=== PATIENT | female | born 1960 | race Caucasian/White ===

== ENCOUNTER → 2017-07-25 10:05 | Outpatient (CLI) | payer MEDICAID, SELFPAY ==
--- NOTE | 2017-07-25 10:14 | STE_ITS ---
Reason For Study: HUGO Stress Results Protocol: Dobutamine Maximum Predicted HR: 165 bpm Target HR: 140 bpm% Maximum Predicted HR: 85 % DurationHeart Rate Stage (mm:ss) (bpm) BPDos e Comment BASELINE 83 135/78 .3 CC DEFINITY STAGE 1 3:00 86 144/9010.00.2 CC DEFINITY STAGE 2 3:00 11 6 171/7320.00 STAGE 3 3:00 13 3 130/7730.00 STAGE 4 1:34 14 1 / 40. 00.2CC DEFINITY,.25 MG ATROPINE RECOVERY 104 122/7 5 .1CC DEFINITY Stress Duration: 10:34 mm:ss Maximum Stress HR: 141 bpm Baseline Echocardiogram Findings Stress Echo Wall motion Data Resting WMIntermediate WMStress WM Resting Wall Motion Wall Motion Int. Wall Motion Stress All segments Normal. All segments Hyperkinetic. All segments Hyperkinetic. Ejection Fraction 55 %. Ejection Fraction 65 %. Ejection Fraction 75 %. Stress Results Arrhythmias: Rare PVCs during recovery Stopped secondary to: Target heart rate achieved. EKG Data The baseline ECG displays normal sinus rhythm. Peak pharmacologic ECG: No obvious ECG changes. Symptoms with Stress No c/o chest pain during pharmacologic infusion / recovery. Interpretation Summary Negative (Adequate) Dobutamine Stress Echocardiogram Ordering Physician: Nikolai Heart Referring Physician: LESLYE Heart M.D. Performed By: Aimee Nixon RDCS
== END ==
PROVIDERS: Family Provider Family Medicine; PCP Family Medicine; Visit Provider Family Medicine
DX: R06.09 Other forms of dyspnea (principal)
CPT/HCPCS: 93017; 93350; J7030; Q9957; A4216; C8928

== ENCOUNTER 2017-11-29 16:36 | Emergency (ER) | payer MEDICAID, SELFPAY ==
[2017-11-29 16:36] VITALS: BP 124/78; PULSE 76; RESP 15; TEMP 37.2; O2SAT 93; O2SAT 96; BMI 44.9
--- NOTE | 2017-11-29 16:39 | RAD_ITS ---
STUDY: X-RAY CHEST REASON FOR EXAM: Female, 56 years old. Shortness of breath TECHNIQUE: Frontal view of the chest COMPARISON: 04/25/2017 FINDINGS: The lungs are clear. There are no pleural effusions. There is no pneumothorax. The heart is normal in size. The visualized osseous structures are within normal limits. RAD/Chest 1 View (Portable) IMPRESSION: No acute thoracic pathology. Electronically Signed: Murray Yousif, at 17:48 EDT Tel , Service support ,
--- NOTE | 2017-11-29 16:39 | EKG12_ITS ---
Test Reason : SOB Blood Pressure : / mmHG Vent. Rate : 063 BPM Atrial Rate : 063 BPM P-R Int : 190 ms QRS Dur : 106 ms QT Int : 422 ms P-R-T Axes : 053 091 076 degrees QTc Int : 431 ms Normal sinus rhythm Normal ECG Confirmed by BIPIN WEIR, EDWIN ([id number]), dictionary editor VIVIAN CANDELARIA ([id number]) on 12/03/2017 3:46:45 PM Referred By: Lowell Herrera Confirmed By:EDWIN VOSS MD
[2017-11-29 16:41] VITALS: O2SAT 95
[2017-11-29] MEDS: MethylPREDNISolone 125 MG/2 ML Vial IV (16:50)
[2017-11-29 16:52] VITALS: PULSE 78; RESP 20
[2017-11-29] MEDS: Ipratropium/Albuterol Sulfate 3 ML AMPUL.NEB INHALATION (16:52)
[2017-11-29] MEDS: Albuterol 2.5 MG/3 ML VIAL.NEB. INHALATION ×2 (16:52)
--- NOTE | 2017-11-29 16:55 | ED.DCSUM_ITS ---
- ER Visit Summary Date of Service: 11/29/17 Chief Complaint: Cough, shortness of breath History of Present Illness: The patient is a 56 F Zentz to the emergency department with cough and shortness of breath. Patient has a history of reactive airway disease. She is unsure if it COPD or asthma. She does have a significant smoking history. She states over the past 24 hours, she has had some increased wheezing. She has been using her nebulizer with little relief. She denies any chest pain or chest tightness. She denies any hemoptysis. She has no history of pulmonary embolus. She does currently still smoke. Last time that she was on prednisone was approximately 4 weeks ago. Physical Examination: Vital signs reviewed General: Well-nourished, well-developed Head: Normocephalic, atraumatic Eyes: Pupils equal and reactive, extraocular muscles intact Neck, supple, no lymphadenopathy Heart: Regular rate and rhythm Respiratory: No distress, wheezing in all blackman Abdomen: Soft, nontender, nondistended, no peritoneal signs Back: Nontender Extremities: Nontender, no edema, no cords Skin: Normal color no rash Neuro: Alert and oriented, no focal or lateralizing deficits Test Results: [] Emergency Department Course and Treatment: EKG was obtained on patient arrival. There was no evidence of acute ischemic change. Her chest x-ray shows no evidence of pneumonia, volume overload, or enlarged cardiac silhouette. Patient was given IV Solu-Medrol, nebulized breathing treatments, and on reevaluation her aeration had markedly improved. She is resting comfortably. She was able to ambulate without hypoxia. She also had no tachypnea. The patient had some increasing sputum. I do feel that she likely has underlying COPD. She will be treated with steroids and antibiotics. Given the marked improvement, I do feel that she is safe for outpatient therapy. She is comfortable with this plan of care. Patient will be discharged home. Treatment Plan: [] Disposition: Discharge Impression: 1. COPD exacerbation This note was generated with [facility] dictation software. It may contain incorrect words, spelling, and punctuation that were not noted in review of the chart prior to signing ED Disposition - Plan for ED Patient: Chief Complaint: Shortness of Breath Instructions: ED Upper Resp Infec Abx Tx Prescriptions: Azithromycin [Zithromax] 250 mg PO DAILY #4 tab Prednisone 10 mg PO UD #33 tab Referrals: Nikolai Heart III, MD [Primary Care Provider] -
[2017-11-29 16:58] LABS: Absolute Lymphocyte Count 2.66 X10^3/ul (0.83-4.51); Absolute Neutrophil Count 3.6 X10^3/uL (2.0-7.7); Basophil# 0.03 X10^3/uL; Basophil% 0.4 % (0-1); Hematocrit 43.5 % (37-47); Hemoglobin 14.9 g/dl (12.0-15.0); Lymphocyte # 2.66 X10^3/ul (4.0); Mean Corp Hgb Conc 34.3 g/gl (32-36); Mean Corpuscular Hgb 31.2 pg (27.0-32.0); Monocyte# 0.55 X10^3/uL; Monocyte% 8.1 % (0-10); Neutrophil # 3.56 X10^3/uL (2.7-7.7); Neutrophil % 52.2 % (47-70); Platelet Count 168 K/mm3 (150-450); RBC Distribution Width CV 13.6 % (11.6-14.6); RBC Distribution Width SD 45.4 fl (35.1-43.9); Red Blood Count 4.78 M/mm3 (4.2-5.4); White Blood Count 6.8 K/mm3 (4.4-11.0)
[2017-11-29 16:59] LABS: POSITIVE COUNT NO; POSITIVE DIFFERENTIAL NO; POSITIVE MORPHOLOGY NO
[2017-11-29 17:47] VITALS: BP 156/71; PULSE 70; RESP 21; O2SAT 95
[2017-11-29 17:47] LABS: Anion Gap 7 (5-15); BUN 16 mg/dL (7-18); Calcium,Total 8.5 mg/dL (8.5-10.1); Chloride 107 mmol/L (98-107); EST Glomerular Filtration Rate 93 mL/min (>60); Est Glom Filt Rate - Afr Amer 112 mL/min (>60); Estimated Creatinine Clearance 85.01 ml/min; Glucose 98 mg/dL (74-106); Potassium 3.3 mmol/L (3.5-5.1); Sodium Level 141 mmol/L (136-145)
[2017-11-29] MEDS: Azithromycin 250 MG Tablet 500 MG PO (17:56)
== END 2017-11-29 17:57 | disposition home or self-care (01) ==
LOC: ED 16:44
PROVIDERS: Emergency Provider Emergency Medicine; Family Provider Family Medicine; PCP Family Medicine
DX: J44.1 Chronic obstructive pulmonary disease with (acute) exacerbation (principal); E66.9 Obesity, unspecified; I10 Essential (primary) hypertension; Z72.0 Tobacco use; F41.9 Anxiety disorder, unspecified
CPT/HCPCS: 71045; 80048; 84484; 85025; 93005; 94640; 96374; 99285; A4216

== ENCOUNTER → 2018-09-30 07:33 | Outpatient (CLI) | payer MEDICAID, SELFPAY ==
--- NOTE | 2018-09-30 | BRBX_PTH ---
PATIENT: SANTY RAZA LOC: [facility] U#:[id number] AGE/SX: 64/F ROOM: RE09/30/[address]: Dr. Bret Hamilton MD : 1960 BED: DIS: SPEC #: [id number] RECD: 09/30/18 14:23 STATUS: BHAKTI REAngel #: [id number] NATHALIA: 09/30/18 00:[address]: Bret Hamilton DEPT: SURGICAL PATHOLOGY RECD BY: Barrett Kirk ENTERED: 09/30/18 14:23 SP TYPE: BREAST BX OTHR DR: Dr. Nikolai Heart III, MD Tissues: Left breast, NOS Procedures: Surgery Specimen Level IV HEADER OPERATION: Left breast stereotactic needle core biopsy PRE-OP DIAGNOSIS: Calcifications left breast superior lateral anterior depth TISSUE SUBMITTED: Left breast core tissue ISCHEMIC TIME: 1 minute FIXATION TIME: 10 hours MICROSCOPIC DIAGNOSIS Left breast, superior lateral anterior depth calcification, stereotactic needle core biopsy: Fragments of benign breast tissue with focal fat necrosis, fibrosis, chronic inflammation and dystrophic calcifications. Negative for atypia or malignancy. DAVID:odalys 10/01/18 COMMENT Correlation with clinical, radiologic findings and appropriate follow up are necessary. MICROSCOPIC DESCRIPTION Slides are reviewed. GROSS DESCRIPTION Received is one container labeled with the patient's name and not further designated. The specimen consists of multiple elongated fragments of knowles-yellow fibroadipose tissue that in aggregate measure 3 x 2.5 x 0.3 cm. The entire specimen is submitted in one cassette. / DAVID:odalys 09/30/18 TC:5 CPT: 19898
--- NOTE | 2018-09-30 09:26 | PCM.HP.BLA ---
History and Physical Date of Admission: 09/30/18 HISTORY AND PHYSICAL - BREAST COMPLAINT ? Maria Guadalupe Moffett 1960 ? ? REFERRING PHYSICIAN: ??Nikolai Heart III, MD ? CHIEF COMPLAINT:???Left breast microcalcifications ? HPI: The patient is a 57 year old female with a complaint of?an abnormal mammogram. ?The patient had an initial screening?mammogram on August 25, 2018 with follow-up left diagnostic mammogram on September 09, 2018 which demonstrated : ? IMPRESSION: SUSPICIOUS FINDING - BIOPSY SHOULD BE CONSIDERED The multiple grouped pleomorphic calcifications in the left breast are suspicious of malignancy. ?A stereotactic biopsy is recommended. SUMMARY: The finding and recommendation for biopsy was discussed with the patient following the exam. The patient is scheduled for surgical consultation with Dr. Hamilton on 09/11/18 at 3:00pm. Gio hernadez/arnold:09/09/2018 09:13:10 Grease Renderer: Arnold Transcribe Date/Time: Sep 09 2018 ?8:20A Dictated by: GIO VILLAR MD This examination was interpreted and the report reviewed and electronically signed by: GIO VILLAR MD on Sep 09 2018 ?9:13AM ?EST ? ? Results-Findings ? * * *Final Report* * * DATE OF EXAM: Sep 09 2018 ?8:20AM ? WRW ??[id number] ?- ?[facility] ?/ PROCEDURE REASON: Inconclusive mammogram ? * * * * Physician Interpretation * * * * RESULT: #[id number] - [facility] UNILATERAL LEFT DIGITAL DIAGNOSTIC MAMMOGRAM WITH CAD: 09/09/2018 HISTORY: Left diagnostic // abnormal mammogram. RESULT: TECHNIQUE: The study was acquired using full field digital technology and interpreted from soft copy. Current study was also evaluated with a Computer Aided Detection (CAD). Comparison is made to exams dated: ?08/25/2018 mammogram, 07/23/2017 mammogram, and 07/21/2015 mammogram - [facility]. ?There are scattered fibroglandular elements in left breast. There are multiple grouped pleomorphic calcifications in the left breast superior lateral quadrant anterior depth. ??These span 0.5cm in greatest dimenstion and are new from prior mammograms. There are changes of prior reduction mammoplasty and these calcifications could be related to fat necrosis however malignant calcifications are not excluded. No other significant masses or calcifications are seen in the breast. ? ? The patient denies a history of breast masses. ?She does??perform a self breast exam routinely. ?She notes no skin changes. ?She denies nipple discharge. ?She notes no axillary masses. ?She notes no family history of breast problems. ?She notes no significant breast trauma or breast difficulties in the past. ?She did have bilateral breast reduction in 2016. ? ? The patient is being seen by me today at the request of ?for my opinion and advice regarding left breast microcalcifications.? ? PAST?MEDICAL?HISTORY PAST MEDICAL HISTORY Diagnosis Date ? Allergic rhinitis, cause unspecified ? ? Central perforation of tympanic membrane, bilateral ? ? Essential hypertension, benign ? ? Hypothyroidism 09/26/2015 ? Mixed conductive and sensorineural hearing loss ? ? Obstructive sleep apnea ? ? Other anxiety states ? ? Perforated tympanic membrane 03/29/2011 ? Snoring ? ? Synovitis and tenosynovitis, unspecified ? ? Tobacco abuse 03/23/2012 ? PAST?SURGICAL?HISTORY PAST SURGICAL HISTORY Procedure Laterality Date ? INCISION EARDRUM,ASPIR,GEN ANESTH ? ? ? Myringotomy/tubes ? LIGATE FALLOPIAN TUBE ? ? ? Tubal ligation ? REDUCTION OF LARGE BREAST ? 04/23/2016 ? ? ? CURRENT?MEDICATIONS ? Current Outpatient Medications: albuterol (PROVENTIL) 2.5 mg /3 mL (0.083 %) nebulizer solution Use 3 mL via nebulizer every 4 hours as needed for Wheezing/Shortness of Breath. Use over 5-15minutes. Disp: 1 Package Rfl: 2 furosemide (LASIX) 20 mg tablet Take 1 tablet by mouth once daily. Disp: 30 tablet Rfl: 11 beclomethasone (QVAR REDIHALER) 80 mcg/actuation inhaler Inhale 1 Puff as instructed twice daily. Disp: 1 Inhaler Rfl: 11 lisinopril (ZESTRIL, PRINIVIL) 5 mg tablet Take 1 tablet by mouth once daily. Disp: 90 tablet Rfl: 1 amitriptyline (ELAVIL) 25 mg tablet Take 1 tablet by mouth daily at bedtime. Disp: 90 tablet Rfl: 1 Nebulizer 1 Each as needed. NEBULIZER TUBING AND SUPPLIES. ?DX: CHRONIC BRONCHITIS J41.1, WHEEZING R06.2. [phone] Disp: 1 Each Rfl: 11 Nebulizer 1 Device every 4 hours as needed. NEBULIZER FOR HOME USE. ?DX: chronic bronchitis ?J41.1tubing and supplies for nebulizer Disp: 1 Device Rfl: 0 citalopram (CELEXA) 20 mg tablet take 1 tablet by mouth once daily Disp: 90 tablet Rfl: 1 tiZANidine (ZANAFLEX) 4 mg tablet Take 1 tablet by mouth twice daily. Disp: 180 tablet Rfl: 1 etodolac (LODINE) 400 mg tablet Take 1 tablet by mouth twice daily. Disp: 180 tablet Rfl: 1 lansoprazole (PREVACID) 15 mg capsule take 1 capsule by mouth once daily Disp: 90 capsule Rfl: 4 umeclidinium (INCRUSE ELLIPTA) 62.5 mcg/actuation inhaler Inhale 1 Puff as instructed once daily. Inhale one puff once daily. DO NOT CLICK OPEN UNTIL READY FOR DOSE Disp: 1 Each Rfl: 11 levothyroxine (SYNTHROID) 125 mcg tablet take 1 tablet by mouth every morning ON AN EMPTY STOMACH FOR THYROID Disp: 90 tablet Rfl: 2 cetirizine (ZYRTEC) 10 mg tablet Take 1 tablet by mouth once daily. Disp: 30 tablet Rfl: 3 Docusate Sodium (DOK) 100 mg tab Take 100 mg by mouth twice daily as needed. Disp: Rfl: albuterol HFA (VENTOLIN HFA) 90 mcg/actuation inhaler Inhale 2 Puffs as instructed every 4 hours as needed for Wheezing/Shortness of Breath. Disp: 3 Inhaler Rfl: 1 ondansetron orally disintegrating (ZOFRAN ODT) 4 mg disintegrating tablet Take 1 tablet by mouth every 6 hours as needed for Nausea/Vomiting. Disp: 10 tablet Rfl: 1 fluticasone (FLONASE) 50 mcg/actuation nasal spray Use 2 Sprays in each nostril once daily. Rinse mouth after use. Disp: 1 Bottle Rfl: 11 COMPOUNDED PRESCRIPTION Nebulizer for albuterol every fours as neededICD: R06.2 Disp: 1 Device Rfl: 0 CPAP autoCPAP 5-15 cmH2O, mask, tubing, filters, heated humidity, lifetime supplies. Dx: TRINI Disp: 1 Device Rfl: 0 ? No current facility-administered medications for this visit.? ? ALLERGIES:?Codfish [Other]; Doxycycline Monohydrate; Hctz [Other]; Levaquin [Levofloxacin]; Peanuts ? PERSONAL HISTORY:? SOCIAL?HISTORY Social History ??Socioeconomic History ?Marital status: ?Spouse name: Not on file ?Number of children: Not on file ?Years of education: Not on file ?Highest education level: Not on file ??Social Needs ?Financial resource strain: Not on file ?Food insecurity - worry: Not on file ?Food insecurity - inability: Not on file ?Transportation needs - medical: Not on file ?Transportation needs - non-medical: Not on file ??Occupational History ?Not on file ??Tobacco Use ?Smoking status: Former Smoker ?Packs/day: 0.50 ?Types: Cigarettes ?Quit date: 09/22/2017 ?Years since quittin.9 ?Smokeless tobacco: Never Used ??Substance and Sexual Activity ?Alcohol use: No ?Drug use: No ?Sexual activity: Not on file ??Other Topics ?Concerns: ?Not on file ??Social History Narrative ?grand daughter Colby is chunky monkey ?daughter Deeanne ?Merry ?? ? FAMILY HISTORY:? FAMILY?HISTORY FAMILY HISTORY Problem Relation Age of Onset ? Coronary Artery Disease Mother ?PE ? Asthma Mother ? ? Multiple Sclerosis Mother ? ? Coronary Artery Disease Sister ? ? Coronary Artery Disease Brother ? ? None Brother ? ? ? REVIEW OF SYMPTOMS: ??The review of systems data was entered by the nurse and reviewed by me ? Nursing Notes: Josh Orozco LPN ?09/11/2018 ?2:58 PM ?Signed REVIEW OF SYSTEMS: ?General:???The patient NOTES fatigue, denies weight loss, NOTES weight gain, NOTES feeling hot, and denies feelings of cold. ?Eyes: ?The patient denies glaucoma, denies eye injury/surgery, wears glasses or contacts. ?Ear/Nose/Throat: ?The patient denies allergies, NOTES hayfever, NOTES ear infections, and denies bloody noses. ?Cardiovascular: ?The patient denies chest pain, denies heart disease, NOTES high blood pressure,denies cardiac stent, denies prior heart attack, denies irregular heart beat, NOTES high cholesterol, ?denies poor circulation, denies heart failure, other cardiac issues, denies claudication, denies cold feet, denies peripheral arterial stent. ?Respiratory: ?The patient denies tuberculosis, denies pneumonia, NOTES frequent cough, denies pulmonary embolism, NOTES shortness of breath, and denies coughing up blood. ?Gastrointestinal: ?The patient denies difficulty swallowing, NOTES acid reflux, denies ulcers, denies vomiting, denies jaundice/hepatitis, denies gallbladder problems, denies black or tarry stools, denies hemorrhoids, denies bleeding from rectum, denies diverticulitis, denies constipation, denies diarrhea, denies loss of stool control, and denies hernias. ?Kidney/Bladder: ?The patient denies kidney stones, denies urine infections, and denies bloody urine. ?Skin: ?The patient denies a history of skin cancer, denies bleeding/changing moles, and denies a history of skin rash. ?Neurologic: ?The patient denies a history of epilepsy/convulsions, denies headaches, denies head/spinal injuries, and denies stroke/TIA. ?Psychiatric: ?The patient denies psychiatric medications, NOTES depression, and denies voices, denies substance abuse. ?Endocrine: ?The patient NOTES thyroid disorders, denies diabetes, and denies hormonal problems. ?Hematologic: ?The patient denies a history of bruising, denies bleeding, and denies anemia, denies blood clots. ?Infections: ?The patient denies a history of measles and mumps, denies rheumatic fever, and denies sexually transmitted diseases. ?Musculoskeletal: ?The patient NOTES back pain/injury, NOTES back problems, denies sciatica, denies knee/foot trouble, denies arthritis, or denies gout. ? ? When was patient's last Mammogram screening? 09/01 ? ?Last Colonoscopy: ?N/A ? Josh Orozco LPN ? PHYSICAL EXAMINATION: ? General: ?The patient is 57 year old female, well nourished, well hydrated in no acute distress. ?The patient is oriented to time, place, and person. ? VITALS:?Blood pressure 154/92, pulse 103, temperature 36.6 ?C (97.8 ?F), temperature source Temporal Artery, height 167.6 cm (5' 6), weight 127.2 kg (280 lb 6.4 oz), last menstrual period 09/14/2013, SpO2 94 %.?Body mass index is 45.26 kg/m?.? ? HEENT: ?Normal cephalic, ataumatic, pupils are equally round, sclera are anicteric, mucous membranes are moist, oropharynx is clear. ?Neck has no masses, asymmetry or lymphadenopathy. ?Thyroid is unremarkable. ? Respiratory: ?Clear to auscultation and percussion. ?Normal respiratory excursion and pattern. ? Cardiac: ?Examination is regular rate and rhythm. ? Abdominal exam: ?Soft, nontender, ?with no palpable masses. ?No hepatosplenomegaly. ?No palpable hernias. ? Rectal exam: ?exam deferred Extremities: ?no clubbing, cyanosis or edema. ?No adenopathy. ? Breast: ?Visual inspection reveals no retractions, nipple inversion, or skin changes. ?Palpation of the right breast reveals no dominant or suspicious masses. ?Palpation of the left breast reveals no dominant or suspicious masses. ?Axillary exam demonstrates no suspicious masses in either the left or right axilla. ?There is no nipple discharge expressed from either the left or right breast. ? LABORATORY VALUES: As Noted ? RADIOLOGIC STUDIES: ?As Noted ? Assessment ? IMPRESSION: Left breast microcalcifications ? PLAN:??I plan to perform a?stereotactic biopsy of the left breast. ?The planned surgical procedure was discussed extensively with the patient. ?The risks, benefits, anticipated outcomes and possible complications were mentioned. ?My staff has also explained the procedure in understandable terms and the patient was given the option to take printed material concerning the planned procedure. ?The patient had the opportunity to ask questions concerning the planned procedure. ?The patient freely consents to the planned procedure. ? Diagnoses:?(R92.8) Abnormal finding on breast imaging ?(primary encounter diagnosis) ? My findings have been communicated to Dr.??Nikolai Heart III MD?via shared medical record. ?This note will be forwarded to Dr. Nikolai Heart III MD. ? Return to Clinic: The patient is instructed to follow-up with me?after the testing has been completed. ? Bret Hamilton MD
--- NOTE | 2018-09-30 09:28 | OP.PCM_ITS ---
Report of Operation Date of Procedure: 09/30/18 Pre-Operative Diagnosis: left upper outer breast microcalcifications Post-Operative Diagnosis: left upper outer breast microcalcifications Surgery/Procedure Performed:: left stereotactic breast biopsy with vacuum- assisted core needle biopsy, specimen radiograph and marker placement Type of Anesthesia:: Local Specimen's removed: left breast tissue Description of Procedure: The patient was brought to the stereotactic suite and informed of the plan course of events. The left breast was positioned in the true lateral to medial position on the [facility] stereotactic table. Mammographic image demonstrated the area of abnormality to be located in the center of the radiograph. Stereotactic images were then obtained which demonstrated good positioning of the abnormality for biopsy with good stroke cris parameters. The breast was cleaned with Betadine area did one percent lidocaine was used to anesthetize the skin and a small stab incision made. An 8-gauge mammotome needle was placed into the pre- fire position. Stereotactic images demonstrated good positioning around the planned biopsy site. Local anesthetic injected deeply in the breast. The needle was deployed. Post deployment images demonstrated good positioning of the planned biopsy site. Multiple vacuum-assisted samples were obtained and [id number] fashion. Specimen radiograph demonstrated micro-calcifications in the sample. A gel marker clip was deployed. Post biopsy images demonstrated good position of the clip relative the biopsy cavity. The breast was removed f rom compression. Steri-Strips and a dressing applied. Post procedure mammogram images were obtained. - Admit VTE Documentation VTE Present on Admission: No VTE Mechan Device Prophylaxis: SCD's VTE Pharm Prophylaxis ordered?: No
== END ==
PROVIDERS: Family Provider Family Medicine; PCP Family Medicine; Referring Provider Surgery; Visit Provider Surgery
DX: R92.1 Mammographic calcification found on diagnostic imaging of breast (principal); N60.32 Fibrosclerosis of left breast; J30.9 Allergic rhinitis, unspecified; I10 Essential (primary) hypertension; E03.9 Hypothyroidism, unspecified; G47.33 Obstructive sleep apnea (adult) (pediatric); H90.8 Mixed conductive and sensorineural hearing loss, unspecified; Z87.891 Personal history of nicotine dependence
CPT/HCPCS: 19081; 88305; J7050

== ENCOUNTER → 2019-07-20 06:27 | Outpatient (CLI) | payer MEDICAID, SELFPAY ==
--- NOTE | 2019-07-20 18:06 | STRESSREP_ITS ---
Stress Test Report Date: 07-20-2019 Procedure: Pharmacologic stress nuclear imaging study Indications: Chest pain; shortness of breath/dyspnea on exertion Consent: Per the patient Procedure: The patient underwent pharmacologic (Regadenoson) evaluation with a peak heart rate of 96 beats per minute (58 %predicted maximal heart rate) and a peak blood pressure of 130/78 mmHg. The baseline ECG demonstrated normal sinus rhythm. The peak pharmacologic ECG demonstrated no obvious ECG changes. There were no cardiac dysrhythmias pretest, during pharmacologic infusion, or recovery. There was no complaint of chest discomfort during pharmacologic infusion or recovery. The examination was discontinued secondary to completion of protocol. Impression: 1. Pharmacologic (Regadenoson) evaluation 2. Peak pharmacologic ECG with no obvious ECG changes. 3. There were no cardiac dysrhythmias pretest, during pharmacologic infusion, or recovery. 4. Nuclear images pending Myocardial perfusion imaging study: Technique: The patient was injected with 10.7 millicuries of technetium 99m Cardiolite and subsequently rest SPECT Cardiolite nuclear imaging was obtained in the horizontal long, vertical long, and short axis views. The patient underwent pharmacologic (Regadenoson) evaluation with a peak heart rate of 96 beats per minute (58 % percent predicted maximal heart rate) and a peak blood pressure of 130/78 mmHg. The patient was injected with 44.9 millicuries of technetium 99m Cardiolite and subsequently stress SPECT Cardiolite nuclear imaging was obtained in the horizontal long, vertical long, and short axis views. A gated Cardiolite study at peak stress was obtained. Interpretation: Rest and stress SPECT Cardiolite nuclear imaging status post realignment, normalization, and attenuation correction demonstrate diminished myocardial perfusion/tracer uptake in portions of the mid to distal anterior, distal anteroseptal, distal anterolateral, and anterior apical segments without significant change between rest and stress. There is end systolic thickening and brightening. The gated Cardiolite study demonstrates myocardial thickening and inward wall motion. The reported LVEF is 71 %. Impression: 1. Rest and stress SPECT Cardiolite nuclear imaging demonstrate myocardial perfusion changes appearing compatible with the effects of soft tissue attenuation/artifact, although an area of previous myocardial injury/infarction involving portions of the mid to distal anterior, distal anteroseptal, distal anterolateral, and anteroapical segments cannot necessarily be excluded with no myocardial perfusion changes considered diagnostic for associated stress-induced myocardial ischemia. 2. The gated Cardiolite study reports an LVEF of 71 %. This note was generated with [employer] software. It may contain incorrect words, spelling, and punctuation that were not noted in checking the note before signing.
== END ==
PROVIDERS: PCP Family Medicine; Referring Provider Family Medicine; Visit Provider Family Medicine
DX: R07.9 Chest pain, unspecified (principal); R06.09 Other forms of dyspnea
CPT/HCPCS: 78452; 93017; A9500; A4216; J2785

== ENCOUNTER 2019-12-05 09:50 | Emergency (ER) | payer MEDICAID, SELFPAY ==
[2019-12-05 09:52] VITALS: BP 131/71; PULSE 81; RESP 17; TEMP 36.4; O2SAT 92; BMI 45.1
--- NOTE | 2019-12-05 10:15 | ED.DCSUM_ITS ---
History of Present Illness Chief Complaint: Shortness of Breath Informant: Patient Onset: Days - 2 Activity at onset: Exertion, Light Activity Timing: Continuous Quality: Dyspnea on exertion, Wheezing Current Severity: Mild Maximum Severity: Severe Worsened by: Exertion. 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 Negative for: Chills, Fever, Sore throat, Sweats Chest Pain: Tightness Narrative: Patient has a history of chronic bronchitis, quit smoking about 1 year ago, feels like these are symptoms consistent with that except usually she gets a cough that is productive, now she cannot get anything up. She feels like if she did it might help. Lots of wheezing and tightness. No history of heart disease. She presents during the national coronavirus emergency declaration, she has had no contact with anyone that she knows of with COVID-19, but her currently has pneumonia and he tested negative for it. She has had no increase in her chronic lower extremity edema. She has had some soreness in her neck and upper back/shoulders, but no stiffness, mental status changes, sore throat, earache. 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 Denies any otorrhea. - Past Medical History (1) Chronic bronchitis Status: Chronic (2) Anxiety Status: Chronic (3) GERD (gastroesophageal reflux disease) Status: Chronic (4) Hypothyroidism Status: Chronic (5) Hypertension Status: Chronic Past Medical History - Allergies and Home Meds Allergies/Adverse Reactions: Allergies peanut Allergy (Verified 12/05/19 09:51) Itching levofloxacin [From Levaquin] Adverse Reaction (Verified 12/05/19 09:51) Other COD FISH Allergy (Uncoded 12/05/19 09:51) Itching Primary Care Physician: Nikolai Heart III, MD [Primary Care Provider] - 3-5 Days Lives: Spouse/ Significant Other Smoking Status: Former smoker Review of Systems General: Reports: Malaise. Denies: Chills, Fever, Sweats Eyes: Denies: Visual changes - bilaterally, Diplopia ENT: Reports: Rhinorrhea. Denies: Bilateral ear pain, Sore throat Cardiovascular: Reports: Chest pain. Denies: Palpitations Respiratory: Reports: Dyspnea, Cough, Dyspnea on exertion. Denies: Sputum, Orthopnea Gastrointestinal: Reports: Diarrhea - Loose, more than usual yesterday, not watery, melanotic, bloody. Denies: Abdominal pain, Nausea, Vomiting, Melena, Hematochezia Genitourinary: Denies: Dysuria, Hematuria, Frequency Musculoskeletal: Reports: Back pain, Swelling. Denies: Extremity Pain Skin: Denies: Rash, Wounds Neurological: Reports: Headache. Denies: Weakness, Numbness Physical Exam Vital Signs/Narrative: Vital Signs Temp Pulse Resp BP Pulse Ox 12/05/19 09:52 97.6 F L 81 17 131/71 H 92 Inital Vital Signs reviewed: Yes General: Well nourished, Well developed, Obese, No Acute Distress - Well-appearing, conversive in full sentences Head: Normocephalic, Atraumatic Eyes: Perrl, EOMI ENT: Moist mucous membranes, No rhinorrhea, TM's clear - With perforations bilaterally. Chronic-appearing. No otorrhea.. Negative for: Sinus tenderness Neck: Supple, Nontender, No lymphadenopathy. Negative for: No JVD Cardiovascular: Regular rate, Regular rhythm, No murmurs, Normal S1, Normal S2 Respiratory: No distress, Chest nontender, Wheezing - Throughout expiration, bilaterally and symmetrically. Negative for: Rales, Rhonchi Abdomen: Soft, Nontender, Nondistended, Normal bowel sounds Back: Nontender, Normal Inspection Extremities: Nontender, Edema - 1+ to mid de leon bilaterally and symmetrically. Negative for: Calf Tenderness Skin: Normal color, No rash, No Trauma Neurological: Alert, Oriented x3, Cranial nerves II-XII grossly intact, Normal Strength, Normal Sensation, Normal Gait Psychological: Normal affect, Normal Mood Diagnostic/Tx/Re-eval Clinical Impression(s) from Imaging Studies Chest X-Ray 12/05/19 11:04 IMPRESSION: No acute cardiopulmonary pathology and no significant interval change when compared to 11/29/2017. Electronically Signed: Rojelio Trinh MD at 11:21 EDT , Service support , Treatment - Dyspnea: Albuterol, Atrovent, Steroid Repeat Evaluation: Improved - Medical Decision Making I think the pretest probability of this patient having COVID-19 are relatively low, however given her underlying conditions I was able to approve testing through the [facility] laboratory, patient is not hypoxic, not in distress, and not currently septic or critically ill clinically. I do not anticipate her being admitted. Therefore the swab will be sent as an outpatient to the [facility] lab. Her chest x-ray shows no acute pneumonia, and she is improved after aerosols, including her chest tightness. For this reason, and her history, I suspect this is all pulmonary and not cardiac, and I do not think cardiac work-up is emergently necessary at this time. She is started on prednisone, placed on prophylactic antibiotics, advised to follow-up as an outpatient. She is comfortable with this overall plan. ED Disposition - Plan for ED Patient: Disposition: Home or Assisted Living Diagnosis: Acute exacerbation of chronic bronchitis Instructions: ED COPD Flare Prescriptions: Prednisone [Deltasone] 40 mg PO DAILY #10 tablet Doxycycline Hyclate 1 cap PO BID #20 capsule Referrals: Nikolai Heart III, MD [Primary Care Provider] - 3-5 Days Additional Instructions: You were tested for COVID-19, however it is sent to an offsite laboratory, and will likely take a couple days to come back. When the results return you should receive a call from the emergency department. Reference the pamphlet including with your discharge papers for information on setting up an online portal account to check the results yourself.
[2019-12-05 10:26] VITALS: PULSE 74; RESP 20; RESP 22; O2SAT 92
[2019-12-05] MEDS: Ipratropium/Albuterol Sulfate 3 ML AMPUL.NEB INHALATION (10:26)
[2019-12-05] MEDS: predniSONE 20 MG Tablet 40 MG PO (10:26)
[2019-12-05] MEDS: Albuterol 2.5 MG/3 ML VIAL.NEB. INHALATION (10:26)
--- NOTE | 2019-12-05 10:59 | CPS ---
x1 Albuterol given to pt. in ED as well
--- NOTE | 2019-12-05 11:04 | RAD_ITS ---
STUDY: X-RAY CHEST REASON FOR EXAM: Female, 58 years old. Dry cough w/ sob x 2 days. worsening. TECHNIQUE: PA and lateral views. COMPARISON: 11/29/2017. FINDINGS: The lungs are clear and expanded. There is no demonstrated pleural abnormality. Normal size heart. Normal mediastinum and roni. Normal visualized pulmonary arteries. Normal visualized aortic arch and descending thoracic aorta. Normal visualized thoracic spine. Normal visualized ribs, clavicles, and shoulders. There is no demonstrated abnormality of the visualized soft tissue structures of the upper abdomen. RAD/Chest PA and Lateral IMPRESSION: No acute cardiopulmonary pathology and no significant interval change when compared to 11/29/2017. Electronically Signed: Rojelio Trinh MD at 11:21 EDT , Service support ,
[2019-12-05 12:03] VITALS: BP 133/78; PULSE 70; RESP 20; TEMP 36.3; O2SAT 97
[2019-12-05 13:14] LABS: Probe Check PASS; Specimen Processing Control PASS
== END 2019-12-05 12:06 | disposition home or self-care (01) ==
LOC: ED 11:22
PROVIDERS: Emergency Provider Emergency Medicine; PCP Family Medicine
DX: J42 Unspecified chronic bronchitis (principal); E03.9 Hypothyroidism, unspecified; F41.9 Anxiety disorder, unspecified; I10 Essential (primary) hypertension; K21.9 Gastro-esophageal reflux disease without esophagitis; Z87.891 Personal history of nicotine dependence; Z88.1 Allergy status to other antibiotic agents
CPT/HCPCS: 71046; 87635; 94640; 99251; 99283; C9803; G2023; G0463; U0003

== ENCOUNTER 2020-08-29 10:58 | Outpatient (RCR) | payer MEDICAID, SELFPAY ==
[2020-08-29] MEDS: COVID-19 VACC, MRNA(PFIZER)/PF 30 MCG/0.3 ML SYRINGE IM (07:35)
[2020-09-19] MEDS: COVID-19 VACC, MRNA(PFIZER)/PF 30 MCG/0.3 ML SYRINGE IM (07:27)
== END 2020-11-21 23:59 ==
LOC: IMMUN 10:58
PROVIDERS: PCP Family Medicine; Visit Provider Family Medicine
DX: Z23 Encounter for immunization (principal)
CPT/HCPCS: 0001A; 0002A; 91300

== ENCOUNTER 2021-06-26 12:44 | Emergency (ER) | payer MEDICAID, SELFPAY ==
[2021-06-26 12:46] VITALS: BP 143/86; PULSE 91; RESP 16; TEMP 35.5; O2SAT 94; BMI 45.6
--- NOTE | 2021-06-26 13:43 | CT_ITS ---
STUDY: CT ABDOMEN AND PELVIS WITHOUT CONTRAST REASON FOR EXAM: Female, 60 years old. Right upper quadrant pain with bloating. RADIATION DOSAGE (If Supplied By Facility): CTDIvol = ( 24.18 ) mGy, DLP = ( 1153.67 ) mGycm TECHNIQUE: Transaxial images were obtained from the dome of the diaphragm to the symphysis pubis without oral contrast, and without intravenous contrast. Sagittal and coronal images were reconstructed. Individualized dose optimization techniques were used for this CT. COMPARISON: None. FINDINGS: Calcified bilateral hilar lymph nodes. Calcified granuloma in the medial posterior segment of the right lower lobe. Minimal increased linear markings at the left lung base suggestive of linear atelectasis and/or scarring. The visualized portions of the heart are within normal limits. There is decreased attenuation of the liver consistent with steatosis. Findings suggestive of sludge or small gallstones in the gallbladder lumen. There is a benign calcified granuloma of the spleen. Normal pancreas. Normal bilateral adrenal glands. Normal right kidney. Normal left kidney. Normal visualized stomach. Normal small intestine. Normal colon. The appendix is visualized and appears normal. There is scattered atherosclerotic calcification of the abdominal aorta, without a demonstrated aneurysm. Normal inferior vena cava. There is borderline retroperitoneal lymphadenopathy with enlarged nodes no greater than 10mm in the short axis diameter. Normal urinary bladder. There is a small umbilical hernia containing fat. The neck of the hernia measures 3 cm. Normal osseous structures. CT/Abdomen/Pelvis without Cont IMPRESSION: Umbilical hernia containing fat. The neck of the hernia measures 3 cm. Electronically Signed: Alexis Shi MD at 15:00 EST , Service support ,
--- NOTE | 2021-06-26 13:44 | EX.ED.DYSGE1 ---
HPI History of Present Illness Chief Complaint: Abd Pain Narrative Narrative: Patient presents with 4-day history of abdominal pain, it is bilateral mostly upper but she also has some lower quadrant abdominal pain. No fevers or chills. The pain does not radiate to her back. She has no dysuria hematuria or frequency. She has no flank pain. She has no chest pain or shortness of breath. Pain is constant and recently especially today she had anorexia. [facility] Medical History (Updated 06/26/21 @ 14:[address] Devendra Lackey MD) Anxiety Back pain Depression Hypertension Hypothyroid Home Medications alprazolam [Xanax] 1 mg PO DAILY PRN 09/22/15 [History Last Taken Unknown] lisinopril 10 mg PO DAILY 09/22/15 [History Last Taken Unknown] levothyroxine 100 mcg PO DAILY 05/13/16 [History Last Taken Unknown] fluticasone propionate 2 spray INHALATION DAILY 11/29/17 [History Last Taken Unknown] furosemide 20 mg PO DAILY 11/29/17 [History Last Taken Unknown] lansoprazole 15 mg PO DAILY 11/29/17 [History Last Taken Unknown] tizanidine 4 mg PO DAILY 11/29/17 [History Last Taken Unknown] albuterol sulfate 1 - 2 puff INHALATION Q4H PRN PRN 12/05/19 [History Last Taken Unknown] amitriptyline 25 mg PO DAILY 06/26/21 [History Last Taken Unknown] amlodipine 5 mg PO DAILY 06/26/21 [History Last Taken Unknown] bupropion HCl 150 mg PO DAILY 06/26/21 [History Last Taken Unknown] cholecalciferol (vitamin D3) 125 mcg PO DAILY 06/26/21 [History Last Taken Unknown] citalopram 20 mg PO DAILY 06/26/21 [History Last Taken Unknown] ondansetron HCl [Zofran] 4 mg PO Q6H PRN 06/26/21 [History Last Taken Unknown] Allergy/AdvReac Type Severity Reaction Status Date / Time peanut Allergy Itching Verified 06/26/21 12:46 levofloxacin [From Levaquin] AdvReac Other Verified 06/26/21 12:46 COD FISH Allergy Itching Uncoded 06/26/21 12:46 Surgical History (Updated 06/26/21 @ 14:06 by Lio Mullen) H/O tubal ligation History of placement of ear tubes Hx of breast reduction, elective Social History Smoking Status: Former smoker ROS ROS ED ROS Narrative Past medical history: Reviewed Medications: Reviewed Social history: Noncontributory Review of systems: All systems negative except as indicated General: No fever Eyes: No visual changes ENT: No upper airway congestion, normal voice Neck: No neck pain Cardiovascular: No chest pain Respiratory: No shortness of breath or cough Gastrointestinal: As in HPI Genitourinary: No dysuria Musculoskeletal: Denies myalgias no difficulty with ambulation Skin: No rash Neurological: No memory loss, confusion or any focal weakness Psych: No recent behavioral changes Hematologic: No easy bleeding or easy bruising EXAM Physical Exam Narrative Exam Narrative: Physical exam General: Well nourished, Well developed, No Acute Distress. She appears relatively comfortable. Head: Normocephalic, Atraumatic Eyes: Conjunctiva not pale ENT: Moist mucous membranes Neck: Supple, Nontender, No lymphadenopathy Cardiovascular: Regular rate, Regular rhythm Respiratory: No distress, CTA bilaterally Abdomen: Soft, pain is diffusely throughout the abdomen mostly in the left upper and right upper quadrant. Her Garcia's is negative. She has no specific pain at McBurney's. She has no guarding or rebound. Overall a benign exam Back: Nontender, Normal Inspection. Negative for: CVA tenderness Extremities: Nontender, No edema Skin: Normal color, No rash Neurological: Alert, Normal Strength, Normal Sensation Psychological: Normal affect Const Vital Signs: 06/26/21 12:46 06/26/21 14:02 Temperature 96 F L 97.1 F L Temperature Source Temporal Temporal Pulse Rate 91 81 Respiratory Rate 16 16 Blood Pressure 143/86 H 143/86 H Blood Pressure Mean 105 105 Pulse Ox 94 98 Oxygen Delivery Method Room Air Room Air MDM MDM MDM Narrative Medical decision making narrative: Patient has unremarkable labs, CT is pending as well as the urinalysis. I will turn the patient over to the oncoming ED physician. Lab Data Labs: Laboratory Results - last 24 hr 06/26/21 06/26/21 14:10 14:10 WBC 7.8 RBC 4.93 Hgb 15.5 H Hct 45.2 MCV 91.7 MCH 31.4 MCHC 34.3 RDW Std Deviation 45.9 H RDW Coeff of Benedict 13.6 Plt Count 242 MPV 11.5 Immature Gran % (Auto) 0.600 Neut % (Auto) 65.3 Lymph % (Auto) 25.6 [place]e % (Auto) 6.3 Eos % (Auto) 1.0 Baso % (Auto) 1.2 H Absolute Neuts (auto) 5.1 Absolute Lymphs (auto) 2.00 Nucleated RBC % 0 Sodium 140 Potassium 3.9 Chloride 102 Carbon Dioxide 28.0 Anion Gap 10 BUN 11 Creatinine 0.76 Estim Creat Clear Calc 74.61 Est GFR (MDRD) Af Amer 100 Est GFR (MDRD) Non-Af 83 BUN/Creatinine Ratio 14.5 Glucose 96 Calcium 9.1 Total Bilirubin 0.50 Direct Bilirubin 0.11 AST 17 ALT 37 Alkaline Phosphatase 85 Total Protein 7.5 Albumin 3.5 Globulin 4.0 Lipase 37 L Discharge Plan Triage Chief Complaint: Abd Pain ED Provider: Devendra Lackey Dx/Rx/DC Orders Clinical Impression: Abdominal pain Prescriptions: No Action alprazolam [Xanax] 1 MG tablet 1 mg PO DAILY PRN (Reason: Anxiety) RF: 0 lisinopril 10 MG tablet 10 mg PO DAILY RF: 0 levothyroxine 100 MCG tablet 100 mcg PO DAILY RF: 0 tizanidine 4 MG tablet 4 mg PO DAILY RF: 0 lansoprazole 15 MG capsule,delayed release(DR/EC) 15 mg PO DAILY RF: 0 furosemide 20 MG tablet 20 mg PO DAILY RF: 0 fluticasone propionate 1 SPRAY spray,suspension 2 spray inhalation DAILY RF: 0 albuterol sulfate 1 PUFF inhaler 1 - 2 puff inhalation Q4H PRN PRN (Reason: Sob &/Or Wheezing) RF: 0 bupropion HCl 150 mg Tablet Sustained-Release 12 Hr 150 mg PO DAILY RF: 0 ondansetron HCl [Zofran] 4 mg Tablet 4 mg PO Q6H PRN (Reason: Nausea) RF: 0 amlodipine 5 mg Tablet 5 mg PO DAILY RF: 0 citalopram 20 mg Tablet 20 mg PO DAILY RF: 0 amitriptyline 25 mg Tablet 25 mg PO DAILY RF: 0 cholecalciferol (vitamin D3) 125 mcg (5,000 unit) Tablet 125 mcg PO DAILY RF: 0 Primary Care Provider: Deloris Chavez NP Referrals: Haagen,Deloris WORKERS COMPENSATION CLAIMS EXAMINER, WORKERS COMPENSATION CLAIMS EXAMINER-C [Primary Care Provider] -
[2021-06-26 14:02] VITALS: BP 143/86; PULSE 81; RESP 16; TEMP 36.2; O2SAT 98
[2021-06-26 14:22] LABS: Absolute Neutrophil Count 5.1 X10^3/uL (2.0-7.7); Basophil# 0.09 X10^3/uL; Basophil% 1.2 % (0-1); Eosinophil# 0.08 X10^3/uL; Hematocrit 45.2 % (37-47); Hemoglobin 15.5 g/dL (12.0-15.0); Lymphocyte % 25.6 % (19-41); Mean Corp Hgb Conc 34.3 g/dL (32-36); Mean Corpuscular Hgb 31.4 pg (27.0-32.0); Mean Corpuscular Volume 91.7 fL (81-99); Mean Platelet Vol. 11.5 fl (6.2-12.0); Monocyte# 0.49 X10^3/uL; Monocyte% 6.3 % (0-10); NRBC Flagged by Analyzer 0 % (0-5); Neutrophil % 65.3 % (47-70); Platelet Count 242 K/mm3 (150-450); RBC Distribution Width CV 13.6 % (11.6-14.6); RBC Distribution Width SD 45.9 fl (35.1-43.9); Red Blood Count 4.93 M/mm3 (4.2-5.4); White Blood Count 7.8 K/mm3 (4.4-11.0)
[2021-06-26] MEDS: Morphine 4 MG/ML Syringe IV (14:37)
[2021-06-26] MEDS: Ondansetron 4 MG/2 ML Vial IV (14:37)
[2021-06-26 14:39] LABS: AST(SGOT) 17 U/L (15-37); Alanine Aminotransfer ALT/SGPT 37 U/L (13-56); Albumin, Serum 3.5 g/dL (3.2-5.0); Alkaline Phosphatase 85 U/L (45-117); Anion Gap 10 (5-15); BUN 11 mg/dL (7-18); BUN/Creat Ratio 14.5 RATIO (10-20); Bilirubin, Direct 0.11 mg/dL (0.00-0.30); Calcium,Total 9.1 mg/dL (8.5-10.1); Chloride 102 mmol/L (98-107); Creatinine, Serum 0.76 mg/dL (0.55-1.02); EST Glomerular Filtration Rate 83 mL/min (>60); Est Glom Filt Rate - Afr Amer 100 mL/min (>60); Estimated Creatinine Clearance 74.61 ml/min; Glucose 96 mg/dL (74-106); Lipase 37 U/L (73-393); Potassium 3.9 mmol/L (3.5-5.1); Protein, Total 7.5 g/dL (6.4-8.2); Sodium Level 140 mmol/L (136-145)
[2021-06-26 15:49] LABS: Bacteria 0 SEEN /hpf (None Seen); Mucous, Urine 0 SEEN /hpf (<or=2+); Red Blood Cells-Urine 0 SEEN /hpf (0-5)
[2021-06-26 15:56] LABS: Color, Urine Yellow (Yellow); Glucose, Dipstick Normal (Normal); Ketone-Dipstick 5 mg/dl (Negative); Leukocyte Esterase-Dipstick Negative /ul (Negative); Nitrite-Dipstick Negative (Negative); Occult Blood-Urine Negative /ul (Negative); Protein-Dipstick Negative (Negative); Urine Bilirubin Dipstick Negative (Negative); Urine Clarity Clear (Clear); Urine Urobilinogen Normal (Normal)
[2021-06-26 16:02] LABS: Squamous Epithelial Cells - UA 0-5 SEEN /hpf (5-10); White Blood Cells 0-5 SEEN /hpf (0-5)
[2021-06-26 16:37] VITALS: BP 108/60; PULSE 64; RESP 18; TEMP 36.2; O2SAT 94
== END 2021-06-26 16:38 | disposition home or self-care (01) ==
PROVIDERS: Emergency Medicine; Emergency Provider Emergency Medicine; PCP Registered Nurse; Visit Provider Emergency Medicine
DX: K80.50 Calculus of bile duct without cholangitis or cholecystitis without obstruction (principal); K42.9 Umbilical hernia without obstruction or gangrene; I10 Essential (primary) hypertension; E03.9 Hypothyroidism, unspecified; F32.A Depression, unspecified; F41.9 Anxiety disorder, unspecified; Z79.899 Other long term (current) drug therapy; Z87.891 Personal history of nicotine dependence
CPT/HCPCS: 74176; 80048; 80076; 81001; 83690; 85025; 96372; 96374; 96375; 99283; J7030; J2405

== ENCOUNTER 2021-06-26 20:13 | Emergency (ER) | payer MEDICAID, SELFPAY ==
[2021-06-26 20:14] VITALS: BP 129/61; PULSE 70; RESP 16; TEMP 35.8; O2SAT 98; BMI 45.6
[2021-06-26] MEDS: morphine 10 MG/ML Syringe 8 MG IM (22:17)
[2021-06-26] MEDS: Ondansetron ODT 4 MG Tablet PO (22:17)
--- NOTE | 2021-06-26 22:41 | EDS_ITS ---
HPI History of Present Illness Chief Complaint: Abd Pain Narrative Narrative: Patient is a 60-year-old female who was seen earlier today secondary to belly pain. At that time she was diagnosed with biliary colic and a umbilical hernia. She states she has an appointment with the general surgeon in approximately 1 week. She states she was feeling well when she left the hospital but after returning home developed some upper abdominal pain. She states it did not resolve after a few minutes and since she called the hospital to discuss what she should do. She states she was advised to come back to the hospital for repeat evaluation and therefore presents at this time. The patient states that her pain has improved upon arrival without any type of medication [facility] Medical History (Updated 06/26/21 @ 22:[address] Cesar Clifford, ) Anxiety Back pain Depression Hypertension Hypothyroid Home Medications alprazolam [Xanax] 1 mg PO DAILY PRN 09/22/15 [History Last Taken Unknown] lisinopril 10 mg PO DAILY 09/22/15 [History Last Taken Unknown] levothyroxine 100 mcg PO DAILY 05/13/16 [History Last Taken Unknown] fluticasone propionate 2 spray INHALATION DAILY 11/29/17 [History Last Taken Unknown] furosemide 20 mg PO DAILY 11/29/17 [History Last Taken Unknown] lansoprazole 15 mg PO DAILY 11/29/17 [History Last Taken Unknown] tizanidine 4 mg PO DAILY 11/29/17 [History Last Taken Unknown] albuterol sulfate 1 - 2 puff INHALATION Q4H PRN PRN 12/05/19 [History Last Taken Unknown] amitriptyline 25 mg PO DAILY 06/26/21 [History Last Taken Unknown] amlodipine 5 mg PO DAILY 06/26/21 [History Last Taken Unknown] bupropion HCl 150 mg PO DAILY 06/26/21 [History Last Taken Unknown] cholecalciferol (vitamin D3) 125 mcg PO DAILY 06/26/21 [History Last Taken Unknown] citalopram 20 mg PO DAILY 06/26/21 [History Last Taken Unknown] ondansetron HCl [Zofran] 4 mg PO Q6H PRN 06/26/21 [History Last Taken Unknown] oxycodone-acetaminophen [Percocet] 1 tab PO Q6H PRN 3 Days #12 tab 06/26/21 [Rx Last Taken Unknown] Allergy/AdvReac Type Severity Reaction Status Date / Time peanut Allergy Itching Verified 06/26/21 20:14 levofloxacin [From Levaquin] AdvReac Other Verified 06/26/21 20:14 COD FISH Allergy Itching Uncoded 06/26/21 20:14 Surgical History (Updated 06/26/21 @ 14:06 by Lio Mullen) H/O tubal ligation History of placement of ear tubes Hx of breast reduction, elective Social History Smoking Status: Former smoker ROS ROS ED Constitutional Constitutional ED: Denies chills or fever(s) ENT ENT ED: Denies sore throat Cardiovascular Cardiovascular: Denies chest pain Respiratory/Chest Respiratory/Chest: Denies cough or dyspnea Gastrointestinal Gastrointestinal: Reports abdominal pain and nausea; Denies diarrhea or vomiting Genitourinary Genitourinary ED: Denies dysuria Musculoskeletal Musculoskeletal: Denies myalgias Integumentary Denies rash Neurologic Neurologic: Denies headache(s) Hematologic/Lymphatic Hematologic/Lymphatic: Denies easy bleeding or easy bruising EXAM Physical Exam Const Vital Signs: 06/26/21 20:14 Temperature 96.5 F L Temperature Source Temporal Pulse Rate 70 Respiratory Rate 16 Blood Pressure 129/61 H Blood Pressure Mean 83 Pulse Ox 98 Oxygen Delivery Method Room Air Positive well nourished and well developed General Appearance ED: well developed HEENT Reports moist mucous membranes Eyes PERRL and EOMs intact bilaterally Neck supple Resp normal respiratory effort and clear to auscultation bilaterally Cardio regular rate and regular rhythm Rate: other Other Details: Radial pulses are plus 2 out of 4 bilaterally are equal and symmetric GI normal to inspection, nondistended, normoactive bowel sounds, non-tender, non- distended and no masses GI Narrative: No voluntary guarding or rigidity no pulsatile mass Auscultation: normoactive bowel sounds Palpation: soft Extremity normal to inspection Neuro oriented x3 and CN's II-XII intact bilaterally Sensorium / Orientation: alert Psych mental status grossly normal Skin no rashes or lesions noted MDM MDM MDM Narrative Medical decision making narrative: Patient presented to the ER with stable vitals and spontaneous improvement of her pain. She had basic lab work and a CT scan earlier today so I felt there was no need for repeat imaging or laboratory studies at this time. The results were reviewed as well and based on her normal white count and liver enzymes and do not feel she is having acute cholecystitis. At this time she most likely had a biliary colic event leading to her increased pain but as it has spontaneously improved and on reevaluation abdomen remains soft and nonsurgical I will simply place her on pain medications and she can still follow-up with surgery for repeat evaluation. Discharge Plan Triage Chief Complaint: Abd Pain ED Provider: Cesar Clifford Dx/Rx/DC Orders Clinical Impression: Hernia, umbilical, Biliary colic Instructions: What Is a Hernia?, ED Gallstones with Biliary Colic Prescriptions: New oxycodone-acetaminophen [Percocet] 5-325 mg tablet 1 tab PO Q6H PRN (Reason: pain) 3 Days Qty: 12 RF: 0 No Action alprazolam [Xanax] 1 MG tablet 1 mg PO DAILY PRN (Reason: Anxiety) RF: 0 lisinopril 10 MG tablet 10 mg PO DAILY RF: 0 levothyroxine 100 MCG tablet 100 mcg PO DAILY RF: 0 tizanidine 4 MG tablet 4 mg PO DAILY RF: 0 lansoprazole 15 MG capsule,delayed release(DR/EC) 15 mg PO DAILY RF: 0 furosemide 20 MG tablet 20 mg PO DAILY RF: 0 fluticasone propionate 1 SPRAY spray,suspension 2 spray inhalation DAILY RF: 0 albuterol sulfate 1 PUFF inhaler 1 - 2 puff inhalation Q4H PRN PRN (Reason: Sob &/Or Wheezing) RF: 0 bupropion HCl 150 mg Tablet Sustained-Release 12 Hr 150 mg PO DAILY RF: 0 ondansetron HCl [Zofran] 4 mg Tablet 4 mg PO Q6H PRN (Reason: Nausea) RF: 0 amlodipine 5 mg Tablet 5 mg PO DAILY RF: 0 citalopram 20 mg Tablet 20 mg PO DAILY RF: 0 amitriptyline 25 mg Tablet 25 mg PO DAILY RF: 0 cholecalciferol (vitamin D3) 125 mcg (5,000 unit) Tablet 125 mcg PO DAILY RF: 0 Primary Care Provider: Deloris Chavez NP Referrals: Bret Hamilton MD [STAFF PHYSICIAN] - 1 Week Deloris Chavez NP, MEDICAL HOUSEKEEPER-C [Primary Care Provider] - Disposition Disposition: Home, Self Care Discharge Date/Time: 06/26/21 23:09
== END 2021-06-26 23:09 | disposition home or self-care (01) ==
PROVIDERS: Emergency Provider Emergency Medicine; PCP Registered Nurse; Visit Provider Emergency Medicine
DX: K80.50 Calculus of bile duct without cholangitis or cholecystitis without obstruction (principal); K42.9 Umbilical hernia without obstruction or gangrene; I10 Essential (primary) hypertension; E03.9 Hypothyroidism, unspecified; F32.A Depression, unspecified; F41.9 Anxiety disorder, unspecified; Z87.891 Personal history of nicotine dependence; Z79.899 Other long term (current) drug therapy

== ENCOUNTER 2021-07-17 07:34 | Outpatient (CLI) | payer MEDICAID, SELFPAY ==
--- NOTE | 2021-07-17 07:36 | RAD_ITS ---
PROCEDURE: SMALL BOWEL SERIES DATE OF EXAMINATION: 07/17/2021.. INDICATION: Female, 60 years old. Two-month history of mid upper abdominal pain. PHYSICIAN: Alexis Shi M.D. TECHNIQUE: Radiographic images were taken of the small intestine following the ingestion of barium. 10 images were obtained. COMPARISON: None. FINDINGS: A preliminary supine KUB was obtained. There is an unremarkable bowel gas pattern. Fecal material is present throughout the colon. Phleboliths are present within the pelvis. The lung bases are unremarkable. The osseous structures are normal. The patient orally ingested approximately 12 ounces of thin barium Normal visualized fundus, body, and antrum of the stomach. Normal duodenal bulb, C-loop, and proximal jejunum. Normal visualized mucosal folds of the jejunum and ileum. There are no demonstrated dilatations, strictures, or masses of the small intestine. There is no mass displacement of the loops of small intestine. There is a normal motor pattern with barium reaching the colon within approximately 45 minutes. Spot films under fluoroscopic observation demonstrated a normal terminal ileum and ileocecal valve. RAD/Small Bowel Series Only IMPRESSION: Normal small bowel series. Electronically Signed: Alexis Shi MD at 14:16 EST ,
== END 2021-07-17 23:59 | disposition short-term general hospital (02) ==
LOC: RAD 07:35
PROVIDERS: PCP Registered Nurse; Referring Provider Internal Medicine Gastroenterology; Visit Provider Internal Medicine Gastroenterology
DX: R10.9 Unspecified abdominal pain (principal); K59.00 Constipation, unspecified
CPT/HCPCS: 74250

== ENCOUNTER → 2022-07-08 | Outpatient (CLI) | payer MEDICAID, SELFPAY ==
--- NOTE | 2022-07-08 09:39 | NM_ITS ---
CLINICAL: 61-year-old female with history of abdominal pain and bloating. RADIONUCLIDE HEPATOBILIARY SCINTIGRAPHY COMPARISON: None available FINDINGS: Following the intravenous administration of 5.3 mCi of 99m Tc Mebrofenin, hepatobiliary images reveal: 1. Relatively prompt and homogeneous radiopharmaceutical concentration is noted by a normal sized liver. No parenchymal defects are identified. 2. Gallbladder activity is identified at 15 minutes post radiopharmaceutical administration. 3. Small intestinal tract is not visualized during 60 minutes of pre-CCK sequential imaging. Small bowel activity is identified following the provision of cholecystokinin. 4. Washout of the radiopharmaceutical by the hepatic parenchyma appears qualitatively normal. Cholecystokinin (0.02 ug/kg) was administered intravenously over a 30 minute period. The post CCK gallbladder ejection fraction calculated at 20 minutes following Cholecystokinin administration was noted to be 31.0 % (normal greater than 35%). NM/Hepatobilliary Img w/Pharm Int IMPRESSION: 1. ABNORMAL 99m Tc Mebrofenin hepatobiliary imaging examination with Cholecystokinin. A. A gallbladder ejection fraction calculated to be less than 35% following the administration of Cholecystokinin is consistent with the presence of functional hepatobiliary disease (gallbladder and/or sphincter of Oddi dyskinesia) and/or organic hepatobiliary disease (chronic acalculous cholecystitis and/or cystic duct syndrome) in patients with intermediate to high pretest likelihoods of hepatobiliary illness. (Billy Khan et al, Journal of Nuclear Medicine 32:1695, 1991). Electronically Signed: Bret Cardenas, at 22:34 EST ,
== END | disposition home or self-care (01) ==
LOC: NM 09:38
PROVIDERS: PCP Registered Nurse; Referring Provider Internal Medicine Gastroenterology; Visit Provider Internal Medicine Gastroenterology
DX: R11.0 Nausea (principal); K80.20 Calculus of gallbladder without cholecystitis without obstruction; R10.9 Unspecified abdominal pain
CPT/HCPCS: 78227; A9537; J2805

== ENCOUNTER 2022-11-05 07:51 | Emergency (ER) | payer MEDICARE, MEDICAID, SELFPAY ==
[2022-11-05 07:52] VITALS: BP 148/81; PULSE 87; RESP 22; TEMP 35.6; O2SAT 98; BMI 47.4
--- NOTE | 2022-11-05 08:02 | RAD_ITS ---
STUDY: X-RAY - UNILATERAL RIBS ( RIGHT ) WITH CHEST REASON FOR EXAM: Female, 61 years old. pain TECHNIQUE - RIBS: 4 view(s) of the ribs. TECHNIQUE - CHEST: Single PA view of the chest. COMPARISON: None. FINDINGS - RIBS: Normal visualized ribs without a demonstrated fracture. FINDINGS - CHEST: The lungs are clear and expanded. There is no demonstrated pleural abnormality. Normal size heart. Normal mediastinum and roni. Normal visualized pulmonary arteries. There is atherosclerotic calcification of the aortic arch with tortuosity. Normal visualized thoracic spine. Normal visualized ribs, clavicles, and shoulders. There is no demonstrated abnormality of the visualized soft tissue structures of the upper abdomen. RAD/Ribs Uni Min 3V w/PA Chest IMPRESSION: RIBS: No plain film evidence of acute displaced rib fracture, pleural thickening or pneumothorax CHEST: No acute pulmonary process Electronically Signed: Denis Eisenberg MD at 8:29 EDT ,
--- NOTE | 2022-11-05 08:05 | EDS_ITS ---
HPI History of Present Illness Chief Complaint: Back Detail of Chief Complaint: Right lower rib pain Informant: patient Narrative Narrative: Patient presents with right lower rib pain after coughing this morning. She did take ibuprofen prior to arrival but remains uncomfortable. [facility] Medical History Anxiety Back pain Depression Hypertension Hypothyroid Home Medications alprazolam 1 mg tablet (Xanax) 1 mg PO DAILY PRN Anxiety 09/22/15 [History Last Taken Unknown] lisinopril 10 mg tablet 10 mg PO DAILY 09/22/15 [History Last Taken Unknown] levothyroxine 100 mcg tablet 100 mcg PO DAILY 05/13/16 [History Last Taken Unknown] fluticasone propionate 50 mcg/actuation nasal spray,suspension 2 spray inhalation DAILY 11/29/17 [History Last Taken Unknown] furosemide 20 mg tablet 20 mg PO DAILY 11/29/17 [History Last Taken Unknown] lansoprazole 15 mg capsule,delayed release 15 mg PO DAILY 11/29/17 [History Last Taken Unknown] tizanidine 4 mg tablet 4 mg PO DAILY 11/29/17 [History Last Taken Unknown] albuterol sulfate 90 mcg/actuation aerosol inhaler 1 - 2 puff inhalation Q4H PRN PRN Sob &/Or Wheezing 12/05/19 [History Last Taken Unknown] amitriptyline 25 mg tablet 25 mg PO DAILY 06/26/21 [History Last Taken Unknown] amlodipine 5 mg tablet 5 mg PO DAILY 06/26/21 [History Last Taken Unknown] bupropion HCl 150 mg tablet,12 hr sustained-release 150 mg PO DAILY 06/26/21 [History Last Taken Unknown] cholecalciferol (vitamin D3) 125 mcg (5,000 unit) tablet 125 mcg PO DAILY 06/26/21 [History Last Taken Unknown] citalopram 20 mg tablet 20 mg PO DAILY 06/26/21 [History Last Taken Unknown] ondansetron HCl 4 mg tablet 4 mg PO Q6H PRN Nausea 06/26/21 [History Last Taken Unknown] oxycodone-acetaminophen 5 mg-325 mg tablet (Percocet) 1 tab PO Q6H PRN pain 3 days #12 tabs 06/26/21 [Rx Last Taken Unknown] oxycodone-acetaminophen 5 mg-325 mg tablet (Percocet) 1 tab PO Q8H PRN pain 3 days #10 tabs 11/05/22 [Rx Last Taken Unknown] Allergy/AdvReac Type Severity Reaction Status Date / Time Fish Containing Products Allergy Itching Verified 03/03/22 15:39 peanut Allergy Itching Verified 06/26/21 20:14 levofloxacin [From Levaquin] AdvReac Other Verified 06/26/21 20:14 Surgical History H/O tubal ligation History of placement of ear tubes Hx of breast reduction, elective Social History Smoking Status: Former smoker ROS ROS ED Constitutional Constitutional ED: Denies chills or fever(s) Eyes Eyes: Denies change in vision or discharge from eye(s) ENT ENT ED: Denies discharge from eye(s), rhinorrhea or sore throat Cardiovascular Cardiovascular: Reports chest pain; Denies palpitations Respiratory/Chest Respiratory/Chest: Denies cough or dyspnea Gastrointestinal Gastrointestinal: Denies abdominal pain, nausea or vomiting Genitourinary Genitourinary ED: Denies dysuria Musculoskeletal Musculoskeletal: Denies back pain or extremity pain Integumentary Denies Abrasions or rash Neurologic Neurologic: Denies headache(s) or weakness Psychiatric Psychiatric: Denies anxiety or depression Allergic/Immunologic Allergic/Immunologic ED: Denies lip swelling or urticaria EXAM Physical Exam Const Vital Signs: 11/05/22 07:52 Temperature 96.1 F L Temperature Source Temporal Pulse Rate 87 Respiratory Rate 22 H Blood Pressure 148/81 H Blood Pressure Mean 103 Pulse Ox 98 Oxygen Delivery Method Room Air Positive well nourished and well developed General Appearance ED: well developed HEENT Reports normocephalic and head/scalp atraumatic Eyes PERRL and EOMs intact bilaterally Neck supple Chest Wall inspection of chest normal Chest Narrative: Tenderness over the right lower lateral ribs. No crepitus. Resp normal respiratory effort and clear to auscultation bilaterally Cardio regular rate and regular rhythm GI normal to inspection, nondistended, normoactive bowel sounds Palpation: soft Extremity normal to inspection Neuro oriented x3 and no sensory deficits noted Sensorium / Orientation: alert Motor Exam: strength 5/5 throughout Psych Mood & Affect: anxious Skin no rashes or lesions noted MDM MDM MDM Narrative Medical decision making narrative: Patient did take ibuprofen prior to arrival. She is given a dose of oxycodone at this time along with Tylenol. Rib series obtained to evaluate for fracture. Radiography Diagnostic Testing: Clinical Impression(s) from Imaging Studies Ribs w/Chest X-Ray 11/05/22 08:02 IMPRESSION: RIBS: No plain film evidence of acute displaced rib fracture, pleural thickening or pneumothorax CHEST: No acute pulmonary process Electronically Signed: Denis Eisenberg MD at 8:29 EDT , Treatment and Re-Evaluation :: Right rib series per my interpretation reveals no obvious evidence of rib fracture. No pneumothorax. Radiology interpretation is reviewed and agrees. On repeat evaluation patient is resting much more comfortably. Test results discussed with her. I will write her a very short course of Percocet for breakthrough pain at home. We discussed importance of deep breathing and potential for nondisplaced rib fracture. Return instructions are given. Discharge Plan Triage Chief Complaint: Back ED Provider: Roshni Carmen Dx/Rx/DC Orders Clinical Impression: Contusion of ribs Instructions: ED Rib Contusion or Minor Fracture Prescriptions: New oxycodone-acetaminophen [Percocet] 5-325 mg tablet 1 tab PO Q8H PRN (Reason: pain) 3 Days Qty: 10 0RF No Action alprazolam [Xanax] 1 MG tablet 1 mg PO DAILY PRN (Reason: Anxiety) lisinopril 10 MG tablet 10 mg PO DAILY levothyroxine 100 MCG tablet 100 mcg PO DAILY tizanidine 4 MG tablet 4 mg PO DAILY Label Comments: lansoprazole 15 MG capsule,delayed release(DR/EC) 15 mg PO DAILY Label Comments: furosemide 20 MG tablet 20 mg PO DAILY Label Comments: fluticasone propionate 1 SPRAY spray,suspension 2 spray inhalation DAILY Label Comments: albuterol sulfate 1 PUFF inhaler 1 - 2 puff inhalation Q4H PRN PRN (Reason: Sob &/Or Wheezing) bupropion HCl 150 mg Tablet Sustained-Release 12 Hr 150 mg PO DAILY ondansetron HCl [Zofran] 4 mg Tablet 4 mg PO Q6H PRN (Reason: Nausea) amlodipine 5 mg Tablet 5 mg PO DAILY citalopram 20 mg Tablet 20 mg PO DAILY amitriptyline 25 mg Tablet 25 mg PO DAILY cholecalciferol (vitamin D3) 125 mcg (5,000 unit) Tablet 125 mcg PO DAILY oxycodone-acetaminophen [Percocet] 5-325 mg tablet 1 tab PO Q6H PRN (Reason: pain) 3 Days Qty: 12 0RF Primary Care Provider: Deloris Chavez NP Referrals: Deloris Chavez NP, [employer] [Primary Care Provider] - 1 Week if not improving Disposition Disposition: Home, Self Care
[2022-11-05] MEDS: Acetaminophen 500 MG Tablet 1000 MG PO (08:12)
[2022-11-05] MEDS: oxyCODONE 5 MG Tablet PO (08:13)
[2022-11-05 09:29] VITALS: BP 139/81; PULSE 77; RESP 16; O2SAT 98
== END 2022-11-05 09:30 | disposition home or self-care (01) ==
PROVIDERS: Emergency Provider Emergency Medicine; PCP Registered Nurse; Visit Provider Emergency Medicine
DX: S20.219A Contusion of unspecified front wall of thorax, initial encounter (principal); I10 Essential (primary) hypertension; Z87.891 Personal history of nicotine dependence; F41.9 Anxiety disorder, unspecified; E03.9 Hypothyroidism, unspecified; Z79.899 Other long term (current) drug therapy; F32.A Depression, unspecified; X58.XXXA Exposure to other specified factors, initial encounter
CPT/HCPCS: 71101; 99283

== ENCOUNTER 2023-11-03 10:57 | Day surgery (SDC) | payer MEDICARE, MEDICAID, SELFPAY ==
[2023-11-03 11:19] VITALS: BP 126/67; PULSE 86; RESP 16; TEMP 36.5; O2SAT 94; BMI 51.0
[2023-11-03] MEDS: Lactated Ringers 1,000 ML 15 ML IV (11:30)
--- NOTE | 2023-11-03 11:57 | RAD_ITS ---
PROCEDURE: Fluoroscopy in the operating room. DATE OF EXAMINATION: INDICATION: Female, 62 years old. Low back pain, pelvic pain PHYSICIAN: FLUOROSCOPY TIME (if supplied): (0:05) minutes/seconds Technique: 5 seconds of fluoroscopy of the sacrum was utilized operating room during epidural steroid injection in a single image is submitted for interpretation. RAD/Fluor Guidance for Spine Inj IMPRESSION: Fluoroscopy during epidural steroid injection. Electronically Signed: Bret Villeda MD at 19:08 EDT ,
[2023-11-03] MEDS: 0.9% Normal Saline (Pres. free 10 ML Vial (12:03)
[2023-11-03] MEDS: Lidocaine 1% (5 ml sdv) 5 ML Vial (12:03)
[2023-11-03] MEDS: MethylPREDNISolone Acetate 80 MG/ML Vial (12:03)
[2023-11-03 12:10] VITALS: BP 111/62; PULSE 77; RESP 16; TEMP 37; O2SAT 97
--- NOTE | 2023-11-03 12:11 | OP.PCM_ITS ---
Report of Operation Date of Procedure: 11/03/23 Pre-Operative Diagnosis: Lumbosacral radiculopathy, lumbosacral degenerative di sc disease, lumbosacral spinal stenosis Post-Operative Diagnosis: Lumbosacral radiculopathy, lumbosacral degenerative disc disease, lumbosacral spinal stenosis Surgery/Procedure Performed:: Diagnostic/therapeutic caudal epidural steroid injection under fluoroscopic guidance Type of Anesthesia: MAC Estimated Blood Loss (mL): Minimal Description of Procedure: DESCRIPTION OF PROCEDURE: History and physical of today was reviewed. Risks and benefits of the procedure were explained. The patient understood and agreed to proceed. Informed consent was obtained. IV inserted per routine protocol. The patient was taken to the operating room and placed in the prone position with a pillow positioned underneath the abdomen. The lower back and tailbone area was prepped and draped in a sterile fashion using iodine x3. Under fluoroscopy guidance on a lateral view, the caudal space was identified. The skin and subcutaneous tissue was anesthetized with approximately 3 mL of 1% lidocaine using a 25-gauge regular needle. Under direct visualization with fluoroscopy, using a 22-gauge 3-1/2-inch spinal needle, the needle was advanced via the skin through the sacral hiatus. The tip of the needle was passed through the sacrococcygeal ligament and advanced to approximately S4 area. After negative aspiration of blood or CSF, a total of 3 mL of contrast was injected to confirm correct placement of the needle as well as cephalad spread. The spread was followed to approximately L5 area. After confirmation on AP as well as lateral view and repeated negative aspiration, a total of 15 mL of preservative-free 0.125% Marcaine with 80 mg of Depo-Medrol was injected easily. The needle was then removed intact. The patient experienced no sign or symptoms of intrathecal or intravascular injection. The patient experienced no paresthesia. The procedure was completed without any apparent difficulty or any complications. The patient appeared to tolerate it well. ASSESSMENT AND PLAN: This is a 62-year-old female with lumbosacral radiculopathy, lumbosacral degenerative disc disease, lumbosacral spinal stenosis status post diagnostic/therapeutic caudal epidural steroid injection, patient will continue her current medications, patient will follow in approximately 2 weeks for reevaluation. Complications None
[2023-11-03 12:20] VITALS: BP 100/64; PULSE 74; RESP 16; TEMP 36.9; O2SAT 96
[2023-11-03 12:21] VITALS: BP 105/63; PULSE 75; RESP 16; O2SAT 95
== END 2023-11-03 12:32 | disposition home or self-care (01) ==
LOC: SDC 10:58 → AC 10:59
PROVIDERS: PCP Registered Nurse; Referring Provider Anesthesiology Pain Medicine; Visit Provider Anesthesiology Pain Medicine
PROC: 3E0S3BZ Introduction of Anesthetic Agent into Epidural Space, Percutaneous Approach (ICD-10-PCS; CPT 62282; principal; 2023-11-03 12:25)
DX: M51.17 Intervertebral disc disorders with radiculopathy, lumbosacral region (principal); M48.07 Spinal stenosis, lumbosacral region; G47.33 Obstructive sleep apnea (adult) (pediatric); J45.909 Unspecified asthma, uncomplicated; M47.812 Spondylosis without myelopathy or radiculopathy, cervical region; M51.37 Other intervertebral disc degeneration, lumbosacral region; M47.817 Spondylosis without myelopathy or radiculopathy, lumbosacral region; M43.16 Spondylolisthesis, lumbar region; M46.96 Unspecified inflammatory spondylopathy, lumbar region; F41.9 Anxiety disorder, unspecified; F32.A Depression, unspecified; E03.9 Hypothyroidism, unspecified; I10 Essential (primary) hypertension; F17.210 Nicotine dependence, cigarettes, uncomplicated; Z79.891 Long term (current) use of opiate analgesic; Z79.51 Long term (current) use of inhaled steroids; Z79.899 Other long term (current) drug therapy
CPT/HCPCS: 62323; 01992; 64483; 77003; J7120; J3490

== ENCOUNTER 2023-12-12 17:55 | Emergency (ER) | payer MEDICARE, MEDICAID, SELFPAY ==
[2023-12-12 17:56] VITALS: BP 139/70; PULSE 83; RESP 18; TEMP 36.1; O2SAT 95
--- NOTE | 2023-12-12 19:24 | EDS_ITS ---
HPI History of Present Illness Chief Complaint: Edema Detail of Chief Complaint: Left lower extremity swelling and pain Informant: patient Occured/Mechanism Comment: This is atraumatic. Onset/Context/Timing Onset: Days (4 days ago) Context: Sudden Onset Timing: Continuous Location: Predominantly left leg Current Severity: Mild Maximum Severity: Mild Worsened by: Nothing Relieved by: Nothing Associated Symptoms Associated Symptoms: Positive for - (No symptoms to raise concern for pulmonary embolus); Negative for Parasthesia, Weakness or Loss of Funtion Narrative Narrative: Patient is a 62-year-old woman who presents with pain and swelling of her left lower extremity that started 4 days ago. She denies recent surgery, travel, prior history of PE or DVT. She denies chest pain of any type. She denies dyspnea, dyspnea on exertion or pleuritic chest pain. She denies trauma to the left lower extremity. She denies orthopnea. Patient has history of hypertension, anxiety, allergic rhinitis. She has no symptoms of claudication. Prior similar symptoms: No Recent Illness/Hospitalization: No PFSH PFS Medical History Loss of hearing Wears hearing aid Wears dentures Wears glasses Restless legs Gastric reflux Hoarseness Chronic cough Smoker Shortness of breath on exertion History of stress test Anxiety Depression Hypothyroid Hypertension Back pain Home Medications ?Medication ?Instructions ?Recorded ?Last Taken ?Type alprazolam 1 mg tablet (Xanax) 1 mg PO DAILY PRN Anxiety 09/22/15 Unknown History lisinopril 10 mg tablet 10 mg PO DAILY 09/22/15 Unknown History levothyroxine 100 mcg tablet 100 mcg PO DAILY 05/13/16 11/03/23 03:18 History fluticasone propionate 50 2 spray inhalation DAILY 11/29/17 11/03/23 03:18 History mcg/actuation nasal spray,suspension furosemide 20 mg tablet 20 mg PO DAILY 11/29/17 Unknown History lansoprazole 15 mg capsule,delayed 15 mg PO DAILY 11/29/17 Unknown History release tizanidine 4 mg tablet 4 mg PO DAILY 11/29/17 Unknown History albuterol sulfate 90 mcg/actuation 1 - 2 puff inhalation Q4H PRN PRN 12/05/19 0 11/03/23 03:18 History aerosol inhaler Sob &/Or Wheezing amitriptyline 25 mg tablet 25 mg PO DAILY 06/26/21 Unknown History amlodipine 5 mg tablet 5 mg PO DAILY 06/26/21 11/03/23 History bupropion HCl 150 mg tablet,12 hr 150 mg PO DAILY 06/26/21 Unknown History sustained-release cholecalciferol (vitamin D3) 125 125 mcg PO DAILY 06/26/21 Unknown History mcg (5,000 unit) tablet citalopram 20 mg tablet 20 mg PO DAILY 06/26/21 Unknown History ondansetron HCl 4 mg tablet 4 mg PO Q6H PRN Nausea 06/26/21 Unknown History oxycodone-acetaminophen 5 mg-325 1 tab PO Q8H PRN pain 3 days #10 11/05/22 Unknown Rx mg tablet (Percocet) tabs albuterol sulfate 2.5 mg/3 mL 2.5 mg inhalation Q6H PRN 10/27/23 Unknown History (0.083 %) solution for nebulization shortness of breath or wheezing Allergy/AdvReac Type Severity Reaction Status Date / Time Fish Containing Products Allergy Itching Verified 12/12/23 17:57 peanut Allergy Itching Verified 12/12/23 17:57 levofloxacin (From Levaquin) AdvReac Other Verified 12/12/23 17:57 Surgical History History of carpal tunnel surgery H/O tubal ligation History of placement of ear tubes Hx of breast reduction, elective Social History Smoking Status: Current every day smoker tobacco type: cigarettes ROS ROS ED Constitutional Constitutional ED: Denies chills, fever(s), subjective, sweats or weight loss Eyes Eyes: Denies blurry vision, change in vision or diplopia ENT ENT ED: Denies rhinorrhea or sore throat Cardiovascular Cardiovascular: Denies chest pain, orthopnea, palpitations or paroxysmal nocturnal dyspnea Respiratory/Chest Respiratory/Chest: Denies cough, dyspnea, dyspnea on exertion, orthopnea or paroxysmal nocturnal dyspnea Musculoskeletal Musculoskeletal: Denies arthralgias or myalgias Integumentary Denies rash Neurologic Neurologic: Denies paresthesias or weakness Hematologic/Lymphatic Hematologic/Lymphatic: Denies easy bleeding or easy bruising EXAM Physical Exam Const Vital Signs: 12/12/23 17:56 12/12/23 19:47 Temperature 96.9 F L Temperature Source Temporal Pulse Rate 83 Respiratory Rate 18 Respiratory Effort Normal Respiratory Pattern Normal Blood Pressure 139/70 H Blood Pressure Mean 93 Pulse Ox 95 Oxygen Delivery Method Room Air Positive well nourished and well developed Constitutional Narrative: Blood pressure slightly elevated. Patient's BMI is greater than 40. General Appearance ED: well developed HEENT Reports moist mucous membranes normocephalic and atraumatic Resp normal respiratory effort Cardio regular rate and regular rhythm GI non-tender, non-distended and no masses Auscultation: normoactive bowel sounds Palpation: soft Extremity Negative for normal to inspection Extremity Narrative: There is a discernible difference in size of the left leg compared to right. She has tenderness of the long the deep venous system. There is no leg vein distention. There is no palpable cords. There is no popliteal angle lymphadenopathy. There is no evidence of cellulitis. General Extremety ED: Negative for weight-bearing difficulty General Extremity: Negative for weight-bearing difficulty Neuro oriented x3 and CN's II-XII intact bilaterally Sensorium / Orientation: alert Psych mental status grossly normal Skin no wounds Lesions: no lesions Rashes: no rashes MDM MDM MDM Narrative Medical decision making narrative: Patient has stigmata of peripheral arterial disease probably microvascular since she does have palpable DP and PT pulse. Since there is significant difference in size and tenderness on the deep venous system patient is not low probability for DVT and D-dimer is not appropriate. Therefore a venous duplex study was ordered. This may represent lymphedema which is noted in the right leg. However there is a discernible difference send discoloration of left lower extremity someone needs to rule out DVT. For this reason, venous duplex study of the left lower extremity was obtained/ordered. Radiography Diagnostic Testing: Clinical Impression(s) from Imaging Studies Venous Duplex 12/12/23 19:25 IMPRESSION: Negative for DVT. Electronically Signed: Reva Au MD at 20:41 EDT , Since patient does not have a DVT should be discharged to home. Discharge Plan Triage Chief Complaint: Edema ED Provider: Moncho Hardin Dx/Rx/DC Orders Clinical Impression: Lymphedema of left lower extremity Instructions: ED Peripheral Edema, Unilateral Prescriptions: No Action alprazolam [Xanax] 1 MG tablet 1 mg PO DAILY PRN (Reason: Anxiety) lisinopril 10 MG tablet 10 mg PO DAILY levothyroxine 100 MCG tablet 100 mcg PO DAILY tizanidine 4 MG tablet 4 mg PO DAILY Patient Comments: lansoprazole 15 MG capsule,delayed release(DR/EC) 15 mg PO DAILY Patient Comments: furosemide 20 MG tablet 20 mg PO DAILY Patient Comments: fluticasone propionate 1 SPRAY spray,suspension 2 spray inhalation DAILY Patient Comments: albuterol sulfate 1 PUFF inhaler 1 - 2 puff inhalation Q4H PRN PRN (Reason: Sob &/Or Wheezing) bupropion HCl 150 mg Tablet Sustained-Release 12 Hr 150 mg PO DAILY ondansetron HCl [Zofran] 4 mg Tablet 4 mg PO Q6H PRN (Reason: Nausea) amlodipine 5 mg Tablet 5 mg PO DAILY citalopram 20 mg Tablet 20 mg PO DAILY amitriptyline 25 mg Tablet 25 mg PO DAILY cholecalciferol (vitamin D3) 125 mcg (5,000 unit) Tablet 125 mcg PO DAILY oxycodone-acetaminophen [Percocet] 5-325 mg tablet 1 tab PO Q8H PRN (Reason: pain) 3 Days Qty: 10 0RF albuterol sulfate 2.5 mg /3 mL (0.083 %) solution for nebulization 2.5 mg inhalation Q6H PRN (Reason: shortness of breath or wheezing) Patient Comments: inhale 1 vial in nebulizer every 6 hours NEEDED FOR FEVER wheezing or shortness of breath Primary Care Provider: Deloris Chavez NP Referrals: Deloris Chavez NP, [employer] DES[employer] [Primary Care Provider] - 3-5 Days Activity Restrictions/Additional Instructions: 1. Recommend elevating your left leg. 2. Recommend putting a BRCA2 at the base of your bed 3. Recommend compressive hose thigh-high for your left lower extremity Print Language: Stateless Disposition Disposition: Home, Self Care
--- NOTE | 2023-12-12 19:25 | US_ITS ---
INDICATION: left leg swelling EXAMINATION: Ultrasound US Venous Duplex LE Unilat / Limited LEFT TECHNIQUE: Gamble scale, pulse wave, and color flow Doppler imaging was performed of the lower extremity venous system. The left greater saphenous, common femoral, femoral, and popliteal veins were interrogated. COMPARISON: FINDINGS: Visualized veins from common femoral at the groin through the popliteal vein demonstrate appropriate flow characteristics, compressibility, and augmentation. No intraluminal thrombus identified. Edema noted. US/Venous Duplex Imag/Limited/Uni IMPRESSION: Negative for DVT. Electronically Signed: Reva Au MD at 20:41 EDT ,
== END 2023-12-12 21:28 | disposition home or self-care (01) ==
PROVIDERS: Emergency Provider Emergency Medicine; PCP Registered Nurse; Visit Provider Emergency Medicine
DX: I89.0 Lymphedema, not elsewhere classified (principal); F41.9 Anxiety disorder, unspecified; F17.210 Nicotine dependence, cigarettes, uncomplicated; I10 Essential (primary) hypertension; Z98.51 Tubal ligation status; E03.9 Hypothyroidism, unspecified; K21.9 Gastro-esophageal reflux disease without esophagitis
CPT/HCPCS: 93971; 99282

== ENCOUNTER 2024-06-21 11:14 | Day surgery (SDC) | payer MEDICARE, MEDICAID, SELFPAY ==
[2024-06-21 11:37] VITALS: BP 131/77; PULSE 84; RESP 18; TEMP 36.5; O2SAT 97; BMI 51.3
--- NOTE | 2024-06-21 12:25 | RAD_ITS ---
PROCEDURE: Caudal block DATE OF EXAMINATION: 2024 INDICATION: Female, 63 years old. Chronic low back pain. FLUOROSCOPY TIME (if supplied): (7 seconds) minutes/seconds. 8.05 mGy. One image was submitted. RAD/Fluor Guidance for Spine Inj IMPRESSION: Intraoperative imaging provided for caudal block. Electronically Signed: Alexis Shi MD at 12:03 EST ,
[2024-06-21 12:30] VITALS: BP 143/98; O2SAT 93
--- NOTE | 2024-06-21 12:33 | PCM.OPRPT ---
Operative Report (Standard) Operative Information Date of Procedure: 06/21/24 Pre-Operative Diagnosis: 1 Post-Operative Diagnosis: 1 Surgery/Procedure Performed: 1 collection systems administrator: No Type of Anesthesia: Local RN Documented Start/Stop Times: Operation Date: 06/21/24 12:40 Case Time Into Pre-Op 06/21/24 11:34 Out of Pre-Op 06/21/24 12:20 Into Room 06/21/24 12:24 Procedure Start 06/21/24 12:30 Procedure End 06/21/24 12:32 Procedure Start Time: 12:33 Procedure Stop Time: 12:33 Select all DRAINS/GRAFTS/IMPLANTS that apply: None Estimated Blood Loss: 1 Specimen collected: No Description of surgery: Pre-Operative Diagnosis: Lumbosacral radiculopathy, lumbosacral degenerative disc disease, lumbosacral spinal stenosis Post-Operative Diagnosis: Lumbosacral radiculopathy, lumbosacral degenerative disc disease, lumbosacral spinal stenosis Surgery/Procedure Performed:: Diagnostic/therapeutic caudal epidural steroid injection under fluoroscopic guidance Type of Anesthesia: Local Estimated Blood Loss (mL): Minimal Description of Procedure: DESCRIPTION OF PROCEDURE: History and physical of today was reviewed. Risks and benefits of the procedure were explained. The patient understood and agreed to proceed. Informed consent was obtained. IV inserted per routine protocol. The patient was taken to the operating room and placed in the prone position with a pillow positioned underneath the abdomen. The lower back and tailbone area was prepped and draped in a sterile fashion using iodine x3. Under fluoroscopy guidance on a lateral view, the caudal space was identified. The skin and subcutaneous tissue was anesthetized with approximately 3 mL of 1% lidocaine using a 25-gauge regular needle. Under direct visualization with fluoroscopy, using a 22-gauge 3-1/2-inch spinal needle, the needle was advanced via the skin through the sacral hiatus. The tip of the needle was passed through the sacrococcygeal ligament and advanced to approximately S4 area. After negative aspiration of blood or CSF, a total of 3 mL of contrast was injected to confirm correct placement of the needle as well as cephalad spread. The spread was followed to approximately L5 area. After confirmation on AP as well as lateral view and repeated negative aspiration, a total of 15 mL of preservative-free 0.125% Marcaine with 80 mg of Depo-Medrol was injected easily. The needle was then removed intact. The patient experienced no sign or symptoms of intrathecal or intravascular injection. The patient experienced no paresthesia. The procedure was completed without any apparent difficulty or any complications. The patient appeared to tolerate it well. ASSESSMENT AND PLAN: This is a 63-year-old female with lumbosacral radiculopathy, lumbosacral degenerative disc disease, lumbosacral spinal stenosis status post diagnostic/therapeutic caudal epidural steroid injection, patient will continue her current medications, patient will follow in approximately 2 weeks for reevaluation. Surgical Findings: 1 Complications Complications: No Admit VTE Documentation VTE Present on Admission: No VTE Mechan Device Prophylaxis: None VTE Pharm Prophylaxis ordered?: No
[2024-06-21 12:45] VITALS: BP 110/67; PULSE 79; RESP 16; TEMP 36.7; O2SAT 97
== END 2024-06-21 13:02 | disposition home or self-care (01) ==
LOC: SDC 11:17 → AC 11:17
PROVIDERS: PCP Registered Nurse; Referring Provider Anesthesiology Pain Medicine; Visit Provider Anesthesiology Pain Medicine
PROC: 3E0S3BZ Introduction of Anesthetic Agent into Epidural Space, Percutaneous Approach (ICD-10-PCS; CPT 62282; principal; 2024-06-21 12:35)
DX: M51.17 Intervertebral disc disorders with radiculopathy, lumbosacral region (principal); M48.07 Spinal stenosis, lumbosacral region
CPT/HCPCS: 62327; 64483; 77003; A4216

== ENCOUNTER 2024-08-30 09:30 | Day surgery (SDC) | payer MEDICARE, MEDICAID, SELFPAY ==
--- NOTE | 2024-08-30 09:20 | RAD_ITS ---
PROCEDURE: Fluoroscopy use. 08/30/2024 REASON FOR EXAM: BLOCK, CERVICAL RT TECHNIQUE: 2 intraoperative spot images were obtained during right cervical block. COMPARISON: None. FINDINGS: 2 intraoperative spot images were obtained during right cervical block. 11.3 seconds of fluoroscopic time utilized. A needle tip projects over the lower cervical spine on the provided images. RAD/Fluor Guidance for Spine Inj IMPRESSION: Documentation of fluoroscopy use during cervical block. Please see the procedu re note for details. Reading Location: [facility]
[2024-08-30 09:39] VITALS: BP 145/83; PULSE 101; RESP 16; TEMP 36.9; O2SAT 94; BMI 52.0
--- NOTE | 2024-08-30 10:43 | OP.PCM_ITS ---
Operative Report (Standard) Operative Information Date of Procedure: 08/30/24 Pre-Operative Diagnosis: Cervical radiculopathy, cervical spinal stenosis Post-Operative Diagnosis: Cervical radiculopathy, cervical spinal stenosis Surgery/Procedure Performed: Diagnostic/therapeutic cervical epidural steroid injection interlaminar at C7-T1 under fluoroscopic guidance virtualization consultant: No Type of Anesthesia: Local RN Documented Start/Stop Times: Operation Date: 08/30/24 10:20 Case Time Into Pre-Op 08/30/24 09:26 Procedure Start Time: 10:44 Procedure Stop Time: :44 Select all DRAINS/GRAFTS/IMPLANTS that apply: None Estimated Blood Loss: 0 Specimen collected: No Description of surgery: ANESTHESIA: Local. BLOOD LOSS: Minimal. COMPLICATIONS: None. DESCRIPTION OF PROCEDURE: History and physical of today was reviewed. Risks and benefits of the procedure were explained. The patient understood and agreed to proceed. Informed consent was obtained. IV inserted per routine protocol. The patient was taken to the operating room and placed in the prone position with a pillow positioned underneath the chest. The neck area was prepped and draped in a sterile fashion using iodine x3. Under fluoroscopy guidance on an AP view, the C7-T1 interlaminar space was identified. The skin and subcutaneous tissue was anesthetized with approximately 3 mL of 1% lidocaine using a 25-gauge regular needle. Under direct visualization on fluoroscopy, on AP view, using a 20-gauge 3-1/2-inch Tuohy needle, the needle was advanced via the skin. The tip of the needle was maneuvered and directed towards the interlaminar space at C7- T1. Loss of resistance technique was carried to air. Loss of resistance technique was encountered. Once encountered, after negative aspiration for bl ood and CSF, a total of 1 mL of contrast was injected to confirm correct placement of the needle as well as cephalocaudal spread of the contrast. Confirmation was obtained on AP as well as lateral view. After repeated negative aspiration and confirmation, a total of 3 mL of preservative-free normal saline and 80 mg of Depo-Medrol was injected easily. The needle was then removed intact. The patient experienced no sign or symptoms of intrathecal or intravascular injection. The patient experienced no paresthesia. The procedure was completed without any apparent difficulty or any complications. The patient appeared to tolerate it well. ASSESSMENT AND PLAN: This is a 63-year-old female with cervical radiculopathy, cervical spinal stenosis, status post cervical epidural steroid injection interlaminar at C7-T1 under fluoroscopic guidance, patient will continue her current medications, patient will follow-up in approximately 2 weeks for reevaluation. Surgical Findings: 1 Complications Complications: No Admit VTE Documentation VTE Present on Admission: No VTE Mechan Device Prophylaxis: None VTE Pharm Prophylaxis ordered?: No
[2024-08-30] MEDS: MethylPREDNISolone Acetate 80 MG/ML Vial (10:48)
== END 2024-08-30 11:02 | disposition home or self-care (01) ==
LOC: SDC 09:30 → AC 09:30
PROVIDERS: PCP Registered Nurse; Referring Provider Anesthesiology Pain Medicine; Visit Provider Anesthesiology Pain Medicine
PROC: 3E0S3BZ Introduction of Anesthetic Agent into Epidural Space, Percutaneous Approach (ICD-10-PCS; CPT 62320; principal; 2024-08-30 10:15)
DX: M48.02 Spinal stenosis, cervical region (principal); M54.12 Radiculopathy, cervical region
CPT/HCPCS: 62321; 64490; 77003; A4216

== ENCOUNTER → 2024-09-03 | Outpatient (CLI) | payer MEDICARE, MEDICAID, SELFPAY ==
--- NOTE | 2024-09-03 10:54 | CT_ITS ---
PROCEDURE: ABDOMEN/PELVIS WITH CONTRAST (CTABDPELW), 09/03/2024 REASON FOR EXAM: ABD PAIN/HERNIA TECHNIQUE: CT abdomen and pelvis was performed without IV contrast. Multiplanar reformats were generated. RADIATION DOSE SUMMARY: CTDlvol: 24.18 mGy DLP: 1153.67 mGycm One or more dose reduction techniques were used (e.g., Automated exposure control, adjustment of the mA and/or kV according to patient size, use of iterative reconstruction technique). COMPARISON: None. Exam dated 06/26/2021 could not be retrieved at the time of dictation. FINDINGS: Note that evaluation of the abdominopelvic viscera, vasculature, and remaining soft tissues is limited in the absence of IV contrast. Note the exam is slightly limited by generalized photon starvation. Note that the inferior pubic rami are partially excluded from the field of view inferiorly, with resultant exclusion of a portion of the inferior most anal canal, perineum, and surrounding tissues. Peritoneal compartment is imaged in its entirety. Lung bases: Atelectasis/scarring. Chronic granulomatous disease. Elevated LEFT hemidiaphragm. Liver: Unremarkable. Spleen: Granuloma. Gallbladder: Unremarkable. Pancreas: Unremarkable. Adrenals: Unremarkable. Kidneys: Unremarkable. Bowel: No bowel dilatation or convincing inflammation. Findings related to the anterior wall of the transverse colon as below. Top-normal caliber of the appendix without convincing inflammation. Lymph nodes: Unremarkable. Vasculature: Mild calcific atherosclerosis.. Peritoneum: Unremarkable. Bladder: Underdistended and suboptimally evaluated, grossly unremarkable. Reproductive Organs: Unremarkable. Body Wall: Small/moderate midline supraumbilical hernia contains almost exclusively fat, with neck measuring 3.1 x 1.7 cm. A minute portion of the anterior wall of the transverse colon is positioned within the hernia neck. Additional small fat containing umbilical hernia present more inferiorly, superimposed on rectus diastasis. Bones: L5-S1 facet arthropathy with mild anterolisthesis. Few punctate sclerotic presumed bone islands in the absence of known malignancy. Trace lumbar levoscoliosis. CT/Abdomen/Pelvis WITH Contrast IMPRESSION: 1. No acute noncontrast findings. 2. Additional description as above. Reading Location: [id number]
== END | disposition home or self-care (01) ==
PROVIDERS: PCP Registered Nurse; Referring Provider Surgery; Visit Provider Surgery
DX: K46.9 Unspecified abdominal hernia without obstruction or gangrene (principal)
CPT/HCPCS: 74177; Q9967

== ENCOUNTER 2024-10-04 08:58 | Day surgery (SDC) | payer MEDICARE, MEDICAID, SELFPAY ==
--- NOTE | 2024-09-21 09:59 | EKG12_ITS ---
Test Reason : PRE OP Blood Pressure : */* mmHG Vent. Rate : 91 BPM Atrial Rate : 91 BPM P-R Int : 190 ms QRS Dur : 100 ms QT Int : 352 ms P-R-T Axes : 39 101 70 degrees QTcB Int : 432 ms Normal sinus rhythm Rightward axis Incomplete right bundle branch block Borderline ECG Confirmed by BIPIN WEIR, EDWIN ([id number]), editorial cartoonist DONALD HCAO ([id number]) on 09/22/2024 5:45:32 AM Referred By: Murray Guadarrama Confirmed By: EDWIN VOSS MD
[2024-09-21 11:06] LABS: Hematocrit 44.6 % (37-47); Hemoglobin 15.4 g/dL (12.0-15.0); Mean Corp Hgb Conc 34.5 g/dL (32-36); Mean Corpuscular Hgb 31.3 pg (27.0-32.0); Mean Corpuscular Volume 90.7 fL (81-99); Mean Platelet Vol. 10.9 fl (6.2-12.0); Platelet Count 247 K/mm3 (150-450); RBC Distribution Width CV 13.5 % (11.6-14.6); RBC Distribution Width SD 45.3 fl (35.1-43.9); Red Blood Count 4.92 M/mm3 (4.2-5.4)
[2024-09-21 11:50] LABS: Anion Gap 11 (5-15); BUN 14 mg/dL (4-19); BUN/Creat Ratio 18.2 RATIO (10-20); Calcium,Total 9.4 mg/dL (7.6-11.0); Carbon Dioxide 24.3 mmol/L (21.0-32.0); Chloride 103 mmol/L (98-108); Creatinine, Serum 0.78 mg/dL (0.70-1.20); EST Glomerular Filtration Rate 86 (>60); Glucose 121 mg/dL (70-99); Potassium 4.3 mmol/L (3.3-5.1); Sodium Level 138 mmol/L (133-145)
--- NOTE | 2024-09-22 11:55 | PAT.ANESEVAL ---
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 When Was Last Pacemaker Check QUESTION #4 FULL TEXT: You/Your Family Experience fever (hyperthermia) with Anesthesia Last Oral Intake Last Oral intake: Last Oral Intake NPO since Meds taken in AM with sips of water? Meds patient instructed to take am of surgery PONV PONV - process artist: PONV - process artist Female Yes 09/20/24 13:51 HX of Motion Sickness No 09/20/24 13:51 HX of N/V After Surgery No 09/20/24 13:51 Non-Smoker No 09/20/24 13:51 Duration of Surgery greater Yes 09/20/24 13:51 than 60 minutes Number of Risk Factors 2 09/20/24 13:51 PONV Score Moderate Risk 09/20/24 13:51 Height & Weight Height & Weight: Anesthesia: Height & Weight Height 5 ft 5 in 09/17/24 13:25 Respiratory Assessment Respiratory Assessment - process artist: Respiratory Tract Infection Hx - process artist Hx Respiratory Tract Infection No 09/20/24 13:51 STOP Sleep Apnea STOP Sleep Apnea - process artist: STOP Sleep Apnea - process artist Hx Hypertension Yes: CONTROLLED WITH MEDS 09/20/24 13:51 Hx Sleep Apnea No 09/20/24 13:51 CPAP Yes: DOES NOT USE 10/27/23 13:20 BIPAP No 10/27/23 13:20 Do you snore loudly (louder No 09/20/24 13:51 than talking or can be heard Do you often feel tired/ Yes 09/20/24 13:51 fatigued/ sleepy during daytime? Has anyone observed you stop No 09/20/24 13:51 breathing during sleep? STOP Results Positive 09/20/24 13:51 QUESTION #5 FULL TEXT : Do you snore loudly (louder than talking or can be heard through closed doors)? 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 Specify any problems Hx of Preganancy in last 3 No 09/20/24 13:51 Months Nurse Filling Out Transfusion DSCHRIBER 09/20/24 13:51 & Questions: Date: 09/20/24 09/20/24 13:51 Time: 13:52 09/20/24 13:51 Patient unable to answer at this time (ie. confused, unrespo /Reproduction History /Reproductive History - process artist: /Reproductive Hx- process artist Hx Now No 09/20/24 13:51 Gestational Age (in weeks): EDC: Hx Hx Para Hx Section SAB No 09/20/24 13:51 [facility] Medical History (Updated 09/20/24 @ 13:59 by Amanda Shaw) Post-menopausal History of steroid therapy Thyroid disease Walker as ambulation aid Injury of head and neck Blackout Difficulty swallowing History of hiatal hernia Asthma History of pain when walking History of edema On home oxygen therapy Pain Loss of hearing Wears hearing aid Wears dentures Wears glasses Restless legs Gastric reflux Hoarseness Chronic cough Smoker Shortness of breath on exertion History of stress test Anxiety Depression Hypothyroid Hypertension Back pain Home Medications ?Medication ?Instructions ?Recorded ?Last Taken ?Type alprazolam 1 mg tablet (Xanax) 1 mg PO DAILY PRN Anxiety 09/22/15 Unknown History lisinopril 10 mg tablet 10 mg PO DAILY 09/22/15 08/29/24 History levothyroxine 100 mcg tablet 100 mcg PO DAILY 05/13/16 08/30/24 History furosemide 20 mg tablet 20 mg PO DAILY 11/29/17 08/29/24 History lansoprazole 15 mg capsule,delayed 15 mg PO DAILY 11/29/17 08/29/24 History release tizanidine 4 mg tablet 4 mg PO QHS 11/29/17 08/29/24 History albuterol sulfate 90 mcg/actuation 1 - 2 puff inhalation Q4H PRN PRN 12/05/19 11/03/23 03:18 History aerosol inhaler Sob &/Or Wheezing amitriptyline 25 mg tablet 25 mg PO QHS 06/26/21 08/29/24 History amlodipine 5 mg tablet 5 mg PO DAILY 06/26/21 08/29/24 History bupropion HCl 150 mg tablet,12 hr 150 mg PO DAILY 06/26/21 08/29/24 History sustained-release cholecalciferol (vitamin D3) 125 125 mcg PO DAILY 06/26/21 08/29/24 History mcg (5,000 unit) tablet ondansetron HCl 4 mg tablet 4 mg PO Q6H PRN Nausea 06/26/21 Unknown History oxycodone-acetaminophen 5 mg-325 1 tab PO Q8H PRN pain 3 days #10 11/05/22 Unknown Rx mg tablet (Percocet) tabs albuterol sulfate 2.5 mg/3 mL 2.5 mg inhalation Q6H PRN 10/27/23 Unknown History (0.083 %) solution for nebulization shortness of breath or wheezing benzonatate 100 mg capsule 100 mg PO BID PRN cough 09/01/24 Unknown History venlafaxine 150 mg 150 mg PO QAM 09/01/24 Unknown History capsule,extended release 24 hr (Effexor XR) Allergy/AdvReac Type Severity Reaction Status Date / Time amlodipine Allergy Intermediate Other Verified 09/20/24 13:47 doxycycline Allergy Intermediate Other Verified 09/20/24 13:47 meloxicam Allergy Intermediate Other Verified 09/20/24 13:47 Fish Containing Products Allergy Itching Verified 09/20/24 13:47 peanut Allergy Itching Verified 09/20/24 13:47 levofloxacin (From Levaquin) AdvReac Other Verified 09/20/24 13:47 Surgical History H/O hernia repair History of carpal tunnel surgery H/O tubal ligation History of placement of ear tubes Hx of breast reduction, elective Social History Smoking Status: Current every day smoker tobacco type: cigarettes alcohol intake: never Audit: Pertinent Findings Pertinent Findings EKG Perinent findings: 09/21/2024. 91 bpm. Normal sinus rhythm. Right axis deviation. Incomplete right bundle branch block. Stress test pertinent findings: 07/20/2019. Negative. EF 71%. Recommendation Anesthesia Recommendation Anesthesia recommendation: OPTIMIZED for anesthesia
[2024-10-04] VITALS (14 sets, daily range): BP systolic 80–131; BP diastolic 52–80; PULSE 77–85; RESP 16–24; TEMP 36.3–37.5; O2SAT 93–96; BMI 51.7
--- NOTE | 2024-10-04 09:33 | PCM.PRE.AN2 ---
ASA Classification* ASA Classification ASA Classification: 3 Assessment & Plan Anesthesia* Anesthesia Assessment Anesthesia Assessment: Discussed sedation and/or anesthesia options, risks, benefits, and alternatives with patient/parents/legal guardian/POA. Questions invited. The patient/parents/legal guardian/POA seems to understand and agrees to proceed with anesthesia plan. Reviewed the physical assessment, medical history, allergy history and patient home medications list prior to surgery/procedure/anesthetic and documented any changes. Performed airway and anesthesia risk assessments. Anesthesia Type Anesthesia Type: General Anesthesia Focused Assessment* Temperature: 99.2 F Pulse Rate: 85 Blood Pressure: 131/80 Respiratory Rate: 16 Pulse Ox: 95 Airway Assessment Mouth opens: >3 cm Mallampati Score: II Focused Labs Anesthesia Preop lab: CBC WBC 10.0 K/mm3 (4.4-11.0) 09/21/24 10:09/21/24 RBC 4.92 M/mm3 (4.2-5.4) 09/21/24 10:09/21/24 Hgb 15.4 g/dL (12.0-15.0) H 09/21/24 10:09/21/24 Hct 44.6 % (37-47) 09/21/24 10:09/21/24 Plt Count 247 K/mm3 (150-450) 09/21/24 10:09/21/24 CHEMISTRY Potassium 4.3 mmol/L (3.3-5.1) 09/21/24 10:09/21/24 Sodium 138 mmol/L (133-145) 09/21/24 10:09/21/24 BUN 14 mg/dL (4-19) 09/21/24 10:09/21/24 Creatinine 0.78 mg/dL (0.70-1.20) 09/21/24 10:09/21/24 Glucose 121 mg/dL (70-99) H 09/21/24 10:09/21/24 TSH 1.440 uIU/mL (0.300-4.200) 09/21/24 10:09/21/24 COAG Pre-Assessment Diagnosis/Proposed Procedure Planned Operative Procedure(s): OPEN VENTRAL HERNIA REPAIR WITH POSS MESH Anesthesia History 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 When Was Last Pacemaker Check QUESTION #4 FULL TEXT: You/Your Family Experience fever (hyperthermia) with Anesthesia Last Oral Intake Last Oral intake: Last Oral Intake NPO since 05:00 10/04/24 09:18 Meds taken in AM with sips of Yes 10/04/24 09:18 water? Meds patient instructed to take am of surgery PONV PONV - demonstrator knitting: PONV - demonstrator knitting Female Yes 09/20/24 13:51 HX of Motion Sickness No 09/20/24 13:51 HX of N/V After Surgery No 09/20/24 13:51 Non-Smoker No 09/20/24 13:51 Duration of Surgery greater Yes 09/20/24 13:51 than 60 minutes Number of Risk Factors 2 09/20/24 13:51 PONV Score Moderate Risk 09/20/24 13:51 Height & Weight Height & Weight: Anesthesia: Height & Weight Height 5 ft 5 in 10/04/24 09:18 Weight: 141 kg 10/04/24 09:18 Body Mass Index (BMI) 51.7 10/04/24 09:18 Respiratory Assessment Respiratory Assessment - demonstrator knitting: Respiratory Tract Infection Hx - demonstrator knitting Hx Respiratory Tract Infection No 09/20/24 13:51 STOP Sleep Apnea STOP Sleep Apnea - demonstrator knitting: STOP Sleep Apnea - demonstrator knitting Hx Hypertension Yes: CONTROLLED WITH MEDS 09/20/24 13:51 Hx Sleep Apnea No 09/20/24 13:51 CPAP Yes: DOES NOT USE 10/27/23 13:20 BIPAP No 10/27/23 13:20 Do you snore loudly (louder No 09/20/24 13:51 than talking or can be heard Do you often feel tired/ Yes 09/20/24 13:51 fatigued/ sleepy during daytime? Has anyone observed you stop No 09/20/24 13:51 breathing during sleep? STOP Results Positive 09/20/24 13:51 QUESTION #5 FULL TEXT : Do you snore loudly (louder than talking or can be heard through closed doors)? 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 Specify any problems Hx of Preganancy in last 3 No 09/20/24 13:51 Months Nurse Filling Out Transfusion DSCHRIBER 09/20/24 13:51 & Questions: Date: 09/20/24 09/20/24 13:51 Time: 13:52 09/20/24 13:51 Patient unable to answer at this time (ie. confused, unrespo /Reproduction History /Reproductive History - demonstrator knitting: /Reproductive Hx- demonstrator knitting Hx Now No 09/20/24 13:51 Gestational Age (in weeks): EDC: Hx Hx Para Hx Section SAB No 09/20/24 13:51 Active Medications Active Medications: Current Medications Generic Name Dose Route Start Last Admin Trade Name Freq PRN Reason Stop Dose Admin Clindamycin Phosphate 900 mg in 50 mls @ 75 mls/hr 10/04/24 11:00 Cleocin IV 10/04/24 11:39 INTRAOP ONE PFSH Medical History Post-menopausal History of steroid therapy Thyroid disease Walker as ambulation aid Injury of head and neck Blackout Difficulty swallowing History of hiatal hernia Asthma History of pain when walking History of edema On home oxygen therapy Pain Loss of hearing Wears hearing aid Wears dentures Wears glasses Restless legs Gastric reflux Hoarseness Chronic cough Smoker Shortness of breath on exertion History of stress test Anxiety Depression Hypothyroid Hypertension Back pain Home Medications ?Medication ?Instructions ?Recorded ?Last Taken ?Type alprazolam 1 mg tablet (Xanax) 1 mg PO DAILY PRN Anxiety 09/22/15 Unknown History lisinopril 10 mg tablet 10 mg PO DAILY 09/22/15 08/29/24 History levothyroxine 100 mcg tablet 100 mcg PO DAILY 05/13/16 10/04/24 05:00 History furosemide 20 mg tablet 20 mg PO DAILY 11/29/17 08/29/24 History lansoprazole 15 mg capsule,delayed 15 mg PO DAILY 11/29/17 08/29/24 History release tizanidine 4 mg tablet 4 mg PO QHS 11/29/17 08/29/24 History albuterol sulfate 90 mcg/actuation 1 - 2 puff inhalation Q4H PRN PRN 12/05/19 10/04/24 08:30 History aerosol inhaler Sob &/Or Wheezing amitriptyline 25 mg tablet 25 mg PO QHS 06/26/21 08/29/24 History amlodipine 5 mg tablet 5 mg PO DAILY 06/26/21 08/29/24 History bupropion HCl 150 mg tablet,12 hr 150 mg PO DAILY 06/26/21 08/29/24 History sustained-release cholecalciferol (vitamin D3) 125 125 mcg PO DAILY 06/26/21 08/29/24 History mcg (5,000 unit) tablet ondansetron HCl 4 mg tablet 4 mg PO Q6H PRN Nausea 06/26/21 Unknown History oxycodone-acetaminophen 5 mg-325 1 tab PO Q8H PRN pain 3 days #10 11/05/22 Unknown Rx mg tablet (Percocet) tabs albuterol sulfate 2.5 mg/3 mL 2.5 mg inhalation Q6H PRN 10/27/23 10/04/24 06:00 History (0.083 %) solution for nebulization shortness of breath or wheezing benzonatate 100 mg capsule 100 mg PO BID PRN cough 09/01/24 Unknown History venlafaxine 150 mg 150 mg PO QAM 09/01/24 Unknown History capsule,extended release 24 hr (Effexor XR) Allergy/AdvReac Type Severity Reaction Status Date / Time amlodipine Allergy Intermediate Other Verified 10/04/24 09:15 doxycycline Allergy Intermediate Other Verified 10/04/24 09:15 meloxicam Allergy Intermediate Other Verified 10/04/24 09:15 Fish Containing Products Allergy Itching Verified 10/04/24 09:15 peanut Allergy Itching Verified 10/04/24 09:15 levofloxacin (From Levaquin) AdvReac Other Verified 10/04/24 09:15 Surgical History H/O hernia repair History of carpal tunnel surgery H/O tubal ligation History of placement of ear tubes Hx of breast reduction, elective Social History Smoking Status: Current every day smoker tobacco type: cigarettes alcohol intake: never Review of Systems (Anesthesia) ROS Narrative System reviewed and no additional complaints, except as documented.
[2024-10-04] MEDS: 0.9% Normal Saline (1000mL) 1,000 ML 15 ML IV (09:34)
--- NOTE | 2024-10-04 11:00 | PCM.HP.STD ---
HPI - General General Date of Admission: 10/04/24 Date of Service: 10/04/24 Chief Complaint: Ventral hernia HPI Narrative SANTY RAZA, is a 63 F who presents today for elective ventral hernia repair with the possibility of mesh. Patient is known to me from her previous laparoscopic ventral hernia repair performed several years ago closer to the umbilicus. She recently presented to my office with what appeared to be a small new her hernia more in the epigastric region. CT scan was performed and showed a fat-containing hernia however the defect seemed to be relatively small at around 2 cm or so. I offered her an open hernia repair with the possibility of mesh based on the size of the defect and the quality of the fascia. She wished to proceed. She presents today for this elective repair. She has no issues or complaints [facility] Medical History Post-menopausal History of steroid therapy Thyroid disease Walker as ambulation aid Injury of head and neck Blackout Difficulty swallowing History of hiatal hernia Asthma History of pain when walking History of edema On home oxygen therapy Pain Loss of hearing Wears hearing aid Wears dentures Wears glasses Restless legs Gastric reflux Hoarseness Chronic cough Smoker Shortness of breath on exertion History of stress test Anxiety Depression Hypothyroid Hypertension Back pain Home Medications ?Medication ?Instructions ?Recorded ?Last Taken ?Type alprazolam 1 mg tablet (Xanax) 1 mg PO DAILY PRN Anxiety 09/22/15 Unknown History lisinopril 10 mg tablet 10 mg PO DAILY 09/22/15 08/29/24 History levothyroxine 100 mcg tablet 100 mcg PO DAILY 05/13/16 10/04/24 05:00 History furosemide 20 mg tablet 20 mg PO DAILY 11/29/17 08/29/24 History lansoprazole 15 mg capsule,delayed 15 mg PO DAILY 11/29/17 08/29/24 History release tizanidine 4 mg tablet 4 mg PO QHS 11/29/17 08/29/24 History albuterol sulfate 90 mcg/actuation 1 - 2 puff inhalation Q4H PRN PRN 12/05/19 10/04/24 08:30 History aerosol inhaler Sob &/Or Wheezing amitriptyline 25 mg tablet 25 mg PO QHS 06/26/21 08/29/24 History amlodipine 5 mg tablet 5 mg PO DAILY 06/26/21 08/29/24 History bupropion HCl 150 mg tablet,12 hr 150 mg PO DAILY 06/26/21 08/29/24 History sustained-release cholecalciferol (vitamin D3) 125 125 mcg PO DAILY 06/26/21 08/29/24 History mcg (5,000 unit) tablet ondansetron HCl 4 mg tablet 4 mg PO Q6H PRN Nausea 06/26/21 Unknown History oxycodone-acetaminophen 5 mg-325 1 tab PO Q8H PRN pain 3 days #10 11/05/22 Unknown Rx mg tablet (Percocet) tabs albuterol sulfate 2.5 mg/3 mL 2.5 mg inhalation Q6H PRN 10/27/23 10/04/24 06:00 History (0.083 %) solution for nebulization shortness of breath or wheezing benzonatate 100 mg capsule 100 mg PO BID PRN cough 09/01/24 Unknown History venlafaxine 150 mg 150 mg PO QAM 09/01/24 Unknown History capsule,extended release 24 hr (Effexor XR) Allergy/AdvReac Type Severity Reaction Status Date / Time amlodipine Allergy Intermediate Other Verified 10/04/24 09:15 doxycycline Allergy Intermediate Other Verified 10/04/24 09:15 meloxicam Allergy Intermediate Other Verified 10/04/24 09:15 Fish Containing Products Allergy Itching Verified 10/04/24 09:15 peanut Allergy Itching Verified 10/04/24 09:15 levofloxacin (From Levaquin) AdvReac Other Verified 10/04/24 09:15 Surgical History H/O hernia repair History of carpal tunnel surgery H/O tubal ligation History of placement of ear tubes Hx of breast reduction, elective Social History Smoking Status: Current every day smoker tobacco type: cigarettes alcohol intake: never Vital Signs Vital Signs Vital Signs: 10/04/24 09:18 10/04/24 09:18 10/04/24 09:34 Temperature 99.2 F H 99.2 F H Temperature Source Temporal Pulse Rate 85 85 Respiratory Rate 16 16 Respiratory Pattern Normal Blood Pressure 131/80 H 131/80 H Blood Pressure Mean 97 Blood Pressure Source Monitor Blood Pressure Position Semi-Fowlers Blood Pressure Location Left Arm Pulse Ox 95 95 Oxygen Delivery Method Room Air Weight Weight: 310 lb 13.628 oz Body Mass Index (BMI) 51.7 Physical Exam Narrative She is alert and oriented x 3. She is in no acute distress. Abdomen is obese, soft and nontender. Region of hernia with some mild discomfort. Results Lab / Micro Data 09/21/24 10:21 09/21/24 10:21 Assessment & Plan Assessment/Plan (1) Hernia: PLAN: Plan The patient is a 63-year-old female with an epigastric ventral hernia. I have offered her repair with possible mesh. We discussed the details of the planned procedure and she wishes to proceed. This will begin momentarily. Antibiotics will be given. Charges/Coding Visit Charges Inpatient E&M: 31816 Init Hosp L3
[2024-10-04] MEDS: Clindamycin 900 MG/50 ML BAG 75 MG IV (11:17)
[2024-10-04] MEDS: Bupivacaine Mpf 0.5% 30 ML VIAL (11:27)
--- NOTE | 2024-10-04 12:10 | DCINST_ITS ---
Discharge Instructions Diet Discharge Diet: Light diet - advance as tolerated Activity Discharge Activity: Return to Normal Activity and May Shower May shower in (days): 1 Lifting Restrictions: No lifting pushing or pulling more than 20 pounds for 6 weeks Additional Activity Instructions:: Wear abdominal binder as needed for comfort Dressing / Incision Call your doctor if your incision/area has: Continuous Slow Oozing, Sudden Increased Bleeding, Increased Pain/ Swelling, Increased Redness, Foul Smelling Discharge and Swelling at the incision site Call your doctor if you observe: Fever of 101 or Higher Remove Dressing in: 2 days Cleanse incision/area with: Soap & Water Follow Up Care Please Follow Up With: Murray Guadarrama MD When: 2 weeks. Please call office to schedule appointment Test Results: Test results from this visit will be discussed in further detail at your follow- up appointment, if applicable. Discharge Plan Admission Primary Reason for Your Visit: Ventral hernia repair Attending Provider: Murray Guadarrama Primary Care Provider: Deloris Chavez NP Instructions Print Language: Tajik Discharge Orders/Prescriptions Prescriptions: New oxycodone-acetaminophen [Percocet] 5-325 mg tablet 1 tab PO Q8H PRN (Reason: pain) 4 Days Qty: 10 0RF Continued venlafaxine [Effexor XR] 150 mg capsule,extended release 24hr 150 mg PO QAM benzonatate 100 mg capsule 100 mg PO BID PRN (Reason: cough) alprazolam [Xanax] 1 MG tablet 1 mg PO DAILY PRN (Reason: Anxiety) lisinopril 10 MG tablet 10 mg PO DAILY levothyroxine 100 MCG tablet 100 mcg PO DAILY tizanidine 4 MG tablet 4 mg PO QHS Patient Comments: lansoprazole 15 MG capsule,delayed release(DR/EC) 15 mg PO DAILY Patient Comments: furosemide 20 MG tablet 20 mg PO DAILY Patient Comments: albuterol sulfate 1 PUFF inhaler 1 - 2 puff inhalation Q4H PRN PRN (Reason: Sob &/Or Wheezing) bupropion HCl 150 mg Tablet Sustained-Release 12 Hr 150 mg PO DAILY ondansetron HCl 4 mg Tablet 4 mg PO Q6H PRN (Reason: Nausea) amlodipine 5 mg Tablet 5 mg PO DAILY amitriptyline 25 mg Tablet 25 mg PO QHS cholecalciferol (vitamin D3) 125 mcg (5,000 unit) Tablet 125 mcg PO DAILY oxycodone-acetaminophen [Percocet] 5-325 mg tablet 1 tab PO Q8H PRN (Reason: pain) 3 Days Qty: 10 0RF albuterol sulfate 2.5 mg /3 mL (0.083 %) solution for nebulization 2.5 mg inhalation Q6H PRN (Reason: shortness of breath or wheezing) Patient Comments: inhale 1 vial in nebulizer every 6 hours NEEDED FOR FEVER wheezing or shortness of breath Referrals / Follow Up: Deloris Chavez MOSS PICKER, MOSS PICKER-C [Primary Care Provider] - Disposition Disposition (needs filled in before D/C Order can be placed): Home, Self Care
--- NOTE | 2024-10-04 12:16 | PCM.OPRPT ---
Problems Associated Problem List Diagnoses (1) Hernia: Operative Report (Standard) Operative Information Date of Procedure: 10/04/24 Pre-Operative Diagnosis: Ventral hernia Post-Operative Diagnosis: Same Surgery/Procedure Performed: Open ventral hernia repair high climber: Yes Tobacco Sorter: Светлана Sheldon Tasks completed by assistant professor of psychology: Closing and Retracting Additional department assistant?: No Type of Anesthesia: General and Local RN Documented Start/Stop Times: Operation Date: 10/04/24 11:00 Case Time Into Pre-Op 10/04/24 09:16 Out of Pre-Op 10/04/24 11:01 Anesthesia Start 10/04/24 11:03 Into Room 10/04/24 11:03 Procedure Start 10/04/24 11:24
--- NOTE | 2024-10-04 12:27 | PCM.POST.ANE ---
Anesthesia: Postop Eval I Current Vital Signs Temperature: 97.4 F Pulse Rate: 83 Blood Pressure: 95/67 Respiratory Rate: 16 Pulse Ox: 94 Oxygen Delivery Method: Simple Mask Oxygen Flow Rate (L/min): 6 Assessment Airway patent: Yes Spontaneous unlabored respirations: Yes Mental status: Awake nausea: No Vomiting: No Anesthesia Complication: No Fluid Hydration Crystalloid volume administer (ml): 900 Total IV fluid infused: 900 Progress Note Anesthesia document: Postop Eval 1 completed: Yes
--- NOTE | 2024-10-04 12:34 | PCM.OPRPT ---
Procedures Digestive 40xxx-49xxx: 92757 RPR AA HRN 1ST < 3 NCR/STRN Operative Report (Standard) Operative Information Date of Procedure: 10/04/24 Pre-Operative Diagnosis: Ventral hernia Post-Operative Diagnosis: Same Surgery/Procedure Performed: Ventral hernia repair managing manager: Yes Banking Attorney: Светлана Sheldon Tasks completed by graduate assistant: Closing and Retracting Additional pier master assistant?: No Type of Anesthesia: General and Local RN Documented Start/Stop Times: Operation Date: 10/04/24 11:00 Case Time Into Pre-Op 10/04/24 09:16 Out of Pre-Op 10/04/24 11:01 Anesthesia Start 10/04/24 11:03 Into Room 10/04/24 11:03 Procedure Start 10/04/24 11:24 Procedure Start Time: 11:24 Procedure Stop Time: 12:15 Select all DRAINS/GRAFTS/IMPLANTS that apply: None Special Medications: Clindamycin 900 mg IV Estimated Blood Loss: 10 mL Specimen collected: No Description of surgery: The patient is a 63-year-old female who presents today for a ventral hernia. I performed a previous ventral hernia repair with mesh several years ago. This was done laparoscopically. She presented with a new bulge in the upper abdomen. A CT scan was performed for planning purposes. I felt that this was most likely a new hernia above the previous hernia. I felt that the defect was probably fairly small based on the CAT scan images. I anticipated about 2 cm defect. I recommended open repair with possible mesh versus primary repair. Patient was brought to the operating room today following informed consent. Antibiotics were given and a timeout was performed. She was placed supine on the operative table with arms outstretched on arm boards. General anesthesia was induced. Once adequately sedated the abdomen is then prepped and draped in the usual sterile manner. A small incision was made along the midline in the upper abdomen near the area of the hernia. Bovie electrocautery was then used dissect down through subtendinous tissues after the incision was made using #15 blade. Local anesthetic was also infiltrated prior to the incision. I was able to dissect down to the level of the fascia and immediately encountered the fascial defect. This measured about 2.5 cm. The hernia sac was dissected off of the surrounding structures. It appeared that this fascial defect was just superior to the previous mesh as I could see the anchoring suture from the previous repair at the inferior aspect of this defect. Since this is a fairly small hernia and her fascia seem to be fairly decent quality, I elected to repair this primarily. I ideally did not want to use mesh for several reasons mostly due to the fact that she would be a higher risk of infection if this was placed on an onlay manner. I also felt that there would be difficulty getting purchase of the second mesh if this was placed on top of the previous mesh. Given all of her comorbidities I felt that a primary repair might be the best option. The primary repair was performed using #1 Ethibond performed in a multiple [id number] manner. A total of 5 [id number]'s were placed. This closed the fascial defect nicely. The wound was copiously irrigated. Hemostasis was excellent. The wound was closed using 3-0 Vicryl in a subcutaneous as well as a subdermal manner. 4-0 Vicryl was run in the skin. Skin glue was applied as dressing. Abdominal binder was also placed. She was awakened by anesthesia and taken to recovery in good condition A MANAGER SUPPORT was utilized as a assistant professor of art. His role included assistance with retraction and closure of the wound Surgical Findings: 2.5 cm fascial defect just above previous mesh Complications Complications: No Admit VTE Documentation VTE Present on Admission: No VTE Mechan Device Prophylaxis: SCD's VTE Pharm Prophylaxis ordered?: No Reason prophylaxis not ordered: Treatment Not Indicated
--- NOTE | 2024-10-04 12:51 | POSTOPAN2_ITS ---
Anesthesia Postop Eval I Sum Postop Eval Completion status Anesthesia document: Postop Eval 1 completed: Yes Anesthesia Postop Eval I Summary Anesthesia Postop Eval I Summary: Anesthesia Postop Eval I: Assessment Summary Airway patent Yes 10/04/24 12:28 [email or web address] Spontaneous unlabored Yes 10/04/24 12:28 [email or web address] [email or web address] respirations Mental status Awake 10/04/24 12:28 [email or web address] nausea No 10/04/24 12:28 [email or web address] [email or web address] Vomiting No 10/04/24 12:28 [email or web address] Anesthesia Postop Eval I: Fluid Summary Crystalloid volume administer 900 10/04/24 12:28 [email or web address] (ml) Colloids volume administered ( ml) Blood Product volume administered (ml) Total IV fluid infused 900 10/04/24 12:28 [email or web address] Anesthesia Postop Eval I: Summary Notes Anesthesia Complication No 10/04/24 12:28 [email or web address] Anesthesia Complication Comment: Post-operative progress note Anesthesia: Postop Eval II Evaluation Mental status: Awake Pain Level: 0 nausea: No Vomiting: No
--- NOTE | 2024-10-04 12:51 | PCM.POSTANE2 ---
Anesthesia Postop Eval I Sum Postop Eval Completion status Anesthesia document: Postop Eval 1 completed: Yes Anesthesia Postop Eval I Summary Anesthesia Postop Eval I Summary: Anesthesia Postop Eval I: Assessment Summary Airway patent Yes 10/04/24 12:28 TRAILER [email or web address] Spontaneous unlabored Yes 10/04/24 12:28 TRAILER [email or web address] respirations Mental status Awake 10/04/24 12:28 TRAILER [email or web address] nausea No 10/04/24 12:28 TRAILER [email or web address] Vomiting No 10/04/24 12:28 TRAILER [email or web address] Anesthesia Postop Eval I: Fluid Summary Crystalloid volume administer 900 10/04/24 12:28 TRAILER [email or web address] (ml) Colloids volume administered ( ml) Blood Product volume administered (ml) Total IV fluid infused 900 10/04/24 12:28 TRAILER [email or web address] Anesthesia Postop Eval I: Summary Notes Anesthesia Complication No 10/04/24 12:28 TRAILER [email or web address] Anesthesia Complication Comment: Post-operative progress note Anesthesia: Postop Eval II Evaluation Mental status: Awake Pain Level: 0 nausea: No Vomiting: No
[2024-10-04] MEDS: 0.9% Normal Saline (1000mL) 1,000 ML 50 ML IV (12:54)
== END 2024-10-04 14:47 | disposition home or self-care (01) ==
LOC: SDC 08:59 → AC 09:01
PROVIDERS: Anesthesiology; PCP Registered Nurse; Referring Provider Surgery; Visit Provider Surgery
PROC: (CPT 49591; principal; 2024-10-04 10:45)
DX: K43.9 Ventral hernia without obstruction or gangrene (principal); K21.9 Gastro-esophageal reflux disease without esophagitis; I10 Essential (primary) hypertension; Z79.890 Hormone replacement therapy; J45.909 Unspecified asthma, uncomplicated; Z98.51 Tubal ligation status; F17.210 Nicotine dependence, cigarettes, uncomplicated; E03.9 Hypothyroidism, unspecified
CPT/HCPCS: 49591; 00832; 36415; 80048; 84443; 85027; 93005; J2405

== ENCOUNTER 2025-01-31 08:08 | Day surgery (SDC) | payer MEDICARE, MEDICAID, SELFPAY ==
--- NOTE | 2025-01-25 17:00 | PAT.ANE_ITS ---
Pre-Assessment Diagnosis/Proposed Procedure Planned Operative Procedure(s): Block, Caudal Anesthesia History Anesthesia History - large animal husbandry technician: Anesthesia History - large animal husbandry technician Hx Hospitalization No 01/25/25 09:33 Any Problems With Anesthesia No 01/25/25 09:33 Cholinesterase deficiency No 01/25/25 09:33 You/Your Family Experience No 01/25/25 09:33 fever (hyperthermia) with Relationship Recent Exposure to Contagious No 10/04/24 09:18 Disease Does patient have nerve No 01/25/25 09:33 stimulator Patient instructed to have device shut off --Does patient have Pacemaker or ICD? When Was Last Pacemaker Check QUESTION #4 FULL TEXT: You/Your Family Experience fever (hyperthermia) with Anesthesia Last Oral Intake Last Oral intake: Last Oral Intake NPO since Meds taken in AM with sips of water? Meds patient instructed to take am of surgery PONV PONV - large animal husbandry technician: PONV - large animal husbandry technician Female Yes 01/25/25 09:33 HX of Motion Sickness No 01/25/25 09:33 HX of N/V After Surgery No 01/25/25 09:33 Non-Smoker Yes 01/25/25 09:33 Duration of Surgery greater No 01/25/25 09:33 than 60 minutes Number of Risk Factors 2 01/25/25 09:33 PONV Score Moderate Risk 01/25/25 09:33 Height & Weight Height & Weight: Anesthesia: Height & Weight Height 5 ft 5 in 10/04/24 09:18 Respiratory Assessment Respiratory Assessment - large animal husbandry technician: Respiratory Tract Infection Hx - large animal husbandry technician Hx Respiratory Tract Infection No 01/25/25 09:33 STOP Sleep Apnea STOP Sleep Apnea - large animal husbandry technician: STOP Sleep Apnea - large animal husbandry technician Hx Hypertension Yes: CONTROLLED WITH MEDS 01/25/25 09:33 Hx Sleep Apnea No 01/25/25 09:33 CPAP Yes: DOES NOT USE 01/25/25 09:33 BIPAP No 01/25/25 09:33 Do you snore loudly (louder No 01/25/25 09:33 than talking or can be heard Do you often feel tired/ No 01/25/25 09:33 fatigued/ sleepy during daytime? Has anyone observed you stop No 01/25/25 09:33 breathing during sleep? STOP Results Negative 01/25/25 09:33 QUESTION #5 FULL TEXT : Do you snore loudly (louder than talking or can be heard through closed doors)? Tobacco Use History Tobacco Use History - large animal husbandry technician: Tobacco Use History - large animal husbandry technician Tobacco Use Smoking Status Former smoker 01/25/25 09:33 Hx Tobacco Use Yes 01/25/25 09:33 Years Smoking Packs Smoked per Day Smoking Cessation Date was Yes - quit smoking within 15 01/25/25 09:33 within the last 15 years years Hx Smoking Cessation Date 10/13/24 01/25/25 09:33 Hx Smoking Cessation Counseling Hematologic Medial History Hematologic Hx - large animal husbandry technician: Hematologic Medical Hx - pilot plant research technician Hx of Blood Transfusion No 01/25/25 09:33 Hx of Transfusion in last 3 No 01/25/25 09:33 Months Date of Last Transfusion (if within last 3 months) Ever experience any problems No 01/25/25 09:33 with transfusion(s)? Specify any problems Hx of Preganancy in last 3 No 01/25/25 09:33 Months Nurse Filling Out Transfusion VCHRISTIN 01/25/25 09:33 & Questions: Date: 01/25/25 01/25/25 09:33 Time: 09:34 01/25/25 09:33 Patient unable to answer at this time (ie. confused, unrespo /Reproduction History /Reproductive History - large animal husbandry technician: /Reproductive Hx- large animal husbandry technician Hx Now No 01/25/25 09:33 Gestational Age (in weeks): EDC: Hx Hx Para Hx Section SAB No 01/25/25 09:33 [facility] Medical History (Updated 01/25/25 @ 09:37 by Snow Love) Former smoker Post-menopausal History of steroid therapy Thyroid disease Walker as ambulation aid Injury of head and neck Blackout Difficulty swallowing History of hiatal hernia Asthma History of pain when walking History of edema On home oxygen therapy Pain Loss of hearing Wears hearing aid Wears dentures Wears glasses Restless legs Gastric reflux Hoarseness Chronic cough Shortness of breath on exertion History of stress test Anxiety Depression Hypothyroid Hypertension Back pain Home Medications ?Medication ?Instructions ?Recorded ?Last Taken ?Type alprazolam 1 mg tablet (Xanax) 1 mg PO DAILY PRN Anxie ty 09/22/15 Unknown History furosemide 20 mg tablet 20 mg PO DAILY 11/29/1708/14 History lansoprazole 15 mg capsule,delayed 15 mg PO DAILY 11/1408/29/24 History release albuterol sulfate 90 mcg/actuation 1 - 2 puff inhalati on Q4H PRN PRN 12/05/19 10/04/24 08:30 History aerosol inhaler Sob &/Or Wheezing amitriptyline 25 mg tablet 25 mg PO QHS 06/26/2108/29 History amlodipine 5 mg tablet 5 mg PO DAILY 06/26/2108/29 History cholecalciferol (vitamin D3) 125 125 mcg PO DAILY 06/1608/29/24 History mcg (5,000 unit) tablet ondansetron HCl 4 mg tablet 4 mg PO Q6H PRN Nausea 05/07 Unknown History albuterol sulfate 2.5 mg/3 mL 2.5 mg inhalation Q6H [place] N 10/27/23 10/04/24 06:00 History (0.083 %) solution for nebulization shortness of breat h or wheezing venlafaxine 150 mg 150 mg PO QAM 09/01/24 Unkno wn History capsule,extended release 24 hr (Effexor XR) OXYGEN - Supplemental ([facility] 01/25/25 Unknown History INFORMATIONAL USE ONLY) atorvastatin 10 mg tablet 10 mg PO QHS cholesterol 06/09 Unknown History budesonide-formoterol HFA 160 2 puff inhalation BID Unknown History mcg-4.5 mcg/actuation aerosol inhaler (Symbicort) bupropion HCl 300 mg 24 hr tablet, 300 mg PO DAILY 06/09 Unknown History extended release gabapentin 100 mg capsule 100 mg PO DAILY 01/25/25 Unk nown History hydrocodone-acetaminophen 5-325mg 1 tab PO Q8H PRN marian n 01/25/25 Unknown History 5mg-325mg levothyroxine 200 mcg tablet 200 mcg PO DAILY 01/25/25 Unknown History lisinopril 40 mg tablet 40 mg PO DAILY 01/25/25 Unkn own History loratadine 10 mg tablet 10 mg PO DAILY 01/25/25 Unkn own History Allergy/AdvReac Type Severity Reaction Status Date / Time amlodipine Allergy Intermediate Other Verified 01/25/25 09:21 doxycycline Allergy Intermediate Other Verified 01/25/25 09:21 meloxicam Allergy Intermediate Other Verified 01/25/25 09:21 Fish Containing Products Allergy Itching Verified 01/25/25 09:21 peanut Allergy Itching Verified 01/25/25 09:21 levofloxacin (From Levaquin) AdvReac Other Verified 01/25/25 09:21 Surgical History (Updated 01/25/25 @ 09:33 by Snow Love) Hx of ventral hernia repair S/P repair of ventral hernia H/O hernia repair History of carpal tunnel surgery H/O tubal ligation History of placement of ear tubes Hx of breast reduction, elective Social History Smoking Status: Former smoker alcohol intake: never Audit: Pertinent Findings Pertinent Findings EKG Perinent findings: September 21, 2024. Normal sinus rhythm. Left axis deviation. Incomplete right bundle branch block. Stress test pertinent findings: July 20, 2019. EF of 71%. No myocardial perfusion changes consider diagnostic for stress-induced ischemia. Recommendation Anesthesia Recommendation Anesthesia recommendation: OPTIMIZED for anesthesia
[2025-01-31] VITALS (7 sets, daily range): BP systolic 96–129; BP diastolic 52–78; PULSE 69–78; RESP 16–18; TEMP 36.1–37.1; O2SAT 94–99; BMI 52.4
[2025-01-31] MEDS: Lactated Ringers 1,000 ML 15 ML IV (08:58)
--- NOTE | 2025-01-31 09:08 | PCM.PRE.AN2 ---
ASA Classification* ASA Classification ASA Classification: 3 Assessment & Plan Anesthesia* Anesthesia Assessment Anesthesia Assessment: Discussed sedation and/or anesthesia options, risks, benefits, and alternatives with patient/parents/legal guardian/POA. Questions invited. The patient/parents/legal guardian/POA seems to understand and agrees to proceed with anesthesia plan. Reviewed the physical assessment, medical history, allergy history and patient home medications list prior to surgery/procedure/anesthetic and documented any changes. Performed airway and anesthesia risk assessments. Anesthesia Type Anesthesia Type: MAC History Source History Obtained from:: Patient and Chart Anesthesia Focused Assessment* Temperature: 97.5 F Pulse Rate: 76 Blood Pressure: 129/70 Respiratory Rate: 18 Pulse Ox: 97 Oxygen Delivery Method: Nasal Cannula Oxygen Flow Rate (L/min): 2 Airway Assessment Mouth opens: 2 cm Mallampati Score: IV Teeth Condition: Dentures (Patient has full upper and lower dentures. They are out.) Neck Range of motion (ROM): Limited ROM (Somewhat Decreased) Labs Anesthesia Preop lab: CBC WBC 10.0 K/mm3 (4.4-11.0) 09/21/24 10:09/21/24 RBC 4.92 M/mm3 (4.2-5.4) 09/21/24 10:09/21/24 Hgb 15.4 g/dL (12.0-15.0) H 09/21/24 10:09/21/24 Hct 44.6 % (37-47) 09/21/24 10:09/21/24 Plt Count 247 K/mm3 (150-450) 09/21/24 10:09/21/24 CHEMISTRY Potassium 4.3 mmol/L (3.3-5.1) 09/21/24 10:09/21/24 Sodium 138 mmol/L (133-145) 09/21/24 10:09/21/24 BUN 14 mg/dL (4-19) 09/21/24 10:09/21/24 Creatinine 0.78 mg/dL (0.70-1.20) 09/21/24 10:09/21/24 Glucose 121 mg/dL (70-99) H 09/21/24 10:09/21/24 TSH 1.440 uIU/mL (0.300-4.200) 09/21/24 10:21 09/21/24 COAG Pre-Assessment Diagnosis/Proposed Procedure Planned Operative Procedure(s): Block, Caudal Anesthesia History 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 When Was Last Pacemaker Check QUESTION #4 FULL TEXT: You/Your Family Experience fever (hyperthermia) with Anesthesia Last Oral Intake Last Oral intake: Last Oral Intake NPO since 00:00 01/31/25 08:49 Meds taken in AM with sips of Yes 01/31/25 08:49 water? Meds patient instructed to levothyroxine 01/31/25 08:49 take am of surgery Any additional information?: Yes Meds taken in AM with sips of water?: Yes Meds patient instructed to take am of surgery: Levothyroxine, prednisone. PONV PONV - welding machine operator arc: PONV - welding machine operator arc Female Yes 01/25/25 09:33 HX of Motion Sickness No 01/25/25 09:33 HX of N/V After Surgery No 01/25/25 09:33 Non-Smoker Yes 01/25/25 09:33 Duration of Surgery greater No 01/25/25 09:33 than 60 minutes Number of Risk Factors 2 01/25/25 09:33 PONV Score Moderate Risk 01/25/25 09:33 Height & Weight Height & Weight: Anesthesia: Height & Weight Height 5 ft 5 in 01/31/25 08:49 Weight: 143.1 kg 01/31/25 08:49 Body Mass Index (BMI) 52.4 01/31/25 08:49 Respiratory Assessment Respiratory Assessment - welding machine operator arc: Respiratory Tract Infection Hx - welding machine operator arc Hx Respiratory Tract Infection No 01/25/25 09:33 STOP Sleep Apnea STOP Sleep Apnea - welding machine operator arc: STOP Sleep Apnea - welding machine operator arc Hx Hypertension Yes: CONTROLLED WITH MEDS 01/25/25 09:33 Hx Sleep Apnea No 01/25/25 09:33 CPAP Yes: DOES NOT USE 01/25/25 09:33 BIPAP No 01/25/25 09:33 Do you snore loudly (louder No 01/25/25 09:33 than talking or can be heard Do you often feel tired/ No 01/25/25 09:33 fatigued/ sleepy during daytime? Has anyone observed you stop No 01/25/25 09:33 breathing during sleep? STOP Results Negative 01/25/25 09:33 QUESTION #5 FULL TEXT : Do you snore loudly (louder than talking or can be heard through closed doors)? Tobacco Use History Tobacco Use History - welding machine operator arc: Tobacco Use History - welding machine operator arc Tobacco Use Smoking Status Former smoker 01/25/25 09:33 Hx Tobacco Use Yes 01/25/25 09:33 Years Smoking Packs Smoked per Day Smoking Cessation Date was Yes - quit smoking within 15 01/25/25 09:33 within the last 15 years years Hx Smoking Cessation Date 10/13/24 01/25/25 09:33 Hx Smoking Cessation Counseling Hematologic Medial History Hematologic Hx - welding machine operator arc: Hematologic Medical Hx - rn documentation specialist Hx of Blood Transfusion No 01/25/25 09:33 Hx of Transfusion in last 3 No 01/25/25 09:33 Months Date of Last Transfusion (if within last 3 months) Ever experience any problems No 01/25/25 09:33 with transfusion(s)? Specify any problems Hx of Preganancy in last 3 No 01/25/25 09:33 Months Nurse Filling Out Transfusion VCHRISTIN 01/25/25 09:33 & Questions: Date: 01/25/25 01/25/25 09:33 Time: 09:34 01/25/25 09:33 Patient unable to answer at this time (ie. confused, unrespo /Reproduction History /Reproductive History - welding machine operator arc: /Reproductive Hx- welding machine operator arc Hx Now No 01/25/25 09:33 Gestational Age (in weeks): EDC: Hx Hx Para Hx Section SAB No 01/25/25 09:33 Active Medications Active Medications: Current Medications Generic Name Dose Route Start Last Admin Trade Name Freq PRN Reason Stop Dose Admin Lactated Ringer's 1,000 mls @ 15 mls/hr 01/31/25 08:45 01/31/25 08:58 IV 15 mls/hr .Q48H ZAIRE Administration PFSH Medical History Former smoker Post-menopausal History of steroid therapy Thyroid disease Walker as ambulation aid Injury of head and neck Blackout Difficulty swallowing History of hiatal hernia Asthma History of pain when walking History of edema On home oxygen therapy Pain Loss of hearing Wears hearing aid Wears dentures Wears glasses Restless legs Gastric reflux Hoarseness Chronic cough Shortness of breath on exertion History of stress test Anxiety Depression Hypothyroid Hypertension Back pain Home Medications ?Medication ?Instructions ?Recorded ?Last Taken ?Type alprazolam 1 mg tablet (Xanax) 1 mg PO DAILY PRN Anxiety 09/22/15 Unknown History furosemide 20 mg tablet 20 mg PO DAILY 11/29/17 08/29/24 History lansoprazole 15 mg capsule,delayed 15 mg PO DAILY 11/29/17 08/29/24 History release albuterol sulfate 90 mcg/actuation 1 - 2 puff inhalation Q4H PRN PRN 12/05/19 10/04/24 08:30 History aerosol inhaler Sob &/Or Wheezing amitriptyline 25 mg tablet 25 mg PO QHS 06/26/21 08/29/24 History amlodipine 5 mg tablet 5 mg PO DAILY 06/26/21 08/29/24 History cholecalciferol (vitamin D3) 125 125 mcg PO DAILY 06/26/21 08/29/24 History mcg (5,000 unit) tablet ondansetron HCl 4 mg tablet 4 mg PO Q6H PRN Nausea 06/26/21 Unknown History albuterol sulfate 2.5 mg/3 mL 2.5 mg inhalation Q6H PRN 10/27/23 10/04/24 06:00 History (0.083 %) solution for nebulization shortness of breath or wheezing venlafaxine 150 mg 150 mg PO QAM 09/01/24 Unknown History capsule,extended release 24 hr (Effexor XR) OXYGEN - Supplemental ([facility] 01/25/25 Unknown History INFORMATIONAL USE ONLY) atorvastatin 10 mg tablet 10 mg PO QHS cholesterol 01/25/25 Unknown History budesonide-formoterol HFA 160 2 puff inhalation BID 01/25/25 Unknown History mcg-4.5 mcg/actuation aerosol inhaler (Symbicort) bupropion HCl 300 mg 24 hr tablet, 300 mg PO DAILY 01/25/25 Unknown History extended release gabapentin 100 mg capsule 100 mg PO DAILY 01/25/25 Unknown History hydrocodone-acetaminophen 5-325mg 1 tab PO Q8H PRN pain 01/25/25 Unknown History 5mg-325mg levothyroxine 200 mcg tablet 200 mcg PO DAILY 01/25/25 01/31/25 History lisinopril 40 mg tablet 40 mg PO DAILY 01/25/25 Unknown History loratadine 10 mg tablet 10 mg PO DAILY 01/25/25 Unknown History Allergy/AdvReac Type Severity Reaction Status Date / Time amlodipine Allergy Intermediate Other Verified 01/31/25 08:49 doxycycline Allergy Intermediate Other Verified 01/31/25 08:49 meloxicam Allergy Intermediate Other Verified 01/31/25 08:49 Fish Containing Products Allergy Itching Verified 01/31/25 08:49 peanut Allergy Itching Verified 01/31/25 08:49 levofloxacin (From Levaquin) AdvReac Other Verified 01/31/25 08:49 Surgical History Hx of ventral hernia repair S/P repair of ventral hernia H/O hernia repair History of carpal tunnel surgery H/O tubal ligation History of placement of ear tubes Hx of breast reduction, elective Social History Smoking Status: Former smoker alcohol intake: never Review of Systems (Anesthesia) ROS Narrative System reviewed and no additional complaints, except as documented. Physical Exam Resp clear to auscultation bilaterally
--- NOTE | 2025-01-31 09:23 | RAD_ITS ---
PROCEDURE: FLUOR GUIDANCE FOR SPINE INJ 01/31/2025 REASON FOR EXAM: BLOCK; CAUDAL TECHNIQUE: FLUOR GUIDANCE FOR SPINE INJ. Dose report: 6.6 seconds of fluoroscopy. 5.78 mGy. 1 image was submitted. COMPARISON: None FINDINGS: Intraoperative imaging provided for caudal block. RAD/Fluor Guidance for Spine Inj IMPRESSION: Intraoperative imaging provided for caudal block. Reading Location: [facility]
[2025-01-31] MEDS: 0.9% Normal Saline (Pres. free 10 ML Vial (09:29)
[2025-01-31] MEDS: Lidocaine 1% (5 ml sdv) 5 ML Vial (09:30)
--- NOTE | 2025-01-31 09:33 | PCM.POST.ANE ---
Anesthesia: Postop Eval I Current Vital Signs Temperature: 97 F Pulse Rate: 78 Blood Pressure: 120/78 Respiratory Rate: 18 Pulse Ox: 99 Assessment Airway patent: Yes Spontaneous unlabored respirations: Yes nausea: No Vomiting: No Anesthesia Complication: No Fluid Hydration Crystalloid volume administer (ml): 200 Total IV fluid infused: 200 Progress Note Anesthesia document: Postop Eval 1 completed: Yes
--- NOTE | 2025-01-31 10:25 | OP.PCM_ITS ---
Operative Report (Standard) Operative Information Date of Procedure: 01/31/25 Pre-Operative Diagnosis: Lumbosacral radiculopathy, lumbosacral degenerative disc disease, lumbosacral spinal stenosis Post-Operative Diagnosis: Lumbosacral radiculopathy, lumbosacral degenerative disc disease, lumbosacral spinal stenosis Surgery/Procedure Performed: Diagnostic/therapeutic caudal epidural steroid injection under fluoroscopic guidance computer hardware developer: No Type of Anesthesia: Local MAC RN Documented Start/Stop Times: Operation Date: 01/31/25 10:10 Case Time Into Pre-Op 01/31/25 08:36 Anesthesia Start 01/31/25 09:22 Into Room 01/31/25 09:22 Procedure Start 01/31/25 09:28 Procedure End 01/31/25 09:30 Anesthesia End 01/31/25 09:33 Out of Room 01/31/25 09:33 Into Recovery 01/31/25 09:36 Into Phase II Recovery 01/31/25 09:47 Out of Recovery 01/31/25 09:47 Out of Phase II 01/31/25 09:57 Procedure Start Time: 10:26 Procedure Stop Time: 10:26 Select all DRAINS/GRAFTS/IMPLANTS that apply: None Estimated Blood Loss: 1 Specimen collected: No Description of surgery: ANESTHESIA: MAC. BLOOD LOSS: Minimal. COMPLICATIONS: None. DESCRIPTION OF PROCEDURE: History and physical of today was reviewed. Risks and benefits of the procedure were explained. The patient understood and agreed to proceed. Informed consent was obtained. IV inserted per routine protocol. The patient was taken to the operating room and placed in the prone position with a pillow positioned underneath the abdomen. The lower back and tailbone area was prepped and draped in a sterile fashion using iodine x3. Under fluoroscopy guidance on a lateral view, the caudal space was identified. The skin and subcutaneous tissue was anesthetized with approximately 3 mL of 1% lidocaine using a 25-gauge regular needle. Under direct visualization with fluoroscopy, using a 22-gauge 3-1/2-inch spinal needle, the needle was advanced via the skin through the sacral hiatus. The tip of the needle was passed through the sacrococcygeal ligament and advanced to approximately S4 area. After negative aspiration of blood or CSF, a total of 3 mL of contrast was injected to confirm correct placement of the needle as well as cephalad spread. The spread was followed to approximately L5 area. After confirmation on AP as well as lateral view and repeated negative aspiration, a total of 15 mL of preservative-free 0.125% Marcaine with 80 mg of Depo-Medrol was injected easily. The needle was then removed intact. The patient experienced no sign or symptoms of intrathecal or intravascular injection. The patient experienced no paresthesia. The procedure was completed without any apparent difficulty or any complications. The patient appeared to tolerate it well. ASSESSMENT AND PLAN: This is a 64-year-old female with lumbosacral radiculopathy, lumbosacral degenerative disc disease, lumbosacral spinal stenosis, status post diagnostic/therapeutic caudal epidural steroid injection under fluoroscopic guidance, patient will continue her current medications, patient will follow-up in approximately 2 weeks for reevaluation. Surgical Findings: 0 Complications Complications: No Admit VTE Documentation VTE Present on Admission: No VTE Mechan Device Prophylaxis: None VTE Pharm Prophylaxis ordered?: No
--- NOTE | 2025-01-31 12:58 | POSTOPAN2_ITS ---
Anesthesia Postop Eval I Sum Postop Eval Completion status Anesthesia document: Postop Eval 1 completed: Yes Anesthesia Postop Eval I Summary Anesthesia Postop Eval I Summary: Anesthesia Postop Eval I: Assessment Summary Airway patent Yes 01/31/25 09:34 RN [email or web address] Spontaneous unlabored Yes 01/31/25 09:34 RN [email or web address] respirations Mental status nausea No 01/31/25 09:34 RN NEW [email or web address] Vomiting No 01/31/25 09:34 RN [email or web address] Anesthesia Postop Eval I: Fluid Summary Crystalloid volume administer 200 01/31/25 09:34 RN [email or web address] (ml) Colloids volume administered ( ml) Blood Product volume administered (ml) Total IV fluid infused 200 01/31/25 09:34 RN [email or web address] Anesthesia Postop Eval I: Summary Notes Anesthesia Complication No 01/31/25 09:34 RN NEW [email or web address] Anesthesia Complication Comment: Post-operative progress note Anesthesia: Postop Eval II Evaluation Mental status: Awake Pain Level: 0 nausea: No Vomiting: No
--- NOTE | 2025-01-31 12:58 | PCM.POSTANE2 ---
Anesthesia Postop Eval I Sum Postop Eval Completion status Anesthesia document: Postop Eval 1 completed: Yes Anesthesia Postop Eval I Summary Anesthesia Postop Eval I Summary: Anesthesia Postop Eval I: Assessment Summary Airway patent Yes 01/31/25 09:34 [email or web address] Spontaneous unlabored Yes 01/31/25 09:34 [email or web address] respirations Mental status nausea No 01/31/25 09:34 [email or web address] Vomiting No 01/31/25 09:34 [email or web address] Anesthesia Postop Eval I: Fluid Summary Crystalloid volume administer 200 01/31/25 09:34 [email or web address] (ml) Colloids volume administered ( ml) Blood Product volume administered (ml) Total IV fluid infused 200 01/31/25 09:34 [email or web address] Anesthesia Postop Eval I: Summary Notes Anesthesia Complication No 01/31/25 09:34 [email or web address] Anesthesia Complication Comment: Post-operative progress note Anesthesia: Postop Eval II Evaluation Mental status: Awake Pain Level: 0 nausea: No Vomiting: No
== END 2025-01-31 09:58 | disposition home or self-care (01) ==
LOC: SDC 08:10 → AC 08:27
PROVIDERS: PCP Registered Nurse; Referring Provider Anesthesiology Pain Medicine; Visit Provider Anesthesiology Pain Medicine
PROC: 3E0S3BZ Introduction of Anesthetic Agent into Epidural Space, Percutaneous Approach (ICD-10-PCS; CPT 62282; principal; 2025-01-31 10:05)
DX: M51.17 Intervertebral disc disorders with radiculopathy, lumbosacral region (principal); M48.07 Spinal stenosis, lumbosacral region; I10 Essential (primary) hypertension; K21.9 Gastro-esophageal reflux disease without esophagitis; F41.9 Anxiety disorder, unspecified; F32.A Depression, unspecified; E03.9 Hypothyroidism, unspecified; G25.81 Restless legs syndrome; J45.909 Unspecified asthma, uncomplicated; Z79.51 Long term (current) use of inhaled steroids; Z79.899 Other long term (current) drug therapy; Z79.890 Hormone replacement therapy; Z87.891 Personal history of nicotine dependence
CPT/HCPCS: 62323; 01992; 64483; 77003; J2405

== ENCOUNTER 2025-02-11 07:55 | Outpatient (RCR) | payer MEDICARE, MEDICAID, SELFPAY ==
--- NOTE | 2025-02-11 10:24 | HP.PTEVAL_ITS ---
Patient's Visit Information Visit Information Visit Information: SANTY RAZA is a 64 year old F referred to Physical Therapy by ALEXI Freedman with a diagnosis of Impaired gait and mobility. Date of Evaluation: 02/11/25 Physical Therapist: Ethan Wolfe, PT, ATC Visit Plan Frequency: 1x/Week Duration: 1 Week Plan: Pt was assessed for the need of a wheelchair this date. I would recommend an electric wheelchair secondary to LBP, intolerance for ambulation, and B shoulder pain and limited ROM Subjective Subjective: Pt is here today with the chief complaint of impaired gait and mobility. Pt reports this has been a gradual progression for many years. Pt notes she sleeps upstairs and has to negotiate stairs daily which is becoming more and more difficult. pt reports she is on 2 LO2 while at rest, but will increase to 3 LO2 when she is walking. Pt notes she is very limited with community mobility at this time secondary to her SOB and LBP. Pt reports she can only go shopping now if she uses an electric cart. Pt reports she is very limited with many in home activities at this time secondary to her intolerance for standing. Pt notes she has to use a stool to sit on while cooking. Pt also notes she is very limited with house chores such as cleaning secondary to LBP and intolerance for activity. Pt notes she has very limited feeling in her LE's as they are almost numb secondary to peripheral neuropathy. No altered sensation in UE's. Pt notes a Hx of falls secondary to instability. Pt reports no pain with sitting. Pt notes her LBP was 7/10 while ambulating here today. Pt notes she has pain throughout her body in other areas such as shoulders. Pt notes she has significant difficulty with getting dressed in the morning secondary to her LBP and fatigue. No Hx of pressure wounds. Pain LBP: Pain Intensity (Out of 10): 7 Pain Intensity Range: 10 Objective Objective: Neuro: B LE L4-5 dermatomes are hyposensitive to light touch. All other B UE/LE sensation is WNL to light touch. Gait: Pt is not a functional ambulator at this time secondary to SOB and LBP ROM: B UE shoulder ROM is limited to below 90 degrees of elevation. AROM increases pain sig in all ranges. B LE ROM is WFL when compared bilaterally. MMT: B shoulders are grossly rated at 2+/5 throughout and are painful with all testing. B elbow flex and ext are 5/5. B Hips are rated at 5/5 throughout when compared bilaterally. B knee flexion and extension are rated at 4-/5. Trunk stability: Pt is able to sit in a chair without difficulty. Pt does hold on to her rollator of UE support. Pt sits with posterior pelvic tilt and a kyphotic thoracic spine posture. Sit to stands: 6 reps in 30 seconds PAIZ: Unable to perform secondary to reliance with rollator for stability. Goals Goal 1:: NA Rehabilitation Potential Physical Therapy Diagnosis: Pt has impaired gait and mobility secondary to LBP and shortness of breath. Rehabilitation Potential: Good Anticipated Interventions Patient/Client Instruction: Educate patient on: Condition and Plan of Care For the Purpose of:: To improve self management Text: Thank you for the opportunity to evaluate your patient. For Medicare and Medicare HMO plans, please review the plan of care and approve it. It will need to be FAXED BACK to us at [phone] for Medicare purposes. For Medicare only, by signing this I certify the plan of care. Please let me know if there are questions or concerns regarding this plan of care. Physician Signature: ____Date:
--- NOTE | 2025-02-11 10:28 | HP.PT.NRP ---
Patient Information Patient Information: SANTY RAZA was seen in my office for initial evaluation on 02/11/25. The following Plan of Care was established for this patient: POC Established Initial Frequency: 1x/Week Initial Duration: 1 Week Anticipated Interventions Patient/Client Instruction: Educate patient on: Condition and Plan of Care For the Purpose of:: To improve self management Last Seen Last Seen: This patient was last seen in our office . Pertinent comments regarding their Physical therapy will appear below: Discharge At this point I will be discontinuing this patient from physical therapy. I would be happy to see this patient again in the future if found appropriate by the physician. Thank you! Ethan Wolfe, PT, ATC
== END 2025-02-11 14:43 | disposition home or self-care (01) ==
LOC: PT 07:55
PROVIDERS: PCP Registered Nurse; Referring Provider Registered Nurse; Visit Provider Registered Nurse
DX: R26.89 Other abnormalities of gait and mobility (principal)
CPT/HCPCS: 97161

== ENCOUNTER 2025-05-30 05:47 | Day surgery (SDC) | payer MEDICARE, MEDICAID, SELFPAY ==
[2025-05-30] VITALS (8 sets, daily range): BP systolic 112–134; BP diastolic 63–114; PULSE 69–82; RESP 16; TEMP 36.2–36.5; O2SAT 96–98; BMI 53.1
--- OUTSIDE RECORDS SUMMARY | 2025-05-30 05:52 | XMS RPT_ITS | CCD ---
Author Organization [facility] Care Team Providers Care Financial Planning Assistant Name Role Phone Haagen GLASS MECHANIC.CONTENT MANAGEMENT CONSULTANT, [facility] Primary Care Provider Una GAVIN MD, Frank A Primary Care Provider Lexi vailable Haagen GLASS MECHANIC.CONTENT MANAGEMENT CONSULTANT, [facility] Primary Care Provider Haagen GLASS MECHANIC.CONTENT MANAGEMENT CONSULTANT, [facility] Primary Care Provider Haagen GLASS MECHANIC.CONTENT MANAGEMENT CONSULTANT, [facility] Primary Care Provider UNA WEIR, TIMOTHY Parry III [facility] Referring Unavailable [facility] Primary Care Unavailable [facility], [facility] Primary Care Unavailable PROVIDER, UNKNOWN Attending Unavailable PROVIDER, UNKNOWN Admitting Unavailable [facility] GLASS MECHANIC-CONTENT MANAGEMENT CONSULTANT, [facility] Primary Care Physician Bud Schultz MD Unavailable MD MARCUS FELIPE Attending Unavailable HAAGEN GLASS MECHANIC-CONTENT MANAGEMENT CONSULTANT, [facility] Primary Care Unavail able HAAGEN GLASS MECHANIC-CONTENT MANAGEMENT CONSULTANT, [facility] Primary Care Unavail able JETHRO LYONS Admitting Unavailable DR MARIAA CALZADA DO Attending Unavailable ALBARO WEIR, DR GASTON Attending Michael FANAGEN GLASS MECHANIC-CONTENT MANAGEMENT CONSULTANT, [facility] Primary Care Unavail able ALBARO WEIR, DR GASTON Admitting Michael SANCHEZ MD, EDINSON Admitting Unavailable EDINSON SANCHEZ MD Attending Unavailable HAAGEN GLASS MECHANIC-CONTENT MANAGEMENT CONSULTANT, [facility] Primary Care Unavail able ANDREY WEIR, SARAH Consulting Unavailable ARINA JOHNSON MD Consulting Unavailable CURTIS DASH MD Attending Unavailable HAAGEN GLASS MECHANIC-CONTENT MANAGEMENT CONSULTANT, [facility] Primary Care Unavail able ANGEL LUIS WEIR, DR KATIANA Jose Attending Unavailabl e HAAGEN GLASS MECHANIC-CONTENT MANAGEMENT CONSULTANT, [facility] Primary Care Unavail able MALATHI SINGER MD Attending Unavailable HAAGEN GLASS MECHANIC-CONTENT MANAGEMENT CONSULTANT, [facility] Primary Care Unavail able Haagen GLASS MECHANIC.CONTENT MANAGEMENT CONSULTANT, [facility] Primary Care Provider HAAGEN GLASS MECHANIC-CONTENT MANAGEMENT CONSULTANT, [facility] Primary Care Unavail able MARTYTerranceVICKEY JESUS MENDEZ Attending Unavailable Haagen GLASS MECHANIC.CONTENT MANAGEMENT CONSULTANT, [facility] Primary Care Provider Suppan GLASS MECHANIC.CONTENT MANAGEMENT CONSULTANT, Kathy A Unavailable Curtis Ryan MD Unavailable Suppan GLASS MECHANIC.CONTENT MANAGEMENT CONSULTANT, Kathy A Unavailable Suppan GLASS MECHANIC.CONTENT MANAGEMENT CONSULTANT, Kathy A Unavailable Curtis Ryan MD Unavailable Haagen YOUTH CORRECTIONS OFFICER-C, [facility] Care Provider Matteo WEIR, Dr. Francis Attending Provider Matteo WEIR, Dr. Francis Referring Provider Haagen YOUTH CORRECTIONS OFFICER-C, [facility] Referring Provider Thierry WEIR, Dr. Murray Parry Attending Provider Thierry WEIR, Dr. Murray Parry Referring Provider Toyin WEIR, Dr. Tejada Attending Provider Thierry WEIR, Dr. Murray Parry Other Provider Haagen YOUTH CORRECTIONS OFFICER-C, [facility] Primary Care Provider Thierry WEIR, Dr. Murray Parry Attending Provider Thierry WEIR, Dr. Murray Parry Referring Provider Haagen YOUTH CORRECTIONS OFFICER-C, [facility] Referring Provider Matteo WEIR, Dr. Francis Attending Provider [phone] Matteo WEIR, Dr. Francis Referring Provider [phone] Haagen YOUTH CORRECTIONS OFFICER-C, [facility] Primary Care Provider [phone] Thierry WEIR, Dr. Murray Parry Attending Provider Haagen YOUTH CORRECTIONS OFFICER-C, [place] Attending Provider Tito Felipe Attending Unavailable Haagen, Deloris Primary Care Unavailable Tito Felipe Referring Unavailable Haagen, Deloris Primary Care Unavailable Haagen, Deloris Referring Unavailable Haagen, Deloris Attending Unavailable Haagen, Deloris Primary Care Unavailable Tito Felipe Attending Unavailable Tito Felipe Referring Unavailable WanekMurray Attending Unavailable Wanek, Murray A Referring Unavailable Haagen, Deloris Primary Care Unavailable Wanek, Murray A Referring Unavailable Terrell Deal Attending Unavailable Haagen, Deloris Primary Care Unavailable Haagen, Deloris Referring Unavailable Nurse, Surgery Attending Unavailable Haagen, Deloris Primary Care Unavailable Wanek, Murray A Attending Unavailable Wanek, Murray A Consulting Unavailable Wanek, Murray A Referring Unavailable Haagen, Deloris Primary Care Unavailable Haagen, Deloris Primary Care Unavailable Haagen, Deloris Referring Unavailable Wanek, Murray A Attending Unavailable Haagen, Deloris Referring Unavailable Wanek, Murray A Attending Unavailable Haagen, Deloris Primary Care Unavailable Haagen, Deloris Referring Unavailable Wanek, Murray A Attending Unavailable Haagen, Deloris Primary Care Unavailable Haagen, Deloris Primary Care Unavailable Tito Felipe Referring Unavailable Tito Felipe Attending Unavailable Tiot Felipe Attending Unavailable Haagen, Deloris Primary Care Unavailable Tito Felipe Referring Unavailable Wanek, Murray A Referring Unavailable Wanek, Murray A Attending Unavailable Haagen, Deloris Primary Care Unavailable Haagen, Deloris Primary Care Unavailable Tito Felipe Attending Unavailable HAAGEN, DELORIS Attending Unavailable HAAGEN, DELORIS Primary Care Unavailable HAAGEN, DELORIS Referring Unavailable HAAGEN, DELORIS Primary Care Unavailable HAAGEN, DELORIS Attending Unavailable HAAGEN, DELORIS Primary Care Unavailable SELF Referring Unavailable HAAGEN, DELORIS Primary Care Unavailable BUD SCHULTZ Referring Unavailable HAAGEN, DELORIS Primary Care Unavailable HAAGEN, DELORIS Attending Unavailable HAAGEN, DELORIS Referring Unavailable HAAGEN, DELORIS Primary Care Unavailable HAAGEN, DELORIS Primary Care Unavailable HARPSTER, GARETH Referring Unavailable HARPSTERMARÍAGARETH Attending Unavailable HAAGEN, DELORIS Primary Care Unavailable HARPSTER, GARETH Referring Unavailable HAAGEN, DELORIS Primary Care Unavailable SLABAUGH, DONY L Referring Unavailable HAAGEN, DELORIS Primary Care Unavailable HAAGEN, DELORIS Attending Unavailable HAAGEN, DELORIS Primary Care Unavailable HAAGEN, DELORIS Primary Care Unavailable HAAGEN, DELORIS Referring Unavailable HAAGEN, DELORIS Primary Care Unavailable HAAGEN, DELORIS Attending Unavailable HAAGEN, DELORIS Primary Care Unavailable KATHY BUSTAMANTE Attending Unavailable HAAGEN, DELORIS Primary Care Unavailable HAAGEN, DELORIS Primary Care Unavailable HAAGEN, DELORIS Referring Unavailable HAAGEN, DELORIS Referring Unavailable HAAGEN, DELORIS Primary Care Unavailable HAAGEN, DELORIS Referring Unavailable HAAGEN, DELORIS Primary Care Unavailable HAAGEN, DELORIS Primary Care Unavailable HAAGEN, DELORIS Referring Unavailable HAAGEN, DELORIS Primary Care Unavailable HAAGEN, DELORIS Referring Unavailable HAAGEN, DELORIS Primary Care Unavailable HAAGEN, DELORIS Referring Unavailable HAAGEN, DELORIS Referring Unavailable HAAGEN, DELORIS Primary Care Unavailable BUD SCHULTZ Attending Unavailable HAAGEN, DELORIS Primary Care Unavailable HAAGEN, DELORIS Attending Unavailable HAAGEN, DELORIS Primary Care Unavailable TITO ANN Attending Unavailable Allergies Allergy Classification Reported Allergen(s) Allergy Type Date of Onset Reaction(s) Facility aMILoride / hydroCHLOROthiazide (4 sources) aMILoride / hydroCHLOROthiazide Drug Allergy [address] [facility] Doxycycline (4 sources) Doxycycline Drug Allergy Vomiting [facility] NSAIDs (4 sources) meloxicam Drug Allergy Itching, Rash, Swelling [facility] Peanuts and Peanut Containing Products (4 sources) peanut Food Allergy Itching [facility] Quinolones (antibiotic) (4 sources) levoFLOXacin Drug Allergy Other: See Comments [facility] (20 sources) Doxycycline; Translations: [DOXYCYCLINE MONOHYDRATE] Drug Allergy [address] [facility] (20 sources) levoFLOXacin; Translations: [levofloxacin] Drug Allergy Other: See Comments [facility] (20 sources) meloxicam; Translations: [MELOXICAM] Drug Allergy Itching, Rash, Swelling [facility] (20 sources) peanut; Translations: [PEANUTS] Food Allergy Itching [facility] (20 sources) CODFISH [Other] Propensity to adverse reactions Itching [facility] (20 sources) HCTZ [Other] Propensity to adverse reactions Itching [facility] (6 sources) peanut allergenic extract Drug Allergy Itching [facility] (6 sources) Fish Containing Products Allergy to substance Itching [facility] Comment on above: COD FISH (20 sources) aMILoride / hydroCHLOROthiazide; Translations: [AMILORIDE-HYDROCHLOR OTHIAZIDE] Drug Allergy [address] [facility] (11 sources) Doxycycline; Translations: [doxycycline] Drug Allergy Other [facility] (4 sources) amLODIPine Drug Allergy Other [facility] (1 source) amLODIPine Drug Allergy [facility] (1 source) Doxycycline Drug Allergy [facility] (1 source) levoFLOXacin Drug Allergy [facility] (1 source) meloxicam Drug Allergy [facility] (1 source) peanut allergenic extract Drug Allergy [facility] (1 source) Fish Containing Products Drug allergy (disorder) [facility] Medications Current Medications Medication Drug Class(es) Dates Sig (Normalized) Sig (Original) acetaminophen 325 mg / HYDROcodone bitartrate 5 mg oral tablet (20 sources) Opioid Agonist Start: 03-16-2024 take 1 tablet by mouth every eight hours as needed HYDROcodone-acetam inophen (NORCO) 5-325 mg per tablet Take 1 tablet by mouth every 8 hours as needed for pain. From pain management. Aware to not use with xanax. 03/16/2024 Active albuterol 0.83 mg/ml inhalation solution (20 sources) beta2-Adrenergic Agonist Start: 10-27-2023 take 2.5 mg by inhalation every six hours as needed for wheezing Albuterol Sulfate 2.5 mg /3 mL (0.083 %) solution for nebulization Active 2.5 mg INHALATION EVERY 6 HOURS as needed for shortness of breath or wheezing October 27, 2023 12:00am Start: 02-27-2023 take 1 dose by inhal ation every six hours as needed albuterol 2.5 mg/3 mL (0.083%) inhalation solution Dose : 2.5 mg = 3 mL, Inhalation, q6h, PRN for wheezing, # 60 EA, 0 Refill(s) Start Date: 02/27/23 Status: Ordered Start: 07-22-2022 End: 10-29-2024 take 2.5 mg by inhalation every six hours as needed for wheezing and dyspnea and wheezing and dyspnea albuterol (PROVENTIL) 2.5 mg /3 mL (0.083 %) nebulizer solution Indications: Wheezing , SOB (shortness of breath) Use 3 mL via nebulizer every 6 hours as needed for wheezing/shortness of breath. 300 mL 1 10/29/2024 Active Start: 10-19-2021 End: 07-20-2022 take 2.5 mg by inhalation every six hours as needed for wheezing and wheezing albuterol (PROVENTIL) 2.5 mg /3 mL (0.083 %) nebulizer solution Indications: Wheezing Use 3 mL via nebulizer every 6 hours as needed for wheezing/shortness of breath. 6 Vial 5 10/19/2021 07/20/2022 Discontinued Start: 07-09-2021 End: 10-17-2021 take 2.5 mg by inhalation every six hours as needed for wheezing and wheezing albuterol (PROVENTIL) 2.5 mg /3 mL (0.083 %) nebulizer solution Indications: Wheezing Use 3 mL via nebulizer every 6 hours as needed for wheezing/shortness of breath. 6 Vial 5 07/09/2021 10/17/2021 Discontinued Start: 07-26-2020 End: 07-06-2021 albuterol (PROVENTIL) 2.5 mg /3 mL (0.083 %) nebulizer solution Indications: Wheezing inhale contents of 1 vial ( 3 milliliters ) in nebulizer by mouth and INTO THE LUNGS every 4 hours if needed for wheezing or shortness of breath 6 Vial 5 07/26/2020 07/06/2021 Discontinued Start: 12-05-2019 Albuterol Sulf ate 1 PUFF inhaler Active 1 - 2 NMA INHALATION EVERY 4 HOURS NEEDED as needed for Sob &/Or Wheezing December 05, 2019 12:00am Start: 12-05-2019 take 1 puff(s) by in halation every four hours as needed Albuterol Sulfate Active 1 - 2 PUFF INHALATION EVERY 4 HOURS NEEDED December 04, 2019 11:00pm Start: 06-04-2017 End: 08-06-2021 take 2 puff(s) by inhalation every four hours as needed for wheezing albuterol HFA (VENTOLIN HFA) 90 mcg/actuation inhaler Inhale 2 Puffs as instructed every 4 hours as needed for Wheezing/Shortness of Breath. 3 Inhaler 1 06/04/2017 08/06/2021 Discontinued Comment on above: Use 3 mL via nebuliz er every 6 hours as needed for wheezing/shortness of breath. Inhale 2 Puffs as in structed every 4 hours as needed for Wheezing/Shortness of Breath. inhale contents of 1 vial ( 3 milliliters ) in nebulizer by mouth and INTO THE LUNGS every 4 hours if needed for wheezing or shortness of breath ALPRAZolam 1 mg oral tablet (20 sources) Benzodiazepine Start: 11-30-19 End: 12-30-19 take 1 tablet by mouth every twelve hours as needed for anxiety and anxiety ALPRAZolam (XANAX) 1 mg tablet Indications: Anxiety Take 1 tablet by mouth two times a day as needed for up to 30 days. 60 tablet 11/29/2024 12/29/2024 Active Start: 08-16-2024 End: 09-15-2024 take 1 tablet by mouth every twelve hours as needed for anxiety and anxiety ALPRAZolam (XANAX) 1 mg tablet Indications: Anxiety Take 1 tablet by mouth two times a day as needed for up to 30 days. 60 tablet 08/16/2024 09/15/2024 Active Start: 06-11-2024 End: 07-11-2024 take 1 tablet by mouth every twelve hours as needed for anxiety and anxiety ALPRAZolam (XANAX) 1 mg tablet Indications: Anxiety Take 1 tablet by mouth two times a day as needed for up to 30 days. 60 tablet 06/11/2024 07/11/2024 Active Start: 03-12-2024 End: 04-11-2024 take 1 tablet by mouth every twelve hours as needed for anxiety and anxiety ALPRAZolam (XANAX) 1 mg tablet Indications: Anxiety Take 1 tablet by mouth two times a day as needed for up to 30 days. 60 tablet 03/12/2024 04/11/2024 Active Start: 02-02-2024 End: 03-03-2024 take 1 tablet by mouth every twelve hours as needed for anxiety and anxiety ALPRAZolam (XANAX) 1 mg tablet Indications: Anxiety Take 1 tablet by mouth two times a day as needed for up to 30 days. 60 tablet 02/02/2024 03/03/2024 Active Start: 12-08-2023 End: 01-07-2024 take 1 tablet by mouth every twelve hours as needed for anxiety and anxiety ALPRAZolam (XANAX) 1 mg tablet Indications: Anxiety Take 1 tablet by mouth two times a day as needed for up to 30 days. 60 tablet 0 12/08/2023 01/07/2024 Active Start: 10-22-2023 End: 11-21-2023 take 1 tablet by mouth once daily as needed for anxiety ALPRAZolam (XANAX) 1 mg tablet Indications: Generalized anxiety disorder with panic attacks Take 1 tablet by mouth once daily as needed for anxiety for up to 30 days. 30 tablet 0 10/22/2023 11/21/2023 Active Start: 08-16-2023 End: 10-16-2023 take 1 tablet by mouth once daily as needed for anxiety ALPRAZolam (XANAX) 1 mg tablet Indications: Generalized anxiety disorder with panic attacks Take 1 tablet by mouth once daily as needed for anxiety for up to 30 days. 30 tablet 0 09/16/2023 10/16/2023 Active Start: 02-03-2023 End: 05-23-2023 take 1 tablet by mouth once daily as needed for anxiety ALPRAZolam (XANAX) 1 mg tablet Indications: Generalized anxiety disorder with panic attacks Take 1 tablet by mouth once daily as needed for anxiety for up to 30 days. 30 tablet 0 04/23/2023 05/23/2023 Active Start: 12-27-2022 End: 01-26-2023 take 1 tablet by mouth once daily as needed for anxiety ALPRAZolam (XANAX) 1 mg tablet Indications: Generalized anxiety disorder with panic attacks Take 1 tablet by mouth once daily as needed for anxiety for up to 30 days. 30 tablet 0 12/27/2022 01/26/2023 Active Start: 11-12-2022 End: 12-12-2022 take 1 tablet by mouth once daily as needed for anxiety ALPRAZolam (XANAX) 1 mg tablet Indications: Generalized anxiety disorder with panic attacks Take 1 tablet by mouth once daily as needed for anxiety for up to 30 days. 30 tablet 0 11/12/2022 12/12/2022 Active Start: 07-22-2022 End: 11-08-2022 take 1 tablet by mouth once daily as needed for anxiety ALPRAZolam (XANAX) 1 mg tablet Indications: Generalized anxiety disorder with panic attacks Take 1 tablet by mouth once daily as needed for anxiety for up to 30 days. 30 tablet 0 10/02/2022 11/08/2022 Discontinued Start: 06-11-2022 End: 07-20-2022 take 1 tablet by mouth once daily as needed for anxiety ALPRAZolam (XANAX) 1 mg tablet Indications: Generalized anxiety disorder with panic attacks Take 1 tablet by mouth once daily as needed for anxiety for up to 30 days. 30 tablet 06/11/2022 07/20/2022 Discontinued Start: 05-08-2022 End: 06-07-2022 take 1 tablet by mouth once daily as needed for anxiety ALPRAZolam (XANAX) 1 mg tablet Indications: Generalized anxiety disorder with panic attacks Take 1 tablet by mouth once daily as needed for anxiety for up to 30 days. 30 tablet 0 05/08/2022 06/07/2022 Active Start: 12-22-2014 End: 05-04-2022 take 1 tablet by mouth once daily as needed for anxiety ALPRAZolam (XANAX) 1 mg tablet Indications: Generalized anxiety disorder with panic attacks Take 1 tablet by mouth once daily as needed for anxiety for up to 30 days. 30 tablet 0 04/04/2022 05/04/2022 Active Comment on above: Take 1 tablet by jose once daily as needed for anxiety for up to 30 days. amitriptyline hydrochloride 25 mg oral tablet (20 sources) Tricyclic Antidepressant Start: 11-30-19 take 1 tablet by mouth once daily at bedtime amitriptyline (ELAVIL) 25 mg tablet Indications: Anxiety Take 1 tablet by mouth daily at bedtime. 90 tablet 3 11/29/2024 Active Start: 09-01-2017 End: 11-27-2024 take 1 tablet by mouth once daily at bedtime amitriptyline (ELAVIL) 25 mg tablet Indications: Anxiety Take 1 tablet by mouth daily at bedtime. 90 tablet 3 11/29/2024 Active Comment on above: take 1 tablet by jose th at bedtime Take 1 tablet by jose th daily at bedtime. amLODIPine 5 mg oral tablet (20 sources) Dihydropyridine Calcium Channel Stuart Start: End: take 1 tablet by mouth once daily amLODIPine (NORVASC) 5 mg tablet Indications: Essential hypertension, benign Take 1 tablet by mouth once daily. 90 tablet 3 12/15/2024 Active Comment on above: Take 1 tablet by jose th once daily. take 1 tablet by jose th once daily amoxicillin 875 mg / clavulanate 125 mg oral tablet (7 sources) Penicillin-class Antibacterial Start: End: take 1 tablet by mouth twice daily amoxicillin-clavul anate potassium (AUGMENTIN) 875-125 mg per tablet Take 1 tablet by mouth two times a day for 5 days. 10 tablet 08/23/2024 08/28/2024 Active Start: 03-02-2023 End: 03-12-2023 amoxicillin-clavulanate 875 mg-125 mg oral tablet 1 tab(s), Oral, q12h, twice a day, X 10 day(s), # 20 tab(s), 0 Refill(s), 03/12/23 2:42:00 PM EDT, [id number], 165.1, cm, 03/01/23 7:12:00 EDT, Height, 126.5, kg, 03/01/23 7:12:00 EDT, Dosing Weight Start Date: 03/02/23 Stop Date: 03/12/23 Status: Ordered Start: 01-15-2023 End: 01-25-2023 take 1 tablet by mouth twice daily amoxicillin-clavulanic acid (AUGMENTIN) 875-125 mg per tablet Indications: Mucopurulent chronic bronchitis (HCC) Take 1 tablet by mouth twice daily for 10 days. 20 tablet 0 01/15/2023 01/25/2023 Active Comment on above: Take 1 tablet by jose th twice daily for 10 days. atorvastatin 10 mg oral tablet (20 sources) HMG-CoA Reductase Inhibitor Start: take 1 tablet by mouth once daily at bedtime for hyperlipidemia atorvastatin (LIPITOR) 10 mg tablet Indications: Hyperlipidemia LDL goal Take 1 tablet by mouth daily at bedtime. For cholesterol. 90 tablet 3 11/29/2024 Active Start: 01-20-2023 End: 11-27-2024 take 1 tablet by mouth once daily at bedtime for hyperlipidemia atorvastatin (LIPITOR) 10 mg tablet Indications: Hyperlipidemia LDL goal Take 1 tablet by mouth daily at bedtime. For cholesterol. 90 tablet 3 12/08/2023 11/27/2024 Discontinued Comment on above: Take 1 tablet by jose th daily at bedtime. For cholesterol. take 1 tablet by jose th daily at bedtime for cholesterol benzonatate 100 mg oral capsule (20 sources) Non-narcotic Antitussive Start: End: take 1 capsule by mouth twice daily as needed for cough Benzonatate 100 mg capsule Discontinued 100 mg PO TWICE A DAY as needed for cough September 01, 2024 12:00am January 25, 2025 9:29am Start: 06-02-2024 End: 02-07-2025 take 2 capsules by mouth every eight hours as needed benzonatate (TESSALON PERLE) 100 mg capsule Take 2 capsules by mouth three times a day as needed. 30 capsule 06/02/2024 02/07/2025 Discontinued Start: 11-03-2023 End: 10-26-2024 take 1-2 capsules by mouth three times daily as needed for cough benzonatate (TESSALON PERLES) 100 mg capsule Indications: Mucopurulent chronic bronchitis (HCC) Take 1-2 capsules by mouth three times a day as needed for cough. 40 capsule 1 10/26/2024 Active Start: 01-15-2023 End: 11-01-2023 take 1-2 capsules by mouth three times daily as needed for cough benzonatate (TESSALON PERLES) 100 mg capsule Indications: Mucopurulent chronic bronchitis (HCC) Take 1-2 capsules by mouth three times daily as needed for cough. 30 capsule 01/15/2023 04/16/2023 Discontinued Start: 07-22-2022 End: 08-01-2022 take 1 capsule by mouth three times daily as needed for cough benzonatate (TESSALON PERLES) 100 mg capsule Indications: Mucopurulent chronic bronchitis (HCC) Take 1 capsule by mouth three times daily as needed for cough for up to 10 days. 30 capsule 0 07/22/2022 08/01/2022 Active Start: 08-01-2021 End: 07-01-2022 take 2 capsules by mouth every eight hours as needed benzonatate (TESSALON PERLES) 100 mg capsule Take 2 capsules by mouth three times daily as needed. 30 capsule 0 09/25/2021 07/01/2022 Discontinued (Course of therapy completed) Comment on above: Take 2 capsules by m outh three times daily as needed. Take 1 capsule by mo uth three times daily as needed for cough for up to 10 days. Take 1-2 capsules by mouth three times daily as needed for cough. Take 1-2 capsules by mouth three times a day as needed for cough. Budesonide-Formoterol [Budesonide-Formoterol Hfa 160 Mcg-4.5 Mcg/Actuation Aerosol Inhaler] (20 sources) Corticosteroid, beta2-Adrenergic Agonist Start: 01-25-2025 Budesonide-Formoterol [Budesonide-Formoterol Hfa 160 Mcg-4.5 Mcg/Actuation Aerosol Inhaler] (Budesonide-Formoterol Hfa 160 Mcg-4.5 Mcg/Actuation ) 160-4.5 mcg/actuation HFA aerosol inhaler Active 2 NMA INHALATION TWICE A DAY January 25, 2025 12:00am Start: 10-26-2024 take 2 puff(s) by in halation twice daily budesonide-formoterol (SYMBICORT) 160-4.5 mcg/actuation inhaler Indications: SOB (shortness of breath) Inhale 2 puffs as instructed two times a day. 1 each 5 10/26/2024 Active Start: 12-24-2023 End: 10-26-2024 take 2 puff(s) by inhalation twice daily budesonide-formoterol (SYMBICORT) 160-4.5 mcg/actuation inhaler Indications: SOB (shortness of breath) Inhale 2 Puffs as instructed two times a day. 1 Each 5 12/24/2023 10/26/2024 Discontinued Start: 12-24-2023 take 2 puff(s) by in halation twice daily budesonide-formoterol (SYMBICORT) 160-4.5 mcg/actuation inhaler Indications: SOB (shortness of breath) Inhale 2 Puffs as instructed two times a day. 1 Each 5 12/24/2023 Active Start: 07-28-2023 End: 12-24-2023 take 2 puff(s) by inhalation twice daily budesonide-formoterol (SYMBICORT) 160-4.5 mcg/actuation inhaler Indications: SOB (shortness of breath) Inhale 2 Puffs as instructed two times a day. 1 Each 5 07/28/2023 12/24/2023 Discontinued Start: 07-28-2023 take 2 puff(s) by in halation twice daily budesonide-formoterol (SYMBICORT) 160-4.5 mcg/actuation inhaler Indications: SOB (shortness of breath) Inhale 2 Puffs as instructed two times a day. 1 Each 5 07/28/2023 Active Start: 09-02-2022 End: 07-28-2023 take 2 puff(s) by inhalation twice daily budesonide-formoterol (SYMBICORT) 160-4.5 mcg/actuation inhaler Indications: SOB (shortness of breath) Inhale 2 Puffs as instructed twice daily. 1 Each 5 09/02/2022 07/28/2023 Discontinued Start: 09-02-2022 take 2 puff(s) by in halation twice daily budesonide-formoterol (SYMBICORT) 160-4.5 mcg/actuation inhaler Indications: SOB (shortness of breath) Inhale 2 Puffs as instructed twice daily. 1 Each 5 09/02/2022 Active Comment on above: Inhale 2 Puffs as in structed twice daily. Inhale 2 Puffs as in structed two times a day. 24 hr buPROPion hydrochloride 300 mg extended release oral tablet (20 sources) Aminoketone Start: End: take 1 tablet by mouth once daily buPROPion XL (WELLBUTRIN XL) 300 mg 24 hr tablet Indications: Depression, recurrent Take 1 tablet by mouth once daily. 30 tablet 5 12/15/2024 Active Start: 12-08-2023 End: 01-21-2024 take 1 tablet by mouth once daily buPROPion XL (WELLBUTRIN XL) 150 mg 24 hr tablet Indications: Generalized anxiety disorder with panic attacks Take 1 tablet by mouth once daily. 30 tablet 11 12/08/2023 01/21/2024 Discontinued Start: 02-27-2023 take 1 tablet by jose th every hour, then take 1 tablet by mouth every twenty-four hours Wellbutrin XL 150 mg/24 hours oral tablet, extended release Dose : 150 mg = 1 tab(s), Oral, q24h, # 30 tab(s), 0 Refill(s) Start Date: 02/27/23 Status: Ordered Start: 06-26-2021 End: 01-25-2025 take 1 tablet by mouth once daily Bupropion Hcl 150 mg Tablet Sustained-Release 12 Hr Discontinued 150 mg PO DAILY June 26, 2021 1:00am January 25, 2025 9:22am Start: 01-08-2021 End: 12-05-2023 take 1 tablet by mouth once daily buPROPion XL (WELLBUTRIN XL) 150 mg 24 hr tablet Indications: Generalized anxiety disorder with panic attacks Take 1 tablet by mouth once daily. 30 tablet 11 01/08/2021 01/13/2022 Discontinued Start: 01-10-2020 End: 01-05-2021 take 1 tablet by mouth once daily buPROPion XL (WELLBUTRIN XL) 150 mg 24 hr tablet Indications: Generalized anxiety disorder with panic attacks Take 1 tablet by mouth once daily. 30 tablet 11 01/10/2020 01/05/2021 Discontinued Comment on above: Take 1 tablet by jose th once daily. cefdinir 300 mg oral capsule (2 sources) Cephalosporin Antibacterial Start: 3 End: take 1 capsule by mouth twice daily cefdinir (OMNICEF) 300 mg capsule Indications: Sinobronchitis Take 1 capsule by mouth two times a day for 10 days. 20 capsule 0 05/05/2023 05/15/2023 Active Start: 05-14-2022 End: 05-24-2022 take 1 capsule by mouth twice daily cefdinir (OMNICEF) 300 mg capsule Indications: Bronchitis Take 1 capsule by mouth twice daily for 10 days. 20 capsule 0 05/14/2022 05/24/2022 Active Comment on above: Take 1 capsule by [facility] twice daily for 10 days. Take 1 capsule by [facility] two times a day for 10 days. cholecalciferol 0.125 mg oral capsule (20 sources) Vitamin D Start: 02-27-2023 cholecalciferol 125 mcg (5000 intl units) oral capsule Dose : 125 mcg = 1 cap(s), Oral, qDay, 0 Refill(s) Start Date: 02/27/23 Status: Ordered Start: 02-27-2023 cholecalcifero l 125 mcg (5000 intl units) oral capsule Dose : 125 mcg = 1 cap(s), Oral, qDay, 0 Refill(s) Start Date: 02/27/23 Status: Ordered Start: 06-26-2021 take 1 tablet by [facility] once daily Cholecalciferol (Vitamin D3) 125 mcg (5,000 unit) Tablet Active 125 ug PO DAILY June 26, 2021 1:00am Start: 08-05-2020 End: 09-15-2023 take 1 capsule by mouth once daily Cholecalciferol, Vitamin D3, 125 mcg (5,000 unit) cap Indications: Vitamin D deficiency Take 1 capsule by mouth once daily. 30 capsule 11 09/16/2023 Active Comment on above: Take 1 capsule by [facility] once daily. ciprofloxacin 3 mg/ml / dexamethasone 1 mg/ml otic suspension (20 sources) Corticosteroid, Quinolone Antimicrobial Start: 12-24-2023 ciprofloxacin-dexAMETH asone (CIPRODEX) 0.3-0.1 % otic suspension Indications: Acute otitis externa of left ear, unspecified type Use 4 Drops in both ears two times a day. 7.5 mL 0 12/24/2023 Active Start: 04-16-2023 End: 04-16-2023 ciprofloxacin-dexAMETHasone (CIPRODEX) 0.3-0.1 % otic suspension Use 4 Drops in both ears two times a day for 7 days. 7.5 mL 0 04/16/2023 04/16/2023 Discontinued (Course of therapy completed) Start: 02-27-2023 Ciprodex 0.3%- 0.1% otic suspension Dose = 2 drop(s), Ear, both, BID, PRN Control symptoms, 0 Refill(s) Start Date: 02/27/23 Status: Ordered Start: 01-05-2022 End: 04-16-2023 CIPRODEX 0.3-0.1 % otic susp ension Indications: Other acute nonsuppurative otitis media of left ear, recurrence not specified Use 2 Drops in both ears as needed. 2 drops twice daily as needed. 7.5 mL 01/05/2022 04/16/2023 Discontinued (Course of therapy completed) Start: 03-06-2021 End: 01-05-2022 CIPRODEX 0.3-0.1 % otic susp ension Use in both ears as needed. 03/06/2021 01/05/2022 Discontinued Comment on above: Use in both ears as needed. Use 2 Drops in both ears as needed. 2 drops twice daily as needed. Use 4 Drops in both ears two times a day for 7 days. clotrimazole 10 mg oral lozenge (1 source) Azole Antifungal Start: 3 End: 3 take 1 dose by mouth once clotrimazole 10 mg oral lozenge Dose : 10 mg = 1 lozenge(s), Oral, 5x/Day, X 7 day(s), # 35 lozenge(s), 0 Refill(s), 03/11/23 11:19:00 AM EDT Start Date: 03/04/23 Stop Date: 03/11/23 Status: Ordered COMPOUNDED PRESCRIPTION (20 sources) Start: 8 COMPOUNDED PRESCRIPTION Indications: Wheezing , SOB (shortness of breath) , Cough Nebulizer for albuterol every fours as needed ICD: R06.2 1 Device 10/22/2017 Active Start: 10-22-2017 COMPOUNDED PRE SCRIPTION Indications: Wheezing , SOB (shortness of breath) , Cough Nebulizer for albuterol every fours as needed ICD: R06.2 1 Device 0 10/22/2017 Active Comment on above: Nebulizer for albute rol every fours as needed ICD: R06.2 CPAP (20 sources) Start: 02-11-2019 CPAP Indications: TRINI (obstructive sleep apnea) autoCPAP 5-15 cmH2O, mask, tubing, filters, heated humidity, lifetime supplies. Dx: TRINI 1 Device 02/11/2019 Active Start: 02-11-2019 CPAP Indicatio ns: TRINI (obstructive sleep apnea) autoCPAP 5-15 cmH2O, mask, tubing, filters, heated humidity, lifetime supplies. Dx: TRINI 1 Device 0 02/11/2019 Active Comment on above: autoCPAP 5-15 cmH2O, mask, tubing, filters, heated humidity, lifetime supplies. Dx: TRINI docusate sodium 100 mg oral capsule (1 source) Start: 09-01-2017 Colace 100 mg oral capsule Dose : 100 mg = 1 cap(s), Oral, BID, PRN as needed for constipation, # 20 cap(s), 0 Refill(s) Start Date: 09/01/17 Status: Ordered doxycycline hyclate 100 mg oral tablet (7 sources) Tetracycline-class Drug Start: 06-02-2024 End: 06-12-2024 take 1 tablet by mouth twice daily doxycycline (VIBRA-TABS) 100 mg tablet Take 1 tablet by mouth two times a day for 10 days. 20 tablet 06/02/2024 06/12/2024 Active Start: 04-30-2024 End: 05-10-2024 take 1 tablet by mouth twice daily doxycycline (VIBRA-TABS) 100 mg tablet Indications: Cellulitis of skin Take 1 tablet by mouth two times a day for 10 days. 20 tablet 04/30/2024 05/10/2024 Active Start: 05-26-2022 End: 06-02-2022 doxycycline hyclate 100 mg o ral tablet Dose : 100 mg = 1 tab(s), Oral, BID, X 7 day(s), # 14 tab(s), 0 Refill(s), 06/02/22 17:49:00 EST, Pneumonia, 127.3 Start Date: 05/26/22 Stop Date: 06/02/22 Status: Ordered enteric contrast (will be provided with radiology test) (1 source) Start: 07-23-2022 End: 07-24-2022 enteric contrast (will be provided with radiology test) For CT ABD/PEL W IVCON Routine order Administer, As Directed One Time Only, via Oral, Rectal, both Oral and Rectal, Enteric Tube, Stoma or Indwelling Catheter, Enteric Contrast as designated per enteric contrast guidelines 1 Each 0 07/23/2022 07/24/2022 Active Comment on above: For CT ABD/PEL W IVC ON Routine order Administer, As Directed One Time Only, via Oral, Rectal, both Oral and Rectal, Enteric Tube, Stoma or Indwelling Catheter, Enteric Contrast as designated per enteric contrast guidelines FLUoxetine 10 mg oral capsule (8 sources) Serotonin Reuptake Inhibitor Start: 02-07-2025 FLUoxetine (PROZAC) 10 mg capsule Week #1 - take one capsule daily with venlafaxine 75 mg. Week #2 - take two capsule daily with venlafaxine 37.5 mg. 21 capsule 02/07/2025 Active Start: 02-07-2025 take [address] [facility] once daily FLUoxetine (PROZAC) 40 mg capsule Start taking one pill by mouth daily on week #3, as discussed. No venlafaxine. 30 capsule 1 02/07/2025 Active fluticasone propionate 0.05 mg/actuat metered dose nasal spray (20 sources) Corticosteroid Start: 02-27-2023 take 1 dose nasal route twice daily as needed for congestion fluticasone 50 mcg/inh NASAL spray Dose = 1 spray(s), Nostril, each, BID, PRN Nasal congestion, 0 Refill(s) Start Date: 02/27/23 Status: Ordered Start: 01-20-2023 End: 08-19-2024 take 2 spray(s) by mouth once daily fluticasone (FLONASE) 50 mcg/actuation nasal spray Indications: Middle ear effusion, left Use 2 Sprays in each nostril once daily. Rinse mouth after use. 1 Each 01/20/2023 08/19/2024 Discontinued (Other) Start: 02-04-2022 End: 01-18-2023 take 2 spray(s) by mouth once daily fluticasone (FLONASE) 50 mcg/actuation nasal spray Indications: Middle ear effusion, left Use 2 Sprays in each nostril once daily. Rinse mouth after use. 1 Each 02/04/2022 01/18/2023 Discontinued Start: 11-15-2020 End: 08-06-2021 take 1 puff(s) by inhalation twice daily fluticasone (FLOVENT HFA) 110 mcg/actuation inhaler Indications: Mucopurulent chronic bronchitis (HCC) Inhale 1 Puff as instructed twice daily. 12 g 11 11/15/2020 08/06/2021 Discontinued Start: 11-29-2017 End: 08-30-2024 Fluticasone Propionate 1 SPR AY spray,suspension Discontinued 2 NMA INHALATION DAILY November 29, 2017 12:00am August 30, 2024 9:33am Start: 11-29-2017 [facility] Fluticasone Propionate Active 2 SPRAY INHALATION DAILY November 28, 2017 11:00pm Comment on above: Inhale 1 Puff as ins tructed twice daily. Use 2 Sprays in each nostril once daily. Rinse mouth after use. furosemide 20 mg oral tablet (20 sources) Loop Diuretic Start: 11-30-19 End: 06-04-20 24 furosemide (LASIX) 20 mg tablet Indications: Bilateral leg edema Take 1 tablet by mouth once daily. If you have increased swelling, okay to increase to 2 tablets daily for 2-3 days. Do not do more than once weekly. 40 tablet 5 06/04/2024 Active Comment on above: Take 1 tablet by [facility] once daily. gabapentin 100 mg oral capsule (2 sources) Anti-epileptic Agent Start: 01-26-20 25 take 1 capsule by mouth once daily Gabapentin 100 mg capsule Active 100 mg PO DAILY January 25, 2025 12:00am 200 actuat ipratropium bromide 0.017 mg/actuat metered dose inhaler (20 sources) Anticholinergic Start: 02-28-20 take 1 dose by inhalation four times daily Atrovent HFA 17 mcg/inh inhalation aerosol Dose = 2 puff(s), Inhalation, QID, 0 Refill(s) Start Date: 02/27/23 Status: Ordered Start: 10-26-2021 End: 12-24-2023 take 2 puff(s) by inhalation every six hours Ipratropium (ATROVENT HFA) 17 mcg/actuation inhaler Indications: SOB (shortness of breath) Inhale 2 Puffs as instructed every 6 hours. 1 Each 3 12/24/2023 Active Comment on above: Inhale 2 Puffs as in structed every 6 hours. iv contrast (will be provided with radiology test) (1 source) Start: 07-23-19 End: 07-24-19 iv contrast (will be provided with radiology test) CT ABD/PEL -Inject, intravenously, once for 1 dose.No IV access, insert saline lock prior to the beginning of sedation, infusion, injection of imaging exam. Discontinue saline lock post exam. If Pt. has a central line or IVAD, may access for administration according to line specific nursing protocol. Once exam is complete flush line and de-access according to line specific nursing protocol in the CT contrast administration guidelines link. 1 Each 0 07/23/2022 07/24/2022 Active Comment on above: CT ABD/PEL -Inject, intravenously, once for 1 dose.No IV access, insert saline lock prior to the beginning of sedation, infusion, injection of imaging exam. Discontinue saline lock post exam. If Pt. has a central line or IVAD, may access for administration according to line specific nursing protocol. Once exam is complete flush line and de-access according to line specific nursing protocol in the CT contrast administration guidelines link. lansoprazole 15 mg delayed release oral capsule (20 sources) Proton Pump Inhibitor Start: 11-30-19 25 take 1 capsule by mouth once daily lansoprazole (PREVACID) 15 mg capsule Take 1 capsule by mouth once daily. 30 capsule 11/29/2024 Active Start: 11-29-2017 End: 11-27-2024 take 1 capsule by mouth once daily lansoprazole (PREVACID) 15 mg capsule Take 1 capsule by mouth once daily. 30 capsule 11/29/2024 Active Comment on above: Take 1 capsule by [facility] once daily. levothyroxine sodium 0.2 mg oral tablet (20 sources) l-Thyroxine Start: 10-06-19 24 End: 12-14-19 25 take 1 tablet by mouth once daily for thyroid dysfunction levothyroxine (LEVOXYL) 200 mcg tablet Indications: Hypothyroidism, acquired Take 1 tablet by mouth once daily. Take on empty stomach. For thyroid 30 tablet 12/13/2024 Active Start: 02-27-2023 levothyroxine 200 mcg (0.2 mg) oral tablet Dose : 200 mcg = 1 tab(s), Oral, qDay, # 30 tab(s), 0 Refill(s) Start Date: 02/27/23 Status: Ordered Start: 10-23-2021 End: 10-04-2023 take 1 tablet by mouth once daily for thyroid dysfunction levothyroxine (LEVOXYL) 200 mcg tablet Indications: Hypothyroidism, acquired Take 1 tablet by mouth once daily. Take on empty stomach. For thyroid 30 tablet 11 01/21/2022 01/12/2023 Discontinued Start: 09-21-2021 End: 10-23-2021 take 1 tablet by mouth once daily for thyroid dysfunction levothyroxine (LEVOXYL) 175 mcg tablet Indications: Hypothyroidism, unspecified type Take 1 tablet by mouth once daily. Take on empty stomach. For thyroid. 30 tablet 3 09/21/2021 10/23/2021 Discontinued Start: 07-11-2020 End: 09-16-2021 take 1 tablet by mouth once daily for thyroid dysfunction levothyroxine (LEVOXYL) 150 mcg tablet Indications: Hypothyroidism, unspecified type Take 1 tablet by mouth once daily. Take on empty stomach. For Thyroid. 30 tablet 11 07/11/2020 08/14/2021 Discontinued Start: 09-01-2017 levothyroxine 125 mcg (0.125 mg) oral tablet Dose : 125 mcg = 1 tab(s), Oral, qDay, # 30 tab(s), 0 Refill(s) Start Date: 09/01/17 Status: Ordered Start: 05-13-2016 End: 01-25-2025 take 1 tablet by mouth once daily Levothyroxine 100 MC G tablet Discontinued 100 ug PO DAILY May 13, 2016 1:00am January 25, 2025 9:24am Comment on above: Take 1 tablet by jose th once daily. Take on empty stomach. For Thyroid. Take 1 tablet by jose th once daily. Take on empty stomach. For thyroid lidocaine 0.05 mg/mg medicated patch (1 source) Antiarrhythmic, Amide Local Anesthetic Start: 02-23-2024 End: 03-01-2024 lidocaine 5% topical patch Apply 1 patch(es), Topical, qDay, remove patches after 12 hours, X 7 day(s), # 7 patch(es), 0 Refill(s), 136.4 Start Date: 02/23/24 Stop Date: 03/01/24 Status: Ordered lisinopril 40 mg oral tablet (20 sources) Angiotensin Converting Enzyme Inhibitor Start: 12-08-2023 End: 12-15-2024 take 1 tablet by mouth once daily lisinopril (ZESTRIL) 40 mg tablet Indications: Essential hypertension, benign Take 1 tablet by mouth once daily. 90 tablet 3 12/15/2024 Active Start: 08-28-2020 End: 12-05-2023 take 1 tablet by mouth once daily lisinopril (ZESTRIL, PRINIVIL) 40 mg tablet Take 1 tablet by mouth once daily. 90 tablet 3 08/28/2020 08/27/2021 Discontinued Start: 08-30-2015 End: 01-25-2025 take 1 tablet by mouth once daily Lisinopril 10 MG tablet Discontinued 10 mg PO DAILY September 22, 2015 12:00am January 25, 2025 9:23am Comment on above: Take 1 tablet by jose th once daily. loratadine 10 mg oral tablet (20 sources) Start: 03-01-2024 take 1 tablet by mouth once daily loratadine (CLARITIN) 10 mg tablet Take 1 tablet by mouth once daily. 30 tablet 11 03/01/2024 Active Start: 02-27-2023 loratadine 10 mg oral capsule Dose : 10 mg = 1 cap(s), Oral, qDay, # 10 cap(s), 0 Refill(s) Start Date: 02/27/23 Status: Ordered Start: 02-26-2021 End: 02-27-2024 take 1 tablet by mouth once daily loratadine (CLARITIN) 10 mg tablet Take 10 mg by mouth once daily. 02/26/2021 04/05/2022 Discontinued Comment on above: Take 10 mg by mouth once daily. Take 1 tablet by jose th once daily. menthol 0.035 mg/mg topical gel (2 sources) Start : 08-23 End: 08-30 apply 1 dose topically twice daily as needed for pain Biofreeze 3.5% topical gel Dose = 1 johnny, Topical, BID, PRN as needed for pain, X 7 day(s), # 118 mL, 0 Refill(s), [facility]: [id number], 170, cm, 08/24/23 1:29:00 EST, Height, kg, 08/24/23 1:29:00 EST, Dosing Weight Start Date: 08/24/23 Stop Date: 08/31/23 Status: Ordered methylPREDNISolone (4 sources) Corticosteroid Start : 04-30 End: 05-06 methylPREDNISolone (MEDROL, KANIKA,) 4 mg Dose-Pack Indications: Wheezing Follow dosing instructions, take with food. 21 tablet 04/30/2024 05/06/2024 Active Start: 04-12-2022 End: 04-18-2022 methylPREDNISolone (MEDROL, KANIKA,) 4 mg Dose-Pack Follow dosing instructions, take with food. 21 tablet 0 04/12/2022 04/18/2022 Active Start: 01-16-2022 End: 01-22-2022 methylPREDNISolone (MEDROL, KANIKA,) 4 mg Dose-Pack Indications: Rash Follow dosing instructions, take with food. 1 Package 0 01/16/2022 01/22/2022 Active Comment on above: Follow dosing instru ctions, take with food. miconazole nitrate 20 mg/ml vaginal cream (2 sources) Azole Antifungal Start: 05-26-2022 miconazole 2% vaginal cream with johnny 0 Refill(s) Start Date: 05/26/22 Status: Ordered Start: 05-14-2022 End: 05-21-2022 miconazole (MONISTAT 7) 2 % vaginal cream Indications: Candidiasis Use 1 Applicator vaginally daily at bedtime for 7 days. 45 g 1 05/14/2022 05/21/2022 Active Comment on above: Use 1 Applicator vag inally daily at bedtime for 7 days. Misc Medication (7 sources) Start: 02-27-2023 Misc Medication See Instructions, 0 Refill(s), 139.9 Start Date: 02/27/23 Status: Ordered mupirocin 0.02 mg/mg topical ointment (5 sources) RNA Synthetase Inhibitor Antibacterial Start: 04-22-2024 End: 05-02-2024 mupirocin (BACTROBAN) 2 % ointment Indications: Multiple abrasions Apply 1 application to affected area three times a day for 10 days. 30 g 04/22/2024 05/02/2024 Active Start: 04-14-2024 End: 04-21-2024 mupirocin (BACTROBAN) 2 % oi ntment Apply to affected area three times a day for 7 days. 15 g 04/14/2024 04/21/2024 Active Start: 04-12-2022 End: 04-17-2022 mupirocin (BACTROBAN) 2 % oi ntment Apply to affected area three times daily for 5 days. 22 g 0 04/12/2022 04/17/2022 Active Comment on above: Apply to affected ar ea three times daily for 5 days. Nebulizer (20 sources) Start: 06-26-2018 End: 03-08-2021 Nebulizer 1 Device every 4 hours as needed. NEBULIZER FOR HOME USE. DX: chronic bronchitis J41.1 tubing and supplies for nebulizer 1 Device 0 06/26/2018 03/08/2021 Discontinued Start: 06-26-2018 Nebulizer Juanita cations: Mucopurulent chronic bronchitis (HCC) , Wheezing 1 Each as needed. NEBULIZER TUBING AND SUPPLIES. DX: CHRONIC BRONCHITIS J41.1, WHEEZING R06.2. FAX TO [employer] [phone] 1 Each 11 06/26/2018 Active Comment on above: 1 Each as needed. NE BULIZER TUBING AND SUPPLIES. DX: CHRONIC BRONCHITIS J41.1, WHEEZING R06.2. FAX TO [employer] [phone] 1 Device every 4 jessica rs as needed. NEBULIZER FOR HOME USE. DX: chronic bronchitis J41.1 tubing and supplies for nebulizer Nebulizer Accessories misc (20 sources) Start: 01-31-2025 Nebulizer Accessories misc Indications: Mucopurulent chronic bronchitis (HCC) 1 each as directed. Nebulizer tubing and mouth piece. 3 each 11 01/31/2025 Active Start: 02-04-2022 End: 01-31-2025 Nebulizer Accessories misc I ndications: Mucopurulent chronic bronchitis (HCC) 1 Each as directed. Nebulizer tubing and mouth piece. faxed to 3 Each 5 02/04/2022 01/31/2025 Discontinued Start: 02-04-2022 Nebulizer Acce ssories misc Indications: Mucopurulent chronic bronchitis (HCC) 1 Each as directed. Nebulizer tubing and mouth piece. faxed to 3 Each 5 02/04/2022 Active Start: 08-10-2021 Nebulizer Acce ssories misc Indications: Mucopurulent chronic bronchitis (HCC) 1 Each as directed. Nebulizer tubing and mouth piece. faxed to 3 Each 5 08/10/2021 Active Start: 07-09-2021 End: 08-10-2021 Nebulizer Accessories misc I ndications: Mucopurulent chronic bronchitis (HCC) 1 Each as directed. Nebulizer tubing. faxed to 1 Each 5 07/09/2021 08/10/2021 Discontinued Start: 11-15-2020 End: 12-15-2020 Nebulizer Accessories misc I ndications: Mucopurulent chronic bronchitis (HCC) 1 Each once daily. 2 Each 3 11/15/2020 12/15/2020 Discontinued Comment on above: 1 Each as directed. Nebulizer tubing and mouth piece. faxed to 1 Each once daily. nitrofurantoin, macrocrystals 25 mg / nitrofurantoin, monohydrate 75 mg oral capsule (6 sources) Nitrofuran Antibacterial Start: End: take 1 capsule by mouth twice daily at mealtime nitrofurantoin monohydrate and macrocrystal (MACROBID) 100 mg capsule Indications: Acute cystitis without hematuria Take 1 capsule by mouth twice daily with meals for 7 days. 14 capsule 0 05/08/2022 05/15/2022 Active Start: 09-21-2021 End: 09-28-2021 take 1 capsule by mouth twice daily at mealtime nitrofurantoin monohydrate and macrocrystal (MACROBID) 100 mg capsule Indications: Acute cystitis without hematuria Take 1 capsule by mouth twice daily with meals for 7 days. 14 capsule 0 09/21/2021 09/28/2021 Active Comment on above: Take 1 capsule by [facility] twice daily with meals for 7 days. nystatin [id number] unt/ml oral suspension (7 sources) Polyene Antifungal Start: 09-03-2024 End: 09-17-2024 nystatin (MYCOSTATIN) 100,000 unit/mL suspension Indications: Yeast infection, oral Take 5 mL by mouth four times daily for 14 days. 1tsp swish in mouth for several minutes, then swallow (or expectorate) 4 times daily until gone. 200 mL 09/03/2024 09/17/2024 Active Start: 02-25-2024 End: 03-10-2024 nystatin (MYCOSTATIN) 100,00 0 unit/mL suspension Indications: Yeast infection, oral Take 5 mL by mouth four times daily for 14 days. 1tsp swish in mouth for several minutes, then swallow (or expectorate) 4 times daily until gone. 200 mL 02/25/2024 03/10/2024 Active Start: 07-22-2022 End: 08-05-2022 nystatin (MYCOSTATIN) 100,00 0 unit/mL suspension Indications: Yeast infection, oral Take 5 mL by mouth four times daily for 14 days. 1tsp swish in mouth for several minutes, then swallow (or expectorate) 4 times daily until gone. 200 mL 0 07/22/2022 08/05/2022 Active Comment on above: Take 5 mL by mouth f our times daily for 14 days. 1tsp swish in mouth for several minutes, then swallow (or expectorate) 4 times daily until gone. ofloxacin 3 mg/ml otic solution (20 sources) Quinolone Antimicrobial Start: 12-26-2023 End: 02-08-2025 ofloxacin (FLOXIN) 0.3 % otic solution Use 5 drops in both ears once daily. 10 mL 02/08/2025 Active Start: 04-16-2023 End: 04-23-2023 ofloxacin (FLOXIN) 0.3 % rita c solution Use 5 Drops in both ears two times a day for 7 days. 4 mL 0 04/16/2023 04/23/2023 Active Comment on above: Use 5 Drops in both ears two times a day for 7 days. Use 5 Drops in both ears two times a day. ondansetron 4 mg disintegrating oral tablet (20 sources) Serotonin-3 Receptor Antagonist Start: 09-14-19 End: 12-13-19 take 1 tablet by mouth every eight hours as needed for nausea and nausea ondansetron orally disintegrating (ZOFRAN ODT) 4 mg disintegrating tablet Indications: Nausea Take 1 tablet by mouth every 8 hours as needed for nausea/vomiting. 30 tablet 2 09/13/2024 12/12/2024 Active Start: 07-11-2023 End: 10-09-2023 take 1 tablet by mouth every eight hours as needed for nausea and nausea ondansetron orally disintegrating (ZOFRAN ODT) 4 mg disintegrating tablet Indications: Nausea Take 1 tablet by mouth every 8 hours as needed for nausea/vomiting. 30 tablet 2 07/11/2023 10/09/2023 Start: 06-26-2021 take 1 tablet by jose th every six hours as needed for nausea Ondansetron Hcl 4 mg Tablet Active 4 mg PO EVERY 6 HOURS as needed for Nausea June 26, 2021 1:00am Start: 03-24-2020 End: 08-16-2024 take 1 tablet by mouth every eight hours as needed for nausea ondansetron (ZOFRAN) 4 mg tablet Indications: GERD without esophagitis Take 1 tablet by mouth every 8 hours as needed for nausea/vomiting. 30 tablet 3 08/16/2024 Active Comment on above: Take 1 tablet by jose th every 8 hours as needed for nausea/vomiting. oxyCODONE hydrochloride 5 mg oral tablet (2 sources) Opioid Agonist Start: 023 End: take 1 tablet by mouth every six hours as needed for pain oxyCODONE IR (ROXICODONE) 5 mg immediate release tablet Indications: S/P repair of ventral hernia Take 1 tablet by mouth every 6 hours as needed for pain for up to 5 days. 15 tablet 0 09/06/2022 09/11/2022 Active Comment on above: Take 1 tablet by jose th every 6 hours as needed for pain for up to 5 days. Oxygen - Supplemental ([facility] Informational Use Only) gas (2 sources) Start: Oxygen - Supplemental ([facility] Informational Use Only) gas Active 0 .ROUTE January 25, 2025 12:00am As directed oxygen-air delivery systems ([employer] OXYGEN [employer] MISC) (20 sources) oxygen-air deliv abigail systems ([employer] OXYGEN SYSTEM MISC) Active promethazine hydrochloride 25 mg oral tablet (20 sources) Phenothiazine Start: 024 End: take 1 tablet by mouth every six hours as needed for nausea and nausea promethazine (PHENERGAN) 25 mg tablet Indications: Nausea Take 1 tablet by mouth every 6 hours as needed for nausea/vomiting. 30 tablet 2 08/07/2023 02/03/2024 Active Comment on above: Take 1 tablet by jose th every 6 hours as needed for nausea/vomiting. sacrosidase 8500 unt/ml oral solution (20 sources) Sucrose-specific Enzyme Start: 023 Sucraid 8500 intl units/mL oral solution 0 Refill(s) Start Date: 02/27/23 Status: Ordered Start: 10-10-2021 End: 05-05-2023 SUCRAID 8,500 unit/mL soln 0 10/10/2021 05/05/2023 Discontinued simethicone 80 mg chewable tablet (17 sources) Start: 08-28-2021 End: 11-26-2021 take 1 tablet by mouth every six hours as needed simethicone, chewable (MYLICON) 80 mg chewable tablet Take 1 tablet by mouth every 6 hours as needed. 90 tablet 2 08/28/2021 11/26/2021 Active Comment on above: Take 1 tablet by jose th every 6 hours as needed. Symbicort 160 mcg-4.5 mcg/inh Inhaler (7 sources) Start: 02-27-2023 take 1 dose by inhalation twice daily Symbicort 160 mcg-4.5 mcg/inh Inhaler Dose = 2 puff(s), Inhalation, BID, 0 Refill(s) Start Date: 02/27/23 Status: Ordered triamcinolone acetonide 1 mg/ml topical cream (11 sources) Corticosteroid Start: 04-30-2024 End: 07-29-2024 triamcinolone acetonide (KENALOG) 0.1 % cream Indications: Allergic contact dermatitis due to other agents Apply 1 application to affected area two times a day. Apply to affected area. Location: arms 80 g 2 04/30/2024 07/29/2024 Active Start: 07-01-2022 End: 07-15-2022 triamcinolone acetonide (KUMAR ALOG) 0.1 % cream Indications: Rash Apply 1 application to affected area twice daily for 14 days. Apply to affected area. Location: left elbow 30 g 07/01/2022 07/15/2022 Comment on above: Apply 1 application to affected area twice daily for 14 days. Apply to affected area. Location: left elbow 24 hr venlafaxine 37.5 mg extended release oral capsule (20 sources) Serotonin and Norepinephrine Reuptake Inhibitor Start: 02-07-2025 venlafaxine ER (EFFEXOR XR) 37.5 mg 24 hr capsule Week #1 - take two capsules daily with fluoxetine 10 mg; Week #2 - Take one capsule daily with fluoxetine 20 mg. Then stop. 21 capsule 02/07/2025 Active Start: 02-17-2024 End: 02-07-2025 take 1 capsule by mouth once daily venlafaxine ER (EFFEXOR XR) 150 mg 24 hr capsule Indications: Anxiety , Depression, recurrent Take 1 capsule by mouth once daily. Start after taking 75 mg X 1 week. Stop the citalopram when starting this dose. 90 capsule 1 10/11/2024 02/07/2025 Discontinued Start: 02-17-2024 End: 04-19-2024 venlafaxine ER (EFFEXOR XR) 75 mg 24 hr capsule Indications: Anxiety , Depression, recurrent (HCC) Take one capsule daily X 1 week (take with citalopram 20 mg). 7 capsule 02/17/2024 04/19/2024 Discontinued (Other) Vitamin D3 125 mcg (5000 int l units) oral capsule (1 source) Start: 05-26-2022 Vitamin D3 125 mcg (5000 intl units) oral capsule 0 Refill(s) Start Date: 05/26/22 Status: Ordered Completed/Discontinued Medications Medication Drug Class(es) Dates Sig (Normalized) Sig (Original) acetaminophen 325 mg / oxyCODONE hydrochloride 5 mg oral tablet (14 sources) Opioid Agonist Start: 11-05-2022 End: 10-18-2024 Oxycodone-Acetamino phen (Percocet) 5-325 mg tablet Discontinued 1 {tbl} PO Q8H as needed for pain 10 4 0 October 04, 2024 October 18, 2024 9:40am Hernia Unspecified abdominal hernia without obstruction or gangrene Start: 06-26-2021 End: 10-27-2023 Oxycodone-Acetaminophen (Per cocet) 5-325 mg tablet Discontinued 1 {tbl} PO EVERY 6 HOURS as needed for pain 12 3 0 June 26, 2021 October 27, 2023 1:18pm Biliary colic Calculus of bile duct without cholangitis or cholecystitis without obstruction azithromycin 250 mg oral tablet (20 sources) Macrolide Antimicrobial Start: 08-19-2024 End: 02-07-2025 azithromycin (ZITHROMAX) 250 mg tablet Indications: Bronchitis Take 1 tablet by mouth as directed. Take 2 tablets by mouth on Day 1, then 1 tablet by mouth every day thereafter for 4 days 6 tablet 08/19/2024 02/07/2025 Discontinued Start: 07-22-2022 End: 07-27-2022 azithromycin (ZITHROMAX Z-PA K) 250 mg tablet Indications: Mucopurulent chronic bronchitis (HCC) Take 2 tablets day one, then, 1 tablet daily until gone. 6 tablet 0 07/22/2022 07/27/2022 Active Comment on above: Take 2 tablets day o ne, then, 1 tablet daily until gone. baclofen 10 mg oral tablet (20 sources) gamma-Aminobutyric Acid-ergic Agonist Start: End: take 0.5-1 tablets by mouth twice daily as needed for muscle spasms baclofen (LIORESAL) 10 mg tablet TAKE 1/2 TO 1 TABLET BY MOUTH TWICE A DAY NEEDED FOR SPASMS 09/20/2021 02/17/2024 Discontinued (Other) Comment on above: TAKE 1/2 TO 1 TABLET BY MOUTH TWICE A DAY NEEDED FOR SPASMS bifidobacterium infantis 4 mg oral capsule (20 sources) Start: End: take 1 capsule by mouth once daily Bifidobacterium Infantis (ALIGN) 4 mg cap Take 1 capsule by mouth once daily. 30 capsule 2 03/08/2021 07/11/2023 Discontinued Comment on above: Take 1 capsule by [facility] once daily. cephalexin 500 mg oral capsule (8 sources) Cephalosporin Antibacterial Start: End: take 1 capsule by mouth four times daily cephALEXin (KEFLEX) 500 mg capsule Take 1 capsule by mouth four times daily for 5 days. 20 capsule 04/14/2024 04/19/2024 Discontinued (Course of therapy completed) Start: 01-16-2022 End: 01-23-2022 take 1 capsule by mouth twice daily cephALEXin (KEFLEX) 500 mg capsule Indications: Cellulitis of skin Take 1 capsule by mouth twice daily for 7 days. 14 capsule 0 01/16/2022 01/23/2022 Active Start: 10-01-2021 End: 10-08-2021 take 1 capsule by mouth twice daily cephALEXin (KEFLEX) 500 mg capsule Indications: Acute cystitis without hematuria Take 1 capsule by mouth twice daily for 7 days. 14 capsule 0 10/01/2021 10/08/2021 Active Comment on above: Take [address] [facility] twice daily for 7 days. citalopram 40 mg oral tablet (20 sources) Serotonin Reuptake Inhibitor Start: 02-02-2024 End: 04-19-2024 take 1 tablet by mouth once daily citalopram (CELEXA) 40 mg tablet Indications: Generalized anxiety disorder with panic attacks Take 1 tablet by mouth once daily. 30 tablet 5 02/02/2024 04/19/2024 Discontinued Start: 10-06-2023 End: 01-30-2024 take 1 tablet by mouth once daily citalopram (CELEXA) 40 mg tablet Indications: Generalized anxiety disorder with panic attacks Take 1 tablet by mouth once daily. 30 tablet 5 10/06/2023 01/30/2024 Discontinued Start: 09-19-2021 End: 10-04-2023 take 1 tablet by mouth once daily citalopram (CELEXA) 40 mg tablet Take 1 tablet by mouth once daily. 30 tablet 5 03/22/2022 09/29/2022 Discontinued Start: 02-14-2020 End: 09-01-2024 take 1 tablet by mouth once daily Citalopram 20 mg Tablet Discontinued 20 mg PO DAILY June 26, 2021 1:00am September 01, 2024 9:24am Comment on above: Take 1 tablet by [facility] once daily. cyclobenzaprine hydrochloride 10 mg oral tablet (20 sources) Muscle Relaxant Start: 02-25-20 End: 09-15-19 take 1 tablet by mouth three times daily as needed for muscle spasms cyclobenzaprine (FLEXERIL) 10 mg tablet Indications: Neck pain , Acute pain of left shoulder Take 1 tablet by mouth three times a day as needed for muscle spasm. 20 tablet 02/25/2024 09/14/2024 Discontinued Start: 02-23-2024 End: 02-28-2024 cyclobenzaprine 5 mg oral ta blet Dose : 5 mg = 1 tab(s), Oral, TID, X 5 day(s), # 15 tab(s), 0 Refill(s), 02/28/24 11:18:00 AM EDT Start Date: 02/23/24 Stop Date: 02/28/24 Status: Ordered dexamethasone phosphate 1 mg/ml ophthalmic solution (20 sources) Corticosteroid Start: 01-05-2022 End: 04-19-2024 take 1 drop(s) into the eye(s) every twelve hours as needed, then take 2 drop(s) into the eye(s) twice daily as needed dexAMETHasone (DEXASOL) 0.1 % ophthalmic solution Indications: Other acute nonsuppurative otitis media of left ear, recurrence not specified Use 1 Drop in both eyes every 12 hours as needed. Instill 2 drops into affected ear twice daily as needed. 10 mL 01/05/2022 04/19/2024 Discontinued Start: 01-05-2022 take 1 drop(s) into the eye(s) every twelve hours as needed, then take 2 drop(s) into the eye(s) twice daily as needed dexAMETHasone (DEXASOL) 0.1 % ophthalmic solution Indications: Other acute nonsuppurative otitis media of left ear, recurrence not specified Use 1 Drop in both eyes every 12 hours as needed. Instill 2 drops into affected ear twice daily as needed. 10 mL 0 01/05/2022 Active Comment on above: Use 1 Drop in both e yes every 12 hours as needed. Instill 2 drops into affected ear twice daily as needed. Diaper,Brief, Adult,Disposable (DEPEND UNDERWEAR FOR WOMEN XL) (1 source) Start: 06-21-19 End: 03-08-20 Diaper,Brief, Adult,Disposable (DEPEND UNDERWEAR FOR WOMEN XL) 1 Each every 3 hours as needed. 180 Each 11 06/21/2020 03/08/2021 Discontinued Comment on above: 1 Each every 3 hours as needed. dicyclomine hydrochloride 10 mg oral capsule (1 source) Anticholinergic Start: 06-05-20 End: 08-06-19 take 1 capsule by mouth at bedtime dicyclomine (BENTYL) 10 mg capsule Take 1 capsule by mouth before meals and at bedtime. 120 capsule 2 06/05/2021 08/06/2021 Discontinued fexofenadine (13 sources) Histamine-1 Receptor Antagonist End: 09-03-19 fexofenadine HCl (MUCINEX ALLERGY ORAL) Take by mouth. 09/02/2022 Discontinued End: 09-02-2022 fexofenadine HCl (MUCINEX AL LERGY ORAL) Take by mouth. 0 09/02/2022 Discontinued fexofenadine HCl (MUCINEX ALLERGY ORAL) Take by mouth. 0 Active Comment on above: Take by mouth. 12 hr guaiFENesin 600 mg extended release oral tablet (20 sources) Start: 09-26-19 End: 07-01-19 take 2 tablets by mouth twice daily guaiFENesin (MUCINEX) 600 mg 12 hr tablet Take 2 tablets by mouth twice daily. 14 tablet 0 09/25/2021 07/01/2022 Discontinued (Course of therapy completed) Comment on above: Take 2 tablets by mo ut twice daily. hydrOXYzine hydrochloride 25 mg oral tablet (18 sources) Antihistamine Start: 04-30-20 End: 08-25-19 take 1 tablet by mouth every six hours as needed hydrOXYzine HCl (ATARAX) 25 mg tablet Indications: Urticaria Take 1 tablet by mouth every 6 hours as needed for itching/rash. 120 tablet 2 05/26/2024 08/24/2024 norethindrone acetate 5 mg oral tablet (12 sources) Start: 11-16-19 End: 05-09-20 take 0.5 tablet by mouth once daily norethindrone (AYGESTIN) 5 mg tablet Take 0.5 tablets by mouth once daily. 45 tablet 0 11/15/2021 05/09/2022 Discontinued (Other) Comment on above: Take 0.5 tablets by mouth once daily. olopatadine 1 mg/ml ophthalmic solution (1 source) Histamine-1 Receptor Inhibitor Start: 10-13-19 End: 03-08-20 take 1 drop(s) into the eye(s) twice daily olopatadine (PATANOL) 0.1 % ophthalmic solution Indications: Allergic conjunctivitis of both eyes Use 1 Drop in both eyes twice daily. 1 Bottle 1 10/12/2020 03/08/2021 Discontinued Comment on above: Use 1 Drop in both e yes twice daily. pantoprazole 40 mg delayed release oral tablet (1 source) Proton Pump Inhibitor Start: 11-02-19 End: 03-22-20 take 1 tablet by mouth once daily pantoprazole DR (PROTONIX) 40 mg tablet Take 1 tablet by mouth once daily. 30 tablet 3 11/01/2020 03/22/2021 Discontinued Comment on above: Take 1 tablet by jose th once daily. perflutren lipid microspheres 1.3 mL in NaCl (PF) 0.9% 10 mL injection (DEFINITY) (20 sources) Start: 09-20-19 End: 12-20-19 perflutren lipid microspheres 1.3 mL in NaCl (PF) 0.9% 10 mL injection (DEFINITY) predniSONE 20 mg oral tablet (20 sources) Start: 08-20-19 End: 08-25-19 take 1 tablet by mouth twice daily predniSONE (DELTASONE) 20 mg tablet Indications: Bronchitis Take 1 tablet by mouth two times a day for 5 days. 10 tablet 08/19/2024 08/24/2024 Start: 06-02-2024 End: 06-07-2024 take 2 tablets by mouth once daily predniSONE (DELTASONE) 20 mg tablet Take 2 tablets by mouth once daily for 5 days. 10 tablet 06/02/2024 06/07/2024 Active Start: 02-25-2024 End: 03-01-2024 take 2 tablets by mouth once daily predniSONE (DELTASONE) 20 mg tablet Indications: Neck pain , Acute pain of left shoulder Take 2 tablets by mouth once daily for 5 days. 10 tablet 02/25/2024 03/01/2024 Active Start: 05-05-2023 End: 05-17-2023 predniSONE (DELTASONE) 10 mg tablet Indications: Mucopurulent chronic bronchitis (HCC) , Sinobronchitis Take 4 tabs daily x 3 days, then 3 tabs x 3 days, 2 tabs x 3 days, then 1 tab x3 days with food. 30 tablet 0 05/05/2023 05/17/2023 Active Start: 01-15-2023 End: 01-20-2023 take 2 tablets by mouth once daily predniSONE (DELTASONE) 20 mg tablet Indications: Mucopurulent chronic bronchitis (HCC) Take 2 tablets by mouth once daily for 5 days. 10 tablet 0 01/15/2023 01/20/2023 Active Start: 07-22-2022 End: 07-27-2022 take 2 tablets by mouth once daily predniSONE (DELTASONE) 20 mg tablet Indications: Mucopurulent chronic bronchitis (HCC) Take 2 tablets by mouth once daily for 5 days. 10 tablet 0 07/22/2022 07/27/2022 Active Start: 05-26-2022 End: 05-31-2022 predniSONE 20 mg oral tablet Dose : 40 mg = 2 tab(s), Oral, qDay, X 5 day(s), # 10 tab(s), 0 Refill(s), 05/31/22 17:49:00 EST, Pneumonia Start Date: 05/26/22 Stop Date: 05/31/22 Status: Ordered Start: 05-14-2022 take [address] [facility] once daily predniSONE (DELTASONE) 20 mg tablet Indications: Bronchitis Take 2 tablets by mouth once daily. 10 tablet 0 05/14/2022 Active Start: 09-25-2021 End: 09-30-2021 take 2 tablets by mouth once daily predniSONE (DELTASONE) 20 mg tablet Take 2 tablets by mouth once daily for 5 days. 10 tablet 0 09/25/2021 09/30/2021 Active Comment on above: Take 2 tablets by mo uth once daily for 5 days. Take 2 tablets by mo ut once daily. Take 4 tabs daily x 3 days, then 3 tabs x 3 days, 2 tabs x 3 days, then 1 tab x3 days with food. 125 ml sodium chloride 9 mg/ml prefilled syringe (20 sources) Start: End: sodium chloride 0.9 % (flush) 10 mL (BD POSIFLUSH) sucralfate 1000 mg oral tablet (1 source) Aluminum Complex Start: End: sucralfate (CARAFATE) 1 gram tablet Take one tablet before meals and at bedtime as needed 30 tablet 0 11/01/2020 12/10/2020 Discontinued Comment on above: Take one tablet befo re meals and at bedtime as needed tegaserod 6 mg oral tablet (20 sources) Serotonin-4 Receptor Antagonist Start: End: take 1 tablet by mouth twice daily before mealtime tegaserod hydrogen maleate 6 mg tablet (ZELNORM) Indications: Irritable bowel syndrome, unspecified type Take 1 tablet (6 mg) by mouth twice daily before meals. 08/06/2021 05/05/2023 Discontinued Comment on above: Take 1 tablet (6 mg) by mouth twice daily before meals. 10 actuat tiotropium 0.0025 mg/actuat inhalation spray (15 sources) Anticholinergic Start: 021 End: take 2 puff(s) by inhalation once daily, then take 2 puff(s) by inhalation once daily tiotropium bromide (SPIRIVA RESPIMAT) 2.5 mcg/actuation inhaler Indications: Mucopurulent chronic bronchitis (HCC) Inhale 2 Puffs as instructed once daily. Inhale two puffs once daily. 1 Each 03/13/2021 10/26/2021 Discontinued (Cost of medication) Comment on above: Inhale 2 Puffs as in structed once daily. Inhale two puffs once daily. tiZANidine 4 mg oral tablet (6 sources) Central alpha-2 Adrenergic Agonist Start: 018 End: take 1 tablet by mouth at bedtime Tizanidine 4 MG tablet Discontinued 4 mg PO AT BEDTIME November 29, 2017 12:00am January 25, 2025 9:29am 7 actuat umeclidinium 0.0625 mg/actuat dry powder inhaler (1 source) Anticholinergic Start: End: take 1 puff(s) by inhalation once daily, then take 1 puff(s) by inhalation once daily umeclidinium (INCRUSE ELLIPTA) 62.5 mcg/actuation inhaler Indications: Mucopurulent chronic bronchitis (HCC) Inhale 1 Puff as instructed once daily. Inhale one puff once daily. DO NOT CLICK OPEN UNTIL READY FOR DOSE 1 Each 02/14/2020 03/06/2021 Discontinued Comment on above: Inhale 1 Puff as ins tructed once daily. Inhale one puff once daily. DO NOT CLICK OPEN UNTIL READY FOR DOSE urea 400 mg/ml topical cream (20 sources) Start: 022 End: 023 urea (CARMOL) 40 % Indications: Heel callus Apply to affected area as needed. 198 g 11 09/26/2021 09/26/2022 Start: 12-07-2020 End: 08-06-2021 urea (CARMOL) 40 % Apply to affected area once daily. 198 g 11 12/07/2020 08/06/2021 Discontinued Comment on above: Apply to affected ar ea as needed. Problems Active Problems Problem Classification Problem Date Documented Da te Episodic/Chronic Acute and unspecified renal failure (1 source) Acute renal failure syndrome; Translations: [Acute kidney failure, unspecified] Onset: 3 Episodic Acute bronchitis (6 sources) Acute exacerbation of chronic bronchitis; Translations: [Acute bronchitis, unspecified] 12-06-2019 Episodic Adjustment disorders (20 sources) Adjustment disorder with depressed mood; Translations: [Adjustment disorder with depressed mood] Onset: 7 05-29-2020 Chronic Anxiety disorders (20 sources) Generalized anxiety disorder; Translations: [Generalized anxiety disorder] Onset: 9 Resolved: 0 02-04-2019 Chronic Biliary tract disease (6 sources) Biliary colic; Translations: [Calculus of bile duct without cholangitis or cholecystitis without obstruction] 07-04-2021 Episodic Chronic obstructive pulmonary disease and bronchiectasis (20 sources) Mucopurulent chronic bronchitis; Translations: [Mucopurulent chronic bronchitis] Onset: 7 06-04-2017 Chronic Chronic obstructive pulmonary disease and bronchiectasis (1 source) Chronic obstructive pulmonary disease and bronchiectasis; Translations: [Asthma with chronic obstructive pulmonary disease (COPD) (HCC)] Onset: 5 Coagulation and hemorrhagic disorders (20 sources) Thrombocytopenic disorder; Translations: [Thrombocytopenia, unspecified] Onset: 4 Chronic Diseases of white blood cells (5 sources) Leukocytosis; Translations: [Elevated white blood cell count, unspecified] Onset: 5 11-14-2023 Chronic Disorders of lipid metabolism (20 sources) Hyperlipidemia; Translations: [Hyperlipidemia, unspecified] Onset: 6 07-17-2015 Chronic Esophageal disorders (20 sources) Gastroesophageal reflux disease without esophagitis; Translations: [Gastro-esophageal reflux disease without esophagitis] Onset: 7 02-04-2017 Chronic Essential hypertension (20 sources) Benign essential hypertension; Translations: [Essential (primary) hypertension] Onset: 5 05-29-2020 Chronic Genitourinary symptoms and ill-defined conditions (20 sources) Genuine stress incontinence; Translations: [Stress incontinence (female) (male)] Onset: 0 05-29-2020 Chronic Genitourinary symptoms and ill-defined conditions (1 source) Urinary symptoms ; Translations: [Unspecified symptoms and signs involving the genitourinary system] Episodic Immunizations and screening for infectious disease (1 source) Encounter for immunization; Translations: [Encounter for immunization] Onset: 5 Episodic Menopausal disorders (2 sources) Postmenopausal bleeding; Translations: [Postmenopausal bleeding] Chronic Mood disorders (20 sources) Recurrent depression; Translations: [Major depressive disorder, recurrent, unspecified] Onset: 3 11-08-2022 Chronic Nausea and vomiting (1 source) Nausea; Translations: [Nausea] 08-07-2023 Episodic Nonspecific chest pain (2 sources) Chest pain; Translations: [Other chest pain] Onset: 4 Episodic Nutritional deficiencies (20 sources) Vitamin D deficiency; Translations: [Vitamin D deficiency, unspecified] Onset: 0 08-25-2019 Chronic Other bone disease and musculoskeletal deformities (1 source) Tietze's disease; Translations: [Chondrocostal junction syndrome [Tietze]] Onset: 4 Episodic Other circulatory disease (1 source) Respiratory symptom; Translations: [Other specified symptoms and signs involving the circulatory and respiratory systems] Episodic Other circulatory disease (8 sources) Low blood pressure; Translations: [Hypotension, unspecified] Onset: 3 Episodic Other connective tissue disease (2 sources) Bursitis of olecranon of right elbow; Translations: [Olecranon bursitis, right elbow] 08-06-2023 Episodic Other connective tissue disease (1 source) Swelling of lower limb; Translations: [Other specified soft tissue disorders] 12-12-2023 Episodic Other connective tissue disease (1 source) Impingement syndrome of shoulder region; Translations: [Impingement syndrome of unspecified shoulder] Onset: 4 Episodic Other connective tissue disease (1 source) Pain in left arm; Translations: [Pain in left arm] Onset: 4 Episodic Other diseases of veins and lymphatics (5 sources) Lymphedema of left lower limb; Translations: [Lymphedema, not elsewhere classified] 12-20-2023 Chronic Other ear and sense organ disorders (1 source) Otorrhea of bilateral ears; Translations: [Otorrhea, bilateral] 04-16-2023 Episodic Other ear and sense organ disorders (1 source) Acute otitis externa of left ear; Translations: [Unspecified acute noninfective otitis externa, left ear] 12-24-2023 Episodic Other gastrointestinal disorders (20 sources) Irritable bowel syndrome; Translations: [Irritable bowel syndrome without diarrhea] Onset: 2 08-06-2021 Chronic Other gastrointestinal disorders (1 source) Diarrhea, unspecified; Translations: [Diarrhea, unspecified type] Onset: 5 Episodic Other injuries and conditions due to external causes (1 source) Abrasion and/or friction burn of multiple sites; Translations: [Unspecified multiple injuries, initial encounter] 04-22-2024 Episodic Other liver diseases (1 source) Alkaline phosphatase raised; Translations: [Abnormal levels of other serum enzymes] 11-14-2023 Episodic Other lower respiratory disease (7 sources) Wheezing; Translations: [Wheezing] Episodic Other lower respiratory disease (1 source) Multiple nodules of lung; Translations: [Other nonspecific abnormal finding of lung field] 01-16-2024 Episodic Other lower respiratory disease (1 source) Cough; Translations: [Subacute cough] 09-14-2024 Episodic Other lower respiratory disease (1 source) Other disorders of lung; Translations: [Restrictive lung disease] Onset: 5 Episodic Other lower respiratory disease (1 source) Other nonspecific abnormal finding of lung field; Translations: [Multiple lung nodules] Onset: 5 Episodic Other nervous system disorders (3 sources) Abnormal gait; Translations: [Other abnormalities of gait and mobility] 02-04-2025 Episodic Other nervous system disorders (1 source) Other abnormalities of gait and mobility; Translations: [Impaired gait and mobility] Onset: 5 Episodic Other non-traumatic joint disorders (2 sources) Swelling of upper limb; Translations: [Effusion, right elbow] 08-06-2023 Episodic Other non-traumatic joint disorders (1 source) Pain in left shoulder; Translations: [Pain in joint, shoulder region] 02-25-2024 Episodic Other nutritional; endocrine; and metabolic disorders (20 sources) Morbid obesity; Translations: [Morbid (severe) obesity due to excess calories] Onset: 6 09-26-2015 Chronic Other nutritional; endocrine; and metabolic disorders (20 sources) Body mass index 40+ - severely obese; Translations: [Body mass index (BMI) 45.0-49.9, adult] Onset: 3 Chronic Other nutritional; endocrine; and metabolic disorders (1 source) Hypomagnesemia; Translations: [Hypomagnesemia] Onset: 3 Chronic Other nutritional; endocrine; and metabolic disorders (2 sources) Severe obesity; Translations: [Class 3 severe obesity with body mass index (BMI) of 45.0 to 49.9 in adult, unspecified obesity type, unspecified whether serious comorbidity present (HCC)] 04-19-2024 Chronic Other nutritional; endocrine; and metabolic disorders (1 source) Morbid (severe) obesity due to excess calories; Translations: [Morbid obesity (HCC)] Onset: 5 Chronic Other nutritional; endocrine; and metabolic disorders (1 source) Body mass index (BMI) 50.0-59.9, adult; Translations: [Class 3 severe obesity with body mass index (BMI) of 50.0 to 59.9 in adult, unspecified obesity type, unspecified whether serious comorbidity present (HCC)] Onset: 6 Chronic Other screening for suspected conditions (not mental disorders or infectious disease) (2 sources) Encounter for screening for malignant neoplasm of respiratory organs; Translations: [Encounter for screening mammogram for malignant neoplasm of breast] Onset: 5 Episodic Other skin disorders (1 source) Callus of heel; Translations: [Corns and callosities] Episodic Other skin disorders (4 sources) Eruption; Translations: [Rash and other nonspecific skin eruption] Episodic Other skin disorders (1 source) Skin lesion; Translations: [Disorder of the skin and subcutaneous tissue, unspecified] 04-20-2024 Episodic Other upper respiratory disease (20 sources) Allergic rhinitis; Translations: [Allergic rhinitis, unspecified] 09-26-2015 Chronic Other upper respiratory infections (1 source) Chronic sinusitis; Translations: [Chronic sinusitis, unspecified] 05-05-2023 Chronic Residual codes; unclassified (20 sources) Obstructive sleep apnea syndrome; Translations: [Obstructive sleep apnea (adult) (pediatric)] Onset: 6 09-19-2015 Chronic Residual codes; unclassified (2 sources) Obstructive sleep apnea (adult) (pediatric); Translations: [TRINI (obstructive sleep apnea)] Onset: 6 Chronic Residual codes; unclassified (5 sources) Bilateral lower limb edema; Translations: [Localized edema] 11-29-2023 Episodic Respiratory failure; insufficiency; arrest (adult) (2 sources) Dependence on supplemental oxygen; Translations: [Oxygen dependent] Onset: 5 Chronic Screening and history of mental health and substance abuse codes (6 sources) Ex-cigarette smoker; Translations: [Personal history of nicotine dependence] Onset: 5 04-08-2023 Episodic Septicemia (except in labor) (8 sources) Sepsis; Translations: [Sepsis, unspecified organism] Onset: 3 Episodic Skin and subcutaneous tissue infections (3 sources) Cellulitis of skin; Translations: [Cellulitis, unspecified] Episodic Spondylosis; intervertebral disc disorders; other back problems (20 sources) Degeneration of lumbar intervertebral disc; Translations: [Other intervertebral disc degeneration, lumbar region] Onset: 6 11-18-2017 Chronic Superficial injury; contusion (5 sources) Contusion of rib; Translations: [Contusion of unspecified front wall of thorax, initial encounter] 11-13-2022 Episodic Thyroid disorders (20 sources) Hypothyroidism; Translations: [Hypothyroidism, unspecified] Onset: 6 09-26-2015 Chronic Unclassified (1 source) Low back pain, unspecified; Translations: [Low back pain, unspecified] Onset: 5 Unclassified (1 source) Class 3 severe obesity with body mass index (BMI) of 50.0 to 59.9 in adult, unspecified obesity type, unspecified whether serious comorbidity present (HCC); Translations: [Class 3 severe obesity with body mass index (BMI) of 50.0 to 59.9 in adult, unspecified obesity type, unspecified whether serious comorbidity present (HCC)] Onset: 6 Unclassified (1 source) Subacute cough; Translations: [Subacute cough] Onset: 5 Urinary tract infections (1 source) Acute cystitis; Translations: [Acute cystitis without hematuria] Episodic Past or Other Problems Problem Classification Problem Date Documented Da te Episodic/Chronic Abdominal hernia (20 sources) Umbilical hernia; Translations: [Umbilical hernia without obstruction or gangrene] Onset: 09-05-2022 07-04-2021 Episodic Abdominal pain (20 sources) Epigastric pain; Translations: [Epigastric pain] Onset: 10-25-2020 10-25-2020 Episodic Allergic reactions (20 sources) Atopic dermatitis; Translations: [Other atopic dermatitis] Onset: 11-05-2006 Resolved: 09-26-2015 09-26-2015 Chronic Allergic reactions (20 sources) Contact dermatitis; Translations: [Unspecified contact dermatitis, unspecified cause] Onset: 11-05-2006 Resolved: 09-26-2015 09-26-2015 Episodic Chronic obstructive pulmonary disease and bronchiectasis (6 sources) Bronchitis; Translations: [Bronchitis, not specified as acute or chronic] Onset: 08-23-2024 Episodic Diabetes mellitus without complication (3 sources) Prediabetes; Translations: [Prediabetes] Onset: 08-24-2024 11-12-2023 Episodic Mycoses (20 sources) Tinea pedis; Translations: [Tinea pedis] Onset: 02-04-2019 02-04-2019 Episodic Other acquired deformities (20 sources) Lumbar spondylolisthesis; Translations: [Spondylolisthesis, lumbar region] Onset: 07-17-2015 12-09-2018 Episodic Other aftercare (20 sources) Patient encounter status; Translations: [Other buttermaker continuous churn (current) drug therapy] Onset: 12-05-2020 12-05-2020 Episodic Other aftercare (1 source) Other buttermaker continuous churn (current) drug therapy; Translations: [Medication management] Onset: 12-05-2020 Episodic Other gastrointestinal disorders (20 sources) Abdominal bloating; Translations: [Abdominal distension (gaseous)] Onset: 10-25-2020 10-25-2020 Episodic Other gastrointestinal disorders (1 source) Personal history of other diseases of the digestive system; Translations: [S/P repair of ventral hernia] Onset: 09-06-2022 Episodic Other inflammatory condition of skin (20 sources) Pruritus of skin; Translations: [Pruritus, unspecified] Onset: 11-05-2006 Resolved: 09-26-2015 09-26-2015 Episodic Other lower respiratory disease (20 sources) Dyspnea; Translations: [Shortness of breath] Onset: 12-29-2017 05-29-2020 Episodic Other skin disorders (20 sources) Disorder of sebaceous gland; Translations: [Other specified follicular disorders] Onset: 11-05-2006 Resolved: 09-26-2015 09-26-2015 Episodic Other upper respiratory infections (1 source) Acute pharyngitis, unspecified; Translations: [Sore throat] Onset: 11-03-2024 Episodic Otitis media and related conditions (20 sources) Perforation of right tympanic membrane; Translations: [Unspecified perforation of tympanic membrane, right ear] Onset: 06-18-2017 06-18-2017 Episodic Pneumonia (except that caused by tuberculosis or sexually transmitted disease) (13 sources) Pneumonia; Translations: [Pneumonia, unspecified organism] Onset: 05-26-2022 Episodic Residual codes; unclassified (20 sources) Tobacco user; Translations: [Tobacco use] Onset: 03-23-2012 03-23-2012 Episodic Residual codes; unclassified (20 sources) History of hernia repair; Translations: [Other specified postprocedural states] Onset: 09-06-2022 09-06-2022 Episodic Residual codes; unclassified (1 source) Other specified postprocedural states; Translations: [S/P repair of ventral hernia] Onset: 09-06-2022 Episodic Spondylosis; intervertebral disc disorders; other back problems (20 sources) Backache; Translations: [Dorsalgia, unspecified] Onset: 08-11-2009 Resolved: 02-20-2016 07-17-2015 Episodic Unclassified (1 source) Patient encounter status 02-02-2025 Results Test Name Value Interpretation Reference Range [facility] ) SANTY RAZA ([id number]) 1960 F Date Time Provider Department 04/18/25 8:45 AM BUD SCHULTZ PULMWS During your visit today, we recorded the following information about you: Pulse Respiration Blood pressure Weight 84/minute 16/minute 132/70 144.1 kg Bud Schultz MD 04/18/2025 12:03 PM Signed . Respiratory [place] Note Patient name: Santy Raza PCP: Deloris Chavez APRN.CONTENT MANAGEMENT CONSULTANT Referring Physician: Same Recording using Qumulo software for draft documentation of the visit was discussed with the patient/authorized employee representative; all questions welcomed and answered. Patient/authorized employee representative agreed to proceed CC: Recurrent bronchitis/COPD HPI: Santy Raza 64 year old female former 37 pack year smoker, quitting in 2024 with PMH significant for morbid obesity, TRINI (intolerant of CPAP), hypothyroidism, HTN, rhinitis, participating in lung cancer screening program being seen for recurrent bronchitis. Patient has a history of recurrent bronchitis requiring antibiotics and steroids, multiple times per year. Her bronchitis has dramatically improved since she stopped smoking this past bring. She has dyspnea on exertion which has been stable. No current chronic cough with mucus production. She hears occasional wheezing at night only when she is supine. She mainly sleeps in a recliner. She does have a history of acid reflux. She uses 2 L of oxygen with exertion and uses oxygen at night. She is supposed to be on CPAP but was unable to tolerate wearing a mask. Current inhaled therapy consist of Trelegy Ellipta with as needed Symbicort. She has had problems with recurrent thrush. DME: [facility] 2 L with actvity and at night DATA: COPD Assessment Test I never cough 0 1 2 3 4 5 I cough all the time; Score 3 I have no phlegm 0 1 2 3 4 5 My chest is completely full of phlegm; Score 2 My chest does not feel tight at all 0 1 2 3 4 5 My chest chest feels very tight; Score 3 When I walk up a hill or one flight of stairs I am not breathless 0 1 2 3 4 5 When I walk up a hill or one flight or stairs I am very breathless; Score 5 I am not limited doing any activities at home 0 1 2 3 4 5 I am very limited doing activities at home; Score 3 I am confident leaving my home despite my lung condition 0 1 2 3 4 5 I am not at all confident leaving my home because of my lung condition; Score 2 I sleep soundly 0 1 2 3 4 5 don't sleep soundly because of my lungs; Score 3 I have lots of energy 0 1 2 3 4 5 I have no energy at all; Score 3 Total Score: 24 PFT 03/2025: Spirometry shows combined restriction and obstruction. Diffusion capacity normal Labs: Eosinophils % % 0.0 0.0 0.0 0.0 0.0 2.5 1.8 Abs Eosin <0.46 k/uL <0.03 <0.03 <0.03 <0.03 <0.03 0.20 0.23 Imaging / Diagnostic Studies: DATE OF EXAM: Mar 31 2025 10:13AM [facility] 0562 - CT LUNG SCREEN WO IVCON / COMPARISON: Chest CT dated 01/16/2024 RESULT: Are nodules present? Yes, 1-5 nodules Stable noncalcified solid nodules including a 4 mm right upper lobe nodule on image 46, a 4 mm right upper lobe nodule on image 84, a 3mm right upper lobe nodule on image 105, a 5 mm right lower lobe nodule on image 143, a 4 mm left upper lobe nodule on image 85. Calcified granulomas are present. OTHER LUNG FINDINGS: Mild emphysema. There is diffuse bilateral mild bronchial wall thickening. No endotracheal or central endobronchial lesion is identified. Scattered linear atelectasis/scarring in the lingula, and left lower lobe. CORONARY ARTERY CALCIFICATION:Mild. CARDIOVASCULAR: The thoracic aorta and main pulmonary artery are normal in caliber. No pericardial effusion or thickening. MEDIASTINUM: No enlarged thoracic lymph nodes. Calcified lymph nodes indicates evidence of prior granulomatous infection, such as histoplasmosis or tuberculosis OTHER SIGNIFICANT FINDINGS: Degenerative changes are seen. Review of chest CT shows minimal upper lobe emphysema, evidence of old granulomatous disease PAST MEDICAL HISTORY Diagnosis Date Allergic rhinitis, cause unspecified BMI 45.0-49.9, adult ([facility]) 08/27/2022 COPD (chronic obstructive pulmonary disease) ([facility]) Essential hypertension, benign Hypothyroidism 09/26/2015 Mixed conductive and sensorineural hearing loss TRINI (obstructive sleep apnea) No on CPAP Other anxiety states Perforated tympanic membrane 03/29/2011 S/P repair of ventral hernia 09/06/2022 Synovitis and tenosynovitis, unspecified Tobacco abuse 03/23/2012 ALLERGIES Allergen Reactions Doxycycline Monohyd* Vomiting Hctz [Amiloride-Hyd* Itching Levaquin [Levofloxa* Other: See Comments Jittery nervousness Meloxicam Itching, Rash, Swelling Peanuts Itching amitriptyline (ELAVIL) 25 mg tablet Take 1 tablet by mouth daily at bedtime (more content not included)... [facility] SANTY RAZA ([id number]) 1960 F Date Time Provider Department 04/08/25 DELORIS CHAVEZ During your visit today, we recorded the following information about you: Juanita Wheeler RN 04/08/2025 11:38 AM Signed Henry with [facility] calls to let provider know that they have received office visit notes but are not able to proceed with order for oxygen because they need more updated sleep study results. Henry reports that if provider sends them orders for a nocturnal on room air then they can proceed with overnight testing. Diagnosis of TRINI would not be covered but nocturnal hypoxemia would be. Fax order back to [phone]. BECKIE Molina Christy, APRN.CNP 04/08/2025 4:37 PM Signed I went ahead and put the order in for a nocturnal oximetry. Can we please fax, as requested. Deloris Chavez APRN.Jose Langford LPN 04/11/2025 11:05 AM Signed Order faxed. Jose Summers LPN Allergies As of Date: 04/08/2025 Noted Allergy Reaction DOXYCYCLINE MONOHYDRATE 07/10/2016 11 - Vomiting HCTZ (AMILORIDE-HYDROCHLOROTHIAZ I*09/05/2022 9 - Itching LEVAQUIN (LEVOFLOXACIN) 03/04/2005 14 - Other: See Comments Comments: Jittery nervousness MELOXICAM 10/25/2019 9 - Itching 2 - Rash 7 - Swelling PEANUTS 03/04/2005 9 - Itching Date Reviewed: 04/04/2025 Reviewed by: Jose Summers LPN - Fully Assessed Reason for Visit: Orders [681] Primary Visit Diagnosis:Nocturnal hypoxemia [G47.34] Order(s):OXIMETRY - NOCTURNAL [[id number]] Order #: [id number] Prescriptions as of 04/11/2025 - qrnkdhucpfm-peiblfhdm-rgfjd ter (TRELEGY ELLIPTA) 100-62.5-25 mcg inhalation powder Inhale 1 puff as instructed once daily. - desvenlafaxine ER (PRISTIQ) 50 mg 24 hr tablet Take 1 tablet by mouth once daily. - ofloxacin (FLOXIN) 0.3 % otic solution Use 5 drops in both ears once daily. - Nebulizer Accessories misc 1 each as directed. Nebulizer tubing and mouth piece. - buPROPion XL (WELLBUTRIN XL) 300 mg 24 hr tablet Take 1 tablet by mouth once daily. - lisinopril (ZESTRIL) 40 mg tablet Take 1 tablet by mouth once daily. - amLODIPine (NORVASC) 5 mg tablet Take 1 tablet by mouth once daily. - levothyroxine (LEVOXYL) 200 mcg tablet Take 1 tablet by mouth once daily. Take on empty stomach. For thyroid - lansoprazole (PREVACID) 15 mg capsule Take 1 capsule by mouth once daily. - atorvastatin (LIPITOR) 10 mg tablet Take 1 tablet by mouth daily at bedtime. For cholesterol. - amitriptyline (ELAVIL) 25 mg tablet Take 1 tablet by mouth daily at bedtime. - albuterol (PROVENTIL) 2.5 mg /3 mL (0.083 %) nebulizer solution Use 3 mL via nebulizer every 6 hours as needed for wheezing/shortness of breath. - benzonatate (TESSALON PERLES) 100 mg capsule Take 1-2 capsules by mouth three times a day as needed for cough. - budesonide-formoterol (SYMBICORT) 160-4.5 mcg/actuation inhaler Inhale 2 puffs as instructed two times a day. - oxygen-air delivery systems (WALKABOUT MINI OXYGEN SYSTEM MISC) - furosemide (LASIX) 20 mg tablet Take 1 tablet by mouth once daily. If you have increased swelling, okay to increase to 2 tablets daily for 2-3 days. Do not do more than once weekly. - HYDROcodone-acetaminophen (NORCO) 5-325 mg per tablet Take 1 tablet by mouth every 8 hours as needed for pain. From pain management. Aware to not use with xanax. - loratadine (CLARITIN) 10 mg tablet Take 1 tablet by mouth once daily. - Ipratropium (ATROVENT HFA) 17 mcg/actuation inhaler Inhale 2 Puffs as instructed every 6 hours. - Cholecalciferol, Vitamin D3, 125 mcg (5,000 unit) cap Take 1 capsule by mouth once daily. - CPAP autoCPAP 5-15 cmH2O, mask, tubing, filters, heated humidity, lifetime supplies. Dx: TRINI - Nebulizer 1 Each as needed. NEBULIZER TUBING AND SUPPLIES. DX: CHRONIC BRONCHITIS J41.1, WHEEZING R06.2. FAX TO [facility] [place] [phone] - COMPOUNDED PRESCRIPTION Nebulizer for albuterol every fours as needed ICD: R06.2 Problem List As Of Date 04/08/2025 Noted Resolved Anxiety [F41.9] 07/08/2019 Allergic rhinitis [J30.9] BENIGN HYPERTENSION [I10] ADJUSTMENT DISORDER WITH DEPRESSED MOOD [F43.21]07/02/2006 Contact dermatitis and other eczema, due to uns*11/05/2006 09/26/2015 Contact dermatitis and other eczema due to othe*11/05/2006 09/26/2015 Other atopic dermatitis and related conditions *11/05/2006 09/26/2015 XEROSIS////SEBACEOUS GLAND DIS NEC [L73.8] 11/05/2006 09/26/2015 Unspecified pruritic disorder [L29.9] 11/05/2006 09/26/2015 Sciatica [M54.30] 08/11/2009 02/20/2016 Tobacco abuse [Z72.0] 03/23/2012 Hyperlipidemia LDL goal <130 [E78.5] 07/17/2015 Spondylolisthesis of lumbar region [M43.16] 07/17/2015 Disabling back pain [M54.9] 07/17/2015 TRINI (obstructive sleep apnea) [G47.33] 09/19/2015 Hypothyroidism [E03.9] 09/26/2015 Morbid obesity (more content not included)... Normal [facility]OVon 04-04-2025 CNOV Office Visit (FAMPWS ) SANTY RAZA ([id number]) 1960 F Date Time Provider Department 04/04/25 9:40 AM [facility] During your visit today, we recorded the following information about you: Pulse Respiration Blood pressure 82/minute 16/minute 138/80 Jose Summers LPN 04/04/2025 10:41 PM Signed SpO2 96% @ rest on RA. SpO2 93% with ambulation on RA. Pt did become short of breath while walking, but did not drop below 93%. Deloris Chavez APRN.CNP 04/04/2025 10:20 AM Signed Schedule w/ pulmonology. Deloris Chavez APRN.CNP 04/04/2025 10:41 PM Signed This is a 64 year old female who presents today with: The patient is a 64-year-old female presenting for reauthorization of home oxygen therapy after an insurance change. HISTORY OF PRESENT ILLNESS: Santy Cooper Raza is a 64-year-old female presenting for oxygen prescription renewal due to insurance change. Oxygen Therapy: - Requires a new oxygen prescription due to insurance change. - Has been attempting to contact the responsible democrat for two weeks without success. - Uses oxygen intermittently during the day, especially when ambulating or performing activities like cooking. - Consistently uses oxygen at night, reporting improved sleep quality. - Previous CPAP use was unsuccessful due to episodes of dyspnea upon waking. - Previous sleep study showed oxygen saturation dropping to 77%. PAST MEDICAL HISTORY: PAST MEDICAL HISTORY Diagnosis Date Allergic rhinitis, cause unspecified BMI 45.0-49.9, adult ([facility]) 08/27/2022 Essential hypertension, benign Hypothyroidism 09/26/2015 Mixed conductive and sensorineural hearing loss TRINI on CPAP Other anxiety states Perforated tympanic membrane 03/29/2011 S/P repair of ventral hernia 09/06/2022 Synovitis and tenosynovitis, unspecified Tobacco abuse 03/23/2012 PAST SURGICAL HISTORY Procedure Laterality Date COLONOSCOPY SCRN NOT HIGH RISK 09/13/2020 EGD 10/25/2020 L'SCOPE DX W/WO BRUSHINGS/WASHINGS 09/05/2022 Dr. Guadarrama LIG/TRNSXJ FLP TUBE ABDL/VAG APPR UNI/BI Tubal ligation LX REPAIR RECURRENT VENTRAL HERNIA 09/05/2022 open, w/ mesh. Dr. Guadarrama MYRINGOTOMY ASPIRAND/EUSTACHIAN TUBE NFLTJ ANES Myringotomy/tubes NEUROPLASTY AND/TRANSPOS MEDIAN NRV CARPAL TUNNE Bilateral 01/15/2019 Bilateral carpal tunnel release REDUCTION OF LARGE BREAST 04/23/2016 STEREOTACT BREAST BX EA LESION PC 09/30/2018 left stereotactic breast biopsy w/vacuum assisted core needle biopsy, specimen radiograph and marker placement ALLERGIES Doxycycline Monohydrate, Hctz [Amiloride-Hydrochlorothiaz rick], Levaquin [Levofloxacin], Meloxicam, and Peanuts MEDICATIONS Current Outpatient Medications Medication Sig myvvedvqgzh-tyzyoayzr-lzedx ter (TRELEGY ELLIPTA) 100-62.5-25 mcg inhalation powder Inhale 1 puff as instructed once daily. desvenlafaxine ER (PRISTIQ) 50 mg 24 hr tablet Take 1 tablet by mouth once daily. ALPRAZolam (XANAX) 1 mg tablet Take 1 tablet by mouth two times a day as needed for up to 30 days. ofloxacin (FLOXIN) 0.3 % otic solution Use 5 drops in both ears once daily. (Patient not taking: Reported on 03/31/2025) Nebulizer Accessories misc 1 each as directed. Nebulizer tubing and mouth piece. buPROPion XL (WELLBUTRIN XL) 300 mg 24 hr tablet Take 1 tablet by mouth once daily. lisinopril (ZESTRIL) 40 mg tablet Take 1 tablet by mouth once daily. amLODIPine (NORVASC) 5 mg tablet Take 1 tablet by mouth once daily. levothyroxine (LEVOXYL) 200 mcg tablet Take 1 tablet by mouth once daily. Take on empty stomach. For thyroid lansoprazole (PREVACID) 15 mg capsule Take 1 capsule by mouth once daily. atorvastatin (LIPITOR) 10 mg tablet Take 1 tablet by mouth daily at bedtime. For cholesterol. amitriptyline (ELAVIL) 25 mg tablet Take 1 tablet by mouth daily at bedtime. albuterol (PROVENTIL) 2.5 mg /3 mL (0.083 %) nebulizer solution Use 3 mL via nebulizer every 6 hours as needed for wheezing/shortness of breath. benzonatate (TESSALON PERLES) 100 mg capsule Take 1-2 capsules by mouth three times a day as needed for cough. budesonide-formoterol (SYMBICORT) 160-4.5 mcg/actuation inhaler Inhale 2 puffs as instructed two times a day. oxygen-air delivery systems (WALKABOUT MINI OXYGEN SYSTEM [facility]) furosemide (LASIX) 20 mg tablet Take 1 tablet by mouth once daily. If you have increased swelling, okay to increase to 2 tablets daily for 2-3 days. Do not do more than once weekly. HYDROcodone-acetaminophen (NORCO) 5-325 mg per tablet Take 1 tablet by mouth every 8 hours as needed for pain. From pain management. Aware to not use with xanax. loratadine (CLARITIN) 10 mg tablet Take 1 tablet by mouth once daily. Ipratropium (ATROVENT HFA) 17 mcg/actuation inhaler Inhale 2 Puffs as instructed every 6 hours. Cholecalciferol, Vitamin D3, 125 mcg (5,000 unit) cap T (more content not included)... Normal [facility] 04-04-2025 [facility] Telephone (FAMPWS) SANTY RAZA ([id number]) 1960 F Date Time Provider Department 04/04/25 DELORIS CHAVEZ During your visit today, we recorded the following information about you: Deloris Chavez APRN.CONTENT MANAGEMENT CONSULTANT 04/04/2025 10:42 PM Signed Can we please fax today's office notes to DME/O2 company/insurance for home O2. Deloris Chavez APRN.Jose Langford LPN 04/05/2025 9:18 AM Signed OV note faxed to [facility] [phone] Allergies As of Date: 04/04/2025 Noted Allergy Reaction DOXYCYCLINE MONOHYDRATE 07/10/2016 11 - Vomiting HCTZ (AMILORIDE-HYDROCHLOROTHIAZ I*09/05/2022 9 - Itching LEVAQUIN (LEVOFLOXACIN) 03/04/2005 14 - Other: See Comments Comments: Jittery nervousness MELOXICAM 10/25/2019 9 - Itching 2 - Rash 7 - Swelling PEANUTS 03/04/2005 9 - Itching Date Reviewed: 04/04/2025 Reviewed by: Jose Summers LPN - Fully Assessed Prescriptions as of 04/05/2025 - zdhzyrydyyd-sbrksbdhw-ulzmp ter (TRELEGY ELLIPTA) 100-62.5-25 mcg inhalation powder Inhale 1 puff as instructed once daily. - desvenlafaxine ER (PRISTIQ) 50 mg 24 hr tablet Take 1 tablet by mouth once daily. - ALPRAZolam (XANAX) 1 mg tablet Take 1 tablet by mouth two times a day as needed for up to 30 days. - ofloxacin (FLOXIN) 0.3 % otic solution Use 5 drops in both ears once daily. - Nebulizer Accessories misc 1 each as directed. Nebulizer tubing and mouth piece. - buPROPion XL (WELLBUTRIN XL) 300 mg 24 hr tablet Take 1 tablet by mouth once daily. - lisinopril (ZESTRIL) 40 mg tablet Take 1 tablet by mouth once daily. - amLODIPine (NORVASC) 5 mg tablet Take 1 tablet by mouth once daily. - levothyroxine (LEVOXYL) 200 mcg tablet Take 1 tablet by mouth once daily. Take on empty stomach. For thyroid - lansoprazole (PREVACID) 15 mg capsule Take 1 capsule by mouth once daily. - atorvastatin (LIPITOR) 10 mg tablet Take 1 tablet by mouth daily at bedtime. For cholesterol. - amitriptyline (ELAVIL) 25 mg tablet Take 1 tablet by mouth daily at bedtime. - albuterol (PROVENTIL) 2.5 mg /3 mL (0.083 %) nebulizer solution Use 3 mL via nebulizer every 6 hours as needed for wheezing/shortness of breath. - benzonatate (TESSALON PERLES) 100 mg capsule Take 1-2 capsules by mouth three times a day as needed for cough. - budesonide-formoterol (SYMBICORT) 160-4.5 mcg/actuation inhaler Inhale 2 puffs as instructed two times a day. - oxygen-air delivery systems ([facility] [facility] [facility] [facility]) - furosemide (LASIX) 20 mg tablet Take 1 tablet by mouth once daily. If you have increased swelling, okay to increase to 2 tablets daily for 2-3 days. Do not do more than once weekly. - HYDROcodone-acetaminophen (NORCO) 5-325 mg per tablet Take 1 tablet by mouth every 8 hours as needed for pain. From pain management. Aware to not use with xanax. - loratadine (CLARITIN) 10 mg tablet Take 1 tablet by mouth once daily. - Ipratropium (ATROVENT HFA) 17 mcg/actuation inhaler Inhale 2 Puffs as instructed every 6 hours. - Cholecalciferol, Vitamin D3, 125 mcg (5,000 unit) cap Take 1 capsule by mouth once daily. - CPAP autoCPAP 5-15 cmH2O, mask, tubing, filters, heated humidity, lifetime supplies. Dx: TRINI - Nebulizer 1 Each as needed. NEBULIZER TUBING AND SUPPLIES. DX: CHRONIC BRONCHITIS J41.1, WHEEZING R06.2. FAX TO [employer] [phone] - COMPOUNDED PRESCRIPTION Nebulizer for albuterol every fours as needed ICD: R06.2 Problem List As Of Date 04/04/2025 Noted Resolved Anxiety [F41.9] 07/08/2019 Allergic rhinitis [J30.9] BENIGN HYPERTENSION [I10] ADJUSTMENT DISORDER WITH DEPRESSED MOOD [F43.21]07/02/2006 Contact dermatitis and other eczema, due to uns*11/05/2006 09/26/2015 Contact dermatitis and other eczema due to othe*11/05/2006 09/26/2015 Other atopic dermatitis and related conditions *11/05/2006 09/26/2015 XEROSIS////SEBACEOUS GLAND DIS NEC [L73.8] 11/05/2006 09/26/2015 Unspecified pruritic disorder [L29.9] 11/05/2006 09/26/2015 Sciatica [M54.30] 08/11/2009 02/20/2016 Tobacco abuse [Z72.0] 03/23/2012 Hyperlipidemia LDL goal <130 [E78.5] 07/17/2015 Spondylolisthesis of lumbar region [M43.16] 07/17/2015 Disabling back pain [M54.9] 07/17/2015 TRINI (obstructive sleep apnea) [G47.33] 09/19/2015 Hypothyroidism [E03.9] 09/26/2015 Morbid obesity due to excess calories (HCC) [E6*09/26/2015 DDD (degenerative disc disease), lumbar [M51.36*02/28/2016 Spondylosis of lumbar region without myelopathy*02/28/2016 GERD without esophagitis [K21.9] 02/04/2017 Mucopurulent chronic bronchitis (HCC) [J41.1] 06/04/2017 Osteoarthritis of spine with radiculopathy, lum*06/17/2017 Tympanic membrane perforation, right [H72.91] 06/18/2017 Chronic bilateral thoracic back pain [M54.6, G8*08/14/2017 Shortness of breath [R06.02] 12/29/2017 Tinea pedis of both feet [B35.3] 02/04/2019 Generalized anxiety disorder with panic a (more content not included)... Normal [facility] CNCOon 04-01-2025 CNCO Letter Text Normal [facility] CNOVon 03-31-2025 CNOV Office Visit (PULMWS ) SANTY RAZA ([id number]) 1960 F Date Time Provider Department 03/31/25 11:30 AM GARETH DOMINGO During your visit today, we recorded the following information about you: Pulse Respiration Blood pressure Weight 86/minute 18/minute 100/62 144.7 kg Gareth Domingo APRN.CNP 03/31/2025 11:55 AM Signed LUNG SCREENING ANNUAL VISIT PRIMARY CARE PHYSICIAN: Deloris Chavez APRN.CNP PULMONARY PROVIDER: Dr. Jagdish Schultz in the past Results will be communicated via letter or electronic record if applicable. Visit Delivery: In Person Patient Visit Type: established Current or Ex-smoker? Ex Exam Type: annual LDCT Number of Pack Years: 37 Current smoker (=0) or Number of Years since Quit: <1 year The patient's smoking history is similar to prior year shared decision visit. The reason for the discrepancy is NA Chief Complaint: Established patient in lung cancer screening program here for annual follow-up. Impression / Recommendations Santy Raza presents for annual lung cancer screening annual exam and nodule evaluation. Plan: Indeterminate pulmonary nodules: Previously identified nodules appear stable and no new nodules of concern were seen on the exam. Low dose CT Scan to be repeated in one year. Plan subject to change pending final radiology report and recommendations. Nature of the lung nodule(s) and the options for further evaluation discussed in detail with patient. Santy Raza expressed understanding and is in agreement with plan. 2. Encounter for screening for malignant neoplasm of respiratory organs I have determined that the patient is eligible for continued low dose CT screening based on age, absence of signs or symptoms of lung cancer, smoking history and total pack years. The patient was counseled on the importance of adherence to annual LDCT lung cancer screening, impact of comorbidities and ability or willingness to undergo diagnosis and treatment. The patient understands and feels comfortable with it: Yes. 3. Nicotine Dependence The patient was counseled on the importance of maintaining cigarette smoking abstinence - The patient is committed to remaining abstinent from tobacco. Pt quit cold turkey about 5 months ago. Doing well. 4. Asthma with chronic obstructive pulmonary disease (COPD) ([facility]) She is on symbicort daily and has continued shortness of breath, cough and wheezing. Will change to triple therapy inhaler Trelegy. She was on Spiriva with the Symbicort in the past, but it sounds like there was coverage issue. - yfrufmvlagq-sjdhsejnu-vjoog ter (TRELEGY ELLIPTA) 100-62.5-25 mcg inhalation powder; Inhale 1 puff as instructed once daily. Dispense: 1 each; Refill: 11 Gareth Domingo APRN.[facility] March 31, 2025 11:46 AM History of Present Illness: Santy Raza is a 64 year old female who is presenting today for annual lung cancer screening LDCT and nodule surveillance/management. Patient has multiple nodules found on previous lung cancer screening CT. Last CT was performed on 01/16/2024 and was LUNG RADS Category 2. Previous potentially significant incidental findings on imaging: None. Patient is a former smoker with a 37 pack year history. Patient quit smoking 5 months ago at age 63 . Patient will continue to be eligible for lung cancer screening The patient does not have any symptoms or signs of lung cancer. Patient has SOB with their daily activity. She uses a rollator walker and oxygen with walking. Occasional wheezing. Patient denies feeling of chest tightness/congestion in the chest. Patient does not have a new or concerning cough, and denies hemoptysis. Patient does have a chronic daily cough. Denies regular or recent fevers/chills. Patient does not have any significant unintentional weight loss. Patient denies having any respiratory infections or COVID-19 in the past few months. Using Symbicort daily. Albuterol as needed. She did have another inhaler she used with the symbicort, but the insurance stopped covering it. She has not noticed an improvement in her symptoms since quitting. She still has shortness of breath with exertion like going up the stairs to bed. Still has cough and wheezing. Has been diagnosed with asthma and COPD. Symptoms more consistent with asthma on prior evaluations. Modified Medical Research [place] Dyspnea Scale (MMRC) I am too breathless to leave the house or I am breathless when dressing 4 Last 12 Encounter Wt Readings: Date: Wt: 03/31/2025 144.7 kg (319 lb) 03/30/2025 144.7 kg (319 lb) 02/07/2025 142.4 kg (314 lb) 11/03/2024 143.7 kg (316 lb 12.8 oz) 08/23/2024 139.7 kg (308 lb) 08/19/2024 141.7 kg (312 lb 8 oz) 06/02/2024 140.5 kg (309 lb 11.9 oz (more content not included)... Normal [facility] CT LUNG SCREEN WO IVCONon CT LUNG SCREEN WO IVCON * * *Final Report* * * DATE OF EXAM: Mar 31 2025 10:13AM [facility] 0562 - CT LUNG SCREEN WO IVCON / PROCEDURE REASON: multiple diagnoses * * * * Physician Interpretation * * * * EXAMINATION: CHEST CT WITHOUT CONTRAST (LOW-DOSE CT LUNG CANCER SCREENING PROTOCOL) CLINICAL HISTORY: Lung cancer LDCT screening ? absence of signs or symptoms of lung cancer. Subsequent (annual) Technique: Spiral CT acquisition of the chest from the thoracic inlet to the upper abdomen without contrast. MQ: CTLCS_6 Patient characteristics: * Xrzk-ed-Pdhkw: 1960; Age at exam: 64 years * Gender: Female * Lung Disease: Asymptomatic (no signs or symptoms of lung disease) * Number of Pack Years: 37 * Current smoker (=0) or Number of Years since Quit: <1 * Ordering provider and NPI: GARETH DOMINGO [id number] * Interpreting radiologist and NPI: Tonie [id number] Exam acquisition parameters: * Exam Date: 03/31/2025 10:13 AM * Site: [facility] * * CT System Vault Manager: [place]wall * CT System Model: Sensation * Tube Current-Time (mA-sec): 56 * Peak Voltage (kV): 120V * Scan Time (sec): 11.36 * Scan Volume (z-length, cm): -30.30 * Pitch: 0.75 * Slice Thickness (mm): 1.5 * CT Dose-Length Product: 164 mGy*cm * CT Dose Index: 4.34mGy * CT Dose Reduction Method: Automated exposure control(AEC) and iterative recon COMPARISON: Chest CT dated 01/16/2024 RESULT: Are nodules present? Yes, 1-5 nodules Stable noncalcified solid nodules including a 4 mm right upper lobe nodule on image 46, a 4 mm right upper lobe nodule on image 84, a 3mm right upper lobe nodule on image 105, a 5 mm right lower lobe nodule on image 143, a 4 mm left upper lobe nodule on image 85. Calcified granulomas are present. OTHER LUNG FINDINGS: Mild emphysema. There is diffuse bilateral mild bronchial wall thickening. No endotracheal or central endobronchial lesion is identified. Scattered linear atelectasis/scarring in the lingula, and left lower lobe. CORONARY ARTERY CALCIFICATION:Mild. CARDIOVASCULAR: The thoracic aorta and main pulmonary artery are normal in caliber. No pericardial effusion or thickening. MEDIASTINUM: No enlarged thoracic lymph nodes. Calcified lymph nodes indicates evidence of prior granulomatous infection, such as histoplasmosis or tuberculosis OTHER SIGNIFICANT FINDINGS: Degenerative changes are seen. IMPRESSION: LungRADS category: 2 LungRADS modifier: None Recommendations: Continue annual screening with LDCT in 12 months. Other actionable findings: Reference: [employer]. Lung CT Screening Reporting and Data System (Lung-RADS). Available at: http://www.acr.org/Quality- Safety/Resources/LungRADS Manager Target: ARIA Transcribe Date/Time: Apr 03 2025 3:04P Dictated by : KENNY MORLEY MD This examination was interpreted and the report reviewed and electronically signed by: KENNY MORLEY MD on Apr 03 2025 3:09PM EST [id number] Normal [facility] JENNIFFER SCREENING W TOMOon 03-31 JENNIFFER SCREENING W MARCELLA * * *Final Report* * * DATE OF EXAM: Mar 31 2025 9:13AM [facility] [id number] - JENNIFFER SCREENING W MARCELLA / PROCEDURE REASON: Encounter for screening mammogram for breast cancer * * * * Physician Interpretation * * * * RESULT: [address] [address] [place] [address] #[id number] - JENNIFFER SCREENING W MARCELLA HISTORY: 64 year-old patient presents for screening. Patient is asymptomatic in both breasts. Patient states no personal history of breast cancer. COMPARISON STUDIES: The present examination has been compared to prior imaging studies dated 04/17/2020 (mammogram), 05/03/2020 (mammogram), 01/16/2021 (mammogram), 10/10/2022 (mammogram) and 01/09/2024 (mammogram). MAMMOGRAM TECHNIQUE: The study was acquired using full field digital technology and interpreted from soft copy. Digital Breast Tomosynthesis (DBT) images were obtained and used to assist in the interpretation of this examination. Computer-aided detection was utilized by the radiologist in the interpretation of this examination. MAMMOGRAM FINDINGS: The breasts are almost entirely fatty. Stable postoperative changes in the right breast. No significant masses, calcifications, or other findings in either breast. There has been no significant interval change. No suspicious masses, calcifications or other abnormalities are seen in either breast. IMPRESSION: There is no mammographic evidence of malignancy. Routine screening mammogram is recommended. Annual mammogram will be due in 1 year. BI-RADS Category 2: Benign RISK: Based on the Tyrer-Cuzick (TC) risk assessment model, this patient has a 2.7% lifetime risk of developing breast cancer, meaning they are at average risk for developing breast cancer. However, this is only an estimate based on available history provided on the patient's questionnaire. We encourage all patients to talk with their providers about these results, further recommendations for managing breast health, and appropriate supplemental screening options if the patient has dense breast tissue. Interpreting Radiologist: Daisy Young M.D. Resident/Fellow: Je Roman D.O. Electronically signed on: 04/02/2025 Manager Target: CAILIN Transcribe Date/Time: Mar 31 2025 8:57A Dictated by: DAISY YOUNG MD This examination was interpreted and the report reviewed and electronically signed by: DAISY YOUNG MD on Apr 02 2025 1:40PM EST [id number] Normal [facility] LUNG DIFFUSION CAPACITY (DON O)on 03-30-2025 LUNG DIFFUSION CAPACITY (DLCO) [facility] [address] 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 No contraindications or sensitivities were noted. Meds taken: Symbicort 1.5 hours before testing. Current ATS/ERS acceptability and repeatability standards for DLCO met with 2 acceptable maneuvers. DLCO is hemoglobin corrected. Hemoglobin obtained from [facility] on 03/16/25. Current ATS/ERS acceptability and repeatability standards for spirometry met. Start of test and EOFE criteria met. IMPRESSION: Spirometry indicates no obstruction. The reduced FVC could indicate restriction, recommend lung volumes for definitive determination. The diffusion capacity (corrected for hemoglobin) is normal. Electronically Signed On 03-31-2025 12:18:48 EDT by Bud Schultz MD ID: [id number] Name: SANTY RAZA Race: White Ht: 64.76 in Wt: 319.00 lbs Age: 64 Gender: Female : 1960 Dx: Mucopurulent chronic bronchitis Smoking Hx: Non-smoker Doctor: DELORIS CHAVEZ Test Date: 03/30/2025 Site: [facility] Tech: Sarika Frederick PRE-BRONCH POST-BRONCH Mendez LLN Pred ULN %Pred ZScore Mendez %Pred %Chg ZScore SPIROMETRY FVC 2.24 2.16 3.00 3.86 74 -1.49 FEV1 1.63 1.68 2.37 3.01 68 -1.77 FEV1/FVC 0.73 0.67 0.79 0.89 91 -0.92 FEFMax 4.96 4.47 6.22 7.98 79 -1.19 FEF50 1.76 1.72 3.33 4.93 52 -1.60 FIF50 3.97 FEF50/FIF50 0.44 90-100 FIVC 1.48 TYG58-39 1.07 1.08 2.17 3.66 49 -1.67 ExpiredTime 7.47 TimeToFEFMax 0.08 RAJEEV 0.04 VolExtrap% 2 LUNG DIFFUSION DLCOunc 16.54 15.15 19.87 25.64 83 -1.13 DLCOStdPB 16.29 15.15 19.87 25.64 81 -1.22 DLCORefHb 16.29 21.00 77 VA 3.36 3.85 4.77 5.79 70 -2.58 Kco 4.84 3.20 4.16 5.25 116 1.05 Hgb 15.40 12-18 Comments: Medications and Allergies were reviewed for possible drug interactions per policy. No contraindications or sensitivities were noted. Meds taken: Symbicort 1.5 hours before testing. Current ATS/ERS acceptability and repeatability standards for DLCO met with 2 acceptable maneuvers. DLCO is hemoglobin corrected. Hemoglobin obtained from [facility] on 03/16/25. Current ATS/ERS acceptability and repeatability standards for spirometry met. Start of test and EOFE criteria met. 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 No contraindications or sensitivities were noted. Meds taken: Symbicort 1.5 hours before testing. Current ATS/ERS acceptability and repeatability standards for DLCO met with 2 acceptable maneuvers. DLCO is hemoglobin corrected. Hemoglobin obtained from [facility] on 03/16/25. Current ATS/ERS acceptability and repeatability standards for spirometry met. Start of test and EOFE criteria met. IMPRESSION: Spirometry indicates no obstruction. The reduced FVC could indicate restriction, recommend lung volumes for definitive determination. The diffusion capacity (corrected for hemoglobin) is normal. Electronically Signed On 03-31-2025 12:18:48 EDT by Bud Schultz MD ID: [id number] Name: SANTY RAZA Race: White Ht: 64.76 in Wt: 319.00 lbs Age: 64 Gender: Female : 1960 Dx: Mucopurulent chronic bronchitis Smoking Hx: Non-smoker Doctor: DELORIS CHAVEZ Test Date: 03/30/2025 Site: Tech: Sarika Frederick PRE-BRONCH POST-BRONCH Mendez LLN Pred ULN %Pred ZScore Mendez %Pred %Chg ZScore SPIROMETRY FVC 2.24 2.16 3.00 3.86 74 -1.49 FEV1 1.63 1.68 2.37 3.01 68 -1.77 FEV1/FVC 0.73 0.67 0.79 0.89 91 -0.92 FEFMax 4.96 4.47 6.22 7.98 79 -1.19 FEF50 1.76 1.72 3.33 4.93 52 -1.60 FIF50 3.97 FEF50/FIF50 0.44 90-100 FIVC 1.48 QPX45-57 1.07 1.08 2.17 3.66 49 -1.67 ExpiredTime 7.47 TimeToFEFMax 0.08 RAJEEV 0.04 VolExtrap% 2 LUNG DIFFUSION DLCOunc 16.54 15.15 19.87 25.64 83 -1.13 DLCOStdPB 16.29 15.15 19.87 25.64 81 -1.22 DLCORefHb 16.29 21.00 77 VA 3.36 3.85 4.77 5.79 70 -2.58 Kco 4.84 3.20 4.16 5.25 116 1.05 Hgb 15.40 12-18 Comments: Medications and Allergies were reviewed for possible drug interactions per policy. No contraindications or sensitivities were noted. Meds taken: Symbicort 1.5 hours before testing. Current ATS/ERS acceptability and repeatability standards for DLCO met with 2 acceptable maneuvers. DLCO is hemoglobin corrected. Hemoglobin obtained from [facility] on 03/16/25. Current ATS/ERS acceptability and repeatability standards for spirometry met. Start of test and EOFE criteria met. FVC_PRE (L) : 2.24 L FVC_PRED (L) : 3.00 L FVC_LLN (L) : 2.16 L FVC_ULN (L) : 3.86 L FEV1_PRE (L) : 1.63 L FEV1_PRED (L) : 2.37 L FEV1_LLN (L) : 1.68 L FEV1_ULN (L) : 3.01 L FEV1/FVC_PRE (%) : 73 % FEV1/FVC_PRED (%) : 79 % FEV1/FVC_LLN (%) : 67 % BAF24_QDN (L/S) : 4.09 L/S AVV84_WRC (L/S) : 0.31 L/S EZJ94_JDAH (L/S) : 0.59 L/S IEE36_HSV (L/S) : 0.23 L/S YEL57_LRW (L/S) : 1.44 L/S QJR30-27%_PRE (L/S) : 1.07 L/S DAJ92-50%_PRED (L/S) : 2.17 L/S FUT13-30%_LLN (L/S) : 1.08 L/S PEF_PRE (L/S) : 4.96 L/S PEFMAX_LLN (L/S) : 4.47 L/S PEFMAX_ULN (L/S) : 7.98 L/S SVC_PRED (L) : 3.00 L/S SVC_LLN (L) : 2.16 L/S SVC_ULN (L/S) : 3.86 L/S IC_PRED (L) : 2.00 L/S ERV_PREDICTED (L) : 1.00 L/S DLCO (ML/MIN/MMHG) : 16.54 ml/min/mmHg DLCO_PRED (ML/MIN/MMHG) : 19.87 ml/min/mmHg DLCO_LLN(ML/MIN/MMHG) : 15.15 ml/min/mmHg DLCO_ULN (ML/MIN/MMHG) : 25.64 ml/min/mmHg FET_PRE (S) : 7.47 S VA (L) : 3.36 L VA_PRD (L) : 4.77 L DLCO/VA (ML/MIN/MMHG/L) : 0.05 ml/min/mmHg/L DLCO_VA_PRED (L) : 0.04 ml/min/mmHg/L DLCOCOR (ML/MIN/MMHG) : 16.29 ml/min/mmHg DLCOCOR_PRED (ML/MIN/MMHG) : 21.00 ml/min/mmHg DLCO/VACOR (ML/MIN/MMHG/L) : 0.05 ml/min/mmHg/L Normal [facility] CNOVon 03-28-2025 CNOV Office Visit (FAMGuerlineWS ) SANTY RAZA ([id number]) 1960 F Date Time Provider Department 03/28/25 10:40 AM DELORIS CHAVEZ During your visit today, we recorded the following information about you: Pulse Respiration Blood pressure 75/minute 16/minute 128/82 Deloris Chavez APRN.CNP 03/28/2025 11:24 AM Signed Stop the prozac. Start the desvenlafaxine (prestiq). Schedule the pulmonary function tests. Recheck in 1 month. Deloris Chavez APRN.CNP 03/28/2025 8:27 PM Signed This is a 64 year old female who presents today with: The patient is a 64-year-old female with COPD and depression, presenting for evaluation of persistent depressive symptoms and adjustment of antidepressant therapy. HISTORY OF PRESENT ILLNESS: Santy is a 64-year-old female with a history of anxiety, depression, and COPD, presenting for evaluation of anxiety and depression, chest wall pain, and follow-up for COPD. Anxiety and Depression: - Currently taking Prozac; reports it is not effective. - Describes persistent anxiety with racing thoughts and mood fluctuations. - Spends increased time alone in her room; daughter has expressed concern. - Recent stressors include conflicts with ex-, who has dementia. - Previously on Effexor until 02/07; discontinued due to perceived lack of efficacy. Chest Wall Pain: - Persistent pain in the chest wall, exacerbated by palpation. - Denies known trauma or injury. - Occasionally takes ibuprofen for pain relief. - Reports concurrent back pain, managed with ice application. - Next appointment with back specialist, Dr. Doty, is next month. COPD: - Uses oxygen concentrator at night and supplemental oxygen during activity. - Dyspnea improves with rest. - Quit smoking 5 months ago; significant reduction in cough. - Uses Atrovent and Symbicort inhalers; albuterol inhaler used once daily or every other day. PAST MEDICAL HISTORY: PAST MEDICAL HISTORY Diagnosis Date Allergic rhinitis, cause unspecified BMI 45.0-49.9, adult ([facility]) 08/27/2022 Essential hypertension, benign Hypothyroidism 09/26/2015 Mixed conductive and sensorineural hearing loss TRINI on CPAP Other anxiety states Perforated tympanic membrane 03/29/2011 S/P repair of ventral hernia 09/06/2022 Synovitis and tenosynovitis, unspecified Tobacco abuse 03/23/2012 PAST SURGICAL HISTORY Procedure Laterality Date COLONOSCOPY SCRN NOT HIGH RISK 09/13/2020 EGD 10/25/2020 L'SCOPE DX W/WO BRUSHINGS/WASHINGS 09/05/2022 Dr. Guadarrama LIG/TRNSXJ FLP TUBE ABDL/VAG APPR UNI/BI Tubal ligation LX REPAIR RECURRENT VENTRAL HERNIA 09/05/2022 open, w/ mesh. Dr. Guadarrama MYRINGOTOMY ASPIRAND/EUSTACHIAN TUBE NFLTJ ANES Myringotomy/tubes NEUROPLASTY AND/TRANSPOS MEDIAN NRV CARPAL TUNNE Bilateral 01/15/2019 Bilateral carpal tunnel release REDUCTION OF LARGE BREAST 04/23/2016 STEREOTACT BREAST BX EA LESION PC 09/30/2018 left stereotactic breast biopsy w/vacuum assisted core needle biopsy, specimen radiograph and marker placement ALLERGIES Doxycycline Monohydrate, Hctz [Amiloride-Hydrochlorothiaz rick], Levaquin [Levofloxacin], Meloxicam, and Peanuts MEDICATIONS Current Outpatient Medications Medication Sig desvenlafaxine ER (PRISTIQ) 50 mg 24 hr tablet Take 1 tablet by mouth once daily. ALPRAZolam (XANAX) 1 mg tablet Take 1 tablet by mouth two times a day as needed for up to 30 days. ofloxacin (FLOXIN) 0.3 % otic solution Use 5 drops in both ears once daily. Nebulizer Accessories misc 1 each as directed. Nebulizer tubing and mouth piece. buPROPion XL (WELLBUTRIN XL) 300 mg 24 hr tablet Take 1 tablet by mouth once daily. lisinopril (ZESTRIL) 40 mg tablet Take 1 tablet by mouth once daily. amLODIPine (NORVASC) 5 mg tablet Take 1 tablet by mouth once daily. levothyroxine (LEVOXYL) 200 mcg tablet Take 1 tablet by mouth once daily. Take on empty stomach. For thyroid lansoprazole (PREVACID) 15 mg capsule Take 1 capsule by mouth once daily. atorvastatin (LIPITOR) 10 mg tablet Take 1 tablet by mouth daily at bedtime. For cholesterol. amitriptyline (ELAVIL) 25 mg tablet Take 1 tablet by mouth daily at bedtime. albuterol (PROVENTIL) 2.5 mg /3 mL (0.083 %) nebulizer solution Use 3 mL via nebulizer every 6 hours as needed for wheezing/shortness of breath. benzonatate (TESSALON PERLES) 100 mg capsule Take 1-2 capsules by mouth three times a day as needed for cough. budesonide-formoterol (SYMBICORT) 160-4.5 mcg/actuation inhaler Inhale 2 puffs as instructed two times a day. oxygen-air delivery systems (WALKABOUT MINI OXYGEN SYSTEM [facility]) furosemide (LASIX) 20 mg tablet Take 1 tablet by mouth once daily. If you have increased swelling, okay to increase to 2 tablets daily for 2-3 days. Do not do more than once weekly. HYDROcodone-acetaminophen (NORCO) 5-325 mg per tablet Take 1 tab (more content not included)... Normal [facility] CBC W Auto Differential pane l (Bld)on 03-16-2025 Basophils (Bld) [#/Vol] 0.06 10*3/uL Normal <0.11 [facility] Comment on above: Order Comment: Speci men Type: BLOOD SPECIMENOrdering Facility: [facility] Address: [address] [place] [address] Performed By: #### 5 7021-8 ####[facility] LABCLIA [id number] [facility] [place] [id number] [place] Basophils/100 WBC (Bld) 0.8 % Normal [facility] Comment on above: Order Comment: Speci men Type: BLOOD SPECIMENOrdering Facility: [facility] Address: [address] [place] [address] Performed By: #### 5 7021-8 ####[facility] LABCLIA [id number] [place] [address] [place] Differential cell count method Nom (Bld) Auto Normal [facility] Comment on above: Order Comment: Speci men Type: BLOOD SPECIMENOrdering Facility: [facility] Address: [address] [place] [address] Performed By: #### 5 7021-8 ####[facility] LABCLIA [id number] [place] [address] [place] Eosinophils (Bld) [#/Vol] 10*3/uL Normal <0.46 [facility] Comment on above: Order Comment: Speci men Type: BLOOD SPECIMENOrdering Facility: [facility] Address: [address] [place] [address] Performed By: #### 5 7021-8 ####[facility] LABCLIA [id number] [place] [address] [place] Eosinophils/100 WBC (Bld) 0.0 % Normal [facility] Comment on above: Order Comment: Speci men Type: BLOOD SPECIMENOrdering Facility: [facility] Address: [address] [place] [address] Performed By: #### 5 7021-8 ####[facility] LABCLIA [id number] [place] [address] [place] Erythrocyte distribution width (RBC) [Ratio] 13.6 % Normal 11.5-15.0 [facility] Comment on above: Order Comment: Speci men Type: BLOOD SPECIMENOrdering Facility: [facility] Address: [address] [place] [address] Performed By: #### 5 7021-8 ####[facility] LABIA [id number] [place] [address] [place] Hematocrit (Bld) [Volume fraction] 45.6 % Normal 36.0-46.0 [facility] Comment on above: Order Comment: Speci men Type: BLOOD SPECIMENOrdering Facility: [facility] Address: [address] [place] [address] Performed By: #### 5 7021-8 ####[facility] LABIA [id number] [place] [address] [place] Hemoglobin (Bld) [Mass/Vol] 15.4 g/dL Normal 11.5-15.5 [facility] Comment on above: Order Comment: Speci men Type: BLOOD SPECIMENOrdering Facility: [facility] Address: [address] [place] [address] Performed By: #### 5 7021-8 ####[facility] LABIA [id number] [place] [address] [place] Immature granulocytes (Bld) [#/Vol] 0.04 10*3/uL Normal <0.10 [facility] Comment on above: Order Comment: Speci men Type: BLOOD SPECIMENOrdering Facility: [facility] Address: [address] [place] [address] Performed By: #### 5 7021-8 ####[facility] LABIA [id number] [place] [address] [place] Immature granulocytes/100 WBC (Bld) 0.5 % Normal [facility] Comment on above: Order Comment: Speci men Type: BLOOD SPECIMENOrdering Facility: [facility] Address: [address] [place] [address] Performed By: #### 5 7021-8 ####[facility] LABCLIA [id number] [place] [address] [place] Lymphocytes (Bld) [#/Vol] 2.07 10*3/uL Normal 1.00-4.00 [facility] Comment on above: Order Comment: Speci men Type: BLOOD SPECIMENOrdering Facility: [facility] Address: [address] [place] [address] Performed By: #### 5 7021-8 ####[facility] LABCLIA [id number] [place] [address] [place] Lymphocytes/100 WBC (Bld) 26.2 % Normal [facility] Comment on above: Order Comment: Speci men Type: BLOOD SPECIMENOrdering Facility: [facility] Address: [address] [place] [address] Performed By: #### 5 7021-8 ####[facility] LABCLIA [id number] [place] [address] [place] MCH (RBC) [Entitic mass] 30.9 pg Normal 26.0-34.0 [facility] Comment on above: Order Comment: Speci men Type: BLOOD SPECIMENOrdering Facility: [facility] Address: [address] [place] [address] Performed By: #### 5 7021-8 ####[facility] LABCLIA [id number] [place] [address] [place] MCHC (RBC) [Mass/Vol] 33.8 g/dL Normal 30.5-36.0 [facility] Comment on above: Order Comment: Speci men Type: BLOOD SPECIMENOrdering Facility: [facility] Address: [address] [place] [address] Performed By: #### 5 7021-8 ####[facility] LABCLIA [id number] [address], [place] [address] [place] MCV (RBC) [Entitic vol] 91.6 fL Normal 80.0-100.0 [facility] Comment on above: Order Comment: Speci men Type: BLOOD SPECIMENOrdering Facility: [facility] Address: [address] [place] [address] Performed By: #### 5 7021-8 ####[facility] LABCLIA [id number] [address], [place] [address] [place] Monocytes (Bld) [#/Vol] 0.57 10*3/uL Normal <0.87 [facility] Comment on above: Order Comment: Speci men Type: BLOOD SPECIMENOrdering Facility: [facility] Address: [address] [place] [address] Performed By: #### 5 7021-8 ####[facility] LABCLIA [id number] [address], [place] [address] [place] Monocytes/100 WBC (Bld) 7.2 % Normal [facility] Comment on above: Order Comment: Speci men Type: BLOOD SPECIMENOrdering Facility: [facility] Address: [address] [place] [address] Performed By: #### 5 7021-8 ####[facility] LABCLIA [id number] [address], [place] [address] [place] Neutrophils (Bld) [#/Vol] 5.15 10*3/uL Normal 1.45-7.50 [facility] Comment on above: Order Comment: Speci men Type: BLOOD SPECIMENOrdering Facility: [facility] Address: [address] [place] [address] Performed By: #### 5 7021-8 ####[facility] LABCLIA [id number] [address], [facility]95 [place] Neutrophils/100 WBC (Bld) 65.3 % Normal [facility] Comment on above: Order Comment: Speci men Type: BLOOD SPECIMENOrdering Facility: [facility] Address: [address] [place] [address] Performed By: #### 5 7021-8 ####[facility] LABCLIA [id number] [place] [address] [place] Nucleated RBC (Bld) [#/Vol] 10*3/uL Normal <0.01 [facility] Comment on above: Order Comment: Speci men Type: BLOOD SPECIMENOrdering Facility: [facility] Address: [address] [place] [address] Performed By: #### 5 7021-8 ####[facility] LABCLIA [id number] [place] [address] [place] Nucleated RBC/100 WBC (Bld) [Ratio] 0.0 /100 WBC Normal [facility] Comment on above: Order Comment: Speci men Type: BLOOD SPECIMENOrdering Facility: [facility] Address: [address] [place] [address] Performed By: #### 5 7021-8 ####[facility] LABCLIA [id number] [place] [address] [place] Platelet mean volume (Bld) [Entitic vol] 12.1 fL Normal 9.0-12.7 [facility] Comment on above: Order Comment: Speci men Type: BLOOD SPECIMENOrdering Facility: [facility] Address: [address] [place] [address] Performed By: #### 5 7021-8 ####[facility] LABCLIA [id number] [place] [address] [place] Platelets (Bld) [#/Vol] 210 10*3/uL Normal 150-400 [facility] Comment on above: Order Comment: Speci men Type: BLOOD SPECIMENOrdering Facility: [facility] Address: [address] [place] [address] Performed By: #### 5 7021-8 ####[facility] LABIA [id number] [place] [id number] [place] RBC (Bld) [#/Vol] 4.98 10*6/uL Normal 3.90-5.20 [facility] Comment on above: Order Comment: Speci men Type: BLOOD SPECIMENOrdering Facility: [facility] Address: [address] [place] [address] Performed By: #### 5 7021-8 ####[facility] LABIA [id number] [place] [id number] [place] WBC (Bld) [#/Vol] 7.89 10*3/uL Normal 3.70-11.00 [facility] Comment on above: Order Comment: Speci men Type: BLOOD SPECIMENOrdering Facility: [facility] Address: [address] [place] [address] Performed By: #### 5 7021-8 ####[facility] LABIA [id number] [place] [id number] [place] Comprehensive metabolic 2000 panelon 03-16-2025 Albumin [Mass/Vol] 4.1 g/dL Normal 3.9-4.9 [facility] Comment on above: Order Comment: Speci men Type: BLOOD SPECIMENOrdering Facility: [facility] Address: [address] [place] [address] Performed By: #### 3 024-7, 87972-6 ####[facility] LABIA [id number] [place] [id number] [place] ALP [Catalytic activity/Vol] 99 U/L Normal 34-123 [facility] Comment on above: Order Comment: Speci men Type: BLOOD SPECIMENOrdering Facility: [facility] Address: [address] [place] [address] Performed By: #### 3 024-7, ####[facility] LABCLIA [id number] [facility] [id number] [address] [place] ALT [Catalytic activity/Vol] 27 U/L Normal 7-38 [facility] Comment on above: Order Comment: Speci men Type: BLOOD SPECIMENOrdering Facility: [facility] Address: [address] [place] [address] Performed By: #### 3 024-7, ####[facility] LABCLIA [id number] [facility] [address] [place] [address] [place] Anion gap [Moles/Vol] 13 mmol/L Normal 8-15 [facility] Comment on above: Order Comment: Speci men Type: BLOOD SPECIMENOrdering Facility: [facility] Address: [address] [place] [address] Performed By: #### 3 024-7, ####[facility] LABCLIA [id number] [address], [facility]95 [place] AST [Catalytic activity/Vol] 20 U/L Normal 13-35 [facility] Comment on above: Order Comment: Speci men Type: BLOOD SPECIMENOrdering Facility: [facility] Address: [address] [place] [address] Performed By: #### 3 024-7, 38168-8 ####[facility] LABCLIA [id number] [address], [facility]95 [place] Bilirubin [Mass/Vol] 0.5 mg/dL Normal 0.2-1.3 [facility] Comment on above: Order Comment: Speci men Type: BLOOD SPECIMENOrdering Facility: [facility] Address: [address] [place] [address] Performed By: #### 3 024-7, 82964-5 ####[facility] LABCLIA [id number] [place] [id number] [place] Calcium [Mass/Vol] 9.8 mg/dL Normal 8.5-10.2 [facility] Comment on above: Order Comment: Speci men Type: BLOOD SPECIMENOrdering Facility: [facility] Address: [address] [place] [address] Performed By: #### 3 024-7, ####[facility] LABCLIA [id number] [facility] [place] [id number] [place] Chloride [Moles/Vol] 100 mmol/L Normal 98-107 [facility] Comment on above: Order Comment: Speci men Type: BLOOD SPECIMENOrdering Facility: [facility] Address: [address] [place] [address] Performed By: #### 3 024-7, ####[facility] LABCLIA [id number] [place] [address] [place] CO2 [Moles/Vol] 26 mmol/L Normal 22-30 [facility] Comment on above: Order Comment: Speci men Type: BLOOD SPECIMENOrdering Facility: [facility] Address: [address] [place] [address] Performed By: #### 3 024-7, ####[facility] LABCLIA [id number] [place] [address] [place] Creatinine [Mass/Vol] 0.91 mg/dL Normal 0.58-0.96 [facility] Comment on above: Order Comment: Speci men Type: BLOOD SPECIMENOrdering Facility: [facility] Address: [address] [place], [place] [address] Performed By: #### 3 024-7, 22755-6 ####[facility] LABCLIA [id number] [place] [id number] [place] eGFRcr SerPlBld CKD-EPI 2020 71 mL/min/1.73m??? Normal >=60 [facility] Comment on above: Order Comment: Speci men Type: BLOOD SPECIMENOrdering Facility: [facility] Address: [address] [place] [address] Result Comment: Alem mated Glomerular Filtration Rate (eGFR) is calculated using the 2020 CKD-EPI creatinine equation. This equation utilizes serum creatinine, sex, and age as parameters. The creatinine assay has traceable calibration to isotope dilution-mass spectrometry. Refer to KDIGO guidelines for clinical interpretation. In patients with unstable renal function, e.g. those with acute kidney injury, the eGFR may not accurately reflect actual GFR. Performed By: #### 3 024-7, 73535-1 ####[facility] LABIA [id number] [place] [id number] [place] Glucose [Mass/Vol] 112 mg/dL High 74-99 [facility] Comment on above: Order Comment: Pau orantes Type: BLOOD SPECIMENOrdering Facility: [facility] Address: [address] [place] [address] Result Comment: The [place] [employer] (ADA) provides guidance for cutoff values for fasting glucose and random glucose. The ADA defines fasting as no caloric intake for at least 8 hours. Fasting plasma glucose results between 100 to 125 mg/dL indicate increased risk for diabetes (prediabetes). Fasting plasma glucose results greater than or equal to 126 mg/dL meet the criteria for diagnosis of diabetes. In the absence of unequivocal hyperglycemia, results should be confirmed by repeat testing. In a patient with classic symptoms of hyperglycemia or hyperglycemic crisis, random plasma glucose results greater than or equal to 200 mg/dL meet the criteria for diagnosis of diabetes. Reference: Standards of Medical Care in Diabetes 2016, [place] [employer]. Diabetes Care. 2016.39(Suppl 1). Performed By: #### 3 024-7, 23956-4 ####[facility] LABIA [id number] [place] [id number] [place] Potassium [Moles/Vol] 4.9 mmol/L Normal 3.7-5.1 [facility] Comment on above: Order Comment: Pau orantes Type: BLOOD SPECIMENOrdering Facility: [facility] Address: [address] [place] [address] Performed By: #### 3 024-7, ####[facility] LABCLIA [id number] [place] [id number] [place] Protein [Mass/Vol] 7.8 g/dL Normal 6.3-8.0 [facility] Comment on above: Order Comment: Speci men Type: BLOOD SPECIMENOrdering Facility: [facility] Address: [address] [place] [address] Performed By: #### 3 024-7, ####[facility] LABCLIA [id number] [place] [address] [place] Sodium [Moles/Vol] 139 mmol/L Normal 136-144 [facility] Comment on above: Order Comment: Speci men Type: BLOOD SPECIMENOrdering Facility: [facility] Address: [address] [place] [address] Performed By: #### 3 024-7, ####[facility] LABCLIA [id number] [place] [address] [place] Urea nitrogen [Mass/Vol] 12 mg/dL Normal 7-21 [facility] Comment on above: Order Comment: Speci men Type: BLOOD SPECIMENOrdering Facility: [facility] Address: [address] [place] [address] Performed By: #### 3 024-7, 15697-1 ####[facility] LABCLIA [id number] [place] [id number] [place] T4 Free SerPl-mCncon 10-01-2 025 Free T4 [Mass/Vol] 1.4 ng/dL Normal 0.9-1.7 [facility] Comment on above: Order Comment: Speci men Type: BLOOD SPECIMENOrdering Facility: [facility] Address: [address] [place] [address] Performed By: #### 3 024-7, 69847-6 ####[facility] LABCLIA [id number] [place] [address] [place] CBC W Auto Differential pane l (Bld)on 03-09-2025 Basophils (Bld) [#/Vol] 0.06 10*3/uL Normal <0.11 [facility] Comment on above: Order Comment: Speci men Type: BLOOD SPECIMENOrdering Facility: [facility] Address: [address] [place] [address] Performed By: #### 5 7021-8 ####[facility] LABCLIA [id number] [address], [place] [address] [place] Basophils/100 WBC (Bld) 0.7 % Normal [facility] Comment on above: Order Comment: Speci men Type: BLOOD SPECIMENOrdering Facility: [facility] Address: [address] [place] [address] Performed By: #### 5 7021-8 ####[facility] LABCLIA [id number] [place] [address] [place] Differential cell count method Nom (Bld) Auto Normal [facility] Comment on above: Order Comment: Speci men Type: BLOOD SPECIMENOrdering Facility: [facility] Address: [address] [place] [address] Performed By: #### 5 7021-8 ####[facility] LABCLIA [id number] [place] [address] [place] Eosinophils (Bld) [#/Vol] 10*3/uL Normal <0.46 [facility] Comment on above: Order Comment: Speci men Type: BLOOD SPECIMENOrdering Facility: [facility] Address: [address] [place] [address] Performed By: #### 5 7021-8 ####[facility] LABCLIA [id number] [place] [address] [place] Eosinophils/100 WBC (Bld) 0.0 % Normal [facility] Comment on above: Order Comment: Speci men Type: BLOOD SPECIMENOrdering Facility: [facility] Address: [address] [place] [address] Performed By: #### 5 7021-8 ####[facility] LABCLIA [id number] [place] [address] [place] Erythrocyte distribution width (RBC) [Ratio] 13.4 % Normal 11.5-15.0 [facility] Comment on above: Order Comment: Speci men Type: BLOOD SPECIMENOrdering Facility: [facility] Address: [address] [place] [address] Performed By: #### 5 7021-8 ####[facility] LABCLIA [id number] [place] [address] [place] Hematocrit (Bld) [Volume fraction] 43.8 % Normal 36.0-46.0 [facility] Comment on above: Order Comment: Speci men Type: BLOOD SPECIMENOrdering Facility: [facility] Address: [address] [place] [address] Performed By: #### 5 7021-8 ####[facility] LABCLIA [id number] [place] [address] [place] Hemoglobin (Bld) [Mass/Vol] 14.9 g/dL Normal 11.5-15.5 [facility] Comment on above: Order Comment: Speci men Type: BLOOD SPECIMENOrdering Facility: [facility] Address: [address] [place] [address] Performed By: #### 5 7021-8 ####[facility] LABCLIA [id number] [place] [id number] [place] Immature granulocytes (Bld) [#/Vol] 0.05 10*3/uL Normal <0.10 [facility] Comment on above: Order Comment: Speci men Type: BLOOD SPECIMENOrdering Facility: [facility] Address: [address] [place] [address] Performed By: #### 5 7021-8 ####[facility] LABCLIA [id number] [place] [address] [place] Immature granulocytes/100 WBC (Bld) 0.6 % Normal [facility] Comment on above: Order Comment: Speci men Type: BLOOD SPECIMENOrdering Facility: [facility] Address: [address] [place] [address] Performed By: #### 5 7021-8 ####[facility] LABCLIA [id number] [place] [address] [place] Lymphocytes (Bld) [#/Vol] 1.87 10*3/uL Normal 1.00-4.00 [facility] Comment on above: Order Comment: Speci men Type: BLOOD SPECIMENOrdering Facility: [facility] Address: [address] [place] [address] Performed By: #### 5 7021-8 ####[facility] LABCLIA [id number] [place] [address] [place] Lymphocytes/100 WBC (Bld) 23.0 % Normal [facility] Comment on above: Order Comment: Speci men Type: BLOOD SPECIMENOrdering Facility: [facility] Address: [address] [place] [address] Performed By: #### 5 7021-8 ####[facility] LABIA [id number] [place] [address] [place] MCH (RBC) [Entitic mass] 31.3 pg Normal 26.0-34.0 [facility] Comment on above: Order Comment: Speci men Type: BLOOD SPECIMENOrdering Facility: [facility] Address: [address] [place] [address] Performed By: #### 5 7021-8 ####[facility] LABCLIA [id number] [place] [address] [place] MCHC (RBC) [Mass/Vol] 34.0 g/dL Normal 30.5-36.0 [facility] Comment on above: Order Comment: Speci men Type: BLOOD SPECIMENOrdering Facility: [facility] Address: [address] [place] [address] Performed By: #### 5 7021-8 ####[facility] LABIA [id number] [place] [address] [place] MCV (RBC) [Entitic vol] 92.0 fL Normal 80.0-100.0 [facility] Comment on above: Order Comment: Speci men Type: BLOOD SPECIMENOrdering Facility: [facility] Address: [address] [place] [address] Performed By: #### 5 7021-8 ####[facility] LABIA [id number] [place] [address] [place] Monocytes (Bld) [#/Vol] 0.47 10*3/uL Normal <0.87 [facility] Comment on above: Order Comment: Speci men Type: BLOOD SPECIMENOrdering Facility: [facility] Address: [address] [place] [address] Performed By: #### 5 7021-8 ####[facility] LABIA [id number] [place] [address] [place] Monocytes/100 WBC (Bld) 5.8 % Normal [facility] Comment on above: Order Comment: Speci men Type: BLOOD SPECIMENOrdering Facility: [facility] Address: [address] [place] [address] Performed By: #### 5 7021-8 ####[facility] LABIA [id number] [place] [address] [place] Neutrophils (Bld) [#/Vol] 5.67 10*3/uL Normal 1.45-7.50 [facility] Comment on above: Order Comment: Speci men Type: BLOOD SPECIMENOrdering Facility: [facility] Address: [address] [place] [address] Performed By: #### 5 7021-8 ####[facility] LABCLIA [id number] [place] [address] [place] Neutrophils/100 WBC (Bld) 69.9 % Normal [facility] Comment on above: Order Comment: Speci men Type: BLOOD SPECIMENOrdering Facility: [facility] Address: [address] [place] [address] Performed By: #### 5 7021-8 ####[facility] LABCLIA [id number] [place] [address] [place] Nucleated RBC (Bld) [#/Vol] 10*3/uL Normal <0.01 [facility] Comment on above: Order Comment: Speci men Type: BLOOD SPECIMENOrdering Facility: [facility] Address: [address] [place] [address] Performed By: #### 5 7021-8 ####[facility] LABIA [id number] [place] [address] [place] Nucleated RBC/100 WBC (Bld) [Ratio] 0.0 /100 WBC Normal [facility] Comment on above: Order Comment: Speci men Type: BLOOD SPECIMENOrdering Facility: [facility] Address: [address] [place] [address] Performed By: #### 5 7021-8 ####[facility] LABIA [id number] [place] [address] [place] Platelet mean volume (Bld) [Entitic vol] 11.5 fL Normal 9.0-12.7 [facility] Comment on above: Order Comment: Speci men Type: BLOOD SPECIMENOrdering Facility: [facility] Address: [address] [place] [address] Performed By: #### 5 7021-8 ####[facility] LABCLIA [id number] [place] [id number] [place] Platelets (Bld) [#/Vol] 243 10*3/uL Normal 150-400 [facility] Comment on above: Order Comment: Speci men Type: BLOOD SPECIMENOrdering Facility: [facility] Address: [address] [place] [address] Performed By: #### 5 7021-8 ####[facility] LABCLIA [id number] [place] [address] [place] RBC (Bld) [#/Vol] 4.76 10*6/uL Normal 3.90-5.20 [facility] Comment on above: Order Comment: Speci men Type: BLOOD SPECIMENOrdering Facility: [facility] Address: [address] [place] [address] Performed By: #### 5 7021-8 ####[facility] LABIA [id number] [place] [address] [place] WBC (Bld) [#/Vol] 8.12 10*3/uL Normal 3.70-11.00 [facility] Comment on above: Order Comment: Speci men Type: BLOOD SPECIMENOrdering Facility: [facility] Address: [address] [place] [address] Performed By: #### 5 7021-8 ####[facility] LABIA [id number] [place] [address] [place] CNOVon 03-09-2025 CNOV Office Visit (MARBELLAWS ) SANTY RAZA ([id number]) 1960 F Date Time Provider Department 03/09/25 10:40 AM DELORIS CHAVEZ During your visit today, we recorded the following information about you: Temperature Pulse Respiration Blood pressure 99 degrees 94/minute 16/minute 142/90 Deloris Chavez APRN.CONTENT MANAGEMENT CONSULTANT 03/09/2025 11:11 AM Addendum Get labwork. Diarrhea: adults What is diarrhea? Diarrhea is the sudden increase in the frequency and looseness of bowel movements (BMs). Mild diarrhea is the passage of a few loose or mushy BMs. Severe diarrhea is the passage of many watery BMs. The best indicator of the severity of the diarrhea is its frequency. The main complication of diarrhea is dehydration and loss of electrolytes from the loss of too much body fluid. Symptoms of dehydration are a dry mouth, the absence of tears, infrequent urination (for example, none in 12 hours), and a darker, concentrated urine. The main goal of diarrhea treatment is to prevent dehydration. What is the cause? Diarrhea is usually caused by a viral infection of the lining of the intestines (gastroenteritis). Sometimes it is caused by bacteria or parasites. Occasionally a food allergy or drinking too much fruit juice may cause diarrhea. If you have just one or two loose bowel movements, the cause is probably something unusual you ate. A diet of nothing but clear fluids for more than 2 days may cause green, watery bowel movements (called starvation stools). How long will it last? Diarrhea usually lasts several days to a week, regardless of the type of treatment. The main goal of treatment is to prevent dehydration. You need to drink enough fluids to replace the fluids lost in the diarrhea. Don't expect a quick return to solid bowel movements. What should I eat? Increased fluids and dietary changes are the main treatment for diarrhea. Note: One loose bowel movement can mean nothing. Don't start dietary changes until you have had several loose bowel movements. Mild diarrhea (loose BMs) Follow a regular diet with a few simple changes: Eat more foods containing starch. Starchy foods are easily digested during diarrhea. Examples are cereal, breads, crackers, rice, mashed potatoes, and noodles. Drink more water. Avoid all fruit juices. Eat or drink less milk and milk products for a few days. Avoid beans or any other foods that cause loose bowel movements. Severe diarrhea: Fluids: Drink lots of fluids to prevent dehydration. Take water as the main fluid for the first 24 hours of watery diarrhea. Avoid milk and dairy products (except yogurt) as they may cause diarrhea to be worse. When inflammation occurs in the intestines, it may affect the levels of helpful bacteria which break down milk sugars. This may result in milk intolerance for a few days until the balance is restored. Avoid fruit juices, because they all make diarrhea worse. Electrolye solutions such as Gatorade or Powerade may help to replace electrolytes and ease muscle aching and cramping. Foods: You should continue to eat during episodes of diarrhea. The choice of food is important. Starchy foods are digested best. Examples of such foods are dried cereals, grains, bread, crackers, rice, noodles, mashed potatoes, carrots, applesauce and bananas. Pretzels or saltine crackers can help meet your need for sodium. On the second day of the diarrhea, if you may add some protein, soft-boiled eggs or yogurt are usually easily digested. How can I take care of myself? Common mistakes: ELIE-Aid, soda pop, or water should not be used as the only food because they contain little or no salt. Use only the fluids suggested here. The most dangerous myth is that the intestine should be put to rest. Restricting fluids can cause dehydration. There is no effective, safe drug for diarrhea. Extra fluids and diet therapy work best. Prevention: Diarrhea is very contagious. Always wash your hands after changing diapers or using the toilet. This is crucial for keeping everyone in the family from getting diarrhea. Vomiting with diarrhea: If you have vomited more than twice, follow the recommended treatment for vomiting instead of this treatment for diarrhea until your child has gone 8 hours without vomiting. When should I call my health care provider? Call IMMEDIATELY OR GO TO THE EMERGENCY ROOM if: There are signs of dehydration (no urine in more than 12 hours, very dry mouth, no tears). Any blood appears in the diarrhea. The diarrhea is severe (more than 8 BMs in the last 8 hours). The diarrhea is watery AND you vomit repeatedly. You are very weak. Call during office hours if: Mucus or pus appears in the BMs. A fever lasts more than 3 days. Mild diarrhea lasts more than 2 weeks. You have other concerns or questions. Medications: generally medications are no (more content not included)... Normal [facility] metabolic 2000 panelon 03-09-2025 Albumin [Mass/Vol] 4.2 g/dL Normal 3.9-4.9 [facility] Comment on above: Order Comment: Speci men Type: BLOOD SPECIMENOrdering Facility: [facility] Address: [address] [place] [address] Performed By: #### 2 4323-8, ####[facility] LABCLIA [id number] [facility] [id number], [place] [address] [place] ALP [Catalytic activity/Vol] 108 U/L Normal 34-123 [facility] Comment on above: Order Comment: Speci men Type: BLOOD SPECIMENOrdering Facility: [facility] Address: [address] [place] [address] Performed By: #### 2 4323-8, ####[facility] LABCLIA [id number] [facility] [id number], [place] [address] [place] ALT [Catalytic activity/Vol] 25 U/L Normal 7-38 [facility] Comment on above: Order Comment: Speci men Type: BLOOD SPECIMENOrdering Facility: [facility] Address: [address] [place] [address] Performed By: #### 2 4323-8,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 (6-JENNIFFER) (U) [Mass/Vol] <5 Normal <5 [facility] Comment on above: Order Comment: Speci men Type: URINE SPECIMENOrdering Facility: [facility] Address: [address] [place] [address] Result Comment: 6-Mo noacetylmorphine is a metabolite of heroin. Performed By: #### U QNTX ####[facility] [id number] [place] [address] [place] Amphetamine Confirm (U) [Mass/Vol] <25 Normal <25 [facility] Comment on above: Order Comment: Speci men Type: URINE SPECIMENOrdering Facility: [facility] Address: [address] [place] [address] Result Comment: Meth ylphenidate does not contain or metabolize to amphetamine. Performed By: #### U QNTX ####[facility] [id number] [place] [address] [place] Benzoylecgonine Confirm (U) [Mass/Vol] <25 Normal <25 [facility] Comment on above: Order Comment: Speci men Type: URINE SPECIMENOrdering Facility: [facility] Address: [address] [place] [address] Result Comment: Joni oylecgonine is a metabolite of cocaine. Performed By: #### U QNTX ####[facility] LABIA [id number] [place] [address] [place] Buprenorphine (U) [Mass/Vol] <5 Normal <5 [facility] Comment on above: Order Comment: Speci men Type: URINE SPECIMENOrdering Facility: [facility] Address: [address] [place] [address] Result Comment: Lizeth ents using transdermal formulations of buprenorphine may yield undetectable buprenorphine and norbuprenorphine urine concentrations. Performed By: #### U QNTX ####[facility] [id number] [place] [address] [place] Carboxy tetrahydrocannabinol (U) [Mass/Vol] <10 Normal <10 [facility] Comment on above: Order Comment: Speci men Type: URINE SPECIMENOrdering Facility: [facility] Address: [address] [place] [address] Result Comment: 11-N bv-5-rfeapcc-tetrahydrocannabinol (jginp-8-kwtxujc-THC) is a metabolite of qvymt-2-sobatqqhhsamrbczhtoq (THC). This test does not differentiate between delta-8 or delta-9 carboxy-THC. Performed By: #### U QNTX ####[facility] LABIA [id number] [place] [address] [place] Codeine Confirm (U) [Mass/Vol] <25 Normal <25 [facility] Comment on above: Order Comment: Speci men Type: URINE SPECIMENOrdering Facility: [facility] Address: [address] [place] [address] Performed By: #### U QNTX ####[facility] LABIA [id number] [place] [address] [place] fentaNYL Confirm (U) [Mass/Vol] <1 Normal <1 [facility] Comment on above: Order Comment: Speci men Type: URINE SPECIMENOrdering Facility: [facility] Address: [address] [place] [address] Performed By: #### U QNTX ####[facility] LABIA [id number] [place] [address] [place] HYDROcodone Confirm (U) [Mass/Vol] <25 Normal <25 [facility] Comment on above: Order Comment: Speci men Type: URINE SPECIMENOrdering Facility: [facility] Address: [address] [place] [address] Performed By: #### U QNTX ####[facility] LABIA [id number] [place] [address] [place] HYDROmorphone Confirm (U) [Mass/Vol] <25 Normal <25 [facility] Comment on above: Order Comment: Speci men Type: URINE SPECIMENOrdering Facility: [facility] Address: [address] [place] [address] Performed By: #### U QNTX ####[facility] [id number] [place] [address] [place] MDA, UR <25 Normal <25 [facility] Comment on above: Order Comment: Speci men Type: URINE SPECIMENOrdering Facility: [facility] Address: [address] [place] [address] Result Comment: 3,4 Methylenedioxyamphetamine is also known as MDA. Performed By: #### U QNTX ####[facility] [id number] [place] [address] [place] MDEA, UR <25 Normal <25 [facility] Comment on above: Order Comment: Speci men Type: URINE SPECIMENOrdering Facility: [facility] Address: [address] [place] [address] Result Comment: 3,4 Ixmonjdrunedoc-Z-kigckcegepfrsesw is also known as MDEA. Performed By: #### U QNTX ####[facility] [id number] [place] [address] [place] MDMA, UR <25 Normal <25 [facility] Comment on above: Order Comment: Speci men Type: URINE SPECIMENOrdering Facility: [facility] Address: [address] [place] [address] Result Comment: 3,4- Methylenedioxymethamphetamine is also known as MDMA. Performed By: #### U QNTX ####[facility] LABCLIA [id number] [address] [place] [facility] Methadone Confirm (U) [Mass/Vol] <25 Normal <25 [facility] Comment on above: Order Comment: Speci men Type: URINE SPECIMENOrdering Facility: [facility] Address: [address] [place] [address] Performed By: #### U QNTX ####[facility] LABIA [id number] [address] [place] Methamphetamine Confirm (U) [Mass/Vol] <25 Normal <25 [facility] Comment on above: Order Comment: Speci men Type: URINE SPECIMENOrdering Facility: [facility] Address: [address] [place] [address] Performed By: #### U QNTX ####[facility] LABIA [id number] [address] [place] Morphine Confirm (U) [Mass/Vol] <25 Normal <25 [facility] Comment on above: Order Comment: Speci men Type: URINE SPECIMENOrdering Facility: [facility] Address: [address] [place] [address] Performed By: #### U QNTX ####[facility] LABIA [id number] [address] [place] [facility] Norbuprenorphine (U) [Mass/Vol] <10 Normal <10 [facility] Comment on above: Order Comment: Speci men Type: URINE SPECIMENOrdering Facility: [facility] Address: [address] [place] [address] Result Comment: Norb uprenorphine is a metabolite of buprenorphine. Patients using transdermal formulations of buprenorphine may yield undetectable buprenorphine and norbuprenorphine urine concentrations. Performed By: #### U QNTX ####[facility] [id number] [place] [address] [place] Norfentanyl Confirm (U) [Mass/Vol] <1 Normal <1 [facility] Comment on above: Order Comment: Speci men Type: URINE SPECIMENOrdering Facility: [facility] Address: [address] [place] [address] Result Comment: Norf entanyl is a metabolite of fentanyl. Performed By: #### U QNTX ####[facility] [id number] [place] [address] [place] NORHYDROCODONE, UR <25 Normal <25 [facility] Comment on above: Order Comment: Speci men Type: URINE SPECIMENOrdering Facility: [facility] Address: [address] [place] [address] Result Comment: Norh ydrocodone is a metabolite of hydrocodone. Performed By: #### U QNTX ####[facility] [id number] [address] [place] NOROXYCODONE, UR <25 Normal <25 [facility] Comment on above: Order Comment: Speci men Type: URINE SPECIMENOrdering Facility: [facility] Address: [address] [place] [address] Result Comment: Noro xycodone is a metabolite of oxycodone. Performed By: #### U QNTX ####[facility] [id number] [address] [place] NOROXYMORPHONE, UR <25 Normal <25 [facility] Comment on above: Order Comment: Speci men Type: URINE SPECIMENOrdering Facility: [facility] Address: [address] [place] [address] Result Comment: Noro xymorphone is a metabolite of oxymorphone and oxycodone and a minor metabolite of naltrexone and naloxone. Performed By: #### U QNTX ####[facility] [id number] [place] [id number] [place] Nortramadol (U) [Mass/Vol] <25 Normal <25 [facility] Comment on above: Order Comment: Speci men Type: URINE SPECIMENOrdering Facility: [facility] Address: [address] [place] [address] Result Comment: O-de smethyltramadol is a metabolite of tramadol. Performed By: #### U QNTX ####[facility] [id number] [place] [address] [place] NOTE, UR TOXICOLOGY PANEL Normal [facility] Comment on above: Order Comment: Speci men Type: URINE SPECIMENOrdering Facility: [facility] Address: [address] [place] [address] Result Comment: For medical purposes only. Not valid for legal or forensic purposes. This test was developed, and its performance characteristics determined by the [facility] Department of Pathology and Laboratory Medicine. It has not been cleared or approved by the FDA. The [facility] Department of Pathology and Laboratory Medicine is regulated under CLIA as qualified to perform high-complexity testing. This test is used for clinical purposes. It should not be regarded as investigational or for research. Performed By: #### U QNTX ####[facility] [id number] [place] [address] [place] oxyCODONE Confirm (U) [Mass/Vol] <25 Normal <25 [facility] Comment on above: Order Comment: Speci men Type: URINE SPECIMENOrdering Facility: [facility] Address: [address] [place] [address] Performed By: #### U QNTX ####[facility] [id number] [place] [address] [place] oxyMORphone Confirm (U) [Mass/Vol] <25 Normal <25 [facility] Comment on above: Order Comment: Speci men Type: URINE SPECIMENOrdering Facility: [facility] Address: [address] [place] [address] Performed By: #### U QNTX ####[facility] LABIA [id number] [place] [address] [place] Phencyclidine Confirm (U) [Mass/Vol] <10 Normal <10 [facility] Comment on above: Order Comment: Speci men Type: URINE SPECIMENOrdering Facility: [facility] Address: [address] [place] [address] Result Comment: Phen cyclidine is also known as PCP. Performed By: #### U QNTX ####[facility] [id number] [place] [address] [place] PHENTERMINE, UR <25 Normal <25 [facility] Comment on above: Order Comment: Speci men Type: URINE SPECIMENOrdering Facility: [facility] Address: [address] [place] [address] Performed By: #### U QNTX ####[facility] [id number] [place] [address] [place] traMADol Confirm (U) [Mass/Vol] <25 Normal <25 [facility] Comment on above: Order Comment: Speci men Type: URINE SPECIMENOrdering Facility: [facility] Address: [address] [place] [address] Performed By: #### U QNTX ####[facility] LABIA [id number] [place] [id number] [place] SPECIMEN VALIDITY, URINEon 0 02-07-2025 CREATININE,URINE 76.8 mg/dL Normal 20.0-300.0 [facility] Comment on above: Order Comment: Speci men Type: URINE SPECIMENOrdering Facility: [facility] Address: [address] [place] [address] Performed By: #### L [id number] ####[facility] LABIA [id number] [address] [address] [place] NITRITES,URINE <50 Normal <500 [facility] Comment on above: Order Comment: Speci men Type: URINE SPECIMENOrdering Facility: [facility] Address: [address] [place] [address] Performed By: #### L [id number] ####[facility] LABCLIA [id number] [place] [id number] [place] OXIDANTS,URINE <38 Normal <200 [facility] Comment on above: Order Comment: Speci men Type: URINE SPECIMENOrdering Facility: [facility] Address: [address] [place] [address] Performed By: #### L [id number] ####[facility] LABCLIA [id number] [address], [facility]95 [place] pH (U) 6.2 [pH] Normal 4.5-8.0 [facility] Comment on above: Order Comment: Speci men Type: URINE SPECIMENOrdering Facility: [facility] Address: [address] [place] [address] Performed By: #### L [id number] ####[facility] LABCLIA [id number] [place] [id number] [place] SPEC GRAVITY,UR 1.019 Normal 1.003-1.03 5 [facility] Comment on above: Order Comment: Speci men Type: URINE SPECIMENOrdering Facility: [facility] Address: [address] [place] [address] Performed By: #### L [id number] ####[facility] LABCLIA [id number] [place] [id number] [place] SPECIMEN VALIDITY QUALITY Specimen quality results within acceptable limits Normal [facility] Comment on above: Order Comment: Speci men Type: URINE SPECIMENOrdering Facility: [facility] Address: [address] [place] [address] Performed By: #### L [id number] ####[facility] LABCLIA [id number] [place] [address] [place] TOXICOLOGY SCREEN, ROUTINE U RINEon 02-07-2025 Amphetamines Confirm (U) [Mass/Vol] Negative Normal Negative [facility] Comment on above: Order Comment: Speci men Type: URINE SPECIMENOrdering Facility: [facility] Address: [address] [place] [address] Result Comment: Cuto ff threshold at 1000 ng/mL. Performed By: #### U TOX2 ####[facility] LABIA [id number] [place] [address] [place] BARBITURATES, URINE Negative Normal Negative [facility] Comment on above: Order Comment: Speci men Type: URINE SPECIMENOrdering Facility: [facility] Address: [address] [place] [address] Result Comment: Cuto ff threshold at 200 ng/mL. Performed By: #### U TOX2 ####[facility] LABIA [id number] [place] [address] [place] BENZODIAZEPINES, URINE Negative Normal Negative [facility] Comment on above: Order Comment: Speci men Type: URINE SPECIMENOrdering Facility: [facility] Address: [address] [place] [address] Result Comment: Cuto ff threshold at 200 ng/mL. Performed By: #### U TOX2 ####[facility] LABCLIA [id number] [place] [address] [place] Cannabinoids Screen Ql (U) Negative Normal Negative [facility] Comment on above: Order Comment: Speci men Type: URINE SPECIMENOrdering Facility: [facility] Address: [address] [place] [address] Result Comment: Cuto ff threshold at 50 ng/mL. Performed By: #### U TOX2 ####[facility] LABIA [id number] [place] [address] [place] Cocaine Ql (U) Negative Normal Negative [facility] Comment on above: Order Comment: Speci men Type: URINE SPECIMENOrdering Facility: [facility] Address: [address] [place] [address] Result Comment: Cuto ff threshold at 300 ng/mL. Performed By: #### U TOX2 ####[facility] LABCLIA [id number] [place] [address] [place] Ethanol (U) [Mass/Vol] <11 Normal <11 [facility] Comment on above: Order Comment: Speci men Type: URINE SPECIMENOrdering Facility: [facility] Address: [address] [place] [address] Performed By: #### U TOX2 ####[facility] LABCLIA [id number] [place] [address] [place] fentaNYL Screen Ql (U) Negative Normal Negative [facility] Comment on above: Order Comment: Speci men Type: URINE SPECIMENOrdering Facility: [facility] Address: [address] [place] [address] Result Comment: Cuto ff threshold at 5 ng/mL. Performed By: #### U TOX2 ####[facility] LABCL[facility] [id number] [place] [address] [place] Opiates Screen Ql (U) Negative Normal Negative [facility] Comment on above: Order Comment: Speci men Type: URINE SPECIMENOrdering Facility: [facility] Address: [address] [place] [address] Result Comment: Cuto ff threshold at 300 ng/mL. Performed By: #### U TOX2 ####[facility] LABIA [id number] [place] [address] [place] oxyCODONE cutoff Screen (U) [Mass/Vol] Negative Normal Negative [facility] Comment on above: Order Comment: Speci men Type: URINE SPECIMENOrdering Facility: [facility] Address: [address] [place] [address] Result Comment: Cuto ff threshold at 100 ng/mL. Performed By: #### U TOX2 ####[facility] LABIA [id number] [address] [place] Phencyclidine Ql (U) Negative Normal Negative [facility] Comment on above: Order Comment: Speci men Type: URINE SPECIMENOrdering Facility: [facility] Address: [address] [place] [address] Result Comment: Cuto ff threshold at 25 ng/mL. Performed By: #### U TOX2 ####[facility] LABCLIA [id number] [address] [place] CNPNon 02-04-2025 [facility] SANTY RAZA ([id number]) 1960 F Date Time Provider Department 02/04/25 DELORIS CHAVEZ During your visit today, we recorded the following information about you: Deloris Chavez APRN.CONTENT MANAGEMENT CONSULTANT 02/04/2025 4:06 PM Signed Received request for PT eval from [facility] for wheelchair/mobility assessment. Order placed. Can fax back, as requested. Jose Summers LPN 02/04/2025 4:27 PM Signed Faxed. Jose Summers LPN Allergies As of Date: 02/04/2025 Noted Allergy Reaction DOXYCYCLINE MONOHYDRATE 07/10/2016 11 - Vomiting HCTZ (AMILORIDE-HYDROCHLOROTHIAZ I*09/05/2022 9 - Itching LEVAQUIN (LEVOFLOXACIN) 03/04/2005 14 - Other: See Comments Comments: Jittery nervousness MELOXICAM 10/25/2019 9 - Itching 2 - Rash 7 - Swelling PEANUTS 03/04/2005 9 - Itching Date Reviewed: 11/03/2024 Reviewed by: Tito Ann APRN.CONTENT MANAGEMENT CONSULTANT - Fully Assessed Reason for Visit: Orders [681] Primary Visit Diagnosis:Impaired gait and mobility [R26.89] Order(s):CONSULT TO PT/OT WHEELCHAIR EVALUATION [[id number]] Order #: [id number]: 1 FUTURE Prescriptions as of 02/04/2025 - Nebulizer Accessories [facility] each as directed. Nebulizer tubing and mouth piece. - ofloxacin (FLOXIN) 0.3 % otic solution Use 5 drops in both ears once daily. - buPROPion XL (WELLBUTRIN XL) 300 mg 24 hr tablet Take 1 tablet by mouth once daily. - lisinopril (ZESTRIL) 40 mg tablet Take 1 tablet by mouth once daily. - amLODIPine (NORVASC) 5 mg tablet Take 1 tablet by mouth once daily. - levothyroxine (LEVOXYL) 200 mcg tablet Take 1 tablet by mouth once daily. Take on empty stomach. For thyroid - lansoprazole (PREVACID) 15 mg capsule Take 1 capsule by mouth once daily. - atorvastatin (LIPITOR) 10 mg tablet Take 1 tablet by mouth daily at bedtime. For cholesterol. - amitriptyline (ELAVIL) 25 mg tablet Take 1 tablet by mouth daily at bedtime. - albuterol (PROVENTIL) 2.5 mg /3 mL (0.083 %) nebulizer solution Use 3 mL via nebulizer every 6 hours as needed for wheezing/shortness of breath. - benzonatate (TESSALON PERLES) 100 mg capsule Take 1-2 capsules by mouth three times a day as needed for cough. - budesonide-formoterol (SYMBICORT) 160-4.5 mcg/actuation inhaler Inhale 2 puffs as instructed two times a day. - venlafaxine ER (EFFEXOR XR) 150 mg 24 hr capsule Take 1 capsule by mouth once daily. Start after taking 75 mg X 1 week. Stop the citalopram when starting this dose. - oxygen-air delivery systems (WALKABOUT MINI OXYGEN SYSTEM [facility]) - azithromycin (ZITHROMAX) 250 mg tablet Take 1 tablet by mouth as directed. Take 2 tablets by mouth on Day 1, then 1 tablet by mouth every day thereafter for 4 days - furosemide (LASIX) 20 mg tablet Take 1 tablet by mouth once daily. If you have increased swelling, okay to increase to 2 tablets daily for 2-3 days. Do not do more than once weekly. - benzonatate (TESSALON PERLE) 100 mg capsule Take 2 capsules by mouth three times a day as needed. - HYDROcodone-acetaminophen (NORCO) 5-325 mg per tablet Take 1 tablet by mouth every 8 hours as needed for pain. From pain management. Aware to not use with xanax. - loratadine (CLARITIN) 10 mg tablet Take 1 tablet by mouth once daily. - Ipratropium (ATROVENT HFA) 17 mcg/actuation inhaler Inhale 2 Puffs as instructed every 6 hours. - Cholecalciferol, Vitamin D3, 125 mcg (5,000 unit) cap Take 1 capsule by mouth once daily. - CPAP autoCPAP 5-15 cmH2O, mask, tubing, filters, heated humidity, lifetime supplies. Dx: TRINI - Nebulizer 1 Each as needed. NEBULIZER TUBING AND SUPPLIES. DX: CHRONIC BRONCHITIS J41.1, WHEEZING R06.2. FAX TO [employer] [phone] - COMPOUNDED PRESCRIPTION Nebulizer for albuterol every fours as needed ICD: R06.2 Problem List As Of Date 02/04/2025 Noted Resolved Anxiety [F41.9] 07/08/2019 Allergic rhinitis [J30.9] BENIGN HYPERTENSION [I10] ADJUSTMENT DISORDER WITH DEPRESSED MOOD [F43.21]07/02/2006 Contact dermatitis and other eczema, due to uns*11/05/2006 09/26/2015 Contact dermatitis and other eczema due to othe*11/05/2006 09/26/2015 Other atopic dermatitis and related conditions *11/05/2006 09/26/2015 XEROSIS////SEBACEOUS GLAND DIS NEC [L73.8] 11/05/2006 09/26/2015 Unspecified pruritic disorder [L29.9] 11/05/2006 09/26/2015 Sciatica [M54.30] 08/11/2009 02/20/2016 Tobacco abuse [Z72.0] 03/23/2012 Hyperlipidemia LDL goal <130 [E78.5] 07/17/2015 Spondylolisthesis of lumbar region [M43.16] 07/17/2015 Disabling back pain [M54.9] 07/17/2015 TRINI (obstructive sleep apnea) [G47.33] 09/19/2015 Hypothyroidism [E03.9] 09/26/2015 Morbid obesity due to excess calories (HCC) [E6*09/26/2015 DDD (degenerative disc disease), lumbar [M51.36*02/28/2016 Spondylosis of lumbar region without myelopathy*02/28/2016 GERD without esophagitis [K21.9] 02/04/2017 Mucopurulent chronic bronchitis (HCC) [J41.1] (more content not included)... Normal [facility] Fluor Guidance for Spine Inj on 01-31-2025 Fluor Guidance for Spine Inj [facility] Imaging Services [address] [place] [address] Fluor Guidance for Spine Inj MR#: [id number] Acct: [id number] Name: SANTY RAZA Rep #: [id number] : 1960 F 64 From: Alexis bryant MD PCP: JULIA FreedmanC Status: [facility] Study: Fluor Guidance for Spine Inj Date of Exam: Exam# [id number] Ordering Dr: Tito Felipe MD PROCEDURE: FLUOR GUIDANCE FOR SPINE INJ 01/31/2025 REASON FOR EXAM: BLOCK; CAUDAL TECHNIQUE: FLUOR GUIDANCE FOR SPINE INJ. Dose report: 6.6 seconds of fluoroscopy. 5.78 mGy. 1 image was submitted. COMPARISON: None FINDINGS: Intraoperative imaging provided for caudal block. RAD/Fluor Guidance for Spine Inj IMPRESSION: Intraoperative imaging provided for caudal block. Reading Location: [facility] CC: YOUTH CORRECTIONS OFFICERChristopherC Deloris Chavez; Dr. Tito Felipe MD Manager Target: Signed [facility] MR/POSTOP.ANEon 01-31-2025 MR/POSTOP.[facility] Medical Records Department [address] [place] [address] Anesthesia Postop Eval I 01/31/25 0933 MR#: [id number] Acct: [id number] Name: SANTY RAZA Rep #: [id number] : 1960 64 From: Justyna Lafleur CRNA PCP: JULAI FreedmanC Status:[facility] Y Race: C Location: [place] [address] Anesthesia: Postop Eval I Current Vital Signs Temperature: 97 F Pulse Rate: 78 Blood Pressure: 120/78 Respiratory Rate: 18 Pulse Ox: 99 Assessment Airway patent: Yes Spontaneous unlabored respirations: Yes nausea: No Vomiting: No Anesthesia Complication: No Fluid Hydration Crystalloid volume administer (ml): 200 Total IV fluid infused: 200 Progress Note Anesthesia document: Postop Eval 1 completed: Yes 01/31/25933 Date Justyna Lafleur COVERAGE ANALYST Cosigner Signature: Date CC: Signed Normal [facility] MR/NARIYFRT6pz 01-31-2025 [facility] Medical Records Department [address] [place] [address] Anesthesia Postop Eval II 01/31/25 1258 MR#: [id number] Acct: [id number] Name: SANTY RAZA Rep #: [id number] : 1960 64 From: Justyna Lafleur CRNA PCP: ALEXI Freedman Status:[facility] Y Race: C [place] [facility] [place]esthesia Postop Eval I Sum Postop Eval Completion status Anesthesia document: Postop Eval 1 completed: Yes Anesthesia Postop Eval I Summary Anesthesia Postop Eval I Summary: Anesthesia Postop Eval I: Assessment Summary Airway patent Yes 01/31/25 09:34 COVERAGE ANALYST.CSIR Spontaneous unlabored Yes 01/31/25 09:34 COVERAGE ANALYST.CSIR respirations Mental status nausea No 01/31/25 09:34 COVERAGE ANALYST.CSIR Vomiting No 01/31/25 09:34 COVERAGE ANALYST.CSIR Anesthesia Postop Eval I: Fluid Summary Crystalloid volume administer 200 01/31/25 09:34 COVERAGE ANALYST.CSIR (ml) Colloids volume administered ( ml) Blood Product volume administered (ml) Total IV fluid infused 200 01/31/25 09:34 COVERAGE ANALYST.CSIR Anesthesia Postop Eval I: Summary Notes Anesthesia Complication No 01/31/25 09:34 COVERAGE ANALYST.CSIR Anesthesia Complication Comment: Post-operative progress note Anesthesia: Postop Eval II Evaluation Mental status: Awake Pain Level: 0 nausea: No Vomiting: No 01/31/25 1259 Date Justyna nora COVERAGE ANALYST Cosigner Signature: Date CC: Signed [facility] Operative Reporton 5 Operative Report [facility] Medical Records Department [address] [place] [address] Operative Report 01/31/25 1025 MR#: [id number] Acct: [id number] Name: SANTY RAZA Rep #: [id number] : 1960 64 From: Tito Felipe MD PCP: ALEXI Freedman Status:[facility] [place] [facility] Operative Report (Standard) Operative Information Date of Procedure: 01/31/25 Pre-Operative Diagnosis: Lumbosacral radiculopathy, lumbosacral degenerative disc disease, lumbosacral spinal stenosis Post-Operative Diagnosis: Lumbosacral radiculopathy, lumbosacral degenerative disc disease, lumbosacral spinal stenosis Surgery/Procedure Performed: Diagnostic/therapeutic caudal epidural steroid injection under fluoroscopic guidance sales contract administrator: No Type of Anesthesia: Local MAC RN Documented Start/Stop Times: Operation Date: 01/31/25 10:10 Case Time Into Pre-Op 01/31/25 08:36 Anesthesia Start 01/31/25 09:22 Into Room 01/31/25 09:22 Procedure Start 01/31/25 09:28 Procedure End 01/31/25 09:30 Anesthesia End 01/31/25 09:33 Out of Room 01/31/25 09:33 Into Recovery 01/31/25 09:36 Into Phase II Recovery 01/31/25 09:47 Out of Recovery 01/31/25 09:47 Out of Phase II 01/31/25 09:57 Procedure Start Time: 10:26 Procedure Stop Time: : Select all DRAINS/GRAFTS/IMPLANTS that apply: None Estimated Blood Loss: 1 Specimen collected: No Description of surgery: ANESTHESIA: MAC. BLOOD LOSS: Minimal. COMPLICATIONS: None. DESCRIPTION OF PROCEDURE: History and physical of today was reviewed. Risks and benefits of the procedure were explained. The patient understood and agreed to proceed. Informed consent was obtained. IV inserted per routine protocol. The patient was taken to the operating room and placed in the prone position with a pillow positioned underneath the abdomen. The lower back and tailbone area was prepped and draped in a sterile fashion using iodine x3. Under fluoroscopy guidance on a lateral view, the caudal space was identified. The skin and subcutaneous tissue was anesthetized with approximately 3 mL of 1% lidocaine using a 25-gauge regular needle. Under direct visualization with fluoroscopy, using a 22-gauge 3-1/2-inch spinal needle, the needle was advanced via the skin through the sacral hiatus. The tip of the needle was passed through the sacrococcygeal ligament and advanced to approximately S4 area. After negative aspiration of blood or CSF, a total of 3 mL of contrast was injected to confirm correct placement of the needle as well as cephalad spread. The spread was followed to approximately L5 area. After confirmation on AP as well as lateral view and repeated negative aspiration, a total of 15 mL of preservative-free 0.125% Marcaine with 80 mg of Depo-Medrol was injected easily. The needle was then removed intact. The patient experienced no sign or symptoms of intrathecal or intravascular injection. The patient experienced no paresthesia. The procedure was completed without any apparent difficulty or any complications. The patient appeared to tolerate it well. ASSESSMENT AND PLAN: This is a 64-year-old female with lumbosacral radiculopathy, lumbosacral degenerative disc disease, lumbosacral spinal stenosis, status post diagnostic/therapeutic caudal epidural steroid injection under fluoroscopic guidance, patient will continue her current medications, patient will follow-up in approximately 2 weeks for reevaluation. Surgical Findings: 0 Complications Complications: No Admit VTE Documentation VTE Present on Admission: No VTE Mechan Device Prophylaxis: None VTE Pharm Prophylaxis ordered?: No 01/31/25 1027 Cosigner Signature (if applicable): CC: ALEXI Chavez; Dr. Tito Felipe MD Signed 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 When Was Last Pacemaker Check QUESTION #4 FULL TEXT: You/Your Family Experience fever (hyperthermia) with Anesthesia Last Oral Intake Last Oral intake: Last Oral Intake NPO since Meds taken in AM with sips of water? Meds patient instructed to take am of surgery PONV PONV - plant breeder scientist: PONV - plant breeder scientist Female Yes 01/25/25 09:33 HX of Motion Sickness No 01/25/25 09:33 HX of N/V After Surgery No 01/25/25 09:33 Non-Smoker Yes 01/25/25 09:33 Duration of Surgery greater No 01/25/25 09:33 than 60 minutes Number of Risk Factors 2 01/25/25 09:33 PONV Score Moderate Risk 01/25/25 09:33 Height Weight Height Weight: Anesthesia: Height Weight Height 5 ft 5 in 10/04/24 09:18 Respiratory Assessment Respiratory Assessment - plant breeder scientist: Respiratory Tract Infection Hx - plant breeder scientist Hx Respiratory Tract Infection No 01/25/25 09:33 STOP Sleep Apnea STOP Sleep Apnea - plant breeder scientist: STOP Sleep Apnea - plant breeder scientist Hx Hypertension Yes: CONTROLLED WITH MEDS 01/25/25 09:33 Hx Sleep Apnea No 01/25/25 09:33 CPAP Yes: DOES NOT USE 01/25/25 09:33 BIPAP No 01/25/25 09:33 Do you snore loudly (louder No 01/25/25 09:33 than talking or can be heard Do you often feel tired/ No 01/25/25 09:33 fatigued/ sleepy during daytime? Has anyone observed you stop No 01/25/25 09:33 breathing during sleep? STOP Results Negative 01/25/25 09:33 QUESTION #5 FULL TEXT : Do you snore loudly (louder than talking or can be heard through closed doors)? 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 Specify any problems Hx of Preganancy in last 3 No 01/25/25 09:33 Months Nurse Filling Out Transfusion VCHRISTIN 01/25/25 09:33 Questions: Date: 01/25/25 01/25/25 09:33 Time: 09:34 01/25/25 09:33 Patient unable to answer at this time (ie. confused, unrespo /Reproduction History /Reproductive History - plant breeder scientist: /Reproductive Hx- plant breeder scientist Hx Now No 01/25/25 09:33 Gestational Age (in weeks): EDC: Hx Hx Para Hx Section SAB No 01/25/25 09:33 [facility] Medical History (Updated 01/25/25 @ 09:37 by Snow Love) Former smoker Post-menopausal History of steroid therapy Thyroid disease Walker as ambulation aid Injury of head and neck Blackout Difficulty swallowing History of hiatal hernia Asthma History of pain when walking History of edema On home oxygen therapy Pain Loss of hearing Wears hearing aid Wears dentures Wears glasses Restless legs Gastric reflux Hoarseness Chronic cough Shortness of breath on exertion History of stress test Anxiety Depression Hypothyroid Hypertension Back pain Home Medications ???Medication ???Instructions ???Recorded ???Last Taken ???Type alprazolam 1 mg tablet (Xanax) 1 mg PO DAILY PRN Anxiety 09/22/15 Unknown History furosemide 20 mg tablet 20 mg PO DAILY 11/29/17 08/29/24 H istory (more content not included)... Normal [facility] 01-24-2025 [facility] SANTY RAZA ([id number]) 1960 F Date Time Provider Department 01/24/25 DELORIS CHAVEZ [facility] During your visit today, we recorded the following information about you: Noemí Bynum LPN 01/24/2025 2:21 PM Signed Jacy with [facility] calls to request pt's demographics and last 2 office visit notes. Information faxed to: [phone] as requested. Noemí Bynum LPN Allergies As of Date: 01/24/2025 Noted Allergy Reaction DOXYCYCLINE MONOHYDRATE 07/10/2016 11 - Vomiting HCTZ (AMILORIDE-HYDROCHLOROTHIAZ I*09/05/2022 9 - Itching LEVAQUIN (LEVOFLOXACIN) 03/04/2005 14 - Other: See Comments Comments: Jittery nervousness MELOXICAM 10/25/2019 9 - Itching 2 - Rash 7 - Swelling PEANUTS 03/04/2005 9 - Itching Date Reviewed: 11/03/2024 Reviewed by: Tito Ann APRN.CONTENT MANAGEMENT CONSULTANT - Fully Assessed Reason for Visit: pt information [Other] Prescriptions as of 01/24/2025 - ofloxacin (FLOXIN) 0.3 % otic solution Use 5 drops in both ears once daily. - buPROPion XL (WELLBUTRIN XL) 300 mg 24 hr tablet Take 1 tablet by mouth once daily. - lisinopril (ZESTRIL) 40 mg tablet Take 1 tablet by mouth once daily. - amLODIPine (NORVASC) 5 mg tablet Take 1 tablet by mouth once daily. - levothyroxine (LEVOXYL) 200 mcg tablet Take 1 tablet by mouth once daily. Take on empty stomach. For thyroid - lansoprazole (PREVACID) 15 mg capsule Take 1 capsule by mouth once daily. - atorvastatin (LIPITOR) 10 mg tablet Take 1 tablet by mouth daily at bedtime. For cholesterol. - amitriptyline (ELAVIL) 25 mg tablet Take 1 tablet by mouth daily at bedtime. - albuterol (PROVENTIL) 2.5 mg /3 mL (0.083 %) nebulizer solution Use 3 mL via nebulizer every 6 hours as needed for wheezing/shortness of breath. - benzonatate (TESSALON PERLES) 100 mg capsule Take 1-2 capsules by mouth three times a day as needed for cough. - budesonide-formoterol (SYMBICORT) 160-4.5 mcg/actuation inhaler Inhale 2 puffs as instructed two times a day. - venlafaxine ER (EFFEXOR XR) 150 mg 24 hr capsule Take 1 capsule by mouth once daily. Start after taking 75 mg X 1 week. Stop the citalopram when starting this dose. - oxygen-air delivery systems (WALKABOUT MINI OXYGEN SYSTEM [facility]) - azithromycin (ZITHROMAX) 250 mg tablet Take 1 tablet by mouth as directed. Take 2 tablets by mouth on Day 1, then 1 tablet by mouth every day thereafter for 4 days - furosemide (LASIX) 20 mg tablet Take 1 tablet by mouth once daily. If you have increased swelling, okay to increase to 2 tablets daily for 2-3 days. Do not do more than once weekly. - benzonatate (TESSALON PERLE) 100 mg capsule Take 2 capsules by mouth three times a day as needed. - HYDROcodone-acetaminophen (NORCO) 5-325 mg per tablet Take 1 tablet by mouth every 8 hours as needed for pain. From pain management. Aware to not use with xanax. - loratadine (CLARITIN) 10 mg tablet Take 1 tablet by mouth once daily. - Ipratropium (ATROVENT HFA) 17 mcg/actuation inhaler Inhale 2 Puffs as instructed every 6 hours. - Cholecalciferol, Vitamin D3, 125 mcg (5,000 unit) cap Take 1 capsule by mouth once daily. - Nebulizer Accessories misc 1 Each as directed. Nebulizer tubing and mouth piece. faxed to - CPAP autoCPAP 5-15 cmH2O, mask, tubing, filters, heated humidity, lifetime supplies. Dx: TRINI - Nebulizer 1 Each as needed. NEBULIZER TUBING AND SUPPLIES. DX: CHRONIC BRONCHITIS J41.1, WHEEZING R06.2. FAX TO [employer] [phone] - COMPOUNDED PRESCRIPTION Nebulizer for albuterol every fours as needed ICD: R06.2 Problem List As Of Date 01/24/2025 Noted Resolved Anxiety [F41.9] 07/08/2019 Allergic rhinitis [J30.9] BENIGN HYPERTENSION [I10] ADJUSTMENT DISORDER WITH DEPRESSED MOOD [F43.21]07/02/2006 Contact dermatitis and other eczema, due to uns*11/05/2006 09/26/2015 Contact dermatitis and other eczema due to othe*11/05/2006 09/26/2015 Other atopic dermatitis and related conditions *11/05/2006 09/26/2015 XEROSIS////SEBACEOUS GLAND DIS NEC [L73.8] 11/05/2006 09/26/2015 Unspecified pruritic disorder [L29.9] 11/05/2006 09/26/2015 Sciatica [M54.30] 08/11/2009 02/20/2016 Tobacco abuse [Z72.0] 03/23/2012 Hyperlipidemia LDL goal <130 [E78.5] 07/17/2015 Spondylolisthesis of lumbar region [M43.16] 07/17/2015 Disabling back pain [M54.9] 07/17/2015 TRINI (obstructive sleep apnea) [G47.33] 09/19/2015 Hypothyroidism [E03.9] 09/26/2015 Morbid obesity due to excess calories (HCC) [E6*09/26/2015 DDD (degenerative disc disease), lumbar [M51.36*02/28/2016 Spondylosis of lumbar region without myelopathy*02/28/2016 GERD without esophagitis [K21.9] 02/04/2017 Mucopurulent chronic bronchitis (HCC) [J41.1] 06/04/2017 Osteoarthritis of spine with radiculopathy, lum*06/17/2017 Tympanic membrane perforation, right [H72.91] 06/18/2017 Chronic bilateral thoracic b (more content not included)... Normal [facility] CNOVon 11-03-2024 CNOV Office Visit (UCTR ) SANTY RAZA ([id number]) 1960 F Date Time Provider Department 11/03/24 11:30 AM TITO ANN [facility] During your visit today, we recorded the following information about you: Temperature Pulse Respiration Blood pressure 97.8 degrees 84/minute 18/minute 122/78 Weight 143.7 kg Tito Ann APRN.CONTENT MANAGEMENT CONSULTANT 11/03/2024 11:59 AM Signed Subjective HPI Nontoxic-appearing 63-year-old female. Chief complaints cough chest congestion. Duration of symptoms 5 days. Associated symptoms cough chest congestion sore throat body aches chills low-grade fever. Cough has became more bothersome more productive. Sore throat she contributes the coughing. History of COPD. Unknown sick contacts. No chest pain hemoptysis or pleuritic pain. Past medical history prescription medications allergies reviewed. .Patient presents with: Sore Throat: ST, fever and cough x 5 days PAST MEDICAL HISTORY Diagnosis Date Allergic rhinitis, cause unspecified BMI 45.0-49.9, adult ([facility]) 08/27/2022 Essential hypertension, benign Hypothyroidism 09/26/2015 Mixed conductive and sensorineural hearing loss TRINI on CPAP Other anxiety states Perforated tympanic membrane 03/29/2011 S/P repair of ventral hernia 09/06/2022 Synovitis and tenosynovitis, unspecified Tobacco abuse 03/23/2012 PAST SURGICAL HISTORY Procedure Laterality Date COLONOSCOPY SCRN NOT HIGH RISK 09/13/2020 EGD 10/25/2020 L'SCOPE DX W/WO BRUSHINGS/WASHINGS 09/05/2022 Dr. Guadarrama LIG/TRNSXJ FLP TUBE ABDL/VAG APPR UNI/BI Tubal ligation LX REPAIR RECURRENT VENTRAL HERNIA 09/05/2022 open, w/ mesh. Dr. Guadarrama MYRINGOTOMY ASPIRAND/EUSTACHIAN TUBE NFLTJ ANES Myringotomy/tubes NEUROPLASTY AND/TRANSPOS MEDIAN NRV CARPAL TUNNE Bilateral 01/15/2019 Bilateral carpal tunnel release REDUCTION OF LARGE BREAST 04/23/2016 STEREOTACT BREAST BX EA LESION PC 09/30/2018 left stereotactic breast biopsy w/vacuum assisted core needle biopsy, specimen radiograph and marker placement ALLERGIES Doxycycline Monohydrate, Hctz [Amiloride-Hydrochlorothiaz rick], Levaquin [Levofloxacin], Meloxicam, and Peanuts MEDICATIONS albuterol (PROVENTIL) 2.5 mg /3 mL (0.083 %) nebulizer solution Use 3 mL via nebulizer every 6 hours as needed for wheezing/shortness of breath. benzonatate (TESSALON PERLES) 100 mg capsule Take 1-2 capsules by mouth three times a day as needed for cough. budesonide-formoterol (SYMBICORT) 160-4.5 mcg/actuation inhaler Inhale 2 puffs as instructed two times a day. venlafaxine ER (EFFEXOR XR) 150 mg 24 hr capsule Take 1 capsule by mouth once daily. Start after taking 75 mg X 1 week. Stop the citalopram when starting this dose. ondansetron orally disintegrating (ZOFRAN ODT) 4 mg disintegrating tablet Take 1 tablet by mouth every 8 hours as needed for nausea/vomiting. oxygen-air delivery systems (WALKABOUT MINI OXYGEN SYSTEM [facility]) azithromycin (ZITHROMAX) 250 mg tablet Take 1 tablet by mouth as directed. Take 2 tablets by mouth on Day 1, then 1 tablet by mouth every day thereafter for 4 days lansoprazole (PREVACID) 15 mg capsule Take 1 capsule by mouth once daily. buPROPion XL (WELLBUTRIN XL) 300 mg 24 hr tablet Take 1 tablet by mouth once daily. ofloxacin (FLOXIN) 0.3 % otic solution Use 5 Drops in both ears once daily. furosemide (LASIX) 20 mg tablet Take 1 tablet by mouth once daily. If you have increased swelling, okay to increase to 2 tablets daily for 2-3 days. Do not do more than once weekly. benzonatate (TESSALON PERLE) 100 mg capsule Take 2 capsules by mouth three times a day as needed. HYDROcodone-acetaminophen (NORCO) 5-325 mg per tablet Take 1 tablet by mouth every 8 hours as needed for pain. From pain management. Aware to not use with xanax. loratadine (CLARITIN) 10 mg tablet Take 1 tablet by mouth once daily. levothyroxine (LEVOXYL) 200 mcg tablet Take 1 tablet by mouth once daily. Take on empty stomach. For thyroid amitriptyline (ELAVIL) 25 mg tablet Take 1 tablet by mouth daily at bedtime. amLODIPine (NORVASC) 5 mg tablet Take 1 tablet by mouth once daily. Ipratropium (ATROVENT HFA) 17 mcg/actuation inhaler Inhale 2 Puffs as instructed every 6 hours. lisinopril (ZESTRIL) 40 mg tablet Take 1 tablet by mouth once daily. atorvastatin (LIPITOR) 10 mg tablet Take 1 tablet by mouth daily at bedtime. For cholesterol. Cholecalciferol, Vitamin D3, 125 mcg (5,000 unit) cap Take 1 capsule by mouth once daily. Nebulizer Accessories [facility] Each as directed. Nebulizer tubing and mouth piece. faxed to CPAP autoCPAP 5-15 cmH2O, mask, tubing, filters, heated humidity, lifetime supplies. Dx: TRINI Nebulizer 1 Each as needed. NEBULIZER TUBING AND SUPPLIES. DX: CHRONIC BRONCHITIS J41.1, WHEEZING R06.2. FAX TO [employer] [phone] COMPOUNDED PRESCRIPTION Nebulizer for albuterol (more content not included)... Normal [facility] Surgery Visit Reporton 10-18 Surgery Visit Report [facility] [address] [place] [address] OFFICE VISIT Date of Service: 10/18/24 MR#: [id number] Acct: [id number] Name: SANTY RAZA Rep #: [id number] : 1960 Provider: Dr. Murray hobbs MD Age/Sex: 63/F Location: [facility] Status: Signed Intake Vital Signs 10/04/24 09:18 Height 5 ft 5 in Intake Visit Reasons: VENTRAL HERNIA DOS 10/04 Chief Complaint: ventral hernia DOS 10/04 Is patient in pain?: No Allergies amlodipine Allergy (Intermediate, Verified 10/18/24 09:40) Other doxycycline Allergy (Intermediate, Verified 10/18/24 09:40) Other meloxicam Allergy (Intermediate, Verified 10/18/24 09:40) Other Fish Containing Products Allergy (Verified 10/18/24 09:40) Itching peanut Allergy (Verified 10/18/24 09:40) Itching levofloxacin (From Levaquin) Adverse Reaction (Verified 10/18/24 09:40) Other Medications ???Medication ???Instructions ???Recorded ???Confirmed ???Type alprazolam 1 mg tablet (Xanax) 1 mg PO DAILY PRN Anxiety 09/22/15 09/20/24 History lisinopril 10 mg tablet 10 mg PO DAILY 09/22/15 09/20/24 H istory levothyroxine 100 mcg tablet 100 mcg PO DAILY 05/13/16 10/04/24 History furosemide 20 mg tablet 20 mg PO DAILY 11/29/17 09/20/24 H istory lansoprazole 15 mg capsule,delayed 15 mg PO DAILY 11/29/17 09/20/24 History release tizanidine 4 mg tablet 4 mg PO QHS 11/29/17 09/20/24 Hist ory albuterol sulfate 90 mcg/actuation 1 - 2 puff inhalation Q4H PRN TN N 12/05/19 10/04/24 History aerosol inhaler Sob /Or Wheezing amitriptyline 25 mg tablet 25 mg PO QHS 06/26/21 09/20/24 His tory amlodipine 5 mg tablet 5 mg PO DAILY 06/26/21 09/20/24 Hi story bupropion HCl 150 mg tablet,12 hr 150 mg PO DAILY 06/26/21 09/20/24 History sustained-release cholecalciferol (vitamin D3) 125 125 mcg PO DAILY 06/26/21 09/20/24 History mcg (5,000 unit) tablet ondansetron HCl 4 mg tablet 4 mg PO Q6H PRN Nausea 06/26/21 History albuterol sulfate 2.5 mg/3 mL 2.5 mg inhalation Q6H PRN 10/27/23 10/04/24 History (0.083 %) solution for nebulization shortness of breath or wheezing benzonatate 100 mg capsule 100 mg PO BID PRN cough 09/01/24 0 09/20/24 History venlafaxine 150 mg 150 mg PO QAM 09/01/24 09/20/24 Hi story capsule,extended release 24 hr (Effexor XR) Subjective Details: The patient is a 63-year-old female status post a recent epigastric hernia repair. She returns today for postoperative visit. She is doing well and not having any significant issues or problems. She is very pleased with the results. Objective Details: She is alert and oriented x 3. She is in no acute distress. Examination of the abdomen reveals her incision to be healing well. No evidence of hernia recurrence or persistence. She does have some swelling to the area likely secondary to seroma. I reassured her that this will reabsorb over the next few weeks or months Coding Level of Care Code Global Post Op Diagnoses S/P repair of ventral hernia Z98.890; Z87.19 FOR[facility]LY [facility], [facility] Medical History Post-menopausal History of steroid therapy Thyroid disease Walker as ambulation aid Injury of head and neck Blackout Difficulty swallowing History of hiatal hernia Asthma History of pain when walking History of edema On home oxygen therapy Pain Loss of hearing Wears hearing aid Wears dentures Wears glasses Restless legs Gastric reflux Hoarseness Chronic cough Smoker Shortness of breath on exertion History of stress test Anxiety Depression Hypothyroid Hypertension Back pain Surgical History S/P repair of ventral hernia H/O hernia repair History of carpal tunnel surgery H/O tubal ligation History of placement of ear tubes Hx of breast reduction, elective Social History Smoking Status: Current every day smoker tobacco type: cigarettes alcohol intake: never Assessment and Plan (No Qualifiers) Assessment and Plan (1) S/P repair of ventral hernia: Status: Acute Plan: Patient is a 63-year-old female status post a successful ventral/epigastric hernia repair. She is doing well postoperatively. I recommended that she refrain from lifting more than about 20 pounds for another 4 weeks or so. I also urged her to continue to wear her abdominal binder. Follow-up will be as needed. Plan The patient 10/18/24 1547 Date Murray Guadarrama MD Cosign Signature: Date (if applicable) CC: YOUTH CORRECTIONS OFFICER-C Deloris Chavez [facility] Discharge Instructionon 09-15 Discharge Instruction [facility] Medical Records Department [address] [place] [address] Instructions for Home/Discharge Instructions 10/04/24 1210 MR#: [id number] Acct: [id number] Name: SANTY RAZA Rep #: [id number] : 1960 63 From: Murray Guadarrama MD PCP: ALEXI Freedman [place] [facility] [place] Instructions Diet Discharge Diet: Light diet - advance as tolerated Activity Discharge Activity: Return to Normal Activity and May Shower May shower in (days): 1 Lifting Restrictions: No lifting pushing or pulling more than 20 pounds for 6 weeks Additional Activity Instructions:: Wear abdominal binder as needed for comfort Dressing / Incision Call your doctor if your incision/area has: Continuous Slow Oozing, Sudden Increased Bleeding, Increased Pain/ Swelling, Increased Redness, Foul Smelling Discharge and Swelling at the incision site Call your doctor if you observe: Fever of 101 or Higher Remove Dressing in: 2 days Cleanse incision/area with: Soap Water Follow Up Care Please Follow Up With: Murray Guadarrama MD When: 2 weeks. Please call office to schedule appointment Test Results: Test results from this visit will be discussed in further detail at your follow-up appointment, if applicable. Discharge Plan Admission Primary Reason for Your Visit: Ventral hernia repair Attending Provider: Murray Guadarrama Primary Care Provider: Deloris Chavez NP Instructions Print Language: Azerbaijani Discharge Orders/Prescriptions Prescriptions: New oxycodone-acetaminophen [Percocet] 5-325 mg tablet 1 tab PO Q8H PRN (Reason: pain) 4 Days Qty: 10 0RF Continued venlafaxine [Effexor XR] 150 mg capsule,extended release 24hr 150 mg PO QAM benzonatate 100 mg capsule 100 mg PO BID PRN (Reason: cough) alprazolam [Xanax] 1 MG tablet 1 mg PO DAILY PRN (Reason: Anxiety) lisinopril 10 MG tablet 10 mg PO DAILY levothyroxine 100 MCG tablet 100 mcg PO DAILY tizanidine 4 MG tablet 4 mg PO QHS Patient Comments: lansoprazole 15 MG capsule,delayed release(DR/EC) 15 mg PO DAILY Patient Comments: furosemide 20 MG tablet 20 mg PO DAILY Patient Comments: albuterol sulfate 1 PUFF inhaler 1 - 2 puff inhalation Q4H PRN PRN (Reason: Sob /Or Wheezing) bupropion HCl 150 mg Tablet Sustained-Release 12 Hr 150 mg PO DAILY ondansetron HCl 4 mg Tablet 4 mg PO Q6H PRN (Reason: Nausea) amlodipine 5 mg Tablet 5 mg PO DAILY amitriptyline 25 mg Tablet 25 mg PO QHS cholecalciferol (vitamin D3) 125 mcg (5,000 unit) Tablet 125 mcg PO DAILY oxycodone-acetaminophen [Percocet] 5-325 mg tablet 1 tab PO Q8H PRN (Reason: pain) 3 Days Qty: 10 0RF albuterol sulfate 2.5 mg /3 mL (0.083 %) solution for nebulization 2.5 mg inhalation Q6H PRN (Reason: shortness of breath or wheezing) Patient Comments: inhale 1 vial in nebulizer every 6 hours NEEDED FOR FEVER wheezing or shortness of breath Referrals / Follow Up: Deloris Chavez NP, YOUTH CORRECTIONS OFFICER-C [Primary Care Provider] - Disposition Disposition (needs filled in before D/C Order can be placed): Home, Self Care 10/04/24 1214 Murray Guadarrama MD CC: YOUTH CORRECTIONS OFFICER-C Deloris Chavez Signed [facility] MR/POSTOP.ANEon 10-04-2024 MR/POSTOP.[facility] Medical Records Department [address] [place] [address] Anesthesia Postop Eval I 10/04/24 1227 MR#: [id number] Acct: [id number] Name: SANTY RAZA Rep #: [id number] : 1960 63 From: Essence Tijerina CRNA PCP: ALEXI Freedman [place] [facility] [place] Race: C Location: [place] [address] Anesthesia: Postop Eval I Current Vital Signs Temperature: 97.4 F Pulse Rate: 83 Blood Pressure: 95/67 Respiratory Rate: 16 Pulse Ox: 94 Oxygen Delivery Method: Simple Mask Oxygen Flow Rate (L/min): 6 Assessment Airway patent: Yes Spontaneous unlabored respirations: Yes Mental status: Awake nausea: No Vomiting: No Anesthesia Complication: No Fluid Hydration Crystalloid volume administer (ml): 900 Total IV fluid infused: 900 Progress Note Anesthesia document: Postop Eval 1 completed: Yes 10/04/24 1228 Date Essence Tijerina CRNA Cosigner Signature: Date CC: Signed [facility] MR/UNDXPRIK1ga 10-04-2024 MR/POSTOPAN2 [facility] Medical Records Department [address] [place] [address] Anesthesia Postop Eval II 10/04/24 1251 MR#: [id number] Acct: [id number] Name: SANTY RAZA Rep #: [id number] : 1960 63 From: Florinda Martinez MD PCP: ALEXI Freedman Status:REG [facility] Y Race: C Location: [place] [address]- Anesthesia Postop Eval I Sum Postop Eval Completion status Anesthesia document: Postop Eval 1 completed: Yes Anesthesia Postop Eval I Summary Anesthesia Postop Eval I Summary: Anesthesia Postop Eval I: Assessment Summary Airway patent Yes 10/04/24 12:28 COVERAGE ANALYST.HBARR Spontaneous unlabored Yes 10/04/24 12:28 COVERAGE ANALYST.HBARR respirations Mental status Awake 10/04/24 12:28 COVERAGE ANALYST.HBARR nausea No 10/04/24 12:28 COVERAGE ANALYST.HBARR Vomiting No 10/04/24 12:28 COVERAGE ANALYST.HBARR Anesthesia Postop Eval I: Fluid Summary Crystalloid volume administer 900 10/04/24 12:28 COVERAGE ANALYST.HBARR (ml) Colloids volume administered ( ml) Blood Product volume administered (ml) Total IV fluid infused 900 10/04/24 12:28 COVERAGE ANALYST.HBARR Anesthesia Postop Eval I: Summary Notes Anesthesia Complication No 10/04/24 12:28 COVERAGE ANALYST.HBARR Anesthesia Complication Comment: Post-operative progress note Anesthesia: Postop Eval II Evaluation Mental status: Awake Pain Level: 0 nausea: No Vomiting: No 10/04/24 1251 Date [facility] Date CC: Signed [facility] Operative Reporton Operative Report [facility] Medical Records Department [address] [place] [address] Operative Report 10/04/24 1234 MR#: [id number] Acct: [id number] Name: SANTY RAZA Rep #: [id number] : 1960 63 From: Murray Guadarrama MD PCP: ALEXI Freedman Status:[facility] Location: [facility]07-1 Procedures Digestive 40xxx-49xxx: [address]108 RPR AA HRN 1ST < 3 NCR/STRN Operative Report (Standard) Operative Information Date of Procedure: 10/04/24 Pre-Operative Diagnosis: Ventral hernia Post-Operative Diagnosis: Same Surgery/Procedure Performed: Ventral hernia repair sales contract administrator: Yes Event Representative: Светлана Sheldon Tasks completed by communications assistant: Closing and Retracting Additional assistant professor of surgery?: No Type of Anesthesia: General and Local RN Documented Start/Stop Times: Operation Date: 10/04/24 11:00 Case Time Into Pre-Op 10/04/24 09:16 Out of Pre-Op 10/04/24 11:01 Anesthesia Start 10/04/24 11:03 Into Room 10/04/24 11:03 Procedure Start 10/04/24 11:24 Procedure Start Time: 11:24 Procedure Stop Time: 12:15 Select all DRAINS/GRAFTS/IMPLANTS that apply: None Special Medications: Clindamycin 900 mg IV Estimated Blood Loss: 10 mL Specimen collected: No Description of surgery: The patient is a 63-year-old female who presents today for a ventral hernia. I performed a previous ventral hernia repair with mesh several years ago. This was done laparoscopically. She presented with a new bulge in the upper abdomen. A CT scan was performed for planning purposes. I felt that this was most likely a new hernia above the previous hernia. I felt that the defect was probably fairly small based on the CAT scan images. I anticipated about 2 cm defect. I recommended open repair with possible mesh versus primary repair. Patient was brought to the operating room today following informed consent. Antibiotics were given and a timeout was performed. She was placed supine on the operative table with arms outstretched on arm boards. General anesthesia was induced. Once adequately sedated the abdomen is then prepped and draped in the usual sterile manner. A small incision was made along the midline in the upper abdomen near the area of the hernia. Bovie electrocautery was then used dissect down through subtendinous tissues after the incision was made using #15 blade. Local anesthetic was also infiltrated prior to the incision. I was able to dissect down to the level of the fascia and immediately encountered the fascial defect. This measured about 2.5 cm. The hernia sac was dissected off of the surrounding structures. It appeared that this fascial defect was just superior to the previous mesh as I could see the anchoring suture from the previous repair at the inferior aspect of this defect. Since this is a fairly small hernia and her fascia seem to be fairly decent quality, I elected to repair this primarily. I ideally did not want to use mesh for several reasons mostly due to the fact that she would be a higher risk of infection if this was placed on an onlay manner. I also felt that there would be difficulty getting purchase of the second mesh if this was placed on top of the previous mesh. Given all of her comorbidities I felt that a primary repair might be the best option. The primary repair was performed using #1 Ethibond performed in a multiple [id number]-uh-[id number] manner. A total of 5 [id number]'s were placed. This closed the fascial defect nicely. The wound was copiously irrigated. Hemostasis was excellent. The wound was closed using 3-0 Vicryl in a subcutaneous as well as a subdermal manner. 4-0 Vicryl was run in the skin. Skin glue was applied as dressing. Abdominal binder was also placed. She was awakened by anesthesia and taken to recovery in good condition A PODIATRY DOCTOR was utilized as a assistant track and field coach. His role included assistance with retraction and closure of the wound Surgical Findings: 2.5 cm fascial defect just above previous mesh Complications Complications: No Admit VTE Documentation VTE Present on Admission: No VTE Mechan Device Prophylaxis: SCD's VTE Pharm Prophylaxis ordered?: No Reason prophylaxis not ordered: Treatment Not Indicated 10/04/24 1244 Cosigner Signature (if applicable): CC: ALEXI Chavez; Dr. Murray Guadarrama MD Signed [facility] Electrocardiogram reportOrde red By: Terrell Deal on 09-22-2024 EKG study [facility] Cardiovascular Services [address] [place] [address] 12 Lead EKG 09/21/24 1009 MR#: [id number] Acct: [id number] Name: SANTY RAZA Rep #:[id number] : 1960 63 From: Terrell Deal MD Attending Dr: Dr. Murray Guadarrama MD Status: PRE SDC Ordering Dr: Florinda Martinez MD Date: 02/07 [place] [facility] Sex: F C Admitted: Test Reason : PRE OP Blood Pressure : */* mmHG Vent. Rate : 91 BPM Atrial Rate : 91 BPM P-R Int : 190 ms QRS Dur : 100 ms QT Int : 352 ms P-R-T Axes : 39 101 70 degrees QTcB Int : 432 ms Normal sinus rhythm Rightward axis Incomplete right bundle branch block Borderline ECG Confirmed by TOYIN WEIR, TERRELL ([id number]), purchase request editor DONALD CHAO ([id number]) on 09/22/2024 5:45:32 AM Referred By: Murray Guadarrama Confirmed By: TERRELL DEAL MD 09/22/24 0545 Date _ Terrell Deal MD CC: YOUTH CORRECTIONS OFFICER-C Deloris Chavez; Dr. Florinda Martinez MD; Dr. Murray Guadarrama MD ~ [facility] Work Phone: MR/PATChayito 09-22-2024 MR/PAT.[facility] Medical Records Department [address] [place] [address] PAT - Anesthesia 09/22/24 1155 MR#: [id number] Acct: [id number] Name: SANTY RAZA Rep #: [id number] : 1960 63 From: Florinda Martinez MD PCP: ALEXI Freedman Status:PRE [facility] [place] Race: C [place] [facility] Pre-Assessment Diagnosis/Proposed Procedure Planned Operative Procedure(s): OPEN VENTRAL HERNIA REPAIR WITH POSS MESH Anesthesia History 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 When Was Last Pacemaker Check QUESTION #4 FULL TEXT: You/Your Family Experience fever (hyperthermia) with Anesthesia Last Oral Intake Last Oral intake: Last Oral Intake NPO since Meds taken in AM with sips of water? Meds patient instructed to take am of surgery PONV PONV - plant breeder scientist: PONV - plant breeder scientist Female Yes 09/20/24 13:51 HX of Motion Sickness No 09/20/24 13:51 HX of N/V After Surgery No 09/20/24 13:51 Non-Smoker No 09/20/24 13:51 Duration of Surgery greater Yes 09/20/24 13:51 than 60 minutes Number of Risk Factors 2 09/20/24 13:51 PONV Score Moderate Risk 09/20/24 13:51 Height Weight Height Weight: Anesthesia: Height Weight Height 5 ft 5 in 09/17/24 13:25 Respiratory Assessment Respiratory Assessment - plant breeder scientist: Respiratory Tract Infection Hx - plant breeder scientist Hx Respiratory Tract Infection No 09/20/24 13:51 STOP Sleep Apnea STOP Sleep Apnea - plant breeder scientist: STOP Sleep Apnea - plant breeder scientist Hx Hypertension Yes: CONTROLLED WITH MEDS 09/20/24 13:51 Hx Sleep Apnea No 09/20/24 13:51 CPAP Yes: DOES NOT USE 10/27/23 13:20 BIPAP No 10/27/23 13:20 Do you snore loudly (louder No 09/20/24 13:51 than talking or can be heard Do you often feel tired/ Yes 09/20/24 13:51 fatigued/ sleepy during daytime? Has anyone observed you stop No 09/20/24 13:51 breathing during sleep? STOP Results Positive 09/20/24 13:51 QUESTION #5 FULL TEXT : Do you snore loudly (louder than talking or can be heard through closed doors)? Tobacco Use History Tobacco Use History - plant breeder scientist: Tobacco Use History - plant breeder scientist Tobacco Use Smoking Status Current every day smoker 09/20/24 13:51 Hx Tobacco Use Yes 09/20/24 13:51 Years Smoking Packs Smoked per Day Smoking Cessation Date was within the last 15 years Hx Smoking Cessation Date Hx Smoking Cessation Counseling Hematologic Medial History Hematologic Hx - plant breeder scientist: Hematologic Medical Hx - plastics worker Hx of Blood Transfusion No 09/20/24 13:51 Hx of Transfusion in last 3 No 09/20/24 13:51 Months Date of Last Transfusion (if within last 3 months) Ever experience any problems No 09/20/24 13:51 with transfusion(s)? Specify any problems Hx of Preganancy in last 3 No 09/20/24 13:51 Months Nurse Filling Out Transfusion DSCHRIBER 09/20/24 13:51 Questions: Date: 09/20/24 09/20/24 13:51 Time: 13:52 09/20/24 13:51 Patient unable to answer at this time (ie. confused, unrespo /Reproduction History /Reproductive History - plant breeder scientist: /Reproductive Hx- plant breeder scientist Hx Now No 09/20/24 13:51 Gestational Age (in weeks): EDC: Hx Hx Para Hx Section SAB No 09/20/24 13:51 PFSH Medical History (Updated 09/20/24 @ 13:59 by Amanda Shaw) Post-menopausal History of steroid therapy Thyroid disease Walker as ambulation aid Injury of head and neck Blackout Difficulty swallowing History of hiatal hernia Asthma History of pain when walking History of edema On home oxygen therapy Pain Loss of hearing Wears hearing aid Wears dentures Wears glasses Restless legs Gastric reflux Hoarseness Chronic cough Smoker Shortness of breath on exertion History of stress test Anxiety Depression Hypothyroid Hypertension Back pain Home Medications ???Medication ???Instructions ???Recorded ???Last Taken ???Type alprazolam 1 mg tablet (Xanax) 1 mg PO DAILY PRN Anxiety 09/22/15 Unknown History lisinopril 10 mg tablet 10 mg PO DAILY 09/22/15 08/29/24 H istory levothyroxine 100 mcg tablet 100 mcg PO DAILY 11 (more content not included)... [facility] 12 Lead EKGon 09-21-2024 12 Lead EKG [facility] Cardiovascular Services [address] [place] [address] 12 Lead EKG 09/21/24 1009 MR#: [id number] Acct: [id number] Name: SANTY RAZA Rep #: [id number] : 1960 63 From: Terrell Deal MD Attending Dr: Dr. Murray Guadarrama MD Status: [place] E [facility] Ordering Dr: Florinda Martinez MD Date: 09/21/24 [place] [facility] Sex: F C Admitted: Test Reason : PRE OP Blood Pressure : */* mmHG Vent. Rate : 91 BPM Atrial Rate : 91 BPM P-R Int : 190 ms QRS Dur : 100 ms QT Int : 352 ms P-R-T Axes : 39 101 70 degrees QTcB Int : 432 ms Normal sinus rhythm Rightward axis Incomplete right bundle branch block Borderline ECG Confirmed by TOYIN WEIR, TERRELL ([id number]), purchase request editor DONALD CHAO ([id number]) on 09/22/2024 5:45:32 AM Referred By: Murray Guadarrama Confirmed By: TERRELL DEAL MD 09/22/24 0545 Date Terrell Deal MD CC: ALEXI Chavez; Dr. Florinda Martinez MD; Dr. Murray Guadarrama MD Signed Normal [facility] Anion gap in Serum or Plasma Ordered By: Florinda Martinez on 09-21-2024 Anion gap [Moles/Vol] 11 mmol/L - [facility] BUN/creatinine ratioOrdered By: Florinda Martinez on 09-21-2024 Urea nitrogen/Creatinine [Mass ratio] 18.2 mg/mg - [facility] Basic Metabolic Profile (BMP )on 09-21-2024 BUN/CRE 18.2 RATIO Normal - [facility] Comment on above: Performed By: #### L 100.0500, L500.2500, L501.9585 ####[facility] [address] [place], [place], [address] Calcium [Mass/Vol] 9.4 mg/dL Normal 7.6-11.0 [facility] Comment on above: Performed By: #### L 100.0500, L500.2500, L501.9520 ####[facility] [address] [place], [address] Chloride [Moles/Vol] 103 mmol/L Normal 98-108 [facility] Comment on above: Performed By: #### L 100.0500, L500.2500, L501.9520 ####[facility] [address] [place], [address] CO2 [Moles/Vol] 24.3 mmol/L Normal 21.0-32.0 [facility] Comment on above: Performed By: #### L 100.0500, L500.2500, L501.9520 ####[facility] [address] [place], [address] Creatinine [Mass/Vol] 0.78 mg/dL Normal 0.70-1.20 [facility] Comment on above: Performed By: #### L 100.0500, L500.2500, L501.9520 ####[facility] [address] [place], [address] GAP 11 Normal 5-15 [facility] Comment on above: Performed By: #### L 100.0500, L500.2500, L501.9520 ####[facility] [address] [place], [address] GFR/1.73 sq M.predicted among non-blacks MDRD (S/P/Bld) [Vol rate/Area] 86 mL/min/{1.73_m2} Normal >60 [facility] Comment on above: Result Comment: mL/m in/1.73m2 CKD-EPI Creatinine Equation (2020) Performed By: #### L 100.0500, L500.2500, L501.9520 ####[facility] [address] [place], [address] Glucose [Mass/Vol] 121 mg/dL High 70-99 [facility] Comment on above: Performed By: #### L 100.0500, L500.2500, L501.9520 ####[facility] [address] [place], [address] Potassium [Moles/Vol] 4.3 mmol/L Normal 3.3-5.1 [facility] Comment on above: Performed By: #### L 100.0500, L500.2500, L501.9520 ####[facility] [address] [place], [address] Sodium [Moles/Vol] 138 mmol/L Normal 133-145 [facility] Comment on above: Performed By: #### L 100.0500, L500.2500, L501.9520 ####[facility] [address] [place], [address] Urea nitrogen [Mass/Vol] 14 mg/dL Normal 4-19 [facility] Comment on above: Performed By: #### L 100.0500, L500.2500, L501.9520 ####[facility] [address] [place], [address] CBC-Complete Blood Cnt No Di ffon 09-21-2024 Erythrocyte distribution width (RBC) [Ratio] 13.5 % Normal 11.6-14.6 [facility] Comment on above: Performed By: #### L 100.0500, L500.2500, L501.9520 ####[facility] [address] [place], [address] Hematocrit (Bld) [Volume fraction] 44.6 % Normal 37-47 [facility] Comment on above: Performed By: #### L 100.0500, L500.2500, L501.9520 ####[facility] [address] [place], [address] Hemoglobin (Bld) [Mass/Vol] 15.4 g/dL High 12.0-15.0 [facility] Comment on above: Performed By: #### L 100.0500, L500.2500, L501.9520 ####[facility] [address] [place], [address] MCH (RBC) [Entitic mass] 31.3 pg Normal 27.0-32.0 [facility] Comment on above: Performed By: #### L 100.0500, L500.2500, L501.9520 ####[facility] [address] [place], [address] MCHC (RBC) [Mass/Vol] 34.5 g/dL Normal 32-36 [facility] Comment on above: Performed By: #### L 100.0500, L500.2500, L501.9520 ####[facility] [address] [place], [address] MCV (RBC) [Entitic vol] 90.7 fL Normal 81-99 [facility] Comment on above: Performed By: #### L 100.0500, L500.2500, L501.9520 ####[facility] [address] [place], [address] Platelet mean volume (Bld) [Entitic vol] 10.9 fL Normal 6.2-12.0 [facility] Comment on above: Performed By: #### L 100.0500, L500.2500, L501.9520 ####[facility] [address] [place], [address] Platelets (Bld) [#/Vol] 247 10*3/uL Normal 150-450 [facility] Comment on above: Performed By: #### L 100.0500, L500.2500, L501.9520 ####[facility] [address] [place], [address] RBC (Bld) [#/Vol] 4.92 10*6/uL Normal 4.2-5.4 [facility] Comment on above: Performed By: #### L 100.0500, L500.2500, L501.9520 ####[facility] [address] [place], [address] RDW SD 45.3 fl High 35.1-43.9 [facility] Comment on above: Performed By: #### L 100.0500, L500.2500, L501.9520 ####[facility] [address] [place], [address] WBC (Bld) [#/Vol] 10.0 10*3/uL Normal 4.4-11.0 [facility] Comment on above: Performed By: #### L 100.0500, L500.2500, L501.9520 ####[facility] [address] [place], [address] Carbon dioxide, total [Moles /volume] in Central venous bloodOrdered By: Florinda Martinez on 09-21-2024 CO2 [Moles/Vol] 24.3 mmol/L 21.0-32.0 [facility] Chloride assayOrdered By: Dominguez Martinez on 09-21-2024 Chloride [Moles/Vol] 103 mmol/L 98-108 [facility] Erythrocyte distribution wid th (RBC) [Ratio]Ordered By: Florinda Martinez on 09-21-2024 Erythrocyte distribution width (RBC) [Entitic vol] 45.3 fL High 35.1-43.9 [facility] Erythrocyte distribution wid th ratioOrdered By: Florinda Martinez on 09-21-2024 Erythrocyte distribution width (RBC) [Ratio] 13.5 % 11.6-14.6 [facility] Erythrocyte distribution wid th standard deviationOrdered By: Florinda Martinez on 09-21-2024 Erythrocyte distribution width (RBC) [Ratio] 45.3 fl High 35.1-43.9 [facility] GFR/1.73 sq M.predicted noemy g non-blacks MDRD (S/P/Bld) [Vol rate/Area]Ordered By: Florinda Martinez on 09-21-2024 Estimated GFR (MDRD) Non-Af Amer 86 >60 [facility] Comment on above: mL/min/1.73m2 CKD-EP I Creatinine Equation (2020) Glomerular filtration rate ( GFR) estimation/1.73 sq m using serum, plasma, or whole bOrdered By: Florinda Martinez on 09-21-2024 GFR/1.73 sq M.predicted among non-blacks MDRD (S/P/Bld) [Vol rate/Area] 86 mL/min/{1.73_m2} >60 [facility] Comment on above: mL/min/1.73m2 CKD-EP I Creatinine Equation (2020) Hematocrit Auto (Bld) [Volum e fraction]Ordered By: Florinda Martinez on 09-21-2024 Hematocrit (Bld) [Volume fraction] 44.6 % 37-47 [facility] Hemoglobin measurementOrdere d By: Florinda Martinez on 09-21-2024 Hemoglobin (Bld) [Mass/Vol] 15.4 g/dL High 12.0-15.0 [facility] MCV (mean corpuscular volume ) determinationOrdered By: Florinda Martinez on 09-21-2024 MCV (RBC) [Entitic vol] 90.7 fL 81-99 [facility] Mean corpuscular hemoglobin (MCH) determinationOrdered By: Florinda Martinez on 09-21-2024 MCH (RBC) [Entitic mass] 31.3 pg 27.0-32.0 [facility] Mean corpuscular hemoglobin concentration (MCHC) determinationOrdered By: Florinda Martinez on 09-21-2024 MCHC (RBC) [Mass/Vol] 34.5 g/dL 32-36 [facility] Mean platelet volume determi nationOrdered By: Florinda Martinez on 09-21-2024 Platelet mean volume (Bld) [Entitic vol] 10.9 fL 6.2-12.0 [facility] Platelet countOrdered By: Dominguez Martinez on 09-21-2024 Platelets (Bld) [#/Vol] 247 10*3/uL 150-450 [facility] Potassium (Unsp spec) [Mass/ Vol]Ordered By: Florinda Martinez on 09-21-2024 Potassium [Moles/Vol] 4.3 mmol/L 3.3-5.1 [facility] Potassium measurement (mass/ volume)Ordered By: Florinda Martinez on 09-21-2024 Potassium (Unsp spec) [Mass/Vol] 4.3 mmol/L 3.3-5.1 [facility] RBC Auto (Bld) [#/Vol]Ordere d By: Florinda Martinez on 09-21-2024 RBC (Bld) [#/Vol] 4.92 10*6/uL 4.2-5.4 [facility] Serum creatinine measurement (mass/volume)Ordered By: Florinda Martinez on 09-21-2024 Creatinine [Mass/Vol] 0.78 mg/dL 0.70-1.20 [facility] Serum glucose measurement (m ass/volume)Ordered By: Florinda Martinez on 09-21-2024 Glucose [Mass/Vol] 121 mg/dL High 70-99 [facility] Serum or plasma calcium mendez urement (mass/volume)Ordered By: Florinda Martinez on 09-21-2024 Calcium [Mass/Vol] 9.4 mg/dL 7.6-11.0 [facility] Serum or plasma urea nitroge n measurement (mass/volume)Ordered By: Florinda Martinez on 09-21-2024 Urea nitrogen [Mass/Vol] 14 mg/dL 4-19 [facility] Sodium levelOrdered By: Florinda Martinez on 09-21-2024 Sodium [Moles/Vol] 138 mmol/L 133-145 [facility] TSH DL <= 0.005 mIU/L QnOrde red By: Florinda Martinez on 09-21-2024 Thyroid Stimulating Hormone (TSH) 1.440 uIU/mL 0.300-4.20 0 [facility] TSH Qn 1.440 uIU/mL 0.300-4.20 0 [facility] Thyroid Stim Hormone (TSH)on 09-21-2024 TSH 1.440 uIU/mL Normal 0.300-4.20 0 [facility] Comment on above: Performed By: #### L 100.0500, L500.2500, L501.9520 ####[facility] [address] [place], [place], [id number] White blood cell (WBC) count Ordered By: Florinda Martinez on 09-21-2024 WBC (Bld) [#/Vol] 10.0 10*3/uL 4.4-11.0 [facility] Surgery Visit Reporton 09-17 Surgery Visit Report [facility] [address] [place] [address] OFFICE VISIT Date of Service: 09/17/24 MR#: [id number] Acct: [id number] Name: SANTY RAZA Rep #: [id number] : 1960 Provider: Dr. Murray hobbs MD Age/Sex: 63/F Location: [facility] Status: Signed Intake Vital Signs 09/01/24 09:17 09/17/24 13:25 Height 5 ft 5 in 5 ft 5 in Weight: 311 lb 311 lb BMI 51.7 51.7 BP 124/76 H 131/64 H Blood Pressure Location Rt brachial Rt brachial Position Sitting Sitting Respiration 18 19 H Pulse 83 84 Pulse Source Monitor Monitor Temp 97.8 F 97.2 F L Temp Source Temporal Temporal Pulse Oximetry (%) 94 97 Oxygen Delivery Method room air room air Oxygen Flow Rate (L/min) 2 Comment nasal cannula used only with activity Intake Visit Reasons: REVIEW CT RESULTS Chief Complaint: review CT results Is patient in pain?: No Allergies amlodipine Allergy (Intermediate, Verified 09/17/24 13:27) Other doxycycline Allergy (Intermediate, Verified 09/17/24 13:27) Other meloxicam Allergy (Intermediate, Verified 09/17/24 13:27) Other Fish Containing Products Allergy (Verified 09/17/24 13:27) Itching peanut Allergy (Verified 09/17/24 13:27) Itching levofloxacin (From Levaquin) Adverse Reaction (Verified 09/17/24 13:27) Other Medications ???Medication ???Instructions ???Recorded ???Confirmed ???Type alprazolam 1 mg tablet (Xanax) 1 mg PO DAILY PRN Anxiety 09/22/15 09/17/24 History lisinopril 10 mg tablet 10 mg PO DAILY 09/22/15 09/17/24 H istory levothyroxine 100 mcg tablet 100 mcg PO DAILY 05/13/16 09/17/24 History furosemide 20 mg tablet 20 mg PO DAILY 11/29/17 09/17/24 H istory lansoprazole 15 mg capsule,delayed 15 mg PO DAILY 11/29/17 09/17/24 History release tizanidine 4 mg tablet 4 mg PO DAILY 11/29/17 09/17/24 Hi story albuterol sulfate 90 mcg/actuation 1 - 2 puff inhalation Q4H PRN TN N 12/05/19 09/17/24 History aerosol inhaler Sob /Or Wheezing amitriptyline 25 mg tablet 25 mg PO DAILY 06/26/21 09/17/24 H istory amlodipine 5 mg tablet 5 mg PO DAILY 06/26/21 09/17/24 Hi story bupropion HCl 150 mg tablet,12 hr 150 mg PO DAILY 06/26/21 09/17/24 History sustained-release cholecalciferol (vitamin D3) 125 125 mcg PO DAILY 06/26/21 09/17/24 History mcg (5,000 unit) tablet ondansetron HCl 4 mg tablet 4 mg PO Q6H PRN Nausea 06/26/21 History oxycodone-acetaminophen 5 mg-325 1 tab PO Q8H PRN pain 3 days #10 0 11/05/22 09/17/24 Rx mg tablet (Percocet) tabs albuterol sulfate 2.5 mg/3 mL 2.5 mg inhalation Q6H PRN 10/27/23 09/17/24 History (0.083 %) solution for nebulization shortness of breath or wheezing benzonatate 100 mg capsule 100 mg PO BID PRN 09/01/24 5 History venlafaxine 150 mg 150 mg PO QAM 09/01/24 09/17/24 Hi story capsule,extended release 24 hr (Effexor XR) PFSH Medical History Loss of hearing Wears hearing aid Wears dentures Wears glasses Restless legs Gastric reflux Hoarseness Chronic cough Smoker Shortness of breath on exertion History of stress test Anxiety Depression Hypothyroid Hypertension Back pain Surgical History H/O hernia repair History of carpal tunnel surgery H/O tubal ligation History of placement of ear tubes Hx of breast reduction, elective Social History Smoking Status: Current every day smoker tobacco type: cigarettes alcohol intake: never HPI HPI HPI: The patient is a 63-year-old female who returns today to discuss results of her recent CT scan to evaluate a hernia several years ago by repaired a periumbilical hernia with mesh. She presented recently to my office with another hernia more superiorly. Was difficult to determine the fascial defect size. CT scan was performed and showed defect about the 3 cm and most ROS General General: Yes weight change; No appetite, fatigue, colon cancer, breast cancer or weakness HEENT HEENT: Yes difficulty swallowing; No eye injury, eye surgery, swollen glands or hoarseness Endo Endocrine: Yes thyroid disease; No diabetes mellitus, thyroid cancer, Hair loss, heat intolerance or cold intolerance Skin Skin: No rash or changing moles Musc Musculoskeletal: Yes back problems; No arthritis, rheumatoid arthritis, gout or joint pain Cardio Cardiovascular: Yes high blood pressure; No murmur, pacemaker, heart disease, atrial fibrillation, heart attack, heart stent, palpitations, shortness of breath with exertion or chest pain Psych Psychiatric: Yes depression and anxiety; No hearing voices Resp Respir (more content not included)... [facility] Visit (BGPWS ) SANTY RAZA ([id number]) 1960 F Date Time Provider Department 09/14/24 7:40 AM DELORIS CHAVEZ During your visit today, we recorded the following information about you: Pulse Respiration Blood pressure 83/minute 16/minute 120/84 Deloris Chavez APRN.CONTENT MANAGEMENT CONSULTANT 09/14/2024 12:04 PM Signed This is a 63 year old female who presents today with: Santy is a 63-year-old female to discuss labs. HISTORY OF PRESENT ILLNESS: Headaches and Nausea: Didn't feel well yesterday. Decided to come in and get repeat CBC. Improvement today. Cough: - Reports remote episode of coughing leading to syncope. - Describes a sensation of something stuck in the throat, triggering persistent coughing. - Cough occasionally produces a liquid-like substance, not phlegm. Notes some tenderness in her face and questions if she may be developing a sinus infection - Denies increased chest pain or dyspnea beyond baseline. Asthma: - Continues to use inhalers and nebulizer. Leukocytosis. Likely from recent pneumonia and steroid use. Improving. PAST MEDICAL HISTORY: PAST MEDICAL HISTORY Diagnosis Date Allergic rhinitis, cause unspecified BMI 45.0-49.9, adult ([facility]) 08/27/2022 Essential hypertension, benign Hypothyroidism 09/26/2015 Mixed conductive and sensorineural hearing loss TRINI on CPAP Other anxiety states Perforated tympanic membrane 03/29/2011 S/P repair of ventral hernia 09/06/2022 Synovitis and tenosynovitis, unspecified Tobacco abuse 03/23/2012 PAST SURGICAL HISTORY Procedure Laterality Date COLONOSCOPY SCRN NOT HIGH RISK 09/13/2020 EGD 10/25/2020 L'SCOPE DX W/WO BRUSHINGS/WASHINGS 09/05/2022 Dr. Guadarrama LIG/TRNSXJ FLP TUBE ABDL/VAG APPR UNI/BI Tubal ligation LX REPAIR RECURRENT VENTRAL HERNIA 09/05/2022 open, w/ mesh. Dr. Guadarrama MYRINGOTOMY ASPIRAND/EUSTACHIAN TUBE NFLTJ ANES Myringotomy/tubes NEUROPLASTY AND/TRANSPOS MEDIAN NRV CARPAL TUNNE Bilateral 01/15/2019 Bilateral carpal tunnel release REDUCTION OF LARGE BREAST 04/23/2016 STEREOTACT BREAST BX EA [facility] PC 09/30/2018 left stereotactic breast biopsy w/vacuum assisted core needle biopsy, specimen radiograph and marker placement ALLERGIES Doxycycline Monohydrate, Hctz [Amiloride-Hydrochlorothiaz rick], Levaquin [Levofloxacin], Meloxicam, and Peanuts MEDICATIONS Current Outpatient Medications Medication Sig ondansetron orally disintegrating (ZOFRAN ODT) 4 mg disintegrating tablet Take 1 tablet by mouth every 8 hours as needed for nausea/vomiting. nystatin (MYCOSTATIN) 100,000 unit/mL suspension Take 5 mL by mouth four times daily for 14 days. 1tsp swish in mouth for several minutes, then swallow (or expectorate) 4 times daily until gone. oxygen-air delivery systems ([employer] OXYGEN [facility]) azithromycin (ZITHROMAX) 250 mg tablet Take 1 tablet by mouth as directed. Take 2 tablets by mouth on Day 1, then 1 tablet by mouth every day thereafter for 4 days lansoprazole (PREVACID) 15 mg capsule Take 1 capsule by mouth once daily. benzonatate (TESSALON PERLES) 100 mg capsule Take 1-2 capsules by mouth three times a day as needed for cough. ALPRAZolam (XANAX) 1 mg tablet Take 1 tablet by mouth two times a day as needed for up to 30 days. buPROPion XL (WELLBUTRIN XL) 300 mg 24 hr tablet Take 1 tablet by mouth once daily. ofloxacin (FLOXIN) 0.3 % otic solution Use 5 Drops in both ears once daily. furosemide (LASIX) 20 mg tablet Take 1 tablet by mouth once daily. If you have increased swelling, okay to increase to 2 tablets daily for 2-3 days. Do not do more than once weekly. benzonatate (TESSALON PERLE) 100 mg capsule Take 2 capsules by mouth three times a day as needed. HYDROcodone-acetaminophen (NORCO) 5-325 mg per tablet Take 1 tablet by mouth every 8 hours as needed for pain. From pain management. Aware to not use with xanax. venlafaxine ER (EFFEXOR XR) 150 mg 24 hr capsule Take 1 capsule by mouth once daily. Start after taking 75 mg X 1 week. Stop the citalopram when starting this dose. loratadine (CLARITIN) 10 mg tablet Take 1 tablet by mouth once daily. levothyroxine (LEVOXYL) 200 mcg tablet Take 1 tablet by mouth once daily. Take on empty stomach. For thyroid albuterol (PROVENTIL) 2.5 mg /3 mL (0.083 %) nebulizer solution Use 3 mL via nebulizer every 6 hours as needed for wheezing/shortness of breath. amitriptyline (ELAVIL) 25 mg tablet Take 1 tablet by mouth daily at bedtime. amLODIPine (NORVASC) 5 mg tablet Take 1 tablet by mouth once daily. budesonide-formoterol (SYMBICORT) 160-4.5 mcg/actuation inhaler Inhale 2 Puffs as instructed two times a day. Ipratropium (ATROVENT HFA) 17 mcg/actuation inhaler Inhale 2 Puffs as instructed every 6 hours. lisinopril (ZESTRIL) 40 mg tablet Take 1 tablet by mouth once daily. atorvastatin (LIPITOR) 10 mg t (more content not included)... Normal [facility] CBC W Auto Differential pane l (Bld)on 09-13-2024 Basophils (Bld) [#/Vol] 0.08 10*3/uL Normal <0.11 [facility] Comment on above: Order Comment: Speci men Type: BLOOD SPECIMENOrdering Facility: [facility] Address: [address] [place] [address] Performed By: #### 5 7021-8 ####[facility] LABCLIA [id number] [place] [address] [place] Basophils/100 WBC (Bld) 0.6 % Normal [facility] Comment on above: Order Comment: Speci men Type: BLOOD SPECIMENOrdering Facility: [facility] Address: [address] [place] [address] Performed By: #### 5 7021-8 ####[facility] LABCLIA [id number] [place] [address] [place] Differential cell count method Nom (Bld) Auto Normal [facility] Comment on above: Order Comment: Speci men Type: BLOOD SPECIMENOrdering Facility: [facility] Address: [address] [place] [address] Performed By: #### 5 7021-8 ####[facility] LABCLIA [id number] [place] [address] [place] Eosinophils (Bld) [#/Vol] 10*3/uL Normal <0.46 [facility] Comment on above: Order Comment: Speci men Type: BLOOD SPECIMENOrdering Facility: [facility] Address: [address] [place] [address] Performed By: #### 5 7021-8 ####[facility] LABCLIA [id number] [address], [place] [address] [place] Eosinophils/100 WBC (Bld) 0.0 % Normal [facility] Comment on above: Order Comment: Speci men Type: BLOOD SPECIMENOrdering Facility: [facility] Address: [address] [place] [address] Performed By: #### 5 7021-8 ####[facility] LABIA [id number] [address], [place] [address] [place] Erythrocyte distribution width (RBC) [Ratio] 14.0 % Normal 11.5-15.0 [facility] Comment on above: Order Comment: Speci men Type: BLOOD SPECIMENOrdering Facility: [facility] Address: [address] [place] [address] Performed By: #### 5 7021-8 ####[facility] LABIA [id number] [address], [place] [address] [place] Hematocrit (Bld) [Volume fraction] 47.9 % High 36.0-46.0 [facility] Comment on above: Order Comment: Speci men Type: BLOOD SPECIMENOrdering Facility: [facility] Address: [address] [place] [address] Performed By: #### 5 7021-8 ####[facility] LABCLIA [id number] [address], [facility] [place] Hemoglobin (Bld) [Mass/Vol] 15.9 g/dL High 11.5-15.5 [facility] Comment on above: Order Comment: Speci men Type: BLOOD SPECIMENOrdering Facility: [facility] Address: [address] [place] [address] Performed By: #### 5 7021-8 ####[facility] LABIA [id number] [place] [address] [place] Immature granulocytes (Bld) [#/Vol] 0.07 10*3/uL Normal <0.10 [facility] Comment on above: Order Comment: Speci men Type: BLOOD SPECIMENOrdering Facility: [facility] Address: [address] [place] [address] Performed By: #### 5 7021-8 ####[facility] LABCLIA [id number] [place] [address] [place] Immature granulocytes/100 WBC (Bld) 0.6 % Normal [facility] Comment on above: Order Comment: Speci men Type: BLOOD SPECIMENOrdering Facility: [facility] Address: [address] [place] [address] Performed By: #### 5 7021-8 ####[facility] LABCLIA [id number] [place] [address] [place] Lymphocytes (Bld) [#/Vol] 3.33 10*3/uL Normal 1.00-4.00 [facility] Comment on above: Order Comment: Speci men Type: BLOOD SPECIMENOrdering Facility: [facility] Address: [address] [place] [address] Performed By: #### 5 7021-8 ####[facility] LABCLIA [id number] [place] [address] [place] Lymphocytes/100 WBC (Bld) 26.6 % Normal [facility] Comment on above: Order Comment: Speci men Type: BLOOD SPECIMENOrdering Facility: [facility] Address: [address] [place] [address] Performed By: #### 5 7021-8 ####[facility] LABCLIA [id number] [place] [address] [place] MCH (RBC) [Entitic mass] 30.9 pg Normal 26.0-34.0 [facility] Comment on above: Order Comment: Speci men Type: BLOOD SPECIMENOrdering Facility: [facility] Address: [address] [place] [address] Performed By: #### 5 7021-8 ####[facility] LABCLIA [id number] [place] [address] [place] MCHC (RBC) [Mass/Vol] 33.2 g/dL Normal 30.5-36.0 [facility] Comment on above: Order Comment: Speci men Type: BLOOD SPECIMENOrdering Facility: [facility] Address: [address] [place] [address] Performed By: #### 5 7021-8 ####[facility] LABCLIA [id number] [place] [address] [place] MCV (RBC) [Entitic vol] 93.2 fL Normal 80.0-100.0 [facility] Comment on above: Order Comment: Speci men Type: BLOOD SPECIMENOrdering Facility: [facility] Address: [address] [place] [address] Performed By: #### 5 7021-8 ####[facility] LABIA [id number] [place] [address] [place] Monocytes (Bld) [#/Vol] 0.84 10*3/uL Normal <0.87 [facility] Comment on above: Order Comment: Speci men Type: BLOOD SPECIMENOrdering Facility: [facility] Address: [address] [place] [address] Performed By: #### 5 7021-8 ####[facility] LABCLIA [id number] [place] [address] [place] Monocytes/100 WBC (Bld) 6.7 % Normal [facility] Comment on above: Order Comment: Speci men Type: BLOOD SPECIMENOrdering Facility: [facility] Address: [address] [place] [address] Performed By: #### 5 7021-8 ####[facility] LABCLIA [id number] [address] [address] [place] Neutrophils (Bld) [#/Vol] 8.22 10*3/uL High 1.45-7.50 [facility] Comment on above: Order Comment: Speci men Type: BLOOD SPECIMENOrdering Facility: [facility] Address: [address] [place] [address] Performed By: #### 5 7021-8 ####[facility] LABCLIA [id number] [place] [address] [place] Neutrophils/100 WBC (Bld) 65.5 % Normal [facility] Comment on above: Order Comment: Speci men Type: BLOOD SPECIMENOrdering Facility: [facility] Address: [address] [place] [address] Performed By: #### 5 7021-8 ####[facility] LABCLIA [id number] [place] [address] [place] Nucleated RBC (Bld) [#/Vol] 10*3/uL Normal <0.01 [facility] Comment on above: Order Comment: Speci men Type: BLOOD SPECIMENOrdering Facility: [facility] Address: [address] [place] [address] Performed By: #### 5 7021-8 ####[facility] LABCLIA [id number] [place] [address] [place] Nucleated RBC/100 WBC (Bld) [Ratio] 0.0 /100 WBC Normal [facility] Comment on above: Order Comment: Speci men Type: BLOOD SPECIMENOrdering Facility: [facility] Address: [address] [place] [address] Performed By: #### 5 7021-8 ####[facility] LABCLIA [id number] [place] [id number] [place] Platelet mean volume (Bld) [Entitic vol] 11.5 fL Normal 9.0-12.7 [facility] Comment on above: Order Comment: Speci men Type: BLOOD SPECIMENOrdering Facility: [facility] Address: [address] [place] [address] Performed By: #### 5 7021-8 ####[facility] LABIA [id number] [place] [address] [place] Platelets (Bld) [#/Vol] 253 10*3/uL Normal 150-400 [facility] Comment on above: Order Comment: Speci men Type: BLOOD SPECIMENOrdering Facility: [facility] Address: [address] [place] [address] Performed By: #### 5 7021-8 ####[facility] LABIA [id number] [place] [address] [place] RBC (Bld) [#/Vol] 5.14 10*6/uL Normal 3.90-5.20 [facility] Comment on above: Order Comment: Speci men Type: BLOOD SPECIMENOrdering Facility: [facility] Address: [address] [place] [address] Performed By: #### 5 7021-8 ####[facility] LABIA [id number] [place] [address] [place] WBC (Bld) [#/Vol] 12.54 10*3/uL High 3.70-11.00 [facility] Comment on above: Order Comment: Speci men Type: BLOOD SPECIMENOrdering Facility: [facility] Address: [address] [place] [address] Performed By: #### 5 7021-8 ####[facility] LABIA [id number] [place] [address] [place] CBC W Auto Differential pane l (Bld)on 09-06-2024 Basophils (Bld) [#/Vol] 0.10 10*3/uL Normal <0.11 [facility] Comment on above: Order Comment: Speci men Type: BLOOD SPECIMENOrdering Facility: [facility] Address: [address] [place] [address] Performed By: #### 5 7021-8 ####[facility] LABCLIA [id number] [place] [address] [place] Basophils/100 WBC (Bld) 0.7 % Normal [facility] Comment on above: Order Comment: Speci men Type: BLOOD SPECIMENOrdering Facility: [facility] Address: [address] [place] [address] Performed By: #### 5 7021-8 ####[facility] LABCLIA [id number] [place] [address] [place] Differential cell count method Nom (Bld) Auto Normal [facility] Comment on above: Order Comment: Speci men Type: BLOOD SPECIMENOrdering Facility: [facility] Address: [address] [place] [address] Performed By: #### 5 7021-8 ####[facility] LABCLIA [id number] [place] [address] [place] Eosinophils (Bld) [#/Vol] 10*3/uL Normal <0.46 [facility] Comment on above: Order Comment: Speci men Type: BLOOD SPECIMENOrdering Facility: [facility] Address: [address] [place] [address] Performed By: #### 5 7021-8 ####[facility] LABCLIA [id number] [place] [address] [place] Eosinophils/100 WBC (Bld) 0.0 % Normal [facility] Comment on above: Order Comment: Speci men Type: BLOOD SPECIMENOrdering Facility: [facility] Address: [address] [place] [address] Performed By: #### 5 7021-8 ####[facility] LABCLIA [id number] [place] [address] [place] Erythrocyte distribution width (RBC) [Ratio] 14.0 % Normal 11.5-15.0 [facility] Comment on above: Order Comment: Speci men Type: BLOOD SPECIMENOrdering Facility: [facility] Address: [address] [place] [address] Performed By: #### 5 7021-8 ####[facility] LABCLIA [id number] [place] [address] [place] Hematocrit (Bld) [Volume fraction] 50.8 % High 36.0-46.0 [facility] Comment on above: Order Comment: Speci men Type: BLOOD SPECIMENOrdering Facility: [facility] Address: [address] [place] [address] Performed By: #### 5 7021-8 ####[facility] LABCLIA [id number] [place] [address] [place] Hemoglobin (Bld) [Mass/Vol] 16.7 g/dL High 11.5-15.5 [facility] Comment on above: Order Comment: Speci men Type: BLOOD SPECIMENOrdering Facility: [facility] Address: [address] [place] [address] Performed By: #### 5 7021-8 ####[facility] LABIA [id number] [place] [address] [place] Immature granulocytes (Bld) [#/Vol] 0.10 10*3/uL High <0.10 [facility] Comment on above: Order Comment: Speci men Type: BLOOD SPECIMENOrdering Facility: [facility] Address: [address] [place] [address] Performed By: #### 5 7021-8 ####[facility] LABCLIA [id number] [place] [address] [place] Immature granulocytes/100 WBC (Bld) 0.7 % Normal [facility] Comment on above: Order Comment: Speci men Type: BLOOD SPECIMENOrdering Facility: [facility] Address: [address] [place], [place] [address] Performed By: #### 5 7021-8 ####[facility] LABCLIA [id number] [place] [address] [place] Lymphocytes (Bld) [#/Vol] 3.68 10*3/uL Normal 1.00-4.00 [facility] Comment on above: Order Comment: Speci men Type: BLOOD SPECIMENOrdering Facility: [facility] Address: [address] [place] [address] Performed By: #### 5 7021-8 ####[facility] LABCLIA [id number] [place] [address] [place] Lymphocytes/100 WBC (Bld) 25.6 % Normal [facility] Comment on above: Order Comment: Speci men Type: BLOOD SPECIMENOrdering Facility: [facility] Address: [address] [place] [address] Performed By: #### 5 7021-8 ####[facility] LABCLIA [id number] [place] [address] [place] MCH (RBC) [Entitic mass] 31.3 pg Normal 26.0-34.0 [facility] Comment on above: Order Comment: Speci men Type: BLOOD SPECIMENOrdering Facility: [facility] Address: [address] [place] [address] Performed By: #### 5 7021-8 ####[facility] LABCLIA [id number] [place] [address] [place] MCHC (RBC) [Mass/Vol] 32.9 g/dL Normal 30.5-36.0 [facility] Comment on above: Order Comment: Speci men Type: BLOOD SPECIMENOrdering Facility: [facility] Address: [address] [place] [address] Performed By: #### 5 7021-8 ####[facility] LABCLIA [id number] [address] [id number] [address] [place] MCV (RBC) [Entitic vol] 95.1 fL Normal 80.0-100.0 [facility] Comment on above: Order Comment: Speci men Type: BLOOD SPECIMENOrdering Facility: [facility] Address: [address] [place] [address] Performed By: #### 5 7021-8 ####[facility] LABCLIA [id number] [place] [address] [place] Monocytes (Bld) [#/Vol] 0.91 10*3/uL High <0.87 [facility] Comment on above: Order Comment: Speci men Type: BLOOD SPECIMENOrdering Facility: [facility] Address: [address] [place] [address] Performed By: #### 5 7021-8 ####[facility] LABCLIA [id number] [place] [address] [place] Monocytes/100 WBC (Bld) 6.3 % Normal [facility] Comment on above: Order Comment: Speci men Type: BLOOD SPECIMENOrdering Facility: [facility] Address: [address] [place] [address] Performed By: #### 5 7021-8 ####[facility] LABCLIA [id number] [address], [place] [address] [place] Neutrophils (Bld) [#/Vol] 9.59 10*3/uL High 1.45-7.50 [facility] Comment on above: Order Comment: Speci men Type: BLOOD SPECIMENOrdering Facility: [facility] Address: [address] [place] [address] Performed By: #### 5 7021-8 ####[facility] LABCLIA [id number] [place] [address] [place] Neutrophils/100 WBC (Bld) 66.7 % Normal [facility] Comment on above: Order Comment: Speci men Type: BLOOD SPECIMENOrdering Facility: [facility] Address: [address] [place] [address] Performed By: #### 5 7021-8 ####[facility] LABCLIA [id number] [place] [address] [place] Nucleated RBC (Bld) [#/Vol] 10*3/uL Normal <0.01 [facility] Comment on above: Order Comment: Speci men Type: BLOOD SPECIMENOrdering Facility: [facility] Address: [address] [place] [address] Performed By: #### 5 7021-8 ####[facility] LABCLIA [id number] [place] [address] [place] Nucleated RBC/100 WBC (Bld) [Ratio] 0.0 /100 WBC Normal [facility] Comment on above: Order Comment: Speci men Type: BLOOD SPECIMENOrdering Facility: [facility] Address: [address] [place] [address] Performed By: #### 5 7021-8 ####[facility] LABIA [id number] [place] [address] [place] Platelet mean volume (Bld) [Entitic vol] 12.1 fL Normal 9.0-12.7 [facility] Comment on above: Order Comment: Speci men Type: BLOOD SPECIMENOrdering Facility: [facility] Address: [address] [place] [address] Performed By: #### 5 7021-8 ####[facility] LABCLIA [id number] [place] [id number] [place] Platelets (Bld) [#/Vol] 264 10*3/uL Normal 150-400 [facility] Comment on above: Order Comment: Speci men Type: BLOOD SPECIMENOrdering Facility: [facility] Address: [address] [place] [address] Performed By: #### 5 7021-8 ####[facility] LABCLIA [id number] [place] [address] [place] RBC (Bld) [#/Vol] 5.34 10*6/uL High 3.90-5.20 [facility] Comment on above: Order Comment: Speci men Type: BLOOD SPECIMENOrdering Facility: [facility] Address: [address] [place] [address] Performed By: #### 5 7021-8 ####[facility] LABCLIA [id number] [place] [address] [place] WBC (Bld) [#/Vol] 14.38 10*3/uL High 3.70-11.00 [facility] Comment on above: Order Comment: Speci men Type: BLOOD SPECIMENOrdering Facility: [facility] Address: [address] [place] [address] Performed By: #### 5 7021-8 ####[facility] LABCLIA [id number] [place] [address] [place] XR CHEST 2V FRONTAL/LATon XR CHEST 2V FRONTAL/LAT * * *Final Report* * * DATE OF EXAM: Sep 06 2024 8:13AM WOX 5291 - XR CHEST 2V FRONTAL/LAT / PROCEDURE REASON: Bacterial pneumonia * * * * Physician Interpretation * * * * EXAMINATION: CHEST RADIOGRAPH (2 VIEW FRONTAL and LATERAL) CLINICAL HISTORY: Bacterial pneumonia MQ: XC2_6 EXAM DATE/TIME: 09/06/2024 8:13 AM COMPARISON: Chest x-ray on 08/23/2024 RESULT: Lines, tubes, and devices: None. Lungs and pleura: Stable linear opacity overlying the left midlung. No consolidation. No lung mass. No pleural effusion. No pneumothorax. Cardiomediastinal silhouette: The cardiac silhouette and mediastinal contour have been stable. Bones and soft tissues: The spine shows degenerative changes. IMPRESSION: Stable linear opacity overlying the left midlung. Manager Target: PSCB Transcribe Date/Time: Sep 06 2024 1:08P Dictated by : PAULETTE PERKINS MD This examination was interpreted and the report reviewed and electronically signed by: PAULETTE PERKINS MD on Sep 06 2024 1:10PM EST [id number] Normal [facility] XR Chest PA and Lateralon IMPRESSION: Stable linear opacity overlying the left midlung. Manager Target: ARIA Transcribe Date/Time: Sep 06 2024 1:08P Dictated by : PAULETTE PERKINS MD This examination was interpreted and the report reviewed and electronically signed by: PAULETTE PERKINS MD on Sep 06 2024 1:10PM EST DIVISION OF RADIOLOGY * * *Final Report* * * DATE OF EXAM: Sep 06 2024 8:13AM WOX 5291 - XR CHEST 2V FRONTAL/LAT / PROCEDURE REASON: Bacterial pneumonia * * * * Physician Interpretation * * * * EXAMINATION: CHEST RADIOGRAPH (2 VIEW FRONTAL & LATERAL) CLINICAL HISTORY: Bacterial pneumonia MQ: XC2_6 EXAM DATE/TIME: 09/06/2024 8:13 AM COMPARISON: Chest x-ray on 08/23/2024 RESULT: Lines, tubes, and devices: None. Lungs and pleura: Stable linear opacity overlying the left midlung. No consolidation. No lung mass. No pleural effusion. No pneumothorax. Cardiomediastinal silhouette: The cardiac silhouette and mediastinal contour have been stable. Bones and soft tissues: The spine shows degenerative changes. DIVISION OF RADIOLOGY Provider, [facility] - 09/06/2024 * * *Final Report* * * DATE OF EXAM: Sep 06 2024 8:13AM WOX 5291 - XR CHEST 2V FRONTAL/LAT / PROCEDURE REASON: Bacterial pneumonia * * * * Physician Interpretation * * * * EXAMINATION: CHEST RADIOGRAPH (2 VIEW FRONTAL & LATERAL) CLINICAL HISTORY: Bacterial pneumonia MQ: XC2_6 EXAM DATE/TIME: 09/06/2024 8:13 AM COMPARISON: Chest x-ray on 08/23/2024 RESULT: Lines, tubes, and devices: None. Lungs and pleura: Stable linear opacity overlying the left midlung. No consolidation. No lung mass. No pleural effusion. No pneumothorax. Cardiomediastinal silhouette: The cardiac silhouette and mediastinal contour have been stable. Bones and soft tissues: The spine shows degenerative changes. IMPRESSION IMPRESSION: Stable linear opacity overlying the left midlung. Manager Target: PSCB Transcribe Date/Time: Sep 06 2024 1:08P Dictated by : PAULETTE PERKINS MD This examination was interpreted and the report reviewed and electronically signed by: PAULETTE PERKINS MD on Sep 06 2024 1:10PM EST [facility] Radiology Study observation (narrative) [facility] XR Chest PA and LateralOrder ed By: [facility]cf Provider on 09-06-2024 [facility] Abdomen/Pelvis WITH Contrast on 09-03-2024 Abdomen/Pelvis WITH Contrast [facility] Imaging Services [address] [place] [address] Abdomen/Pelvis WITH Contrast MR#: [id number] Acct: [id number] Name: SANTY RAZA Rep #: [id number] : 1960 F 63 From: Gulshan Santos MD PCP: ALEXI Freedman Status: REG CLI Study: Abdomen/Pelvis WITH Contrast Date of Exam: Exam# [id number] Ordering Dr: Murray Guadarrama MD PROCEDURE: ABDOMEN/PELVIS WITH CONTRAST (CTABDPELW), 09/03/2024 REASON FOR EXAM: ABD PAIN/HERNIA TECHNIQUE: CT abdomen and pelvis was performed without IV contrast. Multiplanar reformats were generated. RADIATION DOSE SUMMARY: CTDlvol: 24.18 mGy DLP: 1153.67 mGycm One or more dose reduction techniques were used (e.g., Automated exposure control, adjustment of the mA and/or kV according to patient size, use of iterative reconstruction technique). COMPARISON: None. Exam dated 06/26/2021 could not be retrieved at the time of dictation. FINDINGS: Note that evaluation of the abdominopelvic viscera, vasculature, and remaining soft tissues is limited in the absence of IV contrast. Note the exam is slightly limited by generalized photon starvation. Note that the inferior pubic rami are partially excluded from the field of view inferiorly, with resultant exclusion of a portion of the inferior most anal canal, perineum, and surrounding tissues. Peritoneal compartment is imaged in its entirety. Lung bases: Atelectasis/scarring. Chronic granulomatous disease. Elevated LEFT hemidiaphragm. Liver: Unremarkable. Spleen: Granuloma. Gallbladder: Unremarkable. Pancreas: Unremarkable. Adrenals: Unremarkable. Kidneys: Unremarkable. Bowel: No bowel dilatation or convincing inflammation. Findings related to the anterior wall of the transverse colon as below. Top-normal caliber of the appendix without convincing inflammation. Lymph nodes: Unremarkable. Vasculature: Mild calcific atherosclerosis.. Peritoneum: Unremarkable. Bladder: Underdistended and suboptimally evaluated, grossly unremarkable. Reproductive Organs: Unremarkable. Body Wall: Small/moderate midline supraumbilical hernia contains almost exclusively fat, with neck measuring 3.1 x 1.7 cm. A minute portion of the anterior wall of the transverse colon is positioned within the hernia neck. Additional small fat containing umbilical hernia present more inferiorly, superimposed on rectus diastasis. Bones: L5-S1 facet arthropathy with mild anterolisthesis. Few punctate sclerotic presumed bone islands in the absence of known malignancy. Trace lumbar levoscoliosis. CT/Abdomen/Pelvis WITH Contrast IMPRESSION: 1. No acute noncontrast findings. 2. Additional description as above. Reading Location: [id number] CC: ALEXI Chavez; Dr. Murray Guadarrama MD Manager Target: Signed Normal [facility] Surgery Visit Reporton 09-01 Surgery Visit Report [facility] [address] [place] [address]. [address] [place] [address] OFFICE VISIT Date of Service: 09/01/24 MR#: [id number] Acct: [id number] Name: SANTY RAZA Rep #: [id number] : 1960 Provider: Dr. Murray hobbs MD Age/Sex: 63/F Location: [facility] Status: Signed Intake Vital Signs 06/21/24 11:37 08/30/24 09:39 09/01/24 09:17 Height 5 ft 5 in 5 ft 5 in 5 ft 5 in Weight: 311 lb BMI 51.7 BP 124/76 H Blood Pressure Location Rt brachial Position Sitting Respiration 18 Pulse 83 Pulse Source Monitor Temp 97.8 F Temp Source Temporal Pulse Oximetry (%) 94 Oxygen Delivery Method room air Intake Visit Reasons: HERNIA REPAIR Chief Complaint: hernia repair Is patient in pain?: No Allergies amlodipine Allergy (Intermediate, Verified 09/01/24 09:22) Other doxycycline Allergy (Intermediate, Verified 09/01/24 09:22) Other meloxicam Allergy (Intermediate, Verified 09/01/24 09:22) Other Fish Containing Products Allergy (Verified 09/01/24 09:22) Itching peanut Allergy (Verified 09/01/24 09:22) Itching levofloxacin (From Levaquin) Adverse Reaction (Verified 09/01/24 09:22) Other Medications ???Medication ???Instructions ???Recorded ???Confirmed ???Type alprazolam 1 mg tablet (Xanax) 1 mg PO DAILY PRN Anxiety 09/22/15 09/01/24 History lisinopril 10 mg tablet 10 mg PO DAILY 09/22/15 09/01/24 H istory levothyroxine 100 mcg tablet 100 mcg PO DAILY 05/13/16 09/01/24 History furosemide 20 mg tablet 20 mg PO DAILY 11/29/17 09/01/24 H istory lansoprazole 15 mg capsule,delayed 15 mg PO DAILY 11/29/17 09/01/24 History release tizanidine 4 mg tablet 4 mg PO DAILY 11/29/17 09/01/24 Hi story albuterol sulfate 90 mcg/actuation 1 - 2 puff inhalation Q4H PRN TN N 12/05/19 09/01/24 History aerosol inhaler Sob /Or Wheezing amitriptyline 25 mg tablet 25 mg PO DAILY 06/26/21 09/01/24 H istory amlodipine 5 mg tablet 5 mg PO DAILY 06/26/21 09/01/24 Hi story bupropion HCl 150 mg tablet,12 hr 150 mg PO DAILY 06/26/21 09/01/24 History sustained-release cholecalciferol (vitamin D3) 125 125 mcg PO DAILY 06/26/21 09/01/24 History mcg (5,000 unit) tablet ondansetron HCl 4 mg tablet 4 mg PO Q6H PRN Nausea 06/26/21 History oxycodone-acetaminophen 5 mg-325 1 tab PO Q8H PRN pain 3 days #10 0 11/05/22 09/01/24 Rx mg tablet (Percocet) tabs albuterol sulfate 2.5 mg/3 mL 2.5 mg inhalation Q6H PRN 10/27/23 09/01/24 History (0.083 %) solution for nebulization shortness of breath or wheezing benzonatate 100 mg capsule 100 mg PO BID PRN 09/01/24 5 History venlafaxine 150 mg 150 mg PO QAM 09/01/24 09/01/24 Hi story capsule,extended release 24 hr (Effexor XR) [facility] Medical History Loss of hearing Wears hearing aid Wears dentures Wears glasses Restless legs Gastric reflux Hoarseness Chronic cough Smoker Shortness of breath on exertion History of stress test Anxiety Depression Hypothyroid Hypertension Back pain Surgical History H/O hernia repair History of carpal tunnel surgery H/O tubal ligation History of placement of ear tubes Hx of breast reduction, elective Social History Smoking Status: Current every day smoker tobacco type: cigarettes alcohol intake: never HPI HPI HPI: The patient is a 63-year-old female who is known to me for previous ventral hernia repair with mesh performed back in 2022. This was a fairly sizable hernia. A laparoscopic/open hybrid surgery was performed using mesh. She states that she was doing well up until about a month ago and she noticed a bulge in the upper right abdomen. This seems to be away from her primary repair but this sounds concerning for a recurrent hernia. She states that really does not cause her much pain or problems. She does have a smoking history and is on oxygen. She presents today for evaluation. ROS General General: Yes weight change; No appetite, fatigue, colon cancer, breast cancer or weakness HEENT HEENT: Yes difficulty swallowing; No eye injury, eye surgery, swollen glands or hoarseness Endo Endocrine: Yes thyroid disease; No diabetes mellitus, thyroid cancer, Hair loss, heat intolerance or cold intolerance Skin Skin: No rash or changing moles Musc Musculoskeletal: Yes back problems; No arthritis, rheumatoid arthritis, gout or joint pain Cardio Cardiovascular: Yes high blood pressure; No murmur, pacemaker, heart disease, atrial fibrillation, heart attack, heart stent, palpitations, shortness of breath with exertion or chest pain Psych Psychiatri (more content not included)... Normal [facility] Fluor Guidance for Spine Inj on 08-30-2024 Fluor Guidance for Spine Inj [facility] Imaging Services [address] [place] [address] Fluor Guidance for Spine Inj MR#: [id number] Acct: [id number] Name: SANTY RAZA Rep #: [id number] : 1960 F 63 From: Matias Singh i, DO PCP: ALEXI Freedman Status: [facility] Study: Fluor Guidance for Spine Inj Date of Exam: Exam# [id number] Ordering Dr: Tito Felipe MD PROCEDURE: Fluoroscopy use. 08/30/2024 REASON FOR EXAM: BLOCK, CERVICAL RT TECHNIQUE: 2 intraoperative spot images were obtained during right cervical block. COMPARISON: None. FINDINGS: 2 intraoperative spot images were obtained during right cervical block. 11.3 seconds of fluoroscopic time utilized. A needle tip projects over the lower cervical spine on the provided images. RAD/Fluor Guidance for Spine Inj IMPRESSION: Documentation of fluoroscopy use during cervical block. Please see the procedure note for details. Reading Location: [facility] CC: [employer] OFFICERGary Chavez; Dr. Tito Felipe MD Manager Target: Signed [facility] Operative Reporton Operative Report [facility] Medical Records Department [address] [place] [address] Operative Report 08/30/24 1043 MR#: [id number] Acct: [id number] Name: SANTY RAZA Rep #: [id number] : 1960 63 From: Tito Felipe MD PCP: ALEXI Freedman Status:[facility] Location: [facility]18-1 Operative Report (Standard) Operative Information Date of Procedure: 08/30/24 Pre-Operative Diagnosis: Cervical radiculopathy, cervical spinal stenosis Post-Operative Diagnosis: Cervical radiculopathy, cervical spinal stenosis Surgery/Procedure Performed: Diagnostic/therapeutic cervical epidural steroid injection interlaminar at C7-T1 under fluoroscopic guidance sales contract administrator: No Type of Anesthesia: Local RN Documented Start/Stop Times: Operation Date: 08/30/24 10:20 Case Time Into Pre-Op 08/30/24 09:26 Procedure Start Time: 10:44 Procedure Stop Time: :44 Select all DRAINS/GRAFTS/IMPLANTS that apply: None Estimated Blood Loss: 0 Specimen collected: No Description of surgery: ANESTHESIA: Local. BLOOD LOSS: Minimal. COMPLICATIONS: None. DESCRIPTION OF PROCEDURE: History and physical of today was reviewed. Risks and benefits of the procedure were explained. The patient understood and agreed to proceed. Informed consent was obtained. IV inserted per routine protocol. The patient was taken to the operating room and placed in the prone position with a pillow positioned underneath the chest. The neck area was prepped and draped in a sterile fashion using iodine x3. Under fluoroscopy guidance on an AP view, the C7-T1 interlaminar space was identified. The skin and subcutaneous tissue was anesthetized with approximately 3 mL of 1% lidocaine using a 25-gauge regular needle. Under direct visualization on fluoroscopy, on AP view, using a 20-gauge 3-1/2-inch Tuohy needle, the needle was advanced via the skin. The tip of the needle was maneuvered and directed towards the interlaminar space at C7-T1. Loss of resistance technique was carried to air. Loss of resistance technique was encountered. Once encountered, after negative aspiration for blood and CSF, a total of 1 mL of contrast was injected to confirm correct placement of the needle as well as cephalocaudal spread of the contrast. Confirmation was obtained on AP as well as lateral view. After repeated negative aspiration and confirmation, a total of 3 mL of preservative-free normal saline and 80 mg of Depo-Medrol was injected easily. The needle was then removed intact. The patient experienced no sign or symptoms of intrathecal or intravascular injection. The patient experienced no paresthesia. The procedure was completed without any apparent difficulty or any complications. The patient appeared to tolerate it well. ASSESSMENT AND PLAN: This is a 63-year-old female with cervical radiculopathy, cervical spinal stenosis, status post cervical epidural steroid injection interlaminar at C7-T1 under fluoroscopic guidance, patient will continue her current medications, patient will follow-up in approximately 2 weeks for reevaluation. Surgical Findings: 1 Complications Complications: No Admit VTE Documentation VTE Present on Admission: No VTE Mechan Device Prophylaxis: None VTE Pharm Prophylaxis ordered?: No 08/30/24 1046 Cosigner Signature (if applicable): CC: ALEXI Chavez; Dr. Tito Felipe MD Signed Normal [facility] CBC W Auto Differential pane l (Bld)on 08-24-2024 Basophils (Bld) [#/Vol] 0.11 10*3/uL High <0.11 [facility] Comment on above: Order Comment: Speci men Type: BLOOD SPECIMENOrdering Facility: [facility] Address: [address] [place] [address] Performed By: #### 5 7021-8, [id number] ####[facility] LABCLIA [id number] [place] [address] [place] Basophils/100 WBC (Bld) 0.7 % Normal [facility] Comment on above: Order Comment: Speci men Type: BLOOD SPECIMENOrdering Facility: [facility] Address: [address] [place] [address] Performed By: #### 5 7021-8, [id number] ####[facility] LABCLIA [id number] [place] [address] [place] Differential cell count method Nom (Bld) Auto Normal [facility] Comment on above: Order Comment: Speci men Type: BLOOD SPECIMENOrdering Facility: [facility] Address: [address] [place] [address] Performed By: #### 5 7021-8, [id number] ####[facility] LABCLIA [id number] [place] [address] [place] Eosinophils (Bld) [#/Vol] 10*3/uL Normal <0.46 [facility] Comment on above: Order Comment: Speci men Type: BLOOD SPECIMENOrdering Facility: [facility] Address: [address] [place] [address] Performed By: #### 5 7021-8, [id number] ####[facility] LABCLIA [id number] [address] [address] [place] Eosinophils/100 WBC (Bld) 0.0 % Normal [facility] Comment on above: Order Comment: Speci men Type: BLOOD SPECIMENOrdering Facility: [facility] Address: [address] [place] [address] Performed By: #### 5 7021-8, [id number] ####[facility] LABCLIA [id number] [place] [address] [place] Erythrocyte distribution width (RBC) [Ratio] 13.5 % Normal 11.5-15.0 [facility] Comment on above: Order Comment: Speci men Type: BLOOD SPECIMENOrdering Facility: [facility] Address: [address] [place] [address] Performed By: #### 5 7021-8, [id number] ####[facility] LABCLIA [id number] [place] [address] [place] Hematocrit (Bld) [Volume fraction] 48.0 % High 36.0-46.0 [facility] Comment on above: Order Comment: Speci men Type: BLOOD SPECIMENOrdering Facility: [facility] Address: [address] [place] [address] Performed By: #### 5 7021-8, [id number] ####[facility] LABCLIA [id number] [place] [id number] [place] Hemoglobin (Bld) [Mass/Vol] 16.4 g/dL High 11.5-15.5 [facility] Comment on above: Order Comment: Speci men Type: BLOOD SPECIMENOrdering Facility: [facility] Address: [address] [place] [address] Performed By: #### 5 7021-8, [id number] ####[facility] LABCLIA [id number] [facility] [address], [place] [address] [place] Immature granulocytes (Bld) [#/Vol] 0.14 10*3/uL High <0.10 [facility] Comment on above: Order Comment: Speci men Type: BLOOD SPECIMENOrdering Facility: [facility] Address: [address] [place] [address] Performed By: #### 5 7021-8, [id number] ####[facility] LABCLIA [id number] [facility] [address], [place] [address] [place] Immature granulocytes/100 WBC (Bld) 0.9 % Normal [facility] Comment on above: Order Comment: Speci men Type: BLOOD SPECIMENOrdering Facility: [facility] Address: [address] [place] [address] Performed By: #### 5 7021-8, [id number] ####[facility] LABCLIA [id number] [address], [place] [address] [place] Lymphocytes (Bld) [#/Vol] 5.02 10*3/uL High 1.00-4.00 [facility] Comment on above: Order Comment: Speci men Type: BLOOD SPECIMENOrdering Facility: [facility] Address: [address] [place] [address] Performed By: #### 5 7021-8, [id number] ####[facility] LABCLIA [id number] [facility] [address], [place] [address] [place] Lymphocytes/100 WBC (Bld) 33.5 % Normal [facility] Comment on above: Order Comment: Speci men Type: BLOOD SPECIMENOrdering Facility: [facility] Address: [address] [place] [address] Performed By: #### 5 7021-8, [id number] ####[facility] LABCLIA [id number] [place] [address] [place] MCH (RBC) [Entitic mass] 31.3 pg Normal 26.0-34.0 [facility] Comment on above: Order Comment: Speci men Type: BLOOD SPECIMENOrdering Facility: [facility] Address: [address] [place] [address] Performed By: #### 5 7021-8, [id number] ####[facility] LABCLIA [id number] [place] [address] [place] MCHC (RBC) [Mass/Vol] 34.2 g/dL Normal 30.5-36.0 [facility] Comment on above: Order Comment: Speci men Type: BLOOD SPECIMENOrdering Facility: [facility] Address: [address] [place] [address] Performed By: #### 5 7021-8, [id number] ####[facility] LABCLIA [id number] [place] [address] [place] MCV (RBC) [Entitic vol] 91.6 fL Normal 80.0-100.0 [facility] Comment on above: Order Comment: Speci men Type: BLOOD SPECIMENOrdering Facility: [facility] Address: [address] [place] [address] Performed By: #### 5 7021-8, [id number] ####[facility] LABCLIA [id number] [place] [address] [place] Monocytes (Bld) [#/Vol] 0.91 10*3/uL High <0.87 [facility] Comment on above: Order Comment: Speci men Type: BLOOD SPECIMENOrdering Facility: [facility] Address: [address] [place] [address] Performed By: #### 5 7021-8, [id number] ####[facility] LABCLIA [id number] [place] [address] [place] Monocytes/100 WBC (Bld) 6.1 % Normal [facility] Comment on above: Order Comment: Speci men Type: BLOOD SPECIMENOrdering Facility: [facility] Address: [address] [place] [id number] Performed By: #### 5 7021-8, [id number] ####[facility] LABCLIA [id number] [facility] [address] [place] [address] [place] Neutrophils (Bld) [#/Vol] 8.79 10*3/uL High 1.45-7.50 [facility] Comment on above: Order Comment: Speci men Type: BLOOD SPECIMENOrdering Facility: [facility] Address: [address] [place] [address] Performed By: #### 5 7021-8, [id number] ####[facility] LABCLIA [id number] [facility] [address], [place] [address] [place] Neutrophils/100 WBC (Bld) 58.8 % Normal [facility] Comment on above: Order Comment: Speci men Type: BLOOD SPECIMENOrdering Facility: [facility] Address: [address] [place] [address] Performed By: #### 5 7021-8, [id number] ####[facility] LABCLIA [id number] [facility] [address], [place] [address] [place] Nucleated RBC (Bld) [#/Vol] 10*3/uL Normal <0.01 [facility] Comment on above: Order Comment: Speci men Type: BLOOD SPECIMENOrdering Facility: [facility] Address: [address] [place], [place] [address] Performed By: #### 5 7021-8, [id number] ####[facility] LABCLIA [id number] [facility] [place] [id number] [place] Nucleated RBC/100 WBC (Bld) [Ratio] 0.0 /100 WBC Normal [facility] Comment on above: Order Comment: Speci men Type: BLOOD SPECIMENOrdering Facility: [facility] Address: [address] [place], [place] [address] Performed By: #### 5 7021-8, [id number] ####[facility] LABCLIA [id number] [facility] [address] [place] [address] [place] Platelet mean volume (Bld) [Entitic vol] 11.4 fL Normal 9.0-12.7 [facility] Comment on above: Order Comment: Speci men Type: BLOOD SPECIMENOrdering Facility: [facility] Address: [address] [place] [address] Performed By: #### 5 7021-8, [id number] ####[facility] LABCLIA [id number] [facility] [address], [place] [address] [place] Platelets (Bld) [#/Vol] 279 10*3/uL Normal 150-400 [facility] Comment on above: Order Comment: Speci men Type: BLOOD SPECIMENOrdering Facility: [facility] Address: [address] [place] [address] Performed By: #### 5 7021-8, [id number] ####[facility] LABCLIA [id number] [address], [place] [address] [place] Platelets Estimate (Bld) [#/Vol] Adequate Normal [facility] Comment on above: Order Comment: Speci men Type: BLOOD SPECIMENOrdering Facility: [facility] Address: [address] [place] [address] Performed By: #### 5 7021-8, [id number] ####[facility] LABCLIA [id number] [facility] [address] [place] [address] [place] Polychromasia LM Ql (Bld) Slight Normal [facility] Comment on above: Order Comment: Speci men Type: BLOOD SPECIMENOrdering Facility: [facility] Address: [facility] [place] [address] Performed By: #### 5 7021-8, [id number] ####[facility] LABCLIA [id number] [facility] [place] [address] [place] RBC (Bld) [#/Vol] 5.24 10*6/uL High 3.90-5.20 [facility] Comment on above: Order Comment: Speci men Type: BLOOD SPECIMENOrdering Facility: [facility] Address: [address] [place] [address] Performed By: #### 5 7021-8, [id number] ####[facility] LABCLIA [id number] [place] [address] [place] RED CELL MORPH Reviewed: unremarkable Normal [facility] Comment on above: Order Comment: Speci men Type: BLOOD SPECIMENOrdering Facility: [facility] Address: [address] [place] [address] Performed By: #### 5 7021-8, [id number] ####[facility] LABCLIA [id number] [place] [address] [place] WBC (Bld) [#/Vol] 14.97 10*3/uL High 3.70-11.00 [facility] Comment on above: Order Comment: Speci men Type: BLOOD SPECIMENOrdering Facility: [facility] Address: [address] [place] [address] Result Comment: Resu lts checked and verified.No clot detected. Performed By: #### 5 7021-8, [id number] ####[facility] LABCLIA [id number] [place] [address] [place] Comprehensive metabolic 2000 panelon 08-24-2024 Albumin [Mass/Vol] 3.9 g/dL Normal 3.9-4.9 [facility] Comment on above: Order Comment: Speci men Type: BLOOD SPECIMENOrdering Facility: [facility] Address: [address] [place] [address] Performed By: #### 2 4323-8, 91491-9, 3016-3 ####[facility] LABCLIA [id number] [place] [address] [place] [address] [place] ALP [Catalytic activity/Vol] 117 U/L Normal 34-123 [facility] Comment on above: Order Comment: Speci men Type: BLOOD SPECIMENOrdering Facility: [facility] Address: [address] [place] [address] Performed By: #### 2 4323-8, 40918-7, 6-3 ####[facility] LABCLIA [id number] [place] [id number] [place] ALT [Catalytic activity/Vol] 19 U/L Normal 7-38 [facility] Comment on above: Order Comment: Speci men Type: BLOOD SPECIMENOrdering Facility: [facility] Address: [address] [place] [address] Performed By: #### 2 4323-8, 73588-3, 3015-3 ####[facility] LABCLIA [id number] [place] [address] [place] Anion gap [Moles/Vol] 12 mmol/L Normal 8-15 [facility] Comment on above: Order Comment: Speci men Type: BLOOD SPECIMENOrdering Facility: [facility] Address: [address] [place] [address] Performed By: #### 2 4323-8, 72961-0, 3015-3 ####[facility] LABIA [id number] [place] [address] [place] AST [Catalytic activity/Vol] 9 U/L Low 13-35 [facility] Comment on above: Order Comment: Speci men Type: BLOOD SPECIMENOrdering Facility: [facility] Address: [address] [place] [address] Performed By: #### 2 4323-8, 36372-0, 3015-3 ####[facility] LABCLIA [id number] [address] [address] [place] Bilirubin [Mass/Vol] 0.2 mg/dL Normal 0.2-1.3 [facility] Comment on above: Order Comment: Speci men Type: BLOOD SPECIMENOrdering Facility: [facility] Address: [address] [place], [place] [address] Performed By: #### 2 4323-8, 35797-3, 3 ####[facility] LABCLIA [id number] [facility] [address] [address] [place] Calcium [Mass/Vol] 9.1 mg/dL Normal 8.5-10.2 [facility] Comment on above: Order Comment: Speci men Type: BLOOD SPECIMENOrdering Facility: [facility] Address: [address] [place], [place] [address] Performed By: #### 2 4323-8, 61299-1, 3 ####[facility] LABCLIA [id number] [facility] [address] [address] [place] Chloride [Moles/Vol] 104 mmol/L Normal 98-107 [facility] Comment on above: Order Comment: Speci men Type: BLOOD SPECIMENOrdering Facility: [facility] Address: [address] [place], [place] [address] Performed By: #### 2 4323-8, 14035-8, 3 ####[facility] LABCLIA [id number] [facility] [address] [address] [place] CO2 [Moles/Vol] 24 mmol/L Normal 22-30 [facility] Comment on above: Order Comment: Speci men Type: BLOOD SPECIMENOrdering Facility: [facility] Address: [address] [place] [address] Performed By: #### 2 4323-8, 55201-7, 3 ####[facility] LABCLIA [id number] [facility] [address] [address] [place] Creatinine [Mass/Vol] 0.87 mg/dL Normal 0.58-0.96 [facility] Comment on above: Order Comment: Speci men Type: BLOOD SPECIMENOrdering Facility: [facility] Address: [address] [place] [id number] Performed By: #### 2 4323-8, 47632-1, 3016-3 ####[facility] LABCLIA [id number] [place] [address] [place] Creatinine and Glomerular filtration rate.predicted panel (S/P/Bld) 75 mL/min/1.73m??? Normal >=60 [facility] Comment on above: Order Comment: Pau rolanda Type: BLOOD SPECIMENOrdering Facility: [facility] Address: [address] [place] [address] Result Comment: Alem mated Glomerular Filtration Rate (eGFR) is calculated using the 2020 CKD-EPI creatinine equation. This equation utilizes serum creatinine, sex, and age as parameters. The creatinine assay has traceable calibration to isotope dilution-mass spectrometry. Refer to KDIGO guidelines for clinical interpretation. In patients with unstable renal function, e.g. those with acute kidney injury, the eGFR may not accurately reflect actual GFR. Performed By: #### 2 4323-8, 14694-4, 3016-3 ####[facility] LABCLIA [id number] [place] [id number] [place] Glucose [Mass/Vol] 181 mg/dL High 74-99 [facility] Comment on above: Order Comment: Pau rolanda Type: BLOOD SPECIMENOrdering Facility: [facility] Address: [address] [place] [address] Result Comment: The [place] Diabetes Association (ADA) provides guidance for cutoff values for fasting glucose and random glucose. The ADA defines fasting as no caloric intake for at least 8 hours. Fasting plasma glucose results between 100 to 125 mg/dL indicate increased risk for diabetes (prediabetes). Fasting plasma glucose results greater than or equal to 126 mg/dL meet the criteria for diagnosis of diabetes. In the absence of unequivocal hyperglycemia, results should be confirmed by repeat testing. In a patient with classic symptoms of hyperglycemia or hyperglycemic crisis, random plasma glucose results greater than or equal to 200 mg/dL meet the criteria for diagnosis of diabetes. Reference: Standards of Medical Care in Diabetes 2016, [place] Diabetes Association. Diabetes Care. 2016.39(Suppl 1). Performed By: #### 2 4323-8, 95240-4, 3016-3 ####[facility] LABCLIA [id number] [address] [address] [place] Potassium [Moles/Vol] 3.7 mmol/L Normal 3.7-5.1 [facility] Comment on above: Order Comment: Speci men Type: BLOOD SPECIMENOrdering Facility: [facility] Address: [address] [place], [place] [address] Performed By: #### 2 4323-8, 60177-3, 3015-3 ####[facility] LABIA [id number] [address] [address] [place] Protein [Mass/Vol] 7.4 g/dL Normal 6.3-8.0 [facility] Comment on above: Order Comment: Speci men Type: BLOOD SPECIMENOrdering Facility: [facility] Address: [address] [place], [place] [address] Performed By: #### 2 4323-8, 15900-7, 3015-3 ####[facility] LABIA [id number] [address] [address] [place] Sodium [Moles/Vol] 140 mmol/L Normal 136-144 [facility] Comment on above: Order Comment: Speci men Type: BLOOD SPECIMENOrdering Facility: [facility] Address: [address] [place] [address] Performed By: #### 2 4323-8, 35835-2, 3015-3 ####[facility] LABIA [id number] [address] [address] [place] Urea nitrogen [Mass/Vol] 29 mg/dL High 7-21 [facility] Comment on above: Order Comment: Speci men Type: BLOOD SPECIMENOrdering Facility: [facility] Address: [address] [place] [address] Performed By: #### 2 4323-8, 15604-4, 3016-3 ####[facility] LABIA [id number] [address] [place] HbA1c (Bld)on 08-24-2024 Average glucose Estimated from glycated hemoglobin (Bld) [Mass/Vol] 131 mg/dL Normal [facility] Comment on above: Order Comment: Pau orantes Type: BLOOD SPECIMENOrdering Facility: [facility] Address: [address] [place] [address] Result Comment: eAG: (Estimated average glucose) is a calculated value from HgbA1c and is employee representative of the average blood glucose level in the last 2-3 month period. Performed By: #### 5 5454-3 ####[facility] LABIA [id number] [address] [facility] HbA1c (Bld) [Mass fraction] 6.2 % High 4.3-5.6 [facility] Comment on above: Order Comment: Pau orantes Type: BLOOD SPECIMENOrdering Facility: [facility] Address: [address] [place] [address] Result Comment: [place] Diabetes Association guidelines indicate that patients with HgbA1c in the range 5.7-6.4% are at increased risk for development of diabetes, and intervention by lifestyle modification may be beneficial. HgbA1c greater or equal to 6.5% is considered diagnostic of diabetes. Performed By: #### 5 5454-3 ####[facility] LABIA [id number] [address] [address] [facility] Lipid 1996 panelon 5 Cholesterol [Mass/Vol] 159 mg/dL Normal <200 Cl [facility] Comment on above: Order Comment: Pau orantes Type: BLOOD SPECIMENOrdering Facility: [facility] Address: [address] [place] [address] Result Comment: <200 mg/dL, Desirable 200-239 mg/dL, Borderline high >239 mg/dL, High Performed By: #### 2 4323-8, 24977-5, 3016-3 ####[facility] LABCLIA [id number] [address] [facility] Cholesterol in HDL [Mass/Vol] 54 mg/dL Normal >39 [facility] Comment on above: Order Comment: Speci men Type: BLOOD SPECIMENOrdering Facility: [facility] Address: [address] [place] [address] Result Comment: 40-5 9 mg/dL, Acceptable >59 mg/dL, High: Negative risk factor for coronary heart disease <40 mg/dL, Low: Positive risk factor for coronary heart disease Performed By: #### 2 4323-8, 64685-3, 3015-3 ####[facility] LABCLIA [id number] [address] Cholesterol in LDL [Mass/Vol] 78 mg/dL Normal <100 [facility] Comment on above: Order Comment: Lukaszi men Type: BLOOD SPECIMENOrdering Facility: [facility] Address: [address] [place] [address] Result Comment: <100 mg/dL, Optimal 100-129 mg/dL, Near optimal/above optimal 130-159 mg/dL, Borderline high 160-189 mg/dL, High >189 mg/dL, Very high Secondary prevention optimal LDL Cholesterol levels are recommended to be < 70 mg/dL Performed By: #### 2 4323-8, 00125-8, 3015-3 ####[facility] LABIA [id number] [address] [facility] Cholesterol in LDL/Cholesterol in HDL [Mass ratio] 1.44 {ratio} Normal <2.54 [facility] Comment on above: Order Comment: Lukaszi men Type: BLOOD SPECIMENOrdering Facility: [facility] Address: [address] [place] [address] Result Comment: Refe rence: 1. National Cholesterol Education Program ATP III Guideline At-A-Glance Quick Desk Reference: National Heart, Lung, and Blood [place]. National Institutes of Health. 2001: NIH Publication No. 01-3305. 2. An International Atherosclerosis Society position paper: global recommendations for the management of dyslipidemia: executive summary, Atherosclerosis. 2014: 232(2):410-413. Performed By: #### 2 4323-8, 86045-7, 6-3 ####[facility] LABCLIA [id number] [facility] [address] [place] [address] [place] Cholesterol in VLDL [Mass/Vol] 27 mg/dL Normal <30 [facility] Comment on above: Order Comment: Speci men Type: BLOOD SPECIMENOrdering Facility: [facility] Address: [address] [place] [address] Performed By: #### 2 4323-8, 94300-4, 3015-3 ####[facility] LABCLIA [id number] [facility] [address] [address] [place] Cholesterol non HDL [Mass/Vol] 105 mg/dL Normal <130 [facility] Comment on above: Order Comment: Speci men Type: BLOOD SPECIMENOrdering Facility: [facility] Address: [address] [place] [address] Result Comment: <130 mg/dL, Optimal 130-159 mg/dL, Near optimal/above optimal 160-189 mg/dL, Borderline high 190-219 mg/dL, High >219 mg/dL, Very high Secondary prevention optimal non HDL Cholesterol levels are recommended to be <100 mg/dL Performed By: #### 2 4323-8, 98030-0, 3015-3 ####[facility] LABCLIA [id number] [facility] [address] [place] [address] [place] Cholesterol.total/Chol esterol in HDL [Mass ratio] 2.94 {ratio} Normal <5.10 [facility] Comment on above: Order Comment: Pau orantes Type: BLOOD SPECIMENOrdering Facility: [facility] Address: [address] [place] [id number] Performed By: #### 2 4323-8, 62968-0, 3015-3 ####[facility] LABCLIA [id number] [address] [place] [address] [place] FASTING TIME 12 hrs Normal [facility] Comment on above: Order Comment: Speci men Type: BLOOD SPECIMENOrdering Facility: [facility] Address: [address] [place] [address] Performed By: #### 2 4323-8, 06235-1, 3016-3 ####[facility] LABCLIA [id number] [address] [address] [place] Triglyceride [Mass/Vol] 133 mg/dL Normal <150 [facility] Comment on above: Order Comment: Speci men Type: BLOOD SPECIMENOrdering Facility: [facility] Address: [address] [place] [address] Result Comment: <150 mg/dL, Normal 150-199 mg/dL, Borderline high 200-499 mg/dL, High >499 mg/dL, Very high Performed By: #### 2 4323-8, 63938-8, 3016-3 ####[facility] LABCLIA [id number] [address], [place] [address] [place] PATHOLOGIST INTERPRETATION C BC AND DIFFERENTIAL (LAB REFLEX ORDER-NO BILL)on 08-24-2024 Design Director review Douglas (Unsp spec) [Interp] Reviewed by Darrius Viera M.D. Normal [facility] Comment on above: Order Comment: Speci men Type: BLOOD SPECIMENOrdering Facility: [facility] Address: [address] [place] [address] Performed By: #### 5 7021-8, [id number] ####[facility] LABCLIA [id number] [place] [id number] [place] STAFF REVIEW, CBCDIF Normal [facility] Comment on above: Order Comment: Speci men Type: BLOOD SPECIMENOrdering Facility: [facility] Address: [address] [place] [address] Result Comment: Mild ly increased lymphocytes If the findings persist and reactive causes excluded, flow cytometry is suggested to exclude a lymphoproliferative disorder Neutrophilic leukocytosis without left shift Performed By: #### 5 7021-8, [id number] ####[facility] LABCLIA [id number] [address] [facility] TSH SerPl-aCncon 08-24-2024 TSH Qn 0.606 m[IU]/L Normal 0.270-4.20 0 [facility] Comment on above: Order Comment: Speci men Type: BLOOD SPECIMENOrdering Facility: [facility] Address: [address] [place] [address] Performed By: #### 2 4323-8, 77433-5, 3016-3 ####[facility] LABCLIA [id number] [address] CNOVon 08-23-2024 CNOV Office Visit (FAMPWS ) SANTY RAZA ([id number]) 1960 F Date Time Provider Department 08/23/24 9:40 AM DELORIS CHAVEZ During your visit today, we recorded the following information about you: Pulse Respiration Blood pressure Weight 84/minute 20/minute 120/72 139.7 kg Deloris Chavez APRN.CONTENT MANAGEMENT CONSULTANT 08/23/2024 7:55 PM Signed This is a 63 year old female who presents today with for a 3 month follow up. HISTORY OF PRESENT ILLNESS: Santy Raza is a 63 year old female coming in today for a 3 month follow up. Was recently in urgent care for URI. Started on z-pack and prednisone. Notified today that xray showed pneumonia. Planning to start Augmentin Today is the last day on azithromycin and prednisone Will get repeat xray in a few weeks to make sure pneumonia has resolved Has not noticed a difference in symptoms Uses Symbicort 5 times a week Uses albuterol twice per day Uses portable nebulizer HTN: Patient is compliant with meds Yes Monitors bp at home: Yes. Denies side effects: Yes. Chest pain: No. Dyspnea: Yes. Edema: Yes, sometimes in the ankles. Palpitations: No. Syncope: No. Headache: No. Dizziness: No. HYPERLIPIDEMIA: Patient is taking medications: Yes. Patient is watching diet: Yes. Patient denies myalgias: Yes. Patient denies gi upset: Yes GERD: Patient takes: Prevacid Heartburn is controlled: Yes. Bloody or black stools: No. Bowel changes: No. TRINI: Does not wear CPAP at night Does sleep with oxygen on at night and that does help Wears 2 liters as needed HYPOTHYROID: Patient is compliant with medications: Yes Patient has changes in energy: No Patient has changes in hair or skin: No Patient has temperature intolerance: No Patient has weight changes: No Depression: Feels stable Doing well on current regimen Denies worsening symptoms Anxiety: Feels stable Doing well on current regimen Denies worsening symptoms Using 1mg xanax prn 2-3 times per week REVIEW OF SYSTEMS GENERAL: No weight loss, malaise or fevers/chills HEENT: Negative for frequent or significant headaches, No changes in hearing or vision. NECK: Negative for lumps, goiter, pain and significant neck swelling RESPIRATORY: Negative for hemoptysis, wheezing, positive for intermittent shortness of breath, and cough. CARDIOVASCULAR: Negative for chest pain, orthopnea, or palpitations. Mild leg swelling in bilateral lower extremities. GI: No nausea, vomiting, or diarrhea/constipation. No hematochezia/melena. No heartburn or reflux symptoms. : No history of dysuria, frequency or incontinence MUSCULOSKELETAL: Negative for joint pain or swelling. SKIN: Negative for lesions, rash, and itching ENDOCRINE: Negative for cold or heat intolerance, polyuria, polydipsia and goiter NEURO: No history of headaches, syncope, paralysis, seizures or tremors. PAST MEDICAL HISTORY: PAST MEDICAL HISTORY Diagnosis Date Allergic rhinitis, cause unspecified BMI 45.0-49.9, adult ([facility]) 08/27/2022 Essential hypertension, benign Hypothyroidism 09/26/2015 Mixed conductive and sensorineural hearing loss TRINI on CPAP Other anxiety states Perforated tympanic membrane 03/29/2011 S/P repair of ventral hernia 09/06/2022 Synovitis and tenosynovitis, unspecified Tobacco abuse 03/23/2012 PAST SURGICAL HISTORY Procedure Laterality Date COLONOSCOPY SCRN NOT HIGH RISK 09/13/2020 EGD 10/25/2020 L'SCOPE DX W/WO BRUSHINGS/WASHINGS 09/05/2022 Dr. Guadarrama LIG/TRNSXJ FLP TUBE ABDL/VAG APPR UNI/BI Tubal ligation LX REPAIR RECURRENT VENTRAL HERNIA 09/05/2022 open, w/ mesh. Dr. Guadarrama MYRINGOTOMY ASPIRAND/EUSTACHIAN TUBE NFLTJ ANES Myringotomy/tubes NEUROPLASTY AND/TRANSPOS MEDIAN NRV CARPAL TUNNE Bilateral 01/15/2019 Bilateral carpal tunnel release REDUCTION OF LARGE BREAST 04/23/2016 STEREOTACT BREAST BX EA LESION PC 09/30/2018 left stereotactic breast biopsy w/vacuum assisted core needle biopsy, specimen radiograph and marker placement ALLERGIES Doxycycline Monohydrate, Hctz [Amiloride-Hydrochlorothiaz rick], Levaquin [Levofloxacin], Meloxicam, and Peanuts MEDICATIONS Current Outpatient Medications Medication Sig oxygen-air delivery systems (WALKABOUT MINI OXYGEN SYSTEM [facility]) azithromycin (ZITHROMAX) 250 mg tablet Take 1 tablet by mouth as directed. Take 2 tablets by mouth on Day 1, then 1 tablet by mouth every day thereafter for 4 days predniSONE (DELTASONE) 20 mg tablet Take 1 tablet by mouth two times a day for 5 days. lansoprazole (PREVACID) 15 mg capsule Take 1 capsule by mouth once daily. ondansetron (ZOFRAN) 4 mg tablet Take 1 tablet by mouth every 8 hours as needed for nausea/vomiting. benzonatate (TESSALON PERLES) 100 mg capsule Take 1-2 capsules by mouth three times a day as needed for cough. ALPRAZolam (XANAX) 1 mg tablet Take 1 tabl (more content not included)... Normal [facility] Cornelius 08-23-2024 ABDI Telephone (FOUZIAWA) LUZ MARINASANTY ([id number]) 1960 F Date Time Provider Department 08/23/24 TRUDY WALLACE During your visit today, we recorded the following information about you: Key SwansonTamMar 08/23/2024 4:24 PM Signed Santy is calling Trudy Wallace APRN.CNP today with concern regarding Medication Follow-up Calling in regarding getting medication sent to pharmacy; states she received phonce call this AM about the following: +right pneumonia. Finish azithromycin and add augmentin. [facility]. Patient has been identified by name and birthdate. Duration of symptoms: N/A Person calling: self Call patient at: at home [phone] (home) [phone] (cell) Was an appointment scheduled: No Closing statement: Results or non-symptom based questions: Thank you for calling [facility], your call will be returned within the next business day. Mar Trudy Garrido APRN.CNP 08/23/2024 4:31 PM Signed Birthday verified with patient over the phone. Aware of the below information with all questions answered. Rx augmentin to pharmacy. Allergies As of Date: 08/23/2024 Noted Allergy Reaction DOXYCYCLINE MONOHYDRATE 07/10/2016 11 - Vomiting HCTZ (AMILORIDE-HYDROCHLOROTHIAZ I*09/05/2022 9 - Itching LEVAQUIN (LEVOFLOXACIN) 03/04/2005 14 - Other: See Comments Comments: Jittery nervousness MELOXICAM 10/25/2019 9 - Itching 2 - Rash 7 - Swelling PEANUTS 03/04/2005 9 - Itching Date Reviewed: 08/23/2024 Reviewed by: Ally Hanks MA - Fully Assessed Reason for Visit: Medication Follow-up [270] Order(s):amoxicillin-clavul anate potassium (AUGMENTIN) 875-125 mg per tabletTake 1 tablet by mouth two times a day for 5 days.Disp: 10 tabletRfl: 0 Prescriptions as of 08/23/2024 - amoxicillin-clavulanate potassium (AUGMENTIN) 875-125 mg per tablet Take 1 tablet by mouth two times a day for 5 days. - oxygen-air delivery systems (WALKABOUT MINI OXYGEN SYSTEM [facility]) - azithromycin (ZITHROMAX) 250 mg tablet Take 1 tablet by mouth as directed. Take 2 tablets by mouth on Day 1, then 1 tablet by mouth every day thereafter for 4 days - predniSONE (DELTASONE) 20 mg tablet Take 1 tablet by mouth two times a day for 5 days. - lansoprazole (PREVACID) 15 mg capsule Take 1 capsule by mouth once daily. - ondansetron (ZOFRAN) 4 mg tablet Take 1 tablet by mouth every 8 hours as needed for nausea/vomiting. - benzonatate (TESSALON PERLES) 100 mg capsule Take 1-2 capsules by mouth three times a day as needed for cough. - ALPRAZolam (XANAX) 1 mg tablet Take 1 tablet by mouth two times a day as needed for up to 30 days. - buPROPion XL (WELLBUTRIN XL) 300 mg 24 hr tablet Take 1 tablet by mouth once daily. - ofloxacin (FLOXIN) 0.3 % otic solution Use 5 Drops in both ears once daily. - furosemide (LASIX) 20 mg tablet Take 1 tablet by mouth once daily. If you have increased swelling, okay to increase to 2 tablets daily for 2-3 days. Do not do more than once weekly. - benzonatate (TESSALON PERLE) 100 mg capsule Take 2 capsules by mouth three times a day as needed. - hydrOXYzine HCl (ATARAX) 25 mg tablet Take 1 tablet by mouth every 6 hours as needed for itching/rash. - HYDROcodone-acetaminophen (NORCO) 5-325 mg per tablet Take 1 tablet by mouth every 8 hours as needed for pain. From pain management. Aware to not use with xanax. - venlafaxine ER (EFFEXOR XR) 150 mg 24 hr capsule Take 1 capsule by mouth once daily. Start after taking 75 mg X 1 week. Stop the citalopram when starting this dose. - loratadine (CLARITIN) 10 mg tablet Take 1 tablet by mouth once daily. - cyclobenzaprine (FLEXERIL) 10 mg tablet Take 1 tablet by mouth three times a day as needed for muscle spasm. - levothyroxine (LEVOXYL) 200 mcg tablet Take 1 tablet by mouth once daily. Take on empty stomach. For thyroid - albuterol (PROVENTIL) 2.5 mg /3 mL (0.083 %) nebulizer solution Use 3 mL via nebulizer every 6 hours as needed for wheezing/shortness of breath. - amitriptyline (ELAVIL) 25 mg tablet Take 1 tablet by mouth daily at bedtime. - amLODIPine (NORVASC) 5 mg tablet Take 1 tablet by mouth once daily. - budesonide-formoterol (SYMBICORT) 160-4.5 mcg/actuation inhaler Inhale 2 Puffs as instructed two times a day. - Ipratropium (ATROVENT HFA) 17 mcg/actuation inhaler Inhale 2 Puffs as instructed every 6 hours. - lisinopril (ZESTRIL) 40 mg tablet Take 1 tablet by mouth once daily. - atorvastatin (LIPITOR) 10 mg tablet Take 1 tablet by mouth daily at bedtime. For cholesterol. - Cholecalciferol, Vitamin D3, 125 mcg (5,000 unit) cap Take 1 capsule by mouth once daily. - Nebulizer Accessories misc 1 Each as directed. Nebulizer tubing and mouth piece. faxed to - CPAP autoCPAP 5-15 cmH2O, mask, tubing, filters, heated humidity, lifetime supplies. Dx: TRINI - Nebulizer 1 Each as needed. NE (more content not included)... Normal [facility] XR CHEST 2V FRONTAL/LATon XR CHEST 2V FRONTAL/LAT * * *Final Report* * * DATE OF EXAM: Aug 23 2024 8:53AM WOX [id number] - XR CHEST 2V FRONTAL/LAT / PROCEDURE REASON: Bronchitis * * * * Physician Interpretation * * * * EXAMINATION: CHEST RADIOGRAPH (2 VIEW FRONTAL and LATERAL) CLINICAL HISTORY: Bronchitis MQ: XC2_6 EXAM DATE/TIME: 08/23/2024 8:53 AM COMPARISON: Chest x-ray dated 04/02/2023 RESULT: Lines, tubes, and devices: None. Lungs and pleura: Patchy opacities in the right upper and right middle lobe.. No pleural effusion. No pneumothorax. Cardiomediastinal silhouette: Stable cardiomediastinal silhouette. Bones and soft tissues: Degenerative changes are present within the thoracic spine. IMPRESSION: Patchy opacities in the right upper and right middle lobe, likely pneumonia in the appropriate clinical setting. Short-term follow-up radiographs after appropriate interval treatment are advised to document resolution. Manager Target: ARIA Transcribe Date/Time: Aug 23 2024 8:57A Dictated by : AURA GRIFFIN MD This examination was interpreted and the report reviewed and electronically signed by: AURA GRIFFIN MD on Aug 23 2024 8:58AM EST [id number] Normal [facility] XR Chest PA and Lateralon IMPRESSION: Patchy opacities in the right upper and right middle lobe, likely pneumonia in the appropriate clinical setting. Short-term follow-up radiographs after appropriate interval treatment are advised to document resolution. Manager Target: ARIA Transcribe Date/Time: Aug 23 2024 8:57A Dictated by : AURA GRIFFIN MD This examination was interpreted and the report reviewed and electronically signed by: AURA GRIFFIN MD on Aug 23 2024 8:58AM EST DIVISION OF RADIOLOGY * * *Final Report* * * DATE OF EXAM: Aug 23 2024 8:53AM WOX 5291 - XR CHEST 2V FRONTAL/LAT / PROCEDURE REASON: Bronchitis * * * * Physician Interpretation * * * * EXAMINATION: CHEST RADIOGRAPH (2 VIEW FRONTAL & LATERAL) CLINICAL HISTORY: Bronchitis MQ: XC2_6 EXAM DATE/TIME: 08/23/2024 8:53 AM COMPARISON: Chest x-ray dated 04/02/2023 RESULT: Lines, tubes, and devices: None. Lungs and pleura: Patchy opacities in the right upper and right middle lobe.. No pleural effusion. No pneumothorax. Cardiomediastinal silhouette: Stable cardiomediastinal silhouette. Bones and soft tissues: Degenerative changes are present within the thoracic spine. DIVISION OF RADIOLOGY Provider, [facility] - 08/23/2024 * * *Final Report* * * DATE OF EXAM: Aug 23 2024 8:53AM WOX 5291 - XR CHEST 2V FRONTAL/LAT / PROCEDURE REASON: Bronchitis * * * * Physician Interpretation * * * * EXAMINATION: CHEST RADIOGRAPH (2 VIEW FRONTAL & LATERAL) CLINICAL HISTORY: Bronchitis MQ: XC2_6 EXAM DATE/TIME: 08/23/2024 8:53 AM COMPARISON: Chest x-ray dated 04/02/2023 RESULT: Lines, tubes, and devices: None. Lungs and pleura: Patchy opacities in the right upper and right middle lobe.. No pleural effusion. No pneumothorax. Cardiomediastinal silhouette: Stable cardiomediastinal silhouette. Bones and soft tissues: Degenerative changes are present within the thoracic spine. IMPRESSION IMPRESSION: Patchy opacities in the right upper and right middle lobe, likely pneumonia in the appropriate clinical setting. Short-term follow-up radiographs after appropriate interval treatment are advised to document resolution. Manager Target: ARIA Transcribe Date/Time: Aug 23 2024 8:57A Dictated by : AURA GRIFIFN MD This examination was interpreted and the report reviewed and electronically signed by: AURA GRIFFIN MD on Aug 23 2024 8:58AM EST [facility] Radiology Study observation (narrative) [facility] XR Chest PA and LateralOrder ed By: [facility] Provider on 08-23-2024 [facility] CNOVon 08-19-2024 CNOV Office Visit (WALKWA ) SANTY RAZA ([id number]) 1960 F Date Time Provider Department 08/19/24 8:50 AM DONY FLOR During your visit today, we recorded the following information about you: Temperature Pulse Respiration Blood pressure 98.1 degrees 83/minute 22/minute 115/61 Weight Height 141.7 kg 1.651 m Dony Flor PA-C 08/19/2024 9:30 AM Signed Surgical mask and gloves worn for all in-person care. 08/19/2024 Patient presents with: Cough: Started 5 days ago, sore throat from coughing, coughing up yellow/green mucous, coughing so much that she's going to pass out, sinus congestion, some chest congestion, has taken mucinex and tessalon pearls, pt does smoke, SUBJECTIVE: This is a 63 year old with obesity, TRINI, active smoker, hypothyroid, and h/o mucopurulent chronic bronchitis that is here today for concern for URI symptoms. HPI per the patient. The patient complains of cough, sore throat, and sinus congestion/pressure/drainag e x 5 days. She does wear 2 L of oxygen at home and has a diagnosis of mucopurulent chronic bronchitis. She denies diagnosis of COPD however. She is on Symbicort and uses her albuterol. Denies fever, chills, sweats, body aches, or fatigue. Chest feels congested but she denies wheezing, shortness of breath, increased WOB, or chest pain. No n/v/d, FAN, or rash. Reviewed medical charts. COVID exposure: none Influenza exposure: none RSV exposure: none Covid Immunization Dates Current Care Gaps Covid-19 Vaccine (2023- season) Overdue since 04/19/2024 02/23/2024 Imm Admin: COVID-19 vaccine, age 12+ yr, bivalent (PFIZER-BIONTECH) 06/07/2023 Imm Admin: COVID-19 vaccine, age 12+ yr (PFIZER-BIONTECH COMIRNATY) 03/19/2022 Imm Admin: COVID-19 vaccine, age 12+ yr, bivalent (PFIZER-BIONTECH) 10/23/2021 Imm Admin: COVID-19 original vaccine, age 12+ yr, monovalent (PFIZER-BIONTECH - WILLETT TOP) 10/23/2021 Imm Admin: COVID-19 original vaccine, age 12+ yr, monovalent (PFIZER-BIONTECH - PURPLE TOP) Only the first 5 history entries have been loaded, but more history exists. COVID vaccine this year: yes Influenza vaccine this year: yes RSV vaccine this year: - Asthma: none Pneumonia none Tobacco: yes Pain on scale of 0-10 with 0 being no pain and 10 being greatest pain: 0 Nothing makes the symptoms better. Nothing makes them worse. Self-treatment:. Left over tessalon The severity is mild and the symptoms are not improving. The patient did not have a similar problem in the last 3 months. The patient did not take any antibiotics in the last 3 months. Barriers to learning: none. Reviewed meds, OTCs, herbals or supplements. Reviewed allergies, medications, social history, and past medical history. PAST MEDICAL HISTORY Diagnosis Date Allergic rhinitis, cause unspecified BMI 45.0-49.9, adult ([facility]) 08/27/2022 Essential hypertension, benign Hypothyroidism 09/26/2015 Mixed conductive and sensorineural hearing loss TRINI on CPAP Other anxiety states Perforated tympanic membrane 03/29/2011 S/P repair of ventral hernia 09/06/2022 Synovitis and tenosynovitis, unspecified Tobacco abuse 03/23/2012 ALLERGIES Doxycycline Monohydrate, Hctz [Amiloride-Hydrochlorothiaz rick], Levaquin [Levofloxacin], Meloxicam, and Peanuts MEDICATIONS Current Outpatient Medications Medication Sig lansoprazole (PREVACID) 15 mg capsule Take 1 capsule by mouth once daily. ondansetron (ZOFRAN) 4 mg tablet Take 1 tablet by mouth every 8 hours as needed for nausea/vomiting. benzonatate (TESSALON PERLES) 100 mg capsule Take 1-2 capsules by mouth three times a day as needed for cough. ALPRAZolam (XANAX) 1 mg tablet Take 1 tablet by mouth two times a day as needed for up to 30 days. buPROPion XL (WELLBUTRIN XL) 300 mg 24 hr tablet Take 1 tablet by mouth once daily. ofloxacin (FLOXIN) 0.3 % otic solution Use 5 Drops in both ears once daily. furosemide (LASIX) 20 mg tablet Take 1 tablet by mouth once daily. If you have increased swelling, okay to increase to 2 tablets daily for 2-3 days. Do not do more than once weekly. benzonatate (TESSALON PERLE) 100 mg capsule Take 2 capsules by mouth three times a day as needed. hydrOXYzine HCl (ATARAX) 25 mg tablet Take 1 tablet by mouth every 6 hours as needed for itching/rash. HYDROcodone-acetaminophen (NORCO) 5-325 mg per tablet Take 1 tablet by mouth every 8 hours as needed for pain. From pain management. Aware to not use with xanax. venlafaxine ER (EFFEXOR XR) 150 mg 24 hr capsule Take 1 capsule by mouth once daily. Start after taking 75 mg X 1 week. Stop the citalopram when starting this dose. loratadine (CLARITIN) 10 mg tablet Take 1 tablet by mouth once daily. cyclobenzaprine (FLEXERIL) 10 mg tablet Take 1 tablet by mouth three times a day as needed for muscle spasm. levothyroxine (LEVOXYL) 200 mc (more content not included)... Normal [facility] Spine Inj on 06-21-2024 Fluor Guidance for Spine Inj [facility] Imaging Services [address] [place] [address] [facility] MR#: [id number] Acct: [id number] Name: SANTY RAZA Rep #: [id number] : 1960 F 63 From: Alexis bryant MD PCP: ALEXI Freedman Status: [facility] Study: [facility] for Spine Inj Date of Exam: 12/08 Exam# [id number] Ordering Dr: Tito Felipe MD [id number] PROCEDURE: Caudal block DATE OF EXAMINATION: 2024 INDICATION: Female, 63 years old. Chronic low back pain. FLUOROSCOPY TIME (if supplied): (7 seconds) minutes/seconds. 8.05 mGy. One image was submitted. RAD/Fluor Guidance for Spine Inj IMPRESSION: Intraoperative imaging provided for caudal block. Electronically Signed: Alexis Shi MD at 12:03 EST , CC: ALEXI Chavez; Dr. Tito Felipe MD Manager Target: Signed Normal [facility] Operative Reporton Operative Report [facility] Medical Records Department [address] [place] [address] Operative Report 06/21/24 1233 MR#: [id number] Acct: [id number] Name: JAMILAHHINAISIDORO GuoY Cooper Rep #: [id number] : 1960 63 From: Tito Felipe MD PCP: ALEXI Freedman Status:[facility] Location: [place] [address] Operative Report (Standard) Operative Information Date of Procedure: 06/21/24 Pre-Operative Diagnosis: 1 Post-Operative Diagnosis: 1 Surgery/Procedure Performed: 1 sales contract administrator: No Type of Anesthesia: Local RN Documented Start/Stop Times: Operation Date: 06/21/24 12:40 Case Time Into Pre-Op 06/21/24 11:34 Out of Pre-Op 06/21/24 12:20 Into Room 06/21/24 12:24 Procedure Start 06/21/24 12:30 Procedure End 06/21/24 12:32 Procedure Start Time: 12:33 Procedure Stop Time: 12:33 Select all DRAINS/GRAFTS/IMPLANTS that apply: None Estimated Blood Loss: 1 Specimen collected: No Description of surgery: Pre-Operative Diagnosis: Lumbosacral radiculopathy, lumbosacral degenerative disc disease, lumbosacral spinal stenosis Post-Operative Diagnosis: Lumbosacral radiculopathy, lumbosacral degenerative disc disease, lumbosacral spinal stenosis Surgery/Procedure Performed:: Diagnostic/therapeutic caudal epidural steroid injection under fluoroscopic guidance Type of Anesthesia: Local Estimated Blood Loss (mL): Minimal Description of Procedure: DESCRIPTION OF PROCEDURE: History and physical of today was reviewed. Risks and benefits of the procedure were explained. The patient understood and agreed to proceed. Informed consent was obtained. IV inserted per routine protocol. The patient was taken to the operating room and placed in the prone position with a pillow positioned underneath the abdomen. The lower back and tailbone area was prepped and draped in a sterile fashion using iodine x3. Under fluoroscopy guidance on a lateral view, the caudal space was identified. The skin and subcutaneous tissue was anesthetized with approximately 3 mL of 1% lidocaine using a 25-gauge regular needle. Under direct visualization with fluoroscopy, using a 22-gauge 3-1/2-inch spinal needle, the needle was advanced via the skin through the sacral hiatus. The tip of the needle was passed through the sacrococcygeal ligament and advanced to approximately S4 area. After negative aspiration of blood or CSF, a total of 3 mL of contrast was injected to confirm correct placement of the needle as well as cephalad spread. The spread was followed to approximately L5 area. After confirmation on AP as well as lateral view and repeated negative aspiration, a total of 15 mL of preservative-free 0.125% Marcaine with 80 mg of Depo-Medrol was injected easily. The needle was then removed intact. The patient experienced no sign or symptoms of intrathecal or intravascular injection. The patient experienced no paresthesia. The procedure was completed without any apparent difficulty or any complications. The patient appeared to tolerate it well. ASSESSMENT AND PLAN: This is a 63-year-old female with lumbosacral radiculopathy, lumbosacral degenerative disc disease, lumbosacral spinal stenosis status post diagnostic/therapeutic caudal epidural steroid injection, patient will continue her current medications, patient will follow in approximately 2 weeks for reevaluation. Surgical Findings: 1 Complications Complications: No Admit VTE Documentation VTE Present on Admission: No VTE Mechan Device Prophylaxis: None VTE Pharm Prophylaxis ordered?: No 06/21/24 7184 Cosigner Signature (if applicable): CC: ALEXI Chavez; Dr. Tito Felipe [facility] SANTY RAZA ([id number]) 1960 F Date Time Provider Department 06/02/24 10:15 AM [facility] During your visit today, we recorded the following information about you: Temperature Pulse Respiration Blood pressure 98.5 degrees 80/minute 18/minute 110/78 Weight 140.5 kg Yarely Galvan PA-C 06/02/2024 10:00 AM Signed This note was created using [employer]. Subjective Santy Raza is a 63 year old female. HPI Patient presents with cough and chest congestion over the past 5 days. She does wear 2 L of oxygen at home and has a diagnosis of mucopurulent chronic bronchitis. She denies diagnosis of COPD however. She is on Symbicort and uses her albuterol. She had a fever the first night. She has been wheezy. No chest pain. 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 That seems to have improved. No diarrhea or vomiting.She does still smoke. Review of Systems Constitutional: Positive for fever. HENT: Positive for congestion, ear discharge, postnasal drip and sinus pressure. Negative for ear pain. Respiratory: Positive for cough and wheezing. Cardiovascular: Negative. Gastrointestinal: Negative. Genitourinary: Negative. Musculoskeletal: Negative. All other systems reviewed and are negative. 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 120 tablet 2 triamcinolone acetonide (KENALOG) 0.1 % cream Apply 1 application to affected area two times a day. Apply to affected area. Location: arms 80 g 2 HYDROcodone-acetaminophen (NORCO) 5-325 mg per tablet Take 1 tablet by mouth every 8 hours as needed for pain. From pain management. Aware to not use with xanax. benzonatate (TESSALON PERLES) 100 mg capsule Take 1-2 capsules by mouth three times a day as needed for cough. 40 capsule 1 venlafaxine ER (EFFEXOR XR) 150 mg 24 hr capsule Take 1 capsule by mouth once daily. Start after taking 75 mg X 1 week. Stop the citalopram when starting this dose. 90 capsule 1 loratadine (CLARITIN) 10 mg tablet Take 1 tablet by mouth once daily. 30 tablet 11 cyclobenzaprine (FLEXERIL) 10 mg tablet Take 1 tablet by mouth three times a day as needed for muscle spasm. 20 tablet 0 buPROPion XL (WELLBUTRIN XL) 300 mg 24 hr tablet Take 1 tablet by mouth once daily. 30 tablet 5 furosemide (LASIX) 20 mg tablet Take 1 tablet by mouth once daily. If you have increased swelling, okay to increase to 2 tablets daily for 2-3 days. Do not do more than once weekly. 40 tablet 5 levothyroxine (LEVOXYL) 200 mcg tablet Take 1 tablet by mouth once daily. Take on empty stomach. For thyroid 30 tablet 11 ofloxacin (FLOXIN) 0.3 % otic solution Use 5 Drops in both ears once daily. 10 mL 0 albuterol (PROVENTIL) 2.5 mg /3 mL (0.083 %) nebulizer solution Use 3 mL via nebulizer every 6 hours as needed for wheezing/shortness of breath. 300 mL 1 amitriptyline (ELAVIL) 25 mg tablet Take 1 tablet by mouth daily at bedtime. 90 tablet 3 amLODIPine (NORVASC) 5 mg tablet Take 1 tablet by mouth once daily. 90 tablet 3 budesonide-formoterol (SYMBICORT) 160-4.5 mcg/actuation inhaler Inhale 2 Puffs as instructed two times a day. 1 Each 5 Ipratropium (ATROVENT HFA) 17 mcg/actuation inhaler Inhale 2 Puffs as instructed every 6 hours. 1 Each 3 lisinopril (ZESTRIL) 40 mg tablet Take 1 tablet by mouth once daily. 90 tablet 3 atorvastatin (LIPITOR) 10 mg tablet Take 1 tablet by mouth daily at bedtime. For cholesterol. 90 tablet 3 Cholecalciferol, Vitamin D3, 125 mcg (5,000 unit) cap Take 1 capsule by mouth once daily. 30 capsule 11 lansoprazole (PREVACID) 15 mg capsule Take 1 capsule by mouth once daily. 30 capsule 11 ondansetron (ZOFRAN) 4 mg tablet Take 1 tablet by mouth every 8 hours as needed for nausea/vomiting. 30 tablet 3 fluticasone (FLONASE) 50 mcg/actuation nasal spray Use 2 Sprays in each nostril once daily. Rinse mouth after use. 1 Each 11 Nebulizer Accessories misc 1 Each as directed. Nebulizer tubing and mouth piece. faxed to 3 Each 5 CPAP autoCPAP 5-15 cmH2O, mask, tubing, filters, heated humidity, lifetime supplies. Dx: TRINI 1 Device 0 Nebulizer 1 Each as needed. NEBULIZER TUBING AND SUPPLIES. DX: CHRONIC BRONCHITIS J41.1, WHEEZING R06.2. FAX TO [employer] [phone] 1 Each 11 COMPOUNDED PRESCRIPTION Nebulizer fo (more content not included)... Normal [facility] CNOVon 04-30-2024 CNOV Office Visit (FAMPWS ) EUGENIESANTY Guo ([id number]) 1960 F Date Time Provider Department 04/30/24 1:40 PM [facility] During your visit today, we recorded the following information about you: Pulse Blood pressure Weight 88/minute 138/82 141.1 kg Kathy Bustamante, [employer].CONTENT MANAGEMENT CONSULTANT 04/30/2024 2:05 PM Signed This is a 63 year old female who presents today with: Patient presents with: Derm Problem: Bilateral arms itching. Bactroban didn't make any difference. Feels warm burning sensation. HISTORY OF PRESENT ILLNESS: Santy Darlingjohnbrant is a 63 year old female. Patient presents with: Derm Problem: Bilateral arms itching. Bactroban didn't make any difference. Feels warm burning sensation. For the last 6 months, she has been scratching herself in her sleep. Wakes up with blood everywhere. Hurts. Right arm with large area of redness and some swelling. Itchiness occurs when she gets too hot. No fever or chills. Only on arms up to where short sleeves begin. Pain between shoulder blades. PAST MEDICAL HISTORY: PAST MEDICAL HISTORY Diagnosis Date Allergic rhinitis, cause unspecified BMI 45.0-49.9, adult ([facility]) 08/27/2022 Essential hypertension, benign Hypothyroidism 09/26/2015 Mixed conductive and sensorineural hearing loss TIRNI on CPAP Other anxiety states Perforated tympanic membrane 03/29/2011 S/P repair of ventral hernia 09/06/2022 Synovitis and tenosynovitis, unspecified Tobacco abuse 03/23/2012 PAST SURGICAL HISTORY Procedure Laterality Date COLONOSCOPY SCRN NOT HIGH RISK 09/13/2020 EGD 10/25/2020 L'SCOPE DX W/WO BRUSHINGS/WASHINGS 09/05/2022 Dr. Guadarrama LIG/TRNSXJ FLP TUBE ABDL/VAG APPR UNI/BI Tubal ligation LX REPAIR RECURRENT VENTRAL HERNIA 09/05/2022 open, w/ mesh. Dr. Guadarrama MYRINGOTOMY ASPIRAND/EUSTACHIAN TUBE NFLTJ ANES Myringotomy/tubes NEUROPLASTY AND/TRANSPOS MEDIAN NRV CARPAL TUNNE Bilateral 01/15/2019 Bilateral carpal tunnel release REDUCTION OF LARGE BREAST 04/23/2016 STEREOTACT BREAST BX EA LESION PC 09/30/2018 left stereotactic breast biopsy w/vacuum assisted core needle biopsy, specimen radiograph and marker placement ALLERGIES Doxycycline Monohydrate, Hctz [Amiloride-Hydrochlorothiaz rick], Levaquin [Levofloxacin], Meloxicam, and Peanuts MEDICATIONS Current Outpatient Medications Medication Sig mupirocin (BACTROBAN) 2 % ointment Apply 1 application to affected area three times a day for 10 days. HYDROcodone-acetaminophen (NORCO) 5-325 mg per tablet Take 1 tablet by mouth every 8 hours as needed for pain. From pain management. Aware to not use with xanax. benzonatate (TESSALON PERLES) 100 mg capsule Take 1-2 capsules by mouth three times a day as needed for cough. venlafaxine ER (EFFEXOR XR) 150 mg 24 hr capsule Take 1 capsule by mouth once daily. Start after taking 75 mg X 1 week. Stop the citalopram when starting this dose. loratadine (CLARITIN) 10 mg tablet Take 1 tablet by mouth once daily. buPROPion XL (WELLBUTRIN XL) 300 mg 24 hr tablet Take 1 tablet by mouth once daily. furosemide (LASIX) 20 mg tablet Take 1 tablet by mouth once daily. If you have increased swelling, okay to increase to 2 tablets daily for 2-3 days. Do not do more than once weekly. levothyroxine (LEVOXYL) 200 mcg tablet Take 1 tablet by mouth once daily. Take on empty stomach. For thyroid albuterol (PROVENTIL) 2.5 mg /3 mL (0.083 %) nebulizer solution Use 3 mL via nebulizer every 6 hours as needed for wheezing/shortness of breath. amitriptyline (ELAVIL) 25 mg tablet Take 1 tablet by mouth daily at bedtime. amLODIPine (NORVASC) 5 mg tablet Take 1 tablet by mouth once daily. budesonide-formoterol (SYMBICORT) 160-4.5 mcg/actuation inhaler Inhale 2 Puffs as instructed two times a day. Ipratropium (ATROVENT HFA) 17 mcg/actuation inhaler Inhale 2 Puffs as instructed every 6 hours. lisinopril (ZESTRIL) 40 mg tablet Take 1 tablet by mouth once daily. atorvastatin (LIPITOR) 10 mg tablet Take 1 tablet by mouth daily at bedtime. For cholesterol. Cholecalciferol, Vitamin D3, 125 mcg (5,000 unit) cap Take 1 capsule by mouth once daily. lansoprazole (PREVACID) 15 mg capsule Take 1 capsule by mouth once daily. ondansetron (ZOFRAN) 4 mg tablet Take 1 tablet by mouth every 8 hours as needed for nausea/vomiting. fluticasone (FLONASE) 50 mcg/actuation nasal spray Use 2 Sprays in each nostril once daily. Rinse mouth after use. cyclobenzaprine (FLEXERIL) 10 mg tablet Take 1 tablet by mouth three times a day as needed for muscle spasm. ofloxacin (FLOXIN) 0.3 % otic solution Use 5 Drops in both ears once daily. Nebulizer Accessories misc 1 Each as directed. Nebulizer tubing and mouth piece. faxed to CPAP autoCPAP 5-15 cmH2O, mask, tubing, filters, heated humidity, lifetime supplies. Dx: TRINI Nebulizer 1 Each as neede (more content not included)... Normal [facility] CBC W Auto Differential pane l (Bld)on 11-12-2023 Basophils (Bld) [#/Vol] 0.13 10*3/uL High [facility] Basophils/100 WBC (Bld) 1.0 % [facility] Differential cell count method Nom (Bld) Auto [facility] Eosinophils (Bld) [#/Vol] 0.23 10*3/uL [facility] Eosinophils/100 WBC (Bld) 1.8 % [facility] Erythrocyte distribution width (RBC) [Ratio] 13.7 % 11.5 - 15.0 % [facility] Hematocrit (Bld) [Volume fraction] 49.8 % High 36.0 - 46.0 % [facility] Hemoglobin (Bld) [Mass/Vol] 16.5 g/dL High 11.5 - 15.5 g/dL [facility] Immature granulocytes (Bld) [#/Vol] 0.09 10*3/uL [facility] Immature granulocytes/100 WBC (Bld) 0.7 % [facility] Interpretation and review of laboratory results Abnormal [facility] Lymphocytes (Bld) [#/Vol] 3.72 10*3/uL [facility] Lymphocytes/100 WBC (Bld) 29.2 % [facility] MCH (RBC) [Entitic mass] 30.6 pg 26.0 - 34.[address] [facility] MCHC (RBC) [Mass/Vol] 33.1 g/dL 30.5 - 36.0 g/dL [facility] MCV (RBC) [Entitic vol] 92.4 fL 80.0 - 100.[address] [facility] Monocytes (Bld) [#/Vol] 0.90 10*3/uL High [facility] Monocytes/100 WBC (Bld) 7.1 % [facility] Neutrophils (Bld) [#/Vol] 7.65 10*3/uL High [facility] Neutrophils/100 WBC (Bld) 60.2 % [facility] Nucleated RBC (Bld) [#/Vol] [facility] Nucleated RBC/100 WBC (Bld) [Ratio] 0.0 % /[address] [facility] Platelet mean volume (Bld) [Entitic vol] 11.4 fL 9.0 - 12.[address] [facility] Platelets (Bld) [#/Vol] 225 10*3/uL [facility] RBC (Bld) [#/Vol] 5.39 10*6/uL High 3.90 - 5.20 m/uL [facility] WBC (Bld) [#/Vol] 12.72 10*3/uL High [facility] Comprehensive metabolic 2000 panelon 11-12-2023 Albumin [Mass/Vol] 4.2 g/dL 3.9 - 4.9 g/dL [facility] ALP [Catalytic activity/Vol] 138 U/L High 34 - 123 U/L [facility] ALT [Catalytic activity/Vol] 27 U/L 7 - 38 U/L [facility] Anion gap [Moles/Vol] 14 mmol/L 9 - 18 mmol/L [facility] AST [Catalytic activity/Vol] 18 U/L 13 - 35 U/L [facility] Bilirubin [Mass/Vol] 0.5 mg/dL 0.2 - 1 .3 mg/dL [facility] Calcium [Mass/Vol] 9.3 mg/dL 8.5 - 10. 2 mg/dL [facility] Chloride [Moles/Vol] 101 mmol/L 97 - 10 5 mmol/L [facility] CO2 [Moles/Vol] 23 mmol/L 22 - 30 mmol/L [facility] Creatinine [Mass/Vol] 0.82 mg/dL 0.58 - 0.96 mg/dL [facility] GFR/1.73 sq M.predicted among non-blacks MDRD (S/P/Bld) [Vol rate/Area] 81 mL/min/{1.73_m2} - PINF [facility] Comment on above: Estimated Glomerular Filtration Rate (eGFR) is calculated using the 2020 CKD-EPI creatinine equation. This equation utilizes serum creatinine, sex, and age as parameters. The creatinine assay has traceable calibration to isotope dilution-mass spectrometry. Refer to KDIGO guidelines for clinical interpretation. In patients with unstable renal function, e.g. those with acute kidney injury, the eGFR may not accurately reflect actual GFR. Glucose [Mass/Vol] 92 mg/dL 74 - 99 mg/dL [facility] Comment on above: The [place] Diab[employer] s Association (ADA) provides guidance for cutoff values for fasting glucose and random glucose. The ADA defines fasting as no caloric intake for at least 8 hours. Fasting plasma glucose results between 100 to 125 mg/dL indicate increased risk for diabetes (prediabetes). Fasting plasma glucose results greater than or equal to 126 mg/dL meet the criteria for diagnosis of diabetes. In the absence of unequivocal hyperglycemia, results should be confirmed by repeat testing. In a patient with classic symptoms of hyperglycemia or hyperglycemic crisis, random plasma glucose results greater than or equal to 200 mg/dL meet the criteria for diagnosis of diabetes. Reference: Standards of Medical Care in Diabetes 2016, [place] [employer] Association. Diabetes Care. 2016.39(Suppl 1). Interpretation and review of laboratory results Abnormal [facility] Potassium [Moles/Vol] 4.8 mmol/L 3.7 - 5.1 mmol/L [facility] Protein [Mass/Vol] 7.5 g/dL 6.3 - 8.0 g/dL [facility] Sodium [Moles/Vol] 138 mmol/L 136 - 144 mmol/L [facility] Urea nitrogen [Mass/Vol] 22 mg/dL High 7 - 21 mg/dL [facility] HbA1c (Bld)on 11-12-2023 Average glucose Estimated from glycated hemoglobin (Bld) [Mass/Vol] 128 mg/dL [facility] Comment on above: eAG: (Estimated aver age glucose) is a calculated value from HgbA1c and is employee representative of the average blood glucose level in the last 2-3 month period. HbA1c (Bld) [Mass fraction] 6.1 % High 4.3 - 5.6 % [facility] Comment on above: [place] Diabetes As sociation guidelines indicate that patients with HgbA1c in the range 5.7-6.4% are at increased risk for development of diabetes, and intervention by lifestyle modification may be beneficial. HgbA1c greater or equal to 6.5% is considered diagnostic of diabetes. Interpretation and review of laboratory results Abnormal [facility] LIPID PANEL, NONFASTINGon Cholesterol [Mass/Vol] 165 mg/dL NINF - 200 mg/dL [facility] Comment on above: <200 mg/dL, Desirabl e 200-239 mg/dL, Borderline high >239 mg/dL, High HDL Cholesterol, Nonfasting 49 mg/dL 39 - PINF mg/dL [facility] Comment on above: 40-59 mg/dL, Accepta ble >59 mg/dL, High: Negative risk factor for coronary heart disease <40 mg/dL, Low: Positive risk factor for coronary heart disease Interpretation and review of laboratory results Normal [facility] LDL Cholesterol, Nonfasting 93 mg/dL NINF - 100 mg/dL [facility] Comment on above: <100 mg/dL, Optimal 100-129 mg/dL, Near optimal/above optimal 130-159 mg/dL, Borderline high 160-189 mg/dL, High >189 mg/dL, Very high Secondary prevention optimal LDL Cholesterol levels are recommended to be < 70 mg/dL LDL/HDL Ratio, Nonfasting 1.90 mg/dL NINF - 2.54 mg/dL [facility] Comment on above: Reference: 1. National Cholesterol Education Program ATP III Guideline At-A-Glance Quick Desk Reference: National Heart, Lung, and Blood [place]. National Institutes of Health. 2001: NIH Publication No. 01-3305. 2. An International Atherosclerosis Society position paper: global recommendations for the management of dyslipidemia: executive summary, Atherosclerosis. 2014: 232(2):410-413. Non HDL Cholesterol, Nonfasting 116 mg/dL NINF - 130 mg/dL [facility] Comment on above: <130 mg/dL, Optimal 130-159 mg/dL, Near optimal/above optimal 160-189 mg/dL, Borderline high 190-219 mg/dL, High >219 mg/dL, Very high Secondary prevention optimal non HDL Cholesterol levels are recommended to be <100 mg/dL Total Chol/HDL Ratio, Nonfasting 3.37 mg/dL NINF - 5.10 mg/dL [facility] Triglycerides, Nonfasting 117 mg/dL NINF - 150 mg/dL [facility] Comment on above: <150 mg/dL, Normal 150-199 mg/dL, Borderline high 200-499 mg/dL, High >499 mg/dL, Very high VLDL Cholesterol, Nonfasting 23 mg/dL NINF - 30 mg/dL [facility] No Panel Informationon 11-11 [facility] THYROID STIMULATING HORMONEo n 11-12-2023 TSH Qn 1.050 m[IU]/L [facility] TSH Qnon 11-12-2023 Interpretation and review of laboratory results Normal [facility] .Auto Diffon 08-24-2023 Basophil, Absolute 0.0 10 3/mcL Normal 0.0-0.3 [facility] ([place]) Comment on above: Performed By: #### L AC, CBC, ADIFF, GFR, MORPH, CMP, ANEU, MG #### [address] [address] Basophils/100 WBC (Bld) 0.2 % Normal 0.0-2.5 [facility] ([place]) Comment on above: Performed By: #### L AC, CBC, ADIFF, GFR, MORPH, CMP, ANEU, MG #### [address] [address] Eosinophil, Absolute 0.1 10 3/mcL Normal 0.0-0.7 [facility] ([place]) Comment on above: Performed By: #### L AC, CBC, ADIFF, GFR, MORPH, CMP, ANEU, MG #### [address] [address] Eosinophils/100 WBC (Bld) 0.7 % Normal 0.0-6.0 [facility] ([place]) Comment on above: Performed By: #### L AC, CBC, ADIFF, GFR, MORPH, CMP, ANEU, MG #### [address] [address] Lymphocyte, Absolute 2.5 10 3/mcL Normal 0.9-4.3 [facility] ([place]) Comment on above: Performed By: #### L AC, CBC, ADIFF, GFR, MORPH, CMP, ANEU, MG #### [address] [address] Lymphocytes/100 WBC (Bld) 14.7 % Low 20.0-40.0 [facility] ([place]) Comment on above: Performed By: #### L AC, CBC, ADIFF, GFR, MORPH, CMP, ANEU, MG #### [address] [address] Monocyte, Absolute 1.2 10 3/mcL Normal 0.1-1.4 [facility] ([place]) Comment on above: Performed By: #### L AC, CBC, ADIFF, GFR, MORPH, CMP, ANEU, MG #### [address] [address] Monocytes/100 WBC (Bld) 7.3 % Normal 2.0-13.0 [facility] ([place]) Comment on above: Performed By: #### L AC, CBC, ADIFF, GFR, MORPH, CMP, ANEU, MG #### [address] [address] Neutrophils/100 WBC (Bld) 77.1 % High 50.0-75.0 [facility] ([place]) Comment on above: Performed By: #### L AC, CBC, ADIFF, GFR, MORPH, CMP, ANEU, MG #### [address] [address] .GFRon 08-24-2023 GFR Non- >60 Normal [facility] ([place]) Comment on above: Result Comment: GFR Population mean for , Non- Americans Ages 20-29 = 116 mL/min/1.73 sq.m. Ages 30-39 = 107 mL/min/1.73 sq.m. Ages 40-49 = 99 mL/min/1.73 sq.m. Ages 50-59 = 93 mL/min/1.73 sq.m. Ages 60-69 = 85 mL/min/1.73 sq.m. Ages 70+ = 75 mL/min/1.73 sq.m. Chronic Kidney Disease: Less than 60 mL/min/1.73 square meters End Stage Renal Disease: Less than 15 mL/min/1.73 square meters Performed By: #### L AC, CBC, ADIFF, GFR, MORPH, CMP, ANEU, MG #### [place] [address] GFR >60 Normal [facility] ([place]) Comment on above: Result Comment: GFR Population mean for , Non- Americans Ages 20-29 = 116 mL/min/1.73 sq.m. Ages 30-39 = 107 mL/min/1.73 sq.m. Ages 40-49 = 99 mL/min/1.73 sq.m. Ages 50-59 = 93 mL/min/1.73 sq.m. Ages 60-69 = 85 mL/min/1.73 sq.m. Ages 70+ = 75 mL/min/1.73 sq.m. Chronic Kidney Disease: Less than 60 mL/min/1.73 square meters End Stage Renal Disease: Less than 15 mL/min/1.73 square meters Performed By: #### L AC, CBC, ADIFF, GFR, MORPH, CMP, ANEU, MG #### [address] [address] .Morphon 08-24-2023 Platelet Estimate Normal Normal [facility] ([place]) Comment on above: Performed By: #### L AC, CBC, ADIFF, GFR, MORPH, CMP, ANEU, MG #### [place] [address] RBC morphology finding Nom (Bld) See Below Normal [facility] ([place]) Comment on above: Result Comment: RBC Morphology appears Normal See Below RBC Morphology appears Normal Performed By: #### L AC, CBC, ADIFF, GFR, MORPH, CMP, ANEU, MG #### [address] [address] .NEUABSon 08-24-2023 Neutrophil, Absolute 12.8 10 3/mcL High 2.3-8.1 [facility] [facility] ([place] Comment on above: Performed By: #### L AC, CBC, ADIFF, GFR, MORPH, CMP, ANEU, MG #### [place] [address] A1Con 08-24-2023 HbA1c (Bld) [Mass fraction] 6.2 % High 4.0-6.0 [facility] ([place]) Comment on above: Performed By: #### L AC, CBC, ADIFF, GFR, MORPH, CMP, ANEU, MG #### [place] [address] CBCon 08-24-2023 Platelet 224 10 3/mcL Normal 150-450 [facility] ([place]) Comment on above: Performed By: #### L AC, CBC, ADIFF, GFR, MORPH, CMP, ANEU, MG #### [place] [address] Platelet mean volume (Bld) [Entitic vol] 9.2 fL Normal 6.6-10.5 [facility] ([place]) Comment on above: Performed By: #### L AC, CBC, ADIFF, GFR, MORPH, CMP, ANEU, MG #### [place] [id number] Erythrocyte distribution width (RBC) [Ratio] 14.5 % Normal 11.5-15.5 [facility] ([place] Comment on above: Performed By: #### L AC, CBC, ADIFF, GFR, MORPH, CMP, ANEU, MG #### [place] [address] Hematocrit (Bld) [Volume fraction] 44.8 % Normal 34.0-46.0 [facility] ([place] Comment on above: Performed By: #### L AC, CBC, ADIFF, GFR, MORPH, CMP, ANEU, MG #### [place] [address] Hgb 14.8 G/dL Normal 12.0-16.0 [facility] ([place] Comment on above: Performed By: #### L AC, CBC, ADIFF, GFR, MORPH, CMP, ANEU, MG #### [place] [address] MCH (RBC) [Entitic mass] 30.3 pg Normal 27.0-33.0 [facility] ([place] Comment on above: Performed By: #### L AC, CBC, ADIFF, GFR, MORPH, CMP, ANEU, MG #### [place] [address] MCHC 33.1 G/dL Normal 32.0-36.0 [facility] ([place]) Comment on above: Performed By: #### L AC, CBC, ADIFF, GFR, MORPH, CMP, ANEU, MG #### [place] [address] MCV (RBC) [Entitic vol] 91.6 fL Normal 80.0-99.0 [facility] ([place] Comment on above: Performed By: #### L AC, CBC, ADIFF, GFR, MORPH, CMP, ANEU, MG #### [place] [address] RBC 4.89 10 6/mcL Normal 4.10-5.30 [facility] ([place] Comment on above: Performed By: #### L AC, CBC, ADIFF, GFR, MORPH, CMP, ANEU, MG #### [place] [address] WBC 16.7 10 3/mcL High 4.5-10.8 [facility] ([place]) Comment on above: Performed By: #### L AC, CBC, ADIFF, GFR, MORPH, CMP, ANEU, MG #### [place] [address] CMPon 08-24-2023 Albumin Level 3.7 G/dL Normal 3.2-4.8 [facility] ([place] Comment on above: Performed By: #### L AC, CBC, ADIFF, GFR, MORPH, CMP, ANEU, MG #### [place] [address] Albumin/Globulin [Mass ratio] 1.0 {ratio} Normal 0.9-1.6 [facility] ([place] Comment on above: Performed By: #### L AC, CBC, ADIFF, GFR, MORPH, CMP, ANEU, MG #### [place] [id number] ALP [Catalytic activity/Vol] 101 U/L Normal 38-126 [facility] ([place]) Comment on above: Performed By: #### L AC, CBC, ADIFF, GFR, MORPH, CMP, ANEU, MG #### [place] [address] ALT [Catalytic activity/Vol] 18 U/L Normal 10-49 [facility] ([place] Comment on above: Performed By: #### L AC, CBC, ADIFF, GFR, MORPH, CMP, ANEU, MG #### [place] [address] AST [Catalytic activity/Vol] 17 U/L Normal 8-34 [facility] ([place]) Comment on above: Performed By: #### L AC, CBC, ADIFF, GFR, MORPH, CMP, ANEU, MG #### [place] [id number] Bili Total 0.40 mg/dL Normal 0.20-1.20 [facility] ([place]) Comment on above: Result Comment: Use of this assay is not recommended for patients undergoing treatment with eltrombopag due to the potential for falsely elevated results. Performed By: #### L AC, CBC, ADIFF, GFR, MORPH, CMP, ANEU, MG #### [place] [address] BUN/Creatinine Ratio 14.7 ratio Normal 10.0-22.0 [facility] ([place]) Comment on above: Performed By: #### L AC, CBC, ADIFF, GFR, MORPH, CMP, ANEU, MG #### [place] [id number] Calcium [Mass/Vol] 9.3 mg/dL Normal 8.7-10.4 [facility] ([place]) Comment on above: Performed By: #### L AC, CBC, ADIFF, GFR, MORPH, CMP, ANEU, MG #### [place] [id number] Chloride [Moles/Vol] 106 mmol/L Normal 98-110 [facility] ([place]) Comment on above: Performed By: #### L AC, CBC, ADIFF, GFR, MORPH, CMP, ANEU, MG #### [place] [phone] CO2 [Moles/Vol] 28 mmol/L Normal 22-32 [facility] ([place]) Comment on above: Performed By: #### L AC, CBC, ADIFF, GFR, MORPH, CMP, ANEU, MG #### [place] [address] Creatinine [Mass/Vol] 0.68 mg/dL Normal 0.50-1.20 [facility] ([place]) Comment on above: Performed By: #### L AC, CBC, ADIFF, GFR, MORPH, CMP, ANEU, MG #### [place] [address] Electrolyte Balance 3.0 mEq/L Low 4.0-15.0 [facility] ([place]) Comment on above: Performed By: #### L AC, CBC, ADIFF, GFR, MORPH, CMP, ANEU, MG #### [place] [id number] Globulin 3.7 G/dL Normal 1.5-3.8 [facility] ([place]) Comment on above: Performed By: #### L AC, CBC, ADIFF, GFR, MORPH, CMP, ANEU, MG #### [place] [address] Glucose [Mass/Vol] 123 mg/dL High 82-115 [facility] ([place]) Comment on above: Performed By: #### L AC, CBC, ADIFF, GFR, MORPH, CMP, ANEU, MG #### [address] [address] Potassium [Moles/Vol] 4.2 mmol/L Normal 3.5-5.0 [facility] ([place]) Comment on above: Result Comment: Spec imen slightly hemolyzed. Performed By: #### L AC, CBC, ADIFF, GFR, MORPH, CMP, ANEU, MG #### [address] [address] Sodium [Moles/Vol] 137 mmol/L Normal 136-145 [facility] ([place]) Comment on above: Performed By: #### L AC, CBC, ADIFF, GFR, MORPH, CMP, ANEU, MG #### [place] [address] Total Protein 7.4 G/dL Normal 5.7-8.2 [facility]) Comment on above: Result Comment: No te - New Reference Range in effect 20 Performed By: #### L AC, CBC, ADIFF, GFR, MORPH, CMP, ANEU, MG #### [place] [address] Urea nitrogen [Mass/Vol] 10.0 mg/dL Normal 8.0-22.0 [facility] ([place]) Comment on above: Performed By: #### L AC, CBC, ADIFF, GFR, MORPH, CMP, ANEU, MG #### [place] [address] LABORATORYOrdered By: SYSTEM SYSTEM on 08-24-2023 Troponin I.cardiac DL <= 0.01 ng/mL [Mass/Vol] 3.00 ng/L Normal 0.00 - 34.00 ng/L ADM SS HbA1c (Bld) [Mass fraction] 6.2 % High 4.0 - 6.0 % AH Auto Chem SS TSH Qn 1.534 mIU/mL Normal 0.550 - 4.780 mIU/mL ADM SS Comment on above: Interpretive Data: * *Note - New Reference Range in effect 20 Albumin BCP dye [Mass/Vol] 3.7 G/dL Normal 3.2 - 4.8 G/dL ADM SS Albumin/Globulin [Mass ratio] 1.0 {ratio} Normal 0.9 - 1.6 ratio ADM SS ALP [Catalytic activity/Vol] 101 U/L Normal 38 - 126 U/L ADM SS ALT No additional P-5'-P [Catalytic activity/Vol] 18 U/L Normal 10 - 49 U/L ADM SS AST [Catalytic activity/Vol] 17 U/L Normal 8 - 34 U/L ADM SS Basophils (Bld) [#/Vol] 0.0 103/mcL Normal 0.0 - 0.3 10^3/mcL Workflow SS Basophils/100 WBC (Bld) 0.2 % Normal 0.0 - 2.5 % Workflow SS Bilirubin [Mass/Vol] 0.40 mg/dL Normal 0.20 - 1.20 mg/dL ADM SS Comment on above: Interpretive Data: U se of this assay is not recommended for patients undergoing treatment with eltrombopag due to the potential for falsely elevated results. Calcium [Mass/Vol] 9.3 mg/dL Normal 8.7 - 10. 4 mg/dL ADM SS Chloride [Moles/Vol] 106 mmol/L Normal 98 - 11 0 mEq/L ADM SS CO2 [Moles/Vol] 28 mmol/L Normal 22 - 32 mEq/L ADM SS Creatinine [Mass/Vol] 0.68 mg/dL Normal 0.50 - 1.20 mg/dL ADM SS Electrolyte Balance 3.0 mEq/L Low 4.0 - 15 .0 mEq/L ADM SS Eosinophils (Bld) [#/Vol] 0.1 103/mcL Normal 0.0 - 0.7 10^3/mcL Workflow SS Eosinophils/100 WBC (Bld) 0.7 % Normal 0.0 - 6.0 % Workflow SS Erythrocyte distribution width (RBC) [Ratio] 14.5 % Normal 11.5 - 15.5 % Workflow SS GFR/1.73 sq M.predicted among blacks MDRD (S/P/Bld) [Vol rate/Area] ml/min/1.73sqm Invalid Interpretation Code ADM SS Comment on above: Interpretive Data: GFR Population mean for , Non- Americans Ages 20-29 = 116 mL/min/1.73 sq.m. Ages 30-39 = 107 mL/min/1.73 sq.m. Ages 40-49 = 99 mL/min/1.73 sq.m. Ages 50-59 = 93 mL/min/1.73 sq.m. Ages 60-69 = 85 mL/min/1.73 sq.m. Ages 70+ = 75 mL/min/1.73 sq.m. Chronic Kidney Disease: Less than 60 mL/min/1.73 square meters End Stage Renal Disease: Less than 15 mL/min/1.73 square meters GFR/1.73 sq M.predicted among non-blacks MDRD (S/P/Bld) [Vol rate/Area] ml/min/1.73sqm Invalid Interpretation Code ADM SS Comment on above: Interpretive Data: GFR Population mean for , Non- Americans Ages 20-29 = 116 mL/min/1.73 sq.m. Ages 30-39 = 107 mL/min/1.73 sq.m. Ages 40-49 = 99 mL/min/1.73 sq.m. Ages 50-59 = 93 mL/min/1.73 sq.m. Ages 60-69 = 85 mL/min/1.73 sq.m. Ages 70+ = 75 mL/min/1.73 sq.m. Chronic Kidney Disease: Less than 60 mL/min/1.73 square meters End Stage Renal Disease: Less than 15 mL/min/1.73 square meters Globulin 3.7 G/dL Normal 1.5 - 3.8 G/dL ADM SS Glucose [Mass/Vol] 123 mg/dL High 82 - 115 mg/dL ADM SS Hematocrit (Bld) [Volume fraction] 44.8 % Normal 34.0 - 46.0 % Workflow SS Hemoglobin (Bld) [Mass/Vol] 14.8 G/dL Normal 12.0 - 16.0 G/dL Workflow SS Lymphocytes (Bld) [#/Vol] 2.5 103/mcL Normal 0.9 - 4.3 10^3/mcL Workflow SS Lymphocytes/100 WBC (Bld) 14.7 % Low 20.0 - 40.0 % Workflow SS Magnesium [Mass/Vol] 1.8 mg/dL Normal 1.6 - 2 .4 mg/dL ADM SS MCH (RBC) [Entitic mass] 30.3 pg Normal 27.0 - 33.0 pg AH Workflow SS MCHC 33.1 G/dL Normal 32.0 - 36.0 G/dL Workflow SS MCV (RBC) [Entitic vol] 91.6 fL Normal 80.0 - 99.0 fL AH Workflow SS Monocytes (Bld) [#/Vol] 1.2 103/mcL Normal 0.1 - 1.4 10^3/mcL AH Workflow SS Monocytes/100 WBC (Bld) 7.3 % Normal 2.0 - 13.0 % AH Workflow SS Neutrophils (Bld) [#/Vol] 12.8 103/mcL High 2.3 - 8.1 10^3/mcL AH Workflow SS Neutrophils/100 WBC (Bld) 77.1 % High 50.0 - 75.0 % AH Workflow SS Platelet mean volume (Bld) [Entitic vol] 9.2 fL Normal 6.6 - 10.5 fL Workflow SS Platelets (Bld) [#/Vol] 224 103/mcL Normal 150 - 450 10^3/mcL AH Workflow SS Platelets LM Ql (Bld) Normal *NA* (08/24/23 3:32 AM) Invalid Interpretation Code Workflow SS Potassium [Moles/Vol] 4.2 mmol/L Normal 3.5 - 5.0 mEq/L [facility] Comment on above: Result Comment: Spec imen slightly hemolyzed. Protein [Mass/Vol] 7.4 G/dL Normal 5.7 - 8.2 G/dL ADM Comment on above: Interpretive Data: * *Note - New Reference Range in effect 20 RBC (Bld) [#/Vol] 4.89 106/mcL Normal 4.10 - 5.30 10^6/mcL Workflow SS RBC morphology finding Nom (Bld) See Below 3 *NA* (08/24/23 3:32 AM) Invalid Interpretation Code Workflow SS Comment on above: Result Comment: RBC Morphology appears Normal RBC morphology finding Nom (Bld) See Below 4 *NA* (08/24/23 3:32 AM) Invalid Interpretation Code Workflow SS Comment on above: Result Comment: RBC Morphology appears Normal Sodium [Moles/Vol] 137 mmol/L Normal 136 - 145 mEq/L ADM SS Troponin I.cardiac DL <= 0.01 ng/mL [Mass/Vol] 3.00 ng/L Normal 0.00 - 34.00 ng/L AH ADM SS Urea nitrogen [Mass/Vol] 10.0 mg/dL Normal 8.0 - 22.0 mg/dL ADM SS Urea nitrogen/Creatinine [Mass ratio] 14.7 ratio Normal 10.0 - 22.0 ratio ADM SS WBC (Bld) [#/Vol] 16.7 103/mcL High 4.5 - 10.8 10^3/mcL Workflow SS LABORATORYOrdered By: Delfino Cardenas on 08-24-2023 Cholesterol [Mass/Vol] 145 mg/dL Normal 50 - 199 mg/dL ADM SS Comment on above: Interpretive Data: C holesterol Reference Interval: Less than 200 Desirable 200-239 Borderline high risk 240 and above High risk Cholesterol in HDL [Mass/Vol] 40 mg/dL Normal 40 - 59 mg/dL ADM SS Cholesterol in LDL [Mass/Vol] 83 mg/dL Normal 0 - 129 mg/dL ADM SS Triglyceride [Mass/Vol] 111 mg/dL Normal 3 - 149 mg/dL ADM SS LABORATORYOrdered By: Colt Tapia on 08-24-2023 Lactate [Moles/Vol] 1.9 mmol/L Normal 0.2 - 2. 0 mmol/L Auto Chem SS LACon 08-24-2023 Lactic Acid Lvl 1.9 mmol/L Normal 0.2-2.0 [facility] ([place]) Comment on above: Performed By: #### L AC, CBC, ADIFF, GFR, MORPH, CMP, ANEU, MG #### [address] [address] LIPIDon 08-24-2023 Cholesterol [Mass/Vol] 145 mg/dL Normal 50-199 [facility] ([place]) Comment on above: Result Comment: Chol esterol Reference Interval: Less than 200 Desirable 200-239 Borderline high risk 240 and above High risk Performed By: #### T SH, LIPID, A1C #### [address] [address] Cholesterol in HDL [Mass/Vol] 40 mg/dL Normal 40-59 [facility] ([place]) Comment on above: Performed By: #### T SH, LIPID, A1C #### [address] [address] Cholesterol in LDL [Mass/Vol] 83 mg/dL Normal 0-129 [facility] ([place]) Comment on above: Performed By: #### T SH, LIPID, A1C #### [address] [address] Triglyceride [Mass/Vol] 111 mg/dL Normal 3-149 [facility] ([place]) Comment on above: Performed By: #### T SH, LIPID, A1C #### [address] [address] MGon 08-24-2023 Magnesium [Mass/Vol] 1.8 mg/dL Normal 1.6-2.4 [facility] ([place]) Comment on above: Performed By: #### L AC, CBC, ADIFF, GFR, MORPH, CMP, ANEU, MG #### [address] [address] TROPHSon 08-24-2023 Troponin I High Sensitivity 3.00 ng/L Normal 0.00-34.00 [facility] ([place]) Comment on above: Performed By: #### T SH, LIPID, A1C #### [place] [address] Troponin I High Sensitivity 3.00 ng/L Normal 0.00-34.00 [facility] ([place]) Comment on above: Performed By: #### L AC, CBC, ADIFF, GFR, MORPH, CMP, ANEU, MG #### [address] [address] TSHon 08-24-2023 TSH 1.534 mIU/mL Normal 0.550-4.78 0 [facility] ([place]) Comment on above: Result Comment: No te - New Reference Range in effect 20 Performed By: #### T SH, LIPID, A1C #### [address] [address] XR CHEST 1 VIEWon 08-24-2023 XR CHEST 1 VIEW ORIGINAL EXAMINATION: ONE XRAY VIEW OF THE CHEST 08/24/2023 5:14 am COMPARISON: Chest x-ray and CT chest on 08/23/2023. HISTORY: ORDERING SYSTEM PROVIDED HISTORY: Reason for Exam: Chest Pain FINDINGS: The heart size is at the upper limits of normal. Lung markings are crowded due to hypoventilation of the lungs. There is mild scarring in left lower lung zone that is unchanged since 02/28/2023. There is no acute lung infiltrate or edema. No pneumothorax or pleural fluid is present. IMPRESSION: Mild scarring in left lower lung zone. No acute abnormality. Interpreted by: Brandin Singleton MD Preliminary Report By: Brandin Singleton MD Electronically signed By Brandin Singleton MD Dictated Date: 08/24/2023 5:22:47 AM Prelim Date: 08/24/2023 5:24:15 AM Sign Date: 08/24/2023 5:24:15 AM Ordering Provider: GEORGE Carrillo [facility] ([place]) .Auto Diffon 08-23-2023 Basophil, Absolute 0.1 10 3/mcL Normal 0.0-0.2 [facility] ([place]) Comment on above: Performed By: #### L AC, CBC, ADIFF, GFR, MORPH, CMP, ANEU, MG #### [address] [address] Basophils/100 WBC (Bld) 0.8 % Normal 0.0-2.5 [facility] ([place]) Comment on above: Performed By: #### L AC, CBC, ADIFF, GFR, MORPH, CMP, ANEU, MG #### [address] [address] Eosinophil, Absolute 0.2 10 3/mcL Normal 0.0-0.4 [facility] ([place]) Comment on above: Performed By: #### L AC, CBC, ADIFF, GFR, MORPH, CMP, ANEU, MG #### [address] [address] Eosinophils/100 WBC (Bld) 1.6 % Normal 0.0-7.0 [facility] ([place]) Comment on above: Performed By: #### L AC, CBC, ADIFF, GFR, MORPH, CMP, ANEU, MG #### [address] [address] Lymphocyte, Absolute 2.8 10 3/mcL Normal 0.8-3.9 [facility] ([place]) Comment on above: Performed By: #### L AC, CBC, ADIFF, GFR, MORPH, CMP, ANEU, MG #### [address] [address] Lymphocytes/100 WBC (Bld) 27.0 % Normal 10.0-50.0 [facility] ([place] Comment on above: Performed By: #### L AC, CBC, ADIFF, GFR, MORPH, CMP, ANEU, MG #### [address] [address] Monocyte, Absolute 0.7 10 3/mcL Normal 0.2-1.0 [facility] ([place]) Comment on above: Performed By: #### L AC, CBC, ADIFF, GFR, MORPH, CMP, ANEU, MG #### [address] [address] Monocytes/100 WBC (Bld) 6.4 % Normal 1.7-13.0 [facility] ([place] Comment on above: Performed By: #### L AC, CBC, ADIFF, GFR, MORPH, CMP, ANEU, MG #### [address] [address] Neutrophils/100 WBC (Bld) 64.2 % Normal 37.0-80.0 [facility] ([place]) Comment on above: Performed By: #### L AC, CBC, ADIFF, GFR, MORPH, CMP, ANEU, MG #### [address] [address] .GFRon 08-23-2023 GFR 74 ml/min/1.73sqm Normal [facility] ([place]) Comment on above: Result Comment: GFR Population mean for , Non- Americans Ages 20-29 = 116 mL/min/1.73 sq.m. Ages 30-39 = 107 mL/min/1.73 sq.m. Ages 40-49 = 99 mL/min/1.73 sq.m. Ages 50-59 = 93 mL/min/1.73 sq.m. Ages 60-69 = 85 mL/min/1.73 sq.m. Ages 70+ = 75 mL/min/1.73 sq.m. Chronic Kidney Disease: Less than 60 mL/min/1.73 square meters End Stage Renal Disease: Less than 15 mL/min/1.73 square meters Performed By: #### L AC, CBC, ADIFF, GFR, MORPH, CMP, ANEU, MG #### [address] [address] GFR Non- 61 ml/min/1.73sqm Normal [facility] ([place]) Comment on above: Result Comment: GFR Population mean for , Non- Americans Ages 20-29 = 116 mL/min/1.73 sq.m. Ages 30-39 = 107 mL/min/1.73 sq.m. Ages 40-49 = 99 mL/min/1.73 sq.m. Ages 50-59 = 93 mL/min/1.73 sq.m. Ages 60-69 = 85 mL/min/1.73 sq.m. Ages 70+ = 75 mL/min/1.73 sq.m. Chronic Kidney Disease: Less than 60 mL/min/1.73 square meters End Stage Renal Disease: Less than 15 mL/min/1.73 square meters Performed By: #### L AC, CBC, ADIFF, GFR, MORPH, CMP, ANEU, MG #### [address] [address] .MDWon 08-23-2023 Monocyte Distribution Width 18.23 Normal 0.00-20.00 [facility] ([place]) Comment on above: Result Comment: For ED adult patients suspected of sepsis, MDW<=20.0 does not rule out sepsis or risk of sepsis Performed By: #### L AC, CBC, ADIFF, GFR, MORPH, CMP, ANEU, MG #### [address] [address] .NEUABSon 08-23-2023 Neutrophil, Absolute 6.7 10 3/mcL High 2.9-6.2 [facility] ([place]) Comment on above: Performed By: #### L AC, CBC, ADIFF, GFR, MORPH, CMP, ANEU, MG #### [address] [address] BMPon 08-23-2023 BUN/Creatinine Ratio 13 ratio Normal 7-27 [facility] ([place]) Comment on above: Performed By: #### L AC, CBC, ADIFF, GFR, MORPH, CMP, ANEU, MG #### [address] [address] Calcium [Mass/Vol] 8.9 mg/dL Normal 8.4-10.2 [facility] ([place]) Comment on above: Performed By: #### L AC, CBC, ADIFF, GFR, MORPH, CMP, ANEU, MG #### [address] [address] Chloride [Moles/Vol] 103 mmol/L Normal 98-107 [facility] ([place]) Comment on above: Performed By: #### L AC, CBC, ADIFF, GFR, MORPH, CMP, ANEU, MG #### [place] [id number] CO2 [Moles/Vol] 30 mmol/L Normal 23-31 [facility] ([place]) Comment on above: Performed By: #### L AC, CBC, ADIFF, GFR, MORPH, CMP, ANEU, MG #### [address] [address] Creatinine [Mass/Vol] 0.93 mg/dL Normal 0.55-1.02 [facility] ([place]) Comment on above: Performed By: #### L AC, CBC, ADIFF, GFR, MORPH, CMP, ANEU, MG #### [address] [address] Electrolyte Balance 7.0 mEq/L Normal 4.0-15.0 [facility] ([place]) Comment on above: Performed By: #### L AC, CBC, ADIFF, GFR, MORPH, CMP, ANEU, MG #### [place] [id number] Glucose [Mass/Vol] 138 mg/dL High 80-115 [facility] ([place]) Comment on above: Performed By: #### L AC, CBC, ADIFF, GFR, MORPH, CMP, ANEU, MG #### [address] [address] Potassium [Moles/Vol] 3.9 mmol/L Normal 3.5-5.1 [facility] ([place]) Comment on above: Performed By: #### L AC, CBC, ADIFF, GFR, MORPH, CMP, ANEU, MG #### [address] [address] Sodium [Moles/Vol] 140 mmol/L Normal 136-145 [facility] ([place] Comment on above: Performed By: #### L AC, CBC, ADIFF, GFR, MORPH, CMP, ANEU, MG #### [place] [id number] Urea nitrogen [Mass/Vol] 12 mg/dL Normal 7-18 [facility] ([place] Comment on above: Performed By: #### L AC, CBC, ADIFF, GFR, MORPH, CMP, ANEU, MG #### [place] [id number] CBCon 08-23-2023 Erythrocyte distribution width (RBC) [Ratio] 14.0 % Normal 11.5-14.5 [facility] ([place]) Comment on above: Performed By: #### L AC, CBC, ADIFF, GFR, MORPH, CMP, ANEU, MG #### [place] [address] Hematocrit (Bld) [Volume fraction] 44.5 % Normal 37.0-47.0 [facility] ([place]) Comment on above: Performed By: #### L AC, CBC, ADIFF, GFR, MORPH, CMP, ANEU, MG #### [address] [address] Hgb 15.4 G/dL Normal 12.0-16.0 [facility] ([place] Comment on above: Performed By: #### L AC, CBC, ADIFF, GFR, MORPH, CMP, ANEU, MG #### [place] [address] MCH (RBC) [Entitic mass] 31.3 pg High 27.0-31.2 [facility] ([place]) Comment on above: Performed By: #### L AC, CBC, ADIFF, GFR, MORPH, CMP, ANEU, MG #### [place] [address] MCHC 34.7 G/dL Normal 33.0-37.0 [facility] ([place] Comment on above: Performed By: #### L AC, CBC, ADIFF, GFR, MORPH, CMP, ANEU, MG #### [place] [address] MCV (RBC) [Entitic vol] 90.2 fL Normal 80.0-94.0 [facility] ([place] Comment on above: Performed By: #### L AC, CBC, ADIFF, GFR, MORPH, CMP, ANEU, MG #### [place] [address] Platelet 222 10 3/mcL Normal 130-400 [facility] ([place] Comment on above: Performed By: #### L AC, CBC, ADIFF, GFR, MORPH, CMP, ANEU, MG #### [place] [address] Platelet mean volume (Bld) [Entitic vol] 8.7 fL Normal 7.4-10.4 [facility] ([place] Comment on above: Performed By: #### L AC, CBC, ADIFF, GFR, MORPH, CMP, ANEU, MG #### [place] [address] RBC 4.93 10 6/mcL Normal 4.20-5.40 [facility] ([place]) Comment on above: Performed By: #### L AC, CBC, ADIFF, GFR, MORPH, CMP, ANEU, MG #### [place] [address] WBC 10.5 10 3/mcL Normal 4.6-10.8 [facility] ([place]) Comment on above: Performed By: #### L AC, CBC, ADIFF, GFR, MORPH, CMP, ANEU, MG #### [place] [address] CT ANGIOGRAPHY CHEST W/CONTR Gabriela 08-23-2023 CT ANGIOGRAPHY CHEST W/CONTRAST ORIGINAL EXAMINATION: CTA OF THE CHEST 08/23/2023 8:39 pm TECHNIQUE: CTA of the chest was performed after the administration of intravenous contrast. Multiplanar reformatted images are provided for review. MIP images are provided for review. Automated exposure control, iterative reconstruction, and/or weight based adjustment of the mA/kV was utilized to reduce the radiation dose to as low as reasonably achievable. COMPARISON: Same day chest x-ray. CT 02/28/2023. HISTORY: ORDERING SYSTEM PROVIDED HISTORY: Reason for Exam: chest pain/ back pain FINDINGS: Pulmonary Arteries: Pulmonary arteries are adequately opacified for evaluation. No evidence of intraluminal filling defect to suggest pulmonary embolism. Main pulmonary artery is normal in caliber. Mediastinum: Right hilar 1.2 cm lymph node (series 3, image 93). There are some calcified mediastinal lymph nodes, sequela of prior granulomatous disease. Heart is normal in size. No pericardial effusion. There is no acute abnormality of the thoracic aorta. Lungs/pleura: Minimal emphysematous changes near the right apex. There are few calcified granulomas. There are streaky areas of subsegmental consolidation scarring/atelectasis, particularly at the left lower lobe, similar to prior. Right upper lobe pneumonia seen on the prior CT has resolved. There is no pneumothorax or pleural effusion. The trachea and mainstem bronchi appear clear. Upper Abdomen: Limited images of the upper abdomen are unremarkable. Soft Tissues/Bones: No acute bone or soft tissue abnormality. There are degenerative changes spine which demonstrates increased kyphotic curvature. IMPRESSION: No evidence of pulmonary embolism or acute pulmonary abnormality. Right upper lobe pneumonia on prior CT has resolved. Indeterminate right hilar 1.2 cm lymph node. Recommend follow-up CT chest with IV contrast in 3-6 months. I have reviewed the resident's preliminary report and agree with findings and impression. Interpreted by: Beto Ledesma Preliminary Report By: Maltahi Bah Electronically signed By Beto Ledesma Dictated Date: 08/23/2023 8:48:33 PM Prelim Date: 08/23/2023 8:55:21 PM Sign Date: 08/23/2023 9:41:29 PM Ordering Provider: [facility] ([place] LABORATORYOrdered By: SYSTEM SYSTEM on 08-23-2023 Troponin I.cardiac DL <= 0.01 ng/mL [Mass/Vol] 4.0 ng/L Normal 0.0 - 51.4 ng/L AO ADM SS Natriuretic peptide.B prohormone N-Terminal [Mass/Vol] 14 pg/mL Normal 0 - 125 pg/mL AO ADM SS Comment on above: Interpretive Data: N T-proBNP results of less than 300 pg/mL effectively rules out acute congestive heart failure with 99% negative predictive value. Troponin I.cardiac DL <= 0.01 ng/mL [Mass/Vol] 6.0 ng/L Normal 0.0 - 51.4 ng/L AO ADM SS Basophil, Absolute 0.1 103/mcL Normal 0.0 - 0.2 10^3/mcL AO Workflow SS Basophils/100 WBC (Bld) 0.8 % Normal 0.0 - 2.5 % AO Workflow SS Calcium [Mass/Vol] 8.9 mg/dL Normal 8.4 - 10. 2 mg/dL AO ADM SS Chloride [Moles/Vol] 103 mmol/L Normal 98 - 10 7 mmol/L AO ADM SS CO2 [Moles/Vol] 30 mmol/L Normal 23 - 31 mmol/L AO ADM SS Creatinine [Mass/Vol] 0.93 mg/dL Normal 0.55 - 1.02 mg/dL AO ADM SS Electrolyte Balance 7.0 mEq/L Normal 4.0 - 15 .0 mEq/L AO ADM SS Eosinophil, Absolute 0.2 103/mcL Normal 0.0 - 0 .4 10^3/mcL AO Workflow SS Eosinophils/100 WBC (Bld) 1.6 % Normal 0.0 - 7.0 % AO Workflow SS Erythrocyte distribution width (RBC) [Ratio] 14.0 % Normal 11.5 - 14.5 % AO Workflow SS GFR/1.73 sq M.predicted among blacks MDRD (S/P/Bld) [Vol rate/Area] 74 ml/min/1.73sqm Invalid Interpretation Code AO Chemistry S Comment on above: Interpretive Data: GFR Population mean for , Non- Americans Ages 20-29 = 116 mL/min/1.73 sq.m. Ages 30-39 = 107 mL/min/1.73 sq.m. Ages 40-49 = 99 mL/min/1.73 sq.m. Ages 50-59 = 93 mL/min/1.73 sq.m. Ages 60-69 = 85 mL/min/1.73 sq.m. Ages 70+ = 75 mL/min/1.73 sq.m. Chronic Kidney Disease: Less than 60 mL/min/1.73 square meters End Stage Renal Disease: Less than 15 mL/min/1.73 square meters GFR/1.73 sq M.predicted among non-blacks MDRD (S/P/Bld) [Vol rate/Area] 61 ml/min/1.73sqm Invalid Interpretation Code AO Chemistry S Comment on above: Interpretive Data: GFR Population mean for , Non- Americans Ages 20-29 = 116 mL/min/1.73 sq.m. Ages 30-39 = 107 mL/min/1.73 sq.m. Ages 40-49 = 99 mL/min/1.73 sq.m. Ages 50-59 = 93 mL/min/1.73 sq.m. Ages 60-69 = 85 mL/min/1.73 sq.m. Ages 70+ = 75 mL/min/1.73 sq.m. Chronic Kidney Disease: Less than 60 mL/min/1.73 square meters End Stage Renal Disease: Less than 15 mL/min/1.73 square meters Glucose [Mass/Vol] 138 mg/dL High 80 - 115 mg/dL AO ADM SS Hematocrit (Bld) [Volume fraction] 44.5 % Normal 37.0 - 47.0 % AO Workflow SS Hemoglobin (Bld) [Mass/Vol] 15.4 G/dL Normal 12.0 - 16.0 G/dL AO Workflow SS Lymphocyte, Absolute 2.8 103/mcL Normal 0.8 - 3 .9 10^3/mcL AO Workflow SS Lymphocytes/100 WBC (Bld) 27.0 % Normal 10.0 - 50.0 % AO Workflow SS MCH (RBC) [Entitic mass] 31.3 pg High 27.0 - 31.2 pg AO Workflow SS MCHC 34.7 G/dL Normal 33.0 - 37.0 G/dL AO Workflow SS MCV (RBC) [Entitic vol] 90.2 fL Normal 80.0 - 94.0 fL AO Workflow SS Monocyte distribution width Auto (Bld) [Entitic vol] 18.23 1 Normal 0.00 - 20.00 AO Workflow SS Comment on above: Result Comment: For ED adult patients suspected of sepsis, MDW<=20.0 does not rule out sepsis or risk of sepsis Monocyte, Absolute 0.7 103/mcL Normal 0.2 - 1.0 10^3/mcL AO Workflow SS Monocytes/100 WBC (Bld) 6.4 % Normal 1.7 - 13.0 % AO Workflow SS Neutrophil, Absolute 6.7 103/mcL High 2.9 - 6 .2 10^3/mcL AO Workflow SS Neutrophils/100 WBC (Bld) 64.2 % Normal 37.0 - 80.0 % AO Workflow SS Platelet mean volume (Bld) [Entitic vol] 8.7 fL Normal 7.4 - 10.4 fL AO Workflow SS Platelets (Bld) [#/Vol] 222 103/mcL Normal 130 - 400 10^3/mcL AO Workflow SS Potassium [Moles/Vol] 3.9 mmol/L Normal 3.5 - 5.1 mmol/L AO ADM SS RBC (Bld) [#/Vol] 4.93 106/mcL Normal 4.20 - 5.40 10^6/mcL AO Workflow SS Sodium [Moles/Vol] 140 mmol/L Normal 136 - 145 mmol/L AO ADM SS Troponin I.cardiac DL <= 0.01 ng/mL [Mass/Vol] 4.0 ng/L Normal 0.0 - 51.4 ng/L AO ADM SS Urea nitrogen [Mass/Vol] 12 mg/dL Normal 7 - 18 mg/dL AO ADM SS Urea nitrogen/Creatinine [Mass ratio] 13 ratio Normal 7 - 27 ratio AO ADM SS WBC (Bld) [#/Vol] 10.5 103/mcL Normal 4.6 - 10.8 10^3/mcL AO Workflow SS PBNPon 08-23-2023 Natriuretic peptide B (Bld) [Mass/Vol] 14 pg/mL Normal 0-125 [facility] ([place]) Comment on above: Result Comment: NT-p roBNP results of less than 300 pg/mL effectively rules out acute congestive heart failure with 99% negative predictive value. Performed By: #### L AC, CBC, ADIFF, GFR, MORPH, CMP, ANEU, MG #### [place] [address] TROPHSon 08-23-2023 Troponin I High Sensitivity 4.0 ng/L Normal 0.0-51.4 [facility] ([place]) Comment on above: Performed By: #### L AC, CBC, ADIFF, GFR, MORPH, CMP, ANEU, MG #### [address] [address] Troponin I High Sensitivity 6.0 ng/L Normal 0.0-51.4 [facility] ([place]) Comment on above: Performed By: #### L AC, CBC, ADIFF, GFR, MORPH, CMP, ANEU, MG #### [address] [address] Troponin I High Sensitivity 4.0 ng/L Normal 0.0-51.4 [facility] ([place]) Comment on above: Performed By: #### L AC, CBC, ADIFF, GFR, MORPH, CMP, ANEU, MG #### [address] [address] XR CHEST 1 VIEWon 08-23-2023 XR CHEST 1 VIEW ORIGINAL EXAMINATION: ONE XRAY VIEW OF THE CHEST08/23/2023 6:44 pm COMPARISON: 02/28/2023 HISTORY: ORDERING SYSTEM PROVIDED HISTORY: Reason for Exam: COUGH chest pain FINDINGS: Examination is limited by body habitus and positioning (patient's chin obscures the lung apices). The cardiomediastinal silhouette is within normal limits. Left midlung scarring/atelectasis is stable. Otherwise, no focal pulmonary consolidation, pneumothorax, or large pleural effusion visualized. No acute osseous abnormality. IMPRESSION: No definite acute abnormality. I have reviewed the resident's preliminary report and agree with findings and impression. Interpreted by: Beto Ledesma Preliminary Report By: Malathi Bah Electronically signed By Beto Ledesma Dictated Date: 08/23/2023 6:47:57 PM Prelim Date: 08/23/2023 6:49:35 PM Sign Date: 08/23/2023 7:14:04 PM Ordering Provider: BRE Carrillo [facility] ([place]) XR Elbow - right AP and Late ral and obliqueon 08-06-2023 IMPRESSION: No acute fractures identified in the right elbow. Mild soft tissue swelling along the olecranon. Manager Target: ARIA Transcribe Date/Time: Aug 06 2023 10:19A Dictated by : PAULETTE PERKINS MD This examination was interpreted and the report reviewed and electronically signed by: PAULETTE PERKINS MD on Aug 06 2023 10:22AM [facility] DIVISION OF RADIOLOGY * * *Final Report* * * DATE OF EXAM: Aug 06 2023 10:17AM WOX [id number] - XR ELBOW 3V AP/LAT/OTHER RT / PROCEDURE REASON: Elbow swelling, right * * * * Physician Interpretation * * * * EXAM TITLE: XR ELBOW 3V AP/LAT/OTHER RT EXAM DATE/TIME: 08/06/2023 10:17 AM COMPARISON: None. CLINICAL INDICATION/HISTORY: Posterior elbow pain and swelling. TECHNIQUE: AP, lateral and radial head views of the right elbow are presented. FINDINGS: No acute fractures or subluxations are noted. The radiocapitellar and ulnotrochlear joint spaces are maintained. No fat pad sign to suggest joint effusion. The mineralization of the bones is normal. There is mild soft tissue swelling along the olecranon. DIVISION OF RADIOLOGY Provider, [facility] - 08/06/2023 * * *Final Report* * * DATE OF EXAM: Aug 06 2023 10:17AM WOX [id number] - XR ELBOW 3V AP/LAT/OTHER RT / PROCEDURE REASON: Elbow swelling, right * * * * Physician Interpretation * * * * EXAM TITLE: XR ELBOW 3V AP/LAT/OTHER RT EXAM DATE/TIME: 08/06/2023 10:17 AM COMPARISON: None. CLINICAL INDICATION/HISTORY: Posterior elbow pain and swelling. TECHNIQUE: AP, lateral and radial head views of the right elbow are presented. FINDINGS: No acute fractures or subluxations are noted. The radiocapitellar and ulnotrochlear joint spaces are maintained. No fat pad sign to suggest joint effusion. The mineralization of the bones is normal. There is mild soft tissue swelling along the olecranon. IMPRESSION IMPRESSION: No acute fractures identified in the right elbow. Mild soft tissue swelling along the olecranon. Manager Target: ARIA Transcribe Date/Time: Aug 06 2023 10:19A Dictated by : PAULETTE PERKINS MD This examination was interpreted and the report reviewed and electronically signed by: PAULETTE PERKINS MD on Aug 06 2023 10:22AM [facility] Radiology Study observation (narrative) [facility] XR Elbow - right AP and Late ral and obliqueOrdered By: Ccf Provider on 08-06-2023 [facility] XR Chest PA and Lateralon IMPRESSION: Mild right upper lobe airspace disease. Otherwise no acute process. Continued follow up in 2 weeks recommended Manager Target: ARIA Transcribe Date/Time: Apr 02 2023 2:00P Dictated by : SARAVANAN ALDANA MD This examination was interpreted and the report reviewed and electronically signed by: SARAVANAN ALDANA MD on Apr 02 2023 2:01PM [facility] DIVISION OF RADIOLOGY * * *Final Report* * * DATE OF EXAM: Apr 02 2023 9:59AM WOX 5291 - XR CHEST 2V FRONTAL/LAT / PROCEDURE REASON: Bacterial pneumonia * * * * Physician Interpretation * * * * EXAMINATION: CHEST RADIOGRAPH (2 VIEW FRONTAL & LATERAL) CLINICAL HISTORY: Bacterial pneumonia MQ: XC2_6 EXAM DATE/TIME: 04/02/2023 9:59 AM COMPARISON: 09/02/2022 RESULT: Lines, tubes, and devices: None. Lungs and pleura: No consolidation. No lung mass. No pleural effusion. No pneumothorax. Mild right upper lobe airspace disease Cardiomediastinal silhouette: Normal cardiomediastinal silhouette. Bones and soft tissues: Unremarkable. DIVISION OF RADIOLOGY Provider, [facility] - 04/02/2023 * * *Final Report* * * DATE OF EXAM: Apr 02 2023 9:59AM WOX 5291 - XR CHEST 2V FRONTAL/LAT / PROCEDURE REASON: Bacterial pneumonia * * * * Physician Interpretation * * * * EXAMINATION: CHEST RADIOGRAPH (2 VIEW FRONTAL & LATERAL) CLINICAL HISTORY: Bacterial pneumonia MQ: XC2_6 EXAM DATE/TIME: 04/02/2023 9:59 AM COMPARISON: 09/02/2022 RESULT: Lines, tubes, and devices: None. Lungs and pleura: No consolidation. No lung mass. No pleural effusion. No pneumothorax. Mild right upper lobe airspace disease Cardiomediastinal silhouette: Normal cardiomediastinal silhouette. Bones and soft tissues: Unremarkable. IMPRESSION IMPRESSION: Mild right upper lobe airspace disease. Otherwise no acute process. Continued follow up in 2 weeks recommended Manager Target: ARIA Transcribe Date/Time: Apr 02 2023 2:00P Dictated by : SARAVANAN ALDANA MD This examination was interpreted and the report reviewed and electronically signed by: SARAVANAN ALDANA MD on Apr 02 2023 2:01PM EST [facility] Radiology Study observation (narrative) [facility] XR Chest PA and LateralOrder ed By: Ccf Provider on 04-02-2023 [facility] MYCOon 03-03-2023 Mycoplasma IgG Positive Normal [facility] ([place]) Comment on above: Result Comment: INTE RPRETATION OF MYCOPLASMA IgG BY EIA: Negative: No detectable M. pneumoniae IgG antibody. Positive: Mycoplasma pneumoniae IgG antibody Detected. Equivocal: Equivocal for IgG antibodies to Mycoplasma pneumoniae. Suggest repeat testing in 10-14 days. Performed By: #### L AC, CBC, ADIFF, GFR, MORPH, CMP, ANEU, MG #### [address] [address] .Auto Diffon 03-02-2023 Basophil, Absolute 0.1 10 3/mcL Normal 0.0-0.3 [facility] ([place]) Comment on above: Performed By: #### L AC, CBC, ADIFF, GFR, MORPH, CMP, ANEU, MG #### [address] [address] Basophils/100 WBC (Bld) 0.7 % Normal 0.0-2.5 [facility] ([place] Comment on above: Performed By: #### L AC, CBC, ADIFF, GFR, MORPH, CMP, ANEU, MG #### [address] [address] Eosinophil, Absolute 0.2 10 3/mcL Normal 0.0-0.7 [facility] ([place]) Comment on above: Performed By: #### L AC, CBC, ADIFF, GFR, MORPH, CMP, ANEU, MG #### [address] [address] Eosinophils/100 WBC (Bld) 1.7 % Normal 0.0-6.0 [facility] ([place]) Comment on above: Performed By: #### L AC, CBC, ADIFF, GFR, MORPH, CMP, ANEU, MG #### [address] [address] Lymphocyte, Absolute 1.4 10 3/mcL Normal 0.9-4.3 [facility] ([place]) Comment on above: Performed By: #### L AC, CBC, ADIFF, GFR, MORPH, CMP, ANEU, MG #### [address] [address] Lymphocytes/100 WBC (Bld) 15.0 % Low 20.0-40.0 [facility] ([place]) Comment on above: Performed By: #### L AC, CBC, ADIFF, GFR, MORPH, CMP, ANEU, MG #### [address] [address] Monocyte, Absolute 0.6 10 3/mcL Normal 0.1-1.4 [facility] ([place]) Comment on above: Performed By: #### L AC, CBC, ADIFF, GFR, MORPH, CMP, ANEU, MG #### [address] [address] Monocytes/100 WBC (Bld) 6.2 % Normal 2.0-13.0 [facility] ([place]) Comment on above: Performed By: #### L AC, CBC, ADIFF, GFR, MORPH, CMP, ANEU, MG #### [address] [address] Neutrophils/100 WBC (Bld) 76.4 % High 50.0-75.0 [facility] ([place]) Comment on above: Performed By: #### L AC, CBC, ADIFF, GFR, MORPH, CMP, ANEU, MG #### [address] [address] .GFRon 03-02-2023 GFR >60 Normal [facility] ([place]) Comment on above: Result Comment: GFR Population mean for , Non- Americans Ages 20-29 = 116 mL/min/1.73 sq.m. Ages 30-39 = 107 mL/min/1.73 sq.m. Ages 40-49 = 99 mL/min/1.73 sq.m. Ages 50-59 = 93 mL/min/1.73 sq.m. Ages 60-69 = 85 mL/min/1.73 sq.m. Ages 70+ = 75 mL/min/1.73 sq.m. Chronic Kidney Disease: Less than 60 mL/min/1.73 square meters End Stage Renal Disease: Less than 15 mL/min/1.73 square meters Performed By: #### L AC, CBC, ADIFF, GFR, MORPH, CMP, ANEU, MG #### [address] [address] GFR Non- >60 Normal [facility] ([place]) Comment on above: Result Comment: GFR Population mean for , Non- Americans Ages 20-29 = 116 mL/min/1.73 sq.m. Ages 30-39 = 107 mL/min/1.73 sq.m. Ages 40-49 = 99 mL/min/1.73 sq.m. Ages 50-59 = 93 mL/min/1.73 sq.m. Ages 60-69 = 85 mL/min/1.73 sq.m. Ages 70+ = 75 mL/min/1.73 sq.m. Chronic Kidney Disease: Less than 60 mL/min/1.73 square meters End Stage Renal Disease: Less than 15 mL/min/1.73 square meters Performed By: #### L AC, CBC, ADIFF, GFR, MORPH, CMP, ANEU, MG #### [address] [address] .NEUABSon 03-02-2023 Neutrophil, Absolute 7.0 10 3/mcL Normal 2.3-8.1 [facility] ([place]) Comment on above: Performed By: #### L AC, CBC, ADIFF, GFR, MORPH, CMP, ANEU, MG #### [address] [address] BMPon 03-02-2023 BUN/Creatinine Ratio 13.6 ratio Normal 10.0-22.0 [facility] ([place]) Comment on above: Performed By: #### L AC, CBC, ADIFF, GFR, MORPH, CMP, ANEU, MG #### [address] [address] Calcium [Mass/Vol] 8.9 mg/dL Normal 8.7-10.4 [facility] ([place]) Comment on above: Performed By: #### L AC, CBC, ADIFF, GFR, MORPH, CMP, ANEU, MG #### [address] [address] Chloride [Moles/Vol] 105 mmol/L Normal 98-110 [facility] ([place]) Comment on above: Performed By: #### L AC, CBC, ADIFF, GFR, MORPH, CMP, ANEU, MG #### [address] [address] CO2 [Moles/Vol] 28 mmol/L Normal 22-32 [facility] ([place]) Comment on above: Performed By: #### L AC, CBC, ADIFF, GFR, MORPH, CMP, ANEU, MG #### [address] [address] Creatinine [Mass/Vol] 0.66 mg/dL Normal 0.50-1.20 [facility] ([place]) Comment on above: Performed By: #### L AC, CBC, ADIFF, GFR, MORPH, CMP, ANEU, MG #### [address] [address] Electrolyte Balance 3.0 mEq/L Low 4.0-15.0 [facility] ([place]) Comment on above: Performed By: #### L AC, CBC, ADIFF, GFR, MORPH, CMP, ANEU, MG #### [address] [address] Glucose [Mass/Vol] 115 mg/dL Normal 82-115 [facility] ([place]) Comment on above: Performed By: #### L AC, CBC, ADIFF, GFR, MORPH, CMP, ANEU, MG #### [address] [address] Potassium [Moles/Vol] 4.0 mmol/L Normal 3.5-5.0 [facility] ([place]) Comment on above: Performed By: #### L AC, CBC, ADIFF, GFR, MORPH, CMP, ANEU, MG #### [address] [address] Sodium [Moles/Vol] 136 mmol/L Normal 136-145 [facility] ([place]) Comment on above: Performed By: #### L AC, CBC, ADIFF, GFR, MORPH, CMP, ANEU, MG #### [place] [address] Urea nitrogen [Mass/Vol] 9.0 mg/dL Normal 8.0-22.0 [facility] ([place]) Comment on above: Performed By: #### L AC, CBC, ADIFF, GFR, MORPH, CMP, ANEU, MG #### [place] [address] CBCon 03-02-2023 Erythrocyte distribution width (RBC) [Ratio] 14.6 % Normal 11.5-15.5 [facility] ([place]) Comment on above: Performed By: #### L AC, CBC, ADIFF, GFR, MORPH, CMP, ANEU, MG #### [place] [address] Hematocrit (Bld) [Volume fraction] 37.4 % Normal 34.0-46.0 [facility] ([place]) Comment on above: Performed By: #### L AC, CBC, ADIFF, GFR, MORPH, CMP, ANEU, MG #### [place] [address] Hgb 12.8 G/dL Normal 12.0-16.0 [facility] ([place]) Comment on above: Performed By: #### L AC, CBC, ADIFF, GFR, MORPH, CMP, ANEU, MG #### [place] [address] MCH (RBC) [Entitic mass] 31.4 pg Normal 27.0-33.0 [facility] ([place]) Comment on above: Performed By: #### L AC, CBC, ADIFF, GFR, MORPH, CMP, ANEU, MG #### [place] [address] MCHC 34.3 G/dL Normal 32.0-36.0 [facility] ([place]) Comment on above: Performed By: #### L AC, CBC, ADIFF, GFR, MORPH, CMP, ANEU, MG #### [place] [address] MCV (RBC) [Entitic vol] 91.5 fL Normal 80.0-99.0 [facility] ([place]) Comment on above: Performed By: #### L AC, CBC, ADIFF, GFR, MORPH, CMP, ANEU, MG #### [place] [address] Platelet 171 10 3/mcL Normal 150-450 [facility] ([place] Comment on above: Performed By: #### L AC, CBC, ADIFF, GFR, MORPH, CMP, ANEU, MG #### [place] [address] Platelet mean volume (Bld) [Entitic vol] 9.1 fL Normal 6.6-10.5 [facility] ([place]) Comment on above: Performed By: #### L AC, CBC, ADIFF, GFR, MORPH, CMP, ANEU, MG #### [place] [address] RBC 4.09 10 6/mcL Low 4.10-5.30 [facility] ([place]) Comment on above: Performed By: #### L AC, CBC, ADIFF, GFR, MORPH, CMP, ANEU, MG #### [place] [address] WBC 9.2 10 3/mcL Normal 4.5-10.8 [facility] ([place]) Comment on above: Performed By: #### L AC, CBC, ADIFF, GFR, MORPH, CMP, ANEU, MG #### [place] [address] LABORATORYOrdered By: SYSTEM SYSTEM on 03-02-2023 Basophils (Bld) [#/Vol] 0.1 103/mcL Invalid Interpretation Code 0.0 - 0.3 10^3/mcL AH Workflow SS Basophils/100 WBC (Bld) 0.7 % Invalid Interpretation Code 0.0 - 2.5 % AH Workflow SS Calcium [Mass/Vol] 8.9 mg/dL Invalid Interpretation Code 8.7 - 10.4 mg/dL AH ADM SS Chloride [Moles/Vol] 105 mmol/L Invalid Interpretation Code 98 - 110 mEq/L AH ADM SS CO2 [Moles/Vol] 28 mmol/L Invalid Interpretation Code 22 - 32 mEq/L AH ADM SS Creatinine [Mass/Vol] 0.66 mg/dL Invalid Interpretation Code 0.50 - 1.20 mg/dL AH ADM SS Electrolyte Balance 3.0 mEq/L Invalid Interpretation Code 4.0 - 15.0 mEq/L AH ADM SS Eosinophils (Bld) [#/Vol] 0.2 103/mcL Invalid Interpretation Code 0.0 - 0.7 10^3/mcL Workflow SS Eosinophils/100 WBC (Bld) 1.7 % Invalid Interpretation Code 0.0 - 6.0 % AH Workflow SS Erythrocyte distribution width (RBC) [Ratio] 14.6 % Invalid Interpretation Code 11.5 - 15.5 % Workflow SS GFR/1.73 sq M.predicted among blacks MDRD (S/P/Bld) [Vol rate/Area] ml/min/1.73sqm Invalid Interpretation Code AH ADM SS Comment on above: Interpretive Data: GFR Population mean for , Non- Americans Ages 20-29 = 116 mL/min/1.73 sq.m. Ages 30-39 = 107 mL/min/1.73 sq.m. Ages 40-49 = 99 mL/min/1.73 sq.m. Ages 50-59 = 93 mL/min/1.73 sq.m. Ages 60-69 = 85 mL/min/1.73 sq.m. Ages 70+ = 75 mL/min/1.73 sq.m. Chronic Kidney Disease: Less than 60 mL/min/1.73 square meters End Stage Renal Disease: Less than 15 mL/min/1.73 square meters GFR/1.73 sq M.predicted among non-blacks MDRD (S/P/Bld) [Vol rate/Area] ml/min/1.73sqm Invalid Interpretation Code AH ADM SS Comment on above: Interpretive Data: GFR Population mean for , Non- Americans Ages 20-29 = 116 mL/min/1.73 sq.m. Ages 30-39 = 107 mL/min/1.73 sq.m. Ages 40-49 = 99 mL/min/1.73 sq.m. Ages 50-59 = 93 mL/min/1.73 sq.m. Ages 60-69 = 85 mL/min/1.73 sq.m. Ages 70+ = 75 mL/min/1.73 sq.m. Chronic Kidney Disease: Less than 60 mL/min/1.73 square meters End Stage Renal Disease: Less than 15 mL/min/1.73 square meters Glucose [Mass/Vol] 115 mg/dL Invalid Interpretation Code 82 - 115 mg/dL ADM SS Hematocrit (Bld) [Volume fraction] 37.4 % Invalid Interpretation Code 34.0 - 46.0 % AH Workflow SS Hemoglobin (Bld) [Mass/Vol] 12.8 G/dL Invalid Interpretation Code 12.0 - 16.0 G/dL AH Workflow SS Lymphocytes (Bld) [#/Vol] 1.4 103/mcL Invalid Interpretation Code 0.9 - 4.3 10^3/mcL Workflow SS Lymphocytes/100 WBC (Bld) 15.0 % Invalid Interpretation Code 20.0 - 40.0 % Workflow SS Magnesium [Mass/Vol] 1.8 mg/dL Invalid Interpretation Code 1.6 - 2.4 mg/dL ADM SS MCH (RBC) [Entitic mass] 31.4 pg Invalid Interpretation Code 27.0 - 33.0 pg AH Workflow SS MCHC 34.3 G/dL Invalid Interpretation Code 32.0 - 36.0 G/dL Workflow SS MCV (RBC) [Entitic vol] 91.5 fL Invalid Interpretation Code 80.0 - 99.0 fL AH Workflow SS Monocytes (Bld) [#/Vol] 0.6 103/mcL Invalid Interpretation Code 0.1 - 1.4 10^3/mcL Workflow SS Monocytes/100 WBC (Bld) 6.2 % Invalid Interpretation Code 2.0 - 13.0 % AH Workflow SS Neutrophils (Bld) [#/Vol] 7.0 103/mcL Invalid Interpretation Code 2.3 - 8.1 10^3/mcL Workflow SS Neutrophils/100 WBC (Bld) 76.4 % Invalid Interpretation Code 50.0 - 75.0 % Workflow SS Platelet mean volume (Bld) [Entitic vol] 9.1 fL Invalid Interpretation Code 6.6 - 10.5 fL AH Workflow SS Platelets (Bld) [#/Vol] 171 103/mcL Invalid Interpretation Code 150 - 450 10^3/mcL Workflow SS Potassium [Moles/Vol] 4.0 mmol/L Invalid Interpretation Code 3.5 - 5.0 mEq/L AH ADM SS RBC (Bld) [#/Vol] 4.09 106/mcL Invalid Interpretation Code 4.10 - 5.30 10^6/mcL AH Workflow SS Sodium [Moles/Vol] 136 mmol/L Invalid Interpretation Code 136 - 145 mEq/L AH ADM SS Urea nitrogen [Mass/Vol] 9.0 mg/dL Invalid Interpretation Code 8.0 - 22.0 mg/dL AH ADM SS Urea nitrogen/Creatinine [Mass ratio] 13.6 ratio Invalid Interpretation Code 10.0 - 22.0 ratio AH ADM SS WBC (Bld) [#/Vol] 9.2 103/mcL Invalid Interpretation Code 4.5 - 10.8 10^3/mcL AH Workflow SS MGon 03-02-2023 Magnesium [Mass/Vol] 1.8 mg/dL Normal 1.6-2.4 [facility] ([place]) Comment on above: Performed By: #### L AC, CBC, ADIFF, GFR, MORPH, CMP, ANEU, MG #### [address] [address] MYCOon 03-02-2023 Mycoplasma IgM Negative Normal [facility] ([place]) Comment on above: Result Comment: INTE RPRETATION OF MYCOPLASMA IgM: Negative: IgM to M. pneumoniae Absent, or at levels below the assay limit of detection. Positive: IgM to M. pneumoniae Present. Invalid: Test results are invalid due to invalid internal control. Assay was performed in duplicate. Repeat testing is suggested if clinically indicated. Performed By: #### L AC, CBC, ADIFF, GFR, MORPH, CMP, ANEU, MG #### [address] [address] .Auto Diffon 03-01-2023 Basophil, Absolute 0.1 10 3/mcL Normal 0.0-0.3 [facility] ([place]) Comment on above: Performed By: #### L AC, CBC, ADIFF, GFR, MORPH, CMP, ANEU, MG #### [address] [address] Basophils/100 WBC (Bld) 0.4 % Normal 0.0-2.5 [facility] ([place]) Comment on above: Performed By: #### L AC, CBC, ADIFF, GFR, MORPH, CMP, ANEU, MG #### [address] [address] Eosinophil, Absolute 0.2 10 3/mcL Normal 0.0-0.7 [facility] ([place]) Comment on above: Performed By: #### L AC, CBC, ADIFF, GFR, MORPH, CMP, ANEU, MG #### [address] [address] Eosinophils/100 WBC (Bld) 1.5 % Normal 0.0-6.0 [facility] ([place]) Comment on above: Performed By: #### L AC, CBC, ADIFF, GFR, MORPH, CMP, ANEU, MG #### [address] [address] Lymphocyte, Absolute 1.2 10 3/mcL Normal 0.9-4.3 [facility] ([place]) Comment on above: Performed By: #### L AC, CBC, ADIFF, GFR, MORPH, CMP, ANEU, MG #### [address] [address] Lymphocytes/100 WBC (Bld) 8.7 % Low 20.0-40.0 [facility] ([place]) Comment on above: Performed By: #### L AC, CBC, ADIFF, GFR, MORPH, CMP, ANEU, MG #### [address] [address] Monocyte, Absolute 0.8 10 3/mcL Normal 0.1-1.4 [facility] ([place]) Comment on above: Performed By: #### L AC, CBC, ADIFF, GFR, MORPH, CMP, ANEU, MG #### [address] [address] Monocytes/100 WBC (Bld) 5.6 % Normal 2.0-13.0 [facility] ([place]) Comment on above: Performed By: #### L AC, CBC, ADIFF, GFR, MORPH, CMP, ANEU, MG #### [address] [address] Neutrophils/100 WBC (Bld) 83.8 % High 50.0-75.0 [facility] ([place]) Comment on above: Performed By: #### L AC, CBC, ADIFF, GFR, MORPH, CMP, ANEU, MG #### [address] [address] .GFRon 03-01-2023 GFR >60 Normal [facility] ([place]) Comment on above: Result Comment: GFR Population mean for , Non- Americans Ages 20-29 = 116 mL/min/1.73 sq.m. Ages 30-39 = 107 mL/min/1.73 sq.m. Ages 40-49 = 99 mL/min/1.73 sq.m. Ages 50-59 = 93 mL/min/1.73 sq.m. Ages 60-69 = 85 mL/min/1.73 sq.m. Ages 70+ = 75 mL/min/1.73 sq.m. Chronic Kidney Disease: Less than 60 mL/min/1.73 square meters End Stage Renal Disease: Less than 15 mL/min/1.73 square meters Performed By: #### L AC, CBC, ADIFF, GFR, MORPH, CMP, ANEU, MG #### [address] [address] GFR Non- 54 ml/min/1.73sqm Normal [facility] ([place] Comment on above: Result Comment: GFR Population mean for , Non- Americans Ages 20-29 = 116 mL/min/1.73 sq.m. Ages 30-39 = 107 mL/min/1.73 sq.m. Ages 40-49 = 99 mL/min/1.73 sq.m. Ages 50-59 = 93 mL/min/1.73 sq.m. Ages 60-69 = 85 mL/min/1.73 sq.m. Ages 70+ = 75 mL/min/1.73 sq.m. Chronic Kidney Disease: Less than 60 mL/min/1.73 square meters End Stage Renal Disease: Less than 15 mL/min/1.73 square meters Performed By: #### L AC, CBC, ADIFF, GFR, MORPH, CMP, ANEU, MG #### [address] [address] .Manual Diffon 03-01-2023 Bands 1.0 % Normal 0.0-5.0 [facility] ([place]) Comment on above: Performed By: #### L AC, CBC, ADIFF, GFR, MORPH, CMP, ANEU, MG #### [address] [address] Basophil %, Manual 2.0 % Normal 0.0-2.5 [facility] ([place]) Comment on above: Performed By: #### L AC, CBC, ADIFF, GFR, MORPH, CMP, ANEU, MG #### [address] [address] Basophil, Abs Manual 0.5 10 3/mcL High 0.0-0.3 [facility] ([place]) Comment on above: Performed By: #### L AC, CBC, ADIFF, GFR, MORPH, CMP, ANEU, MG #### [address] [address] Eosinophil %, Manual 4.0 % Normal 0.0-6.0 [facility] ([place]) Comment on above: Performed By: #### L AC, CBC, ADIFF, GFR, MORPH, CMP, ANEU, MG #### [address] [address] Eosinophil, Abs Manual 1.0 10 3/mcL High 0.0-0.7 [facility] ([place]) Comment on above: Performed By: #### L AC, CBC, ADIFF, GFR, MORPH, CMP, ANEU, MG #### [address] [address] Lymphocyte %, Manual 9.0 % Low 20.0-40.0 [facility] ([place]) Comment on above: Performed By: #### L AC, CBC, ADIFF, GFR, MORPH, CMP, ANEU, MG #### [address] [address] Lymphocyte, Abs Manual 2.1 10 3/mcL Normal 0.9-4.3 [facility] ([place]) Comment on above: Performed By: #### L AC, CBC, ADIFF, GFR, MORPH, CMP, ANEU, MG #### [address] [address] Monocyte %, Manual 5.0 % Normal 2.0-13.0 [facility] ([place]) Comment on above: Performed By: #### L AC, CBC, ADIFF, GFR, MORPH, CMP, ANEU, MG #### [place] [id number] Monocyte, Abs Manual 1.2 10 3/mcL Normal 0.1-1.4 [facility] ([place]) Comment on above: Performed By: #### L AC, CBC, ADIFF, GFR, MORPH, CMP, ANEU, MG #### [place] [address] Neutrophil %, Manual 79.0 % High 50.0-75.0 [facility] ([place]) Comment on above: Performed By: #### L AC, CBC, ADIFF, GFR, MORPH, CMP, ANEU, MG #### [place] [address] Neutrophil, Abs Manual 18.8 10 3/mcL High 2.3-8.1 [facility] ([place] Comment on above: Performed By: #### L AC, CBC, ADIFF, GFR, MORPH, CMP, ANEU, MG #### [place] [address] Nucleated RBC 0.0 /100 WBC Normal [facility] ([place]) Comment on above: Performed By: #### L AC, CBC, ADIFF, GFR, MORPH, CMP, ANEU, MG #### [place] [address] .Morphon 03-01-2023 Platelet Estimate Normal Normal [facility] ([place]) Comment on above: Performed By: #### L AC, CBC, ADIFF, GFR, MORPH, CMP, ANEU, MG #### [place] [address] RBC morphology finding Nom (Bld) See Below Normal [facility] ([place]) Comment on above: Result Comment: RBC Morphology appears Normal See Below RBC Morphology appears Normal See Below RBC Morphology appears Normal Performed By: #### L AC, CBC, ADIFF, GFR, MORPH, CMP, ANEU, MG #### [address] [address] .NEUABSon 03-01-2023 Neutrophil, Absolute 11.8 10 3/mcL High 2.3-8.1 [facility] ([place]) Comment on above: Performed By: #### L AC, CBC, ADIFF, GFR, MORPH, CMP, ANEU, MG #### [address] [address] BMPon 03-01-2023 BUN/Creatinine Ratio 19.4 ratio Normal 10.0-22.0 [facility] ([place]) Comment on above: Performed By: #### L AC, CBC, ADIFF, GFR, MORPH, CMP, ANEU, MG #### [place] [address] Calcium [Mass/Vol] 8.5 mg/dL Low 8.7-10.4 [facility] ([place]) Comment on above: Performed By: #### L AC, CBC, ADIFF, GFR, MORPH, CMP, ANEU, MG #### [place] [id number] Chloride [Moles/Vol] 103 mmol/L Normal 98-110 [facility] ([place]) Comment on above: Performed By: #### L AC, CBC, ADIFF, GFR, MORPH, CMP, ANEU, MG #### [address] [address] CO2 [Moles/Vol] 28 mmol/L Normal 22-32 [facility] ([place]) Comment on above: Performed By: #### L AC, CBC, ADIFF, GFR, MORPH, CMP, ANEU, MG #### [address] [address] Creatinine [Mass/Vol] 1.03 mg/dL Normal 0.50-1.20 [facility] ([place]) Comment on above: Performed By: #### L AC, CBC, ADIFF, GFR, MORPH, CMP, ANEU, MG #### [address] [address] Electrolyte Balance 4.0 mEq/L Normal 4.0-15.0 [facility] ([place]) Comment on above: Performed By: #### L AC, CBC, ADIFF, GFR, MORPH, CMP, ANEU, MG #### [place] [phone] Glucose [Mass/Vol] 110 mg/dL Normal 82-115 [facility] ([place]) Comment on above: Performed By: #### L AC, CBC, ADIFF, GFR, MORPH, CMP, ANEU, MG #### [place] [phone] Potassium [Moles/Vol] 4.0 mmol/L Normal 3.5-5.0 [facility] ([place]) Comment on above: Performed By: #### L AC, CBC, ADIFF, GFR, MORPH, CMP, ANEU, MG #### [place] [address] Sodium [Moles/Vol] 135 mmol/L Low 136-145 [facility] ([place]) Comment on above: Performed By: #### L AC, CBC, ADIFF, GFR, MORPH, CMP, ANEU, MG #### [place] [phone] Urea nitrogen [Mass/Vol] 20.0 mg/dL Normal 8.0-22.0 [facility] ([place]) Comment on above: Performed By: #### L AC, CBC, ADIFF, GFR, MORPH, CMP, ANEU, MG #### [place] [phone] CBCon 03-01-2023 Erythrocyte distribution width (RBC) [Ratio] 14.9 % Normal 11.5-15.5 [facility] ([place]) Comment on above: Performed By: #### L AC, CBC, ADIFF, GFR, MORPH, CMP, ANEU, MG #### [place] [phone] Hematocrit (Bld) [Volume fraction] 36.5 % Normal 34.0-46.0 [facility] ([place]) Comment on above: Performed By: #### L AC, CBC, ADIFF, GFR, MORPH, CMP, ANEU, MG #### [place] [phone] Hgb 12.5 G/dL Normal 12.0-16.0 [facility] ([place]) Comment on above: Performed By: #### L AC, CBC, ADIFF, GFR, MORPH, CMP, ANEU, MG #### [place] [address] MCH (RBC) [Entitic mass] 31.7 pg Normal 27.0-33.0 [facility] ([place]) Comment on above: Performed By: #### L AC, CBC, ADIFF, GFR, MORPH, CMP, ANEU, MG #### [place] [address] MCHC 34.3 G/dL Normal 32.0-36.0 [facility] ([place]) Comment on above: Performed By: #### L AC, CBC, ADIFF, GFR, MORPH, CMP, ANEU, MG #### [place] [address] MCV (RBC) [Entitic vol] 92.4 fL Normal 80.0-99.0 [facility] ([place]) Comment on above: Performed By: #### L AC, CBC, ADIFF, GFR, MORPH, CMP, ANEU, MG #### [place] [address] Platelet 156 10 3/mcL Normal 150-450 [facility] ([place]) Comment on above: Performed By: #### L AC, CBC, ADIFF, GFR, MORPH, CMP, ANEU, MG #### [place] [address] Platelet mean volume (Bld) [Entitic vol] 9.3 fL Normal 6.6-10.5 [facility] ([place]) Comment on above: Performed By: #### L AC, CBC, ADIFF, GFR, MORPH, CMP, ANEU, MG #### [place] [address] RBC 3.95 10 6/mcL Low 4.10-5.30 [facility] ([place]) Comment on above: Performed By: #### L AC, CBC, ADIFF, GFR, MORPH, CMP, ANEU, MG #### [address] [place] [address] WBC 14.1 10 3/mcL High 4.5-10.8 [facility] ([place]) Comment on above: Performed By: #### L AC, CBC, ADIFF, GFR, MORPH, CMP, ANEU, MG #### [facility] [address] [place] [address] Platelet 176 10 3/mcL Normal 150-450 [facility] ([place]) Comment on above: Performed By: #### L AC, CBC, ADIFF, GFR, MORPH, CMP, ANEU, MG #### [place] [id number] [place] [address] Platelet mean volume (Bld) [Entitic vol] 9.7 fL Normal 6.6-10.5 [facility] ([place]) Comment on above: Performed By: #### L AC, CBC, ADIFF, GFR, MORPH, CMP, ANEU, MG #### [address] [address] LABORATORYOrdered By: Eda Noland on 03-01-2023 Lactate [Moles/Vol] 1.2 mmol/L Invalid Interpretation Code 0.2 - 2.0 mmol/L AH Auto Chem SS LABORATORYOrdered By: Dmitry Leone on 03-01-2023 Blood Glucose Testing Reason Routine (03/01/23 3:30 AM) [facility] Work Phone: Glucose [Mass/Vol] 115 mg/dL Invalid Interpretation Code 82 - 115 mg/dL [facility] Work Phone: Blood Glucose Testing Reason Routine (03/01/23 12:00 AM) [facility] Work Phone: Glucose [Mass/Vol] 112 mg/dL Invalid Interpretation Code 82 - 115 mg/dL [facility] Work Phone: LABORATORYOrdered By: SYSTEM SYSTEM on 03-01-2023 Basophils (Bld) [#/Vol] 0.1 103/mcL Invalid Interpretation Code 0.0 - 0.3 10^3/mcL AH Workflow SS Basophils/100 WBC (Bld) 0.4 % Invalid Interpretation Code 0.0 - 2.5 % AH Workflow SS Calcium [Mass/Vol] 8.5 mg/dL Invalid Interpretation Code 8.7 - 10.4 mg/dL ADM SS Chloride [Moles/Vol] 103 mmol/L Invalid Interpretation Code 98 - 110 mEq/L ADM SS CO2 [Moles/Vol] 28 mmol/L Invalid Interpretation Code 22 - 32 mEq/L AH ADM SS Creatinine [Mass/Vol] 1.03 mg/dL Invalid Interpretation Code 0.50 - 1.20 mg/dL AH ADM SS Electrolyte Balance 4.0 mEq/L Invalid Interpretation Code 4.0 - 15.0 mEq/L ADM SS Eosinophils (Bld) [#/Vol] 0.2 103/mcL Invalid Interpretation Code 0.0 - 0.7 10^3/mcL Workflow SS Eosinophils/100 WBC (Bld) 1.5 % Invalid Interpretation Code 0.0 - 6.0 % Workflow SS Erythrocyte distribution width (RBC) [Ratio] 14.9 % Invalid Interpretation Code 11.5 - 15.5 % Workflow SS GFR/1.73 sq M.predicted among blacks MDRD (S/P/Bld) [Vol rate/Area] ml/min/1.73sqm Invalid Interpretation Code ADM SS Comment on above: Interpretive Data: GFR Population mean for , Non- Americans Ages 20-29 = 116 mL/min/1.73 sq.m. Ages 30-39 = 107 mL/min/1.73 sq.m. Ages 40-49 = 99 mL/min/1.73 sq.m. Ages 50-59 = 93 mL/min/1.73 sq.m. Ages 60-69 = 85 mL/min/1.73 sq.m. Ages 70+ = 75 mL/min/1.73 sq.m. Chronic Kidney Disease: Less than 60 mL/min/1.73 square meters End Stage Renal Disease: Less than 15 mL/min/1.73 square meters GFR/1.73 sq M.predicted among non-blacks MDRD (S/P/Bld) [Vol rate/Area] 54 ml/min/1.73sqm Invalid Interpretation Code AH ADM SS Comment on above: Interpretive Data: GFR Population mean for , Non- Americans Ages 20-29 = 116 mL/min/1.73 sq.m. Ages 30-39 = 107 mL/min/1.73 sq.m. Ages 40-49 = 99 mL/min/1.73 sq.m. Ages 50-59 = 93 mL/min/1.73 sq.m. Ages 60-69 = 85 mL/min/1.73 sq.m. Ages 70+ = 75 mL/min/1.73 sq.m. Chronic Kidney Disease: Less than 60 mL/min/1.73 square meters End Stage Renal Disease: Less than 15 mL/min/1.73 square meters Glucose [Mass/Vol] 110 mg/dL Invalid Interpretation Code 82 - 115 mg/dL AH ADM SS Hematocrit (Bld) [Volume fraction] 36.5 % Invalid Interpretation Code 34.0 - 46.0 % AH Workflow SS Hemoglobin (Bld) [Mass/Vol] 12.5 G/dL Invalid Interpretation Code 12.0 - 16.0 G/dL AH Workflow SS Lymphocytes (Bld) [#/Vol] 1.2 103/mcL Invalid Interpretation Code 0.9 - 4.3 10^3/mcL AH Workflow SS Lymphocytes/100 WBC (Bld) 8.7 % Invalid Interpretation Code 20.0 - 40.0 % AH Workflow SS Magnesium [Mass/Vol] 2.3 mg/dL Invalid Interpretation Code 1.6 - 2.4 mg/dL ADM SS MCH (RBC) [Entitic mass] 31.7 pg Invalid Interpretation Code 27.0 - 33.0 pg AH Workflow SS MCHC 34.3 G/dL Invalid Interpretation Code 32.0 - 36.0 G/dL AH Workflow SS MCV (RBC) [Entitic vol] 92.4 fL Invalid Interpretation Code 80.0 - 99.0 fL AH Workflow SS Monocytes (Bld) [#/Vol] 0.8 103/mcL Invalid Interpretation Code 0.1 - 1.4 10^3/mcL AH Workflow SS Monocytes/100 WBC (Bld) 5.6 % Invalid Interpretation Code 2.0 - 13.0 % AH Workflow SS Neutrophils (Bld) [#/Vol] 11.8 103/mcL Invalid Interpretation Code 2.3 - 8.1 10^3/mcL AH Workflow SS Neutrophils/100 WBC (Bld) 83.8 % Invalid Interpretation Code 50.0 - 75.0 % AH Workflow SS Platelet mean volume (Bld) [Entitic vol] 9.3 fL Invalid Interpretation Code 6.6 - 10.5 fL AH Workflow SS Platelets (Bld) [#/Vol] 156 103/mcL Invalid Interpretation Code 150 - 450 10^3/mcL Workflow SS Potassium [Moles/Vol] 4.0 mmol/L Invalid Interpretation Code 3.5 - 5.0 mEq/L ADM SS RBC (Bld) [#/Vol] 3.95 106/mcL Invalid Interpretation Code 4.10 - 5.30 10^6/mcL Workflow SS Sodium [Moles/Vol] 135 mmol/L Invalid Interpretation Code 136 - 145 mEq/L ADM SS Urea nitrogen [Mass/Vol] 20.0 mg/dL Invalid Interpretation Code 8.0 - 22.0 mg/dL ADM SS Urea nitrogen/Creatinine [Mass ratio] 19.4 ratio Invalid Interpretation Code 10.0 - 22.0 ratio ADM SS WBC (Bld) [#/Vol] 14.1 103/mcL Invalid Interpretation Code 4.5 - 10.8 10^3/mcL Workflow SS LABORATORYOrdered By: Cecilia Meade on 03-01-2023 Lactate [Moles/Vol] 1.1 mmol/L Invalid Interpretation Code 0.2 - 2.0 mmol/L Auto Chem SS Comment on above: Result Comment: Spec imen volume is less than recommended minimum for accurate testing. This may affect results. LACon 03-01-2023 Lactic Acid Lvl 1.2 mmol/L Normal 0.2-2.0 [facility] ([place]) Comment on above: Performed By: #### L AC, CBC, ADIFF, GFR, MORPH, CMP, ANEU, MG #### [place] [address] Lactic Acid Lvl 1.1 mmol/L Normal 0.2-2.0 [facility] ([place]) Comment on above: Result Comment: Spec imen volume is less than recommended minimum for accurate testing. This may affect results. Performed By: #### L AC, CBC, ADIFF, GFR, MORPH, CMP, ANEU, MG #### [place] [address] Lactic Acid Lvl 1.0 mmol/L Normal 0.2-2.0 [facility] ([place]) Comment on above: Performed By: #### L AC, CBC, ADIFF, GFR, MORPH, CMP, ANEU, MG #### [place] [id number] [address] [place] [address] MGon 03-01-2023 Magnesium [Mass/Vol] 2.3 mg/dL Normal 1.6-2.4 [facility] ([place]) Comment on above: Performed By: #### L AC, CBC, ADIFF, GFR, MORPH, CMP, ANEU, MG #### [address] [address] No Panel InformationOrdered By: China Francis on 03-01-2023 Culture Respiratory with Gram Stain Refer to Gram Stain. [facility] Comment on above: Requests for Mycopla sma, Legionella, Fungi, Mycobacteria, Chlamydia, and Viruses require ordering of those individual tests. GS Predominance of epit helial cells 1+ mixed nicol including yeast Gram stain indicates oropharyngeal contamination. Repeat specimen needed for culture. [facility] Comment on above: Requests for Mycopla sma, Legionella, Fungi, Mycobacteria, Chlamydia, and Viruses require ordering of those individual tests. No Panel Informationon 03-01 Culture Urine No growth to date [facility] Work Phone: .Auto Diffon 02-28-2023 Basophil, Absolute 0.1 10 3/mcL Normal 0.0-0.2 [facility] ([place]) Comment on above: Performed By: #### L AC, CBC, ADIFF, GFR, MORPH, CMP, ANEU, MG #### [address] [address] Basophils/100 WBC (Bld) 0.4 % Normal 0.0-2.5 [facility] ([place]) Comment on above: Performed By: #### L AC, CBC, ADIFF, GFR, MORPH, CMP, ANEU, MG #### [facility] [address] [place] [address] Eosinophil, Absolute 0.2 10 3/mcL Normal 0.0-0.4 [facility] ([place]) Comment on above: Performed By: #### L AC, CBC, ADIFF, GFR, MORPH, CMP, ANEU, MG #### [address] [address] Eosinophils/100 WBC (Bld) 1.0 % Normal 0.0-7.0 [facility] ([place]) Comment on above: Performed By: #### L AC, CBC, ADIFF, GFR, MORPH, CMP, ANEU, MG #### [address] [address] Lymphocyte, Absolute 1.6 10 3/mcL Normal 0.8-3.9 [facility] ([place]) Comment on above: Performed By: #### L AC, CBC, ADIFF, GFR, MORPH, CMP, ANEU, MG #### [address] [address] Lymphocytes/100 WBC (Bld) 7.8 % Low 10.0-50.0 [facility] ([place] Comment on above: Performed By: #### L AC, CBC, ADIFF, GFR, MORPH, CMP, ANEU, MG #### [address] [address] Monocyte, Absolute 1.0 10 3/mcL Normal 0.2-1.0 [facility] ([place]) Comment on above: Performed By: #### L AC, CBC, ADIFF, GFR, MORPH, CMP, ANEU, MG #### [address] [address] Monocytes/100 WBC (Bld) 5.2 % Normal 1.7-13.0 [facility] ([place] Comment on above: Performed By: #### L AC, CBC, ADIFF, GFR, MORPH, CMP, ANEU, MG #### [address] [address] Neutrophils/100 WBC (Bld) 85.6 % High 37.0-80.0 [facility] ([place]) Comment on above: Performed By: #### L AC, CBC, ADIFF, GFR, MORPH, CMP, ANEU, MG #### [address] [address] .GFRon 02-28-2023 GFR Non- 43 ml/min/1.73sqm Normal [facility] ([place]) Comment on above: Result Comment: GFR Population mean for , Non- Americans Ages 20-29 = 116 mL/min/1.73 sq.m. Ages 30-39 = 107 mL/min/1.73 sq.m. Ages 40-49 = 99 mL/min/1.73 sq.m. Ages 50-59 = 93 mL/min/1.73 sq.m. Ages 60-69 = 85 mL/min/1.73 sq.m. Ages 70+ = 75 mL/min/1.73 sq.m. Chronic Kidney Disease: Less than 60 mL/min/1.73 square meters End Stage Renal Disease: Less than 15 mL/min/1.73 square meters Performed By: #### L AC, CBC, ADIFF, GFR, MORPH, CMP, ANEU, MG #### [address] [address] GFR 52 ml/min/1.73sqm Normal [facility] ([place] Comment on above: Result Comment: GFR Population mean for , Non- Americans Ages 20-29 = 116 mL/min/1.73 sq.m. Ages 30-39 = 107 mL/min/1.73 sq.m. Ages 40-49 = 99 mL/min/1.73 sq.m. Ages 50-59 = 93 mL/min/1.73 sq.m. Ages 60-69 = 85 mL/min/1.73 sq.m. Ages 70+ = 75 mL/min/1.73 sq.m. Chronic Kidney Disease: Less than 60 mL/min/1.73 square meters End Stage Renal Disease: Less than 15 mL/min/1.73 square meters Performed By: #### L AC, CBC, ADIFF, GFR, MORPH, CMP, ANEU, MG #### [address] [address] GFR 35 ml/min/1.73sqm Normal [facility] ([place]) Comment on above: Result Comment: GFR Population mean for , Non- Americans Ages 20-29 = 116 mL/min/1.73 sq.m. Ages 30-39 = 107 mL/min/1.73 sq.m. Ages 40-49 = 99 mL/min/1.73 sq.m. Ages 50-59 = 93 mL/min/1.73 sq.m. Ages 60-69 = 85 mL/min/1.73 sq.m. Ages 70+ = 75 mL/min/1.73 sq.m. Chronic Kidney Disease: Less than 60 mL/min/1.73 square meters End Stage Renal Disease: Less than 15 mL/min/1.73 square meters Performed By: #### T SH, LIPID, A1C #### [address] [address] GFR Non- 29 ml/min/1.73sqm Normal [facility] ([place] Comment on above: Result Comment: GFR Population mean for , Non- Americans Ages 20-29 = 116 mL/min/1.73 sq.m. Ages 30-39 = 107 mL/min/1.73 sq.m. Ages 40-49 = 99 mL/min/1.73 sq.m. Ages 50-59 = 93 mL/min/1.73 sq.m. Ages 60-69 = 85 mL/min/1.73 sq.m. Ages 70+ = 75 mL/min/1.73 sq.m. Chronic Kidney Disease: Less than 60 mL/min/1.73 square meters End Stage Renal Disease: Less than 15 mL/min/1.73 square meters Performed By: #### T SH, LIPID, A1C #### [address] [address] GFR Non- 20 ml/min/1.73sqm Normal [facility] ([place]) Comment on above: Result Comment: GFR Population mean for , Non- Americans Ages 20-29 = 116 mL/min/1.73 sq.m. Ages 30-39 = 107 mL/min/1.73 sq.m. Ages 40-49 = 99 mL/min/1.73 sq.m. Ages 50-59 = 93 mL/min/1.73 sq.m. Ages 60-69 = 85 mL/min/1.73 sq.m. Ages 70+ = 75 mL/min/1.73 sq.m. Chronic Kidney Disease: Less than 60 mL/min/1.73 square meters End Stage Renal Disease: Less than 15 mL/min/1.73 square meters Performed By: #### L AC, CBC, ADIFF, GFR, MORPH, CMP, ANEU, MG #### [address] [address] GFR 24 ml/min/1.73sqm Normal [facility] ([place]) Comment on above: Result Comment: GFR Population mean for , Non- Americans Ages 20-29 = 116 mL/min/1.73 sq.m. Ages 30-39 = 107 mL/min/1.73 sq.m. Ages 40-49 = 99 mL/min/1.73 sq.m. Ages 50-59 = 93 mL/min/1.73 sq.m. Ages 60-69 = 85 mL/min/1.73 sq.m. Ages 70+ = 75 mL/min/1.73 sq.m. Chronic Kidney Disease: Less than 60 mL/min/1.73 square meters End Stage Renal Disease: Less than 15 mL/min/1.73 square meters Performed By: #### L AC, CBC, ADIFF, GFR, MORPH, CMP, ANEU, MG #### [place] [address] .Manual Diffon 02-28-2023 Bands 11.0 % High 0.0-5.0 [facility] ([place] Comment on above: Performed By: #### L AC, CBC, ADIFF, GFR, MORPH, CMP, ANEU, MG #### [place] [address] Basophil %, Manual 0.0 % Normal 0.0-2.5 [facility] ([place]) Comment on above: Performed By: #### L AC, CBC, ADIFF, GFR, MORPH, CMP, ANEU, MG #### [place] [id number] Basophil, Abs Manual 0.0 10 3/mcL Normal 0.0-0.2 [facility] ([place]) Comment on above: Performed By: #### L AC, CBC, ADIFF, GFR, MORPH, CMP, ANEU, MG #### [place] [address] Eosinophil %, Manual 0.0 % Normal 0.0-7.0 [facility] ([place]) Comment on above: Performed By: #### L AC, CBC, ADIFF, GFR, MORPH, CMP, ANEU, MG #### [address] [address] Eosinophil, Abs Manual 0.0 10 3/mcL Normal 0.0-0.4 [facility] ([place] Comment on above: Performed By: #### L AC, CBC, ADIFF, GFR, MORPH, CMP, ANEU, MG #### [address] [address] Lymphocyte %, Manual 12.0 % Normal 10.0-50.0 [facility] ([place] Comment on above: Performed By: #### L AC, CBC, ADIFF, GFR, MORPH, CMP, ANEU, MG #### [address] [address] Lymphocyte, Abs Manual 3.0 10 3/mcL Normal 0.8-3.9 [facility] ([place] Comment on above: Performed By: #### L AC, CBC, ADIFF, GFR, MORPH, CMP, ANEU, MG #### [address] [address] Monocyte %, Manual 2.0 % Normal 1.7-13.0 [facility] ([place] Comment on above: Performed By: #### L AC, CBC, ADIFF, GFR, MORPH, CMP, ANEU, MG #### [address] [address] Monocyte, Abs Manual 0.5 10 3/mcL Normal 0.2-1.0 [facility] ([place] Comment on above: Performed By: #### L AC, CBC, ADIFF, GFR, MORPH, CMP, ANEU, MG #### [address] [address] Neutrophil %, Manual 75.0 % Normal 37.0-80.0 [facility] ([place] Comment on above: Performed By: #### L AC, CBC, ADIFF, GFR, MORPH, CMP, ANEU, MG #### [address] [address] Neutrophil, Abs Manual 18.5 10 3/mcL High 2.9-6.2 [facility] ([place] Comment on above: Performed By: #### L AC, CBC, ADIFF, GFR, MORPH, CMP, ANEU, MG #### [place] [address] Nucleated RBC 0.0 /100 WBC Normal [facility] ([place] Comment on above: Performed By: #### L AC, CBC, ADIFF, GFR, MORPH, CMP, ANEU, MG #### [address] [address] .Morphon 02-28-2023 Platelet Estimate Slt Decreased Normal [facility] ([place] Comment on above: Performed By: #### T SH, LIPID, A1C #### [place] [address] Toxic Gran 1+ Normal [facility] ([place] Comment on above: Performed By: #### T SH, LIPID, A1C #### [place] [address] .NEUABSon 02-28-2023 Neutrophil, Absolute 17.1 10 3/mcL High 2.9-6.2 [facility] ([place]) Comment on above: Performed By: #### L AC, CBC, ADIFF, GFR, MORPH, CMP, ANEU, MG #### [place] [address] A1Con 02-28-2023 HbA1c (Bld) [Mass fraction] 6.0 % Normal 4.0-6.0 [facility] ([place] Comment on above: Performed By: #### L AC, CBC, ADIFF, GFR, MORPH, CMP, ANEU, MG #### [place] [address] CBCon 02-28-2023 Erythrocyte distribution width (RBC) [Ratio] 14.7 % Normal 11.5-15.5 [facility] ([place] Comment on above: Performed By: #### L AC, CBC, ADIFF, GFR, MORPH, CMP, ANEU, MG #### [place] [address] Hematocrit (Bld) [Volume fraction] 37.0 % Normal 34.0-46.0 [facility] ([place] Comment on above: Performed By: #### L AC, CBC, ADIFF, GFR, MORPH, CMP, ANEU, MG #### [place] [address] Hgb 12.4 G/dL Normal 12.0-16.0 [facility] ([place] Comment on above: Performed By: #### L AC, CBC, ADIFF, GFR, MORPH, CMP, ANEU, MG #### [place] [address] MCH (RBC) [Entitic mass] 30.6 pg Normal 27.0-33.0 [facility] ([place] Comment on above: Performed By: #### L AC, CBC, ADIFF, GFR, MORPH, CMP, ANEU, MG #### [place] [address] MCHC 33.4 G/dL Normal 32.0-36.0 [facility] ([place] Comment on above: Performed By: #### L AC, CBC, ADIFF, GFR, MORPH, CMP, ANEU, MG #### [place] [address] MCV (RBC) [Entitic vol] 91.6 fL Normal 80.0-99.0 [facility] ([place] Comment on above: Performed By: #### L AC, CBC, ADIFF, GFR, MORPH, CMP, ANEU, MG #### [place] [address] RBC 4.04 10 6/mcL Low 4.10-5.30 [facility] ([place] Comment on above: Performed By: #### L AC, CBC, ADIFF, GFR, MORPH, CMP, ANEU, MG #### [place] [address] WBC 23.8 10 3/mcL High 4.5-10.8 [facility] ([place] Comment on above: Performed By: #### L AC, CBC, ADIFF, GFR, MORPH, CMP, ANEU, MG #### [place] [address] Erythrocyte distribution width (RBC) [Ratio] 15.0 % High 11.5-14.5 [facility] ([place] Comment on above: Performed By: #### L AC, CBC, ADIFF, GFR, MORPH, CMP, ANEU, MG #### [place] [address] Hematocrit (Bld) [Volume fraction] 38.4 % Normal 37.0-47.0 [facility] ([place] Comment on above: Performed By: #### L AC, CBC, ADIFF, GFR, MORPH, CMP, ANEU, MG #### [place] [address] Hgb 12.7 G/dL Normal 12.0-16.0 [facility] ([place] Comment on above: Performed By: #### L AC, CBC, ADIFF, GFR, MORPH, CMP, ANEU, MG #### [place] [address] MCH (RBC) [Entitic mass] 30.1 pg Normal 27.0-31.2 [facility] ([place] Comment on above: Performed By: #### L AC, CBC, ADIFF, GFR, MORPH, CMP, ANEU, MG #### [place] [address] MCHC 33.1 G/dL Normal 33.0-37.0 [facility] ([place] Comment on above: Performed By: #### L AC, CBC, ADIFF, GFR, MORPH, CMP, ANEU, MG #### [place] [address] MCV (RBC) [Entitic vol] 90.8 fL Normal 80.0-94.0 [facility] ([place] Comment on above: Performed By: #### L AC, CBC, ADIFF, GFR, MORPH, CMP, ANEU, MG #### [place] [id number] Platelet 162 10 3/mcL Normal 130-400 [facility] ([place] Comment on above: Performed By: #### L AC, CBC, ADIFF, GFR, MORPH, CMP, ANEU, MG #### [place] [address] Platelet mean volume (Bld) [Entitic vol] 8.7 fL Normal 7.4-10.4 [facility] ([place] Comment on above: Performed By: #### L AC, CBC, ADIFF, GFR, MORPH, CMP, ANEU, MG #### [place] [address] RBC 4.23 10 6/mcL Normal 4.20-5.40 [facility] ([place] Comment on above: Performed By: #### L AC, CBC, ADIFF, GFR, MORPH, CMP, ANEU, MG #### [place] [address] WBC 20.0 10 3/mcL High 4.6-10.8 [facility] ([place] Comment on above: Performed By: #### L AC, CBC, ADIFF, GFR, MORPH, CMP, ANEU, MG #### [place] [address] Erythrocyte distribution width (RBC) [Ratio] 15.1 % High 11.5-14.5 [facility] ([place] Comment on above: Performed By: #### L AC, CBC, ADIFF, GFR, MORPH, CMP, ANEU, MG #### [place] [address] Hematocrit (Bld) [Volume fraction] 40.1 % Normal 37.0-47.0 [facility] ([place] Comment on above: Performed By: #### L AC, CBC, ADIFF, GFR, MORPH, CMP, ANEU, MG #### [place] [address] Hgb 13.3 G/dL Normal 12.0-16.0 [facility] ([place] Comment on above: Performed By: #### L AC, CBC, ADIFF, GFR, MORPH, CMP, ANEU, MG #### [place] [address] MCH (RBC) [Entitic mass] 30.4 pg Normal 27.0-31.2 [facility] ([place] Comment on above: Performed By: #### L AC, CBC, ADIFF, GFR, MORPH, CMP, ANEU, MG #### [place] [address] MCHC 33.2 G/dL Normal 33.0-37.0 [facility] ([place] Comment on above: Performed By: #### L AC, CBC, ADIFF, GFR, MORPH, CMP, ANEU, MG #### [place] [address] MCV (RBC) [Entitic vol] 91.5 fL Normal 80.0-94.0 [facility] ([place] Comment on above: Performed By: #### L AC, CBC, ADIFF, GFR, MORPH, CMP, ANEU, MG #### [place] [address] Platelet 161 10 3/mcL Normal 130-400 [facility] ([place] Comment on above: Performed By: #### L AC, CBC, ADIFF, GFR, MORPH, CMP, ANEU, MG #### [place] [address] Platelet mean volume (Bld) [Entitic vol] 8.7 fL Normal 7.4-10.4 [facility] ([place] Comment on above: Performed By: #### L AC, CBC, ADIFF, GFR, MORPH, CMP, ANEU, MG #### [place] [address] RBC 4.38 10 6/mcL Normal 4.20-5.40 [facility] ([place] Comment on above: Performed By: #### L AC, CBC, ADIFF, GFR, MORPH, CMP, ANEU, MG #### [place] [address] WBC 24.7 10 3/mcL High 4.6-10.8 [facility] ([place] Comment on above: Performed By: #### L AC, CBC, ADIFF, GFR, MORPH, CMP, ANEU, MG #### [place] [address] CMPon 02-28-2023 Albumin Level 2.8 G/dL Low 3.4-4.8 [facility] ([place] Comment on above: Performed By: #### T SH, LIPID, A1C #### [place] [address] Albumin/Globulin [Mass ratio] 0.8 {ratio} Low 1.1-2.5 [facility] ([place] Comment on above: Performed By: #### T MELANIE, LIPID, A1C #### [address] [address] ALP [Catalytic activity/Vol] 97 U/L Normal 40-135 [facility] ([place] Comment on above: Performed By: #### T MELANIE, LIPID, A1C #### [place] [id number] ALT [Catalytic activity/Vol] 21 U/L Normal 14-59 [facility] ([place] Comment on above: Performed By: #### T MELANIE, LIPID, A1C #### [place] [id number] AST [Catalytic activity/Vol] 20 U/L Normal 10-40 [facility] ([place] Comment on above: Performed By: #### T MELANIE, LIPID, A1C #### [place] [id number] Bili Total 0.3 mg/dL Normal 0.2-1.0 [facility] ([place] Comment on above: Result Comment: Use of this assay is not recommended for patients undergoing treatment with eltrombopag due to the potential for falsely elevated results. Performed By: #### T MELANIE, LIPID, A1C #### [place] [id number] BUN/Creatinine Ratio 17 ratio Normal 7-27 [facility] ([place]) Comment on above: Performed By: #### T MELANIE, LIPID, A1C #### [place] [id number] Calcium [Mass/Vol] 7.9 mg/dL Low 8.4-10.2 [facility] ([place]) Comment on above: Performed By: #### T MELANIE, LIPID, A1C #### [place] [id number] Chloride [Moles/Vol] 98 mmol/L Normal 98-107 [facility] ([place]) Comment on above: Performed By: #### T MELANIE, LIPID, A1C #### [address] [address] CO2 [Moles/Vol] 25 mmol/L Normal 23-31 [facility] ([place] Comment on above: Performed By: #### T SH, LIPID, A1C #### [address] [address] Creatinine [Mass/Vol] 1.80 mg/dL High 0.55-1.02 [facility] ([place]) Comment on above: Performed By: #### T SH, LIPID, A1C #### [address] [address] Electrolyte Balance 9.0 mEq/L Normal 4.0-15.0 [facility] ([place]) Comment on above: Performed By: #### T MELANIE, LIPID, A1C #### [address] [address] Globulin 3.6 G/dL Normal [facility] ([place] Comment on above: Performed By: #### T MELANIE, LIPID, A1C #### [address] [address] Glucose [Mass/Vol] 135 mg/dL High 80-115 [facility] ([place] Comment on above: Performed By: #### T MELANIE, LIPID, A1C #### [address] [address] Potassium [Moles/Vol] 3.9 mmol/L Normal 3.5-5.1 [facility] ([place] Comment on above: Performed By: #### T MELANIE, LIPID, A1C #### [address] [address] Sodium [Moles/Vol] 132 mmol/L Low 136-145 [facility] ([place] Comment on above: Performed By: #### T MELANIE, LIPID, A1C #### [address] [address] Total Protein 6.4 G/dL Normal 6.4-8.2 [facility] ([place] Comment on above: Performed By: #### T MELANIE, LIPID, A1C #### [address] [address] Urea nitrogen [Mass/Vol] 30 mg/dL High 7-18 [facility] ([place] Comment on above: Performed By: #### T SH, LIPID, A1C #### [address] [address] BUN/Creatinine Ratio 12 ratio Normal 7-27 [facility] ([place] Comment on above: Performed By: #### L AC, CBC, ADIFF, GFR, MORPH, CMP, ANEU, MG #### [address] [address] Creatinine [Mass/Vol] 2.46 mg/dL High 0.55-1.02 [facility] ([place]) Comment on above: Performed By: #### L AC, CBC, ADIFF, GFR, MORPH, CMP, ANEU, MG #### [address] [address] Albumin Level 2.8 G/dL Low 3.4-4.8 [facility] ([place] Comment on above: Performed By: #### L AC, CBC, ADIFF, GFR, MORPH, CMP, ANEU, MG #### [address] [address] Albumin/Globulin [Mass ratio] 0.7 {ratio} Low 1.1-2.5 [facility] ([place] Comment on above: Performed By: #### L AC, CBC, ADIFF, GFR, MORPH, CMP, ANEU, MG #### [address] [address] ALP [Catalytic activity/Vol] 92 U/L Normal 40-135 [facility] ([place] Comment on above: Performed By: #### L AC, CBC, ADIFF, GFR, MORPH, CMP, ANEU, MG #### [address] [address] ALT [Catalytic activity/Vol] 25 U/L Normal 14-59 [facility] ([place] Comment on above: Performed By: #### L AC, CBC, ADIFF, GFR, MORPH, CMP, ANEU, MG #### [address] [address] AST [Catalytic activity/Vol] 20 U/L Normal 10-40 [facility] ([place] Comment on above: Performed By: #### L AC, CBC, ADIFF, GFR, MORPH, CMP, ANEU, MG #### [address] [address] Bili Total 0.3 mg/dL Normal 0.2-1.0 [facility] ([place] Comment on above: Result Comment: Use of this assay is not recommended for patients undergoing treatment with eltrombopag due to the potential for falsely elevated results. Performed By: #### L AC, CBC, ADIFF, GFR, MORPH, CMP, ANEU, MG #### [place] [address] Calcium [Mass/Vol] 7.7 mg/dL Low 8.4-10.2 [facility] ([place] Comment on above: Performed By: #### L AC, CBC, ADIFF, GFR, MORPH, CMP, ANEU, MG #### [place] [address] Chloride [Moles/Vol] 99 mmol/L Normal 98-107 [facility] ([place]) Comment on above: Performed By: #### L AC, CBC, ADIFF, GFR, MORPH, CMP, ANEU, MG #### [place] [address] CO2 [Moles/Vol] 25 mmol/L Normal 23-31 [facility] ([place] Comment on above: Performed By: #### L AC, CBC, ADIFF, GFR, MORPH, CMP, ANEU, MG #### [place] [address] Electrolyte Balance 8.0 mEq/L Normal 4.0-15.0 [facility] ([place] Comment on above: Performed By: #### L AC, CBC, ADIFF, GFR, MORPH, CMP, ANEU, MG #### [place] [phone] Globulin 3.8 G/dL Normal [facility] ([place] Comment on above: Performed By: #### L AC, CBC, ADIFF, GFR, MORPH, CMP, ANEU, MG #### [address] [address] Glucose [Mass/Vol] 136 mg/dL High 80-115 [facility] ([place] Comment on above: Performed By: #### L AC, CBC, ADIFF, GFR, MORPH, CMP, ANEU, MG #### [address] [address] Potassium [Moles/Vol] 4.1 mmol/L Normal 3.5-5.1 [facility] ([place] Comment on above: Performed By: #### L AC, CBC, ADIFF, GFR, MORPH, CMP, ANEU, MG #### [address] [address] Sodium [Moles/Vol] 132 mmol/L Low 136-145 [facility] ([place] Comment on above: Performed By: #### L AC, CBC, ADIFF, GFR, MORPH, CMP, ANEU, MG #### [address] [address] Total Protein 6.6 G/dL Normal 6.4-8.2 [facility] ([place] Comment on above: Performed By: #### L AC, CBC, ADIFF, GFR, MORPH, CMP, ANEU, MG #### [address] [address] Urea nitrogen [Mass/Vol] 29 mg/dL High 7-18 [facility] ([place] Comment on above: Performed By: #### L AC, CBC, ADIFF, GFR, MORPH, CMP, ANEU, MG #### [address] [address] CRURon 02-28-2023 U Creatinine 361.4 mg/dL High 28.0-117.0 [facility] ([place] Comment on above: Performed By: #### L AC, CBC, ADIFF, GFR, MORPH, CMP, ANEU, MG #### [place] [address] CT THORAX W/O CONTRASTon CT THORAX W/O CONTRAST ORIGINAL EXAMINATION: CT OF THE CHEST WITHOUT CONTRAST 02/28/2023 12:20 pm TECHNIQUE: CT of the chest was performed without the administration of intravenous contrast. Multiplanar reformatted images are provided for review. Automated exposure control, iterative reconstruction, and/or weight based adjustment of the mA/kV was utilized to reduce the radiation dose to as low as reasonably achievable. COMPARISON: Chest x-ray February 28, 2023 HISTORY: ORDERING SYSTEM PROVIDED HISTORY: Reason for Exam: Pt reports SOB, fever x2-3 days. concern for absess FINDINGS: Minor degenerative changes are noted in the spine. No other osseous abnormality is identified. Trace bilateral pleural effusions are noted. Minimal adjacent atelectasis is present at the lower lobes. Very prominent consolidation is evident at the mid to inferior right upper lobe, with multiple air bronchograms as well. Above this area there are very small scattered areas of ground-glass density. These are also evident more inferiorly. No other dense consolidation is visible. Small calcified mediastinal lymph nodes and right hilar lymph nodes are evident. No noncalcified adenopathy within the constraints of a noncontrast exam. Small sliding hiatal hernia. No additional contributory finding. IMPRESSION: Very prominent consolidative pneumonia within the right upper lobe with much smaller adjacent areas of infiltrate as well. Follow-up to resolution recommended to exclude non inflammatory etiologies. Trace bilateral pleural effusions with small areas of adjacent lower lobe atelectasis. Interpreted by: Lowell Bundy MD Preliminary Report By: Lowell Bundy MD Electronically signed By Lowell Bundy MD Dictated Date: 02/28/2023 12:27:35 PM Prelim Date: 02/28/2023 12:30:25 PM Sign Date: 02/28/2023 12:30:25 PM Ordering Provider: DONY Carrillo [facility] 02-28-2023 Bili Indirect 0.2 mg/dL Normal 0.1-10.0 [facility]) Comment on above: Performed By: #### L AC, CBC, ADIFF, GFR, MORPH, CMP, ANEU, MG #### [address] [address] Albumin/Globulin [Mass ratio] 0.9 {ratio} Normal 0.9-1.6 [facility]) Comment on above: Performed By: #### L AC, CBC, ADIFF, GFR, MORPH, CMP, ANEU, MG #### [address] [address] ALP [Catalytic activity/Vol] 100 U/L Normal 38-126 [facility] [place] Comment on above: Performed By: #### L AC, CBC, ADIFF, GFR, MORPH, CMP, ANEU, MG #### [address] [address] ALT [Catalytic activity/Vol] 18 U/L Normal 10-49 [facility] ([place] Comment on above: Performed By: #### L AC, CBC, ADIFF, GFR, MORPH, CMP, ANEU, MG #### [address] [address] AST [Catalytic activity/Vol] 15 U/L Normal 8-34 [facility] ([place] Comment on above: Performed By: #### L AC, CBC, ADIFF, GFR, MORPH, CMP, ANEU, MG #### [place] [id number] Bili Direct 0.1 mg/dL Normal 0.0-0.4 [facility] ([place] Comment on above: Result Comment: Use of this assay is not recommended for patients undergoing treatment with eltrombopag due to the potential for falsely elevated results. Performed By: #### L AC, CBC, ADIFF, GFR, MORPH, CMP, ANEU, MG #### [place] [address] Bili Total 0.30 mg/dL Normal 0.20-1.20 [facility] ([place] Comment on above: Result Comment: Use of this assay is not recommended for patients undergoing treatment with eltrombopag due to the potential for falsely elevated results. Performed By: #### L AC, CBC, ADIFF, GFR, MORPH, CMP, ANEU, MG #### [place] [id number] Globulin 3.2 G/dL Normal 1.5-3.8 [facility] ([place] Comment on above: Performed By: #### L AC, CBC, ADIFF, GFR, MORPH, CMP, ANEU, MG #### [place] [id number] Total Protein 6.0 G/dL Normal 5.7-8.2 [facility] ([place]) Comment on above: Result Comment: No te - New Reference Range in effect 20 Performed By: #### L AC, CBC, ADIFF, GFR, MORPH, CMP, ANEU, MG #### [place] [id number] [address] [place] [address] LABORATORYOrdered By: Cecilia Meade on 02-28-2023 Lactate [Moles/Vol] 1.0 mmol/L Invalid Interpretation Code 0.2 - 2.0 mmol/L Auto Chem SS LABORATORYOrdered By: SYSTEM SYSTEM on 02-28-2023 Albumin/Globulin [Mass ratio] 0.9 {ratio} Invalid Interpretation Code 0.9 - 1.6 ratio ADM SS ALP [Catalytic activity/Vol] 100 U/L Invalid Interpretation Code 38 - 126 U/L ADM SS ALT No additional P-5'-P [Catalytic activity/Vol] 18 U/L Invalid Interpretation Code 10 - 49 U/L ADM SS AST [Catalytic activity/Vol] 15 U/L Invalid Interpretation Code 8 - 34 U/L ADM SS Band form neutrophils/100 WBC (Bld) 1.0 % Invalid Interpretation Code 0.0 - 5.0 % Workflow SS Basophils (Bld) [#/Vol] 0.5 103/mcL Invalid Interpretation Code 0.0 - 0.3 10^3/mcL Workflow SS Basophils/100 WBC (Bld) 2.0 % Invalid Interpretation Code 0.0 - 2.5 % Workflow SS Bili Indirect 0.2 mg/dL Invalid Interpretation Code 0.1 - 10.0 mg/dL Chemistry S Bilirubin [Mass/Vol] 0.30 mg/dL Invalid Interpretation Code 0.20 - 1.20 mg/dL ADM SS Comment on above: Interpretive Data: U se of this assay is not recommended for patients undergoing treatment with eltrombopag due to the potential for falsely elevated results. Bilirubin.conjugated [Mass/Vol] 0.1 mg/dL Invalid Interpretation Code 0.0 - 0.4 mg/dL ADM SS Comment on above: Interpretive Data: U se of this assay is not recommended for patients undergoing treatment with eltrombopag due to the potential for falsely elevated results. Calcium [Mass/Vol] 8.1 mg/dL Invalid Interpretation Code 8.7 - 10.4 mg/dL AH ADM SS Chloride [Moles/Vol] 105 mmol/L Invalid Interpretation Code 98 - 110 mEq/L AH ADM SS CO2 [Moles/Vol] 24 mmol/L Invalid Interpretation Code 22 - 32 mEq/L AH ADM SS Creatinine [Mass/Vol] 1.27 mg/dL Invalid Interpretation Code 0.50 - 1.20 mg/dL AH ADM SS Electrolyte Balance 4.0 mEq/L Invalid Interpretation Code 4.0 - 15.0 mEq/L AH ADM SS Eosinophils (Bld) [#/Vol] 1.0 103/mcL Invalid Interpretation Code 0.0 - 0.7 10^3/mcL Workflow SS Eosinophils/100 WBC (Bld) 4.0 % Invalid Interpretation Code 0.0 - 6.0 % Workflow SS Erythrocyte distribution width (RBC) [Ratio] 14.7 % Invalid Interpretation Code 11.5 - 15.5 % Workflow SS GFR/1.73 sq M.predicted among blacks MDRD (S/P/Bld) [Vol rate/Area] 52 ml/min/1.73sqm Invalid Interpretation Code AH ADM SS Comment on above: Interpretive Data: GFR Population mean for , Non- Americans Ages 20-29 = 116 mL/min/1.73 sq.m. Ages 30-39 = 107 mL/min/1.73 sq.m. Ages 40-49 = 99 mL/min/1.73 sq.m. Ages 50-59 = 93 mL/min/1.73 sq.m. Ages 60-69 = 85 mL/min/1.73 sq.m. Ages 70+ = 75 mL/min/1.73 sq.m. Chronic Kidney Disease: Less than 60 mL/min/1.73 square meters End Stage Renal Disease: Less than 15 mL/min/1.73 square meters GFR/1.73 sq M.predicted among non-blacks MDRD (S/P/Bld) [Vol rate/Area] 43 ml/min/1.73sqm Invalid Interpretation Code AH ADM SS Comment on above: Interpretive Data: GFR Population mean for , Non- Americans Ages 20-29 = 116 mL/min/1.73 sq.m. Ages 30-39 = 107 mL/min/1.73 sq.m. Ages 40-49 = 99 mL/min/1.73 sq.m. Ages 50-59 = 93 mL/min/1.73 sq.m. Ages 60-69 = 85 mL/min/1.73 sq.m. Ages 70+ = 75 mL/min/1.73 sq.m. Chronic Kidney Disease: Less than 60 mL/min/1.73 square meters End Stage Renal Disease: Less than 15 mL/min/1.73 square meters Globulin 3.2 G/dL Invalid Interpretation Code 1.5 - 3.8 G/dL AH ADM SS Glucose [Mass/Vol] 126 mg/dL Invalid Interpretation Code 82 - 115 mg/dL ADM SS HbA1c (Bld) [Mass fraction] 6.0 % Invalid Interpretation Code 4.0 - 6.0 % Auto Chem SS Hematocrit (Bld) [Volume fraction] 37.0 % Invalid Interpretation Code 34.0 - 46.0 % Workflow SS Hemoglobin (Bld) [Mass/Vol] 12.4 G/dL Invalid Interpretation Code 12.0 - 16.0 G/dL AH Workflow SS Lymphocytes (Bld) [#/Vol] 2.1 103/mcL Invalid Interpretation Code 0.9 - 4.3 10^3/mcL AH Workflow SS Lymphocytes/100 WBC (Bld) 9.0 % Invalid Interpretation Code 20.0 - 40.0 % AH Workflow SS Magnesium [Mass/Vol] 2.4 mg/dL Invalid Interpretation Code 1.6 - 2.4 mg/dL ADM SS MCH (RBC) [Entitic mass] 30.6 pg Invalid Interpretation Code 27.0 - 33.0 pg AH Workflow SS MCHC 33.4 G/dL Invalid Interpretation Code 32.0 - 36.0 G/dL Workflow SS MCV (RBC) [Entitic vol] 91.6 fL Invalid Interpretation Code 80.0 - 99.0 fL Workflow SS Monocytes (Bld) [#/Vol] 1.2 103/mcL Invalid Interpretation Code 0.1 - 1.4 10^3/mcL AH Workflow SS Monocytes/100 WBC (Bld) 5.0 % Invalid Interpretation Code 2.0 - 13.0 % AH Workflow SS Neutrophils (Bld) [#/Vol] 18.8 103/mcL Invalid Interpretation Code 2.3 - 8.1 10^3/mcL AH Workflow SS Neutrophils/100 WBC (Bld) 79.0 % Invalid Interpretation Code 50.0 - 75.0 % Workflow SS Nucleated RBC 0.0 /100 WBC Invalid Interpretation Code Workflow SS Phosphate [Mass/Vol] 3.1 mg/dL Invalid Interpretation Code 2.4 - 5.1 mg/dL ADM SS Comment on above: Interpretive Data: * *Note - New Reference Range in effect 20 Platelet mean volume (Bld) [Entitic vol] 9.7 fL Invalid Interpretation Code 6.6 - 10.5 fL Workflow SS Platelets (Bld) [#/Vol] 176 103/mcL Invalid Interpretation Code 150 - 450 10^3/mcL Workflow SS Platelets LM Ql (Bld) Normal *NA* (02/28/23 8:25 PM) Invalid Interpretation Code Workflow SS Potassium [Moles/Vol] 3.9 mmol/L Invalid Interpretation Code 3.5 - 5.0 mEq/L ADM Comment on above: Result Comment: Spec imen slightly hemolyzed. Protein [Mass/Vol] 6.0 G/dL Invalid Interpretation Code 5.7 - 8.2 G/dL ADM Comment on above: Interpretive Data: * *Note - New Reference Range in effect 20 RBC (Bld) [#/Vol] 4.04 106/mcL Invalid Interpretation Code 4.10 - 5.30 10^6/mcL Workflow SS RBC morphology finding Nom (Bld) See Below 1 *NA* (02/28/23 8:25 PM) Invalid Interpretation Code Workflow Comment on above: Result Comment: RBC Morphology appears Normal RBC morphology finding Nom (Bld) See Below 2 *NA* (02/28/23 8:25 PM) Invalid Interpretation Code Workflow Comment on above: Result Comment: RBC Morphology appears Normal RBC morphology finding Nom (Bld) See Below 3 *NA* (02/28/23 8:25 PM) Invalid Interpretation Code Workflow SS Comment on above: Result Comment: RBC Morphology appears Normal Sodium [Moles/Vol] 133 mmol/L Invalid Interpretation Code 136 - 145 mEq/L ADM SS Urea nitrogen [Mass/Vol] 24.0 mg/dL Invalid Interpretation Code 8.0 - 22.0 mg/dL ADM SS Urea nitrogen/Creatinine [Mass ratio] 18.9 ratio Invalid Interpretation Code 10.0 - 22.0 ratio AH ADM SS WBC (Bld) [#/Vol] 23.8 103/mcL Invalid Interpretation Code 4.5 - 10.8 10^3/mcL AH Workflow SS Albumin BCP dye [Mass/Vol] 2.8 G/dL Invalid Interpretation Code 3.4 - 4.8 G/dL AO ADM SS Albumin/Globulin [Mass ratio] 0.8 {ratio} Invalid Interpretation Code 1.1 - 2.5 ratio AO ADM SS ALP [Catalytic activity/Vol] 97 U/L Invalid Interpretation Code 40 - 135 U/L AO ADM SS ALT With P-5'-P [Catalytic activity/Vol] 21 U/L Invalid Interpretation Code 14 - 59 U/L AO ADM SS AST With P-5'-P [Catalytic activity/Vol] 20 U/L Invalid Interpretation Code 10 - 40 U/L AO ADM SS Basophil, Absolute 0.1 103/mcL Invalid Interpretation Code 0.0 - 0.2 10^3/mcL AO Workflow SS Basophils/100 WBC (Bld) 0.4 % Invalid Interpretation Code 0.0 - 2.5 % AO Workflow SS Bilirubin [Mass/Vol] 0.3 mg/dL Invalid Interpretation Code 0.2 - 1.0 mg/dL AO ADM SS Comment on above: Interpretive Data: U se of this assay is not recommended for patients undergoing treatment with eltrombopag due to the potential for falsely elevated results. Calcium [Mass/Vol] 7.9 mg/dL Invalid Interpretation Code 8.4 - 10.2 mg/dL AO ADM SS Chloride [Moles/Vol] 98 mmol/L Invalid Interpretation Code 98 - 107 mmol/L AO ADM SS CO2 [Moles/Vol] 25 mmol/L Invalid Interpretation Code 23 - 31 mmol/L AO ADM SS Creatinine [Mass/Vol] 1.80 mg/dL Invalid Interpretation Code 0.55 - 1.02 mg/dL AO ADM SS Electrolyte Balance 9.0 mEq/L Invalid Interpretation Code 4.0 - 15.0 mEq/L AO ADM SS Eosinophil, Absolute 0.2 103/mcL Invalid Interpretation Code 0.0 - 0.4 10^3/mcL AO Workflow SS Eosinophils/100 WBC (Bld) 1.0 % Invalid Interpretation Code 0.0 - 7.0 % AO Workflow SS Erythrocyte distribution width (RBC) [Ratio] 15.0 % Invalid Interpretation Code 11.5 - 14.5 % AO Workflow SS GFR/1.73 sq M.predicted among blacks MDRD (S/P/Bld) [Vol rate/Area] 35 ml/min/1.73sqm Invalid Interpretation Code AO Chemistry S Comment on above: Interpretive Data: GFR Population mean for , Non- Americans Ages 20-29 = 116 mL/min/1.73 sq.m. Ages 30-39 = 107 mL/min/1.73 sq.m. Ages 40-49 = 99 mL/min/1.73 sq.m. Ages 50-59 = 93 mL/min/1.73 sq.m. Ages 60-69 = 85 mL/min/1.73 sq.m. Ages 70+ = 75 mL/min/1.73 sq.m. Chronic Kidney Disease: Less than 60 mL/min/1.73 square meters End Stage Renal Disease: Less than 15 mL/min/1.73 square meters GFR/1.73 sq M.predicted among non-blacks MDRD (S/P/Bld) [Vol rate/Area] 29 ml/min/1.73sqm Invalid Interpretation Code AO Chemistry S Comment on above: Interpretive Data: GFR Population mean for , Non- Americans Ages 20-29 = 116 mL/min/1.73 sq.m. Ages 30-39 = 107 mL/min/1.73 sq.m. Ages 40-49 = 99 mL/min/1.73 sq.m. Ages 50-59 = 93 mL/min/1.73 sq.m. Ages 60-69 = 85 mL/min/1.73 sq.m. Ages 70+ = 75 mL/min/1.73 sq.m. Chronic Kidney Disease: Less than 60 mL/min/1.73 square meters End Stage Renal Disease: Less than 15 mL/min/1.73 square meters Globulin 3.6 G/dL Invalid Interpretation Code AO ADM SS Glucose [Mass/Vol] 135 mg/dL Invalid Interpretation Code 80 - 115 mg/dL AO ADM SS Hematocrit (Bld) [Volume fraction] 38.4 % Invalid Interpretation Code 37.0 - 47.0 % AO Workflow SS Hemoglobin (Bld) [Mass/Vol] 12.7 G/dL Invalid Interpretation Code 12.0 - 16.0 G/dL AO Workflow SS Lactate [Moles/Vol] 1.4 mmol/L Invalid Interpretation Code 0.4 - 2.0 mmol/L AO ADM SS Lymphocyte, Absolute 1.6 103/mcL Invalid Interpretation Code 0.8 - 3.9 10^3/mcL AO Workflow SS Lymphocytes/100 WBC (Bld) 7.8 % Invalid Interpretation Code 10.0 - 50.0 % AO Workflow SS MCH (RBC) [Entitic mass] 30.1 pg Invalid Interpretation Code 27.0 - 31.2 pg AO Workflow SS MCHC 33.1 G/dL Invalid Interpretation Code 33.0 - 37.0 G/dL AO Workflow SS MCV (RBC) [Entitic vol] 90.8 fL Invalid Interpretation Code 80.0 - 94.0 fL AO Workflow SS Monocyte, Absolute 1.0 103/mcL Invalid Interpretation Code 0.2 - 1.0 10^3/mcL AO Workflow SS Monocytes/100 WBC (Bld) 5.2 % Invalid Interpretation Code 1.7 - 13.0 % AO Workflow SS Neutrophil, Absolute 17.1 103/mcL Invalid Interpretation Code 2.9 - 6.2 10^3/mcL AO Workflow SS Neutrophils/100 WBC (Bld) 85.6 % Invalid Interpretation Code 37.0 - 80.0 % AO Workflow SS Platelet mean volume (Bld) [Entitic vol] 8.7 fL Invalid Interpretation Code 7.4 - 10.4 fL AO Workflow SS Platelets (Bld) [#/Vol] 162 103/mcL Invalid Interpretation Code 130 - 400 10^3/mcL AO Workflow SS Potassium [Moles/Vol] 3.9 mmol/L Invalid Interpretation Code 3.5 - 5.1 mmol/L AO ADM SS Protein [Mass/Vol] 6.4 G/dL Invalid Interpretation Code 6.4 - 8.2 G/dL AO ADM SS RBC (Bld) [#/Vol] 4.23 106/mcL Invalid Interpretation Code 4.20 - 5.40 10^6/mcL AO Workflow SS Sodium [Moles/Vol] 132 mmol/L Invalid Interpretation Code 136 - 145 mmol/L AO ADM SS Urea nitrogen [Mass/Vol] 30 mg/dL Invalid Interpretation Code 7 - 18 mg/dL AO ADM SS Urea nitrogen/Creatinine [Mass ratio] 17 ratio Invalid Interpretation Code 7 - 27 ratio AO ADM SS WBC (Bld) [#/Vol] 20.0 103/mcL Invalid Interpretation Code 4.6 - 10.8 10^3/mcL AO Workflow SS Creatinine (U) [Mass/Vol] 361.4 mg/dL Invalid Interpretation Code 28.0 - 117.0 mg/dL AO ADM SS Sodium (U) [Moles/Vol] 43 mmol/L Invalid Interpretation Code 20 - 110 mmol/L AO ADM SS Lactate [Moles/Vol] 1.7 mmol/L Invalid Interpretation Code 0.4 - 2.0 mmol/L AO ADM SS Natriuretic peptide.B prohormone N-Terminal [Mass/Vol] 1600 pg/mL Invalid Interpretation Code 0 - 125 pg/mL AO ADM SS Comment on above: Interpretive Data: N T-proBNP results of less than 300 pg/mL effectively rules out acute congestive heart failure with 99% negative predictive value. Troponin I.cardiac DL <= 0.01 ng/mL [Mass/Vol] 6.3 ng/L Invalid Interpretation Code 0.0 - 51.4 ng/L AO ADM SS Albumin BCP dye [Mass/Vol] 2.8 G/dL Invalid Interpretation Code 3.4 - 4.8 G/dL AO ADM SS Albumin/Globulin [Mass ratio] 0.7 {ratio} Invalid Interpretation Code 1.1 - 2.5 ratio AO ADM SS ALP [Catalytic activity/Vol] 92 U/L Invalid Interpretation Code 40 - 135 U/L AO ADM SS ALT With P-5'-P [Catalytic activity/Vol] 25 U/L Invalid Interpretation Code 14 - 59 U/L AO ADM SS AST With P-5'-P [Catalytic activity/Vol] 20 U/L Invalid Interpretation Code 10 - 40 U/L AO ADM SS Bands 11.0 1 Invalid Interpretation Code 0.0 - 5.0 % AO Workflow SS Basophil %, Manual 0.0 1 Invalid Interpretation Code 0.0 - 2.5 % AO Workflow SS Basophil, Abs Manual 0.0 103/mcL Invalid Interpretation Code 0.0 - 0.2 10^3/mcL AO Workflow SS Bilirubin [Mass/Vol] 0.3 mg/dL Invalid Interpretation Code 0.2 - 1.0 mg/dL AO ADM SS Comment on above: Interpretive Data: U se of this assay is not recommended for patients undergoing treatment with eltrombopag due to the potential for falsely elevated results. Calcium [Mass/Vol] 7.7 mg/dL Invalid Interpretation Code 8.4 - 10.2 mg/dL AO ADM SS Chloride [Moles/Vol] 99 mmol/L Invalid Interpretation Code 98 - 107 mmol/L AO ADM SS CO2 [Moles/Vol] 25 mmol/L Invalid Interpretation Code 23 - 31 mmol/L AO ADM SS Creatinine [Mass/Vol] 2.46 mg/dL Invalid Interpretation Code 0.55 - 1.02 mg/dL AO ADM SS Electrolyte Balance 8.0 mEq/L Invalid Interpretation Code 4.0 - 15.0 mEq/L AO ADM SS Eosinophil %, Manual 0.0 1 Invalid Interpretation Code 0.0 - 7.0 % AO Workflow SS Eosinophils (Bld) [#/Vol] 0.0 103/mcL Invalid Interpretation Code 0.0 - 0.4 10^3/mcL AO Workflow SS Erythrocyte distribution width (RBC) [Ratio] 15.1 % Invalid Interpretation Code 11.5 - 14.5 % AO Workflow SS GFR/1.73 sq M.predicted among blacks MDRD (S/P/Bld) [Vol rate/Area] 24 ml/min/1.73sqm Invalid Interpretation Code AO Chemistry S Comment on above: Interpretive Data: GFR Population mean for , Non- Americans Ages 20-29 = 116 mL/min/1.73 sq.m. Ages 30-39 = 107 mL/min/1.73 sq.m. Ages 40-49 = 99 mL/min/1.73 sq.m. Ages 50-59 = 93 mL/min/1.73 sq.m. Ages 60-69 = 85 mL/min/1.73 sq.m. Ages 70+ = 75 mL/min/1.73 sq.m. Chronic Kidney Disease: Less than 60 mL/min/1.73 square meters End Stage Renal Disease: Less than 15 mL/min/1.73 square meters GFR/1.73 sq M.predicted among non-blacks MDRD (S/P/Bld) [Vol rate/Area] 20 ml/min/1.73sqm Invalid Interpretation Code AO Chemistry S Comment on above: Interpretive Data: GFR Population mean for , Non- Americans Ages 20-29 = 116 mL/min/1.73 sq.m. Ages 30-39 = 107 mL/min/1.73 sq.m. Ages 40-49 = 99 mL/min/1.73 sq.m. Ages 50-59 = 93 mL/min/1.73 sq.m. Ages 60-69 = 85 mL/min/1.73 sq.m. Ages 70+ = 75 mL/min/1.73 sq.m. Chronic Kidney Disease: Less than 60 mL/min/1.73 square meters End Stage Renal Disease: Less than 15 mL/min/1.73 square meters Globulin 3.8 G/dL Invalid Interpretation Code AO ADM SS Glucose [Mass/Vol] 136 mg/dL Invalid Interpretation Code 80 - 115 mg/dL AO ADM SS Hematocrit (Bld) [Volume fraction] 40.1 % Invalid Interpretation Code 37.0 - 47.0 % AO Workflow SS Hemoglobin (Bld) [Mass/Vol] 13.3 G/dL Invalid Interpretation Code 12.0 - 16.0 G/dL AO Workflow SS Lymphocyte %, Manual 12.0 1 Invalid Interpretation Code 10.0 - 50.0 % AO Workflow SS Lymphocyte, Abs Manual 3.0 103/mcL Invalid Interpretation Code 0.8 - 3.9 10^3/mcL AO Workflow SS Magnesium [Mass/Vol] 2.7 mg/dL Invalid Interpretation Code 1.8 - 2.4 mg/dL AO ADM SS MCH (RBC) [Entitic mass] 30.4 pg Invalid Interpretation Code 27.0 - 31.2 pg AO Workflow SS MCHC 33.2 G/dL Invalid Interpretation Code 33.0 - 37.0 G/dL AO Workflow SS MCV (RBC) [Entitic vol] 91.5 fL Invalid Interpretation Code 80.0 - 94.0 fL AO Workflow SS Monocyte %, Manual 2.0 1 Invalid Interpretation Code 1.7 - 13.0 % AO Workflow SS Monocyte, Abs Manual 0.5 103/mcL Invalid Interpretation Code 0.2 - 1.0 10^3/mcL AO Workflow SS Neutrophil %, Manual 75.0 1 Invalid Interpretation Code 37.0 - 80.0 % AO Workflow SS Neutrophil, Abs Manual 18.5 103/mcL Invalid Interpretation Code 2.9 - 6.2 10^3/mcL AO Workflow SS Nucleated RBC 0.0 /100 WBC Invalid Interpretation Code AO Workflow SS Platelet Estimate Slt Decreased *NA* (02/28/23 5:15 AM) Invalid Interpretation Code AO Workflow SS Platelet mean volume (Bld) [Entitic vol] 8.7 fL Invalid Interpretation Code 7.4 - 10.4 fL AO Workflow SS Platelets (Bld) [#/Vol] 161 103/mcL Invalid Interpretation Code 130 - 400 10^3/mcL AO Workflow SS Potassium [Moles/Vol] 4.1 mmol/L Invalid Interpretation Code 3.5 - 5.1 mmol/L AO ADM SS Protein [Mass/Vol] 6.6 G/dL Invalid Interpretation Code 6.4 - 8.2 G/dL AO ADM SS RBC (Bld) [#/Vol] 4.38 106/mcL Invalid Interpretation Code 4.20 - 5.40 10^6/mcL AO Workflow SS Sodium [Moles/Vol] 132 mmol/L Invalid Interpretation Code 136 - 145 mmol/L AO ADM SS Toxic Gran 1+ *NA* (02/28/23 5:15 AM) Invalid Interpretation Code AO Workflow SS Urea nitrogen [Mass/Vol] 29 mg/dL Invalid Interpretation Code 7 - 18 mg/dL AO ADM SS Urea nitrogen/Creatinine [Mass ratio] 12 ratio Invalid Interpretation Code 7 - 27 ratio AO ADM SS WBC (Bld) [#/Vol] 24.7 103/mcL Invalid Interpretation Code 4.6 - 10.8 10^3/mcL AO Workflow SS LABORATORYOrdered By: Benjamin Lemus on 02-28-2023 M. pneumoniae IgM IA Ql (S) Negative 10 (02/28/23 8:25 PM) Invalid Interpretation Code AH Man Viro/Sero SS Comment on above: Interpretive Data: I NTERPRETATION OF MYCOPLASMA IgM: Negative: IgM to M. pneumoniae Absent, or at levels below the assay limit of detection. Positive: IgM to M. pneumoniae Present. Invalid: Test results are invalid due to invalid internal control. Assay was performed in duplicate. Repeat testing is suggested if clinically indicated. Adenovirus DNA TAMMY+non-probe Ql (Nph) Not Detected *NA* (02/28/23 8:10 AM) Invalid Interpretation Code Not Detected AH Auto Viro/Sero SS B. parapertussis [id number] DNA TAMMY+non-probe Ql (Nph) Not Detected *NA* (02/28/23 8:10 AM) Invalid Interpretation Code Not Detected AH Auto Viro/Sero SS B. pertussis toxin promoter region TAMMY+non-probe Ql (Nph) Not Detected *NA* (02/28/23 8:10 AM) Invalid Interpretation Code Not Detected AH Auto Viro/Sero SS C. pneumoniae DNA TAMMY+non-probe Ql (Nph) Not Detected *NA* (02/28/23 8:10 AM) Invalid Interpretation Code Not Detected AH Auto Viro/Sero SS FLUAV RNA TAMMY+non-probe Ql (Nph) Not Detected *NA* (02/28/23 8:10 AM) Invalid Interpretation Code Not Detected AH Auto Viro/Sero SS FLUBV RNA TAMMY+non-probe Ql (Nph) Not Detected *NA* (02/28/23 8:10 AM) Invalid Interpretation Code Not Detected AH Auto Viro/Sero SS hMPV RNA TAMMY+non-probe Ql (Nph) Not Detected *NA* (02/28/23 8:10 AM) Invalid Interpretation Code Not Detected AH Auto Viro/Sero SS M. pneumoniae DNA TAMMY+non-probe Ql (Nph) Not Detected *NA* (02/28/23 8:10 AM) Invalid Interpretation Code Not Detected AH Auto Viro/Sero SS MRSA DNA TAMMY+probe Ql (Unsp spec) Not Detected 1 (02/28/23 8:10 AM) Invalid Interpretation Code Not Detected AH Auto Viro/Sero SS Comment on above: Result Comment: Note s [id number] MRSA PCR Int MRSA DNA not detecte d by Real-Time Polymerase Chain Reaction (PCR). A negative result may be due to intermittent colonization. Colonization may vary depending on patient treatment, patient status, or exposure to high-risk environments.As with all PCR based in vitro diagnostic tests, extremely low levels of target below the limit of detection of the assay may be detected, but results may not be reproducible. Invalid Interpretation Code AH Auto Viro/Sero SS Parainfluenza virus 1 RNA TAMMY+non-probe Ql (Nph) Not Detected *NA* (02/28/23 8:10 AM) Invalid Interpretation Code Not Detected AH Auto Viro/Sero SS Parainfluenza virus 2 RNA TAMMY+non-probe Ql (Nph) Not Detected *NA* (02/28/23 8:10 AM) Invalid Interpretation Code Not Detected AH Auto Viro/Sero SS Parainfluenza virus 3 RNA TAMMY+non-probe Ql (Nph) Not Detected *NA* (02/28/23 8:10 AM) Invalid Interpretation Code Not Detected AH Auto Viro/Sero SS Parainfluenza virus 4 RNA TAMMY+non-probe Ql (Nph) Not Detected *NA* (02/28/23 8:10 AM) Invalid Interpretation Code Not Detected AH Auto Viro/Sero SS Rhinovirus+Enterovirus RNA TAMMY+non-probe Ql (Nph) Not Detected *NA* (02/28/23 8:10 AM) Invalid Interpretation Code Not Detected AH Auto Viro/Sero SS RSV RNA TAMMY+non-probe Ql (Nph) Not Detected *NA* (02/28/23 8:10 AM) Invalid Interpretation Code Not Detected AH Auto Viro/Sero SS SARS-CoV-2 (COVID-19) RNA TAMMY+probe Ql (Resp) Not Detected 4 *NA* (02/28/23 8:10 AM) Invalid Interpretation Code Not Detected AH Auto Viro/Sero SS Comment on above: Interpretive Data: T his test is being used under the FDA EUA procedure. This assay has been validated in the [facility] for use with nasopharyngeal specimens in [facility]. If a non-validated specimen or test collection method was used, please interpret the results with caution, especially if the test result is negative. A positive test result for COVID-19 indicates that RNA from SARS-CoV-2 was detected, and the patient is infected with the virus and presumed to be contagious. Laboratory test results should always be considered in the context of clinical observations and epidemiological data in making a final diagnosis and patient management decisions. Patient management should follow current CDC guidelines. A negative test result for this test means that SARS-CoV-2 RNA was not present in the specimen above the limit of detection. However, a negative result does not rule out COVID-19 and should not be used as the sole basis for treatment or patient management decisions. A negative result does not exclude the possibility of COVID-19. When diagnostic testing is negative, the possibility of a false negative result should be considered in the context of a patient's recent exposures and the presence of clinical signs and symptoms consistent with COVID-19. The possibility of a false negative result should especially be considered if the patient s recent exposures or clinical presentation indicate that COVID-19 is likely, and diagnostic tests for other causes of illness (e.g., other respiratory illness) are negative. If COVID-19 is still suspected based on exposure history together with other clinical findings, re-testing should be considered by healthcare providers in consultation with public health authorities. LABORATORYOrdered By: Amanda galvez on 02-28-2023 Glucose [Mass/Vol] 171 mg/dL Invalid Interpretation Code 82 - 115 mg/dL [facility] Work Phone: LACon 02-28-2023 Lactic Acid Lvl 1.5 mmol/L Normal 0.2-2.0 [facility] ([place]) Comment on above: Performed By: #### L AC, CBC, ADIFF, GFR, MORPH, CMP, ANEU, MG #### [place] [address] Lactic Acid Lvl 1.4 mmol/L Normal 0.4-2.0 [facility] ([place]) Comment on above: Performed By: #### L AC, CBC, ADIFF, GFR, MORPH, CMP, ANEU, MG #### [address] [address] Lactic Acid Lvl 1.7 mmol/L Normal 0.4-2.0 [facility] ([place]) Comment on above: Performed By: #### T SH, LIPID, A1C #### [place] [address] Laboratory - Chemistry and C hemistry - challengeOrdered By: SYSTEM SYSTEM on 02-28-2023 Albumin BCP dye [Mass/Vol] 2.8 G/dL Invalid Interpretation Code 3.2 - 4.8 G/dL AH ADM SS MGon 02-28-2023 Magnesium [Mass/Vol] 2.4 mg/dL Normal 1.6-2.4 [facility] ([place]) Comment on above: Performed By: #### L AC, CBC, ADIFF, GFR, MORPH, CMP, ANEU, MG #### [address] [address] Magnesium [Mass/Vol] 2.7 mg/dL High 1.8-2.4 [facility] ([place]) Comment on above: Performed By: #### T SH, LIPID, A1C #### [address] [address] MRSAPCRon 02-28-2023 MRSA (PCR) Not detected Normal Not Detected [facility] ([place]) Comment on above: Result Comment: Note s [id number] Performed By: #### L AC, CBC, ADIFF, GFR, MORPH, CMP, ANEU, MG #### [address] [address] MRSA PCR Int Normal [facility] ([place]) Comment on above: Result Comment: MRSA DNA not detected by Real-Time Polymerase Chain Reaction (PCR). A negative result may be due to intermittent colonization. Colonization may vary depending on patient treatment, patient status, or exposure to high-risk environments. As with all PCR based in vitro diagnostic tests, extremely low levels of target below the limit of detection of the assay may be detected, but results may not be reproducible. See Below Performed By: #### L AC, CBC, ADIFF, GFR, MORPH, CMP, ANEU, MG #### [address] [address] NAURon 02-28-2023 Sodium [Moles/Vol] 43 mmol/L Normal 20-110 [facility] ([place]) Comment on above: Performed By: #### L AC, CBC, ADIFF, GFR, MORPH, CMP, ANEU, MG #### [address] [address] No Panel Informationon 02-28 Microscopic examination of blood, culture Culture has been received in lab and is no growth to date. Routine cultures are held for 5 days. [facility] Work Phone: Legionella Urine Ag Presumptive negative for L. pneumophila serogroup 1 antigen in urine, suggesting no recent or current infection. Legionnaire's disease cannot be ruled out since other serogroups and species may also cause disease. [facility] Work Phone: Streptococcus Pneumoniae Urine Antig Presumptive negative for pneumococcal pneumonia, suggesting no current or recent pneumococcal infection. Infection due to Strep pneumoniae cannot be ruled out since the antigen present in the sample may be below the detection limit of the test. [facility] Work Phone: Comment on above: This test has not be en evaluated on patients taking antibiotics for greater than 24 hours or on patients who have recently completed an antibiotic regimen. The accuracy of this test has not been proven in young children. PBNPon 02-28-2023 Natriuretic peptide B (Bld) [Mass/Vol] 1600 pg/mL High 0-125 [facility] ([place]) Comment on above: Result Comment: NT-p roBNP results of less than 300 pg/mL effectively rules out acute congestive heart failure with 99% negative predictive value. Performed By: #### T SH, LIPID, A1C #### [place] [address] RESCVIDon 02-28-2023 Adenovirus Not detected Normal Not Detected [facility] ([place]) Comment on above: Performed By: #### L AC, CBC, ADIFF, GFR, MORPH, CMP, ANEU, MG #### [place] [address] Bordetella Parapertussis Not detected Normal Not Detected [facility] ([place]) Comment on above: Performed By: #### L AC, CBC, ADIFF, GFR, MORPH, CMP, ANEU, MG #### [place] [address] Bordetella Pertussis Not detected Normal Not Detected [facility] ([place]) Comment on above: Performed By: #### L AC, CBC, ADIFF, GFR, MORPH, CMP, ANEU, MG #### [place] [address] Chlamydophila pneumoniae Not detected Normal Not Detected [facility] ([place]) Comment on above: Performed By: #### L AC, CBC, ADIFF, GFR, MORPH, CMP, ANEU, MG #### [place] [address] Coronavirus 229E (Not COVID-19) Not detected Normal Not Detected [facility] ([place]) Comment on above: Performed By: #### L AC, CBC, ADIFF, GFR, MORPH, CMP, ANEU, MG #### [place] [address] Coronavirus HKU1 (Not COVID-19) Not detected Normal Not Detected [facility] ([place] Comment on above: Performed By: #### L AC, CBC, ADIFF, GFR, MORPH, CMP, ANEU, MG #### [place] [address] Coronavirus NL63 (Not COVID-19) Not detected Normal Not Detected [facility] ([place]) Comment on above: Performed By: #### L AC, CBC, ADIFF, GFR, MORPH, CMP, ANEU, MG #### [place] [address] Coronavirus OC43 (Not COVID-19) Not detected Normal Not Detected [facility] ([place] Comment on above: Performed By: #### L AC, CBC, ADIFF, GFR, MORPH, CMP, ANEU, MG #### [place] [address] Human Metapneumovirus Not detected Normal Not Detected [facility] ([place] Comment on above: Performed By: #### L AC, CBC, ADIFF, GFR, MORPH, CMP, ANEU, MG #### [place] [address] Influenza A Not detected Normal Not Detected [facility] ([place] Comment on above: Performed By: #### L AC, CBC, ADIFF, GFR, MORPH, CMP, ANEU, MG #### [place] [address] Influenza B Not detected Normal Not Detected [facility] ([place] Comment on above: Performed By: #### L AC, CBC, ADIFF, GFR, MORPH, CMP, ANEU, MG #### [place] [address] Mycoplasma pneumoniae Not detected Normal Not Detected [facility] ([place] Comment on above: Performed By: #### L AC, CBC, ADIFF, GFR, MORPH, CMP, ANEU, MG #### [place] [address] Parainfluenza 1 Not detected Normal Not Detected [facility] ([place] Comment on above: Performed By: #### L AC, CBC, ADIFF, GFR, MORPH, CMP, ANEU, MG #### [place] [address] Parainfluenza 2 Not detected Normal Not Detected [facility] ([place] Comment on above: Performed By: #### L AC, CBC, ADIFF, GFR, MORPH, CMP, ANEU, MG #### [place] [id number] Parainfluenza 3 Not detected Normal Not Detected [facility] ([place] Comment on above: Performed By: #### L AC, CBC, ADIFF, GFR, MORPH, CMP, ANEU, MG #### [place] [id number] Parainfluenza 4 Not detected Normal Not Detected [facility] ([place]) Comment on above: Performed By: #### L AC, CBC, ADIFF, GFR, MORPH, CMP, ANEU, MG #### [place] [id number] Respiratory Syncytial Virus Not detected Normal Not Detected [facility] ([place]) Comment on above: Performed By: #### L AC, CBC, ADIFF, GFR, MORPH, CMP, ANEU, MG #### [place] [address] Rhinovirus/Enterovirus Not detected Normal Not Detected [facility] ([place] Comment on above: Performed By: #### L AC, CBC, ADIFF, GFR, MORPH, CMP, ANEU, MG #### [place] [address] SARS-CoV-2 (COVID-19) RNA TAMMY+probe Ql (Unsp spec) Not detected Normal Not Detected [facility] ([place]) Comment on above: Result Comment: This test is being used under the FDA EUA procedure. This assay has been validated in the [facility] for use with nasopharyngeal specimens in [facility]. If a non-validated specimen or test collection method was used, please interpret the results with caution, especially if the test result is negative. A positive test result for COVID-19 indicates that RNA from SARS-CoV-2 was detected, and the patient is infected with the virus and presumed to be contagious. Laboratory test results should always be considered in the context of clinical observations and epidemiological data in making a final diagnosis and patient management decisions. Patient management should follow current CDC guidelines. A negative test result for this test means that SARS-CoV-2 RNA was not present in the specimen above the limit of detection. However, a negative result does not rule out COVID-19 and should not be used as the sole basis for treatment or patient management decisions. A negative result does not exclude the possibility of COVID-19. When diagnostic testing is negative, the possibility of a false negative result should be considered in the context of a patient's recent exposures and the presence of clinical signs and symptoms consistent with COVID-19. The possibility of a false negative result should especially be considered if the patient?s recent exposures or clinical presentation indicate that COVID-19 is likely, and diagnostic tests for other causes of illness (e.g., other respiratory illness) are negative. If COVID-19 is still suspected based on exposure history together with other clinical findings, re-testing should be considered by healthcare providers in consultation with public health authorities. Performed By: #### L AC, CBC, ADIFF, GFR, MORPH, CMP, ANEU, MG #### [address] [address] [facility] 02-28-2023 Albumin Level 2.8 G/dL Low 3.2-4.8 [facility] ([place] Comment on above: Performed By: #### L AC, CBC, ADIFF, GFR, MORPH, CMP, ANEU, MG #### [address] [address] BUN/Creatinine Ratio 18.9 ratio Normal 10.0-22.0 [facility] ([place]) Comment on above: Performed By: #### L AC, CBC, ADIFF, GFR, MORPH, CMP, ANEU, MG #### [address] [address] Calcium [Mass/Vol] 8.1 mg/dL Low 8.7-10.4 [facility] ([place]) Comment on above: Performed By: #### L AC, CBC, ADIFF, GFR, MORPH, CMP, ANEU, MG #### [address] [address] Chloride [Moles/Vol] 105 mmol/L Normal 98-110 [facility] ([place]) Comment on above: Performed By: #### L AC, CBC, ADIFF, GFR, MORPH, CMP, ANEU, MG #### [address] [address] CO2 [Moles/Vol] 24 mmol/L Normal 22-32 [facility] ([place]) Comment on above: Performed By: #### L AC, CBC, ADIFF, GFR, MORPH, CMP, ANEU, MG #### [address] [address] Creatinine [Mass/Vol] 1.27 mg/dL High 0.50-1.20 [facility] ([place]) Comment on above: Performed By: #### L AC, CBC, ADIFF, GFR, MORPH, CMP, ANEU, MG #### [address] [address] Electrolyte Balance 4.0 mEq/L Normal 4.0-15.0 [facility] ([place]) Comment on above: Performed By: #### L AC, CBC, ADIFF, GFR, MORPH, CMP, ANEU, MG #### [address] [address] Glucose [Mass/Vol] 126 mg/dL High 82-115 [facility] ([place]) Comment on above: Performed By: #### L AC, CBC, ADIFF, GFR, MORPH, CMP, ANEU, MG #### [address] [address] Phosphate [Mass/Vol] 3.1 mg/dL Normal 2.4-5.1 [facility] ([place]) Comment on above: Result Comment: No te - New Reference Range in effect 20 Performed By: #### L AC, CBC, ADIFF, GFR, MORPH, CMP, ANEU, MG #### [address] [address] Potassium [Moles/Vol] 3.9 mmol/L Normal 3.5-5.0 [facility] ([place]) Comment on above: Result Comment: Spec imen slightly hemolyzed. Performed By: #### L AC, CBC, ADIFF, GFR, MORPH, CMP, ANEU, MG #### [address] [address] Sodium [Moles/Vol] 133 mmol/L Low 136-145 [facility] ([place]) Comment on above: Performed By: #### L AC, CBC, ADIFF, GFR, MORPH, CMP, ANEU, MG #### [place] [id number] [address] [place] [address] Urea nitrogen [Mass/Vol] 24.0 mg/dL High 8.0-22.0 [facility] ([place]) Comment on above: Performed By: #### L AC, CBC, ADIFF, GFR, MORPH, CMP, ANEU, MG #### [address] [address] TROPHSon 02-28-2023 Troponin I High Sensitivity 6.3 ng/L Normal 0.0-51.4 [facility] ([place]) Comment on above: Performed By: #### T SH, LIPID, A1C #### [address] [address] [place] RENALon 02-28-2023 US RENAL ORIGINAL EXAMINATION: LIMITED RETROPERITONEAL ULTRASOUND02/28/2023 9:26 am COMPARISON: None HISTORY: ORDERING SYSTEM PROVIDED HISTORY: Reason for Exam: SAMINA worsening FINDINGS: Limited evaluation secondary to patient body habitus and respiratory motion. The urinary bladder was reportedly emptied prior to ultrasound exam. Postvoid volume of approximately 41 mL. The right and left kidneys measure 12.9 x 5.5 x 4.7 cm and 13.0 x 5.3 x 5.3 cm respectively. Portions of the left kidney are suboptimally visualized. Normal parenchymal thickness and echogenicity. No evidence of obstruction. IMPRESSION: Suboptimal evaluation as above. Within the limitations, no acute findings or evidence of obstruction. I have personally reviewed the images of this examination and agree with the resident's findings and interpretation. Interpreted by: Huan Castorena MD Preliminary Report By: Majo Plummer Electronically signed By Huan Castorena MD Dictated Date: 02/28/2023 10:28:17 AM Prelim Date: 02/28/2023 4:49:14 PM Sign Date: 02/28/2023 4:49:14 PM Ordering Provider: DONY Carrillo [facility] ([place]) XR CHEST 2 VIEWSon 3 XR CHEST 2 VIEWS ORIGINAL EXAMINATION: TWO XRAY VIEWS OF THE CHEST 02/28/2023 5:20 am COMPARISON: 02/27/2023. HISTORY: ORDERING SYSTEM PROVIDED HISTORY: Reason for Exam: PNA FINDINGS: Heart size is stable. No pneumothorax. No definite large effusion. Consolidation is noted in the right mid lung which has progressed from the prior exam. Increased hazy airspace disease at the right lung base. Mild hazy airspace disease at the left lung base. IMPRESSION: Worsened multifocal infiltrates greatest in the right mid lung. Interpreted by: Diana Bowling MD Preliminary Report By: Diana Bowling MD Electronically signed By Diana Bowling MD Dictated Date: 02/28/2023 7:08:52 AM Prelim Date: 02/28/2023 7:09:31 AM Sign Date: 02/28/2023 7:09:31 AM Ordering Provider: DONY Carrillo [facility] ([place]) .Auto Diffon 02-27-2023 Basophil, Absolute 0.1 10 3/mcL Normal 0.0-0.2 [facility] ([place]) Comment on above: Performed By: #### L AC, CBC, ADIFF, GFR, MORPH, CMP, ANEU, MG #### [address] [address] Basophils/100 WBC (Bld) 0.5 % Normal 0.0-2.5 [facility] ([place]) Comment on above: Performed By: #### L AC, CBC, ADIFF, GFR, MORPH, CMP, ANEU, MG #### [address] [address] Eosinophil, Absolute 0.0 10 3/mcL Normal 0.0-0.4 [facility] ([place]) Comment on above: Performed By: #### L AC, CBC, ADIFF, GFR, MORPH, CMP, ANEU, MG #### [address] [address] Eosinophils/100 WBC (Bld) 0.2 % Normal 0.0-7.0 [facility] ([place]) Comment on above: Performed By: #### L AC, CBC, ADIFF, GFR, MORPH, CMP, ANEU, MG #### [address] [address] Lymphocyte, Absolute 1.7 10 3/mcL Normal 0.8-3.9 [facility] ([place]) Comment on above: Performed By: #### L AC, CBC, ADIFF, GFR, MORPH, CMP, ANEU, MG #### [place] [id number] [place] [address] Lymphocytes/100 WBC (Bld) 7.6 % Low 10.0-50.0 [facility] ([place]) Comment on above: Performed By: #### L AC, CBC, ADIFF, GFR, MORPH, CMP, ANEU, MG #### [place] [id number] [place] [address] Monocyte, Absolute 1.5 10 3/mcL High 0.2-1.0 [facility] ([place]) Comment on above: Performed By: #### L AC, CBC, ADIFF, GFR, MORPH, CMP, ANEU, MG #### [place] [id number] [place] [address] Monocytes/100 WBC (Bld) 7.0 % Normal 1.7-13.0 [facility] ([place]) Comment on above: Performed By: #### L AC, CBC, ADIFF, GFR, MORPH, CMP, ANEU, MG #### [address] [address] Neutrophils/100 WBC (Bld) 84.7 % High 37.0-80.0 [facility] ([place]) Comment on above: Performed By: #### L AC, CBC, ADIFF, GFR, MORPH, CMP, ANEU, MG #### [address] [address] .GFRon 02-27-2023 GFR Non- 33 ml/min/1.73sqm Normal [facility] ([place]) Comment on above: Result Comment: GFR Population mean for , Non- Americans Ages 20-29 = 116 mL/min/1.73 sq.m. Ages 30-39 = 107 mL/min/1.73 sq.m. Ages 40-49 = 99 mL/min/1.73 sq.m. Ages 50-59 = 93 mL/min/1.73 sq.m. Ages 60-69 = 85 mL/min/1.73 sq.m. Ages 70+ = 75 mL/min/1.73 sq.m. Chronic Kidney Disease: Less than 60 mL/min/1.73 square meters End Stage Renal Disease: Less than 15 mL/min/1.73 square meters Performed By: #### L AC, CBC, ADIFF, GFR, MORPH, CMP, ANEU, MG #### [address] [address] GFR 41 ml/min/1.73sqm Normal [facility] ([place]) Comment on above: Result Comment: GFR Population mean for , Non- Americans Ages 20-29 = 116 mL/min/1.73 sq.m. Ages 30-39 = 107 mL/min/1.73 sq.m. Ages 40-49 = 99 mL/min/1.73 sq.m. Ages 50-59 = 93 mL/min/1.73 sq.m. Ages 60-69 = 85 mL/min/1.73 sq.m. Ages 70+ = 75 mL/min/1.73 sq.m. Chronic Kidney Disease: Less than 60 mL/min/1.73 square meters End Stage Renal Disease: Less than 15 mL/min/1.73 square meters Performed By: #### L AC, CBC, ADIFF, GFR, MORPH, CMP, ANEU, MG #### [address] [address] GFR 47 ml/min/1.73sqm Normal [facility] ([place]) Comment on above: Result Comment: GFR Population mean for , Non- Americans Ages 20-29 = 116 mL/min/1.73 sq.m. Ages 30-39 = 107 mL/min/1.73 sq.m. Ages 40-49 = 99 mL/min/1.73 sq.m. Ages 50-59 = 93 mL/min/1.73 sq.m. Ages 60-69 = 85 mL/min/1.73 sq.m. Ages 70+ = 75 mL/min/1.73 sq.m. Chronic Kidney Disease: Less than 60 mL/min/1.73 square meters End Stage Renal Disease: Less than 15 mL/min/1.73 square meters Performed By: #### L AC, CBC, ADIFF, GFR, MORPH, CMP, ANEU, MG #### [address] [address] GFR Non- 39 ml/min/1.73sqm Normal [facility] ([place]) Comment on above: Result Comment: GFR Population mean for , Non- Americans Ages 20-29 = 116 mL/min/1.73 sq.m. Ages 30-39 = 107 mL/min/1.73 sq.m. Ages 40-49 = 99 mL/min/1.73 sq.m. Ages 50-59 = 93 mL/min/1.73 sq.m. Ages 60-69 = 85 mL/min/1.73 sq.m. Ages 70+ = 75 mL/min/1.73 sq.m. Chronic Kidney Disease: Less than 60 mL/min/1.73 square meters End Stage Renal Disease: Less than 15 mL/min/1.73 square meters Performed By: #### L AC, CBC, ADIFF, GFR, MORPH, CMP, ANEU, MG #### [place] [address] .MDWon 02-27-2023 Monocyte Distribution Width Not performed Normal 0.00-20.00 [facility] ([place]) Comment on above: Result Comment: MDW testing unable to be performed on [id number] instrumentation. Performed By: #### L AC, CBC, ADIFF, GFR, MORPH, CMP, ANEU, MG #### [place] [address] .Manual Diffon 02-27-2023 Bands 2.0 % Normal 0.0-5.0 [facility] ([place]) Comment on above: Performed By: #### L AC, CBC, ADIFF, GFR, MORPH, CMP, ANEU, MG #### [place] [address] Basophil %, Manual 0.0 % Normal 0.0-2.5 [facility] ([place]) Comment on above: Performed By: #### L AC, CBC, ADIFF, GFR, MORPH, CMP, ANEU, MG #### [place] [address] Basophil, Abs Manual 0.0 10 3/mcL Normal 0.0-0.2 [facility] ([place]) Comment on above: Performed By: #### L AC, CBC, ADIFF, GFR, MORPH, CMP, ANEU, MG #### [address] [address] Eosinophil %, Manual 0.0 % Normal 0.0-7.0 [facility] ([place]) Comment on above: Performed By: #### L AC, CBC, ADIFF, GFR, MORPH, CMP, ANEU, MG #### [address] [address] Eosinophil, Abs Manual 0.0 10 3/mcL Normal 0.0-0.4 [facility] ([place]) Comment on above: Performed By: #### L AC, CBC, ADIFF, GFR, MORPH, CMP, ANEU, MG #### [address] [address] Lymphocyte %, Manual 10.0 % Normal 10.0-50.0 [facility] ([place]) Comment on above: Performed By: #### L AC, CBC, ADIFF, GFR, MORPH, CMP, ANEU, MG #### [address] [address] Lymphocyte, Abs Manual 2.2 10 3/mcL Normal 0.8-3.9 [facility] ([place]) Comment on above: Performed By: #### L AC, CBC, ADIFF, GFR, MORPH, CMP, ANEU, MG #### [address] [address] Monocyte %, Manual 4.0 % Normal 1.7-13.0 [facility] ([place]) Comment on above: Performed By: #### L AC, CBC, ADIFF, GFR, MORPH, CMP, ANEU, MG #### [address] [address] Monocyte, Abs Manual 0.9 10 3/mcL Normal 0.2-1.0 [facility] ([place]) Comment on above: Performed By: #### L AC, CBC, ADIFF, GFR, MORPH, CMP, ANEU, MG #### [address] [address] Neutrophil %, Manual 84.0 % High 37.0-80.0 [facility] ([place]) Comment on above: Performed By: #### L AC, CBC, ADIFF, GFR, MORPH, CMP, ANEU, MG #### [place] [address] Neutrophil, Abs Manual 18.8 10 3/mcL High 2.9-6.2 [facility] ([place]) Comment on above: Performed By: #### L AC, CBC, ADIFF, GFR, MORPH, CMP, ANEU, MG #### [place] [address] Nucleated RBC 0.0 /100 WBC Normal [facility] ([place]) Comment on above: Performed By: #### L AC, CBC, ADIFF, GFR, MORPH, CMP, ANEU, MG #### [place] [address] .Morphon 02-27-2023 Platelet Estimate Normal Normal [facility] ([place]) Comment on above: Performed By: #### L AC, CBC, ADIFF, GFR, MORPH, CMP, ANEU, MG #### [place] [address] .NEUABSon 02-27-2023 Neutrophil, Absolute 18.9 10 3/mcL High 2.9-6.2 [facility] ([place]) Comment on above: Performed By: #### L AC, CBC, ADIFF, GFR, MORPH, CMP, ANEU, MG #### [place] [address] .Urinalysis Microscopic (AO) on 02-27-2023 UA Bacteria 1+ /hpf Abnormal [facility] ([place]) Comment on above: Performed By: #### T SH, LIPID, A1C #### [place] [address] UA RBC None Seen Normal None Seen [facility] ([place]) Comment on above: Performed By: #### T SH, LIPID, A1C #### [place] [address] UA Squam Epithelial 0-5 Abnormal None Seen [facility] ([place]) Comment on above: Performed By: #### T SH, LIPID, A1C #### [place] [address] UA WBC 0-5 Abnormal None Seen [facility] ([place]) Comment on above: Performed By: #### T SH, LIPID, A1C #### [address] [address] BMPon 02-27-2023 BUN/Creatinine Ratio 12 ratio Normal 7-27 [facility] ([place]) Comment on above: Performed By: #### L AC, CBC, ADIFF, GFR, MORPH, CMP, ANEU, MG #### [address] [address] Calcium [Mass/Vol] 8.2 mg/dL Low 8.4-10.2 [facility] ([place]) Comment on above: Performed By: #### L AC, CBC, ADIFF, GFR, MORPH, CMP, ANEU, MG #### [address] [address] Chloride [Moles/Vol] 99 mmol/L Normal 98-107 [facility] ([place]) Comment on above: Performed By: #### L AC, CBC, ADIFF, GFR, MORPH, CMP, ANEU, MG #### [address] [address] CO2 [Moles/Vol] 31 mmol/L Normal 23-31 [facility] ([place]) Comment on above: Performed By: #### L AC, CBC, ADIFF, GFR, MORPH, CMP, ANEU, MG #### [address] [address] Creatinine [Mass/Vol] 1.39 mg/dL High 0.55-1.02 [facility] ([place]) Comment on above: Performed By: #### L AC, CBC, ADIFF, GFR, MORPH, CMP, ANEU, MG #### [address] [address] Electrolyte Balance 6.0 mEq/L Normal 4.0-15.0 [facility] ([place]) Comment on above: Performed By: #### L AC, CBC, ADIFF, GFR, MORPH, CMP, ANEU, MG #### [address] [address] Glucose [Mass/Vol] 109 mg/dL Normal 80-115 [facility] ([place]) Comment on above: Performed By: #### L AC, CBC, ADIFF, GFR, MORPH, CMP, ANEU, MG #### [place] [id number] Potassium [Moles/Vol] 4.2 mmol/L Normal 3.5-5.1 [facility] ([place]) Comment on above: Performed By: #### L AC, CBC, ADIFF, GFR, MORPH, CMP, ANEU, MG #### [place] [id number] Sodium [Moles/Vol] 136 mmol/L Normal 136-145 [facility] ([place]) Comment on above: Performed By: #### L AC, CBC, ADIFF, GFR, MORPH, CMP, ANEU, MG #### [place] [address] Urea nitrogen [Mass/Vol] 16 mg/dL Normal 7-18 [facility] ([place]) Comment on above: Performed By: #### L AC, CBC, ADIFF, GFR, MORPH, CMP, ANEU, MG #### [place] [id number] CBCon 02-27-2023 Erythrocyte distribution width (RBC) [Ratio] 14.9 % High 11.5-14.5 [facility] ([place]) Comment on above: Performed By: #### L AC, CBC, ADIFF, GFR, MORPH, CMP, ANEU, MG #### [place] [address] Hematocrit (Bld) [Volume fraction] 38.9 % Normal 37.0-47.0 [facility] ([place]) Comment on above: Performed By: #### L AC, CBC, ADIFF, GFR, MORPH, CMP, ANEU, MG #### [place] [id number] Hgb 13.1 G/dL Normal 12.0-16.0 [facility] ([place]) Comment on above: Performed By: #### L AC, CBC, ADIFF, GFR, MORPH, CMP, ANEU, MG #### [place] [id number] MCH (RBC) [Entitic mass] 30.5 pg Normal 27.0-31.2 [facility] ([place]) Comment on above: Performed By: #### L AC, CBC, ADIFF, GFR, MORPH, CMP, ANEU, MG #### [place] [address] MCHC 33.8 G/dL Normal 33.0-37.0 [facility] ([place]) Comment on above: Performed By: #### L AC, CBC, ADIFF, GFR, MORPH, CMP, ANEU, MG #### [place] [address] MCV (RBC) [Entitic vol] 90.4 fL Normal 80.0-94.0 [facility] ([place]) Comment on above: Performed By: #### L AC, CBC, ADIFF, GFR, MORPH, CMP, ANEU, MG #### [place] [address] Platelet 176 10 3/mcL Normal 130-400 [facility] ([place]) Comment on above: Performed By: #### L AC, CBC, ADIFF, GFR, MORPH, CMP, ANEU, MG #### [place] [address] Platelet mean volume (Bld) [Entitic vol] 8.8 fL Normal 7.4-10.4 [facility] ([place]) Comment on above: Performed By: #### L AC, CBC, ADIFF, GFR, MORPH, CMP, ANEU, MG #### [place] [address] RBC 4.31 10 6/mcL Normal 4.20-5.40 [facility] ([place]) Comment on above: Performed By: #### L AC, CBC, ADIFF, GFR, MORPH, CMP, ANEU, MG #### [place] [address] WBC 22.2 10 3/mcL High 4.6-10.8 [facility] ([place]) Comment on above: Performed By: #### L AC, CBC, ADIFF, GFR, MORPH, CMP, ANEU, MG #### [address] [address] Erythrocyte distribution width (RBC) [Ratio] 13.2 % Normal 11.5-14.5 [facility] ([place]) Comment on above: Performed By: #### L AC, CBC, ADIFF, GFR, MORPH, CMP, ANEU, MG #### [place] [address] Hematocrit (Bld) [Volume fraction] 42.3 % Normal 37.0-47.0 [facility] ([place]) Comment on above: Performed By: #### L AC, CBC, ADIFF, GFR, MORPH, CMP, ANEU, MG #### [place] [address] Hgb 14.4 G/dL Normal 12.0-16.0 [facility] ([place]) Comment on above: Performed By: #### L AC, CBC, ADIFF, GFR, MORPH, CMP, ANEU, MG #### [place] [address] MCH (RBC) [Entitic mass] 31.0 pg Normal 27.0-31.2 [facility] ([place]) Comment on above: Performed By: #### L AC, CBC, ADIFF, GFR, MORPH, CMP, ANEU, MG #### [place] [address] MCHC 34.1 G/dL Normal 33.0-37.0 [facility] ([place]) Comment on above: Performed By: #### L AC, CBC, ADIFF, GFR, MORPH, CMP, ANEU, MG #### [place] [address] MCV (RBC) [Entitic vol] 90.7 fL Normal 80.0-94.0 [facility] ([place]) Comment on above: Performed By: #### L AC, CBC, ADIFF, GFR, MORPH, CMP, ANEU, MG #### [place] [address] Platelet 186 10 3/mcL Normal 130-400 [facility] ([place]) Comment on above: Performed By: #### L AC, CBC, ADIFF, GFR, MORPH, CMP, ANEU, MG #### [place] [address] Platelet mean volume (Bld) [Entitic vol] 8.5 fL Normal 7.4-10.4 [facility] ([place]) Comment on above: Performed By: #### L AC, CBC, ADIFF, GFR, MORPH, CMP, ANEU, MG #### [place] [id number] RBC 4.66 10 6/mcL Normal 4.20-5.40 [facility] ([place]) Comment on above: Performed By: #### L AC, CBC, ADIFF, GFR, MORPH, CMP, ANEU, MG #### [place] [id number] WBC 22.3 10 3/mcL High 4.6-10.8 [facility] ([place]) Comment on above: Performed By: #### L AC, CBC, ADIFF, GFR, MORPH, CMP, ANEU, MG #### [place] [address] CMPon 02-27-2023 Albumin Level 3.0 G/dL Low 3.4-4.8 [facility] ([place]) Comment on above: Performed By: #### L AC, CBC, ADIFF, GFR, MORPH, CMP, ANEU, MG #### [place] [address] Albumin/Globulin [Mass ratio] 0.8 {ratio} Low 1.1-2.5 [facility] ([place]) Comment on above: Performed By: #### L AC, CBC, ADIFF, GFR, MORPH, CMP, ANEU, MG #### [place] [address] ALP [Catalytic activity/Vol] 86 U/L Normal 40-135 [facility] ([place]) Comment on above: Performed By: #### L AC, CBC, ADIFF, GFR, MORPH, CMP, ANEU, MG #### [place] [address] ALT [Catalytic activity/Vol] 25 U/L Normal 14-59 [facility] ([place]) Comment on above: Performed By: #### L AC, CBC, ADIFF, GFR, MORPH, CMP, ANEU, MG #### [address] [address] AST [Catalytic activity/Vol] 15 U/L Normal 10-40 [facility] ([place]) Comment on above: Performed By: #### L AC, CBC, ADIFF, GFR, MORPH, CMP, ANEU, MG #### [address] [address] Bili Total 0.7 mg/dL Normal 0.2-1.0 [facility] ([place]) Comment on above: Result Comment: Use of this assay is not recommended for patients undergoing treatment with eltrombopag due to the potential for falsely elevated results. Performed By: #### L AC, CBC, ADIFF, GFR, MORPH, CMP, ANEU, MG #### [address] [address] BUN/Creatinine Ratio 10 ratio Normal 7-27 [facility] ([place]) Comment on above: Performed By: #### L AC, CBC, ADIFF, GFR, MORPH, CMP, ANEU, MG #### [address] [address] Calcium [Mass/Vol] 7.9 mg/dL Low 8.4-10.2 [facility] ([place]) Comment on above: Performed By: #### L AC, CBC, ADIFF, GFR, MORPH, CMP, ANEU, MG #### [address] [address] Chloride [Moles/Vol] 100 mmol/L Normal 98-107 [facility] ([place]) Comment on above: Performed By: #### L AC, CBC, ADIFF, GFR, MORPH, CMP, ANEU, MG #### [address] [address] CO2 [Moles/Vol] 27 mmol/L Normal 23-31 [facility] ([place]) Comment on above: Performed By: #### L AC, CBC, ADIFF, GFR, MORPH, CMP, ANEU, MG #### [address] [address] Creatinine [Mass/Vol] 1.57 mg/dL High 0.55-1.02 [facility] ([place]) Comment on above: Performed By: #### L AC, CBC, ADIFF, GFR, MORPH, CMP, ANEU, MG #### [address] [address] Electrolyte Balance 9.0 mEq/L Normal 4.0-15.0 [facility] ([place]) Comment on above: Performed By: #### L AC, CBC, ADIFF, GFR, MORPH, CMP, ANEU, MG #### [address] [address] Globulin 3.6 G/dL Normal [facility] ([place]) Comment on above: Performed By: #### L AC, CBC, ADIFF, GFR, MORPH, CMP, ANEU, MG #### [address] [address] Glucose [Mass/Vol] 100 mg/dL Normal 80-115 [facility] ([place]) Comment on above: Performed By: #### L AC, CBC, ADIFF, GFR, MORPH, CMP, ANEU, MG #### [address] [address] Potassium [Moles/Vol] 4.0 mmol/L Normal 3.5-5.1 [facility] ([place]) Comment on above: Performed By: #### L AC, CBC, ADIFF, GFR, MORPH, CMP, ANEU, MG #### [address] [address] Sodium [Moles/Vol] 136 mmol/L Normal 136-145 [facility] ([place]) Comment on above: Performed By: #### L AC, CBC, ADIFF, GFR, MORPH, CMP, ANEU, MG #### [address] [address] Total Protein 6.6 G/dL Normal 6.4-8.2 [facility] ([place]) Comment on above: Performed By: #### L AC, CBC, ADIFF, GFR, MORPH, CMP, ANEU, MG #### [place] [id number] Urea nitrogen [Mass/Vol] 16 mg/dL Normal 7-18 [facility] ([place]) Comment on above: Performed By: #### L AC, CBC, ADIFF, GFR, MORPH, CMP, ANEU, MG #### [address] [address] [id number] 02-27-2023 SARS-CoV-2 (COVID-19) RNA TAMMY+probe Ql (Unsp spec) Negative Normal Negative [facility] ([place]) Comment on above: Performed By: #### T SH, LIPID, A1C #### [address] [address] SARS-CoV-2 (COVID-19) RNA TAMMY+probe Ql (Unsp spec) Normal [facility] ([place]) Comment on above: Result Comment: Nega tive results do not preclude SARS-CoV-2 infection and should not be used as the sole basis for patient management decisions. Negative results must be combined with clinical observations, patient history, and epidemiological information. There is a risk of false negative values resulting from improperly collected, transported, or handled specimens. There is a risk of false negative values due to the presence of sequence variants in the pathogen targets of the assay, procedural errors, amplification inhibitors in specimens, or inadequate numbers of organisms for amplification. SERAFIN SARS-CoV-2 Assay is a Real-Time reverse-transcriptase polymerase chain reaction (RT-PCR) based qualitative in vitro diagnostic test intended for the qualitative detection of nucleic acid from the SARS-CoV-2 in nasopharyngeal swab specimens collected from individuals suspected of COVID-19 by their healthcare provider. Testing is limited to laboratories certified under the Clinical Laboratory Improvement Amendments of 1988 (CLIA), 42 U.S.C. ?263a, to perform moderate and high complexity tests. COVID-19 Int Performed By: #### T SH, LIPID, A1C #### [address] [address] CRPon 02-27-2023 C-Reactive Protein 11.3 mg/dL High 0.0-0.3 [facility] ([place] Comment on above: Performed By: #### L AC, CBC, ADIFF, GFR, MORPH, CMP, ANEU, MG #### [address] [address] DIMERon 02-27-2023 D-Dimer 408 ng/mL D-DU High 0-230 [facility] ([place]) Comment on above: Result Comment: Resu lts reported in D-DU ng/mL. Positive for D-dimer. A positive D-Dimer may occur in the following: DVT, PE, DIC, Trauma, Cancer, Sepsis, , Rheumatoid arthritis, Myocardial infarction and Cirrhosis. The presence of Rheumatoid Factor and HAMA (human mouse antibody) produces an overestimation of test results. The result of the D-Dimer test should be evaluated in the context of all the clinical and laboratory data available. In those instances where the laboratory result does not agree with the clinical evaluation, additional tests should be performed accordingly. If the D-Dimer result is used to exclude DVT or PE, the recommended cutoff value is less than 230 ng/mL. The D-Dimer result should not be used alone to rule in DVT/PE, but should be used in conjunction with a clinical pretest probability (PTP)assessment model to exclude venous thromboembolism (VTE) in outpatients suspected of deep venous thrombosis (DVT) and pulmonary embolism (PE). Performed By: #### L AC, CBC, ADIFF, GFR, MORPH, CMP, ANEU, MG #### [place] [address] FLURSVon 02-27-2023 Flu A PCR (AO) Negative Normal Negative [facility] ([place]) Comment on above: Result Comment: Posi tive Results: Positive Flu A/B or RSV for by PCR. Positive test results do not rule out bacterial infection or co-infection with other pathogens. Test results should be interpreted in conjunction with other laboratory and clinical data. Negative Results: Negative for by PCR. Negative test results do not preclude influenza virus or RSV infection and should not be used as the sole basis for diagnosis, treatment, or other management decisions. There is a risk of false negative RSV results when at low concentration and in the presence of co-infection with high concentration of influenza A. Invalid Results: An Invalid result (INV) was obtained. The test was repeated with similar results. REPEAT COLLECTION AND TESTING IS RECOMMENDED. The Serafin Flu A/B & RSV Assay is a real-time polymerase chain reaction (PCR) based qualitative in vitro diagnostic test for the direct detection and differentiation of influenza A virus, influenza B virus, and respiratory syncytial virus (RSV) nucleic acid in nasopharyngeal swab ([employer]MENT [employer]ER) specimens from patients with signs and symptoms of respiratory infection in conjunction with clinical and laboratory findings. The test is intended for use as an aid in the differential diagnosis of influenza A virus, influenza B virus, and RSV in humans and is not intended to detect influenza C. Performed By: #### T MELANIE LIPID, A1C #### [place] [id number] Flu B PCR (AO) Negative Normal Negative [facility] ([place]) Comment on above: Result Comment: Posi tive Results: Positive Flu A/B or RSV for by PCR. Positive test results do not rule out bacterial infection or co-infection with other pathogens. Test results should be interpreted in conjunction with other laboratory and clinical data. Negative Results: Negative for by PCR. Negative test results do not preclude influenza virus or RSV infection and should not be used as the sole basis for diagnosis, treatment, or other management decisions. There is a risk of false negative RSV results when at low concentration and in the presence of co-infection with high concentration of influenza A. Invalid Results: An Invalid result (INV) was obtained. The test was repeated with similar results. REPEAT COLLECTION AND TESTING IS RECOMMENDED. The [employer] Flu A/B & RSV Assay is a real-time polymerase chain reaction (PCR) based qualitative in vitro diagnostic test for the direct detection and differentiation of influenza A virus, influenza B virus, and respiratory syncytial virus (RSV) nucleic acid in nasopharyngeal swab (CHEMICAL EQUIPMENT REPAIRER) specimens from patients with signs and symptoms of respiratory infection in conjunction with clinical and laboratory findings. The test is intended for use as an aid in the differential diagnosis of influenza A virus, influenza B virus, and RSV in humans and is not intended to detect influenza C. Performed By: #### T MELANIE, LIPID, A1C #### [address] [address] RSV PCR (AO) Negative Normal Negative [facility] ([place]) Comment on above: Result Comment: Posi tive Results: Positive Flu A/B or RSV for by PCR. Positive test results do not rule out bacterial infection or co-infection with other pathogens. Test results should be interpreted in conjunction with other laboratory and clinical data. Negative Results: Negative for by PCR. Negative test results do not preclude influenza virus or RSV infection and should not be used as the sole basis for diagnosis, treatment, or other management decisions. There is a risk of false negative RSV results when at low concentration and in the presence of co-infection with high concentration of influenza A. Invalid Results: An Invalid result (INV) was obtained. The test was repeated with similar results. REPEAT COLLECTION AND TESTING IS RECOMMENDED. The [employer] Flu A/B & RSV Assay is a real-time polymerase chain reaction (PCR) based qualitative in vitro diagnostic test for the direct detection and differentiation of influenza A virus, influenza B virus, and respiratory syncytial virus (RSV) nucleic acid in nasopharyngeal swab (CHEMICAL EQUIPMENT REPAIRER) specimens from patients with signs and symptoms of respiratory infection in conjunction with clinical and laboratory findings. The test is intended for use as an aid in the differential diagnosis of influenza A virus, influenza B virus, and RSV in humans and is not intended to detect influenza C. Performed By: #### T SH, LIPID, A1C #### [place] [address] LABORATORYOrdered By: Sofia Gonzales on 02-27-2023 Appearance (U) Slightly Cloudy *ABN* (02/27/23 5:34 AM) Invalid Interpretation Code Clear AO Auto Urine SS Bacteria LM.HPF (Urine sed) [#/Area] 1 /[HPF] Invalid Interpretation Code AO Auto Urine SS Bilirubin Ql (U) Moderate *ABN* (02/27/23 5:34 AM) Invalid Interpretation Code Negative AO Auto Urine SS Color (U) Yellow (02/27/23 5:34 AM) Invalid Interpretation Code AO Auto Urine SS Glucose Test strip (U) [Mass/Vol] Negative Invalid Interpretation Code Negative AO Auto Urine SS Hemoglobin Auto test strip (U) [Mass/Vol] Negative (02/27/23 5:34 AM) Invalid Interpretation Code Negative AO Auto Urine SS Ketones Ql (U) 15 mg/dL Invalid Interpretation Code Negative AO Auto Urine SS UA Leuk Est Negative (02/27/23 5:34 AM) Invalid Interpretation Code Negative AO Auto Urine SS UA Nitrite Positive *ABN* (02/27/23 5:34 AM) Invalid Interpretation Code Negative AO Auto Urine SS UA pH 5.5 (02/27/23 5:34 AM) Invalid Interpretation Code 5.0 - 8.0 AO Auto Urine SS UA Protein 100 mg/dL Invalid Interpretation Code Negative AO Auto Urine SS UA RBC None Seen /HPF Invalid Interpretation Code None Seen AO Auto Urine SS UA Spec Grav >=1.030 *ABN* (02/27/23 5:34 AM) Invalid Interpretation Code 1.015-1.02 5 AO Auto Urine SS UA Specimen Type Not Given (02/27/23 5:34 AM) Invalid Interpretation Code AO Auto Urine SS UA Squam Epithelial 0-5 /HPF Invalid Interpretation Code None Seen AO Auto Urine SS UA Urobilinogen 1.0 E.U./dL Invalid Interpretation Code 0.2-1.0 AO Auto Urine SS WBC LM.HPF (Urine sed) [#/Area] 0-5 /HPF Invalid Interpretation Code None Seen AO Auto Urine SS Fibrin D-dimer DDU (PPP) [Mass/Vol] 408 ng/mL D-DU Invalid Interpretation Code 0 - 230 ng/mL D-DU AO [facility] SS Comment on above: Result Comment: Resu lts reported in D-DU ng/mL. Positive for D-dimer. A positive D-Dimer may occur in the following: DVT, PE, DIC, Trauma, Cancer, Sepsis, , Rheumatoid arthritis, Myocardial infarction and Cirrhosis. The presence of Rheumatoid Factor and HAMA (human mouse antibody) produces an overestimation of test results. Interpretive Data: T he result of the D-Dimer test should be evaluated in the context of all the clinical and laboratory data available. In those instances where the laboratory result does not agree with the clinical evaluation, additional tests should be performed accordingly. If the D-Dimer result is used to exclude DVT or PE, the recommended cutoff value is less than 230 ng/mL. The D-Dimer result should not be used alone to rule in DVT/PE, but should be used in conjunction with a clinical pretest probability (PTP)assessment model to exclude venous thromboembolism (VTE) in outpatients suspected of deep venous thrombosis (DVT) and pulmonary embolism (PE). FLUAV RNA TAMMY+probe Ql (Upper resp) Negative 17 (02/27/23 12:56 AM) Invalid Interpretation Code Negative AO Auto Urine SS Comment on above: Interpretive Data: P ositive Results: Positive Flu A/B or RSV for by PCR. Positive test results do not rule out bacterial infection or co-infection with other pathogens. Test results should be interpreted in conjunction with other laboratory and clinical data. Negative Results: Negative for by PCR. Negative test results do not preclude influenza virus or RSV infection and should not be used as the sole basis for diagnosis, treatment, or other management decisions. There is a risk of false negative RSV results when at low concentration and in the presence of co-infection with high concentration of influenza A. Invalid Results: An Invalid result (INV) was obtained. The test was repeated with similar results. REPEAT COLLECTION AND TESTING IS RECOMMENDED. The [employer] Flu A/B & RSV Assay is a real-time polymerase chain reaction (PCR) based qualitative in vitro diagnostic test for the direct detection and differentiation of influenza A virus, influenza B virus, and respiratory syncytial virus (RSV) nucleic acid in nasopharyngeal swab (CHEMICAL EQUIPMENT REPAIRER) specimens from patients with signs and symptoms of respiratory infection in conjunction with clinical and laboratory findings. The test is intended for use as an aid in the differential diagnosis of influenza A virus, influenza B virus, and RSV in humans and is not intended to detect influenza C. FLUBV RNA TAMMY+probe Ql (Upper resp) Negative 18 (02/27/23 12:56 AM) Invalid Interpretation Code Negative AO Auto Urine SS Comment on above: Interpretive Data: P ositive Results: Positive Flu A/B or RSV for by PCR. Positive test results do not rule out bacterial infection or co-infection with other pathogens. Test results should be interpreted in conjunction with other laboratory and clinical data. Negative Results: Negative for by PCR. Negative test results do not preclude influenza virus or RSV infection and should not be used as the sole basis for diagnosis, treatment, or other management decisions. There is a risk of false negative RSV results when at low concentration and in the presence of co-infection with high concentration of influenza A. Invalid Results: An Invalid result (INV) was obtained. The test was repeated with similar results. REPEAT COLLECTION AND TESTING IS RECOMMENDED. The [employer] Flu A/B & RSV Assay is a real-time polymerase chain reaction (PCR) based qualitative in vitro diagnostic test for the direct detection and differentiation of influenza A virus, influenza B virus, and respiratory syncytial virus (RSV) nucleic acid in nasopharyngeal swab (CHEMICAL EQUIPMENT REPAIRER) specimens from patients with signs and symptoms of respiratory infection in conjunction with clinical and laboratory findings. The test is intended for use as an aid in the differential diagnosis of influenza A virus, influenza B virus, and RSV in humans and is not intended to detect influenza C. Monocyte distribution width Auto (Bld) [Entitic vol] Not Performed 2 (02/27/23 12:56 AM) Invalid Interpretation Code 0.00 - 20.00 AO Hematology S Comment on above: Result Comment: MDW testing unable to be performed on [id number] instrumentation. RSV RNA TAMMY+probe Ql (Upper resp) Negative 19 (02/27/23 12:56 AM) Invalid Interpretation Code Negative AO Auto Urine SS Comment on above: Interpretive Data: P ositive Results: Positive Flu A/B or RSV for by PCR. Positive test results do not rule out bacterial infection or co-infection with other pathogens. Test results should be interpreted in conjunction with other laboratory and clinical data. Negative Results: Negative for by PCR. Negative test results do not preclude influenza virus or RSV infection and should not be used as the sole basis for diagnosis, treatment, or other management decisions. There is a risk of false negative RSV results when at low concentration and in the presence of co-infection with high concentration of influenza A. Invalid Results: An Invalid result (INV) was obtained. The test was repeated with similar results. REPEAT COLLECTION AND TESTING IS RECOMMENDED. The [employer] Flu A/B & RSV Assay is a real-time polymerase chain reaction (PCR) based qualitative in vitro diagnostic test for the direct detection and differentiation of influenza A virus, influenza B virus, and respiratory syncytial virus (RSV) nucleic acid in nasopharyngeal swab (CHEMICAL EQUIPMENT REPAIRER) specimens from patients with signs and symptoms of respiratory infection in conjunction with clinical and laboratory findings. The test is intended for use as an aid in the differential diagnosis of influenza A virus, influenza B virus, and RSV in humans and is not intended to detect influenza C. SARS-CoV-2 (COVID-19) RNA TAMMY+probe Ql (Resp) Negative results do not preclude SARS-CoV-2 infection and should not be used as the sole basis for patient management decisions. Negative results must be combined with clinical observations, patient history, and epidemiological information.There is a risk of false negative values resulting from improperly collected, transported, or handled specimens.There is a risk of false negative values due to the presence of sequence variants in the pathogen targets of the assay, procedural errors, amplification inhibitors in specimens, or inadequate numbers of organisms for amplification.[employer] SARS-CoV-2 Assay is a Real-Time reverse-transcriptase polymerase chain reaction (RT-PCR) based qualitative in vitro diagnostic test intended for the qualitative detection of nucleic acid from the SARS-CoV-2 in nasopharyngeal swab specimens collected from individuals suspected of COVID-19 by their healthcare provider. Testing is limited to laboratories certified under the Clinical Laboratory Improvement Amendments of 1988 (CLIA), 42 U.S.C. 263a, to perform moderate and high complexity tests. Invalid Interpretation Code AO Auto Urine SS LABORATORYOrdered By: SYSTEM SYSTEM on 02-27-2023 Albumin BCP dye [Mass/Vol] 3.0 G/dL Invalid Interpretation Code 3.4 - 4.8 G/dL AO ADM SS Albumin/Globulin [Mass ratio] 0.8 {ratio} Invalid Interpretation Code 1.1 - 2.5 ratio AO ADM SS ALP [Catalytic activity/Vol] 86 U/L Invalid Interpretation Code 40 - 135 U/L AO ADM SS ALT With P-5'-P [Catalytic activity/Vol] 25 U/L Invalid Interpretation Code 14 - 59 U/L AO ADM SS AST With P-5'-P [Catalytic activity/Vol] 15 U/L Invalid Interpretation Code 10 - 40 U/L AO ADM SS Basophil, Absolute 0.1 103/mcL Invalid Interpretation Code 0.0 - 0.2 10^3/mcL AO Workflow SS Basophils/100 WBC (Bld) 0.5 % Invalid Interpretation Code 0.0 - 2.5 % AO Workflow SS Bilirubin [Mass/Vol] 0.7 mg/dL Invalid Interpretation Code 0.2 - 1.0 mg/dL AO ADM SS Comment on above: Interpretive Data: U se of this assay is not recommended for patients undergoing treatment with eltrombopag due to the potential for falsely elevated results. Calcium [Mass/Vol] 7.9 mg/dL Invalid Interpretation Code 8.4 - 10.2 mg/dL AO ADM SS Chloride [Moles/Vol] 100 mmol/L Invalid Interpretation Code 98 - 107 mmol/L AO ADM SS CO2 [Moles/Vol] 27 mmol/L Invalid Interpretation Code 23 - 31 mmol/L AO ADM SS Creatinine [Mass/Vol] 1.57 mg/dL Invalid Interpretation Code 0.55 - 1.02 mg/dL AO ADM SS CRP [Mass/Vol] 11.3 mg/dL Invalid Interpretation Code 0.0 - 0.3 mg/dL AO ADM SS Electrolyte Balance 9.0 mEq/L Invalid Interpretation Code 4.0 - 15.0 mEq/L AO ADM SS Eosinophil, Absolute 0.0 103/mcL Invalid Interpretation Code 0.0 - 0.4 10^3/mcL AO Workflow SS Eosinophils/100 WBC (Bld) 0.2 % Invalid Interpretation Code 0.0 - 7.0 % AO Workflow SS Erythrocyte distribution width (RBC) [Ratio] 14.9 % Invalid Interpretation Code 11.5 - 14.5 % AO Workflow SS GFR/1.73 sq M.predicted among blacks MDRD (S/P/Bld) [Vol rate/Area] 41 ml/min/1.73sqm Invalid Interpretation Code AO Chemistry S Comment on above: Interpretive Data: GFR Population mean for , Non- Americans Ages 20-29 = 116 mL/min/1.73 sq.m. Ages 30-39 = 107 mL/min/1.73 sq.m. Ages 40-49 = 99 mL/min/1.73 sq.m. Ages 50-59 = 93 mL/min/1.73 sq.m. Ages 60-69 = 85 mL/min/1.73 sq.m. Ages 70+ = 75 mL/min/1.73 sq.m. Chronic Kidney Disease: Less than 60 mL/min/1.73 square meters End Stage Renal Disease: Less than 15 mL/min/1.73 square meters GFR/1.73 sq M.predicted among non-blacks MDRD (S/P/Bld) [Vol rate/Area] 33 ml/min/1.73sqm Invalid Interpretation Code AO Chemistry S Comment on above: Interpretive Data: GFR Population mean for , Non- Americans Ages 20-29 = 116 mL/min/1.73 sq.m. Ages 30-39 = 107 mL/min/1.73 sq.m. Ages 40-49 = 99 mL/min/1.73 sq.m. Ages 50-59 = 93 mL/min/1.73 sq.m. Ages 60-69 = 85 mL/min/1.73 sq.m. Ages 70+ = 75 mL/min/1.73 sq.m. Chronic Kidney Disease: Less than 60 mL/min/1.73 square meters End Stage Renal Disease: Less than 15 mL/min/1.73 square meters Globulin 3.6 G/dL Invalid Interpretation Code AO ADM SS Glucose [Mass/Vol] 100 mg/dL Invalid Interpretation Code 80 - 115 mg/dL AO ADM SS Hematocrit (Bld) [Volume fraction] 38.9 % Invalid Interpretation Code 37.0 - 47.0 % AO Workflow SS Hemoglobin (Bld) [Mass/Vol] 13.1 G/dL Invalid Interpretation Code 12.0 - 16.0 G/dL AO Workflow SS Lymphocyte, Absolute 1.7 103/mcL Invalid Interpretation Code 0.8 - 3.9 10^3/mcL AO Workflow SS Lymphocytes/100 WBC (Bld) 7.6 % Invalid Interpretation Code 10.0 - 50.0 % AO Workflow SS Magnesium [Mass/Vol] 1.2 mg/dL Invalid Interpretation Code 1.8 - 2.4 mg/dL AO ADM SS MCH (RBC) [Entitic mass] 30.5 pg Invalid Interpretation Code 27.0 - 31.2 pg AO Workflow SS MCHC 33.8 G/dL Invalid Interpretation Code 33.0 - 37.0 G/dL AO Workflow SS MCV (RBC) [Entitic vol] 90.4 fL Invalid Interpretation Code 80.0 - 94.0 fL AO Workflow SS Monocyte, Absolute 1.5 103/mcL Invalid Interpretation Code 0.2 - 1.0 10^3/mcL AO Workflow SS Monocytes/100 WBC (Bld) 7.0 % Invalid Interpretation Code 1.7 - 13.0 % AO Workflow SS Neutrophil, Absolute 18.9 103/mcL Invalid Interpretation Code 2.9 - 6.2 10^3/mcL AO Workflow SS Neutrophils/100 WBC (Bld) 84.7 % Invalid Interpretation Code 37.0 - 80.0 % AO Workflow SS Platelet mean volume (Bld) [Entitic vol] 8.8 fL Invalid Interpretation Code 7.4 - 10.4 fL AO Workflow SS Platelets (Bld) [#/Vol] 176 103/mcL Invalid Interpretation Code 130 - 400 10^3/mcL AO Workflow SS Potassium [Moles/Vol] 4.0 mmol/L Invalid Interpretation Code 3.5 - 5.1 mmol/L AO ADM SS Protein [Mass/Vol] 6.6 G/dL Invalid Interpretation Code 6.4 - 8.2 G/dL AO ADM SS RBC (Bld) [#/Vol] 4.31 106/mcL Invalid Interpretation Code 4.20 - 5.40 10^6/mcL AO Workflow SS Sodium [Moles/Vol] 136 mmol/L Invalid Interpretation Code 136 - 145 mmol/L AO ADM SS TSH Qn 1.43 m[IU]/L Invalid Interpretation Code 0.36 - 3.74 mcIU/mL AO ADM SS Urea nitrogen [Mass/Vol] 16 mg/dL Invalid Interpretation Code 7 - 18 mg/dL AO ADM SS Urea nitrogen/Creatinine [Mass ratio] 10 ratio Invalid Interpretation Code 7 - 27 ratio AO ADM SS WBC (Bld) [#/Vol] 22.2 103/mcL Invalid Interpretation Code 4.6 - 10.8 10^3/mcL AO Workflow SS Lactate [Moles/Vol] 1.8 mmol/L Invalid Interpretation Code 0.4 - 2.0 mmol/L AO ADM SS Bands 2.0 1 Invalid Interpretation Code 0.0 - 5.0 % AO Workflow SS Basophil %, Manual 0.0 1 Invalid Interpretation Code 0.0 - 2.5 % AO Workflow SS Basophil, Abs Manual 0.0 103/mcL Invalid Interpretation Code 0.0 - 0.2 10^3/mcL AO Workflow SS Eosinophil %, Manual 0.0 1 Invalid Interpretation Code 0.0 - 7.0 % AO Workflow SS Eosinophils (Bld) [#/Vol] 0.0 103/mcL Invalid Interpretation Code 0.0 - 0.4 10^3/mcL AO Workflow SS Lymphocyte %, Manual 10.0 1 Invalid Interpretation Code 10.0 - 50.0 % AO Workflow SS Lymphocyte, Abs Manual 2.2 103/mcL Invalid Interpretation Code 0.8 - 3.9 10^3/mcL AO Workflow SS Monocyte %, Manual 4.0 1 Invalid Interpretation Code 1.7 - 13.0 % AO Workflow SS Monocyte, Abs Manual 0.9 103/mcL Invalid Interpretation Code 0.2 - 1.0 10^3/mcL AO Workflow SS Neutrophil %, Manual 84.0 1 Invalid Interpretation Code 37.0 - 80.0 % AO Workflow SS Neutrophil, Abs Manual 18.8 103/mcL Invalid Interpretation Code 2.9 - 6.2 10^3/mcL AO Workflow SS Nucleated RBC 0.0 /100 WBC Invalid Interpretation Code AO Workflow SS Platelet Estimate Normal *NA* (02/27/23 12:56 AM) Invalid Interpretation Code AO Workflow SS Troponin I.cardiac DL <= 0.01 ng/mL [Mass/Vol] 7.2 ng/L Invalid Interpretation Code 0.0 - 51.4 ng/L AO ADM SS LABORATORYOrdered By: Darien Stratton on 02-27-2023 M. pneumoniae IgM IA Ql (S) Negative 10 (02/27/23 5:19 AM) Invalid Interpretation Code Rojelio Viro/Sero SS Comment on above: Interpretive Data: I NTERPRETATION OF MYCOPLASMA IgM: Negative: IgM to M. pneumoniae Absent, or at levels below the assay limit of detection. Positive: IgM to M. pneumoniae Present. Invalid: Test results are invalid due to invalid internal control. Assay was performed in duplicate. Repeat testing is suggested if clinically indicated. LACon 02-27-2023 Lactic Acid Lvl 1.8 mmol/L Normal 0.4-2.0 [facility] ([place]) Comment on above: Performed By: #### T SH, LIPID, A1C #### [address] [address] MGon 02-27-2023 Magnesium [Mass/Vol] 1.2 mg/dL Low 1.8-2.4 [facility] ([place]) Comment on above: Performed By: #### L AC, CBC, ADIFF, GFR, MORPH, CMP, ANEU, MG #### [address] [address] MYCOon 02-27-2023 Mycoplasma IgM Negative Normal [facility] ([place]) Comment on above: Result Comment: INTE RPRETATION OF MYCOPLASMA IgM: Negative: IgM to M. pneumoniae Absent, or at levels below the assay limit of detection. Positive: IgM to M. pneumoniae Present. Invalid: Test results are invalid due to invalid internal control. Assay was performed in duplicate. Repeat testing is suggested if clinically indicated. Performed By: #### L AC, CBC, ADIFF, GFR, MORPH, CMP, ANEU, MG #### [address] [address] No Panel Informationon 02-27 Culture Urine 10,000 - 50,000 cfu/ ml Multiple bacterial morphotypes present. Probable Contamination. Suggest recollection if clinically indicated. [facility] Work Phone: Legionella Urine Ag Presumptive negative for L. pneumophila serogroup 1 antigen in urine, suggesting no recent or current infection. Legionnaire's disease cannot be ruled out since other serogroups and species may also cause disease. [facility] Work Phone: Streptococcus Pneumoniae Urine Antig Presumptive negative for pneumococcal pneumonia, suggesting no current or recent pneumococcal infection. Infection due to Strep pneumoniae cannot be ruled out since the antigen present in the sample may be below the detection limit of the test. [facility] Work Phone: Comment on above: This test has not be en evaluated on patients taking antibiotics for greater than 24 hours or on patients who have recently completed an antibiotic regimen. The accuracy of this test has not been proven in young children. Microscopic examination of blood, culture Culture has been received in lab and is no growth to date. Routine cultures are held for 5 days. [facility] Work Phone: TROPHSon 02-27-2023 Troponin I High Sensitivity 7.2 ng/L Normal 0.0-51.4 [facility] ([place]) Comment on above: Performed By: #### L AC, CBC, ADIFF, GFR, MORPH, CMP, ANEU, MG #### [place] [id number] TSHon 02-27-2023 TSH Qn 1.43 m[IU]/L Normal 0.36-3.74 [facility] ([place]) Comment on above: Performed By: #### L AC, CBC, ADIFF, GFR, MORPH, CMP, ANEU, MG #### [address] [address] UAon 02-27-2023 Color (U) Yellow Normal [facility] ([place]) Comment on above: Performed By: #### T SH, LIPID, A1C #### [place] [id number] Glucose (U) [Mass/Vol] Negative Normal Negative [facility] ([place]) Comment on above: Performed By: #### T SH, LIPID, A1C #### [place] [id number] Ketones Ql (U) 15 mg/dL Abnormal Negative [facility] ([place] Comment on above: Performed By: #### T SH, LIPID, A1C #### [place] [address] UA Appear Slightly Cloudy Abnormal Clear [facility] ([place]) Comment on above: Performed By: #### T SH, LIPID, A1C #### [address] [address] UA Bili Moderate Abnormal Negative [facility] ([place] Comment on above: Performed By: #### T SH, LIPID, A1C #### [address] [address] UA Blood Negative Normal Negative [facility] ([place]) Comment on above: Performed By: #### T SH, LIPID, A1C #### [place] [address] UA Leuk Est Negative Normal Negative [facility] ([place] Comment on above: Performed By: #### T SH, LIPID, A1C #### [address] [address] UA Nitrite Positive Abnormal Negative [facility] ([place]) Comment on above: Performed By: #### T SH, LIPID, A1C #### [place] [address] UA pH 5.5 Normal 5.0 - 8.0 [facility] ([place]) Comment on above: Performed By: #### T SH, LIPID, A1C #### [place] [address] UA Protein 100 mg/dL Abnormal Negative [facility] ([place] Comment on above: Performed By: #### T SH, LIPID, A1C #### [address] [address] UA Spec Grav >=1.030 Abnormal 1.015-1.02 5 [facility] ([place]) Comment on above: Performed By: #### T SH, LIPID, A1C #### [place] [address] UA Specimen Type Not Given Normal [facility] ([place]) Comment on above: Performed By: #### T SH, LIPID, A1C #### [place] [address] UA Urobilinogen 1.0 E.U./dL Normal 0.2-1.0 [facility] ([place]) Comment on above: Performed By: #### T SH, LIPID, A1C #### [facility] [address] [place] [id number] XR CHEST 1 VIEWon 02-27-2023 XR CHEST 1 VIEW ORIGINAL EXAMINATION: ONE XRAY VIEW OF THE CHEST 02/27/2023 1:30 am COMPARISON: Chest x-ray 05/26/2022 HISTORY: ORDERING SYSTEM PROVIDED HISTORY: Reason for Exam: Chest pain, low oxygen FINDINGS: Cardiomediastinal silhouette is stable. There is a round airspace opacity in the right upper lobe. Left midlung atelectasis. No large pleural effusion or pneumothorax. No vascular congestion. No acute osseous abnormality. IMPRESSION: Right upper lobe airspace opacity, most likely pneumonia. Short-term interval chest x-ray follow-up is recommended to determine resolution and exclude an underlying lesion. This is a preliminary report created by a resident Interpreted by: Diana Bowling MD Preliminary Report By: Enrique Garcia Electronically signed By Diana Bowling MD Dictated Date: 02/27/2023 1:34:31 AM Prelim Date: 02/27/2023 1:38:03 AM Sign Date: 02/27/2023 2:21:34 AM Ordering Provider: EUSEBIO RUST [facility] ([place]) XR ANKLE AND FOOT 6 VIEWS [facility] 10-12-2022 XR ANKLE AND FOOT 6 VIEWS RIGHT ORIGINAL EXAMINATION: XRAY VIEWS OF THE EXTREMITY 10/12/2022 2:10 am COMPARISON: None. HISTORY: ORDERING SYSTEM PROVIDED HISTORY: Reason for Exam: pain FINDINGS: Indeterminate osseous fragment over the talus and a 2nd small osseous fragment over the anterior aspect of the navicular bone could represent small avulsion fractures. No dislocation. Mild soft tissue swelling is noted over the lateral aspect of the ankle. IMPRESSION: Possible small avulsion fractures of the anterior talus and navicular bones. Interpreted by: Diana Bowling MD Preliminary Report By: Diana Bowlign MD Electronically signed By Diana Bowling MD Dictated Date: 10/12/2022 2:40:57 AM Prelim Date: 10/12/2022 2:45:34 AM Sign Date: 10/12/2022 2:45:34 AM Ordering Provider: MALATHI SINGER [facility] SCREENINGon 10-10-2022 [facility] Basic metabolic 2000 panelon 09-06-2022 Anion gap [Moles/Vol] 8 mmol/L Low 9-18 [facility] Comment on above: Order Comment: Speci men Type: BLOOD SPECIMENOrdering Facility: [facility] Address: [address] [place] [address] Performed By: #### 2 4321-2 ####DICK LABORATORYCLIA [id number] [place] [address] [place] Calcium [Mass/Vol] 8.8 mg/dL Normal 8.5-10.2 [facility] Comment on above: Order Comment: Speci men Type: BLOOD SPECIMENOrdering Facility: [facility] Address: [address] [place] [address] Performed By: #### 2 4321-2 ####DICK LABORATORYCLIA [id number] [address] OF [facility] Chloride [Moles/Vol] 101 mmol/L Normal 97-105 [facility] Comment on above: Order Comment: Speci men Type: BLOOD SPECIMENOrdering Facility: [facility] Address: [address] [place] [address] Performed By: #### 2 4321-2 ####DICK LABORATORYCLIA [id number] [address] STATES OF [facility] CO2 [Moles/Vol] 26 mmol/L Normal 22-30 [facility] Comment on above: Order Comment: Speci men Type: BLOOD SPECIMENOrdering Facility: [facility] Address: [address] [place] [address] Performed By: #### 2 4321-2 ####DICK LABORATORYCLIA [id number] [place] [address] [place] Creatinine [Mass/Vol] 0.84 mg/dL Normal 0.58-0.96 [facility] Comment on above: Order Comment: Speci men Type: BLOOD SPECIMENOrdering Facility: [facility] Address: [address] [place] [address] Performed By: #### 2 4321-2 ####DICK LABORATORYCLIA [id number] [place] [address] [place] ESTIMATED GLOMERULAR FILTRATION RATE 80 mL/min/1.73m??? Normal >=60 [facility] Comment on above: Order Comment: Pau orantes Type: BLOOD SPECIMENOrdering Facility: [facility] Address: [address] [place] [id number] Result Comment: Alem mated Glomerular Filtration Rate (eGFR) is calculated using the 2020 CKD-EPI creatinine equation. This equation utilizes serum creatinine, sex, and age as parameters. The creatinine assay has traceable calibration to isotope dilution-mass spectrometry. Refer to KDIGO guidelines for clinical interpretation. In patients with unstable renal function, e.g. those with acute kidney injury, the eGFR may not accurately reflect actual GFR. Performed By: #### 2 4321-2 ####DICK LABORATORYCLIA [id number] [place] [id number] [place] Glucose [Mass/Vol] 116 mg/dL High 74-99 [facility] Comment on above: Order Comment: Pau orantes Type: BLOOD SPECIMENOrdering Facility: [facility] Address: [place] [address] Result Comment: The [place] Diabetes Association (ADA) provides guidance for cutoff values for fasting glucose and random glucose. The ADA defines fasting as no caloric intake for at least 8 hours. Fasting plasma glucose results between 100 to 125 mg/dL indicate increased risk for diabetes (prediabetes). Fasting plasma glucose results greater than or equal to 126 mg/dL meet the criteria for diagnosis of diabetes. In the absence of unequivocal hyperglycemia, results should be confirmed by repeat testing. In a patient with classic symptoms of hyperglycemia or hyperglycemic crisis, random plasma glucose results greater than or equal to 200 mg/dL meet the criteria for diagnosis of diabetes. Reference: Standards of Medical Care in Diabetes 2016, [place] [employer] Association. Diabetes Care. 2016.39(Suppl 1). Performed By: #### 2 4321-2 ####PHILLIPS LABORATORYCLIA [id number] [place] [address] [place] Potassium [Moles/Vol] 4.5 mmol/L Normal 3.7-5.1 [facility] Comment on above: Order Comment: Pau orantes Type: BLOOD SPECIMENOrdering Facility: [facility] Address: [address] [facility] [place] [address] Performed By: #### 2 4321-2 ####DICK LABORATORYCLIA [id number] [address] [place] [facility] Sodium [Moles/Vol] 135 mmol/L Low 136-144 [facility] Comment on above: Order Comment: Speci men Type: BLOOD SPECIMENOrdering Facility: [facility] Address: [address] [place] [address] Performed By: #### 2 4321-2 ####DICK LABORATORYCLIA [id number] [place] [address] [place] Urea nitrogen [Mass/Vol] 17 mg/dL Normal 7-21 [facility] Comment on above: Order Comment: Speci men Type: BLOOD SPECIMENOrdering Facility: [facility] Address: [address] [place] [address] Performed By: #### 2 4321-2 ####DICK LABORATORYCLIA [id number] [address] [place] CBC panel Auto (Bld)on 09-06 Erythrocyte distribution width (RBC) [Ratio] 13.9 % Normal 11.5-15.0 [facility] Comment on above: Order Comment: Speci men Type: BLOOD SPECIMENOrdering Facility: [facility] Address: [address] [place] [address] Performed By: #### 5 8410-2 ####DICK LABORATORYCLIA [id number] [address] OF [place] Hematocrit (Bld) [Volume fraction] 44.1 % Normal 36.0-46.0 [facility] Comment on above: Order Comment: Speci men Type: BLOOD SPECIMENOrdering Facility: [facility] Address: [address] [place] [address] Performed By: #### 5 8410-2 ####DICK LABORATORYCLIA [id number] [address] [place] Hemoglobin (Bld) [Mass/Vol] 14.4 g/dL Normal 11.5-15.5 [facility] Comment on above: Order Comment: Speci men Type: BLOOD SPECIMENOrdering Facility: [facility] Address: [address] [place] [address] Performed By: #### 5 8410-2 ####DICK LABORATORYCLIA [id number] [address] MCH (RBC) [Entitic mass] 30.7 pg Normal 26.0-34.0 [facility] Comment on above: Order Comment: Speci men Type: BLOOD SPECIMENOrdering Facility: [facility] Address: [address] [place] [address] Performed By: #### 5 8410-2 ####DICK LABORATORYCLIA [id number] [address] MCHC (RBC) [Mass/Vol] 32.7 g/dL Normal 30.5-36.0 [facility] Comment on above: Order Comment: Speci men Type: BLOOD SPECIMENOrdering Facility: [facility] Address: [address] [place] [address] Performed By: #### 5 8410-2 ####DICK LABORATORYCLIA [id number] [address] MCV (RBC) [Entitic vol] 94.0 fL Normal 80.0-100.0 [facility] Comment on above: Order Comment: Speci men Type: BLOOD SPECIMENOrdering Facility: [facility] Address: [address] [place] [address] Performed By: #### 5 8410-2 ####DICK LABORATORYCLIA [id number] [address] Nucleated RBC (Bld) [#/Vol] 10*3/uL Normal <0.01 [facility] Comment on above: Order Comment: Speci men Type: BLOOD SPECIMENOrdering Facility: [facility] Address: [address] [place] [address] Performed By: #### 5 8410-2 ####DICK LABORATORYCLIA [id number] [address] Platelet mean volume (Bld) [Entitic vol] 10.8 fL Normal 9.0-12.7 [facility] Comment on above: Order Comment: Speci men Type: BLOOD SPECIMENOrdering Facility: [facility] Address: [address] [place] [address] Performed By: #### 5 8410-2 ####DICK LABORATORYCLIA [id number] [address] OF [facility] Platelets (Bld) [#/Vol] 218 10*3/uL Normal 150-400 [facility] Comment on above: Order Comment: Speci men Type: BLOOD SPECIMENOrdering Facility: [facility] Address: [address] [place] [address] Performed By: #### 5 8410-2 ####PHILLIPS LABORATORYCLIA [id number] [address] OF [place] RBC (Bld) [#/Vol] 4.69 10*6/uL Normal 3.90-5.20 [facility] Comment on above: Order Comment: Speci men Type: BLOOD SPECIMENOrdering Facility: [facility] Address: [address] [place] [address] Performed By: #### 5 8410-2 ####PHILLIPS LABORATORYCLIA [id number] [address] OF [place] WBC (Bld) [#/Vol] 18.18 10*3/uL High 3.70-11.00 [facility] Comment on above: Order Comment: Speci men Type: BLOOD SPECIMENOrdering Facility: [facility] Address: [address] [place] [address] Performed By: #### 5 8410-2 ####DICK LABORATORYCLIA [id number] [address] OF [place] CNDSon 09-06-2022 CNDS HNO ID: [id number] Author: Nara Rodríguez PA-C Service: General Surgery Author Type: Physician Calender Roll Operator Type: Discharge Summary Filed: 09/06/2022 12:02 PM Note Text: Attestation signed by Murray Guadarrama MD at 09/07/2022 12:44 PM Agree Murray Guadarrama MD DISCHARGE SUMMARY PATIENT NAME: Santy Raza Code Status: Not on file Highest Readmission Risk Score: 12 The 30 day readmissions risk score is derived from an internally validated risk model which evaluates patient level characteristics, utilization history, medication orders and lab results up until the day of discharge. Patients with a score of 40 or above are considered highest risk for readmission. Specific patient level drivers will be listed at the bottom of the summary. Admission Information Admission Information ADMIT DATE: 09/05/2022 DISCHARGE DATE: 09/06/2022 MY DOCTORS AND MEDICAL TEAM: My Main Hospital Doctor: Murray Guadarrama MD Primary Care Provider: Deloris Chavez APRN.CONTENT MANAGEMENT CONSULTANT My Medical Team Members: Treatment Team: Attending Provider: Murray Guadarrama MD MY CONDITION AT DISCHARGE: Stable REASON I WAS IN THE HOSPITAL: ventral hernia SUMMARY OF WHAT HAPPENED WHILE I WAS IN THE HOSPITAL: You came into the hospital for a scheduled hernia repair with Dr. Guadarrama. You were taken to the operating room for a planned laparoscopic ventral hernia repair. Upon entering the abdomen it was decided to open the abdomen for better visualization and better repair of the hernia. You were recovered and transferred to the nursing floor for continued observation and pain control. At discharge you were tolerating your diet and pain was controlled. OTHER PROBLEMS/DIAGNOSIS: Principal Problem: Ventral hernia without obstruction or gangrene Active Problems: S/P repair of ventral hernia Resolved Problems: * No resolved hospital problems. * OPERATIONS PERFORMED WHILE IN THE HOSPITAL: open ventral hernia repair with mesh IMPORTANT TEST/PROCEDURES: No procedures performed TEST RESULTS NOT AVAILABLE AT THIS TIME: No pending results Discharge Disposition Discharge Disposition: Home With Self Care Activity When You Leave the Hospital Lifting is restricted to: No lifting >20 lbs until post op appointment May shower May shower; no baths, hot tub or pool May use stairs No driving for: While on narcotic pain medication No prolonged bedrest, longer than 8 hours in a 24 hour period No walking restrictions Resume pre-hospital activity No lifting >20lbs until post op Diet Instructions Resume your pre-hospital diet For Pain When You Leave the Hospital Apply a covered cold pack to the area No alcohol or driving while on pain medication Use acetaminophen (Tylenol) as recommended on the bottle Use ibuprofen (Motrin, Advil) as recommended on the bottle Use the dispensed medication (see prescription) Tylenol (acetaminophen) up to 650mg (2 over the counter 325mg) every 6 hours Motrin (ibuprofen) up to 800mg (4 over the counter 200mg) every 6 hours between tylenol Roxicodone 5mg every 6 hours as needed for pain. You should use an moxv-tbo-phazovt stool softener (Docusate sodium) and/or a fiber supplement (Metamucil, Fiber Con) every day while taking prescribed pain medication Wound/Surgical Site Care Drain care as instructed by nurse Leave open to air Record output of your drain Some bleeding from the wound/surgical site can be expected. If excessive, see a doctor at once Wash your hands frequently, especially before touching your incision, after using restroom and before eating Your incision has skin glue. It will peel off on its own. It can get wet Call Your Doctor If There is an unusual odor from the wound area There is severe pain at the operative site You have difficulty urinating or pain when urinating You have lightheadedness, fainting, or confusion You have pain and swelling in your legs, especially if it is only on one side and not the other You have persistent nausea/vomiting over 24 hours You have redness, swelling, pus or drainage from the wound Your temperature is greater than 101F Follow Up Appointments Follow-Up Appointment Or Nara Rodríguez PA-C When: In 4 days Patient/Parents to call for appointment?: Scheduled Murray Guadarrama MD [phone] [address] [facility] [address] PCP Requested Referral Additional Provider to Provider Information: S/p ventral hernia repair with mesh Treatment Team: Attending Provider: Murray Guadarrama MD Transitions of Care Critical Issues: Drain LABS AND PROCEDURES PENDING AT DISCHARGE: No pending results. FOLLOW-UP APPOINTMENTS ALREADY SCHEDULED WITH A [facility] PROVIDER: Future Appointments Date Time Provider Department Center 3 (more content not included)... [facility] ANES POSTPROC EVALon 023 ANES POSTPROC EVAL HNO ID: [id number] Author: Matias Fairchild MD Service: ? Author Type: Anesthesiologist Type: Anesthesia Postprocedure Evaluation Filed: 09/05/2022 5:17 PM Note Text: POST ANESTHESIA EVALUATION NOTE : 1960 Procedure Summary Date: 09/05/22 Room / Location: TX OR / [place] OR Anesthesia Start: 734 Anesthesia Stop: 1035 Procedure: LAPAROSCOPIC HERNIORRHAPHY FOR REDUCIBLE VENTRAL 3cm-10cm (Abdomen) Diagnosis: Ventral hernia without obstruction or gangrene (Ventral hernia without obstruction or gangrene [K43.9]) Surgeons: Murray Guadarrama MD Responsible Provider: Matias Fairchild MD Anesthesia Type: general ASA Status: 3 Anesthesia Type: general Airway Type: ETT Last Vitals Vitals Value Taken Time BP 130/75 09/05/22 1636 Temp 36.8 ?C (98.2 ?F) 09/05/22 1636 Pulse 89 09/05/22 1636 Resp 20 09/05/22 1636 SpO2 92 % 09/05/22 1636 Post Anesthesia Patient Status Patient Evaluation: bedside. Anticipated Disposition: inpatient floor planned admission. Neurological Status: sleepy but arousable. Pulmonary Status: breathing comfortably on room air Airway Control: returned to baseline unsupported. Cardiovascular Status: stable. Pain Management: clinically adequate Postoperative Hydration: acceptable. Intraoperative Events: no significant anesthesia events Post Operative Nausea/Vomiting Status: no significant post operative nausea or vomiting Recommendation: continue current plan of care and pain control. Anesthesia Observations No Documentation SIGNATURE: Matias Fairchild MD PATIENT NAME: Santy Raza DATE: September 05, 2022 TIME: 5:17 PM CSN: [id number] [facility] ANES PRE-OPon 09-05-2022 ANES PRE-OP HNO ID: [id number] Author: Matias Fairchild MD Service: ? Author Type: Anesthesiologist Type: Anesthesia Preprocedure Evaluation Filed: 09/05/2022 7:27 AM Note Text: ANESTHESIOLOGY DAY OF SURGERY NOTE : 1960 Procedure Information Date/Time: 09/05/22729 Procedure: LAPAROSCOPIC HERNIORRHAPHY FOR REDUCIBLE VENTRAL 3cm-10cm Location: TX OR05 / [place] OR Surgeons: Murray Guadarrama MD Estimated body mass index is 47.13 kg/m? as calculated from the following: Height as of 08/27/22: 167.6 cm (5' 6). Weight as of 09/02/22: 132.5 kg (292 lb). Most recent hematocrit and potassium results: Hematocrit 48.5 08/29/2022 Potassium 4.4 08/29/2022 Relevant Problems ANESTHESIA (+) TRINI (obstructive sleep apnea) CARDIO (+) Essential hypertension, benign (-) Angina at rest (HCC) (-) Angina of effort (HCC) ENDO (+) Hypothyroidism GI (+) GERD without esophagitis PULMONARY (+) Mucopurulent chronic bronchitis (HCC) (+) TRINI (obstructive sleep apnea) (+) Shortness of breath I - PHYSICAL EVALUATION AIRWAY Patient intubated: No. Tracheostomy tube not present Mallampati: II. TM distance: >3 FB. Neck ROM: full ROM without neurological symptoms. Mouth opening: adequate. Short neck: yes. Thick neck: yes Romero present: no Additional exam findings: no II - ANESTHESIA PLAN ASA Score: 3 Anesthetic Plan: general Airway type: ETT The patient is not a current smoker. NPO Status: adequate Beta Stuart Administration of chronic beta stuart medication not planned. Monitoring Plan Monitoring plan: standard ASA. Post Procedure Analgesic Plan Postoperative analgesic plan: multimodal analgesia. Informed Consent Anesthetic risks, benefits, alternatives, personnel and consent discussed: yes. Patient / Responsible Libertarian agrees to proceed: yes Patient / Surrogate agrees to blood products: Yes DNR status not reviewed with patient and/or family prior to surgery. Significant changes in the patient condition since the History and Physical, not otherwise documented in primary service progress note: no. Potential Anesthesia issues that may suggest increased risk of complications or contraindication to planned procedure: none. Vitals Value Taken Time BP 133/66 09/05/22 0641 Pulse Resp 16 09/05/22 0641 Temp 36.5 ?C (97.7 ?F) 09/05/22640 SpO2 94 % 09/05/22640 Facility-Administered Medications as of 09/05/2022 Medication Dose Route Frequency - lidocaine (PF) 10 mg/mL (1 %) 1-2 mg injection (XYLOCAINE) 0.1-0.2 mL INTRADERMAL PRN - lactated ringers iv infusion 5-30 mL/hr INTRAVENOUS CONTINUOUS - NaCl 0.9% iv flush bag 20 mL INTRAVENOUS PRN - ceFAZolin 3 g in D5W 100 mL (ANCEF) 3 g INTRAVENOUS Pre-Op Once - acetaminophen 1,000 mg tab(s) (TYLENOL) 1,000 mg ORAL Pre-Op Once Outpatient Medications as of 09/05/2022 Medication Sig - albuterol (PROVENTIL) 2.5 mg /3 mL (0.083 %) nebulizer solution Use 3 mL via nebulizer every 6 hours as needed for wheezing/shortness of breath. - loratadine (CLARITIN) 10 mg tablet Take 1 tablet by mouth once daily. - citalopram (CELEXA) 40 mg tablet Take 1 tablet by mouth once daily. - levothyroxine (LEVOXYL) 200 mcg tablet Take 1 tablet by mouth once daily. Take on empty stomach. For thyroid - buPROPion XL (WELLBUTRIN XL) 150 mg 24 hr tablet Take 1 tablet by mouth once daily. - ondansetron (ZOFRAN) 4 mg tablet Take 1 tablet by mouth every 8 hours as needed for nausea/vomiting. - SUCRAID 8,500 unit/mL soln - amitriptyline (ELAVIL) 25 mg tablet Take 1 tablet by mouth daily at bedtime. - amLODIPine (NORVASC) 5 mg tablet Take 1 tablet by mouth once daily. - tegaserod hydrogen maleate 6 mg tablet (ZELNORM) Take 1 tablet (6 mg) by mouth twice daily before meals. - CPAP autoCPAP 5-15 cmH2O, mask, tubing, filters, heated humidity, lifetime supplies. Dx: TRINI - COMPOUNDED PRESCRIPTION Nebulizer for albuterol every fours as needed ICD: R06.2 - fluticasone (FLONASE) 50 mcg/actuation nasal spray Use 2 Sprays in each nostril once daily. Rinse mouth after use. - Nebulizer Accessories misc 1 Each as directed. Nebulizer tubing and mouth piece. faxed to - CIP[employer] 0.3-0.1 % otic suspension Use 2 Drops in both ears as needed. 2 drops twice daily as needed. - dexAMETHasone (DEXASOL) 0.1 % ophthalmic solution Use 1 Drop in both eyes every 12 hours as needed. Instill 2 drops into affected ear twice daily as needed. - baclofen (LIORESAL) 10 mg tablet TAKE 1/2 TO 1 TABLET BY MOUTH TWICE A DAY NEEDED FOR SPASMS - urea (CARMOL) 40 % Apply to affected area as needed. - Cholecalciferol, Vitamin D3, 125 mcg (5,000 unit) cap Take 1 capsule by mouth once daily. - Bifidobacterium Infantis (ALIGN) 4 mg cap Take 1 capsule by mouth once daily. - Nebulizer 1 Each as needed. NEBULIZER TUBING AND SUPPLIES. DX: CHRONIC BRONCHITIS J41.1, WHEEZING R06.2. FAX TO [facility] [place] [phone] I have interviewed and examined the patient. I (more content not included)... [facility] BRIEF OP NOTon 09-05-2022 BRIEF OP NOT HNO ID: [id number] Author: Murray Guadarrama MD Service: General Surgery Author Type: Physician Type: Brief Op Note Filed: 09/05/2022 10:49 AM Note Text: BRIEF OPERATIVE / PROCEDURE NOTE LOG ID: [id number] SURGERY/PROCEDURE DATE: 09/05/2022 INCISION/PROCEDURE START TIME: 7:59 AM INCISION CLOSE/PROCEDURE END TIME: 10:20 AM SURGEON(S)/PROCEDURALIST(S) AND TRANSPORTATION SECURITY OFFICER(S): Surgeon(s) and Role: * Murray Guadarrama MD - Primary Registered Nurse Event Representative: Garima Spencer RN SURGERY/PROCEDURE(S): Diagnostic laparoscopy Open ventral hernia repair with mesh ANESTHESIA: General FINDINGS: 6 x 9 cm final defect size ESTIMATED BLOOD LOSS: 50 mls SPECIMENS: hernia sac/omentum COMPLICATIONS: None PRE-OP/PRE-PROCEDURE DIAGNOSIS: ventral hernia POST-OP/POST-PROCEDURE DIAGNOSIS: Same as Preop SIGNATURE: Murray Guadarrama MD PATIENT NAME: Santy Raza DATE: September 05, 2022 TIME: 10:38 AM [facility] HISTORY PHYSICALon 03-23-202 3 HISTORY PHYSICAL HNO ID: [id number] Author: Murray Guadarrama MD Service: General Surgery Author Type: Physician Type: HANDP Filed: 09/05/2022 7:27 AM Note Text: UPDATED HISTORY AND PHYSICAL EXAMINATION SERVICE DATE: 09/05/2022 SERVICE TIME: 7:27 AM PHYSICAL EXAM MUST BE COMPLETED ON ADMISSION The History and Physical (completed in the past 30 days) has been reviewed and the patient has been examined. The contents accurately reflect the patient's condition with the following additions or revisions since the HANDP was completed. Examination indicates no changes. This HANDP can be found in the Electronic Medical Record . SIGNATURE: Murray Guadarrama MD PATIENT NAME: Santy Raza DATE: September 05, 2022 TIME: 7:27 AM Normal [facility] NURSING PROGon 09-05-2022 NURSING PROG HNO ID: [id number] Author: Maureen Anderson RN Service: ? Author Type: Registered Nurse Type: Nursing Progress Note Filed: 09/05/2022 11:11 AM Note Text: Oxygen saturation decreased to 88-90%. placed patient back on SFM at 6L per minute. Call to Dr Fairchild. Patient with prolonged end expiratory wheeze. Encouraged patient to cough. Patient splinting abdomen with assistance. Normal [facility] OPERATIVE NOon 09-05-2022 OPERATIVE NO HNO ID: [id number] Author: Murray Guadarrama MD Service: General Surgery Author Type: Physician Type: Operative Report Filed: 09/07/2022 12:44 PM Note Text: [facility] - Operative Report SANTY RAZA : 1960 AGE: 61. SEX: F PATIENT TYPE: [place] [facility] [place] [facility] LOCATION: [facility] ATTENDING PHYSICIAN: Murray Guadarrama M.D. CSN NUMBER: [id number] DATE OF SURGERY/PROCEDURE: 09/05/2022 INCISION/PROCEDURE START TIME: 7:59 a.m. INCISION CLOSE/PROCEDURE END TIME: 10:20 a.m. PREOPERATIVE DIAGNOSIS: Ventral hernia. POSTOPERATIVE DIAGNOSIS: Ventral hernia. SURGEON: Murray Guadarrama M.D. TRANSPORTATION SECURITY OFFICER: DIMAS Manzano SURGERY/PROCEDURE: 1. Diagnostic laparoscopy. 2. Open ventral hernia repair with mesh. ANESTHESIA: General. FINDINGS: Roughly 6 x 9 cm final fascial defect size. Hernia contained omental fat and transverse colon. ESTIMATED BLOOD LOSS: 50 mL or less. SPECIMENS: Hernia sac and omentum. COMPLICATIONS: None. PATIENT HISTORY: Patient is a 61-year-old female recently seen through the office with abdominal pain. She was found to have a hernia. This was fairly sizable and her body habitus made it somewhat difficult to ascertain the exact size of the hernia. She underwent a CT scan for surgical planning purposes. The fascial defect size seemed to be about 6 cm and appeared to be a smaller umbilical hernia nearby as well. I recommended a laparoscopic possible open ventral hernia repair with mesh. We discussed details of planned procedure and she wished to proceed. DESCRIPTION OF PROCEDURE: She was brought to the operating room today following informed consent. Antibiotics were given. Time-out was performed. She was placed supine on the operating room table with arms outstretched on armboards. General anesthesia was induced. The abdomen was then prepped and draped in usual sterile manner. A 5 mm incision was made in the left upper quadrant through which a 5 mm trocar was placed optically. This was placed without incident. Once in place, the abdomen was then fully insufflated with CO2 gas. A 5 mm 0-degree scope was inserted and there were no signs of bowel or vascular injury. The hernia was quite sizable, the fact that it was a fairly large hernia. This really restricted the abdomen ability to distend laparoscopically as well as the size of her abdomen, so I felt that this really did not provide sufficient working space to reduce this very large hernia. This did not reduce related to any appreciable extent laparoscopically with outside pressure, so the decision was made to make a midline incision overlying the hernia. Bovie electrocautery was then used to dissect down through subcutaneous tissue. The hernia sac was delineated. This was dissected down to the level of the fascia, keeping the hernia sac intact. Once the fascial edges were identified, the hernia sac was incised and the hernia contents were dissected free from its adhesions to the hernia sac and eventually the hernia contents were reduced. This contained again mostly transverse colon with stool within it as well as omental fat. This was reduced. The hernia sac was excised. Some omentum was removed as well as this was too densely adherent to the hernia sac. This was reduced back into the abdomen. Hemostasis at this point was excellent. There was a fascial defect down by the umbilicus as well. The skin of the umbilicus was detached off the underlying hernia sac. The 2 fascial defects were then connected, making a larger fascial defect measuring about 6 x 9 cm proximally. Next, it was decided to place a piece of mesh in a sub-lay manner using Symbotex Covidien mesh. This was 15 x 10 cm. This was inserted after being placed in antibiotic solution. #1 Nurolon was then used to suture the mesh in place in 8 separate sutures and then AbsorbaTack Tacker was then used around the perimeter to tack the mesh into place. This laid very nicely, covered that over the fascial defect opening well. The fascial defect was then closed using interrupted #2 Ethibond sutures, again placed in a [id number] manner, numerous sutures like this were placed along the entire length of the fascial closure. This closed the fascia nicely. The wound was copiously irrigated numerous times through this process. Hemostasis was excellent. A JARAD drain was then placed on top of the fascia. The skin of the umbilicus was then re-affixed to the underlying fascia using 2-0 Vicryl. 2-0 Vicryl was then used to reapproximate the subdermal layer and the deep subcutaneous layers, and then 5-0 Vicryl was run on the skin. A JARAD drain was brought out through the left upper quadrant incision that was used for the initial laparoscopic entry point. The skin was closed with 4-0 Vicryl. Skin glue was applied as dressing along with a Silverlon dressing. Abdominal binder was placed as well. She was awakened from anest (more content not included)... Normal [facility] SURGICAL PATHOLOGYon 023 CASE REPORT Normal [facility] Comment on above: Order Comment: Speci men Type: TISSUE SPECIMENOrdering Facility: [facility] Address: [place] [address] Result Comment: Surg [facility] Pathology Report Case: [id number] Authorizing Provider: Murray Guadarrama MD Collected: 09/05/2022 08:31 AM Ordering Location: [facility] Surgery Received: 09/05/2022 11:34 AM Pathologist: Pattie Zhang MD Specimen: HERNIA SAC, hernia sac and omentum Performed By: #### S ####[facility] LABCLIA [id number] [address] CLINICAL HISTORY Normal [facility] Comment on above: Order Comment: Speci men Type: TISSUE SPECIMENOrdering Facility: [facility] Address: [address] [place] [address] Result Comment: Pre- op diagnosis: Ventral hernia without obstruction or gangrene [K43.9] Performed By: #### S ####[facility] LABIA [id number] [address] FINAL DIAGNOSIS Normal [facility] Comment on above: Order Comment: Speci men Type: TISSUE SPECIMENOrdering Facility: [facility] Address: [address] [place] [address] Result Comment: Soft tissue, ventral hernia and omentum, herniorrhaphy and excision: - Hernia sac. - Fibroadipose tissue consistent with omentum. Performed By: #### S ####[facility] LABIA [id number] [address] FINAL PERFORMING LAB Normal [facility] Comment on above: Order Comment: Speci men Type: TISSUE SPECIMENOrdering Facility: [facility] Address: [address] [place] [address] Result Comment: Diag nostic interpretation performed at [facility], [address] [address] CLIA# [id number] Foreign Clerk: Eldon Santos M.D. Performed By: #### S ####[facility] LABCLIA [id number] [address] GROSS DESCRIPTION A. HERNIA SAC Normal [facility] Comment on above: Order Comment: Speci men Type: TISSUE SPECIMENOrdering Facility: [facility] Address: [address] [place], [place] [address] [place], [place] [address] Result Comment: Rece ived in formalin designated hernia sac and omentum is a knowles-yellow rubbery and lobulated portion of omentum that measures 12 x 8.6 x 4 cm. Also within the container is a pink-knowles rubbery fragment of fibromembranous tissue that measures 8 x 6.5 x 2.5 cm. Android Programmer sections are submitted in 1 cassette. WE September 05, 2022 4:04 PM Gross examination performed at [facility], [address], [place] [address] Performed By: #### S ####[facility] LABCLIA [id number] [id number] [id number] [place] XR CHEST 2V FRONTAL/LATon [facility] XR Chest PA and Lateralon IMPRESSION: Stable exam without acute findings. Manager Target: [facility] Transcribe Date/Time: Sep 02 2022 11:02A Dictated by : PAULETTE PERKINS MD This examination was interpreted and the report reviewed and electronically signed by: PAULETTE PERKINS MD on Sep 02 2022 11:06AM [facility] DIVISION OF RADIOLOGY * * *Final Report* * * DATE OF EXAM: Sep 02 2022 9:38AM WOX 5291 - XR CHEST 2V FRONTAL/LAT / PROCEDURE REASON: SOB (shortness of breath) * * * * Physician Interpretation * * * * EXAMINATION: CHEST RADIOGRAPH (2 VIEW FRONTAL & LATERAL) CLINICAL HISTORY: SOB (shortness of breath) MQ: XC2_6 EXAM DATE/TIME: 09/02/2022 9:38 AM COMPARISON: Chest x-ray on 07/01/2022 RESULT: Lines, tubes, and devices: None. Lungs and pleura: Stable calcified/partially calcified nodule in the right lower lung. Mild atelectasis/scarring noted in the lingula or right middle lobe, unchanged. There is a large left-sided pericardial fat pad. No pleural effusions or pneumothorax. Cardiomediastinal silhouette: Normal cardiomediastinal silhouette. Bones and soft tissues: Unremarkable. DIVISION OF RADIOLOGY Provider, [facility] [place] - 09/02/2022 * * *Final Report* * * DATE OF EXAM: Sep 02 2022 9:38AM WOX 5291 - XR CHEST 2V FRONTAL/LAT / PROCEDURE REASON: SOB (shortness of breath) * * * * Physician Interpretation * * * * EXAMINATION: CHEST RADIOGRAPH (2 VIEW FRONTAL & LATERAL) CLINICAL HISTORY: SOB (shortness of breath) MQ: XC2_6 EXAM DATE/TIME: 09/02/2022 9:38 AM COMPARISON: Chest x-ray on 07/01/2022 RESULT: Lines, tubes, and devices: None. Lungs and pleura: Stable calcified/partially calcified nodule in the right lower lung. Mild atelectasis/scarring noted in the lingula or right middle lobe, unchanged. There is a large left-sided pericardial fat pad. No pleural effusions or pneumothorax. Cardiomediastinal silhouette: Normal cardiomediastinal silhouette. Bones and soft tissues: Unremarkable. IMPRESSION IMPRESSION: Stable exam without acute findings. Manager Target: [facility] Transcribe Date/Time: Sep 02 2022 11:02A Dictated by : PAULETTE PERKINS MD This examination was interpreted and the report reviewed and electronically signed by: PAULETTE PERKINS MD on Sep 02 2022 11:06AM EST [facility] Radiology Study observation (narrative) [facility] XR Chest PA and LateralOrder ed By: Ccf Provider on 09-02-2022 [facility] CT ABD/PEL W IVCONon 023 [facility] XR Chest PA and Lateralon IMPRESSION: No acute radiographic abnormality. Manager Target: [facility] Transcribe Date/Time: Jul 01 2022 11:13A Dictated by : CHESTER COLLADO MD This examination was interpreted and the report reviewed and electronically signed by: CHESTER COLLADO MD on Jul 01 2022 11:14AM [facility] DIVISION OF RADIOLOGY * * *Final Report* * * DATE OF EXAM: Jul 01 2022 10:29AM WOX 5291 - XR CHEST 2V FRONTAL/LAT / PROCEDURE REASON: Bacterial pneumonia * * * * Physician Interpretation * * * * EXAMINATION: CHEST RADIOGRAPH (2 VIEW FRONTAL & LATERAL) CLINICAL HISTORY: Bacterial pneumonia MQ: XC2_6 EXAM DATE/TIME: 07/01/2022 10:29 AM COMPARISON: 09/25/2021 RESULT: Lines, tubes, and devices: None. Lungs and pleura: No consolidation. Mild lingular atelectasis/scarring. Calcified granuloma at the right base posteriorly. No lung mass. No pleural effusion. No pneumothorax. Cardiomediastinal silhouette: Normal cardiomediastinal silhouette. Bones and soft tissues: Unremarkable. DIVISION OF RADIOLOGY Provider, Kimberley Ronny [facility] - 07/01/2022 * * *Final Report* * * DATE OF EXAM: Jul 01 2022 10:29AM WOX 5291 - XR CHEST 2V FRONTAL/LAT / PROCEDURE REASON: Bacterial pneumonia * * * * Physician Interpretation * * * * EXAMINATION: CHEST RADIOGRAPH (2 VIEW FRONTAL & LATERAL) CLINICAL HISTORY: Bacterial pneumonia MQ: XC2_6 EXAM DATE/TIME: 07/01/2022 10:29 AM COMPARISON: 09/25/2021 RESULT: Lines, tubes, and devices: None. Lungs and pleura: No consolidation. Mild lingular atelectasis/scarring. Calcified granuloma at the right base posteriorly. No lung mass. No pleural effusion. No pneumothorax. Cardiomediastinal silhouette: Normal cardiomediastinal silhouette. Bones and soft tissues: Unremarkable. IMPRESSION IMPRESSION: No acute radiographic abnormality. Manager Target: [facility] Transcribe Date/Time: Jul 01 2022 11:13A Dictated by : CHESTER COLLADO MD This examination was interpreted and the report reviewed and electronically signed by: CHESTER COLLADO MD on Jul 01 2022 11:14AM EST [facility] Radiology Study observation (narrative) [facility] XR Chest PA and LateralOrder ed By: Cc Provider on 07-01-2022 [facility] Influenza virus A and B RNA and SARS-CoV-2 (COVID-19) N gene panel TAMMY+probe (Resp)on 05-08-2022 FLUAV RNA TAMMY+probe Ql (Unsp spec) Negative Negative for Influenza A by RT-PCR [facility] FLUBV RNA TAMMY+probe Ql (Unsp spec) Negative Negative for Influenza B by RT-PCR [facility] SARS-CoV-2 (COVID-19) RNA TAMMY+probe Ql (Resp) SARS-CoV-2 (Agent of COVID-19) Not Detected by RT-PCR or equivalent method. Not Detected [facility] UA DIP, URINE (POC)on 2021 BILIRUBIN UA (POCT) Negative Negative [facility] CLARITY UA (POCT) Slightly Cloudy Cl [facility] COLOR UA (POCT) Audrey [facility] GLUCOSE UA (POCT) Negative Negative mg/dL [facility] HEMOGLOBIN/BLOOD UA (POCT) Trace-intact Abnormal Negative [facility] KETONE UA (POCT) Negative Negative mg/dL [facility] LEUKOCYTES UA (POCT) Moderate Abnormal Negative [facility] NITRITE UA (POCT) Negative Negative [facility] PH UA (POCT) 6.0 4.5 - 8.0 [facility] Protein Ql (U) Negative Negative mg/dL [facility] SPECIFIC GRAVITY UA (POCT) 1.020 1.005 - 1.030 [facility] UROBILINOGEN UA (POCT) 0.2 E.U./dL Susy l E.U./dL [facility] XR CHEST 2V FRONTAL/LATon [facility] XR Chest PA and Lateralon IMPRESSION: No acute radiographic abnormality. Manager Target: [facility] Transcribe Date/Time: Sep 25 2021 2:47P Dictated by : SULTANA NINO MD This examination was interpreted and the report reviewed and electronically signed by: SULTANA NINO MD on Sep 25 2021 2:49PM EST Z[facility]_DO_NOT_ USE_DIVISIO N OF RADIOLOGY * * *Final Report* * * DATE OF EXAM: Sep 25 2021 2:43PM WOX 5291 - XR CHEST 2V FRONTAL/LAT / PROCEDURE REASON: Wheeze * * * * Physician Interpretation * * * * EXAMINATION: CHEST RADIOGRAPH (2 VIEW FRONTAL & LATERAL) CLINICAL HISTORY: Wheeze MQ: XC2_6 EXAM DATE/TIME: 09/25/2021 2:43 PM COMPARISON: 08/01/2021 RESULT: Lines, tubes, and devices: None. Lungs and pleura: No consolidation. No lung mass. No pleural effusion. No pneumothorax. There is some mild atelectasis in the left lung base. Cardiomediastinal silhouette: Stable cardiomediastinal silhouette. Stable fullness of the right hilum. Bones and soft tissues: Unremarkable. ZZZ_DO_NOT_ USE_DIVISIO N OF RADIOLOGY Provider, Navya vargas [place] - 09/25/2021 * * *Final Report* * * DATE OF EXAM: Sep 25 2021 2:43PM WOX 5291 - XR CHEST 2V FRONTAL/LAT / PROCEDURE REASON: Wheeze * * * * Physician Interpretation * * * * EXAMINATION: CHEST RADIOGRAPH (2 VIEW FRONTAL & LATERAL) CLINICAL HISTORY: Wheeze MQ: XC2_6 EXAM DATE/TIME: 09/25/2021 2:43 PM COMPARISON: 08/01/2021 RESULT: Lines, tubes, and devices: None. Lungs and pleura: No consolidation. No lung mass. No pleural effusion. No pneumothorax. There is some mild atelectasis in the left lung base. Cardiomediastinal silhouette: Stable cardiomediastinal silhouette. Stable fullness of the right hilum. Bones and soft tissues: Unremarkable. IMPRESSION IMPRESSION: No acute radiographic abnormality. Manager Target: [employer] Transcribe Date/Time: Sep 25 2021 2:47P Dictated by : SULTANA NINO MD This examination was interpreted and the report reviewed and electronically signed by: SULTANA NINO MD on Sep 25 2021 2:49PM EST [facility] Radiology Study observation (narrative) [facility] XR Chest PA and LateralOrder ed By: Ccf Provider on 09-25-2021 [facility] XR Chest PA and Lateralon IMPRESSION: 1. No focal consolidation identified. 2. Stable fullness of the right hilum. Manager Target: [place] Transcribe Date/Time: Aug 01 2021 10:33A Dictated by : AURA GRIFFIN MD This examination was interpreted and the report reviewed and electronically signed by: AURA GRIFFIN MD on Aug 01 2021 10:34AM [facility] DIVISION OF RADIOLOGY * * *Final Report* * * DATE OF EXAM: Aug 01 2021 10:28AM WOX 5291 - XR CHEST 2V FRONTAL/LAT / PROCEDURE REASON: Wheezing * * * * Physician Interpretation * * * * EXAMINATION: CHEST RADIOGRAPH (2 VIEW FRONTAL & LATERAL) CLINICAL HISTORY: Wheezing MQ: XC2_6 EXAM DATE/TIME: 08/01/2021 10:28 AM COMPARISON: Chest x-ray dated October 15, 2019 RESULT: Lines, tubes, and devices: None. Lungs and pleura: No consolidation. No lung mass. No pleural effusion. No pneumothorax. Cardiomediastinal silhouette: Stable cardiomediastinal silhouette with stable fullness of the right hilum. Bones and soft tissues: Degenerative changes are present within the thoracic spine. DIVISION OF RADIOLOGY Provider, [facility] - 08/01/2021 * * *Final Report* * * DATE OF EXAM: Aug 01 2021 10:28AM WOX 5291 - XR CHEST 2V FRONTAL/LAT / PROCEDURE REASON: Wheezing * * * * Physician Interpretation * * * * EXAMINATION: CHEST RADIOGRAPH (2 VIEW FRONTAL & LATERAL) CLINICAL HISTORY: Wheezing MQ: XC2_6 EXAM DATE/TIME: 08/01/2021 10:28 AM COMPARISON: Chest x-ray dated October 15, 2019 RESULT: Lines, tubes, and devices: None. Lungs and pleura: No consolidation. No lung mass. No pleural effusion. No pneumothorax. Cardiomediastinal silhouette: Stable cardiomediastinal silhouette with stable fullness of the right hilum. Bones and soft tissues: Degenerative changes are present within the thoracic spine. IMPRESSION IMPRESSION: 1. No focal consolidation identified. 2. Stable fullness of the right hilum. Manager Target: [facility] Transcribe Date/Time: Aug 01 2021 10:33A Dictated by : AURA GRIFFIN MD This examination was interpreted and the report reviewed and electronically signed by: AURA GRIFFIN MD on Aug 01 2021 10:34AM EST [facility] Radiology Study observation (narrative) [facility] XR Chest PA and LateralOrder ed By: Cc Provider on 08-01-2021 [facility] CNOVon 05-22-2020 CNOV Office Visit (UROLAE ) SANTY RAZA ([id number]) 1960 F Date Time Provider Department 05/22/20 10:00 AM PROC URODYNAMICS UROLAE During your visit today, we recorded the following information about you: Nick Houser RN 05/22/2020 9:49 AM Signed POST PROCEDURE INSTRUCTIONS Santy Raza May 22, 2020 ? Increase your fluid intake. ? FOLLOW UP APPOINTMENT: 06/02/20 at 8:00 with Brice Woodson in the [address] [place] [address] office. ? WHEN TO CALL THE DOCTOR: ? If you develop fever (over 101 degrees) or chills. ? If you cannot urinate or empty your bladder. ? If you develop symptoms of a urinary tract infection such as burning or pain with urination, increased frequency of urination or foul smelling urine ? If you have any other questions or problems. Office phone number; [phone] Nick Houser RN 05/22/2020 11:30 AM Addendum Santy Raza [id number] 1960 May 22, 2020 Diagnoses: Stress urinary incontinence UA done: No Procedure Performed: Multichannel urodynamic testing including multichannel cystometrogram, uroflowmetry, pressure voiding study and EMG. Procedure: The patient verified medications and allergies. The procedure was explained to the patient. Immediately prior to the test the patient was given Lidocaine 2% jelly 6 ml to urethra and Macrobid 100 mg #1 by mouth per order. UNIVERSAL PROTOCOL / SAFETY CHECKLIST Procedure to be performed: Urodynamics Sign in Communication: Completed Time Out: Team Confirms the Correct Patient, Correct Procedure, Correct Site and Site Marking, Correct Position (if applicable), Prep and Dry Time (if applicable). Time: 1000 Affirmation of Time Out: N/A Sign Out Discussion: Completed Urodynamic Findings: Uroflow : Patient arrived with a ace catheter- No. Patient voided 91 ml; Curve: Intermittent Post void residual 60 ml QMAX 7.9 ; QAVG 1.2 . Cystometrogram: The patient had a cystometrogram EMG: Yes First Sensation 156 ml First desire 209 ml Strong Desire 217 ml Capacity 226 ml The patient did not leak with cough. no destrusor contractions Instability associated with urge: No Instability associated with leakage: No Stress test: Leak with Cough large Was patient assessed for VLPP: YES Leak point pressure testing 191 and 180 cmH2O Baseline 49 Subtracted leak point pressure 142 and 131 cmH2O Reduced Stress Test: N/A. There was no evidence of prolapse Pressure-Flow Voiding Study: EMG: Yes Void 204 ml; Curve: Intermittent Post void residual: 5ml Maximum detrusor pressure 52.3 Cm H20 Maximum flow rate: 8.1 ml/sec Average flow rate: 2.5 ml/sec Pressure at peak flow: 79.8 UDS notes: N/A Plan: Will follow up with provider to discuss results and plan of care. Patient tolerated the procedure well. Home going instructions given. Patient able to repeat back understanding of instructions. Nick Houser RN cc: Joel Woodson MD ADDENDUM ASSESSMENT: Filling and Storage: Bladder sensation is normal without bladder pain, without urgency and with normal detrusor function. Bladder capacity is reduced. 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 Voiding: Overall voiding function is normal. Urine flow is continuous with a smooth flow curve. Detrusor function during voiding is normal with a normal postvoid residual. Electromyography: Provocative maneuvers produced appropriate changes in waveforms. The EMG shows increased EMG activity with increased intraabdominal pressure. There was a decrease in the EMG activity during voiding consistent with normal function of the pelvic floor. PLAN: Plan for mid-urethral sling and cystoscopy. Pt has preoperative appointment on 06/02/2020 to sign consent form. Joel Woodson MD Referring Provider: JOEL WOODSON [[id number]] Allergies As of Date: 05/22/2020 Noted Allergy Reaction CODFISH [Other] 03/04/2005 9 - Itching DOXYCYCLINE MONOHYDRATE 07/10/2016 11 - Vomiting HCTZ [Other] 03/04/2005 9 - Itching LEVAQUIN (LEVOFLOXACIN) 03/04/2005 14 - Other: See Comments Comments: Jittery nervousness PEANUTS 03/04/2005 9 - Itching Date Reviewed: 05/22/2020 Reviewed by: Nick Houser RN - Fully Assessed Reason for Visit: Stress Incontinence [1453] Primary Visit Diagnosis:Female stress incontinence [N39.3] Prescriptions as of 05/22/2020 Sig: NEBULIZER ACCESSORIES MISC 1 Each once daily. ALBUTEROL SULFATE 2.5 MG/3 ML* Use 3 mL via nebulizer every * DEPEND UNDERWEAR FOR WOMEN XL 1 Each every 3 hours as neede* ONDANSETRON HCL 4 MG TABLET Take 1 tablet by mouth every * AMITRIPTYLINE 25 MG TABLET Take 1 tablet by mouth daily * CITALOPRAM 20 MG TABLET Take 1 tablet by mouth once d* INCRUSE ELLIPTA 62.5 MCG/ACTU* Inhale 1 Puff as instructed o* LISINOPRIL 10 MG TABLET Take 1 tablet by mouth once d* BUPROPION XL 150 MG TAB Take 1 tablet by mouth once d* FLOVENT HFA 110 MCG/ACTUATION* Inhale 1 Puff as instructed t* LANSOPRAZOLE 15 MG CAPSULE,DE* Take 1 capsule by mouth once * CHOLECALCIFEROL (VITAMIN D3) * Take 1 capsule by mouth once * LEVOTHYROXINE 150 MCG TABLET Take 1 tablet by mouth once d* FLUTICASONE PROPIONATE 50 MCG* Use 2 Sprays in each nostril * CPAP autoCPAP 5-15 cmH2O, mask, tu* COMPOUNDED PRESCRIPTION 1 Each as needed. NEBULIZER T* COMPOUNDED PRESCRIPTION 1 Device every 4 hours as nee* COMPOUNDED PRESCRIPTION Nebulizer for albuterol every* ALBUTEROL SULFATE HFA 90 MCG/* Inhale 2 Puffs as instructed * TIZANIDINE 4 MG TABLET Take 1 tablet by mouth twice * Patient not taking: Reported on 04/03/2020 PREDNISONE 10 MG TABLET 20 mg every AM x 3 days, then* Patient not taking: Reported on 04/03/2020 OLOPATADINE 0.1 % EYE DROPS Use 1 Drop in both eyes twice* Patient not taking: Reported on 04/03/2020 CROMOLYN 4 % EYE DROPS Use 1 Drop in both eyes four * Patient not taking: Reported on 04/03/2020 FUROSEMIDE 20 MG TABLET Take 1 tablet by mouth twice * Problem List As Of Date 05/22/2020 Noted Resolved Anxiety [F41.9] 07/08/2019 Allergic rhinitis [J30.9] BENIGN HYPERTENSION [I10] ADJUSTMENT DISORDER WITH DEPRESSED MOOD [F43.21]07/02/2006 Contact dermatitis and other eczema, due to uns*11/05/2006 09/26/2015 Contact dermatitis and other eczema due to othe*11/05/2006 09/26/2015 Other atopic dermatitis and related conditions *11/05/2006 09/26/2015 XEROSIS////SEBACEOUS GLAND DIS NEC [L73.8] 11/05/2006 09/26/2015 Unspecified pruritic disorder [L29.9] 11/05/2006 09/26/2015 Sciatica [M54.30] 08/11/2009 02/20/2016 Tobacco abuse [Z72.0] 03/23/2012 Hyperlipidemia LDL goal <130 [E78.5] 07/17/2015 Spondylolisthesis of lumbar region [M43.16] 07/17/2015 Disabling back pain [M54.9] 07/17/2015 TRINI (obstructive sleep apnea) [G47.33] 09/19/2015 Hypothyroidism [E03.9] 09/26/2015 Morbid obesity due to excess calories (HCC) [E6*09/26/2015 DDD (degenerative disc disease), lumbar [M51.36]02/28/2016 Spondylosis of lumbar region without myelopathy*02/28/2016 GERD without esophagitis [K21.9] 02/04/2017 Mucopurulent chronic bronchitis (HCC) [J41.1] 06/04/2017 Osteoarthritis of spine with radiculopathy, lum*06/17/2017 Tympanic membrane perforation, right [H72.91] 06/18/2017 Chronic bilateral thoracic back pain [M54.6, G8*08/14/2017 Shortness of breath [R06.02] 12/29/2017 01/02/2018 Tinea pedis of both feet [B35.3] 02/04/2019 Generalized anxiety disorder with panic attacks*02/04/2019 DDD (degenerative disc disease), cervical [M50.*06/11/2019 Vitamin D deficiency [E55.9] 08/25/2019 Other instructions from your clinician: POST PROCEDURE INSTRUCTIONS Santy Raza May 22, 2020 ? Increase your fluid intake. ? FOLLOW UP APPOINTMENT: 06/02/20 at 8:00 with Brice Woodson in the [address] [place] [address] office. ? WHEN TO CALL THE DOCTOR: ? If you develop fever (over 101 degrees) or chills. ? If you cannot urinate or empty your bladder. ? If you develop symptoms of a urinary tract infection such as burning or pain with urination, increased frequency of urination or foul smelling urine ? If you have any other questions or problems. Office phone number; [phone] Encounter Status:Closed by NICK HOUSER RN on 05/22/20 [facility] PROGRESSon 05-22-2020 PROGRESS HNO ID: [id number] Author: Nick Houser RN Service: ? Author Type: ? Type: Progress Notes Filed: 05/23/2020 6:53 AM Note Text: Santy Raza [id number] 1960 May 22, 2020 Diagnoses: Stress urinary incontinence UA done: No Procedure Performed: Multichannel urodynamic testing including multichannel cystometrogram, uroflowmetry, pressure voiding study and EMG. Procedure: The patient verified medications and allergies. The procedure was explained to the patient. Immediately prior to the test the patient was given Lidocaine 2% jelly 6 ml to urethra and Macrobid 100 mg #1 by mouth per order. UNIVERSAL PROTOCOL / SAFETY CHECKLIST Procedure to be performed: Urodynamics Sign in Communication: Completed Time Out: Team Confirms the Correct Patient, Correct Procedure, Correct Site and Site Marking, Correct Position (if applicable), Prep and Dry Time (if applicable). Time: 1000 Affirmation of Time Out: N/A Sign Out Discussion: Completed Urodynamic Findings: Uroflow : Patient arrived with a ace catheter- No. Patient voided 91 ml; Curve: Intermittent Post void residual 60 ml QMAX 7.9 ; QAVG 1.2 . Cystometrogram: The patient had a cystometrogram EMG: Yes First Sensation 156 ml First desire 209 ml Strong Desire 217 ml Capacity 226 ml The patient did not leak with cough. no destrusor contractions Instability associated with urge: No Instability associated with leakage: No Stress test: Leak with Cough large Was patient assessed for VLPP: YES Leak point pressure testing 191 and 180 cmH2O Baseline 49 Subtracted leak point pressure 142 and 131 cmH2O Reduced Stress Test: N/A. There was no evidence of prolapse Pressure-Flow Voiding Study: EMG: Yes Void 204 ml; Curve: Intermittent Post void residual: 5ml Maximum detrusor pressure 52.3 Cm H20 Maximum flow rate: 8.1 ml/sec Average flow rate: 2.5 ml/sec Pressure at peak flow: 79.8 UDS notes: N/A Plan: Will follow up with provider to discuss results and plan of care. Patient tolerated the procedure well. Home going instructions given. Patient able to repeat back understanding of instructions. Nick Houser RN cc: Joel Woodson MD ADDENDUM ASSESSMENT: Filling and Storage: Bladder sensation is normal without bladder pain, without urgency and with normal detrusor function. Bladder capacity is reduced. 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 Voiding: Overall voiding function is normal. Urine flow is continuous with a smooth flow curve. Detrusor function during voiding is normal with a normal postvoid residual. Electromyography: Provocative maneuvers produced appropriate changes in waveforms. The EMG shows increased EMG activity with increased intraabdominal pressure. There was a decrease in the EMG activity during voiding consistent with normal function of the pelvic floor. PLAN: Plan for mid-urethral sling and cystoscopy. Pt has preoperative appointment on 06/02/2020 to sign consent form. Joel Woodson MD [facility] Cornelius 08-20-2019 CNPN Telephone (NESLFV) SANTY RAZA ([id number]) 1960 F Date Time Provider Department 08/20/19 KISHORE MORALES (CONTENT MANAGEMENT CONSULTANT) [facility] During your visit today, we recorded the following information about you: Kishore Morales APRN.KHURRAM 08/20/2019 12:48 PM Signed Vitamin D results are very low. Vitamin D 50,000 units to be taken twice per week (I.e Friday/Friday) for 8 weeks. Take 2,000 units OTC daily after completion of prescription. Forwarding TSH results to Dr Oneal for management. Carley Patel RN 08/20/2019 2:28 PM Signed Results AND plan sent via . Allergies As of Date: 08/20/2019 Noted Allergy Reaction CODFISH [Other] 03/04/2005 9 - Itching DOXYCYCLINE MONOHYDRATE 07/10/2016 11 - Vomiting HCTZ [Other] 03/04/2005 9 - Itching LEVAQUIN (LEVOFLOXACIN) 03/04/2005 14 - Other: See Comments Comments: Jittery nervousness PEANUTS 03/04/2005 9 - Itching Date Reviewed: 08/19/2019 Reviewed by: Kishore ([facility]) Carmen - Fully Assessed Reason for Visit: Results [95] Order(s):cholecalciferol, Vitamin D3, (VITAMIN D3) 1,250 mcg (50,000 unit) cap capsuleTake 1 capsule by mouth two times a week.Disp: 16 capsuleRfl: 0 Prescriptions as of 08/20/2019 Sig: CHOLECALCIFEROL (VITAMIN D3) * Take 1 capsule by mouth two t* FUROSEMIDE 20 MG TABLET Take 1 tablet by mouth twice * LEVOTHYROXINE 125 MCG TABLET Take 1 tablet by mouth once d* AMITRIPTYLINE 25 MG TABLET Take 1 tablet by mouth daily * LISINOPRIL 5 MG TABLET Take 1 tablet by mouth once d* CITALOPRAM 20 MG TABLET Take 1 tablet by mouth once d* UMECLIDINIUM 62.5 MCG/ACTUATI* Inhale 1 Puff as instructed o* ALBUTEROL SULFATE 2.5 MG/3 ML* Use 3 mL via nebulizer every * ETODOLAC 400 MG TABLET Take 1 tablet by mouth twice * FLUTICASONE PROPIONATE 50 MCG* Use 2 Sprays in each nostril * CPAP autoCPAP 5-15 cmH2O, mask, tu* LANSOPRAZOLE 15 MG CAPSULE,DE* Take 1 capsule by mouth once * TIZANIDINE 4 MG TABLET Take 1 tablet by mouth twice * BECLOMETHASONE DIPROP 80 MCG/* Inhale 1 Puff as instructed t* COMPOUNDED PRESCRIPTION 1 Each as needed. 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.21]07/02/2006 Contact dermatitis and other eczema, due to uns*11/05/2006 09/26/2015 Contact dermatitis and other eczema due to othe*11/05/2006 09/26/2015 Other atopic dermatitis and related conditions *11/05/2006 09/26/2015 XEROSIS////SEBACEOUS GLAND DIS NEC [L73.8] 11/05/2006 09/26/2015 Unspecified pruritic disorder [L29.9] 11/05/2006 09/26/2015 Sciatica [M54.30] 08/11/2009 02/20/2016 Tobacco abuse [Z72.0] 03/23/2012 Hyperlipidemia LDL goal <130 [E78.5] 07/17/2015 Spondylolisthesis of lumbar region [M43.16] 07/17/2015 Disabling back pain [M54.9] 07/17/2015 TRINI (obstructive sleep apnea) [G47.33] 09/19/2015 Hypothyroidism [E03.9] 09/26/2015 Morbid obesity due to excess calories (HCC) [E6*09/26/2015 DDD (degenerative disc disease), lumbar [M51.36]02/28/2016 Spondylosis of lumbar region without myelopathy*02/28/2016 GERD without esophagitis [K21.9] 02/04/2017 Mucopurulent chronic bronchitis (HCC) [J41.1] 06/04/2017 Osteoarthritis of spine with radiculopathy, lum*06/17/2017 Tympanic membrane perforation, right [H72.91] 06/18/2017 Chronic bilateral thoracic back pain [M54.6, G8*08/14/2017 Shortness of breath [R06.02] 12/29/2017 01/02/2018 Tinea pedis of both feet [B35.3] 02/04/2019 Generalized anxiety disorder with panic attacks*02/04/2019 DDD (degenerative disc disease), cervical [M50.*06/11/2019 Prescriptions ordered this encounter Disp Refills Start End CHOLECALCIFEROL (VITAMIN D3) 1,250 M* 16 c* 0 08/20/2019 Route: ORAL Sig: Take 1 capsule by mouth two times a week. Encounter Status:Closed by CARELY PATEL RN on 08/20/19 Normal [facility] Vital Signs Date Time Vital Sign Value Performing Clinician Facility 02-07-2025 10:23-0400 Body mass index (BMI) [Ratio] 52.25 kg/m2 Deloris Chavez APRN.CONTENT MANAGEMENT CONSULTANT Work Phone: [facility] 02-07-2025 10:23-0400 Body weight 142.43 kg Deloris Chavez GLASS MECHANIC.CONTENT MANAGEMENT CONSULTANT Work Phone: [facility] 02-07-2025 10:23-0400 Diastolic blood pressure 82 mm[Hg] Deloris Chavez GLASS MECHANIC.CONTENT MANAGEMENT CONSULTANT Work Phone: [facility] 02-07-2025 10:23-0400 Heart rate 76 /min Deloris Chavez GLASS MECHANIC.CONTENT MANAGEMENT CONSULTANT Work Phone: [facility] 02-07-2025 10:23-0400 Respiratory rate 16 /min Deloris Chavez GLASS MECHANIC.CONTENT MANAGEMENT CONSULTANT Work Phone: [facility] 02-07-2025 10:23-0400 SaO2% (BldA) [Mass fraction] 97 % Deloris Chavez GLASS MECHANIC.CONTENT MANAGEMENT CONSULTANT Work Phone: [facility] 02-07-2025 10:23-0400 Systolic blood pressure 129 mm[Hg] Deloris Chavez GLASS MECHANIC.CONTENT MANAGEMENT CONSULTANT Work Phone: [facility] 01-31-2025 09:45-0400 Body temperature 97.6 [degF] Deloris Chavez [employer]CTIONS OFFICER-C Work Phone: [facility] 01-31-2025 09:45-0400 Diastolic blood pressure 75 mm[Hg] Deloris Chavez YOU[employer] CORRECTIONS OFFICER-C Work Phone: [facility] 01-31-2025 09:45-0400 Heart rate 69 /min Deloris Chavez YOU[employer] CORRECTIONS OFFICER-C Work Phone: [facility] 01-31-2025 09:45-0400 Respiratory rate 16 /min Deloris Chavez YOU[employer] CORRECTIONS OFFICER-C Work Phone: [facility] 01-31-2025 09:45-0400 SaO2% (BldA) [Mass fraction] 94 % Deloris Haagen YOU[employer] CORRECTIONS OFFICER-C Work Phone: 3(171)315-734552 [place] [address] 01-31-2025 09:45-0400 Systolic blood pressure 105 mm[Hg] Deloris Haagen YOU[employer]RECTIONS OFFICER-C Work Phone: 0(489)640-782452 [place] [address] 01-31-2025 09:35-0400 Inhaled oxygen flow rate 2 L/min Deloris Haagen [employer]RECTIONS OFFICER-C Work Phone: 8(477)328-366652 [place] [address] 01-31-2025 08:49-0400 Body height 165.1 cm Deloris Haagen YOU[employer]RECTIONS OFFICER-C Work Phone: 7(120)611-134752 [place] [address] 01-31-2025 08:49-0400 Body mass index (BMI) [Ratio] 52.4 kg/m2 Deloris Haagen YOU[employer]RECTIONS OFFICER-C Work Phone: 6(775)816-544352 [place] [address] 01-31-2025 08:49-0400 Body weight 143.1 kg Deloris Haagen YOU[employer] CORRECTIONS OFFICER-C Work Phone: 2(158)163-686752 [place] [address] 10-04-2024 13:45-0400 Body temperature 97.3 [degF] Deloris Haagen YOU[employer] CORRECTIONS OFFICER-C Work Phone: 3(915)674-388752 [place] [address] 10-04-2024 13:45-0400 Diastolic blood pressure 63 mm[Hg] Deloris Chavez YOU[employer]RECTIONS OFFICER-C Work Phone: 7(353)141-282152 [place] [address] 10-04-2024 13:45-0400 Heart rate 78 /min Deloris Haagen YOU[employer]RECTIONS OFFICER-C Work Phone: 2(048)664-756052 [place] [address] 10-04-2024 13:45-0400 Inhaled oxygen flow rate 2 L/min Deloris Haagen YOU[employer] CORRECTIONS OFFICER-C Work Phone: 7(388)806-422452 [place] [address] 10-04-2024 13:45-0400 Respiratory rate 20 /min Deloris Haagen YOU[employer] CORRECTIONS OFFICER-C Work Phone: 8(451)775-514152 [place] [address] 10-04-2024 13:45-0400 SaO2% (BldA) [Mass fraction] 96 % Deloris Fanagen YOU[employer] CORRECTIONS OFFICER-C Work Phone: 9(332)631-002552 [place] [address] 10-04-2024 13:45-0400 Systolic blood pressure 99 mm[Hg] Deloris Haagen YOU[employer]RECTIONS OFFICER-C Work Phone: 7(417)859-958552 [place] [address] 10-04-2024 09:18-0400 Body height 165.1 cm Deloris Haagen YOU[employer] CORRECTIONS OFFICER-C Work Phone: 2(264)461-444552 [place] [address] 10-04-2024 09:18-0400 Body mass index (BMI) [Ratio] 51.7 kg/m2 Deloris Haagen YOU[employer]RECTIONS OFFICER-C Work Phone: 7(960)204-634152 [place] [address] 10-04-2024 09:18-0400 Body weight 141 kg Deloris Haagen YOU[employer] CORRECTIONS OFFICER-C Work Phone: 0(652)666-218652 [place] [address] 09-17-2024 13:25-0400 Body mass index (BMI) [Ratio] 51.7 kg/m2 Deloris Haagen YOU[employer] CORRECTIONS OFFICER-C Work Phone: 4(830)151-142452 [place] [address] 09-17-2024 13:25-0400 Body temperature 97.2 [degF] Deloris Haagen YOU[employer] CORRECTIONS OFFICER-C Work Phone: 0(442)224-212752 [place] [address] 09-17-2024 13:25-0400 Body weight 141.06 kg Deloris Haagen YOU[employer] CORRECTIONS OFFICER-C Work Phone: 1(746)508-955052 [place] [address] 09-17-2024 13:25-0400 Diastolic blood pressure 64 mm[Hg] Deloris Haagen YOU[employer] CORRECTIONS OFFICER-C Work Phone: 9(121)889-508252 [place] [address] 09-17-2024 13:25-0400 Heart rate 84 /min Deloris Haagen YOU[employer] CORRECTIONS OFFICER-C Work Phone: 4(018)420-527452 [place] [address] 09-17-2024 13:25-0400 Inhaled oxygen flow rate 2 L/min Deloris Haagen YOU[employer] CORRECTIONS OFFICER-C Work Phone: 9(639)460-588752 [place] [address] 09-17-2024 13:25-0400 Respiratory rate 19 /min Deloris Haagen YOU[employer] CORRECTIONS OFFICER-C Work Phone: 2(768)373-764252 [place] [address] 09-17-2024 13:25-0400 SaO2% (BldA) [Mass fraction] 97 % Deloris Haagen YOU[employer] CORRECTIONS OFFICER-C Work Phone: [facility] 09-17-2024 13:25-0400 Systolic blood pressure 131 mm[Hg] Deloris Chavez YOU[employer] CORRECTIONS OFFICER-C Work Phone: [facility] 09-14-2024 07:44-0400 Diastolic blood pressure 84 mm[Hg] Deloris Chavez GLASS MECHANIC.CONTENT MANAGEMENT CONSULTANT Work Phone: [facility] 09-14-2024 07:44-0400 Heart rate 83 /min Deloris Chavez GLASS MECHANIC.CONTENT MANAGEMENT CONSULTANT Work Phone: [facility] 09-14-2024 07:44-0400 Respiratory rate 16 /min Deloris Chavez GLASS MECHANIC.CONTENT MANAGEMENT CONSULTANT Work Phone: [facility] 09-14-2024 07:44-0400 SaO2% (BldA) [Mass fraction] 97 % Deloris Chavez GLASS MECHANIC.CONTENT MANAGEMENT CONSULTANT Work Phone: [facility] Comment on above: O2 @ 2lpm via [place] 09-14-2024 07:44-0400 Systolic blood pressure 120 mm[Hg] Deloris Chavez GLASS MECHANIC.CONTENT MANAGEMENT CONSULTANT Work Phone: [facility] 09-01-2024 09:17-0400 Body height 165.1 cm Deloris Chavez YOU[employer] CORRECTIONS OFFICER-C Work Phone: [facility] 09-01-2024 09:17-0400 Body mass index (BMI) [Ratio] 51.7 kg/m2 Deloris Chavez YOU[employer] CORRECTIONS OFFICER-C Work Phone: [facility] 09-01-2024 09:17-0400 Body temperature 97.8 [degF] Deloris Chavez YOU[employer] CORRECTIONS OFFICER-C Work Phone: [facility] 09-01-2024 09:17-0400 Body weight 141.06 kg Deloris Chavez YOU[employer] CORRECTIONS OFFICER-C Work Phone: [facility] 09-01-2024 09:17-0400 Diastolic blood pressure 76 mm[Hg] Deloris Chavez YOU[employer] CORRECTIONS OFFICER-C Work Phone: [facility] 09-01-2024 09:17-0400 Heart rate 83 /min Deloris Haagen YOU[employer] CORRECTIONS OFFICER-C Work Phone: [facility] 09-01-2024 09:17-0400 Respiratory rate 18 /min Deloris Haagen YOU[employer] CORRECTIONS OFFICER-C Work Phone: [facility] 09-01-2024 09:17-0400 SaO2% (BldA) [Mass fraction] 94 % Deloris Haagen YOU[employer] CORRECTIONS OFFICER-C Work Phone: 8(715)702-224652 [place] [address] 09-01-2024 09:17-0400 Systolic blood pressure 124 mm[Hg] Deloris Haagen YOU[employer] CORRECTIONS OFFICER-C Work Phone: 8(087)660-014452 [place] [address] 08-30-2024 09:39-0400 Body height 165.1 cm Deloris Haagen YOUTH CORRECTIONS OFFICER-C Work Phone: 5(562)738-008752 [place] [address] 08-30-2024 09:39-0400 Body mass index (BMI) [Ratio] 52 kg/m2 Deloris Haagen YOU[employer] CORRECTIONS OFFICER-C Work Phone: 5(849)262-958252 [place] [address] 08-30-2024 09:39-0400 Body temperature 98.4 [degF] Deloris Haagen YOUTH CORRECTIONS OFFICER-C Work Phone: 5(089)618-261452 [place] [address] 08-30-2024 09:39-0400 Body weight 142 kg Deloris Haagen YOU[employer] CORRECTIONS OFFICER-C Work Phone: 7(528)113-575052 [place] [address] 08-30-2024 09:39-0400 Diastolic blood pressure 83 mm[Hg] Deloris Haagen YOU[employer] CORRECTIONS OFFICER-C Work Phone: 2(316)816-999152 [place] [address] 08-30-2024 09:39-0400 Heart rate 101 /min Deloris Haagen YOU[employer] CORRECTIONS OFFICER-C Work Phone: 3(128)755-430852 [place] [address] 08-30-2024 09:39-0400 Respiratory rate 16 /min Deloris Haagen YOU[employer] CORRECTIONS OFFICER-C Work Phone: 5(124)404-766852 [place] [address] 08-30-2024 09:39-0400 SaO2% (BldA) [Mass fraction] 94 % Deloris Haagen YOU[employer] CORRECTIONS OFFICER-C Work Phone: 1(872)805-581652 [place] [address] 08-30-2024 09:39-0400 Systolic blood pressure 145 mm[Hg] Deloris Chavez YOU[employer] CORRECTIONS OFFICER-C Work Phone: [facility] 08-23-2024 09:23-0400 Body mass index (BMI) [Ratio] 51.25 kg/m2 Deloris Cahvez GLASS MECHANIC.CONTENT MANAGEMENT CONSULTANT Work Phone: [facility] 08-23-2024 09:23-0400 Body weight 139.71 kg Deloris Chavez GLASS MECHANIC.CONTENT MANAGEMENT CONSULTANT Work Phone: [facility] 08-23-2024 09:23-0400 Diastolic blood pressure 72 mm[Hg] Deloris Chavez GLASS MECHANIC.CONTENT MANAGEMENT CONSULTANT Work Phone: [facility] 08-23-2024 09:23-0400 Heart rate 84 /min Deloris Chavez GLASS MECHANIC.CONTENT MANAGEMENT CONSULTANT Work Phone: [facility] 08-23-2024 09:23-0400 Respiratory rate 20 /min Deloris Chavez GLASS MECHANIC.CONTENT MANAGEMENT CONSULTANT Work Phone: [facility] 08-23-2024 09:23-0400 SaO2% (BldA) [Mass fraction] 97 % Deloris Chavez GLASS MECHANIC.CONTENT MANAGEMENT CONSULTANT Work Phone: [facility] 08-23-2024 09:23-0400 Systolic blood pressure 120 mm[Hg] Deloris Chavez GLASS MECHANIC.CONTENT MANAGEMENT CONSULTANT Work Phone: [facility] 08-19-2024 09:09-0500 Body height 165.1 cm Dony Flor PA-C Work Phone: [facility] 08-19-2024 09:09-0500 Body mass index (BMI) [Ratio] 52 kg/m2 Dony Flor PA-C Work Phone: [facility] 08-19-2024 09:09-0500 Body temperature 98.1 [degF] Dony Flor PA-C Work Phone: [facility] 08-19-2024 09:09-0500 Body weight 141.75 kg Dony Flor PA-C Work Phone: [facility] 08-19-2024 09:09-0500 Diastolic blood pressure 61 mm[Hg] Donyzahida Contrerasaugh PA-C Work Phone: [facility] 08-19-2024 09:09-0500 Heart rate 83 /min Donyzahida Contrerasaugh PA-C Work Phone: [facility] 08-19-2024 09:09-0500 Respiratory rate 22 /min Dony Benaugh PA-C Work Phone: [facility] 08-19-2024 09:09-0500 SaO2% (BldA) [Mass fraction] 96 % Donyzahida Contrerasaugh PA-C Work Phone: [facility] 08-19-2024 09:09-0500 Systolic blood pressure 115 mm[Hg] Dony Benaugh PA-C Work Phone: [facility] 06-21-2024 12:45-0500 Body temperature 98.1 [degF] Deloris Haagen YOU[employer] CORRECTIONS OFFICER-C Work Phone: [facility] 06-21-2024 12:45-0500 Diastolic blood pressure 67 mm[Hg] Deloris Haagen YOU[employer] CORRECTIONS OFFICER-C Work Phone: [facility] 06-21-2024 12:45-0500 Heart rate 79 /min Deloris Haagen YOU[employer] CORRECTIONS OFFICER-C Work Phone: [facility] 06-21-2024 12:45-0500 Respiratory rate 16 /min Deloris Haagen YOUTH CORRECTIONS OFFICER-C Work Phone: [facility] 06-21-2024 12:45-0500 SaO2% (BldA) [Mass fraction] 97 % Deloris Haagen YOUTH CORRECTIONS OFFICER-C Work Phone: [facility] 06-21-2024 12:45-0500 Systolic blood pressure 110 mm[Hg] Deloris Haagen YOUTH CORRECTIONS OFFICER-C Work Phone: [facility] 06-21-2024 11:37-0500 Body mass index (BMI) [Ratio] 51.3 kg/m2 Deloris Haagen YOUTH CORRECTIONS OFFICER-C Work Phone: [facility] 06-21-2024 11:37-0500 Body weight 139.9 kg Deloris Chavez YOU[employer] CORRECTIONS OFFICER-C Work Phone: [facility] 06-02-2024 09:31-0500 Body mass index (BMI) [Ratio] 50.02 kg/m2 Yarely Athy PA-C Work Phone: [facility] 06-02-2024 09:31-0500 Body temperature 98.49 [degF] Yarely Athy PA-C Work Phone: [facility] 06-02-2024 09:31-0500 Body weight 140.5 kg Yarely Athy PA-C Work Phone: [facility] 06-02-2024 09:31-0500 Diastolic blood pressure 78 mm[Hg] Yarely Athy PA-C Work Phone: [facility] 06-02-2024 09:31-0500 Heart rate 80 /min Yarely Athy PA-C Work Phone: [facility] 06-02-2024 09:31-0500 Respiratory rate 18 /min Yarely Athy PA-C Work Phone: [facility] 06-02-2024 09:31-0500 SaO2% (BldA) [Mass fraction] 97 % Yarely Athy PA-C Work Phone: [facility] 06-02-2024 09:31-0500 Systolic blood pressure 110 mm[Hg] Yarely Athy PA-C Work Phone: [facility] 04-30-2024 13:41-0500 Body mass index (BMI) [Ratio] 50.23 kg/m2 Kathy Suppan GLASS MECHANIC.CONTENT MANAGEMENT CONSULTANT Work Phone: [facility] 04-30-2024 13:41-0500 Body weight 141.1 kg Kathy Suppan GLASS MECHANIC.CONTENT MANAGEMENT CONSULTANT Work Phone: [facility] 04-30-2024 13:41-0500 Diastolic blood pressure 82 mm[Hg] Kathy Suppan GLASS MECHANIC.CONTENT MANAGEMENT CONSULTANT Work Phone: [facility] 04-30-2024 13:41-0500 Heart rate 88 /min Kathy Suppan GLASS MECHANIC.CONTENT MANAGEMENT CONSULTANT Work Phone: [facility] 04-30-2024 13:41-0500 SaO2% (BldA) [Mass fraction] 97 % Kathy Suppan GLASS MECHANIC.CONTENT MANAGEMENT CONSULTANT Work Phone: [facility] Comment on above: wears 2 L/min 04-30-2024 13:41-0500 Systolic blood pressure 138 mm[Hg] Kathy Suppan GLASS MECHANIC.CONTENT MANAGEMENT CONSULTANT Work Phone: [facility] 04-19-2024 08:32-0500 Body mass index (BMI) [Ratio] 49.58 kg/m2 Deloris Haagen GLASS MECHANIC.CONTENT MANAGEMENT CONSULTANT Work Phone: [facility] 04-19-2024 08:32-0500 Body weight 139.25 kg Deloris Haagen GLASS MECHANIC.CONTENT MANAGEMENT CONSULTANT Work Phone: [facility] 04-19-2024 08:32-0500 Diastolic blood pressure 86 mm[Hg] Deloris Haagen GLASS MECHANIC.CONTENT MANAGEMENT CONSULTANT Work Phone: [facility] 04-19-2024 08:32-0500 Heart rate 79 /min Deloris Haagen GLASS MECHANIC.CONTENT MANAGEMENT CONSULTANT Work Phone: [facility] 04-19-2024 08:32-0500 Respiratory rate 16 /min Deloris Haagen GLASS MECHANIC.CONTENT MANAGEMENT CONSULTANT Work Phone: [facility] 04-19-2024 08:32-0500 SaO2% (BldA) [Mass fraction] 90 % Deloris Haagen GLASS MECHANIC.CONTENT MANAGEMENT CONSULTANT Work Phone: [facility] 04-19-2024 08:32-0500 Systolic blood pressure 128 mm[Hg] Deloris Haagen GLASS MECHANIC.CONTENT MANAGEMENT CONSULTANT Work Phone: [facility] 04-14-2024 11:05-0400 Body mass index (BMI) [Ratio] 49.77 kg/m2 Alexa ARMANDO Work Phone: [facility] 04-14-2024 11:05-0400 Body temperature 98.29 [degF] Krislyn Aberegg PA Work Phone: [facility] 04-14-2024 11:05-0400 Body weight 139.8 kg Krislyn Aberegg PA Work Phone: [facility] 04-14-2024 11:05-0400 Diastolic blood pressure 78 mm[Hg] Krislyn Aberegg PA Work Phone: [facility] 04-14-2024 11:05-0400 Heart rate 96 /min Krislyn Aberegg PA Work Phone: [facility] 04-14-2024 11:05-0400 Respiratory rate 18 /min Krislyn Aberegg PA Work Phone: [facility] 04-14-2024 11:05-0400 SaO2% (BldA) [Mass fraction] 95 % Krislyn Aberegg PA Work Phone: [facility] 04-14-2024 11:05-0400 Systolic blood pressure 120 mm[Hg] Krislyn Aberegg PA Work Phone: [facility] 02-25-2024 08:15-0400 Body temperature 97.9 [degF] Deloris Haagen GLASS MECHANIC.CONTENT MANAGEMENT CONSULTANT Work Phone: [facility] 02-25-2024 08:15-0400 Diastolic blood pressure 80 mm[Hg] Deloris Haagen GLASS MECHANIC.CONTENT MANAGEMENT CONSULTANT Work Phone: [facility] 02-25-2024 08:15-0400 Heart rate 70 /min Deloris Haagen GLASS MECHANIC.CONTENT MANAGEMENT CONSULTANT Work Phone: [facility] 02-25-2024 08:15-0400 Respiratory rate 16 /min Deloris Haagen GLASS MECHANIC.CONTENT MANAGEMENT CONSULTANT Work Phone: [facility] 02-25-2024 08:15-0400 SaO2% (BldA) [Mass fraction] 95 % Deloris Haagen GLASS MECHANIC.CONTENT MANAGEMENT CONSULTANT Work Phone: [facility] 02-25-2024 08:15-0400 Systolic blood pressure 124 mm[Hg] Deloris Haagen GLASS MECHANIC.CONTENT MANAGEMENT CONSULTANT Work Phone: [facility] 02-23-2024 11:00-0400 Body height 165.1 cm NIDAL CHOUJAA DO [facility] 02-23-2024 11:00-0400 Body temperature 98.06 [degF] NIDAL CHOUJAA DO [facility] 02-23-2024 11:00-0400 Body weight 136.4 kg NIDAL CHOUJAA DO [facility] 02-23-2024 11:00-0400 Diastolic Blood Pressure Non-Invasive 78 mm[Hg] NIDAL CHOUJAA DO [facility] 02-23-2024 11:00-0400 Heart rate 78 /min NIDAL CHOUJAA DO [facility] 02-23-2024 11:00-0400 Respiratory rate 18 /min NIDAL CHOUJAA DO [facility] 02-23-2024 11:00-0400 Systolic Blood Pressure Non-Invasive 152 mm[Hg] NIDAL CHOUJAA DO [facility] 02-17-2024 08:20-0400 Diastolic blood pressure 84 mm[Hg] Deloris Haagen GLASS MECHANIC.CONTENT MANAGEMENT CONSULTANT Work Phone: [facility] 02-17-2024 08:20-0400 Heart rate 76 /min Deloris Haagen GLASS MECHANIC.CONTENT MANAGEMENT CONSULTANT Work Phone: [facility] 02-17-2024 08:20-0400 Respiratory rate 16 /min Deloris Haagen GLASS MECHANIC.CONTENT MANAGEMENT CONSULTANT Work Phone: [facility] 02-17-2024 08:20-0400 SaO2% (BldA) [Mass fraction] 91 % Deloris Haagen GLASS MECHANIC.CONTENT MANAGEMENT CONSULTANT Work Phone: [facility] 02-17-2024 08:20-0400 Systolic blood pressure 120 mm[Hg] Edloris Haagen GLASS MECHANIC.CONTENT MANAGEMENT CONSULTANT Work Phone: [facility] 01-21-2024 10:30-0400 Body mass index (BMI) [Ratio] 49.74 kg/m2 Deloris Haagen GLASS MECHANIC.CONTENT MANAGEMENT CONSULTANT Work Phone: [facility] 01-21-2024 10:30-0400 Body weight 139.71 kg Deloris Haagen GLASS MECHANIC.CONTENT MANAGEMENT CONSULTANT Work Phone: [facility] 01-21-2024 09:57-0400 Diastolic blood pressure 88 mm[Hg] Deloris Haagen GLASS MECHANIC.CONTENT MANAGEMENT CONSULTANT Work Phone: [facility] 01-21-2024 09:57-0400 Heart rate 78 /min Deloris Haagen GLASS MECHANIC.CONTENT MANAGEMENT CONSULTANT Work Phone: [facility] 01-21-2024 09:57-0400 Respiratory rate 16 /min Deloris Haagen GLASS MECHANIC.CONTENT MANAGEMENT CONSULTANT Work Phone: [facility] 01-21-2024 09:57-0400 SaO2% (BldA) [Mass fraction] 91 % Deloris Haagen GLASS MECHANIC.CONTENT MANAGEMENT CONSULTANT Work Phone: [facility] 01-21-2024 09:57-0400 Systolic blood pressure 130 mm[Hg] Deloris Haagen GLASS MECHANIC.CONTENT MANAGEMENT CONSULTANT Work Phone: [facility] 12-24-2023 07:58-0400 Body mass index (BMI) [Ratio] 49.74 kg/m2 Deloris Haagen GLASS MECHANIC.CONTENT MANAGEMENT CONSULTANT Work Phone: [facility] 12-24-2023 07:58-0400 Body weight 139.71 kg Deloris Haagen GLASS MECHANIC.CONTENT MANAGEMENT CONSULTANT Work Phone: [facility] 12-24-2023 07:58-0400 Diastolic blood pressure 78 mm[Hg] Deloris Haagen GLASS MECHANIC.CONTENT MANAGEMENT CONSULTANT Work Phone: [facility] 12-24-2023 07:58-0400 Heart rate 76 /min Deloris Haagen GLASS MECHANIC.CONTENT MANAGEMENT CONSULTANT Work Phone: [facility] 12-24-2023 07:58-0400 Respiratory rate 16 /min Deloris Haagen GLASS MECHANIC.CONTENT MANAGEMENT CONSULTANT Work Phone: [facility] 12-24-2023 07:58-0400 SaO2% (BldA) [Mass fraction] 96 % Deloris Haagen GLASS MECHANIC.CONTENT MANAGEMENT CONSULTANT Work Phone: [facility] 12-24-2023 07:58-0400 Systolic blood pressure 110 mm[Hg] Deloris Haagen GLASS MECHANIC.CONTENT MANAGEMENT CONSULTANT Work Phone: [facility] 12-12-2023 17:08-0400 Body mass index (BMI) [Ratio] 50.02 kg/m2 Tito Ann GLASS MECHANIC.CONTENT MANAGEMENT CONSULTANT Work Phone: [facility] 12-12-2023 17:08-0400 Body temperature 98.29 [degF] Tito Ann GLASS MECHANIC.CONTENT MANAGEMENT CONSULTANT Work Phone: [facility] 12-12-2023 17:08-0400 Body weight 140.5 kg Tito Ann GLASS MECHANIC.CONTENT MANAGEMENT CONSULTANT Work Phone: [facility] 12-12-2023 17:08-0400 Diastolic blood pressure 82 mm[Hg] Tito Ann GLASS MECHANIC.CONTENT MANAGEMENT CONSULTANT Work Phone: [facility] 12-12-2023 17:08-0400 Heart rate 69 /min Tito Ann GLASS MECHANIC.CONTENT MANAGEMENT CONSULTANT Work Phone: [facility] 12-12-2023 17:08-0400 Respiratory rate 16 /min Tito Pendleely GLASS MECHANIC.CONTENT MANAGEMENT CONSULTANT Work Phone: [facility] 12-12-2023 17:08-0400 SaO2% (BldA) [Mass fraction] 95 % Tito Ann GLASS MECHANIC.CONTENT MANAGEMENT CONSULTANT Work Phone: [facility] 12-12-2023 17:08-0400 Systolic blood pressure 144 mm[Hg] Tito Ann GLASS MECHANIC.CONTENT MANAGEMENT CONSULTANT Work Phone: [facility] 11-12-2023 09:03-0400 Body mass index (BMI) [Ratio] 48.61 kg/m2 Deloris Chavez GLASS MECHANIC.CONTENT MANAGEMENT CONSULTANT Work Phone: [facility] 11-12-2023 09:03-0400 Body weight 136.53 kg Deloris Chavez GLASS MECHANIC.CONTENT MANAGEMENT CONSULTANT Work Phone: [facility] 11-12-2023 09:03-0400 Diastolic blood pressure 82 mm[Hg] Deloris Haagen GLASS MECHANIC.CONTENT MANAGEMENT CONSULTANT Work Phone: [facility] 11-12-2023 09:03-0400 Heart rate 81 /min Deloris Haagen GLASS MECHANIC.CONTENT MANAGEMENT CONSULTANT Work Phone: [facility] 11-12-2023 09:03-0400 Respiratory rate 16 /min Deloris Haagen GLASS MECHANIC.CONTENT MANAGEMENT CONSULTANT Work Phone: [facility] 11-12-2023 09:03-0400 SaO2% (BldA) [Mass fraction] 92 % Deloris Haagen GLASS MECHANIC.CONTENT MANAGEMENT CONSULTANT Work Phone: [facility] 11-12-2023 09:03-0400 Systolic blood pressure 128 mm[Hg] Deloris Haperla GLASS MECHANIC.CONTENT MANAGEMENT CONSULTANT Work Phone: [facility] 09-01-2023 08:11-0400 Diastolic blood pressure 74 mm[Hg] Deloris Haagen GLASS MECHANIC.CONTENT MANAGEMENT CONSULTANT Work Phone: [facility] 09-01-2023 08:11-0400 Heart rate 91 /min Deloris Haagen GLASS MECHANIC.CONTENT MANAGEMENT CONSULTANT Work Phone: [facility] 09-01-2023 08:11-0400 Respiratory rate 16 /min Deloris Haagen GLASS MECHANIC.CONTENT MANAGEMENT CONSULTANT Work Phone: [facility] 09-01-2023 08:11-0400 SaO2% (BldA) [Mass fraction] 93 % Deloris Haagen GLASS MECHANIC.CONTENT MANAGEMENT CONSULTANT Work Phone: [facility] 09-01-2023 08:11-0400 Systolic blood pressure 122 mm[Hg] Deloris Chavez APRN.CONTENT MANAGEMENT CONSULTANT Work Phone: [facility] 08-24-2023 15:05-0400 Heart rate 86 /min DR ALEK IRVIN MD [address] 08-24-2023 14:28-0400 Blood Pressure Cuff Size DR ALEK IRVIN MD [address] 08-24-2023 14:28-[address] ALEK IRVIN MD [address] 08-24-2023 14:28-[address] ALEK IRVIN MD [address] 08-24-2023 14:28-0400 Body temperature 98.06 [degF] DR ALEK IRVIN MD [address] 08-24-2023 14:28-0400 Diastolic Blood Pressure Non-Invasive 45 mm[Hg] DR ALEK IRVIN MD [address] 08-24-2023 14:28-0400 Heart rate 76 /min DR ALEK IRVIN MD [address] 08-24-2023 14:28-0400 Mean blood pressure 76 mm[Hg] DR ALEK IRVIN MD [address] 08-24-2023 14:28-0400 Reason For Taking VItal Signs DR ALEK IRVIN MD [address] 08-24-2023 14:28-0400 Respiratory rate 16 /min DR ALEK IRVIN MD [address] 08-24-2023 14:28-0400 Systolic Blood Pressure Non-Invasive 127 mm[Hg] DR ALEK IRVIN MD [address] 08-24-2023 11:39-0400 Body temperature 98.42 [degF] DR ALEK IRVIN MD [address] 08-24-2023 11:39-0400 Diastolic Blood Pressure Non-Invasive 50 mm[Hg] DR ALEK IRVIN MD [address] [place] [address] 08-24-2023 11:39-0400 Heart rate 81 /min DR ALEK IRVIN MD [address] [place] [address] 08-24-2023 11:39-0400 Mean blood pressure 62 mm[Hg] DR ALEK IRVIN MD [address] [place] [address] 08-24-2023 11:39-0400 Reason For Taking VItal Signs DR ALEK IRVIN MD [address] [place] [address] 08-24-2023 11:39-0400 Respiratory rate 18 /min DR ALEK IRVIN MD [address] [place] [address] 08-24-2023 11:39-0400 Systolic Blood Pressure Non-Invasive 103 mm[Hg] DR ALEK IRVIN MD [address] [place] [address] 08-24-2023 08:10-0400 Body temperature 98.06 [degF] DR ALEK IRVIN MD [address] [place] [address] 08-24-2023 08:10-0400 Diastolic Blood Pressure Non-Invasive 90 mm[Hg] DR ALEK IRVIN MD [address] [place] [address] 08-24-2023 08:10-0400 Reason For Taking VItal Signs DR ALEK IRVIN MD [address] [place] [address] 08-24-2023 08:10-0400 Respiratory rate 20 /min DR ALEK IRVIN MD [address] [place] [address] 08-24-2023 08:10-0400 Systolic Blood Pressure Non-Invasive 152 mm[Hg] DR ALEK IRVIN MD [address] [place] [address] 08-24-2023 01:29-0500 Body height [address] ALEK IRVIN MD [facility] 08-24-2023 01:29-0500 Body weight 139.[address] ALEK IRVIN MD [facility] 08-24-2023 01:29-0500 Body weight 48.24 kg/m2 DR ALEK IRVIN MD [facility] 08-24-2023 01:19-0500 Heart rate 78 /min DR ALEK IRVIN MD [facility] 08-24-2023 01:19-0500 Mean blood pressure 89 mm[Hg] DR ALEK IRVIN MD [facility] 08-23-2023 23:54-0500 Diastolic Blood Pressure Non-Invasive 65 mm[Hg] MALGORZATA KYLEESKA DO [facility] 08-23-2023 23:54-0500 Heart rate 74 /min MALGORZATA DURESKA DO [facility] 08-23-2023 23:54-0500 Respiratory rate 18 /min MALGORZATA DURESKA DO [facility] 08-23-2023 23:54-0500 Systolic Blood Pressure Non-Invasive 105 mm[Hg] MALGORZATA DURESKA DO [facility] 08-23-2023 18:59-0500 Blood Pressure Cuff Size MALGORZATA DURESKA DO [facility] 08-23-2023 18:59-0500 Blood Pressure Location MALGORZATA DURESKA DO [facility] 08-23-2023 18:59-0500 Blood Pressure Method MALGORZATA DURESKA DO [facility] 08-23-2023 18:59-0500 Diastolic Blood Pressure Non-Invasive 70 mm[Hg] MALGORZATA DURESKA DO [facility] 08-23-2023 18:59-0500 Heart rate 76 /min MALGORZATA DURESKA DO [facility] 08-23-2023 18:59-0500 Respiratory rate 18 /min MALGORZATA DURESKA DO [facility] 08-23-2023 18:59-0500 Systolic Blood Pressure Non-Invasive 126 mm[Hg] MALGORZATA DURESKA DO [facility] 08-23-2023 18:05-0500 Blood Pressure Cuff Size MALGORZATA DURESKA DO [facility] 08-23-2023 18:05-0500 Blood Pressure Location MALGORZATA DURESKA DO [facility] 08-23-2023 18:05-0500 Blood Pressure Method MALGORZATA DURESKA DO [facility] 08-23-2023 18:05-0500 Body temperature 98.06 [degF] MALGORZATA DURESKA DO [facility] 08-23-2023 18:05-0500 Diastolic Blood Pressure Non-Invasive 81 mm[Hg] MALGORZATA DURESKA DO [facility] 08-23-2023 18:05-0500 Heart rate 83 /min MALGORZATA DURESKA DO [facility] 08-23-2023 18:05-0500 Respiratory rate 18 /min MALGORZATA DURESKA DO [facility] 08-23-2023 18:05-0500 Systolic Blood Pressure Non-Invasive 124 mm[Hg] MALGORZATA OLVERA DO [facility] 08-07-2023 08:59-0500 Body weight 136.99 kg Johanna Tannhof GLASS MECHANIC.CONTENT MANAGEMENT CONSULTANT Work Phone: [facility] 08-07-2023 08:59-0500 Diastolic blood pressure 66 mm[Hg] Johanna Tannhof GLASS MECHANIC.CONTENT MANAGEMENT CONSULTANT Work Phone: [facility] 08-07-2023 08:59-0500 Heart rate 79 /min Johanna Tannhof GLASS MECHANIC.CONTENT MANAGEMENT CONSULTANT Work Phone: [facility] 08-07-2023 08:59-0500 Respiratory rate 16 /min Johanna Tannhof GLASS MECHANIC.CONTENT MANAGEMENT CONSULTANT Work Phone: [facility] 08-07-2023 08:59-0500 SaO2% (BldA) [Mass fraction] 95 % Johanna Tannhof GLASS MECHANIC.CONTENT MANAGEMENT CONSULTANT Work Phone: [facility] 08-07-2023 08:59-0500 Systolic blood pressure 124 mm[Hg] Johanna Tannhof GLASS MECHANIC.CONTENT MANAGEMENT CONSULTANT Work Phone: [facility] 08-06-2023 09:19-0500 Body temperature 98.01 [degF] Haley Praisler-Wood GLASS MECHANIC.CONTENT MANAGEMENT CONSULTANT Work Phone: [facility] 08-06-2023 09:19-0500 Body weight 137.44 kg Haley Praisler-Wood GLASS MECHANIC.CONTENT MANAGEMENT CONSULTANT Work Phone: [facility] 08-06-2023 09:19-0500 Diastolic blood pressure 68 mm[Hg] Haley Praisler-Wood GLASS MECHANIC.CONTENT MANAGEMENT CONSULTANT Work Phone: [facility] 08-06-2023 09:19-0500 Heart rate 98 /min Haley Praisler-Wood GLASS MECHANIC.CONTENT MANAGEMENT CONSULTANT Work Phone: [facility] 08-06-2023 09:19-0500 Respiratory rate 18 /min Haley Praisler-Wood GLASS MECHANIC.CONTENT MANAGEMENT CONSULTANT Work Phone: [facility] 08-06-2023 09:19-0500 SaO2% (BldA) [Mass fraction] 96 % Haley Pateller-Wood GLASS MECHANIC.CONTENT MANAGEMENT CONSULTANT Work Phone: [facility] 08-06-2023 09:19-0500 Systolic blood pressure 118 mm[Hg] Haley Praisler-Wood GLASS MECHANIC.CONTENT MANAGEMENT CONSULTANT Work Phone: [facility] 05-05-2023 09:16-0500 Diastolic blood pressure 72 mm[Hg] Deloris Haagen GLASS MECHANIC.CONTENT MANAGEMENT CONSULTANT Work Phone: [facility] 05-05-2023 09:16-0500 Heart rate 69 /min Deloris Haagen GLASS MECHANIC.CONTENT MANAGEMENT CONSULTANT Work Phone: [facility] 05-05-2023 09:16-0500 Respiratory rate 16 /min Deloris Haagen GLASS MECHANIC.CONTENT MANAGEMENT CONSULTANT Work Phone: [facility] 05-05-2023 09:16-0500 SaO2% (BldA) [Mass fraction] 92 % Deloris Haagen GLASS MECHANIC.CONTENT MANAGEMENT CONSULTANT Work Phone: [facility] 05-05-2023 09:16-0500 Systolic blood pressure 114 mm[Hg] Deloris Haagen GLASS MECHANIC.CONTENT MANAGEMENT CONSULTANT Work Phone: [facility] 04-16-2023 09:20-0400 Body temperature 98.6 [degF] Tito Pendlebury GLASS MECHANIC.CONTENT MANAGEMENT CONSULTANT Work Phone: [facility] 04-16-2023 09:20-0400 Body weight 136.53 kg Tito Pendleely GLASS MECHANIC.CONTENT MANAGEMENT CONSULTANT Work Phone: [facility] 04-16-2023 09:20-0400 Diastolic blood pressure 76 mm[Hg] Tito Pendlebury GLASS MECHANIC.CONTENT MANAGEMENT CONSULTANT Work Phone: [facility] 04-16-2023 09:20-0400 Heart rate 88 /min Tito Pendlebury GLASS MECHANIC.CONTENT MANAGEMENT CONSULTANT Work Phone: [facility] 04-16-2023 09:20-0400 Respiratory rate 18 /min Tito Pendlebury GLASS MECHANIC.CONTENT MANAGEMENT CONSULTANT Work Phone: [facility] 04-16-2023 09:20-0400 SaO2% (BldA) [Mass fraction] 96 % Tito Ann GLASS MECHANIC.CONTENT MANAGEMENT CONSULTANT Work Phone: [facility] 04-16-2023 09:20-0400 Systolic blood pressure 132 mm[Hg] Tito Ann GLASS MECHANIC.CONTENT MANAGEMENT CONSULTANT Work Phone: [facility] 04-08-2023 10:27-0400 Diastolic blood pressure 70 mm[Hg] Deloris Haagen GLASS MECHANIC.CONTENT MANAGEMENT CONSULTANT Work Phone: [facility] 04-08-2023 10:27-0400 Heart rate 72 /min Deloris Haagen GLASS MECHANIC.CONTENT MANAGEMENT CONSULTANT Work Phone: [facility] 04-08-2023 10:27-0400 Respiratory rate 16 /min Deloris Haagen GLASS MECHANIC.CONTENT MANAGEMENT CONSULTANT Work Phone: [facility] 04-08-2023 10:27-0400 SaO2% (BldA) [Mass fraction] 92 % Deloris Haperla GLASS MECHANIC.CONTENT MANAGEMENT CONSULTANT Work Phone: [facility] 04-08-2023 10:27-0400 Systolic blood pressure 132 mm[Hg] Deloris Haagen GLASS MECHANIC.CONTENT MANAGEMENT CONSULTANT Work Phone: [facility] 04-08-2023 09:07-0400 Body weight 136.53 kg Gareth Domingo GLASS MECHANIC.CONTENT MANAGEMENT CONSULTANT Work Phone: [facility] 04-08-2023 09:07-0400 Diastolic blood pressure 74 mm[Hg] Gareth Domingo GLASS MECHANIC.CONTENT MANAGEMENT CONSULTANT Work Phone: [facility] 04-08-2023 09:07-0400 Heart rate 81 /min Gareth Domingo GLASS MECHANIC.CONTENT MANAGEMENT CONSULTANT Work Phone: [facility] 04-08-2023 09:07-0400 SaO2% (BldA) [Mass fraction] 94 % Gareth Domingo GLASS MECHANIC.CONTENT MANAGEMENT CONSULTANT Work Phone: [facility] 04-08-2023 09:07-0400 Systolic blood pressure 132 mm[Hg] Gareth Domingo GLASS MECHANIC.CONTENT MANAGEMENT CONSULTANT Work Phone: [facility] 03-10-2023 14:33-0400 Diastolic blood pressure 82 mm[Hg] Deloris Haagen GLASS MECHANIC.CONTENT MANAGEMENT CONSULTANT Work Phone: [facility] 03-10-2023 14:33-0400 Heart rate 77 /min Deloris Haagen GLASS MECHANIC.CONTENT MANAGEMENT CONSULTANT Work Phone: [facility] 03-10-2023 14:33-0400 Respiratory rate 16 /min Deloris Haagen GLASS MECHANIC.CONTENT MANAGEMENT CONSULTANT Work Phone: [facility] 03-10-2023 14:33-0400 SaO2% (BldA) [Mass fraction] 95 % Deloris Chavez GLASS MECHANIC.CONTENT MANAGEMENT CONSULTANT Work Phone: [facility] 03-10-2023 14:33-0400 Systolic blood pressure 138 mm[Hg] Deloris Haagen GLASS MECHANIC.CONTENT MANAGEMENT CONSULTANT Work Phone: [facility] 03-04-2023 11:05-0400 Body height 165.[address] KATIANA HEIN MD [facility] 03-04-2023 11:05-0400 Body temperature 98.42 [degF] DR KATIANA HEIN MD [facility] 03-04-2023 11:05-0400 Body weight [address] KATIANA HEIN MD [facility] 03-04-2023 11:05-0400 Diastolic Blood Pressure Non-Invasive [address] KATIANA HEIN MD [facility] 03-04-2023 11:05-0400 Heart rate 77 /min DR KATIANA HEIN MD [facility] 03-04-2023 11:05-0400 Respiratory rate 20 /min DR KATIANA HEIN MD [facility] 03-04-2023 11:05-0400 Systolic Blood Pressure Non-Invasive [address] KATIANA HEIN MD [facility] 03-02-2023 15:53-0400 Body temperature 98.42 [degF] EDINSON SANCHEZ MD [facility] 03-02-2023 15:53-0400 Diastolic Blood Pressure Non-Invasive 45 1 EDINSON SANCHEZ MD [facility] 03-02-2023 15:53-0400 Heart rate 84 /min EDINSON SANCHEZ MD [facility] 03-02-2023 15:53-0400 Mean blood pressure 63 mm[Hg] EDINSON SANCHEZ MD [facility] 03-02-2023 15:53-0400 Reason For Taking VItal Signs EDINSON SANCHEZ MD [facility] 03-02-2023 15:53-0400 Respiratory rate 19 /min EDINSON SANCHEZ MD [facility] 03-02-2023 15:53-0400 Systolic Blood Pressure Non-Invasive 123 1 EDINSON SANCHEZ MD [facility] 03-02-2023 14:41-0400 Heart rate 80 /min EDINSON SANCHEZ MD [facility] 03-02-2023 14:41-0400 Respiratory rate 21 /min EDINSON SANCHEZ MD [facility] 03-02-2023 11:42-0400 Heart rate 77 /min EDINSON SANCHEZ MD [facility] 03-02-2023 11:42-0400 Respiratory rate 18 /min EDINSON SANCHEZ MD [facility] 03-02-2023 11:00-0400 Body temperature 98.24 [degF] EDINSON SANCHEZ MD [facility] 03-02-2023 11:00-0400 Diastolic Blood Pressure Non-Invasive 66 1 EDINSON SANCHEZ MD [facility] 03-02-2023 11:00-0400 Heart rate 78 /min EDINSON SANCHEZ MD [facility] 03-02-2023 11:00-0400 Mean blood pressure 81 mm[Hg] EDINSON SANCHEZ MD [facility] 03-02-2023 11:00-0400 Systolic Blood Pressure Non-Invasive 137 1 EDINSON SANCHEZ MD [facility] 03-02-2023 07:42-0400 Heart rate 79 /min EDINSON SANCHEZ MD [facility] 03-02-2023 07:42-0400 systolic 126 mm[Hg] EDINSON SANCHEZ MD [facility] 03-02-2023 07:30-0400 Body temperature 98.42 [degF] EDINSON SANCHEZ MD [facility] 03-02-2023 07:30-0400 diastolic 46 mm[Hg] EDINSON SANCHEZ MD [facility] 03-02-2023 07:30-0400 Heart rate 70 /min EDINSON SANCHEZ MD [facility] 03-02-2023 07:30-0400 Mean blood pressure 65 mm[Hg] EDINSON SANCHEZ MD [facility] 03-02-2023 07:30-0400 Reason For Taking VItal Signs EDINSON SANCHEZ MD [facility] 03-01-2023 07:12-0400 Body height 165.1 cm EDINSON SANCHEZ MD [facility] 03-01-2023 07:12-0400 Body weight 126.5 kg EDINSON SANCHEZ MD [facility] 03-01-2023 07:12-0400 Body weight 46.41 kg/m2 EDINSON SANCHEZ MD [facility] 02-28-2023 18:30-0400 Blood Pressure Cuff Size EDINSON SANCHEZ MD [facility] 02-28-2023 18:30-0400 Blood Pressure Location EDINSON SANCHEZ MD [facility] 02-28-2023 18:30-0400 Blood Pressure Method EDINSON SANCHEZ MD [facility] 02-28-2023 18:30-0400 Body height 165.1 cm EDINSON SANCHEZ MD [facility] 02-28-2023 18:30-0400 Body weight 126.5 kg EDINSON SANCHEZ MD [facility] 02-28-2023 18:30-0400 Body weight 46.41 kg/m2 EDINSON SANCHEZ MD [facility] 02-28-2023 18:30-0400 Heart rate 86 /min EDINSON SANCHEZ MD [facility] 02-28-2023 15:57-0400 Blood Pressure Cuff Size JETHRO LYONS APRN-CONTENT MANAGEMENT CONSULTANT [facility] 02-28-2023 15:57-0400 Blood Pressure Location JETHRO LYONS APRN-CONTENT MANAGEMENT CONSULTANT [facility] 02-28-2023 15:57-0400 Blood Pressure Method JETHRO LYONS GLASS MECHANIC-CONTENT MANAGEMENT CONSULTANT [facility] 02-28-2023 15:57-0400 Diastolic Blood Pressure Non-Invasive 52 1 JETHRO LYONS GLASS MECHANIC-CONTENT MANAGEMENT CONSULTANT [facility] 02-28-2023 15:57-0400 Systolic Blood Pressure Non-Invasive 102 1 JETHROCARISSA LYONS GLASS MECHANIC-CONTENT MANAGEMENT CONSULTANT [facility] 02-28-2023 15:55-0400 Blood Pressure Cuff Size JETHRO SERENA GLASS MECHANIC-CONTENT MANAGEMENT CONSULTANT [facility] 02-28-2023 15:55-0400 Blood Pressure Location JETHRO SERENA GLASS MECHANIC-CONTENT MANAGEMENT CONSULTANT [facility] 02-28-2023 15:55-0400 Blood Pressure Method JETHROCARISSA LYONS GLASS MECHANIC-CONTENT MANAGEMENT CONSULTANT [facility] 02-28-2023 15:55-0400 Body temperature 98.06 [degF] JETHRO LYONS GLASS MECHANIC-CONTENT MANAGEMENT CONSULTANT [facility] 02-28-2023 15:55-0400 Diastolic Blood Pressure Non-Invasive 46 1 JETHRO LYONS GLASS MECHANIC-CONTENT MANAGEMENT CONSULTANT [facility] 02-28-2023 15:55-0400 Systolic Blood Pressure Non-Invasive 92 1 JETHRO LYONS GLASS MECHANIC-CONTENT MANAGEMENT CONSULTANT [facility] 02-28-2023 15:18-0400 Heart rate 84 /min JETHRO LYONS GLASS MECHANIC-CONTENT MANAGEMENT CONSULTANT [facility] 02-28-2023 15:18-0400 Respiratory rate 20 /min JETHRO LYONS GLASS MECHANIC-CONTENT MANAGEMENT CONSULTANT [facility] 02-28-2023 14:00-0400 Diastolic Blood Pressure Non-Invasive 56 1 JETHRO LYONS GLASS MECHANIC-CONTENT MANAGEMENT CONSULTANT [facility] 02-28-2023 14:00-0400 Systolic Blood Pressure Non-Invasive 100 1 JETHRO LYONS GLASS MECHANIC-CONTENT MANAGEMENT CONSULTANT [facility] 02-28-2023 09:56-0400 Heart rate 82 /min JETHRO LYONS GLASS MECHANIC-CONTENT MANAGEMENT CONSULTANT [facility] 02-28-2023 09:56-0400 Respiratory rate 20 /min JETHRO LYONS GLASS MECHANIC-CONTENT MANAGEMENT CONSULTANT [facility] 02-28-2023 09:46-0400 Body temperature 97.88 [degF] JETHRO LYONS GLASS MECHANIC-CONTENT MANAGEMENT CONSULTANT [facility] 02-28-2023 09:46-0400 Respiratory rate 20 /min JETHRO LYONS GLASS MECHANIC-CONTENT MANAGEMENT CONSULTANT [facility] 02-28-2023 09:30-0400 Heart rate 69 /min JETHRO LYONS GLASS MECHANIC-CONTENT MANAGEMENT CONSULTANT [facility] 02-28-2023 07:48-0400 Body temperature 98.24 [degF] JETHRO LYONS GLASS MECHANIC-CONTENT MANAGEMENT CONSULTANT [facility] 02-28-2023 07:48-0400 Heart rate 61 /min JETHRO LYONS GLASS MECHANIC-CONTENT MANAGEMENT CONSULTANT [facility] 02-28-2023 07:48-0400 Reason For Taking VItal Signs JETHRO LYONS GLASS MECHANIC-CONTENT MANAGEMENT CONSULTANT [facility] 02-28-2023 05:57-0400 Heart rate 73 /min JETHRO LYONS GLASS MECHANIC-CONTENT MANAGEMENT CONSULTANT [facility] 02-28-2023 03:43-0400 Reason For Taking VItal Signs JETHRO LYONS GLASS MECHANIC-CONTENT MANAGEMENT CONSULTANT [facility] 02-27-2023 23:22-0400 Reason For Taking VItal Signs JETHRO LYONS GLASS MECHANIC-CONTENT MANAGEMENT CONSULTANT [facility] 02-27-2023 15:41-0400 Heart rate 67 /min JETHRO CHAVEZITH GLASS MECHANIC-CONTENT MANAGEMENT CONSULTANT [facility] 02-27-2023 14:46-0400 Heart rate 68 /min JETHROCARISSA CHAVEZITH GLASS MECHANIC-CONTENT MANAGEMENT CONSULTANT [facility] 02-27-2023 11:28-0400 Heart rate 78 /min JETHRO LYONS GLASS MECHANIC-CONTENT MANAGEMENT CONSULTANT [facility] 02-27-2023 11:07-0400 Heart rate 81 /min JETHRO LYONS GLASS MECHANIC-CONTENT MANAGEMENT CONSULTANT [facility] 02-27-2023 03:44-0400 Body height 165.1 cm JETHRO LYONS GLASS MECHANIC-CONTENT MANAGEMENT CONSULTANT [facility] 02-27-2023 03:44-0400 Body weight 139.9 kg JETHRO LYONS GLASS MECHANIC-CONTENT MANAGEMENT CONSULTANT [facility] 02-27-2023 03:44-0400 Body weight 51.32 kg/m2 JETHRO LYONS GLASS MECHANIC-CONTENT MANAGEMENT CONSULTANT [facility] 02-27-2023 00:23-0400 Body height 165.1 cm JETHRO CHAVEZITH GLASS MECHANIC-CONTENT MANAGEMENT CONSULTANT [facility] 02-27-2023 00:23-0400 Body weight 131.8 kg JETHRO CHAVEZITH GLASS MECHANIC-CONTENT MANAGEMENT CONSULTANT [facility] 09-02-2022 08:46-0400 Heart rate 110 /min Deloris Chavez GLASS MECHANIC.CONTENT MANAGEMENT CONSULTANT Work Phone: [facility] 09-02-2022 08:46-0400 SaO2% (BldA) [Mass fraction] 96 % Deloris Chavez GLASS MECHANIC.CONTENT MANAGEMENT CONSULTANT Work Phone: [facility] 09-02-2022 08:42-0400 Body weight 132.45 kg Deloris Chavez GLASS MECHANIC.CONTENT MANAGEMENT CONSULTANT Work Phone: [facility] 09-02-2022 08:42-0400 Diastolic blood pressure 80 mm[Hg] Deloris Chavez GLASS MECHANIC.CONTENT MANAGEMENT CONSULTANT Work Phone: [facility] 09-02-2022 08:42-0400 Respiratory rate 18 /min Deloris Chavez GLASS MECHANIC.CONTENT MANAGEMENT CONSULTANT Work Phone: [facility] 09-02-2022 08:42-0400 Systolic blood pressure 118 mm[Hg] Deloris Chavez GLASS MECHANIC.CONTENT MANAGEMENT CONSULTANT Work Phone: [facility] 08-27-2022 10:34-0400 Body height 167.6 cm [facility] 08-27-2022 10:34-0400 Body weight 127.01 kg [facility] 07-23-2022 08:48-0500 Body height 167.6 cm Murray Guadarrama MD Work Phone: [facility] 07-23-2022 08:48-0500 Body weight 128.82 kg Murray Guadarrama MD Work Phone: [facility] 07-23-2022 08:48-0500 Diastolic blood pressure 82 mm[Hg] Murray Guadarrama MD Work Phone: [facility] 07-23-2022 08:48-0500 Heart rate 86 /min Murray Guadarrama MD Work Phone: [facility] 07-23-2022 08:48-0500 SaO2% (BldA) [Mass fraction] 94 % Murray Guadarrama MD Work Phone: [facility] 07-23-2022 08:48-0500 Systolic blood pressure 116 mm[Hg] Murray Guadarrama MD Work Phone: [facility] 07-22-2022 09:10-0500 Body weight 131.09 kg Johanna Chasityhof GLASS MECHANIC.CONTENT MANAGEMENT CONSULTANT Work Phone: [facility] 07-22-2022 09:10-0500 Diastolic blood pressure 72 mm[Hg] Johanna Tannhof GLASS MECHANIC.CONTENT MANAGEMENT CONSULTANT Work Phone: [facility] 07-22-2022 09:10-0500 Heart rate 86 /min Johanna Tannhof GLASS MECHANIC.CONTENT MANAGEMENT CONSULTANT Work Phone: [facility] 07-22-2022 09:10-0500 Respiratory rate 16 /min Joahnna Tannhof GLASS MECHANIC.CONTENT MANAGEMENT CONSULTANT Work Phone: [facility] 07-22-2022 09:10-0500 SaO2% (BldA) [Mass fraction] 97 % Johanna Tannhof GLASS MECHANIC.CONTENT MANAGEMENT CONSULTANT Work Phone: [facility] 07-22-2022 09:10-0500 Systolic blood pressure 110 mm[Hg] Johanna Tannhof GLASS MECHANIC.CONTENT MANAGEMENT CONSULTANT Work Phone: [facility] 07-01-2022 09:52-0500 Body temperature 98.29 [degF] Robbie Kyle MD Work Phone: [facility] 07-01-2022 09:52-0500 Body weight 131.27 kg Robbie Kyle MD Work Phone: [facility] 07-01-2022 09:52-0500 Diastolic blood pressure 72 mm[Hg] Robbie Kyle MD Work Phone: [facility] 07-01-2022 09:52-0500 Heart rate 93 /min Robbie Kyle MD Work Phone: [facility] 07-01-2022 09:52-0500 Respiratory rate 18 /min Robbie Kyle MD Work Phone: [facility] 07-01-2022 09:52-0500 SaO2% (BldA) [Mass fraction] 95 % Robbie Kyle MD Work Phone: [facility] 07-01-2022 09:52-0500 Systolic blood pressure 114 mm[Hg] Robbie Kyle MD Work Phone: [facility] 05-26-2022 18:41-0500 Diastolic Blood Pressure Non-Invasive 70 1 DONALD ARRIAZA CONTENT MANAGEMENT CONSULTANT [facility] 05-26-2022 18:41-0500 Heart rate 95 /min DONALD ARRIAZA CONTENT MANAGEMENT CONSULTANT [facility] 05-26-2022 18:41-0500 Respiratory rate 24 /min DONALD ARRIAZA CONTENT MANAGEMENT CONSULTANT [facility] 05-26-2022 18:41-0500 Systolic Blood Pressure Non-Invasive 120 1 DONALD ARRIAZA CONTENT MANAGEMENT CONSULTANT [facility] 05-26-2022 17:13-0500 Heart rate 96 /min DONALD ARRIAZA CONTENT MANAGEMENT CONSULTANT [facility] 05-26-2022 17:13-0500 Respiratory rate 24 /min DONALD ARSALAN CONTENT MANAGEMENT CONSULTANT [facility] 05-26-2022 16:01-0500 Body temperature 99.32 [degF] DONALD ARRIAZA CONTENT MANAGEMENT CONSULTANT [facility] 05-26-2022 16:01-0500 Diastolic Blood Pressure Non-Invasive 71 1 DONALD ARSALAN CONTENT MANAGEMENT CONSULTANT [facility] 05-26-2022 16:01-0500 Heart rate 106 /min DONALD ARRIAZA CONTENT MANAGEMENT CONSULTANT [facility] 05-26-2022 16:01-0500 Respiratory rate 23 /min DONALD ARRIAZA CONTENT MANAGEMENT CONSULTANT [facility] 05-26-2022 16:01-0500 Systolic Blood Pressure Non-Invasive 121 1 DONALD ARRIAZA CONTENT MANAGEMENT CONSULTANT [facility] 05-14-2022 15:09-0500 Diastolic blood pressure 82 mm[Hg] Deloris Haagen GLASS MECHANIC.CONTENT MANAGEMENT CONSULTANT Work Phone: [facility] 05-14-2022 15:09-0500 Heart rate 88 /min Deloris Haagen GLASS MECHANIC.CONTENT MANAGEMENT CONSULTANT Work Phone: [facility] 05-14-2022 15:09-0500 Respiratory rate 18 /min Deloris Haagen GLASS MECHANIC.CONTENT MANAGEMENT CONSULTANT Work Phone: [facility] 05-14-2022 15:09-0500 SaO2% (BldA) [Mass fraction] 92 % Deloris Haagen GLASS MECHANIC.CONTENT MANAGEMENT CONSULTANT Work Phone: [facility] 05-14-2022 15:09-0500 Systolic blood pressure 138 mm[Hg] Deloris Haagen GLASS MECHANIC.CONTENT MANAGEMENT CONSULTANT Work Phone: [facility] 05-08-2022 08:55-0500 Diastolic blood pressure 70 mm[Hg] Deloris Haagen GLASS MECHANIC.CONTENT MANAGEMENT CONSULTANT Work Phone: [facility] 05-08-2022 08:55-0500 Heart rate 89 /min Deloris Haagen GLASS MECHANIC.CONTENT MANAGEMENT CONSULTANT Work Phone: [facility] 05-08-2022 08:55-0500 Respiratory rate 18 /min Deloris Haagen GLASS MECHANIC.CONTENT MANAGEMENT CONSULTANT Work Phone: [facility] 05-08-2022 08:55-0500 SaO2% (BldA) [Mass fraction] 92 % Deloris Haagen GLASS MECHANIC.CONTENT MANAGEMENT CONSULTANT Work Phone: [facility] 05-08-2022 08:55-0500 Systolic blood pressure 104 mm[Hg] Deloris Haagen GLASS MECHANIC.CONTENT MANAGEMENT CONSULTANT Work Phone: [facility] 04-12-2022 11:36-0400 Body temperature 97.5 [degF] Yarely Galvan PA-C Work Phone: [facility] 04-12-2022 11:36-0400 Body weight 129.28 kg Yarely Galvan PA-C Work Phone: [facility] 04-12-2022 11:36-0400 Diastolic blood pressure 76 mm[Hg] Yarely Athy PA-C Work Phone: [facility] 04-12-2022 11:36-0400 Heart rate 90 /min Yarely Athy PA-C Work Phone: [facility] 04-12-2022 11:36-0400 Respiratory rate 18 /min Yarely Athy PA-C Work Phone: [facility] 04-12-2022 11:36-0400 SaO2% (BldA) [Mass fraction] 96 % Yarely Athy PA-C Work Phone: [facility] 04-12-2022 11:36-0400 Systolic blood pressure 138 mm[Hg] Yarely Athy PA-C Work Phone: [facility] 01-16-2022 11:35-0400 Diastolic blood pressure 82 mm[Hg] Deloris Haagen GLASS MECHANIC.CONTENT MANAGEMENT CONSULTANT Work Phone: [facility] 01-16-2022 11:35-0400 Heart rate 102 /min Deloris Haagen GLASS MECHANIC.CONTENT MANAGEMENT CONSULTANT Work Phone: [facility] 01-16-2022 11:35-0400 Respiratory rate 18 /min Deloris Haagen GLASS MECHANIC.CONTENT MANAGEMENT CONSULTANT Work Phone: [facility] 01-16-2022 11:35-0400 SaO2% (BldA) [Mass fraction] 95 % Deloris Chavez GLASS MECHANIC.CONTENT MANAGEMENT CONSULTANT Work Phone: [facility] 01-16-2022 11:35-0400 Systolic blood pressure 124 mm[Hg] Deloris Haagen GLASS MECHANIC.CONTENT MANAGEMENT CONSULTANT Work Phone: [facility] 11-06-2021 07:01-0400 Body weight 127.01 kg Dorothy Perales APRN.CONTENT MANAGEMENT CONSULTANT Work Phone: [facility] 11-06-2021 07:01-0400 Diastolic blood pressure 60 mm[Hg] Dorothy Perales APRN.CONTENT MANAGEMENT CONSULTANT Work Phone: [facility] 11-06-2021 07:01-0400 Systolic blood pressure 100 mm[Hg] Dorothy Perales GLASS MECHANIC.CONTENT MANAGEMENT CONSULTANT Work Phone: [facility] 10-22-2021 09:14-0400 Body weight 127.91 kg Deloris Haperla GLASS MECHANIC.CONTENT MANAGEMENT CONSULTANT Work Phone: [facility] 10-22-2021 09:14-0400 Diastolic blood pressure 76 mm[Hg] Deloris Haagen GLASS MECHANIC.CONTENT MANAGEMENT CONSULTANT Work Phone: [facility] 10-22-2021 09:14-0400 Heart rate 82 /min Deloris Haagen GLASS MECHANIC.CONTENT MANAGEMENT CONSULTANT Work Phone: [facility] 10-22-2021 09:14-0400 Respiratory rate 18 /min Deloris Haagen GLASS MECHANIC.CONTENT MANAGEMENT CONSULTANT Work Phone: [facility] 10-22-2021 09:14-0400 SaO2% (BldA) [Mass fraction] 92 % Deloris Fanagen GLASS MECHANIC.CONTENT MANAGEMENT CONSULTANT Work Phone: [facility] 10-22-2021 09:14-0400 Systolic blood pressure 118 mm[Hg] Deloris Haagen GLASS MECHANIC.CONTENT MANAGEMENT CONSULTANT Work Phone: [facility] 09-25-2021 14:20-0400 Body temperature 97.5 [degF] Yarely Athy PA-C Work Phone: [facility] 09-25-2021 14:20-0400 Body weight 128.1 kg Yarely Athy PA-C Work Phone: [facility] 09-25-2021 14:20-0400 Diastolic blood pressure 76 mm[Hg] Yarely Athy PA-C Work Phone: [facility] 09-25-2021 14:20-0400 Heart rate 81 /min Yarely Athy PA-C Work Phone: [facility] 09-25-2021 14:20-0400 Respiratory rate 21 /min Yarely Athy PA-C Work Phone: [facility] 09-25-2021 14:20-0400 SaO2% (BldA) [Mass fraction] 95 % Yarely Athy PA-C Work Phone: [facility] 09-25-2021 14:20-0400 Systolic blood pressure 118 mm[Hg] Yarely Galvan PA-C Work Phone: [facility] Encounters Encounter Date Encounter Type Care Provider Facility Start: 04-21-2025 End: 04-21-2025 [facility] Start: 04-18-2025 End: 04-18-2025 ambulatory [facility] Facility:[facility] Start: 04-04-2025 End: 04-04-2025 ambulatory [facility] Facility:[facility] Start: 03-31-2025 End: 03-31-2025 ambulatory [facility] Facility:[facility] Start: 03-30-2025 End: 03-30-2025 ambulatory [facility] Facility:[facility] Start: 03-28-2025 End: 03-28-2025 ambulatory [facility] Facility:[facility] Start: 03-16-2025 End: 03-16-2025 ambulatory [facility] Facility:[facility] Start: 03-09-2025 End: 03-09-2025 ambulatory [facility] Facility:[facility] Start: 02-25-2025 End: 02-28-2025 Telephone encounter Deloris Chavez APRN.CONTENT MANAGEMENT CONSULTANT Work Phone: [facility] Comment on above: Power wheel chair Start: 02-11-2025 End: 02-18-2025 Telephone encounter Deloris Chavez APRN.CONTENT MANAGEMENT CONSULTANT Work Phone: [facility] Comment on above: PT records Start: 02-11-2025 End: 02-11-2025 Discharged Recurring Deloris Chavez [employer]RE[employer] OFFICER-C -Physical Therapy Work Phone: Start: 02-11-2025 End: 02-11-2025 ambulatory Deloris Chavez [employer] OFFICER-C Work Phone: -Physical Therapy Start: 02-08-2025 End: 02-08-2025 Refill Deloris Chavez GLASS MECHANIC.CONTENT MANAGEMENT CONSULTANT Work Phone: [facility] [place] Comment on above: Refill Request Start: 02-07-2025 End: 02-07-2025 Office outpatient visit 25 minutes Deloris Chavez APRN.CNP Work Phone: [facility] Comment on above: Impaired gait and mo bility (Primary Dx); Mucopurulent chronic bronchitis (HCC); Medication management; Anxiety; Current moderate episode of major depressive disorder without prior episode (HCC); Class 3 severe obesity with body mass index (BMI) of 50.0 to 59.9 in adult, unspecified obesity type, unspecified whether serious comorbidity present (HCC) Start: 02-07-2025 End: 02-07-2025 ambulatory DELORIS CHAVEZ Facility:[facility] Start: 02-04-2025 End: 02-04-2025 Telephone encounter Deloris Chavez APRN.CNP Work Phone: [facility] Comment on above: Orders Start: 02-02-2025 End: 02-02-2025 Orders Only Gareth Domingo APRN.CONTENT MANAGEMENT CONSULTANT Work Phone: Pulmonary [facility] Comment on above: Encounter for screen ing for lung cancer (Primary Dx); Former tobacco use Start: 01-31-2025 End: 01-31-2025 Admission to same day surgery center Dr. Tito Felipe MD -[facility] Start: 01-31-2025 End: 02-01-2025 ambulatory Deloris Chavez [employer] OFFICER-C Work Phone: -[facility] Comment on above: Good morning Start: 01-24-2025 End: 01-24-2025 Telephone encounter Deloris Chavez APRN.CNP Work Phone: [facility] Comment on above: pt information Start: 01-13-2025 End: 01-14-2025 ambulatory Deloris Chavez APRN.CNP Work Phone: [facility] Comment on above: Hi Deloris Start: 01-06-2025 End: 01-07-2025 ambulatory Deloris Chavez APRN.CNP Work Phone: [facility] Comment on above: Hi Start: 12-15-2024 End: 12-15-2024 Refill Deloris Haagen GLASS MECHANIC.CONTENT MANAGEMENT CONSULTANT Work Phone: [facility] Comment on above: Refill Request Start: 12-12-2024 End: 12-13-2024 ambulatory Deloris Haagen GLASS MECHANIC.CONTENT MANAGEMENT CONSULTANT Work Phone: [facility] Comment on above: Hi Refill Request Start: 11-27-2024 End: 11-29-2024 Refill Deloris Haagen GLASS MECHANIC.CONTENT MANAGEMENT CONSULTANT Work Phone: [facility] Comment on above: Refill Request Hi Start: 11-03-2024 End: 11-03-2024 ambulatory [facility] Facility:[facility] Start: 10-29-2024 End: 10-29-2024 Refill Deloris Haagen GLASS MECHANIC.CONTENT MANAGEMENT CONSULTANT Work Phone: [facility] Comment on above: Refill Request Start: 10-26-2024 End: 10-26-2024 Refill Curtis Ryan MD Work Phone: [facility] Comment on above: Refill Request Start: 10-22-2024 Encounter for other preprocedural examination Murray Guadarrama [facility] Start: 10-18-2024 End: 10-18-[address] Murray Guadarrama MD -[facility] Work Phone: Start: 10-18-2024 End: 10-18-2024 ambulatory [facility] Facility:[facility] Start: 10-09-2024 End: 10-11-2024 Refill Deloris Haperla GLASS MECHANIC.CONTENT MANAGEMENT CONSULTANT Work Phone: [facility] Comment on above: Refill Request Start: 10-04-2024 Non-patient / Non-visit Dr. Murray Guadarrama MD -[facility] Start: 10-04-2024 End: 10-04-2024 Admission to same day surgery center Dr. Murray Guadarrama MD -[facility] Start: 10-04-2024 End: 10-04-2024 ambulatory Delorisradha Chavez [employer] OFFICER-C Work Phone: [facility] Work Phone: Start: 09-21-2024 End: 09-21-2024 ambulatory Murray Guadarrama Facility:[facility] Start: 09-21-2024 End: 09-21-2024 Non-patient / Non-visit Dr. Terrell Deal MD -[facility] Work Phone: Start: 09-17-2024 End: 09-17-[address] Murray Guadarrama MD -[facility] Work Phone: Start: 09-17-2024 End: 09-17-2024 ambulatory [facility] Facility:[facility] Start: 09-14-2024 End: 11-14-2024 Follow-up encounter Deloris Chavez APRN.CONTENT MANAGEMENT CONSULTANT Work Phone: [facility] Start: 09-14-2024 End: 09-14-2024 Office outpatient visit 15 minutes Deloris Chavez APRN.CONTENT MANAGEMENT CONSULTANT Work Phone: [facility] Comment on above: Leukocytosis, unspec ified type (Primary Dx); Subacute cough; Encounter for immunization; Mucopurulent chronic bronchitis (HCC) Start: 09-14-2024 End: 09-14-2024 ambulatory [facility] Facility:[facility] Start: 09-13-2024 End: 09-13-2024 [facility] Facility:[facility] Start: 09-07-2024 End: 09-08-2024 Follow-up encounter Deloris Chavez APRN.CONTENT MANAGEMENT CONSULTANT Work Phone: [facility] Comment on above: Results Start: 09-06-2024 ambulatory [facility] Facility :[facility] Start: 09-06-2024 End: 09-06-2024 ambulatory [facility] Facility:[facility] Start: 09-06-2024 End: 09-06-2024 Subsequent hospital visit by physician Margarita [facility] [place] Work Phone: Radiology Comment on above: Bacterial pneumonia [J15.9] Start: 09-03-2024 End: 09-03-2024 ambulatory [facility] [employer] OFFICER-C Work Phone: [facility] Work Phone: Start: 09-03-2024 End: 09-03-[address] Murray Guadarrama MD -[facility] Work Phone: Start: 09-03-2024 End: 09-03-2024 ambulatory Murray Guadarraam Facility:[facility] Start: 09-01-2024 End: 09-01-[address] Murray Guadarrama MD -[facility] Work Phone: Start: 09-01-2024 End: 09-01-2024 ambulatory [facility] Facility:[facility] Start: 08-30-2024 End: 08-30-2024 Admission to same day surgery center Dr. Tito Felipe MD -[facility] Start: 08-30-2024 End: 08-30-2024 ambulatory Deloris Chavez [employer] OFFICER-C Work Phone: [facility] Work Phone: Start: 08-25-2024 End: 08-26-2024 Follow-up encounter Deloris Chavez APRN.CONTENT MANAGEMENT CONSULTANT Work Phone: [facility] Comment on above: Leukocytosis, unspec ified type (Primary Dx) Start: 08-24-2024 End: 08-24-2024 ambulatory [facility] Facility:[facility] Start: 08-23-2024 End: 08-23-2024 Follow-up encounter Trudy Wallace APRN.CONTENT MANAGEMENT CONSULTANT Work Phone: [facility] Start: 08-23-2024 End: 08-23-2024 Telephone encounter Trudy Wallace APRN.CONTENT MANAGEMENT CONSULTANT Work Phone: [facility] Comment on above: Medication Follow-up Start: 08-23-2024 End: 08-23-2024 Office outpatient visit 25 minutes Deloris Chavez APRN.CONTENT MANAGEMENT CONSULTANT Work Phone: [facility] Comment on above: Essential hypertensi on, benign (Primary Dx); GERD without esophagitis; Anxiety; Depression, recurrent (HCC); TRINI (obstructive sleep apnea); Hyperlipidemia LDL goal <130; Hypothyroidism, unspecified type; Mucopurulent chronic bronchitis (HCC); Bacterial pneumonia; Prediabetes Start: 08-23-2024 End: 08-25-2024 ambulatory Deloris Chavez GLASS MECHANIC.CONTENT MANAGEMENT CONSULTANT Work Phone: Family [facility] [place] Comment on above: Hi Start: 08-23-2024 End: 08-23-2024 Subsequent hospital visit by physician Xr [facility] [place] Work Phone: Radiology Comment on above: Bronchitis [J40] Start: 08-19-2024 End: 08-23-2024 Follow-up encounter Larissa Bates GLASS MECHANIC.CONTENT MANAGEMENT CONSULTANT Work Phone: [facility] Start: 08-19-2024 End: 08-19-2024 ambulatory DELORIS CHAVEZ Facility:[facility] Start: 08-19-2024 End: 08-19-2024 Patient encounter procedure Dony Flor PA-C Work Phone: [facility] Comment on above: Bronchitis (Primary Dx) Start: 08-15-2024 End: 08-16-2024 ambulatory Deloris Chavez GLASS MECHANIC.CONTENT MANAGEMENT CONSULTANT Work Phone: [facility] Comment on above: Hi Start: 08-13-2024 End: 08-16-2024 Refill Deloris Chavez GLASS MECHANIC.CONTENT MANAGEMENT CONSULTANT Work Phone: [facility] Comment on above: Refill Request Start: 08-02-2024 ambulatory Tito Felipe Facilit y:[facility] Start: 07-14-2024 End: 07-15-2024 Refill Deloris Chavez GLASS MECHANIC.CONTENT MANAGEMENT CONSULTANT Work Phone: [facility] Comment on above: Refill Request Start: 06-21-2024 End: 06-21-2024 Admission to same day surgery center Dr. Tito Felipe MD -[facility] Start: 06-21-2024 End: 06-21-2024 ambulatory Tito Felipe Facility:[facility] Start: 06-10-2024 End: 06-11-2024 ambulatory Deloris Chavez GLASS MECHANIC.CONTENT MANAGEMENT CONSULTANT Work Phone: [facility] Comment on above: Hi Start: 06-05-2024 End: 06-07-2024 Refill Kathy A Suppan GLASS MECHANIC.CONTENT MANAGEMENT CONSULTANT Work Phone: [facility] Comment on above: Refill Request Start: 06-04-2024 End: 06-04-2024 Refill Deloris Haagen GLASS MECHANIC.CONTENT MANAGEMENT CONSULTANT Work Phone: [facility] Comment on above: Refill Request Start: 06-02-2024 End: 06-02-2024 Patient encounter procedure Yarely Galvan PA-C Work Phone: [facility] Comment on above: Bronchitis (Primary Dx) Start: 06-02-2024 End: 06-02-2024 ambulatory [facility] Facility:[facility] Start: 05-03-2024 ambulatory [facility] Facility :[facility] Start: 04-30-2024 End: 04-30-2024 ambulatory KATHY A SUPPAN Facility:[facility] Start: 04-30-2024 End: 04-30-2024 Office outpatient visit 15 minutes Kathy A Suppan GLASS MECHANIC.CONTENT MANAGEMENT CONSULTANT Work Phone: [facility] Comment on above: Allergic contact vikki matitis due to other agents (Primary Dx); Cellulitis of skin; Urticaria; Wheezing Start: 04-22-2024 End: 04-22-2024 ambulatory Deloris Chavez GLASS MECHANIC.CONTENT MANAGEMENT CONSULTANT Work Phone: [facility] Comment on above: Good morning Start: 04-19-2024 End: 04-19-2024 Patient encounter procedure Deloris Haagen GLASS MECHANIC.CONTENT MANAGEMENT CONSULTANT Work Phone: [facility] Comment on above: Skin lesion (Primary Dx); Class 3 severe obesity with body mass index (BMI) of 45.0 to 49.9 in adult, unspecified obesity type, unspecified whether serious comorbidity present (HCC); Thrombocytopenia, unspecified (HCC); Mucopurulent chronic bronchitis (HCC); Medicare annual wellness visit, subsequent Start: 04-14-2024 End: 04-14-2024 Patient encounter procedure Alexa ARMANDO Work Phone: [facility] Comment on above: Rash (Primary Dx); Skin infection Start: 03-16-2024 End: 03-16-2024 ambulatory [facility] [place] Start: 03-16-2024 End: 03-16-2024 Patient encounter procedure Mary Triana MA [facility] [place] Comment on above: Population Health Na vigation Outreach ([facility] [place] /) Start: 03-14-2024 End: 03-15-2024 Refill Deloris Chavez APRN.CONTENT MANAGEMENT CONSULTANT Work Phone: Family [facility] [place] Comment on above: Refill Request Start: 03-11-2024 End: 03-11-2024 Refill Deloris Chavez APRN.CONTENT MANAGEMENT CONSULTANT Work Phone: [facility] [place] Comment on above: Med Change Request Start: 03-11-2024 End: 03-12-2024 Refill Deloris Chavez APRN.CONTENT MANAGEMENT CONSULTANT Work Phone: [facility] [place] Comment on above: Refill Request Start: 02-27-2024 End: 03-01-2024 Refill Curtis Ryan MD Work Phone: [facility] [place] Comment on above: Refill Request Start: 02-25-2024 End: 02-25-2024 Telephone encounter Deloris Chavez APRN.CONTENT MANAGEMENT CONSULTANT Work Phone: Internal Medicine [place] Comment on above: Patient Update Start: 02-25-2024 End: 02-25-2024 Office outpatient visit 25 minutes Deloris Chavez APRN.CONTENT MANAGEMENT CONSULTANT Work Phone: [facility] [place] Comment on above: Neck pain (Primary D x); Acute pain of left shoulder; Medication management; Depression, recurrent (HCC) Start: 02-23-2024 End: 02-23-2024 Emergency department patient visit JESUS TYRESE MENDEZ [facility] Start: 02-17-2024 End: 02-17-2024 Office outpatient visit 25 minutes Deloris Chavez APRN.CONTENT MANAGEMENT CONSULTANT Work Phone: [facility] [place] Comment on above: Depression, recurren t (HCC) (Primary Dx); Medication management; Anxiety; Essential hypertension, benign; Bilateral leg edema Start: 01-30-2024 End: 02-02-2024 ambulatory Deloris Chavez APRN.CNP Work Phone: [facility] [place] Comment on above: Hi Refill Request Start: 01-22-2024 ambulatory Gareth salazar GLASS MECHANIC.CONTENT MANAGEMENT CONSULTANT Work Phone: Pulmonary Medicine Start: 01-22-2024 Telephone encounter Gareth leon GLASS MECHANIC.KHURRAM Work Phone: Pulmonary Medicine Comment on above: Results Start: 01-21-2024 End: 01-21-2024 Office outpatient visit 25 minutes Deloris Chavez APRN.KHURRAM Work Phone: [facility] [place] Comment on above: Bilateral leg edema (Primary Dx); Depression, recurrent (HCC) Start: 01-16-2024 End: 01-16-2024 Subsequent hospital visit by physician Ct [facility] (I-Stat) Work Phone: Cat Scan Comment on above: Lung nodules [R91.8] Start: 01-15-2024 ambulatory Deloris Chavez APRN.CNP Work Phone: [facility] [place] Comment on above: Good Morning Start: 01-12-2024 Documentation procedure Mammog meghna Coordinator [facility] Department Start: 01-12-2024 Letter encounter Mammography Coordinator [facility] Department Start: 01-09-2024 ambulatory Deloris Chavez APRN.CNP Work Phone: [facility] [place] Comment on above: Hi Start: 01-09-2024 End: 01-09-2024 Subsequent hospital visit by physician Screen Mammo [facility] Mammogram Comment on above: Encounter for screen ing mammogram for breast cancer [Z12.31] Start: 12-28-2023 Refill Johanna Faith APRN.CNP Work Phone: General Surgery Comment on above: Refill Request Start: 12-25-2023 E-mail encounter fro m caregiver Gareth Huron GLASS MECHANIC.CONTENT MANAGEMENT CONSULTANT Work Phone: Pulmonary Medicine Start: 12-25-2023 Follow-up encounter Gareth Bruno leon GLASS MECHANIC.CONTENT MANAGEMENT CONSULTANT Work Phone: Pulmonary Medicine Comment on above: Lung Nodule Follow U p Start: 12-24-2023 End: 12-24-2023 Office outpatient visit 25 minutes Deloris Chavez GLASS MECHANIC.CONTENT MANAGEMENT CONSULTANT Work Phone: [facility] [place] Comment on above: Bilateral leg edema (Primary Dx); Wheezing; SOB (shortness of breath); Anxiety; Essential hypertension, benign; Acute otitis externa of left ear, unspecified type Start: 12-23-2023 ambulatory Haley Bagley [facility] [place] Start: 12-23-2023 [facility] encounter [facility] Comment on above: Population Health Na vigation Outreach ([facility] [place] [facility]) Start: 12-12-2023 End: 12-12-2023 Office outpatient visit 15 minutes Tito Ann GLASS MECHANIC.CONTENT MANAGEMENT CONSULTANT Work Phone: [facility] Comment on above: Leg swelling (Primar y Dx) Start: 12-12-2023 ambulatory Deloris Chavez GLASS MECHANIC.CONTENT MANAGEMENT CONSULTANT Work Phone: [facility] [place] Comment on above: Good morning Leg swelling Start: 12-08-2023 Telephone encounter Deloris duncan APRN.CONTENT MANAGEMENT CONSULTANT Work Phone: [facility] [place] Comment on above: Order Update Refill Request Start: 12-06-2023 ambulatory Deloris Chavez APRN.CONTENT MANAGEMENT CONSULTANT Work Phone: [facility] [place] Comment on above: Hi Start: 12-05-2023 Refill Deloris Chavez GLASS MECHANIC.CONTENT MANAGEMENT CONSULTANT Work Phone: [facility] [place] Comment on above: Refill Request Start: 11-29-2023 Refill Deloris Chavez GLASS MECHANIC.CONTENT MANAGEMENT CONSULTANT Work Phone: [facility] [place] Comment on above: Refill Request Start: 11-14-2023 Telephone encounter Deloris duncan APRN.CONTENT MANAGEMENT CONSULTANT Work Phone: [facility] [place] Comment on above: Results Start: 11-12-2023 ambulatory Deloris Haagen GLASS MECHANIC.CONTENT MANAGEMENT CONSULTANT Work Phone: Internal Medicine [facility] Start: 11-12-2023 End: 11-12-2023 Office outpatient visit 25 minutes Deloris Haagen GLASS MECHANIC.CONTENT MANAGEMENT CONSULTANT Work Phone: [facility] [place] Comment on above: Essential hypertensi on, benign (Primary Dx); Prediabetes; Hyperlipidemia LDL goal <130; Generalized anxiety disorder with panic attacks; Hypothyroidism, unspecified type; TRINI (obstructive sleep apnea) Start: 11-01-2023 Refill Deloris Haagen GLASS MECHANIC.CONTENT MANAGEMENT CONSULTANT Work Phone: Family [facility] [place] Comment on above: Refill Request Start: 10-21-2023 Refill Deloris Haagen GLASS MECHANIC.CONTENT MANAGEMENT CONSULTANT Work Phone: Family Medicine [place] Comment on above: Refill Request Start: 10-04-2023 Refill Curtis Ryan MD Work Phone: [facility] [place] Comment on above: Refill Request Start: 09-15-2023 Refill Deloris Haagen GLASS MECHANIC.CONTENT MANAGEMENT CONSULTANT Work Phone: Family [facility] [place] Comment on above: Refill Request Start: 09-04-2023 Refill Deloris Haagen GLASS MECHANIC.CONTENT MANAGEMENT CONSULTANT Work Phone: [facility] [place] Comment on above: Refill Request Start: 09-01-2023 End: 09-01-2023 Office outpatient visit 25 minutes Deloris Haagen GLASS MECHANIC.CONTENT MANAGEMENT CONSULTANT Work Phone: [facility] [place] Comment on above: Discomfort of chest wall (Primary Dx); Olecranon bursitis of right elbow Start: 08-26-2023 ambulatory Deloris Haagen GLASS MECHANIC.CONTENT MANAGEMENT CONSULTANT Work Phone: [facility] [place] Comment on above: Hi Start: 08-24-2023 End: 08-24-[address] ALEK IRVIN MD Facility:A Start: 08-24-2023 End: 08-24-[address] ALEK IRVIN MD [facility] Start: 08-23-2023 End: 08-24-2023 Emergency department patient visit CURTIS DASH MD Facility:B Start: 08-23-2023 End: 08-24-2023 Emergency department patient visit MALGORZATA OLVERA DO [facility] Start: 08-16-2023 Refill Deloris Chavez GLASS MECHANIC.CONTENT MANAGEMENT CONSULTANT Work Phone: [facility] [place] Comment on above: Refill Request Start: 08-15-2023 ambulatory Deloris Chavez GLASS MECHANIC.CONTENT MANAGEMENT CONSULTANT Work Phone: [facility] [place] Comment on above: Hi Start: 08-08-2023 ambulatory Johanna Faith APRN.CONTENT MANAGEMENT CONSULTANT Work Phone: [facility] [place] Comment on above: Nausea Start: 08-07-2023 End: 08-07-2023 Patient encounter procedure Johanna Faith APRN.CONTENT MANAGEMENT CONSULTANT Work Phone: [facility] [place] Comment on above: Nausea (Primary Dx); GERD without esophagitis Start: 08-06-2023 End: 08-06-2023 Subsequent hospital visit by physician Xr [facility] [place] Work Phone: Radiology Comment on above: Elbow swelling, righ t [M25.421] Start: 08-06-2023 End: 08-06-2023 Patient encounter procedure Haley Seaman APRN.CONTENT MANAGEMENT CONSULTANT Work Phone: [facility] Comment on above: Elbow swelling, righ t (Primary Dx); Olecranon bursitis of right elbow Start: 07-28-2023 Refill Deloris Chavez GLASS MECHANIC.CONTENT MANAGEMENT CONSULTANT Work Phone: [facility] [place] Comment on above: Refill Request Start: 05-05-2023 End: 05-05-2023 Office outpatient visit 25 minutes Deloris Chavez GLASS MECHANIC.CONTENT MANAGEMENT CONSULTANT Work Phone: [facility] [place] Comment on above: Sinobronchitis (Prim rody Dx); Mucopurulent chronic bronchitis (HCC) Start: 05-02-2023 ambulatory Deloris Haagen GLASS MECHANIC.CONTENT MANAGEMENT CONSULTANT Work Phone: [facility] [place] Comment on above: Hi Start: 05-01-2023 ambulatory Deloris Haagen GLASS MECHANIC.CONTENT MANAGEMENT CONSULTANT Work Phone: [facility] [place] Comment on above: Good morning Start: 04-22-2023 ambulatory Deloris Haagen GLASS MECHANIC.CONTENT MANAGEMENT CONSULTANT Work Phone: [facility] [place] Comment on above: Good morning Start: 04-21-2023 Refill Yuval Mckeon on PA-C Work Phone: [facility] [place] Comment on above: Refill Request Start: 04-18-2023 Refill Deloris Haagen GLASS MECHANIC.CONTENT MANAGEMENT CONSULTANT Work Phone: [facility] [place] Comment on above: Refill Request Start: 04-16-2023 Refill Deloris Haagen GLASS MECHANIC.CONTENT MANAGEMENT CONSULTANT Work Phone: [facility] [place] Comment on above: Refill Request Medication Problem Start: 04-16-2023 End: 04-16-2023 Office outpatient visit 15 minutes Tito Ann GLASS MECHANIC.CONTENT MANAGEMENT CONSULTANT Work Phone: [facility] Comment on above: Otorrhea, bilateral (Primary Dx) Start: 04-15-2023 End: 06-03-2023 ambulatory MD MARCUS FELIPE Facility:B Start: 04-15-2023 End: 06-03-2023 Physical therapy management MARCUS FELIPE [facility] Start: 04-11-2023 Telephone encounter Tayla Au RN Pulmonary Medicine Comment on above: FILM REQ-HARPSTER Start: 04-09-2023 Refill Deloris Brunoagen GLASS MECHANIC.CONTENT MANAGEMENT CONSULTANT Work Phone: [facility] [place] Comment on above: Refill Request Start: 04-08-2023 End: 04-08-2023 Office outpatient visit 15 minutes Deloris Chavez GLASS MECHANIC.CONTENT MANAGEMENT CONSULTANT Work Phone: [facility] [place] Comment on above: Bacterial pneumonia (Primary Dx); Depression, recurrent (HCC) Start: 04-08-2023 End: 04-08-2023 Patient encounter procedure Gareth Domingo GLASS MECHANIC.CONTENT MANAGEMENT CONSULTANT Work Phone: Pulmonary Medicine Comment on above: Encounter for screen ing for lung cancer (Primary Dx); Former cigarette smoker; Pneumonia of right middle lobe due to infectious organism Start: 04-04-2023 Telephone encounter Deloris duncan APRN.CONTENT MANAGEMENT CONSULTANT Work Phone: [facility] [place] Comment on above: Results Start: 04-03-2023 Refill Deloris Chavez GLASS MECHANIC.CONTENT MANAGEMENT CONSULTANT Work Phone: [facility] [place] Comment on above: Refill Request Start: 04-02-2023 End: 04-02-2023 Subsequent hospital visit by physician Xr [facility] [place] Work Phone: Radiology Comment on above: Bacterial pneumonia [J15.9] Start: 03-10-2023 End: 03-10-2023 Office outpatient visit 25 minutes Deloris Chavez APRN.CONTENT MANAGEMENT CONSULTANT Work Phone: [facility] [place] Comment on above: Bacterial pneumonia (Primary Dx); Mucopurulent chronic bronchitis (HCC); Tobacco abuse Start: 03-04-2023 Refill Deloris Chavez APRN.CONTENT MANAGEMENT CONSULTANT Work Phone: [facility] [place] Comment on above: Refill Request Start: 03-04-2023 End: 03-04-2023 Emergency department patient visit DR KATIANA HEIN MD Facility:[facility] Start: 03-04-2023 End: 03-04-2023 Emergency department patient visit DR KATIANA HEIN MD [facility] Start: 02-28-2023 End: 03-02-2023 Evaluation and management of inpatient EDINSON SANCHEZ MD Facility:A Start: 02-28-2023 End: 03-02-2023 Evaluation and management of inpatient EDINSON SANCHEZ MD [facility] Start: 02-27-2023 End: 02-28-2023 Evaluation and management of inpatient DELORIS CHAVEZ APRN-CONTENT MANAGEMENT CONSULTANT Facility:B Start: 02-27-2023 End: 02-28-2023 Evaluation and management of inpatient JETHRO LYONS GLASS MECHANIC-CONTENT MANAGEMENT CONSULTANT [facility] Start: 02-19-2023 Telephone encounter Deloris duncan GLASS MECHANIC.CONTENT MANAGEMENT CONSULTANT Work Phone: [facility] [place] Comment on above: Immunizations Start: 02-10-2023 ambulatory Deloris Chavez GLASS MECHANIC.CONTENT MANAGEMENT CONSULTANT Work Phone: [facility] [place] Comment on above: Question Start: 02-09-2023 Refill Deloris Chavez GLASS MECHANIC.CONTENT MANAGEMENT CONSULTANT Work Phone: [facility] [place] Comment on above: Refill Request Start: 02-07-2023 Telephone encounter Deloris duncan GLASS MECHANIC.CONTENT MANAGEMENT CONSULTANT Work Phone: [facility] [place] Comment on above: Results Start: 02-05-2023 Telephone encounter Deloris duncan GLASS MECHANIC.CONTENT MANAGEMENT CONSULTANT Work Phone: [facility] [place] Comment on above: Results Start: 02-02-2023 Refill Deloris Chavez GLASS MECHANIC.CONTENT MANAGEMENT CONSULTANT Work Phone: Family [facility] [place] Comment on above: Refill Request Start: 01-29-2023 End: 01-30-2023 ambulatory DELORIS CHAVEZ Facility:[facility] Start: 01-22-2023 Refill Deloris Chavez GLASS MECHANIC.CONTENT MANAGEMENT CONSULTANT Work Phone: Family [facility] [place] Comment on above: Med Change Request Start: 01-17-2023 ambulatory Deloris Chavez GLASS MECHANIC.CONTENT MANAGEMENT CONSULTANT Work Phone: [facility] [place] Comment on above: Blood test Start: 01-12-2023 Refill Johanna Faith GLASS MECHANIC.CONTENT MANAGEMENT CONSULTANT Work Phone: General Surgery Comment on above: Refill Request Start: 12-26-2022 Refill Deloris Chavez GLASS MECHANIC.CONTENT MANAGEMENT CONSULTANT Work Phone: [facility] [place] Comment on above: Refill Request Start: 12-04-2022 ambulatory Deloris Chavez GLASS MECHANIC.CONTENT MANAGEMENT CONSULTANT Work Phone: Family [facility] [place] Comment on above: Good afternoon Start: 11-27-2022 Telephone encounter Deloris duncan APRN.CONTENT MANAGEMENT CONSULTANT Work Phone: [facility] [place] Comment on above: form/missing signatu re Start: 10-12-2022 End: 10-12-2022 Emergency department patient visit MALATHI SINGER MD Facility: Start: 10-10-2022 End: 10-10-2022 Subsequent hospital visit by physician Screen Mammo [facility] Mammogram Comment on above: Encounter for screen ing mammogram for breast cancer [Z12.31] Start: 10-02-2022 Refill Deloris Chavez APRN.CONTENT MANAGEMENT CONSULTANT Work Phone: [facility] [place] Comment on above: Refill Request Start: 09-29-2022 Refill Deloris Chavez APRN.CONTENT MANAGEMENT CONSULTANT Work Phone: [facility] [place] Comment on above: Refill Request Start: 09-26-2022 End: 09-26-2022 Patient encounter procedure Murray Guadarrama MD Work Phone: General Surgery Comment on above: Non-recurrent abdomi nal hernia without obstruction or gangrene, unspecified hernia type (Primary Dx) Start: 09-11-2022 End: 09-11-2022 Patient encounter procedure Murray Guadarrama MD Work Phone: General Surgery Comment on above: Non-recurrent abdomi nal hernia without obstruction or gangrene, unspecified hernia type (Primary Dx) Refill Request Start: 09-05-2022 End: 09-06-2022 ambulatory [facility] Facility:[facility] Start: 09-02-2022 End: 09-02-2022 Subsequent hospital visit by physician Xr [facility] [place] Work Phone: Radiology Comment on above: SOB (shortness of br eath) [R06.02] Start: 09-02-2022 End: 09-02-2022 Office outpatient visit 25 minutes Deloris Chavez APRN.CONTENT MANAGEMENT CONSULTANT Work Phone: [facility] [place] Comment on above: SOB (shortness of br eath) (Primary Dx); Mucopurulent chronic bronchitis (HCC); Essential hypertension, benign; Morbid obesity with BMI of 45.0-49.9, adult (HCC); Thrombocytopenia, unspecified (HCC) Start: 08-29-2022 End: 08-29-2022 Nursing evaluation of patient and report In Nurse Work Phone: [facility] [place] Comment on above: Pre-op evaluation (P rimary Dx) Start: 08-29-2022 End: 08-29-2022 Preprocedural examination done In Nurse Work Phone: [facility] [place] Start: 08-27-2022 End: 08-27-2022 [facility]est[facility] Comment on above: Pre-op evaluation (P rimary Dx); BMI 45.0-49.9, adult (HCC); Generalized anxiety disorder with panic attacks; Hypothyroidism, unspecified type; GERD without esophagitis; TRINI (obstructive sleep apnea); Essential hypertension, benign; Mucopurulent chronic bronchitis (HCC) Lab work and EKG Start: 08-27-2022 End: 08-27-2022 Preprocedural examination done [facility]est[facility] Start: 08-20-2022 Refill Deloris Haagen GLASS MECHANIC.CONTENT MANAGEMENT CONSULTANT Work Phone: [facility] [place] Comment on above: Refill Request Start: 08-15-2022 Refill Deloris Haagen GLASS MECHANIC.CONTENT MANAGEMENT CONSULTANT Work Phone: [facility] [place] Comment on above: Refill Request Start: 08-09-2022 Refill Deloris Haperla GLASS MECHANIC.CONTENT MANAGEMENT CONSULTANT Work Phone: [facility] Comment on above: Refill Request Start: 08-08-2022 End: 08-08-2022 Orders Only Murray Guadarrama MD Work Phone: General Surgery Comment on above: Ventral hernia witho ut obstruction or gangrene (Primary Dx) Non-recurrent abdomi nal hernia without obstruction or gangrene, unspecified hernia type (Primary Dx) Start: 08-06-2022 End: 08-06-2022 Subsequent hospital visit by physician Ct Prep [facility] Cat Scan Comment on above: Non-recurrent abdomi nal hernia without obstruction or gangrene, unspecified hernia type [K46.9] Start: 07-23-2022 End: 07-23-2022 Patient encounter procedure Murray Guadarrama MD Work Phone: General Surgery Comment on above: Non-recurrent abdomi nal hernia without obstruction or gangrene, unspecified hernia type (Primary Dx) Start: 07-22-2022 End: 07-22-2022 Patient encounter procedure Johanna Faith GLASS MECHANIC.CONTENT MANAGEMENT CONSULTANT Work Phone: [facility] Comment on above: Mucopurulent chronic bronchitis (HCC) (Primary Dx); Yeast infection, oral Start: 07-20-2022 Refill Yuval Mckeon on PA-C Work Phone: [facility] Comment on above: Refill Request Start: 07-08-2022 End: 07-08-2022 ambulatory [facility] Work Phone: Start: 07-08-2022 End: 07-08-2022 Patient encounter procedure [facility] Start: 07-01-2022 Telephone encounter Johanna marlow GLASS MECHANIC.CONTENT MANAGEMENT CONSULTANT Work Phone: [facility] Comment on above: Results (Chest Xray ) Start: 07-01-2022 End: 07-01-2022 Subsequent hospital visit by physician Xr [facility] Work Phone: Radiology Comment on above: Bacterial pneumonia [J15.9] Start: 07-01-2022 End: 07-01-2022 Patient encounter procedure Robbie Kyle MD Work Phone: [place] [facility] Comment on above: Rash (Primary Dx) Start: 06-10-2022 Refill Deloris Chavez APRN.CONTENT MANAGEMENT CONSULTANT Work Phone: [facility] Comment on above: Refill Request Start: 05-30-2022 ambulatory Deloris Chavez GLASS MECHANIC.CONTENT MANAGEMENT CONSULTANT Work Phone: [facility] [place] Comment on above: Er Start: 05-26-2022 End: 05-26-2022 Emergency department patient visit DONALD ARRIAZA CONTENT MANAGEMENT CONSULTANT [facility] Start: 05-14-2022 End: 05-14-2022 Office outpatient visit 15 minutes Deloris Chavez APRN.CONTENT MANAGEMENT CONSULTANT Work Phone: Family [facility] [place] Comment on above: Bronchitis (Primary Dx); Candidiasis Start: 05-13-2022 Telephone encounter Curtis Ryan MD Work Phone: Family [facility] [place] Comment on above: Results Start: 05-08-2022 End: 05-08-2022 Office outpatient visit 25 minutes Deloris Chavez GLASS MECHANIC.CONTENT MANAGEMENT CONSULTANT Work Phone: [facility] [place] Comment on above: Acute cystitis witho ut hematuria (Primary Dx); UTI symptoms; Generalized anxiety disorder with panic attacks; Symptoms of upper respiratory infection (URI) Start: 05-01-2022 ambulatory Deloris Chavez GLASS MECHANIC.CONTENT MANAGEMENT CONSULTANT Work Phone: Internal Medicine [facility] [place] Start: 04-25-2022 ambulatory Deloris Chavez APRN.CONTENT MANAGEMENT CONSULTANT Work Phone: [facility] [place] Comment on above: Hi Start: 04-12-2022 End: 04-12-2022 Patient encounter procedure Yarely Galvan PA-C Work Phone: [facility] Comment on above: Rash (Primary Dx) Start: 04-04-2022 ambulatory Deloris Chavez APRN.CONTENT MANAGEMENT CONSULTANT Work Phone: [facility] [place] Comment on above: Shots Start: 04-03-2022 ambulatory Deloris Chavez APRN.CONTENT MANAGEMENT CONSULTANT Work Phone: Family [facility] [place] Comment on above: Question on a medica tion Start: 03-21-2022 Refill Deloris Chavez APRN.CONTENT MANAGEMENT CONSULTANT Work Phone: Family [facility] [place] Comment on above: Refill Request Start: 03-11-2022 End: 03-11-2022 Nursing evaluation of patient and report Nurse Card Admin [facility] Work Phone: Cardiology Comment on above: Screening for ischem ic heart disease (Primary Dx) Start: 03-05-2022 ambulatory Nurse Card Adm in [facility] Work Phone: Cardiology Comment on above: Stress Test Instruct ions Start: 03-05-2022 E-mail encounter raghu vela caregiver Nurse Card Admin [facility] Work Phone: [facility] Start: 01-20-2022 ambulatory Deloris Chavez APRN.CONTENT MANAGEMENT CONSULTANT Work Phone: Family [facility] [place] Comment on above: Medication Start: 01-16-2022 End: 01-16-2022 Office outpatient visit 15 minutes Deloris Chavez APRN.CONTENT MANAGEMENT CONSULTANT Work Phone: Family [facility] [place] Comment on above: Cellulitis of skin ( Primary Dx); Rash Start: 01-13-2022 Refill Ccf Provider [facility] christian Ari[place] Comment on above: Refill Request Start: 12-25-2021 Refill Deloris Chavez APRN.CONTENT MANAGEMENT CONSULTANT Work Phone: [facility] [place] Comment on above: Refill Request Start: 12-24-2021 ambulatory Deloris Chavez APRN.CONTENT MANAGEMENT CONSULTANT Work Phone: [facility] [place] Comment on above: Hi Start: 11-15-2021 Telephone encounter Dorothy carr APRN.CONTENT MANAGEMENT CONSULTANT Work Phone: OB/Gynecology Comment on above: Results; New Medicat ion Start: 11-06-2021 End: 11-06-2021 Patient encounter procedure Dorothy Perales APRN.CONTENT MANAGEMENT CONSULTANT Work Phone: OB/Gynecology Comment on above: PMB (postmenopausal bleeding) (Primary Dx) Start: 11-05-2021 Refill Deloris Chavez APRN.CONTENT MANAGEMENT CONSULTANT Work Phone: [facility] [place] Comment on above: Refill Request Start: 10-24-2021 Telephone encounter Deloris duncan APRN.CONTENT MANAGEMENT CONSULTANT Work Phone: [facility] [place] Comment on above: Insurance Authorizat ion ([employer] ) Start: 10-23-2021 ambulatory Donald Vega Work Phone: General Surgery Comment on above: Test Start: 10-22-2021 End: 10-22-2021 Patient encounter procedure Deloris Chavez APRN.CONTENT MANAGEMENT CONSULTANT Work Phone: [facility] [place] Comment on above: Generalized anxiety disorder with panic attacks (Primary Dx); Medication management Start: 10-17-2021 Refill Yuval CHUNGC Work Phone: [facility] [place] Comment on above: Refill Request Start: 10-05-2021 Telephone encounter Deloris duncan APRN.CONTENT MANAGEMENT CONSULTANT Work Phone: [facility] [place] Comment on above: Results Start: 10-03-2021 Chart abstracting Audrey nolasco CYTOGENETICIST Work Phone: Adult Psychology Start: 10-02-2021 Chart abstracting Audrey nolasco CYTOGENETICIST Work Phone: Adult Psychology Start: 09-27-2021 Refill Deloris Chavez APRN.CONTENT MANAGEMENT CONSULTANT Work Phone: [facility] [place] Comment on above: Refill Request Start: 09-26-2021 Orders Only Cliff villatoro Work Phone: Podiatry Comment on above: Heel callus (Primary Dx) Start: 09-25-2021 End: 09-25-2021 Subsequent hospital visit by physician Xr [facility] [place] Work Phone: Radiology Comment on above: Wheeze [R06.2] Start: 09-25-2021 End: 09-25-2021 Patient encounter procedure Yarely CHUNGC Work Phone: [place] [facility] Comment on above: Bronchitis (Primary Dx) Start: 09-20-2021 Chart abstracting Audrey nolasco CYTOGENETICIST Work Phone: Adult Psychology Start: 09-16-2021 Refill Deloris Chavez APRN.CONTENT MANAGEMENT CONSULTANT Work Phone: [facility] [place] Comment on above: Refill Request Start: 09-07-2021 Refill Ccf Provider [facility] Ralph [place] Comment on above: Refill Request Start: 08-01-2021 End: 08-01-2021 Subsequent hospital visit by physician Xr [facility] [place] Work Phone: Radiology Comment on above: Wheezing [R06.2] Start: 11-23-2020 Telephone encounter Timothy Oneal MD [facility] [place] Comment on above: Est care and mammogr am PA Procedures Date Procedure Procedure Detail Performing Clinician Start: 01-31-2025 Local anesthetic sac ral epidural block Deloris Chavez YOUTH CORRECTIONS OFFICER-C Work Phone: Start: 01-31-2025 Injection of spinal epidural space Deloris Chavez YOUTH CORRECTIONS OFFICER-C Work Phone: Start: 01-31-2025 Injection using fluoroscopic guidance Deloris Chavez YOUTH CORRECTIONS OFFICER-C Work Phone: Start: 10-04-2024 Ventral hernioplasty Ch enedelia Chavez YOUTH CORRECTIONS OFFICER-C Work Phone: Start: 09-14-2024 PFIZER-BIONTViFlux COVI D-19 VACCINE AGE 12+ YR (COMIRNATY) Deloris Chavez GLASS MECHANIC.CONTENT MANAGEMENT CONSULTANT Work Phone: Start: 09-06-2024 Radiologic exam ches t 2 views Deloris Chavez APRN.CONTENT MANAGEMENT CONSULTANT Work Phone: Start: 09-03-2024 Computed tomography of abdomen and pelvis with contrast Deloris Chavez YOUTH CORRECTIONS OFFICER-C Work Phone: Start: 08-30-2024 Local anesthetic cer vical epidural block Deloris Chavez YOUTH CORRECTIONS OFFICER-C Work Phone: Start: 08-30-2024 Fluoroscopy guided injection of cervical spinal nerve root Deloris Chavez NP-C Work Phone: Start: 08-30-2024 Injection using fluoroscopic guidance Deloris Chavez YOUTH CORRECTIONS OFFICER-C Work Phone: Start: 08-24-2024 Lipid 1996 panel - S dave or Plasma Deloris Chavez GLASS MECHANIC.CONTENT MANAGEMENT CONSULTANT Work Phone: Start: 08-23-2024 Radiologic exam ches t 2 views Dony ARMANDO-C Work Phone: Start: 06-21-2024 Injection of spinal epidural space Deloris Chavez YOUTH CORRECTIONS OFFICER-C Work Phone: Start: 06-21-2024 Injection using fluoroscopic guidance Deloris Chavez YOUTH CORRECTIONS OFFICER-C Work Phone: Start: 11-12-2023 Lipid 1996 panel - S dave or Plasma Deloris Chavez GLASS MECHANIC.CONTENT MANAGEMENT CONSULTANT Work Phone: Start: 08-06-2023 Radex elbow complete minimum 3 views Haley Seaman GLASS MECHANIC.CONTENT MANAGEMENT CONSULTANT Work Phone: Start: 04-02-2023 Radiologic exam ches t 2 views Deloris Chavez GLASS MECHANIC.CONTENT MANAGEMENT CONSULTANT Work Phone: Start: 02-24-2023 Lipid 1996 panel - S dave or Plasma Deloris Chavez GLASS MECHANIC.CONTENT MANAGEMENT CONSULTANT Work Phone: Start: 10-10-2022 End: 10-10-2022 Mammography Bulk Order Provider Start: 09-02-2022 Radiologic exam ches t 2 views Deloris Chavez GLASS MECHANIC.CONTENT MANAGEMENT CONSULTANT Work Phone: Start: 08-06-2022 Ct abdomen & pelvis w/contrast material Murray Guadarrama MD Work Phone: Start: 07-08-2022 Radionuclide imaging of liver and/or biliary tract using radioactive isotope Start: 07-01-2022 Radiologic exam ches t 2 views Johanna Faith GLASS MECHANIC.CONTENT MANAGEMENT CONSULTANT Work Phone: Start: 05-08-2022 COVID WITH FLUA+B, ROUTINE Deloris Chavez GLASS MECHANIC.CONTENT MANAGEMENT CONSULTANT Work Phone: Start: 05-08-2022 Culture bacterial quanttative colony count urine Deloris Chavez GLASS MECHANIC.CONTENT MANAGEMENT CONSULTANT Work Phone: Start: 05-08-2022 Urnls dip stick/tabl et rgnt auto w/o microscopy Deloris Chavez GLASS MECHANIC.CONTENT MANAGEMENT CONSULTANT Work Phone: Start: 10-15-2021 Adult depression scr eening assessment EMILY Warner PA-C Work Phone: Start: 09-25-2021 Radiologic exam ches t 2 views Yarely Galvan PA-C Work Phone: Start: 08-27-2021 Adult depression scr eening assessment C[facility] Provider Start: 08-01-2021 Radiologic exam ches t 2 views Kaleb Fairchild APRN.CONTENT MANAGEMENT CONSULTANT Work Phone: Start: 09-13-2020 Colonoscopy Ccf Provid er Start: 04-17-2020 Mammography Ccf Provid er None (qualifier value) GHADA ARRIAZA CONTENT MANAGEMENT CONSULTANT Plan of Treatment Date Care Activity Detail Author Start: 08-24-2029 Lipid panel Lipid Screening [facility] Start: 11-11-2028 Lipid panel Lipid Screening [facility] Start: 02-25-2028 Lipid 1996 panel - S dave or Plasma Lipid Screening [facility] Start: 02-25-2028 Lipid panel Lipid Screening [facility] Start: 01-16-2028 [address]EN L[address]ID SCREEN [facility] Start: 08-25-2027 Diabetes Screening Diabetes Screenin g [facility] Start: 11-11-2026 Diabetes Screening Diabetes Screenin g [facility] Start: 09-19-[address]26 [address] L[address]ID SCREEN [facility] Start: 02-07-2026 Annual PCP Team Director Of Healthcare Systems sage Disease Visit Annual PCP Team Chronic Disease Visit [facility] Start: 01-15-2026 DIABETES SCREEN DIABETES SCREEN [facility] Start: 01-15-2026 Diabetes Screening Diabetes Screenin g [facility] Start: 01-09-2026 HPV TESTING HPV TESTING [facility] Start: 01-09-2026 PAP TESTING PAP TESTING [facility] Start: 01-09-2026 Screening for malign ant neoplasm of cervix [facility] Start: 11-20-[address] [facility] Start: 11-03-2025 BP Controlled (<130/80) BP Controlle d (<130/80) [facility] Start: 09-14-2025 Annual PCP Team Director Of Healthcare Systems sage Disease Visit Annual PCP Team Chronic Disease Visit [facility] Start: 09-13-[address] [facility] Start: 09-13-2025 COLORECTAL CANCER SCREENING COLORECTAL CANCER SCREENING [facility] Start: 09-13-2025 Screening for malign ant neoplasm of colon [facility] Start: 09-06-2025 DIABETES SCREEN DIABETES SCREEN [facility] Start: 08-29-2025 DIABETES SCREEN DIABETES SCREEN [facility] Start: 08-23-2025 Annual PCP Team Director Of Healthcare Systems sage Disease Visit Annual PCP Team Chronic Disease Visit [facility] Start: 08-23-2025 BP Controlled (<130/80) BP Controlle d (<130/80) [facility] Start: 08-19-2025 BP Controlled (<130/80) BP Controlle d (<130/80) [facility] Start: 06-02-2025 BP Controlled (<130/80) BP Controlle d (<130/80) [facility] Start: 05-16-[address]25 L[address] S[address]EN LIPID SCREEN [facility] Start: 04-30-2025 Annual PCP Team Director Of Healthcare Systems sage Disease Visit Annual PCP Team Chronic Disease Visit [facility] Start: 04-19-2025 Annual PCP Team Director Of Healthcare Systems sage Disease Visit Annual PCP Team Chronic Disease Visit [facility] Start: 04-14-2025 BP Controlled (<130/80) BP Controlle d (<130/80) [facility] Start: 03-31-2025 End: 03-31-2025 Patient encounter procedure 03/31/2025 11:30 AM EDT Office Visit Pulmonary Medicine [address] [place] [address] Gareth Domingo, GLASS MECHANIC.CONTENT MANAGEMENT CONSULTANT [address] [place] [address] [facility] Pul[facility] Comment on above: [facility] Start: 03-31-2025 End: 03-31-2025 Patient encounter procedure 03/31/2025 10:20 AM EDT Appointment Cat Scan [address] [place], [place] [id number] [facility] Cat Scan Comment on above: [facility] Start: 03-28-2025 End: 03-28-2025 Patient encounter procedure 03/28/2025 10:40 AM EDT Office Visit [facility] [place] [address] [place] [address] Deloris Chavez, GLASS MECHANIC.CONTENT MANAGEMENT CONSULTANT [address] [place], [place] [id number] 6 week follow up (40 min per CH) [facility] [place] Comment on above: 6 week follow up (40 min per CH) Start: 03-21-2025 End: 03-21-2025 Patient encounter procedure 03/21/2025 9:40 AM EDT Office Visit OB/Gynecology [address] [place] [address] Shannan Hagan MD [address] [place] [address] Annual OB/Gynecology Comment on above: Annual Start: 02-24-2025 Annual PCP Team Director Of Healthcare Systems sage Disease Visit Annual PCP Team Chronic Disease Visit [facility] Start: 02-16-2025 Annual PCP Team Director Of Healthcare Systems sage Disease Visit Annual PCP Team Chronic Disease Visit [facility] Start: 02-14-2025 Influenza vaccination Influenza Vacc ine (#1) [facility] Start: 02-07-2025 End: 05-09-2025 QUANTITATIVE TOXICOLOGY PANEL, URINE [facility] Work Phone: Comment on above: Expected: 02/07/2025 , Expires: 05/09/2025 Start: 02-07-2025 End: 02-07-2025 Patient encounter procedure 02/07/2025 10:20 AM EDT Office Visit [facility] [address] [place] [address] Deloris Chavez APRN.CONTENT MANAGEMENT CONSULTANT [address] [place] [address] Assessment on getting a new mobility scooter [facility] Comment on above: Assessment on gettin g a new mobility scooter Start: 01-31-2025 Anes dx/ther nerve block/injection prone pos ANESTH N BLOCK/INJ PRONE [facility] Start: 01-31-2025 Njx dx/ther sbst int rlmnr lmbr/sac w/img gdn NJX INTERLAMINAR LMBR/SAC [facility] Start: 01-31-2025 End: 01-31-2025 Patient encounter procedure 01/31/2025 9:40 AM EDT Office Visit OB/Gynecology [address] [place] [address] Shannan Hagan MD [address] [place] [place] [address] Annual OB/Gynecology Comment on above: Annual Start: 01-31-2025 Injection of spinal epidural space [facility] Start: 01-31-2025 Injection using fluoroscopic guidance [facility] Start: 01-31-2025 Patient discharge [facility] Start: 01-20-2025 Annual PCP Team Director Of Healthcare Systems sage Disease Visit Annual PCP Team Chronic Disease Visit [facility] Start: 01-15-2025 Screening for malign ant neoplasm of lung Lung Cancer Screening [facility] Start: 01-08-2025 Screening for malign ant neoplasm of breast Mammogram Screening [facility] Start: 12-23-2024 Annual PCP Team Director Of Healthcare Systems sage Disease Visit Annual PCP Team Chronic Disease Visit [facility] Start: 12-23-2024 BP Controlled (<130/80) BP Controlle d (<130/80) [facility] Start: 12-14-2024 End: 02-20-2025 CT Chest for screening WO contrast CT LUNG SCREEN WO IVCON Radiology Routine Former tobacco use Encounter for screening for lung cancer Expected: 12/14/2024 (Approximate), Expires: 02/20/2025 [facility] Work Phone: Comment on above: Expected: 12/14/2024 (Approximate), Expires: 02/20/2025 Start: 11-11-2024 Annual PCP Team Director Of Healthcare Systems sage Disease Visit Annual PCP Team Chronic Disease Visit [facility] Start: 10-04-2024 Anes lwr abd ventral & incisional hernia repair ANESTH REPAIR OF HERNIA [facility] Start: 10-04-2024 RPR AA HRN 1ST < 3 CM RDC RPR AA HRN 1ST < 3 CM RDC [facility] Start: 10-04-2024 Patient discharge [facility] Start: 09-21-2024 End: 09-21-2024 ambulatory 09/21/2024 8:45 AM EDT Results Only [facility] [address] [place] [address] [facility] Start: 09-21-2024 End: 09-21-2024 Patient encounter procedure [facility] [place] Comment on above: Follow up Follow up (40 min pe r CH) Start: 09-20-2024 End: 09-20-2024 Patient encounter procedure 09/20/2024 9:40 AM EDT Office Visit [facility] [place] [address] [facility] [place] [address] Deloris Chavez APRN.CONTENT MANAGEMENT CONSULTANT [address] [place] [address] Follow up [facility] Comment on above: Follow up Start: 09-19-2024 DIABETES SCREEN DIABETES SCREEN [facility] Start: 09-07-2024 End: 12-07-2024 CBC W Auto Differential panel - Blood COMPLETE BLOOD COUNT AND DIFFERENTIAL Lab Routine Leukocytosis, unspecified type Expected: 09/07/2024, Expires: 12/07/2024 [facility] Work Phone: Comment on above: Expected: 09/07/2024 , Expires: 12/07/2024 Start: 09-06-2024 End: 09-22-2025 XR Chest PA and Lateral XR CHEST 2V FRONTAL/LAT Radiology Routine Bacterial pneumonia Expected: 09/06/2024, Expires: 09/22/2025 [facility] Work Phone: Comment on above: Expected: 09/06/2024 , Expires: 09/22/2025 Start: 08-31-2024 Annual PCP Team Director Of Healthcare Systems sage Disease Visit Annual PCP Team Chronic Disease Visit [facility] Start: 08-31-2024 BP Controlled (<130/80) BP Controlle d (<130/80) [facility] Start: 08-30-2024 Njx dx/ther sbst int rlmnr crv/thrc w/img gdn NJX INTERLAMINAR CRV/THRC [facility] Start: 08-30-2024 Fluoroscopy guided injection of cervical spinal nerve root [facility] Start: 08-30-2024 Injection using fluoroscopic guidance [facility] Start: 08-30-2024 Patient discharge [facility] Start: 08-25-2024 End: 11-24-2024 CBC W Auto Differential panel - Blood COMPLETE BLOOD COUNT AND DIFFERENTIAL Lab Routine Leukocytosis, unspecified type Expected: 08/25/2024, Expires: 11/24/2024 [facility] Work Phone: Comment on above: Expected: 08/25/2024 , Expires: 11/24/2024 Start: 08-24-2024 End: 08-24-2024 ambulatory 08/24/2024 9:00 AM EDT Results Only [place] [facility] [address] [facility] [place] [address] [place] [facility] Start: 08-23-2024 End: 11-22-2024 CBC W Auto Differential panel - Blood COMPLETE BLOOD COUNT AND DIFFERENTIAL Lab Routine Essential hypertension, benign Expected: 08/23/2024, Expires: 11/22/2024 [facility] Comment on above: Expected: 08/23/2024 , Expires: 11/22/2024 Start: 08-23-2024 End: 11-22-2024 Comprehensive metabolic 2000 panel - Serum or Plasma COMPREHENSIVE METABOLIC PANEL Lab Routine Prediabetes Expected: 08/23/2024, Expires: 11/22/2024 [facility] Comment on above: Expected: 08/23/2024 , Expires: 11/22/2024 Start: 08-23-2024 End: 11-22-2024 Hemoglobin A1c in Blood HEMOGLOBIN A1C Lab Routine Prediabetes Expected: 08/23/2024, Expires: 11/22/2024 [facility] Comment on above: Expected: 08/23/2024 , Expires: 11/22/2024 Start: 08-23-2024 End: 11-22-2024 Lipid 1996 panel - Serum or Plasma LIPID PANEL BASIC Lab Routine Hyperlipidemia LDL goal <130 Expected: 08/23/2024, Expires: 11/22/2024 [facility] Comment on above: Expected: 08/23/2024 , Expires: 11/22/2024 Start: 08-23-2024 End: 11-22-2024 Thyrotropin [Units/volume] in Serum or Plasma THYROID STIMULATING HORMONE Lab Routine Hypothyroidism, unspecified type Expected: 08/23/2024, Expires: 11/22/2024 [facility] Comment on above: Expected: 08/23/2024 , Expires: 11/22/2024 Start: 08-23-2024 End: 08-23-2024 Patient encounter procedure 08/23/2024 9:40 AM EDT Office Visit Family [facility] [place] [address] [place] [address] Deloris Chavez, GLASS MECHANIC.CONTENT MANAGEMENT CONSULTANT [address] [place] [address] 3 month follow up (40min per CH) [facility] [place] Comment on above: 3 month follow up (4 0min per CH) Start: 08-23-2024 End: 08-23-2024 Patient encounter procedure 08/23/2024 8:30 AM EDT Appointment Radiology [address] [place] [address] Radiology Start: 08-07-2024 Annual PCP Team Director Of Healthcare Systems sage Disease Visit Annual PCP Team Chronic Disease Visit [facility] Start: 08-07-2024 BP Controlled (<130/80) BP Controlle d (<130/80) [facility] Start: 08-06-2024 BP Controlled (<130/80) BP Controlle d (<130/80) [facility] Start: 07-20-2024 End: 07-20-2024 Patient encounter procedure Family [facility] [place] Comment on above: 3 month follow up 3 month follow up (4 0min per CH) Start: 07-11-2024 Annual PCP Team Director Of Healthcare Systems sage Disease Visit Annual PCP Team Chronic Disease Visit [facility] Start: 06-21-2024 Njx dx/ther sbst int rlmnr lmbr/sac w/img gdn NJX INTERLAMINAR LMBR/SAC [facility] Start: 06-21-2024 Patient discharge [facility] Start: 06-16-2024 Medicare Advantage A nnual Wellness Visit Medicare Advantage Annual Wellness Visit [facility] Start: 05-27-2024 Screening for malign ant neoplasm of lung Lung Cancer Screening [facility] Start: 05-12-2024 End: 05-12-2024 Patient encounter procedure 05/12/2024 8:00 AM EST Office Visit OB/Gynecology [address] [place] [address] Dorothy Perales, GLASS MECHANIC.CONTENT MANAGEMENT CONSULTANT [address] [place] [address] Class 3 severe obesity with body mass index (BMI) of 45.0 to 49.9 in adult, unspecified obesity type, unspecified whether serious comorbidity present (HCC) [E66.813, E66.01, Z68.42] OB/Gynecology Comment on above: Class 3 severe obesi ty with body mass index (BMI) of 45.0 to 49.9 in adult, unspecified obesity type, unspecified whether serious comorbidity present (HCC) [E66.813, E66.01, Z68.42] Start: 05-05-2024 Annual PCP Team Director Of Healthcare Systems sage Disease Visit Annual PCP Team Chronic Disease Visit [facility] Start: 05-05-2024 BP Controlled (<130/80) BP Controlle d (<130/80) [facility] Start: 04-19-2024 Covid-19 Vaccine () Covid-[address] Vacc[address] () [facility] Start: 04-14-2024 End: 07-14-2024 Bacteria identified in Wound by Culture [facility] Work Phone: Comment on above: Expected: 04/14/2024 , Expires: 07/14/2024 Start: 04-08-2024 Annual PCP Team Director Of Healthcare Systems sage Disease Visit Annual PCP Team Chronic Disease Visit [facility] Start: 04-05-2024 End: 04-05-2024 Patient encounter procedure 04/05/2024 9:20 AM EDT Office Visit Family [place] [address] [facility], [place] [id number] Deloris Chavez, GLASS MECHANIC.CONTENT MANAGEMENT CONSULTANT [address] [place], [place] [address] [facility] [place] Comment on above: [facility] Start: 03-22-2024 End: 03-22-2024 Patient encounter procedure 03/22/2024 7:40 AM EDT Office Visit Family Cristina [place]as [address] [facility] [place], [place] [id number] Deloris Chavez, MARIA GUADALUPE.CONTENT MANAGEMENT CONSULTANT [address] [facility] [place] [place] [id number] 3 month follow up Family Medicine [place] Comment on above: 3 month follow up Start: 03-17-2024 BP Controlled (<130/80) BP Controlle d (<130/80) [facility] Start: 03-10-2024 Annual PCP Team Director Of Healthcare Systems sage Disease Visit Annual PCP Team Chronic Disease Visit [facility] Start: 02-25-2024 End: 05-26-2024 BENZO CONFIRM, URINE [facility] Work Phone: Comment on above: Expected: 02/25/2024 , Expires: 05/26/2024 Start: 02-17-2024 End: 02-17-2024 Patient encounter procedure 02/17/2024 7:40 AM EDT Office Visit Family Cristina Arias [address] [facility] [place] [address] Deloris Chavez, GLASS MECHANIC.CONTENT MANAGEMENT CONSULTANT [address] [place] [address] 3 month follow up Family Cristina Arias Comment on above: 3 month follow up Start: 02-15-2024 Influenza vaccination Influenza Vacc ine (#1) [facility] Start: 01-21-2024 End: 01-21-2024 Patient encounter procedure 01/21/2024 10:00 AM EDT Office Visit Family Cristina Arias [address] [facility] [place] [address] Deloris Chavez, GLASS MECHANIC.CONTENT MANAGEMENT CONSULTANT [address] [place] [address] swollen legs follow up Family Cristina Arias Comment on above: swollen legs follow up Start: 01-16-2024 ANNUAL PCP TEAM ROLLS MILL OPERATOR SAGE DISEASE VISIT ANNUAL PCP TEAM CHRONIC DISEASE VISIT [facility] Start: 01-16-2024 End: 01-16-2024 Patient encounter procedure 01/16/2024 8:40 AM EDT Appointment Cat Scan [address] [place], [place] [address] Lung nodules [R91.8] Cat Scan Comment on above: Lung nodules [R91.8] Start: 12-24-2023 End: 12-24-2023 Patient encounter procedure 12/24/2023 8:00 AM EDT Office Visit Family Medicine [place] [address] [place] [address] Deloris Chavez, GLASS MECHANIC.CONTENT MANAGEMENT CONSULTANT [address] [place] [address] [facility] ER f/y leg swelling Family Medicine [place] Comment on above: [facility] ER f/y leg swell ing Start: 12-09-2023 End: 12-09-2023 Patient encounter procedure 12/09/2023 10:30 AM EDT Office Visit OB/Gynecology [address] [place] [address] Dorothy Perales APRN.CONTENT MANAGEMENT CONSULTANT [address] [place] [address] Annual OB/Gynecology Comment on above: Annual Start: 12-01-2023 End: 12-01-2023 Patient encounter procedure Cat Scan Comment on above: Lung nodules [R91.8] 6 mth Start: 11-14-2023 End: 02-13-2024 CBC W Auto Differential panel - Blood COMPLETE BLOOD COUNT AND DIFFERENTIAL Lab Routine Leukocytosis, unspecified type Expected: 11/14/2023, Expires: 02/13/2024 [facility] Comment on above: Expected: 11/14/2023 , Expires: 02/13/2024 Start: 11-14-2023 End: 02-13-2024 Hepatic function 2000 panel - Serum or Plasma HEPATIC FUNCTION PNL Lab Routine Elevated alkaline phosphatase level Expected: 11/14/2023, Expires: 02/13/2024 [facility] Work Phone: Comment on above: Expected: 11/14/2023 , Expires: 02/13/2024 Start: 11-12-2023 End: 11-12-2023 Patient encounter procedure 11/12/2023 8:40 AM EDT Office Visit [facility] [place] [address] [place] [address] Deloris Chavez, GLASS MECHANIC.CONTENT MANAGEMENT CONSULTANT [address] [place] [address] Annual Family Medicine [place] Comment on above: Annual Start: 11-09-2023 ANNUAL PCP TEAM ROLLS MILL OPERATOR SAGE DISEASE VISIT ANNUAL PCP TEAM CHRONIC DISEASE VISIT [facility] Start: 10-11-[address] [facility] Start: 10-11-2023 Screening for malign ant neoplasm of breast Mammogram Screening [facility] Start: 09-03-2023 ANNUAL PCP TEAM ROLLS MILL OPERATOR SAGE DISEASE VISIT ANNUAL PCP TEAM CHRONIC DISEASE VISIT [facility] Start: 07-22-2023 ANNUAL PCP TEAM ROLLS MILL OPERATOR SAGE DISEASE VISIT ANNUAL PCP TEAM CHRONIC DISEASE VISIT [facility] Start: 07-22-2023 BP CONTROLLED (<130/80) BP CONTROLLE D (<130/80) [facility] Start: 07-01-2023 BP CONTROLLED (<130/80) BP CONTROLLE D (<130/80) [facility] Start: 06-02-2023 DIABETES SCREEN DIABETES SCREEN [facility] Start: 05-31-2023 ANNUAL PCP TEAM ROLLS MILL OPERATOR SAGE DISEASE VISIT ANNUAL PCP TEAM CHRONIC DISEASE VISIT [facility] Start: 05-31-2023 BP CONTROLLED (<130/80) BP CONTROLLE D (<130/80) [facility] Start: 05-14-2023 ANNUAL PCP TEAM ROLLS MILL OPERATOR SAGE DISEASE VISIT ANNUAL PCP TEAM CHRONIC DISEASE VISIT [facility] Start: 05-08-2023 ANNUAL PCP TEAM ROLLS MILL OPERATOR SAGE DISEASE VISIT ANNUAL PCP TEAM CHRONIC DISEASE VISIT [facility] Start: 05-08-2023 BP CONTROLLED (<130/80) BP CONTROLLE D (<130/80) [facility] Start: 02-20-2023 End: 07-23-2023 Alanine aminotransferase [Enzymatic activity/volume] in Serum or Plasma ALT/SGPT Lab Routine Hyperlipidemia LDL goal <130 Expected: 02/20/2023, Expires: 07/23/2023 [facility] Work Phone: Comment on above: Expected: 02/20/2023 , Expires: 07/23/2023 Start: 02-20-2023 End: 07-23-2023 Lipid 1996 panel - Serum or Plasma LIPID PANEL BASIC Lab Routine Hyperlipidemia LDL goal <130 Expected: 02/20/2023, Expires: 07/23/2023 [facility] Work Phone: Comment on above: Expected: 02/20/2023 , Expires: 07/23/2023 Start: 02-14-2023 Covid-19 Vaccine ( season) Covid-[address] () [facility] Start: 02-14-2023 Influenza vaccination INFLUENZA (#1) [facility] Start: 01-16-2023 ANNUAL PCP TEAM ROLLS MILL OPERATOR SAGE DISEASE VISIT ANNUAL PCP TEAM CHRONIC DISEASE VISIT [facility] Start: 11-06-2022 BP CONTROLLED (<130/80) BP CONTROLLE D (<130/80) [facility] Start: 10-22-2022 ANNUAL PCP TEAM ROLLS MILL OPERATOR SAGE DISEASE VISIT ANNUAL PCP TEAM CHRONIC DISEASE VISIT [facility] Start: 10-22-2022 BP CONTROLLED (<130/80) BP CONTROLLE D (<130/80) [facility] Start: 10-15-2022 Adult depression scr eening assessment DEPRESSION SCREENING [facility] Start: 09-25-2022 BP CONTROLLED (<130/80) BP CONTROLLE D (<130/80) [facility] Start: 09-19-2022 ANNUAL PCP TEAM ROLLS MILL OPERATOR SAGE DISEASE VISIT ANNUAL PCP TEAM CHRONIC DISEASE VISIT [facility] Start: 09-19-2022 BP CONTROLLED (<130/80) BP CONTROLLE D (<130/80) [facility] Start: 08-27-2022 Adult depression scr eening assessment DEPRESSION SCREENING [facility] Start: 08-27-2022 End: 10-27-2022 Basic metabolic 2000 panel - Serum or Plasma BASIC METABOLIC PNL Lab Routine Pre-op evaluation Expected: 08/27/2022, Expires: 10/27/2022 [facility] Work Phone: Comment on above: Expected: 08/27/2022 , Expires: 10/27/2022 Start: 08-27-2022 End: 10-27-2022 CBC W Auto Differential panel - Blood CBC + DIFF Lab Routine Pre-op evaluation Expected: 08/27/2022, Expires: 10/27/2022 [facility] Work Phone: Comment on above: Expected: 08/27/2022 , Expires: 10/27/2022 Start: 08-27-2022 End: 10-27-2022 CONFIRM BLOOD TYPE CONFIRM BLOOD TYPE Blood Bank Routine Pre-op evaluation Expected: 08/27/2022, Expires: 10/27/2022 [facility] Work Phone: Comment on above: Expected: 08/27/2022 , Expires: 10/27/2022 Start: 08-27-2022 End: 10-27-2022 Hemoglobin A1c in Blood HGB A1C Lab Routine Pre-op evaluation Expected: 08/27/2022, Expires: 10/27/2022 [facility] Work Phone: Comment on above: Expected: 08/27/2022 , Expires: 10/27/2022 Start: 08-27-2022 End: 10-27-2022 Thyrotropin [Units/volume] in Serum or Plasma TSH BLD Lab Routine Pre-op evaluation Expected: 08/27/2022, Expires: 10/27/2022 [facility] Work Phone: Comment on above: Expected: 08/27/2022 , Expires: 10/27/2022 Start: 08-27-2022 End: 10-27-2022 TYPE AND SCREEN,30 DAY TYPE AND SCREEN,30 DAY Blood Bank Routine Pre-op evaluation Expected: 08/27/2022, Expires: 10/27/2022 [facility] Work Phone: Comment on above: Expected: 08/27/2022 , Expires: 10/27/2022 Start: 08-06-2022 ANNUAL PCP TEAM ROLLS MILL OPERATOR SAGE DISEASE VISIT ANNUAL PCP TEAM CHRONIC DISEASE VISIT [facility] Start: 07-23-2022 End: 09-22-2022 CREATININE BLD CREATININE BLD Lab Routine Non-recurrent abdominal hernia without obstruction or gangrene, unspecified hernia type Expected: 07/23/2022, Expires: 09/22/2022 [facility] Work Phone: Comment on above: Expected: 07/23/2022 , Expires: 09/22/2022 Start: 06-16-2022 DEPRESSION ASSESSMENT DEPRESSION ASS ESSMENT [facility] Start: 02-14-2022 Influenza vaccination INFLUENZA (#1) [facility] Start: 12-18-2021 COVID-19 VACCINE (5 - Booster for Pfizer series) COVID-19 VACCINE (5 - Booster for Pfizer series) [facility] Start: 12-04-2021 End: 02-03-2022 T4 FREE/FREE THYROX T4 FREE/FREE THYROX Lab Routine Hypothyroidism, acquired Expected: 12/04/2021, Expires: 02/03/2022 [facility] Work Phone: Comment on above: Expected: 12/04/2021 , Expires: 02/03/2022 Start: 12-04-2021 End: 02-03-2022 Thyrotropin [Units/volume] in Serum or Plasma TSH BLD Lab Routine Hypothyroidism, acquired Expected: 12/04/2021, Expires: 02/03/2022 [facility] Work Phone: Comment on above: Expected: 12/04/2021 , Expires: 02/03/2022 Start: 11-04-2021 End: 01-04-2022 Thyrotropin [Units/volume] in Serum or Plasma TSH BLD Lab Routine Hypothyroidism, unspecified type Expected: 11/04/2021, Expires: 01/04/2022 [facility] Work Phone: Comment on above: Expected: 11/04/2021 , Expires: 01/04/2022 Start: 09-25-2021 End: 10-09-2021 Influenza virus A and B RNA and SARS-CoV-2 (COVID-19) N gene panel - Respiratory specimen by TAMMY with probe detection [facility] Work Phone: Comment on above: Expected: 09/25/2021 , Expires: 10/09/2021 Start: 08-25-2021 COVID-19 VACCINE (4 - Booster for Pfizer series) COVID-19 VACCINE (4 - Booster for Pfizer series) [facility] Start: 06-16-2021 DEPRESSION ASSESSMENT DEPRESSION ASS ESSMENT [facility] Start: 04-17-[address] [facility] Start: 07-09-2020 FECAL OCCULT BLOOD FECAL OCCULT BLOO D [facility] Start: 07-09-2020 Screening for malign ant neoplasm of colon Fecal Occult Blood [facility] Start: 04-15-2020 BP CONTROLLED (<130/80) BP CONTROLLE D (<130/80) [facility] Start: 04-10-2020 SHINGRIX VACCINE (2 of 2) JEFFRIES GRIX VACCINE (2 of 2) [facility] Start: 01-01-2012 Influenza vaccination Lung Cancer James howell [facility] Start: 2006 COLOGUARD (FIT-DNA) COLOGUARD (FIT-D NA) [facility] Start: [address] COLONOGRAPHY [facility] Start: 2006 Screening for malign ant neoplasm of colon [facility] Start: 2006 SIGMOIDOSCOPY SIGMOIDOSCOPY [facility] Bacteria identified in Urine by Culture URINE CULTURE Microbiology Routine UTI symptoms Acute cystitis without hematuria 05/08/2022 9:33 AM EST [facility] Work Phone: BENZO CONFIRM, URINE BENZO CONFI RM, URINE Lab Routine Medication management 02/25/2024 8:[address] [facility] COVID & INFLUENZA A/ B & RSV PCR, ROUTINE COVID & INFLUENZA A/B & RSV PCR, ROUTINE Microbiology Routine Bronchitis Ordered: 08/19/2024 [facility] Work Phone: Comment on above: Ordered: 08/19/2024 End: 08-22-2023 Ct abdomen & pelvis w/contrast material CT ABD/PEL W IVCON Radiology Routine Non-recurrent abdominal hernia without obstruction or gangrene, unspecified hernia type 1 Occurrences starting 07/23/2022 until 08/22/2023 [facility] Work Phone: Comment on above: 1 Occurrences starti ng 07/23/2022 until 08/22/2023 End: 03-04-2026 CT Chest for screening WO contrast CT LUNG SCREEN WO IVCON Radiology Routine Encounter for screening for lung cancer Former tobacco use 1 Occurrences starting 02/02/2025 until 03/04/2026 [facility] Work Phone: Comment on above: 1 Occurrences starti ng 02/02/2025 until 03/04/2026 CT Chest WO contrast CT CHEST WO IVCON Radiology Routine Lung nodules 01/16/2024 8:55 AM EDT [facility] Work Phone: End: 05-07-2024 Ct thorax w/o contrast material CT CHEST WO IVCON Radiology Routine Pneumonia of right middle lobe due to infectious organism 1 Occurrences starting 04/08/2023 until 05/07/2024 [facility] Work Phone: Comment on above: 1 Occurrences starti ng 04/08/2023 until 05/07/2024 End: 08-28-2023 ECG COMPLETE ECG COMPLETE ECG Routine Pre-op evaluation 1 Occurrences starting 08/27/2022 until 08/28/2023 [facility] Work Phone: Comment on above: 1 Occurrences starti ng 08/27/2022 until 08/28/2023 Endometrial bx w/wo endocervix bx w/o dilat spx ENDOMETRIAL BIOPSY Procedures Routine PMB (postmenopausal bleeding) Ordered: 11/06/2021 [facility] Work Phone: Comment on above: Ordered: 11/06/2021 End: 12-11-2024 MG Breast Screening JENNIFFER SCREENING Radiology Routine Encounter for screening mammogram for breast cancer 1 Occurrences starting 11/12/2023 until 12/11/2024 [facility] Work Phone: Comment on above: 1 Occurrences starti ng 11/12/2023 until 12/11/2024 MG Breast Screening JENNIFFER SCREENIN G Radiology Routine Encounter for screening mammogram for breast cancer 01/09/2024 9:18 AM T [facility] Work Phone: PAIN PANEL, UR QUANT PAIN PANEL, UR QUANT Lab Routine Generalized anxiety disorder with panic attacks Medication management 10/22/2021 9:53 AM [facility] Work Phone: PAIN PANEL, UR QUANT PAIN PANEL, UR QUANT Lab Routine Generalized anxiety disorder with panic attacks Medication management 10/22/2021 9:53 AM [facility] Work Phone: PAIN PANEL, UR QUANT PAIN PANEL, UR QUANT Lab Routine Medication management 02/25/2024 8:[address] [facility] PAIN PANEL, UR QUANT PAIN PANEL, UR QUANT Lab Routine Medication management 02/25/2024 8:[address] [facility] Patient referral [facility] Work Phone: PELVIC US WHI PELVIC US WHI An c Imaging Routine PMB (postmenopausal bleeding) Ordered: 11/06/2021 [facility] Work Phone: Comment on above: Ordered: 11/06/2021 QUANT TOX PANEL QUANT TOX PANEL Lab Routine Medication management Anxiety 02/07/2025 11:23 AM [facility] End: 04-08-2024 Radiologic exam chest 2 views XR CHEST 2V FRONTAL/LAT Radiology Routine Bacterial pneumonia 1 Occurrences starting 03/10/2023 until 04/08/2024 [facility] Work Phone: Comment on above: 1 Occurrences starti ng 03/10/2023 until 04/08/2024 End: 05-03-2024 Radiologic exam chest 2 views XR CHEST 2V FRONTAL/LAT Radiology Routine Bacterial pneumonia 1 Occurrences starting 04/04/2023 until 05/03/2024 [facility] Work Phone: Comment on above: 1 Occurrences starti ng 04/04/2023 until 05/03/2024 End: 05-31-2023 Screening mammography bi 2-view breast inc cad JENNIFFER SCREENING Radiology Routine Encounter for screening mammogram for breast cancer 1 Occurrences starting 05/01/2022 until 05/31/2023 [facility] Work Phone: Comment on above: 1 Occurrences starti ng 05/01/2022 until 05/31/2023 SPECIMEN VALIDITY, URINE SPECIME N VALIDITY, URINE Lab Routine Generalized anxiety disorder with panic attacks Medication management 10/22/2021 11:03 AM [facility] Work Phone: SPECIMEN VALIDITY, URINE SPECIME N VALIDITY, URINE Lab Routine Medication management 02/25/2024 8:44 AM [facility] SPECIMEN VALIDITY, URINE SPECIME N VALIDITY, URINE Lab Routine Medication management Anxiety 02/07/2025 11:23 AM [facility] SURGICAL PATHOLOGY SURGICAL PATH OLOGY Lab Routine PMB (postmenopausal bleeding) Ordered: 11/06/2021 [facility] Work Phone: Comment on above: Ordered: 11/06/2021 TOX SCREEN ROUT UR TOX SCREEN RO UT UR Lab Routine Generalized anxiety disorder with panic attacks Medication management 10/22/2021 9:53 AM T [facility] Work Phone: TOXICOLOGY SCREEN, R OUTINE URINE TOXICOLOGY SCREEN, ROUTINE URINE Lab Routine Medication management 02/25/2024 8:[address] [facility] TOXICOLOGY SCREEN, R OUTINE URINE TOXICOLOGY SCREEN, ROUTINE URINE Lab Routine Medication management Anxiety 02/07/2025 11:[address] [facility] End: 09-18-2025 XR Chest PA and Lateral XR CHEST 2V FRONTAL/LAT Radiology STAT Bronchitis 1 Occurrences starting 08/19/2024 until 09/18/2025 [facility] Comment on above: 1 Occurrences starti ng 08/19/2024 until 09/18/2025 [facility] Immunizations Immunization Date Immunization Notes Care Provider Yoli machuca 09-14-2024 COVID-19 vaccine, ag e 12+ yr (PFIZER-BIONTECH [facility]) Deloris Chavez GLASS MECHANIC.CONTENT MANAGEMENT CONSULTANT Work Phone: [facility] 02-23-2024 COVID-19 vaccine, ag e 12+ yr, bivalent (Sellplex-BIONTViFlux) Deloris Chavez GLASS MECHANIC.CONTENT MANAGEMENT CONSULTANT Work Phone: [facility] 02-23-2024 influenza, seasonal, injectable Deloris Chavez GLASS MECHANIC.CONTENT MANAGEMENT CONSULTANT Work Phone: [facility] 02-23-2024 influenza virus vacc ine, unspecified formulation Deloris Chavez GLASS MECHANIC.CONTENT MANAGEMENT CONSULTANT Work Phone: [facility] 06-07-2023 COVID-19 vaccine, ag e 12+ yr, season (PFIZER-BIONTECH) Deloris Chavez APRN.CONTENT MANAGEMENT CONSULTANT Work Phone: [facility] 02-18-2023 influenza, injectabl e, quadrivalent, preservative free Deloris Chavez GLASS MECHANIC.CONTENT MANAGEMENT CONSULTANT Work Phone: [facility] 02-18-2023 respiratory syncytia l virus (RSV) vaccine, bivalent (ABRYSVO) Deloris Chavez GLASS MECHANIC.CONTENT MANAGEMENT CONSULTANT Work Phone: [facility] 02-18-2023 influenza virus vacc ine, unspecified formulation [facility] 03-19-2022 COVID-19 booster vaccine, age 12+ yr, bivalent (PFIZER-BIONTECH) Deloris Chavez GLASS MECHANIC.CONTENT MANAGEMENT CONSULTANT Work Phone: [facility] 03-19-2022 influenza, seasonal, injectable Deloris Chavez APRN.CONTENT MANAGEMENT CONSULTANT Work Phone: [facility] 10-23-2021 COVID-19 vaccine, ag e 12+ yr (PFIZER-BIONTECH - WILLETT TOP) Deloris Chavez GLASS MECHANIC.CONTENT MANAGEMENT CONSULTANT Work Phone: [facility] 10-23-2021 COVID-19 vaccine, ag e 12+ yr (PFIZER-BIONTECH - PURPLE TOP) Deloris Chavez GLASS MECHANIC.CONTENT MANAGEMENT CONSULTANT Work Phone: [facility] 10-23-2021 pneumococcal (PCV20) vaccine, 20 valent (PREVNAR 20) Deloris Chavez APRN.CONTENT MANAGEMENT CONSULTANT Work Phone: [facility] 04-27-2021 COVID-19 vaccine, ag e 12+ yr (PFIZER-BIONTECH - PURPLE TOP) [facility] Provider [facility] 04-27-2021 zoster vaccine recombinant Deloris Chavez GLASS MECHANIC.CONTENT MANAGEMENT CONSULTANT Work Phone: [facility] 02-18-2021 influenza, seasonal, injectable Ccf Provider [facility] 09-19-2020 COVID-19 vaccine, ag e 12+ yr (PFIZER-BIONTECH - PURPLE TOP) Ccf Provider [facility] 08-29-2020 COVID-19 vaccine, ag e 12+ yr (Sellplex-AccuDraft - PURPLE TOP) Ccf Provider [facility] 03-23-2020 influenza, seasonal, injectable [facility] Provider [facility] 02-14-2020 zoster vaccine recombinant Cc Provider [facility] 03-23-2019 influenza, injectabl e, quadrivalent, contains preservative Cc Provider [facility] 08-27-2016 influenza, injectabl e, quadrivalent, contains preservative [facility] 11-21-2015 pneumococcal polysaccharide vaccine, 23 valent [facility] Provider [facility] 11-21-2015 tetanus toxoid, redu kieran diphtheria toxoid, and acellular pertussis vaccine, adsorbed [facility] 05-02-2010 influenza virus vacc ine, unspecified formulation [facility] Provider [facility] Work Phone: 04-30-2004 diphtheria and tetan us toxoids, adsorbed for pediatric use Cc Provider [facility] Work Phone: Payers Date Payer Category Payer Self-pay [id number] 2024 Unknown [id number] 2023 Medicare (Managed Care) [id number]. [id number] 2023 Private Health Insurance [id number] 2023 Medicare [id number] 2022 Medicare [id number] 2022 Unknown [id number] 2021 Medicaid [id number] 2021 Medicare MEDICARE MEDICAR E A AND B [id number] 2021-Present [phone] [address] [address] [place] [address] Medicare [id number] 2021 Medicare [id number] 2017 Medicaid [id number] 2017 Medicaid [id number] 2010 Unknown MEDICAL [facility] [id number] 1961 Unknown [id number] 2.16.840.1.824471.3.579.2.6 1961 Unknown [id number] 2.16.840.1.269754.3.579.2.6 1961 Unknown [id number] 2.16.840.1.840389.3.579.2.6 1961 Unknown [id number] 2.16.840.1.683875.3.579.2.6 1961 Unknown [id number] 2.16.840.1.119647.3.579.2.6 1961 Unknown [id number] 2.16.840.1.880392.3.579.2.6 1961 Unknown [id number] 2.16.840.1.343233.3.579.2.6 1961 Unknown [id number] 2.16.840.1.965392.3.579.2.6 Unknown [id number] Unknown [id number] 2.16.840.1.903604.3.579.2.4 62 Unknown [id number] 2.16.840.1.079410.3.579.2.4 62 Unknown [id number] 2.16.840.1.668698.3.579.2.4 62 Unknown [id number] 2.16.840.1.728381.3.579.2.4 62 Unknown [id number] 2.16.840.1.362086.3.579.2.4 62 Unknown [id number] 2.16.840.1.538463.3.579.2.4 62 Unknown [id number] 2.16.840.1.669569.3.579.2.4 62 Unknown [id number] 2.16.840.1.127418.3.579.2.4 62 Unknown [id number] 2.16.840.1.724404.3.579.2.4 62 Unknown [id number] 2.16.840.1.864279.3.579.2.4 62 Unknown [id number] 2.16.840.1.365328.3.579.2.4 62 Unknown [id number] 2.16.840.1.131968.3.579.2.4 62 Unknown [id number] 2.16.840.1.448463.3.579.2.4 62 Unknown [id number] 2.16.840.1.233995.3.579.2.4 62 Social History Date Type Detail Facility Start: 05-29-1987 End: 08-23-2024 Tobacco smoking status NHIS Smokes tobacco daily [facility] Work Phone: Start: 05-29-1987 End: 11-04-2024 History of tobacco use Cigarette Smoker [facility] Work Phone: Start: 05-29-2020 End: 11-08-2022 Cigarettes smoked current (pack per day) - Reported 0.5 [facility] Start: 05-29-2020 End: 08-25-2025 Tobacco use and exposure Smokeless tobacco non-user [facility] Work Phone: Start: 08-06-2021 End: 02-07-2025 Alcohol intake Current non-drinker of alcohol (finding) [facility] Start: 04-03-2020 End: 05-07-2022 History SDOH Alcohol Frequency 1 [facility] Start: 04-03-2020 End: 05-07-2022 History SDOH Alcohol Std Drinks 98 [facility] Start: 05-09-2020 End: 05-07-2022 History SDOH Social Connections Phone 5 [facility] Start: 10-08-2019 End: 05-07-2022 History SDOH Social Connections Get Together 2 [facility] Start: 10-08-2019 End: 05-07-2022 History SDOH Physical Activity DPW 0 [facility] Start: 05-09-2020 History SDOH Financial 4 [facility] Start: 06-08-[address] [facility] Start: 1960 Sex Assigned At Female C [facility] Start: 07-02-2021 End: 04-12-2022 Exposure to SARS-CoV-2 (event) Not sure [facility] Start: 09-25-2021 End: 02-07-2025 Tobacco smoking status NHIS Ex-smoker [facility] Start: 05-29-1987 End: 11-04-2024 History of tobacco use Current smoker [facility] Start: 05-07-2022 History SDOH Stress 3 [facility] Sex Assigned At Sex [facility] Start: 06-26-2021 Tobacco smoking stat us NMIS Unknown if ever smoked [facility] Start: 12-05-2019 Spouse/ Signif icant Other [facility] Start: 05-07-2022 End: 11-08-2022 Social connection and isolation panel [facility] Start: 05-17-2012 In a typical week, h ow many times do you talk on the telephone with family, friends, or neighbors? Patient refused [facility] Do you belong to any clubs or organizations such as scientologist groups, unions, fraternal or athletic groups, or school groups? No [facility] Are you now , , , , never or living with a partner? [facility] How often to you hav e a drink containing alcohol? Never [facility] How hard is it for y ou to pay for the very basics like food, housing, medical care, and heating Somewhat hard [facility] Do you feel stress - tense, restless, nervous, or anxious, or unable to sleep at night because your mind is troubled all the time - these days [OSQ] To some extent [facility] (I/We) worried wheth er (my/our) food would run out before (I/we) got money to buy more. DK or Refused [facility] Start: 11-16-2020 Gender identity Identifies as female gender (finding) [facility] Start: 02-27-2023 Tobacco smoking status Heavy t obacco smoker (finding) [facility] Do you feel stress - tense, restless, nervous, or anxious, or unable to sleep at night because your mind is troubled all the time - these days [OSQ] Rather much [facility] (I/We) worried wheth er (my/our) food would run out before (I/we) got money to buy more. Never true [facility] How hard is it for y ou to pay for the very basics like food, housing, medical care, and heating Not very hard [facility] Do you feel stress - tense, restless, nervous, or anxious, or unable to sleep at night because your mind is troubled all the time - these days [OSQ] Very much [facility] How hard is it for y ou to pay for the very basics like food, housing, medical care, and heating Hard [facility] (I/We) worried wheth er (my/our) food would run out before (I/we) got money to buy more. Sometimes true [facility] Start: 08-30-2024 End: 10-04-2024 Sex Female (finding) [facility] NEGATED: Highlighted row Not [facility] Medical Equipment Procedure Code Equipment Code Equipment Origin al Text Equipment Identifier Dates Efren Perez [id number] Start: 06-13-2020 Mesh Symbotex 3d Green White Pet Macroporous Collagen [id number] 3.3x2.3mm - [id number] Start: 09-05-2022 Goals Date Patient Goal Desired Activity /State Functional Status Date Assessment Result Facility 02-23-2024 Functional Status Repositions self [facility] 08-24-2023 Functional Status Room located n ear nursing station, Door open, Non-Slip footwear, Room check performed [facility] 08-24-2023 [facility] Status [facility] 08-24-2023 Functional Status NPO Status Maintained A [facility] 08-24-2023 Functional Status [facility] 08-24-2023 Functional Status [facility] 08-23-2023 Functional Status Ambulation in [place], Ambulation in Room [facility] 04-15-2023 Functional Status Home Living Ad ditional Information OBJECTIVE Vitals: 124/86 Posture: lazy sitting posture, posterior pelvic tilt Gait: amb with 4WW and dragging O2 tank Transfers: WNL with use of UEs Sensation: no abnormalities or asymmetries with light touch Reflexes: NT Edema: none AROM: bilateral LEs - WNL ; lumbar flexion no restriction, lumbar extension - mild restriction, bilateral lateral flexion no restriction, bilateral rotation no restriction Functional: standing with no UE LOB x1 retro with self correct; bridge - pain Pelvis: symmetrical Special Tests Scour: neg bilat SUNNY: neg bilat FADDIR: neg bilat [facility] 03-04-2023 Functional Status Standard Safet y ID band on, Call device within reach, Bed in low position, Wheels locked, Upper/Half-Length side-rails up [facility] 03-02-2023 Functional Status Room check performed [facility] 03-01-2023 Functional Status [facility] 03-01-2023 Functional Status [facility] 03-01-2023 Functional Status [facility] 03-01-2023 Functional Status [facility] 03-01-2023 Functional Status [facility] 02-28-2023 Functional Status Other: [phone] [facility] 02-28-2023 Functional Status Repositions self [facility] 02-28-2023 Functional Status Returned to bed [facility] 02-28-2023 Functional Status Marissa Cesar [facility] 02-28-2023 Functional Status Identified as high risk, Non-Slip footwear, Room check performed, High risk door magnet present [facility] 02-28-2023 [facility] Functional Status Sequential Com pression Device bilateral knee high removed/off [facility] 02-27-2023 Functional Status Marissa Arsenio [facility] 02-27-2023 Functional Status Marissa Cesar [facility] 02-27-2023 [facility] Functional Status Patient refused [facility] 02-27-2023 Functional Status [facility] 02-27-2023 Functional Status Multilevel home [facility] 02-27-2023 Functional Status Sensory Deficits None A [facility] 09-06-2022 Are you deaf, or do you have serious difficulty hearing No 09/06/2022 1:39 PM Cony Mitchell RN No [facility] 09-06-2022 Are you blind, or do you have serious difficulty seeing, even when wearing glasses No 09/06/2022 1:39 PM Cony Mitchell RN No [facility] 09-06-2022 Do you have serious difficulty walking or climbing stairs No 09/06/2022 1:39 PM Cony Mitchell RN No [facility] 09-06-2022 Do you have difficul ty dressing or bathing No 09/06/2022 1:39 PM Cony Mitchell RN No [facility] 09-06-2022 Because of a physica l, mental, or emotional condition, do you have difficulty doing errands alone such as visiting a physician's office or shopping Yes 09/06/2022 1:39 PM Cony Mitchell RN Yes [facility] 05-26-2022 Functional Status Independent [facility] 05-26-2022 Functional Status Standard Safet y ID band on, Allergy Band on, Call device within reach, Bed in low position, Wheels locked, Upper/Half-Length side-rails up, Phone within reach, personal items within reach, Assistive devices within reach, Toileting device within reach, Bedside Cart Locked, Visitor at bedside, Safety level maintained [facility] Mental Status Date Assessment Result Facility 01-31-2025 Cognitive function Level Of Cons ciousness Follows Commands;Drowsy [facility] Work Phone: 10-04-2024 Cognitive function Voice/Name [facility] Work Phone: 08-30-2024 Cognitive function Voice/Name [facility] Work Phone: 06-21-2024 Cognitive function Level Of Cons ciousness Awake;Alert;Appropriate;Fol lows Commands [facility] Work Phone: 02-23-2024 Mental Status Oriented x 4 [facility] 08-24-2023 Mental Status Oriented x 4 [facility] 08-24-2023 Mental Status [facility] 08-24-2023 Mental Status [facility] 08-24-2023 Mental Status [facility] 08-23-2023 Mental Status Oriented x 4 [facility] 03-04-2023 Mental Status Orientation Oriented x 4 [facility] 03-02-2023 Mental Status Oriented x 4 [facility] 03-02-2023 Mental Status [facility] 03-01-2023 Mental Status [facility] 02-28-2023 Mental Status Oriented x 4 [facility] 02-28-2023 Mental Status [facility] 02-27-2023 Mental Status Orientation Asse ssment Oriented x 4 [facility] 02-27-2023 Mental Status [facility] 09-06-2022 Because of a physica l, mental, or emotional condition, do you have serious difficulty concentrating, remembering, or making decisions No 09/06/2022 1:39 PM EDT Cony Estrada, BECKIE No [facility] 05-26-2022 Mental Status Orientation Oriented x 4 [facility] 05-26-2022 Mental Status [facility] Clinical Notes 08-11-2009 to 04-21-2025 Telephone Encounter - Jose Summers, FITNESS TECHNICIAN - 02/28/2025 11:35 AM EDTTelephone Encounter - Jose Summers FITNESS TECHNICIAN - 02/28/2025 11:35 AM EDTTelephone Encounter - Lydia Hagan [facility] - 02/25/2025 4:24 PM EDT Note Date & Type Note Facility 04-21-2025 Note HNO ID: [id number] Author: BUD SCHULTZ MD Service: ? Author Type: Respiratory Therapist Type: Procedures Filed: 04/21/2025 14:59 Note Text: Attestation signed by Bud Schultz MD at 04/21/2025 2:59 PM The patient was able to successfully complete the testing session, both at rest and with ambulation. During rest, the patient remained normoxemic on room air. During activity, the patient remained normoxemic on room air. Conclusion There is no direct correlation between the magnitude of shortness of breath and the severity of hypoxemia. Bud Schultz MD April 21, 2025 2:59 PM RESPIRATORY THERAPY OXIMETRY WITH AMBULATION Oximetry with Ambulation Test for This Encounter O2 Device O2 Adapter NC O2 Flow SpO2% HR Activity Ft Walked (ft) Time (min) Avg Speed (MPH) R/A 97 80 Resting R/A 95 104 Walking 390 3 1.48 General Information Pulse Oximetry Site Total Time Spent Walking Assistance/O2 Supply Carrier Forehead 30 Wheeled Walker Comment: NAME: JULIANE Espitia PATIENT NAME: Santy Raza DATE: April 21, 2025 TIME: 9:09 AM OXIMETRY [facility] 04-18-2025 Note HNO ID: [id number] Author: BUD SCHULTZ MD Service: ? Author Type: Physician Type: Progress Notes Filed: 04/18/2025 12:03 Note Text: . Respiratory [place] Note Patient name: Santy Raza PCP: Deloris Chavez APRN.KHURRAM Referring Physician: Same Recording using Qumulo software for draft documentation of the visit was discussed with the patient/authorized employee representative; all questions welcomed and answered. Patient/authorized employee representative agreed to proceed CC: Recurrent bronchitis/COPD HPI: Santy Raza 64 year old female former 37 pack year smoker, quitting in 2024 with PMH significant for morbid obesity, TRINI (intolerant of CPAP), hypothyroidism, HTN, rhinitis, participating in lung cancer screening program being seen for recurrent bronchitis. Patient has a history of recurrent bronchitis requiring antibiotics and steroids, multiple times per year. Her bronchitis has dramatically improved since she stopped smoking this past bring. She has dyspnea on exertion which has been stable. No current chronic cough with mucus production. She hears occasional wheezing at night only when she is supine. She mainly sleeps in a recliner. She does have a history of acid reflux. She uses 2 L of oxygen with exertion and uses oxygen at night. She is supposed to be on CPAP but was unable to tolerate wearing a mask. Current inhaled therapy consist of Trelegy Ellipta with as needed Symbicort. She has had problems with recurrent thrush. DME: [facility] 2 L with actvity and at night DATA: COPD Assessment Test I never cough 0 1 2 3 4 5 I cough all the time; Score 3 I have no phlegm 0 1 2 3 4 5 My chest is completely full of phlegm; Score 2 My chest does not feel tight at all 0 1 2 3 4 5 My chest chest feels very tight; Score 3 When I walk up a hill or one flight of stairs I am not breathless 0 1 2 3 4 5 When I walk up a hill or one flight or stairs I am very breathless; Score 5 I am not limited doing any activities at home 0 1 2 3 4 5 I am very limited doing activities at home; Score 3 I am confident leaving my home despite my lung condition 0 1 2 3 4 5 I am not at all confident leaving my home because of my lung condition; Score 2 I sleep soundly 0 1 2 3 4 5 don't sleep soundly because of my lungs; Score 3 I have lots of energy 0 1 2 3 4 5 I have no energy at all; Score 3 Total Score: 24 PFT 03/2025: Spirometry shows combined restriction and obstruction. Diffusion capacity normal Labs: Eosinophils % % 0.0 0.0 0.0 0.0 0.0 2.5 1.8 Abs Eosin <0.46 k/uL <0.03 <0.03 <0.03 <0.03 <0.03 0.20 0.23 Imaging / Diagnostic Studies: DATE OF EXAM: Mar 31 2025 10:13AM [facility] [id number] - CT LUNG SCREEN WO IVCON / COMPARISON: Chest CT dated 01/16/2024 RESULT: Are nodules present? Yes, 1-5 nodules Stable noncalcified solid nodules including a 4 mm right upper lobe nodule on image 46, a 4 mm right upper lobe nodule on image 84, a 3mm right upper lobe nodule on image 105, a 5 mm right lower lobe nodule on image 143, a 4 mm left upper lobe nodule on image 85. Calcified granulomas are present. OTHER LUNG FINDINGS: Mild emphysema. There is diffuse bilateral mild bronchial wall thickening. No endotracheal or central endobronchial lesion is identified. Scattered linear atelectasis/scarring in the lingula, and left lower lobe. CORONARY ARTERY CALCIFICATION:Mild. CARDIOVASCULAR: The thoracic aorta and main pulmonary artery are normal in caliber. No pericardial effusion or thickening. MEDIASTINUM: No enlarged thoracic lymph nodes. Calcified lymph nodes indicates evidence of prior granulomatous infection, such as histoplasmosis or tuberculosis OTHER SIGNIFICANT FINDINGS: Degenerative changes are seen. Review of chest CT shows minimal upper lobe emphysema, evidence of old granulomatous disease PAST MEDICAL HISTORY Diagnosis Date Allergic rhinitis, cause unspecified BMI 45.0-49.9, adult (HCC) 08/27/2022 COPD (chronic obstructive pulmonary disease) ([facility]) Essential hypertension, benign Hypothyroidism 09/26/2015 Mixed conductive and sensorineural hearing loss TRINI (obstructive sleep apnea) No on CPAP Other anxiety states Perforated tympanic membrane 03/29/2011 S/P repair of ventral hernia 09/06/2022 Synovitis and tenosynovitis, unspecified Tobacco abuse 03/23/2012 ALLERGIES Allergen Reactions Doxycycline Monohyd* Vomiting Hctz [Amiloride-Hyd* Itching Levaquin [Levofloxa* Other: See Comments Jittery nervousness Meloxicam Itching, Rash, Swelling Peanuts Itching amitriptyline (ELAVIL) 25 mg tablet Take 1 tablet by mouth daily at bedtime. ofloxacin (FLOXIN) 0.3 % otic solution Use 5 drops in both ears once daily. ssetbdciorg-pytxczkyr-arvxqvoe (TRELEGY ELLIPTA) 100-62.5-25 mcg inhalation powder Inhale 1 puff as instructed once daily. desvenlafaxine ER (PRISTIQ) 50 mg 24 hr tablet Take 1 tablet by mouth once (more content not included)... [facility] 04-04-2025 Note HNO ID: [id number] Author: DELORIS CHAVEZ APRN.CONTENT MANAGEMENT CONSULTANT Service: ? Author Type: Nurse Practitioner Type: Progress Notes Filed: 04/04/2025 22:41 Note Text: This is a 64 year old female who presents today with: The patient is a 64-year-old female presenting for reauthorization of home oxygen therapy after an insurance change. HISTORY OF PRESENT ILLNESS: Santy Raza is a 64-year-old female presenting for oxygen prescription renewal due to insurance change. Oxygen Therapy: - Requires a new oxygen prescription due to insurance change. - Has been attempting to contact the responsible democrat for two weeks without success. - Uses oxygen intermittently during the day, especially when ambulating or performing activities like cooking. - Consistently uses oxygen at night, reporting improved sleep quality. - Previous CPAP use was unsuccessful due to episodes of dyspnea upon waking. - Previous sleep study showed oxygen saturation dropping to 77%. PAST MEDICAL HISTORY: PAST MEDICAL HISTORY Diagnosis Date Allergic rhinitis, cause unspecified BMI 45.0-49.9, adult ([facility]) 08/27/2022 Essential hypertension, benign Hypothyroidism 09/26/2015 Mixed conductive and sensorineural hearing loss TRINI on CPAP Other anxiety states Perforated tympanic membrane 03/29/2011 S/P repair of ventral hernia 09/06/2022 Synovitis and tenosynovitis, unspecified Tobacco abuse 03/23/2012 PAST SURGICAL HISTORY Procedure Laterality Date COLONOSCOPY SCRN NOT HIGH RISK 09/13/2020 EGD 10/25/2020 L'SCOPE DX W/WO BRUSHINGS/WASHINGS 09/05/2022 Dr. Guadarrama LIG/TRNSXJ FLP TUBE ABDL/VAG APPR UNI/BI Tubal ligation LX REPAIR RECURRENT VENTRAL HERNIA 09/05/2022 open, w/ mesh. Dr. Guadarrama MYRINGOTOMY ASPIRAND/EUSTACHIAN TUBE NFLTJ ANES Myringotomy/tubes NEUROPLASTY AND/TRANSPOS MEDIAN NRV CARPAL TUNNE Bilateral 01/15/2019 Bilateral carpal tunnel release REDUCTION OF LARGE BREAST 04/23/2016 STEREOTACT BREAST BX EA LESION PC 09/30/2018 left stereotactic breast biopsy w/vacuum assisted core needle biopsy, specimen radiograph and marker placement ALLERGIES Doxycycline Monohydrate, Hctz [Amiloride-Hydrochlorothiazide] , Levaquin [Levofloxacin], Meloxicam, and Peanuts MEDICATIONS Current Outpatient Medications Medication Sig bdfgazoispf-geiawrirx-rwqumswr (TRELEGY ELLIPTA) 100-62.5-25 mcg inhalation powder Inhale 1 puff as instructed once daily. desvenlafaxine ER (PRISTIQ) 50 mg 24 hr tablet Take 1 tablet by mouth once daily. ALPRAZolam (XANAX) 1 mg tablet Take 1 tablet by mouth two times a day as needed for up to 30 days. ofloxacin (FLOXIN) 0.3 % otic solution Use 5 drops in both ears once daily. (Patient not taking: Reported on 03/31/2025) Nebulizer Accessories misc 1 each as directed. Nebulizer tubing and mouth piece. buPROPion XL (WELLBUTRIN XL) 300 mg 24 hr tablet Take 1 tablet by mouth once daily. lisinopril (ZESTRIL) 40 mg tablet Take 1 tablet by mouth once daily. amLODIPine (NORVASC) 5 mg tablet Take 1 tablet by mouth once daily. levothyroxine (LEVOXYL) 200 mcg tablet Take 1 tablet by mouth once daily. Take on empty stomach. For thyroid lansoprazole (PREVACID) 15 mg capsule Take 1 capsule by mouth once daily. atorvastatin (LIPITOR) 10 mg tablet Take 1 tablet by mouth daily at bedtime. For cholesterol. amitriptyline (ELAVIL) 25 mg tablet Take 1 tablet by mouth daily at bedtime. albuterol (PROVENTIL) 2.5 mg /3 mL (0.083 %) nebulizer solution Use 3 mL via nebulizer every 6 hours as needed for wheezing/shortness of breath. benzonatate (TESSALON PERLES) 100 mg capsule Take 1-2 capsules by mouth three times a day as needed for cough. budesonide-formoterol (SYMBICORT) 160-4.5 mcg/actuation inhaler Inhale 2 puffs as instructed two times a day. oxygen-air delivery systems (WALKABOUT MINI OXYGEN SYSTEM MISC) furosemide (LASIX) 20 mg tablet Take 1 tablet by mouth once daily. If you have increased swelling, okay to increase to 2 tablets daily for 2-3 days. Do not do more than once weekly. HYDROcodone-acetaminophen (NORCO) 5-325 mg per tablet Take 1 tablet by mouth every 8 hours as needed for pain. From pain management. Aware to not use with xanax. loratadine (CLARITIN) 10 mg tablet Take 1 tablet by mouth once daily. Ipratropium (ATROVENT HFA) 17 mcg/actuation inhaler Inhale 2 Puffs as instructed every 6 hours. Cholecalciferol, Vitamin D3, 125 mcg (5,000 unit) cap Take 1 capsule by mouth once daily. CPAP autoCPAP 5-15 cmH2O, mask, tubing, filters, heated humidity, lifetime supplies. Dx: TRINI Nebulizer 1 Each as needed. NEBULIZER TUBING AND SUPPLIES. DX: CHRONIC BRONCHITIS J41.1, WHEEZING R06.2. FAX TO [employer] [phone] COMPOUNDED PRESCRIPTION Nebulizer for albuterol every fours as needed ICD: R06.2 No current facility-administered medications for this visit. FAMILY HISTORY Problem Relation Age of Onset Coronary Artery Disease Mother PE Asthma M (more content not included)... [facility] 04-04-2025 Note HNO ID: [id number] Author: JOSE SUMMERS LPN Service: ? Author Type: Licensed Nurse Type: Progress Notes Filed: 04/04/2025 22:41 Note Text: SpO2 96% @ rest on RA. SpO2 93% with ambulation on RA. Pt did become short of breath while walking, but did not drop below 93%. [facility] 03-31-2025 Note HNO ID: [id number] Author: GARETH DOMINGO APRN.KHURRAM Service: ? Author Type: Nurse Practitioner Type: Progress Notes Filed: 03/31/2025 11:55 Note Text: LUNG SCREENING ANNUAL VISIT PRIMARY CARE PHYSICIAN: Deloris Chavez APRN.CONTENT MANAGEMENT CONSULTANT PULMONARY PROVIDER: Dr. Jagdish Schultz in the past Results will be communicated via letter or electronic record if applicable. Visit Delivery: In Person Patient Visit Type: established Current or Ex-smoker? Ex Exam Type: annual LDCT Number of Pack Years: 37 Current smoker (=0) or Number of Years since Quit: <1 year The patient's smoking history is similar to prior year shared decision visit. The reason for the discrepancy is NA Chief Complaint: Established patient in lung cancer screening program here for annual follow-up. Impression / Recommendations Santy Raza presents for annual lung cancer screening annual exam and nodule evaluation. Plan: Indeterminate pulmonary nodules: Previously identified nodules appear stable and no new nodules of concern were seen on the exam. Low dose CT Scan to be repeated in one year. Plan subject to change pending final radiology report and recommendations. Nature of the lung nodule(s) and the options for further evaluation discussed in detail with patient. Santy Raza expressed understanding and is in agreement with plan. 2. Encounter for screening for malignant neoplasm of respiratory organs I have determined that the patient is eligible for continued low dose CT screening based on age, absence of signs or symptoms of lung cancer, smoking history and total pack years. The patient was counseled on the importance of adherence to annual LDCT lung cancer screening, impact of comorbidities and ability or willingness to undergo diagnosis and treatment. The patient understands and feels comfortable with it: Yes. 3. Nicotine Dependence The patient was counseled on the importance of maintaining cigarette smoking abstinence - The patient is committed to remaining abstinent from tobacco. Pt quit cold turkey about 5 months ago. Doing well. 4. Asthma with chronic obstructive pulmonary disease (COPD) (HCC) She is on symbicort daily and has continued shortness of breath, cough and wheezing. Will change to triple therapy inhaler Trelegy. She was on Spiriva with the Symbicort in the past, but it sounds like there was coverage issue. - xgvcdwyhvco-cnkoapbnm-bnriiuro (TRELEGY ELLIPTA) 100-62.5-25 mcg inhalation powder; Inhale 1 puff as instructed once daily. Dispense: 1 each; Refill: 11 Gareth Domingo APRN.[facility] March 31, 2025 11:46 AM History of Present Illness: Santy Raza is a 64 year old female who is presenting today for annual lung cancer screening LDCT and nodule surveillance/management. Patient has multiple nodules found on previous lung cancer screening CT. Last CT was performed on 01/16/2024 and was LUNG RADS Category 2. Previous potentially significant incidental findings on imaging: None. Patient is a former smoker with a 37 pack year history. Patient quit smoking 5 months ago at age 63 . Patient will continue to be eligible for lung cancer screening The patient does not have any symptoms or signs of lung cancer. Patient has SOB with their daily activity. She uses a rollator walker and oxygen with walking. Occasional wheezing. Patient denies feeling of chest tightness/congestion in the chest. Patient does not have a new or concerning cough, and denies hemoptysis. Patient does have a chronic daily cough. Denies regular or recent fevers/chills. Patient does not have any significant unintentional weight loss. Patient denies having any respiratory infections or COVID-19 in the past few months. Using Symbicort daily. Albuterol as needed. She did have another inhaler she used with the symbicort, but the insurance stopped covering it. She has not noticed an improvement in her symptoms since quitting. She still has shortness of breath with exertion like going up the stairs to bed. Still has cough and wheezing. Has been diagnosed with asthma and COPD. Symptoms more consistent with asthma on prior evaluations. Modified Medical Research [place] Dyspnea Scale (MMRC) I am too breathless to leave the house or I am breathless when dressing 4 Last 12 Encounter Wt Readings: Date: Wt: 03/31/2025 144.7 kg (319 lb) 03/30/2025 144.7 kg (319 lb) 02/07/2025 142.4 kg (314 lb) 11/03/2024 143.7 kg (316 lb 12.8 oz) 08/23/2024 139.7 kg (308 lb) 08/19/2024 141.7 kg (312 lb 8 oz) 06/02/2024 140.5 kg (309 lb 11.9 oz) 04/30/2024 141.1 kg (311 lb 1.1 oz) 04/19/2024 139.3 kg (307 lb) 04/14/2024 139.8 kg (308 lb 3.3 oz) 01/21/2024 139.7 kg (308 lb) 12/24/2023 139.7 kg (308 lb) Social History Tobacco Use: Types: Cigarettes Past Medical History: PAST MEDICAL HISTORY Diag (more content not included)... [facility] 03-31-2025 Note HNO ID: [id number] Author: KELIN DE LOS SANTOS RT(R) Service: ? Author Type: Automatic Driller And Reamer Type: Progress Notes Filed: 03/31/2025 15:56 Note Text: Radiology Service Progress Note PATIENT NAME: Santy Raza DATE OF SERVICE: March 31, 2025 TIME: 3:55 PM PATIENT IDENTITY VERIFICATION COMPLETED USING TWO (2) IDENTIFIERS: Name and Date of confirmed by patient verbally. FALL SCREENING: Has the patient had 2 falls in the last year or 1 fall with injury or currently using an Ambulatory Assistive Device (Walker, Cane, Wheelchair, Crutches, etc.)? No PATIENT GENDER DATA: Assigned female at . status: : No status: NO. PATIENT RELEVANT IMPLANT DATA REVIEWED: Yes PATIENT PRESENTS WITH AN IMPLANTABLE OR ATTACHED TIGHTENER: No RADIOLOGY DEPARTMENT: CT; Exam(s) Completed: Lung Screening. Anesthesia: No PERIPHERAL IV DATA: Not applicable SIGNED BY: RT Dani(R) March 31, 2025 3:55 PM [facility] 03-31-2025 Note HNO ID: [id number] Author: JOE HEBERT Mammo Tech Service: ? Author Type: Automatic Driller And Reamer Type: Progress Notes Filed: 03/31/2025 09:33 Note Text: Radiology Service Progress Note PATIENT NAME: Santy Raza DATE OF SERVICE: March 31, 2025 TIME: 9:33 AM PATIENT IDENTITY VERIFICATION COMPLETED USING TWO (2) IDENTIFIERS: Name and Date of confirmed by patient verbally. FALL SCREENING: Has the patient had 2 falls in the last year or 1 fall with injury or currently using an Ambulatory Assistive Device (Walker, Cane, Wheelchair, Crutches, etc.)? No PATIENT GENDER DATA: Assigned female at . status: : No status: NO. PATIENT RELEVANT IMPLANT DATA REVIEWED: Not Applicable PATIENT PRESENTS WITH AN IMPLANTABLE OR ATTACHED TIGHTENER: No RADIOLOGY DEPARTMENT: Mammography PERIPHERAL IV DATA: Not applicable SIGNED BY: Santos Cross March 31, 2025 9:33 AM [facility] 03-28-2025 Note HNO ID: [id number] Author: DELORIS CHAVEZ APRN.CONTENT MANAGEMENT CONSULTANT Service: ? Author Type: Nurse Practitioner Type: Progress Notes Filed: 03/28/2025 20:27 Note Text: This is a 64 year old female who presents today with: The patient is a 64-year-old female with COPD and depression, presenting for evaluation of persistent depressive symptoms and adjustment of antidepressant therapy. HISTORY OF PRESENT ILLNESS: Santy is a 64-year-old female with a history of anxiety, depression, and COPD, presenting for evaluation of anxiety and depression, chest wall pain, and follow-up for COPD. Anxiety and Depression: - Currently taking Prozac; reports it is not effective. - Describes persistent anxiety with racing thoughts and mood fluctuations. - Spends increased time alone in her room; daughter has expressed concern. - Recent stressors include conflicts with ex-, who has dementia. -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 [facility] Telephone encounter Note * Telephone Encounter - Jose Summers LPN - 12/15/2024 8:30 AM EDT Prescription Refill Information The patient has been identified by name and date of : Yes Caregiver verified no other encounters exist for this prescription request: Yes Caregiver confirmed with patient/requestor that no other refills are due, in the near future, with this provider at this time: Yes The last office visit in the department: 09/14/24 Does the patient have a future office visit with this provider/department: No Requested Prescriptions Pending Prescriptions Disp Refills buPROPion XL (WELLBUTRIN XL) 300 mg 24 hr tablet 30 tablet 5 Sig: Take 1 tablet by mouth once daily. Jose Summers LPN December 15, 2024 8:[address] [facility]07-02-2025 Miscellaneous Notes* Telephone Encounter - Jose Summers LPN - 12/15/2024 8:30 AM EDT Prescription Refill Information The patient has been identified by name and date of : Yes Caregiver verified no other encounters exist for this prescription request: Yes Caregiver confirmed with patient/requestor that no other refills are due, in the near future, with this provider at this time: Yes The last office visit in the department: 09/14/24 Does the patient have a future office visit with this provider/department: No Requested Prescriptions Pending Prescriptions Disp Refills buPROPion XL (WELLBUTRIN XL) 300 mg 24 hr tablet 30 tablet 5 Sig: Take 1 tablet by mouth once daily. Jose Summers LPN December 15, 2024 8:30 AM documented in this encounterSt. [facility] Telephone encounter Note * Telephone Encounter - Jose Summers LPN - 12/13/2024 11:02 AM EDT 90 day rx with 3 refills was sent to [facility] on 11/28/24. MC message to pt advising of the same. [facility]06-30-2025 Miscellaneous Notes* Telephone Encounter - Jose Summers LPN - 12/13/2024 11:02 AM EDT 90 day rx with 3 refills was sent to [facility] on 11/28/24. MC message to pt advising of the same. documented in this encounterSt. [facility] Telephone encounter Note * Telephone Encounter - Jose Summers LPN - 11/29/2024 8:15 AM EDT Prescription Refill Information The patient has been identified by name and date of : Yes Caregiver verified no other encounters exist for this prescription request: Yes Caregiver confirmed with patient/requestor that no other refills are due, in the near future, with this provider at this time: Yes The last office visit in the department: 09/14/24 Does the patient have a future office visit with this provider/department: No Requested Prescriptions Pending Prescriptions Disp Refills lansoprazole (PREVACID) 15 mg capsule 30 capsule 11 Sig: Take 1 capsule by mouth once daily. Jose Summers LPN November 29, 2024 8:[address] [facility]06-16-2025 Miscellaneous Notes* Telephone Encounter - Jose Summers LPN - 11/29/2024 8:15 AM EDT Prescription Refill Information The patient has been identified by name and date of : Yes Caregiver verified no other encounters exist for this prescription request: Yes Caregiver confirmed with patient/requestor that no other refills are due, in the near future, with this provider at this time: Yes The last office visit in the department: 09/14/24 Does the patient have a future office visit with this provider/department: No Requested Prescriptions Pending Prescriptions Disp Refills lansoprazole (PREVACID) 15 mg capsule 30 capsule 11 Sig: Take 1 capsule by mouth once daily. Jose Summers LPN November 29, 2024 8:15 AM documented in this encounterSt. [facility] Telephone encounter Note * Telephone Encounter - Jose Summers LPN - 11/29/2024 8:07 AM EDT Prescription Refill Information The patient has been identified by name and date of : Yes Caregiver verified no other encounters exist for this prescription request: Yes Caregiver confirmed with patient/requestor that no other refills are due, in the near future, with this provider at this time: Yes The last office visit in the department: 09/14/24 Does the patient have a future office visit with this provider/department: No Requested Prescriptions Pending Prescriptions Disp Refills atorvastatin (LIPITOR) 10 mg tablet 90 tablet 3 Sig: Take 1 tablet by mouth daily at bedtime. For cholesterol. amitriptyline (ELAVIL) 25 mg tablet 90 tablet 3 Sig: Take 1 tablet by mouth daily at bedtime. Jose Summers LPN November 29, 2024 8:[address] [facility]06-16-2025 Miscellaneous Notes* Telephone Encounter - Jose Summers LPN - 11/29/2024 8:07 AM EDT Prescription Refill Information The patient has been identified by name and date of : Yes Caregiver verified no other encounters exist for this prescription request: Yes Caregiver confirmed with patient/requestor that no other refills are due, in the near future, with this provider at this time: Yes The last office visit in the department: 09/14/24 Does the patient have a future office visit with this provider/department: No Requested Prescriptions Pending Prescriptions Disp Refills atorvastatin (LIPITOR) 10 mg tablet 90 tablet 3 Sig: Take 1 tablet by mouth daily at bedtime. For cholesterol. amitriptyline (ELAVIL) 25 mg tablet 90 tablet 3 Sig: Take 1 tablet by mouth daily at bedtime. Jose Summers LPN November 29, 2024 8:07 AM documented in this encounterSt. Mary[facility]25 NoteHNO ID: [id number] Author: TITO ANN APRN.CONTENT MANAGEMENT CONSULTANT Service: ? Author Type: Nurse Practitioner Type: Progress Notes Filed: 11/03/2024 11:59 Note Text: Subjective HPI Nontoxic-appearing 63-year-old female. Chief complaints cough chest congestion. Duration of symptoms 5 days. Associated symptoms cough chest congestion sore throat body aches chills low-grade fever. Cough has became more bothersome more productive. Sore throat she contributes the coughing. History of COPD. Unknown sick contacts. No chest pain hemoptysis or pleuritic pain. Past medical history prescription medications allergies reviewed. .Patient presents with: Sore Throat: ST, fever and cough x 5 days PAST MEDICAL HISTORY Diagnosis Date Allergic rhinitis, cause unspecified BMI 45.0-49.9, adult (HCC) 08/27/2022 Essential hypertension, benign Hypothyroidism 09/26/2015 Mixed conductive and sensorineural hearing loss TRINI on CPAP Other anxiety states Perforated tympanic membrane 03/29/2011 S/P repair of ventral hernia 09/06/2022 Synovitis and tenosynovitis, unspecified Tobacco abuse 03/23/2012 PAST SURGICAL HISTORY Procedure Laterality Date COLONOSCOPY SCRN NOT HIGH RISK 09/13/2020 EGD 10/25/2020 L'SCOPE DX W/WO BRUSHINGS/WASHINGS 09/05/2022 Dr. Guadarrama LIG/TRNSXJ FLP TUBE ABDL/VAG APPR UNI/BI Tubal ligation LX REPAIR RECURRENT VENTRAL HERNIA 09/05/2022 open, w/ mesh. Dr. Guadarrama MYRINGOTOMY ASPIRAND/EUSTACHIAN TUBE NFLTJ ANES Myringotomy/tubes NEUROPLASTY AND/TRANSPOS MEDIAN NRV CARPAL TUNNE Bilateral 01/15/2019 Bilateral carpal tunnel release REDUCTION OF LARGE BREAST 04/23/2016 STEREOTACT BREAST BX EA LESION PC 09/30/2018 left stereotactic breast biopsy w/vacuum assisted core needle biopsy, specimen radiograph and marker placement ALLERGIES Doxycycline Monohydrate, Hctz [Amiloride-Hydrochlorothiazide], Levaquin [Levofloxacin], Meloxicam, and Peanuts MEDICATIONS albuterol (PROVENTIL) 2.5 mg /3 mL (0.083 %) nebulizer solution Use 3 mL via nebulizer every 6 hours as needed for wheezing/shortness of breath. benzonatate (TESSALON PERLES) 100 mg capsule Take 1-2 capsules by mouth three times a day as needed for cough. budesonide-formoterol (SYMBICORT) 160-4.5 mcg/actuation inhaler Inhale 2 puffs as instructed two times a day. venlafaxine ER (EFFEXOR XR) 150 mg 24 hr capsule Take 1 capsule by mouth once daily. Start after taking 75 mg X 1 week. Stop the citalopram when starting this dose. ondansetron orally disintegrating (ZOFRAN ODT) 4 mg disintegrating tablet Take 1 tablet by mouth every 8 hours as needed for nausea/vomiting. oxygen-air delivery systems ([employer] [facility]) azithromycin (ZITHROMAX) 250 mg tablet Take 1 tablet by mouth as directed. Take 2 tablets by mouth on Day 1, then 1 tablet by mouth every day thereafter for 4 days lansoprazole (PREVACID) 15 mg capsule Take 1 capsule by mouth once daily. buPROPion XL (WELLBUTRIN XL) 300 mg 24 hr tablet Take 1 tablet by mouth once daily. ofloxacin (FLOXIN) 0.3 % otic solution Use 5 Drops in both ears once daily. furosemide (LASIX) 20 mg tablet Take 1 tablet by mouth once daily. If you have increased swelling, okay to increase to 2 tablets daily for 2-3 days. Do not do more than once weekly. benzonatate (TESSALON PERLE) 100 mg capsule Take 2 capsules by mouth three times a day as needed. HYDROcodone-acetaminophen (NORCO) 5-325 mg per tablet Take 1 tablet by mouth every 8 hours as needed for pain. From pain management. Aware to not use with xanax. loratadine (CLARITIN) 10 mg tablet Take 1 tablet by mouth once daily. levothyroxine (LEVOXYL) 200 mcg tablet Take 1 tablet by mouth once daily. Take on empty stomach. For thyroid amitriptyline (ELAVIL) 25 mg tablet Take 1 tablet by mouth daily at bedtime. amLODIPine (NORVASC) 5 mg tablet Take 1 tablet by mouth once daily. Ipratropium (ATROVENT HFA) 17 mcg/actuation inhaler Inhale 2 Puffs as instructed every 6 hours. lisinopril (ZESTRIL) 40 mg tablet Take 1 tablet by mouth once daily. atorvastatin (LIPITOR) 10 mg tablet Take 1 tablet by mouth daily at bedtime. For cholesterol. Cholecalciferol, Vitamin D3, 125 mcg (5,000 unit) cap Take 1 capsule by mouth once daily. Nebulizer Accessories misc 1 Each as directed. Nebulizer tubing and mouth piece. faxed to CPAP [employer]AP 5-15 cmH2O, mask, tubing, filters, heated humidity, lifetime supplies. Dx: TRINI Nebulizer 1 Each as needed. NEBULIZER TUBING AND SUPPLIES. DX: CHRONIC BRONCHITIS J41.1, WHEEZING R06.2. FAX TO [employer] [phone] COMPOUNDED PRESCRIPTION Nebulizer for albuterol every fours as needed ICD: R06.2 FAMILY HISTORY Problem Relation Age of Onset Coronary Artery Disease Mother PE Asthma Mother Multiple Sclerosis Mother No Known Problems Father Ischemic Heart Disease Sister other (irregular heart beat) Sister Crohn's Disease Sister Heart dis (more content not included)...[facility]05-16-2025 Telephone encounter Note* Telephone Encounter - Jose Summers LPN - 10/29/2024 1:49 PM EDT Prescription Refill Information The patient has been identified by name and date of : Yes Caregiver verified no other encounters exist for this prescription request: Yes Caregiver confirmed with patient/requestor that no other refills are due, in the near future, with this provider at this time: Yes The last office visit in the department: 09/14/24 Does the patient have a future office visit with this provider/department: No Requested Prescriptions Pending Prescriptions Disp Refills albuterol (PROVENTIL) 2.5 mg /3 mL (0.083 %) nebulizer solution 300 mL 1 Sig: Use 3 mL via nebulizer every 6 hours as needed for wheezing/shortness of breath. Jose Summers LPN October 29, 2024 1:[address] [facility]05-16-2025 Miscellaneous Notes* Telephone Encounter - Jose Summers LPN - 10/29/2024 1:49 PM EDT Prescription Refill Information The patient has been identified by name and date of : Yes Caregiver verified no other encounters exist for this prescription request: Yes Caregiver confirmed with patient/requestor that no other refills are due, in the near future, with this provider at this time: Yes The last office visit in the department: 09/14/24 Does the patient have a future office visit with this provider/department: No Requested Prescriptions Pending Prescriptions Disp Refills albuterol (PROVENTIL) 2.5 mg /3 mL (0.083 %) nebulizer solution 300 mL 1 Sig: Use 3 mL via nebulizer every 6 hours as needed for wheezing/shortness of breath. Jose Summers LPN October 29, 2024 1:49 PM documented in this encounterSt. [facility] Telephone encounter Note * Telephone Encounter - Kathy Shane LPN - 10/26/2024 7:03 AM EDT Prescription Refill Information The patient has been identified by name and date of : Yes Caregiver verified no other encounters exist for this prescription request: Yes Caregiver confirmed with patient/requestor that no other refills are due, in the near future, with this provider at this time: Yes The last office visit in the department: 09/14/2024 Does the patient have a future office visit with this provider/department: No Requested Prescriptions Pending Prescriptions Disp Refills benzonatate (TESSALON PERLES) 100 mg capsule 40 capsule 1 Sig: Take 1-2 capsules by mouth three times a day as needed for cough. Kathy Shane LPN October 26, 2024 7:[address] [facility]05-13-2025 Miscellaneous Notes* Telephone Encounter - Kathy Shane LPN - 10/26/2024 7:03 AM EDT Prescription Refill Information The patient has been identified by name and date of : Yes Caregiver verified no other encounters exist for this prescription request: Yes Caregiver confirmed with patient/requestor that no other refills are due, in the near future, with this provider at this time: Yes The last office visit in the department: 09/14/2024 Does the patient have a future office visit with this provider/department: No Requested Prescriptions Pending Prescriptions Disp Refills benzonatate (TESSALON PERLES) 100 mg capsule 40 capsule 1 Sig: Take 1-2 capsules by mouth three times a day as needed for cough. Kathy Shane LPN October 26, 2024 7:03 AM documented in this encounterSt. [facility] Telephone encounter Note * Telephone Encounter - Kathy Shane LPN - 10/26/2024 7:02 AM EDT Prescription Refill Information The patient has been identified by name and date of : Yes Caregiver verified no other encounters exist for this prescription request: Yes Caregiver confirmed with patient/requestor that no other refills are due, in the near future, with this provider at this time: Yes The last office visit in the department: 09/14/2024/ Does the patient have a future office visit with this provider/department: No Requested Prescriptions Pending Prescriptions Disp Refills budesonide-formoterol (SYMBICORT) 160-4.5 mcg/actuation inhaler 1 each 5 Sig: Inhale 2 puffs as instructed two times a day. Kathy Shane LPN October 26, 2024 7:[address] [facility]05-13-2025 Miscellaneous Notes* Telephone Encounter - Kathy Shane LPN - 10/26/2024 7:02 AM EDT Prescription Refill Information The patient has been identified by name and date of : Yes Caregiver verified no other encounters exist for this prescription request: Yes Caregiver confirmed with patient/requestor that no other refills are due, in the near future, with this provider at this time: Yes The last office visit in the department: 09/14/2024/ Does the patient have a future office visit with this provider/department: No Requested Prescriptions Pending Prescriptions Disp Refills budesonide-formoterol (SYMBICORT) 160-4.5 mcg/actuation inhaler 1 each 5 Sig: Inhale 2 puffs as instructed two times a day. Kathy Shane LPN October 26, 2024 7:02 AM documented in this encounterSt. [facility] Evaluation note* Diagnosis Onset Date Resolution Status Admit Date S/P repair of ventral hernia acute October 18, 2024 9:36am [facility] Work Phone: 1(342) 696-709204-28-2025 Telephone encounter Note* Telephone Encounter - Jose Summers LPN - 10/11/2024 10:19 AM EDT Prescription Refill Information The patient has been identified by name and date of : Yes Caregiver verified no other encounters exist for this prescription request: Yes Caregiver confirmed with patient/requestor that no other refills are due, in the near future, with this provider at this time: Yes The last office visit in the department: 09/14/24 Does the patient have a future office visit with this provider/department: No Requested Prescriptions Pending Prescriptions Disp Refills venlafaxine ER (EFFEXOR XR) 150 mg 24 hr capsule 90 capsule 1 Sig: Take 1 capsule by mouth once daily. Start after taking 75 mg X 1 week. Stop the citalopram when starting this dose. Jose Summers LPN October 11, 2024 10:[address] [facility]04-28-2025 Miscellaneous Notes* Telephone Encounter - Jose Summers LPN - 10/11/2024 10:19 AM EDT Prescription Refill Information The patient has been identified by name and date of : Yes Caregiver verified no other encounters exist for this prescription request: Yes Caregiver confirmed with patient/requestor that no other refills are due, in the near future, with this provider at this time: Yes The last office visit in the department: 09/14/24 Does the patient have a future office visit with this provider/department: No Requested Prescriptions Pending Prescriptions Disp Refills venlafaxine ER (EFFEXOR XR) 150 mg 24 hr capsule 90 capsule 1 Sig: Take 1 capsule by mouth once daily. Start after taking 75 mg X 1 week. Stop the citalopram when starting this dose. Jose Summers LPN October 11, 2024 10:19 AM documented in this encounter[facility] Consult note [facility] Medical Records Department [address] [facility] [place] [address] Anesthesia Postop Eval II 10/04/24 1251 MR#: [id number] Acct: [id number] Name: SANTY RAZA Rep #:[id number] : 1960 63 From: Florinda Martinez MD PCP: Deloris Haagen, YOUTH CORRECTIONS OFFICER-C Status:REG S DC Y Race: C Location: [place] [address]- Anesthesia Postop Eval I Sum Postop Eval Completion status Anesthesia document: Postop Eval 1 completed: Yes Anesthesia Postop Eval I Summary Anesthesia Postop Eval I Summary: Anesthesia Postop Eval I: Assessment Summary Airway patent Yes 10/04/24 12:28 COVERAGE ANALYST.HBARR Spontaneous unlabored Yes 10/04/24 12:28 COVERAGE ANALYST.HBARR respirations Mental status Awake 10/04/24 12:28 COVERAGE ANALYST.HBARR nausea No 10/04/24 12:28 COVERAGE ANALYST.HBARR Vomiting No 10/04/24 12:28 COVERAGE ANALYST.HBARR Anesthesia Postop Eval I: Fluid Summary Crystalloid volume administer 900 10/04/24 12:28 COVERAGE ANALYST.HBARR (ml) Colloids volume administered ( ml) Blood Product volume administered (ml) Total IV fluid infused 900 10/04/24 12:28 COVERAGE ANALYST.HBARR Anesthesia Postop Eval I: Summary Notes Anesthesia Complication No 10/04/24 12:28 COVERAGE ANALYST.HBARR Anesthesia Complication Comment: Post-operative progress note Anesthesia: Postop Eval II Evaluation Mental status: Awake Pain Level: 0 nausea: No Vomiting: No 10/04/24 1251 > Date _ Florinda Vidales Signature: Date CC: ~ Signed [facility]04-21-2025 Consult note Author Essence Tijerina [facility] Note Date/Time October 04, 2024 12: 28pm [facility] Medical Records Department [address] [place] [address] Anesthesia Postop Eval I 10/04/24 1227 MR#: [id number] Acct: [id number] Name: SANTY RAZA Cooper Rep #:[id number] : 1960 63 From: Essence Tijerina CRNA PCP: ALEXI Freedman Status:REG S DC Y Race: C Location: [place] [address] Anesthesia: Postop Eval I Current Vital Signs Temperature: 97.4 F Pulse Rate: 83 Blood Pressure: 95/67 Respiratory Rate: 16 Pulse Ox: 94 Oxygen Delivery Method: Simple Mask Oxygen Flow Rate (L/min): 6 Assessment Airway patent: Yes Spontaneous unlabored respirations: Yes Mental status: Awake nausea: No Vomiting: No Anesthesia Complication: No Fluid Hydration Crystalloid volume administer (ml): 900 Total IV fluid infused: 900 Progress Note Anesthesia document: Postop Eval 1 completed: Yes 10/04/24 1228 <Electronically signed by Essence DIAZ> Date _ Essence Tijerina COVERAGE ANALYST Cosigner Signature: Date CC: ~ Signed [facility] Work Phone: 1(805) 365-439204-21-2025 Discharge summary Author Murray Guadarrama [facility] Note Date/Time October 04, 2024 12: 14pm [facility] Medical Records Department [address] [place] [address] Instructions for Home/Discharge Instructions 10/04/24 1210 MR#: [id number] Acct: [id number] Name: SANTY RAZA Rep #:[id number] : 1960 63 From: Murray Guadarrama MD PCP: ALEXI Freedman Status:REG S DC Discharge Instructions Diet Discharge Diet: Light diet - advance as tolerated Activity Discharge Activity: Return to Normal Activity and May Shower May shower in (days): 1 Lifting Restrictions: No lifting pushing or pulling more than 20 pounds for 6 weeks Additional Activity Instructions:: Wear abdominal binder as needed for comfort Dressing / Incision Call your doctor if your incision/area has: Continuous Slow Oozing, Sudden Increased Bleeding, Increased Pain/ Swelling, Increased Redness, Foul Smelling Discharge and Swelling at the incision site Call your doctor if you observe: Fever of 101 or Higher Remove Dressing in: 2 days Cleanse incision/area with: Soap & Water Follow Up Care Please Follow Up With: Murray Guadarrama MD When: 2 weeks. Please call office to schedule appointment Test Results: Test results from this visit will be discussed in further detail at your follow- up appointment, if applicable. Discharge Plan Admission Primary Reason for Your Visit: Ventral hernia repair Attending Provider: Murray Guadarrama Primary Care Provider: Deloris Chavez NP Instructions Print Language: Azerbaijani Discharge Orders/Prescriptions Prescriptions: New oxycodone-acetaminophen [Percocet] 5-325 mg tablet 1 tab PO Q8H PRN (Reason: pain) 4 Days Qty: 10 0RF Continued venlafaxine [Effexor XR] 150 mg capsule,extended release 24hr 150 mg PO QAM benzonatate 100 mg capsule 100 mg PO BID PRN (Reason: cough) alprazolam [Xanax] 1 MG tablet 1 mg PO DAILY PRN (Reason: Anxiety) lisinopril 10 MG tablet 10 mg PO DAILY levothyroxine 100 MCG tablet 100 mcg PO DAILY tizanidine 4 MG tablet 4 mg PO QHS Patient Comments: lansoprazole 15 MG capsule,delayed release(DR/EC) 15 mg PO DAILY Patient Comments: furosemide 20 MG tablet 20 mg PO DAILY Patient Comments: albuterol sulfate 1 PUFF inhaler 1 - 2 puff inhalation Q4H PRN PRN (Reason: Sob &/Or Wheezing) bupropion HCl 150 mg Tablet Sustained-Release 12 Hr 150 mg PO DAILY ondansetron HCl 4 mg Tablet 4 mg PO Q6H PRN (Reason: Nausea) amlodipine 5 mg Tablet 5 mg PO DAILY amitriptyline 25 mg Tablet 25 mg PO QHS cholecalciferol (vitamin D3) 125 mcg (5,000 unit) Tablet 125 mcg PO DAILY oxycodone-acetaminophen [Percocet] 5-325 mg tablet 1 tab PO Q8H PRN (Reason: pain) 3 Days Qty: 10 0RF albuterol sulfate 2.5 mg /3 mL (0.083 %) solution for nebulization 2.5 mg inhalation Q6H PRN (Reason: shortness of breath or wheezing) Patient Comments: inhale 1 vial in nebulizer every 6 hours NEEDED FOR FEVER wheezing or shortness of breath Referrals / Follow Up: Deloris Chavez NP, JADEN-C [Primary Care Provider] - Disposition Disposition (needs filled in before D/C Order can be placed): Home, Self Care 10/04/24 1214<Electronically signed by Murray Guadarrama MD>Murray Guadarrama MD CC: ALEXI Chavez ~ Signed [facility] Work Phone: 1(422) 695-558704-21-2025 History and physical note Author Murray Guadarrama [facility] Note Date/Time October 04, 2024 11: 03am [facility] Medical Records Department [address] [place] [address] History & Physical Exam 10/04/24 1100 MR#: [id number] Acct: [id number] Name: SANTY RAZA Rep #:[id number] : 1960 63 From: Murray Guadarrama MD PCP: ALEXI Freedman Status:REG S DC Location: [place] [address] HPI - General General Date of Admission: 10/04/24 Date of Service: 10/04/24 Chief Complaint: Ventral hernia HPI Narrative SANTY RAZA, is a 63 F who presents today for elective ventral hernia repair with the possibility of mesh. Patient is known to me from her previous laparoscopic ventral hernia repair performed several years ago closer to the umbilicus. She recently presented to my office with what appeared to be a smallnew her hernia more in the epigastric region. CT scan was performed and showed a fat-containing hernia however the defect seemed to be relatively small at around 2 cm or so. I offered her an open hernia repair with the possibility of mesh based on the size of the defect and the quality of the fascia. She wished to proceed. She presents today for this elective repair. She has no issues or complaints [facility]LY [facility], [facility] Medical History Post-menopausal History of steroid therapy Thyroid disease Walker as ambulation aid Injury of head and neck Blackout Difficulty swallowing History of hiatal hernia Asthma History of pain when walking History of edema On home oxygen therapy Pain Loss of hearing Wears hearing aid Wears dentures Wears glasses Restless legs Gastric reflux Hoarseness Chronic cough Smoker Shortness of breath on exertion History of stress test Anxiety Depression Hypothyroid Hypertension Back pain Home Medications ?Medication ?Instructions ?Recorded ?Last Taken ?Type alprazolam 1 mg tablet (Xanax) 1 mg PO DAILY PRN Anxie ty 09/22/15 Unknown History lisinopril 10 mg tablet 10 mg PO DAILY 09/22/1508/14 History levothyroxine 100 mcg tablet 100 mcg PO DAILY 05/13/16 10/04/24 05:00 History furosemide 20 mg tablet 20 mg PO DAILY 11/29/1708/14 History lansoprazole 15 mg capsule,delayed 15 mg PO DAILY 11/1408/29/24 History release tizanidine 4 mg tablet 4 mg PO QHS 11/29/17 5 History albuterol sulfate 90 mcg/actuation 1 - 2 puff inhalati on Q4H PRN PRN 12/05/19 10/04/24 08:30 History aerosol inhaler Sob &/Or Wheezing amitriptyline 25 mg tablet 25 mg PO QHS 06/26/2108/29 History amlodipine 5 mg tablet 5 mg PO DAILY 06/26/2108/29 History bupropion HCl 150 mg tablet,12 hr 150 mg PO DAILY 06/1608/29/24 History sustained-release cholecalciferol (vitamin D3) 125 125 mcg PO DAILY 06/1608/29/24 History mcg (5,000 unit) tablet ondansetron HCl 4 mg tablet 4 mg PO Q6H PRN Nausea 05/07 Unknown History oxycodone-acetaminophen 5 mg-325 1 tab PO Q8H PRN pain 3 days #10 11/05/22 Unknown Rx mg tablet (Percocet) tabs albuterol sulfate 2.5 mg/3 mL 2.5 mg inhalation Q6H TN N 10/27/23 10/04/24 06:00 History (0.083 %) solution for nebulization shortness of breat h or wheezing benzonatate 100 mg capsule 100 mg PO BID PRN cough Unknown History venlafaxine 150 mg 150 mg PO QAM 09/01/24 Unkno wn History capsule,extended release 24 hr (Effexor XR) Allergy/AdvReac Type Severity Reaction Status Date / Time amlodipine Allergy Intermediate Other Verified 10/04/24 09:15 doxycycline Allergy Intermediate Other Verified 10/04/24 09:15 meloxicam Allergy Intermediate Other Verified 10/04/24 09:15 Fish Containing Products Allergy Itching Verified 10/04/24 09:15 peanut Allergy Itching Verified 10/04/24 09:15 levofloxacin (From Levaquin) AdvReac Other Verified 10/04/24 09:15 Surgical History H/O hernia repair History of carpal tunnel surgery H/O tubal ligation History of placement of ear tubes Hx of breast reduction, elective Social History Smoking Status: Current every day smoker tobacco type: cigarettes alcohol intake: never Vital Signs Vital Signs Vital Signs: 10/04/24 09:18 10/04/24 09:18 10/04/24 09:34 Temperature 99.2 F H 99.2 F H Temperature Source Temporal Pulse Rate 85 85 Respiratory Rate 16 16 Respiratory Pattern Normal Blood Pressure 131/80 H 131/80 H Blood Pressure Mean 97 Blood Pressure Source Monitor Blood Pressure Position Semi-Fowlers Blood Pressure Location Left Arm Pulse Ox 95 95 Oxygen Delivery Method Room Air Weight Weight: 310 lb 13.628 oz Body Mass Index (BMI) 51.7 Physical Exam Narrative She is alert and oriented x 3. She is in no acute distress. Abdomen is obese, soft and nontender. Region of hernia with some mild discomfort. Results Lab / Micro Data 09/21/24 10:21 09/21/24 10:21 Assessment & Plan Assessment/Plan (1) Hernia: PLAN: Plan The patient is a 63-year-old female with an epigastric ventral hernia. I have offered her repair with possible mesh. We discussed the details of the planned procedure and she wishes to proceed. This will begin momentarily. Antibiotics will be given. Charges/Coding Visit Charges Inpatient E&M: 16674 Init Hosp L3 10/04/24 1103 <Electronically signed by Murray Guadarrama MD> Cosigner Signature (if applicable): CC: ALEXI Chavez; Dr. Murray Guadarrama MD~ Signed [facility] Work Phone: 1(132) 453-176904-21-2025 Procedure note [facility] Medical Records Department [address] [place] [address] Operative Report 10/04/24 1234 MR#: [id number] Acct: [id number] Name: SANTY RAZA Rep #:[id number] : 1960 63 From: Murray Guadarrama MD PCP: ALEXI Freedman Status:REG S DC Location: AC07-1 Procedures Digestive 40xxx-49xxx: 48830 RPR AA HRN 1ST < 3 NCR/STRN Operative Report (Standard) Operative Information Date of Procedure: 10/04/24 Pre-Operative Diagnosis: Ventral hernia Post-Operative Diagnosis: Same Surgery/Procedure Performed: Ventral hernia repair sales contract administrator: Yes Event Representative: Светлана Sheldon Tasks completed by communications assistant: Closing and Retracting Additional assistant professor of surgery?: No Type of Anesthesia: General and Local RN Documented Start/Stop Times: Operation Date: 10/04/24 11:00 Case Time Into Pre-Op 10/04/24 09:16 Out of Pre-Op 10/04/24 11:01 Anesthesia Start 10/04/24 11:03 Into Room 10/04/24 11:03 Procedure Start 10/04/24 11:24 Procedure Start Time: 11:24 Procedure Stop Time: 12:15 Select all DRAINS/GRAFTS/IMPLANTS that apply: None Special Medications: Clindamycin 900 mg IV Estimated Blood Loss: 10 mL Specimen collected: No Description of surgery: The patient is a 63-year-old female who presents today for a ventral hernia. I performed a previousventral hernia repair with mesh several years ago. This was done laparoscopically. She presented with a new bulge in the upper abdomen. A CT scan was performed for planning purposes. I felt that thiswas most likely a new hernia above the previous hernia. I felt that the defect was probably fairly s mall based on the CAT scan images. I anticipated about 2 cm defect. I recommended open repair with possible mesh versus primary repair. Patient was brought to the operating room today following informed consent. Antibiotics were given and a timeout was performed. She was placed supine on the operative table with arms outstretched on arm boards. General anesthesia was induced. Once adequately sedated the abdomen is then prepped and draped in the usual sterile manner. A small incision was made along the midline in the upper abdomen near the area of the hernia. Bovie electrocautery was then useddissect down through subtendinous tissues after the incision was made using #15 blade. Local anesthe tic was also infiltrated prior to the incision. I was ableto dissect down to the level of the fascia and immediately encountered the fascial defect. This measured about 2.5 cm. The hernia sac was dissected off of the surrounding structures. It appeared that this fascial defect was just superior to the previous mesh as I could see the anchoring suture from the previous repair at the inferior aspect of this defect. Since this is a fairly small hernia and her fascia seem to be fairly decent quality, I elected to repair this primarily. I ideally did not want to use mesh for several reasons mostlydue to the fact that she would be a higher risk of infection if this was placed on an onlay manner.I also felt that there would be difficulty getting purchase of the second mesh if this was placed on top of the previous mesh. Given all of her comorbidities I felt that a primary repair might be thebest option. The primary repair was performed using #1 Ethibond performed in a multiple [id number] manner. A total of 5 [id number]'s were placed. This closed the fascial defect nicely. The wound was copiously irrigated. Hemostasis was excellent. The wound was closed using 3-0 Vicryl in a subcutaneous as well as a subdermal manner. 4-0 Vicryl was run in the skin. Skin glue was applied asdressing. Abdominal binder was also placed. She was awakened by anesthesia [facility]RAN was utilized as a assistant track and field coach. His role included assistance with retraction and closure of the wound Surgical Findings: 2.5 cm fascial defect just above previous mesh Complications Complications: No Admit VTE Documentation VTE Present on Admission: No VTE Mechan Device Prophylaxis: SCD's VTE Pharm Prophylaxis ordered?: No Reason prophylaxis not ordered: Treatment Not Indicated 10/04/24 1205 Cosigner Signature (if applicable): CC: ALEXI Chavez; Dr. Murray Guadarrama MD~ Signed [facility]04-21-2025 Consult note [facility] Medical Records Department [address] [place] [address] Anesthesia Postop Eval I 10/04/24 1227 MR#: [id number] Acct: [id number] Name: SANTY RAZA Rep #:[id number] : 1960 63 From: Essence Tijerina CRNA PCP: JULIA FreedmanC Status:REG S DC Y Race: C Location: [place] [address] Anesthesia: Postop Eval I Current Vital Signs Temperature: 97.4 F Pulse Rate: 83 Blood Pressure: 95/67 Respiratory Rate: 16 Pulse Ox: 94 Oxygen Delivery Method: Simple Mask Oxygen Flow Rate (L/min): 6 Assessment Airway patent: Yes Spontaneous unlabored respirations: Yes Mental status: Awake nausea: No Vomiting: No Anesthesia Complication: No Fluid Hydration Crystalloid volume administer (ml): 900 Total IV fluid infused: 900 Progress Note Anesthesia document: Postop Eval 1 completed: Yes 10/04/24 1228 NA> Date _ Essence Tijerina CRNA Cosigner Signature: Date CC: ~ Signed [facility]04-21-2025 Discharge summary [facility] Medical Records Department [address] [place] [address] Instructions for Home/Discharge Instructions 10/04/24 1210 MR#: [id number] Acct: [id number] Name: SANTY RAZA Rep #:[id number] : 1960 63 From: Murray Guadarrama MD PCP: ALEXI Freedman Status:REG S DC Discharge Instructions Diet Discharge Diet: Light diet - advance as tolerated Activity Discharge Activity: Return to Normal Activity and May Shower May shower in (days): 1 Lifting Restrictions: No lifting pushing or pulling more than 20 pounds for 6 weeks Additional Activity Instructions:: Wear abdominal binder as needed for comfort Dressing / Incision Call your doctor if your incision/area has: Continuous Slow Oozing, Sudden Increased Bleeding, Increased Pain/ Swelling, Increased Redness, Foul Smelling Discharge and Swelling at the incision site Call your doctor if you observe: Fever of 101 or Higher Remove Dressing in: 2 days Cleanse incision/area with: Soap & Water Follow Up Care Please Follow Up With: Murray Guadarrama MD When: 2 weeks. Please call office to schedule appointment Test Results: Test results from this visit will be discussed in further detail at your follow- up appointment, if applicable. Discharge Plan Admission Primary Reason for Your Visit: Ventral hernia repair Attending Provider: Murray Guadarrama Primary Care Provider: Deloris Chavez NP Instructions Print Language: Azerbaijani Discharge Orders/Prescriptions Prescriptions: New oxycodone-acetaminophen [Percocet] 5-325 mg tablet 1 tab PO Q8H PRN (Reason: pain) 4 Days Qty: 10 0RF Continued venlafaxine [Effexor XR] 150 mg capsule,extended release 24hr 150 mg PO QAM benzonatate 100 mg capsule 100 mg PO BID PRN (Reason: cough) alprazolam [Xanax] 1 MG tablet 1 mg PO DAILY PRN (Reason: Anxiety) lisinopril 10 MG tablet 10 mg PO DAILY levothyroxine 100 MCG tablet 100 mcg PO DAILY tizanidine 4 MG tablet 4 mg PO QHS Patient Comments: lansoprazole 15 MG capsule,delayed release(DR/EC) 15 mg PO DAILY Patient Comments: furosemide 20 MG tablet 20 mg PO DAILY Patient Comments: albuterol sulfate 1 PUFF inhaler 1 - 2 puff inhalation Q4H PRN PRN (Reason: Sob &/Or Wheezing) bupropion HCl 150 mg Tablet Sustained-Release 12 Hr 150 mg PO DAILY ondansetron HCl 4 mg Tablet 4 mg PO Q6H PRN (Reason: Nausea) amlodipine 5 mg Tablet 5 mg PO DAILY amitriptyline 25 mg Tablet 25 mg PO QHS cholecalciferol (vitamin D3) 125 mcg (5,000 unit) Tablet 125 mcg PO DAILY oxycodone-acetaminophen [Percocet] 5-325 mg tablet 1 tab PO Q8H PRN (Reason: pain) 3 Days Qty: 10 0RF albuterol sulfate 2.5 mg /3 mL (0.083 %) solution for nebulization 2.5 mg inhalation Q6H PRN (Reason: shortness of breath or wheezing) Patient Comments: inhale 1 vial in nebulizer every 6 hours NEEDED FOR FEVER wheezing or shortness of breath Referrals / Follow Up: Deloris Chavez NP, YOUTH CORRECTIONS OFFICER-C [Primary Care Provider] - Disposition Disposition (needs filled in before D/C Order can be placed): Home, Self Care 10/04/24 1214Murray Guadarrama MD CC: YOUTH CORRECTIONS OFFICER-C Deloris Chavez ~ Signed [facility]04-21-2025 Consult note Author Florinda Martinez [facility] Note Date/Time October 04, 2024 9:3 4am [facility] Medical Records Department [address] [place] [address] Pre-Anesthesia Evaluation 10/04/24 0933 MR#: [id number] Acct: [id number] Name: SANTY RAZA Rep #:[id number] : 1960 63 From: Florinda Martinez MD PCP: ALEXI Freedman Status:REG S DC Y Race: C Location: [place] [address] ASA Classification* ASA Classification ASA Classification: 3 Assessment & Plan Anesthesia* Anesthesia Assessment Anesthesia Assessment: Discussed sedation and/or anesthesia options, risks, benefits, and alternatives with patient/parents/legal guardian/POA. Questions invited. The patient/parents/legal guardian/POA seems to understand and agrees to proceedwith anesthesia plan. Reviewed the physical assessment, medical history, allergy history and patient home medications list prior to surgery/procedure/anesthetic and documented any changes. Performed airway and anesthesia risk assessments. Anesthesia Type Anesthesia Type: General Anesthesia Focused Assessment* Temperature: 99.2 F Pulse Rate: 85 Blood Pressure: 131/80 Respiratory Rate: 16 Pulse Ox: 95 Airway Assessment Mouth opens: >3 cm Mallampati Score: II Focused Labs Anesthesia Preop lab: CBC WBC 10.0 K/mm3 (4.4-11.0) 09/21/24 10:09/21/24 RBC 4.92 M/mm3 (4.2-5.4) 09/21/24 10:09/21/24 Hgb 15.4 g/dL (12.0-15.0) H 09/21/24 10: 5 Hct 44.6 % (37-47) 09/21/24 10:21 09/21/24 Plt Count 247 K/mm3 (150-450) 09/21/24 10:21 09/21/24 CHEMISTRY Potassium 4.3 mmol/L (3.3-5.1) 09/21/24 10:21 09/21/24 Sodium 138 mmol/L (133-145) 09/21/24 10:21 09/21/24 BUN 14 mg/dL (4-19) 09/21/24 10:21 09/21/24 Creatinine 0.78 mg/dL (0.70-1.20) 09/21/24 10:21 09/21/24 Glucose 121 mg/dL (70-99) H 09/21/24 10:09/21/24 TSH 1.440 uIU/mL (0.300-4.200) 09/21/24 10:02/07 COAG Pre-Assessment Diagnosis/Proposed Procedure Planned Operative Procedure(s): OPEN VENTRAL HERNIA REPAIR WITH POSS MESH Anesthesia History 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 When Was Last Pacemaker Check QUESTION #4 FULL TEXT: You/Your Family Experience fever (hyperthermia) with Anesthesia Last Oral Intake Last Oral intake: Last Oral Intake NPO since 05:00 10/04/24 09:18 Meds taken in AM with sips of Yes 10/04/24 09:18 water? Meds patient instructed to take am of surgery PONV PONV - plant breeder scientist: PONV - plant breeder scientist Female Yes 09/20/24 13:51 HX of Motion Sickness No 09/20/24 13:51 HX of N/V After Surgery No 09/20/24 13:51 Non-Smoker No 09/20/24 13:51 Duration of Surgery greater Yes 09/20/24 13:51 than 60 minutes Number of Risk Factors 2 09/20/24 13:51 PONV Score Moderate Risk 09/20/24 13:51 Height & Weight Height & Weight: Anesthesia: Height & Weight Height 5 ft 5 in 10/04/24 09:18 Weight: 141 kg 10/04/24 09:18 Body Mass Index (BMI) 51.7 10/04/24 09:18 Respiratory Assessment Respiratory Assessment - plant breeder scientist: Respiratory Tract Infection Hx - plant breeder scientist Hx Respiratory Tract Infection No 09/20/24 13:51 STOP Sleep Apnea STOP Sleep Apnea - plant breeder scientist: STOP Sleep Apnea - plant breeder scientist Hx Hypertension Yes: CONTROLLED WITH MEDS 09/20/24 13:51 Hx Sleep Apnea No 09/20/24 13:51 CPAP Yes: DOES NOT USE 10/27/23 13:20 BIPAP No 10/27/23 13:20 Do you snore loudly (louder No 09/20/24 13:51 than talking or can be heard Do you often feel tired/ Yes 09/20/24 13:51 fatigued/ sleepy during daytime? Has anyone observed you stop No 09/20/24 13:51 breathing during sleep? STOP Results Positive 09/20/24 13:51 QUESTION #5 FULL TEXT : Do you snore loudly (louder than talking or can be heard through closed doors)? Tobacco Use History Tobacco Use History - plant breeder scientist: Tobacco Use History - plant breeder scientist Tobacco Use Smoking Status Current every day smoker 09/20/24 13:51 Hx Tobacco Use Yes 09/20/24 13:51 Years Smoking Packs Smoked per Day Smoking Cessation Date was within the last 15 years Hx Smoking Cessation Date Hx Smoking Cessation Counseling Hematologic Medial History Hematologic Hx - plant breeder scientist: Hematologic Medical Hx - plastics worker Hx of Blood Transfusion No 09/20/24 13:51 Hx of Transfusion in last 3 No 09/20/24 13:51 Months Date of Last Transfusion (if within last 3 months) Ever experience any problems No 09/20/24 13:51 with transfusion(s)? Specify any problems Hx of Preganancy in last 3 No 09/20/24 13:51 Months Nurse Filling Out Transfusion DSCHRIBER 09/20/24 13:51 & Questions: Date: 09/20/24 09/20/24 13:51 Time: 13:52 09/20/24 13:51 Patient unable to answer at this time (ie. confused, unrespo /Reproduction History /Reproductive History - plant breeder scientist: /Reproductive Hx- plant breeder scientist Hx Now No 09/20/24 13:51 Gestational Age (in weeks): EDC: Hx Hx Para Hx Section SAB No 09/20/24 13:51 Active Medications Active Medications: Current Medications Generic Name Dose Route Start Last Admin Trade Name Freq PRN Reason Stop Dose Admin Clindamycin Phosphate 900 mg in 50 mls @ 75 mls/hr 10/04/24 11:00 Cleocin IV 10/04/24 11:39 INTRAOP ONE PFS Medical History Post-menopausal History of steroid therapy Thyroid disease Walker as ambulation aid Injury of head and neck Blackout Difficulty swallowing History of hiatal hernia Asthma History of pain when walking History of edema On home oxygen therapy Pain Loss of hearing Wears hearing aid Wears dentures Wears glasses Restless legs Gastric reflux Hoarseness Chronic cough Smoker Shortness of breath on exertion History of stress test Anxiety Depression Hypothyroid Hypertension Back pain Home Medications ?Medication ?Instructions ?Recorded ?Last Taken ?Type alprazolam 1 mg tablet (Xanax) 1 mg PO DAILY PRN Anxie ty 09/22/15 Unknown History lisinopril 10 mg tablet 10 mg PO DAILY 09/22/1508/14 History levothyroxine 100 mcg tablet 100 mcg PO DAILY 05/13/16 10/04/24 05:00 History furosemide 20 mg tablet 20 mg PO DAILY 11/29/1708/14 History lansoprazole 15 mg capsule,delayed 15 mg PO DAILY 11/1408/29/24 History release tizanidine 4 mg tablet 4 mg PO QHS 11/29/17 5 History albuterol sulfate 90 mcg/actuation 1 - 2 puff inhalati on Q4H PRN PRN 12/05/19 10/04/24 08:30 History aerosol inhaler Sob &/Or Wheezing amitriptyline 25 mg tablet 25 mg PO QHS 06/26/2108/29 History amlodipine 5 mg tablet 5 mg PO DAILY 06/26/2108/29 History bupropion HCl 150 mg tablet,12 hr 150 mg PO DAILY 06/1608/29/24 History sustained-release cholecalciferol (vitamin D3) 125 125 mcg PO DAILY 06/1608/29/24 History mcg (5,000 unit) tablet ondansetron HCl 4 mg tablet 4 mg PO Q6H PRN Nausea 05/07 Unknown History oxycodone-acetaminophen 5 mg-325 1 tab PO Q8H PRN pain 3 days #10 11/05/22 Unknown Rx mg tablet (Percocet) tabs albuterol sulfate 2.5 mg/3 mL 2.5 mg inhalation Q6H TN N 10/27/23 10/04/24 06:00 History (0.083 %) solution for nebulization shortness of breat h or wheezing benzonatate 100 mg capsule 100 mg PO BID PRN cough Unknown History venlafaxine 150 mg 150 mg PO QAM 09/01/24 Unkno wn History capsule,extended release 24 hr (Effexor XR) Allergy/AdvReac Type Severity Reaction Status Date / Time amlodipine Allergy Intermediate Other Verified 10/04/24 09:15 doxycycline Allergy Intermediate Other Verified 10/04/24 09:15 meloxicam Allergy Intermediate Other Verified 10/04/24 09:15 Fish Containing Products Allergy Itching Verified 10/04/24 09:15 peanut Allergy Itching Verified 10/04/24 09:15 levofloxacin (From Levaquin) AdvReac Other Verified 10/04/24 09:15 Surgical History H/O hernia repair History of carpal tunnel surgery H/O tubal ligation History of placement of ear tubes Hx of breast reduction, elective Social History Smoking Status: Current every day smoker tobacco type: cigarettes alcohol intake: never Review of Systems (Anesthesia) ROS Narrative System reviewed and no additional complaints, except as documented. 10/04/2434 <Electronically signed by Florinda Martinez MD > Date _ Florinda Bloomignmartin Signature: Date CC: ~ Signed [facility] Work Phone: 1(943) 587-637004-21-2025 History and physical note [facility] Medical Records Department [address] [place] [address] History & Physical Exam 10/04/24 1100 MR#: [id number] Acct: [id number] Name: SANTY RAZA Rep #:[id number] : 1960 63 From: Murray Guadarrama MD PCP: ALEXI Freedman Status:REG S DC Location: [place] [address] HPI - General General Date of Admission: 10/04/24 Date of Service: 10/04/24 Chief Complaint: Ventral hernia HPI Narrative SANTY RAZA, is a 63 F who presents today for elective ventral hernia repair with the possibility of mesh. Patient is known to me from her previous laparoscopic ventral hernia repair performed several years ago closer to the umbilicus. She recently presented to my office with what appeared to hi smallnew her hernia more in the epigastric region. CT scan was performed and showed a fat-containing hernia however the defect seemed to be relatively small at around 2 cm or so. I offered her an open hernia repair with the possibility of mesh based on the size of the defect and the quality of the fascia. She wished to proceed. She presents today for this elective repair. She has no issues or complaints [facility]LY [facility], [facility] Medical History Post-menopausal History of steroid therapy Thyroid disease Walker as ambulation aid Injury of head and neck Blackout Difficulty swallowing History of hiatal hernia Asthma History of pain when walking History of edema On home oxygen therapy Pain Loss of hearing Wears hearing aid Wears dentures Wears glasses Restless legs Gastric reflux Hoarseness Chronic cough Smoker Shortness of breath on exertion History of stress test Anxiety Depression Hypothyroid Hypertension Back pain Home Medications ?Medication ?Instructions ?Recorded ?Last Taken ?Type alprazolam 1 mg tablet (Xanax) 1 mg PO DAILY PRN Anxie ty 09/22/15 Unknown History lisinopril 10 mg tablet 10 mg PO DAILY 09/22/1508/14 History levothyroxine 100 mcg tablet 100 mcg PO DAILY 05/13/16 10/04/24 05:00 History furosemide 20 mg tablet 20 mg PO DAILY 11/29/1708/14 History lansoprazole 15 mg capsule,delayed 15 mg PO DAILY 11/1408/29/24 History release tizanidine 4 mg tablet 4 mg PO QHS 11/29/17 5 History albuterol sulfate 90 mcg/actuation 1 - 2 puff inhalati on Q4H PRN PRN 12/05/19 10/04/24 08:30 History aerosol inhaler Sob &/Or Wheezing amitriptyline 25 mg tablet 25 mg PO QHS 06/26/2108/29 History amlodipine 5 mg tablet 5 mg PO DAILY 06/26/2108/29 History bupropion HCl 150 mg tablet,12 hr 150 mg PO DAILY 06/1608/29/24 History sustained-release cholecalciferol (vitamin D3) 125 125 mcg PO DAILY 06/1608/29/24 History mcg (5,000 unit) tablet ondansetron HCl 4 mg tablet 4 mg PO Q6H PRN Nausea 05/07 Unknown History oxycodone-acetaminophen 5 mg-325 1 tab PO Q8H PRN pain 3 days #10 11/05/22 Unknown Rx mg tablet (Percocet) tabs albuterol sulfate 2.5 mg/3 mL 2.5 mg inhalation Q6H TN N 10/27/23 10/04/24 06:00 History (0.083 %) solution for nebulization shortness of breat h or wheezing benzonatate 100 mg capsule 100 mg PO BID PRN cough Unknown History venlafaxine 150 mg 150 mg PO QAM 09/01/24 Unkno wn History capsule,extended release 24 hr (Effexor XR) Allergy/AdvReac Type Severity Reaction Status Date / Time amlodipine Allergy Intermediate Other Verified 10/04/24 09:15 doxycycline Allergy Intermediate Other Verified 10/04/24 09:15 meloxicam Allergy Intermediate Other Verified 10/04/24 09:15 Fish Containing Products Allergy Itching Verified 10/04/24 09:15 peanut Allergy Itching Verified 10/04/24 09:15 levofloxacin (From Levaquin) AdvReac Other Verified 10/04/24 09:15 Surgical History H/O hernia repair History of carpal tunnel surgery H/O tubal ligation History of placement of ear tubes Hx of breast reduction, elective Social History Smoking Status: Current every day smoker tobacco type: cigarettes alcohol intake: never Vital Signs Vital Signs Vital Signs: 10/04/24 09:18 10/04/24 09:18 10/04/24 09:34 Temperature 99.2 F H 99.2 F H Temperature Source Temporal Pulse Rate 85 85 Respiratory Rate 16 16 Respiratory Pattern Normal Blood Pressure 131/80 H 131/80 H Blood Pressure Mean 97 Blood Pressure Source Monitor Blood Pressure Position Semi-Fowlers Blood Pressure Location Left Arm Pulse Ox 95 95 Oxygen Delivery Method Room Air Weight Weight: 310 lb 13.628 oz Body Mass Index (BMI) 51.7 Physical Exam Narrative She is alert and oriented x 3. She is in no acute distress. Abdomen is obese, soft and nontender. Region of hernia with some mild discomfort. Results Lab / Micro Data 09/21/24 10:21 09/21/24 10:21 Assessment & Plan Assessment/Plan (1) Hernia: PLAN: Plan The patient is a 63-year-old female with an epigastric ventral hernia. I have offered her repair with possible mesh. We discussed the details of the planned procedure and she wishes to proceed. This will begin momentarily. Antibiotics will be given. Charges/Coding Visit Charges Inpatient E&M: 56553 Init Hosp L3 10/04/24 1103 Cosigner Signature (if applicable): CC: ALEXI Chavez; Dr. Murray Guadarrama MD~ Signed [facility]04-21-2025 [facility] Medical Records Department [address] [place] [address] History Physical Exam 10/04/24 1100 MR#: [id number] Acct: [id number] Name: SANTY RAZA Rep #: [id number] : 1960 63 From: Murray Guadarrama MD PCP: ALEXI Freedman [place] [facility] [place] [address] HPI - General General Date of Admission: 10/04/24 Date of Service: 10/04/24 Chief Complaint: Ventral hernia HPI Narrative SANTY RAZA, is a 63 F who presents today for elective ventral hernia repair with the possibility of mesh. Patient is known to me from her previous laparoscopic ventral hernia repair performed several years ago closer to the umbilicus. She recently presented to my office with what appeared to be a small new her hernia more in the epigastric region. CT scan was performed and showed a fat- containing hernia however the defect seemed to be relatively small at around 2 cm or so. I offered her an open hernia repair with the possibility of mesh based on the size of the defect and the quality of the fascia. She wished to proceed. She presents today for this elective repair. She has no issues or complaints [facility] Medical History Post-menopausal History of steroid therapy Thyroid disease Walker as ambulation aid Injury of head and neck Blackout Difficulty swallowing History of hiatal hernia Asthma History of pain when walking History of edema On home oxygen therapy Pain Loss of hearing Wears hearing aid Wears dentures Wears glasses Restless legs Gastric reflux Hoarseness Chronic cough Smoker Shortness of breath on exertion History of stress test Anxiety Depression Hypothyroid Hypertension Back pain Home Medications ???Medication ???Instructions ???Recorded ???Last Taken ???Type alprazolam 1 mg tablet (Xanax) 1 mg PO DAILY PRN Anxiety 09/22/15 Unknown History lisinopril 10 mg tablet 10 mg PO DAILY 09/22/15 08/29/24 H istory levothyroxine 100 mcg tablet 100 mcg PO DAILY 05/13/16 10/04/24 05:00 History furosemide 20 mg tablet 20 mg PO DAILY 11/29/17 08/29/24 H istory lansoprazole 15 mg capsule,delayed 15 mg PO DAILY 11/29/17 08/29/24 History release tizanidine 4 mg tablet 4 mg PO QHS 11/29/17 08/29/24 Hist ory albuterol sulfate 90 mcg/actuation 1 - 2 puff inhalation Q4H PRN TN N 12/05/19 10/04/24 08:30 History aerosol inhaler Sob /Or Wheezing amitriptyline 25 mg tablet 25 mg PO QHS 06/26/21 08/29/24 His tory amlodipine 5 mg tablet 5 mg PO DAILY 06/26/21 08/29/24 Hi story bupropion HCl 150 mg tablet,12 hr 150 mg PO DAILY 06/26/21 08/29/24 History sustained-release cholecalciferol (vitamin D3) 125 125 mcg PO DAILY 06/26/21 08/29/24 History mcg (5,000 unit) tablet ondansetron HCl 4 mg tablet 4 mg PO Q6H PRN Nausea 06/26/21 Un known History oxycodone-acetaminophen 5 mg-325 1 tab PO Q8H PRN pain 3 days #10 0 11/05/22 Unknown Rx mg tablet (Percocet) tabs albuterol sulfate 2.5 mg/3 mL 2.5 mg inhalation Q6H PRN 10/27/23 10/04/24 06:00 History (0.083 %) solution for nebulization shortness of breath or wheezing benzonatate 100 mg capsule 100 mg PO BID PRN cough 09/01/24 U nknown History venlafaxine 150 mg 150 mg PO QAM 09/01/24 Unknown His tory capsule,extended release 24 hr (Effexor XR) Allergy/AdvReac Type Severity Reaction Status Date / Time amlodipine Allergy Intermediate Other Verified 10/04/24 09:15 doxycycline Allergy Intermediate Other Verified 10/04/24 09:15 meloxicam Allergy Intermediate Other Verified 10/04/24 09:15 Fish Containing Products Allergy Itching Verified 10/04/24 09:15 peanut Allergy Itching Verified 10/04/24 09:15 levofloxacin (From Levaquin) AdvReac Other Verified 10/04/24 09:15 Surgical History H/O hernia repair History of carpal tunnel surgery H/O tubal ligation History of placement of ear tubes Hx of breast reduction, elective Social History Smoking Status: Current every day smoker tobacco type: cigarettes alcohol intake: never Vital Signs Vital Signs Vital Signs: 10/04/24 09:18 10/04/24 09:18 10/04/24 09:34 Temperature 99.2 F H 99.2 F H Temperature Source Temporal Pulse Rate 85 85 Respiratory Rate 16 16 Respiratory Pattern Normal Blood Pressure 131/80 H 131/80 H Blood Pressure Mean 97 Blood Pressure Source Monitor Blood Pressure Position Semi-Fowlers Blood Pressure Location Left Arm Pulse Ox 95 95 Oxygen Delivery Method Room Air Weight Weight: 310 lb 13.628 oz Body Mass Index (BMI) 51.7 Physical Exam Narrative She is alert and oriented x 3. She is in no acute distress. (more content not included)...[facility]04-21-2025 Evaluation note* Diagnosis Onset Date Resolution Status Admit Date Hernia resolved October 04 8:58am S/P repair of ventral hernia acute October 18, 2024 9:36am [facility] Work Phone: 1(902) 294-995404-21-2025 Consult note [facility] Medical Records Department [address] [place] [address] Pre-Anesthesia Evaluation 10/04/24 0933 MR#: [id number] Acct: [id number] Name: SANTY RAZA Rep #:[id number] : 1960 63 From: Florinda Martinez MD PCP: ALEXI Freedman Status:REG S DC Y Race: C Location: [place] [address] ASA Classification* ASA Classification ASA Classification: 3 Assessment & Plan Anesthesia* Anesthesia Assessment Anesthesia Assessment: Discussed sedation and/or anesthesia options, risks, benefits, and alternatives with patient/parents/legal guardian/POA. Questions invited. The patient/parents/legal guardian/POA seems to understand and agrees to proceedwith anesthesia plan. Reviewed the physical assessment, medical history, allergy history and patient home medications list prior to surgery/procedure/anesthetic and documented any changes. Performed airway and anesthesia risk assessments. Anesthesia Type Anesthesia Type: General Anesthesia Focused Assessment* Temperature: 99.2 F Pulse Rate: 85 Blood Pressure: 131/80 Respiratory Rate: 16 Pulse Ox: 95 Airway Assessment Mouth opens: >3 cm Mallampati Score: II Focused Labs Anesthesia Preop lab: CBC WBC 10.0 K/mm3 (4.4-11.0) 09/21/24 10:09/21/24 RBC 4.92 M/mm3 (4.2-5.4) 09/21/24 10:21 09/21/24 Hgb 15.4 g/dL (12.0-15.0) H 09/21/24 10: 5 Hct 44.6 % (37-47) 09/21/24 10:09/21/24 Plt Count 247 K/mm3 (150-450) 09/21/24 10:09/21/24 CHEMISTRY Potassium 4.3 mmol/L (3.3-5.1) 09/21/24 10:21 09/21/24 Sodium 138 mmol/L (133-145) 09/21/24 10:09/21/24 BUN 14 mg/dL (4-19) 09/21/24 10:09/21/24 Creatinine 0.78 mg/dL (0.70-1.20) 09/21/24 10:09/21/24 Glucose 121 mg/dL (70-99) H 09/21/24 10:09/21/24 TSH 1.440 uIU/mL (0.300-4.200) 09/21/24 10:02/07 COAG Pre-Assessment Diagnosis/Proposed Procedure Planned Operative Procedure(s): OPEN VENTRAL HERNIA REPAIR WITH POSS MESH Anesthesia History 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 When Was Last Pacemaker Check QUESTION #4 FULL TEXT: You/Your Family Experience fever (hyperthermia) with Anesthesia Last Oral Intake Last Oral intake: Last Oral Intake NPO since 05:00 10/04/24 09:18 Meds taken in AM with sips of Yes 10/04/24 09:18 water? Meds patient instructed to take am of surgery PONV PONV - plant breeder scientist: PONV - plant breeder scientist Female Yes 09/20/24 13:51 HX of Motion Sickness No 09/20/24 13:51 HX of N/V After Surgery No 09/20/24 13:51 Non-Smoker No 09/20/24 13:51 Duration of Surgery greater Yes 09/20/24 13:51 than 60 minutes Number of Risk Factors 2 09/20/24 13:51 PONV Score Moderate Risk 09/20/24 13:51 Height & Weight Height & Weight: Anesthesia: Height & Weight Height 5 ft 5 in 10/04/24 09:18 Weight: 141 kg 10/04/24 09:18 Body Mass Index (BMI) 51.7 10/04/24 09:18 Respiratory Assessment Respiratory Assessment - plant breeder scientist: Respiratory Tract Infection Hx - plant breeder scientist Hx Respiratory Tract Infection No 09/20/24 13:51 STOP Sleep Apnea STOP Sleep Apnea - plant breeder scientist: STOP Sleep Apnea - plant breeder scientist Hx Hypertension Yes: CONTROLLED WITH MEDS 09/20/24 13:51 Hx Sleep Apnea No 09/20/24 13:51 CPAP Yes: DOES NOT USE 10/27/23 13:20 BIPAP No 10/27/23 13:20 Do you snore loudly (louder No 09/20/24 13:51 than talking or can be heard Do you often feel tired/ Yes 09/20/24 13:51 fatigued/ sleepy during daytime? Has anyone observed you stop No 09/20/24 13:51 breathing during sleep? STOP Results Positive 09/20/24 13:51 QUESTION #5 FULL TEXT : Do you snore loudly (louder than talking or can be heard through closeddoors)? Tobacco Use History Tobacco Use History - plant breeder scientist: Tobacco Use History - plant breeder scientist Tobacco Use Smoking Status Current every day smoker 09/20/24 13:51 Hx Tobacco Use Yes 09/20/24 13:51 Years Smoking Packs Smoked per Day Smoking Cessation Date was within the last 15 years Hx Smoking Cessation Date Hx Smoking Cessation Counseling Hematologic Medial History Hematologic Hx - plant breeder scientist: Hematologic Medical Hx - plastics worker Hx of Blood Transfusion No 09/20/24 13:51 Hx of Transfusion in last 3 No 09/20/24 13:51 Months Date of Last Transfusion (if within last 3 months) Ever experience any problems No 09/20/24 13:51 with transfusion(s)? Specify any problems Hx of Preganancy in last 3 No 09/20/24 13:51 Months Nurse Filling Out Transfusion DSCHRIBER 09/20/24 13:51 & Questions: Date: 09/20/24 09/20/24 13:51 Time: 13:52 09/20/24 13:51 Patient unable to answer at this time (ie. confused, unrespo /Reproduction History /Reproductive History - plant breeder scientist: /Reproductive Hx- plant breeder scientist Hx Now No 09/20/24 13:51 Gestational Age (in weeks): EDC: Hx Hx Para Hx Section SAB No 09/20/24 13:51 Active Medications Active Medications: Current Medications Generic Name Dose Route Start Last Admin Trade Name Freq PRN Reason Stop Dose Admin Clindamycin Phosphate 900 mg in 50 mls @ 75 mls/hr 10/04/24 11:00 Cleocin IV 10/04/24 11:39 INTRAOP ONE [facility] Medical History Post-menopausal History of steroid therapy Thyroid disease Walker as ambulation aid Injury of head and neck Blackout Difficulty swallowing History of hiatal hernia Asthma History of pain when walking History of edema On home oxygen therapy Pain Loss of hearing Wears hearing aid Wears dentures Wears glasses Restless legs Gastric reflux Hoarseness Chronic cough Smoker Shortness of breath on exertion History of stress test Anxiety Depression Hypothyroid Hypertension Back pain Home Medications ?Medication ?Instructions ?Recorded ?Last Taken ?Type alprazolam 1 mg tablet (Xanax) 1 mg PO DAILY PRN Anxie ty 09/22/15 Unknown History lisinopril 10 mg tablet 10 mg PO DAILY 09/22/1508/14 History levothyroxine 100 mcg tablet 100 mcg PO DAILY 05/13/16 10/04/24 05:00 History furosemide 20 mg tablet 20 mg PO DAILY 11/29/1708/14 History lansoprazole 15 mg capsule,delayed 15 mg PO DAILY 11/1408/29/24 History release tizanidine 4 mg tablet 4 mg PO QHS 11/29/17 5 History albuterol sulfate 90 mcg/actuation 1 - 2 puff inhalati on Q4H PRN PRN 12/05/19 10/04/24 08:30 History aerosol inhaler Sob &/Or Wheezing amitriptyline 25 mg tablet 25 mg PO QHS 06/26/2108/29 History amlodipine 5 mg tablet 5 mg PO DAILY 06/26/2108/29 History bupropion HCl 150 mg tablet,12 hr 150 mg PO DAILY 06/1608/29/24 History sustained-release cholecalciferol (vitamin D3) 125 125 mcg PO DAILY 06/1608/29/24 History mcg (5,000 unit) tablet ondansetron HCl 4 mg tablet 4 mg PO Q6H PRN Nausea 05/07 Unknown History oxycodone-acetaminophen 5 mg-325 1 tab PO Q8H PRN pain 3 days #10 11/05/22 Unknown Rx mg tablet (Percocet) tabs albuterol sulfate 2.5 mg/3 mL 2.5 mg inhalation Q6H TN N 10/27/23 10/04/24 06:00 History (0.083 %) solution for nebulization shortness of breat h or wheezing benzonatate 100 mg capsule 100 mg PO BID PRN cough Unknown History venlafaxine 150 mg 150 mg PO QAM 09/01/24 Unkno wn History capsule,extended release 24 hr (Effexor XR) Allergy/AdvReac Type Severity Reaction Status Date / Time amlodipine Allergy Intermediate Other Verified 10/04/24 09:15 doxycycline Allergy Intermediate Other Verified 10/04/24 09:15 meloxicam Allergy Intermediate Other Verified 10/04/24 09:15 Fish Containing Products Allergy Itching Verified 10/04/24 09:15 peanut Allergy Itching Verified 10/04/24 09:15 levofloxacin (From Levaquin) AdvReac Other Verified 10/04/24 09:15 Surgical History H/O hernia repair History of carpal tunnel surgery H/O tubal ligation History of placement of ear tubes Hx of breast reduction, elective Social History Smoking Status: Current every day smoker tobacco type: cigarettes alcohol intake: never Review of Systems (Anesthesia) ROS Narrative System reviewed and no additional complaints, except as documented. 10/04/24 0934 > Date _ Florinda Martinez MD Cosigner Signature: Date CC: ~ Signed [facility]04-01-2025 Instructions* Patient Instructions* Deloris Chavez APRN.CNP - 09/14/2024 8:07 AM EDT - Take Mucinex as needed to help clear mucus and keep secretions thin. - Monitor your symptoms, especially coughing and any signs of a sinus infection. If symptoms worsen, please contact us. - Continue using your inhalers and nebulizer as prescribed. - COVID-19 vaccine will be administered today. [facility] NoteHNO ID: [id number] Author: DELORIS CHAVEZ APRN.KHURRAM Service: ? Author Type: Nurse Practitioner Type: Progress Notes Filed: 09/14/2024 12:04 Note Text: This is a 63 year old female who presents today with: Santy is a 63-year-old female to discuss labs. HISTORY OF PRESENT ILLNESS: Headaches and Nausea: Didn't feel well yesterday. Decided to come in and get repeat CBC. Improvement today. Cough: - Reports remote episode of coughing leading to syncope. - Describes a sensation of something stuck in the throat, triggering persistent coughing. - Cough occasionally produces a liquid-like substance, not phlegm. Notes some tenderness in her face and questions if she may be developing a sinus infection - Denies increased chest pain or dyspnea beyond baseline. Asthma: - Continues to use inhalers and nebulizer. Leukocytosis. Likely from recent pneumonia and steroid use. Improving. PAST MEDICAL HISTORY: PAST MEDICAL HISTORY Diagnosis Date Allergic rhinitis, cause unspecified BMI 45.0-49.9, adult ([facility]) 08/27/2022 Essential hypertension, benign Hypothyroidism 09/26/2015 Mixed conductive and sensorineural hearing loss TRINI on CPAP Other anxiety states Perforated tympanic membrane 03/29/2011 S/P repair of ventral hernia 09/06/2022 Synovitis and tenosynovitis, unspecified Tobacco abuse 03/23/2012 PAST SURGICAL HISTORY Procedure Laterality Date COLONOSCOPY SCRN NOT HIGH RISK 09/13/2020 EGD 10/25/2020 L'SCOPE DX W/WO BRUSHINGS/WASHINGS 09/05/2022 Dr. Guadarrama LIG/TRNSXJ FLP TUBE ABDL/VAG APPR UNI/BI Tubal ligation LX REPAIR RECURRENT VENTRAL HERNIA 09/05/2022 open, w/ mesh. Dr. Guadarrama MYRINGOTOMY ASPIRAND/EUSTACHIAN TUBE NFLTJ ANES Myringotomy/tubes NEUROPLASTY AND/TRANSPOS MEDIAN NRV CARPAL TUNNE Bilateral 01/15/2019 Bilateral carpal tunnel release REDUCTION OF LARGE BREAST 04/23/2016 STEREOTACT BREAST BX EA LESION PC 09/30/2018 left stereotactic breast biopsy w/vacuum assisted core needle biopsy, specimen radiograph and marker placement ALLERGIES Doxycycline Monohydrate, Hctz [Amiloride-Hydrochlorothiazide], Levaquin [Levofloxacin], Meloxicam, and Peanuts MEDICATIONS Current Outpatient Medications Medication Sig ondansetron orally disintegrating (ZOFRAN ODT) 4 mg disintegrating tablet Take 1 tablet by mouth every 8 hours as needed for nausea/vomiting. nystatin (MYCOSTATIN) 100,000 unit/mL suspension Take 5 mL by mouth four times daily for 14 days. 1tsp swish in mouth for several minutes, then swallow (or expectorate) 4 times daily until gone. oxygen-air delivery systems (WALKABOUT MINI OXYGEN SYSTEM [facility]) azithromycin (ZITHROMAX) 250 mg tablet Take 1 tablet by mouth as directed. Take 2 tablets by mouth on Day 1, then 1 tablet by mouth every day thereafter for 4 days lansoprazole (PREVACID) 15 mg capsule Take 1 capsule by mouth once daily. benzonatate (TESSALON PERLES) 100 mg capsule Take 1-2 capsules by mouth three times a day as needed for cough. ALPRAZolam (XANAX) 1 mg tablet Take 1 tablet by mouth two times a day as needed for up to 30 days. buPROPion XL (WELLBUTRIN XL) 300 mg 24 hr tablet Take 1 tablet by mouth once daily. ofloxacin (FLOXIN) 0.3 % otic solution Use 5 Drops in both ears once daily. furosemide (LASIX) 20 mg tablet Take 1 tablet by mouth once daily. If you have increased swelling, okay to increase to 2 tablets daily for 2-3 days. Do not do more than once weekly. benzonatate (TESSALON PERLE) 100 mg capsule Take 2 capsules by mouth three times a day as needed. HYDROcodone-acetaminophen (NORCO) 5-325 mg per tablet Take 1 tablet by mouth every 8 hours as needed for pain. From pain management. Aware to not use with xanax. venlafaxine ER (EFFEXOR XR) 150 mg 24 hr capsule Take 1 capsule by mouth once daily. Start after taking 75 mg X 1 week. Stop the citalopram when starting this dose. loratadine (CLARITIN) 10 mg tablet Take 1 tablet by mouth once daily. levothyroxine (LEVOXYL) 200 mcg tablet Take 1 tablet by mouth once daily. Take on empty stomach. For thyroid albuterol (PROVENTIL) 2.5 mg /3 mL (0.083 %) nebulizer solution Use 3 mL via nebulizer every 6 hours as needed for wheezing/shortness of breath. amitriptyline (ELAVIL) 25 mg tablet Take 1 tablet by mouth daily at bedtime. amLODIPine (NORVASC) 5 mg tablet Take 1 tablet by mouth once daily. budesonide-formoterol (SYMBICORT) 160-4.5 mcg/actuation inhaler Inhale 2 Puffs as instructed two times a day. Ipratropium (ATROVENT HFA) 17 mcg/actuation inhaler Inhale 2 Puffs as instructed every 6 hours. lisinopril (ZESTRIL) 40 mg tablet Take 1 tablet by mouth once daily. atorvastatin (LIPITOR) 10 mg tablet Take 1 tablet by mouth daily at bedtime. For cholesterol. Cholecalciferol, Vitamin D3, 125 mcg (5,000 unit) cap Take 1 capsule by mouth once daily. Nebulizer Accessories misc 1 Each as directed. Nebulizer tubing and mouth piece. fax (more content not included)...[facility]04-01-2025 History of Present illness Narrative* Deloris Chavez APRN.CONTENT MANAGEMENT CONSULTANT - 09/14/2024 7:56 AM EDT This is a 63 year old female who presents today with: Santy is a 63-year-old female to discuss labs. HISTORY OF PRESENT ILLNESS: Headaches and Nausea: Didn't feel well yesterday. Decided to come in and get repeat CBC. Improvement today. Cough: - Reports remote episode of coughing leading to syncope. - Describes a sensation of something stuck in the throat, triggering persistent coughing. - Cough occasionally produces a liquid-like substance, not phlegm. Notes some tenderness in her face and questions if she may be developing a sinus infection - Denies increased chest pain or dyspnea beyond baseline. Asthma: - Continues to use inhalers and nebulizer. Leukocytosis. Likely from recent pneumonia and steroid use. Improving. PAST MEDICAL HISTORY: PAST MEDICAL HISTORY Diagnosis Date Allergic rhinitis, cause unspecified BMI 45.0-49.9, adult ([facility]) 08/27/2022 Essential hypertension, benign Hypothyroidism 09/26/2015 Mixed conductive and sensorineural hearing loss TRINI on CPAP Other anxiety states Perforated tympanic membrane 03/29/2011 S/P repair of ventral hernia 09/06/2022 Synovitis and tenosynovitis, unspecified Tobacco abuse 03/23/2012 PAST SURGICAL HISTORY Procedure Laterality Date COLONOSCOPY SCRN NOT HIGH RISK 09/13/2020 EGD 10/25/2020 L'SCOPE DX W/WO BRUSHINGS/WASHINGS 09/05/2022 Dr. Guadarrama LIG/TRNSXJ FLP TUBE ABDL/VAG APPR UNI/BI Tubal ligation LX REPAIR RECURRENT VENTRAL HERNIA 09/05/2022 open, w/ mesh. Dr. Guadarrama MYRINGOTOMY ASPIR&/EUSTACHIAN TUBE NFLTJ ANES Myringotomy/tubes NEUROPLASTY &/TRANSPOS MEDIAN NRV CARPAL TUNNE Bilateral 01/15/2019 Bilateral carpal tunnel release REDUCTION OF LARGE BREAST 04/23/2016 STEREOTACT BREAST BX EA LESION PC 09/30/2018 left stereotactic breast biopsy w/vacuum assisted core needle biopsy, specimen radiograph and marker placement ALLERGIES Doxycycline Monohydrate, Hctz [Amiloride-Hydrochlorothiazide], Levaquin [Levofloxacin], Meloxicam, and Peanuts MEDICATIONS Current Outpatient Medications Medication Sig ondansetron orally disintegrating (ZOFRAN ODT) 4 mg disintegrating tablet Take 1 tablet by mouth every 8 hours as needed for nausea/vomiting. nystatin (MYCOSTATIN) 100,000 unit/mL suspension Take 5 mL by mouth four times daily for 14 days. 1tsp swish in mouth for several minutes, then swallow (or expectorate) 4 times daily until gone. oxygen-air delivery systems (WALKABOUT MINI OXYGEN SYSTEM [facility]) azithromycin (ZITHROMAX) 250 mg tablet Take 1 tablet by mouth as directed. Take 2 tablets by mouth on Day 1, then 1 tablet by mouth every day thereafter for 4 days lansoprazole (PREVACID) 15 mg capsule Take 1 capsule by mouth once daily. benzonatate (TESSALON PERLES) 100 mg capsule Take 1-2 capsules by mouth three times a day as neededfor cough. ALPRAZolam (XANAX) 1 mg tablet Take 1 tablet by mouth two times a day as needed for up to 30 days. buPROPion XL (WELLBUTRIN XL) 300 mg 24 hr tablet Take 1 tablet by mouth once daily. ofloxacin (FLOXIN) 0.3 % otic solution Use 5 Drops in both ears once daily. furosemide (LASIX) 20 mg tablet Take 1 tablet by mouth once daily. If you have increased swelling, okay to increase to 2 tablets daily for 2-3 days. Do not do more than once weekly. benzonatate (TESSALON PERLE) 100 mg capsule Take 2 capsules by mouth three times a day as needed. HYDROcodone-acetaminophen (NORCO) 5-325 mg per tablet Take 1 tablet by mouth every 8 hours as needed for pain. From pain management. Aware to not use with xanax. venlafaxine ER (EFFEXOR XR) 150 mg 24 hr capsule Take 1 capsule by mouth once daily. Start after taking 75 mg X 1 week. Stop the citalopram when starting this dose. loratadine (CLARITIN) 10 mg tablet Take 1 tablet by mouth once daily. levothyroxine (LEVOXYL) 200 mcg tablet Take 1 tablet by mouth once daily. Take on empty stomach. For thyroid albuterol (PROVENTIL) 2.5 mg /3 mL (0.083 %) nebulizer solution Use 3 mL via nebulizer every 6 hours as needed for wheezing/shortness of breath. amitriptyline (ELAVIL) 25 mg tablet Take 1 tablet by mouth daily at bedtime. amLODIPine (NORVASC) 5 mg tablet Take 1 tablet by mouth once daily. budesonide-formoterol (SYMBICORT) 160-4.5 mcg/actuation inhaler Inhale 2 Puffs as instructed two times a day. Ipratropium (ATROVENT HFA) 17 mcg/actuation inhaler Inhale 2 Puffs as instructed every 6 hours. lisinopril (ZESTRIL) 40 mg tablet Take 1 tablet by mouth once daily. atorvastatin (LIPITOR) 10 mg tablet Take 1 tablet by mouth daily at bedtime. For cholesterol. Cholecalciferol, Vitamin D3, 125 mcg (5,000 unit) cap Take 1 capsule by mouth once daily. Nebulizer Accessories misc 1 Each as directed. Nebulizer tubing and mouth piece. faxed to CPAP [employer]CPAP 5-15 cmH2O, mask, tubing, filters, heated humidity, lifetime supplies. Dx: TRINI (Patient not taking: Reported on 08/19/2024) Nebulizer 1 Each as needed. NEBULIZER TUBING AND SUPPLIES. DX: CHRONIC BRONCHITIS J41.1, WHEEZING R06.2. FAX TO [employer] [phone] COMPOUNDED PRESCRIPTION Nebulizer for albuterol every fours as needed ICD: R06.2 No current facility-administered medications for this visit. FAMILY HISTORY Problem Relation Age of Onset Coronary Artery Disease Mother PE Asthma Mother Multiple Sclerosis Mother No Known Problems Father Ischemic Heart Disease Sister other (irregular heart beat) Sister Crohn's Disease Sister Heart disease Brother doesn't talk to him None Brother Stroke Maternal Grandmother Colon Cancer No Family History Anesthesia Problems No Family History Social History Tobacco Use Smoking status: Every Day Current packs/day: 0.50 Average packs/day: 1 pack/day for 37.3 years (37.1 ttl pk-yrs) Types: Cigarettes Start date: 05/29/1987 Smokeless tobacco: Never Vaping Use Vaping status: Never Used Substance Use Topics Alcohol use: No Drug use: No REVIEW OF SYSTEMS Head: (+) headache Ears/Nose/Mouth/Throat: (+) sinus pain, (-) nasal discharge, (-) allergies Cardiovascular: (-) chest pain Respiratory: (+) cough, (+) phlegm, (+) shortness of breath with exertion Neurological: (+) syncope (remote) EXAM: BP 120/84 Pulse 83 Resp 16 LMP 09/14/2013 SpO2 97% PHYSICAL EXAM: General Appearance: Well appearing, alert, in no acute distress, well-hydrated, well nourished.. Skin: Skin color, texture, turgor normal, no suspicious rashes or lesions. Head: Normocephalic, no masses, lesions, tenderness or abnormalities. Eyes: Anicteric sclera. Pupils are equally round and reactive to light. Extraocular movements are intact. . Ears: External ears normal, canals clear, Positive findings: hx of perforations. Oropharynx: mouth dry. Lungs: wheeze right base that cleared w/ cough. Heart: RRR without murmur, gallop, or rubs. No ectopy. Neurologic: Gait normal w/ walker. ASSESSMENT/PLAN 1. Leukocytosis, unspecified type (D72.829) Likely d/t recent pneumonia and steroid use. Improving. 2. Subacute cough (R05.2) - Persistent cough with remote episode of cough syncope; auscultation revealed a transient wheeze that resolved after coughing. - Recommended Mucinex to help thin secretions and facilitate clearance. - Advised to monitor symptoms and report any worsening. If she develops sinus symptoms/infection -- let us know. 3. Encounter for immunization (Z23) - Administered COVID-19 vaccine. 4. Mucopurulent chronic bronchitis (HCC) (J41.1) - Chronic condition managed with inhalers and nebulizer therapy. - Continue current inhaler and nebulizer regimen. Discussed treatment plan and patient voices understanding. Patient's questions answered appropriately. Medications and potential side effects were discussed and patient voices understanding. Return to the office as scheduled or as needed for worsening/no improvement. Deloris Chavez APRN.CONTENT MANAGEMENT CONSULTANT The patient consented to the use of [employer] software for draft documentation of the visit consistent with [facility] s Notice of Privacy Practices. documented in this encounterSt. [facility] Telephone encounter Note * Telephone Encounter - Rosio Mcneil RN - 09/08/2024 9:59 AM EDT Patient notified of results and provider's instructions. Patient verbalizes understanding. Patient states that she is feeling ok. Patient will come in and get blood work again in 2 weeks. Rosio Mcneil RN [facility]03-26-2025 Miscellaneous Notes* Telephone Encounter - Rosio Mcneil RN - 09/08/2024 9:59 AM EDT Patient notified of results and provider's instructions. Patient verbalizes understanding. Patient states that she is feeling ok. Patient will come in and get blood work again in 2 weeks. Rosio Mcneil RN * Telephone Encounter - Jose Summers LPN - 09/08/2024 9:37 AM EDT LM to return call to office. Jose Summers LPN * Telephone Encounter - Deloris Chavez APRN.CNP - 09/07/2024 6:30 PM EDT Can please let patient know that I received her repeat blood work. Her blood count continues to be a little elevated. How is she feeling? If she is feeling okay, lets just plan on repeating this again in 2 weeks to ensure stability. The order is in. documented in this encounterSt. [facility]03-[facility] Telephone encounter Note * Telephone Encounter - Jose Summers LPN - 09/08/2024 9:37 AM EDT LM to return call to office. Jose Summers LPN [facility]03-25-2025 Telephone encounter Note* Telephone Encounter - Deloris Chavez APRN.CONTENT MANAGEMENT CONSULTANT - 09/07/2024 6:30 PM EDT Can please let patient know that I received her repeat blood work. Her blood count continues to be a little elevated. How is she feeling? If she is feeling okay, lets just plan on repeating this again in 2 weeks to ensure stability. The order is in. [facility]03-24-2025 History of Present illness Narrative* Arnoldo Bragg RT(R) - 09/06/2024 8:00 AM EDT Radiology Service Progress Note PATIENT NAME: Santy Raza DATE OF SERVICE: September 06, 2024 TIME: 8:09 AM PATIENT IDENTITY VERIFICATION COMPLETED USING TWO (2) IDENTIFIERS: Name and Date of confirmedby patient verbally. FALL SCREENING: Has the patient had 2 falls in the last year or 1 fall with injury or currently using an Ambulatory Assistive Device (Walker, Cane, Wheelchair, Crutches, etc.)? No PATIENT GENDER DATA: Assigned female at . status: : No status:NO. PATIENT RELEVANT IMPLANT DATA REVIEWED: Not Applicable PATIENT PRESENTS WITH AN IMPLANTABLE OR ATTACHED TIGHTENER: No RADIOLOGY DEPARTMENT: General X-ray: Exam(s) Completed: Chest X-Ray PERIPHERAL IV DATA: Not applicable SIGNED BY: RT Jayla(Damon) September 06, 2024 8:09 AM documented in this encounterSt. Mary'[facility]03-[facility]-2025 NoteHNO ID: [id number] Author: FRANCIS, ARNOLDO, RT(R) Service: ? Author Type: Technologist Type: Progress Notes Filed: 09/06/2024 08:13 Note Text: Radiology Service Progress Note PATIENT NAME: Santy Raza DATE OF SERVICE: September 06, 2024 TIME: 8:09 AM PATIENT IDENTITY VERIFICATION COMPLETED USING TWO (2) IDENTIFIERS: Name and Date of confirmed by patient verbally. FALL SCREENING: Has the patient had 2 falls in the last year or 1 fall with injury or currently using an Ambulatory Assistive Device (Walker, Cane, Wheelchair, Crutches, etc.)? No PATIENT GENDER DATA: Assigned female at . status: : No status: NO. PATIENT RELEVANT IMPLANT DATA REVIEWED: Not Applicable PATIENT PRESENTS WITH AN IMPLANTABLE OR ATTACHED TIGHTENER: No RADIOLOGY DEPARTMENT: General X-ray: Exam(s) Completed: Chest X-Ray PERIPHERAL IV DATA: Not applicable SIGNED BY: RT Jayla(R) September 06, 2024 8:09 [facility]03-21-2025 Radiology Diagnostic study note [facility] Imaging Services [address] [place] [address] [id number] Abdomen/Pelvis WITH Contrast MR#: [id number] Acct: [id number] Name: SANTY RAZA Rep #: [id number] : 1960 F 63 From: Alexandria Santos MD PCP: ALEXI Freedman Status: REG C WALTER Study:Abdomen/Pelvis WITH Contrast Date of Ex am: 09/03/24 Exam# [id number] Ordering Dr: St david Guadarrama MD PROCEDURE: ABDOMEN/PELVIS WITH CONTRAST (CTABDPELW), 09/03/2024 REASON FOR EXAM: ABD PAIN/HERNIA TECHNIQUE: CT abdomen and pelvis was performed without IV contrast. Multiplanar reformats were generated. RADIATION DOSE SUMMARY: CTDlvol: 24.18 mGy DLP: 1153.67 mGycm One or more dose reduction techniques were used (e.g., Automated exposure control, adjustment of the mA and/or kV according to patient size, use of iterative reconstruction technique). COMPARISON: None. Exam dated 06/26/2021 could not be retrieved at the time of dictation. FINDINGS: Note that evaluation of the abdominopelvic viscera, vasculature, and remaining soft tissues is limited in the absence of IV contrast. Note the exam is slightly limited by generalized photon starvation. Note that the inferior pubic rami are partially excluded from the field of view inferiorly, with resultant exclusion of a portion of the inferior most anal canal, perineum, and surrounding tissues. Peritoneal compartment is imaged in its entirety. Lung bases: Atelectasis/scarring. Chronic granulomatous disease. Elevated LEFThemidiaphragm. Liver: Unremarkable. Spleen: Granuloma. Gallbladder: Unremarkable. Pancreas: Unremarkable. Adrenals: Unremarkable. Kidneys: Unremarkable. Bowel: No bowel dilatation or convincing inflammation. Findings related to the anterior wall of thetransverse colon as below. Top-normal caliber of the appendix without convincing inflammation. Lymph nodes: Unremarkable. Vasculature: Mild calcific atherosclerosis.. Peritoneum: Unremarkable. Bladder: Underdistended and suboptimally evaluated, grossly unremarkable. Reproductive Organs: Unremarkable. Body Wall: Small/moderate midline supraumbilical hernia contains almost exclusively fat, with neck measuring 3.1 x 1.7 cm. A minute portion of the anterior wall of the transverse colon is positioned withinthe hernia neck. Additional small fat containing umbilical hernia present more inferiorly, superimposed on rectus diastasis. Bones: L5-S1 facet arthropathy with mild anterolisthesis. Few punctate sclerotic presumed bone islands in the absence of known malignancy. Trace lumbar levoscoliosis. CT/Abdomen/Pelvis WITH Contrast IMPRESSION: 1. No acute noncontrast findings. 2. Additional description as above. Reading Location: [id number] CC: ALEXI Chavez; Dr. Murray Guadarrama MD ~ Manager Target: Signed [facility]03-19-2025 Evaluation note* Diagnosis Onset Date Resolution Status Admit Date Hernia acute September 01 8:53am [facility] Work Phone: 1(327) 710-732003-19-2025 Evaluation note* Diagnosis Onset Date Resolution Status Admit Date Hernia acute September 01 8:53am Hernia acute September 17 1:12pm Hernia acute October 04 8:58am [facility] Work Phone: [phone] Procedure note [facility] Medical Records Department [address] [place] [address] Operative Report 08/30/24 1043 MR#: [id number] Acct: [id number] Name: SANTY RAZA Rep #:[id number] : 1960 63 From: Tito Felipe MD PCP: ALEXI Freedman Status:REG S DC Location: [place] [id number]- Operative Report (Standard) Operative Information Date of Procedure: 08/30/24 Pre-Operative Diagnosis: Cervical radiculopathy, cervical spinal stenosis Post-Operative Diagnosis: Cervical radiculopathy, cervical spinal stenosis Surgery/Procedure Performed: Diagnostic/therapeutic cervical epidural steroid injection interlaminar at C7-T1 under fluoroscopic guidance sales contract administrator: No Type of Anesthesia: Local RN Documented Start/Stop Times: Operation Date: 08/30/24 10:20 Case Time Into Pre-Op 08/30/24 09:26 Procedure Start Time: 10:44 Procedure Stop Time: 10:44 Select all DRAINS/GRAFTS/IMPLANTS that apply: None Estimated Blood Loss: 0 Specimen collected: No Description of surgery: ANESTHESIA: Local. BLOOD LOSS: Minimal. COMPLICATIONS: None. DESCRIPTION OF PROCEDURE: History and physical of today was reviewed. Risks and benefits of the procedure were explained. The patient understood and agreedto proceed. Informed consent was obtained. IV inserted per routine protocol. The patient was taken to the operating room and placed in the proneposition with a pillow positioned underneath the chest. The neck area was prepped and draped in a sterile fashion using iodine x3. Under fluoroscopy guidance on an AP view, the C7-T1 interlaminar space was identified. The skin and subcutaneoustissue was anesthetized with approximately 3 mL of 1% lidocaine using a 25-gaugeregular needle. Under direct visualization on fluoroscopy, on AP view, usinga 20-gauge 3-1/2-inch Tuohy needle, the needle was advanced via the skin. The tipof the needle was maneuvered and directed towards the interlaminar space at C7-T1. Loss of resistance technique was carried to air. Loss of resistance technique was encountered. Once encountered, after negative aspiration for blood and CSF, a total of 1 mL of contrast was injected to confirm correct placement of the n eedle as well as cephalocaudal spread of the contrast. Confirmation was obtained on AP as well as lateral view. After repeated negative aspiration and confirmation, a total of 3 mL of preservative-free normal saline and 80 mg of Depo-Medrol was injected easily. The needle was thenremoved intact. The patient experienced no sign or symptoms of intrathecal or intravascular injection. The patient experienced no paresthesia. The procedurewas completed without any apparent difficulty or any complications. The patientappeared to tolerate it well. ASSESSMENT AND PLAN: This is a 63-year-old female with cervical radiculopathy, cervical spinal stenosis, status post cervical epidural steroid injection interlaminar at C7-T1 under fluoroscopic guidance, patient will continue her current medications, patient will follow-up in approximately 2 weeks for reevaluation. Surgical Findings: 1 Complications Complications: No Admit VTE Documentation VTE Present on Admission: No VTE Mechan Device Prophylaxis: None VTE Pharm Prophylaxis ordered?: No 08/30/24 1046 Cosigner Signature (if applicable): CC: ALEXI Chavez; Dr. Tito Felipe MD~ Signed [facility]03-13-2025 Telephone encounter Note* Telephone Encounter - Ramona Nelson LPN - 08/26/2024 3:25 PM EDT Patient notified of results, verbalizes understanding of instructions. Ramona Nelson LPN [facility]03-13-2025 Miscellaneous Notes* Telephone Encounter - Ramona Nelson LPN - 08/26/2024 3:25 PM EDT Patient notified of results, verbalizes understanding of instructions. Ramona Nelson LPN * Telephone Encounter - Deloris Chavez APRN.CONTENT MANAGEMENT CONSULTANT - 08/25/2024 7:22 PM EDT Can please let patient know that I received her lab results. Her blood count has not been finalized yet, but it does show that her white blood count is elevated. This is likely because she is being treated for pneumonia and has been on steroids. Lets have her repeat this next week. The order is in. Her glucose was up, but likely from being sick and on steroids. Everything else looked stable. Deloris Chavez APRN.KHURRAM documented in this encounterSt. [facility] Telephone encounter Note * Telephone Encounter - Deloris Chavez APRN.CNP - 08/25/2024 7:22 PM EDT Can please let patient know that I received her lab results. Her blood count has not been finalized yet, but it does show that her white blood count is elevated. This is likely because she is being treated for pneumonia and has been on steroids. Lets have her repeat this next week. The order is in. Her glucose was up, but likely from being sick and on steroids. Everything else looked stable. Deloris Chavez APRN.CNP [facility]03-12-2025 Telephone encounter Note* Telephone Encounter - Jose Summers LPN - 08/25/2024 10:47 AM EDT Referral faxed to Dr. Guadarrama. Jose Summers LPN [facility]03-12-2025 Miscellaneous Notes* Telephone Encounter - Jose Summers LPN - 08/25/2024 10:47 AM EDT Referral faxed to Dr. Guadarrama. Jose Summers LPN * Telephone Encounter - Deloris Chavez APRN.CNP - 08/24/2024 5:24 PM EDT Please fax referral to Dr. Guadarrama with [place]. Deloris Chavez APRN.CNP documented in this encounterSt. [facility]03[facility] Telephone encounter Note * Telephone Encounter - Deloris Chavez APRN.CNP - 08/24/2024 5:24 PM EDT Please fax referral to Dr. Guadarrama with [place]. Deloris Chavez APRN.CNP [facility]03-10-2025 Telephone encounter Note* Telephone Encounter - Trudy Wallace APRN.CNP - 08/23/2024 4:30 PM EDT Birthday verified with patient over the phone. Aware of the below information with all questions answered. Rx [facility]in to pharmacy. [facility] [facility] Miscellaneous Notes* Telephone Encounter - Trudy Wallace APRN.CNP - 08/23/2024 4:30 PM EDT Birthday verified with patient over the phone. Aware of the below information with all questions answered. Rx augmentin to pharmacy. * Telephone Encounter - Mar Mcmillan - 08/23/2024 4:21 PM EDT Santy is calling Trudy Wallace APRN.CNP today with concern regarding Medication Follow-up Calling in regarding getting medication sent to pharmacy; states she received phonce call this AM about the following: +right pneumonia. Finish azithromycin and add augmentin. [facility]. Patient has been identified by name and birthdate. Duration of symptoms: N/A Person calling: self Call patient at: at home [phone] (home) [phone] (cell) Was an appointment scheduled: No Closing statement: Results or non-symptom based questions: Thank you for calling [facility], your call will be returned within the next business day. Mar Swanson documented in this encounterSt. [facility] Telephone encounter Note * Telephone Encounter - Mar Mcmillan - 08/23/2024 4:21 PM EDT Santy is calling Trudy Wallace APRN.CNP today with concern regarding Medication Follow-up Calling in regarding getting medication sent to pharmacy; states she received phonce call this AM about the following: +right pneumonia. Finish azithromycin and add augmentin. [facility]. Patient has been identified by name and birthdate. Duration of symptoms: N/A Person calling: self Call patient at: at home [phone] (home) [phone] (cell) Was an appointment scheduled: No Closing statement: Results or non-symptom based questions: Thank you for calling [facility], your call will be returned within the next business day. Mar Swanson [facility]03-10-2025 Instructions* Patient Instructions* Deloris Chavez APRN.CNP - 08/23/2024 9:52 AM EDT Continue current medication regimen Start course of antibiotics for pneumonia Get repeat chest xray Get lab work Follow up in 1 month or sooner if needed documented in this encounterSt. [facility] Telephone encounter Note * Telephone Encounter - Trudy Wallace APRN.CNP - 08/23/2024 9:24 AM EDT Birthday verified with patient over the phone. Aware of the below information with all questions answered. +right pneumonia. Finish azithromycin and add augmentin. Advised to follow up with primary care for possible repeat imaging. [facility] Work Phone: [phone] Miscellaneous Notes* Telephone Encounter - Trudy Wallace APRN.CNP - 08/23/2024 9:24 AM EDT Birthday verified with patient over the phone. Aware of the below information with all questions answered. +right pneumonia. Finish azithromycin and add augmentin. Advised to follow up with primary care for possible repeat imaging. documented in this encounterSt. [facility] NoteHNO ID: [id number] Author: DELORIS CHAVEZ APRN.CNP Service: ? Author Type: Nurse Practitioner Type: Progress Notes Filed: 08/23/2024 19:55 Note Text: This is a 63 year old female who presents today with for a 3 month follow up. HISTORY OF PRESENT ILLNESS: Santy Raza is a 63 year old female coming in today for a 3 month follow up. Was recently in urgent care for URI. Started on z-pack and prednisone. Notified today that xray showed pneumonia. Planning to start Augmentin Today is the last day on azithromycin and prednisone Will get repeat xray in a few weeks to make sure pneumonia has resolved Has not noticed a difference in symptoms Uses Symbicort 5 times a week Uses albuterol twice per day Uses portable nebulizer HTN: Patient is compliant with meds Yes Monitors bp at home: Yes. Denies side effects: Yes. Chest pain: No. Dyspnea: Yes. Edema: Yes, sometimes in the ankles. Palpitations: No. Syncope: No. Headache: No. Dizziness: No. HYPERLIPIDEMIA: Patient is taking medications: Yes. Patient is watching diet: Yes. Patient denies myalgias: Yes. Patient denies gi upset: Yes GERD: Patient takes: Prevacid Heartburn is controlled: Yes. Bloody or black stools: No. Bowel changes: No. TRINI: Does not wear CPAP at night Does sleep with oxygen on at night and that does help Wears 2 liters as needed HYPOTHYROID: Patient is compliant with medications: Yes Patient has changes in energy: No Patient has changes in hair or skin: No Patient has temperature intolerance: No Patient has weight changes: No Depression: Feels stable Doing well on current regimen Denies worsening symptoms Anxiety: Feels stable Doing well on current regimen Denies worsening symptoms Using 1mg xanax prn 2-3 times per week REVIEW OF SYSTEMS GENERAL: No weight loss, malaise or fevers/chills HEENT: Negative for frequent or significant headaches, No changes in hearing or vision. NECK: Negative for lumps, goiter, pain and significant neck swelling RESPIRATORY: Negative for hemoptysis, wheezing, positive for intermittent shortness of breath, and cough. CARDIOVASCULAR: Negative for chest pain, orthopnea, or palpitations. Mild leg swelling in bilateral lower extremities. GI: No nausea, vomiting, or diarrhea/constipation. No hematochezia/melena. No heartburn or reflux symptoms. : No history of dysuria, frequency or incontinence MUSCULOSKELETAL: Negative for joint pain or swelling. SKIN: Negative for lesions, rash, and itching ENDOCRINE: Negative for cold or heat intolerance, polyuria, polydipsia and goiter NEURO: No history of headaches, syncope, paralysis, seizures or tremors. PAST MEDICAL HISTORY: PAST MEDICAL HISTORY Diagnosis Date Allergic rhinitis, cause unspecified BMI 45.0-49.9, adult ([facility]) 08/27/2022 Essential hypertension, benign Hypothyroidism 09/26/2015 Mixed conductive and sensorineural hearing loss TRINI on CPAP Other anxiety states Perforated tympanic membrane 03/29/2011 S/P repair of ventral hernia 09/06/2022 Synovitis and tenosynovitis, unspecified Tobacco abuse 03/23/2012 PAST SURGICAL HISTORY Procedure Laterality Date COLONOSCOPY SCRN NOT HIGH RISK 09/13/2020 EGD 10/25/2020 L'SCOPE DX W/WO BRUSHINGS/WASHINGS 09/05/2022 Dr. Guadarrama LIG/TRNSXJ FLP TUBE ABDL/VAG APPR UNI/BI Tubal ligation LX REPAIR RECURRENT VENTRAL HERNIA 09/05/2022 open, w/ mesh. Dr. Guadarrama MYRINGOTOMY ASPIRAND/EUSTACHIAN TUBE NFLTJ ANES Myringotomy/tubes NEUROPLASTY AND/TRANSPOS MEDIAN NRV CARPAL TUNNE Bilateral 01/15/2019 Bilateral carpal tunnel release REDUCTION OF LARGE BREAST 04/23/2016 STEREOTACT BREAST BX EA LESION PC 09/30/2018 left stereotactic breast biopsy w/vacuum assisted core needle biopsy, specimen radiograph and marker placement ALLERGIES Doxycycline Monohydrate, Hctz [Amiloride-Hydrochlorothiazide], Levaquin [Levofloxacin], Meloxicam, and Peanuts MEDICATIONS Current Outpatient Medications Medication Sig oxygen-air delivery systems (WALKABOUT MINI OXYGEN SYSTEM [facility]) azithromycin (ZITHROMAX) 250 mg tablet Take 1 tablet by mouth as directed. Take 2 tablets by mouth on Day 1, then 1 tablet by mouth every day thereafter for 4 days predniSONE (DELTASONE) 20 mg tablet Take 1 tablet by mouth two times a day for 5 days. lansoprazole (PREVACID) 15 mg capsule Take 1 capsule by mouth once daily. ondansetron (ZOFRAN) 4 mg tablet Take 1 tablet by mouth every 8 hours as needed for nausea/vomiting. benzonatate (TESSALON PERLES) 100 mg capsule Take 1-2 capsules by mouth three times a day as needed for cough. ALPRAZolam (XANAX) 1 mg tablet Take 1 tablet by mouth two times a day as needed for up to 30 days. buPROPion XL (WELLBUTRIN XL) 300 mg 24 hr tablet Take 1 tablet by mouth once daily. ofloxacin (FLOXIN) 0.3 % otic solution Use 5 Drops in both ears once daily. furosemide (LASIX) 20 mg tablet Take 1 (more content not included)...[facility]03-10-2025 History of Present illness Narrative* Deloris Chavez, MARIA GUADALUPE.CONTENT MANAGEMENT CONSULTANT - 08/23/2024 9:22 AM EDT This is a 63 year old female who presents today with for a 3 month follow up. HISTORY OF PRESENT ILLNESS: Santy Raza is a 63 year old female coming in today for a 3 month follow up. Was recently in urgent care for URI. Started on z-pack and prednisone. Notified today that xray showed pneumonia. Planning to start Augmentin Today is the last day on azithromycin and prednisone Will get repeat xray in a few weeks to make sure pneumonia has resolved Has not noticed a difference in symptoms Uses Symbicort 5 times a week Uses albuterol twice per day Uses portable nebulizer HTN: Patient is compliant with meds Yes Monitors bp at home: Yes. Denies side effects: Yes. Chest pain: No. Dyspnea: Yes. Edema: Yes, sometimes in the ankles. Palpitations: No. Syncope: No. Headache: No. Dizziness: No. HYPERLIPIDEMIA: Patient is taking medications: Yes. Patient is watching diet: Yes. Patient denies myalgias: Yes. Patient denies gi upset: Yes GERD: Patient takes: Prevacid Heartburn is controlled: Yes. Bloody or black stools: No. Bowel changes: No. TRINI: Does not wear CPAP at night Does sleep with oxygen on at night and that does help\ Wears 2 liters as needed HYPOTHYROID: Patient is compliant with medications: Yes Patient has changes in energy: No Patient has changes in hair or skin: No Patient has temperature intolerance: No Patient has weight changes: No Depression: Feels stable Doing well on current regimen Denies worsening symptoms Anxiety: Feels stable Doing well on current regimen Denies worsening symptoms Using 1mg xanax prn 2-3 times per week REVIEW OF SYSTEMS GENERAL: No weight loss, malaise or fevers/chills HEENT: Negative for frequent or significant headaches, No changes in hearing or vision. NECK: Negative for lumps, goiter, pain and significant neck swelling RESPIRATORY: Negative for hemoptysis, wheezing, positive for intermittent shortness of breath, and cough. CARDIOVASCULAR: Negative for chest pain, orthopnea, or palpitations. Mild leg swelling in bilaterallower extremities. GI: No nausea, vomiting, or diarrhea/constipation. No hematochezia/melena. No heartburn or reflux symptoms. : No history of dysuria, frequency or incontinence MUSCULOSKELETAL: Negative for joint pain or swelling. SKIN: Negative for lesions, rash, and itching ENDOCRINE: Negative for cold or heat intolerance, polyuria, polydipsia and goiter NEURO: No history of headaches, syncope, paralysis, seizures or tremors. PAST MEDICAL HISTORY: PAST MEDICAL HISTORY Diagnosis Date Allergic rhinitis, cause unspecified BMI 45.0-49.9, adult ([facility]) 08/27/2022 Essential hypertension, benign Hypothyroidism 09/26/2015 Mixed conductive and sensorineural hearing loss TRINI on CPAP Other anxiety states Perforated tympanic membrane 03/29/2011 S/P repair of ventral hernia 09/06/2022 Synovitis and tenosynovitis, unspecified Tobacco abuse 03/23/2012 PAST SURGICAL HISTORY Procedure Laterality Date COLONOSCOPY SCRN NOT HIGH RISK 09/13/2020 EGD 10/25/2020 L'SCOPE DX W/WO BRUSHINGS/WASHINGS 09/05/2022 Dr. Guadarrama LIG/TRNSXJ FLP TUBE ABDL/VAG APPR UNI/BI Tubal ligation LX REPAIR RECURRENT VENTRAL HERNIA 09/05/2022 open, w/ mesh. Dr. Guadarrama MYRINGOTOMY ASPIR&/EUSTACHIAN TUBE NFLTJ ANES Myringotomy/tubes NEUROPLASTY &/TRANSPOS MEDIAN NRV CARPAL TUNNE Bilateral 01/15/2019 Bilateral carpal tunnel release REDUCTION OF LARGE BREAST 04/23/2016 STEREOTACT BREAST BX EA LESION PC 09/30/2018 left stereotactic breast biopsy w/vacuum assisted core needle biopsy, specimen radiograph and marker placement ALLERGIES Doxycycline Monohydrate, Hctz [Amiloride-Hydrochlorothiazide], Levaquin [Levofloxacin], Meloxicam, and Peanuts MEDICATIONS Current Outpatient Medications Medication Sig oxygen-air delivery systems (WALKABOUT MINI OXYGEN SYSTEM [facility]) azithromycin (ZITHROMAX) 250 mg tablet Take 1 tablet by mouth as directed. Take 2 tablets by mouth on Day 1, then 1 tablet by mouth every day thereafter for 4 days predniSONE (DELTASONE) 20 mg tablet Take 1 tablet by mouth two times a day for 5 days. lansoprazole (PREVACID) 15 mg capsule Take 1 capsule by mouth once daily. ondansetron (ZOFRAN) 4 mg tablet Take 1 tablet by mouth every 8 hours as needed for nausea/vomiting. benzonatate (TESSALON PERLES) 100 mg capsule Take 1-2 capsules by mouth three times a day as neededfor cough. ALPRAZolam (XANAX) 1 mg tablet Take 1 tablet by mouth two times a day as needed for up to 30 days. buPROPion XL (WELLBUTRIN XL) 300 mg 24 hr tablet Take 1 tablet by mouth once daily. ofloxacin (FLOXIN) 0.3 % otic solution Use 5 Drops in both ears once daily. furosemide (LASIX) 20 mg tablet Take 1 tablet by mouth once daily. If you have increased swelling, okay to increase to 2 tablets daily for 2-3 days. Do not do more than once weekly. benzonatate (TESSALON PERLE) 100 mg capsule Take 2 capsules by mouth three times a day as needed. hydrOXYzine HCl (ATARAX) 25 mg tablet Take 1 tablet by mouth every 6 hours as needed for itching/rash. HYDROcodone-acetaminophen (NORCO) 5-325 mg per tablet Take 1 tablet by mouth every 8 hours as needed for pain. From pain management. Aware to not use with xanax. venlafaxine ER (EFFEXOR XR) 150 mg 24 hr capsule Take 1 capsule by mouth once daily. Start after taking 75 mg X 1 week. Stop the citalopram when starting this dose. loratadine (CLARITIN) 10 mg tablet Take 1 tablet by mouth once daily. cyclobenzaprine (FLEXERIL) 10 mg tablet Take 1 tablet by mouth three times a day as needed for muscle spasm. levothyroxine (LEVOXYL) 200 mcg tablet Take 1 tablet by mouth once daily. Take on empty stomach. For thyroid albuterol (PROVENTIL) 2.5 mg /3 mL (0.083 %) nebulizer solution Use 3 mL via nebulizer every 6 hours as needed for wheezing/shortness of breath. amitriptyline (ELAVIL) 25 mg tablet Take 1 tablet by mouth daily at bedtime. amLODIPine (NORVASC) 5 mg tablet Take 1 tablet by mouth once daily. budesonide-formoterol (SYMBICORT) 160-4.5 mcg/actuation inhaler Inhale 2 Puffs as instructed two times a day. Ipratropium (ATROVENT HFA) 17 mcg/actuation inhaler Inhale 2 Puffs as instructed every 6 hours. lisinopril (ZESTRIL) 40 mg tablet Take 1 tablet by mouth once daily. atorvastatin (LIPITOR) 10 mg tablet Take 1 tablet by mouth daily at bedtime. For cholesterol. Cholecalciferol, Vitamin D3, 125 mcg (5,000 unit) cap Take 1 capsule by mouth once daily. Nebulizer Accessories misc 1 Each as directed. Nebulizer tubing and mouth piece. faxed to CPAP [employer]AP 5-15 cmH2O, mask, tubing, filters, heated humidity, lifetime supplies. Dx: RTINI (Patient not taking: Reported on 08/19/2024) Nebulizer 1 Each as needed. NEBULIZER TUBING AND SUPPLIES. DX: CHRONIC BRONCHITIS J41.1, WHEEZING R06.2. FAX TO [employer] [phone] COMPOUNDED PRESCRIPTION Nebulizer for albuterol every fours as needed ICD: R06.2 No current facility-administered medications for this visit. FAMILY HISTORY Problem Relation Age of Onset Coronary Artery Disease Mother PE Asthma Mother Multiple Sclerosis Mother No Known Problems Father Ischemic Heart Disease Sister other (irregular heart beat) Sister Crohn's Disease Sister Heart disease Brother doesn't talk to him None Brother Stroke Maternal Grandmother Colon Cancer No Family History Anesthesia Problems No Family History Social History Tobacco Use Smoking status: Former Current packs/day: 0.00 Average packs/day: 1 pack/day for 35.8 years (35.8 ttl pk-yrs) Types: Cigarettes Start date: 05/29/1987 Quit date: 03/02/2023 Years since quittin.4 Smokeless tobacco: Never Vaping Use Vaping status: Never Used Substance Use Topics Alcohol use: No Drug use: No EXAM: LMP 09/14/2013 PHYSICAL EXAM: General Appearance: Well appearing, alert, in no acute distress, well-hydrated, well nourished.. Skin: Skin color, texture, turgor normal, no suspicious rashes or lesions. Head: Normocephalic, no masses, lesions, tenderness or abnormalities. Eyes: Anicteric sclera. Pupils are equally round and reactive to light. Extraocular movements are intact. . Ears: External ears normal, canals clear. Nose/Sinuses: Nares normal, septum midline, mucosa normal, no drainage or sinus tenderness. Oropharynx: Lips, mucosa, and tongue normal, teeth and gums normal, oropharynx normal. Lungs: Lungs clear to auscultation. No wheezing, rhonchi, rales. Heart: RRR without murmur, gallop, or rubs. No ectopy. Extremities: No deformities, edema, skin discoloration, clubbing or cyanosis. Good capillary refill. , Edema: bilateral ankle swelling, +1 pitting edema. Lymph Nodes: No cervical lymphadenopathy, No supraclavicular lymphadenopathy, No axillary lymphadenopathy., and No inguinal lymphadenopathy. ASSESSMENT/PLAN: 1. Essential hypertension, benign - ICD9: 401.1, ICD10: I10 (primary diagnosis) - Controlled - Continue current medications - Recommend home blood pressure monitoring, to bring results to next visit - Encouraged sodium restriction, DASH or Mediterranean diet - Recommend regular aerobic exercise - COMPLETE BLOOD COUNT AND DIFFERENTIAL 2. GERD without esophagitis - ICD9: 530.81, ICD10: K21.9 - Discussed lifestyle modifications including losing weight, limiting caffeine, no meals three hours before sleep, and head of bed elevation - Continue treatment with Prevacid 20 mg QD 3. Anxiety - ICD9: 300.00, ICD10: F41.9 - Stable - Taking xanax 1mg up to twice per day as needed for anxiety, usually in the mornings, managing well and would like to stay on this regimen - Taking hydroxyzine 25mg 4. Depression, recurrent (HCC) - ICD9: 296.30, ICD10: F33.9 - Stable - Taking wellbutrin 300mg 5. TRINI (obstructive sleep apnea) - ICD9: 327.23, ICD10: G47.33 - Currently not wearing CPAP at night - Discussed with patient risk factors for not wearing CPAP - Currently wearing 2 liters of oxygen at night and PRN throughout the day 6. Hyperlipidemia LDL goal <130 - ICD9: 272.4, ICD10: E78.5 - Control undetermined, due for labs - Continue current medications - Counseled on healthy diet and regular exercise - LIPID PANEL BASIC 7. Hypothyroidism, unspecified type - ICD9: 244.9, ICD10: E03.9 - Instructed patient on importance of taking on an empty stomach either first thing in the morning or at bedtime. - check TSH in 3 weeks - THYROID STIMULATING HORMONE 8. Mucopurulent chronic bronchitis (HCC) - ICD9: 491.1, ICD10: J41.1 - Currently using albuterol PRN - Currently using symbicort - On 2 liters PRN throughout the day - Discussed with patient to reach out for increased shortness of breath 9. Bacterial pneumonia - ICD9: 482.9, ICD10: J15.9 - Recent diagnosis of bacterial pneumonia - Plan to start augmentin - Discussed with patient to reach out if the antibiotic is not sent and we can send it in - Repeat chest xray in 3-4 weeks - XR CHEST 2V FRONTAL/LAT 10. Prediabetes - ICD9: 790.29, ICD10: R73.03 - Control undetermined, due for labs - Counseled patient on healthy eating habits, avoiding carbs and sugars - Counseled patient on importance of regular exercise - COMPREHENSIVE METABOLIC PANEL - HEMOGLOBIN A1C Discussed treatment plan and patient voices understanding. Patient's questions answered appropriately. Medications and potential side effects were discussed and patient voices understanding. Return to the office as scheduled or as needed for worsening/no improvement. The patient indicates understanding of these issues and agrees with the plan. Deloris Chavez APRN.KHURRAM documented in this encounterSt. [facility] History of Present illness Narrative* Yara Ramirez Tech - 08/23/2024 8:30 AM EDT Radiology Service Progress Note PATIENT NAME: Santy Raza DATE OF SERVICE: August 23, 2024 TIME: 8:46 AM PATIENT IDENTITY VERIFICATION COMPLETED USING TWO (2) IDENTIFIERS: Name and Date of confirmedby patient verbally. FALL SCREENING: Has the patient had 2 falls in the last year or 1 fall with injury or currently using an Ambulatory Assistive Device (Walker, Cane, Wheelchair, Crutches, etc.)? No PATIENT GENDER DATA: Assigned female at . status: : No status:NO. PATIENT RELEVANT IMPLANT DATA REVIEWED: Not Applicable PATIENT PRESENTS WITH AN IMPLANTABLE OR ATTACHED TIGHTENER: No RADIOLOGY DEPARTMENT: General X-ray: Exam(s) Completed: Chest X-Ray PERIPHERAL IV DATA: Not applicable SIGNED BY: Kelsie Vick August 23, 2024 8:46 AM documented in this encounterSt. Mary'[facility] NoteHNO ID: [id number] Author: YARA RAMIREZ Tech Service: ? Author Type: Technologist Type: Progress Notes Filed: 08/23/2024 08:54 Note Text: Radiology Service Progress Note PATIENT NAME: Santy Raza DATE OF SERVICE: August 23, 2024 TIME: 8:46 AM PATIENT IDENTITY VERIFICATION COMPLETED USING TWO (2) IDENTIFIERS: Name and Date of confirmed by patient verbally. FALL SCREENING: Has the patient had 2 falls in the last year or 1 fall with injury or currently using an Ambulatory Assistive Device (Walker, Cane, Wheelchair, Crutches, etc.)? No PATIENT GENDER DATA: Assigned female at . status: : No status: NO. PATIENT RELEVANT IMPLANT DATA REVIEWED: Not Applicable PATIENT PRESENTS WITH AN IMPLANTABLE OR ATTACHED TIGHTENER: No RADIOLOGY DEPARTMENT: General X-ray: Exam(s) Completed: Chest X-Ray PERIPHERAL IV DATA: Not applicable SIGNED BY: Kelsie Vick August 23, 2024 8:46 [facility]03-06-2025 Instructions* Patient Instructions* Dony Flor PA-C - 08/19/2024 9:19 AM EST ASSESSMENT/PLAN: 1. Bronchitis - - COVID & INFLUENZA A/B & RSV PCR, ROUTINE - AZITHROMYCIN 250 MG TABLET - PREDNISONE 20 MG TABLET - Continue your inhalers- Symbicort an albuterol - Can continue Tessalon - XR CHEST 2V FRONTAL/LAT Get your chest x-ray as an outpatient [facility] in [address], [facility] [id number] Outpatient radiology department Walk in 7am -6:30pm We will call you with results Discussed OTC options: Encourage fluids, rest. Flonase Zyrtec Tylenol and Motrin for pain and fever Saline Nasil spray, Neti Pot, vaporizer, Vicks. Try Cepocol lozenges or Chloraseptic throat spray. Warm salt water gargles. Cough and deep breath- 10x/hr while awake. May use OTC Mucinex (guaifenesin) as directed for cough Call PCP if sx worsen or no better. If symptoms worsen, or new symptoms develop go to ER. If you have worsening of breathing or breathing changes- go to ER. If you have persistent fever unrelieved by Tylenol/Motrin- go to the ER. Follow up as needed. Barriers to learning: none. The patient verbalizes understanding and is in agreement with plan of care. This patient encounter involved the screening or treatment of novel coronavirus infection (COVID-19). - Red flags for in person care discussed - All questions answered Dony Flor PA-C documented in this encounterSt. Mary'[facility] [id number] (AGENT OF COVID-19) RNA: Not detected INFLUENZA A RNA: Not detected INFLUENZA B RNA: Not detected RESPIRATORY SYNCYTIAL VIRUS (RSV) RNA: Not detectedMadison HealthComment on above:Performed By: #### [id number] ####[facility] LABCLIA [id number] [address]03-06-2025 NoteHNO ID: [id number] Author: DONY FLOR PA-C Service: ? Author Type: Physician Calender Roll Operator Type: Progress Notes Filed: 08/19/2024 09:30 Note Text: Surgical mask and gloves worn for all in-person care. 08/19/2024 Patient presents with: Cough: Started 5 days ago, sore throat from coughing, coughing up yellow/green mucous, coughing so much that she's going to pass out, sinus congestion, some chest congestion, has taken mucinex and tessalon pearls, pt does smoke, SUBJECTIVE: This is a 63 year old with obesity, TRINI, active smoker, hypothyroid, and h/o mucopurulent chronic bronchitis that is here today for concern for URI symptoms. HPI per the patient. The patient complains of cough, sore throat, and sinus congestion/pressure/drainage x 5 days. She does wear 2 L of oxygen at home and has a diagnosis of mucopurulent chronic bronchitis. She denies diagnosis of COPD however. She is on Symbicort and uses her albuterol. Denies fever, chills, sweats, body aches, or fatigue. Chest feels congested but she denies wheezing, shortness of breath, increased WOB, or chest pain. No n/v/d, FAN, or rash. Reviewed medical charts. COVID exposure: none Influenza exposure: none RSV exposure: none Covid Immunization Dates Current Care Gaps Covid-19 Vaccine ( season) Overdue since 04/19/2024 02/23/2024 Imm Admin: COVID-19 vaccine, age 12+ yr, bivalent (PFIZER-BIONTECH) 06/07/2023 Imm Admin: COVID-19 vaccine, age 12+ yr (PFIZER-BIONTECH COMIRNATY) 03/19/2022 Imm Admin: COVID-19 vaccine, age 12+ yr, bivalent (PFIZER-BIONTECH) 10/23/2021 Imm Admin: COVID-19 original vaccine, age 12+ yr, monovalent (PFIZER-BIONTECH - WILLETT TOP) 10/23/2021 Imm Admin: COVID-19 original vaccine, age 12+ yr, monovalent (PFIZER-BIONTECH - PURPLE TOP) Only the first 5 history entries have been loaded, but more history exists. COVID vaccine this year: yes Influenza vaccine this year: yes RSV vaccine this year: - Asthma: none Pneumonia none Tobacco: yes Pain on scale of 0-10 with 0 being no pain and 10 being greatest pain: 0 Nothing makes the symptoms better. Nothing makes them worse. Self-treatment:. Left over tessalon The severity is mild and the symptoms are not improving. The patient did not have a similar problem in the last 3 months. The patient did not take any antibiotics in the last 3 months. Barriers to learning: none. Reviewed meds, OTCs, herbals or supplements. Reviewed allergies, medications, social history, and past medical history. PAST MEDICAL HISTORY Diagnosis Date Allergic rhinitis, cause unspecified BMI 45.0-49.9, adult ([facility]) 08/27/2022 Essential hypertension, benign Hypothyroidism 09/26/2015 Mixed conductive and sensorineural hearing loss TRINI on CPAP Other anxiety states Perforated tympanic membrane 03/29/2011 S/P repair of ventral hernia 09/06/2022 Synovitis and tenosynovitis, unspecified Tobacco abuse 03/23/2012 ALLERGIES Doxycycline Monohydrate, Hctz [Amiloride-Hydrochlorothiazide], Levaquin [Levofloxacin], Meloxicam, and Peanuts MEDICATIONS Current Outpatient Medications Medication Sig lansoprazole (PREVACID) 15 mg capsule Take 1 capsule by mouth once daily. ondansetron (ZOFRAN) 4 mg tablet Take 1 tablet by mouth every 8 hours as needed for nausea/vomiting. benzonatate (TESSALON PERLES) 100 mg capsule Take 1-2 capsules by mouth three times a day as needed for cough. ALPRAZolam (XANAX) 1 mg tablet Take 1 tablet by mouth two times a day as needed for up to 30 days. buPROPion XL (WELLBUTRIN XL) 300 mg 24 hr tablet Take 1 tablet by mouth once daily. ofloxacin (FLOXIN) 0.3 % otic solution Use 5 Drops in both ears once daily. furosemide (LASIX) 20 mg tablet Take 1 tablet by mouth once daily. If you have increased swelling, okay to increase to 2 tablets daily for 2-3 days. Do not do more than once weekly. benzonatate (TESSALON PERLE) 100 mg capsule Take 2 capsules by mouth three times a day as needed. hydrOXYzine HCl (ATARAX) 25 mg tablet Take 1 tablet by mouth every 6 hours as needed for itching/rash. HYDROcodone-acetaminophen (NORCO) 5-325 mg per tablet Take 1 tablet by mouth every 8 hours as needed for pain. From pain management. Aware to not use with xanax. venlafaxine ER (EFFEXOR XR) 150 mg 24 hr capsule Take 1 capsule by mouth once daily. Start after taking 75 mg X 1 week. Stop the citalopram when starting this dose. loratadine (CLARITIN) 10 mg tablet Take 1 tablet by mouth once daily. cyclobenzaprine (FLEXERIL) 10 mg tablet Take 1 tablet by mouth three times a day as needed for muscle spasm. levothyroxine (LEVOXYL) 200 mcg tablet Take 1 tablet by mouth once daily. Take on empty stomach. For thyroid albuterol (PROVENTIL) 2.5 mg /3 mL (0.083 %) nebulizer solution Use 3 mL via nebulizer every 6 hours as needed for wheezing/shortness of breath. amitriptyline (ELAVIL) 25 mg tablet Take 1 tablet by mouth daily at bedtime. amLODI (more content not included)...[facility]03-06-2025 History of Present illness Narrative* Dony Flor PA-C - 08/19/2024 9:04 AM EST Surgical mask and gloves worn for all in-person care. 08/19/2024 Patient presents with: Cough: Started 5 days ago, sore throat from coughing, coughing up yellow/green mucous, coughing so much that she's going to pass out, sinus congestion, some chest congestion, has taken mucinex and tessalon pearls, pt does smoke, SUBJECTIVE: This is a 63 year old with obesity, TRINI, active smoker, hypothyroid, and h/o mucopurulent chronic bronchitis that is here today for concern for URI symptoms. HPI per the patient. The patient complains of cough, sore throat, and sinus congestion/pressure/drainage x 5 days. She does wear 2 L of oxygen at home and has a diagnosis of mucopurulent chronic bronchitis. She denies diagnosis of COPD however. She is on Symbicort and uses her albuterol. Denies fever, chills, sweats, body aches, or fatigue. Chest feels congested but she denies wheezing, shortness of breath, increased WOB, or chest pain. No n/v/d, FAN, or rash. Reviewed medical charts. COVID exposure: none Influenza exposure: none RSV exposure: none Covid Immunization Dates Current Care Gaps Covid-19 Vaccine ( season) Overdue since 04/19/2024 02/23/2024 Imm Admin: COVID-19 vaccine, age 12+ yr, bivalent (PFIZER-BIONTECH) 06/07/2023 Imm Admin: COVID-19 vaccine, age 12+ yr (PFIZER-BIONTECH COMIRNATY) 03/19/2022 Imm Admin: COVID-19 vaccine, age 12+ yr, bivalent (PFIZER-BIONTECH) 10/23/2021 Imm Admin: COVID-19 original vaccine, age 12+ yr, monovalent (PFIZER- BIONTECH - WILLETT TOP) 10/23/2021 Imm Admin: COVID-19 original vaccine, age 12+ yr, monovalent (PFIZER- BIONTECH - PURPLE TOP) Only the first 5 history entries have been loaded, but more history exists. COVID vaccine this year: yes Influenza vaccine this year: yes RSV vaccine this year: - Asthma: none Pneumonia none Tobacco: yes Pain on scale of 0-10 with 0 being no pain and 10 being greatest pain: 0 Nothing makes the symptoms better. Nothing makes them worse. Self-treatment:. Left over tessalon The severity is mild and the symptoms are not improving. The patient did not have a similar problem in the last 3 months. The patient did not take any antibiotics in the last 3 months. Barriers to learning: none. Reviewed meds, OTCs, herbals or supplements. Reviewed allergies, medications, social history, and past medical history. PAST MEDICAL HISTORY Diagnosis Date Allergic rhinitis, cause unspecified BMI 45.0-49.9, adult ([facility]) 08/27/2022 Essential hypertension, benign Hypothyroidism 09/26/2015 Mixed conductive and sensorineural hearing loss TRINI on CPAP Other anxiety states Perforated tympanic membrane 03/29/2011 S/P repair of ventral hernia 09/06/2022 Synovitis and tenosynovitis, unspecified Tobacco abuse 03/23/2012 ALLERGIES Doxycycline Monohydrate, Hctz [Amiloride-Hydrochlorothiazide], Levaquin [Levofloxacin], Meloxicam, and Peanuts MEDICATIONS Current Outpatient Medications Medication Sig lansoprazole (PREVACID) 15 mg capsule Take 1 capsule by mouth once daily. ondansetron (ZOFRAN) 4 mg tablet Take 1 tablet by mouth every 8 hours as needed for nausea/vomiting. benzonatate (TESSALON PERLES) 100 mg capsule Take 1-2 capsules by mouth three times a day as neededfor cough. ALPRAZolam (XANAX) 1 mg tablet Take 1 tablet by mouth two times a day as needed for up to 30 days. buPROPion XL (WELLBUTRIN XL) 300 mg 24 hr tablet Take 1 tablet by mouth once daily. ofloxacin (FLOXIN) 0.3 % otic solution Use 5 Drops in both ears once daily. furosemide (LASIX) 20 mg tablet Take 1 tablet by mouth once daily. If you have increased swelling, okay to increase to 2 tablets daily for 2-3 days. Do not do more than once weekly. benzonatate (TESSALON PERLE) 100 mg capsule Take 2 capsules by mouth three times a day as needed. hydrOXYzine HCl (ATARAX) 25 mg tablet Take 1 tablet by mouth every 6 hours as needed for itching/rash. HYDROcodone-acetaminophen (NORCO) 5-325 mg per tablet Take 1 tablet by mouth every 8 hours as needed for pain. From pain management. Aware to not use with xanax. venlafaxine ER (EFFEXOR XR) 150 mg 24 hr capsule Take 1 capsule by mouth once daily. Start after taking 75 mg X 1 week. Stop the citalopram when starting this dose. loratadine (CLARITIN) 10 mg tablet Take 1 tablet by mouth once daily. cyclobenzaprine (FLEXERIL) 10 mg tablet Take 1 tablet by mouth three times a day as needed for muscle spasm. levothyroxine (LEVOXYL) 200 mcg tablet Take 1 tablet by mouth once daily. Take on empty stomach. For thyroid albuterol (PROVENTIL) 2.5 mg /3 mL (0.083 %) nebulizer solution Use 3 mL via nebulizer every 6 hours as needed for wheezing/shortness of breath. amitriptyline (ELAVIL) 25 mg tablet Take 1 tablet by mouth daily at bedtime. amLODIPine (NORVASC) 5 mg tablet Take 1 tablet by mouth once daily. budesonide-formoterol (SYMBICORT) 160-4.5 mcg/actuation inhaler Inhale 2 Puffs as instructed two times a day. Ipratropium (ATROVENT HFA) 17 mcg/actuation inhaler Inhale 2 Puffs as instructed every 6 hours. lisinopril (ZESTRIL) 40 mg tablet Take 1 tablet by mouth once daily. atorvastatin (LIPITOR) 10 mg tablet Take 1 tablet by mouth daily at bedtime. For cholesterol. Cholecalciferol, Vitamin D3, 125 mcg (5,000 unit) cap Take 1 capsule by mouth once daily. fluticasone (FLONASE) 50 mcg/actuation nasal spray Use 2 Sprays in each nostril once daily. Rinse mouth after use. Nebulizer Accessories misc 1 Each as directed. Nebulizer tubing and mouth piece. faxed to CPAP [employer]AP 5-15 cmH2O, mask, tubing, filters, heated humidity, lifetime supplies. Dx: TRINI Nebulizer 1 Each as needed. NEBULIZER TUBING AND SUPPLIES. DX: CHRONIC BRONCHITIS J41.1, WHEEZING R06.2. [facility] [phone] COMPOUNDED PRESCRIPTION Nebulizer for albuterol every fours as needed ICD: R06.2 No current facility-administered medications for this visit. Medications and allergies reviewed by this provider. SOCIAL HISTORY Social History Tobacco Use Smoking status: Former Current packs/day: 0.00 Average packs/day: 1 pack/day for 35.8 years (35.8 ttl pk-yrs) Types: Cigarettes Start date: 05/29/1987 Quit date: 03/02/2023 Years since quittin.4 Smokeless tobacco: Never Vaping Use Vaping status: Never Used Substance Use Topics Alcohol use: No Drug use: No REVIEW OF SYSTEMS Review of Systems Constitutional: Negative. HENT: Positive for congestion, postnasal drip, rhinorrhea and sinus pressure. Eyes: Negative. Respiratory: Positive for cough. Cardiovascular: Negative. Gastrointestinal: Negative. Endocrine: Negative. Genitourinary: Negative. Musculoskeletal: Negative. Skin: Negative. Allergic/Immunologic: Negative. Neurological: Negative. Hematological: Negative. Psychiatric/Behavioral: Negative. All other systems reviewed and are negative. OBJECTIVE: BP 115/61 (BP Site: Right Arm, BP Position: Sitting, BP Cuff Size: Regular Adult) Pulse 83 Temp36.7 C (98.1 F) (Right Tympanic) Resp 22 Ht 165.1 cm (5' 5) Wt (!) 141.7 kg (312 lb 8 oz) LMP 09/14/2013 SpO2 96% BMI 52.00 kg/m . Vital signs reviewed by this provider. Physical Exam Vitals reviewed. Constitutional: General: She is not in acute distress. Appearance: Normal appearance. She is well-developed and normal weight. She is not ill-appearing, toxic-appearing or diaphoretic. Comments: Has O2 on her walker. Puts it back on after exam. Pulse ox 96% without O2, resting HENT: Head: Normocephalic and atraumatic. No right periorbital erythema or left periorbital erythema. Salivary Glands: Right salivary gland is not diffusely enlarged or tender. Left salivary gland is not diffusely enlarged or tender. Right Ear: Tympanic membrane, ear canal and external ear normal. Left Ear: Tympanic membrane, ear canal and external ear normal. Nose: Congestion and rhinorrhea present. Rhinorrhea is clear. Right Sinus: No maxillary sinus tenderness or frontal sinus tenderness. Left Sinus: No maxillary sinus tenderness or frontal sinus tenderness. Mouth/Throat: Lips: [place]. No lesions. Mouth: Mucous membranes are moist. No oral lesions. Dentition: No gum lesions. Tongue: No lesions. Tongue does not deviate from midline. Palate: No mass and lesions. Pharynx: Oropharynx is clear. No pharyngeal swelling, oropharyngeal exudate, posterior oropharyngeal erythema or uvula swelling. Tonsils: No tonsillar exudate or tonsillar abscesses. Eyes: General: Lids are normal. No scleral icterus. Right eye: No discharge. Left eye: No discharge. Extraocular Movements: Extraocular movements intact. Conjunctiva/sclera: Conjunctivae normal. Pupils: Pupils are equal, round, and reactive to light. Pupils are equal. Cardiovascular: Rate and Rhythm: Normal rate and regular rhythm. Heart sounds: Normal heart sounds. Pulmonary: Effort: Pulmonary effort is normal. Breath sounds: Normal air entry. Examination of the right-lower field reveals decreased breath sounds. Examination of the left-lower field reveals decreased breath sounds. Decreased breath sounds present. Musculoskeletal: Cervical back: Full passive range of motion without pain. No spinous process tenderness or musculartenderness. Lymphadenopathy: Head: Right side of head: No submental, submandibular, tonsillar, preauricular or posterior auricular adenopathy. Left side of head: No submental, submandibular, tonsillar, preauricular or posterior auricular adenopathy. Cervical: No cervical adenopathy. Skin: General: Skin is warm. Capillary Refill: Capillary refill takes less than 2 seconds. Findings: No rash. Neurological: General: No focal deficit present. Mental Status: She is alert and oriented to person, place, and time. Cranial Nerves: No facial asymmetry. Psychiatric: Attention and Perception: Attention normal. Behavior: Behavior is cooperative. Santy Raza - COVID swab collected at time of office visit - Discussed symptom monitoring and supportive care - Red flag symptoms requiring follow up discussed ASSESSMENT/PLAN: 1. Bronchitis - ICD9: 490, ICD10: J40 - COVID & INFLUENZA A/B & RSV PCR, ROUTINE Reports Doxy and Levaquin allergy Declines Amox/Augmentin- states is does not work Reports Zpak is best. Declines other options - AZITHROMYCIN 250 MG TABLET - PREDNISONE 20 MG TABLET - Continue your inhalers- Symbicort an albuterol - Can continue Tessalon - XR CHEST 2V FRONTAL/LAT Get your chest x-ray as an outpatient [facility] [address] [address] Outpatient radiology department Walk in 7am -6:30pm We will call you with results Discussed OTC options: Encourage fluids, rest. Flonase Zyrtec Tylenol and Motrin for pain and fever Saline Nasil spray, Neti Pot, vaporizer, Vicks. Try Cepocol lozenges or Chloraseptic throat spray. Warm salt water gargles. Cough and deep breath- 10x/hr while awake. May use OTC Mucinex (guaifenesin) as directed for cough Call PCP if sx worsen or no better. If symptoms worsen, or new symptoms develop go to ER. If you have worsening of breathing or breathing changes- go to ER. If you have persistent fever unrelieved by Tylenol/Motrin- go to the ER. Follow up as needed. Barriers to learning: none. The patient verbalizes understanding and is in agreement with plan of care. This patient encounter involved the screening or treatment of novel coronavirus infection (COVID-19). - Red flags for in person care discussed - All questions answered Dony Flor PA-C Medical Decision Making: Problems: Moderate: New problem with uncertain prognosis Data: Unique source(s) for external note(s) reviewed: 3+ Unique test(s) ordered: 2 Risk: Low: Low risk from testing/treatment Moderate: Drug management Medical Decision Making Level: 4 - Moderate History and Record Review External record(s) reviewed: prior outpatient record. Findings from review of outpatient records: Smoker, chronic mucopurulent bronchitis, on O2, plan ofcare from previous episodes of bronchitis Systemic symptoms present included: Fatigue, SHEIKH Differential Diagnoses - Bronchitis is more likely for the following reason(s): suggested by H&P - pneumonia, sinusitis is less likely for the following reason(s): H&P not suggestive Contributing Factors Social Determinants of Health significantly affecting care: smoking Disposition The patient was discharged. OTC Medications were advised: Discussed OTC options: Encourage fluids, rest. Flonase Zyrtec Tylenol and Motrin for pain and fever Saline Nasil spray, Neti Pot, vaporizer, Vicks. Try Cepocol lozenges or Chloraseptic throat spray. Warm salt water gargles. Cough and deep breath- 10x/hr while awake. May use OTC Mucinex (guaifenesin) as directed for cough documented [facility] Tele[facility] encounter Note * Telephone Encounter - Shanta Johnston MA - 08/16/2024 9:08 AM EST Request added to another rx request. Shanta Johnston MA August 16, 2024 9:[address] [facility]03-03-2025 Miscellaneous Notes* Telephone Encounter - Shanta Johnston MA - 08/16/2024 9:08 AM EST Request added to another rx request. Shanta Johnston MA August 16, 2024 9:08 AM documented in this encounterSt. [facility] Telephone encounter Note * Telephone Encounter - Shanta Johnston MA - 08/16/2024 9:06 AM EST Patient also sent [employer] requesting refill of Xanax. Patient phones requesting refills as follows: Requested Prescriptions Pending Prescriptions Disp Refills lansoprazole (PREVACID) 15 mg capsule 30 capsule 11 Sig: Take 1 capsule by mouth once daily. ondansetron (ZOFRAN) 4 mg tablet 30 tablet 3 Sig: Take 1 tablet by mouth every 8 hours as needed for nausea/vomiting. benzonatate (TESSALON PERLES) 100 mg capsule 40 capsule 1 Sig: Take 1-2 capsules by mouth three times a day as needed for cough. ALPRAZolam (XANAX) 1 mg tablet 60 tablet 0 Sig: Take 1 tablet by mouth two times a day as needed for up to 30 days. Please review and advise. Shanta Johnston MA [facility]03-03-2025 Miscellaneous Notes* Telephone Encounter - Shanta Johnston MA - 08/16/2024 9:06 AM EST Patient also sent mychart requesting refill of Xanax. Patient phones requesting refills as follows: Requested Prescriptions Pending Prescriptions Disp Refills lansoprazole (PREVACID) 15 mg capsule 30 capsule 11 Sig: Take 1 capsule by mouth once daily. ondansetron (ZOFRAN) 4 mg tablet 30 tablet 3 Sig: Take 1 tablet by mouth every 8 hours as needed for nausea/vomiting. benzonatate (TESSALON PERLES) 100 mg capsule 40 capsule 1 Sig: Take 1-2 capsules by mouth three times a day as needed for cough. ALPRAZolam (XANAX) 1 mg tablet 60 tablet 0 Sig: Take 1 tablet by mouth two times a day as needed for up to 30 days. Please review and advise. Shanta Johnston MA * Telephone Encounter - Claudia Smallwood LPN - 08/16/2024 8:17 AM EST Prescription Refill Information The patient has been identified by name and date of : Yes Caregiver verified no other encounters exist for this prescription request: Yes Caregiver confirmed with patient/requestor that no other refills are due, in the near future, with this provider at this time: Yes The last office visit in the department: 04/30/24 Does the patient have a future office visit with this provider/department: Yes Requested Prescriptions Pending Prescriptions Disp Refills lansoprazole (PREVACID) 15 mg capsule 30 capsule 11 Sig: Take 1 capsule by mouth once daily. Claudia Smallwood LPN August 16, 2024 8:17 AM documented in this encounterSt. [facility]03[facility] Telephone encounter Note * Telephone Encounter - Shanta Johnston MA - 08/16/2024 9:03 AM EST Taken care of in another rx request. Shanta Johnston MA August 16, 2024 9:[address] [facility]03-03-2025 Miscellaneous Notes* Telephone Encounter - Shanta Johnston MA - 08/16/2024 9:03 AM EST Taken care of in another rx request. Shanta Johnston MA August 16, 2024 9:08 AM documented in this encounterSt. [facility] Telephone encounter Note * Telephone Encounter - Claudia Smallwood LPN - 08/16/2024 8:17 AM EST Prescription Refill Information The patient has been identified by name and date of : Yes Caregiver verified no other encounters exist for this prescription request: Yes Caregiver confirmed with patient/requestor that no other refills are due, in the near future, with this provider at this time: Yes The last office visit in the department: 04/30/24 Does the patient have a future office visit with this provider/department: Yes Requested Prescriptions Pending Prescriptions Disp Refills lansoprazole (PREVACID) 15 mg capsule 30 capsule 11 Sig: Take 1 capsule by mouth once daily. Claudia Smallwood LPN August 16, 2024 8:[address] [facility]01-29-2025 Telephone encounter Note* Telephone Encounter - Ramona Nelson LPN - 07/14/2024 8:44 AM EST Prescription Refill Information The patient has been identified by name and date of : Yes Caregiver verified no other encounters exist for this prescription request: Yes Caregiver confirmed with patient/requestor that no other refills are due, in the near future, with this provider at this time: Yes The last office visit in the department: 04/30/24 Does the patient have a future office visit with this provider/department: Yes 07/20/24 Requested Prescriptions Pending Prescriptions Disp Refills buPROPion XL (WELLBUTRIN XL) 300 mg 24 hr tablet 30 tablet 5 Sig: Take 1 tablet by mouth once daily. Ramona Nelson LPN July 14, 2024 8:[address] [facility]01-29-2025 Miscellaneous Notes* Telephone Encounter - Ramona Nelson LPN - 07/14/2024 8:44 AM EST Prescription Refill Information The patient has been identified by name and date of : Yes Caregiver verified no other encounters exist for this prescription request: Yes Caregiver confirmed with patient/requestor that no other refills are due, in the near future, with this provider at this time: Yes The last office visit in the department: 04/30/24 Does the patient have a future office visit with this provider/department: Yes 07/20/24 Requested Prescriptions Pending Prescriptions Disp Refills buPROPion XL (WELLBUTRIN XL) 300 mg 24 hr tablet 30 tablet 5 Sig: Take 1 tablet by mouth once daily. Ramona Nelson LPN July 14, 2024 8:47 AM documented in this encounterSt. [facility] Telephone encounter Note * Telephone Encounter - Bhavani Garrison LPN - 06/10/2024 4:59 PM EST Prescription Refill Information The patient has been identified by name and date of : Yes Caregiver verified no other encounters exist for this prescription request: Yes Caregiver confirmed with patient/requestor that no other refills are due, in the near future, with this provider at this time: Yes The last office visit in the department: 04/30/24 Does the patient have a future office visit with this provider/department: Yes Requested Prescriptions Pending Prescriptions Disp Refills ALPRAZolam (XANAX) 1 mg tablet 60 tablet 0 Sig: Take 1 tablet by mouth two times a day as needed for up to 30 days. Bhavani Garrison LPN June 10, 2024 5:[address] [facility]12-26-2024 Miscellaneous Notes* Telephone Encounter - Bhavani Garrison LPN - 06/10/2024 4:59 PM EST Prescription Refill Information The patient has been identified by name and date of : Yes Caregiver verified no other encounters exist for this prescription request: Yes Caregiver confirmed with patient/requestor that no other refills are due, in the near future, with this provider at this time: Yes The last office visit in the department: 04/30/24 Does the patient have a future office visit with this provider/department: Yes Requested Prescriptions Pending Prescriptions Disp Refills ALPRAZolam (XANAX) 1 mg tablet 60 tablet 0 Sig: Take 1 tablet by mouth two times a day as needed for up to 30 days. Bhavani Garrison LPN June 10, 2024 5:00 PM documented in this encounterSt. [facility]12-[facility] Telephone encounter Note * Telephone Encounter - Jose Summers LPN - 06/04/2024 1:59 PM EST Prescription Refill Information The patient has been identified by name and date of : Yes Caregiver verified no other encounters exist for this prescription request: Yes Caregiver confirmed with patient/requestor that no other refills are due, in the near future, with this provider at this time: Yes The last office visit in the department: 04/30/24 Does the patient have a future office visit with this provider/department: Yes, 07/20/24 Requested Prescriptions Pending Prescriptions Disp Refills furosemide (LASIX) 20 mg tablet 40 tablet 5 Sig: Take 1 tablet by mouth once daily. If you have increased swelling, okay to increase to 2 tablets daily for 2-3 days. Do not do more than once weekly. Jose Summers LPN June 04, 2024 2:[address] [facility]12-20-2024 Telephone encounter Note* Telephone Encounter - Ramona Nelson LPN - 06/04/2024 1:59 PM EST Prescription Refill Information The patient has been identified by name and date of : Yes Caregiver verified no other encounters exist for this prescription request: Yes Caregiver confirmed with patient/requestor that no other refills are due, in the near future, with this provider at this time: Yes The last office visit in the department: 04/19/24 Does the patient have a future office visit with this provider/department: Yes 07/20/24 Requested Prescriptions Pending Prescriptions Disp Refills ofloxacin (FLOXIN) 0.3 % otic solution 10 mL 0 Sig: Use 5 Drops in both ears once daily. Ramona Nelson LPN June 04, 2024 2:[address] [facility]12-20-2024 Miscellaneous Notes* Telephone Encounter - Ramona Nelson LPN - 06/04/2024 1:59 PM EST Prescription Refill Information The patient has been identified by name and date of : Yes Caregiver verified no other encounters exist for this prescription request: Yes Caregiver confirmed with patient/requestor that no other refills are due, in the near future, with this provider at this time: Yes The last office visit in the department: 04/19/24 Does the patient have a future office visit with this provider/department: Yes 07/20/24 Requested Prescriptions Pending Prescriptions Disp Refills ofloxacin (FLOXIN) 0.3 % otic solution 10 mL 0 Sig: Use 5 Drops in both ears once daily. Ramona Nelson LPN June 04, 2024 2:00 PM documented in this encounter[facility] Miscellaneous Notes* Telephone Encounter - Jose Summers LPN - 06/04/2024 1:59 PM EST Prescription Refill Information The patient has been identified by name and date of : Yes Caregiver verified no other encounters exist for this prescription request: Yes Caregiver confirmed with patient/requestor that no other refills are due, in the near future, with this provider at this time: Yes The last office visit in the department: 04/30/24 Does the patient have a future office visit with this provider/department: Yes, 07/20/24 Requested Prescriptions Pending Prescriptions Disp Refills furosemide (LASIX) 20 mg tablet 40 tablet 5 Sig: Take 1 tablet by mouth once daily. If you have increased swelling, okay to increase to 2 tablets daily for 2-3 days. Do not do more than once weekly. Jose Summers LPN June 04, 2024 2:00 PM documented in this encounterSt[facility]24 NoteHNO ID: [id number] Author: YARELY GALVAN PA-C Service: ? Author Type: Physician Calender Roll Operator Type: Progress Notes Filed: 06/02/2024 10:00 Note Text: This note was created using [employer]. Subjective Santy Raza is a 63 year old female. HPI Patient presents with cough and chest congestion over the past 5 days. She does wear 2 L of oxygen at home and has a diagnosis of mucopurulent chronic bronchitis. She denies diagnosis of COPD however. She is on Symbicort and uses her albuterol. She had a fever the first night. She has been wheezy. No chest pain. 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 That seems to have improved. No diarrhea or vomiting.She does still smoke. Review of Systems Constitutional: Positive for fever. HENT: Positive for congestion, ear discharge, postnasal drip and sinus pressure. Negative for ear pain. Respiratory: Positive for cough and wheezing. Cardiovascular: Negative. Gastrointestinal: Negative. Genitourinary: Negative. Musculoskeletal: Negative. All other systems reviewed and are negative. 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 120 tablet 2 triamcinolone acetonide (KENALOG) 0.1 % cream Apply 1 application to affected area two times a day. Apply to affected area. Location: arms 80 g 2 HYDROcodone-acetaminophen (NORCO) 5-325 mg per tablet Take 1 tablet by mouth every 8 hours as needed for pain. From pain management. Aware to not use with xanax. benzonatate (TESSALON PERLES) 100 mg capsule Take 1-2 capsules by mouth three times a day as needed for cough. 40 capsule 1 venlafaxine ER (EFFEXOR XR) 150 mg 24 hr capsule Take 1 capsule by mouth once daily. Start after taking 75 mg X 1 week. Stop the citalopram when starting this dose. 90 capsule 1 loratadine (CLARITIN) 10 mg tablet Take 1 tablet by mouth once daily. 30 tablet 11 cyclobenzaprine (FLEXERIL) 10 mg tablet Take 1 tablet by mouth three times a day as needed for muscle spasm. 20 tablet 0 buPROPion XL (WELLBUTRIN XL) 300 mg 24 hr tablet Take 1 tablet by mouth once daily. 30 tablet 5 furosemide (LASIX) 20 mg tablet Take 1 tablet by mouth once daily. If you have increased swelling, okay to increase to 2 tablets daily for 2-3 days. Do not do more than once weekly. 40 tablet 5 levothyroxine (LEVOXYL) 200 mcg tablet Take 1 tablet by mouth once daily. Take on empty stomach. For thyroid 30 tablet 11 ofloxacin (FLOXIN) 0.3 % otic solution Use 5 Drops in both ears once daily. 10 mL 0 albuterol (PROVENTIL) 2.5 mg /3 mL (0.083 %) nebulizer solution Use 3 mL via nebulizer every 6 hours as needed for wheezing/shortness of breath. 300 mL 1 amitriptyline (ELAVIL) 25 mg tablet Take 1 tablet by mouth daily at bedtime. 90 tablet 3 amLODIPine (NORVASC) 5 mg tablet Take 1 tablet by mouth once daily. 90 tablet 3 budesonide-formoterol (SYMBICORT) 160-4.5 mcg/actuation inhaler Inhale 2 Puffs as instructed two times a day. 1 Each 5 Ipratropium (ATROVENT HFA) 17 mcg/actuation inhaler Inhale 2 Puffs as instructed every 6 hours. 1 Each 3 lisinopril (ZESTRIL) 40 mg tablet Take 1 tablet by mouth once daily. 90 tablet 3 atorvastatin (LIPITOR) 10 mg tablet Take 1 tablet by mouth daily at bedtime. For cholesterol. 90 tablet 3 Cholecalciferol, Vitamin D3, 125 mcg (5,000 unit) cap Take 1 capsule by mouth once daily. 30 capsule 11 lansoprazole (PREVACID) 15 mg capsule Take 1 capsule by mouth once daily. 30 capsule 11 ondansetron (ZOFRAN) 4 mg tablet Take 1 tablet by mouth every 8 hours as needed for nausea/vomiting. 30 tablet 3 fluticasone (FLONASE) 50 mcg/actuation nasal spray Use 2 Sprays in each nostril once daily. Rinse mouth after use. 1 Each 11 Nebulizer Accessories misc 1 Each as directed. Nebulizer tubing and mouth piece. faxed to 3 Each 5 CPAP autoCPAP 5-15 cmH2O, mask, tubing, filters, heated humidity, lifetime supplies. Dx: TRINI 1 Device 0 Nebulizer 1 Each as needed. NEBULIZER TUBING AND SUPPLIES. DX: CHRONIC BRONCHITIS J41.1, WHEEZING R06.2. FAX TO [facility] [place] [phone] 1 Each 11 COMPOUNDED PRESCRIPTION Nebulizer for albuterol every fours as needed ICD: R06.2 1 Device 0 doxycycline (VIBRA-TABS) 100 mg tablet Take 1 tablet by mouth two times a day for 10 days. 20 tablet 0 predniSONE (DELTASONE) 20 mg tablet Take 2 tablets by mouth once daily for 5 days. 10 tablet 0 benzonatate (TESSALON PERLE) 100 (more content not included)...[facility]12-18-2024 History of Present illness Narrative* Yarely Galvan PA-C - 06/02/2024 9:57 AM EST This note was created using [employer]. Subjective Santy Raza is a 63 year old female. HPI Patient presents with cough and chest congestion over the past 5 days. She does wear 2 L of oxygen at home and has a diagnosis of mucopurulent chronic bronchitis. She denies diagnosis of COPD however. She is on Symbicort and uses her albuterol. She had a fever the first night. She has been wheezy. No chest pain. 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 That seems to have improved. No diarrhea or vomiting.She does still smoke. Review of Systems Constitutional: Positive for fever. HENT: Positive for congestion, ear discharge, postnasal drip and sinus pressure. Negative for ear pain. Respiratory: Positive for cough and wheezing. Cardiovascular: Negative. Gastrointestinal: Negative. Genitourinary: Negative. Musculoskeletal: Negative. All other systems reviewed and are negative. 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 120 tablet 2 triamcinolone acetonide (KENALOG) 0.1 % cream Apply 1 application to affected area two times a day.Apply to affected area. Location: arms 80 g 2 HYDROcodone-acetaminophen (NORCO) 5-325 mg per tablet Take 1 tablet by mouth every 8 hours as needed for pain. From pain management. Aware to not use with xanax. benzonatate (TESSALON PERLES) 100 mg capsule Take 1-2 capsules by mouth three times a day as neededfor cough. 40 capsule 1 venlafaxine ER (EFFEXOR XR) 150 mg 24 hr capsule Take 1 capsule by mouth once daily. Start after taking 75 mg X 1 week. Stop the citalopram when starting this dose. 90 capsule 1 loratadine (CLARITIN) 10 mg tablet Take 1 tablet by mouth once daily. 30 tablet 11 cyclobenzaprine (FLEXERIL) 10 mg tablet Take 1 tablet by mouth three times a day as needed for muscle spasm. 20 tablet 0 buPROPion XL (WELLBUTRIN XL) 300 mg 24 hr tablet Take 1 tablet by mouth once daily. 30 tablet 5 furosemide (LASIX) 20 mg tablet Take 1 tablet by mouth once daily. If you have increased swelling, okay to increase to 2 tablets daily for 2-3 days. Do not do more than once weekly. 40 tablet 5 levothyroxine (LEVOXYL) 200 mcg tablet Take 1 tablet by mouth once daily. Take on empty stomach. For thyroid 30 tablet 11 ofloxacin (FLOXIN) 0.3 % otic solution Use 5 Drops in both ears once daily. 10 mL 0 albuterol (PROVENTIL) 2.5 mg /3 mL (0.083 %) nebulizer solution Use 3 mL via nebulizer every 6 hours as needed for wheezing/shortness of breath. 300 mL 1 amitriptyline (ELAVIL) 25 mg tablet Take 1 tablet by mouth daily at bedtime. 90 tablet 3 amLODIPine (NORVASC) 5 mg tablet Take 1 tablet by mouth once daily. 90 tablet 3 budesonide-formoterol (SYMBICORT) 160-4.5 mcg/actuation inhaler Inhale 2 Puffs as instructed two times a day. 1 Each 5 Ipratropium (ATROVENT HFA) 17 mcg/actuation inhaler Inhale 2 Puffs as instructed every 6 hours. 1 Each 3 lisinopril (ZESTRIL) 40 mg tablet Take 1 tablet by mouth once daily. 90 tablet 3 atorvastatin (LIPITOR) 10 mg tablet Take 1 tablet by mouth daily at bedtime. For cholesterol. 90 tablet 3 Cholecalciferol, Vitamin D3, 125 mcg (5,000 unit) cap Take 1 capsule by mouth once daily. 30 capsule 11 lansoprazole (PREVACID) 15 mg capsule Take 1 capsule by mouth once daily. 30 capsule 11 ondansetron (ZOFRAN) 4 mg tablet Take 1 tablet by mouth every 8 hours as needed for nausea/vomiting. 30 tablet 3 fluticasone (FLONASE) 50 mcg/actuation nasal spray Use 2 Sprays in each nostril once daily. Rinse mouth after use. 1 Each 11 Nebulizer Accessories mis 1 Each as directed. Nebulizer tubing and mouth piece. faxed to 3 Each 5 CPAP autoCPAP 5-15 cmH2O, mask, tubing, filters, heated humidity, lifetime supplies. Dx: TRINI 1 Device 0 Nebulizer 1 Each as needed. NEBULIZER TUBING AND SUPPLIES. DX: CHRONIC BRONCHITIS J41.1, WHEEZING R06.2. FAX TO [facility] [place] [phone] 1 Each 11 COMPOUNDED PRESCRIPTION Nebulizer for albuterol every fours as needed ICD: R06.2 1 Device 0 doxycycline (VIBRA-TABS) 100 mg tablet Take 1 tablet by mouth two times a day for 10 days. 20 tablet 0 predniSONE (DELTASONE) 20 mg tablet Take 2 tablets by mouth once daily for 5 days. 10 tablet 0 benzonatate (TESSALON PERLE) 100 mg capsule Take 2 capsules by mouth three times a day as needed. 30 capsule 0 No current facility-administered medications for this visit. PAST SURGICAL HISTORY Procedure Laterality Date COLONOSCOPY SCRN NOT HIGH RISK 09/13/2020 EGD 10/25/2020 L'SCOPE DX W/WO BRUSHINGS/WASHINGS 09/05/2022 Dr. Guadarrama LIG/TRNSXJ FLP TUBE ABDL/VAG APPR UNI/BI Tubal ligation LX REPAIR RECURRENT VENTRAL HERNIA 09/05/2022 open, w/ mesh. Dr. Guadarrama MYRINGOTOMY ASPIR&/EUSTACHIAN TUBE NFLTJ ANES Myringotomy/tubes NEUROPLASTY &/TRANSPOS MEDIAN NRV CARPAL TUNNE Bilateral 01/15/2019 Bilateral carpal tunnel release REDUCTION OF LARGE BREAST 04/23/2016 STEREOTACT BREAST BX EA LESION PC 09/30/2018 left stereotactic breast biopsy w/vacuum assisted core needle biopsy, specimen radiograph and marker placement FAMILY HISTORY Problem Relation Age of Onset Coronary Artery Disease Mother PE Asthma Mother Multiple Sclerosis Mother No Known Problems Father Ischemic Heart Disease Sister other (irregular heart beat) Sister Crohn's Disease Sister Heart disease Brother doesn't talk to him None Brother Stroke Maternal Grandmother Colon Cancer No Family History Anesthesia Problems No Family History Social History Tobacco Use Smoking status: Former Current packs/day: 0.00 Average packs/day: 1 pack/day for 35.8 years (35.8 ttl pk-yrs) Types: Cigarettes Start date: 05/29/1987 Quit date: 03/02/2023 Years since quittin.2 Smokeless tobacco: Never Vaping Use Vaping status: Never Used Substance Use Topics Alcohol use: No Drug use: No Objective BP 110/78 Pulse 80 Temp 36.9 C (98.5 F) (Tympanic) Resp 18 Wt (!) 140.5 kg (309 lb 11.9 oz) LMP 09/14/2013 SpO2 97% BMI 50.02 kg/m Physical Exam Vitals reviewed. Constitutional: Appearance: Normal appearance. HENT: Head: Normocephalic and atraumatic. Right Ear: Ear canal and external ear normal. Left Ear: Ear canal and external ear normal. Ears: Comments: Chronic tm perforations bilaterally Nose: Congestion present. Mouth/Throat: Mouth: Mucous membranes are moist. Pharynx: Oropharynx is clear. Cardiovascular: Rate and Rhythm: Normal rate and regular rhythm. Heart sounds: Normal heart sounds. Pulmonary: Effort: Pulmonary effort is normal. Breath sounds: Wheezing and rhonchi present. Skin: General: Skin is warm and dry. Neurological: Mental Status: She is alert. Assessment and Plan ASSESSMENT/PLAN: 1. Bronchitis - ICD9: 490, ICD10: J40 I will treat with prednisone and Tessalon. Will also treat with doxycycline as patient has chronic lung disease and is oxygen dependent. Patient can tolerate doxycycline hyclate, cannot tolerate doxycycline monohydrate so hyclate was sent. Follow-up with PCP if not improving. Patient agreeable. Yarely Galvan PA-C documented in this encounterSt. [facility] Instructions* Patient Instructions* Kathy Bustamante APRN.CNP - 04/30/2024 2:03 PM EST 1) Doxycyline 100 mg 2 x day for 10 days 2) Medrol taper for wheezing 3) Hydroxyzine 25 mg every 6 hours as needed for cough 4) Triamcinolone ointment topically 2 x day 5) Keep appt. With Deloris documented in this encounterSt. [facility]24 NoteHNO ID: [id number] Author: KATHY BUSTAMANTE APRN.CNP Service: ? Author Type: Clinical Nurse Specialist Type: Progress Notes Filed: 04/30/2024 14:05 Note Text: This is a 63 year old female who presents today with: Patient presents with: Derm Problem: Bilateral arms itching. Bactroban didn't make any difference. Feels warm burning sensation. HISTORY OF PRESENT ILLNESS: Santy Raza is a 63 year old female. Patient presents with: Derm Problem: Bilateral arms itching. Bactroban didn't make any difference. Feels warm burning sensation. For the last 6 months, she has been scratching herself in her sleep. Wakes up with blood everywhere. Hurts. Right arm with large area of redness and some swelling. Itchiness occurs when she gets too hot. No fever or chills. Only on arms up to where short sleeves begin. Pain between shoulder blades. PAST MEDICAL HISTORY: PAST MEDICAL HISTORY Diagnosis Date Allergic rhinitis, cause unspecified BMI 45.0-49.9, adult ([facility]) 08/27/2022 Essential hypertension, benign Hypothyroidism 09/26/2015 Mixed conductive and sensorineural hearing loss TRINI on CPAP Other anxiety states Perforated tympanic membrane 03/29/2011 S/P repair of ventral hernia 09/06/2022 Synovitis and tenosynovitis, unspecified Tobacco abuse 03/23/2012 PAST SURGICAL HISTORY Procedure Laterality Date COLONOSCOPY SCRN NOT HIGH RISK 09/13/2020 EGD 10/25/2020 L'SCOPE DX W/WO BRUSHINGS/WASHINGS 09/05/2022 Dr. Guadarrama LIG/TRNSXJ FLP TUBE ABDL/VAG APPR UNI/BI Tubal ligation LX REPAIR RECURRENT VENTRAL HERNIA 09/05/2022 open, w/ mesh. Dr. Guadarrama MYRINGOTOMY ASPIRAND/EUSTACHIAN TUBE NFLTJ ANES Myringotomy/tubes NEUROPLASTY AND/TRANSPOS MEDIAN NRV CARPAL TUNNE Bilateral 01/15/2019 Bilateral carpal tunnel release REDUCTION OF LARGE BREAST 04/23/2016 STEREOTACT BREAST BX EA LESION PC 09/30/2018 left stereotactic breast biopsy w/vacuum assisted core needle biopsy, specimen radiograph and marker placement ALLERGIES Doxycycline Monohydrate, Hctz [Amiloride-Hydrochlorothiazide], Levaquin [Levofloxacin], Meloxicam, and Peanuts MEDICATIONS Current Outpatient Medications Medication Sig mupirocin (BACTROBAN) 2 % ointment Apply 1 application to affected area three times a day for 10 days. HYDROcodone-acetaminophen (NORCO) 5-325 mg per tablet Take 1 tablet by mouth every 8 hours as needed for pain. From pain management. Aware to not use with xanax. benzonatate (TESSALON PERLES) 100 mg capsule Take 1-2 capsules by mouth three times a day as needed for cough. venlafaxine ER (EFFEXOR XR) 150 mg 24 hr capsule Take 1 capsule by mouth once daily. Start after taking 75 mg X 1 week. Stop the citalopram when starting this dose. loratadine (CLARITIN) 10 mg tablet Take 1 tablet by mouth once daily. buPROPion XL (WELLBUTRIN XL) 300 mg 24 hr tablet Take 1 tablet by mouth once daily. furosemide (LASIX) 20 mg tablet Take 1 tablet by mouth once daily. If you have increased swelling, okay to increase to 2 tablets daily for 2-3 days. Do not do more than once weekly. levothyroxine (LEVOXYL) 200 mcg tablet Take 1 tablet by mouth once daily. Take on empty stomach. For thyroid albuterol (PROVENTIL) 2.5 mg /3 mL (0.083 %) nebulizer solution Use 3 mL via nebulizer every 6 hours as needed for wheezing/shortness of breath. amitriptyline (ELAVIL) 25 mg tablet Take 1 tablet by mouth daily at bedtime. amLODIPine (NORVASC) 5 mg tablet Take 1 tablet by mouth once daily. budesonide-formoterol (SYMBICORT) 160-4.5 mcg/actuation inhaler Inhale 2 Puffs as instructed two times a day. Ipratropium (ATROVENT HFA) 17 mcg/actuation inhaler Inhale 2 Puffs as instructed every 6 hours. lisinopril (ZESTRIL) 40 mg tablet Take 1 tablet by mouth once daily. atorvastatin (LIPITOR) 10 mg tablet Take 1 tablet by mouth daily at bedtime. For cholesterol. Cholecalciferol, Vitamin D3, 125 mcg (5,000 unit) cap Take 1 capsule by mouth once daily. lansoprazole (PREVACID) 15 mg capsule Take 1 capsule by mouth once daily. ondansetron (ZOFRAN) 4 mg tablet Take 1 tablet by mouth every 8 hours as needed for nausea/vomiting. fluticasone (FLONASE) 50 mcg/actuation nasal spray Use 2 Sprays in each nostril once daily. Rinse mouth after use. cyclobenzaprine (FLEXERIL) 10 mg tablet Take 1 tablet by mouth three times a day as needed for muscle spasm. ofloxacin (FLOXIN) 0.3 % otic solution Use 5 Drops in both ears once daily. Nebulizer Accessories misc 1 Each as directed. Nebulizer tubing and mouth piece. faxed to CPAP autoCPAP 5-15 cmH2O, mask, tubing, filters, heated humidity, lifetime supplies. Dx: TRINI Nebulizer 1 Each as needed. NEBULIZER TUBING AND SUPPLIES. DX: CHRONIC BRONCHITIS J41.1, WHEEZING R06.2. FAX TO [employer] [phone] COMPOUNDED PRESCRIPTION Nebulizer for albuterol every fours as needed ICD: R06.2 No current facility-administered medications for t (more content not included)...[facility]11-15-2024 History of Present illness Narrative* Kathy Bustamante APRN.CONTENT MANAGEMENT CONSULTANT - 04/30/2024 1:46 PM EST This is a 63 year old female who presents today with: Patient presents with: Derm Problem: Bilateral arms itching. Bactroban didn't make any difference. Feels warm burning sensation. HISTORY OF PRESENT ILLNESS: Santy Raza is a 63 year old female. Patient presents with: Derm Problem: Bilateral arms itching. Bactroban didn't make any difference. Feels warm burning sensation. For the last 6 months, she has been scratching herself in her sleep. Wakes up with blood everywhere. Hurts. Right arm with large area of redness and some swelling. Itchiness occurs when she gets too hot. No fever or chills. Only on arms up to where short sleeves begin. Pain between shoulder blades. PAST MEDICAL HISTORY: PAST MEDICAL HISTORY Diagnosis Date Allergic rhinitis, cause unspecified BMI 45.0-49.9, adult ([facility]CC) 08/27/2022 Essential hypertension, benign Hypothyroidism 09/26/2015 Mixed conductive and sensorineural hearing loss TRINI on CPAP Other anxiety states Perforated tympanic membrane 03/29/2011 S/P repair of ventral hernia 09/06/2022 Synovitis and tenosynovitis, unspecified Tobacco abuse 03/23/2012 PAST SURGICAL HISTORY Procedure Laterality Date COLONOSCOPY SCRN NOT HIGH RISK 09/13/2020 EGD 10/25/2020 L'SCOPE DX W/WO BRUSHINGS/WASHINGS 09/05/2022 Dr. Guadarrama LIG/TRNSXJ FLP TUBE ABDL/VAG APPR UNI/BI Tubal ligation LX REPAIR RECURRENT VENTRAL HERNIA 09/05/2022 open, w/ mesh. Dr. Guadarrama MYRINGOTOMY ASPIR&/EUSTACHIAN TUBE NFLTJ ANES Myringotomy/tubes NEUROPLASTY &/TRANSPOS MEDIAN NRV CARPAL TUNNE Bilateral 01/15/2019 Bilateral carpal tunnel release REDUCTION OF LARGE BREAST 04/23/2016 STEREOTACT BREAST BX EA LESION PC 09/30/2018 left stereotactic breast biopsy w/vacuum assisted core needle biopsy, specimen radiograph and marker placement ALLERGIES Doxycycline Monohydrate, Hctz [Amiloride-Hydrochlorothiazide], Levaquin [Levofloxacin], Meloxicam, and Peanuts MEDICATIONS Current Outpatient Medications Medication Sig mupirocin (BACTROBAN) 2 % ointment Apply 1 application to affected area three times a day for 10 days. HYDROcodone-acetaminophen (NORCO) 5-325 mg per tablet Take 1 tablet by mouth every 8 hours as needed for pain. From pain management. Aware to not use with xanax. benzonatate (TESSALON PERLES) 100 mg capsule Take 1-2 capsules by mouth three times a day as neededfor cough. venlafaxine ER (EFFEXOR XR) 150 mg 24 hr capsule Take 1 capsule by mouth once daily. Start after taking 75 mg X 1 week. Stop the citalopram when starting this dose. loratadine (CLARITIN) 10 mg tablet Take 1 tablet by mouth once daily. buPROPion XL (WELLBUTRIN XL) 300 mg 24 hr tablet Take 1 tablet by mouth once daily. furosemide (LASIX) 20 mg tablet Take 1 tablet by mouth once daily. If you have increased swelling, okay to increase to 2 tablets daily for 2-3 days. Do not do more than once weekly. levothyroxine (LEVOXYL) 200 mcg tablet Take 1 tablet by mouth once daily. Take on empty stomach. For thyroid albuterol (PROVENTIL) 2.5 mg /3 mL (0.083 %) nebulizer solution Use 3 mL via nebulizer every 6 hours as needed for wheezing/shortness of breath. amitriptyline (ELAVIL) 25 mg tablet Take 1 tablet by mouth daily at bedtime. amLODIPine (NORVASC) 5 mg tablet Take 1 tablet by mouth once daily. budesonide-formoterol (SYMBICORT) 160-4.5 mcg/actuation inhaler Inhale 2 Puffs as instructed two times a day. Ipratropium (ATROVENT HFA) 17 mcg/actuation inhaler Inhale 2 Puffs as instructed every 6 hours. lisinopril (ZESTRIL) 40 mg tablet Take 1 tablet by mouth once daily. atorvastatin (LIPITOR) 10 mg tablet Take 1 tablet by mouth daily at bedtime. For cholesterol. Cholecalciferol, Vitamin D3, 125 mcg (5,000 unit) cap Take 1 capsule by mouth once daily. lansoprazole (PREVACID) 15 mg capsule Take 1 capsule by mouth once daily. ondansetron (ZOFRAN) 4 mg tablet Take 1 tablet by mouth every 8 hours as needed for nausea/vomiting. fluticasone (FLONASE) 50 mcg/actuation nasal spray Use 2 Sprays in each nostril once daily. Rinse mouth after use. cyclobenzaprine (FLEXERIL) 10 mg tablet Take 1 tablet by mouth three times a day as needed for muscle spasm. ofloxacin (FLOXIN) 0.3 % otic solution Use 5 Drops in both ears once daily. Nebulizer Accessories misc 1 Each as directed. Nebulizer tubing and mouth piece. faxed to CPAP [employer]CPAP 5-15 cmH2O, mask, tubing, filters, heated humidity, lifetime supplies. Dx: TRINI Nebulizer 1 Each as needed. NEBULIZER TUBING AND SUPPLIES. DX: CHRONIC BRONCHITIS J41.1, WHEEZING R06.2. FAX TO [employer] [phone] COMPOUNDED PRESCRIPTION Nebulizer for albuterol every fours as needed ICD: R06.2 No current facility-administered medications for this visit. FAMILY HISTORY Problem Relation Age of Onset Coronary Artery Disease Mother PE Asthma Mother Multiple Sclerosis Mother No Known Problems Father Ischemic Heart Disease Sister other (irregular heart beat) Sister Crohn's Disease Sister Heart disease Brother doesn't talk to him None Brother Stroke Maternal Grandmother Colon Cancer No Family History Anesthesia Problems No Family History Social History Tobacco Use Smoking status: Former Current packs/day: 0.00 Average packs/day: 1 pack/day for 35.8 years (35.8 ttl pk-yrs) Types: Cigarettes Start date: 05/29/1987 Quit date: 03/02/2023 Years since quittin.1 Smokeless tobacco: Never Vaping Use Vaping status: Never Used Substance Use Topics Alcohol use: No Drug use: No EXAM: BP 138/82 Pulse 88 Wt (!) 141.1 kg (311 lb 1.1 oz) LMP 09/14/2013 SpO2 97% BMI 50.23 kg/m PHYSICAL EXAM: Physical Exam Vitals reviewed. Constitutional: Appearance: She is obese. HENT: Head: Normocephalic. Cardiovascular: Rate and Rhythm: Normal rate and regular rhythm. Pulses: Normal pulses. Heart sounds: Normal heart sounds. Pulmonary: Effort: Pulmonary effort is normal. Breath sounds: Wheezing present. Comments: Bronchial wheezes Abdominal: General: Bowel sounds are normal. Palpations: Abdomen is soft. Tenderness: There is no abdominal tenderness. Musculoskeletal: Comments: Uses rollator to ambulate Skin: General: Skin is warm and dry. Comments: Many, many scabbed areas and open areas on entire left forarm and a few on right forearm. Right forearm with a large area of redness, slight edema, and heat Neurological: Mental Status: She is alert and oriented to person, place, and time. LABS: reviewed labs ASSESSMENT/PLAN: 1. Allergic contact dermatitis due to other agents - ICD9: 692.89, ICD10: L23.89 (primary diagnosis) Uncertain cause - TRIAMCINOLONE ACETONIDE 0.1 % TOPICAL CREAM - cover area when sleeping 2. Cellulitis of skin - ICD9: 682.9, ICD10: L03.90 - Begin treatment with doxycycline for 10 days - DOXYCYCLINE HYCLATE 100 MG TABLET 3. Urticaria - ICD9: 708.9, ICD10: L50.9 - Likely viral or allergic etiology discussed with patient - Follow up if symptoms persist or worsen. - HYDROXYZINE HCL 25 MG TABLET every 6 hours 4. Wheezing - ICD9: 786.07, ICD10: R06.2 Treat with doxy and medrol- acute bronchitis - METHYLPREDNISOLONE 4 MG TABLETS IN A DOSE PACK Discussed treatment plan and patient voices understanding. Patient's questions answered appropriately. Medications and potential side effects were discussed and patient voices understanding. Return to the office as scheduled or as needed for worsening/no improvement. Kathy Bustamante APRN.CNP documented in this encounterSt[facility] Telephone encounter Note * Telephone Encounter - KATHY BUSTAMANTE - 04/22/2024 2:03 PM EST Muiprocin [facility]11-[facility] Miscellaneous Notes* Telephone Encounter - KATHY BUSTAMANTE - 04/22/2024 2:03 PM EST Muiprocin filled documented in this encounterSt. [facility] History of Present illness Narrative* Deloris Chavez APRN.CNP - 04/19/2024 7:56 AM EST Images from the original note were not included. Santy Raza is a 63 year old female here for a Medicare wellness visit. Medicare Health Risk Assessment General Health Good Exercise: Minutes/Day Patient declined Exercise: Days/Week Patient declined Alcohol: Daily Use Never Alcohol: Drinks/Day Patient does not drink Alcohol: 6 or more drinks Never Feel off balance Yes --- uses walker. Concerns: Teeth/Dentures No Concerns: Sexual function No Troubled by feelings Anxious; Stressed; Irritable -- d/t chronic illness. On treatment. Frequency: Eating healthy diet Several days ADLs requiring help None of the above Safety precautions in home/vehicle Yes Smoke, vape, chews tobacco Yes, and I might quit Difficulty hearing Yes, I wear a hearing aid Difficulty seeing Yes - just got new glasses. Cannot drive at night. Current Providers Specialists: I have reviewed specialist-related care of the patient in the medical record. Eye doctor Hearing doctor Pain management Lung nodule clinic Medical/Family history review Reviewed and updated problem list, medical/surgical/family/social history, medications, and allergies. Opioid use review Opioid Medications (last 90 days) No data to display Anxiety/Depression screening PHQ-9 Score: 6 (Mild Depression) Recommendation: continuing current treatment plan and medication management Cognitive screening Cognitive screening reviewed and No further action needed (score 3-5). Functional Observation Was the patient's Timed Up & Go test unsteady or >= 12 seconds? No Advance Care Planning Patient did not wish or was not able to name a surrogate decision maker or provide an advance care plan Measurements LMP 09/14/2013 Vision Screening: Follows with optometry/ophthalmology Assessment/Plan Medicare annual wellness visit, subsequent (Z00.00) - Counseled on healthy diet and regular exercise - Fall avoidance information provided - Personalized prevention plan provided Additional Concerns The following concerns were also discussed with the patient: Lesions on the left arm. Was in urgent care. Started keflex and bactroban. Culture showed staph sensitive to keflex. Refers that this happens recurrently. Has appt with derm May 18. Needs referral. REVIEW OF SYSTEMS GENERAL: No weight loss, malaise or fevers/chills HEENT: Negative for frequent or significant headaches, worsening vision -- follows with eye doctor. NECK: Negative for lumps, goiter, pain and significant neck swelling RESPIRATORY: Negative for cough, hemoptysis, wheezing, dyspnea or shortness of breath. Gets SOB with exertion. Home O2. CARDIOVASCULAR: Negative for chest pain, or palpitations. Chronic LE swelling -- usually left. + orthopnea. GI: No nausea, vomiting, or diarrhea/constipation. No hematochezia/melena. No heartburn or reflux symptoms. : No history of dysuria, frequency or incontinence MUSCULOSKELETAL: chronic back pain -- follows with pain managements. SKIN: see above. ENDOCRINE: Negative for cold intolerance, polyuria, and goiter. Heat is not good. Always thirsty --dry mouth. NEURO: No history of headaches, syncope, paralysis, seizures or tremors PHYSICAL EXAM LMP 09/14/2013 GENERAL: well appearing, alert, in no acute distress CARDIOVASCULAR: regular rate and rhythm. No murmur, rubs or gallops. PULMONARY: clear to auscultation, no wheezing, rhonchi, or crackles EXTREMITY: chronic swelling. Skin: several superficial scabbed areas on the left forearm/elbow. ASSESSMENT/PLAN: 1. Skin lesion - ICD9: 709.9, ICD10: L98.9 (primary diagnosis) Continue bactroban. - CONSULT TO DERMATOLOGY 2. Class 3 severe obesity with body mass index (BMI) of 45.0 to 49.9 in adult, unspecified obesity type, unspecified whether serious comorbidity present (HCC) - ICD9: 278.01, V85.42, ICD10: E66.813, E66.01, Z68.42 Weight increasing and Stable - Behavioral intervention - CONSULT TO [facility] 3. Thrombocytopenia, unspecified (HCC) - ICD9: 287.5, ICD10: D69.6 Stable. 4. Mucopurulent chronic bronchitis (HCC) - ICD9: 491.1, ICD10: J41.1 Stable, continue per pulmonology. Discussed treatment plan and patient voices understanding. Patient's questions answered appropriately. Medications and potential side effects were discussed and patient voices understanding. Return to the office as scheduled or as needed for worsening/no improvement. Deloris Chavez APRN.KHURRAM documented in this encounterSt. [facility] Instructions* Patient Instructions* Deloris Chavez APRN.CNP - 04/19/2024 7:56 AM EST Screening schedule The following prevention plan is recommended: Covid-19 Vaccine( season) due on 04/19/2024 WHAT YOU CAN DO TO PREVENT FALLS Many falls can be prevented. By making some changes, you can lower your chances of falling. Four things YOU can do to prevent falls for you* and your caregiver 1. Begin a regular exercise program Exercise is one of the most important ways to lower your chances of falling. It makes you stronger and helps you feel better. Exercises that improve balance and coordination (like Chris Chi) are the most helpful. Lack of exercise leads to weakness and increases your chances of falling. Ask your doctor or health care provider about the best type of exercise program for you. 2. Have your health care provider review your medicines Have your doctor or pharmacist review all the medicines you take, even [id number] medicines. As you get older, the way medicines work in your body can change. Some medicines, or combinations of medicines, can make you sleepy or dizzy andcan cause you to fall. 3. Have your vision checked Have your eyes checked by an eye doctor at least once a year. You may be wearing the wrong glasses or have a condition like glaucoma or cataracts that limits your vision. Poor vision can increase your chances of falling. 4. Make your home safer About half of all falls happen at home. To make your home safer: Remove things you can trip over (like papers, books, clothes, and shoes) from stairs and places where you walk. Remove small throw rugs or use double-sided tape to keep the rugs from slipping. Keep items you use often in cabinets you can reach easily without using a step stool. Have grab bars put in next to your toilet and in the tub or shower. Use non-slip mats in the bathtub and on shower floors. Improve the lighting in your home. As you get older, you need brighter lights to see well. Hang light-weight curtains or shades to reduce glare. Have handrails and lights put in on all staircases. Wear shoes both inside and outside the house. Avoid going barefoot or wearing slippers. For more information, contact: Centers for Disease Control and Prevention www.cdc.gov/injury * This information may not apply if you have certain medical conditions. documented in this encounterSt. [facility] [facility] History of Present illness Narrative* Alexa Robb PA - 04/14/2024 11:11 AM EDT Images from the original note were not included. This note was created using [employer]. Subjective Santy Raza is a 63 year old female. HPI 63-year-old female presents for left arm rash. Patient has had a rash for the past several days. She states that she thought she may have gotten bit by something and then was scratching the arm. She has a lot of scabs. She states she wore sweater and it pulled off some of the scabs and she had some puslike drainage from the area. She states this has happened in the past in the left arm, so she has an appointment with dermatology. She denies any fevers. She has not been putting anything on the rash. No other complaint. PAST MEDICAL HISTORY Diagnosis Date Allergic rhinitis, cause unspecified BMI 45.0-49.9, adult (HCC) 08/27/2022 Essential hypertension, benign Hypothyroidism 09/26/2015 Mixed conductive and sensorineural hearing loss TRINI on CPAP Other anxiety states Perforated tympanic membrane 03/29/2011 S/P repair of ventral hernia 09/06/2022 Synovitis and tenosynovitis, unspecified Tobacco abuse 03/23/2012 PAST SURGICAL HISTORY Procedure Laterality Date COLONOSCOPY SCRN NOT HIGH RISK 09/13/2020 EGD 10/25/2020 L'SCOPE DX W/WO BRUSHINGS/WASHINGS 09/05/2022 Dr. Guadarrama LIG/TRNSXJ FLP TUBE ABDL/VAG APPR UNI/BI Tubal ligation LX REPAIR RECURRENT VENTRAL HERNIA 09/05/2022 open, w/ mesh. Dr. Guadarrama MYRINGOTOMY ASPIR&/EUSTACHIAN TUBE NFLTJ ANES Myringotomy/tubes NEUROPLASTY &/TRANSPOS MEDIAN NRV CARPAL TUNNE Bilateral 01/15/2019 Bilateral carpal tunnel release REDUCTION OF LARGE BREAST 04/23/2016 STEREOTACT BREAST BX EA LESION PC 09/30/2018 left stereotactic breast biopsy w/vacuum assisted core needle biopsy, specimen radiograph and marker placement ALLERGIES Doxycycline Monohydrate, Hctz [Amiloride-Hydrochlorothiazide], Levaquin [Levofloxacin], Meloxicam, and Peanuts MEDICATIONS benzonatate (TESSALON PERLES) 100 mg capsule Take 1-2 capsules by mouth three times a day as neededfor cough. venlafaxine ER (EFFEXOR XR) 150 mg 24 hr capsule Take 1 capsule by mouth once daily. Start after taking 75 mg X 1 week. Stop the citalopram when starting this dose. loratadine (CLARITIN) 10 mg tablet Take 1 tablet by mouth once daily. cyclobenzaprine (FLEXERIL) 10 mg tablet Take 1 tablet by mouth three times a day as needed for muscle spasm. venlafaxine ER (EFFEXOR XR) 75 mg 24 hr capsule Take one capsule daily X 1 week (take with citalopram 20 mg). buPROPion XL (WELLBUTRIN XL) 300 mg 24 hr tablet Take 1 tablet by mouth once daily. furosemide (LASIX) 20 mg tablet Take 1 tablet by mouth once daily. If you have increased swelling, okay to increase to 2 tablets daily for 2-3 days. Do not do more than once weekly. levothyroxine (LEVOXYL) 200 mcg tablet Take 1 tablet by mouth once daily. Take on empty stomach. For thyroid ofloxacin (FLOXIN) 0.3 % otic solution Use 5 Drops in both ears once daily. albuterol (PROVENTIL) 2.5 mg /3 mL (0.083 %) nebulizer solution Use 3 mL via nebulizer every 6 hours as needed for wheezing/shortness of breath. amitriptyline (ELAVIL) 25 mg tablet Take 1 tablet by mouth daily at bedtime. amLODIPine (NORVASC) 5 mg tablet Take 1 tablet by mouth once daily. budesonide-formoterol (SYMBICORT) 160-4.5 mcg/actuation inhaler Inhale 2 Puffs as instructed two times a day. Ipratropium (ATROVENT HFA) 17 mcg/actuation inhaler Inhale 2 Puffs as instructed every 6 hours. lisinopril (ZESTRIL) 40 mg tablet Take 1 tablet by mouth once daily. atorvastatin (LIPITOR) 10 mg tablet Take 1 tablet by mouth daily at bedtime. For cholesterol. Cholecalciferol, Vitamin D3, 125 mcg (5,000 unit) cap Take 1 capsule by mouth once daily. lansoprazole (PREVACID) 15 mg capsule Take 1 capsule by mouth once daily. ondansetron (ZOFRAN) 4 mg tablet Take 1 tablet by mouth every 8 hours as needed for nausea/vomiting. fluticasone (FLONASE) 50 mcg/actuation nasal spray Use 2 Sprays in each nostril once daily. Rinse mouth after use. Nebulizer [facility] Each as directed. Nebulizer tubing and mouth piece. faxed to [employer] 5-15 cmH2O, mask, tubing, filters, heated humidity, lifetime supplies. Dx: TRINI Nebulizer 1 Each as needed. NEBULIZER TUBING AND SUPPLIES. DX: CHRONIC BRONCHITIS J41.1, WHEEZING R06.2. FAX TO [facility] [place] [phone] COMPOUNDED PRESCRIPTION Nebulizer for albuterol every fours as needed ICD: R06.2 mupirocin (BACTROBAN) 2 % ointment Apply to affected area three times a day for 7 days. cephALEXin (KEFLEX) 500 mg capsule Take 1 capsule by mouth four times daily for 5 days. citalopram (CELEXA) 40 mg tablet Take 1 tablet by mouth once daily. dexAMETHasone (DEXASOL) 0.1 % ophthalmic solution Use 1 Drop in both eyes every 12 hours as needed.Instill 2 drops into affected ear twice daily as needed. (Patient not taking: Reported on 04/14/2024) FAMILY HISTORY Problem Relation Age of Onset No Known Problems Father Coronary Artery Disease Mother PE Asthma Mother Multiple Sclerosis Mother Coronary Artery Disease Brother None Brother Coronary Artery Disease Sister Colon Cancer No Family History Anesthesia Problems No Family History Social History Tobacco Use Smoking status: Former Current packs/day: 0.00 Average packs/day: 1 pack/day for 35.8 years (35.8 ttl pk-yrs) Types: Cigarettes Start date: 05/29/1987 Quit date: 03/02/2023 Years since quittin.1 Smokeless tobacco: Never Vaping Use Vaping status: Never Used Substance Use Topics Alcohol use: No Drug use: No Review of Systems Constitutional: Negative for chills and fever. HENT: Negative for congestion, ear pain and sore throat. Respiratory: Negative for cough and shortness of breath. Cardiovascular: Negative for chest pain. Gastrointestinal: Negative for diarrhea and vomiting. Skin: Positive for rash. Objective BP 120/78 Pulse 96 Temp 36.8 C (98.3 F) Resp 18 Wt (!) 139.8 kg (308 lb 3.3 oz) LMP 09/14/2013 SpO2 95% BMI 49.77 kg/m Physical Exam Vitals and nursing note reviewed. Constitutional: General: She is not in acute distress. Appearance: Normal appearance. She is not toxic-appearing. HENT: Nose: Nose normal. Mouth/Throat: Mouth: Mucous membranes are moist. Eyes: Conjunctiva/sclera: Conjunctivae normal. Cardiovascular: Rate and Rhythm: Normal rate and regular rhythm. Pulmonary: Effort: Pulmonary effort is normal. Breath sounds: Normal breath sounds. Skin: General: Skin is warm and dry. Findings: Rash present. Comments: Scabbing rash noted on dorsum of left arm. She does have some mild surrounding erythema around the scabs. Some have yellow centers. No abscesses or drainage. No lymphatic streaking. Normal sensation left upper extremity. No rash anywhere else. Neurological: Mental Status: She is alert. Assessment and Plan ASSESSMENT/PLAN: 1. Rash - ICD9: 782.1, ICD10: R21 (primary diagnosis) - ABSCESS AND WOUND CULTURE WITH GRAM STAIN 2. Skin infection - ICD9: 686.9, ICD10: L08.9 - Begin treatment with Cephalaxin (Keflex) -Rx for mupirocin - No lymphangetic streaking, this was defined for patient to watch for and to seek medical care immediately if appears - ABSCESS AND WOUND CULTURE WITH GRAM STAIN Diagnosis and treatment plan were discussed and questions were answered to the patient's satisfaction. Pt acknowledged understanding of concepts and follow up plan. Specific signs and symptoms that would indicate the need for higher level of care were discussed in detail warranting prompt ER evaluation. PRABHA Fox documented in this encounterSt. [facility] [facility] History of Present illness Narrative* Mary Triana MA - 03/16/2024 12:48 PM EDT POPULATION HEALTH NAVIGATION OUTREACH Action/FYI [facility] Spoke to patient and scheduled Medicare Wellness Exam. Reason for Outreach Care Gap/HCC or Scheduling Wellness Visits Care Gaps due: Medicare Annual Wellness Visit Patient Contacted: Spoke to patient/parent/or legal guardian Patient identified by name and : Yes Care Gap/HCC/Scheduling Wellness actions taken: Patient scheduled/pended orders: Medicare Annual Wellness Visit 04/05/[address] [facility] with DELORIS CHAVEZ [facility] GAP CLOSURE [facility] related Navigation Signature: Mary Triana MA March 16, 2024 12:48 PM documented in this encounterSt. [facility] [facility]09[facility] Telephone encounter Note * Telephone Encounter - Jose Summers LPN - 03/15/2024 11:04 AM EDT Prescription Refill Information The patient has been identified by name and date of : Yes Caregiver verified no other encounters exist for this prescription request: Yes Caregiver confirmed with patient/requestor that no other refills are due, in the near future, with this provider at this time: Yes The last office visit in the department: 02/25/24 Does the patient have a future office visit with this provider/department: Yes, 03/22/24 Requested Prescriptions Pending Prescriptions Disp Refills benzonatate (TESSALON PERLES) 100 mg capsule 40 capsule 1 Sig: Take 1-2 capsules by mouth three times a day as needed for cough. Jose Summers LPN March 15, 2024 11:[address] [facility]-30-[facility]24 Miscellaneous Notes* Telephone Encounter - Jose Summers LPN - 03/15/2024 11:04 AM EDT Prescription Refill Information The patient has been identified by name and date of : Yes Caregiver verified no other encounters exist for this prescription request: Yes Caregiver confirmed with patient/requestor that no other refills are due, in the near future, with this provider at this time: Yes The last office visit in the department: 02/25/24 Does the patient have a future office visit with this provider/department: Yes, 03/22/24 Requested Prescriptions Pending Prescriptions Disp Refills benzonatate (TESSALON PERLES) 100 mg capsule 40 capsule 1 Sig: Take 1-2 capsules by mouth three times a day as needed for cough. Jose Summers LPN March 15, 2024 11:15 AM documented in this encounterSt. [facility] Telephone encounter Note * Telephone Encounter - Ramona Nelson LPN - 03/11/2024 2:25 PM EDT Prescription Refill Information The patient has been identified by name and date of : Yes Caregiver verified no other encounters exist for this prescription request: Yes Caregiver confirmed with patient/requestor that no other refills are due, in the near future, with this provider at this time: Yes The last office visit in the department: 02/25/24 Does the patient have a future office visit with this provider/department: Yes 03/22/24 Requested Prescriptions Pending Prescriptions Disp Refills venlafaxine ER (EFFEXOR XR) 150 mg 24 hr capsule 90 capsule 1 Sig: Take 1 capsule by mouth once daily. Start after taking 75 mg X 1 week. Stop the citalopram when starting this dose. Ramona Nelson LPN March 11, 2024 2:[address] [facility] Miscellaneous Notes* Telephone Encounter - Ramona Nelson LPN - 03/11/2024 2:25 PM EDT Prescription Refill Information The patient has been identified by name and date of : Yes Caregiver verified no other encounters exist for this prescription request: Yes Caregiver confirmed with patient/requestor that no other refills are due, in the near future, with this provider at this time: Yes The last office visit in the department: 02/25/24 Does the patient have a future office visit with this provider/department: Yes 03/22/24 Requested Prescriptions Pending Prescriptions Disp Refills venlafaxine ER (EFFEXOR XR) 150 mg 24 hr capsule 90 capsule 1 Sig: Take 1 capsule by mouth once daily. Start after taking 75 mg X 1 week. Stop the citalopram when starting this dose. Ramona Nelson LPN March 11, 2024 2:26 PM documented in this encounterSt. [facility] [facility] Telephone encounter Note * Telephone Encounter - Ramona Nelson LPN - 03/11/2024 7:26 AM EDT Prescription Refill Information The patient has been identified by name and date of : Yes Caregiver verified no other encounters exist for this prescription request: Yes Caregiver confirmed with patient/requestor that no other refills are due, in the near future, with this provider at this time: Yes The last office visit in the department: 02/25/24 Does the patient have a future office visit with this provider/department: Yes 03/22/24 Requested Prescriptions Pending Prescriptions Disp Refills ALPRAZolam (XANAX) 1 mg tablet 60 tablet 0 Sig: Take 1 tablet by mouth two times a day as needed for up to 30 days. Ramona Nelson LPN March 11, 2024 7:[address] [facility] Miscellaneous Notes* Telephone Encounter - Ramona Nelson LPN - 03/11/2024 7:26 AM EDT Prescription Refill Information The patient has been identified by name and date of : Yes Caregiver verified no other encounters exist for this prescription request: Yes Caregiver confirmed with patient/requestor that no other refills are due, in the near future, with this provider at this time: Yes The last office visit in the department: 02/25/24 Does the patient have a future office visit with this provider/department: Yes 03/22/24 Requested Prescriptions Pending Prescriptions Disp Refills ALPRAZolam (XANAX) 1 mg tablet 60 tablet 0 Sig: Take 1 tablet by mouth two times a day as needed for up to 30 days. Ramona Nelson LPN March 11, 2024 7:27 AM documented in this encounter[facility] Tele[facility] encounter Note * Telephone Encounter - Shanta Johnston MA - 03/01/2024 10:33 AM EDT Prescription Refill Information The patient has been identified by name and date of : Yes Caregiver verified no other encounters exist for this prescription request: Yes Caregiver confirmed with patient/requestor that no other refills are due, in the near future, with this provider at this time: Yes The last office visit in the department: 02/25/24 Does the patient have a future office visit with this provider/department: Yes 03/22/24 Requested Prescriptions Pending Prescriptions Disp Refills loratadine (CLARITIN) 10 mg tablet 30 tablet 11 Sig: Take 1 tablet by mouth once daily. Shanta Johnston MA March 01, 2024 10:[address] [facility]09-16-2024 Miscellaneous Notes* Telephone Encounter - Shanta Johnston MA - 03/01/2024 10:33 AM EDT Prescription Refill Information The patient has been identified by name and date of : Yes Caregiver verified no other encounters exist for this prescription request: Yes Caregiver confirmed with patient/requestor that no other refills are due, in the near future, with this provider at this time: Yes The last office visit in the department: 02/25/24 Does the patient have a future office visit with this provider/department: Yes 03/22/24 Requested Prescriptions Pending Prescriptions Disp Refills loratadine (CLARITIN) 10 mg tablet 30 tablet 11 Sig: Take 1 tablet by mouth once daily. Shanta Johnston MA March 01, 2024 10:34 AM documented in this encounterSt. [facility] Telephone encounter Note * Telephone Encounter - Jose Summers LPN - 02/25/2024 9:12 AM EDT Pt notified. Jose Summers LPN [facility]-11-2024 Miscellaneous Notes* Telephone Encounter - Jose Summers LPN - 02/25/2024 9:12 AM EDT Pt notified. Jose Summers LPN * Telephone Encounter - Deloris Chavez APRN.KHURRAM - 02/25/2024 9:00 AM EDT Script sent. Can please let patient know. * Telephone Encounter - Rebekah Pizarro LPN - 02/25/2024 8:39 AM EDT Patient forgot to show provider while at the appt, but she thinks she has thrush again, s/s x4 dayswhite tongue, cracking. Asking if RX can be called to [facility] or does she need to come back into the office. Please advise. Rebekah Pizarro LPN documented in this encounterSt. [facility] Telephone encounter Note * Telephone Encounter - Deloris Chavez APRN.KHURRAM - 02/25/2024 9:00 AM EDT Script sent. Can please let patient know. [facility] Telephone encounter Note* Telephone Encounter - Rebekah Pizarro LPN - 02/25/2024 8:39 AM EDT Patient forgot to show provider while at the appt, but she thinks she has thrush again, s/s x4 dayswhite tongue, cracking. Asking if RX can be called to [facility] or does she need to come back into the office. Please advise. Rebekah Pizarro LPN [facility]-11-2024 Instructions* Patient Instructions* Deloris Chavez APRN.KHURRAM - 02/25/2024 8:21 AM EDT Start the prednisone burst. Do not take other antiinflammatories while on the ibuprofen. You can increase the cyclobenzaprine to 10 mg, but this may cause fatigue. Let us know if no better/worsening. If doing well with the new medication; you can cancel appt next month and reschedule in three months. documented in this encounterSt. [facility] History of Present illness Narrative* Deloris Chavez APRN.KHURRAM - 02/25/2024 7:49 AM EDT This is a 63 year old female who presents today with: Patient presents with: ER F/U HISTORY OF PRESENT ILLNESS: Santy Raza is a 63 year old female. Patient presents with: ER F/U Woke up or Friday with a really stiff neck. Went to [facility] on 02/23/24. Refers that the day goes on, started affecting more of the shoulder and as it progressed moved downthe left upper arm. No specific injury. She went to the ER. She was discharged with lidocaine patches and a cyclobenzaprine 5 mg three times daily. She reports medications really do not help. She did try tramadol, which didn't help much. She has been taking ibuprofen. Has tried florinda reed and biofreeze on her arm. Able to do tox screen today. Note that she did take a tramadol for her neck and was in the ER and had pain medication and valium. She is doing well with transition from citalopram to effexor. Refers that she already has noticed an improvement in her symptoms and is less withdrawn. No problems with the new medication. PAST MEDICAL HISTORY: PAST MEDICAL HISTORY No date: Allergic rhinitis, cause unspecified 08/27/2022: BMI 45.0-49.9, adult (HCC) No date: Essential hypertension, benign 09/26/2015: Hypothyroidism No date: Mixed conductive and sensorineural hearing loss No date: TRINI on CPAP No date: Other anxiety states 03/29/2011: Perforated tympanic membrane 09/06/2022: S/P repair of ventral hernia No date: Synovitis and tenosynovitis, unspecified 03/23/2012: Tobacco abuse PAST SURGICAL HISTORY 09/13/2020: COLONOSCOPY SCRN NOT HIGH RISK Comment: 10/25/2020: EGD Comment: 09/05/2022: L'SCOPE DX W/WO BRUSHINGS/WASHINGS Comment: Dr. Guadarrama No date: LIG/TRNSXJ FLP TUBE ABDL/VAG APPR UNI/BI Comment: Tubal ligation 09/05/2022: LX REPAIR RECURRENT VENTRAL HERNIA Comment: open, w/ mesh. Dr. Guadarrama No date: MYRINGOTOMY ASPIR&/EUSTACHIAN TUBE NFLTJ ANES Comment: Myringotomy/tubes 01/15/2019: NEUROPLASTY &/TRANSPOS MEDIAN NRV CARPAL TUNNE; Bilateral Comment: Bilateral carpal tunnel release 04/23/2016: REDUCTION OF LARGE BREAST 09/30/2018: STEREOTACT BREAST BX EA LESION PC Comment: left stereotactic breast biopsy w/vacuum assisted core needle biopsy, specimen radiograph and marker placement ALLERGIES Doxycycline Monohydrate, Hctz [Amiloride-Hydrochlorothiazide], Levaquin [Levofloxacin], Meloxicam, and Peanuts MEDICATIONS Current Outpatient Medications Medication Sig venlafaxine ER (EFFEXOR XR) 75 mg 24 hr capsule Take one capsule daily X 1 week (take with citalopram 20 mg). venlafaxine ER (EFFEXOR XR) 150 mg 24 hr capsule Take 1 capsule by mouth once daily. Start after taking 75 mg X 1 week. Stop the citalopram when starting this dose. citalopram (CELEXA) 40 mg tablet Take 1 tablet by mouth once daily. ALPRAZolam (XANAX) 1 mg tablet Take 1 tablet by mouth two times a day as needed for up to 30 days. buPROPion XL (WELLBUTRIN XL) 300 mg 24 hr tablet Take 1 tablet by mouth once daily. furosemide (LASIX) 20 mg tablet Take 1 tablet by mouth once daily. If you have increased swelling, okay to increase to 2 tablets daily for 2-3 days. Do not do more than once weekly. levothyroxine (LEVOXYL) 200 mcg tablet Take 1 tablet by mouth once daily. Take on empty stomach. For thyroid ofloxacin (FLOXIN) 0.3 % otic solution Use 5 Drops in both ears once daily. albuterol (PROVENTIL) 2.5 mg /3 mL (0.083 %) nebulizer solution Use 3 mL via nebulizer every 6 hours as needed for wheezing/shortness of breath. amitriptyline (ELAVIL) 25 mg tablet Take 1 tablet by mouth daily at bedtime. amLODIPine (NORVASC) 5 mg tablet Take 1 tablet by mouth once daily. budesonide-formoterol (SYMBICORT) 160-4.5 mcg/actuation inhaler Inhale 2 Puffs as instructed two times a day. Ipratropium (ATROVENT HFA) 17 mcg/actuation inhaler Inhale 2 Puffs as instructed every 6 hours. lisinopril (ZESTRIL) 40 mg tablet Take 1 tablet by mouth once daily. atorvastatin (LIPITOR) 10 mg tablet Take 1 tablet by mouth daily at bedtime. For cholesterol. benzonatate (TESSALON PERLES) 100 mg capsule Take 1-2 capsules by mouth three times a day as neededfor cough. Cholecalciferol, Vitamin D3, 125 mcg (5,000 unit) cap Take 1 capsule by mouth once daily. lansoprazole (PREVACID) 15 mg capsule Take 1 capsule by mouth once daily. ondansetron (ZOFRAN) 4 mg tablet Take 1 tablet by mouth every 8 hours as needed for nausea/vomiting. loratadine (CLARITIN) 10 mg tablet Take 1 tablet by mouth once daily. fluticasone (FLONASE) 50 mcg/actuation nasal spray Use 2 Sprays in each nostril once daily. Rinse mouth after use. Nebulizer Accessories misc 1 Each as directed. Nebulizer tubing and mouth piece. faxed to dexAMETHasone (DEXASOL) 0.1 % ophthalmic solution Use 1 Drop in both eyes every 12 hours as needed.Instill 2 drops into affected ear twice daily as needed. CPAP autoCPAP 5-15 cmH2O, mask, tubing, filters, heated humidity, lifetime supplies. Dx: TRINI Nebulizer 1 Each as needed. NEBULIZER TUBING AND SUPPLIES. DX: CHRONIC BRONCHITIS J41.1, WHEEZING R06.2. FAX TO [employer] [phone] COMPOUNDED PRESCRIPTION Nebulizer for albuterol every fours as needed ICD: R06.2 No current facility-administered medications for this visit. FAMILY HISTORY Problem Relation Age of Onset No Known Problems Father Coronary Artery Disease Mother PE Asthma Mother Multiple Sclerosis Mother Coronary Artery Disease Brother None Brother Coronary Artery Disease Sister Colon Cancer No Family History Anesthesia Problems No Family History Social History Tobacco Use Smoking status: Former Current packs/day: 0.00 Average packs/day: 1 pack/day for 35.8 years (35.8 ttl pk-yrs) Types: Cigarettes Start date: 05/29/1987 Quit date: 03/02/2023 Years since quittin.9 Smokeless tobacco: Never Vaping Use Vaping status: Never Used Substance Use Topics Alcohol use: No Drug use: No EXAM: BP 124/80 (BP Site: Left Arm, BP Position: Sitting, BP Cuff Size: Large Adult) Pulse 70 Temp 36.6 C (97.9 F) Resp 16 LMP 09/14/2013 SpO2 95% PHYSICAL EXAM: General Appearance: Well appearing, alert, in no acute distress, well-hydrated, well nourished.. Skin: Skin color, texture, turgor normal, no suspicious rashes or lesions. Head: Normocephalic, no masses, lesions, tenderness or abnormalities. Eyes: Anicteric sclera. Extraocular movements are intact. Neck: Supple, no adenopathy; thyroid symmetric, normal size, no bruits. Back: some discomfort in the left upper trap out to the left deltoid. Lungs: Lungs clear to auscultation. No wheezing, rhonchi, rales.. Heart: RRR without murmur, gallop, or rubs. No ectopy. Neurologic: Gait normal with walker. ASSESSMENT/PLAN: 1. Neck pain - ICD9: 723.1, ICD10: M54.2 (primary diagnosis) Will start prednisone. Increase cyclobenzaprine. Continue ice and topicals. - PREDNISONE 20 MG TABLET - CYCLOBENZAPRINE 10 MG TABLET 2. Acute pain of left shoulder - ICD9: 719.41, ICD10: M25.512 Likely from neck strain above. - PREDNISONE 20 MG TABLET - CYCLOBENZAPRINE 10 MG TABLET 3. Medication management - ICD9: V58.69, ICD10: Z79.899 Note that she will also have tramadol and valium in system from recent er visit. - TOXICOLOGY SCREEN, ROUTINE URINE - PAIN PANEL, UR QUANT - PAIN PANEL, UR QUANT - SPECIMEN VALIDITY, URINE - BENZO CONFIRM, URINE - BENZO CONFIRM, URINE 4. Depression, recurrent (HCC) - ICD9: 296.30, ICD10: F33.9 Doing better with the effexor. If she is still doing well, she may cancel the upcoming recheck next month and reschedule out for 3months. Discussed treatment plan and patient voices understanding. Patient's questions answered appropriately. Medications and potential side effects were discussed and patient voices understanding. Return to the office as scheduled or as needed for worsening/no improvement. Deloris Chavez APRN.CONTENT MANAGEMENT CONSULTANT documented in this encounterSt. [facility] Hospital Discharge instructions Patient Education 02/23/2024 11:18:25 Shoulder Impingement Syndrome Shoulder Impingement Syndrome The rotator cuff is a group of muscles and tendons that surround the shoulder joint. These muscles and tendons hold the arm in its joint. They help the shoulder move. The rotator cuff muscles and tendons can become irritated from repeated rubbing against the shoulder bone. This is called shoulder impingement syndrome or rotator cuff tendonitis. If your case is mild, you may only need to rest the shoulder and then do certain exercises to strengthen the muscles. You can also take anti-inflammatory medicines. Steroid injections into the shoulder can ease inflammation. But you can have only a limited number of these. If the condition gets worse, your shoulder muscles may become thin and weak. This can lead to a rotator cuff tear. Symptoms of shoulder impingement syndrome may include: Shoulder pain that gets worse when you raise your arm overhead Weakness of the shoulder muscles when you use your arm overhead Popping and clicking when you move your shoulder Shoulder pain that wakes you up at night, especially when you sleep on the affected shoulder Sudden pain in your shoulder when you lift or reach Home care Follow these tips to take care of yourself at home: Avoid activities that make your pain worse. These include raising your arms overhead, repeating thesame motion over and over, or lifting heavy objects. Don t hold your arm in one position for a long time. Keep it moving. Put an ice pack on the sore area for 20 minutes every 1 to 2 hours for the first day. You can make an ice pack by putting ice cubes in a plastic bag. Wrap the bag in a towel before putting it on yourshoulder. A frozen bag of peas or something similar can also be used as an ice pack. Use the ice packs 3 to 4 times a day for the next 2 days. Continue using the ice to relieve of pain and swelling as needed. You may take acetaminophen or ibuprofen to control pain, unless another medicine was prescribed. Ifprednisone was prescribed, don t take anti-inflammatory medicines. If you have chronic liver or kidney disease or ever had a stomach ulcer or gastrointestinal bleeding, talk with your doctor before using these medicines. After your symptoms ease, you may get physical therapy or start a home exercise program. This can strengthen your shoulder muscles and help your range of motion. Talk with your doctor about what is best for your condition. Follow-up care Follow up with your healthcare provider, or as advised. When to seek medical advice Call your healthcare provider right away if any of these occur: Shoulder pain that gets worse and wakes you up at night Your shoulder or arm swells Numbness, tingling, or pain that travels down the arm to the hand Loss of shoulder strength Fever or chills [phone] [employer]. [address] [place] [id number]. All rights reserved. This information is not intended as a substitute for professional medical care. Always follow yourhealthcare professional's instructions. Follow Up Care 02/23/2024 10:52:25 With:DELORIS CHAVEZ Address: [address] [place] [phone] When:2-4 days [facility] 09-09-2024 Note Discharge Instructions Thank you for allowing [facility] to assist you with your healthcare needs. The following is importantdischarge information regarding your hospital visit. Diagnosis from Today's Visit Left arm pain Shoulder impingement syndrome What to Do Next Instructions from Your Care Team Discharge Return to Work, School, or Sports (Return to Work, School, or Sports) - Ordered -- 02/24/24, May return to: work, 02/23/24 11:18:00 EDT Post Acute Orders No qualifying data available. You Need to Schedule the Following Appointments Follow Up with DELORIS CHAVEZ When:Within 2-4 days Where:[address] [place] [phone] Allergies Levaquin Peanuts itching amiloride-hydrochlorothiazide itching doxycycline meloxicam swelling, rash, itching Medications Please ask your primary doctor or pharmacist before taking any other medication not listed, including over the counter drugs, herbal medications, vitamins and or supplements as they may interact withyour home medications. What How Much When Instructions Last Dose New cyclobenzaprine (cyclobenzaprine 5 mg oral tablet) 1 tab(s) by mouth Three (3) times a day Duration: 5 Days Printed Prescription New lidocaine topical (lidocaine 5% topical patch) 1 patch(es) Topical Once a day Duration: 7 Days remove patches after 12 hours Printed Prescription Unchanged albuterol (albuterol 2.5 mg/ 3 mL (0.083%) inhalation solution) 3 Milliliter by inhalation Every 6 hours as needed for for wheezing Unchanged amitriptyline (amitriptyline 25 mg oral tablet) 1 tab(s) by mouth Daily at bedtime Unchanged amLODIPine (amLODIPine 5 mg oral tablet) 1 tab(s) by mouth Once a day Unchanged atorvastatin (atorvastatin 10 mg oral tablet) 1 tab(s) by mouth Once a day Unchanged baclofen (baclofen 10 mg oral tablet) 0.5 tab(s) by mouth Two (2) times a day as needed for Spasm Unchanged benzonatate (benzonatate 100 mg oral capsule) 1 cap by mouth Three (3) times a day as needed for as needed for cough Duration: 7 Days Unchanged bifidobacterium infantis (Align 4 mg oral capsule) 1 cap by mouth Every day Unchanged budesonide-formoterol (Symbicort 160 mcg-4.5 mcg/ inh Inhaler) 2 puff(s) by inhalation Two (2) times a day Unchanged buPROPion (Wellbutrin XL 150 mg/ 24 hours oral tablet, extended release) 1 tab(s) by mouth Every 24 hours Unchanged cholecalciferol (cholecalciferol 125 mcg (5000 intl units) oral capsule) 1 cap by mouth Once a day Unchanged ciprofloxacin-dexamethasone otic (Ciprodex 0.3%-0.1% otic suspension) 2 Drops Both ears Two (2) times a day as needed for Control symptoms Unchanged citalopram (citalopram 40 mg oral tablet) 1 tab(s) by mouth Once a day Unchanged fluticasone nasal (fluticasone 50 mcg/ inh NASAL spray) 1 spray(s) each nostril Two (2) times a day as needed for Nasal congestion Unchanged furosemide (furosemide 20 mg oral tablet) 1 tab(s) by mouth Once a day Unchanged ipratropium (Atrovent HFA 17 mcg/ inh inhalation aerosol) 2 puff(s) by inhalation Four (4) times a day Unchanged lansoprazole (lansoprazole 15 mg oral delayed release capsule) 1 cap by mouth Once a day Unchanged levothyroxine (levothyroxine 200 mcg (0.2 mg) oral tablet) 1 tab(s) by mouth Once a day Unchanged lisinopril (lisinopril 40 mg oral tablet) 1 tab(s) by mouth Once a day Unchanged loratadine (loratadine 10 mg oral capsule) 1 cap by mouth Once a day Unchanged Misc Medication See instructions Unchanged ondansetron (ondansetron 4 mg oral tablet) 1 tab(s) by mouth Every 8 hours as needed for Nausea/Vomiting Unchanged sacrosidase (Sucraid 8500 intl units/ mL oral solution) Please take this list to your next doctor s visit. Bring all medications you take, including over the counter medications, herbals and other supplements with you to your doctor s visit. Patients and families are reminded to discard old lists and to update any records with all medication providers or retail pharmacies. Medication Leaflets lidocaine topical (LYE sheikh powers TOP i lisa) AneCream, Bactine, Glydo, Lidoderm, LidoRx, Medi-Quik [place], RadiaGuard, RectiCare, Regenecare FAN [place], Solarcaine Cool Aloe What is the most important information I should know about lidocaine topical? An overdose of numbing medicine can cause fatal side effects if too much of the medicine is absorbed through your skin. Do not use large amounts of lidocaine topical, or cover treated skin areas with a bandage or plastic wrap without medical advice. Keep both used and unused lidocaine skin patches out of the reach of children or pets. The amount of lidocaine in the skin patches could be harmful to a child or pet who accidentally sucks on or swallows the patch. What is lidocaine topical? Lidocaine is a local anesthetic (numbing medication). There are many brands and forms of lidocaine available. Not all brands are listed on this leaflet. Lidocaine topical (for use on the skin) is used to reduce pain or discomfort caused by skin irritations such as sunburn, insect bites, poison shasta, poison oak, poison sumac, and minor cuts, scratches,or reyes. Lidocaine topical is also used to treat rectal discomfort caused by hemorrhoids. Lidocaine intradermal device can be used in minor medical procedures such as venipuncture or peripheral intravenous cannulation. Lidocaine topical may also be used for purposes not listed in this medication guide. What should I discuss with my healthcare provider before using lidocaine topical? You should not use lidocaine topical if you are allergic to any type of numbing medicine. Fatal overdoses have occurred when numbing medicines were used without the advice of a medical doctor (such as during a cosmetic procedure like laser hair removal). However, overdose has also occurred in women treated with a numbing medicine before having a mammography. Be aware that many cosmetic procedures are performed without a medical doctor present. Tell your doctor if you have ever had: a blood cell disorder called methemoglobinemia (in you or a family member); liver disease; or if you take a heart rhythm medicine. Tell your doctor if you are or . If you apply lidocaine topical to your chest, avoid areas that may come into contact with the baby's mouth. How should I use lidocaine topical? Use this medicine exactly as directed on the label, or as it has been prescribed by your doctor. Donot apply this medicine in larger amounts than recommended. Improper use of lidocaine topical may result in . Lidocaine topical comes in many different forms (gel, spray, cream, lotion, ointment, liquid, skin patch, and others). Do not take by mouth. Topical medicine is for use only on the skin. If this medicine gets in your eyes, nose, mouth, rectum, or vagina, rinse with water. Read and carefully follow any Instructions for Use provided with your medicine. Ask your doctor or pharmacist if you do not understand these instructions. Use the smallest amount of medicine needed to numb the skin or relieve pain. Your body may absorb too much of this medicine if you use too much, if you apply it over large skin areas, or if you applyheat, bandages, or plastic wrap to treated skin areas. Skin that is cut or irritated may also absorb more topical medication than healthy skin. Do not apply this medicine to swollen skin areas or deep puncture wounds. Avoid using the medicine on skin that is raw or blistered, such as a severe burn or abrasion. Do not cover treated skin unless your doctor has told you to. Lidocaine topical may be applied with your finger tips or a cotton swab. Lidocaine intradermal device is applied by a healthcare provider. Store at room temperature away from moisture and heat. Keep both used and unused lidocaine topical skin patches out of the reach of children or pets. The amount of lidocaine in the skin patches could be harmful to a child or pet who accidentally sucks onor swallows the patch. Seek emergency medical attention if this happens. What happens if I miss a dose? Since lidocaine topical is used when needed, you may not be on a dosing schedule. Skip any missed dose if it's almost time for your next dose. Do not use two doses at one time. What happens if I overdose? Seek emergency medical attention or call the Poison Help line at . An overdose of numbing medicine can cause fatal side effects if too much of the medicine is absorbed through your skinand into your blood. Overdose symptoms may include uneven heartbeats, seizure (convulsions), slowed breathing, coma, or respiratory failure (breathing stops). Lidocaine applied to the skin is not likely to cause an overdose unless you apply more than the recommended dose. What should I avoid while using lidocaine topical? Avoid touching the sticky side of a lidocaine skin patch while applying it. Avoid accidentally injuring treated skin areas while they are numb. Avoid coming into contact with very hot or very cold surfaces. What are the possible side effects of lidocaine topical? Get emergency medical help if you have signs of an allergic reaction: hives; difficulty breathing; swelling of your face, lips, tongue, or throat. Call your doctor at once if you have: severe headache or vomiting; severe burning, stinging, or irritation where the medicine was applied; swelling or redness; sudden dizziness or drowsiness after medicine is applied; confusion, problems with speech or vision, ringing in your ears; or unusual sensations of temperature. Common side effects include: mild irritation where the medication is applied; or numbness in places where the medicine is accidentally applied. This is not a complete list of side effects and others may occur. Call your doctor for medical advice about side effects. You may report side effects to FDA at 3-125-LGV-4270. What other drugs will affect lidocaine topical? Medicine used on the skin is not likely to be affected by other drugs you use. But many drugs can interact with each other. Tell each of your health care providers about all medicines you use, including prescription and ozuf-ktl-rsiikph medicines, vitamins, and herbal products. Where can I get more information? Your pharmacist can provide more information about lidocaine topical. Remember, keep this and all other medicines out of the reach of children, never share your medicines with others, and use this medication only for the indication prescribed. Every effort has been made to ensure that the information provided by [facility]. ('[employer]') is accurate, up-to-date, and complete, but no guarantee is made to that effect. Drug information contained herein may be time sensitive. [employer] information has been compiled for use by healthcare practitioners and consumers in the [place] and therefore [employer] does not warrant that uses outside of the [place] are appropriate, unless specifically indicated otherwise. [employer] drug information does not endorse drugs, diagnose patients or recommend therapy. [employer] drug information isan informational resource designed to assist licensed healthcare practitioners in caring for their p atients and/or to serve consumers viewing this service as a supplement to, and not a substitute for, the expertise, skill, knowledge and judgment of healthcare practitioners. The absence of a warningfor a given drug or drug combination in no way should be construed to indicate that the drug or drug combination is safe, effective or appropriate for any given patient. [employer] does not assume any responsibility for any aspect of healthcare administered with the aid of information [employer] provides. The information contained herein is not intended to cover all possible uses, directions, precautions, warnings, drug interactions, allergic reactions, or adverse effects. If you have questions about the drugs you are taking, check with your doctor, nurse or pharmacist. Copyright 5612-3530 [facility]. Version: 04.16. Revision Date: 03/05/2023. cyclobenzaprine (melchor salazar) Nagi, Jorge Luis What is the most important information I should know about cyclobenzaprine? You should not use cyclobenzaprine if you have a thyroid disorder, heart block, congestive heart failure, a heart rhythm disorder, or you have recently had a heart attack. Do not use cyclobenzaprine if you have taken an MAO inhibitor in the past 14 days, such as isocarboxazid, linezolid, phenelzine, rasagiline, selegiline, or tranylcypromine. What is cyclobenzaprine? Cyclobenzaprine is a muscle relaxant. It works by blocking nerve impulses (or pain sensations) thatare sent to your brain. Cyclobenzaprine is used together with rest and physical therapy to relieve muscle spasms caused by painful conditions such as an injury. Cyclobenzaprine may also be used for purposes not listed in this medication guide. What should I discuss with my healthcare provider before taking cyclobenzaprine? You should not use cyclobenzaprine if you are allergic to it, or if you have: a thyroid disorder; heart block, heart rhythm disorder, congestive heart failure; or if you have recently had a heart attack. Cyclobenzaprine is not approved for use by anyone younger than 15 years old. Do not use cyclobenzaprine if you have taken an MAO inhibitor in the past 14 days. A dangerous druginteraction could occur. MAO inhibitors include isocarboxazid, linezolid, phenelzine, rasagiline, selegiline, and tranylcypromine. Some medicines can interact with cyclobenzaprine and cause a serious condition called serotonin syndrome. Be sure your doctor knows if you also take stimulant medicine, opioid medicine, herbal products, or medicine for depression, mental illness, Parkinson's disease, migraine headaches, serious infections, or prevention of nausea and vomiting. Ask your doctor before making any changes in how or when you take your medications. Tell your doctor if you have ever had: liver disease; glaucoma; enlarged prostate; or problems with urination. It is not known whether this medicine will harm an unborn baby. Tell your doctor if you are or plan to become . It may not be safe to breast-feed while using this medicine. Ask your doctor about any risk. Older adults may be more sensitive to the effects of this medicine. How should I take cyclobenzaprine? Follow all directions on your prescription label and read all medication guides or instruction sheets. Your doctor may occasionally change your dose. Use the medicine exactly as directed. Cyclobenzaprine is usually taken once daily for only 2 or 3 weeks. Follow your doctor's dosing instructions very carefully. Swallow the capsule whole and do not crush, chew, break, or open it. Take the medicine at the same time each day. Call your doctor if your symptoms do not improve after 3 weeks, or if they get worse. Store at room temperature away from moisture, heat, and light. What happens if I miss a dose? Take the medicine as soon as you can, but skip the missed dose if it is almost time for your next dose. Do not take two doses at one time. What happens if I overdose? Seek emergency medical attention or call the Poison Help line at . An overdose of cyclobenzaprine can be fatal. Overdose symptoms may include severe drowsiness, vomiting, fast heartbeats, tremors, agitation, or hallucinations. What should I avoid while taking cyclobenzaprine? Avoid driving or hazardous activity until you know how this medicine will affect you. Your reactions could be impaired. Avoid drinking alcohol. Dangerous side effects could occur. What are the possible side effects of cyclobenzaprine? Get emergency medical help if you have signs of an allergic reaction: hives; difficult breathing; swelling of your face, lips, tongue, or throat. Stop using cyclobenzaprine and call your doctor at once if you have: fast or irregular heartbeats; chest pain or pressure, pain spreading to your jaw or shoulder; or sudden numbness or weakness (especially on one side of the body), slurred speech, balance problems. Seek medical attention right away if you have symptoms of serotonin syndrome, such as: agitation, hallucinations, fever, sweating, shivering, fast heart rate, muscle stiffness, twitching, loss of coordination, nausea, vomiting, or diarrhea. Serious side effects may be more likely in older adults. Common side effects may include: drowsiness, tiredness; headache, dizziness; dry mouth; or upset stomach, nausea, constipation. This is not a complete list of side effects and others may occur. Call your doctor for medical advice about side effects. You may report side effects to FDA at 3-267-YUK-7365. What other drugs will affect cyclobenzaprine? Using cyclobenzaprine with other drugs that make you drowsy can worsen this effect. Ask your doctorbefore using opioid medication, a sleeping pill, a muscle relaxer, or medicine for anxiety or seizures. Tell your doctor about all your other medicines, especially: bupropion (Zyban, for smoking cessation); meperidine; tramadol; verapamil; cold or allergy medicine that contains an antihistamine (Benadryl and others); medicine to treat Parkinson's disease; medicine to treat excess stomach acid, stomach ulcer, motion sickness, or irritable bowel syndrome; medicine to treat overactive bladder; or bronchodilator asthma medication. This list is not complete. Other drugs may affect cyclobenzaprine, including prescription and oodb-iqs-panvmqo medicines, vitamins, and herbal products. Not all possible drug interactions are listed here. Where can I get more information? Your pharmacist can provide more information about cyclobenzaprine. Remember, keep this and all other medicines out of the reach of children, never share your medicines with others, and use this medication only for the indication prescribed. Every effort has been made to ensure that the information provided by [facility]. ('[employer]') is accurate, up-to-date, and complete, but no guarantee is made to that effect. Drug information contained herein may be time sensitive. [employer] information has been compiled for use by healthcare practitioners and consumers in the [place] and therefore [employer] does not warrant that uses outside of the [place] are appropriate, unless specifically indicated otherwise. [employer] drug information does not endorse drugs, diagnose patients or recommend therapy. [employer] drug information isan informational resource designed to assist licensed healthcare practitioners in caring for their p atients and/or to serve consumers viewing this service as a supplement to, and not a substitute for, the expertise, skill, knowledge and judgment of healthcare practitioners. The absence of a warningfor a given drug or drug combination in no way should be construed to indicate that the drug or drug combination is safe, effective or appropriate for any given patient. [employer] does not assume any responsibility for any aspect of healthcare administered with the aid of information [employer] provides. The information contained herein is not intended to cover all possible uses, directions, precautions, warnings, drug interactions, allergic reactions, or adverse effects. If you have questions about the drugs you are taking, check with your doctor, nurse or pharmacist. Copyright 7494-4374 [facility]. Version: 7.01. Revision Date: 01/17/2023. Education Materials Shoulder Impingement Syndrome The rotator cuff is a group of muscles and tendons that surround the shoulder joint. These muscles and tendons hold the arm in its joint. They help the shoulder move. The rotator cuff muscles and tendons can become irritated from repeated rubbing against the shoulder bone. This is called shoulder impingement syndrome or rotator cuff tendonitis. If your case is mild, you may only need to rest the shoulder and then do certain exercises to strengthen the muscles. You can also take anti-inflammatory medicines. Steroid injections into the shoulder can ease inflammation. But you can have only a limited number of these. If the condition gets worse, your shoulder muscles may become thin and weak. This can lead to a rotator cuff tear. Symptoms of shoulder impingement syndrome may include: Shoulder pain that gets worse when you raise your arm overhead Weakness of the shoulder muscles when you use your arm overhead Popping and clicking when you move your shoulder Shoulder pain that wakes you up at night, especially when you sleep on the affected shoulder Sudden pain in your shoulder when you lift or reach Home care Follow these tips to take care of yourself at home: Avoid activities that make your pain worse. These include raising your arms overhead, repeating thesame motion over and over, or lifting heavy objects. Don t hold your arm in one position for a long time. Keep it moving. Put an ice pack on the sore area for 20 minutes every 1 to 2 hours for the first day. You can make an ice pack by putting ice cubes in a plastic bag. Wrap the bag in a towel before putting it on yourshoulder. A frozen bag of peas or something similar can also be used as an ice pack. Use the ice packs 3 to 4 times a day for the next 2 days. Continue using the ice to relieve of pain and swelling as needed. You may take acetaminophen or ibuprofen to control pain, unless another medicine was prescribed. Ifprednisone was prescribed, don t take anti-inflammatory medicines. If you have chronic liver or kidney disease or ever had a stomach ulcer or gastrointestinal bleeding, talk with your doctor before using these medicines. After your symptoms ease, you may get physical therapy or start a home exercise program. This can strengthen your shoulder muscles and help your range of motion. Talk with your doctor about what is best for your condition. Follow-up care Follow up with your healthcare provider, or as advised. When to seek medical advice Call your healthcare provider right away if any of these occur: Shoulder pain that gets worse and wakes you up at night Your shoulder or arm swells Numbness, tingling, or pain that travels down the arm to the hand Loss of shoulder strength Fever or chills 5420-2612 [employer]. [address] [place] [address]. All rights reserved. This information is not intended as a substitute for professional medical care. Always follow yourhealthcare professional's instructions. Additional Information VACCINATE! IT SAVES LIVES! Members of the community who have not yet received the COVID-19 vaccine and would like to receive it can visit one of [facility] vaccine clinics. There are many vaccine clinic locations within the [facility]. For locations and available times, please visit www.[email or web address]/. It is important to note that some COVID mobile vaccine clinics are held outdoors and may be canceled in rainy or stormy conditions. To learn more about pediatric vaccinations (ages 5-11), we invite you to visit the [facility] webpage. [email or web address]/[email or web address] [email or web address] learn more about the COVID-19 vaccine, we invite you to visit the CDC website for a list of frequently asked questions. https://www.cdc.gov/coronavirus/2019-ncov/vaccines/faq.html [facility] Patient Portal Access Instructions: Stay connected with your healthcare team and access your personal medical information anytime with the [facility] Patient Portal. If you would like a full copy of your medical records please contact the [facility] Medical Records Department Friday through Friday between 8a.m. and 4:30p.m. Please follow the directions below to access the portal: 1.Access the email account you provided upon registration to the [facility].2.Look for an invitation email from [facility].3.Open the email and access the invitation link: Accept Invitation to [facility]4.Fill in the required blackman to create your account. Sign into [email or web address] with your username and password that you created in the above steps to stay up to date. You can then view a summary of results, a summary of your visits, and the ability to download your summaries to your computer or send the information securely to a physician. Remember that your healthcare information is confidential, so carefully consider who you will allow to register on the [facility] Patient Portal for access to your information. You can also access the [employer] Patient Portal on the [employer] johnny. Simply click on Health Records under [facility] and then click on the [employer] logo. HOW TO SAFELY DISPOSE OF PRESCRIPTION MEDICATIONS Please use one of the following methods to safely dispose of your unused medications. 1.Use a drug disposal kit: the drug disposal pouch allows you to safely discard your old and unuseddrugs. Ask your nurse to give you one when you are discharged.2.Visit a local take-back location: Many local pharmacies and police departments have programs that collect old and unwanted prescriptiondrugs. Call your local pharmacy or go to http://i'mma.[employer]/8R9Au7k to find one close to you.3.Make use of household items: Use cat litter or old coffee grounds to dispose medications if other options arenot available. Mix your drugs with these household products, seal them in an airtight container andthrow it into the garbage. Call [facility]: [phone] to be sure your drugs can be disposed of in this way. Some medicines may require a different approach.4.Never flush your medications down the toilet. IF YOU HAVE BEEN PRESCRIBED AN OPIOIDS FOR PAIN If you have been prescribed an opioid (such as hydrocodone, oxycodone or morphine), it is critical to understand the possible side effects and risks of opioid pain medications. Even when taken as directed, opioids can have several side effects including: Tolerance, meaning you might need to take more of a medication for the same pain relief. Nausea, vomiting and/or constipation. Sleepiness, dizziness, dry mouth, confusion, depression or itching. Physical dependence, meaning you have withdrawal symptoms when a medication is stopped ? this can develop within a few days. KNOW YOUR RESPONSIBILITIES It is important to know exactly how much and how often to take the opioid pain medications you are prescribed. Never take opioids in higher amounts or more often than prescribed. Do not combine opioids with alcohol or other drugs that cause drowsiness, such as benzodiazepines, also known as benzos, including diazepam and alprazolam, muscle relaxants or sleep aids. Never sell or share prescription opioids. This is illegal. Store opioids in a secure place and out of reach of others (including children, family, friends and visitors). The last page(s) of this document has been signed and retained as a CHART COPY Signatures Patient Education Materials Shoulder Impingement Syndrome Medication Leaflets lidocaine topical, cyclobenzaprine My discharge plan and instructions have been reviewed and explained to me and I,SANTY RAZA understand my current condition and have read and understand these discharge instructions. I have received a written copy of the plan/instructions. If I have questions, I am aware that I should contactmy doctor. 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 There were two prescriptions for the effexor (venlafaxine) that went to the pharmacy (1 week of 75 mg and then 1 month of the 150 mg to start after taking the 75 mg for a week). Take 1/2 tab of the citalopram (20 mg) X 1 week with effexor 75 mg. Then, stop the citalopram and increase the effexor to 150 mg daily. 2. Keep wearing the compression stockings. Prop feet up. Use the lasix as needed. 3. Recheck in 1 month. [facility] of Present illness Narrative* Deloris Chavez APRN.CNP - 02/17/2024 7:46 AM EDT This is a 63 year old female who presents today with: Patient presents with: Follow Up HISTORY OF PRESENT ILLNESS: Santy Raza is a 63 year old female. Patient presents with: Follow Up Pt presents today for 3 month recheck. At last visit, we increased the wellbutrin. She hasn't noticed much of a difference. Just with decrease motivation. Some sadness. Isolates more. She continues to get some swelling in her leg. She takes the lasix prn. Props legs a lot. Wears compression. Refers that a few days ago, felt like the back of her throat or the back of her tongue had some swelling. No problems with breathing. Took ibuprofen, which improved it. She hasn't had it since. PAST MEDICAL HISTORY: PAST MEDICAL HISTORY No date: Allergic rhinitis, cause unspecified 08/27/2022: BMI 45.0-49.9, adult (HCC) No date: Essential hypertension, benign 09/26/2015: Hypothyroidism No date: Mixed conductive and sensorineural hearing loss No date: TRINI on CPAP No date: Other anxiety states 03/29/2011: Perforated tympanic membrane 09/06/2022: S/P repair of ventral hernia No date: Synovitis and tenosynovitis, unspecified 03/23/2012: Tobacco abuse PAST SURGICAL HISTORY 09/13/2020: COLONOSCOPY SCRN NOT HIGH RISK Comment: 10/25/2020: EGD Comment: 09/05/2022: L'SCOPE DX W/WO BRUSHINGS/WASHINGS Comment: Dr. Guadarrama No date: LIG/TRNSXJ FLP TUBE ABDL/VAG APPR UNI/BI Comment: Tubal ligation 09/05/2022: LX REPAIR RECURRENT VENTRAL HERNIA Comment: open, w/ mesh. Dr. Guadarrama No date: MYRINGOTOMY ASPIR&/EUSTACHIAN TUBE NFLTJ ANES Comment: Myringotomy/tubes 01/15/2019: NEUROPLASTY &/TRANSPOS MEDIAN NRV CARPAL TUNNE; Bilateral Comment: Bilateral carpal tunnel release 04/23/2016: REDUCTION OF LARGE BREAST 09/30/2018: STEREOTACT BREAST BX EA LESION PC Comment: left stereotactic breast biopsy w/vacuum assisted core needle biopsy, specimen radiograph and marker placement ALLERGIES Doxycycline Monohydrate, Hctz [Amiloride-Hydrochlorothiazide], Levaquin [Levofloxacin], Meloxicam, and Peanuts MEDICATIONS Current Outpatient Medications Medication Sig citalopram (CELEXA) 40 mg tablet Take 1 tablet by mouth once daily. ALPRAZolam (XANAX) 1 mg tablet Take 1 tablet by mouth two times a day as needed for up to 30 days. buPROPion XL (WELLBUTRIN XL) 300 mg 24 hr tablet Take 1 tablet by mouth once daily. furosemide (LASIX) 20 mg tablet Take 1 tablet by mouth once daily. If you have increased swelling, okay to increase to 2 tablets daily for 2-3 days. Do not do more than once weekly. levothyroxine (LEVOXYL) 200 mcg tablet Take 1 tablet by mouth once daily. Take on empty stomach. For thyroid ofloxacin (FLOXIN) 0.3 % otic solution Use 5 Drops in both ears once daily. albuterol (PROVENTIL) 2.5 mg /3 mL (0.083 %) nebulizer solution Use 3 mL via nebulizer every 6 hours as needed for wheezing/shortness of breath. amitriptyline (ELAVIL) 25 mg tablet Take 1 tablet by mouth daily at bedtime. amLODIPine (NORVASC) 5 mg tablet Take 1 tablet by mouth once daily. budesonide-formoterol (SYMBICORT) 160-4.5 mcg/actuation inhaler Inhale 2 Puffs as instructed two times a day. Ipratropium (ATROVENT HFA) 17 mcg/actuation inhaler Inhale 2 Puffs as instructed every 6 hours. lisinopril (ZESTRIL) 40 mg tablet Take 1 tablet by mouth once daily. atorvastatin (LIPITOR) 10 mg tablet Take 1 tablet by mouth daily at bedtime. For cholesterol. benzonatate (TESSALON PERLES) 100 mg capsule Take 1-2 capsules by mouth three times a day as neededfor cough. Cholecalciferol, Vitamin D3, 125 mcg (5,000 unit) cap Take 1 capsule by mouth once daily. lansoprazole (PREVACID) 15 mg capsule Take 1 capsule by mouth once daily. ondansetron (ZOFRAN) 4 mg tablet Take 1 tablet by mouth every 8 hours as needed for nausea/vomiting. loratadine (CLARITIN) 10 mg tablet Take 1 tablet by mouth once daily. fluticasone (FLONASE) 50 mcg/actuation nasal spray Use 2 Sprays in each nostril once daily. Rinse mouth after use. Nebulizer Accessories misc 1 Each as directed. Nebulizer tubing and mouth piece. faxed to dexAMETHasone (DEXASOL) 0.1 % ophthalmic solution Use 1 Drop in both eyes every 12 hours as needed.Instill 2 drops into affected ear twice daily as needed. baclofen (LIORESAL) 10 mg tablet TAKE 1/2 TO 1 TABLET BY MOUTH TWICE A DAY NEEDED FOR SPASMS CPAP autoCPAP 5-15 cmH2O, mask, tubing, filters, heated humidity, lifetime supplies. Dx: TRINI Nebulizer 1 Each as needed. NEBULIZER TUBING AND SUPPLIES. DX: CHRONIC BRONCHITIS J41.1, WHEEZING R06.2. FAX TO [employer] [phone] COMPOUNDED PRESCRIPTION Nebulizer for albuterol every fours as needed ICD: R06.2 No current facility-administered medications for this visit. FAMILY HISTORY Problem Relation Age of Onset No Known Problems Father Coronary Artery Disease Mother PE Asthma Mother Multiple Sclerosis Mother Coronary Artery Disease Brother None Brother Coronary Artery Disease Sister Colon Cancer No Family History Anesthesia Problems No Family History Social History Tobacco Use Smoking status: Former Current packs/day: 0.00 Average packs/day: 1 pack/day for 35.8 years (35.8 ttl pk-yrs) Types: Cigarettes Start date: 05/29/1987 Quit date: 03/02/2023 Years since quittin.9 Smokeless tobacco: Never Vaping Use Vaping status: Never Used Substance Use Topics Alcohol use: No Drug use: No EXAM: BP 120/84 Pulse 76 Resp 16 LMP 09/14/2013 SpO2 91% PHYSICAL EXAM: General Appearance: Well appearing, alert, in no acute distress, well-hydrated, well nourished.. Skin: Skin color, texture, turgor normal, no suspicious rashes or lesions. Head: Normocephalic, no masses, lesions, tenderness or abnormalities. Eyes: Anicteric sclera. Extraocular movements are intact. . Neck: Supple, no adenopathy; thyroid symmetric, normal size, no bruits. Lungs: Lungs clear to auscultation. No wheezing, rhonchi, rales.. Heart: RRR without murmur, gallop, or rubs. No ectopy. Extremities: +1-+2 edema -- L>R. Neurologic: Gait normal. ASSESSMENT/PLAN: 1. Depression, recurrent (HCC) - ICD9: 296.30, ICD10: F33.9 (primary diagnosis) Discussed options. Will cross-wean off citalopram and start effexor. Recheck in 1 month. - VENLAFAXINE ER 75 MG CAPSULE,EXTENDED RELEASE 24 HR - VENLAFAXINE ER 150 MG CAPSULE,EXTENDED RELEASE 24 HR 2. Medication management - ICD9: V58.69, ICD10: Z79.899 New medication agreement signed. Due for tox screen -- urinated on her way in this morning. Did give a sample, but was not enough for all testing. Will repeat when she is next month for recheck. - PAIN PANEL, UR QUANT - TOXICOLOGY SCREEN, ROUTINE URINE - BENZO CONFIRM, URINE 3. Anxiety - ICD9: 300.00, ICD10: F41.9 As above. - VENLAFAXINE ER 75 MG CAPSULE,EXTENDED RELEASE 24 HR - VENLAFAXINE ER 150 MG CAPSULE,EXTENDED RELEASE 24 HR 4. Essential hypertension, benign - ICD9: 401.1, ICD10: I10 - Controlled - Continue current medications - Recommend home blood pressure monitoring, to bring results to next visit - Encouraged sodium restriction, DASH or Mediterranean diet - Recommend regular aerobic exercise 5. Bilateral leg edema - ICD9: 782.3, ICD10: R60.0 Continue to monitor. If continues to be problematic, consider decreasing lisinopril and adding HCTZ. Recheck in 1 month. Discussed treatment plan and patient voices understanding. Patient's questions answered appropriately. Medications and potential side effects were discussed and patient voices understanding. Return to the office as scheduled or as needed for worsening/no improvement. Deloris Chavez APRN.CONTENT MANAGEMENT CONSULTANT documented in this encounterSt. [facility] Telephone encounter Note * Telephone Encounter - Ramona Nelson LPN - 02/02/2024 8:11 AM EDT [facility]- 01/21/24 Labs-12/03/23 NOV-02/17/[address] [facility]08-19-2024 Miscellaneous Notes* Telephone Encounter - Ramona Nelson LPN - 02/02/2024 8:11 AM EDT SABA- 01/21/24 Labs-12/03/23 NOV-02/17/24 Ramona Nelson LPN documented in this encounterSt. [facility] Telephone encounter Note * Telephone Encounter - Bhavani Garrison LPN - 02/02/2024 7:17 AM EDT Prescription Refill Information The patient has been identified by name and date of : Yes Caregiver verified no other encounters exist for this prescription request: Yes Caregiver confirmed with patient/requestor that no other refills are due, in the near future, with this provider at this time: Yes The last office visit in the department: 01/21/24 Does the patient have a future office visit with this provider/department: Yes 02/17/24 Requested Prescriptions Pending Prescriptions Disp Refills ALPRAZolam (XANAX) 1 mg tablet 60 tablet 0 Sig: Take 1 tablet by mouth two times a day as needed for up to 30 days. Bhavani Garrison LPN February 02, 2024 7:[address] [facility]-19-2024 Miscellaneous Notes* Telephone Encounter - Bhavani Garrison LPN - 02/02/2024 7:17 AM EDT Prescription Refill Information The patient has been identified by name and date of : Yes Caregiver verified no other encounters exist for this prescription request: Yes Caregiver confirmed with patient/requestor that no other refills are due, in the near future, with this provider at this time: Yes The last office visit in the department: 01/21/24 Does the patient have a future office visit with this provider/department: Yes 02/17/24 Requested Prescriptions Pending Prescriptions Disp Refills ALPRAZolam (XANAX) 1 mg tablet 60 tablet 0 Sig: Take 1 tablet by mouth two times a day as needed for up to 30 days. Bhavani Garrison LPN February 02, 2024 7:18 AM documented in this encounterSt. [facility] History of Present illness Narrative* Gareth Domingo APRN.CNP - 01/22/2024 1:47 PM EDT Follow Up Diagnosis: Lung Nodule Enrolled in Lung Nodule program: Completed Lung Nodule Program Location: [facility] Patient will begin screening next year. documented in this encounterSt. [facility] Telephone encounter Note * Telephone Encounter - Gareth Domingo APRN.CNP - 01/22/2024 1:43 PM EDT Left message for pt to call back regarding results. My Chart message sent. Gareth Domingo APRN.CNP [facility]08-08-2024 Miscellaneous Notes* Telephone Encounter - Gareth Domingo APRN.CNP - 01/22/2024 1:43 PM EDT Left message for pt to call back regarding results. My Chart message sent. Gareth Domingo APRN.CNP documented in this encounterSt. [facility]08-07-2024 Instructions* Patient Instructions* Deloris Chavez APRN.CNP - 01/21/2024 10:44 AM EDT Increase the wellbutrin to 300 mg daily. Take the lasix daily. If increased swelling, take 2 tablets X 2-3 days, but do not do more than once weekly. Recheck in a month. documented in this encounterSt. [facility] History of Present illness Narrative* Deloris Chavez APRN.CONTENT MANAGEMENT CONSULTANT - 01/21/2024 10:23 AM EDT This is a 63 year old female who presents today with: Patient presents with: Recheck: Bilateral lower leg edema; not improving HISTORY OF PRESENT ILLNESS: Santy Raza is a 63 year old female. Patient presents with: Recheck: Bilateral lower leg edema; not improving Pt presents today with complaint of continued bilateral lower extremity edema. Refers that when she took the lasix, it did improve some. She is wearing compression stockings. No worsening SOB. Varies in degree. She also reports mood hasn't been as good. Feels more withdrawn. Doesn't feel like going out and doing anything. Decreased motivation. PAST MEDICAL HISTORY: PAST MEDICAL HISTORY No date: Allergic rhinitis, cause unspecified 08/27/2022: BMI 45.0-49.9, adult ([facility]) No date: Essential hypertension, benign 09/26/2015: Hypothyroidism No date: Mixed conductive and sensorineural hearing loss No date: TRINI on CPAP No date: Other anxiety states 03/29/2011: Perforated tympanic membrane 09/06/2022: S/P repair of ventral hernia No date: Synovitis and tenosynovitis, unspecified 03/23/2012: Tobacco abuse PAST SURGICAL HISTORY 09/13/2020: COLONOSCOPY SCRN NOT HIGH RISK Comment: 10/25/2020: EGD Comment: 09/05/2022: L'SCOPE DX W/WO BRUSHINGS/WASHINGS Comment: Dr. Guadarrama No date: LIG/TRNSXJ FLP TUBE ABDL/VAG APPR UNI/BI Comment: Tubal ligation 09/05/2022: LX REPAIR RECURRENT VENTRAL HERNIA Comment: open, w/ mesh. Dr. Guadarrama No date: MYRINGOTOMY ASPIR&/EUSTACHIAN TUBE NFLTJ ANES Comment: Myringotomy/tubes 01/15/2019: NEUROPLASTY &/TRANSPOS MEDIAN NRV CARPAL TUNNE; Bilateral Comment: Bilateral carpal tunnel release 04/23/2016: REDUCTION OF LARGE BREAST 09/30/2018: STEREOTACT BREAST BX EA LESION PC Comment: left stereotactic breast biopsy w/vacuum assisted core needle biopsy, specimen radiograph and marker placement ALLERGIES Doxycycline Monohydrate, Hctz [Amiloride-Hydrochlorothiazide], Levaquin [Levofloxacin], Meloxicam, and Peanuts MEDICATIONS Current Outpatient Medications Medication Sig furosemide (LASIX) 20 mg tablet Take 1 tablet by mouth once daily. levothyroxine (LEVOXYL) 200 mcg tablet Take 1 tablet by mouth once daily. Take on empty stomach. For thyroid ofloxacin (FLOXIN) 0.3 % otic solution Use 5 Drops in both ears once daily. albuterol (PROVENTIL) 2.5 mg /3 mL (0.083 %) nebulizer solution Use 3 mL via nebulizer every 6 hours as needed for wheezing/shortness of breath. amitriptyline (ELAVIL) 25 mg tablet Take 1 tablet by mouth daily at bedtime. amLODIPine (NORVASC) 5 mg tablet Take 1 tablet by mouth once daily. budesonide-formoterol (SYMBICORT) 160-4.5 mcg/actuation inhaler Inhale 2 Puffs as instructed two times a day. Ipratropium (ATROVENT HFA) 17 mcg/actuation inhaler Inhale 2 Puffs as instructed every 6 hours. furosemide (LASIX) 20 mg tablet Take 1 tablet by mouth once daily for 5 days. Take an extra 20 mg daily for next 5 days lisinopril (ZESTRIL) 40 mg tablet Take 1 tablet by mouth once daily. buPROPion XL (WELLBUTRIN XL) 150 mg 24 hr tablet Take 1 tablet by mouth once daily. atorvastatin (LIPITOR) 10 mg tablet Take 1 tablet by mouth daily at bedtime. For cholesterol. benzonatate (TESSALON PERLES) 100 mg capsule Take 1-2 capsules by mouth three times a day as neededfor cough. citalopram (CELEXA) 40 mg tablet Take 1 tablet by mouth once daily. Cholecalciferol, Vitamin D3, 125 mcg (5,000 unit) cap Take 1 capsule by mouth once daily. lansoprazole (PREVACID) 15 mg capsule Take 1 capsule by mouth once daily. promethazine (PHENERGAN) 25 mg tablet Take 1 tablet by mouth every 6 hours as needed for nausea/vomiting. ondansetron (ZOFRAN) 4 mg tablet Take 1 tablet by mouth every 8 hours as needed for nausea/vomiting. loratadine (CLARITIN) 10 mg tablet Take 1 tablet by mouth once daily. fluticasone (FLONASE) 50 mcg/actuation nasal spray Use 2 Sprays in each nostril once daily. Rinse mouth after use. Nebulizer Accessories misc 1 Each as directed. Nebulizer tubing and mouth piece. faxed to dexAMETHasone (DEXASOL) 0.1 % ophthalmic solution Use 1 Drop in both eyes every 12 hours as needed.Instill 2 drops into affected ear twice daily as needed. baclofen (LIORESAL) 10 mg tablet TAKE 1/2 TO 1 TABLET BY MOUTH TWICE A DAY NEEDED FOR SPASMS CPAP autoCPAP 5-15 cmH2O, mask, tubing, filters, heated humidity, lifetime supplies. Dx: TRINI Nebulizer 1 Each as needed. NEBULIZER TUBING AND SUPPLIES. DX: CHRONIC BRONCHITIS J41.1, WHEEZING R06.2. FAX TO [employer] [phone] COMPOUNDED PRESCRIPTION Nebulizer for albuterol every fours as needed ICD: R06.2 No current facility-administered medications for this visit. FAMILY HISTORY Problem Relation Age of Onset No Known Problems Father Coronary Artery Disease Mother PE Asthma Mother Multiple Sclerosis Mother Coronary Artery Disease Brother None Brother Coronary Artery Disease Sister Colon Cancer No Family History Anesthesia Problems No Family History Social History Tobacco Use Smoking status: Former Packs/day: 1.00 Years: 35.00 Additional pack years: 0.00 Total pack years: 35.00 Types: Cigarettes Start date: 05/29/1987 Quit date: 03/02/2023 Years since quittin.8 Smokeless tobacco: Never Vaping Use Vaping Use: Never used Substance Use Topics Alcohol use: No Drug use: No EXAM: BP 130/88 Pulse 78 Resp 16 LMP 09/14/2013 SpO2 91% PHYSICAL EXAM: General Appearance: Well appearing, alert, in no acute distress, well-hydrated, well nourished.. Skin: Skin color, texture, turgor normal, no suspicious rashes or lesions. Head: Normocephalic, no masses, lesions, tenderness or abnormalities. Eyes: Anicteric sclera. Extraocular movements are intact. . Lungs: Lungs clear to auscultation. No wheezing, rhonchi, rales.. Heart: RRR without murmur, gallop, or rubs. No ectopy. Extremities: No deformities, +1 edema -- L>R. Neurologic: Gait normal. ASSESSMENT/PLAN: 1. Bilateral leg edema - ICD9: 782.3, ICD10: R60.0 (primary diagnosis) Weight stable. No worsening SOB. Prop feet. Limit sodium. Discussed that for increased swelling, she can increase her lasix for 2-3 days. Aware that she shouldn't do this more than once weekly. - FUROSEMIDE 20 MG TABLET 2. Depression, recurrent (HCC) - ICD9: 296.30, ICD10: F33.9 Increase welllbutrin. Hopefully this will help with motivation. Recheck in 1 month. - BUPROPION XL 300 MG 24 HR TAB Discussed treatment plan and patient voices understanding. Patient's questions answered appropriately. Medications and potential side effects were discussed and patient voices understanding. Return to the office as scheduled or as needed for worsening/no improvement. Deloris Chavez APRN.CONTENT MANAGEMENT CONSULTANT documented in this encounterSt. [facility]08-[facility] History of Present illness Narrative* Kelin De Los Santos RT(R) - 01/16/2024 8:40 AM EDT Radiology Service Progress Note PATIENT NAME: Santy Raza DATE OF SERVICE: January 16, 2024 TIME: 2:53 PM PATIENT IDENTITY VERIFICATION COMPLETED USING TWO (2) IDENTIFIERS: Name and Date of confirmedby patient verbally. FALL SCREENING: Has the patient had 2 falls in the last year or 1 fall with injury or currently using an Ambulatory Assistive Device (Walker, Cane, Wheelchair, Crutches, etc.)? No PATIENT GENDER DATA: Female. status: : No status: NO. PATIENT RELEVANT IMPLANT DATA REVIEWED: Not Applicable PATIENT PRESENTS WITH AN IMPLANTABLE OR ATTACHED TIGHTENER: No RADIOLOGY DEPARTMENT: CT; Exam(s) Completed: Chest PERIPHERAL IV DATA: Not applicable SIGNED BY: RT Dani(Damon) January 16, 2024 2:53 PM documented in this encounterSt. [facility]07-29-[facility] Note* Letter - [facility] - 01/12/2024 7:43 AM EDT January 12, 2024 PID: [id number] Santy Raza [address] [place] [address] Dear Ms. Raza, We are pleased to inform you that the results of your recent breast imaging exam on 01/09/2024 are normal. Breast tissue can be either dense or not dense. Dense tissue makes it harder to find breast cancer on a mammogram and also raises the risk of developing breast cancer. Your breast tissue is not dense. Talk to your healthcare provider about breast density, risks for breast cancer, and your individual situation. Early detection of cancer is very important. We also understand recommendations regarding breast cancer screening are controversial. Please discuss with your primary care provider which strategy is best for you and whether a mammogram is right for you. Your imaging studies and report will be kept on file at [facility] as part of your permanent medical record and are available for your continuing care. Thank you for allowing us to help in meeting your health care needs. Sincerely, Dr. Saeed Interpreting Radiologist [facility] (Normal over 40) [facility]07-29-2024 Miscellaneous Notes* Letter - [facility] - 01/12/2024 7:43 AM EDT January 12, 2024 PID: [id number] Santy Raza [address] [place] [address] Dear Ms. Raza, We are pleased to inform you that the results of your recent breast imaging exam on 01/09/2024 are normal. Breast tissue can be either dense or not dense. Dense tissue makes it harder to find breast cancer on a mammogram and also raises the risk of developing breast cancer. Your breast tissue is not dense. Talk to your healthcare provider about breast density, risks for breast cancer, and your individual situation. Early detection of cancer is very important. We also understand recommendations regarding breast cancer screening are controversial. Please discuss with your primary care provider which strategy is best for you and whether a mammogram is right for you. Your imaging studies and report will be [facility] on [facility] at [facility] as part of your permanent medical record and are available for your continuing care. Thank you for allowing us to help in meeting your health care needs. Sincerely, Dr. Saeed Interpreting Radiologist [facility] (Normal over 40) documented in this encounterSt. Mary'[facility]07-[facility] History of Present illness Narrative* Denisha Rosenthal RT(R) - 01/09/2024 10:10 AM EDT Radiology Service Progress Note PATIENT NAME: Santy Raza DATE OF SERVICE: January 09, 2024 TIME: 8:54 AM PATIENT IDENTITY VERIFICATION COMPLETED USING TWO (2) IDENTIFIERS: Name and Date of confirmedby patient verbally. FALL SCREENING: Has the patient had 2 falls in the last year or 1 fall with injury or currently using an Ambulatory Assistive Device (Walker, Cane, Wheelchair, Crutches, etc.)? No PATIENT GENDER DATA: Female. status: : No status: NO. PATIENT RELEVANT IMPLANT DATA REVIEWED: Not Applicable PATIENT PRESENTS WITH AN IMPLANTABLE OR ATTACHED TIGHTENER: No RADIOLOGY DEPARTMENT: Mammography PERIPHERAL IV DATA: Not applicable SIGNED BY: RT Sav(Damon) January 09, 2024 8:54 AM documented in this encounterSt. Mary'[facility] Telephone encounter Note * Telephone Encounter - Kathy Shane LPN - 12/29/2023 10:38 AM EDT Change of pharmacy. Prescription Refill Information The patient has been identified by name and date of : Yes Caregiver verified no other encounters exist for this prescription request: Yes Caregiver confirmed with patient/requestor that no other refills are due, in the near future, with this provider at this time: Yes The last office visit in the department: 12/24/2023 Does the patient have a future office visit with this provider/department: Yes Requested Prescriptions Pending Prescriptions Disp Refills levothyroxine (LEVOXYL) 200 mcg tablet 30 tablet 11 Sig: Take 1 tablet by mouth once daily. Take on empty stomach. For thyroid Kathy Shane LPN December 29, 2023 10:[address] [facility]07-15-2024 Miscellaneous Notes* Telephone Encounter - Kathy Shane LPN - 12/29/2023 10:38 AM EDT Change of pharmacy. Prescription Refill Information The patient has been identified by name and date of : Yes Caregiver verified no other encounters exist for this prescription request: Yes Caregiver confirmed with patient/requestor that no other refills are due, in the near future, with this provider at this time: Yes The last office visit in the department: 12/24/2023 Does the patient have a future office visit with this provider/department: Yes Requested Prescriptions Pending Prescriptions Disp Refills levothyroxine (LEVOXYL) 200 mcg tablet 30 tablet 11 Sig: Take 1 tablet by mouth once daily. Take on empty stomach. For thyroid Kathy Shane LPN December 29, 2023 10:39 AM documented in this encounterSt. [facility] Instructions* Patient Instructions* Deloris Chavez APRN.CNP - 12/24/2023 8:37 AM EDT Take extra 20 mg lasix for the next 5 days Continue to wear compression stockings Keep legs elevated Low salt diet Let us know if any new/worsening symptoms! documented in this encounterSt. Mary'[facility] History of Present illness Narrative* Deloris Chavez APRN.CNP - 12/24/2023 8:02 AM EDT This is a 62 year old female who presents today with: Patient presents with: Follow Up: ER follow up HISTORY OF PRESENT ILLNESS: Santy Raza is a 62 year old female. Patient presents with: Follow Up: ER follow up [facility] follow up for leg swelling x 1 week Both legs are swollen but L > R Pt has been wearing compression stockings Pt has been trying to keep legs elevated Pt has been taking lasix Pt has intermittent 7/10 pain to the bilateral shins Pt has taken amlodipine for a couple of years Pt hasn't noticed any discoloration to LLE. No recent injury to LLE. No recent travel or surgery. No hx DVT/PE. Per patient, she had an US in ER that was negative for DVT. No c/o chest pain Per patient, she has chronic shortness of breath Pt having itchiness in bilateral ears Pt noticing drainage from L ear PAST MEDICAL HISTORY: PAST MEDICAL HISTORY Diagnosis Date Allergic rhinitis, cause unspecified BMI 45.0-49.9, adult (HCC) 08/27/2022 Essential hypertension, benign Hypothyroidism 09/26/2015 Mixed conductive and sensorineural hearing loss TRINI on CPAP Other anxiety states Perforated tympanic membrane 03/29/2011 S/P repair of ventral hernia 09/06/2022 Synovitis and tenosynovitis, unspecified Tobacco abuse 03/23/2012 PAST SURGICAL HISTORY Procedure Laterality Date COLONOSCOPY SCRN NOT HIGH RISK 09/13/2020 EGD 10/25/2020 L'SCOPE DX W/WO BRUSHINGS/WASHINGS 09/05/2022 Dr. Guadarrama LIG/TRNSXJ FLP TUBE ABDL/VAG APPR UNI/BI Tubal ligation LX REPAIR RECURRENT VENTRAL HERNIA 09/05/2022 open, w/ mesh. Dr. Guadarrama MYRINGOTOMY ASPIR&/EUSTACHIAN TUBE NFLTJ ANES Myringotomy/tubes NEUROPLASTY &/TRANSPOS MEDIAN NRV CARPAL TUNNE Bilateral 01/15/2019 Bilateral carpal tunnel release REDUCTION OF LARGE BREAST 04/23/2016 STEREOTACT BREAST BX EA LESION PC 09/30/2018 left stereotactic breast biopsy w/vacuum assisted core needle biopsy, specimen radiograph and marker placement ALLERGIES Doxycycline Monohydrate, Hctz [Amiloride-Hydrochlorothiazide], Levaquin [Levofloxacin], Meloxicam, and Peanuts MEDICATIONS Current Outpatient Medications Medication Sig lisinopril (ZESTRIL) 40 mg tablet Take 1 tablet by mouth once daily. buPROPion XL (WELLBUTRIN XL) 150 mg 24 hr tablet Take 1 tablet by mouth once daily. ALPRAZolam (XANAX) 1 mg tablet Take 1 tablet by mouth two times a day as needed for up to 30 days. atorvastatin (LIPITOR) 10 mg tablet Take 1 tablet by mouth daily at bedtime. For cholesterol. benzonatate (TESSALON PERLES) 100 mg capsule Take 1-2 capsules by mouth three times a day as neededfor cough. furosemide (LASIX) 20 mg tablet Take 1 tablet by mouth once daily. citalopram (CELEXA) 40 mg tablet Take 1 tablet by mouth once daily. levothyroxine (LEVOXYL) 200 mcg tablet Take 1 tablet by mouth once daily. Take on empty stomach. For thyroid Cholecalciferol, Vitamin D3, 125 mcg (5,000 unit) cap Take 1 capsule by mouth once daily. lansoprazole (PREVACID) 15 mg capsule Take 1 capsule by mouth once daily. promethazine (PHENERGAN) 25 mg tablet Take 1 tablet by mouth every 6 hours as needed for nausea/vomiting. budesonide-formoterol (SYMBICORT) 160-4.5 mcg/actuation inhaler Inhale 2 Puffs as instructed two times a day. albuterol (PROVENTIL) 2.5 mg /3 mL (0.083 %) nebulizer solution Use 3 mL via nebulizer every 6 hours as needed for wheezing/shortness of breath. ondansetron (ZOFRAN) 4 mg tablet Take 1 tablet by mouth every 8 hours as needed for nausea/vomiting. loratadine (CLARITIN) 10 mg tablet Take 1 tablet by mouth once daily. fluticasone (FLONASE) 50 mcg/actuation nasal spray Use 2 Sprays in each nostril once daily. Rinse mouth after use. amitriptyline (ELAVIL) 25 mg tablet Take 1 tablet by mouth daily at bedtime. amLODIPine (NORVASC) 5 mg tablet take 1 tablet by mouth once daily Ipratropium (ATROVENT HFA) 17 mcg/actuation inhaler Inhale 2 Puffs as instructed every 6 hours. Nebulizer Accessories misc 1 Each as directed. Nebulizer tubing and mouth piece. faxed to dexAMETHasone (DEXASOL) 0.1 % ophthalmic solution Use 1 Drop in both eyes every 12 hours as needed.Instill 2 drops into affected ear twice daily as needed. CPAP autoCPAP 5-15 cmH2O, mask, tubing, filters, heated humidity, lifetime supplies. Dx: TRINI Nebulizer 1 Each as needed. NEBULIZER TUBING AND SUPPLIES. DX: CHRONIC BRONCHITIS J41.1, WHEEZING R06.2. FAX TO [employer] [phone] COMPOUNDED PRESCRIPTION Nebulizer for albuterol every fours as needed ICD: R06.2 baclofen (LIORESAL) 10 mg tablet TAKE 1/2 TO 1 TABLET BY MOUTH TWICE A DAY NEEDED FOR SPASMS No current facility-administered medications for this visit. FAMILY HISTORY Problem Relation Age of Onset No Known Problems Father Coronary Artery Disease Mother PE Asthma Mother Multiple Sclerosis Mother Coronary Artery Disease Brother None Brother Coronary Artery Disease Sister Colon Cancer No Family History Anesthesia Problems No Family History Social History Tobacco Use Smoking status: Former Packs/day: 1.00 Years: 35.00 Additional pack years: 0.00 Total pack years: 35.00 Types: Cigarettes Start date: 05/29/1987 Quit date: 03/02/2023 Years since quittin.8 Smokeless tobacco: Never Vaping Use Vaping Use: Never used Substance Use Topics Alcohol use: No Drug use: No EXAM: BP 110/78 Pulse 76 Resp 16 Wt (!) 139.7 kg (308 lb) LMP 09/14/2013 SpO2 96% BMI 49.74 kg/m PHYSICAL EXAM: General Appearance: Well appearing, alert, in no acute distress, well-hydrated, well nourished.. Skin: Skin color, texture, turgor normal, no suspicious rashes or lesions. Head: Normocephalic, no masses, lesions, tenderness or abnormalities. Eyes: Anicteric sclera. Extraocular movements are intact. . Ears: Positive findings: R TM: tympanic membrane perforation (pt has hx of tympanostomy tubes), L TM: tympanic membrane perforation (pt has hx of tympanostomy tubes), moderate amount of cerumen bilaterally, L> R, erythema and edema of ear canal: on left. Oropharynx: Lips, mucosa, and tongue normal, teeth and gums normal, oropharynx normal. Lungs: Lungs clear to auscultation. No wheezing, rhonchi, rales.. Heart: RRR without murmur, gallop, or rubs. No ectopy. Extremities: No deformities, skin discoloration, clubbing or cyanosis. Good capillary refill. , Edema: non-pitting BLE, L > R. Neurologic: Gait normal. ASSESSMENT/PLAN: 1. Bilateral leg edema - ICD9: 782.3, ICD10: R60.0 (primary diagnosis) - take extra 20 mg lasix for 5 days - continue to wear compression stocking - low salt diet - elevated BLE - FUROSEMIDE 20 MG TABLET 2. Wheezing - ICD9: 786.07, ICD10: R06.2 Refill: - ALBUTEROL SULFATE 2.5 MG/3 ML (0.083 %) SOLUTION FOR NEBULIZATION 3. SOB (shortness of breath) - ICD9: 786.05, ICD10: R06.02 Refill: - ALBUTEROL SULFATE 2.5 MG/3 ML (0.083 %) SOLUTION FOR NEBULIZATION - BUDESONIDE-FORMOTEROL HFA 160 MCG-4.5 MCG/ACTUATION AEROSOL INHALER - ATROVENT HFA 17 MCG/ACTUATION AEROSOL INHALER 4. Anxiety - ICD9: 300.00, ICD10: F41.9 Refill: - AMITRIPTYLINE 25 MG TABLET 5. Essential hypertension, benign - ICD9: 401.1, ICD10: I10 - Controlled - Recommend home blood pressure monitoring, to bring results to next visit - Encouraged sodium restriction, DASH or Mediterranean diet - Recommend regular aerobic exercise Refill: - AMLODIPINE 5 MG TABLET 6. Acute otitis externa of left ear, unspecified type - ICD9: 380.10, ICD10: H60.502 - use 4 drops in both ears BID x 7 days - CIPROFLOXACIN 0.3 %-DEXAMETHASONE 0.1 % EAR DROPS,SUSPENSION Discussed treatment plan and patient voices understanding. Patient's questions answered appropriately. Medications and potential side effects were discussed and patient voices understanding. Return to the office as scheduled or as needed for worsening/no improvement. Deloris Chavez APRN.CONTENT MANAGEMENT CONSULTANT documented in this encounterSt. [facility] History of Present illness Narrative* Haley Bagley MA - 12/23/2023 7:38 AM EDT POPULATION HEALTH NAVIGATION OUTREACH Action/FYI LVM GeswindHART MESSAGE SENTG MAMMOGRAMS HCC CLOSURE Reason for Outreach Care Gap/HCC or Scheduling Wellness Visits Care Gaps due: Breast Cancer Screening Patient Contacted: Unable or unnecessary to reach patient: Left message MyChart message sent Navigation Signature: Haley Bagley MA December 23, 2023 7:38 AM documented in this encounterSt. Mary[facility] [facility]06[facility] History of Present illness Narrative* Tito Ann APRN.CONTENT MANAGEMENT CONSULTANT - 12/12/2023 5:34 PM EDT Subjective HPI Nontoxic-appearing female presents urgent care chief complaint unilateral leg swelling. Duration ofsymptoms 4 days. Associated symptoms left lower leg swelling. Patient states right middle leg may be slightly swollen but left leg is more pronounced. It is painful over her calf. Has been using her Lasix and compression socks and then elevation this has not helped. Denies any chest pain shortness of breath pleuritic pain hemoptysis. .Patient presents with: Musculoskeletal Problem: Swelling of MIMA lower legs. (Left worse) x4 days PAST MEDICAL HISTORY Diagnosis Date Allergic rhinitis, cause unspecified BMI 45.0-49.9, adult ([facility]) 08/27/2022 Essential hypertension, benign Hypothyroidism 09/26/2015 Mixed conductive and sensorineural hearing loss TRINI on CPAP Other anxiety states Perforated tympanic membrane 03/29/2011 S/P repair of ventral hernia 09/06/2022 Synovitis and tenosynovitis, unspecified Tobacco abuse 03/23/2012 PAST SURGICAL HISTORY Procedure Laterality Date COLONOSCOPY SCRN NOT HIGH RISK 09/13/2020 EGD 10/25/2020 L'SCOPE DX W/WO BRUSHINGS/WASHINGS 09/05/2022 Dr. Guadarrama LIG/TRNSXJ FLP TUBE ABDL/VAG APPR UNI/BI Tubal ligation LX REPAIR RECURRENT VENTRAL HERNIA 09/05/2022 open, w/ mesh. Dr. Guadarrama MYRINGOTOMY ASPIR&/EUSTACHIAN TUBE NFLTJ ANES Myringotomy/tubes NEUROPLASTY &/TRANSPOS MEDIAN NRV CARPAL TUNNE Bilateral 01/15/2019 Bilateral carpal tunnel release REDUCTION OF LARGE BREAST 04/23/2016 STEREOTACT BREAST BX EA LESION PC 09/30/2018 left stereotactic breast biopsy w/vacuum assisted core needle biopsy, specimen radiograph and marker placement ALLERGIES Doxycycline Monohydrate, Hctz [Amiloride-Hydrochlorothiazide], Levaquin [Levofloxacin], Meloxicam, and Peanuts MEDICATIONS lisinopril (ZESTRIL) 40 mg tablet Take 1 tablet by mouth once daily. buPROPion XL (WELLBUTRIN XL) 150 mg 24 hr tablet Take 1 tablet by mouth once daily. ALPRAZolam (XANAX) 1 mg tablet Take 1 tablet by mouth two times a day as needed for up to 30 days. atorvastatin (LIPITOR) 10 mg tablet Take 1 tablet by mouth daily at bedtime. For cholesterol. benzonatate (TESSALON PERLES) 100 mg capsule Take 1-2 capsules by mouth three times a day as neededfor cough. furosemide (LASIX) 20 mg tablet Take 1 tablet by mouth once daily. citalopram (CELEXA) 40 mg tablet Take 1 tablet by mouth once daily. levothyroxine (LEVOXYL) 200 mcg tablet Take 1 tablet by mouth once daily. Take on empty stomach. For thyroid Cholecalciferol, Vitamin D3, 125 mcg (5,000 unit) cap Take 1 capsule by mouth once daily. lansoprazole (PREVACID) 15 mg capsule Take 1 capsule by mouth once daily. promethazine (PHENERGAN) 25 mg tablet Take 1 tablet by mouth every 6 hours as needed for nausea/vomiting. budesonide-formoterol (SYMBICORT) 160-4.5 mcg/actuation inhaler Inhale 2 Puffs as instructed two times a day. albuterol (PROVENTIL) 2.5 mg /3 mL (0.083 %) nebulizer solution Use 3 mL via nebulizer every 6 hours as needed for wheezing/shortness of breath. ondansetron (ZOFRAN) 4 mg tablet Take 1 tablet by mouth every 8 hours as needed for nausea/vomiting. loratadine (CLARITIN) 10 mg tablet Take 1 tablet by mouth once daily. fluticasone (FLONASE) 50 mcg/actuation nasal spray Use 2 Sprays in each nostril once daily. Rinse mouth after use. amitriptyline (ELAVIL) 25 mg tablet Take 1 tablet by mouth daily at bedtime. amLODIPine (NORVASC) 5 mg tablet take 1 tablet by mouth once daily Ipratropium (ATROVENT HFA) 17 mcg/actuation inhaler Inhale 2 Puffs as instructed every 6 hours. Nebulizer Accessories misc 1 Each as directed. Nebulizer tubing and mouth piece. faxed to dexAMETHasone (DEXASOL) 0.1 % ophthalmic solution Use 1 Drop in both eyes every 12 hours as needed.Instill 2 drops into affected ear twice daily as needed. baclofen (LIORESAL) 10 mg tablet TAKE 1/2 TO 1 TABLET BY MOUTH TWICE A DAY NEEDED FOR SPASMS CPAP autoCPAP 5-15 cmH2O, mask, tubing, filters, heated humidity, lifetime supplies. Dx: TRINI Nebulizer 1 Each as needed. NEBULIZER TUBING AND SUPPLIES. DX: CHRONIC BRONCHITIS J41.1, WHEEZING R06.2. FAX TO [employer] [phone] COMPOUNDED PRESCRIPTION Nebulizer for albuterol every fours as needed ICD: R06.2 FAMILY HISTORY Problem Relation Age of Onset No Known Problems Father Coronary Artery Disease Mother PE Asthma Mother Multiple Sclerosis Mother Coronary Artery Disease Brother None Brother Coronary Artery Disease Sister Colon Cancer No Family History Anesthesia Problems No Family History Social History Tobacco Use Smoking status: Former Packs/day: 1.00 Years: 35.00 Additional pack years: 0.00 Total pack years: 35.00 Types: Cigarettes Start date: 05/29/1987 Quit date: 03/02/2023 Years since quittin.7 Smokeless tobacco: Never Vaping Use Vaping Use: Never used Substance Use Topics Alcohol use: No Drug use: No BP 144/82 Pulse 69 Temp 36.8 C (98.3 F) Resp 16 Wt (!) 140.5 kg (309 lb 11.9 oz) LMP 09/14/2013 SpO2 95% BMI 50.02 kg/m Review of Systems Constitutional: Negative for chills, fever and malaise/fatigue. HENT: Negative for congestion, ear discharge, ear pain, sinus pain and sore throat. Eyes: Negative for blurred vision, pain, discharge and redness. Respiratory: Negative for cough, hemoptysis, sputum production, shortness of breath, wheezing and stridor. Cardiovascular: Positive for leg swelling. Negative for chest pain. Gastrointestinal: Negative for abdominal pain, diarrhea, nausea and vomiting. Musculoskeletal: Negative for myalgias. Skin: Negative for itching and rash. Neurological: Negative for dizziness and headaches. Objective Physical Exam Constitutional: General: She is not in acute distress. Appearance: She is not toxic-appearing. HENT: Head: Normocephalic. Nose: Nose normal. Eyes: Pupils: Pupils are equal, round, and reactive to light. Cardiovascular: Rate and Rhythm: Normal rate. Pulmonary: Effort: Pulmonary effort is normal. No respiratory distress. Musculoskeletal: Cervical back: Normal range of motion. Comments: Significant swelling noted of left lower leg. Right leg no swelling to be appreciated. Significant tenderness with palpation over left calf. Skin: General: Skin is warm and dry. Neurological: General: No focal deficit present. Mental Status: She is alert. ASSESSMENT/PLAN: 1. Leg swelling - ICD9: 729.81, ICD10: M79.89 Diagnosed with leg swelling. With unilateral presentation and calf tenderness recommend patient be seen the ED for ultrasound. Unable to obtain ultrasound at this point. Will be seen at [facility]. Tito Ann APRN.CONTENT MANAGEMENT CONSULTANT documented in this encounterSt. [facility]06-[facility] Telephone encounter Note * Telephone Encounter - Yuval Whiting RN - 12/12/2023 12:43 PM EDT See triage note. Phoned patient in response to her message below stating she forgot she doesn't have a car. Patient agreeable to come into tomorrow morning. [facility]06-28-[facility]24 Miscellaneous Notes* Telephone Encounter - Yuval Whiting RN - 12/12/2023 12:43 PM EDT See triage note. Phoned patient in response to her message below stating she forgot she doesn't have a car. Patient agreeable to come into EC tomorrow morning. documented in this encounterSt. [facility]06-28-[facility] Telephone encounter Note * Telephone Encounter - Yuval Whiting RN - 12/12/2023 12:21 PM EDT Protocol recommends see provider in 24 hours. Patient reports left leg swollen from knee to foot, for about 4 days. Swelling is moderate. Non pitting. Mild pain. No open appts. Patient agreeable to EC for evaluation. Reason for Disposition [1] MODERATE leg swelling (e.g., swelling extends up to knees) AND [2] new-onset or worsening Answer Assessment - Initial Assessment Questions 1. ONSET: 4 days ago left leg started swelling. 2. LOCATION: Only left leg, from knee to foot. 3. SEVERITY: Moderate. Non pitting. Sometimes goes down with rest and elevate. 4. REDNESS: No 5. PAIN: Mild pain. Was having pins and needle feelings in both lower legs prior to the swelling, but that went away. The right leg is not swollen. Does not hurt to touch. Sleeps in a reclining chaird/t back problems. Wearing compression socks for about 3 days on both legs. They have been helping. 6. FEVER: No 7. CAUSE: No idea 8. MEDICAL HISTORY: No hx blood clots. No hx of cancer. No hx heart failure. No hx kidney disease. No hx liver failure. Has hx of leg swelling from time to time. 9. RECURRENT SYMPTOM: Last episode was months ago- elevating helped it go away. 10. OTHER SYMPTOMS: No other symptoms. 11. : No. Post menopause. Protocols used: Leg Swelling and [id number]-UB [facility]06-28-2024 Miscellaneous Notes* Telephone Encounter - Yuval Whiting RN - 12/12/2023 12:21 PM EDT Protocol recommends see provider in 24 hours. Patient reports left leg swollen from knee to foot, for about 4 days. Swelling is moderate. Non pitting. Mild pain. No open appts. Patient agreeable to EC for evaluation. Reason for Disposition [1] MODERATE leg swelling (e.g., swelling extends up to knees) AND [2] new-onset or worsening Answer Assessment - Initial Assessment Questions 1. ONSET: 4 days ago left leg started swelling. 2. LOCATION: Only left leg, from knee to foot. 3. SEVERITY: Moderate. Non pitting. Sometimes goes down with rest and elevate. 4. REDNESS: No 5. PAIN: Mild pain. Was having pins and needle feelings in both lower legs prior to the swelling, but that went away. The right leg is not swollen. Does not hurt to touch. Sleeps in a reclining chaird/t back problems. Wearing compression socks for about 3 days on both legs. They have been helping. 6. FEVER: No 7. CAUSE: No idea 8. MEDICAL HISTORY: No hx blood clots. No hx of cancer. No hx heart failure. No hx kidney disease. No hx liver failure. Has hx of leg swelling from time to time. 9. RECURRENT SYMPTOM: Last episode was months ago- elevating helped it go away. 10. OTHER SYMPTOMS: No other symptoms. 11. : No. Post menopause. Protocols used: Leg Swelling and Sdlov-[id number]-VA documented in this encounterSt. Mary'[facility]06-[facility] Telephone encounter Note * Telephone Encounter - Donald Hawkins RN - 12/08/2023 12:29 PM EDT Updated order for O2 concentrator faxed to # [phone]. Had to find updated fax number, the one given would not go through. [facility]06-24-[facility] Miscellaneous Notes* Telephone Encounter - Donald Hawkins RN - 12/08/2023 12:29 PM EDT Updated order for O2 concentrator faxed to # [phone]. Had to find updated fax number, the one given would not go through. * Telephone Encounter - Deloris Chavez APRN.CNP - 12/08/2023 12:24 PM EDT Order placed. Fax back, as requested. Deloris Chavez APRN.KHURRAM * Telephone Encounter - Donald Hawkins RN - 12/08/2023 12:04 PM EDT Shanta with [facility] reports they received and order for a portable O2 concentrator. She reports they need it to be updated. She said it can say the continue O2 2L with activity, but they also need it to say, titrate to maintain sats above 90%. She states this can be added under the comments section. Once changed please fax back to # [phone]. documented in this encounterSt. Mary'[facility]06-[facility] Telephone encounter Note * Telephone Encounter - Deloris Chavez APRN.CNP - 12/08/2023 12:24 PM EDT Order placed. Fax back, as requested. Deloris Chavez APRN.KHURRAM [facility]06-24-[facility] Telephone encounter Note* Telephone Encounter - Ramona Nelson LPN - 12/08/2023 12:07 PM EDT [facility]-11/12/23 Labs-11/12/23 NOV-02/17/[address] [facility]06-24-2024 Miscellaneous Notes* Telephone Encounter - Ramona Nelson LPN - 12/08/2023 12:07 PM EDT [facility]-11/12/23 Labs-11/12/23Apr-02/17/24 Ramona Nelson LPN documented in this encounterSt. Mary'[facility]06-[facility] Telephone encounter Note * Telephone Encounter - Donald Hawkins RN - 12/08/2023 12:04 PM EDT Shanta with [facility] reports they received and order for a portable O2 concentrator. She reports they need it to be updated. She said it can say the continue O2 2L with activity, but they also need it to say, titrate to maintain sats above 90%. She states this can be added under the comments section. Once changed please fax back to # [phone]. [facility]06-[facility] Telephone encounter Note* Telephone Encounter - Ramona Nelson LPN - 12/06/2023 8:21 AM EDT [facility]-11/12/23 Labs-12/03/23Apr-02/17/[address] [facility]06-22-2024 Miscellaneous Notes* Telephone Encounter - Ramona Nelson LPN - 12/06/2023 8:21 AM EDT [facility]-11/12/23 Labs-12/03/23Apr-02/17/24 Ramona Nelson LPN documented in this encounterSt. Mary[facility]06[facility] Telephone encounter Note * Telephone Encounter - Ramona Nelson LPN - 12/06/2023 8:17 AM EDT [facility]-11/12/23 Labs-12/03/23Apr-02/17/[address] [facility]06-22-2024 Miscellaneous Notes* Telephone Encounter - Ramona Nelson LPN - 12/06/2023 8:17 AM EDT [facility]-11/12/23 Labs-12/03/23Apr-02/17/24 Ramona Nelson LPN documented in this encounterSt. Mary[facility]06[facility] Telephone encounter Note * Telephone Encounter - Ramona Nelson LPN - 12/01/2023 9:18 AM EDT [facility]-11/12/23 Labs-11/12/23Apr-02/17/[address] [facility]06-17-2024 Miscellaneous Notes* Telephone Encounter - Ramona Nelson LPN - 12/01/2023 9:18 AM EDT [facility]-11/12/23 Labs-11/12/23Apr-02/17/24 Ramona Nelson LPN documented in this encounterSt. Mary'[facility]05[facility] Telephone encounter Note * Telephone Encounter - Donald Hawkins RN - 11/14/2023 3:24 PM EDT Pt called and is notified of providers results and instructions. Pt voices understanding. Donald Hawkins RN [facility]05-31-2024 Miscellaneous Notes* Telephone Encounter - Donald Hawkins, RN - 11/14/2023 3:24 PM EDT Pt called and is notified of providers results and instructions. Pt voices understanding. Donald Hawkins, RN * Telephone Encounter - Deloris Chavez APRN.CNP - 11/14/2023 3:16 PM EDT Can we please let patient know that I received her labs. Overall, all looked good. Her white blood count was just minimally elevated. Her alk phos was also just minimally elevated. Lets have her repeat these in 2-4 weeks to ensure they are stable. Deloris Chavez APRN.CNP documented in this encounterSt. Mary'[facility]05-[facility]-2024 Telephone encounter Note * Telephone Encounter - Deloris Chavez APRN.CNP - 11/14/2023 3:16 PM EDT Can we please let patient know that I received her labs. Overall, all looked good. Her white blood count was just minimally elevated. Her alk phos was also just minimally elevated. Lets have her repeat these in 2-4 weeks to ensure they are stable. Deloris Chavez APRN.CNP [facility]05-29-2024 Instructions* Patient Instructions* Majo Guzman - 11/12/2023 9:53 AM EDT Continue current medications Get lab work Schedule appointment in 3 months Let us know if you need anything in the meantime! documented in this encounterSt. Mary'[facility]05-[facility] History of Present illness Narrative* Deloris Chavez APRN.CNP - 11/12/2023 9:08 AM EDT This is a 62 year old female who presents today with: Patient presents with: Recheck: Medication review HISTORY OF PRESENT ILLNESS: Santy Raza is a 62 year old female. Patient presents with: Recheck: Medication review Pt presents with medication follow up. HTN: Patient is compliant with meds Yes Monitors bp at home: No. Pt will be picking up home BP machine from pharmacy. Denies side effects: No. Chest pain: No. Dyspnea: Yes. SOB with exertion Edema: No. Palpitations: No. Syncope: No. Headache: No. Dizziness: No. HYPERLIPIDEMIA: Patient is taking medications: Yes. Patient is watching diet: No. Patient denies myalgias: No. Patient denies gi upset: No Mood/anxiety: - Pt noticing moderate anxiety sometimes when out in public, felt hot and shaky. - currently taking wellbutrin, amitriptyline, and celexa scheduled and xanax prn - pt states takes xanax about 2-3 times a week GERD: - Pt feels that GERD is controlled with Prevacid - Pt avoiding food that triggers acid reflux. Tobacco: - pt currently smoking cigarettes about 8 weeks ago - currently smokes about a half a pack daily - stress at home triggers wanting a cigarette - pt cares for ex- at home which causes stress - pt not interested in smoking cessation information at this time HYPOTHYROID: Patient is compliant with medications: Yes Patient has changes in energy: No Patient has changes in hair or skin: No Patient has temperature intolerance: No Patient has weight changes: Yes, weight gain in the last year. Chronic pain: - Pt sees pain mgmt for chronic back pain - Pt had an injection with pain mgmt last week, feels improvements - Pt taking tramadol prn, usually at night - Pt noticing headaches in the morning after taking the medication. - Pt also using heat and cold therapy - Pt educated on risks of taking tramadol and xanax together TRINI: - Pt using CPAP at night occasionally - Pt does notice symptoms of TRINI when not using mask (waking up gasping for air) - Pt does feel some anxiety with mask - Pt sometimes uses O2 HS instead of CPAP - Pt has nebulizer and home O2 prn - Pt uses nebulizer 2-3x per week - Pt uses home O2 2-3x per week PAST MEDICAL HISTORY: PAST MEDICAL HISTORY Diagnosis Date Allergic rhinitis, cause unspecified BMI 45.0-49.9, adult ([facility]) 08/27/2022 Essential hypertension, benign Hypothyroidism 09/26/2015 Mixed conductive and sensorineural hearing loss TRINI on CPAP Other anxiety states Perforated tympanic membrane 03/29/2011 S/P repair of ventral hernia 09/06/2022 Synovitis and tenosynovitis, unspecified Tobacco abuse 03/23/2012 PAST SURGICAL HISTORY Procedure Laterality Date COLONOSCOPY SCRN NOT HIGH RISK 09/13/2020 EGD 10/25/2020 L'SCOPE DX W/WO BRUSHINGS/WASHINGS 09/05/2022 Dr. Guadarrama LIG/TRNSXJ FLP TUBE ABDL/VAG APPR UNI/BI Tubal ligation LX REPAIR RECURRENT VENTRAL HERNIA 09/05/2022 open, w/ mesh. Dr. Guadarrama MYRINGOTOMY ASPIR&/EUSTACHIAN TUBE NFLTJ ANES Myringotomy/tubes NEUROPLASTY &/TRANSPOS MEDIAN NRV CARPAL TUNNE Bilateral 01/15/2019 Bilateral carpal tunnel release REDUCTION OF LARGE BREAST 04/23/2016 STEREOTACT BREAST BX EA LESION PC 09/30/2018 left stereotactic breast biopsy w/vacuum assisted core needle biopsy, specimen radiograph and marker placement ALLERGIES Doxycycline Monohydrate, Hctz [Amiloride-Hydrochlorothiazide], Levaquin [Levofloxacin], Meloxicam, and Peanuts MEDICATIONS Current Outpatient Medications Medication Sig benzonatate (TESSALON PERLES) 100 mg capsule Take 1-2 capsules by mouth three times a day as neededfor cough. ALPRAZolam (XANAX) 1 mg tablet Take 1 tablet by mouth once daily as needed for anxiety for up to 30days. citalopram (CELEXA) 40 mg tablet Take 1 tablet by mouth once daily. levothyroxine (LEVOXYL) 200 mcg tablet Take 1 tablet by mouth once daily. Take on empty stomach. For thyroid Cholecalciferol, Vitamin D3, 125 mcg (5,000 unit) cap Take 1 capsule by mouth once daily. lisinopril (ZESTRIL) 40 mg tablet Take 1 tablet by mouth once daily. lansoprazole (PREVACID) 15 mg capsule Take 1 capsule by mouth once daily. promethazine (PHENERGAN) 25 mg tablet Take 1 tablet by mouth every 6 hours as needed for nausea/vomiting. budesonide-formoterol (SYMBICORT) 160-4.5 mcg/actuation inhaler Inhale 2 Puffs as instructed two times a day. albuterol (PROVENTIL) 2.5 mg /3 mL (0.083 %) nebulizer solution Use 3 mL via nebulizer every 6 hours as needed for wheezing/shortness of breath. ondansetron (ZOFRAN) 4 mg tablet Take 1 tablet by mouth every 8 hours as needed for nausea/vomiting. loratadine (CLARITIN) 10 mg tablet Take 1 tablet by mouth once daily. buPROPion XL (WELLBUTRIN XL) 150 mg 24 hr tablet Take 1 tablet by mouth once daily. atorvastatin (LIPITOR) 10 mg tablet take 1 tablet by mouth daily at bedtime for cholesterol fluticasone (FLONASE) 50 mcg/actuation nasal spray Use 2 Sprays in each nostril once daily. Rinse mouth after use. amitriptyline (ELAVIL) 25 mg tablet Take 1 tablet by mouth daily at bedtime. amLODIPine (NORVASC) 5 mg tablet take 1 tablet by mouth once daily furosemide (LASIX) 20 mg tablet Take 1 tablet by mouth once daily. Ipratropium (ATROVENT HFA) 17 mcg/actuation inhaler Inhale 2 Puffs as instructed every 6 hours. Nebulizer Accessories misc 1 Each as directed. Nebulizer tubing and mouth piece. faxed to dexAMETHasone (DEXASOL) 0.1 % ophthalmic solution Use 1 Drop in both eyes every 12 hours as needed.Instill 2 drops into affected ear twice daily as needed. baclofen (LIORESAL) 10 mg tablet TAKE 1/2 TO 1 TABLET BY MOUTH TWICE A DAY NEEDED FOR SPASMS CPAP autoCPAP 5-15 cmH2O, mask, tubing, filters, heated humidity, lifetime supplies. Dx: TRINI Nebulizer 1 Each as needed. NEBULIZER TUBING AND SUPPLIES. DX: CHRONIC BRONCHITIS J41.1, WHEEZING R06.2. FAX TO [employer] [phone] COMPOUNDED PRESCRIPTION Nebulizer for albuterol every fours as needed ICD: R06.2 No current facility-administered medications for this visit. FAMILY HISTORY Problem Relation Age of Onset No Known Problems Father Coronary Artery Disease Mother PE Asthma Mother Multiple Sclerosis Mother Coronary Artery Disease Brother None Brother Coronary Artery Disease Sister Colon Cancer No Family History Anesthesia Problems No Family History Social History Tobacco Use Smoking status: Former Packs/day: 1.00 Years: 35.00 Additional pack years: 0.00 Total pack years: 35.00 Types: Cigarettes Start date: 05/29/1987 Quit date: 03/02/2023 Years since quittin.6 Smokeless tobacco: Never Vaping Use Vaping Use: Never used Substance Use Topics Alcohol use: No Drug use: No EXAM: BP 128/82 Pulse 81 Resp 16 Wt (!) 136.5 kg (301 lb) LMP 09/14/2013 SpO2 92% BMI 48.61 kg/m PHYSICAL EXAM: General Appearance: Well appearing, alert, in no acute distress, well-hydrated, well nourished.. Skin: Skin color, texture, turgor normal, no suspicious rashes or lesions. Head: Normocephalic, no masses, lesions, tenderness or abnormalities. Eyes: Anicteric sclera. Extraocular movements are intact. . Lungs: Diminished lung sounds to auscultation. No wheezing, rhonchi, rales.. Heart: RRR without murmur, gallop, or rubs. No ectopy. Extremities: No deformities, skin discoloration, clubbing or cyanosis. Good capillary refill. Non-pitting edema BLE. Neurologic: Gait normal. ASSESSMENT/PLAN: 1. Essential hypertension, benign - ICD9: 401.1, ICD10: I10 (primary diagnosis) - Controlled - Continue current medications - Recommend home blood pressure monitoring, to bring results to next visit - Encouraged sodium restriction, DASH or Mediterranean diet - Recommend regular aerobic exercise - COMPLETE BLOOD COUNT AND DIFFERENTIAL - COMPREHENSIVE METABOLIC PANEL 2. Prediabetes - ICD9: 790.29, ICD10: R73.03 - HEMOGLOBIN A1C 3. Hyperlipidemia LDL goal <130 - ICD9: 272.4, ICD10: E78.5 - Controlled - Continue current medications - Counseled on healthy diet and regular exercise - COMPREHENSIVE METABOLIC PANEL - LIPID PANEL, NONFASTING 4. Generalized anxiety disorder with panic attacks - ICD9: 300.02, 300.01, ICD10: F41.1, F41.0 - pt taking citalopram 40 mg daily, bupropion 150 mg daily, and amitriptyline 25 mg HS daily. - pt taking xanax 1 mg daily prn - pt feels that anxiety is well-controlled on current medications 5. Hypothyroidism, unspecified type - ICD9: 244.9, ICD10: E03.9 - Instructed patient on importance of taking on an empty stomach either first thing in the morning or at bedtime. - continue current dose of levothyroxine 200 mcg daily - THYROID STIMULATING HORMONE 6. TRINI (obstructive sleep apnea) - ICD9: 327.23, ICD10: G47.33 - pt using CPAP occasionally overnight, feels anxious with mask. - pt does notice symptoms of TRINI when not using CPAP (waking up gasping for air) - pt will try to use home O2 HS when not able to tolerate CPAP Discussed treatment plan and patient voices understanding. Patient's questions answered appropriately. Medications and potential side effects were discussed and patient voices understanding. Return to the office as scheduled or as needed for worsening/no improvement. Deloris Chavez APRN.CNP The patient indicates understanding of these issues and agrees with the plan. documented in this encounterSt[facility] Telephone encounter Note * Telephone Encounter - Finn Leon APRN.CNP - 11/03/2023 9:58 AM EDT The following approved medication requests have been transmitted electronically. Requested Prescriptions Pending Prescriptions Disp Refills benzonatate (TESSALON PERLES) 100 mg capsule 40 capsule 1 Sig: Take 1-2 capsules by mouth three times a day as needed for cough. Finn Leon APRN.CNP [facility] Work Phone: 1(507) 564-941005-20-2024 Miscellaneous Notes* Telephone Encounter - Finn Leon APRN.CNP - 11/03/2023 9:58 AM EDT The following approved medication requests have been transmitted electronically. Requested Prescriptions Pending Prescriptions Disp Refills benzonatate (TESSALON PERLES) 100 mg capsule 40 capsule 1 Sig: Take 1-2 capsules by mouth three times a day as needed for cough. Finn Leon APRN.KHURRAM * Telephone Encounter - Jose Summers LPN - 11/03/2023 9:20 AM EDT Patient has been identified by name and date of : Yes Patient phones for refill(s): Requested Prescriptions Pending Prescriptions Disp Refills benzonatate (TESSALON PERLES) 100 mg capsule 40 capsule 1 Sig: Take 1-2 capsules by mouth three times a day as needed for cough. Date of last office visit in primary care: 09/01/2023 Date of next office visit in primary care: 11/12/2023 Please advise. Thank you. Jose Summers LPN. documented in this encounterSt. [facility] Telephone encounter Note * Telephone Encounter - Jose Summers LPN - 11/03/2023 9:20 AM EDT Patient has been identified by name and date of : Yes Patient phones for refill(s): Requested Prescriptions Pending Prescriptions Disp Refills benzonatate (TESSALON PERLES) 100 mg capsule 40 capsule 1 Sig: Take 1-2 capsules by mouth three times a day as needed for cough. Date of last office visit in primary care: 09/01/2023 Date of next office visit in primary care: 11/12/2023 Please advise. Thank you. Jose Summers LPN. [facility] Telephone encounter Note* Telephone Encounter - Juanita Wheeler RN - 10/22/2023 11:24 AM EDT Patient returns call and provider message reviewed. Patient verbalizes understanding. Yearly exam scheduled. Juanita Wheeler RN [facility]05-08-2024 Miscellaneous Notes* Telephone Encounter - uJanita Wheeler RN - 10/22/2023 11:24 AM EDT Patient returns call and provider message reviewed. Patient verbalizes understanding. Yearly exam scheduled. Juanita Wheeler RN * Telephone Encounter - Ramona Gifford RN - 10/22/2023 9:46 AM EDT Called and left a voicemail for the patient to call back and ask for a nurse to receive the providers message. Pt also needs set up for appt for yearly physical * Telephone Encounter - Deloris Chavez APRN.CNP - 10/22/2023 8:50 AM EDT Can please let patient know that I refilled her xanax. I can see that she has been getting tramadol, as well. Please remind patient to not use these medications simultaneously. Deloris Chavez APRN.KHURRAM * Telephone Encounter - Yuliet Syed OCCA - 10/22/2023 7:33 AM EDT Patient has been identified by name and date of : Yes Patient phones for refill(s): Requested Prescriptions Pending Prescriptions Disp Refills ALPRAZolam (XANAX) 1 mg tablet 30 tablet 0 Sig: Take 1 tablet by mouth once daily as needed for anxiety for up to 30 days. Date of last office visit in primary care: 09/01/2023 Date of next office visit in primary care: Visit date not found Please advise. Thank you. KOFI Chong. documented in this encounterSt. [facility] [facility] Telephone encounter Note * Telephone Encounter - Ramona Gifford RN - 10/22/2023 9:46 AM EDT Called and left a voicemail for the patient to call back and ask for a nurse to receive the providers message. Pt also needs set up for appt for yearly physical [facility]05-08-2024 Telephone encounter Note* Telephone Encounter - Deloris Chavez APRN.CNP - 10/22/2023 8:50 AM EDT Can please let patient know that I refilled her xanax. I can see that she has been getting tramadol, as well. Please remind patient to not use these medications simultaneously. Deloris Chavez APRN.CONTENT MANAGEMENT CONSULTANT [facility] Telephone encounter Note* Telephone Encounter - Yuliet Syed OCCA - 10/22/2023 7:33 AM EDT Patient has been identified by name and date of : Yes Patient phones for refill(s): Requested Prescriptions Pending Prescriptions Disp Refills ALPRAZolam (XANAX) 1 mg tablet 30 tablet 0 Sig: Take 1 tablet by mouth once daily as needed for anxiety for up to 30 days. Date of last office visit in primary care: 09/01/2023 Date of next office visit in primary care: Visit date not found Please advise. Thank you. KOFI Chong. [facility]04-22-20[facility] Telephone encounter Note* Telephone Encounter - Jose Summers LPN - 10/06/2023 8:48 AM EDT Patient has been identified by name and date of : Yes Patient phones for refill(s): Requested Prescriptions Pending Prescriptions Disp Refills levothyroxine (LEVOXYL) 200 mcg tablet 30 tablet 11 Sig: Take 1 tablet by mouth once daily. Take on empty stomach. For thyroid Date of last office visit in primary care: 09/01/23 Date of next office visit in primary care: Visit date not found Please advise. Thank you. Jose Summers LPN. [facility]04[facility] Miscellaneous Notes* Telephone Encounter - Jose Summers LPN - 10/06/2023 8:48 AM EDT Patient has been identified by name and date of : Yes Patient phones for refill(s): Requested Prescriptions Pending Prescriptions Disp Refills levothyroxine (LEVOXYL) 200 mcg tablet 30 tablet 11 Sig: Take 1 tablet by mouth once daily. Take on empty stomach. For thyroid Date of last office visit in primary care: 09/01/23 Date of next office visit in primary care: Visit date not found Please advise. Thank you. Jose Summers LPN. documented in this encounterSt. [facility] Telephone encounter Note * Telephone Encounter - Shanta Johnston MA - 10/06/2023 8:42 AM EDT Patient has been identified by name and date of : Yes, Provider Haagen Date 10/06/23 Time 8:42am Patient phones for refill(s): Requested Prescriptions Pending Prescriptions Disp Refills citalopram (CELEXA) 40 mg tablet 30 tablet 5 Sig: Take 1 tablet by mouth once daily. Date of last office visit in primary care: 09/01/2023 Date of next office visit in primary care: Visit date not found Please advise. Thank you. Shanta Johnston MA. [facility]04-22-2024 Miscellaneous Notes* Telephone Encounter - Shanta Johnston MA - 10/06/2023 8:42 AM EDT Patient has been identified by name and date of : Yes, Provider Scott Date 10/06/23 Time 8:42am Patient phones for refill(s): Requested Prescriptions Pending Prescriptions Disp Refills citalopram (CELEXA) 40 mg tablet 30 tablet 5 Sig: Take 1 tablet by mouth once daily. Date of last office visit in primary care: 09/01/2023 Date of next office visit in primary care: Visit date not found Please advise. Thank you. Shanta Johnston MA. documented in this encounterSt. [facility] [facility]04[facility] Miscellaneous Notes* Telephone Encounter - Jose Summers LPN - 09/15/2023 9:22 AM EDT Patient has been identified by name and date of : Yes Patient phones for refill(s): Requested Prescriptions Pending Prescriptions Disp Refills Cholecalciferol, Vitamin D3, 125 mcg (5,000 unit) cap 30 capsule 11 Sig: Take 1 capsule by mouth once daily. Date of last office visit in primary care: 09/01/2023 Date of next office visit in primary care: Visit date not found Please advise. Thank you. Jose Summers LPN. documented in this encounterSt. [facility]04[facility] Miscellaneous Notes* Telephone Encounter - Jose Summers LPN - 09/15/2023 8:42 AM EDT Patient has been identified by name and date of : Yes Patient phones for refill(s): Requested Prescriptions Pending Prescriptions Disp Refills ALPRAZolam (XANAX) 1 mg tablet 30 tablet 0 Sig: Take 1 tablet by mouth once daily as needed for anxiety for up to 30 days. Date of last office visit in primary care: 09/01/2023 Date of next office visit in primary care: Visit date not found Please advise. Thank you. Jose Summers LPN. documented in this encounterSt. [facility]03[facility] Miscellaneous Notes* Telephone Encounter - Kathy Bustamante APRN.CNS - 09/05/2023 9:34 AM EDT Lisinopril renewed * Telephone Encounter - Ramona Nelson LPN - 09/05/2023 7:47 AM EDT SABA-09/01/23 Labs-01/15/23 NOV-none Ramona Nelson LPN documented in this encounterSt. Mary'[facility]03-[facility] Instructions* Patient Instructions* Deloris Chavez APRN.CNP - 09/01/2023 8:33 AM EDT Follow-up with the assayer helper for stress testing, as directed. Follow-up with Gareth Domingo, as planned. Schedule w/ ortho. documented in this encounterSt. Mary[facility]03-[facility]-2024 Miscellaneous Notes* Telephone Encounter - Jose Summers LPN - 09/01/2023 8:22 AM EDT Discuss at OV today. Jose Summers LPN * Telephone Encounter - Deloris Chavez APRN.CNP - 08/27/2023 6:26 PM EDT I would plan on following up at her upcoming appt. We probably should look at it again since it hasbeen a few weeks. Is she using compression to the area? * Telephone Encounter - Jose Summers LPN - 08/27/2023 11:20 AM EDT See message- pt seen in on 08/06/23. Ok to place referral for Ortho? Or discuss at upcoming hospital follow up appt on 09/01/23? documented in this encounterSt. Mary[facility]03[facility] History of Present illness Narrative* Deloris Chavez APRN.CONTENT MANAGEMENT CONSULTANT - 09/01/2023 8:19 AM EDT This is a 62 year old female who presents today with: Patient presents with: Hospital Follow Up: [facility] follow up dc'd 08/24/23 dx: chest pain HISTORY OF PRESENT ILLNESS: Santy Raza is a 62 year old female. Patient presents with: Hospital Follow Up: [facility] follow up dc'd 08/24/23 dx: chest pain Was in the ER on 08/23/23. Was [place] a friend in [place] and started some chest tightness. Then began radiating to the back and posterior neck. Didn't feel like it was her heart. Refers that she would have something similar int he past, but would resolve after a breathing treatment. Pain was reproducible on exam. Troponins were negative. Chest x-ray was negative for pneumonia. CT was negative for PE. Echocardiogram showed EF of 65 to 70%. LV wall thickness mildly increased. No regional wall motion abnormalities. LA mildly dilated. She was scheduled for follow-up with cardiology in 1 week for outpatient stress testing. [facility] Advised to apply heat and ice 3 times daily to the area. And upper body rest for 1 week. Also complaints of continued right elbow swelling. Went to urgent care. They applied compression, but caused skin reaction. Right elbow olecranon bursitis. Has been there for a few weeks. Not improving. Not painful, but uncomfortable. No redness or increased warmth. Denies injury to the elbow or excessive pressure to the elbow. Would like to see ortho to have drained. PAST MEDICAL HISTORY: PAST MEDICAL HISTORY Diagnosis Date Allergic rhinitis, cause unspecified BMI 45.0-49.9, adult ([facility]) 08/27/2022 Essential hypertension, benign Hypothyroidism 09/26/2015 Mixed conductive and sensorineural hearing loss TRINI on CPAP Other anxiety states Perforated tympanic membrane 03/29/2011 S/P repair of ventral hernia 09/06/2022 Synovitis and tenosynovitis, unspecified Tobacco abuse 03/23/2012 PAST SURGICAL HISTORY Procedure Laterality Date COLONOSCOPY SCRN NOT HIGH RISK 09/13/2020 EGD 10/25/2020 L'SCOPE DX W/WO BRUSHINGS/WASHINGS 09/05/2022 Dr. Guadarrama LIG/TRNSXJ FLP TUBE ABDL/VAG APPR UNI/BI Tubal ligation LX REPAIR RECURRENT VENTRAL HERNIA 09/05/2022 open, w/ mesh. Dr. Guadarrama MYRINGOTOMY ASPIR&/EUSTACHIAN TUBE NFLTJ ANES Myringotomy/tubes NEUROPLASTY &/TRANSPOS MEDIAN NRV CARPAL TUNNE Bilateral 01/15/2019 Bilateral carpal tunnel release REDUCTION OF LARGE BREAST 04/23/2016 STEREOTACT BREAST BX EA LESION PC 09/30/2018 left stereotactic breast biopsy w/vacuum assisted core needle biopsy, specimen radiograph and marker placement ALLERGIES Doxycycline Monohydrate, Hctz [Amiloride-Hydrochlorothiazide], Levaquin [Levofloxacin], Meloxicam, and Peanuts MEDICATIONS Current Outpatient Medications Medication Sig lansoprazole (PREVACID) 15 mg capsule Take 1 capsule by mouth once daily. ALPRAZolam (XANAX) 1 mg tablet Take 1 tablet by mouth once daily as needed for anxiety for up to 30days. promethazine (PHENERGAN) 25 mg tablet Take 1 tablet by mouth every 6 hours as needed for nausea/vomiting. budesonide-formoterol (SYMBICORT) 160-4.5 mcg/actuation inhaler Inhale 2 Puffs as instructed two times a day. benzonatate (TESSALON PERLES) 100 mg capsule Take 1-2 capsules by mouth three times a day as neededfor cough. ondansetron orally disintegrating (ZOFRAN ODT) 4 mg disintegrating tablet Take 1 tablet by mouth every 8 hours as needed for nausea/vomiting. citalopram (CELEXA) 40 mg tablet Take 1 tablet by mouth once daily. albuterol (PROVENTIL) 2.5 mg /3 mL (0.083 %) nebulizer solution Use 3 mL via nebulizer every 6 hours as needed for wheezing/shortness of breath. ondansetron (ZOFRAN) 4 mg tablet Take 1 tablet by mouth every 8 hours as needed for nausea/vomiting. loratadine (CLARITIN) 10 mg tablet Take 1 tablet by mouth once daily. buPROPion XL (WELLBUTRIN XL) 150 mg 24 hr tablet Take 1 tablet by mouth once daily. atorvastatin (LIPITOR) 10 mg tablet take 1 tablet by mouth daily at bedtime for cholesterol fluticasone (FLONASE) 50 mcg/actuation nasal spray Use 2 Sprays in each nostril once daily. Rinse mouth after use. levothyroxine (LEVOXYL) 200 mcg tablet Take 1 tablet by mouth once daily. Take on empty stomach. For thyroid amitriptyline (ELAVIL) 25 mg tablet Take 1 tablet by mouth daily at bedtime. amLODIPine (NORVASC) 5 mg tablet take 1 tablet by mouth once daily Cholecalciferol, Vitamin D3, 125 mcg (5,000 unit) cap Take 1 capsule by mouth once daily. lisinopril (ZESTRIL) 40 mg tablet Take 1 tablet by mouth once daily. furosemide (LASIX) 20 mg tablet Take 1 tablet by mouth once daily. Ipratropium (ATROVENT HFA) 17 mcg/actuation inhaler Inhale 2 Puffs as instructed every 6 hours. Nebulizer Accessories misc 1 Each as directed. Nebulizer tubing and mouth piece. faxed to dexAMETHasone (DEXASOL) 0.1 % ophthalmic solution Use 1 Drop in both eyes every 12 hours as needed.Instill 2 drops into affected ear twice daily as needed. baclofen (LIORESAL) 10 mg tablet TAKE 1/2 TO 1 TABLET BY MOUTH TWICE A DAY NEEDED FOR SPASMS CPAP autoCPAP 5-15 cmH2O, mask, tubing, filters, heated humidity, lifetime supplies. Dx: TRINI Nebulizer 1 Each as needed. NEBULIZER TUBING AND SUPPLIES. DX: CHRONIC BRONCHITIS J41.1, WHEEZING R06.2. FAX TO [employer] [phone] COMPOUNDED PRESCRIPTION Nebulizer for albuterol every fours as needed ICD: R06.2 No current facility-administered medications for this visit. FAMILY HISTORY Problem Relation Age of Onset No Known Problems Father Coronary Artery Disease Mother PE Asthma Mother Multiple Sclerosis Mother Coronary Artery Disease Brother None Brother Coronary Artery Disease Sister Colon Cancer No Family History Anesthesia Problems No Family History Social History Tobacco Use Smoking status: Former Packs/day: 1.00 Years: 35.00 Additional pack years: 0.00 Total pack years: 35.00 Types: Cigarettes Start date: 05/29/1987 Quit date: 03/02/2023 Years since quittin.5 Smokeless tobacco: Never Vaping Use Vaping Use: Never used Substance Use Topics Alcohol use: No Drug use: No EXAM: BP 122/74 Pulse 91 Resp 16 LMP 09/14/2013 SpO2 93% PHYSICAL EXAM: General Appearance: Well appearing, alert, in no acute distress, well-hydrated, well nourished.. Skin: Skin color, texture, turgor normal, no suspicious rashes or lesions. Head: Normocephalic, no masses, lesions, tenderness or abnormalities. Eyes: Anicteric sclera. Pupils are equally round and reactive to light. Extraocular movements are intact. . Lungs: Lungs clear to auscultation. No wheezing, rhonchi, rales.. Heart: RRR without murmur, gallop, or rubs. No ectopy. Extremities: Positive findings: Olecranon bursitis on right. No redness or increased warmth. Neurologic: Gait normal. ASSESSMENT/PLAN: 1. Discomfort of chest wall - ICD9: 786.52, ICD10: R07.89 (primary diagnosis) She had a negative cardiac work-up at [facility]. Has appt to follow-up w/ cardiology. No further episodes. 2. Olecranon bursitis of right elbow - ICD9: 726.33, ICD10: M70.21 Encouraged to apply compression and limit resting on elbows. Notify provider if she develops redness or increased warmth. - CONSULT TO ORTHOPAEDICS Discussed treatment plan and patient voices understanding. Patient's questions answered appropriately. Medications and potential side effects were discussed and patient voices understanding. Return to the office as scheduled or as needed for worsening/no improvement. Deloris Chavez APRN.CONTENT MANAGEMENT CONSULTANT documented in this encounterSt. [facility] Hospital Discharge instructions Patient Education 08/24/2023 17:40:47 Exercise Stress Test Exercise Stress Test An exercise stress test is a test that is done to collect information about how your heart functions during exercise. The test is done while you are walking on a treadmill or using an exercise bike. The goal is to raise your heart rate and stress the heart. The heart is evaluated before, during, and after you exercise. An electrocardiogram (ECG) will be used to monitor the heart, and your bloodpressure will also be monitored. In some cases, nuclear scanning or an ultrasound of the heart (echocardiogram) will also be done to evaluate your heart. An exercise stress test is done to look for coronary artery disease (CAD). The test may also be done to: Evaluate your limits of exercise during cardiac rehabilitation. Check for high blood pressure during exercise. Check how well you can exercise after such treatments as coronary stenting or new medicines. Check for problems with blood flow to your arms and legs during exercise. If you have an abnormal test result, this may mean that you are not getting enough blood flow to your heart during exercise. More testing may be needed to understand why your test was not normal. Tell a health care provider about: Any allergies you have. All medicines you are taking, including vitamins, herbs, eye drops, creams, and akyu-okm-nyjahxc medicines. Any blood disorders you have. Any surgeries you have had. Any medical conditions you have. Whether you are or may be . What are the risks? Generally, this is a safe procedure. However, problems may occur, including: Pain or pressure in the following areas: ?Chest. ?Jaw or neck. ?Between your shoulder blades. ?Down your left arm. Dizziness or lightheadedness. Shortness of breath. Increased or irregular heartbeats. Nausea or vomiting. Heart attack (rare). Life-threatening abnormal heart rhythm (rare). What happens before the procedure? Follow instructions from your health care provider about eating or drinking restrictions. ?You may be told to avoid all forms of caffeine for 24 hours before the test. This includes coffee,tea (even decaffeinated tea), caffeinated sodas, chocolate, cocoa, and certain pain medicines. Ask your health care provider about: ?Taking ztkq-ajp-srbsrqw medicines, vitamins, herbs, and supplements. ?Changing or stopping your regular medicines. This is especially important if you are taking diabetes medicines or beta-stuart medicines. ?If you have diabetes, ask how you are to take your insulin or pills. It is common to adjust your insulin dose the morning of the test. ?If you are taking beta-stuart medicines, it is important to talk to your health care provider about these medicines well before the date of your test. Taking beta-stuart medicines may interfere with the test. In some cases, these medicines may need to be changed or stopped 24 hours or more before the test. ?If you wear a nitroglycerin patch, it may need to be removed prior to the test. Ask your health care provider if the patch should be removed before the test. If you use an inhaler for any breathing condition, bring it with you to the test. Do not apply lotions, powders, creams, or oils on your chest prior to the test. Wear loose-fitting clothes and comfortable walking shoes. Do not use any products that contain nicotine or tobacco, such as cigarettes and e-cigarettes, for 4 hours before the test or as told by your health care provider. If you need help quitting, ask yourhealth care provider. What happens during the procedure? Multiple electrodes will be attached to your chest. Multiple wires will be attached to the electrodes. These will transfer the electrical impulses fromyour heart to the ECG machine. Your heart will be monitored both at rest and while exercising. If you are also having an echocardiogram or nuclear scanning, images of your heart will be taken before and after you exercise. A blood pressure cuff will be placed around your arm to measure your blood pressure throughout the test. You will feel it tighten and loosen throughout the test. You will walk on a treadmill or use a stationary bike. If you cannot use these, you may be asked toturn a crank with your hands. You will start at a slow pace or level on the exercise machine. The exercise difficulty will be slowly increased to raise your heart rate. In the case of a treadmill, the speed and incline will gradually be increased. You may be asked to periodically breathe into a tube. This measures the gases you breathe out. You will be asked how you are feeling throughout the test. You will be asked to rate your level of exertion. Tell the staff right away if you feel: ?Chest pain. ?Dizziness. ?Shortness of breath. ?Too fatigued to continue. ?Pain or aching in your legs or arms. You will exercise until you have symptoms or until you reach a target heart rate. The test will also be stopped if you have changes in your blood pressure or ECG readings, or if you develop an irregular heartbeat (arrhythmia). The procedure may vary among health care providers and hospitals. What happens after the procedure? You will sit down and recover from the exercise. Your blood pressure, heart rate, and ECG will be monitored until you recover. You may return to your normal schedule, including diet, activities, and medicines, unless your health care provider tells you otherwise. It is up to you to get your test results. Ask your health care provider, or the department that is doing the test, when your results will be ready. Summary An exercise stress test is a test that is done to collect information about how your heart functions during exercise. This test is done to look for coronary artery disease (CAD). During this test, you will walk on a treadmill or use an exercise bike to raise your heart rate. It is important to follow instructions from your health care provider about eating and drinking restrictions before the test. This may include avoiding caffeine and certain medicines before the test. This information is not intended to replace advice given to you by your health care provider. Make sure you discuss any questions you have with your health care provider. Document Released: 05/30/2001 Document Revised: 03/05/2018 Document Reviewed: 08/06/2017 [employer] Patient Education 2020 [employer]. 08/24/2023 17:40:43 Chest Wall Pain, [id number] Chest Wall Pain Chest wall pain is pain in or around the bones and muscles of your chest. Chest wall pain may be caused by: An injury. Coughing a lot. Using your chest and arm muscles too much. Sometimes, the cause may not be known. This pain may take a few weeks or longer to get better. Follow these instructions at home: Managing pain, stiffness, and swelling If told, put ice on the painful area: Put ice in a plastic bag. Place a towel between your skin and the bag. Leave the ice on for 20 minutes, 2 3 times a day. Activity Rest as told by your doctor. Avoid doing things that cause pain. This includes lifting heavy items. Ask your doctor what activities are safe for you. General instructions Take [id number] and prescription medicines only as told by your doctor. Do not use any products that contain nicotine or tobacco, such as cigarettes, e- cigarettes, and chewing tobacco. If you need help quitting, ask your doctor. Keep all follow-up visits as told by your doctor. This is important. Contact a doctor if: You have a fever. Your chest pain gets worse. You have new symptoms. Get help right away if: You feel sick to your stomach (nauseous) or you throw up (vomit). You feel sweaty or light-headed. You have a cough with mucus from your lungs (sputum) or you cough up blood. You are short of breath. These symptoms may be an emergency. Do not wait to see if the symptoms will go away. Get medical help right away. Call your local emergency services (911 in the [place] Do not drive yourself to the hospital. Summary Chest wall pain is pain in or around the bones and muscles of your chest. It may be treated with ice, rest, and medicines. Your condition may also get better if you avoid doing things that cause pain. Contact a doctor if you have a fever, chest pain that gets worse, or new symptoms. Get help right away if you feel light-headed or you get short of breath. These symptoms may be an emergency. This information is not intended to replace advice given to you by your health care provider. Make sure you discuss any questions you have with your health care provider. Document Released: 11/18/2008 Document Revised: 12/03/2018 Document Reviewed: 12/03/2018 [employer] Patient Education 2019 [employer]. Follow Up Care 08/23/2023 22:37:18 With:DELORIS CHAVEZ APRN-CONTENT MANAGEMENT CONSULTANT Address: [address] [place] [address] [phone] When:5 to 7 days With:ALEK IRVIN MD Address: [address] [facility] [address] [facility] [place] [address] [phone] When:Within 1 Week(s) [facility] 03-10-2024 Discharge summary Date of Service 08/24/23 Discharge Diagnosis Costochondritis (M94.0 - ICD-10-CM) Dyspnea (R06.00 - ICD-10-CM) Musculoskeletal chest pain (R07.89 - ICD-10-CM) Additional Orders: Ordered: BMP,08/25/23 5:00:00 EDT, Next AM Draw (one day only), Blood, Once, Stop date 08/25/23 5:00:00 EDT Ordered: Biofreeze 3.5% topical gel,Dose = 1 johnny, Topical, BID, PRN as needed for pain, X 7 day(s),# 118 mL, 0 Refill(s), Pharmacy: [facility] #[id number], 170, cm, 08/24/23 1:29:00 EST, Height, kg, 08/24/23 1:29:00 EST, Dosing Weight Ordered: CBC,08/25/23 5:00:00 EDT, Next AM Draw (one day only), Blood, Once, Stop date 08/25/23 5:00:00 EDT Ordered: Magnesium Level,08/25/23 5:01:00 EDT, Next AM Draw (one day only), Blood, Once, Stop date 08/25/23 5:01:00 EDT Hospital Course This is a 62-year-old female with past medical history of hypertension, GERD, anxiety/depression, TRINI noncompliant with CPAP, chronic back pain, abdominal hernia status post repair 1 year ago and presumed COPD on 2 L oxygen at home who came into [facility] for chest pain, rated 5 out of 10, described as a tightness and pressure, located across the chest that radiated to her upper back and neck that occurred at rest and improved to 2/10 with nitro. Patient says pain lasted 3 to 4 hours and was constant during that time. Chest pain is reproducible on exam. She tried a breathing treatment but it did not help. Patient has never had this kind of pain before. She endorses associated shortness ofbreath, orthopnea and paroxysmal nocturnal dyspnea. Denies any palpitations, leg swelling, headache, nausea vomiting diarrhea, fevers or chills. Patient denies prior use of blood thinners and prior history of PE or DVT. Per nursing, patient received Ellsworth at [facility] ED prior to transfer to [facility] which did not improve her pain. Of note, Echo from February 2023 shows EF 60-65%, normal diastolic function. No prior stress test on record. Patient says her brother was recently diagnosed with a heart condition around age 40, patient does not know which specifically. Also says her mother of a heart attack at age 56. Patient has been in a recliner for the past 6 years. Patient recently has quit smoking 4-5 months ago, previously has been smoking 1 pack/day since age 22. Patient denies alcohol or illicit drug use. While in CCU, vitals were stable with temperature 36, heart rate 74, respiratory rate 20, blood pressure 124/69 saturating 93% on 2 L nasal cannula. Repeat labs show white count of 16 hemoglobin stable at 14 platelets 224. CMP significant for glucose of 123, potassium 4.2, creatinine 0.68, magnesium 1.8. Lactate 1.9. proBNP 14. Troponins negative x 4. Chest x-ray is negative for pneumonia. CT angio negative for PE. There is an EKG in the chart showing atrial flutter timed from 2104 on 08/23/2023,however this was not patient's EKG per ED physician at [facility]. Patient received 1 dose ofnitroglycerin in CCU and was admitted under MTS for further management. During hospital course chest x-ray was repeated which showed some mild scarring in the left lower lung zone otherwise no acute abnormalities. Echocardiogram was done which showed EF 65-70%, LV wall thickness mildly increased, no regional wall motion abnormalities. LA mildly dilated. On physical exam chest pain was reproducible on palpation which indicates musculoskeletal pain/costochondritis. Patient did have AN elevated white count likely reactive. Patient was afebrile and denied any fevers orchills. She was observed off antibiotics. Patient was risk stratified with TSH 1.534, A1c 6.2 and lipid profile showed cholesterol 145, triglycerides of 111, HDL 40, LDL 83. Patient will be discharged home on Biofreeze as she is allergic to meloxicam so Voltaren cream will not be prescribed. Advised to apply heat and ice 3 times daily to the area. She will need upper body rest for 1 week. Follow-up with assayer helper Dr. Irvin in 1 week. Need for outpatient stress test can be evaluated at that time by assayer helper. Follow-up with primary care provider in 5 to 7 days to discuss prediabetes A1c [6.2] At the time of discharge patient is hemodynamically stable. Allergies Levaquin Peanuts (itching) amiloride-hydrochlorothiazide (itching) doxycycline meloxicam (swelling, rash, itching) Consults No qualifying data available. Imaging Results and Diagnostics XR Chest 1 View Result Date: August 24, 2023 Verified By: BRANDIN SINGLETON MD CLINICAL STATEMENT: IMPRESSION: Mild scarring in left lower lung zone. No acute abnormality Physical Exam Vitals and Measurements T: 36.7 C (Oral) TMIN: 36.7 C (Oral) TMAX: 36.9 C (Oral) HR: 86(Monitored) RR: 16 BP: 127/45 SpO2: 94% HT: 170 cm WT: 139.4 kg BMI: 48.24 Weight Dosing Weight: 139.4 kg (08/24/23) General Appearance: Alert and oriented, in no acute distress. Obese female Head: Normocephalic, atraumatic EENT: PERRLA, EOMI, no oropharyngeal erythema, no tonsillar exudates, moist mucous membranes, no conjunctival injection, sclera anicteric. Neck: Supple, symmetric, no thyromegaly, no cervical lymphadenopathy, trachea midline. No carotid bruits. Cardiac: S1 and S2 normal. RRR. No murmurs, rubs, or gallops. No JVD. No Hepatojugular reflex. Lungs: Clear to auscultation bilaterally. Appropriate air entry. No increased work of breathing or diminished breath sounds. No wheezes, rhonchi, or crackles. Abdomen: Soft, nondistended, nontender. Normoactive bowel sounds. No rebound or guarding. No masses. No CVA tenderness. Musculoskeletal: Full range of motion in spine, upper and lower extremities. No joint erythema or tenderness. Extremities: No significant deformity or joint abnormality. No cyanosis, clubbing, or lower extremity pitting edema. 2+ radial and pedal pulses bilaterally in all extremities. Neurological: CN II to XII grossly intact. Strength 5/5 in bilateral upper and lower extremities. Sensation intact and symmetric. No focal neurologic deficits. Skin: Warm, dry, well-perfused. No abrasions, rashes, or hematomas visible. Psychiatric: Appropriate mood and affect, euthymic. [1] Pending Labs and Studies None Code Status No qualifying data available. Admission Date 08/24/23 Discharge Date 08/24/23 Patient Instructions You came to the hospital because you had chest pain radiating to the upper back and neck. You were given nitroglycerin for chest pain. Chest x-ray was done which was negative for pneumonia. When palpating your chest pain was reproducible meaning it is most likely musculoskeletal. 2D echocardiogram was done which was reviewed by the [employer] and unremarkable. You will need upper body rest for 1 week. You will be discharged home on Biofreeze topical gel to be used twice daily, apply ice and heat 3 times daily to your chest pain. Continue taking all your home medications. Make sure to take all your medications as prescribed. Please follow-up with your assayer helper Dr. Irvin in 1 week Please follow-up with your primary care provider in 5 to 7 days. If your symptoms recur or get worse please go to your nearest emergency department Thank you for allowing us to participate in your care. Medications New Prescription menthol topical (Biofreeze 3.5% topical gel)1 application Topical two (2) times a day as needed as needed for pain for 7 Days. Refills: 0. Unchanged albuterol (albuterol 2.5 mg/3 mL (0.083%) inhalation solution)3 Milliliter by inhalation every 6 hours as needed for wheezing. amitriptyline (amitriptyline 25 mg oral tablet)1 tab(s) by mouth daily at bedtime. amLODIPine (amLODIPine 5 mg oral tablet)1 tab(s) by mouth once a day. atorvastatin (atorvastatin 10 mg oral tablet)1 tab(s) by mouth once a day. baclofen (baclofen 10 mg oral tablet)0.5 tab(s) by mouth two (2) times a day as needed Spasm. benzonatate (benzonatate 100 mg oral capsule)1 cap by mouth three (3) times a day as needed as needed for cough for 7 Days. bifidobacterium infantis (Align 4 mg oral capsule)1 cap by mouth every day. budesonide-formoterol (Symbicort 160 mcg-4.5 mcg/inh Inhaler)2 puff(s) by inhalation two (2) times a day. buPROPion (Wellbutrin XL 150 mg/24 hours oral tablet, extended release)1 tab(s) by mouth every 24 hours. cholecalciferol (cholecalciferol 125 mcg (5000 intl units) oral capsule)1 cap by mouth once a day. ciprofloxacin-dexamethasone otic (Ciprodex 0.3%-0.1% otic suspension)2 Drops Both ears two (2) times a day as needed Control symptoms. citalopram (citalopram 40 mg oral tablet)1 tab(s) by mouth once a day. fluticasone nasal (fluticasone 50 mcg/inh NASAL spray)1 spray(s) each nostril two (2) times a day as needed Nasal congestion. furosemide (furosemide 20 mg oral tablet)1 tab(s) by mouth once a day. ipratropium (Atrovent HFA 17 mcg/inh inhalation aerosol)2 puff(s) by inhalation four (4) times a day. lansoprazole (lansoprazole 15 mg oral delayed release capsule)1 cap by mouth once a day. levothyroxine (levothyroxine 200 mcg (0.2 mg) oral tablet)1 tab(s) by mouth once a day. lisinopril (lisinopril 40 mg oral tablet)1 tab(s) by mouth once a day. loratadine (loratadine 10 mg oral capsule)1 cap by mouth once a day. Misc Medication ondansetron (ondansetron 4 mg oral tablet)1 tab(s) by mouth every 8 hours as needed Nausea/Vomiting. sacrosidase (Sucraid 8500 intl units/mL oral solution) Follow Up Follow Up with DELORIS CHAVEZ When Within 5 to 7 days Where: [address] [place] [address]- [phone] Follow Up with ALEK IRVIN MD When In 1 week Where: [address] [facility] [address] [facility] [place] [address] [phone] Follow Up Appointments No qualifying data available. Follow Up Labs/Studies Discharge Labs No Follow-up Labs Discharge Studies No Follow-up Studies Discharge Diet Discharge Diet - Ordered -- Type of Diet: Cardiac, 08/24/23 17:13:00 EDT Discharge Activity Discharge Activity - Ordered -- Activity As Tolerated, 08/24/23 17:13:00 EDT Condition on Discharge Fair Discharge Disposition Home Information Provided To Patient [1] Cardiology progress note; SHARA DENTON MD 08/24/2023 12:36 EDT Digitally Signed by SHARA DENTON MD on 08/24/2023 06:58 PM Digitally Signed by ALEK IRVIN MD [id number] History and physical note Date of Service 08/24/2023 History of Present Illness This is a 62-year-old female with past medical history of hypertension, GERD, anxiety/depression, TRINI noncompliant with CPAP, chronic back pain, abdominal hernia status post repair 1 year ago and presumed COPD on 2 L oxygen at home who came into [facility] for chest pain, rated 5 out of 10, described as a tightness and pressure, located across the chest that radiated to her upper back and neck that occurred at rest and improved to 2/10 with nitro. Patient says pain lasted 3 to 4 hours and was constant during that time. Chest pain is reproducible on exam. She tried a breathing treatment but it did not help. Patient has never had this kind of pain before. She endorses associated shortness ofbreath, orthopnea and paroxysmal nocturnal dyspnea. Denies any palpitations, leg swelling, headache, nausea vomiting diarrhea, fevers or chills. Patient denies prior use of blood thinners and prior history of PE or DVT. Per nursing, patient received Ellsworth at [facility] ED prior to transfer to [facility] which did not improve her pain. Of note, Echo from February 2023 shows EF 60-65%, normal diastolic function. No prior stress test on record. Patient says her brother was recently diagnosed with a heart condition around age 40, patient does not know which specifically. Also says her mother of a heart attack at age 56. Patient has been in a recliner for the past 6 years. Patient recently has quit smoking 4-5 months ago, previously has been smoking 1 pack/day since age 22. Patient denies alcohol or illicit drug use. While in CCU, vitals were stable with temperature 36, heart rate 74, respiratory rate 20, blood pressure 124/69 saturating 93% on 2 L nasal cannula. Repeat labs show white count of 16 hemoglobin stable at 14 platelets 224. CMP significant for glucose of 123, potassium 4.2, creatinine 0.68, magnesium 1.8. Lactate 1.9. proBNP 14. Troponins negative x 4. Chest x-ray is negative for pneumonia. CT angio negative for PE. There is an EKG in the chart showing atrial flutter timed from 2104 on 08/23/2023,however this was not patient's EKG per ED physician at [facility]. Patient received 1 dose ofnitroglycerin in CCU and was admitted under MTS for further management. Review of Systems Constitutional: Denies any acute distress Cardiovascular: Endorses chest pain Respiratory: Endorses shortness of breath. Gastrointestinal: Denies any constipation or diarrhea Genitourinary: Denies any difficulty with urination Musculoskeletal: Denies any muscle weakness Skin: Denies any rashes or lesions Neurological: Denies any confusion or loss of consciousness Psychiatric: Denies any suicidal ideation, homicidal ideation or mood changes Endocrine: Denies any fatigue, agitation or heat/cold intolerance Physical Exam Vitals and Measurements T: 36.7 C (Oral) HR: 78(Apical) RR: 20 BP: 124/69 SpO2: 93% HT: 170 cm WT: 139.4 kg BMI: 48.24 Weight Dosing Weight: 139.4 kg (08/24/23) General Appearance: Alert and oriented, in no acute distress. Obese female Head: Normocephalic, atraumatic EENT: PERRLA, EOMI, no oropharyngeal erythema, no tonsillar exudates, moist mucous membranes, no conjunctival injection, sclera anicteric. Neck: Supple, symmetric, no thyromegaly, no cervical lymphadenopathy, trachea midline. No carotid bruits. Cardiac: S1 and S2 normal. RRR. No murmurs, rubs, or gallops. No JVD. No Hepatojugular reflex. Lungs: Clear to auscultation bilaterally. Appropriate air entry. No increased work of breathing or diminished breath sounds. No wheezes, rhonchi, or crackles. Abdomen: Soft, nondistended, nontender. Normoactive bowel sounds. No rebound or guarding. No masses. No CVA tenderness. Musculoskeletal: Full range of motion in spine, upper and lower extremities. No joint erythema or tenderness. Extremities: No significant deformity or joint abnormality. No cyanosis, clubbing, or lower extremity pitting edema. 2+ radial and pedal pulses bilaterally in all extremities. Neurological: CN II to XII grossly intact. Strength 5/5 in bilateral upper and lower extremities. Sensation intact and symmetric. No focal neurologic deficits. Skin: Warm, dry, well-perfused. No abrasions, rashes, or hematomas visible. Psychiatric: Appropriate mood and affect, euthymic. Lab Results 08/23 03:32 WBC: 16.7 H Hgb: 14.8 Hct: 44.8 Platelet: 224 Neutrophil %: 77.1 H Glucose Level: 123 H Sodium Level: 137 Potassium Level: 4.2 BUN: 10.0 Creatinine Lvl (s): 0.68 Assessment/Plan Chest pain Shortness of breath History of hypertension, GERD, anxiety/depression, TRINI noncompliant with CPAP, chronic back pain, abdominal hernia status post repair 1 year ago and presumed COPD on 2 L oxygen at home DVT prophylaxis CODE STATUS HEART score of 4, ALISHA score 2, CHADS2-VASC score of 2, and patient does not have bleeding risk. Troponins have been negative x4 and EKGs in the unit have showed sinus rhythm with no obvious signs ofischemia. As such, concern for ACS/NSTEMI at this time is low. Therefore we are not starting patient on HBW. - PRN nitroglycerin ordered for chest pain - Lexiscan stress test ordered - Repeat echo ordered to further assess heart function - Repeat chest x-ray ordered as well - Risk stratifying with TSH, A1c and lipid profile - Repeat troponin with repeat EKG in morning - Goal to maintain K >4, mag >2, replete as needed - Resume home medications as appropriate DVT prophylaxis: SCDs CODE STATUS: DNR/DNI Diet: NPO Problem List/Past Medical History Ongoing Anxiety attack HTN (hypertension) Hypotension Oral thrush Sepsis Historical No qualifying data Procedure/Surgical History None Medications Home Medications (22) Active albuterol 2.5 mg/3 mL (0.083%) inhalation solution 2.5 mg = 3 mL, PRN, Inhalation, q6h Align 4 mg oral capsule 4 mg = 1 cap(s), Oral, Daily amitriptyline 25 mg oral tablet 25 mg = 1 tab(s), Oral, qHS amLODIPine 5 mg oral tablet 5 mg = 1 tab(s), Oral, qDay atorvastatin 10 mg oral tablet 10 mg = 1 tab(s), Oral, qDay Atrovent HFA 17 mcg/inh inhalation aerosol 2 puff(s), Inhalation, QID baclofen 10 mg oral tablet 5 mg = 0.5 tab(s), PRN, Oral, BID benzonatate 100 mg oral capsule 100 mg = 1 cap(s), PRN, Oral, TID cholecalciferol 125 mcg (5000 intl units) oral capsule 125 mcg = 1 cap(s), Oral, qDay Ciprodex 0.3%-0.1% otic suspension 2 drop(s), PRN, Ear, both, BID citalopram 40 mg oral tablet 40 mg = 1 tab(s), Oral, qDay fluticasone 50 mcg/inh NASAL spray 1 spray(s), PRN, Nostril, each, BID furosemide 20 mg oral tablet 20 mg = 1 tab(s), Oral, qDay lansoprazole 15 mg oral delayed release capsule 15 mg = 1 cap(s), Oral, qDay levothyroxine 200 mcg (0.2 mg) oral tablet 200 mcg = 1 tab(s), Oral, qDay lisinopril 40 mg oral tablet 40 mg = 1 tab(s), Oral, qDay loratadine 10 mg oral capsule 10 mg = 1 cap(s), Oral, qDay Misc Medication See Instructions ondansetron 4 mg oral tablet 4 mg = 1 tab(s), PRN, Oral, q8h Sucraid 8500 intl units/mL oral solution Symbicort 160 mcg-4.5 mcg/inh Inhaler 2 puff(s), Inhalation, BID Wellbutrin XL 150 mg/24 hours oral tablet, extended release 150 mg = 1 tab(s), Oral, q24h Allergies Levaquin Peanuts (itching) amiloride-hydrochlorothiazide (itching) doxycycline meloxicam (swelling, rash, itching) Social History Smoking Status - 09/01/2017 Current every day smoker Alcohol - No Risk, 05/26/2022 Substance Abuse - No Risk, 05/26/2022 Tobacco - No Risk, 05/26/2022 Nicotine Use: 10 or more cigarettes (1/2 pack or more)/day in last 30 days., 02/27/2023 Family History Family history is unknown Immunizations No qualifying data available. Code Status Code Status - Ordered -- 08/24/23 3:26:00 EDT, DNRCC-Arrest Do Not Intubate, Constant Order Digitally Signed by GEORGE PHILIP MD on 08/24/2023 06:42 AM [id number] Progress note Date of Service 08/24/2023 Subjective 62-year-old female was seen and examined at bedside this morning. Patient was lying comfortably in bed and in no acute distress. Patient satting well on 2 L nasal cannula. Patient denied chest pain, shortness of breath or potation's this morning. No complaints at this time. Objective Vitals and Measurements T: 36.9 C (Oral) TMIN: 36.7 C (Oral) TMAX: 36.9 C (Oral) HR: 81(Monitored) RR: 18 BP: 103/50 SpO2: 95% HT: 170 cm WT: 139.4 kg BMI: 48.24 Intake and Output 7AM Yesterday to 7AM Today Intake and Output (Last 24 hours) Intake Oral Intake 200.00 Output Urine Count 1.00 Total Summary Total Intake 200.00 Total Output 0.00 Fluid Balance 200.00 Physical Exam General Appearance: Alert and oriented, in no acute distress. Obese female Head: Normocephalic, atraumatic EENT: PERRLA, EOMI, no oropharyngeal erythema, no tonsillar exudates, moist mucous membranes, no conjunctival injection, sclera anicteric. Neck: Supple, symmetric, no thyromegaly, no cervical lymphadenopathy, trachea midline. No carotid bruits. Cardiac: S1 and S2 normal. RRR. No murmurs, rubs, or gallops. No JVD. No Hepatojugular reflex. Lungs: Clear to auscultation bilaterally. Appropriate air entry. No increased work of breathing or diminished breath sounds. No wheezes, rhonchi, or crackles. Abdomen: Soft, nondistended, nontender. Normoactive bowel sounds. No rebound or guarding. No masses. No CVA tenderness. Musculoskeletal: Full range of motion in spine, upper and lower extremities. No joint erythema or tenderness. Extremities: No significant deformity or joint abnormality. No cyanosis, clubbing, or lower extremity pitting edema. 2+ radial and pedal pulses bilaterally in all extremities. Neurological: CN II to XII grossly intact. Strength 5/5 in bilateral upper and lower extremities. Sensation intact and symmetric. No focal neurologic deficits. Skin: Warm, dry, well-perfused. No abrasions, rashes, or hematomas visible. Psychiatric: Appropriate mood and affect, euthymic. Weight Dosing Weight: 139.4 kg (08/24/23) Medications Medications (20) Active Scheduled: (6) amLODIPine 5 mg tablet 5 mg 1 tab(s), Oral, qDay atorvastatin 10 mg tablet 10 mg 1 tab(s), Oral, qDay bupropion 150 mg/24 hours ER tablet 150 mg 1 tab(s), Oral, q24h heparin 5,000 units/mL (1 mL) vial 5,000 unit(s) 1 mL, Subcutaneous, q8h levothyroxine 200 mcg Tablet 200 mcg 1 tab(s), Oral, qDay pantoprazole 20 mg EC tablet 20 mg 1 tab(s), Oral, qDayAC Continuous: (0) PRN: (14) albuterol - ipratropium 2.5 mg-0.5 mg/3 mL Inhal Lucinda UD 3 mL, Inhalation, q4hRT baclofen 5 mg tablet 5 mg 1 tab(s), Oral, BID dextrose 50% Solution Disp syringe 50 mL 12.5 gram(s) 25 mL, IV Push, AsDirected magnesium sulfate 4 gram(s)/100mL PMX 4 g 100 mL, IV Piggyback, AsDirected magnesium sulfate 50% (500mg/mL) 6 g 12 mL, IV Piggyback, AsDirected magnesium sulfate PMX 2 g 50 mL, IV Piggyback, AsDirected melatonin 3 mg tablet 3 mg 1 tab(s), Oral, qHS nitroglycerin 0.4 mg Tablet (25/btl) 0.4 mg 1 tab(s), Sublingual, q5min ondansetron 2 mg/ 1 mL 2 mL INJ 4 mg 2 mL, IV Push, q4h polyethylene glycol 3350 - UD packet 17 gram(s) 15 mL, Oral, qDay potassium chloride (PMX) 20 mEq/100 mL 20 mEq 100 mL, IV Piggyback, AsDirected potassium chloride 20 mEq ER tablet 20 mEq 1 tab(s), Oral, AsDirected potassium chloride 20 mEq ER tablet 40 mEq 2 tab(s), Oral, AsDirected potassium chloride 20 mEq ER tablet 40 mEq 2 tab(s), Oral, AsDirected Lab Results 08/23 03:32 WBC: 16.7 H Hgb: 14.8 Hct: 44.8 Platelet: 224 Neutrophil %: 77.1 H Glucose Level: 123 H Sodium Level: 137 Potassium Level: 4.2 BUN: 10.0 Creatinine Lvl (s): 0.68 Imaging Results and Diagnostics XR Chest 1 View Result Date: August 24, 2023 Verified By: ARELI WEIR, BRANDIN Abreu CLINICAL STATEMENT: IMPRESSION: Mild scarring in left lower lung zone. No acute abnormality. EKG EKG - Completed -- 08/24/23 1:24:00 EST EKG - Completed -- 08/24/23 6:42:00 EDT Assessment/Plan Costochondritis/musculoskeletal pain Shortness of breath History of hypertension, GERD, anxiety/depression, TRINI noncompliant with CPAP, chronic back pain, abdominal hernia status post repair 1 year ago and presumed COPD on 2 L oxygen at home DVT prophylaxis CODE STATUS HEART score of 4, ALISHA score 2, CHADS2-VASC score of 2, and patient does not have bleeding risk. Troponins have been negative x4 and EKGs in the unit have showed sinus rhythm with no obvious signs ofischemia. As such, concern for ACS/NSTEMI at this time is low. Therefore we are not starting patient on HBW. - PRN nitroglycerin ordered for chest pain - Echo ordered to further assess heart function - Repeat chest x-ray showed mild scarring in left lower lung zone. No acute abnormality. - Risk stratifying with TSH 1.534, A1c 6.2 and lipid profile showed cholesterol 145, triglycerides of 111, HDL 40, LDL 83 - Goal to maintain K >4, mag >2, replete as needed - Resume home medications as appropriate Can discuss stress test outpatient. DVT prophylaxis: SCDs CODE STATUS: DNR/DNI Diet: NPO Digitally Signed by SHARA DENTON MD on 08/24/2023 01:19 PM [id number] Progress note Date of Service 08/24/2023 Subjective 62-year-old female was seen and examined at bedside this morning. Patient was lying comfortably in bed and in no acute distress. Patient satting well on 2 L nasal cannula. Patient denied chest pain, shortness of breath or potation's this morning. No complaints at this time. Objective Vitals and Measurements T: 36.9 C (Oral) TMIN: 36.7 C (Oral) TMAX: 36.9 C (Oral) HR: 81(Monitored) RR: 18 BP: 103/50 SpO2: 95% HT: 170 cm WT: 139.4 kg BMI: 48.24 Intake and Output 7AM Yesterday to 7AM Today Intake and Output (Last 24 hours) Intake Oral Intake 200.00 Output Urine Count 1.00 Total Summary Total Intake 200.00 Total Output 0.00 Fluid Balance 200.00 Physical Exam General Appearance: Alert and oriented, in no acute distress. Obese female Head: Normocephalic, atraumatic EENT: PERRLA, EOMI, no oropharyngeal erythema, no tonsillar exudates, moist mucous membranes, no conjunctival injection, sclera anicteric. Neck: Supple, symmetric, no thyromegaly, no cervical lymphadenopathy, trachea midline. No carotid bruits. Cardiac: S1 and S2 normal. RRR. No murmurs, rubs, or gallops. No JVD. No Hepatojugular reflex. Lungs: Clear to auscultation bilaterally. Appropriate air entry. No increased work of breathing or diminished breath sounds. No wheezes, rhonchi, or crackles. Abdomen: Soft, nondistended, nontender. Normoactive bowel sounds. No rebound or guarding. No masses. No CVA tenderness. Musculoskeletal: Full range of motion in spine, upper and lower extremities. No joint erythema or tenderness. Extremities: No significant deformity or joint abnormality. No cyanosis, clubbing, or lower extremity pitting edema. 2+ radial and pedal pulses bilaterally in all extremities. Neurological: CN II to XII grossly intact. Strength 5/5 in bilateral upper and lower extremities. Sensation intact and symmetric. No focal neurologic deficits. Skin: Warm, dry, well-perfused. No abrasions, rashes, or hematomas visible. Psychiatric: Appropriate mood and affect, euthymic. Weight Dosing Weight: 139.4 kg (08/24/23) Medications Medications (20) Active Scheduled: (6) amLODIPine 5 mg tablet 5 mg 1 tab(s), Oral, qDay atorvastatin 10 mg tablet 10 mg 1 tab(s), Oral, qDay bupropion 150 mg/24 hours ER tablet 150 mg 1 tab(s), Oral, q24h heparin 5,000 units/mL (1 mL) vial 5,000 unit(s) 1 mL, Subcutaneous, q8h levothyroxine 200 mcg Tablet 200 mcg 1 tab(s), Oral, qDay pantoprazole 20 mg EC tablet 20 mg 1 tab(s), Oral, qDayAC Continuous: (0) PRN: (14) albuterol - ipratropium 2.5 mg-0.5 mg/3 mL Inhal Lucinda UD 3 mL, Inhalation, q4hRT baclofen 5 mg tablet 5 mg 1 tab(s), Oral, BID dextrose 50% Solution Disp syringe 50 mL 12.5 gram(s) 25 mL, IV Push, AsDirected magnesium sulfate 4 gram(s)/100mL PMX 4 g 100 mL, IV Piggyback, AsDirected magnesium sulfate 50% (500mg/mL) 6 g 12 mL, IV Piggyback, AsDirected magnesium sulfate PMX 2 g 50 mL, IV Piggyback, AsDirected melatonin 3 mg tablet 3 mg 1 tab(s), Oral, qHS nitroglycerin 0.4 mg Tablet (25/btl) 0.4 mg 1 tab(s), Sublingual, q5min ondansetron 2 mg/ 1 mL 2 mL INJ 4 mg 2 mL, IV Push, q4h polyethylene glycol 3350 - UD packet 17 gram(s) 15 mL, Oral, qDay potassium chloride (PMX) 20 mEq/100 mL 20 mEq 100 mL, IV Piggyback, AsDirected potassium chloride 20 mEq ER tablet 20 mEq 1 tab(s), Oral, AsDirected potassium chloride 20 mEq ER tablet 40 mEq 2 tab(s), Oral, AsDirected potassium chloride 20 mEq ER tablet 40 mEq 2 tab(s), Oral, AsDirected Lab Results 08/23 03:32 WBC: 16.7 H Hgb: 14.8 Hct: 44.8 Platelet: 224 Neutrophil %: 77.1 H Glucose Level: 123 H Sodium Level: 137 Potassium Level: 4.2 BUN: 10.0 Creatinine Lvl (s): 0.68 Imaging Results and Diagnostics XR Chest 1 View Result Date: August 24, 2023 Verified By: ARELI WEIR, BRANDIN Abreu CLINICAL STATEMENT: IMPRESSION: Mild scarring in left lower lung zone. No acute abnormality. EKG EKG - Completed -- 08/24/23 1:24:00 EST EKG - Completed -- 08/24/23 6:42:00 EDT Assessment/Plan Costochondritis/musculoskeletal pain Shortness of breath History of hypertension, GERD, anxiety/depression, TRINI noncompliant with CPAP, chronic back pain, abdominal hernia status post repair 1 year ago and presumed COPD on 2 L oxygen at home DVT prophylaxis CODE STATUS HEART score of 4, ALISHA score 2, CHADS2-VASC score of 2, and patient does not have bleeding risk. Troponins have been negative x4 and EKGs in the unit have showed sinus rhythm with no obvious signs ofischemia. As such, concern for ACS/NSTEMI at this time is low. Therefore we are not starting patient on HBW. - PRN nitroglycerin ordered for chest pain - Echo ordered to further assess heart function - Repeat chest x-ray showed mild scarring in left lower lung zone. No acute abnormality. - Risk stratifying with TSH 1.534, A1c 6.2 and lipid profile showed cholesterol 145, triglycerides of 111, HDL 40, LDL 83 - Goal to maintain K >4, mag >2, replete as needed - Resume home medications as appropriate Can discuss stress test outpatient. DVT prophylaxis: SCDs CODE STATUS: DNR/DNI Diet: NPO Digitally Signed by SHARA DENTON MD on 08/24/2023 01:19 PM [id number] Note Discharge Instructions Thank you for allowing [facility] to assist you with your healthcare needs. The following is importantdischarge information regarding your hospital visit. Your Care Team DELORIS CHAVEZ APRN-CONTENT MANAGEMENT CONSULTANT Your Diagnosis Costochondritis Dyspnea Musculoskeletal chest pain What to do next Instructions From Your Doctor You came to the hospital because you had chest pain radiating to the upper back and neck. You were given nitroglycerin for chest pain. Chest x-ray was done which was negative for pneumonia. When palpating your chest pain was reproducible meaning it is most likely musculoskeletal. 2D echocardiogram was done which was reviewed by the [employer] and unremarkable. You will need upper body rest for 1 week. You will be discharged home on Biofreeze topical gel to be used twice daily, apply ice and heat 3 times daily to your chest pain. Continue taking all your home medications. Make sure to take all your medications as prescribed. Please follow-up with your assayer helper Dr. Irvin in 1 week Please follow-up with your primary care provider in 5 to 7 days. If your symptoms recur or get worse please go to your nearest emergency department Thank you for allowing us to participate in your care. Follow Up Appointments Follow Up with DELORIS CHAVEZ When Within 5 to 7 days Where: [address] [place] [address]- [phone] Follow Up with ALEK IRVIN MD When In 1 week Where: [address] [facility] [address] [facility] [place] [address]- [phone] The Following Activity and Diet Have Been Ordered for You Discharge Activity - Ordered -- Activity As Tolerated, 08/24/23 17:13:00 EDT Discharge Diet - Ordered -- Type of Diet: Cardiac, 08/24/23 17:13:00 EDT The Following Equipment Has Been Ordered for You No qualifying data available. The Following Treatments Have Been Ordered for You Discharge Labs No qualifying data available. Discharge Radiology No qualifying data available. Other Therapies No qualifying data available. Post Acute Orders No qualifying data available. Someone Will Contact You Regarding These Home Health Referrals No home referrals have been ordered for you. No one will call you. Allergies Levaquin Peanuts (itching) amiloride-hydrochlorothiazide (itching) doxycycline meloxicam (swelling, rash, itching) Medications Please ask your primary doctor or pharmacist before taking any other medication not listed, including over the counter drugs, herbal medications, vitamins and or supplements as they may interact withyour home medications. What How Much When Instructions Last Dose New menthol topical (Biofreeze 3.5% topical gel) 1 application Topical Two (2) times a day as needed for as needed for pain Duration: 7 Days Pickup at [id number] Unchanged albuterol (albuterol 2.5 mg/ 3 mL (0.083%) inhalation solution) 3 Milliliter by inhalation Every 6 hours as needed for for wheezing Unchanged amitriptyline (amitriptyline 25 mg oral tablet) 1 tab(s) by mouth Daily at bedtime Unchanged amLODIPine (amLODIPine 5 mg oral tablet) 1 tab(s) by mouth Once a day Unchanged atorvastatin (atorvastatin 10 mg oral tablet) 1 tab(s) by mouth Once a day Unchanged baclofen (baclofen 10 mg oral tablet) 0.5 tab(s) by mouth Two (2) times a day as needed for Spasm Unchanged benzonatate (benzonatate 100 mg oral capsule) 1 cap by mouth Three (3) times a day as needed for as needed for cough Duration: 7 Days Unchanged bifidobacterium infantis (Align 4 mg oral capsule) 1 cap by mouth Every day Unchanged budesonide-formoterol (Symbicort 160 mcg-4.5 mcg/ inh Inhaler) 2 puff(s) by inhalation Two (2) times a day Unchanged buPROPion (Wellbutrin XL 150 mg/ 24 hours oral tablet, extended release) 1 tab(s) by mouth Every 24 hours Unchanged cholecalciferol (cholecalciferol 125 mcg (5000 intl units) oral capsule) 1 cap by mouth Once a day Unchanged ciprofloxacin-dexamethasone otic (Ciprodex 0.3%-0.1% otic suspension) 2 Drops Both ears Two (2) times a day as needed for Control symptoms Unchanged citalopram (citalopram 40 mg oral tablet) 1 tab(s) by mouth Once a day Unchanged fluticasone nasal (fluticasone 50 mcg/ inh NASAL spray) 1 spray(s) each nostril Two (2) times a day as needed for Nasal congestion Unchanged furosemide (furosemide 20 mg oral tablet) 1 tab(s) by mouth Once a day Unchanged ipratropium (Atrovent HFA 17 mcg/ inh inhalation aerosol) 2 puff(s) by inhalation Four (4) times a day Unchanged lansoprazole (lansoprazole 15 mg oral delayed release capsule) 1 cap by mouth Once a day Unchanged levothyroxine (levothyroxine 200 mcg (0.2 mg) oral tablet) 1 tab(s) by mouth Once a day Unchanged lisinopril (lisinopril 40 mg oral tablet) 1 tab(s) by mouth Once a day Unchanged loratadine (loratadine 10 mg oral capsule) 1 cap by mouth Once a day Unchanged Misc Medication See instructions Unchanged ondansetron (ondansetron 4 mg oral tablet) 1 tab(s) by mouth Every 8 hours as needed for Nausea/Vomiting Unchanged sacrosidase (Sucraid 8500 intl units/ mL oral solution) Pharmacy Information [facility] #[id number]: [address], [place] [id number] [phone] Please take this list to your next doctor s visit. Bring all medications you take, including over the counter medications, herbals and other supplements with you to your doctor s visit. Patients and families are reminded to discard old lists and to update any records with all medication providers or retail pharmacies. Education Materials Exercise Stress Test An exercise stress test is a test that is done to collect information about how your heart functions during exercise. The test is done while you are walking on a treadmill or using an exercise bike. The goal is to raise your heart rate and stress the heart. The heart is evaluated before, during, and after you exercise. An electrocardiogram (ECG) will be used to monitor the heart, and your bloodpressure will also be monitored. In some cases, nuclear scanning or an ultrasound of the heart (echocardiogram) will also be done to evaluate your heart. An exercise stress test is done to look for coronary artery disease (CAD). The test may also be done to: Evaluate your limits of exercise during cardiac rehabilitation. Check for high blood pressure during exercise. Check how well you can exercise after such treatments as coronary stenting or new medicines. Check for problems with blood flow to your arms and legs during exercise. If you have an abnormal test result, this may mean that you are not getting enough blood flow to your heart during exercise. More testing may be needed to understand why your test was not normal. Tell a health care provider about: Any allergies you have. All medicines you are taking, including vitamins, herbs, eye drops, creams, and inqt-ywc-mfzlaki medicines. Any blood disorders you have. Any surgeries you have had. Any medical conditions you have. Whether you are or may be . What are the risks? Generally, this is a safe procedure. However, problems may occur, including: Pain or pressure in the following areas: ? Chest. ? Jaw or neck. ? Between your shoulder blades. ? Down your left arm. Dizziness or lightheadedness. Shortness of breath. Increased or irregular heartbeats. Nausea or vomiting. Heart attack (rare). Life-threatening abnormal heart rhythm (rare). What happens before the procedure? Follow instructions from your health care provider about eating or drinking restrictions. ? You may be told to avoid all forms of caffeine for 24 hours before the test. This includes coffee, tea (even decaffeinated tea), caffeinated sodas, chocolate, cocoa, and certain pain medicines. Ask your health care provider about: ? Taking zuup-tpq-vkoatyw medicines, vitamins, herbs, and supplements. ? Changing or stopping your regular medicines. This is especially important if you are taking diabetes medicines or beta-stuart medicines. ? If you have diabetes, ask how you are to take your insulin or pills. It is common to adjust your insulin dose the morning of the test. ? If you are taking beta-stuart medicines, it is important to talk to your health care provider about these medicines well before the date of your test. Taking beta-stuart medicines may interfere with the test. In some cases, these medicines may need to be changed or stopped 24 hours or more beforethe test. ? If you wear a nitroglycerin patch, it may need to be removed prior to the test. Ask your health care provider if the patch should be removed before the test. If you use an inhaler for any breathing condition, bring it with you to the test. Do not apply lotions, powders, creams, or oils on your chest prior to the test. Wear loose-fitting clothes and comfortable walking shoes. Do not use any products that contain nicotine or tobacco, such as cigarettes and e-cigarettes, for 4 hours before the test or as told by your health care provider. If you need help quitting, ask yourhealth care provider. What happens during the procedure? Multiple electrodes will be attached to your chest. Multiple wires will be attached to the electrodes. These will transfer the electrical impulses fromyour heart to the ECG machine. Your heart will be monitored both at rest and while exercising. If you are also having an echocardiogram or nuclear scanning, images of your heart will be taken before and after you exercise. A blood pressure cuff will be placed around your arm to measure your blood pressure throughout the test. You will feel it tighten and loosen throughout the test. You will walk on a treadmill or use a stationary bike. If you cannot use these, you may be asked toturn a crank with your hands. You will start at a slow pace or level on the exercise machine. The exercise difficulty will be slowly increased to raise your heart rate. In the case of a treadmill, the speed and incline will gradually be increased. You may be asked to periodically breathe into a tube. This measures the gases you breathe out. You will be asked how you are feeling throughout the test. You will be asked to rate your level of exertion. Tell the staff right away if you feel: ? Chest pain. ? Dizziness. ? Shortness of breath. ? Too fatigued to continue. ? Pain or aching in your legs or arms. You will exercise until you have symptoms or until you reach a target heart rate. The test will also be stopped if you have changes in your blood pressure or ECG readings, or if you develop an irregular heartbeat (arrhythmia). The procedure may vary among health care providers and hospitals. What happens after the procedure? You will sit down and recover from the exercise. Your blood pressure, heart rate, and ECG will be monitored until you recover. You may return to your normal schedule, including diet, activities, and medicines, unless your health care provider tells you otherwise. It is up to you to get your test results. Ask your health care provider, or the department that is doing the test, when your results will be ready. Summary An exercise stress test is a test that is done to collect information about how your heart functions during exercise. This test is done to look for coronary artery disease (CAD). During this test, you will walk on a treadmill or use an exercise bike to raise your heart rate. It is important to follow instructions from your health care provider about eating and drinking restrictions before the test. This may include avoiding caffeine and certain medicines before the test. This information is not intended to replace advice given to you by your health care provider. Make sure you discuss any questions you have with your health care provider. Document Released: 05/30/2001 Document Revised: 03/05/2018 Document Reviewed: 08/06/2017 [employer] Patient Education 2020 [employer] Chest Wall Pain Chest wall pain is pain in or around the bones and muscles of your chest. Chest wall pain may be caused by: An injury. Coughing a lot. Using your chest and arm muscles too much. Sometimes, the cause may not be known. This pain may take a few weeks or longer to get better. Follow these instructions at home: Managing pain, stiffness, and swelling If told, put ice on the painful area: Put ice in a plastic bag. Place a towel between your skin and the bag. Leave the ice on for 20 minutes, 2 3 times a day. Activity Rest as told by your doctor. Avoid doing things that cause pain. This includes lifting heavy items. Ask your doctor what activities are safe for you. General instructions Take vrdb-ejl-rtxsugq and prescription medicines only as told by your doctor. Do not use any products that contain nicotine or tobacco, such as cigarettes, e- cigarettes, and chewing tobacco. If you need help quitting, ask your doctor. Keep all follow-up visits as told by your doctor. This is important. Contact a doctor if: You have a fever. Your chest pain gets worse. You have new symptoms. Get help right away if: You feel sick to your stomach (nauseous) or you throw up (vomit). You feel sweaty or light-headed. You have a cough with mucus from your lungs (sputum) or you cough up blood. You are short of breath. These symptoms may be an emergency. Do not wait to see if the symptoms will go away. Get medical help right away. Call your local emergency services (911 in the [place] Do not drive yourself to the hospital. Summary Chest wall pain is pain in or around the bones and muscles of your chest. It may be treated with ice, rest, and medicines. Your condition may also get better if you avoid doing things that cause pain. Contact a doctor if you have a fever, chest pain that gets worse, or new symptoms. Get help right away if you feel light-headed or you get short of breath. These symptoms may be an emergency. This information is not intended to replace advice given to you by your health care provider. Make sure you discuss any questions you have with your health care provider. Document Released: 11/18/2008 Document Revised: 12/03/2018 Document Reviewed: 12/03/2018 [employer] Patient Education 2020 [employer] Additional Information [employer]! [employer]ES LIVES! Members of the community who have not yet received the COVID-19 vaccine and would like to receive it can visit one of [facility] vaccine clinics. There are many vaccine clinic locations within the [facility]. For locations and available times, please visit [email or web address] It is important to note that some COVID mobile vaccine clinics are held outdoors and may be canceled in rainy or stormy conditions. To learn more about pediatric vaccinations (ages 5-11), we invite you to visit the [facility] webpage. [email or web address]/[email or web address] learn more about the COVID-19 vaccine, we invite you to visit the CDC website for a list of frequently asked questions.https://www.cdc.gov/coronavirus/2019-ncov/vaccines/faq.html [employer] Patient Portal Access Instructions: Stay connected with your healthcare team and access your personal medical information anytime with the [employer] Patient Portal. Please follow the directions below to create your [employer] account: 1.Access the email account you provided upon registration to the hospital/physician office.2.Look for an invitation email from [facility].3.Open the email and access the invitation link: AcceptInvitation to [employer].4.Fill in the required blackman to create your account. To access your account, visit [employer]. Click the blue button labeled Access Patient Portal and then log in with the username and password that you created in the steps above. You will be able to view your test results, lab results, a summary of your visits, upcoming appointments and more. There is also a convenient messaging option where you can send secure messages to your p rovider. In addition, you will have the ability to download any documents or summaries to your computer and/or send the information securely to a physician. Remember that your healthcare information is confidential, so carefully consider who you will allowto register on the [facility] Patient Portal for access to your information. You can also access the [facility] Patient Portal on the [facility] [employer] j[facility]ny. Simply click on Patient Portal and then log into your account. If you would like to receive a full copy of your medical records, please contact the [facility] Medical Records Department by calling [phone], Friday through Friday between 8 a.m. and 4:30 p.m. HOW TO SAFELY DISPOSE OF PRESCRIPTION MEDICATIONS Please use one of the following methods to safely dispose of your unused medications. 1.Use a drug disposal kit: the drug disposal pouch allows you to safely discard your old and unuseddrugs. Ask your nurse to give you one when you are discharged.2.Visit a local take-back location: Many local pharmacies and police departments have programs that collect old and unwanted prescriptiondrugs. Call your local pharmacy or go to http://i'mma.[employer]/9U2Eo5w to find one close to you.3.Make use of household items: Use cat litter or old coffee grounds to dispose medications if other options arenot available. Mix your drugs with these household products, seal them in an airtight container andthrow it into the garbage. Call [facility]: [phone] to be sure your drugs can be disposed of in this way. Some medicines may require a different approach.4.Never flush your medications down the toilet. IF YOU HAVE BEEN PRESCRIBED AN OPIOID FOR PAIN If you have been prescribed an opioid (such as hydrocodone, oxycodone or morphine), it is critical to understand the possible side effects and risks of opioid pain medications. Even when taken as directed, opioids can have several side effects including: Tolerance, meaning you might need to take more of a medication for the same pain relief. Nausea, vomiting and/or constipation. Sleepiness, dizziness, dry mouth, confusion, depression or itching. Physical dependence, meaning you have withdrawal symptoms when a medication is stopped, can develop within a few days. KNOW YOUR RESPONSIBILITIES It is important to know exactly how much and how often to take the opioid pain medications you are prescribed. Never take opioids in higher amounts or more often than prescribed. Do not combine opioids with alcohol or other drugs that cause drowsiness, such as benzodiazepines, also known as benzos, including diazepam and alprazolam, muscle relaxants or sleep aids. Never sell or share prescription opioids. This is illegal. Store opioids in a secure place and out of reach of others (including children, family, friends and visitors). The last page of this document has been signed and retained as a CHART COPY. Signatures Patient Education Materials Exercise Stress Test Chest Wall Pain, [id number]-[id number] Medication Leaflets My discharge plan and instructions have been reviewed and explained to me and ILUZ MARINA JUDY A understand my current condition and have read and understand these discharge instructions. I have received a written copy of the plan/instructions. If I have questions, I am aware that I should contactmy doctor. 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 Troponins have been negative x4 and EKGs in the unit have showed sinus rhythm with no obvious signs of ischemia. As such, concern for ACS/NSTEMI at this time is low. Therefore we are not starting patient on HBW. - PRN nitroglycerin ordered for chest pain - Lexiscan stress test ordered - Repeat echo ordered to further assess heart function - Repeat chest x-ray ordered as well - Risk stratifying with TSH, A1c and lipid profile - Repeat troponin with repeat EKG in morning - Goal to maintain K >4, mag >2, replete as needed - Resume home medications as appropriate DVT prophylaxis: SCDs CODE STATUS: DNR/DNI Diet: NPO Addendum by JOSUE IRVIN MD on August 24, 2023 18:11:06 EDT I have personally seen, examined, and evaluated the patient on the encounter date. I have reviewed the fellow s documentation and agree with the fellow s findings and plan as documented, unless otherwise stated. Presented with several hours of constant waxing and waning chestpain with negative cardiac enzymes, EKG does not show ischemic changes JVP nml, clear lungs without rhonchi ; nl S1 and S2 without S3; Abd soft, nml bowel sounds, no organomegaly; Neuro 5/5 power all 4 extr, no facial droop CHESTPAIN :musculoskeletal, reproducible to palpation - topical heat/ice tid, topical voltaren , NSAIDs SOB HTN TRINI COPD ON O2 TTE done images reviewed- nml vlef and valve funciton, no WMA DC home and OP FU for stress test for CV risk starification [facility] 03-10-2024 Note* Exam Date Time Procedure Performing Provider Status 08/24/23 1:31 PM Echocardiogram, Adult - CV Auth (Verified) [facility] 03-10-2024 Progress note Date of Service 08/24/2023 Subjective 62-year-old female was seen and examined at bedside this morning. Patient was lying comfortably in bed and in no acute distress. Patient satting well on 2 L nasal cannula. Patient denied chest pain, shortness of breath or potation's this morning. No complaints at this time. Objective Vitals and Measurements T: 36.9 C (Oral) TMIN: 36.7 C (Oral) TMAX: 36.9 C (Oral) HR: 81(Monitored) RR: 18 BP: 103/50 SpO2: 95% HT: 170 cm WT: 139.4 kg BMI: 48.24 Intake and Output 7AM Yesterday to 7AM Today Intake and Output (Last 24 hours) Intake Oral Intake 200.00 Output Urine Count 1.00 Total Summary Total Intake 200.00 Total Output 0.00 Fluid Balance 200.00 Physical Exam General Appearance: Alert and oriented, in no acute distress. Obese female Head: Normocephalic, atraumatic EENT: PERRLA, EOMI, no oropharyngeal erythema, no tonsillar exudates, moist mucous membranes, no conjunctival injection, sclera anicteric. Neck: Supple, symmetric, no thyromegaly, no cervical lymphadenopathy, trachea midline. No carotid bruits. Cardiac: S1 and S2 normal. RRR. No murmurs, rubs, or gallops. No JVD. No Hepatojugular reflex. Lungs: Clear to auscultation bilaterally. Appropriate air entry. No increased work of breathing or diminished breath sounds. No wheezes, rhonchi, or crackles. Abdomen: Soft, nondistended, nontender. Normoactive bowel sounds. No rebound or guarding. No masses. No CVA tenderness. Musculoskeletal: Full range of motion in spine, upper and lower extremities. No joint erythema or tenderness. Extremities: No significant deformity or joint abnormality. No cyanosis, clubbing, or lower extremity pitting edema. 2+ radial and pedal pulses bilaterally in all extremities. Neurological: CN II to XII grossly intact. Strength 5/5 in bilateral upper and lower extremities. Sensation intact and symmetric. No focal neurologic deficits. Skin: Warm, dry, well-perfused. No abrasions, rashes, or hematomas visible. Psychiatric: Appropriate mood and affect, euthymic. Weight Dosing Weight: 139.4 kg (08/24/23) Medications Medications (20) Active Scheduled: (6) amLODIPine 5 mg tablet 5 mg 1 tab(s), Oral, qDay atorvastatin 10 mg tablet 10 mg 1 tab(s), Oral, qDay bupropion 150 mg/24 hours ER tablet 150 mg 1 tab(s), Oral, q24h heparin 5,000 units/mL (1 mL) vial 5,000 unit(s) 1 mL, Subcutaneous, q8h levothyroxine 200 mcg Tablet 200 mcg 1 tab(s), Oral, qDay pantoprazole 20 mg EC tablet 20 mg 1 tab(s), Oral, qDayAC Continuous: (0) PRN: (14) albuterol - ipratropium 2.5 mg-0.5 mg/3 mL Inhal Lucinda UD 3 mL, Inhalation, q4hRT baclofen 5 mg tablet 5 mg 1 tab(s), Oral, BID dextrose 50% Solution Disp syringe 50 mL 12.5 gram(s) 25 mL, IV Push, AsDirected magnesium sulfate 4 gram(s)/100mL PMX 4 g 100 mL, IV Piggyback, AsDirected magnesium sulfate 50% (500mg/mL) 6 g 12 mL, IV Piggyback, AsDirected magnesium sulfate PMX 2 g 50 mL, IV Piggyback, AsDirected melatonin 3 mg tablet 3 mg 1 tab(s), Oral, qHS nitroglycerin 0.4 mg Tablet (25/btl) 0.4 mg 1 tab(s), Sublingual, q5min ondansetron 2 mg/ 1 mL 2 mL INJ 4 mg 2 mL, IV Push, q4h polyethylene glycol 3350 - UD packet 17 gram(s) 15 mL, Oral, qDay potassium chloride (PMX) 20 mEq/100 mL 20 mEq 100 mL, IV Piggyback, AsDirected potassium chloride 20 mEq ER tablet 20 mEq 1 tab(s), Oral, AsDirected potassium chloride 20 mEq ER tablet 40 mEq 2 tab(s), Oral, AsDirected potassium chloride 20 mEq ER tablet 40 mEq 2 tab(s), Oral, AsDirected Lab Results 08/23 03:32 WBC: 16.7 H Hgb: 14.8 Hct: 44.8 Platelet: 224 Neutrophil %: 77.1 H Glucose Level: 123 H Sodium Level: 137 Potassium Level: 4.2 BUN: 10.0 Creatinine Lvl (s): 0.68 Imaging Results and Diagnostics XR Chest 1 View Result Date: August 24, 2023 Verified By: ARELI WEIR, BRANDIN Abreu CLINICAL STATEMENT: IMPRESSION: Mild scarring in left lower lung zone. No acute abnormality. EKG EKG - Completed -- 08/24/23 1:24:00 EST EKG - Completed -- 08/24/23 6:42:00 EDT Assessment/Plan Costochondritis/musculoskeletal pain Shortness of breath History of hypertension, GERD, anxiety/depression, TRINI noncompliant with CPAP, chronic back pain, abdominal hernia status post repair 1 year ago and presumed COPD on 2 L oxygen at home DVT prophylaxis CODE STATUS HEART score of 4, ALISHA score 2, CHADS2-VASC score of 2, and patient does not have bleeding risk. Troponins have been negative x4 and EKGs in the unit have showed sinus rhythm with no obvious signs ofischemia. As such, concern for ACS/NSTEMI at this time is low. Therefore we are not starting patient on HBW. - PRN nitroglycerin ordered for chest pain - Echo ordered to further assess heart function - Repeat chest x-ray showed mild scarring in left lower lung zone. No acute abnormality. - Risk stratifying with TSH 1.534, A1c 6.2 and lipid profile showed cholesterol 145, triglycerides of 111, HDL 40, LDL 83 - Goal to maintain K >4, mag >2, replete as needed - Resume home medications as appropriate Can discuss stress test outpatient. DVT prophylaxis: SCDs CODE STATUS: DNR/DNI Diet: NPO Digitally Signed by SHARA DENTON MD on 08/24/2023 01:19 PM [id number] Note ORIGINAL EXAMINATION: ONE XRAY VIEW OF THE CHEST 08/24/2023 5:14 am COMPARISON: Chest x-ray and CT chest on 08/23/2023. HISTORY: ORDERING SYSTEM PROVIDED HISTORY: Reason for Exam: Chest Pain FINDINGS: The heart size is at the upper limits of normal. Lung markings are crowded due to hypoventilation of the lungs. There is mild scarring in left lower lung zone that is unchanged since 02/28/2023. There is no acute lung infiltrate or edema. No pneumothorax or pleural fluid is present. IMPRESSION: Mild scarring in left lower lung zone. No acute abnormality. Interpreted by: Brandin Singleton MD Preliminary Report By: Brandin Singleton MD Electronically signed By Brandin Singleton MD Dictated Date: 08/24/2023 5:22:47 AM Prelim Date: 08/24/2023 5:24:15 AM Sign Date: 08/24/2023 5:24:15 AM Ordering Provider: GEORGE [facility]03-10-2024 History and physical note Date of Service 08/24/2023 History of Present Illness This is a 62-year-old female with past medical history of hypertension, GERD, anxiety/depression, TRINI noncompliant with CPAP, chronic back pain, abdominal hernia status post repair 1 year ago and presumed COPD on 2 L oxygen at home who came into [place] [facility] for chest pain, rated 5 out of 10, described as a tightness and pressure, located across the chest that radiated to her upper back and neck that occurred at rest and improved to 2/10 with nitro. Patient says pain lasted 3 to 4 hours and was constant during that time. Chest pain is reproducible on exam. She tried a breathing treatment but it did not help. Patient has never had this kind of pain before. She endorses associated shortness ofbreath, orthopnea and paroxysmal nocturnal dyspnea. Denies any palpitations, leg swelling, headache, nausea vomiting diarrhea, fevers or chills. Patient denies prior use of blood thinners and prior history of PE or DVT. Per nursing, patient received [place] at [facility] ED prior to transfer to [facility] which did not improve her pain. Of note, Echo from February 2023 shows EF 60-65%, normal diastolic function. No prior stress test on record. Patient says her brother was recently diagnosed with a heart condition around age 40, patient does not know which specifically. Also says her mother of a heart attack at age 56. Patient has been in a recliner for the past 6 years. Patient recently has quit smoking 4-5 months ago, previously has been smoking 1 pack/day since age 22. Patient denies alcohol or illicit drug use. While in CCU, vitals were stable with temperature 36, heart rate 74, respiratory rate 20, blood pressure 124/69 saturating 93% on 2 L nasal cannula. Repeat labs show white count of 16 hemoglobin stable at 14 platelets 224. CMP significant for glucose of 123, potassium 4.2, creatinine 0.68, magnesium 1.8. Lactate 1.9. proBNP 14. Troponins negative x 4. Chest x-ray is negative for pneumonia. CT angio negative for PE. There is an EKG in the chart showing atrial flutter timed from 2104 on 08/23/2023,however this was not patient's EKG per ED physician at [facility]. Patient received 1 dose ofnitroglycerin in CCU and was admitted under MTS for further management. Review of Systems Constitutional: Denies any acute distress Cardiovascular: Endorses chest pain Respiratory: Endorses shortness of breath. Gastrointestinal: Denies any constipation or diarrhea Genitourinary: Denies any difficulty with urination Musculoskeletal: Denies any muscle weakness Skin: Denies any rashes or lesions Neurological: Denies any confusion or loss of consciousness Psychiatric: Denies any suicidal ideation, homicidal ideation or mood changes Endocrine: Denies any fatigue, agitation or heat/cold intolerance Physical Exam Vitals and Measurements T: 36.7 C (Oral) HR: 78(Apical) RR: 20 BP: 124/69 SpO2: 93% HT: 170 cm WT: 139.4 kg BMI: 48.24 Weight Dosing Weight: 139.4 kg (08/24/23) General Appearance: Alert and oriented, in no acute distress. Obese female Head: Normocephalic, atraumatic EENT: PERRLA, EOMI, no oropharyngeal erythema, no tonsillar exudates, moist mucous membranes, no conjunctival injection, sclera anicteric. Neck: Supple, symmetric, no thyromegaly, no cervical lymphadenopathy, trachea midline. No carotid bruits. Cardiac: S1 and S2 normal. RRR. No murmurs, rubs, or gallops. No JVD. No Hepatojugular reflex. Lungs: Clear to auscultation bilaterally. Appropriate air entry. No increased work of breathing or diminished breath sounds. No wheezes, rhonchi, or crackles. Abdomen: Soft, nondistended, nontender. Normoactive bowel sounds. No rebound or guarding. No masses. No CVA tenderness. Musculoskeletal: Full range of motion in spine, upper and lower extremities. No joint erythema or tenderness. Extremities: No significant deformity or joint abnormality. No cyanosis, clubbing, or lower extremity pitting edema. 2+ radial and pedal pulses bilaterally in all extremities. Neurological: CN II to XII grossly intact. Strength 5/5 in bilateral upper and lower extremities. Sensation intact and symmetric. No focal neurologic deficits. Skin: Warm, dry, well-perfused. No abrasions, rashes, or hematomas visible. Psychiatric: Appropriate mood and affect, euthymic. Lab Results 08/23 03:32 WBC: 16.7 H Hgb: 14.8 Hct: 44.8 Platelet: 224 Neutrophil %: 77.1 H Glucose Level: 123 H Sodium Level: 137 Potassium Level: 4.2 BUN: 10.0 Creatinine Lvl (s): 0.68 Assessment/Plan Chest pain Shortness of breath History of hypertension, GERD, anxiety/depression, TRINI noncompliant with CPAP, chronic back pain, abdominal hernia status post repair 1 year ago and presumed COPD on 2 L oxygen at home DVT prophylaxis CODE STATUS HEART score of 4, ALISHA score 2, CHADS2-VASC score of 2, and patient does not have bleeding risk. Troponins have been negative x4 and EKGs in the unit have showed sinus rhythm with no obvious signs ofischemia. As such, concern for ACS/NSTEMI at this time is low. Therefore we are not starting patient on HBW. - PRN nitroglycerin ordered for chest pain - Lexiscan stress test ordered - Repeat echo ordered to further assess heart function - Repeat chest x-ray ordered as well - Risk stratifying with TSH, A1c and lipid profile - Repeat troponin with repeat EKG in morning - Goal to maintain K >4, mag >2, replete as needed - Resume home medications as appropriate DVT prophylaxis: SCDs CODE STATUS: DNR/DNI Diet: NPO Problem List/Past Medical History Ongoing Anxiety attack HTN (hypertension) Hypotension Oral thrush Sepsis Historical No qualifying data Procedure/Surgical History None Medications Home Medications (22) Active albuterol 2.5 mg/3 mL (0.083%) inhalation solution 2.5 mg = 3 mL, PRN, Inhalation, q6h Align 4 mg oral capsule 4 mg = 1 cap(s), Oral, Daily amitriptyline 25 mg oral tablet 25 mg = 1 tab(s), Oral, qHS amLODIPine 5 mg oral tablet 5 mg = 1 tab(s), Oral, qDay atorvastatin 10 mg oral tablet 10 mg = 1 tab(s), Oral, qDay Atrovent HFA 17 mcg/inh inhalation aerosol 2 puff(s), Inhalation, QID baclofen 10 mg oral tablet 5 mg = 0.5 tab(s), PRN, Oral, BID benzonatate 100 mg oral capsule 100 mg = 1 cap(s), PRN, Oral, TID cholecalciferol 125 mcg (5000 intl units) oral capsule 125 mcg = 1 cap(s), Oral, qDay Ciprodex 0.3%-0.1% otic suspension 2 drop(s), PRN, Ear, both, BID citalopram 40 mg oral tablet 40 mg = 1 tab(s), Oral, qDay fluticasone 50 mcg/inh NASAL spray 1 spray(s), PRN, Nostril, each, BID furosemide 20 mg oral tablet 20 mg = 1 tab(s), Oral, qDay lansoprazole 15 mg oral delayed release capsule 15 mg = 1 cap(s), Oral, qDay levothyroxine 200 mcg (0.2 mg) oral tablet 200 mcg = 1 tab(s), Oral, qDay lisinopril 40 mg oral tablet 40 mg = 1 tab(s), Oral, qDay loratadine 10 mg oral capsule 10 mg = 1 cap(s), Oral, qDay Misc Medication See Instructions ondansetron 4 mg oral tablet 4 mg = 1 tab(s), PRN, Oral, q8h Sucraid 8500 intl units/mL oral solution Symbicort 160 mcg-4.5 mcg/inh Inhaler 2 puff(s), Inhalation, BID Wellbutrin XL 150 mg/24 hours oral tablet, extended release 150 mg = 1 tab(s), Oral, q24h Allergies Levaquin Peanuts (itching) amiloride-hydrochlorothiazide (itching) doxycycline meloxicam (swelling, rash, itching) Social History Smoking Status - 09/01/2017 Current every day smoker Alcohol - No Risk, 05/26/2022 Substance Abuse - No Risk, 05/26/2022 Tobacco - No Risk, 05/26/2022 Nicotine Use: 10 or more cigarettes (1/2 pack or more)/day in last 30 days., 02/27/2023 Family History Family history is unknown Immunizations No qualifying data available. Code Status Code Status - Ordered -- 08/24/23 3:26:00 EDT, DNRCC-Arrest Do Not Intubate, Constant Order Digitally Signed by GEORGE PHILIP MD on 08/24/2023 06:42 AM [facility] [id number] NoteSINUS RHYTHM INCOMPLETE RIGHT BUNDLE BRANCH BLOCK ABNORMAL INFERIOR Q WAVES MINIMAL ST ELEVATION, INFERIOR LEADS Electronic Signature: ALEK IRVIN MD 08/24/2023 09:55:06[facility] 03-10-2024 NoteSINUS RHYTHM INCOMPLETE RIGHT BUNDLE BRANCH BLOCK ST ELEVATION, CONSIDER INFERIOR INJURY Electronic Signature: ALEK IRVIN MD 08/24/2023 09:55:00[facility] 03-09-2024 Note ORIGINAL EXAMINATION: CTA OF THE CHEST 08/23/2023 8:39 pm TECHNIQUE: CTA of the chest was performed after the administration of intravenous contrast. Multiplanar reformatted images are provided for review. MIP images are provided for review. Automated exposure control, iterative reconstruction, and/or weight based adjustment of the mA/kV was utilized to reduce the radiation dose to as low as reasonably achievable. COMPARISON: Same day chest x-ray. CT 02/28/2023. HISTORY: ORDERING SYSTEM PROVIDED HISTORY: Reason for Exam: chest pain/ back pain FINDINGS: Pulmonary Arteries: Pulmonary arteries are adequately opacified for evaluation. No evidence of intraluminal filling defect to suggest pulmonary embolism. Main pulmonary artery is normal in caliber. Mediastinum: Right hilar 1.2 cm lymph node (series 3, image 93). There are some calcified mediastinal lymph nodes, sequela of prior granulomatous disease. Heart is normal in size. No pericardial effusion. There is no acute abnormality of the thoracic aorta. Lungs/pleura: Minimal emphysematous changes near the right apex. There are few calcified granulomas. There are streaky areas of subsegmental consolidation scarring/atelectasis, particularly at the left lower lobe, similar to prior. Right upper lobe pneumonia seen on the prior CT has resolved. There is no pneumothorax or pleural effusion. The trachea and mainstem bronchi appear clear. Upper Abdomen: Limited images of the upper abdomen are unremarkable. Soft Tissues/Bones: No acute bone or soft tissue abnormality. There are degenerative changes spine which demonstrates increased kyphotic curvature. IMPRESSION: No evidence of pulmonary embolism or acute pulmonary abnormality. Right upper lobe pneumonia on prior CT has resolved. Indeterminate right hilar 1.2 cm lymph node. Recommend follow-up CT chest with IV contrast in 3-6 months. I have reviewed the resident's preliminary report and agree with findings and impression. Interpreted by: Beto Ledesma Preliminary Report By: Malathi Bah Electronically signed By Beto Ledesma Dictated Date: 08/23/2023 8:48:33 PM Prelim Date: 08/23/2023 8:55:21 PM Sign Date: 08/23/2023 9:41:29 PM Ordering Provider: [facility]03-09-2024 Note ORIGINAL EXAMINATION: ONE XRAY VIEW OF THE CHEST08/23/2023 6:44 pm COMPARISON: 02/28/2023 HISTORY: ORDERING SYSTEM PROVIDED HISTORY: Reason for Exam: COUGH chest pain FINDINGS: Examination is limited by body habitus and positioning (patient's chin obscures the lung apices). The cardiomediastinal silhouette is within normal limits. Left midlung scarring/atelectasis is stable. Otherwise, no focal pulmonary consolidation, pneumothorax, or large pleural effusion visualized. No acute osseous abnormality. IMPRESSION: No definite acute abnormality. I have reviewed the resident's preliminary report and agree with findings and impression. Interpreted by: Beto Ledesma Preliminary Report By: Malathi Bah Electronically signed By Beto Ledesma Dictated Date: 08/23/2023 6:47:57 PM Prelim Date: 08/23/2023 6:49:35 PM Sign Date: 08/23/2023 7:14:04 PM [facility] NoteSinus rhythm Right axis deviation Nonspecific T abnrm, anterolateral leads Compared to ECG at 03/02/2023 09:48:05 Electronic Signature: KYLEMALGORZATA SINGH 08/23/2023 19:47:33[facility] 03-04-2024 Miscellaneous Notes* Telephone Encounter - Ramona Nelson LPN - 08/18/2023 9:26 AM EST SABA-08/07/23 Labs-01/15/23 NOV-none Ramona Nelson LPN documented in this encounterSt[facility] Miscellaneous Notes* Telephone Encounter - Jose Summers LPN - 08/15/2023 12:41 PM EST Patient has been identified by name and date of : Yes Patient phones for refill(s): Requested Prescriptions Pending Prescriptions Disp Refills ALPRAZolam (XANAX) 1 mg tablet 30 tablet 0 Sig: Take 1 tablet by mouth once daily as needed for anxiety for up to 30 days. Date of last office visit in primary care: 08/07/2023 Date of next office visit in primary care: Visit date not found Please advise. Thank you. Jose Summers LPN. documented in this encounterSt. [facility] History of Present illness Narrative* Johanna Faith APRN.CONTENT MANAGEMENT CONSULTANT - 08/07/2023 9:20 AM EST This is a 62 year old female who presents today with: No chief complaint on file. HISTORY OF PRESENT ILLNESS: Santy Raza is a 62 year old female. No chief complaint on file. Patient of Deloris Chavez CONTENT MANAGEMENT CONSULTANT here in the office for ongoing nausea. Was seen in the office on 07/11/23 for cold symptoms as well as ongoing nausea. Was given a prescription for Zofran. Cold symptomshave resolved but still having on going nausea. This seems to be constant, nothing seems to make itworse or better. Has been using the zofran 4 mg ODT and oral. Refers when she eats hamburger seems to increase the nausea. Has been eating lean poultry and fish. Has had diarrhea for the past 2 days.Having about 4 episodes of diarrhea per day. No blood in the stool. Has had increase in GERD symptoms, taking Prevacid 15 mg daily. History of GERD, epigastric pain, IBS, and hernia. PAST MEDICAL HISTORY: PAST MEDICAL HISTORY Diagnosis Date Allergic rhinitis, cause unspecified BMI 45.0-49.9, adult ([facility]) 08/27/2022 Essential hypertension, benign Hypothyroidism 09/26/2015 Mixed conductive and sensorineural hearing loss TRINI on CPAP Other anxiety states Perforated tympanic membrane 03/29/2011 S/P repair of ventral hernia 09/06/2022 Synovitis and tenosynovitis, unspecified Tobacco abuse 03/23/2012 PAST SURGICAL HISTORY Procedure Laterality Date COLONOSCOPY SCRN NOT HIGH RISK 09/13/2020 EGD 10/25/2020 L'SCOPE DX W/WO BRUSHINGS/WASHINGS 09/05/2022 Dr. Guaadrrama LIG/TRNSXJ FLP TUBE ABDL/VAG APPR UNI/BI Tubal ligation LX REPAIR RECURRENT VENTRAL HERNIA 09/05/2022 open, w/ mesh. Dr. Guadarrama MYRINGOTOMY ASPIR&/EUSTACHIAN TUBE NFLTJ ANES Myringotomy/tubes NEUROPLASTY &/TRANSPOS MEDIAN NRV CARPAL TUNNE Bilateral 01/15/2019 Bilateral carpal tunnel release REDUCTION OF LARGE BREAST 04/23/2016 STEREOTACT BREAST BX EA LESION PC 09/30/2018 left stereotactic breast biopsy w/vacuum assisted core needle biopsy, specimen radiograph and marker placement ALLERGIES Doxycycline Monohydrate, Hctz [Amiloride-Hydrochlorothiazide], Levaquin [Levofloxacin], Meloxicam, and Peanuts MEDICATIONS Current Outpatient Medications Medication Sig budesonide-formoterol (SYMBICORT) 160-4.5 mcg/actuation inhaler Inhale 2 Puffs as instructed two times a day. benzonatate (TESSALON PERLES) 100 mg capsule Take 1-2 capsules by mouth three times a day as neededfor cough. ondansetron orally disintegrating (ZOFRAN ODT) 4 mg disintegrating tablet Take 1 tablet by mouth every 8 hours as needed for nausea/vomiting. citalopram (CELEXA) 40 mg tablet Take 1 tablet by mouth once daily. albuterol (PROVENTIL) 2.5 mg /3 mL (0.083 %) nebulizer solution Use 3 mL via nebulizer every 6 hours as needed for wheezing/shortness of breath. ondansetron (ZOFRAN) 4 mg tablet Take 1 tablet by mouth every 8 hours as needed for nausea/vomiting. loratadine (CLARITIN) 10 mg tablet Take 1 tablet by mouth once daily. buPROPion XL (WELLBUTRIN XL) 150 mg 24 hr tablet Take 1 tablet by mouth once daily. atorvastatin (LIPITOR) 10 mg tablet take 1 tablet by mouth daily at bedtime for cholesterol fluticasone (FLONASE) 50 mcg/actuation nasal spray Use 2 Sprays in each nostril once daily. Rinse mouth after use. levothyroxine (LEVOXYL) 200 mcg tablet Take 1 tablet by mouth once daily. Take on empty stomach. For thyroid amitriptyline (ELAVIL) 25 mg tablet Take 1 tablet by mouth daily at bedtime. amLODIPine (NORVASC) 5 mg tablet take 1 tablet by mouth once daily Cholecalciferol, Vitamin D3, 125 mcg (5,000 unit) cap Take 1 capsule by mouth once daily. lisinopril (ZESTRIL) 40 mg tablet Take 1 tablet by mouth once daily. furosemide (LASIX) 20 mg tablet Take 1 tablet by mouth once daily. Ipratropium (ATROVENT HFA) 17 mcg/actuation inhaler Inhale 2 Puffs as instructed every 6 hours. lansoprazole (PREVACID) 15 mg capsule Take 1 capsule by mouth once daily. Nebulizer Accessories misc 1 Each as directed. Nebulizer tubing and mouth piece. faxed to dexAMETHasone (DEXASOL) 0.1 % ophthalmic solution Use 1 Drop in both eyes every 12 hours as needed.Instill 2 drops into affected ear twice daily as needed. baclofen (LIORESAL) 10 mg tablet TAKE 1/2 TO 1 TABLET BY MOUTH TWICE A DAY NEEDED FOR SPASMS CPAP autoCPAP 5-15 cmH2O, mask, tubing, filters, heated humidity, lifetime supplies. Dx: TRINI Nebulizer 1 Each as needed. NEBULIZER TUBING AND SUPPLIES. DX: CHRONIC BRONCHITIS J41.1, WHEEZING R06.2. FAX TO [employer] [phone] COMPOUNDED PRESCRIPTION Nebulizer for albuterol every fours as needed ICD: R06.2 No current facility-administered medications for this visit. FAMILY HISTORY Problem Relation Age of Onset No Known Problems Father Coronary Artery Disease Mother PE Asthma Mother Multiple Sclerosis Mother Coronary Artery Disease Brother None Brother Coronary Artery Disease Sister Colon Cancer No Family History Anesthesia Problems No Family History Social History Tobacco Use Smoking status: Former Packs/day: 1.00 Years: 35.00 Additional pack years: 0.00 Total pack years: 35.00 Types: Cigarettes Start date: 05/29/1987 Quit date: 03/02/2023 Years since quittin.4 Smokeless tobacco: Never Vaping Use Vaping Use: Never used Substance Use Topics Alcohol use: No Drug use: No REVIEW OF SYSTEMS GENERAL: No weight loss, malaise or fevers/chills HEENT: Negative for frequent or significant headaches, No changes in hearing or vision. NECK: Negative for lumps, goiter, pain and significant neck swelling RESPIRATORY: Negative for cough, hemoptysis, wheezing, dyspnea or shortness of breath CARDIOVASCULAR: Negative for chest pain, leg swelling, orthopnea, or palpitations GI: + GERD/Nausea : No history of dysuria, frequency or incontinence MUSCULOSKELETAL: Negative for joint pain or swelling. SKIN: Negative for lesions, rash, and itching ENDOCRINE: Negative for cold or heat intolerance, polyuria, polydipsia and goiter NEURO: No history of headaches, syncope, paralysis, seizures or tremors MOOD: Negative for depression, anxiety, or suicidal ideation. EXAM: BP 124/66 Pulse 79 Resp 16 Wt (!) 137 kg (302 lb) LMP 09/14/2013 SpO2 95% BMI 48.77 kg/m PHYSICAL EXAM: General Appearance: Well appearing, alert, in no acute distress, well-hydrated, well nourished. Skin: Skin color, texture, turgor normal, no suspicious rashes or lesions. Head: Normocephalic, no masses, lesions, tenderness or abnormalities. Eyes: Anicteric sclera. Extraocular movements are intact. Lungs: Lungs clear to auscultation. No wheezing, rhonchi, rales. Heart: RRR without murmur, gallop, or rubs. No ectopy. Abdomen: Normal abdominal exam, Abdomen soft, non-tender. Bowel sounds normal. No masses, organomegaly. Peripheral Pulses: Normal, Capillary refill <2secs, strong peripheral pulses, Pulses palpable. Neurologic: Gait normal. Reflexes normal and symmetric. Sensation grossly intact. ASSESSMENT/PLAN: 1. Nausea - ICD9: 787.02, ICD10: R11.0 (primary diagnosis) - May use Phenergan every 6 hours as needed for nausea. - PROMETHAZINE 25 MG TABLET 2. GERD without esophagitis - ICD9: 530.81, ICD10: K21.9 - Concerned that the nausea could be caused from increased GERD. - Instructed to increase Prevacid to 30 mg daily. May add on Pepcid 20 mg at bedtime as needed. - Work on eating smaller meals as well as avoiding any acidic or greasy foods in the diet. - If no improvement instructed to follow-up with title i math tutor. Follow-up if no improvement. Discussed treatment plan and patient voices understanding. Patient's questions answered appropriately. Medications and potential side effects were discussed and patient voices understanding. Johanna Faith APRN.KHURRAM This note was partially generated using Swiftpage voice recognition system. Note was reviewed for accuracy. There may be minor misspellings or grammar miscues with [employer] voice recognition. documented in this encounterSt. [facility] Instructions* Patient Instructions* Johanna Faith APRN.CNP - 08/07/2023 9:19 AM EST Recommend increasing Prevacid 30 mg daily, may add on Pepcid 20 mg at bedtime if needed. Watch diet, try to eat smaller meals, watch greasy foods in the diet. Stay well hydrated May try Phenergan as needed for nausea If symptoms do not improve recommend follow up GI. Follow up if no improvement. documented in this encounterSt. [facility] History of Present illness Narrative* Jessica Kan RT(R) - 08/06/2023 10:00 AM EST Radiology Service Progress Note PATIENT NAME: Santy Raza DATE OF SERVICE: August 06, 2023 TIME: 10:11 AM PATIENT IDENTITY VERIFICATION COMPLETED USING TWO (2) IDENTIFIERS: Name and Date of confirmedby patient verbally. FALL SCREENING: Has the patient had 2 falls in the last year or 1 fall with injury or currently using an Ambulatory Assistive Device (Walker, Cane, Wheelchair, Crutches, etc.)? No PATIENT GENDER DATA: Female. status: : No status: NO. PATIENT RELEVANT IMPLANT DATA REVIEWED: Yes PATIENT PRESENTS WITH AN IMPLANTABLE OR ATTACHED TIGHTENER: No RADIOLOGY DEPARTMENT: General X-ray: Exam(s) Completed: Upper Extremity X- Ray(s): Elbow, right PERIPHERAL IV DATA: Not applicable SIGNED BY: RT Clemente(R) August 06, 2023 10:11 AM documented in this encounterSt. [facility]02[facility] Instructions* Patient Instructions* Haley Seaman APRN.CONTENT MANAGEMENT CONSULTANT - 08/06/2023 10:00 AM EST ASSESSMENT/PLAN: 1. Elbow swelling, right - ICD9: 719.02, ICD10: M25.421 (primary diagnosis) - XR ELBOW SPECIAL VIEWS AP/LAT/OTHER RIGHT FINDINGS: No acute fractures or subluxations are noted. The radiocapitellar and ulnotrochlear joint spaces are maintained. No fat pad sign to suggest joint effusion. The mineralization of the bones is normal. There is mild soft tissue swelling along the olecranon. IMPRESSION: No acute fractures identified in the right elbow. Mild soft tissue swelling along the olecranon. Manager Target: ARIA Transcribe Date/Time: Aug 06 2023 10:19A Dictated by : PAULETTE PERKINS MD 2. Olecranon bursitis of right elbow - ICD9: 726.33, ICD10: M70.21 - OWEN wrap applied to right elbow. - RICE therapy as directed. - Follow-up with your PCP in 3-5 days if symptoms have not improved or sooner if symptoms worsen - Discussed red flags and need for immediate medical evaluation if any occur. - Discussed supportive care treatment with fluids, rest and analgesia. - Discussed expected course of illness Haley Seaman APRN.CONTENT MANAGEMENT CONSULTANT Bursitis What is bursitis? Bursitis is the inflammation or irritation of the bursa. The bursa is a small sac filled with lubricating fluid, located between tissues such as bone, muscle, tendons, and skin. Bursae help to decrease friction, rubbing and irritation and help your joints move with ease. There are more than 150 bursae in your body. Bursitis occurs when a bursa becomes inflamed; this results in pain and discomfort. The pain may be gradual (building up over time) or may be sudden and severe (especially if calciumdeposits are present). What causes bursitis? Bursitis is most often caused by repetitive motions (ie, overuse); or direct, minor impact on the area (such as from such activities as repeated bumping or prolonged pressure from kneeling). Less often, bursitis is caused from a sudden, more serious injury. Other examples of the sources of bursitis include one or more of the following: Play or work activities that cause overuse or injury to the joint areas, for example: Gardening Raking Carpentry Shoveling Painting Scrubbing Sports (tennis, golf, throwing and pitching, etc.) Incorrect posture injury Stress on the soft tissues from an abnormal or poorly positioned joint or bone (such as leg length differences or arthritis in a joint) Other diseases or conditions (rheumatoid arthritis, gout, psoriasis, thyroid disease or an unusual drug reaction) and rarely, from infection Many times, the cause of bursitis is unknown. Where does bursitis occur? Bursae are located throughout the body. However, certain joints are more subject to increased pressure and repetitive use, making bursitis more likely to develop in them. These joints include the shoulders, elbows, knees, and feet. Bursae near the hip joint, particularly those on the outer side of the hip, and those in the buttocks (subjected to pressure from sitting) are also prone to bursitis. How is bursitis treated? Treatment goals include reduction in pain and inflammation, as well as preserving mobility and preventing disability and recurrence. Treatment recommendations may include a combination of rest, splints, heat and cold application. More advanced treatment options include: Nonsteroidal anti-inflammatory drugs, such as ibuprofen or naproxen Corticosteroid injections given by your health care provider. Injections work quickly to decrease the inflammation and pain. Physical therapy that includes range of motion exercises and splinting. This can be very beneficial. Surgery, when other treatments are not effective. When should you seek medical advice? Most cases of bursitis improve without any treatment over a few weeks. See your health care provider if you have any of the following signs or symptoms: You experience pain that interferes with your normal day-to-day activities or have soreness that doesn't improve despite self-care measures. You have recurrence of bursitis. You have a fever or the area affected appears red, swollen or warm. In addition, see your doctor if you have other medical conditions that may increase your risk of aninfection, or if you take medications that increase your risk of infection, such as corticosteroidsor immunosuppressants. How can you prevent bursitis? Because most cases of bursitis are caused by overuse, the best treatment is prevention. It is important to avoid or modify the activities that cause the problem. Underlying conditions such as leg length differences, improper posture or poor technique in sports or work must be corrected. Some positions, such as kneeling and sitting, significantly increase joint pressure. Apply these basic rules when performing activities: Take it slow at first and gradually build up your activity level. Use limited force and limited repetitions. Stop if unusual pain occurs. Use cushions and pads to reduce pressure. References [employer]. Tendinitis and Bursitis Accessed 04/19/2014. [employer] [place] [employer] and Musculoskeletal and Skin Diseases. Bursitis and tendinitis Accessed 04/19/2014. Billy ROCK. Chapter 281. Acute Disorders of the Joints and Bursae. In: Thanh DE LEÓN, Jeane Headley,Reji O, Marilee DM, Van RK, Bonnie DO, T. eds. Thanh's Emergency Medicine: A Comprehensive Study Guide, 7e. [place], [place]: [facility]; 2011. Copyright 0343-4758 [facility]. All rights reserved This information is provided by the [facility] and is not intended to replace the medical advice of your doctor or health care provider. Please consult your health care provider for advice about a specific medical condition. For additional health information, please contact the Center for Consumer Health Information at the [facility] or toll-free extension [phone]. If you prefer, you may visit [email or web address] or [email or web address]. This document was last reviewed on: 2014 index#[id number] documented in this encounterSt. Mary'[facility]02[facility] History of Present illness Narrative* Haley Seaman APRN.CONTENT MANAGEMENT CONSULTANT - 08/06/2023 9:41 AM EST Subjective HPI Santy Raza is a 62 year old female who presents with swelling at the point of her elbow. She denies pain or injury. States she just noticed this yesterday.She has not taken any medication for this at home. Review of Systems Constitutional: Negative for chills and fever. Musculoskeletal: Positive for joint pain. Negative for falls. Skin: Negative for itching and rash. BP 118/68 Pulse 98 Temp 36.7 C (98 F) Resp 18 Wt (!) 137.4 kg (303 lb) LMP 09/14/2013 SpO2 96% BMI 48.93 kg/m PAST MEDICAL HISTORY Diagnosis Date Allergic rhinitis, cause unspecified BMI 45.0-49.9, adult ([facility]) 08/27/2022 Essential hypertension, benign Hypothyroidism 09/26/2015 Mixed conductive and sensorineural hearing loss TRINI on CPAP Other anxiety states Perforated tympanic membrane 03/29/2011 S/P repair of ventral hernia 09/06/2022 Synovitis and tenosynovitis, unspecified Tobacco abuse 03/23/2012 PAST SURGICAL HISTORY Procedure Laterality Date COLONOSCOPY SCRN NOT HIGH RISK 09/13/2020 EGD 10/25/2020 L'SCOPE DX W/WO BRUSHINGS/WASHINGS 09/05/2022 Dr. Guadarrama LIG/TRNSXJ FLP TUBE ABDL/VAG APPR UNI/BI Tubal ligation LX REPAIR RECURRENT VENTRAL HERNIA 09/05/2022 open, w/ mesh. Dr. Guadarrama MYRINGOTOMY ASPIR&/EUSTACHIAN TUBE NFLTJ ANES Myringotomy/tubes NEUROPLASTY &/TRANSPOS MEDIAN NRV CARPAL TUNNE Bilateral 01/15/2019 Bilateral carpal tunnel release REDUCTION OF LARGE BREAST 04/23/2016 STEREOTACT BREAST BX EA LESION PC 09/30/2018 left stereotactic breast biopsy w/vacuum assisted core needle biopsy, specimen radiograph and marker placement ALLERGIES Doxycycline Monohydrate, Hctz [Amiloride-Hydrochlorothiazide], Levaquin [Levofloxacin], Meloxicam, and Peanuts MEDICATIONS budesonide-formoterol (SYMBICORT) 160-4.5 mcg/actuation inhaler Inhale 2 Puffs as instructed two times a day. benzonatate (TESSALON PERLES) 100 mg capsule Take 1-2 capsules by mouth three times a day as neededfor cough. ondansetron orally disintegrating (ZOFRAN ODT) 4 mg disintegrating tablet Take 1 tablet by mouth every 8 hours as needed for nausea/vomiting. citalopram (CELEXA) 40 mg tablet Take 1 tablet by mouth once daily. albuterol (PROVENTIL) 2.5 mg /3 mL (0.083 %) nebulizer solution Use 3 mL via nebulizer every 6 hours as needed for wheezing/shortness of breath. ondansetron (ZOFRAN) 4 mg tablet Take 1 tablet by mouth every 8 hours as needed for nausea/vomiting. loratadine (CLARITIN) 10 mg tablet Take 1 tablet by mouth once daily. buPROPion XL (WELLBUTRIN XL) 150 mg 24 hr tablet Take 1 tablet by mouth once daily. atorvastatin (LIPITOR) 10 mg tablet take 1 tablet by mouth daily at bedtime for cholesterol fluticasone (FLONASE) 50 mcg/actuation nasal spray Use 2 Sprays in each nostril once daily. Rinse mouth after use. levothyroxine (LEVOXYL) 200 mcg tablet Take 1 tablet by mouth once daily. Take on empty stomach. For thyroid amitriptyline (ELAVIL) 25 mg tablet Take 1 tablet by mouth daily at bedtime. amLODIPine (NORVASC) 5 mg tablet take 1 tablet by mouth once daily Cholecalciferol, Vitamin D3, 125 mcg (5,000 unit) cap Take 1 capsule by mouth once daily. lisinopril (ZESTRIL) 40 mg tablet Take 1 tablet by mouth once daily. furosemide (LASIX) 20 mg tablet Take 1 tablet by mouth once daily. Ipratropium (ATROVENT HFA) 17 mcg/actuation inhaler Inhale 2 Puffs as instructed every 6 hours. lansoprazole (PREVACID) 15 mg capsule Take 1 capsule by mouth once daily. Nebulizer Accessories misc 1 Each as directed. Nebulizer tubing and mouth piece. faxed to dexAMETHasone (DEXASOL) 0.1 % ophthalmic solution Use 1 Drop in both eyes every 12 hours as needed.Instill 2 drops into affected ear twice daily as needed. baclofen (LIORESAL) 10 mg tablet TAKE 1/2 TO 1 TABLET BY MOUTH TWICE A DAY NEEDED FOR SPASMS CPAP autoCPAP 5-15 cmH2O, mask, tubing, filters, heated humidity, lifetime supplies. Dx: TRINI Nebulizer 1 Each as needed. NEBULIZER TUBING AND SUPPLIES. DX: CHRONIC BRONCHITIS J41.1, WHEEZING R06.2. FAX TO [employer] [phone] COMPOUNDED PRESCRIPTION Nebulizer for albuterol every fours as needed ICD: R06.2 FAMILY HISTORY Problem Relation Age of Onset No Known Problems Father Coronary Artery Disease Mother PE Asthma Mother Multiple Sclerosis Mother Coronary Artery Disease Brother None Brother Coronary Artery Disease Sister Colon Cancer No Family History Anesthesia Problems No Family History Social History Tobacco Use Smoking status: Former Packs/day: 1.00 Years: 35.00 Additional pack years: 0.00 Total pack years: 35.00 Types: Cigarettes Start date: 05/29/1987 Quit date: 03/02/2023 Years since quittin.4 Smokeless tobacco: Never Vaping Use Vaping Use: Never used Substance Use Topics Alcohol use: No Drug use: No Objective Physical Exam Vitals and nursing note reviewed. Constitutional: General: She is not in acute distress. Appearance: Normal appearance. She is not ill-appearing. Musculoskeletal: General: Swelling present. No tenderness, deformity or signs of injury. Normal range of motion. Right elbow: Swelling and effusion present. No deformity or lacerations. Normal range of motion. Notenderness. Arms: Neurological: Mental Status: She is alert. ASSESSMENT/PLAN: 1. Elbow swelling, right - ICD9: 719.02, ICD10: M25.421 (primary diagnosis) - XR ELBOW SPECIAL VIEWS AP/LAT/OTHER RIGHT FINDINGS: No acute fractures or subluxations are noted. The radiocapitellar and ulnotrochlear joint spaces are maintained. No fat pad sign to suggest joint effusion. The mineralization of the bones is normal. There is mild soft tissue swelling along the olecranon. IMPRESSION: No acute fractures identified in the right elbow. Mild soft tissue swelling along the olecranon. Manager Target: ARIA Transcribe Date/Time: Aug 06 2023 10:19A Dictated by : PAULETTE PERKINS MD 2. Olecranon bursitis of right elbow - ICD9: 726.33, ICD10: M70.21 - OWEN wrap applied to right elbow. - RICE therapy as directed. - Follow-up with your PCP in 3-5 days if symptoms have not improved or sooner if symptoms worsen - Discussed red flags and need for immediate medical evaluation if any occur. - Discussed supportive care treatment with fluids, rest and analgesia. - Discussed expected course of illness Haley Seaman APRN.KHURRAM documented in this encounterSt. [facility] Miscellaneous Notes* Telephone Encounter - Jose Summers - 05/06/2023 8:38 AM EST See previous message. Order was printed and faxed to [facility] in [place]. Jose Summers * Telephone Encounter - Deloris Chavez APRN.CNP - 05/05/2023 7:59 PM EST Can we please fax the script to where patient indicated. Deloris Chavez APRN.CNP * Telephone Encounter - Saloni Camacho RN - 05/05/2023 1:33 PM EST Patient calling to say the script for oxygen tanks needs to go to [facility] in [place].She does not know fax #. Saloni Camacho, RN documented in this encounterSt. [facility] Instructions* Patient Instructions* Deloris Chavez APRN.CONTENT MANAGEMENT CONSULTANT - 05/05/2023 9:37 AM EST Start the omnicef twice daily X 10 days. 2. Start the prednisone. The prednisone taper will be 4 tablets for 3 days; 3 tablets for 3 days; 2 tablets for 3 days; then1 tablet for 3 days. Please do no use other anti-inflammatories (like ibuprofen, aleve, naproxen, etc) while you are on this medication. 3. Tessalon perles as needed. Home going instructions for Viral Upper Respiratory Infections In General: - Drink lots of fluids - at least one gallon of non-caffeinated liquids per day - Make sure you are eating well - Get plenty of rest - at least 8 hours of sleep per night for adults - ibuprofen 600mg every 8 hours as needed for discomfort - acetaminophen 500mg every 4-6 hours as needed for fever and discomfort. - may alternate ibuprofen and acetaminophen For nasal congestion try: -Vaporizers, Neti Pot, humidifiers, hot showers, and hot fluids help open respiratory and sinus passages. - Ester Nasal [place] may offer relief of nasal and head congestion 2-3 times per day as needed. - Sudafed is a safe and effective decongestant for people who do not have high blood pressure. Do not take Sudafed if you have ever been told that you have high blood pressure or hypertension. General dosing guidelines: Immediate release: 60 mg every 4-6 hours; Extended release: 120 mg every 12 hours or 240 mg every 24 hours; maximum: 240 mg/24 hours. For Sore Throat try: - Salt water gargles every 2-3 hours as needed for discomfort - Chloraceptic spray or throat lozenges (Cepacol) For Cough and chest congestion try one of the following: - Mucinex or Robitussin are expectorants. You may take 200-400 mg every 4 hours to a not to exceed 2,400 mg/day OR Extended release tablet: 600-1200 mg every 12 hours, not to exceed 2,400 mg/day - Delsym is a cough suppressant: Oral: 10-20 mg every 4 hours or 30 mg every 6-8 hours OR Extended release: 60 mg twice daily; maximum: 120 mg/day - If you have high blood pressure or hypertension it is safe to take Coricidin HBP Cough & Cold. If you smoke it is advised that you quit smoking. CONTACT YOUR DOCTOR IF: You have fevers for longer than five days or a fever more than 102 degrees You are still sick after 10 days After several days you are getting worse rather than better 4. You develop nausea, vomiting, diarrhea, or a rash. Go to the ER if you - experience pressure or pain in your chest - experience difficulty swallowing - experience difficulty breathing Follow up in 7-10 days or before if your symptoms get worse. documented in this encounterSt. [facility] [facility] History of Present illness Narrative* Deloris Chavez APRN.CONTENT MANAGEMENT CONSULTANT - 05/05/2023 9:22 AM EST This is a 62 year old female who presents today with: Patient presents with: Recheck: Follow up URI- still congested HISTORY OF PRESENT ILLNESS: Santy Raza is a 62 year old female. Patient presents with: Recheck: Follow up URI- still congested Pt presents today with complaint of some chest congestion. + sinus drainage. Will cough so hard that her left posterior head pain. Cough is productive -- dark yellow or yellow/green. Bad for the last 4 days. Using the nebulizers. No fevers/chills. Using home O2. Uses primarily about 3 times daily when she is feeling more SOB. Refers that she worse the majority of yesterday. Started using home O2 after her last hospitalization. Refers oxygen level will drop in the upper 80's sometimes without the oxygen. Usually uses 2L via [place]. PAST MEDICAL HISTORY: PAST MEDICAL HISTORY Diagnosis Date Allergic rhinitis, cause unspecified BMI 45.0-49.9, adult ([facility]) 08/27/2022 Essential hypertension, benign Hypothyroidism 09/26/2015 Mixed conductive and sensorineural hearing loss TRINI on CPAP Other anxiety states Perforated tympanic membrane 03/29/2011 S/P repair of ventral hernia 09/06/2022 Synovitis and tenosynovitis, unspecified Tobacco abuse 03/23/2012 PAST SURGICAL HISTORY Procedure Laterality Date COLONOSCOPY SCRN NOT HIGH RISK 09/13/2020 EGD 10/25/2020 L'SCOPE DX W/WO BRUSHINGS/WASHINGS 09/05/2022 Dr. Guadarrama LIG/TRNSXJ FLP TUBE ABDL/VAG APPR UNI/BI Tubal ligation LX REPAIR RECURRENT VENTRAL HERNIA 09/05/2022 open, w/ mesh. Dr. Guadarrama MYRINGOTOMY ASPIR&/EUSTACHIAN TUBE NFLTJ ANES Myringotomy/tubes NEUROPLASTY &/TRANSPOS MEDIAN NRV CARPAL TUNNE Bilateral 01/15/2019 Bilateral carpal tunnel release REDUCTION OF LARGE BREAST 04/23/2016 STEREOTACT BREAST BX EA LESION PC 09/30/2018 left stereotactic breast biopsy w/vacuum assisted core needle biopsy, specimen radiograph and marker placement ALLERGIES Doxycycline Monohydrate, Hctz [Amiloride-Hydrochlorothiazide], Levaquin [Levofloxacin], Meloxicam, and Peanuts MEDICATIONS Current Outpatient Medications Medication Sig ALPRAZolam (XANAX) 1 mg tablet Take 1 tablet by mouth once daily as needed for anxiety for up to 30days. albuterol (PROVENTIL) 2.5 mg /3 mL (0.083 %) nebulizer solution Use 3 mL via nebulizer every 6 hours as needed for wheezing/shortness of breath. ondansetron (ZOFRAN) 4 mg tablet Take 1 tablet by mouth every 8 hours as needed for nausea/vomiting. benzonatate (TESSALON PERLES) 100 mg capsule Take 1-2 capsules by mouth three times a day as neededfor cough. citalopram (CELEXA) 40 mg tablet Take 1 tablet by mouth once daily. loratadine (CLARITIN) 10 mg tablet Take 1 tablet by mouth once daily. buPROPion XL (WELLBUTRIN XL) 150 mg 24 hr tablet Take 1 tablet by mouth once daily. atorvastatin (LIPITOR) 10 mg tablet take 1 tablet by mouth daily at bedtime for cholesterol fluticasone (FLONASE) 50 mcg/actuation nasal spray Use 2 Sprays in each nostril once daily. Rinse mouth after use. levothyroxine (LEVOXYL) 200 mcg tablet Take 1 tablet by mouth once daily. Take on empty stomach. For thyroid amitriptyline (ELAVIL) 25 mg tablet Take 1 tablet by mouth daily at bedtime. amLODIPine (NORVASC) 5 mg tablet take 1 tablet by mouth once daily Cholecalciferol, Vitamin D3, 125 mcg (5,000 unit) cap Take 1 capsule by mouth once daily. lisinopril (ZESTRIL) 40 mg tablet Take 1 tablet by mouth once daily. budesonide-formoterol (SYMBICORT) 160-4.5 mcg/actuation inhaler Inhale 2 Puffs as instructed twice daily. furosemide (LASIX) 20 mg tablet Take 1 tablet by mouth once daily. Ipratropium (ATROVENT HFA) 17 mcg/actuation inhaler Inhale 2 Puffs as instructed every 6 hours. lansoprazole (PREVACID) 15 mg capsule Take 1 capsule by mouth once daily. Nebulizer Accessories misc 1 Each as directed. Nebulizer tubing and mouth piece. faxed to dexAMETHasone (DEXASOL) 0.1 % ophthalmic solution Use 1 Drop in both eyes every 12 hours as needed.Instill 2 drops into affected ear twice daily as needed. SUCRAID 8,500 unit/mL soln baclofen (LIORESAL) 10 mg tablet TAKE 1/2 TO 1 TABLET BY MOUTH TWICE A DAY NEEDED FOR SPASMS tegaserod hydrogen maleate 6 mg tablet (ZELNORM) Take 1 tablet (6 mg) by mouth twice daily before meals. Bifidobacterium Infantis (ALIGN) 4 mg cap Take 1 capsule by mouth once daily. CPAP autoCPAP 5-15 cmH2O, mask, tubing, filters, heated humidity, lifetime supplies. Dx: TRINI Nebulizer 1 Each as needed. NEBULIZER TUBING AND SUPPLIES. DX: CHRONIC BRONCHITIS J41.1, WHEEZING R06.2. FAX TO [employer] [phone] COMPOUNDED PRESCRIPTION Nebulizer for albuterol every fours as needed ICD: R06.2 No current facility-administered medications for this visit. FAMILY HISTORY Problem Relation Age of Onset No Known Problems Father Coronary Artery Disease Mother PE Asthma Mother Multiple Sclerosis Mother Coronary Artery Disease Brother None Brother Coronary Artery Disease Sister Colon Cancer No Family History Anesthesia Problems No Family History Social History Tobacco Use Smoking status: Former Packs/day: 1.00 Years: 35.00 Additional pack years: 0.00 Total pack years: 35.00 Types: Cigarettes Start date: 05/29/1987 Quit date: 03/02/2023 Years since quittin.1 Smokeless tobacco: Never Vaping Use Vaping Use: Never used Substance Use Topics Alcohol use: No Drug use: No EXAM: BP 114/72 Pulse 69 Resp 16 LMP 09/14/2013 SpO2 92% PHYSICAL EXAM: General Appearance: Well appearing, alert, in no acute distress, well-hydrated, well nourished.. Skin: Skin color, texture, turgor normal, no suspicious rashes or lesions. Head: Normocephalic, no masses, lesions, tenderness or abnormalities. Eyes: Anicteric sclera. Extraocular movements are intact. . Ears: External ears normal, canals clear. Normal TMs bilaterally. Oropharynx: Lips, mucosa, and tongue normal, teeth and gums normal, oropharynx normal. Neck: Supple, no adenopathy; thyroid symmetric, normal size, no bruits. Lungs: Lungs clear to auscultation. No wheezing, rhonchi, rales.. Heart: RRR without murmur, gallop, or rubs. No ectopy. Neurologic: Gait normal w/ walker. ASSESSMENT/PLAN: 1. Sinobronchitis - ICD9: 473.9, 490, ICD10: J32.9, J40 (primary diagnosis) - Will begin treatment with as per antibiotic as written, see orders - CEFDINIR 300 MG CAPSULE - PREDNISONE 10 MG TABLET 2. Mucopurulent chronic bronchitis (HCC) - ICD9: 491.1, ICD10: J41.1 - PREDNISONE 10 MG TABLET - BENZONATATE 100 MG CAPSULE Discussed treatment plan and patient voices understanding. Patient's questions answered appropriately. Medications and potential side effects were discussed and patient voices understanding. Return to the office as scheduled or as needed for worsening/no improvement. Deloris Chavez APRN.CONTENT MANAGEMENT CONSULTANT documented in this encounterSt. [facility] [facility]11-17-[facility]23 Miscellaneous Notes* Telephone Encounter - Jossie Rodrigues LPN - 05/02/2023 4:15 PM EST Faxed to [facility] in [place]. [employer] message sent to notify patient. * Telephone Encounter - Deloris Chavez APRN.CNP - 05/02/2023 3:51 PM EST Script done. Please fax as requested. Deloris Chavez APRN.KHURRAM * Telephone Encounter - Shirlene Abreu LPN - 05/01/2023 9:13 AM EST Patient returned call and went over notes below. Patient said oxygen was ordered when she was in patient at [facility] transferred from [place] ER there. She said Dr parker Butler ordered the oxygen, 2 liters oxygen to use when she was up and around being active. * Telephone Encounter - Kishore Driscoll MA - 05/01/2023 8:35 AM EST Unable to obtain previous O2 order. Attempted to contact patient, unable to reach. Left message PCPis out of the office & covering doctor will have to authorize. Please clarify who prescribed previously, how many liters per minute, is this continuous or at night or at certain times? Attempted to call DME as well & no answer. Design Coordinator states office was supposed to open at 830 AM however no one is in at this time. Will try back later. Kishore Driscoll MA documented in this encounterSt. [facility]11-[facility]-2023 Miscellaneous Notes* Telephone Encounter - Johanna Faith APRN.CNP - 04/23/2023 8:14 AM EST The following approved medication requests have been transmitted electronically. Requested Prescriptions Signed Prescriptions Disp Refills ALPRAZolam (XANAX) 1 mg tablet 30 tablet 0 Sig: Take 1 tablet by mouth once daily as needed for anxiety for up to 30 days. Johanna Faith APRN.CNP PDMP website checked and validated. All prescriptions have been APPROPRIATELY filled. No suspiciousactivity was identified. 04/23/2023 by Johanna Faith APRN.CNP * Telephone Encounter - Bud Shine Ma - 04/23/2023 7:46 AM EST Patient last visit with PCP 04/08/23 Follow up appointment scheduled none Bud Shine Ma documented in this encounterSt. [facility]11-07-2023 Miscellaneous Notes* Telephone Encounter - Jose Summers - 04/22/2023 8:09 AM EST Patient phones requesting refills as follows: Requested Prescriptions Pending Prescriptions Disp Refills albuterol (PROVENTIL) 2.5 mg /3 mL (0.083 %) nebulizer solution 300 mL 1 Sig: Use 3 mL via nebulizer every 6 hours as needed for wheezing/shortness of breath. Please review and advise. Jose Summers documented in this encounterSt. [facility]11-03-2023 Miscellaneous Notes* Telephone Encounter - Jose Summers - 04/18/2023 2:15 PM EDT Patient phones requesting refills as follows: Requested Prescriptions Pending Prescriptions Disp Refills ondansetron (ZOFRAN) 4 mg tablet 30 tablet 3 Sig: Take 1 tablet by mouth every 8 hours as needed for nausea/vomiting. SABA 04/08/23 NOV 04/18/23 Please review and advise. Jose Summers documented in this encounterSt. [facility]11-01-2023 Miscellaneous Notes* Telephone Encounter - Rona Coronado - 04/16/2023 6:31 PM EDT Patient given results and verbalized understanding of instructions given. Rona Coronado * Telephone Encounter - Jose Summers LPN - 04/16/2023 2:11 PM EDT Received the following message from pt via [employer]: Santy Avilez Famp My Chart Rx Pool (supporting Deloris Chavez APRN.CNP) 1 minute ago (2:09 PM) I was in at urgent care clinic this morning. Earache, cough, drainage. He called in ciprofloxacin and desamethasone otic suspension for my ears and now after all these the insurance don t want to payfor it. I don t have 134.00 . Is there anything else that I could get instead? I meant to ask him if I could get a refill on the benzonatate for my coughing. Thank you documented in this encounterSt. [facility]11-[facility]-2023 Miscellaneous Notes* Addendum Note - Tito Ann APRN.CNP - 04/16/2023 3:25 PM EDTAddended by: TITO ANN on: 04/16/2023 03:25 PM Modules accepted: Orders * Addendum Note - Tito Ann APRN.CNP - 04/16/2023 3:23 PM EDTAddended by: TITO ANN on: 04/16/2023 03:23 PM Modules accepted: Orders documented in this encounterSt. [facility]11[facility] History of Present illness Narrative* Tito Ann GLASS MECHANIC.CONTENT MANAGEMENT CONSULTANT - 04/16/2023 9:30 AM EDT Subjective HPI Nontoxic-appearing female presents urgent care chief plaint URI-like symptoms. Duration of symptoms1 day. Associated some cough nasal congestion. Presents today due to new onset bilateral otorrhea. Patient states the ears have became painful recently. Has not use any OTC medications today. Did useTylenol yesterday. This did help. Denies known sick contacts. No loss of hearing. Denies any fever body aches chills productive cough chest pain shortness of breath pleuritic pain hemoptysis nausea vomiting abdominal pain change in bowel or bladder habits. Past medical history prescription medication use and allergies reviewed. .Patient presents with: Cough: Cough, congestion and bilateral ear pain x 1 day PAST MEDICAL HISTORY Diagnosis Date Allergic rhinitis, cause unspecified BMI 45.0-49.9, adult ([facility]) 08/27/2022 Essential hypertension, benign Hypothyroidism 09/26/2015 Mixed conductive and sensorineural hearing loss TRINI on CPAP Other anxiety states Perforated tympanic membrane 03/29/2011 S/P repair of ventral hernia 09/06/2022 Synovitis and tenosynovitis, unspecified Tobacco abuse 03/23/2012 PAST SURGICAL HISTORY Procedure Laterality Date COLONOSCOPY SCRN NOT HIGH RISK 09/13/2020 EGD 10/25/2020 L'SCOPE DX W/WO BRUSHINGS/WASHINGS 09/05/2022 Dr. Guadarrama LIG/TRNSXJ FLP TUBE ABDL/VAG APPR UNI/BI Tubal ligation LX REPAIR RECURRENT VENTRAL HERNIA 09/05/2022 open, w/ mesh. Dr. Guadarrama MYRINGOTOMY ASPIR&/EUSTACHIAN TUBE NFLTJ ANES Myringotomy/tubes NEUROPLASTY &/TRANSPOS MEDIAN NRV CARPAL TUNNE Bilateral 01/15/2019 Bilateral carpal tunnel release REDUCTION OF LARGE BREAST 04/23/2016 STEREOTACT BREAST BX EA LESION PC 09/30/2018 left stereotactic breast biopsy w/vacuum assisted core needle biopsy, specimen radiograph and marker placement ALLERGIES Doxycycline Monohydrate, Hctz [Amiloride-Hydrochlorothiazide], Levaquin [Levofloxacin], Meloxicam, and Peanuts MEDICATIONS citalopram (CELEXA) 40 mg tablet Take 1 tablet by mouth once daily. loratadine (CLARITIN) 10 mg tablet Take 1 tablet by mouth once daily. buPROPion XL (WELLBUTRIN XL) 150 mg 24 hr tablet Take 1 tablet by mouth once daily. atorvastatin (LIPITOR) 10 mg tablet take 1 tablet by mouth daily at bedtime for cholesterol fluticasone (FLONASE) 50 mcg/actuation nasal spray Use 2 Sprays in each nostril once daily. Rinse mouth after use. benzonatate (TESSALON PERLES) 100 mg capsule Take 1-2 capsules by mouth three times daily as neededfor cough. levothyroxine (LEVOXYL) 200 mcg tablet Take 1 tablet by mouth once daily. Take on empty stomach. For thyroid amitriptyline (ELAVIL) 25 mg tablet Take 1 tablet by mouth daily at bedtime. amLODIPine (NORVASC) 5 mg tablet take 1 tablet by mouth once daily Cholecalciferol, Vitamin D3, 125 mcg (5,000 unit) cap Take 1 capsule by mouth once daily. lisinopril (ZESTRIL) 40 mg tablet Take 1 tablet by mouth once daily. budesonide-formoterol (SYMBICORT) 160-4.5 mcg/actuation inhaler Inhale 2 Puffs as instructed twice daily. Ipratropium (ATROVENT HFA) 17 mcg/actuation inhaler Inhale 2 Puffs as instructed every 6 hours. lansoprazole (PREVACID) 15 mg capsule Take 1 capsule by mouth once daily. albuterol (PROVENTIL) 2.5 mg /3 mL (0.083 %) nebulizer solution Use 3 mL via nebulizer every 6 hours as needed for wheezing/shortness of breath. Nebulizer Accessories misc 1 Each as directed. Nebulizer tubing and mouth piece. faxed to [employer] 0.3-0.1 % otic suspension Use 2 Drops in both ears as needed. 2 drops twice daily as needed. dexAMETHasone (DEXASOL) 0.1 % ophthalmic solution Use 1 Drop in both eyes every 12 hours as needed.Instill 2 drops into affected ear twice daily as needed. ondansetron (ZOFRAN) 4 mg tablet Take 1 tablet by mouth every 8 hours as needed for nausea/vomiting. SUCRAID 8,500 unit/mL soln baclofen (LIORESAL) 10 mg tablet TAKE 1/2 TO 1 TABLET BY MOUTH TWICE A DAY NEEDED FOR SPASMS tegaserod hydrogen maleate 6 mg tablet (ZELNORM) Take 1 tablet (6 mg) by mouth twice daily before meals. CPAP autoCPAP 5-15 cmH2O, mask, tubing, filters, heated humidity, lifetime supplies. Dx: TRINI Nebulizer 1 Each as needed. NEBULIZER TUBING AND SUPPLIES. DX: CHRONIC BRONCHITIS J41.1, WHEEZING R06.2. FAX TO [facility] [place] [phone] COMPOUNDED PRESCRIPTION Nebulizer for albuterol every fours as needed ICD: R06.2 furosemide (LASIX) 20 mg tablet Take 1 tablet by mouth once daily. Bifidobacterium Infantis (ALIGN) 4 mg cap Take 1 capsule by mouth once daily. FAMILY HISTORY Problem Relation Age of Onset No Known Problems Father Coronary Artery Disease Mother PE Asthma Mother Multiple Sclerosis Mother Coronary Artery Disease Brother None Brother Coronary Artery Disease Sister Colon Cancer No Family History Anesthesia Problems No Family History Social History Tobacco Use Smoking status: Former Packs/day: 1.00 Years: 35.00 Additional pack years: 0.00 Total pack years: 35.00 Types: Cigarettes Start date: 05/29/1987 Quit date: 03/02/2023 Years since quittin.1 Smokeless tobacco: Never Vaping Use Vaping Use: Never used Substance Use Topics Alcohol use: No Drug use: No BP 132/76 Pulse 88 Temp 37 C (98.6 F) (Tympanic) Resp 18 Wt (!) 136.5 kg (301 lb) LMP 09/14/2013 SpO2 96% BMI 48.61 kg/m Review of Systems Constitutional: Negative for chills, fever and malaise/fatigue. HENT: Positive for congestion, ear discharge and ear pain. Negative for sinus pain and sore throat. Eyes: Negative for blurred vision, pain, discharge and redness. Respiratory: Positive for cough. Negative for hemoptysis, sputum production, shortness of breath, wheezing and stridor. Cardiovascular: Negative for chest pain. Gastrointestinal: Negative for abdominal pain, diarrhea, nausea and vomiting. Musculoskeletal: Negative for myalgias. Skin: Negative for itching and rash. Neurological: Negative for dizziness and headaches. Objective Physical Exam Constitutional: General: She is not in acute distress. Appearance: She is not diaphoretic. HENT: Head: Normocephalic. Jaw: No trismus, tenderness, swelling or pain on movement. Right Ear: Ear canal and external ear normal. Left Ear: Ear canal and external ear normal. Ears: Comments: Perforation noted bilateral TMs. Otorrhea greater in left than right. Nose: Congestion present. Mouth/Throat: Mouth: Mucous membranes are moist. Pharynx: Oropharynx is clear. Uvula midline. No pharyngeal swelling, oropharyngeal exudate, posterior oropharyngeal erythema or uvula swelling. Eyes: Conjunctiva/sclera: Conjunctivae normal. Pupils: Pupils are equal, round, and reactive to light. Cardiovascular: Rate and Rhythm: Normal rate and regular rhythm. Heart sounds: Normal heart sounds. Pulmonary: Effort: Pulmonary effort is normal. No tachypnea, accessory muscle usage or respiratory distress. Breath sounds: Normal breath sounds. No stridor. No wheezing, rhonchi or rales. Abdominal: General: There is no distension. Palpations: Abdomen is soft. Tenderness: There is no abdominal tenderness. There is no guarding or rebound. Musculoskeletal: Cervical back: Normal range of motion and neck supple. No edema, erythema, rigidity or tenderness. No pain with movement. Normal range of motion. Lymphadenopathy: Cervical: No cervical adenopathy. Skin: General: Skin is warm and dry. Neurological: Mental Status: She is alert and oriented to person, place, and time. ASSESSMENT/PLAN: 1. Otorrhea, bilateral - ICD9: 388.60, ICD10: H92.13 Diagnosed with bilateral otorrhea. Will use Ciprodex. Has tolerated this eardrop in the past. Patient was educated on supportive therapies. Patient will follow up with primary care provider as needed. Patient was instructed to immediately proceed to emergency room for any new, worsening, or symptoms lasting longer than anticipated. The patient's clinical presentation is otherwise unremarkable at this time. Based on exam and clinical finding, the patient is stable for discharge. Plan of care wasdiscussed with patient. Patient verbalizes understanding and agrees to plan of care. This note was generated using [employer] software. It may contain errors in wording, punctuation, or spelling. Tito Ann APRN.KHURRAM documented in this encounterSt. Mary'[facility]10[facility]27-2023 Miscellaneous Notes* Telephone Encounter - Tayla Au RN - 04/11/2023 9:18 AM EDT 04/11/23: Gareth jones'jaun CT Chest done 02/28/2023 at [facility] in [place]: PH: . Donnica pushing now. 04/11/23: Film uploaded; notified Jose L. Tayla Au RN Respiratory [facility] documented in this encounterSt. Mary'[facility]10-25-2023 Miscellaneous Notes* Telephone Encounter - Keren Mackey LPN - 04/09/2023 7:48 AM EDT Patient has been identified by name and date of : Yes, Provider Deloris Chavez CNP Date 04/09/23 Time 7:49 am Patient phones for refill(s): Requested Prescriptions Pending Prescriptions Disp Refills citalopram (CELEXA) 40 mg tablet 30 tablet 0 Sig: Take 1 tablet by mouth once daily. Date of last office visit in primary care: 04/08/2023 Date of next office visit in primary care: Visit date not found Last 2 Encounter Wt Readings: Date: Wt: 04/08/2023 136.5 kg (301 lb) 03/17/2023 135.2 kg (298 lb) Previous labs/tests for medication: Not applicable Please advise. Thank you. Keren Mackey LPN. documented in this encounterSt. Mary'[facility]10[facility]24-[facility]23 Instructions* Patient Instructions* Gareth Domingo APRN.CNP - 04/08/2023 1:[address] Lung Screen Results The CT scan that you will have done will show if you have any nodules (small spots) in your lungs that are suspicious for cancer. Around 90% of the patients who have this scan done are found to have at least one nodule. Most nodules are benign (not cancer) and of no harm to you at all. A specialistwill make a scientific evaluation about whether or not a nodule is worrisome based on its size and shape. The radiologist who will read your scan will put it into one of four categories: LUNG-RADS Category Description Overall Probability of Malignancy Recommended Follow-Up 1 Negative No nodules and definitely benign (non-cancerous nodules) Essentially 0. 1 Year - Follow-up Low dose CT 2 Benign Appearance or Behavior Nodules with a very low likelihood of becoming cancer due to size or lack of growth Less than 1% 1 Year - Follow-up Low dose CT 3 Probably Benign Probably benign finding, short term follow-up recommended 1 to 2% 6 Months - Follow-up CT 4 A,B,or X Suspicious Findings for which additional diagnostic testing and/or biopsy is recommended Will be calculated based on nodule characteristics. Dependent on what is seen on the exam. [address], PET, Biopsy At times, we may see something outside of the lungs on the scan that could be a health concern. Below are some of the most common findings: S Clinically Significant or Potentially Clinically Significant Findings (non lung cancer) Referral or additional imaging/labs depending on result. Approximately 10% of people receive this result. Coronary Artery Calcifications (Moderate or Severe) - Referral to cardiology or PCP for further work-up and recommendations. Thyroid Nodule - TSH level and Thyroid Ultrasound dependent on size, referral to endocrinology. Adrenal Nodule - Blood work and referral to endocrinology. Others Lung Cancer Screening hotline: [phone] Lung Cancer Screening [phone] Billing Questions: or [email or web address] Lung Cancer Screening Team: Donald Childress CNP; Amanda Garcia PA-C; Kelin Dacosta CNP; Pattie Mcneil CNP, Jenniffer Rice PA-C, Charleen Mathew PA-C, Gareth Domingo, CONTENT MANAGEMENT CONSULTANT : [phone] documented in this encounterSt. [facility] Instructions* Patient Instructions* Deloris Chavez APRN.CNP - 04/08/2023 10:56 AM EDT Continue the same. Plan to get the CT scan. If it gets delayed, there is an order for a chest xray that you can do next week. If you get new/worsening symptoms -- let us know. documented in this encounterSt. [facility] [facility] History of Present illness Narrative* Deloris Chavez APRN.CONTENT MANAGEMENT CONSULTANT - 04/08/2023 10:42 AM EDT This is a 62 year old female who presents today with: Patient presents with: Recheck: Follow up on chest xray; saw Pulm today- she will have CT and follow up with Pulm HISTORY OF PRESENT ILLNESS: Santy Raza is a 62 year old female. Patient presents with: Recheck: Follow up on chest xray; saw Pulm today- she will have CT and follow up with Pulm Pt presents today for recheck. She had recently had an inpatient hospital stay with pneumonia. She did follow-up with pulmonology on 03/17/2023. The plan was to repeat the chest x-ray in 6 weeks.She repeated the chest x-ray little early on 04/02/2023, and it continued to show mild right upper lobe airspace disease. No acute process. Continue follow-up in 2 weeks. Today she reports that she continues to be smoke-free for greater than 1 month. She continues with a cough. No fevers or chills. Does not feel that her symptoms are worsening any. Has been wearing some home O2. She did have follow-up with pulmonology today, and she is being scheduled for a CT scan. PAST MEDICAL HISTORY: PAST MEDICAL HISTORY Diagnosis Date Allergic rhinitis, cause unspecified BMI 45.0-49.9, adult (HCC) 08/27/2022 Essential hypertension, benign Hypothyroidism 09/26/2015 Mixed conductive and sensorineural hearing loss TRINI on CPAP Other anxiety states Perforated tympanic membrane 03/29/2011 S/P repair of ventral hernia 09/06/2022 Synovitis and tenosynovitis, unspecified Tobacco abuse 03/23/2012 PAST SURGICAL HISTORY Procedure Laterality Date COLONOSCOPY SCRN NOT HIGH RISK 09/13/2020 EGD 10/25/2020 L'SCOPE DX W/WO BRUSHINGS/WASHINGS 09/05/2022 Dr. Guadrarama LIG/TRNSXJ FLP TUBE ABDL/VAG APPR UNI/BI Tubal ligation LX REPAIR RECURRENT VENTRAL HERNIA 09/05/2022 open, w/ mesh. Dr. Guadarrama MYRINGOTOMY ASPIR&/EUSTACHIAN TUBE NFLTJ ANES Myringotomy/tubes NEUROPLASTY &/TRANSPOS MEDIAN NRV CARPAL TUNNE Bilateral 01/15/2019 Bilateral carpal tunnel release REDUCTION OF LARGE BREAST 04/23/2016 STEREOTACT BREAST BX EA LESION PC 09/30/2018 left stereotactic breast biopsy w/vacuum assisted core needle biopsy, specimen radiograph and marker placement ALLERGIES Doxycycline Monohydrate, Hctz [Amiloride-Hydrochlorothiazide], Levaquin [Levofloxacin], Meloxicam, and Peanuts MEDICATIONS Current Outpatient Medications Medication Sig loratadine (CLARITIN) 10 mg tablet Take 1 tablet by mouth once daily. citalopram (CELEXA) 40 mg tablet Take 1 tablet by mouth once daily. buPROPion XL (WELLBUTRIN XL) 150 mg 24 hr tablet Take 1 tablet by mouth once daily. atorvastatin (LIPITOR) 10 mg tablet take 1 tablet by mouth daily at bedtime for cholesterol fluticasone (FLONASE) 50 mcg/actuation nasal spray Use 2 Sprays in each nostril once daily. Rinse mouth after use. benzonatate (TESSALON PERLES) 100 mg capsule Take 1-2 capsules by mouth three times daily as neededfor cough. levothyroxine (LEVOXYL) 200 mcg tablet Take 1 tablet by mouth once daily. Take on empty stomach. For thyroid amitriptyline (ELAVIL) 25 mg tablet Take 1 tablet by mouth daily at bedtime. amLODIPine (NORVASC) 5 mg tablet take 1 tablet by mouth once daily Cholecalciferol, Vitamin D3, 125 mcg (5,000 unit) cap Take 1 capsule by mouth once daily. lisinopril (ZESTRIL) 40 mg tablet Take 1 tablet by mouth once daily. budesonide-formoterol (SYMBICORT) 160-4.5 mcg/actuation inhaler Inhale 2 Puffs as instructed twice daily. furosemide (LASIX) 20 mg tablet Take 1 tablet by mouth once daily. Ipratropium (ATROVENT HFA) 17 mcg/actuation inhaler Inhale 2 Puffs as instructed every 6 hours. lansoprazole (PREVACID) 15 mg capsule Take 1 capsule by mouth once daily. albuterol (PROVENTIL) 2.5 mg /3 mL (0.083 %) nebulizer solution Use 3 mL via nebulizer every 6 hours as needed for wheezing/shortness of breath. Nebulizer Accessories misc 1 Each as directed. Nebulizer tubing and mouth piece. faxed to [employer] 0.3-0.1 % otic suspension Use 2 Drops in both ears as needed. 2 drops twice daily as needed. dexAMETHasone (DEXASOL) 0.1 % ophthalmic solution Use 1 Drop in both eyes every 12 hours as needed.Instill 2 drops into affected ear twice daily as needed. ondansetron (ZOFRAN) 4 mg tablet Take 1 tablet by mouth every 8 hours as needed for nausea/vomiting. SUCRAID 8,500 unit/mL soln baclofen (LIORESAL) 10 mg tablet TAKE 1/2 TO 1 TABLET BY MOUTH TWICE A DAY NEEDED FOR SPASMS tegaserod hydrogen maleate 6 mg tablet (ZELNORM) Take 1 tablet (6 mg) by mouth twice daily before meals. Bifidobacterium Infantis (ALIGN) 4 mg cap Take 1 capsule by mouth once daily. CPAP autoCPAP 5-15 cmH2O, mask, tubing, filters, heated humidity, lifetime supplies. Dx: TRINI Nebulizer 1 Each as needed. NEBULIZER TUBING AND SUPPLIES. DX: CHRONIC BRONCHITIS J41.1, WHEEZING R06.2. FAX TO [facility] [place] [phone] COMPOUNDED PRESCRIPTION Nebulizer for albuterol every fours as needed ICD: R06.2 No current facility-administered medications for this visit. FAMILY HISTORY Problem Relation Age of Onset No Known Problems Father Coronary Artery Disease Mother PE Asthma Mother Multiple Sclerosis Mother Coronary Artery Disease Brother None Brother Coronary Artery Disease Sister Colon Cancer No Family History Anesthesia Problems No Family History Social History Tobacco Use Smoking status: Former Packs/day: 1.00 Years: 35.00 Additional pack years: 0.00 Total pack years: 35.00 Types: Cigarettes Start date: 05/29/1987 Quit date: 03/02/2023 Years since quittin.1 Smokeless tobacco: Never Vaping Use Vaping Use: Never used Substance Use Topics Alcohol use: No Drug use: No EXAM: BP 132/70 Pulse 72 Resp 16 LMP 09/14/2013 SpO2 92% PHYSICAL EXAM: General Appearance: Well appearing, alert, in no acute distress, well-hydrated, well nourished.. Skin: Skin color, texture, turgor normal, no suspicious rashes or lesions. Head: Normocephalic, no masses, lesions, tenderness or abnormalities. Eyes: Anicteric sclera. Extraocular movements are intact. . Oropharynx: Lips, mucosa, and tongue normal, teeth and gums normal, oropharynx normal. Lungs: exp wheeze in left upper field, otherwise CTA. Heart: RRR without murmur, gallop, or rubs. No ectopy. Neurologic: Gait normal w/ walker. ASSESSMENT/PLAN: 1. Bacterial pneumonia - ICD9: 482.9, ICD10: J15.9 Send symptoms continue to be clinically stable and not worsening, will continue to monitor. We will wait for previously ordered CT. However, patient aware if CT has been to be delayed, to please repeat chest x-ray next week. Discussed with patient that if she gets any new or worsening or recurrent symptoms, she should notify provider. Discussed treatment plan and patient voices understanding. Patient's questions answered appropriately. Medications and potential side effects were discussed and patient voices understanding. Return to the office as scheduled or as needed for worsening/no improvement. Deloris Chavez APRN.CNP documented in this encounterSt. [facility] [facility] History of Present illness Narrative* Gareth Domingo APRN.CNP - 04/08/2023 9:14 AM EDT Images from the original note were not included. LUNG SCREENING VISIT PRIMARY CARE PHYSICIAN: Deloris Chavez APRN.CNP PULMONARY PROVIDER: Dr. Italo Schultz Results will be communicated via letter or electronic record if applicable. Visit Delivery: In Person Patient Visit Type: New to Screening Current or Ex-smoker? ex smoker Exam Type: baseline LDCT Number of Pack Years: 35 Current smoker (=0) or Number of Years since Quit: <1 year (03/02/2023) REQUESTER: The referring provider advised the patient to have screening. HISTORY OF PRESENT ILLNESS: Santy Raza is a 62 year old Former smoker who presents for lung screening. Pneumonia about a month ago admitted 02/27-03/02/2023. RML infiltrate. Treated with Augmentin as outpatient. Admitted for 2-3 days treated with IV medications. Not sure if she had steroids or not. Did not really have any symptoms other than right lateral chest pain. Had follow up x ray chest 04/02/2023 pt still has opacity in RUL. Respiratory symptoms include: SOB: Yes, walking, carrying in groceries, pushing a vacuum Chest tightness: Yes Coughing: Yes: Without mucus Hemoptysis: No Wheezing: Yes Fever/Chills: No Recent Respiratory Infection: Yes Unintentional weight loss: No Last 6 Encounter Wt Readings: Date: Wt: 04/08/2023 136.5 kg (301 lb) 03/17/2023 135.2 kg (298 lb) 01/29/2023 136.8 kg (301 lb 9.4 oz) 01/15/2023 136.8 kg (301 lb 9.6 oz) 09/02/2022 132.5 kg (292 lb) 08/27/2022 127 kg (280 lb) ECOG PERFORMANCE STATUS: 2- Ambulatory and capable of all selfcare; unable to carry out work activities. Up and about > 50% of waking hrs. Modified Medical Research [place] Dyspnea Scale (MMRC) On level ground I walk slower than people of the same age because of breathlessness, or have to stop for breath when walking at my own pace 2 PAST MEDICAL HISTORY Diagnosis Date Allergic rhinitis, cause unspecified BMI 45.0-49.9, adult (HCC) 08/27/2022 Essential hypertension, benign Hypothyroidism 09/26/2015 Mixed conductive and sensorineural hearing loss TRINI on CPAP Other anxiety states Perforated tympanic membrane 03/29/2011 S/P repair of ventral hernia 09/06/2022 Synovitis and tenosynovitis, unspecified Tobacco abuse 03/23/2012 PAST SURGICAL HISTORY Procedure Laterality Date COLONOSCOPY SCRN NOT HIGH RISK 09/13/2020 EGD 10/25/2020 Dr.Des L'SCOPE DX W/WO BRUSHINGS/WASHINGS 09/05/2022 Dr. Guadarrama LIG/TRNSXJ FLP TUBE ABDL/VAG APPR UNI/BI Tubal ligation LX REPAIR RECURRENT VENTRAL HERNIA 09/05/2022 open, w/ mesh. Dr. Guadarrama MYRINGOTOMY ASPIR&/EUSTACHIAN TUBE NFLTJ ANES Myringotomy/tubes NEUROPLASTY &/TRANSPOS MEDIAN NRV CARPAL TUNNE Bilateral 01/15/2019 Bilateral carpal tunnel release REDUCTION OF LARGE BREAST 04/23/2016 STEREOTACT BREAST BX EA LESION PC 09/30/2018 left stereotactic breast biopsy w/vacuum assisted core needle biopsy, specimen radiograph and marker placement FAMILY HISTORY Problem Relation Age of Onset No Known Problems Father Coronary Artery Disease Mother PE Asthma Mother Multiple Sclerosis Mother Coronary Artery Disease Brother None Brother Coronary Artery Disease Sister Colon Cancer No Family History Anesthesia Problems No Family History loratadine (CLARITIN) 10 mg tablet Take 1 tablet by mouth once daily. citalopram (CELEXA) 40 mg tablet Take 1 tablet by mouth once daily. buPROPion XL (WELLBUTRIN XL) 150 mg 24 hr tablet Take 1 tablet by mouth once daily. atorvastatin (LIPITOR) 10 mg tablet take 1 tablet by mouth daily at bedtime for cholesterol fluticasone (FLONASE) 50 mcg/actuation nasal spray Use 2 Sprays in each nostril once daily. Rinse mouth after use. levothyroxine (LEVOXYL) 200 mcg tablet Take 1 tablet by mouth once daily. Take on empty stomach. For thyroid amitriptyline (ELAVIL) 25 mg tablet Take 1 tablet by mouth daily at bedtime. amLODIPine (NORVASC) 5 mg tablet take 1 tablet by mouth once daily Cholecalciferol, Vitamin D3, 125 mcg (5,000 unit) cap Take 1 capsule by mouth once daily. lisinopril (ZESTRIL) 40 mg tablet Take 1 tablet by mouth once daily. budesonide-formoterol (SYMBICORT) 160-4.5 mcg/actuation inhaler Inhale 2 Puffs as instructed twice daily. furosemide (LASIX) 20 mg tablet Take 1 tablet by mouth once daily. Ipratropium (ATROVENT HFA) 17 mcg/actuation inhaler Inhale 2 Puffs as instructed every 6 hours. lansoprazole (PREVACID) 15 mg capsule Take 1 capsule by mouth once daily. albuterol (PROVENTIL) 2.5 mg /3 mL (0.083 %) nebulizer solution Use 3 mL via nebulizer every 6 hours as needed for wheezing/shortness of breath. Nebulizer Accessories misc 1 Each as directed. Nebulizer tubing and mouth piece. faxed to [employer] 0.3-0.1 % otic suspension Use 2 Drops in both ears as needed. 2 drops twice daily as needed. dexAMETHasone (DEXASOL) 0.1 % ophthalmic solution Use 1 Drop in both eyes every 12 hours as needed.Instill 2 drops into affected ear twice daily as needed. ondansetron (ZOFRAN) 4 mg tablet Take 1 tablet by mouth every 8 hours as needed for nausea/vomiting. baclofen (LIORESAL) 10 mg tablet TAKE 1/2 TO 1 TABLET BY MOUTH TWICE A DAY NEEDED FOR SPASMS tegaserod hydrogen maleate 6 mg tablet (ZELNORM) Take 1 tablet (6 mg) by mouth twice daily before meals. Bifidobacterium Infantis (ALIGN) 4 mg cap Take 1 capsule by mouth once daily. CPAP autoCPAP 5-15 cmH2O, mask, tubing, filters, heated humidity, lifetime supplies. Dx: TRINI Nebulizer 1 Each as needed. NEBULIZER TUBING AND SUPPLIES. DX: CHRONIC BRONCHITIS J41.1, WHEEZING R06.2. FAX TO [employer] [phone] COMPOUNDED PRESCRIPTION Nebulizer for albuterol every fours as needed ICD: R06.2 benzonatate (TESSALON PERLES) 100 mg capsule Take 1-2 capsules by mouth three times daily as neededfor cough. (Patient not taking: Reported on 03/17/2023) SUCRAID 8,500 unit/mL soln (Patient not taking: Reported on 01/15/2023) ALLERGIES Allergen Reactions Doxycycline Monohyd* Vomiting Hctz [Amiloride-Hyd* Itching Levaquin [Levofloxa* Other: See Comments Jittery nervousness Meloxicam Itching, Rash, Swelling Peanuts Itching The medications and allergies were reviewed and reconciled for this patient and deemed current. Lung Cancer Risk Factors: 1.Tobacco Use: Start Age 27, Quit Age: 62, Average packs per day 1, Pack Years 35 2. Passive Smoke Exposure: Yes, as a Child and as an Adult 3. Personal hx of malignancy: No, Type of Cancer: 4. 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 Cleaning chemicals and wax and stripper chemicals 5. Race: White 6. Education: High School Graduate 7. BMI:Body mass index is 48.61 kg/m . Patient-entered Height: 5'5 Patient-entered Weight: 295 pounds 8. COPD: Yes 9. Pneumonia in the past 5 years: Yes 10. Is there a history of lung cancer in a first degree relative? No 11. Is there a history of lung cancer in a non-first degree relative? No 12. Is there a history of any other cancer in a first degree relative? No Health Maintenance Immunization History Administered Date(s) Administered COVID-19 original vaccine, age 12+ yr, monovalent (PFIZER-BIONTECH - WILLETT TOP) 10/23/2021 COVID-19 original vaccine, age 12+ yr, monovalent (PFIZER-BIONTECH - PURPLE TOP) 08/29/2020 09/19/2020 04/27/2021 10/23/2021 COVID-19 vaccine, age 12+ yr, bivalent (PFIZER-BIONTECH) 03/19/2022 diphtheria tetanus (DT) vaccine, pediatric 04/30/2004 influenza (IIV3) vaccine, age 3+ yr, trivalent (AFLURIA, FLULAVAL, FLUVIRIN, FLUZONE) 03/23/2020 02/18/2021 03/19/2022 influenza (IIV4) vaccine, age 6 mo - 64 yr, quadrivalent (AFLURIA, FLULAVAL, FLUZONE) 08/27/2016 03/23/2019 influenza (IIV4) vaccine, age 6 mo - 64 yr, quadrivalent, PF (AFLURIA, FLUARIX, FLULAVAL, FLUZONE) 02/18/2023 influenza vaccine, unspecified formulation 05/02/2010 pneumococcal (PCV20) vaccine, 20 valent (PREVNAR 20) 10/23/2021 pneumococcal (PPV23) vaccine, 23 valent (PNEUMOVAX 23) 11/21/2015 respiratory syncytial virus (RSV) vaccine, bivalent (ABRYSVO) 02/18/2023 tetanus diphtheria pertussis (Tdap) vaccine, age 7+ yr (ADACEL, BOOSTRIX) 11/21/2015 zoster (RZV) vaccine, recombinant (SHINGRIX) 02/14/2020 04/27/2021 Colonoscopy: 09/13/2020 Mammogram: 10/10/2022 DATA REVIEW I have directly visualized the testing documented: none Prior Imagin02-28-2023 Note ORIGINAL EXAMINATION: CT OF THE CHEST WITHOUT CONTRAST 02/28/2023 12:20 pm TECHNIQUE: CT of the chest was performed without the administration of intravenous contrast. Multiplanar reformatted images are provided for review. Automated exposure control, iterative reconstruction, and/or weight based adjustment of the mA/kV was utilized to reduce the radiation dose to as low as reasonably achievable. COMPARISON: Chest x-ray February 28, 2023 HISTORY: ORDERING SYSTEM PROVIDED HISTORY: Reason for Exam: Pt reports SOB, fever x2-3 days. concern for absess FINDINGS: Minor degenerative changes are noted in the spine. No other osseous abnormality is identified. Trace bilateral pleural effusions are noted. Minimal adjacent atelectasis is present at the lower lobes. Very prominent consolidation is evident at the mid to inferior right upper lobe, with multiple air bronchograms as well. Above this area there are very small scattered areas of ground-glass density. These are also evident more inferiorly. No other dense consolidation is visible. Small calcified mediastinal lymph nodes and right hilar lymph nodes are evident. No noncalcified adenopathy within the constraints of a noncontrast exam. Small sliding hiatal hernia. No additional contributory finding. IMPRESSION: Very prominent consolidative pneumonia within the right upper lobe with much smaller adjacent areas of infiltrate as well. Follow-up to resolution recommended to exclude non inflammatory etiologies. Trace bilateral pleural effusions with small areas of adjacent lower lobe atelectasis. Interpreted by: Lowell Bundy MD Preliminary Report By: Lowell Bundy MD Electronically signed By Lowell Bundy MD Dictated Date: 02/28/2023 12:27:35 PM Prelim Date: 02/28/2023 12:30:25 PM Sign Date: 02/28/2023 12:30:25 PM Ordering Provider: DONY Díaz XR Chest - Impression Only XR CHEST 2V FRONTAL/LAT Exam End: 04/02/2023 9:59 AM (Final result) Impression: IMPRESSION: Mild right upper lobe airspace disease. Otherwise no acute process. Continued follow up in 2 weeks recommended ... Pulmonary Function Testing: SPIROMETRY - BASELINE AND POST DILATOR ([id number]) - ordered on 01/19/20 [facility] [address] [place] [address] Test Date: 2020-01-19 Pat Name: SANTY RAZA Department: Room: Gender: Female Automatic Driller And Reamer: SARIKA Watson : 1960 Requested By: Ayush ONEAL III Order Number: [id number] Reading MD: Minh Velazquez Interpretive Statements ATS/ERS acceptability and repeatability standards for spirometry met. 2 Puffs of albuterol (180mcg) delivered by MDI via Aerochamber HR pre =74/min, HR post= 74 /min. IMPRESSION: Spirometry shows no obstruction. The mildly reduced FVC suggests restriction. Recommend lung volumes if clinically indicated. There is no significant broncho dilator response. The flow volume loop is normal. Electronically Signed On 01-19-2020 10:30:45 EDT by Minh Velazquez Site: WO ID: [id number] Name: SANTY RAZA Visit Date: 01/19/2020 Second ID: [id number] Referring Doctor: Ayush ONEAL III Automatic Driller And Reamer: SARIKA Watson Age: 59 : 1960 Sex: Female Race: Height: 65.00 Inches Weight: 286.00 Lbs BSA: 2.30 Order IDs: [id number] Requested Test(s): Spirometry - baselline and post dilator Post Test Comments: ATS/ERS acceptability and repeatability standards for spirometry met. 2 Puffs of albuterol (180mcg) delivered by MDI via Aerochamber HRpre =74/min, HRpost= 74 /min. Review Status: Not Reviewed Pre-Bronch Post-Bronch Pred LLN ULN Actual %Pred Actual %Chng SPIROMETRY FVC (L) 3.34 2.55 4.17 2.52 75 2.53 FEV1 (L) 2.64 2.01 3.25 1.98 75 2.12 6 FEV1/FVC (%) 79 68 89 79 99 84 6 FEF 25% (L/sec) 5.13 2.99 7.28 4.57 88 4.90 7 FEF 50% (L/sec) 3.69 1.87 5.50 2.83 76 2.90 2 FEF 75% (L/sec) 0.72 0.29 1.64 0.64 89 0.93 44 FEF 25-75% (L/sec) 2.41 1.26 3.95 1.84 76 2.30 25 FEF Max (L/sec) 6.55 4.75 72 5.31 11 FIVC (L) 2.44 2.39 -2 FIF 50% (L/sec) 4.08 2.65 5.52 3.54 86 4.98 40 FIF Max (L/sec) 3.63 4.98 37 FET (sec) 7.13 7.27 2 Back Extrap Vol (L) 0.05 0.06 16 Time To FEFmax (sec) 0.081 0.066 -18 PHYSICAL EXAM: BP 132/74 Pulse 81 Wt (!) 136.5 kg (301 lb) LMP 09/14/2013 SpO2 94% BMI 48.61 kg/m PHYSICAL EXAMINATION: General appearance: Well appearing, alert, in no acute distress, well-hydrated, well nourished. Neck: Supple, no adenopathy; thyroid symmetric, normal size, no bruits Lungs: Positive findings: wheezing RUL Heart: RRR without murmur, gallop, or rubs. No ectopy Neuro: Oriented X 3 ASSESSMENT and RECOMMENDATIONS: 1. Screening for lung cancer: Six year risk for lung cancer: 1.32% I have determined that the patient is eligible for a low dose CT based on age, absence of signs or symptoms of lung cancer, and total pack years: Yes. Delay due to recent CT Chest for pneumonia follow up. Plan for screening [address] Chest. The patient and I engaged in shared decision making, including the use of one or more decision aids, to include benefits, harms, follow-up diagnostic testing, over-diagnosis, false positive rate, andtotal radiation exposure. The patient understands and feels comfortable with it: Yes. The patient was counseled on the importance of adherence to annual LDCT lung cancer screening, impact of comorbidities and ability or willingness to undergo diagnosis and treatment. The patient understands and feels comfortable with it:Yes. 2. Nicotine dependence: The patient was counseled on the importance of maintaining cigarette smoking abstinence - The patient is committed to remaining abstinent from tobacco. 3 RUL pneumonia: Pt recently admitted 02/27/2023 and treated. Most recent follow up x ray still shows consolidation in RUL. Plan to get follow up CT Chest in 2-3 mos from 02/28/2023 CT Chest done at [facility]. Gareth Domingo APRN.CNP NPI #: April 08, 2023 9:14 AM documented in this encounterSt. [facility] Miscellaneous Notes* Telephone Encounter - Alecia Kumar RN - 04/04/2023 1:37 PM EDT Patient returned call and given provider's message below and patient verbalized understanding. Malathi Kumar RN * Telephone Encounter - Yuliet Syed OCCA - 04/04/2023 1:17 PM EDT TC to patient with no answer. Left VM to return call to office to receive results. KOFI Chong * Telephone Encounter - Deloris Chavez APRN.CNP - 04/04/2023 12:55 PM EDT Can please let patient know that I received her chest xray results. It continues to show some mild changes in the right lung. It looks like she is scheduled back to see us next week. If she gets any worsening symptoms, she should come into urgent care or return to ER. Deloris Chavez APRN.CNP documented in this encounterSt. Mary[facility]23 Miscellaneous Notes* Telephone Encounter - Ramona Nelson LPN - 04/03/2023 9:34 AM EDT Patient phones requesting refills as follows: Requested Prescriptions Pending Prescriptions Disp Refills loratadine (CLARITIN) 10 mg tablet 30 tablet 11 Sig: Take 1 tablet by mouth once daily. SABA-03/10/23 Labs-none NOV-none Please review and advise. Ramona Nelson LPN documented in this encounterSt. [facility] History of Present illness Narrative* Felicia Brewer RT(R) - 04/02/2023 9:50 AM EDT Radiology Service Progress Note PATIENT NAME: Santy Raza DATE OF SERVICE: April 02, 2023 TIME: 9:52 AM PATIENT IDENTITY VERIFICATION COMPLETED USING TWO (2) IDENTIFIERS: Name and Date of confirmedby patient verbally. FALL SCREENING: Has the patient had 2 falls in the last year or 1 fall with injury or currently using an Ambulatory Assistive Device (Walker, Cane, Wheelchair, Crutches, etc.)? No PATIENT GENDER DATA: Female. status: : No status: NO. PATIENT RELEVANT IMPLANT DATA REVIEWED: Not Applicable RADIOLOGY DEPARTMENT: General X-ray: Exam(s) Completed: Chest X-Ray PERIPHERAL IV DATA: Not applicable SIGNED BY: RT Cathy(R) April 02, 2023 9:52 AM documented in this encounterSt. Mary'[facility] [facility]09[facility]25-[facility]23 Instructions* Patient Instructions* Deloris Chavez APRN.CNP - 03/10/2023 3:04 PM EDT Finish the antibiotic. Return next week for repeat xray. Schedule with pulmonology. documented in this encounterSt. Mary[facility]09[facility] History of Present illness Narrative* Deloris Chavez APRN.CONTENT MANAGEMENT CONSULTANT - 03/10/2023 2:41 PM EDT This is a 62 year old female who presents today with: Patient presents with: Hospital Follow Up: [facility] 03/02/23 dx: pneumonia HISTORY OF PRESENT ILLNESS: Santy Raza is a 62 year old female. Patient presents with: Hospital Follow Up: [facility] 03/02/23 dx: pneumonia Patient presents today for hospital follow-up. She was transferred from [facility] to [facility] on 02/28/2023 with complaints of pneumonia and hypotension. At [place], she was found to be more short of breath and required BiPAP support. There were concerns of possible septic shock. She was then transferred to [facility]. She did not require any pressor support. She was able to be weaned off of the BiPAP and put on 3 L of nasal cannula which is new for her. She was given fluid resuscitation and IV antibiotics. She didhave a chest x-ray and a CT which confirmed a dense right upper lobe infiltrate. She was discharged to home on 03/02/2023. She is to follow-up with pulmonology in 3 to 4 weeks with a repeat chest x-ray. She was discharged on Augmentin 875 mg twice daily for 10 days. Has not smoked since she went into the hospital. Has two more days of the antibiotics. She was discharged on oxygen. Refers that she is feeling better. Uses the home oxygen occasionally when she is active. Today is first day out and about. Feels good. Has home cpap. Up and around. Has not smoked since going into the hospital 02/27 or 02/28. The pain in the right chest wall has resolved. Appetite has been good. Breathing has been good. Minimal cough. Will get feelings of hot and cold, but no known fever. Had some diarrhea, but improved now. Urinating okay. PAST MEDICAL HISTORY: PAST MEDICAL HISTORY Diagnosis Date Allergic rhinitis, cause unspecified BMI 45.0-49.9, adult ([facility]) 08/27/2022 Central perforation of tympanic membrane, bilateral Essential hypertension, benign Hypothyroidism 09/26/2015 Mixed conductive and sensorineural hearing loss Obstructive sleep apnea Other anxiety states Perforated tympanic membrane 03/29/2011 S/P repair of ventral hernia 09/06/2022 Snoring Synovitis and tenosynovitis, unspecified Tobacco abuse 03/23/2012 PAST SURGICAL HISTORY Procedure Laterality Date COLONOSCOPY SCRN NOT HIGH RISK 09/13/2020 EGD 10/25/2020 L'SCOPE DX W/WO BRUSHINGS/WASHINGS 09/05/2022 Dr. Guadarrama LIG/TRNSXJ FLP TUBE ABDL/VAG APPR UNI/BI Tubal ligation LX REPAIR RECURRENT VENTRAL HERNIA 09/05/2022 open, w/ mesh. Dr. Guadarrama MYRINGOTOMY ASPIR&/EUSTACHIAN TUBE NFLTJ ANES Myringotomy/tubes NEUROPLASTY &/TRANSPOS MEDIAN NRV CARPAL TUNNE Bilateral 01/15/2019 Bilateral carpal tunnel release REDUCTION OF LARGE BREAST 04/23/2016 STEREOTACT BREAST BX EA LESION PC 09/30/2018 left stereotactic breast biopsy w/vacuum assisted core needle biopsy, specimen radiograph and marker placement ALLERGIES Doxycycline Monohydrate, Hctz [Amiloride-Hydrochlorothiazide], Levaquin [Levofloxacin], Meloxicam, and Peanuts MEDICATIONS Current Outpatient Medications Medication Sig ALPRAZolam (XANAX) 1 mg tablet Take 1 tablet by mouth once daily as needed for anxiety for up to 30days. citalopram (CELEXA) 40 mg tablet Take 1 tablet by mouth once daily. buPROPion XL (WELLBUTRIN XL) 150 mg 24 hr tablet Take 1 tablet by mouth once daily. atorvastatin (LIPITOR) 10 mg tablet take 1 tablet by mouth daily at bedtime for cholesterol fluticasone (FLONASE) 50 mcg/actuation nasal spray Use 2 Sprays in each nostril once daily. Rinse mouth after use. benzonatate (TESSALON PERLES) 100 mg capsule Take 1-2 capsules by mouth three times daily as neededfor cough. levothyroxine (LEVOXYL) 200 mcg tablet Take 1 tablet by mouth once daily. Take on empty stomach. For thyroid amitriptyline (ELAVIL) 25 mg tablet Take 1 tablet by mouth daily at bedtime. amLODIPine (NORVASC) 5 mg tablet take 1 tablet by mouth once daily Cholecalciferol, Vitamin D3, 125 mcg (5,000 unit) cap Take 1 capsule by mouth once daily. lisinopril (ZESTRIL) 40 mg tablet Take 1 tablet by mouth once daily. budesonide-formoterol (SYMBICORT) 160-4.5 mcg/actuation inhaler Inhale 2 Puffs as instructed twice daily. furosemide (LASIX) 20 mg tablet Take 1 tablet by mouth once daily. Ipratropium (ATROVENT HFA) 17 mcg/actuation inhaler Inhale 2 Puffs as instructed every 6 hours. lansoprazole (PREVACID) 15 mg capsule Take 1 capsule by mouth once daily. albuterol (PROVENTIL) 2.5 mg /3 mL (0.083 %) nebulizer solution Use 3 mL via nebulizer every 6 hours as needed for wheezing/shortness of breath. loratadine (CLARITIN) 10 mg tablet Take 1 tablet by mouth once daily. Nebulizer Accessories misc 1 Each as directed. Nebulizer tubing and mouth piece. faxed to ondansetron (ZOFRAN) 4 mg tablet Take 1 tablet by mouth every 8 hours as needed for nausea/vomiting. baclofen (LIORESAL) 10 mg tablet TAKE 1/2 TO 1 TABLET BY MOUTH TWICE A DAY NEEDED FOR SPASMS tegaserod hydrogen maleate 6 mg tablet (ZELNORM) Take 1 tablet (6 mg) by mouth twice daily before meals. Bifidobacterium Infantis (ALIGN) 4 mg cap Take 1 capsule by mouth once daily. CPAP autoCPAP 5-15 cmH2O, mask, tubing, filters, heated humidity, lifetime supplies. Dx: TRINI Nebulizer 1 Each as needed. NEBULIZER TUBING AND SUPPLIES. DX: CHRONIC BRONCHITIS J41.1, WHEEZING R06.2. FAX TO [employer] [phone] COMPOUNDED PRESCRIPTION Nebulizer for albuterol every fours as needed ICD: R06.2 CIPRODEX 0.3-0.1 % otic suspension Use 2 Drops in both ears as needed. 2 drops twice daily as needed. dexAMETHasone (DEXASOL) 0.1 % ophthalmic solution Use 1 Drop in both eyes every 12 hours as needed.Instill 2 drops into affected ear twice daily as needed. SUCRAID 8,500 unit/mL soln (Patient not taking: Reported on 01/15/2023) No current facility-administered medications for this visit. FAMILY HISTORY Problem Relation Age of Onset No Known Problems Father Coronary Artery Disease Mother PE Asthma Mother Multiple Sclerosis Mother Coronary Artery Disease Brother None Brother Coronary Artery Disease Sister Colon Cancer No Family History Anesthesia Problems No Family History Social History Tobacco Use Smoking status: Every Day Packs/day: .5 Types: Cigarettes Start date: 05/29/1987 Smokeless tobacco: Never Vaping Use Vaping Use: Never used Substance Use Topics Alcohol use: No Drug use: No EXAM: BP 138/82 Pulse 77 Resp 16 LMP 09/14/2013 SpO2 95% PHYSICAL EXAM: General Appearance: Well appearing, alert, in no acute distress, well-hydrated, well nourished.. Skin: Skin color, texture, turgor normal, no suspicious rashes or lesions. Head: Normocephalic, no masses, lesions, tenderness or abnormalities. Eyes: Anicteric sclera. Extraocular movements are intact. . Lungs: Lungs clear to auscultation. No wheezing, rhonchi, rales.. Heart: RRR without murmur, gallop, or rubs. No ectopy. Extremities: No deformities, edema, skin discoloration, clubbing or cyanosis. Good capillary refill. . Neurologic: Gait normal w/ walker. ASSESSMENT/PLAN: 1. Bacterial pneumonia - ICD9: 482.9, ICD10: J15.9 (primary diagnosis) Clinically improved. Has only used the home oxygen with some activities. Finish the antibiotics, as prescribed. Repeat chest xray next week. - XR CHEST 2V FRONTAL/LAT 2. Mucopurulent chronic bronchitis (HCC) - ICD9: 491.1, ICD10: J41.1 - CONSULT TO PULMONARY MEDICINE 3. Tobacco abuse - ICD9: 305.1, ICD10: Z72.0 Has not smoked for 10+ days. Keep up the good work. - Cessation encouraged. - Physiologic and physical aspects of tobacco addiction as well as strategies for quitting were discussed. - Counseling was given focusing on the harmful effects of this addiction especially given the patient's medical condition(s) which will be worsened because of the chemicals in tobacco. Discussed treatment plan and patient voices understanding. Patient's questions answered appropriately. Medications and potential side effects were discussed and patient voices understanding. Return to the office as scheduled or as needed for worsening/no improvement. Deloris Chavez APRN.CONTENT MANAGEMENT CONSULTANT documented in this encounterSt. Mary'[facility]09-20-2023 Note. MICRO - Microbiology PROCEDURE: Blood Culture (bacterial) [*1] SOURCE: Blood BODY SITE: COLLECTED DATE/TIME: 02/28/2023 20:25 EDT RECEIVED DATE/TIME: 02/28/2023 21:08 EDT START DATE/TIME: 02/28/2023 21:16 EDT FREE TEXT SOURCE: FINAL REPORTS Final Report [] Verified Date/Time/Personnel: 03/05/2023 21:59 EDT Blood Culture: No Growth at 5 days. PRELIMINARY REPORTS Preliminary Report [] Verified Date/Time/Personnel: 02/28/2023 21:59 EDT Culture has been received in lab and is no growth to date. Routine cultures are held for 5 days. Performing Locations *1: This test was performed at: [address], [address] [place], [place] [address]908503-05-2023 Note. MICRO - Microbiology PROCEDURE: Blood Culture (bacterial) [*1] SOURCE: Blood BODY SITE: COLLECTED DATE/TIME: 02/28/2023 20:25 EDT RECEIVED DATE/TIME: 02/28/2023 21:08 EDT START DATE/TIME: 02/28/2023 21:08 EDT FREE TEXT SOURCE: FINAL REPORTS Final Report [] Verified Date/Time/Personnel: 03/05/2023 21:59 EDT Blood Culture: No Growth at 5 days. PRELIMINARY REPORTS Preliminary Report [] Verified Date/Time/Personnel: 02/28/2023 21:59 EDT Culture has been received in lab and is no growth to date. Routine cultures are held for 5 days. Performing Locations *1: This test was performed at: [address], [address] [place] [address] ([place])03-05-2023 Miscellaneous Notes* Telephone Encounter - Jose Summers LPN - 03/05/2023 8:53 AM EDT Patient phones requesting refills as follows: Requested Prescriptions Pending Prescriptions Disp Refills ALPRAZolam (XANAX) 1 mg tablet 30 tablet 0 Sig: Take 1 tablet by mouth once daily as needed for anxiety for up to 30 days. SABA 01/15/23 NOV 03/06/23 Please review and advise. Jose Summers LPN documented in this encounterSt. [facility]09-19-2023 Note. MICRO - Microbiology PROCEDURE: Blood Culture (bacterial) [*1] SOURCE: Blood BODY SITE: COLLECTED DATE/TIME: 02/27/2023 01:58 EDT RECEIVED DATE/TIME: 02/27/2023 14:19 EDT START DATE/TIME: 02/27/2023 14:19 EDT FREE TEXT SOURCE: FINAL REPORTS Final Report [] Verified Date/Time/Personnel: 03/04/2023 14:59 EDT Blood Culture: No Growth at 5 days. PRELIMINARY REPORTS Preliminary Report [] Verified Date/Time/Personnel: 02/27/2023 14:59 EDT Culture has been received in lab and is no growth to date. Routine cultures are held for 5 days. Performing Locations *1: This test was performed at: [address], [facility] , [facility] ([place])03-04-2023 Note. MICRO - Microbiology PROCEDURE: Blood Culture (bacterial) [*1] SOURCE: Blood BODY SITE: COLLECTED DATE/TIME: 02/27/2023 01:58 EDT RECEIVED DATE/TIME: 02/27/2023 14:19 EDT START DATE/TIME: 02/27/2023 14:19 EDT FREE TEXT SOURCE: FINAL REPORTS Final Report [] Verified Date/Time/Personnel: 03/04/2023 14:59 EDT Blood Culture: No Growth at 5 days. PRELIMINARY REPORTS Preliminary Report [] Verified Date/Time/Personnel: 02/27/2023 14:59 EDT Culture has been received in lab and is no growth to date. Routine cultures are held for 5 days. Performing Locations *1: This test was performed at: [facility], [address] [place] [address], [phone] , [facility] ([place])03-04-2023 Hospital Discharge instructions Patient Education 03/04/2023 11:18:29 Oral Annabella Infection (Thrush) in Your Child Oral Annabella Infection (Thrush) in Your Child Annabella is a type of fungus. It is found naturally on the skin and in the mouth. If Annabella grows out of control, it can cause mouth infection called thrush. Thrush is common in infants and children.Thrush is not a serious problem for a healthy child. Who s at risk? Thrush is common in infants and toddlers. Risk factors for thrush include: Very low weight Passing through the canal of a mother with a yeast infection Use of antibiotics Use of inhaled steroids, such as for asthma Frequent use of a pacifier Weakened immune system Symptoms of thrush Thrush causes creamy white patches to form on the tongue or inner cheeks. These patches can be painful and may bleed. Babies with thrush are often fussy and may have trouble feeding. Treatment for thrush A healthy baby with mild thrush may not need any treatment. More severe cases are likely to be treated with a liquid antifungal medicine. Or the medicine may be given as lozenges or pills. Follow thehealthcare provider's instructions for giving this medicine to your child. mothers may develop thrush on their nipples. If you breastfeed, both you and your child will be treated. This is to prevent passing the infection back and forth. Caring for your child at home Make sure to do the following: Wash your hands well with warm water and soap before and after caring for your child. Have your child wash his or her hands often. If your child uses a pacifier, boil it for 5 to 10 minutes at least once a day. Wash drinking cups well using warm water and soap after each use. If your child takes inhaled corticosteroids, have your child rinse his or her mouth after taking the medicine. Also ask the child's healthcare provider about using a spacer. This can help lessen the risk for thrush. Your child can likely go to school or daycare, unless the healthcare provider says otherwise. When to call the healthcare provider Call the healthcare provider right away if: Your child is 3 months old or younger and has a fever of 100.4 F (38 C) or higher. Get medical careright away. Fever in a young baby can be a sign of a dangerous infection. Your child is younger than 2 years of age and has a fever of 100.4 F (38 C) that continues for morethan 1 day. Your child is 2 years old or older and has a fever of 100.4 F (38 C) that continues for more than 3days. Your child is of any age and has repeated fevers above 104 F (40 C). Also call the healthcare provider if your child: Stops eating or drinking Has pain that doesn t go away, or gets worse Has other symptoms that get worse Has repeated thrush infections [phone] [employer]. [address] [place] [address]. All rights reserved. This information is not intended as a substitute for professional medical care. Always follow yourhealthcare professional's instructions. Follow Up Care 03/04/2023 11:00:33 With:DELORIS CHAVEZ Address: [address] [place] [phone] When:2-4 days [facility] 09-19-2023 Note Discharge Instructions Thank you for allowing [facility] to assist you with your healthcare needs. The following is importantdischarge information regarding your hospital visit. Diagnosis from Today's Visit Mouth pain Oral thrush What to Do Next Instructions from Your Care Team No qualifying data available. Post Acute Orders No qualifying data available. You Need to Schedule the Following Appointments Follow Up with DELORIS CHAVEZ When Within 2-4 days Where: [address] [place] [phone] Allergies Levaquin Peanuts (itching) amiloride-hydrochlorothiazide (itching) doxycycline meloxicam (swelling, rash, itching) Medications Please ask your primary doctor or pharmacist before taking any other medication not listed, including over the counter drugs, herbal medications, vitamins and or supplements as they may interact withyour home medications. What How Much When Instructions Last Dose New clotrimazole (clotrimazole 10 mg oral lozenge) 1 lozenge(s) by mouth 5 times a day Duration: 7 Days Printed Prescription Unchanged albuterol (albuterol 2.5 mg/ 3 mL (0.083%) inhalation solution) 3 Milliliter by inhalation Every 6 hours as needed for for wheezing Unchanged amitriptyline (amitriptyline 25 mg oral tablet) 1 tab(s) by mouth Daily at bedtime Unchanged amLODIPine (amLODIPine 5 mg oral tablet) 1 tab(s) by mouth Once a day Unchanged amoxicillin-clavulanate (amoxicillin-clavulanate 875 mg-125 mg oral tablet) 1 tab(s) by mouth Every 12 hours Duration: 10 Days twice a day Unchanged atorvastatin (atorvastatin 10 mg oral tablet) 1 tab(s) by mouth Once a day Unchanged baclofen (baclofen 10 mg oral tablet) 0.5 tab(s) by mouth Two (2) times a day as needed for Spasm Unchanged benzonatate (benzonatate 100 mg oral capsule) 1 cap by mouth Three (3) times a day as needed for as needed for cough Duration: 7 Days Unchanged bifidobacterium infantis (Align 4 mg oral capsule) 1 cap by mouth Every day Unchanged budesonide-formoterol (Symbicort 160 mcg-4.5 mcg/ inh Inhaler) 2 puff(s) by inhalation Two (2) times a day Unchanged buPROPion (Wellbutrin XL 150 mg/ 24 hours oral tablet, extended release) 1 tab(s) by mouth Every 24 hours Unchanged cholecalciferol (cholecalciferol 125 mcg (5000 intl units) oral capsule) 1 cap by mouth Once a day Unchanged ciprofloxacin-dexamethasone otic (Ciprodex 0.3%-0.1% otic suspension) 2 Drops Both ears Two (2) times a day as needed for Control symptoms Unchanged citalopram (citalopram 40 mg oral tablet) 1 tab(s) by mouth Once a day Unchanged fluticasone nasal (fluticasone 50 mcg/ inh NASAL spray) 1 spray(s) each nostril Two (2) times a day as needed for Nasal congestion Unchanged furosemide (furosemide 20 mg oral tablet) 1 tab(s) by mouth Once a day Unchanged ipratropium (Atrovent HFA 17 mcg/ inh inhalation aerosol) 2 puff(s) by inhalation Four (4) times a day Unchanged lansoprazole (lansoprazole 15 mg oral delayed release capsule) 1 cap by mouth Once a day Unchanged levothyroxine (levothyroxine 200 mcg (0.2 mg) oral tablet) 1 tab(s) by mouth Once a day Unchanged lisinopril (lisinopril 40 mg oral tablet) 1 tab(s) by mouth Once a day Unchanged loratadine (loratadine 10 mg oral capsule) 1 cap by mouth Once a day Unchanged Misc Medication See instructions Unchanged ondansetron (ondansetron 4 mg oral tablet) 1 tab(s) by mouth Every 8 hours as needed for Nausea/Vomiting Unchanged sacrosidase (Sucraid 8500 intl units/ mL oral solution) Please take this list to your next doctor s visit. Bring all medications you take, including over the counter medications, herbals and other supplements with you to your doctor s visit. Patients and families are reminded to discard old lists and to update any records with all medication providers or retail pharmacies. Medication Leaflets clotrimazole (sb lin) What is the most important information I should know about clotrimazole? Use only as directed. Tell your doctor if you use other medicines or have other medical conditions or allergies. What is clotrimazole? Clotrimazole is used to treat and prevent yeast infections of the mouth and throat in adults and children older than 3 years. The clotrimazole lozenge is not absorbed through your stomach. This medicine will not treat fungal infections in any other part of your body. Clotrimazole may also be used for purposes not listed in this medication guide. What should I discuss with my healthcare provider before taking clotrimazole? You should not use clotrimazole if you are allergic to it. Tell your doctor if you have ever had liver disease. Tell your doctor if you are or . How should I take clotrimazole? Follow all directions on your prescription label and read all medication guides or instruction sheets. Use the medicine exactly as directed. Clotrimazole is usually given 3 to 5 times per day. Allow the lozenge to dissolve slowly in your mouth without chewing. You may need liver function tests. Store at room temperature away from moisture and heat. Avoid freezing. What happens if I miss a dose? Take the medicine as soon as you can, but skip the missed dose if it is almost time for your next dose. Do not take two doses at one time. What happens if I overdose? Seek emergency medical attention or call the Poison Help line at . What should I avoid while taking clotrimazole? Follow your doctor's instructions about any restrictions on food, beverages, or activity. What are the possible side effects of clotrimazole? Get emergency medical help if you have signs of an allergic reaction: hives; difficult breathing; swelling of your face, lips, tongue, or throat. Common side effects may include: abnormal liver function tests; nausea, vomiting; itching, or an unpleasant sensation in the mouth. This is not a complete list of side effects and others may occur. Call your doctor for medical advice about side effects. You may report side effects to FDA at [phone]. What other drugs will affect clotrimazole? Clotrimazole is not absorbed through your stomach and is not likely to be affected by other drugs you use. However, tell your doctor about all your current medicines, including prescription and [id number] medicines, vitamins, and herbal products. Where can I get more information? Your pharmacist can provide more information about clotrimazole. Remember, keep this and all other medicines out of the reach of children, never share your medicines with others, and use this medication only for the indication prescribed. Every effort has been made to ensure that the information provided by [facility]. ('[employer]') is accurate, up-to-date, and complete, but no guarantee is made to that effect. Drug information contained herein may be time sensitive. [employer] information has been compiled for use by healthcare practitioners and consumers in the [place] and therefore [employer] does not warrant that uses outside of the [place] are appropriate, unless specifically indicated otherwise. [employer] drug information does not endorse drugs, diagnose patients or recommend therapy. [employer] drug information isan informational resource designed to assist licensed healthcare practitioners in caring for their p atients and/or to serve consumers viewing this service as a supplement to, and not a substitute for, the expertise, skill, knowledge and judgment of healthcare practitioners. The absence of a warningfor a given drug or drug combination in no way should be construed to indicate that the drug or drug combination is safe, effective or appropriate for any given patient. [facility] does not assume any responsibility for any aspect of healthcare administered with the aid of information [facility] provides. The information contained herein is not intended to cover all possible uses, directions, precautions, warnings, drug interactions, allergic reactions, or adverse effects. If you have questions about the drugs you are taking, check with your doctor, nurse or pharmacist. Copyright 7787-9642 [facility]. Version: 4.01. Revision Date: 01/23/2023. Education Materials Oral Annabella Infection (Thrush) in Your Child Annabella is a type of fungus. It is found naturally on the skin and in the mouth. If Annabella grows out of control, it can cause mouth infection called thrush. Thrush is common in infants and children.Thrush is not a serious problem for a healthy child. Who s at risk? Thrush is common in infants and toddlers. Risk factors for thrush include: Very low weight Passing through the canal of a mother with a yeast infection Use of antibiotics Use of inhaled steroids, such as for asthma Frequent use of a pacifier Weakened immune system Symptoms of thrush Thrush causes creamy white patches to form on the tongue or inner cheeks. These patches can be painful and may bleed. Babies with thrush are often fussy and may have trouble feeding. Treatment for thrush A healthy baby with mild thrush may not need any treatment. More severe cases are likely to be treated with a liquid antifungal medicine. Or the medicine may be given as lozenges or pills. Follow thehealthcare provider's instructions for giving this medicine to your child. mothers may develop thrush on their nipples. If you breastfeed, both you and your child will be treated. This is to prevent passing the infection back and forth. Caring for your child at home Make sure to do the following: Wash your hands well with warm water and soap before and after caring for your child. Have your child wash his or her hands often. If your child uses a pacifier, boil it for 5 to 10 minutes at least once a day. Wash drinking cups well using warm water and soap after each use. If your child takes inhaled corticosteroids, have your child rinse his or her mouth after taking the medicine. Also ask the child's healthcare provider about using a spacer. This can help lessen the risk for thrush. Your child can likely go to school or daycare, unless the healthcare provider says otherwise. When to call the healthcare provider Call the healthcare provider right away if: Your child is 3 months old or younger and has a fever of 100.4 F (38 C) or higher. Get medical careright away. Fever in a young baby can be a sign of a dangerous infection. Your child is younger than 2 years of age and has a fever of 100.4 F (38 C) that continues for morethan 1 day. Your child is 2 years old or older and has a fever of 100.4 F (38 C) that continues for more than 3days. Your child is of any age and has repeated fevers above 104 F (40 C). Also call the healthcare provider if your child: Stops eating or drinking Has pain that doesn t go away, or gets worse Has other symptoms that get worse Has repeated thrush infections [id number] [employer]. [address] [place] [address]. All rights reserved. This information is not intended as a substitute for professional medical care. Always follow yourhealthcare professional's instructions. Additional Information VACCINATE! IT SAVES LIVES! Members of the community who have not yet received the COVID-19 vaccine and would like to receive it can visit one of [facility] vaccine clinics. There are many vaccine clinic locations within the [facility]. For locations and available times, please visit www.[email or web address].gov/. It is important to note that some COVID mobile vaccine clinics are held outdoors and may be canceled in rainy or stormy conditions. To learn more about pediatric vaccinations (ages 5-11), we invite you to visit the [facility] webpage. [email or web address] learn more about the COVID-19 vaccine, we invite you to visit the CDC website for a list of frequently asked questions. https://www.cdc.gov/coronavirus/2019-ncov/vaccines/faq.html [employer] [facility] Patient Portal Access Instructions: Stay connected with your healthcare team and access your personal medical information anytime with the [employer] Patient Portal. If you would like a full copy of your medical records please contact the [facility] Medical Records Department Friday through Friday between 8a.m. and 4:30p.m. Please follow the directions below to access the portal: 1.Access the email account you provided upon registration to the hospital.2.Look for an invitation email from [facility].3.Open the email and access the invitation link: Accept Invitation to [facility]4.Fill in the required blackman to create your account. Sign into [email or web address] with your username and password that you created in the above steps to stay up to date. You can then view a summary of results, a summary of your visits, and the ability to download your summaries to your computer or send the information securely to a physician. Remember that your healthcare information is confidential, so carefully consider who you will allow to register on the [facility] Patient Portal for access to your information. You can also access the [facility] Patient Portal on the [employer] johnny. Simply click on Health Records under [facility] and then click on the [facility] logo. HOW TO SAFELY DISPOSE OF PRESCRIPTION MEDICATIONS Please use one of the following methods to safely dispose of your unused medications. 1.Use a drug disposal kit: the drug disposal pouch allows you to safely discard your old and unuseddrugs. Ask your nurse to give you one when you are discharged.2.Visit a local take-back location: Many local pharmacies and police departments have programs that collect old and unwanted prescriptiondrugs. Call your local pharmacy or go to http://bit.[employer]/3I5Ae5q to find one close to you.3.Make use of household items: Use cat litter or old coffee grounds to dispose medications if other options arenot available. Mix your drugs with these household products, seal them in an airtight container andthrow it into the garbage. Call [facility]: [phone] to be sure your drugs can be disposed of in this way. Some medicines may require a different approach.4.Never flush your medications down the toilet. IF YOU HAVE BEEN PRESCRIBED AN OPIOIDS FOR PAIN If you have been prescribed an opioid (such as hydrocodone, oxycodone or morphine), it is critical to understand the possible side effects and risks of opioid pain medications. Even when taken as directed, opioids can have several side effects including: Tolerance, meaning you might need to take more of a medication for the same pain relief. Nausea, vomiting and/or constipation. Sleepiness, dizziness, dry mouth, confusion, depression or itching. Physical dependence, meaning you have withdrawal symptoms when a medication is stopped ? this can develop within a few days. KNOW YOUR RESPONSIBILITIES It is important to know exactly how much and how often to take the opioid pain medications you are prescribed. Never take opioids in higher amounts or more often than prescribed. Do not combine opioids with alcohol or other drugs that cause drowsiness, such as benzodiazepines, also known as benzos,including diazepam and alprazolam, muscle relaxants or sleep aids. Never sell or share prescriptionopioids. This is illegal. Store opioids in a secure place and out of reach of others (including children, family, friends and visitors). The last page(s) of this document has been signed and retained as a CHART COPY Signatures Patient Education Materials Oral Annabella Infection (Thrush) in Your Child Medication Leaflets clotrimazole My discharge plan and instructions have been reviewed and explained to me and I,SANTY RAZA understand my current condition and have read and understand these discharge instructions. I have received a written copy of the plan/instructions. If I have questions, I am aware that I should contactmy doctor. 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 MICRO - Microbiology PROCEDURE: Urine Culture [O1 *1] SOURCE: Urine BODY SITE: COLLECTED DATE/TIME: 03/01/2023 01:33 EDT RECEIVED DATE/TIME: 03/01/2023 07:15 EDT START DATE/TIME: 03/01/2023 07:15 EDT FREE TEXT SOURCE: FINAL REPORTS Final Report [] Verified Date/Time/Personnel: 03/03/2023 07:46 EDT No growth at 48 hours. PRELIMINARY REPORTS Preliminary Report [] Verified Date/Time/Personnel: 03/02/2023 12:12 EDT No growth to date Order Comments O1: Urine Culture (Culture Urine) Please page Washington Inman MD when FRANCISCO results are available, in case of patient discharge before results are completed. Performing Locations *1: This test was performed at: [facility], [address] [place] [address], [facility] , [facility])03-02-2023 Hospital Discharge instructions Patient Education 03/02/2023 15:36:45 Community-Acquired Pneumonia, Adult Community-Acquired Pneumonia, Adult Pneumonia is a type of lung infection that causes swelling in the airways of the lungs. Mucus and fluid may also build up inside the airways. This may cause coughing and difficulty breathing. There are different types of pneumonia. One type can develop while a person is in a hospital. A different type is called community-acquired pneumonia. It develops in people who are not, and have not recently been, in the hospital or another type of health care facility. What are the causes? This condition may be caused by: Viruses. This is the most common cause of pneumonia. Bacteria. Community-acquired pneumonia is often caused by Streptococcus pneumoniae bacteria. These bacteria are often passed from one person to another by breathing in droplets from the cough or sneeze of an infected person. Fungi. This is the least common cause of pneumonia. What increases the risk? The following factors may make you more likely to develop this condition: Having a chronic disease, such as chronic obstructive pulmonary disease (COPD), asthma, congestive heart failure, cystic fibrosis, diabetes, or kidney disease. Having early-stage or late-stage HIV. Having sickle cell disease. Having had your spleen removed (splenectomy). Having poor dental hygiene. Having a medical condition that increases the risk of breathing in (aspirating) secretions from your own mouth and nose. Having a weakened body defense system (immune system). Being a smoker. Traveling to areas where pneumonia-causing germs commonly exist. Being around animal habitats or animals that have pneumonia-causing germs, including birds, bats, rabbits, cats, and farm animals. What are the signs or symptoms? Symptoms of this condition include: A dry cough. A wet (productive) cough. Fever. Sweating. Chest pain, especially when breathing deeply or coughing. Rapid breathing or difficulty breathing. Shortness of breath. Shaking chills. Fatigue. Muscle aches. How is this diagnosed? This condition may be diagnosed based on: Your medical history. A physical exam. You may also have tests, including: Chest X-rays. Tests of your blood oxygen level and other blood gases. Tests on blood, mucus (sputum), fluid around your lungs (pleural fluid), and urine. If your pneumonia is severe, other tests may be done to find the exact cause of your illness. How is this treated? Treatment for this condition depends on many factors, such as the cause of your pneumonia, the medicines you take, and other medical conditions that you have. For most adults, treatment and recovery from pneumonia may occur at home. In some cases, treatment must happen in a hospital. Treatment may include: Medicines that are given by mouth or through an IV, including: ?Antibiotic medicines, if the pneumonia was caused by bacteria. ?Antiviral medicines, if the pneumonia was caused by a virus. Being given extra oxygen. Respiratory therapy. Although rare, treating severe pneumonia may include: Using a machine to help you breathe (mechanical ventilation). This is done if you are not breathingwell on your own and you cannot maintain a safe blood oxygen level. Thoracentesis. This is a procedure to remove fluid from around one lung or both lungs to help you breathe better. Follow these instructions at home: Medicines Take bhkt-ivq-yectnyg and prescription medicines only as told by your health care provider. ?Only take cough medicine if you are losing sleep. Be aware that cough medicine can prevent your body's natural ability to remove mucus from your lungs. If you were prescribed an antibiotic medicine, take it as told by your health care provider. Do notstop taking the antibiotic even if you start to feel better. General instructions Sleep in a semi-upright position at night. Try sleeping in a reclining chair, or place a few pillows under your head. Rest as needed and get at least 8 hours of sleep each night. Drink enough water to keep your urine pale yellow. This will help to thin out mucus secretions in your lungs. Eat a healthy diet that includes plenty of vegetables, fruits, whole grains, low-fat dairy products, and lean protein. Do not use any products that contain nicotine or tobacco, such as cigarettes, e- cigarettes, and chewing tobacco. If you need help quitting, ask your health care provider. Keep all follow-up visits as told by your health care provider. This is important. How is this prevented? You can lower your risk of developing community-acquired pneumonia by: Getting a pneumococcal vaccine. There are different types and schedules of pneumococcal vaccines. Ask your health care provider which option is best for you. Consider getting the vaccine if: ?You are older than 65 years of age. ?You are older than 19 years of age and are undergoing cancer treatment, have chronic lung disease,or have other medical conditions that affect your immune system. Ask your health care provider if this applies to you. Getting an influenza vaccine every year. Ask your health care provider which type of vaccine is best for you. Getting regular checkups from your dentist. Washing your hands often. If soap and water are not available, use hand edge inker heels. Contact a health care provider if: You have a fever. You are losing sleep because you cannot control your cough with cough medicine. Get help right away if: You have worsening shortness of breath. You have increased chest pain. Your sickness becomes worse, especially if you are an older adult or have a weakened immune system. You cough up blood. Summary Pneumonia is an infection of the lungs. Community-acquired pneumonia develops in people who have not been in the hospital. It can be causedby bacteria, viruses, or fungi. This condition may be treated with antibiotics or antiviral medicines. Severe cases may require hospitalization, mechanical ventilation, and other procedures to drain fluid from the lungs. This information is not intended to replace advice given to you by your health care provider. Make sure you discuss any questions you have with your health care provider. Document Released: 06/02/2006 Document Revised: 01/28/2019 Document Reviewed: 01/28/2019 [employer] Patient Education 2020 [employer]. Follow Up Care 02/28/2023 12:28:33 With:[facility] Address:Unknown When: Unknown Comments:[facility] will deliver your portable tank to your room prior to you leaving the hospital. Call [employer] [facility] when you are on your way home at [phone]. [facility] willthen deliver an oxygen concentrator to your home. With:DELORIS CHAVEZ Address: [address] [place] [phone] When:1-2 days [facility] 09-17-2023 Nurse Discharge summary Discharge forms reviewed with patient. Questions answered. Patient understanding confirmed as patient reiterated information and number to call for [facility] supplies. Peripheral IVs removed. Oxygen tank brought to room by respiratory therapy. Education provided on oxygen tank. Patient waiting on daughter for ride. Patient discharged to car via wheelchair and [phone] Discharge Instructions Thank you for allowing [facility] to assist you with your healthcare needs. The following is importantdischarge information regarding your hospital visit. Your Care Team DELORIS CHAVEZ What to do next Instructions From Your Doctor You were admitted to the medical ICU for right upper lobe pneumonia. You are safe for discharge andbeing sent home on a oral antibiotic called Augmentin. Take this medication twice a day for 10 days. Follow-up with your PCP. This pulmonology group will reach out and schedule an appointment with you in 3 to 4 weeks with a chest x-ray to reevaluate for resolution of your right upper lobe pneumonia. Follow Up Appointments Follow Up with [facility] When Why: [facility] will deliver your portable tank to your room prior to you leaving the hospital. Call [facility] when you are on your way home at [phone]. [facility]. Follow Up with DELORIS CHAVEZ When Within 1-2 days Where: [address] [place] [phone] The Following Activity and Diet Have Been Ordered for You Discharge Activity - Ordered -- NO activity restrictions, 03/02/23 14:27:00 EDT Discharge Diet - Ordered -- Type of Diet: Regular Diet, No changes were made to your diet during your hospital stay. Please resume your pre hospitalization diet on discharge., 03/02/23 14:27:00 EDT The Following Equipment Has Been Ordered for You No qualifying data available. The Following Treatments Have Been Ordered for You Discharge Labs No qualifying data available. Discharge Radiology No qualifying data available. Other Therapies No qualifying data available. Post Acute Orders No qualifying data available. Someone Will Contact You Regarding These Home Health Referrals No home referrals have been ordered for you. No one will call you. Allergies Levaquin Peanuts (itching) amiloride-hydrochlorothiazide (itching) doxycycline meloxicam (swelling, rash, itching) Medications Please ask your primary doctor or pharmacist before taking any other medication not listed, including over the counter drugs, herbal medications, vitamins and or supplements as they may interact withyour home medications. What How Much When Instructions Last Dose New amoxicillin-clavulanate (amoxicillin-clavulanate 875 mg-125 mg oral tablet) 1 tab(s) by mouth Every 12 hours Duration: 10 Days twice a day Pickup at [id number] Unchanged albuterol (albuterol 2.5 mg/ 3 mL (0.083%) inhalation solution) 3 Milliliter by inhalation Every 6 hours as needed for for wheezing Unchanged amitriptyline (amitriptyline 25 mg oral tablet) 1 tab(s) by mouth Daily at bedtime Unchanged amLODIPine (amLODIPine 5 mg oral tablet) 1 tab(s) by mouth Once a day Unchanged atorvastatin (atorvastatin 10 mg oral tablet) 1 tab(s) by mouth Once a day Unchanged baclofen (baclofen 10 mg oral tablet) 0.5 tab(s) by mouth Two (2) times a day as needed for Spasm Unchanged benzonatate (benzonatate 100 mg oral capsule) 1 cap by mouth Three (3) times a day as needed for as needed for cough Duration: 7 Days Unchanged bifidobacterium infantis (Align 4 mg oral capsule) 1 cap by mouth Every day Unchanged budesonide-formoterol (Symbicort 160 mcg-4.5 mcg/ inh Inhaler) 2 puff(s) by inhalation Two (2) times a day Unchanged buPROPion (Wellbutrin XL 150 mg/ 24 hours oral tablet, extended release) 1 tab(s) by mouth Every 24 hours Unchanged cholecalciferol (cholecalciferol 125 mcg (5000 intl units) oral capsule) 1 cap by mouth Once a day Unchanged ciprofloxacin-dexamethasone otic (Ciprodex 0.3%-0.1% otic suspension) 2 Drops Both ears Two (2) times a day as needed for Control symptoms Unchanged citalopram (citalopram 40 mg oral tablet) 1 tab(s) by mouth Once a day Unchanged fluticasone nasal (fluticasone 50 mcg/ inh NASAL spray) 1 spray(s) each nostril Two (2) times a day as needed for Nasal congestion Unchanged furosemide (furosemide 20 mg oral tablet) 1 tab(s) by mouth Once a day Unchanged ipratropium (Atrovent HFA 17 mcg/ inh inhalation aerosol) 2 puff(s) by inhalation Four (4) times a day Unchanged lansoprazole (lansoprazole 15 mg oral delayed release capsule) 1 cap by mouth Once a day Unchanged levothyroxine (levothyroxine 200 mcg (0.2 mg) oral tablet) 1 tab(s) by mouth Once a day Unchanged lisinopril (lisinopril 40 mg oral tablet) 1 tab(s) by mouth Once a day Unchanged loratadine (loratadine 10 mg oral capsule) 1 cap by mouth Once a day Unchanged Misc Medication See instructions Unchanged ondansetron (ondansetron 4 mg oral tablet) 1 tab(s) by mouth Every 8 hours as needed for Nausea/Vomiting Unchanged sacrosidase (Sucraid 8500 intl units/ mL oral solution) Pharmacy Information [id number]: [address], [place] [id number] [phone] What How Much When Comments Stop Taking ALPRAZolam (ALPRAZolam 1 mg oral tablet) 1 tab(s) by mouth Once a day as needed for as needed for anxiety Please take this list to your next doctor s visit. Bring all medications you take, including over the counter medications, herbals and other supplements with you to your doctor s visit. Patients and families are reminded to discard old lists and to update any records with all medication providers or retail pharmacies. Education Materials Community-Acquired Pneumonia, Adult Pneumonia is a type of lung infection that causes swelling in the airways of the lungs. Mucus and fluid may also build up inside the airways. This may cause coughing and difficulty breathing. There are different types of pneumonia. One type can develop while a person is in a hospital. A different type is called community-acquired pneumonia. It develops in people who are not, and have not recently been, in the hospital or another type of health care facility. What are the causes? This condition may be caused by: Viruses. This is the most common cause of pneumonia. Bacteria. Community-acquired pneumonia is often caused by Streptococcus pneumoniae bacteria. These bacteria are often passed from one person to another by breathing in droplets from the cough or sneeze of an infected person. Fungi. This is the least common cause of pneumonia. What increases the risk? The following factors may make you more likely to develop this condition: Having a chronic disease, such as chronic obstructive pulmonary disease (COPD), asthma, congestive heart failure, cystic fibrosis, diabetes, or kidney disease. Having early-stage or late-stage HIV. Having sickle cell disease. Having had your spleen removed (splenectomy). Having poor dental hygiene. Having a medical condition that increases the risk of breathing in (aspirating) secretions from your own mouth and nose. Having a weakened body defense system (immune system). Being a smoker. Traveling to areas where pneumonia-causing germs commonly exist. Being around animal habitats or animals that have pneumonia-causing germs, including birds, bats, rabbits, cats, and farm animals. What are the signs or symptoms? Symptoms of this condition include: A dry cough. A wet (productive) cough. Fever. Sweating. Chest pain, especially when breathing deeply or coughing. Rapid breathing or difficulty breathing. Shortness of breath. Shaking chills. Fatigue. Muscle aches. How is this diagnosed? This condition may be diagnosed based on: Your medical history. A physical exam. You may also have tests, including: Chest X-rays. Tests of your blood oxygen level and other blood gases. Tests on blood, mucus (sputum), fluid around your lungs (pleural fluid), and urine. If your pneumonia is severe, other tests may be done to find the exact cause of your illness. How is this treated? Treatment for this condition depends on many factors, such as the cause of your pneumonia, the medicines you take, and other medical conditions that you have. For most adults, treatment and recovery from pneumonia may occur at home. In some cases, treatment must happen in a hospital. Treatment may include: Medicines that are given by mouth or through an IV, including: ? Antibiotic medicines, if the pneumonia was caused by bacteria. ? Antiviral medicines, if the pneumonia was caused by a virus. Being given extra oxygen. Respiratory therapy. Although rare, treating severe pneumonia may include: Using a machine to help you breathe (mechanical ventilation). This is done if you are not breathingwell on your own and you cannot maintain a safe blood oxygen level. Thoracentesis. This is a procedure to remove fluid from around one lung or both lungs to help you breathe better. Follow these instructions at home: Medicines Take gdvb-nhq-msuffgl and prescription medicines only as told by your health care provider. ? Only take cough medicine if you are losing sleep. Be aware that cough medicine can prevent your body's natural ability to remove mucus from your lungs. If you were prescribed an antibiotic medicine, take it as told by your health care provider. Do notstop taking the antibiotic even if you start to feel better. General instructions Sleep in a semi-upright position at night. Try sleeping in a reclining chair, or place a few pillows under your head. Rest as needed and get at least 8 hours of sleep each night. Drink enough water to keep your urine pale yellow. This will help to thin out mucus secretions in your lungs. Eat a healthy diet that includes plenty of vegetables, fruits, whole grains, low-fat dairy products, and lean protein. Do not use any products that contain nicotine or tobacco, such as cigarettes, e- cigarettes, and chewing tobacco. If you need help quitting, ask your health care provider. Keep all follow-up visits as told by your health care provider. This is important. How is this prevented? You can lower your risk of developing community-acquired pneumonia by: Getting a pneumococcal vaccine. There are different types and schedules of pneumococcal vaccines. Ask your health care provider which option is best for you. Consider getting the vaccine if: ? You are older than 65 years of age. ? You are older than 19 years of age and are undergoing cancer treatment, have chronic lung disease, or have other medical conditions that affect your immune system. Ask your health care provider if this applies to you. Getting an influenza vaccine every year. Ask your health care provider which type of vaccine is best for you. Getting regular checkups from your dentist. Washing your hands often. If soap and water are not available, use hand edge inker heels. Contact a health care provider if: You have a fever. You are losing sleep because you cannot control your cough with cough medicine. Get help right away if: You have worsening shortness of breath. You have increased chest pain. Your sickness becomes worse, especially if you are an older adult or have a weakened immune system. You cough up blood. Summary Pneumonia is an infection of the lungs. Community-acquired pneumonia develops in people who have not been in the hospital. It can be causedby bacteria, viruses, or fungi. This condition may be treated with antibiotics or antiviral medicines. Severe cases may require hospitalization, mechanical ventilation, and other procedures to drain fluid from the lungs. This information is not intended to replace advice given to you by your health care provider. Make sure you discuss any questions you have with your health care provider. Document Released: 06/02/2006 Document Revised: 01/28/2019 Document Reviewed: 01/28/2019 [employer] Patient Education 2020 [employer] Additional Information VACCINATE! IT SAVES LIVES! Members of the community who have not yet received the COVID-19 vaccine and would like to receive it can visit one of [facility] vaccine clinics. There are many vaccine clinic locations within the [facility]. For locations and available times, please visit https://[email or web address].gov/. It is important to note that some COVID mobile vaccine clinics are held outdoors and may be canceled in rainy or stormy conditions. To learn more about pediatric vaccinations (ages 5-11), we invite you to visit the [facility] webpage. https://www.[facility].org/pages/[email or web address]-Japajmtzjkr-Szxvaqrtpr-Haxwm-Yhf stions.htmlTo learn more about the COVID-19 vaccine, we invite you to visit the CDC website for a list of frequently asked questions.https://www.cdc.gov/coronavirus/2019-ncov/vaccines/faq.html [employer] Patient Portal Access Instructions: Stay connected with your healthcare team and access your personal medical information anytime with the [employer] Patient Portal. Please follow the directions below to create your [employer] account: 1.Access the email account you provided upon registration to the hospital/physician office.2.Look for an invitation email from [facility].3.Open the email and access the invitation link: AcceptInvitation to [employer].4.Fill in the required blackman to create your account. To access your account, visit [employer]Chart. Click the blue button labeled Access Patient Portal and then log in with the username and password that you created in the steps above. You will be able to view your test results, lab results, a summary of your visits, upcoming appointments and more. There is also a convenient messaging option where you can send secure messages to your p rovider. In addition, you will have the ability to download any documents or summaries to your computer and/or send the information securely to a physician. Remember that your healthcare information is confidential, so carefully consider who you will allowto register on the [employer] Patient Portal for access to your information. You can also access the [facility] Patient Portal on the [facility] johnny. Simply click on Patient Portal and then log into your account. If you would like to receive a full copy of your medical records, please contact the [facility] Medical Records Department by calling [phone], Friday through Friday between 8 a.m. and 4:30 p.m. HOW TO SAFELY DISPOSE OF PRESCRIPTION MEDICATIONS Please use one of the following methods to safely dispose of your unused medications. 1.Use a drug disposal kit: the drug disposal pouch allows you to safely discard your old and unuseddrugs. Ask your nurse to give you one when you are discharged.2.Visit a local take-back location: Many local pharmacies and police departments have programs that collect old and unwanted prescriptiondrugs. Call your local pharmacy or go to http://i'mma.[employer]/5Y1Of3e to find one close to you.3.Make use of household items: Use cat litter or old coffee grounds to dispose medications if other options arenot available. Mix your drugs with these household products, seal them in an airtight container andthrow it into the garbage. Call [facility]: [phone] to be sure your drugs can be disposed of in this way. Some medicines may require a different approach.4.Never flush your medications down the toilet. IF YOU HAVE BEEN PRESCRIBED AN OPIOID FOR PAIN If you have been prescribed an opioid (such as hydrocodone, oxycodone or morphine), it is critical to understand the possible side effects and risks of opioid pain medications. Even when taken as directed, opioids can have several side effects including: Tolerance, meaning you might need to take more of a medication for the same pain relief. Nausea, vomiting and/or constipation. Sleepiness, dizziness, dry mouth, confusion, depression or itching. Physical dependence, meaning you have withdrawal symptoms when a medication is stopped, can develop within a few days. KNOW YOUR RESPONSIBILITIES It is important to know exactly how much and how often to take the opioid pain medications you are prescribed. Never take opioids in higher amounts or more often than prescribed. Do not combine opioids with alcohol or other drugs that cause drowsiness, such as benzodiazepines, also known as benzos, including diazepam and alprazolam, muscle relaxants or sleep aids. Never sell or share prescription opioids. This is illegal. Store opioids in a secure place and out of reach of others (including children, family, friends and visitors). The last page of this document has been signed and retained as a CHART COPY. Signatures Patient Education Materials Community-Acquired Pneumonia, Adult Medication Leaflets My discharge plan and instructions have been reviewed and explained to me and I,SANTY RAZA understand my current condition and have read and understand these discharge instructions. I have received a written copy of the plan/instructions. If I have questions, I am aware that I should contactmy doctor. 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 The following is importantdischarge information regarding your hospital visit. Your Care Team DELORIS CHAVEZ APRN-KHURRAM What to do next Instructions From Your Doctor You were admitted to the medical ICU for right upper lobe pneumonia. You are safe for discharge andbeing sent home on a oral antibiotic called Augmentin. Take this medication twice a day for 10 days. Follow-up with your PCP. This pulmonology group will reach out and schedule an appointment with you in 3 to 4 weeks with a chest x-ray to reevaluate for resolution of your right upper lobe pneumonia. Follow Up Appointments Follow Up with [facility] When Why: [facility] will deliver your portable tank to your room prior to you leaving the hospital. Call [facility] when you are on your way home at [phone]. [facility]. Follow Up with DELORIS CHAVEZ When Within 1-2 days Where: [facility] [place] [address]- [phone] The Following Activity and Diet Have Been Ordered for You Discharge Activity - Ordered -- NO activity restrictions, 03/02/23 14:27:00 EDT Discharge Diet - Ordered -- Type of Diet: Regular Diet, No changes were made to your diet during your hospital stay. Please resume your pre hospitalization diet on discharge., 03/02/23 14:27:00 EDT The Following Equipment Has Been Ordered for You No qualifying data available. The Following Treatments Have Been Ordered for You Discharge Labs No qualifying data available. Discharge Radiology No qualifying data available. Other Therapies No qualifying data available. Post Acute Orders No qualifying data available. Someone Will Contact You Regarding These Home Health Referrals No home referrals have been ordered for you. No one will call you. Allergies Levaquin Peanuts (itching) amiloride-hydrochlorothiazide (itching) doxycycline meloxicam (swelling, rash, itching) Medications Please ask your primary doctor or pharmacist before taking any other medication not listed, including over the counter drugs, herbal medications, vitamins and or supplements as they may interact withyour home medications. What How Much When Instructions Last Dose New amoxicillin-clavulanate (amoxicillin-clavulanate 875 mg-125 mg oral tablet) 1 tab(s) by mouth Every 12 hours Duration: 10 Days twice a day Pickup at [id number] Unchanged albuterol (albuterol 2.5 mg/ 3 mL (0.083%) inhalation solution) 3 Milliliter by inhalation Every 6 hours as needed for for wheezing Unchanged amitriptyline (amitriptyline 25 mg oral tablet) 1 tab(s) by mouth Daily at bedtime Unchanged amLODIPine (amLODIPine 5 mg oral tablet) 1 tab(s) by mouth Once a day Unchanged atorvastatin (atorvastatin 10 mg oral tablet) 1 tab(s) by mouth Once a day Unchanged baclofen (baclofen 10 mg oral tablet) 0.5 tab(s) by mouth Two (2) times a day as needed for Spasm Unchanged benzonatate (benzonatate 100 mg oral capsule) 1 cap by mouth Three (3) times a day as needed for as needed for cough Duration: 7 Days Unchanged bifidobacterium infantis (Align 4 mg oral capsule) 1 cap by mouth Every day Unchanged budesonide-formoterol (Symbicort 160 mcg-4.5 mcg/ inh Inhaler) 2 puff(s) by inhalation Two (2) times a day Unchanged buPROPion (Wellbutrin XL 150 mg/ 24 hours oral tablet, extended release) 1 tab(s) by mouth Every 24 hours Unchanged cholecalciferol (cholecalciferol 125 mcg (5000 intl units) oral capsule) 1 cap by mouth Once a day Unchanged ciprofloxacin-dexamethasone otic (Ciprodex 0.3%-0.1% otic suspension) 2 Drops Both ears Two (2) times a day as needed for Control symptoms Unchanged citalopram (citalopram 40 mg oral tablet) 1 tab(s) by mouth Once a day Unchanged fluticasone nasal (fluticasone 50 mcg/ inh NASAL spray) 1 spray(s) each nostril Two (2) times a day as needed for Nasal congestion Unchanged furosemide (furosemide 20 mg oral tablet) 1 tab(s) by mouth Once a day Unchanged ipratropium (Atrovent HFA 17 mcg/ inh inhalation aerosol) 2 puff(s) by inhalation Four (4) times a day Unchanged lansoprazole (lansoprazole 15 mg oral delayed release capsule) 1 cap by mouth Once a day Unchanged levothyroxine (levothyroxine 200 mcg (0.2 mg) oral tablet) 1 tab(s) by mouth Once a day Unchanged lisinopril (lisinopril 40 mg oral tablet) 1 tab(s) by mouth Once a day Unchanged loratadine (loratadine 10 mg oral capsule) 1 cap by mouth Once a day Unchanged Misc Medication See instructions Unchanged ondansetron (ondansetron 4 mg oral tablet) 1 tab(s) by mouth Every 8 hours as needed for Nausea/Vomiting Unchanged sacrosidase (Sucraid 8500 intl units/ mL oral solution) Pharmacy Information [id number]: [address] [place], [place] [id number] [phone] What How Much When Comments Stop Taking ALPRAZolam (ALPRAZolam 1 mg oral tablet) 1 tab(s) by mouth Once a day as needed for as needed for anxiety Please take this list to your next doctor s visit. Bring all medications you take, including over the counter medications, herbals and other supplements with you to your doctor s visit. Patients and families are reminded to discard old lists and to update any records with all medication providers or retail pharmacies. Education Materials Community-Acquired Pneumonia, Adult Pneumonia is a type of lung infection that causes swelling in the airways of the lungs. Mucus and fluid may also build up inside the airways. This may cause coughing and difficulty breathing. There are different types of pneumonia. One type can develop while a person is in a hospital. A different type is called community-acquired pneumonia. It develops in people who are not, and have not recently been, in the hospital or another type of health care facility. What are the causes? This condition may be caused by: Viruses. This is the most common cause of pneumonia. Bacteria. Community-acquired pneumonia is often caused by Streptococcus pneumoniae bacteria. These bacteria are often passed from one person to another by breathing in droplets from the cough or sneeze of an infected person. Fungi. This is the least common cause of pneumonia. What increases the risk? The following factors may make you more likely to develop this condition: Having a chronic disease, such as chronic obstructive pulmonary disease (COPD), asthma, congestive heart failure, cystic fibrosis, diabetes, or kidney disease. Having early-stage or late-stage HIV. Having sickle cell disease. Having had your spleen removed (splenectomy). Having poor dental hygiene. Having a medical condition that increases the risk of breathing in (aspirating) secretions from your own mouth and nose. Having a weakened body defense system (immune system). Being a smoker. Traveling to areas where pneumonia-causing germs commonly exist. Being around animal habitats or animals that have pneumonia-causing germs, including birds, bats, rabbits, cats, and farm animals. What are the signs or symptoms? Symptoms of this condition include: A dry cough. A wet (productive) cough. Fever. Sweating. Chest pain, especially when breathing deeply or coughing. Rapid breathing or difficulty breathing. Shortness of breath. Shaking chills. Fatigue. Muscle aches. How is this diagnosed? This condition may be diagnosed based on: Your medical history. A physical exam. You may also have tests, including: Chest X-rays. Tests of your blood oxygen level and other blood gases. Tests on blood, mucus (sputum), fluid around your lungs (pleural fluid), and urine. If your pneumonia is severe, other tests may be done to find the exact cause of your illness. How is this treated? Treatment for this condition depends on many factors, such as the cause of your pneumonia, the medicines you take, and other medical conditions that you have. For most adults, treatment and recovery from pneumonia may occur at home. In some cases, treatment must happen in a hospital. Treatment may include: Medicines that are given by mouth or through an IV, including: ? Antibiotic medicines, if the pneumonia was caused by bacteria. ? Antiviral medicines, if the pneumonia was caused by a virus. Being given extra oxygen. Respiratory therapy. Although rare, treating severe pneumonia may include: Using a machine to help you breathe (mechanical ventilation). This is done if you are not breathingwell on your own and you cannot maintain a safe blood oxygen level. Thoracentesis. This is a procedure to remove fluid from around one lung or both lungs to help you breathe better. Follow these instructions at home: Medicines Take tvzk-xtw-lsxjdeo and prescription medicines only as told by your health care provider. ? Only take cough medicine if you are losing sleep. Be aware that cough medicine can prevent your body's natural ability to remove mucus from your lungs. If you were prescribed an antibiotic medicine, take it as told by your health care provider. Do notstop taking the antibiotic even if you start to feel better. General instructions Sleep in a semi-upright position at night. Try sleeping in a reclining chair, or place a few pillows under your head. Rest as needed and get at least 8 hours of sleep each night. Drink enough water to keep your urine pale yellow. This will help to thin out mucus secretions in your lungs. Eat a healthy diet that includes plenty of vegetables, fruits, whole grains, low-fat dairy products, and lean protein. Do not use any products that contain nicotine or tobacco, such as cigarettes, e- cigarettes, and chewing tobacco. If you need help quitting, ask your health care provider. Keep all follow-up visits as told by your health care provider. This is important. How is this prevented? You can lower your risk of developing community-acquired pneumonia by: Getting a pneumococcal vaccine. There are different types and schedules of pneumococcal vaccines. Ask your health care provider which option is best for you. Consider getting the vaccine if: ? You are older than 65 years of age. ? You are older than 19 years of age and are undergoing cancer treatment, have chronic lung disease, or have other medical conditions that affect your immune system. Ask your health care provider if this applies to you. Getting an influenza vaccine every year. Ask your health care provider which type of vaccine is best for you. Getting regular checkups from your dentist. Washing your hands often. If soap and water are not available, use hand edge inker heels. Contact a health care provider if: You have a fever. You are losing sleep because you cannot control your cough with cough medicine. Get help right away if: You have worsening shortness of breath. You have increased chest pain. Your sickness becomes worse, especially if you are an older adult or have a weakened immune system. You cough up blood. Summary Pneumonia is an infection of the lungs. Community-acquired pneumonia develops in people who have not been in the hospital. It can be causedby bacteria, viruses, or fungi. This condition may be treated with antibiotics or antiviral medicines. Severe cases may require hospitalization, mechanical ventilation, and other procedures to drain fluid from the lungs. This information is not intended to replace advice given to you by your health care provider. Make sure you discuss any questions you have with your health care provider. Document Released: 06/02/2006 Document Revised: 01/28/2019 Document Reviewed: 01/28/2019 [employer] Patient Education 2020 [employer] Additional Information VACCINATE! IT SAVES LIVES! Members of the community who have not yet received the COVID-19 vaccine and would like to receive it can visit one of [facility] vaccine clinics. There are many vaccine clinic locations within the [facility]. For locations and available times, please visit [email or web address].gov/. It is important to note that some COVID mobile vaccine clinics are held outdoors and may be canceled in rainy or stormy conditions. To learn more about pediatric vaccinations (ages 5-11), we invite you to visit the [facility] webpage. https://www.[facility].org/pages/1890-Iqwsa-Bhlsinvnjox-Lviybeowsk-Gnjke-Mfo stions.htmlTo learn more about the COVID-19 vaccine, we invite you to visit the CDC website for a list of frequently asked questions.https://www.cdc.gov/coronavirus/2019-ncov/vaccines/faq.html [employer] Patient Portal Access Instructions: Stay connected with your healthcare team and access your personal medical information anytime with the [employer] Patient Portal. Please follow the directions below to create your [employer] account: 1.Access the email account you provided upon registration to the hospital/physician office.2.Look for an invitation email from [facility].3.Open the email and access the invitation link: AcceptInvitation to [facility].4.Fill in the required blackman to create your account. To access your account, visit [email or web address]. Click the blue button labeled Access Patient Portal and then log in with the username and password that you created in the steps above. You will be able to view your test results, lab results, a summary of your visits, upcoming appointments and more. There is also a convenient messaging option where you can send secure messages to your p [employer]vider. In addition, you will have the ability to download any documents or summaries to your computer and/or send the information securely to a physician. Remember that your healthcare information is confidential, so carefully consider who you will allowto register on the [employer] Patient Portal for access to your information. You can also access the [employer] Patient Portal on the [employer] johnny. Simply click on Patient Portal and then log into your account. If you would like to receive a full copy of your medical records, please contact the [facility] Medical Records Department by calling [phone], Friday through Friday between 8 a.m. and 4:30 p.m. HOW TO SAFELY DISPOSE OF PRESCRIPTION MEDICATIONS Please use one of the following methods to safely dispose of your unused medications. 1.Use a drug disposal kit: the drug disposal pouch allows you to safely discard your old and unuseddrugs. Ask your nurse to give you one when you are discharged.2.Visit a local take-back location: Many local pharmacies and police departments have programs that collect old and unwanted prescriptiondrugs. Call your local pharmacy or go to http://i'mma.[employer]/3E8Mt6f to find one close to you.3.Make use of household items: Use cat litter or old coffee grounds to dispose medications if other options arenot available. Mix your drugs with these household products, seal them in an airtight container andthrow it into the garbage. Call [facility]: [phone] to be sure your drugs can be disposed of in this way. Some medicines may require a different approach.4.Never flush your medications down the toilet. IF YOU HAVE BEEN PRESCRIBED AN OPIOID FOR PAIN If you have been prescribed an opioid (such as hydrocodone, oxycodone or morphine), it is critical to understand the possible side effects and risks of opioid pain medications. Even when taken as directed, opioids can have several side effects including: Tolerance, meaning you might need to take more of a medication for the same pain relief. Nausea, vomiting and/or constipation. Sleepiness, dizziness, dry mouth, confusion, depression or itching. Physical dependence, meaning you have withdrawal symptoms when a medication is stopped, can develop within a few days. KNOW YOUR RESPONSIBILITIES It is important to know exactly how much and how often to take the opioid pain medications you are prescribed. Never take opioids in higher amounts or more often than prescribed. Do not combine opioids with alcohol or other drugs that cause drowsiness, such as benzodiazepines, also known as benzos, including diazepam and alprazolam, muscle relaxants or sleep aids. Never sell or share prescription opioids. This is illegal. Store opioids in a secure place and out of reach of others (including children, family, friends and visitors). The last page of this document has been signed and retained as a CHART COPY. Signatures Patient Education Materials Community-Acquired Pneumonia, Adult Medication Leaflets My discharge plan and instructions have been reviewed and explained to me and I,SANTY RAZA understand my current condition and have read and understand these discharge instructions. I have received a written copy of the plan/instructions. If I have questions, I am aware that I should contactmy doctor. 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 The following is importantdischarge information regarding your hospital visit. Your Care Team DELORIS CHAVEZ What to do next Instructions From Your Doctor You were admitted to the medical ICU for right upper lobe pneumonia. You are safe for discharge andbeing sent home on a oral antibiotic called Augmentin. Take this medication twice a day for 10 days. Follow-up with your PCP. This pulmonology group will reach out and schedule an appointment with you in 3 to 4 weeks with a chest x-ray to reevaluate for resolution of your right upper lobe pneumonia. Follow Up Appointments Follow Up with DELORIS CHAVEZ When Within 1-2 days Where: [address] [place] [phone] The Following Activity and Diet Have Been Ordered for You Discharge Activity - Ordered -- NO activity restrictions, 03/02/23 14:27:00 EDT Discharge Diet - Ordered -- Type of Diet: Regular Diet, No changes were made to your diet during your hospital stay. Please resume your pre hospitalization diet on discharge., 03/02/23 14:27:00 EDT The Following Equipment Has Been Ordered for You Discharge Home Equipment Discharge Oxygen Therapy - Ordered -- Oxygen, Mobile in the Home, Nasal Cannula, 3 liters per minute, 1 month(s), 03/02/23 14:27:00 EDT Discharge Oxygen Therapy - Ordered -- Oxygen (CONTINUOUS) Concentrator, Portable O2 Mobile in the Home, Nasal Cannula, 2 liters per minute, Acute hypoxic respiratory failure, 1 month(s), Pt requiring O2 with ambulation, 03/02/23 15:27:00 EDT The Following Treatments Have Been Ordered for You Discharge Labs No qualifying data available. Discharge Radiology No qualifying data available. Other Therapies No qualifying data available. Post Acute Orders No qualifying data available. Someone Will Contact You Regarding These Home Health Referrals No home referrals have been ordered for you. No one will call you. Allergies Levaquin Peanuts (itching) amiloride-hydrochlorothiazide (itching) doxycycline meloxicam (swelling, rash, itching) Medications Please ask your primary doctor or pharmacist before taking any other medication not listed, including over the counter drugs, herbal medications, vitamins and or supplements as they may interact withyour home medications. What How Much When Instructions Last Dose New amoxicillin-clavulanate (amoxicillin-clavulanate 875 mg-125 mg oral tablet) 1 tab(s) by mouth Every 12 hours Duration: 10 Days twice a day Pickup at [id number] Unchanged albuterol (albuterol 2.5 mg/ 3 mL (0.083%) inhalation solution) 3 Milliliter by inhalation Every 6 hours as needed for for wheezing Unchanged amitriptyline (amitriptyline 25 mg oral tablet) 1 tab(s) by mouth Daily at bedtime Unchanged amLODIPine (amLODIPine 5 mg oral tablet) 1 tab(s) by mouth Once a day Unchanged atorvastatin (atorvastatin 10 mg oral tablet) 1 tab(s) by mouth Once a day Unchanged baclofen (baclofen 10 mg oral tablet) 0.5 tab(s) by mouth Two (2) times a day as needed for Spasm Unchanged benzonatate (benzonatate 100 mg oral capsule) 1 cap by mouth Three (3) times a day as needed for as needed for cough Duration: 7 Days Unchanged bifidobacterium infantis (Align 4 mg oral capsule) 1 cap by mouth Every day Unchanged budesonide-formoterol (Symbicort 160 mcg-4.5 mcg/ inh Inhaler) 2 puff(s) by inhalation Two (2) times a day Unchanged buPROPion (Wellbutrin XL 150 mg/ 24 hours oral tablet, extended release) 1 tab(s) by mouth Every 24 hours Unchanged cholecalciferol (cholecalciferol 125 mcg (5000 intl units) oral capsule) 1 cap by mouth Once a day Unchanged ciprofloxacin-dexamethasone otic (Ciprodex 0.3%-0.1% otic suspension) 2 Drops Both ears Two (2) times a day as needed for Control symptoms Unchanged citalopram (citalopram 40 mg oral tablet) 1 tab(s) by mouth Once a day Unchanged fluticasone nasal (fluticasone 50 mcg/ inh NASAL spray) 1 spray(s) each nostril Two (2) times a day as needed for Nasal congestion Unchanged furosemide (furosemide 20 mg oral tablet) 1 tab(s) by mouth Once a day Unchanged ipratropium (Atrovent HFA 17 mcg/ inh inhalation aerosol) 2 puff(s) by inhalation Four (4) times a day Unchanged lansoprazole (lansoprazole 15 mg oral delayed release capsule) 1 cap by mouth Once a day Unchanged levothyroxine (levothyroxine 200 mcg (0.2 mg) oral tablet) 1 tab(s) by mouth Once a day Unchanged lisinopril (lisinopril 40 mg oral tablet) 1 tab(s) by mouth Once a day Unchanged loratadine (loratadine 10 mg oral capsule) 1 cap by mouth Once a day Unchanged Misc Medication See instructions Unchanged ondansetron (ondansetron 4 mg oral tablet) 1 tab(s) by mouth Every 8 hours as needed for Nausea/Vomiting Unchanged sacrosidase (Sucraid 8500 intl units/ mL oral solution) Pharmacy Information [id number]: [address], [place] [id number] [phone] What How Much When Comments Stop Taking ALPRAZolam (ALPRAZolam 1 mg oral tablet) 1 tab(s) by mouth Once a day as needed for as needed for anxiety Please take this list to your next doctor s visit. Bring all medications you take, including over the counter medications, herbals and other supplements with you to your doctor s visit. Patients and families are reminded to discard old lists and to update any records with all medication providers or retail pharmacies. Education Materials Community-Acquired Pneumonia, Adult Pneumonia is a type of lung infection that causes swelling in the airways of the lungs. Mucus and fluid may also build up inside the airways. This may cause coughing and difficulty breathing. There are different types of pneumonia. One type can develop while a person is in a hospital. A different type is called community-acquired pneumonia. It develops in people who are not, and have not recently been, in the hospital or another type of health care facility. What are the causes? This condition may be caused by: Viruses. This is the most common cause of pneumonia. Bacteria. Community-acquired pneumonia is often caused by Streptococcus pneumoniae bacteria. These bacteria are often passed from one person to another by breathing in droplets from the cough or sneeze of an infected person. Fungi. This is the least common cause of pneumonia. What increases the risk? The following factors may make you more likely to develop this condition: Having a chronic disease, such as chronic obstructive pulmonary disease (COPD), asthma, congestive heart failure, cystic fibrosis, diabetes, or kidney disease. Having early-stage or late-stage HIV. Having sickle cell disease. Having had your spleen removed (splenectomy). Having poor dental hygiene. Having a medical condition that increases the risk of breathing in (aspirating) secretions from your own mouth and nose. Having a weakened body defense system (immune system). Being a smoker. Traveling to areas where pneumonia-causing germs commonly exist. Being around animal habitats or animals that have pneumonia-causing germs, including birds, bats, rabbits, cats, and farm animals. What are the signs or symptoms? Symptoms of this condition include: A dry cough. A wet (productive) cough. Fever. Sweating. Chest pain, especially when breathing deeply or coughing. Rapid breathing or difficulty breathing. Shortness of breath. Shaking chills. Fatigue. Muscle aches. How is this diagnosed? This condition may be diagnosed based on: Your medical history. A physical exam. You may also have tests, including: Chest X-rays. Tests of your blood oxygen level and other blood gases. Tests on blood, mucus (sputum), fluid around your lungs (pleural fluid), and urine. If your pneumonia is severe, other tests may be done to find the exact cause of your illness. How is this treated? Treatment for this condition depends on many factors, such as the cause of your pneumonia, the medicines you take, and other medical conditions that you have. For most adults, treatment and recovery from pneumonia may occur at home. In some cases, treatment must happen in a hospital. Treatment may include: Medicines that are given by mouth or through an IV, including: ? Antibiotic medicines, if the pneumonia was caused by bacteria. ? Antiviral medicines, if the pneumonia was caused by a virus. Being given extra oxygen. Respiratory therapy. Although rare, treating severe pneumonia may include: Using a machine to help you breathe (mechanical ventilation). This is done if you are not breathingwell on your own and you cannot maintain a safe blood oxygen level. Thoracentesis. This is a procedure to remove fluid from around one lung or both lungs to help you breathe better. Follow these instructions at home: Medicines Take wbip-hzk-wcarpne and prescription medicines only as told by your health care provider. ? Only take cough medicine if you are losing sleep. Be aware that cough medicine can prevent your body's natural ability to remove mucus from your lungs. If you were prescribed an antibiotic medicine, take it as told by your health care provider. Do notstop taking the antibiotic even if you start to feel better. General instructions Sleep in a semi-upright position at night. Try sleeping in a reclining chair, or place a few pillows under your head. Rest as needed and get at least 8 hours of sleep each night. Drink enough water to keep your urine pale yellow. This will help to thin out mucus secretions in your lungs. Eat a healthy diet that includes plenty of vegetables, fruits, whole grains, low-fat dairy products, and lean protein. Do not use any products that contain nicotine or tobacco, such as cigarettes, e- cigarettes, and chewing tobacco. If you need help quitting, ask your health care provider. Keep all follow-up visits as told by your health care provider. This is important. How is this prevented? You can lower your risk of developing community-acquired pneumonia by: Getting a pneumococcal vaccine. There are different types and schedules of pneumococcal vaccines. Ask your health care provider which option is best for you. Consider getting the vaccine if: ? You are older than 65 years of age. ? You are older than 19 years of age and are undergoing cancer treatment, have chronic lung disease, or have other medical conditions that affect your immune system. Ask your health care provider if this applies to you. Getting an influenza vaccine every year. Ask your health care provider which type of vaccine is best for you. Getting regular checkups from your dentist. Washing your hands often. If soap and water are not available, use hand edge inker heels. Contact a health care provider if: You have a fever. You are losing sleep because you cannot control your cough with cough medicine. Get help right away if: You have worsening shortness of breath. You have increased chest pain. Your sickness becomes worse, especially if you are an older adult or have a weakened immune system. You cough up blood. Summary Pneumonia is an infection of the lungs. Community-acquired pneumonia develops in people who have not been in the hospital. It can be causedby bacteria, viruses, or fungi. This condition may be treated with antibiotics or antiviral medicines. Severe cases may require hospitalization, mechanical ventilation, and other procedures to drain fluid from the lungs. This information is not intended to replace advice given to you by your health care provider. Make sure you discuss any questions you have with your health care provider. Document Released: 06/02/2006 Document Revised: 01/28/2019 Document Reviewed: 01/28/2019 [employer] Patient Education 2020 [employer]. Additional Information VACCINATE! IT SAVES LIVES! Members of the community who have not yet received the COVID-19 vaccine and would like to receive it can visit one of [facility] vaccine clinics. There are many vaccine clinic locations within the [facility]. For locations and available times, please visit https://gettheshot.coronavirus.[place].gov/. It is important to note that some COVID mobile vaccine clinics are held outdoors and may be canceled in rainy or stormy conditions. To learn more about pediatric vaccinations (ages 5-11), we invite you to visit the [facility] webpage. [email or web address]/[email or web address] [email or web address] learn more about the COVID-19 vaccine, we invite you to visit the CDC website for a list of frequently asked questions.https://www.cdc.gov/coronavirus/2019-ncov/vaccines/faq.html [facility] Patient Portal Access Instructions: Stay connected with your healthcare team and access your personal medical information anytime with the [facility] Patient Portal. Please follow the directions below to create your [employer] account: 1.Access the email account you provided upon registration to the hospital/physician office.2.Look for an invitation email from [facility].3.Open the email and access the invitation link: AcceptInvitation to [facility] [employer].4.Fill in the required blackman to create your account. To access your account, visit [email or web address]. Click the blue button labeled Access Patient Portal and then log in with the username and password that you created in the steps above. You will be able to view your test results, lab results, a summary of your visits, upcoming appointments and more. There is also a convenient messaging option where you can send secure messages to your p rovider. In addition, you will have the ability to download any documents or summaries to your computer and/or send the information securely to a physician. Remember that your healthcare information is confidential, so carefully consider who you will allowto register on the [employer] Patient Portal for access to your information. You can also access the [facility] Patient Portal on the [facility] [employer]. Simply click on Patient Portal and then log into your account. If you would like to receive a full copy of your medical records, please contact the [facility] Medical Records Department by calling [phone], Friday through Friday between 8 a.m. and 4:30 p.m. HOW TO SAFELY DISPOSE OF PRESCRIPTION MEDICATIONS Please use one of the following methods to safely dispose of your unused medications. 1.Use a drug disposal kit: the drug disposal pouch allows you to safely discard your old and unuseddrugs. Ask your nurse to give you one when you are discharged.2.Visit a local take-back location: Many local pharmacies and police departments have programs that collect old and unwanted prescriptiondrugs. Call your local pharmacy or go to http://i'mma.[employer]/0M5Nf3t to find one close to you.3.Make use of household items: Use cat litter or old coffee grounds to dispose medications if other options arenot available. Mix your drugs with these household products, seal them in an airtight container andthrow it into the garbage. Call [facility]: [phone] to be sure your drugs can be disposed of in this way. Some medicines may require a different approach.4.Never flush your medications down the toilet. IF YOU HAVE BEEN PRESCRIBED AN OPIOID FOR PAIN If you have been prescribed an opioid (such as hydrocodone, oxycodone or morphine), it is critical to understand the possible side effects and risks of opioid pain medications. Even when taken as directed, opioids can have several side effects including: Tolerance, meaning you might need to take more of a medication for the same pain relief. Nausea, vomiting and/or constipation. Sleepiness, dizziness, dry mouth, confusion, depression or itching. Physical dependence, meaning you have withdrawal symptoms when a medication is stopped, can develop within a few days. KNOW YOUR RESPONSIBILITIES It is important to know exactly how much and how often to take the opioid pain medications you are prescribed. Never take opioids in higher amounts or more often than prescribed. Do not combine opioids with alcohol or other drugs that cause drowsiness, such as benzodiazepines, also known as benzos, including diazepam and alprazolam, muscle relaxants or sleep aids. Never sell or share prescription opioids. This is illegal. Store opioids in a secure place and out of reach of others (including children, family, friends and visitors). The last page of this document has been signed and retained as a CHART COPY. Signatures Patient Education Materials Community-Acquired Pneumonia, Adult Medication Leaflets My discharge plan and instructions have been reviewed and explained to me and I,SANTY RAZA understand my current condition and have read and understand these discharge instructions. I have received a written copy of the plan/instructions. If I have questions, I am aware that I should contactmy doctor. 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 Up in a chair. Saturation 93% on room air at rest. Ambulating around the room without difficulty. Feels close to baseline. Started on oral Augmentin. Minimal of right-sided pleuritic chest pain improved with Tylenol Objective Vitals and Measurements T: 36.8 C (Oral) TMIN: 36.8 C (Oral) TMAX: 37.0 C (Oral) HR: 80 RR: 21 BP: 137/66 SpO2: 94% Physical Exam Obese. Up in chair. In no acute distress. Lungs are clear anteriorly and posteriorly bilaterally. Heart sounds are distant. Abdomen obese but nontender. No leg edema. 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 No skin rash. Weight Dosing Weight: 126.5 kg (03/01/23) Dosing Weight: 126.5 kg (02/28/23) Medications Medications (14) Active Scheduled: (10) albuterol - ipratropium 2.5 mg-0.5 mg/3 mL Inhal Lucinda UD 3 mL, Inhalation, q4hRT amitriptyline 25 mg tablet 25 mg 1 tab(s), Oral, qHS amoxicillin-clavulanate 875 mg - 125 mg tablet 875 mg 1 tab(s), Oral, BIDM atorvastatin 10 mg tablet 10 mg 1 tab(s), Oral, qDay budesonide 0.25 mg/2 mL Susp UD 0.25 mg 2 mL, Inhalation, BIDRT bupropion 150 mg/24 hours ER tablet 150 mg 1 tab(s), Oral, qDay cholecalciferol 125 mcg capsule (Vit D3 5000 unit(s)) 125 mcg 1 cap(s), Oral, qDay citalopram 20 mg Tablet 20 mg 1 tab(s), Oral, qDay heparin 5,000 units/mL (1 mL) vial 5,000 unit(s) 1 mL, Subcutaneous, q8h levothyroxine 200 mcg Tablet 200 mcg 1 tab(s), Oral, qDay Continuous: (0) PRN: (4) albuterol 0.083% Soln UD (2.5mg/3 mL) 2.5 mg 3 mL, Inhalation, q2hRT ALPRAZOLam 1 mg tablet 1 mg 1 tab(s), Oral, qDay fluticasone nasal 0.05 mg/inh [place] 50 mcg 1 spray(s), Nostril, each, BID ondansetron 4 mg tablet 4 mg 1 tab(s), Oral, q8h Lab Results 03/02 02:38 WBC: 9.2 Hgb: 12.8 Hct: 37.4 Platelet: 171 Neutrophil %: 76.4 H Glucose Level: 115 Sodium Level: 136 Potassium Level: 4.0 BUN: 9.0 Creatinine Lvl (s): 0.66 Assessment/Plan 1. Community-acquired right upper lobe pneumonia, improved. Right pleurisy 2. Hypovolemic and septic shock has resolved 3. Underlying history of COPD without acute exacerbation 4. History of obstructive sleep apnea compliant with CPAP 5. Other history includes hypertension, hypothyroidism, anxiety and depression Plan: 1. Changed to Augmentin 875 mg twice daily today 2. Oxygenating well on room air and with exertion 3. Restart back on medication 4. The patient can be discharged home today on Augmentin 875 mg twice daily. Restart on Symbicort. The patient will be followed in the office in about 3 to 4 weeks with chest x- ray as well to document resolution of infiltrate. Discussed with the MICU MTS teams Digitally Signed by EDINSON SANCEHZ MD on 03/02/2023 02:55 PM [facility] [id number] Discharge summary Date of Service 03/02/2023 14:44:55 Discharge Diagnosis 1. Right upper lobe community-acquired pneumonia, new O2 requirement 3L 2. Transient hypotension secondary to sepsis and hypovolemia, resolved with fluid resuscitation 3. Underlying history of COPD without acute exacerbation 4. History of obstructive sleep apnea. Usually compliant with CPAP 5. History of hypertension and hypothyroidism and obesity Hospital Course She is patient seen with a 62-year-old female with a medical history of COPD without oxygen use, obstructive sleep apnea and compliant with CPAP. Under the impression his legs right and soft Toney itis due to family understands that means that transferred from [facility] for pneumonia and hypotension. With concerns she will go to septic shock. She was initially seen at [facility] for right chest pain and was found to have a right upper lobe pneumonia. She was admitted to the [facility] floors. Once on the floor she was found to become more short of breath requiring BiPAP support and hypotensive that was not responsive to fluid resuscitation. There is concern for hemodynamic stability and potential worsening hypotension therefore transfer was initiated to [facility] medical ICU. Once in the ICU she did not require any pressor support. She also was weaned off of the BiPAP and was put on only 3 L nasal cannula which is an increase from her baseline of no oxygen support. While in the ICU she was fluid resuscitated and given IV antibiotics. She did also endorses right chest pain that felt better with Tylenol. Informed the patient that she had pleurisy from the right upper lobe pneumonia. Imaging of the chest included a chest x-ray and CT which did confirm a dense right upper lobe infiltrate. Initially the patient was scheduled to be transferred to a stepdown floor but due to no beds being available and upon reevaluation the following day patient showed significant improvement and is considered safe enough for discharge with home oxygen and follow-up at the pulmonary group office within3 to 4 weeks with a repeat chest x-ray. She will also follow-up with her own PCP. We are prescribing her continuing antibiotic with the choice of Augmentin 875 mg twice daily for 10 days. Allergies Levaquin Peanuts (itching) amiloride-hydrochlorothiazide (itching) doxycycline meloxicam (swelling, rash, itching) Consults No qualifying data available. Imaging Results and Diagnostics CT thorax w/o contrast IMPRESSION: Very prominent consolidative pneumonia within the right upper lobe with much smaller adjacent areas of infiltrate as well. Follow-up to resolution recommended to exclude non inflammatory etiologies. Trace bilateral pleural effusions with small areas of adjacent lower lobe atelectasis. Objective Vitals and Measurements T: 36.8 C (Oral) TMIN: 36.8 C (Oral) TMAX: 37.0 C (Oral) HR: 80 RR: 21 BP: 137/66 SpO2: 94% Weight Dosing Weight: 126.5 kg (03/01/23) Dosing Weight: 126.5 kg (02/28/23) Code Status Code Status - Ordered -- 02/28/23 19:23:00 EDT, Full Code, Constant Order Admission Date 02/28/23 Discharge Date 03/02/2023 14:45:18 Medications New Prescription amoxicillin-clavulanate (amoxicillin-clavulanate 875 mg-125 mg oral tablet)1 tab(s) by mouth every 12 hours for 10 Days. twice a day. Refills: 0. Unchanged albuterol (albuterol 2.5 mg/3 mL (0.083%) inhalation solution)3 Milliliter by inhalation every 6 hours as needed for wheezing. amitriptyline (amitriptyline 25 mg oral tablet)1 tab(s) by mouth daily at bedtime. amLODIPine (amLODIPine 5 mg oral tablet)1 tab(s) by mouth once a day. atorvastatin (atorvastatin 10 mg oral tablet)1 tab(s) by mouth once a day. baclofen (baclofen 10 mg oral tablet)0.5 tab(s) by mouth two (2) times a day as needed Spasm. benzonatate (benzonatate 100 mg oral capsule)1 cap by mouth three (3) times a day as needed as needed for cough for 7 Days. bifidobacterium infantis (Align 4 mg oral capsule)1 cap by mouth every day. budesonide-formoterol (Symbicort 160 mcg-4.5 mcg/inh Inhaler)2 puff(s) by inhalation two (2) times a day. buPROPion (Wellbutrin XL 150 mg/24 hours oral tablet, extended release)1 tab(s) by mouth every 24 hours. cholecalciferol (cholecalciferol 125 mcg (5000 intl units) oral capsule)1 cap by mouth once a day. ciprofloxacin-dexamethasone otic (Ciprodex 0.3%-0.1% otic suspension)2 Drops Both ears two (2) times a day as needed Control symptoms. citalopram (citalopram 40 mg oral tablet)1 tab(s) by mouth once a day. fluticasone nasal (fluticasone 50 mcg/inh NASAL spray)1 spray(s) each nostril two (2) times a day as needed Nasal congestion. furosemide (furosemide 20 mg oral tablet)1 tab(s) by mouth once a day. ipratropium (Atrovent HFA 17 mcg/inh inhalation aerosol)2 puff(s) by inhalation four (4) times a day. lansoprazole (lansoprazole 15 mg oral delayed release capsule)1 cap by mouth once a day. levothyroxine (levothyroxine 200 mcg (0.2 mg) oral tablet)1 tab(s) by mouth once a day. lisinopril (lisinopril 40 mg oral tablet)1 tab(s) by mouth once a day. loratadine (loratadine 10 mg oral capsule)1 cap by mouth once a day. Misc Medication ondansetron (ondansetron 4 mg oral tablet)1 tab(s) by mouth every 8 hours as needed Nausea/Vomiting. sacrosidase (Sucraid 8500 intl units/mL oral solution) Discontinued ALPRAZolam (ALPRAZolam 1 mg oral tablet)1 tab(s) by mouth once a day as needed as needed for anxiety. Follow Up Follow Up with DELORIS CHAVEZ When Within 1-2 days Where: [address] [place] [address]- [phone] Follow Up Appointments No qualifying data available. Follow Up Labs/Studies Discharge Labs No Follow-up Labs Discharge Studies No Follow-up Studies Discharge Diet Discharge Diet - Ordered -- Type of Diet: Regular Diet, No changes were made to your diet during your hospital stay. Please resume your pre hospitalization diet on discharge., 03/02/23 14:27:00 EDT Discharge Activity Discharge Activity - Ordered -- NO activity restrictions, 03/02/23 14:27:00 EDT Condition on Discharge Fair Readmission Risk/Palliative Score No qualifying data available. Discharge Disposition Home Information Provided To patient Digitally Signed by SOFIA SANCHES DO on 03/02/2023 03:04 PM Digitally Signed by EDINSON SANCHEZ MD on 03/02/2023 03:16 PM [id number] History and physical note Date of Service 02/28/2023 Chief Complaint Right-sided chest pain on inspiration x 1 day. History of Present Illness This is a very pleasant 62-year-old female with PMH: COPD not on home O2, TRINI on CPAP, HTN, hypothyroidism, chronic pain, anxiety/depression, HLD, prediabetes, GERD. She presented to [facility] with 1 day history of chest pain, on the right front of her chest, worse with deep inspiration. 5/10 stabbing feeling. Associated with fatigue, cough, nonproductive in nature. She was seen at [facility] and had leukocytosis, with chest x-ray showing right upper lobe infiltrate. CT chest was done that showed consolidation involving the right upper lobe. She was given 1 L of crystalloid fluid, admitted to [facility] medical floors. There she was also found to have acute kidney injury with a creatinine of 3.2, with no known history of chronic kidney disease. Due to persistent hypotension, concern for impending septic shock, she was accepted to transfer from [facility] to [facility] intensive care unit for further observation and management of sepsis secondary to lobar pneumonia. Review of Systems Negative except those mentioned in HPI Physical Exam Vitals and Measurements T: 36.7 C (Oral) TMIN: 36.7 C (Oral) TMAX: 37.2 C (Oral) HR: 89(Monitored) RR: 19 BP: 125/67 SpO2: 92% HT: 165.1 cm WT: 126.5 kg BMI: 46.41 Weight Dosing Weight: 126.5 kg (02/28/23) General Appearance: Appears to be stable and in no acute distress. Obese. On NC. Head: Atraumatic and normocephalic EENT: EOMI, no conjunctival injection. sclera anicteric. Neck: No thyromegaly, no cervical lymphadenopathy Abdominal: Soft,nontender, Bowel sounds present x4 quadrants Cardiac: S1 and S2 normal. RRR. No murmurs, rubs, or gallops. Lungs: Coarse breath sounds R>L Extremities: Trace edema b/l Neurological: CN II through XII grossly intact. Psych: Mood stable Lab Results 02/28 20:25 WBC: 23.8 H Hgb: 12.4 Hct: 37.0 Platelet: 176 Glucose Level: 126 H Sodium Level: 133 L Potassium Level: 3.9 BUN: 24.0 H Creatinine Lvl (s): 1.27 H Assessment/Plan #Acute Hypoxic Respiratory Failure 2/2 RUL Pneumonia #Sepsis secondary to right upper lobe pneumonia #Acute kidney injury, likely prerenal #History of TRINI on CPAP #History of prediabetes #History of hypertension #History of hypothyroidism #History of COPD #DVT prophylaxis #Full CODE STATUS Plan: Initial showing highly collapsible IVC, will challenge with IV fluid 1 L bolus and maintenance at 125 cc/h. -Re examine fluid status w/ POCUS / Clinical exam Treatments for community-acquired pneumonia ceftriaxone, azithromycin, check mycoplasma, Legionella. Daily CBC, BMP and magnesium with goal potassium greater than 4 and magnesium greater than 2 for cardiac optimization CCM glycemic for hyperglycemia -Resume home CPAP We will resume home medications as tolerated such as levothyroxine/ psychiatric medications DVT prophylaxis with heparin subcutaneous Full CODE STATUS Problem List/Past Medical History Ongoing Anxiety attack HTN (hypertension) Hypotension Sepsis Historical No qualifying data Procedure/Surgical History None Medications Home Medications (23) Active albuterol 2.5 mg/3 mL (0.083%) inhalation solution 2.5 mg = 3 mL, PRN, Inhalation, q6h Align 4 mg oral capsule 4 mg = 1 cap(s), Oral, Daily ALPRAZolam 1 mg oral tablet 1 mg = 1 tab(s), PRN, Oral, qDay amitriptyline 25 mg oral tablet 25 mg = 1 tab(s), Oral, qHS amLODIPine 5 mg oral tablet 5 mg = 1 tab(s), Oral, qDay atorvastatin 10 mg oral tablet 10 mg = 1 tab(s), Oral, qDay Atrovent HFA 17 mcg/inh inhalation aerosol 2 puff(s), Inhalation, QID baclofen 10 mg oral tablet 5 mg = 0.5 tab(s), PRN, Oral, BID benzonatate 100 mg oral capsule 100 mg = 1 cap(s), PRN, Oral, TID cholecalciferol 125 mcg (5000 intl units) oral capsule 125 mcg = 1 cap(s), Oral, qDay Ciprodex 0.3%-0.1% otic suspension 2 drop(s), PRN, Ear, both, BID citalopram 40 mg oral tablet 40 mg = 1 tab(s), Oral, qDay fluticasone 50 mcg/inh NASAL spray 1 spray(s), PRN, Nostril, each, BID furosemide 20 mg oral tablet 20 mg = 1 tab(s), Oral, qDay lansoprazole 15 mg oral delayed release capsule 15 mg = 1 cap(s), Oral, qDay levothyroxine 200 mcg (0.2 mg) oral tablet 200 mcg = 1 tab(s), Oral, qDay lisinopril 40 mg oral tablet 40 mg = 1 tab(s), Oral, qDay loratadine 10 mg oral capsule 10 mg = 1 cap(s), Oral, qDay Misc Medication See Instructions ondansetron 4 mg oral tablet 4 mg = 1 tab(s), PRN, Oral, q8h Sucraid 8500 intl units/mL oral solution Symbicort 160 mcg-4.5 mcg/inh Inhaler 2 puff(s), Inhalation, BID Wellbutrin XL 150 mg/24 hours oral tablet, extended release 150 mg = 1 tab(s), Oral, q24h Allergies Levaquin Peanuts (itching) amiloride-hydrochlorothiazide (itching) doxycycline meloxicam (swelling, rash, itching) Social History Smoking Status - 09/01/2017 Current every day smoker Alcohol - No Risk, 05/26/2022 Substance Abuse - No Risk, 05/26/2022 Tobacco - No Risk, 05/26/2022 Nicotine Use: 10 or more cigarettes (1/2 pack or more)/day in last 30 days., 02/27/2023 Family History Family history is unknown Immunizations No qualifying data available. Code Status Code Status - Ordered -- 02/28/23 19:23:00 EDT, Full Code, Constant Order Digitally Signed by WASHINGTON INMAN MD on 03/01/2023 01:05 AM Digitally Signed by WASHINGTON INMAN MD on 03/01/2023 01:05 AM Digitally Signed by WASHINGTON INMAN MD on 03/01/2023 01:14 AM Digitally Signed by EDINSON SANCHEZ MD on 03/01/2023 04:30 PM [id number] Note. MICRO - Microbiology PROCEDURE: Culture Respiratory with Gram Stain [^1 *1] SOURCE: Sputum BODY SITE: COLLECTED DATE/TIME: 03/01/2023 01:33 EDT RECEIVED DATE/TIME: 03/01/2023 07:15 EDT START DATE/TIME: 03/01/2023 07:15 EDT FREE TEXT SOURCE: FINAL REPORTS Final Report [] Verified Date/Time/Personnel: 03/01/2023 12:44 EDT Refer to Gram Stain. STAINS GS [] Verified Date/Time/Personnel: 03/01/2023 12:44 EDT Predominance of epithelial cells 1+ mixed nicol including yeast Gram stain indicates oropharyngeal contamination. Repeat specimen needed for culture. Interpretive Data ^1: Culture Respiratory with Gram Stain Requests for Mycoplasma, Legionella, Fungi, Mycobacteria, Chlamydia, and Viruses require ordering of those individual tests. Performing Locations *1: This test was performed at: [facility], [address] [place] [address], [id number]- , [facility] ([place])02-28-2023 History and physical note Date of Service 02/28/2023 Chief Complaint Right-sided chest pain on inspiration x 1 day. History of Present Illness This is a very pleasant 62-year-old female with PMH: COPD not on home O2, TRINI on CPAP, HTN, hypothyroidism, chronic pain, anxiety/depression, HLD, prediabetes, GERD. She presented to [facility] with 1 day history of chest pain, on the right front of her chest, worse with deep inspiration. 5/10 stabbing feeling. Associated with fatigue, cough, nonproductive in nature. She was seen at [facility] and had leukocytosis, with chest x-ray showing right upper lobe infiltrate. CT chest was done that showed consolidation involving the right upper lobe. She was given 1 L of crystalloid fluid, admitted to [facility] medical floors. There she was also found to have acute kidney injury with a creatinine of 3.2, with no known history of chronic kidney disease. Due to persistent hypotension, concern for impending septic shock, she was accepted to transfer from [facility] to [facility] intensive care unit for further observation and management of sepsis secondary to lobar pneumonia. Review of Systems Negative except those mentioned in HPI Physical Exam Vitals and Measurements T: 36.7 C (Oral) TMIN: 36.7 C (Oral) TMAX: 37.2 C (Oral) HR: 89(Monitored) RR: 19 BP: 125/67 SpO2: 92% HT: 165.1 cm WT: 126.5 kg BMI: 46.41 Weight Dosing Weight: 126.5 kg (02/28/23) General Appearance: Appears to be stable and in no acute distress. Obese. On NC. Head: Atraumatic and normocephalic EENT: EOMI, no conjunctival injection. sclera anicteric. Neck: No thyromegaly, no cervical lymphadenopathy Abdominal: Soft,nontender, Bowel sounds present x4 quadrants Cardiac: S1 and S2 normal. RRR. No murmurs, rubs, or gallops. Lungs: Coarse breath sounds R>L Extremities: Trace edema b/l Neurological: CN II through XII grossly intact. Psych: Mood stable Lab Results 02/28 20:25 WBC: 23.8 H Hgb: 12.4 Hct: 37.0 Platelet: 176 Glucose Level: 126 H Sodium Level: 133 L Potassium Level: 3.9 BUN: 24.0 H Creatinine Lvl (s): 1.27 H Assessment/Plan #Acute Hypoxic Respiratory Failure 2/2 RUL Pneumonia #Sepsis secondary to right upper lobe pneumonia #Acute kidney injury, likely prerenal #History of TRINI on CPAP #History of prediabetes #History of hypertension #History of hypothyroidism #History of COPD #DVT prophylaxis #Full CODE STATUS Plan: Initial showing highly collapsible IVC, will challenge with IV fluid 1 L bolus and maintenance at 125 cc/h. -Re examine fluid status w/ POCUS / Clinical exam Treatments for community-acquired pneumonia ceftriaxone, azithromycin, check mycoplasma, Legionella. Daily CBC, BMP and magnesium with goal potassium greater than 4 and magnesium greater than 2 for cardiac optimization CCM glycemic for hyperglycemia -Resume home CPAP We will resume home medications as tolerated such as levothyroxine/ psychiatric medications DVT prophylaxis with heparin subcutaneous Full CODE STATUS Problem List/Past Medical History Ongoing Anxiety attack HTN (hypertension) Hypotension Sepsis Historical No qualifying data Procedure/Surgical History None Medications Home Medications (23) Active albuterol 2.5 mg/3 mL (0.083%) inhalation solution 2.5 mg = 3 mL, PRN, Inhalation, q6h Align 4 mg oral capsule 4 mg = 1 cap(s), Oral, Daily ALPRAZolam 1 mg oral tablet 1 mg = 1 tab(s), PRN, Oral, qDay amitriptyline 25 mg oral tablet 25 mg = 1 tab(s), Oral, qHS amLODIPine 5 mg oral tablet 5 mg = 1 tab(s), Oral, qDay atorvastatin 10 mg oral tablet 10 mg = 1 tab(s), Oral, qDay Atrovent HFA 17 mcg/inh inhalation aerosol 2 puff(s), Inhalation, QID baclofen 10 mg oral tablet 5 mg = 0.5 tab(s), PRN, Oral, BID benzonatate 100 mg oral capsule 100 mg = 1 cap(s), PRN, Oral, TID cholecalciferol 125 mcg (5000 intl units) oral capsule 125 mcg = 1 cap(s), Oral, qDay Ciprodex 0.3%-0.1% otic suspension 2 drop(s), PRN, Ear, both, BID citalopram 40 mg oral tablet 40 mg = 1 tab(s), Oral, qDay fluticasone 50 mcg/inh NASAL spray 1 spray(s), PRN, Nostril, each, BID furosemide 20 mg oral tablet 20 mg = 1 tab(s), Oral, qDay lansoprazole 15 mg oral delayed release capsule 15 mg = 1 cap(s), Oral, qDay levothyroxine 200 mcg (0.2 mg) oral tablet 200 mcg = 1 tab(s), Oral, qDay lisinopril 40 mg oral tablet 40 mg = 1 tab(s), Oral, qDay loratadine 10 mg oral capsule 10 mg = 1 cap(s), Oral, qDay Misc Medication See Instructions ondansetron 4 mg oral tablet 4 mg = 1 tab(s), PRN, Oral, q8h Sucraid 8500 intl units/mL oral solution Symbicort 160 mcg-4.5 mcg/inh Inhaler 2 puff(s), Inhalation, BID Wellbutrin XL 150 mg/24 hours oral tablet, extended release 150 mg = 1 tab(s), Oral, q24h Allergies Levaquin Peanuts (itching) amiloride-hydrochlorothiazide (itching) doxycycline meloxicam (swelling, rash, itching) Social History Smoking Status - 09/01/2017 Current every day smoker Alcohol - No Risk, 05/26/2022 Substance Abuse - No Risk, 05/26/2022 Tobacco - No Risk, 05/26/2022 Nicotine Use: 10 or more cigarettes (1/2 pack or more)/day in last 30 days., 02/27/2023 Family History Family history is unknown Immunizations No qualifying data available. Code Status Code Status - Ordered -- 02/28/23 19:23:00 EDT, Full Code, Constant Order Digitally Signed by WASHINGTON INMAN MD on 03/01/2023 01:05 AM Digitally Signed by WASHINGTON INMAN MD on 03/01/2023 01:05 AM Digitally Signed by WASHINGTON INMAN MD on 03/01/2023 01:14 AM Digitally Signed by EDINSON SANCHEZ MD on 03/01/2023 04:30 PM [id number] Note. MICRO - Microbiology PROCEDURE: Legionella Urine Ag [*1] SOURCE: Urine BODY SITE: COLLECTED DATE/TIME: 02/28/2023 20:18 EDT RECEIVED DATE/TIME: 02/28/2023 20:26 EDT START DATE/TIME: 02/28/2023 20:26 EDT FREE TEXT SOURCE: FINAL REPORTS Final Report [] Verified Date/Time/Personnel: 02/28/2023 20:51 EDT Presumptive negative for L. pneumophila serogroup 1 antigen in urine, suggesting no recent or current infection. Legionnaire's disease cannot be ruled out since other serogroups and species may also cause disease. Performing Locations *1: This test was performed at: [address], [facility]- , [facility] ([place])02-28-2023 Note. MICRO - Microbiology PROCEDURE: Streptococcus Pneumoniae Urine Antig [^1 *1] SOURCE: Urine, Clean Catch BODY SITE: COLLECTED DATE/TIME: 02/28/2023 20:18 EDT RECEIVED DATE/TIME: 02/28/2023 20:26 EDT START DATE/TIME: 02/28/2023 20:26 EDT FREE TEXT SOURCE: FINAL REPORTS Final Report [] Verified Date/Time/Personnel: 02/28/2023 20:51 EDT Presumptive negative for pneumococcal pneumonia, suggesting no current or recent pneumococcal infection. Infection due to Strep pneumoniae cannot be ruled out since the antigen present in the sample may be below the detection limit of the test. Interpretive Data ^1: Streptococcus Pneumoniae Urine Antig This test has not been evaluated on patients taking antibiotics for greater than 24 hours or on patients who have recently completed an antibiotic regimen. The accuracy of this test has not been proven in young children. Performing Locations *1: This test was performed at: [address], [id number]- , [facility] ([place])02-28-2023 Nurse Discharge summary Transferred to [facility]. Transported by Merged with [facility]. Left at 1745. [facility]09-15-2023 Note. MICRO - Microbiology PROCEDURE: Urine Culture [*1] SOURCE: Urine BODY SITE: COLLECTED DATE/TIME: 02/27/2023 05:34 EDT RECEIVED DATE/TIME: 02/27/2023 14:22 EDT START DATE/TIME: 02/27/2023 14:22 EDT FREE TEXT SOURCE: FINAL REPORTS Final Report [] Verified Date/Time/Personnel: 02/28/2023 14:25 EDT 10,000 - 50,000 cfu/ml Multiple bacterial morphotypes present. Probable Contamination. Suggest recollection if clinically indicated. Performing Locations *1: This test was performed at: [facility], [address] [place] [address], [id number]- , [facility] ([place]02-28-2023 Evaluation + Plan noteExtracted from: Title:History and Physical Author:WASHINGTON INMAN MD Date:02/28/23 #Acute Hypoxic Respiratory F ailure 2/2 RUL Pneumonia #Sepsis secondary to right upper lobe pneumonia #Acute kidney injury, likely prerenal #History of TRINI on CPAP #History of prediabetes #History of hypertension #History of hypothyroidism #History of COPD #DVT prophylaxis #Full CODE STATUS Plan: Initial showing highly collapsible IVC, will challenge with IV fluid 1 L bolus and maintenance at 125 cc/h. -Re examine fluid status w/ POCUS / Clinical exam Treatments for community-acquired pneumonia ceftriaxone, azithromycin, check mycoplasma, Legionella. Daily CBC, BMP and magnesium with goal potassium greater than 4 and magnesium greater than 2 for cardiac optimization CCM glycemic for hyperglycemia -Resume home CPAP We will resume home medications as tolerated such as levothyroxine/ psychiatric medications DVT prophylaxis with heparin subcutaneous Full CODE STATUS Addendum by EDINSON SANCHEZ MD on March 01, 2023 17:51:49 EDT Patient seen and examined discussed housestaff History and physical examination reviewed History present illness, past medical history, social history, review of systems, and medications reviewed. Physical examination performed. This patient is 62 years old. She was transferred to [facility] from [facility] for pneumonia and hypotension. The patient has a past medical history of COPD and hypothyroidism and obstructive sleep apnea. She is compliant with CPAP. She also has history of hypertension. She presented to [facility] with right-sided pleuritic chest pain starting 2 to 3 days prior to admission. She was noted to have a large right upper lobe pneumonia. She was hypotensive and was resuscitated and admitted to the hospital. However, yesterday the patient was noted to have more shortness of breath and was started on BPAP. In addition, she was noted to have more hypotension and there was concern about worsening hemodynamics and therefore, the patient was transferred to [facility]. She was noted to have respirophasic changes on IVC interrogation and therefore, further fluids were given with no requirements for pressors. This morning, the patient is feeling better although she continues to have some chest discomfort. Continues to be on nasal oxygen at 3 L/min. Lungs are clear to auscultation on the left side with minimal anterior crackles on the right side. No leg swelling. Morbidly obese. Chest x-ray and a CAT scan of the chest confirmed the presence of a dense right upper lobe infiltrate Impression: 1. Right upper lobe community-acquired pneumonia 2. Transient hypotension secondary to sepsis and hypovolemia, resolved with fluid resuscitation 3. Underlying history of COPD without acute exacerbation 4. History of obstructive sleep apnea. Usually compliant with CPAP 5. History of hypertension and hypothyroidism and obesity Plan: 1. The patient is admitted to the intensive care unit 2. Rocephin 2 g/day given x2 days already. 3. May change to Augmentin 870 mg twice daily in a.m. if stable 4. Continue nasal oxygen 5. Advance diet and get out of bed 6. Continue DVT prophylaxis 7. Back on Wellbutrin and escitalopram and DuoNeb The patient today is stable to be transferred to the floor. Will be followed by the pulmonary service. Edinson Sanchez MD [facility] 09-15-2023 Note* Exam Date Time Procedure Performing Provider Status 02/28/23 1:22 PM Echocardiogram, Adult ([facility]) Auth (Verified) [facility] 09-15-2023 Note ORIGINAL EXAMINATION: CT OF THE CHEST WITHOUT CONTRAST 02/28/2023 12:20 pm TECHNIQUE: CT of the chest was performed without the administration of intravenous contrast. Multiplanar reformatted images are provided for review. Automated exposure control, iterative reconstruction, and/or weight based adjustment of the mA/kV was utilized to reduce the radiation dose to as low as reasonably achievable. COMPARISON: Chest x-ray February 28, 2023 HISTORY: ORDERING SYSTEM PROVIDED HISTORY: Reason for Exam: Pt reports SOB, fever x2-3 days. concern for absess FINDINGS: Minor degenerative changes are noted in the spine. No other osseous abnormality is identified. Trace bilateral pleural effusions are noted. Minimal adjacent atelectasis is present at the lower lobes. Very prominent consolidation is evident at the mid to inferior right upper lobe, with multiple air bronchograms as well. Above this area there are very small scattered areas of ground-glass density. These are also evident more inferiorly. No other dense consolidation is visible. Small calcified mediastinal lymph nodes and right hilar lymph nodes are evident. No noncalcified adenopathy within the constraints of a noncontrast exam. Small sliding hiatal hernia. No additional contributory finding. IMPRESSION: Very prominent consolidative pneumonia within the right upper lobe with much smaller adjacent areas of infiltrate as well. Follow-up to resolution recommended to exclude non inflammatory etiologies. Trace bilateral pleural effusions with small areas of adjacent lower lobe atelectasis. Interpreted by: Lowell Bundy MD Preliminary Report By: Lowell Bundy MD Electronically signed By Lowell Bundy MD Dictated Date: 02/28/2023 12:27:35 PM Prelim Date: 02/28/2023 12:30:25 PM Sign Date: 02/28/2023 12:30:25 PM Ordering Provider: [facility]09-15-2023 Note ORIGINAL EXAMINATION: LIMITED RETROPERITONEAL ULTRASOUND02/28/2023 9:26 am COMPARISON: None HISTORY: ORDERING SYSTEM PROVIDED HISTORY: Reason for Exam: SAMINA worsening FINDINGS: Limited evaluation secondary to patient body habitus and respiratory motion. The urinary bladder was reportedly emptied prior to ultrasound exam. Postvoid volume of approximately 41 mL. The right and left kidneys measure 12.9 x 5.5 x 4.7 cm and 13.0 x 5.3 x 5.3 cm respectively. Portions of the left kidney are suboptimally visualized. Normal parenchymal thickness and echogenicity. No evidence of obstruction. IMPRESSION: Suboptimal evaluation as above. Within the limitations, no acute findings or evidence of obstruction. I have personally reviewed the images of this examination and agree with the resident's findings and interpretation. Interpreted by: Huan Castorena MD Preliminary Report By: Majo Plummer Electronically signed By Huan Castorena MD Dictated Date: 02/28/2023 10:28:17 AM Prelim Date: 02/28/2023 4:49:14 PM Sign Date: 02/28/2023 4:49:14 PM Ordering Provider: [facility]09-15-2023 HCoV 229E RNA TAMMY+non-probe Ql (Nph)Not Detected *NA* (02/28/23 8:10 AM)AH Auto Viro/Sero [id number] Note ORIGINAL EXAMINATION: TWO XRAY VIEWS OF THE CHEST 02/28/2023 5:20 am COMPARISON: 02/27/2023. HISTORY: ORDERING SYSTEM PROVIDED HISTORY: Reason for Exam: PNA FINDINGS: Heart size is stable. No pneumothorax. No definite large effusion. Consolidation is noted in the right mid lung which has progressed from the prior exam. Increased hazy airspace disease at the right lung base. Mild hazy airspace disease at the left lung base. IMPRESSION: Worsened multifocal infiltrates greatest in the right mid lung. Interpreted by: Diana Bowling MD Preliminary Report By: Diana Bowling MD Electronically signed By Diana Bowling MD Dictated Date: 02/28/2023 7:08:52 AM Prelim Date: 02/28/2023 7:09:31 AM Sign Date: 02/28/2023 7:09:31 AM Ordering Provider: [place] [id number] Note . MICRO - Microbiology PROCEDURE: Streptococcus Pneumoniae Urine Antig [^1 *1] SOURCE: Urine BODY SITE: COLLECTED DATE/TIME: 02/27/2023 05:34 EDT RECEIVED DATE/TIME: 02/27/2023 14:24 EDT START DATE/TIME: 02/27/2023 14:24 EDT FREE TEXT SOURCE: FINAL REPORTS Final Report [] Verified Date/Time/Personnel: 02/27/2023 14:42 EDT Presumptive negative for pneumococcal pneumonia, suggesting no current or recent pneumococcal infection. Infection due to Strep pneumoniae cannot be ruled out since the antigen present in the sample may be below the detection limit of the test. Interpretive Data ^1: Streptococcus Pneumoniae Urine Antig This test has not been evaluated on patients taking antibiotics for greater than 24 hours or on patients who have recently completed an antibiotic regimen. The accuracy of this test has not been proven in young children. Performing Locations *1: This test was performed at: [address], [facility] , [facility]02-27-2023 Note. MICRO - Microbiology PROCEDURE: Legionella Urine Ag [*1] SOURCE: Urine BODY SITE: COLLECTED DATE/TIME: 02/27/2023 05:34 EDT RECEIVED DATE/TIME: 02/27/2023 14:24 EDT START DATE/TIME: 02/27/2023 14:24 EDT FREE TEXT SOURCE: FINAL REPORTS Final Report [] Verified Date/Time/Personnel: 02/27/2023 14:41 EDT Presumptive negative for L. pneumophila serogroup 1 antigen in urine, suggesting no recent or current infection. Legionnaire's disease cannot be ruled out since other serogroups and species may also cause disease. Performing Locations *1: This test was performed at: [address], [facility] , [facility]02-27-2023 Note Smoking Cessation Consult Entered On: 02/27/2023 14:35 EDT Performed On: 02/27/2023 14:27 EDT by JESUS KRISHNAN Cessation Attempt to Quit Smoking in Past : No Practical Counseling : Recognize danger situations, Develop coping skillls Interventions Willing to Quit Smoking : Counseling provided, Supplementary materials provided, Other: Invited to Quit & Win JESUS KRISHNAN RT - 02/27/2023 14:27 EDT Social History Social History (As Of: 02/27/2023 14:35:56 EDT) Tobacco: No Risk Nicotine Use: 10 or more cigarettes (1/2 pack or more)/day in last 30 days. (Last Updated: 02/27/2023 03:47:55 EDT by Sheela Goins RN) Alcohol: No Risk (Last Updated: 05/26/2022 16:34:27 EST by Pop Martinez RN ) Substance Abuse: No Risk (Last Updated: 05/26/2022 16:34:29 EST by Pop Martinez RN ) Are You Ready To Quit Smoking I Want To Quit For Personal Reasons : Completely Agree Specific Plan/Quit Smoking : Neutral New Ways Help Stop Smoking : Completely Agree Worry A Lot About Smoking : Completely Agree Tired of Being A Prisoner To Cigarettes : Completely Agree After Awake/Smoke First Cigarette : Within 31-60 minutes Difficult Not To Smoke When Forbidden : No Cigarette Most Satisfying/Day : All others Cigarettes/Day : 11-20 Cigarettes Smoke More In A.M./Rest Of Day : No Smoke When Sick/Stay In Bed : No JESUS KRISHNAN RT - 02/27/2023 14:27 EDT Education Smoking Education Grid Topic : Advice given to stop smoking Risks/Benefits of smoking cessation Smoking cessation programs Individuals Taught : Patient Patient Patient Barriers to Learning : None evident None evident None evident Learning Readiness : Willing to learn Willing to learn Willing to learn Teaching Method : Explanation, Printed materials Explanation, Printed materials Explanation, Printed materials Teaching Evaluation : No further teaching needed No further teaching needed No further teaching needed Education Referral Made To : Respiratory Therapy Respiratory Therapy Respiratory Therapy JESUS KRISHNAN RT - 02/27/2023 14:27 EDT JESUS KRISHNAN RT - 02/27/2023 14:27 EDT JESUS KRISHNAN RT - 02/27/2023 14:27 EDT Discharge Planning-Smoking Cessation Which Following Interventions : Smoking Cessation Counseling Discharge Smoking Cessation Plan : Yes Referral Made Local Smoking Hotline : Yes Time Spent wih Patient-SC : Between 3-10 minutes JESUS KRISHNAN RT - 02/27/2023 14:27 EDT [facility]09-14-2023 Note Date of Service 02/27/2023 Chief Complaint chest pain/nausea History of Present Illness 62-year-old female with past medical history significant for COPD, HTN, hypothyroidism, Anxiety/depression, HLD, prediabetes, GERD. Patient presented to [facility] emergency department on 02/27/2023 with a 1 day history of fevers, chills, body aches, nausea, vomiting. In the emergency department she was afebrile, hemodynamically stable. Oxygen saturation 90% on room air. White blood cell count 22,002% bands. Creatinine 1.39. Lactic acid was 1.8 troponin 7.2. X-ray chest shows right upper lobe airspace opacity, most likely pneumonia. Urinalysis positive for nitrates and 1+ bacteria. COVID/flu/RSV negative. She was givenceftriaxone and azithromycin and subsequently admitted. White blood cell count unchanged this morning. D-dimer 408. CRP 11.3. TSH 1.43. She did require O2 via nasal cannula at 2 L. She has been afebrile. Blood pressure on the lower end of normal. Denies any lightheadedness or dizziness. No fever or chills today. Denies any headaches or dizziness. Admitscough, dyspnea, sputum production. No nausea or vomiting. Review of Systems See HPI for specific ROS. All other systems reviewed and negative. Physical Exam Vitals and Measurements T: 36.9 C (Oral) TMIN: 36.9 C (Oral) TMAX: 37 C (Oral) HR: 78(Apical) RR: 22 BP: 120/72 SpO2: 92% HT: 165.1 cm WT: 139.9 kg BMI: 51.32 Weight Dosing Weight: 139.9 kg (02/27/23) Dosing Weight: 131.8 kg (02/27/23) GEN: Appears chronically ill EYES: No conjunctival erythema, drainage. EOMI EARS: Hearing grossly intact. NOSE: No nasal discharge. THROAT: Oral cavity and pharynx pink and moist. CHEST: Normal S1 and S2. Rhythm is regular. fine crackles and exp wheezing throughout ABD: Positive bowel sounds x 4 quads. Soft,obese, nondistended, nontender. EXT: No significant deformity or joint abnormality. No edema. Peripheral pulses intact. NEURO: Sensation grossly intact SKIN: Skin color normal PSYCH: The mental examination revealed the patient was alert and oriented x 4 Lab Results 02/27 05:19 WBC: 22.2 H Hgb: 13.1 Hct: 38.9 Platelet: 176 Neutrophil %: 84.7 H Glucose Level: 100 Sodium Level: 136 Potassium Level: 4.0 BUN: 16 Creatinine Lvl (s): 1.57 H 02/27 00:56 WBC: 22.3 H Hgb: 14.4 Hct: 42.3 Platelet: 186 Glucose Level: 109 Sodium Level: 136 Potassium Level: 4.2 BUN: 16 Creatinine Lvl (s): 1.39 H Imaging Results and Diagnostics XR Chest 1 View Result Date: February 27, 2023 Verified By: DIANA BOWLING MD CLINICAL STATEMENT: IMPRESSION: Right upper lobe airspace opacity, most likely pneumonia. Short- terminterval chest x-ray follow-up is recommended to determine resolution andexclude an underlying lesion. This is a preliminary report created by a resident Assessment/Plan 1. Pneumonia 2. COPD with respiratory failure, acute 3. HTN (hypertension) 4. Depression with anxiety 5. SAMINA (acute kidney injury) Pneumonia ceftriaxone and azithromycin. Inhaled bronchodilators. Add Acapella device. Incentive spirometer every hour. She demonstrated adequate use. Check for atypicals. COVID/flu/RSV negative. Patient does have a cough that is productive of thick white/yellow sputum. White blood cell count elevated to 22,000. No lactic acidosis. No fever. Repeat chest x-ray two-view tomorrow. COPD with acute respiratory failure continue inhaled bronchodilators scheduled and as needed. Keep oxygen saturations 92% or above. Attempt to wean off of supplemental oxygen. Patient does not use this at home. I do suspect that she may have some sleep apnea. HTN- SBP goal 140 or less. Continue amlodipine, hold lisinopril. Blood pressure is on the lower side. Depression with anxiety continue home medications Acute kidney injury baseline creat 0.84, GFR 79 01/2023. Hold lisinopril. Patient's renal function Worsened after receiving fluids. She did receive 3 L of fluid in the emergency department. Repeat BMPin the morning Hypomagnesemia magnesium sulfate 6 g IV. Repeat magnesium level tomorrow. DVT prophylaxis: SCDs Labs, diagnostics, and progress notes reviewed as noted in HPI Code Status: Full code Plan of care discussed with patient. All questions answered. Patient verbalizes understanding is agreeable to plan of care. This dictation was performed using voice recognition software and may include grammatical and/or spelling errors. Problem List/Past Medical History Ongoing Anxiety attack HTN (hypertension) Historical No qualifying data Procedure/Surgical History None Medications Home Medications (23) Active albuterol 2.5 mg/3 mL (0.083%) inhalation solution 2.5 mg = 3 mL, PRN, Inhalation, q6h Align 4 mg oral capsule 4 mg = 1 cap(s), Oral, Daily ALPRAZolam 1 mg oral tablet 1 mg = 1 tab(s), PRN, Oral, qDay amitriptyline 25 mg oral tablet 25 mg = 1 tab(s), Oral, qHS amLODIPine 5 mg oral tablet 5 mg = 1 tab(s), Oral, qDay atorvastatin 10 mg oral tablet 10 mg = 1 tab(s), Oral, qDay Atrovent HFA 17 mcg/inh inhalation aerosol 2 puff(s), Inhalation, QID baclofen 10 mg oral tablet 5 mg = 0.5 tab(s), PRN, Oral, BID benzonatate 100 mg oral capsule 100 mg = 1 cap(s), PRN, Oral, TID cholecalciferol 125 mcg (5000 intl units) oral capsule 125 mcg = 1 cap(s), Oral, qDay Ciprodex 0.3%-0.1% otic suspension 2 drop(s), PRN, Ear, both, BID citalopram 40 mg oral tablet 40 mg = 1 tab(s), Oral, qDay fluticasone 50 mcg/inh NASAL spray 1 spray(s), PRN, Nostril, each, BID furosemide 20 mg oral tablet 20 mg = 1 tab(s), Oral, qDay lansoprazole 15 mg oral delayed release capsule 15 mg = 1 cap(s), Oral, qDay levothyroxine 200 mcg (0.2 mg) oral tablet 200 mcg = 1 tab(s), Oral, qDay lisinopril 40 mg oral tablet 40 mg = 1 tab(s), Oral, qDay loratadine 10 mg oral capsule 10 mg = 1 cap(s), Oral, qDay Misc Medication See Instructions ondansetron 4 mg oral tablet 4 mg = 1 tab(s), PRN, Oral, q8h Sucraid 8500 intl units/mL oral solution Symbicort 160 mcg-4.5 mcg/inh Inhaler 2 puff(s), Inhalation, BID Wellbutrin XL 150 mg/24 hours oral tablet, extended release 150 mg = 1 tab(s), Oral, q24h Allergies Levaquin Social History Smoking Status - 09/01/2017 Current every day smoker Alcohol - No Risk, 05/26/2022 Substance Abuse - No Risk, 05/26/2022 Tobacco - No Risk, 05/26/2022 Nicotine Use: 10 or more cigarettes (1/2 pack or more)/day in last 30 days., 02/27/2023 Family History Family history is unknown Immunizations No qualifying data available. Code Status Code Status - Ordered -- 02/27/23 3:01:00 EDT, Full Code, Constant Order Digitally Signed by DONY WANG on 02/27/2023 02:00 PM Digitally Signed by DONY WANG on 02/28/2023 11:13 AM [facility]09-14-2023 Evaluation + Plan noteExtracted from: Title:History and Physical Author:DONY WANG Date:02/27/23 1. Pneumonia 2. COPD with respiratory failure, acute 3. HTN (hypertension) 4. Depression with anxiety 5. SAMINA (acute kidney injury) Pneumonia ceftriaxone and azithromycin. Inhaled bronchodilators. Add Acapella device. Incentive spirometer every hour. She demonstrated adequate use. Check for atypicals. COVID/flu/RSV negative. Patient does have a cough that is productive of thick white/yellow sputum. White blood cell count elevated to 22,000. No lactic acidosis. No fever. Repeat chest x-ray two-view tomorrow. COPD with acute respiratory failure continue inhaled bronchodilators scheduled and as needed. Keep oxygen saturations 92% or above. Attempt to wean off of supplemental oxygen. Patient does not use this at home. I do suspect that she may have some sleep apnea. HTN- SBP goal 140 or less. Continue amlodipine, hold lisinopril. Blood pressure is on the lower side. Depression with anxiety continue home medications Acute kidney injury baseline creat 0.84, GFR 79 01/2023. Hold lisinopril. Patient's renal function Worsened after receiving fluids. She did receive 3 L of fluid in the emergency department. Repeat BMP in the morning Hypomagnesemia magnesium sulfate 6 g IV. Repeat magnesium level tomorrow. DVT prophylaxis: SCDs Labs, diagnostics, and progress notes reviewed as noted in HPI Code Status: Full code Plan of care discussed with patient. All questions answered. Patient verbalizes understanding is agreeable to plan of care. This dictation was performed using voice recognition software and may include grammatical and/or spelling errors. [facility] 09-14-2023 Hospital Discharge instructions Follow Up Care 02/27/2023 00:09:32 With:DELORIS CHAVEZ Address: [address] [place] [phone] When:03/06/2023 14:40:00 Comments:This is your post-hospital follow-up appointment. It is with PRABHA Simmons. [facility] 09-14-2023 Note ORIGINAL EXAMINATION: ONE XRAY VIEW OF THE CHEST 02/27/2023 1:30 am COMPARISON: Chest x-ray 05/26/2022 HISTORY: ORDERING SYSTEM PROVIDED HISTORY: Reason for Exam: Chest pain, low oxygen FINDINGS: Cardiomediastinal silhouette is stable. There is a round airspace opacity in the right upper lobe. Left midlung atelectasis. No large pleural effusion or pneumothorax. No vascular congestion. No acute osseous abnormality. IMPRESSION: Right upper lobe airspace opacity, most likely pneumonia. Short-term interval chest x-ray follow-up is recommended to determine resolution and exclude an underlying lesion. This is a preliminary report created by a resident Interpreted by: Diana Bowling MD Preliminary Report By: Enrique Garcia Electronically signed By Diana Bowling MD Dictated Date: 02/27/2023 1:34:31 AM Prelim Date: 02/27/2023 1:38:03 AM Sign Date: 02/27/2023 2:21:34 AM [facility]ing [facility] Sinus rhythm Incomplete right bundle branch block Low voltage, precordial leads Abnormal T, consider ischemia, lateral leads Electronic Signature: EUSEBIO RUST DO 02/27/2023 01:09:01[facility] 09-14-2023 SARS-CoV-2 (COVID-19) RNA TAMMY+probe Ql (Nph) Negative *NA* (02/27/23 12:56 AM)AO Auto Urine [id number] Miscellaneous Notes* Telephone Encounter - Dony Araujo MA - 02/19/2023 8:10 AM EDT Immunization record received from Joseph Santoyo. Updated in chart. Dony Araujo MA documented in this encounterSt. [facility] Miscellaneous Notes* Telephone Encounter - Jose Summers LPN - 02/10/2023 10:13 AM EDT Patient phones requesting refills as follows: Requested Prescriptions Pending Prescriptions Disp Refills buPROPion XL (WELLBUTRIN XL) 150 mg 24 hr tablet 30 tablet 11 Sig: Take 1 tablet by mouth once daily. SABA 01/15/23 NOV 02/12/23 Please review and advise. Jose Summers LPN documented in this encounterSt. [facility]08-26-2023 Miscellaneous Notes* Telephone Encounter - Shirlene Abreu LPN - 02/08/2023 8:47 AM EDT Phoned patient and went over results, notes below from Deloris Chavez [employer]RE[employer] OFFICER with understanding. Patient said she uses [employer] in [place] phone number is [phone]. * Telephone Encounter - Deloris Chavez APRN.KHURRAM - 02/07/2023 5:08 PM EDT Can please let patient know that I received her sleep study results. It looks like her setting may need adjusted. What DME company does she use? Can we then please check with DME company to see if we just need to send over the new orders with the adjustments? documented in this encounterSt. [facility]08-25-2023 Miscellaneous Notes* Telephone Encounter - Jose Summers LPN - 02/07/2023 4:31 PM EDT Faxed. Jose Summers LPN * Telephone Encounter - Deloris Chavez APRN.CNP - 02/07/2023 4:27 PM EDT Form complete. Deloris Chavez APRN.KHURRAM * Telephone Encounter - Jose Summers LPN - 02/05/2023 11:01 AM EDT Type of form: Medical Necessity Form received via fax When form is completed, Fax form to [phone] Form has been forwarded to Nurse Practictioner: KHURRAM Freedman LPN documented in this encounterSt. [facility]08-[facility]-2023 Miscellaneous Notes* Telephone Encounter - Jose Summers LPN - 02/03/2023 8:56 AM EDT Patient phones requesting refills as follows: Requested Prescriptions Pending Prescriptions Disp Refills ALPRAZolam (XANAX) 1 mg tablet 30 tablet 0 Sig: Take 1 tablet by mouth once daily as needed for anxiety for up to 30 days. SABA 01/15/23 NOV 02/12/23 Please review and advise. Jose Summers LPN documented in this encounterSt. [facility]08-09-2023 Miscellaneous Notes* Telephone Encounter - Jose Summers LPN - 01/22/2023 11:30 AM EDT Pharmacy requesting 90 day supply of lipitor. Rx pending. Please review and advise. Jose Summers LPN documented in this encounterSt. [facility]07-31-2023 Miscellaneous Notes* Telephone Encounter - Yuliet Syed OCCA - 01/13/2023 8:52 AM EDT Patient has been identified by name and date of : Yes Patient phones for refill(s): Requested Prescriptions Pending Prescriptions Disp Refills levothyroxine (LEVOXYL) 200 mcg tablet 30 tablet 11 Sig: Take 1 tablet by mouth once daily. Take on empty stomach. For thyroid Date of last office visit in primary care: [facility] 11/08/22 NOV not scheduled Last 2 Encounter Wt Readings: Date: Wt: 09/02/2022 132.5 kg (292 lb) 08/27/2022 127 kg (280 lb) Please advise. Thank you. KOFI Chong documented in this encounterSt. [facility]07-14-2023 Miscellaneous Notes* Telephone Encounter - Ramona Nelson LPN - 12/27/2022 9:37 AM EDT Patient phones requesting refills as follows: Requested Prescriptions Pending Prescriptions Disp Refills ALPRAZolam (XANAX) 1 mg tablet 30 tablet 0 Sig: Take 1 tablet by mouth once daily as needed for anxiety for up to 30 days. SABA-11/08/22 Labs-09/06/22 NOV-none Please review and advise. Ramona Nelson LPN documented in this encounterSt. Mary'[facility]06-23-2023 Miscellaneous Notes* Telephone Encounter - Bud Shine Ma - 12/06/2022 3:39 PM EDT Nurse was notified if needed faxed to [facility] * Telephone Encounter - Deloris Chavez APRN.KHURRAM - 12/04/2022 5:10 PM EDT Please fax script for walker to [facility]. Pt notified via mychart. Deloris Chavez APRN.KHURRAM documented in this encounterSt. [facility]06-14-2023 Miscellaneous Notes* Telephone Encounter - Jose Summers LPN - 11/27/2022 3:36 PM EDT I don't recall ever receiving form from [employer] regarding hearing aides. Phoned pt, she states she has been without hearing aides since Jul d/t her dog ate them. She states she saw ENT (Dr. Green) and had received order from ENT for hearing aides. Advised pt to contact ENT regarding the order to get new hearing aides. She will contact Dr. Green office. * Telephone Encounter - Keren Mackey LPN - 11/27/2022 2:25 PM EDT Karrie with [facility] calling for pt. They received a call from [employer] where form was sent back to them for hearing aides. There is a missing signature. Please review what was sent, sign and return. There phone number to clarify exactly what is missing is [phone]. Keren Mackey LPN documented in this encounterSt. Mary'[facility]04-27-2023 History of Present illness Narrative* Mary Booth, [employer] - 10/10/2022 11:10 AM EDT Radiology Service Progress Note PATIENT NAME: Santy Raza DATE OF SERVICE: October 10, 2022 TIME: 10:37 AM PATIENT IDENTITY VERIFICATION COMPLETED USING TWO (2) IDENTIFIERS: Name and Date of confirmedby patient verbally. FALL SCREENING: Has the patient had 2 falls in the last year or 1 fall with injury or currently using an Ambulatory Assistive Device (Walker, Cane, Wheelchair, Crutches, etc.)? No PATIENT GENDER DATA: Female. status: : No status: NO. PATIENT RELEVANT IMPLANT DATA REVIEWED: Not Applicable RADIOLOGY DEPARTMENT: Mammography PERIPHERAL IV DATA: Not applicable SIGNED BY: Mary Booth [employer] October 10, 2022 10:37 AM documented in this encounterSt. Mary'[facility]04-19-2023 Miscellaneous Notes* Telephone Encounter - Ramona Nelson LPN - 10/02/2022 8:56 AM EDT Patient phones requesting refills as follows: Requested Prescriptions Pending Prescriptions Disp Refills ALPRAZolam (XANAX) 1 mg tablet 30 tablet 0 Sig: Take 1 tablet by mouth once daily as needed for anxiety for up to 30 days. SABA-09/02/22 Labs-09/06/22 NOV-none med filled 08/30/22 Please review and advise. Ramona Nelson LPN documented in this encounterSt. Mary'[facility]04-17-2023 Miscellaneous Notes* Telephone Encounter - Jose Summers LPN - 09/30/2022 9:35 AM EDT Patient phones requesting refills as follows: Requested Prescriptions Pending Prescriptions Disp Refills citalopram (CELEXA) 40 mg tablet 30 tablet 5 Sig: Take 1 tablet by mouth once daily. Please review and advise. Jose Summers LPN documented in this encounterSt. Mary'[facility]04-14-2023 History of Present illness Narrative* Murray Guadarrama MD - 09/27/2022 2:28 PM EDT PROGRESS NOTES PATIENT NAME: Santy Raza Assessment ASSESSMENT AND PLAN The patient is a 61-year-old female status post a ventral hernia repair with mesh. She is doing well postoperatively. Follow-up can be as needed. I recommend that she continue to refrain from heavy lifting for another month or so. Follow-up will be as needed. She may certainly call if any questionsor problems arise. SUBJECTIVE CHIEF COMPLAINT: Patient presents with: Post Op Follow Up: 09/05 diagnostic laparoscopy and ventral hernia repair INTERVAL HISTORY OF PRESENT ILLNESS: The patient is a 61-year-old female who is being seen today for follow-up after recent ventral hernia repair with mesh. She is doing well postoperatively. She denies any significant issues or problems. HISTORIES: PAST MEDICAL HISTORY Diagnosis Date Allergic rhinitis, cause unspecified BMI 45.0-49.9, adult (HCC) 08/27/2022 Central perforation of tympanic membrane, bilateral Essential hypertension, benign Hypothyroidism 09/26/2015 Mixed conductive and sensorineural hearing loss Obstructive sleep apnea Other anxiety states Perforated tympanic membrane 03/29/2011 S/P repair of ventral hernia 09/06/2022 Snoring Synovitis and tenosynovitis, unspecified Tobacco abuse 03/23/2012 PAST SURGICAL HISTORY Procedure Laterality Date COLONOSCOPY SCRN NOT HIGH RISK 09/13/2020 EGD 10/25/2020 L'SCOPE DX W/WO BRUSHINGS/WASHINGS 09/05/2022 Dr. Guadarrama LIG/TRNSXJ FLP TUBE ABDL/VAG APPR UNI/BI Tubal ligation LX REPAIR RECURRENT VENTRAL HERNIA 09/05/2022 open, w/ mesh. Dr. Guadarrama MYRINGOTOMY ASPIR&/EUSTACHIAN TUBE NFLTJ ANES Myringotomy/tubes NEUROPLASTY &/TRANSPOS MEDIAN NRV CARPAL TUNNE Bilateral 01/15/2019 Bilateral carpal tunnel release REDUCTION OF LARGE BREAST 04/23/2016 STEREOTACT BREAST BX EA LESION PC 09/30/2018 left stereotactic breast biopsy w/vacuum assisted core needle biopsy, specimen radiograph and marker placement ALLERGIES: Doxycycline Monohydrate, Hctz [Amiloride-Hydrochlorothiazide], Levaquin [Levofloxacin], Meloxicam, and Peanuts MEDICATIONS: Current Outpatient Medications Medication Sig Cholecalciferol, Vitamin D3, 125 mcg (5,000 unit) cap Take 1 capsule by mouth once daily. amLODIPine (NORVASC) 5 mg tablet Take 1 tablet by mouth once daily. lisinopril (ZESTRIL) 40 mg tablet Take 1 tablet by mouth once daily. budesonide-formoterol (SYMBICORT) 160-4.5 mcg/actuation inhaler Inhale 2 Puffs as instructed twice daily. furosemide (LASIX) 20 mg tablet Take 1 tablet by mouth once daily. ALPRAZolam (XANAX) 1 mg tablet Take 1 tablet by mouth once daily as needed for anxiety for up to 30days. Ipratropium (ATROVENT HFA) 17 mcg/actuation inhaler Inhale 2 Puffs as instructed every 6 hours. lansoprazole (PREVACID) 15 mg capsule Take 1 capsule by mouth once daily. albuterol (PROVENTIL) 2.5 mg /3 mL (0.083 %) nebulizer solution Use 3 mL via nebulizer every 6 hours as needed for wheezing/shortness of breath. loratadine (CLARITIN) 10 mg tablet Take 1 tablet by mouth once daily. citalopram (CELEXA) 40 mg tablet Take 1 tablet by mouth once daily. fluticasone (FLONASE) 50 mcg/actuation nasal spray Use 2 Sprays in each nostril once daily. Rinse mouth after use. Nebulizer Accessories misc 1 Each as directed. Nebulizer tubing and mouth piece. faxed to levothyroxine (LEVOXYL) 200 mcg tablet Take 1 tablet by mouth once daily. Take on empty stomach. For thyroid buPROPion XL (WELLBUTRIN XL) 150 mg 24 hr tablet Take 1 tablet by mouth once daily. CIPRODEX 0.3-0.1 % otic suspension Use 2 Drops in both ears as needed. 2 drops twice daily as needed. dexAMETHasone (DEXASOL) 0.1 % ophthalmic solution Use 1 Drop in both eyes every 12 hours as needed.Instill 2 drops into affected ear twice daily as needed. ondansetron (ZOFRAN) 4 mg tablet Take 1 tablet by mouth every 8 hours as needed for nausea/vomiting. SUCRAID 8,500 unit/mL soln baclofen (LIORESAL) 10 mg tablet TAKE 1/2 TO 1 TABLET BY MOUTH TWICE A DAY NEEDED FOR SPASMS amitriptyline (ELAVIL) 25 mg tablet Take 1 tablet by mouth daily at bedtime. tegaserod hydrogen maleate 6 mg tablet (ZELNORM) Take 1 tablet (6 mg) by mouth twice daily before meals. Bifidobacterium Infantis (ALIGN) 4 mg cap Take 1 capsule by mouth once daily. CPAP autoCPAP 5-15 cmH2O, mask, tubing, filters, heated humidity, lifetime supplies. Dx: TRINI Nebulizer 1 Each as needed. NEBULIZER TUBING AND SUPPLIES. DX: CHRONIC BRONCHITIS J41.1, WHEEZING R06.2. FAX TO [employer] [phone] COMPOUNDED PRESCRIPTION Nebulizer for albuterol every fours as needed ICD: R06.2 Current Facility-Administered Medications Medication Dose Route Frequency perflutren lipid microspheres 1.3 mL in NaCl (PF) 0.9% 10 mL injection (DEFINITY) INTRAVENOUS DIRECTED PRN sodium chloride 0.9 % (flush) 10 mL (BD POSIFLUSH) 10 mL INTRAVENOUS DIRECTED PRN FAMILY HISTORY Problem Relation Age of Onset No Known Problems Father Coronary Artery Disease Mother PE Asthma Mother Multiple Sclerosis Mother Coronary Artery Disease Brother None Brother Coronary Artery Disease Sister Colon Cancer No Family History Anesthesia Problems No Family History Social History Tobacco Use Smoking status: Every Day Packs/day: 0.50 Types: Cigarettes Start date: 05/29/1987 Smokeless tobacco: Never Vaping Use Vaping Use: Never used Substance Use Topics Alcohol use: No Drug use: No OBJECTIVE PHYSICAL EXAM: [facility] 09/14/2013 GENERAL: Alert, no distress, cooperative ABDOMEN: Abdomen soft, non-tender, BS normal, No masses or organomegaly and incision appears to be healing well. No signs of erythema or infection. DATA: Diagnostic tests reviewed for today's visit: Most recent labs and imaging results. Murray Guadarrama MD documented in this encounterSt[facility] Miscellaneous Notes* Telephone Encounter - Jose Summers LPN - 09/11/2022 4:51 PM EDT Patient phones requesting refills as follows: Requested Prescriptions Pending Prescriptions Disp Refills Cholecalciferol, Vitamin D3, 125 mcg (5,000 unit) cap 30 capsule 11 Sig: Take 1 capsule by mouth once daily. amLODIPine (NORVASC) 5 mg tablet 30 tablet 12 Sig: Take 1 tablet by mouth once daily. SABA 09/02/22 NOV no upcoming appt Please review and advise. Jose Summers LPN documented in this encounterSt. [facility] [facility] History of Present illness Narrative* Murray Guadarrama MD - 09/11/2022 1:26 PM EDT PROGRESS NOTES PATIENT NAME: Santy Raza Assessment ASSESSMENT AND PLAN The patient is a 61-year-old female status post a successful ventral hernia repair with mesh. I have recommended that she follow-up again in about 2 weeks to further reevaluate her progress. I recommend that she continue to refrain from heavy lifting. Again follow-up will be in about 2 weeks. SUBJECTIVE CHIEF COMPLAINT: Patient presents with: Post Op Follow Up: 09/05 ventral hernia repair; diagnostic laparoscopy w/ drain placement INTERVAL HISTORY OF PRESENT ILLNESS: The patient is a 61-year-old female who is being seen today for follow-up after recent ventral hernia repair. She is doing well postoperatively. Her JARAD drain has been putting out less than 25 cc/day for the past several days. Overall she is very pleased with thesurgery results. She denies any issues or problems. HISTORIES: PAST MEDICAL HISTORY Diagnosis Date Allergic rhinitis, cause unspecified BMI 45.0-49.9, adult (HCC) 08/27/2022 Central perforation of tympanic membrane, bilateral Essential hypertension, benign Hypothyroidism 09/26/2015 Mixed conductive and sensorineural hearing loss Obstructive sleep apnea Other anxiety states Perforated tympanic membrane 03/29/2011 S/P repair of ventral hernia 09/06/2022 Snoring Synovitis and tenosynovitis, unspecified Tobacco abuse 03/23/2012 PAST SURGICAL HISTORY Procedure Laterality Date COLONOSCOPY SCRN NOT HIGH RISK 09/13/2020 EGD 10/25/2020 L'SCOPE DX W/WO BRUSHINGS/WASHINGS 09/05/2022 Dr. Guadarrama LIG/TRNSXJ FLP TUBE ABDL/VAG APPR UNI/BI Tubal ligation LX REPAIR RECURRENT VENTRAL HERNIA 09/05/2022 open, w/ mesh. Dr. Guadarrama MYRINGOTOMY ASPIR&/EUSTACHIAN TUBE NFLTJ ANES Myringotomy/tubes NEUROPLASTY &/TRANSPOS MEDIAN NRV CARPAL TUNNE Bilateral 01/15/2019 Bilateral carpal tunnel release REDUCTION OF LARGE BREAST 04/23/2016 STEREOTACT BREAST BX EA LESION PC 09/30/2018 left stereotactic breast biopsy w/vacuum assisted core needle biopsy, specimen radiograph and marker placement ALLERGIES: Doxycycline Monohydrate, Hctz [Amiloride-Hydrochlorothiazide], Levaquin [Levofloxacin], Meloxicam, and Peanuts MEDICATIONS: Current Outpatient Medications Medication Sig oxyCODONE IR (ROXICODONE) 5 mg immediate release tablet Take 1 tablet by mouth every 6 hours as needed for pain for up to 5 days. lisinopril (ZESTRIL) 40 mg tablet Take 1 tablet by mouth once daily. budesonide-formoterol (SYMBICORT) 160-4.5 mcg/actuation inhaler Inhale 2 Puffs as instructed twice daily. furosemide (LASIX) 20 mg tablet Take 1 tablet by mouth once daily. ALPRAZolam (XANAX) 1 mg tablet Take 1 tablet by mouth once daily as needed for anxiety for up to 30days. Ipratropium (ATROVENT HFA) 17 mcg/actuation inhaler Inhale 2 Puffs as instructed every 6 hours. lansoprazole (PREVACID) 15 mg capsule Take 1 capsule by mouth once daily. albuterol (PROVENTIL) 2.5 mg /3 mL (0.083 %) nebulizer solution Use 3 mL via nebulizer every 6 hours as needed for wheezing/shortness of breath. loratadine (CLARITIN) 10 mg tablet Take 1 tablet by mouth once daily. citalopram (CELEXA) 40 mg tablet Take 1 tablet by mouth once daily. fluticasone (FLONASE) 50 mcg/actuation nasal spray Use 2 Sprays in each nostril once daily. Rinse mouth after use. Nebulizer Accessories mis 1 Each as directed. Nebulizer tubing and mouth piece. faxed to levothyroxine (LEVOXYL) 200 mcg tablet Take 1 tablet by mouth once daily. Take on empty stomach. For thyroid buPROPion XL (WELLBUTRIN XL) 150 mg 24 hr tablet Take 1 tablet by mouth once daily. CIPRODEX 0.3-0.1 % otic suspension Use 2 Drops in both ears as needed. 2 drops twice daily as needed. dexAMETHasone (DEXASOL) 0.1 % ophthalmic solution Use 1 Drop in both eyes every 12 hours as needed.Instill 2 drops into affected ear twice daily as needed. ondansetron (ZOFRAN) 4 mg tablet Take 1 tablet by mouth every 8 hours as needed for nausea/vomiting. SUCRAID 8,500 unit/mL soln baclofen (LIORESAL) 10 mg tablet TAKE 1/2 TO 1 TABLET BY MOUTH TWICE A DAY NEEDED FOR SPASMS urea (CARMOL) 40 % Apply to affected area as needed. amitriptyline (ELAVIL) 25 mg tablet Take 1 tablet by mouth daily at bedtime. amLODIPine (NORVASC) 5 mg tablet Take 1 tablet by mouth once daily. Cholecalciferol, Vitamin D3, 125 mcg (5,000 unit) cap Take 1 capsule by mouth once daily. tegaserod hydrogen maleate 6 mg tablet (ZELNORM) Take 1 tablet (6 mg) by mouth twice daily before meals. Bifidobacterium Infantis (ALIGN) 4 mg cap Take 1 capsule by mouth once daily. CPAP autoCPAP 5-15 cmH2O, mask, tubing, filters, heated humidity, lifetime supplies. Dx: TRINI Nebulizer 1 Each as needed. NEBULIZER TUBING AND SUPPLIES. DX: CHRONIC BRONCHITIS J41.1, WHEEZING R06.2. [facility] [phone] COMPOUNDED PRESCRIPTION Nebulizer for albuterol every fours as needed ICD: R06.2 Current Facility-Administered Medications Medication Dose Route Frequency perflutren lipid microspheres 1.3 mL in NaCl (PF) 0.9% 10 mL injection (DEFINITY) INTRAVENOUS DIRECTED PRN sodium chloride 0.9 % (flush) 10 mL (BD POSIFLUSH) 10 mL INTRAVENOUS DIRECTED PRN FAMILY HISTORY Problem Relation Age of Onset No Known Problems Father Coronary Artery Disease Mother PE Asthma Mother Multiple Sclerosis Mother Coronary Artery Disease Brother None Brother Coronary Artery Disease Sister Colon Cancer No Family History Anesthesia Problems No Family History Social History Tobacco Use Smoking status: Every Day Packs/day: 0.50 Types: Cigarettes Start date: 05/29/1987 Smokeless tobacco: Never Vaping Use Vaping Use: Never used Substance Use Topics Alcohol use: No Drug use: No OBJECTIVE PHYSICAL EXAM: [facility] 09/14/2013 GENERAL: Alert, no distress, cooperative ABDOMEN: Abdomen soft, non-tender, BS normal, No masses or organomegaly and incision is healing well. No signs of erythema or infection. JARAD drain output was minimal and serosanguineous. JARAD drain was easily removed without difficulty today. DATA: Diagnostic tests reviewed for today's visit: Most recent labs and imaging results. Murray Guadarrama MD documented in this encounterSt. [facility] [facility]03-[facility]23 NoteHNO ID: [id number] Author: Maureen Anderson RN Service: ? Author Type: Registered Nurse Type: Nursing Progress Note Filed: 09/05/2022 11:27 AM Note Text: Respiratory therapy at bedside for albuterol nebulizer. Patient states pain level currently 11/23.[id number] NoteHNO ID: [id number] Author: Maureen Anderson RN Service: ? Author Type: Registered Nurse Type: Nursing Progress Note Filed: 09/05/2022 11:12 AM Note Text: Dr. Fairchild at bedside to evaluate patient. Orders received.[facility] 09-05-2022 NoteHNO ID: [id number] Author: Maureen Anderson RN Service: ? Author Type: Registered Nurse Type: Nursing Progress Note Filed: 09/05/2022 11:09 AM Note Text: Wean patient oxygen to Nasal cannula at 5L per minute.[facility] [id number] NoteHNO ID: [id number] Author: Amanda Thomas APRN.COVERAGE ANALYST Service: Anesthesiology Author Type: Nurse Guide Changer Type: Anesthesia Procedure Notes Filed: 09/05/2022 8:02 AM Note Text: ANESTHESIOLOGY PROCEDURE NOTE Airway General Information Procedure Start Time/Medication Administration: 09/05/2022 7:41 AM Patient location during procedure: OR Timeout Performed Pre-procedure: timeout performed Consent Obtained: Yes Patient identity confirmed: arm band and patient Staffing COVERAGE ANALYST: Amanda Thomas APRN.COVERAGE ANALYST Performed by: COVERAGE ANALYST Indications and Patient Condition Indications for airway management: anesthesia Preoxygenated: yes anesthesia circuit Patient position: sniffing and ramp Method: asleep Cricoid Pressure: No Manual In-Line Stabilization: No Difficult Mask: Yes (unable to; BMV pt with oral airway and 2 assist proceed to DL) Airway Accessory: oral airway Final Airway Details Final airway type: endotracheal airway Final Endotracheal Airway: ETT Cuffed: yes Successful intubation technique: direct laryngoscopy Devices used: Gardner Endotracheal tube insertion site: oral Blade: Rafael Blade size: #4 ETT size (mm): 7.5 Measured from: lips Measurement (cm): 22 Placement verified by: chest auscultation and capnometry Cormack-Lehane Classification: grade I - full view of glottis Number of attempts at approach: 1 Ventilation between attempts: none Failed airway: no Unrecognized esophageal intubation: no Airway not difficult SIGNATURE: Amanda Thomas APRN.COVERAGE ANALYST PATIENT NAME: Santy Raza DATE: September 05, 2022 TIME: 7:59 AM CSN: [id number] History of Present illness Narrative* Jessica Kan RT(R) - 09/02/2022 9:20 AM EDT Radiology Service Progress Note PATIENT NAME: Santy Raza DATE OF SERVICE: September 02, 2022 TIME: 9:20 AM PATIENT IDENTITY VERIFICATION COMPLETED USING TWO (2) IDENTIFIERS: Name and Date of confirmedby patient verbally. FALL SCREENING: Has the patient had 2 falls in the last year or 1 fall with injury or currently using an Ambulatory Assistive Device (Walker, Cane, Wheelchair, Crutches, etc.)? Yes, Patient High Riskfor Falls What interventions were put in place to prevent falls during this visit? Instructed Patient to Callfor Help if Needed, Offered Assistance with Transfers/Clothing, and Increased Observations by Caregivers PATIENT GENDER DATA: Female. status: : No status: NO. PATIENT RELEVANT IMPLANT DATA REVIEWED: Yes RADIOLOGY DEPARTMENT: General X-ray: Exam(s) Completed: Chest X-Ray PERIPHERAL IV DATA: Not applicable SIGNED BY: RT Clemente(R) September 02, 2022 9:20 AM documented in this encounterSt. [facility]03-[facility] Instructions* Patient Instructions* Deloris Chavez APRN.CNP - 09/02/2022 9:10 AM EDT Get the chest xray. 2. Let me know if inhaler is not covered. documented in this encounterSt. [facility]03[facility] History of Present illness Narrative* Deloris Chavez APRN.CNP - 09/02/2022 8:47 AM EDT This is a 61 year old female who presents today with: Patient presents with: Recheck: Medication follow up; shortness of breath when walking- feels like she has pneumonia HISTORY OF PRESENT ILLNESS: Santy Raza is a 61 year old female. Patient presents with: Recheck: Medication follow up; shortness of breath when walking- feels like she has pneumonia Pt presents today with complaint of SOB. Feels likes she has pneumonia. Refers that she is getting SOB with exertion. Had some coughing a few weeks ago. Refers a few weeks ago, she woke up on the floor after coughing -- thinks she passed out with coughing. Reports she has had episodes of coughing where she will feel like she is going to pass out, butdoesn't. Sometimes will cough just a small amount of clear mucus. No fevers/chills. Refers that symptoms worsened over the last week - week and a half. Refers that her legs feel a little puffy. She is using her albuterol nebulizers. She is using atrovent inhaler as needed. PAST MEDICAL HISTORY: PAST MEDICAL HISTORY Diagnosis Date Allergic rhinitis, cause unspecified BMI 45.0-49.9, adult ([facility]) 08/27/2022 Central perforation of tympanic membrane, bilateral Essential hypertension, benign Hypothyroidism 09/26/2015 Mixed conductive and sensorineural hearing loss Obstructive sleep apnea Other anxiety states Perforated tympanic membrane 03/29/2011 Snoring Synovitis and tenosynovitis, unspecified Tobacco abuse 03/23/2012 PAST SURGICAL HISTORY Procedure Laterality Date COLONOSCOPY SCRN NOT HIGH RISK 09/13/2020 EGD 10/25/2020 LIG/TRNSXJ FLP TUBE ABDL/VAG APPR UNI/BI Tubal ligation MYRINGOTOMY ASPIR&/EUSTACHIAN TUBE NFLTJ ANES Myringotomy/tubes NEUROPLASTY &/TRANSPOS MEDIAN NRV CARPAL TUNNE Bilateral 01/15/2019 Bilateral carpal tunnel release REDUCTION OF LARGE BREAST 04/23/2016 STEREOTACT BREAST BX EA LESION PC 09/30/2018 left stereotactic breast biopsy w/vacuum assisted core needle biopsy, specimen radiograph and marker placement ALLERGIES Codfish [Other], Doxycycline Monohydrate, Hctz [Other], Levaquin [Levofloxacin], Meloxicam, and Peanuts MEDICATIONS Current Outpatient Medications Medication Sig furosemide (LASIX) 20 mg tablet Take 1 tablet by mouth once daily. ALPRAZolam (XANAX) 1 mg tablet Take 1 tablet by mouth once daily as needed for anxiety for up to 30days. Ipratropium (ATROVENT HFA) 17 mcg/actuation inhaler Inhale 2 Puffs as instructed every 6 hours. lansoprazole (PREVACID) 15 mg capsule Take 1 capsule by mouth once daily. albuterol (PROVENTIL) 2.5 mg /3 mL (0.083 %) nebulizer solution Use 3 mL via nebulizer every 6 hours as needed for wheezing/shortness of breath. fexofenadine HCl (MUCINEX ALLERGY ORAL) Take by mouth. loratadine (CLARITIN) 10 mg tablet Take 1 tablet by mouth once daily. citalopram (CELEXA) 40 mg tablet Take 1 tablet by mouth once daily. fluticasone (FLONASE) 50 mcg/actuation nasal spray Use 2 Sprays in each nostril once daily. Rinse mouth after use. Nebulizer Accessories misc 1 Each as directed. Nebulizer tubing and mouth piece. faxed to levothyroxine (LEVOXYL) 200 mcg tablet Take 1 tablet by mouth once daily. Take on empty stomach. For thyroid buPROPion XL (WELLBUTRIN XL) 150 mg 24 hr tablet Take 1 tablet by mouth once daily. CIPRODEX 0.3-0.1 % otic suspension Use 2 Drops in both ears as needed. 2 drops twice daily as needed. dexAMETHasone (DEXASOL) 0.1 % ophthalmic solution Use 1 Drop in both eyes every 12 hours as needed.Instill 2 drops into affected ear twice daily as needed. ondansetron (ZOFRAN) 4 mg tablet Take 1 tablet by mouth every 8 hours as needed for nausea/vomiting. SUCRAID 8,500 unit/mL soln baclofen (LIORESAL) 10 mg tablet TAKE 1/2 TO 1 TABLET BY MOUTH TWICE A DAY NEEDED FOR SPASMS urea (CARMOL) 40 % Apply to affected area as needed. amitriptyline (ELAVIL) 25 mg tablet Take 1 tablet by mouth daily at bedtime. amLODIPine (NORVASC) 5 mg tablet Take 1 tablet by mouth once daily. Cholecalciferol, Vitamin D3, 125 mcg (5,000 unit) cap Take 1 capsule by mouth once daily. lisinopril (ZESTRIL, PRINIVIL) 40 mg tablet Take 1 tablet by mouth once daily. tegaserod hydrogen maleate 6 mg tablet (ZELNORM) Take 1 tablet (6 mg) by mouth twice daily before meals. Bifidobacterium Infantis (ALIGN) 4 mg cap Take 1 capsule by mouth once daily. CPAP autoCPAP 5-15 cmH2O, mask, tubing, filters, heated humidity, lifetime supplies. Dx: TRINI Nebulizer 1 Each as needed. NEBULIZER TUBING AND SUPPLIES. DX: CHRONIC BRONCHITIS J41.1, WHEEZING R06.2. FAX TO [employer] [phone] COMPOUNDED PRESCRIPTION Nebulizer for albuterol every fours as needed ICD: R06.2 Current Facility-Administered Medications Medication Dose Route Frequency perflutren lipid microspheres 1.3 mL in NaCl (PF) 0.9% 10 mL injection (DEFINITY) INTRAVENOUS DIRECTED PRN sodium chloride 0.9 % (flush) 10 mL (BD POSIFLUSH) 10 mL INTRAVENOUS DIRECTED PRN FAMILY HISTORY Problem Relation Age of Onset No Known Problems Father Coronary Artery Disease Mother PE Asthma Mother Multiple Sclerosis Mother Coronary Artery Disease Brother None Brother Coronary Artery Disease Sister Colon Cancer No Family History Anesthesia Problems No Family History Social History Tobacco Use Smoking status: Every Day Packs/day: 0.50 Types: Cigarettes Start date: 05/29/1987 Smokeless tobacco: Never Vaping Use Vaping Use: Never used Substance Use Topics Alcohol use: No Drug use: No EXAM: BP 118/80 Pulse 110 Resp 18 Wt 132.5 kg (292 lb) LMP 09/14/2013 SpO2 96% BMI 47.13 kg/m PHYSICAL EXAM: General Appearance: Well appearing, alert, in no acute distress, well-hydrated, well nourished.. Skin: Skin color, texture, turgor normal, no suspicious rashes or lesions. Head: Normocephalic, no masses, lesions, tenderness or abnormalities. Eyes: Anicteric sclera. Pupils are equally round and reactive to light. Extraocular movements are intact. . Lungs: scattered wheezing/rhonchi. Heart: RRR without murmur, gallop, or rubs. No ectopy. Extremities: No deformities, trace non-pitting edema, skin discoloration, clubbing or cyanosis. Good capillary refill. . Neurologic: Gait normal. ASSESSMENT/PLAN: 1. SOB (shortness of breath) - ICD9: 786.05, ICD10: R06.02 (primary diagnosis) Suspect exacerbation of chronic bronchitis. Will get chest xray. Start Symbicort. Continue albuterol nebulizers and/or Atrovent inhaler as needed. She is to let provider know if Symbicort not covered by insurance. - XR CHEST 2V FRONTAL/LAT - BUDESONIDE-FORMOTEROL HFA 160 MCG-4.5 MCG/ACTUATION AEROSOL INHALER 2. Mucopurulent chronic bronchitis (HCC) - ICD9: 491.1, ICD10: J41.1 As above. 3. Essential hypertension, benign - ICD9: 401.1, ICD10: I10 - good control - Continue current medication(s) - Recommended regular aerobic exercise. - Recommend home blood pressure monitoring, to bring results in on next visit - Goal of BP <130/80 - LISINOPRIL 40 MG TABLET Discussed treatment plan and patient voices understanding. Patient's questions answered appropriately. Medications and potential side effects were discussed and patient voices understanding. Return to the office as scheduled or as needed for worsening/no improvement. Deloris Chavez APRN.CONTENT MANAGEMENT CONSULTANT This note was partially generated using [employer]page voice recognition system. Note was reviewed for accuracy. There may be minor misspellings or grammar miscues with [employer] voice recognition. documented in this encounterSt. [facility]03[facility] History of Present illness Narrative* Latisha Soto LPN - 08/29/2022 11:36 AM EDT Patient presents for EKG. Denies any problems at this time. Tolerated procedure well. Latisha Soto LPN documented in this encounterSt. Mary[facility]03-[facility]23 Miscellaneous Notes* Telephone Encounter - Cedrick Colvin APRN.CNP, DNP - 08/27/2022 11:12 AM EDT Lab work and EKG documented in this encounterSt. Mary[facility] [facility]03[facility]23 Instructions* Patient Instructions* Cedrick Colvin APRN.CNP, DNP - 08/27/2022 11:11 AM EDT PATIENT PREOPERATIVE INSTRUCTIONS Murray Guadarrama MD has scheduled you for your procedure at this surgery center: [facility]: [phone] -- [address] [address]. Please read below carefully for your personalized instructions. Dietary Restrictions: - No solid food after midnight. - You may have 12 ounces of clear liquids (water, clear juices such as apple juice or gatorade, carbonated beverages, clear tea, black coffee, jello) until 2 hours before scheduled arrival at facility. Medications: Unless instructed differently below, stay on all of your medications until your surgery. Approved medications to take the morning of surgery with a sip of water:Levothyroxine. Do not take Lasix on the morning of surgery. Do not take lisinopril for 24 hours before surgery. If you start any new medications after today's visit, please contact the surgeon's office. Blood Thinning Medications: - Stop NSAIDS (Ibuprofen, Advil, Aleve, Motrin, Celebrex, Mobic, etc.) 7 days before surgery, as directed by your surgeon. - Stop Aspirin 7 days before surgery, as directed by your surgeon. - Stop Vitamin E, ALL multi-vitamins, herbals and dietary supplements 7 days before surgery. - You may take Tylenol (Acetaminophen) or any of your pain medications that do not contain aspirin or NSAIDS as needed. Important Reminders: - If you use CPAP/BIPAP, bring the machine with you to the surgery center. - If you are prescribed inhalers for breathing, continue using them. - Candy, mints, and tobacco products are NOT permitted the morning of surgery. - Hearing aids, dentures and glasses may be worn the morning of surgery. - NO jewelry, body piercings, makeup, hairpins or contacts are to be worn the day of surgery. If you develop symptoms such as a fever, cold, or flu, or have other changes to your health within TWO DAYS of scheduled surgery or the morning of surgery, please contact the surgery center above. Personal Belongings: -Please have photo ID and insurance cards. -If you do not have a copy of advance directives on file with us, please bring a copy with you on the day of surgery. - Leave ALL valuables and money at home or with family members. For Outpatient Procedures: - YOU MUST HAVE A RESPONSIBLE TENTMAKER TAKE YOU HOME. A CYTOGENETICIST OR SUSTAINABILITY DIRECTOR CANNOT BE MADE A RESPONSIBLE TENTMAKER. - We recommend that a responsible person stays with you overnight to take care of you. - You cannot stay in a hotel alone after outpatient surgery. You will not be permitted to have yoursurgery, if you do not have someone to take care of you. Arrival Time for Surgery: - The Surgery Center or hospital where you are having surgery will call the afternoon before surgery (or Friday for Friday surgery) with a scheduled arrival time. - If you have not heard by 4 pm, please contact the surgery center above. Please be aware that emergency situations arise, which may delay or change your surgical time. If this happens, we will notify you as soon as possible and regret any inconvenience. If you already have an Advance Directive, please fax a copy to [phone] or email to for it to be added to your chart. If you do not have an Advance Directive, you can find the appropriate form and more information at [email or web address]. We recommend that youcomplete the Advance Directive form found on the website and bring it with you the day of your surgery. It can be witnessed and scanned into your chart that day. TRUDY Colvin APRN.CNP, DNP documented in this encounterSt[facility] [facility] History and physical note * Cedrick Colvin APRN.CNP, DNP - 08/27/2022 10:32 AM EDT PREANESTHESIA CONSULT CLINIC TELEHEALTH VISIT I have communicated my name and active licensure. The patient's identity and physical location wereverified at the time of this visit. Either the patient or their legal employee representative has been informed of the risks and benefits of and alternatives to treatment through a remote evaluation and consents to proceed with the evaluation remotely. Patient has been identified by name and date of : Yes This is a virtual visit using [employer] video visit. It require patient-provider interaction for the medical decision making as documented below. Reason for contact: PACC visit Accompanied by: Self Scheduled Surgery: LAPAOSCOPIC HERNIORRHAPHY FOR REDUCIBLE VENTRAL 3cm-10cm On 09/05/2022 with Murray Guadarrama MD at [place] [facility] Subjective CHIEF COMPLAINT: Patient presents with: Anesthesia Consult: Preop instruction HPI: This is a 61 year old female who presents with large ventral hernia confirmed by CT abdomen/pelvis on August 08, 2022. She reports significant increase in size of the hernia. She experiences nausea but no vomiting. Denies any change in bowel habits. Has chronic history of IBS- constipation, on prescription. She is scheduled for the above-mentioned procedure for management. ACTIVE PROBLEM LIST Allergic Rhinitis Essential Hypertension, Benign Adjustment Disorder With Depressed Mood Tobacco Abuse Hyperlipidemia Ldl Goal <130 Spondylolisthesis of Lumbar Region Disabling Back Pain Trini (Obstructive Sleep Apnea) Hypothyroidism Morbid Obesity Due to Excess Calories ([facility]) Ddd (Degenerative Disc Disease), Lumbar Spondylosis of Lumbar Region Without Myelopathy Or Radiculopathy Gerd Without Esophagitis Mucopurulent Chronic Bronchitis ([facility]) Osteoarthritis of Spine With Radiculopathy, Lumbar Region Tympanic Membrane Perforation, Right Chronic Bilateral Thoracic Back Pain Shortness of Breath Tinea Pedis of Both Feet Generalized Anxiety Disorder With Panic Attacks Ddd (Degenerative Disc Disease), Cervical Vitamin D Deficiency Stress Incontinence Cervical Radiculopathy Pre-Op Evaluation Epigastric Pain Abdominal Bloating Medication Management Irritable Bowel Syndrome Bmi 45.0-49.9, Adult ([facility]) PAST MEDICAL HISTORY Diagnosis Date Allergic rhinitis, cause unspecified BMI 45.0-49.9, adult ([facility]) 08/27/2022 Central perforation of tympanic membrane, bilateral Essential hypertension, benign Hypothyroidism 09/26/2015 Mixed conductive and sensorineural hearing loss Obstructive sleep apnea Other anxiety states Perforated tympanic membrane 03/29/2011 Snoring Synovitis and tenosynovitis, unspecified Tobacco abuse 03/23/2012 PAST SURGICAL HISTORY Procedure Laterality Date COLONOSCOPY SCRN NOT HIGH RISK 09/13/2020 EGD 10/25/2020 LIG/TRNSXJ FLP TUBE ABDL/VAG APPR UNI/BI Tubal ligation MYRINGOTOMY ASPIR&/EUSTACHIAN TUBE NFLTJ ANES Myringotomy/tubes NEUROPLASTY &/TRANSPOS MEDIAN NRV CARPAL TUNNE Bilateral 01/15/2019 Bilateral carpal tunnel release REDUCTION OF LARGE BREAST 04/23/2016 STEREOTACT BREAST BX EA LESION PC 09/30/2018 left stereotactic breast biopsy w/vacuum assisted core needle biopsy, specimen radiograph and marker placement FAMILY HISTORY Problem Relation Age of Onset Coronary Artery Disease Mother PE Asthma Mother Multiple Sclerosis Mother No Known Problems Father Coronary Artery Disease Sister Coronary Artery Disease Brother None Brother Colon Cancer No Family History Social History Tobacco Use Smoking status: Every Day Packs/day: 0.50 Types: Cigarettes Start date: 05/29/1987 Smokeless tobacco: Never Vaping Use Vaping Use: Never used Substance Use Topics Alcohol use: No Drug use: No ALLERGIES Allergen Reactions Codfish [Other] Itching Doxycycline Monohyd* Vomiting Hctz [Other] Itching Levaquin [Levofloxa* Other: See Comments Jittery nervousness Meloxicam Itching, Rash, Swelling Peanuts Itching MEDICATIONS: Current Outpatient Medications Medication Sig Ipratropium (ATROVENT HFA) 17 mcg/actuation inhaler Inhale 2 Puffs as instructed every 6 hours. albuterol (PROVENTIL) 2.5 mg /3 mL (0.083 %) nebulizer solution Use 3 mL via nebulizer every 6 hours as needed for wheezing/shortness of breath. loratadine (CLARITIN) 10 mg tablet Take 1 tablet by mouth once daily. citalopram (CELEXA) 40 mg tablet Take 1 tablet by mouth once daily. fluticasone (FLONASE) 50 mcg/actuation nasal spray Use 2 Sprays in each nostril once daily. Rinse mouth after use. Nebulizer Accessories misc 1 Each as directed. Nebulizer tubing and mouth piece. faxed to levothyroxine (LEVOXYL) 200 mcg tablet Take 1 tablet by mouth once daily. Take on empty stomach. For thyroid buPROPion XL (WELLBUTRIN XL) 150 mg 24 hr tablet Take 1 tablet by mouth once daily. ondansetron (ZOFRAN) 4 mg tablet Take 1 tablet by mouth every 8 hours as needed for nausea/vomiting. SUCRAID 8,500 unit/mL soln baclofen (LIORESAL) 10 mg tablet TAKE 1/2 TO 1 TABLET BY MOUTH TWICE A DAY NEEDED FOR SPASMS urea (CARMOL) 40 % Apply to affected area as needed. amitriptyline (ELAVIL) 25 mg tablet Take 1 tablet by mouth daily at bedtime. amLODIPine (NORVASC) 5 mg tablet Take 1 tablet by mouth once daily. Cholecalciferol, Vitamin D3, 125 mcg (5,000 unit) cap Take 1 capsule by mouth once daily. lisinopril (ZESTRIL, PRINIVIL) 40 mg tablet Take 1 tablet by mouth once daily. tegaserod hydrogen maleate 6 mg tablet (ZELNORM) Take 1 tablet (6 mg) by mouth twice daily before meals. CPAP autoCPAP 5-15 cmH2O, mask, tubing, filters, heated humidity, lifetime supplies. Dx: TRINI Nebulizer 1 Each as needed. NEBULIZER TUBING AND SUPPLIES. DX: CHRONIC BRONCHITIS J41.1, WHEEZING R06.2. FAX TO [facility] [place] [phone] COMPOUNDED PRESCRIPTION Nebulizer for albuterol every fours as needed ICD: R06.2 lansoprazole (PREVACID) 15 mg capsule Take 1 capsule by mouth once daily. fexofenadine HCl (MUCINEX ALLERGY ORAL) Take by mouth. CIPRODEX 0.3-0.1 % otic suspension Use 2 Drops in both ears as needed. 2 drops twice daily as needed. (Patient not taking: Reported on 08/27/2022) dexAMETHasone (DEXASOL) 0.1 % ophthalmic solution Use 1 Drop in both eyes every 12 hours as needed.Instill 2 drops into affected ear twice daily as needed. (Patient not taking: Reported on 08/27/2022) furosemide (LASIX) 20 mg tablet Take 1 tablet by mouth once daily. Bifidobacterium Infantis (ALIGN) 4 mg cap Take 1 capsule by mouth once daily. Current Facility-Administered Medications Medication Dose Route Frequency perflutren lipid microspheres 1.3 mL in NaCl (PF) 0.9% 10 mL injection (DEFINITY) INTRAVENOUS DIRECTED PRN sodium chloride 0.9 % (flush) 10 mL (BD POSIFLUSH) 10 mL INTRAVENOUS DIRECTED PRN COVID VACCINATION STATUS: Fully vaccinated REVIEW OF SYSTEMS: General: + obesity Neuro: No history of TIA's, stroke, CLINICAL ENGINEER tumor, impaired sensorium, hemiplegia, paraplegia or quadraplegia. No neurological symptoms or problems. Respiratory: Positive for Bronchitis, recurrent, stable on rx, TRINI uses CPAP, seasonal allergy usesFlonase, Negative for Asthma, COPD, Current cough, Daily bronchodilator use for previous 3 months, Dyspnea, Home O2, Pneumonia within 6 weeks (date), Tobacco Use, URI < 2 weeks, Wheezing Cardiovascular: Positive for: Hypertension, on rx, edema to bilateral lower edema on Lasix, Negative for Recent NE, Angina, Arrhythmia, CAD, Chest Pain, CHF, PVD, Valvular Heart Disease, DVT/PE GI: Positive for GERD, IBS, on rx, hernia SEE HPI, Negative for PUD, Abdominal pain, Difficulty swallowing, GI bleed < 30 days, Esophageal varices < 6 months, Hepatitis, Liver disease, Ascites,ETOH > 2 drinks / day, Pancreatitis, Inflammatory bowel disease, Colon cancer, Rectal cancer : No history of dysuria, frequency or incontinence,, stones or chronic kidney disease SPACE OFFICER: Negative for abnormal vaginal bleeding, abnormal vaginal discharge. : Patient's last menstrual period was 09/14/2013. Endocrine: Hypothyroidism on rx Hematology: No history of bleeding or clotting disorder. Pt is not taking anti- coagulation or platelet medications. No history of hematological symptoms or problems. Oncology: No history of CA metastasis, chemo within 30 days, or radiotherapy within 90 days. Has not lost 10% of body wt in 6 months. No history of oncological symptoms or problems. Psych: Anxiety, Depression on rx Musculoskeletal: Back pain, chronic, history of injections, on baclofen Skin: Negative for lesions, rash and itching. Objective PHYSICAL EXAM: Ht 5' 6 (1.68m) Wt 280 lb (127.0kg) LMP 09/14/2013 BMI 45.21 kg/(m^2). VIDEO EXAM: (if completed, performed via video enabled technology) GENERAL: alert and appropriate, in no distress, well-hydrated, well nourished, happy, smiling, interactive, and obese EYES: no injection and visual acuity is grossly normal EARS: hearing grossly normal OROPHARYNX: moist mucus membranes RESPIRATORY: breathing non-labored CHEST: equal chest rise with normal respiratory effort HEART: Capillary refill <3 seconds in bilateral upper extremities. NEUROLOGIC: no obvious deficit Diagnostic tests reviewed for today's visit: Lab Value Units Date High Low HB No results within date range. HCT No results within date range. WBC No results within date range. PLT No results within date range. NA No results within date range. K No results within date range. GLUC No results within date range. BUN No results within date range. CREAT 0.91 mg/dL 08/05/2022 0.96 0.58 PTSEC No results within date range. INR No results within date range. APTT No results within date range. ALT No results within date range. AST No results within date range. TBILI No results within date range. TSH No results within date range. Lab Value Units Date High Low HCGQT No results within date range. UHCG No results within date range. HCG, BODY* No results within date range. Lab Value Units Date High Low ABORHD No results within date range. ABSCREEN No results within date range. Hemoglobin A1C (%) Date Value 09/19/2021 6.0 05/16/2020 5.8 01/25/2019 5.5 Most recent ECHO Impression CONCLUSIONS: - Technically difficult exam due to body habitus. - Exam indication: Abnormal ECG - The left ventricle is normal in size. Left ventricular systolic function is normal. EF = 67 5% (2D biplane) Grade I left ventricular diastolic dysfunction. - The right ventricle is normal in size. Right ventricular systolic function is normal. - There are no significant valvular abnormalities. - The patient has not had a prior [facility] echocardiographic exam for comparison. Most recent EKG (PENDING) Most recent CT ABD/PEL W IVCON IMPRESSION: Hepatic steatosis cannot be excluded. Interval increase in size of bowel loop containing epigastric hernia. This examination was interpreted and the report reviewed and electronically signed by: PAULETTE PERKINS MD on Aug 08 2022 3:25PM EST Impression/Recommendations ASSESSMENT: BMI 45.0-49.9, adult (HCC) -Class III severe obesity with BMI of 45.19. Generalized anxiety disorder with panic attacks -Stable on Celexa and Wellbutrin. Hypothyroidism -Stable on Synthroid. GERD without esophagitis -Stable on Prevacid. TRINI (obstructive sleep apnea) -Compliant with CPAP nightly. BENIGN HYPERTENSION -Most recent blood pressure is 116/82. -Managed with lisinopril and amlodipine. -Patient takes Lasix as needed for lower extremity edema. Denies any edema during this visit. Mucopurulent chronic bronchitis (HCC) -Stable on inhalers. Denies using daily inhalers. METS: Walk indoors, such as around the house (1.75 METs) Do light work around the house, such as dusting or washing dishes (2.70 METs) Take care of self; that is eating, dressing, bathing, using the toilet (2.75 METs) Patient denies any chest pain or undue shortness of breath with the above physical activity. ASA Class: 3 ANESTHESIA FINDINGS: Intubation History: No history of difficult intubation Significant Anesthesia Considerations: A history of hypotension during surgery. Airway Exam: General: Morbid obesity Mallampati Score is CLASS II ULBT: Class II - Lower incisors can bite the upper lip below the miguelito line Neck: Normal appearance and function, Distance from hyoid to mentum during neck extension is at least 3 finger breaths Mouth: Normal tongue size and Mouth opening greater than 2 finger breaths Dentition: Upper denture and Lower denture Airway History: No history of difficult intubation STOP BANG Score: TRINI uses CPAP/BiPAP PLAN: This patient is optimally prepared for surgery pending LABS and EKG. CONSULTS: Patient does not require consults for optimization at this time. The Following Tests/Procedures Have Been Initiated: Orders Placed This Encounter CBC with Differential Standing Status: Future Standing Expiration Date: 10/27/2022 BMP Standing Status: Future Standing Expiration Date: 10/27/2022 HGB A1C Standing Status: Future Standing Expiration Date: 10/27/2022 TSH Blood Standing Status: Future Standing Expiration Date: 10/27/2022 Type and Screen, 30 day Standing Status: Future Standing Expiration Date: 10/27/2022 Confirm Blood Type Standing Status: Future Standing Expiration Date: 10/27/2022 Order Specific Question: Did Blood Bank direct you to place this order: Answer: No - Presurgical Workflow ECG COMPLETE Standing Status: Future Standing Expiration Date: 08/28/2023 Planned Anesthetic: General Instructions Given to Patient: Patient given verbal instructions and voices comprehension and compliance. Copy sent electronically via My Chart, email, or mobile device. I spent more than 0-20 minutes [id number] with the patient and over half the time was devoted to counseling and/or coordination of care. This is a virtual visit. It required patient-provider interaction for the medical decision making as documented above. SIGNATURE: Cedrick Colvin APRN.CNP, DNP PATIENT NAME: Santy Raza DATE: 08/27/2022 TIME: 10:58 AM PAGER/CONTACT #: documented in this encounterSt. [facility] [facility] Miscellaneous Notes* Telephone Encounter - Finn Leon APRN.CNP - 08/21/2022 11:41 AM EST The following approved medication requests have been transmitted electronically. Requested Prescriptions Pending Prescriptions Disp Refills Ipratropium (ATROVENT HFA) 17 mcg/actuation inhaler 1 Each 3 Sig: Inhale 2 Puffs as instructed every 6 hours. Finn Leon APRN.CNP * Telephone Encounter - Jose Summers LPN - 08/21/2022 8:22 AM EST Patient phones requesting refills as follows: Requested Prescriptions Pending Prescriptions Disp Refills Ipratropium (ATROVENT HFA) 17 mcg/actuation inhaler Sig: Inhale 2 Puffs as instructed every 6 hours. Please review and advise. Jose Summers LPN documented in this encounterSt. [facility] [facility] Miscellaneous Notes* Telephone Encounter - Jose Summers LPN - 08/10/2022 10:41 AM EST Patient phones requesting refills as follows: Requested Prescriptions Pending Prescriptions Disp Refills lansoprazole (PREVACID) 15 mg capsule 30 capsule 11 Sig: Take 1 capsule by mouth once daily. Please review and advise. Jose Summers LPN documented in this encounterSt. [facility] [place] [facility] History of Present illness Narrative* Murray Guadarrama MD - 08/08/2022 3:57 PM EST PROGRESS NOTES PATIENT NAME: Santy Raza Assessment ASSESSMENT AND PLAN The patient is a 61-year-old female with a large ventral hernia. I recommended a hybrid laparoscopic/open hernia repair with mesh. We discussed the details of the planned procedure including the riskbenefits and alternatives. She wishes to proceed. This will be scheduled in a timely manner. SUBJECTIVE CHIEF COMPLAINT: Patient presents with: Follow Up: Review CT scan INTERVAL HISTORY OF PRESENT ILLNESS: The patient is a 61-year-old female who returns today to discuss results of her recent CT scan to evaluate abdominal pain and nausea. She has a known ventral hernia. CAT scan was performed to better understand the size and anatomy involved. This has gotten much bigger than previous CT scan. She presents today to discuss having this repaired. HISTORIES: PAST MEDICAL HISTORY Diagnosis Date Allergic rhinitis, cause unspecified Central perforation of tympanic membrane, bilateral Essential hypertension, benign Hypothyroidism 09/26/2015 Mixed conductive and sensorineural hearing loss Obstructive sleep apnea Other anxiety states Perforated tympanic membrane 03/29/2011 Snoring Synovitis and tenosynovitis, unspecified Tobacco abuse 03/23/2012 PAST SURGICAL HISTORY Procedure Laterality Date COLONOSCOPY SCRN NOT HIGH RISK 09/13/2020 EGD 10/25/2020 LIG/TRNSXJ FLP TUBE ABDL/VAG APPR UNI/BI Tubal ligation MYRINGOTOMY ASPIR&/EUSTACHIAN TUBE NFLTJ ANES Myringotomy/tubes NEUROPLASTY &/TRANSPOS MEDIAN NRV CARPAL TUNNE Bilateral 01/15/2019 Bilateral carpal tunnel release REDUCTION OF LARGE BREAST 04/23/2016 STEREOTACT BREAST BX EA LESION PC 09/30/2018 left stereotactic breast biopsy w/vacuum assisted core needle biopsy, specimen radiograph and marker placement ALLERGIES: Codfish [Other], Doxycycline Monohydrate, Hctz [Other], Levaquin [Levofloxacin], Meloxicam, and Peanuts MEDICATIONS: Current Outpatient Medications Medication Sig albuterol (PROVENTIL) 2.5 mg /3 mL (0.083 %) nebulizer solution Use 3 mL via nebulizer every 6 hours as needed for wheezing/shortness of breath. ALPRAZolam (XANAX) 1 mg tablet Take 1 tablet by mouth once daily as needed for anxiety for up to 30days. fexofenadine HCl (MUCINEX ALLERGY ORAL) Take by mouth. loratadine (CLARITIN) 10 mg tablet Take 1 tablet by mouth once daily. citalopram (CELEXA) 40 mg tablet Take 1 tablet by mouth once daily. fluticasone (FLONASE) 50 mcg/actuation nasal spray Use 2 Sprays in each nostril once daily. Rinse mouth after use. Nebulizer Accessories misc 1 Each as directed. Nebulizer tubing and mouth piece. faxed to levothyroxine (LEVOXYL) 200 mcg tablet Take 1 tablet by mouth once daily. Take on empty stomach. For thyroid buPROPion XL (WELLBUTRIN XL) 150 mg 24 hr tablet Take 1 tablet by mouth once daily. CIPRODEX 0.3-0.1 % otic suspension Use 2 Drops in both ears as needed. 2 drops twice daily as needed. dexAMETHasone (DEXASOL) 0.1 % ophthalmic solution Use 1 Drop in both eyes every 12 hours as needed.Instill 2 drops into affected ear twice daily as needed. ondansetron (ZOFRAN) 4 mg tablet Take 1 tablet by mouth every 8 hours as needed for nausea/vomiting. Ipratropium (ATROVENT HFA) 17 mcg/actuation inhaler Inhale 2 Puffs as instructed every 6 hours. SUCRAID 8,500 unit/mL soln baclofen (LIORESAL) 10 mg tablet TAKE 1/2 TO 1 TABLET BY MOUTH TWICE A DAY NEEDED FOR SPASMS urea (CARMOL) 40 % Apply to affected area as needed. amitriptyline (ELAVIL) 25 mg tablet Take 1 tablet by mouth daily at bedtime. amLODIPine (NORVASC) 5 mg tablet Take 1 tablet by mouth once daily. furosemide (LASIX) 20 mg tablet Take 1 tablet by mouth once daily. Cholecalciferol, Vitamin D3, 125 mcg (5,000 unit) cap Take 1 capsule by mouth once daily. lisinopril (ZESTRIL, PRINIVIL) 40 mg tablet Take 1 tablet by mouth once daily. lansoprazole (PREVACID) 15 mg capsule Take 1 capsule by mouth once daily. tegaserod hydrogen maleate 6 mg tablet (ZELNORM) Take 1 tablet (6 mg) by mouth twice daily before meals. Bifidobacterium Infantis (ALIGN) 4 mg cap Take 1 capsule by mouth once daily. CPAP autoCPAP 5-15 cmH2O, mask, tubing, filters, heated humidity, lifetime supplies. Dx: TRINI Nebulizer 1 Each as needed. NEBULIZER TUBING AND SUPPLIES. DX: CHRONIC BRONCHITIS J41.1, WHEEZING R06.2. FAX TO [employer] [phone] COMPOUNDED PRESCRIPTION Nebulizer for albuterol every fours as needed ICD: R06.2 Current Facility-Administered Medications Medication Dose Route Frequency perflutren lipid microspheres 1.3 mL in NaCl (PF) 0.9% 10 mL injection (DEFINITY) INTRAVENOUS DIRECTED PRN sodium chloride 0.9 % (flush) 10 mL (BD POSIFLUSH) 10 mL INTRAVENOUS DIRECTED PRN FAMILY HISTORY Problem Relation Age of Onset Coronary Artery Disease Mother PE Asthma Mother Multiple Sclerosis Mother No Known Problems Father Coronary Artery Disease Sister Coronary Artery Disease Brother None Brother Colon Cancer No Family History Social History Tobacco Use Smoking status: Every Day Packs/day: 0.50 Types: Cigarettes Start date: 05/29/1987 Smokeless tobacco: Never Vaping Use Vaping Use: Never used Substance Use Topics Alcohol use: No Drug use: No OBJECTIVE PHYSICAL EXAM: LMP 09/14/2013 GENERAL: Alert, no distress, cooperative ABDOMEN: Mild tenderness in the central abdomen at the level of her hernia. DATA: Diagnostic tests reviewed for today's visit: Most recent imaging Murray Guadarrama MD documented in this encounterSt. [facility] [facility] History of Present illness Narrative* Kelin De Los Santos, RT(R) - 08/06/2022 10:40 AM EST Radiology Service Progress Note DATE OF SERVICE: August 06, 2022 TIME: 3:18 PM PATIENT IDENTITY VERIFICATION COMPLETED USING TWO (2) STANDARD IDENTIFIERS: Name and Date of confirmed by patient verbally. FALL SCREENING: Has the patient had 2 falls in the last year or 1 fall with injury or currently using an Ambulatory Assistive Device (Walker, Cane, Wheelchair, Crutches, etc.)? No PATIENT GENDER DATA: Female. status: : No status: NO. PATIENT RELEVANT IMPLANT DATA REVIEWED: Yes ALLERGIES: Reviewed and unchanged CONTRAST ALLERGY: NO. EXAM: CT -CONTRAST INDUCED NEPHROPATHY RISK FACTORS: Patient age > 60 years CREATININE: Creatinine Date Value Ref Range Status 08/05/2022 0.91 0.58 - 0.96 mg/dL Final 09/19/2021 0.89 0.58 - 0.96 mg/dL Final 06/02/2020 0.79 0.58 - 0.96 mg/dL Final Estimated Glomerular Filtration Rate Date Value Ref Range Status 08/05/2022 72 >=60 mL/min/1.73m Final Comment: Estimated Glomerular Filtration Rate (eGFR) is calculated using the 2020 CKD-EPI creatinine equation. This equation utilizes serum creatinine, sex, and age as parameters. The creatinine assay has traceable calibration to isotope dilution- mass spectrometry. Refer to KDIGO guidelines for clinical interpretation. In patients with unstable renal function, e.g. those with acute kidney injury, the eGFRmay not accurately reflect actual GFR. eGFR- Date Value Ref Range Status 06/02/2020 >60 Final P.O.C.T. RESULTS: POC done: Yes, See Lab Tab August 06, 2022 TREATMENT: N/A PERIPHERAL IV DATA: Ambulatory: A peripheral IV was started in the Left antecubital site with a Angio cath: 22 gauge. RADIOLOGY DEPARTMENT: CT; Exam(s) Completed: Abdomen/Pelvis SIGNATURE: RT Dani(R) PATIENT NAME: Santy Raza DATE: August 06, 2022 TIME: 3:18 PM documented in this encounterSt. [facility] [facility] History of Present illness Narrative* Murray Guadarrama MD - 07/23/2022 8:43 AM EST PROGRESS NOTES PATIENT NAME: Santy Raza Assessment ASSESSMENT AND PLAN The patient is a 61-year-old female with abdominal pain and nausea. It is difficult to determine ifher gallbladder or if it is completely her hernia that is causing her symptoms. I recommend that weat least start with a CT scan to evaluate her hernia. She is agreeable this plan will follow up after the CAT scan. SUBJECTIVE CHIEF COMPLAINT: Patient presents with: Consult: Gallbladder INTERVAL HISTORY OF PRESENT ILLNESS: The patient is a 61-year-old female who presents today with abdominal bloating nausea and pain. It sounds as though she has undergone a gallbladder work-up but there is also concern for hernia. She has had most of her work-up at [facility]. In 2020 she hada right upper quadrant ultrasound and HIDA scan which was unremarkable. It appears that she had a more recent HIDA scan that showed an ejection fraction at 31% through [facility]. Review of her chart also reveals that a year ago she had a CT scan that showed an umbilical hernia witha 3 cm neck. There is no mention of the size of the actual bulge or what was contained within the hernia. Nevertheless patient states that her hernia has gotten much larger and more symptomatic over the past year anyway. GENERAL:No weight loss, malaise or fevers., See HPI HEENT:Negative for frequent or significant headaches, No changes in hearing or vision, no nose bleeds or other nasal problems CARDIOVASCULAR: Negative for chest pain, Negative for leg swelling, Negative for palpitaions SKIN:Negative for lesions, rash, and itching. RESPIRATORY: Negative for cough, wheezing or shortness of breath. GASTROINTESTINAL: Negative for abdominal discomfort, blood in stools or black stools or change in bowel habits GENITOURINARY: No history of dysuria, frequency or incontinence. ENDOCRINE: None MUSCULOSKELETAL: Negative for joint pain or swelling, back pain or muscle pain. NEUROLOGIC:Negative for focal numbness or weakness, headaches and dizziness or syncope. HEMATOLOGIC/LYMPHATIC/IMMUNOLOGIC:Negative for prolonged bleeding, bruising easily or swollen nodes. I have reviewed and agree with the Review of Systems. Murray Guadarrama MD HISTORIES: PAST MEDICAL HISTORY Diagnosis Date Allergic rhinitis, cause unspecified Central perforation of tympanic membrane, bilateral Essential hypertension, benign Hypothyroidism 09/26/2015 Mixed conductive and sensorineural hearing loss Obstructive sleep apnea Other anxiety states Perforated tympanic membrane 03/29/2011 Snoring Synovitis and tenosynovitis, unspecified Tobacco abuse 03/23/2012 PAST SURGICAL HISTORY Procedure Laterality Date COLONOSCOPY SCRN NOT HIGH RISK 09/13/2020 EGD 10/25/2020 LIG/TRNSXJ FLP TUBE ABDL/VAG APPR UNI/BI Tubal ligation MYRINGOTOMY ASPIR&/EUSTACHIAN TUBE NFLTJ ANES Myringotomy/tubes NEUROPLASTY &/TRANSPOS MEDIAN NRV CARPAL TUNNE Bilateral 01/15/2019 Bilateral carpal tunnel release REDUCTION OF LARGE BREAST 04/23/2016 STEREOTACT BREAST BX EA LESION PC 09/30/2018 left stereotactic breast biopsy w/vacuum assisted core needle biopsy, specimen radiograph and marker placement ALLERGIES: Codfish [Other], Doxycycline Monohydrate, Hctz [Other], Levaquin [Levofloxacin], Meloxicam, and Peanuts MEDICATIONS: Current Outpatient Medications Medication Sig albuterol (PROVENTIL) 2.5 mg /3 mL (0.083 %) nebulizer solution Use 3 mL via nebulizer every 6 hours as needed for wheezing/shortness of breath. ALPRAZolam (XANAX) 1 mg tablet Take 1 tablet by mouth once daily as needed for anxiety for up to 30days. fexofenadine HCl (MUCINEX ALLERGY ORAL) Take by mouth. azithromycin (ZITHROMAX Z-KAINKA) 250 mg tablet Take 2 tablets day one, then, 1 tablet daily until gone. predniSONE (DELTASONE) 20 mg tablet Take 2 tablets by mouth once daily for 5 days. benzonatate (TESSALON PERLES) 100 mg capsule Take 1 capsule by mouth three times daily as needed for cough for up to 10 days. nystatin (MYCOSTATIN) 100,000 unit/mL suspension Take 5 mL by mouth four times daily for 14 days. 1tsp swish in mouth for several minutes, then swallow (or expectorate) 4 times daily until gone. loratadine (CLARITIN) 10 mg tablet Take 1 tablet by mouth once daily. citalopram (CELEXA) 40 mg tablet Take 1 tablet by mouth once daily. fluticasone (FLONASE) 50 mcg/actuation nasal spray Use 2 Sprays in each nostril once daily. Rinse mouth after use. Nebulizer Accessories misc 1 Each as directed. Nebulizer tubing and mouth piece. faxed to levothyroxine (LEVOXYL) 200 mcg tablet Take 1 tablet by mouth once daily. Take on empty stomach. For thyroid buPROPion XL (WELLBUTRIN XL) 150 mg 24 hr tablet Take 1 tablet by mouth once daily. CIPRODEX 0.3-0.1 % otic suspension Use 2 Drops in both ears as needed. 2 drops twice daily as needed. dexAMETHasone (DEXASOL) 0.1 % ophthalmic solution Use 1 Drop in both eyes every 12 hours as needed.Instill 2 drops into affected ear twice daily as needed. ondansetron (ZOFRAN) 4 mg tablet Take 1 tablet by mouth every 8 hours as needed for nausea/vomiting. Ipratropium (ATROVENT HFA) 17 mcg/actuation inhaler Inhale 2 Puffs as instructed every 6 hours. SUCRAID 8,500 unit/mL soln baclofen (LIORESAL) 10 mg tablet TAKE 1/2 TO 1 TABLET BY MOUTH TWICE A DAY NEEDED FOR SPASMS urea (CARMOL) 40 % Apply to affected area as needed. amitriptyline (ELAVIL) 25 mg tablet Take 1 tablet by mouth daily at bedtime. amLODIPine (NORVASC) 5 mg tablet Take 1 tablet by mouth once daily. furosemide (LASIX) 20 mg tablet Take 1 tablet by mouth once daily. Cholecalciferol, Vitamin D3, 125 mcg (5,000 unit) cap Take 1 capsule by mouth once daily. lisinopril (ZESTRIL, PRINIVIL) 40 mg tablet Take 1 tablet by mouth once daily. lansoprazole (PREVACID) 15 mg capsule Take 1 capsule by mouth once daily. tegaserod hydrogen maleate 6 mg tablet (ZELNORM) Take 1 tablet (6 mg) by mouth twice daily before meals. Bifidobacterium Infantis (ALIGN) 4 mg cap Take 1 capsule by mouth once daily. CPAP autoCPAP 5-15 cmH2O, mask, tubing, filters, heated humidity, lifetime supplies. Dx: TRINI Nebulizer 1 Each as needed. NEBULIZER TUBING AND SUPPLIES. DX: CHRONIC BRONCHITIS J41.1, WHEEZING R06.2. FAX TO [facility] [place] [phone] COMPOUNDED PRESCRIPTION Nebulizer for albuterol every fours as needed ICD: R06.2 Current Facility-Administered Medications Medication Dose Route Frequency perflutren lipid microspheres 1.3 mL in NaCl (PF) 0.9% 10 mL injection (DEFINITY) INTRAVENOUS DIRECTED PRN sodium chloride 0.9 % (flush) 10 mL (BD POSIFLUSH) 10 mL INTRAVENOUS DIRECTED PRN FAMILY HISTORY Problem Relation Age of Onset Coronary Artery Disease Mother PE Asthma Mother Multiple Sclerosis Mother No Known Problems Father Coronary Artery Disease Sister Coronary Artery Disease Brother None Brother Colon Cancer No Family History Social History Tobacco Use Smoking status: Former Packs/day: 0.50 Types: Cigarettes Start date: 05/29/1987 Smokeless tobacco: Never Vaping Use Vaping Use: Never used Substance Use Topics Alcohol use: No Drug use: No OBJECTIVE PHYSICAL EXAM: [facility] 09/14/2013 GENERAL: Alert, no distress, cooperative LUNGS: Lungs clear to auscultation, Good diaphragmatic excursion CARDIAC: Normal S1 and S2; no rubs, murmurs, or gallops ABDOMEN: The patient has an obese abdomen. She does have a ventral hernia. The overall size of swelling is probably at least greater than 15 cm but it is difficult to determine the actual size of thehernia because of her body habitus. She does have tenderness with palpation. No signs of incarceration or strangulation. No evidence of tenderness in the right upper quadrant. DATA: Diagnostic tests reviewed for today's visit: Most recent labs and imaging results. Murray Guadarrama MD documented in this encounterSt. [facility] [place] [facility] Miscellaneous Notes* Telephone Encounter - Ramona Nelson LPN - 07/22/2022 9:34 AM EST Patient phones requesting refills as follows: Requested Prescriptions Pending Prescriptions Disp Refills albuterol (PROVENTIL) 2.5 mg /3 mL (0.083 %) nebulizer solution Sig: Use 3 mL via nebulizer every 6 hours as needed for wheezing/shortness of breath. SABA-07/22/22 Labs-10/22/21 NOV-none med filled 10/19/21 Please review and advise. Ramona Nelson LPN documented in this encounterSt. Mary[facility] [place] [facility]02-[facility]-2023 Miscellaneous Notes* Telephone Encounter - Ramona Nelson LPN - 07/22/2022 9:33 AM EST Patient phones requesting refills as follows: Requested Prescriptions Pending Prescriptions Disp Refills ALPRAZolam (XANAX) 1 mg tablet 30 tablet 0 Sig: Take 1 tablet by mouth once daily as needed for anxiety for up to 30 days. SABA-07/22/22 Labs-10/22/21 NOV-none med filled 06/11/22 Please review and advise. Ramona Nelson LPN documented in this encounterSt. Mary[facility] [place] [facility]02-[facility]-2023 Instructions* Patient Instructions* Johanna Faith APRN.CNP - 07/22/2022 9:23 AM EST Start Zpack,take as directed. Take prednisone 40 mg daily for 5 days. May use albuterol inhaler as needed for shortness of breath or wheezing. Stay well hydrated and may continue OTC medications as needed. May use nystatin mouth rinse, 1 tsp 4 times daily to treat yeast infection on tongue. Smoking cessation encouraged. Follow up as needed. documented in this encounterSt. [facility] [place] [facility] History of Present illness Narrative* Johanna Faith APRN.CNP - 07/22/2022 9:20 AM EST This is a 61 year old female who presents today with: Patient presents with: Acute Visit: sinus and now into chest HISTORY OF PRESENT ILLNESS: Santy Raza is a 61 year old female. Patient presents with: Acute Visit: sinus and now into chest Patient of Deloris Chavez CNP here in the office for cough. Started last . Cough is productive, green mucus. Smoking 1/2 PPD. Some chills but no fever. Having SOB with activity and wheezing at times. Using mucinex and albuterol inhaler. PAST MEDICAL HISTORY: PAST MEDICAL HISTORY Diagnosis Date Allergic rhinitis, cause unspecified Central perforation of tympanic membrane, bilateral Essential hypertension, benign Hypothyroidism 09/26/2015 Mixed conductive and sensorineural hearing loss Obstructive sleep apnea Other anxiety states Perforated tympanic membrane 03/29/2011 Snoring Synovitis and tenosynovitis, unspecified Tobacco abuse 03/23/2012 PAST SURGICAL HISTORY Procedure Laterality Date COLONOSCOPY SCRN NOT HIGH RISK 09/13/2020 EGD 10/25/2020 LIG/TRNSXJ FLP TUBE ABDL/VAG APPR UNI/BI Tubal ligation MYRINGOTOMY ASPIR&/EUSTACHIAN TUBE NFLTJ ANES Myringotomy/tubes NEUROPLASTY &/TRANSPOS MEDIAN NRV CARPAL TUNNE Bilateral 01/15/2019 Bilateral carpal tunnel release REDUCTION OF LARGE BREAST 04/23/2016 STEREOTACT BREAST BX EA LESION PC 09/30/2018 left stereotactic breast biopsy w/vacuum assisted core needle biopsy, specimen radiograph and marker placement ALLERGIES Codfish [Other], Doxycycline Monohydrate, Hctz [Other], Levaquin [Levofloxacin], Meloxicam, and Peanuts MEDICATIONS Current Outpatient Medications Medication Sig loratadine (CLARITIN) 10 mg tablet Take 1 tablet by mouth once daily. citalopram (CELEXA) 40 mg tablet Take 1 tablet by mouth once daily. fluticasone (FLONASE) 50 mcg/actuation nasal spray Use 2 Sprays in each nostril once daily. Rinse mouth after use. Nebulizer Accessories misc 1 Each as directed. Nebulizer tubing and mouth piece. faxed to levothyroxine (LEVOXYL) 200 mcg tablet Take 1 tablet by mouth once daily. Take on empty stomach. For thyroid buPROPion XL (WELLBUTRIN XL) 150 mg 24 hr tablet Take 1 tablet by mouth once daily. CIPRODEX 0.3-0.1 % otic suspension Use 2 Drops in both ears as needed. 2 drops twice daily as needed. dexAMETHasone (DEXASOL) 0.1 % ophthalmic solution Use 1 Drop in both eyes every 12 hours as needed.Instill 2 drops into affected ear twice daily as needed. ondansetron (ZOFRAN) 4 mg tablet Take 1 tablet by mouth every 8 hours as needed for nausea/vomiting. Ipratropium (ATROVENT HFA) 17 mcg/actuation inhaler Inhale 2 Puffs as instructed every 6 hours. SUCRAID 8,500 unit/mL soln baclofen (LIORESAL) 10 mg tablet TAKE 1/2 TO 1 TABLET BY MOUTH TWICE A DAY NEEDED FOR SPASMS albuterol (PROVENTIL) 2.5 mg /3 mL (0.083 %) nebulizer solution Use 3 mL via nebulizer every 6 hours as needed for wheezing/shortness of breath. urea (CARMOL) 40 % Apply to affected area as needed. amitriptyline (ELAVIL) 25 mg tablet Take 1 tablet by mouth daily at bedtime. amLODIPine (NORVASC) 5 mg tablet Take 1 tablet by mouth once daily. furosemide (LASIX) 20 mg tablet Take 1 tablet by mouth once daily. Cholecalciferol, Vitamin D3, 125 mcg (5,000 unit) cap Take 1 capsule by mouth once daily. lisinopril (ZESTRIL, PRINIVIL) 40 mg tablet Take 1 tablet by mouth once daily. lansoprazole (PREVACID) 15 mg capsule Take 1 capsule by mouth once daily. tegaserod hydrogen maleate 6 mg tablet (ZELNORM) Take 1 tablet (6 mg) by mouth twice daily before meals. Bifidobacterium Infantis (ALIGN) 4 mg cap Take 1 capsule by mouth once daily. CPAP autoCPAP 5-15 cmH2O, mask, tubing, filters, heated humidity, lifetime supplies. Dx: TRINI Nebulizer 1 Each as needed. NEBULIZER TUBING AND SUPPLIES. DX: CHRONIC BRONCHITIS J41.1, WHEEZING R06.2. FAX TO [facility] [place] [phone] COMPOUNDED PRESCRIPTION Nebulizer for albuterol every fours as needed ICD: R06.2 Current Facility-Administered Medications Medication Dose Route Frequency perflutren lipid microspheres 1.3 mL in NaCl (PF) 0.9% 10 mL injection (DEFINITY) INTRAVENOUS DIRECTED PRN sodium chloride 0.9 % (flush) 10 mL (BD POSIFLUSH) 10 mL INTRAVENOUS DIRECTED PRN FAMILY HISTORY Problem Relation Age of Onset Coronary Artery Disease Mother PE Asthma Mother Multiple Sclerosis Mother No Known Problems Father Coronary Artery Disease Sister Coronary Artery Disease Brother None Brother Colon Cancer No Family History Social History Tobacco Use Smoking status: Former Packs/day: 0.50 Types: Cigarettes Start date: 05/29/1987 Smokeless tobacco: Never Vaping Use Vaping Use: Never used Substance Use Topics Alcohol use: No Drug use: No REVIEW OF SYSTEMS GENERAL: No weight loss, malaise or fevers/chills HEENT: Negative for frequent or significant headaches, No changes in hearing or vision. NECK: Negative for lumps, goiter, pain and significant neck swelling RESPIRATORY: + Cough, SOB, wheezing CARDIOVASCULAR: Negative for chest pain, leg swelling, orthopnea, or palpitations GI: No nausea, vomiting, or diarrhea/constipation. No hematochezia/melena. No heartburn or reflux symptoms. : No history of dysuria, frequency or incontinence MUSCULOSKELETAL: Negative for joint pain or swelling. SKIN: Negative for lesions, rash, and itching ENDOCRINE: Negative for cold or heat intolerance, polyuria, polydipsia and goiter NEURO: No history of headaches, syncope, paralysis, seizures or tremors MOOD: Negative for depression, anxiety, or suicidal ideation. EXAM: BP 110/72 Pulse 86 Resp 16 Wt 131.1 kg (289 lb) LMP 09/14/2013 SpO2 97% BMI 46.65 kg/m PHYSICAL EXAM: General Appearance: Well appearing, alert, in no acute distress, well-hydrated, well nourished. Skin: Skin color, texture, turgor normal, no suspicious rashes or lesions. Head: Normocephalic, no masses, lesions, tenderness or abnormalities. Eyes: Anicteric sclera. Extraocular movements are intact. . Ears: External ears normal, canals clear. TM's pearly juares. Nose/Sinuses: Nares normal, septum midline, mucosa normal, no drainage or sinus tenderness. Oropharynx: + White noted on the tongue. Consistent with thrush Neck: Supple, no adenopathy; thyroid symmetric, normal size, no bruits. Lungs: Cough, wheezing, and rhoni noted in all lobes. Heart: RRR without murmur, gallop, or rubs. No ectopy. Extremities: No deformities, edema, skin discoloration, clubbing or cyanosis. Good capillary refill. Peripheral Pulses: Normal, Capillary refill <2secs, strong peripheral pulses, Pulses palpable. Neurologic: Gait normal. Sensation grossly intact. ASSESSMENT/PLAN: 1. Mucopurulent chronic bronchitis (HCC) - ICD9: 491.1, ICD10: J41.1 (primary diagnosis) - Start zpack - Start prednisone 40 mg daily for 5 days. - Continue with albuterol inhaler and OTC medications as needed. - Recommend smoking cessation. - If symptoms do not improve may need chest xray. - AZITHROMYCIN 250 MG TABLET - PREDNISONE 20 MG TABLET - BENZONATATE 100 MG CAPSULE 2. Yeast infection, oral - ICD9: 112.0, ICD10: B37.0 - NYSTATIN 100,000 UNIT/ML ORAL SUSPENSION Follow-up as needed or sooner if symptoms get worse or do not improve. Discussed treatment plan and patient voices understanding. Patient's questions answered appropriately. Medications and potential side effects were discussed and patient voices understanding. Johanna Faith APRN.CNP This note was partially generated using [employer] recognition system. Note was reviewed for accuracy. There may be minor misspellings or grammar miscues with [employer] voice recognition. documented in this encounterSt. [facility] [facility] Miscellaneous Notes* Telephone Encounter - Ally Hanks Ma - 07/01/2022 4:29 PM EST Pt notified of results via [employer]. Ally Hanks Ma * Telephone Encounter - Johanna Faith APRN.CNP - 07/01/2022 3:57 PM EST Can you please call the patient and let her know that her repeat chest x-ray was within normal limits. Pneumonia has cleared. Please let me know if she has any questions. Thank you. Johanna Faith APRN.CNP documented in this encounterSt. Mary'[facility] [facility]01-[facility]23 History of Present illness Narrative* Jessica Kan RT(R) - 07/01/2022 10:30 AM EST Radiology Service Progress Note PATIENT NAME: Santy Raza DATE OF SERVICE: July 01, 2022 TIME: 10:23 AM PATIENT IDENTITY VERIFICATION COMPLETED USING TWO (2) IDENTIFIERS: Name and Date of confirmedby patient verbally. FALL SCREENING: Has the patient had 2 falls in the last year or 1 fall with injury or currently using an Ambulatory Assistive Device (Walker, Cane, Wheelchair, Crutches, etc.)? No PATIENT GENDER DATA: Female. status: : No status: NO. PATIENT RELEVANT IMPLANT DATA REVIEWED: Yes RADIOLOGY DEPARTMENT: General X-ray: Exam(s) Completed: Chest X-Ray PERIPHERAL IV DATA: Not applicable SIGNED BY: RT Clemente(R) July 01, 2022 10:23 AM documented in this encounterSt. Mary'[facility] [facility]01[facility]23 History of Present illness Narrative* Robbie Kyle MD - 07/01/2022 9:57 AM EST Patient presents with: Rash: Back of L upper arm x2 days HPI: Rash: Location: left posterior arm above the elbow Duration: 3 days Pruritis: Yes Pain: No Change: initially 3 dots, getting bigger Bleeding/ulceration/blister/pustule: swollen, red. No known drainage, fever, chills. Contacts with rash: No Exposure: No new soaps, detergents, fabric softeners, lotions. Outdoor exposure: No. Change in medications: No. Recent illness: No. 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 Rinse mouth after use.^Disp: 1 Each^Rfl: 11 Nebulizer Accessories misc^1 Each as directed. Nebulizer tubing and mouth piece. faxed to ^Disp: 3 Each^Rfl: 5 levothyroxine (LEVOXYL) 200 mcg tablet^Take 1 tablet by mouth once daily. Take on empty stomach. For thyroid^Disp: 30 tablet^Rfl: 11 buPROPion XL (WELLBUTRIN XL) 150 mg 24 hr tablet^Take 1 tablet by mouth once daily.^Disp: 30 tablet^Rfl: 11 CIPRODEX 0.3-0.1 % otic suspension^Use 2 Drops in both ears as needed. 2 drops twice daily as needed.^Disp: 7.5 mL^Rfl: 0 dexAMETHasone (DEXASOL) 0.1 % ophthalmic solution^Use 1 Drop in both eyes every 12 hours as needed.Instill 2 drops into affected ear twice daily as needed.^Disp: 10 mL^Rfl: 0 ondansetron (ZOFRAN) 4 mg tablet^Take 1 tablet by mouth every 8 hours as needed for nausea/vomiting.^Disp: 30 tablet^Rfl: 3 Ipratropium (ATROVENT HFA) 17 mcg/actuation inhaler^Inhale 2 Puffs as instructed every 6 hours.^Disp: 1 Inhaler^Rfl: 11 SUCRAID 8,500 unit/mL soln^^Disp: ^Rfl: baclofen (LIORESAL) 10 mg tablet^TAKE 1/2 TO 1 TABLET BY MOUTH TWICE A DAY NEEDED FOR SPASMS^Disp: ^Rfl: albuterol (PROVENTIL) 2.5 mg /3 mL (0.083 %) nebulizer solution^Use 3 mL via nebulizer every 6 hours as needed for wheezing/shortness of breath.^Disp: 6 Vial^Rfl: 5 urea (CARMOL) 40 %^Apply to affected area as needed.^Disp: 198 g^Rfl: 11 benzonatate (TESSALON PERLES) 100 mg capsule^Take 2 capsules by mouth three times daily as needed.^Disp: 30 capsule^Rfl: 0 guaiFENesin (MUCINEX) 600 mg 12 hr tablet^Take 2 tablets by mouth twice daily.^Disp: 14 tablet^Rfl:0 amitriptyline (ELAVIL) 25 mg tablet^Take 1 tablet by mouth daily at bedtime.^Disp: 90 tablet^Rfl: 3 amLODIPine (NORVASC) 5 mg tablet^Take 1 tablet by mouth once daily.^Disp: 30 tablet^Rfl: 12 furosemide (LASIX) 20 mg tablet^Take 1 tablet by mouth once daily.^Disp: 30 tablet^Rfl: 0 Cholecalciferol, Vitamin D3, 125 mcg (5,000 unit) cap^Take 1 capsule by mouth once daily.^Disp: 30 capsule^Rfl: 11 lisinopril (ZESTRIL, PRINIVIL) 40 mg tablet^Take 1 tablet by mouth once daily.^Disp: 90 tablet^Rfl:3 lansoprazole (PREVACID) 15 mg capsule^Take 1 capsule by mouth once daily.^Disp: 30 capsule^Rfl: 11 tegaserod hydrogen maleate 6 mg tablet (ZELNORM)^Take 1 tablet (6 mg) by mouth twice daily before meals.^Disp: ^Rfl: Bifidobacterium Infantis (ALIGN) 4 mg cap^Take 1 capsule by mouth once daily.^Disp: 30 capsule^Rfl:2 CPAP^autoCPAP 5-15 cmH2O, mask, tubing, filters, heated humidity, lifetime supplies. Dx: TRINI^Disp: 1 Device^Rfl: 0 Nebulizer^1 Each as needed. NEBULIZER TUBING AND SUPPLIES. DX: CHRONIC BRONCHITIS J41.1, WHEEZING R06.2. FAX TO [facility] [place] [phone]^Disp: 1 Each^Rfl: 11 COMPOUNDED PRESCRIPTION^Nebulizer for albuterol every fours as needed ICD: R06.2^Disp: 1 Device^Rfl: 0 ALLERGIES: ALLERGIES Allergen Reactions Codfish [Other] Itching Doxycycline Monohyd* Vomiting Hctz [Other] Itching Levaquin [Levofloxa* Other: See Comments Jittery nervousness Meloxicam Itching, Rash, Swelling Peanuts Itching VITALS: BP 114/72 Pulse 93 Temp 36.8 C (98.3 F) Resp 18 Wt 131.3 kg (289 lb 6.4 oz) LMP 09/14/2013 SpO2 95% BMI 46.71 kg/m PHYSICAL EXAM: GEN: pleasant, no acute distress, alert SKIN: posterior left upper arm. 7cm ill defined area of erythema and edema proximal to the olecranon. 1/2 dozen excoriated shallow ulcerations with dry flat eschar. Whitish hypertrophic plaques and xerosis bilaterally. ASSESSMENT/PLAN: 1. Rash - ICD9: 782.1, ICD10: R21 Pruritis without pain suggests allergy over cellulitis. Start - TRIAMCINOLONE ACETONIDE 0.1 % TOPICAL CREAM Follow up with signs of infection such as increasing redness, pain, swelling, purulent drainage, orfever/malaise. Robbie Kyle MD documented in this encounterSt. Mary'[facility] [facility]12[facility]27[facility]2022 Miscellaneous Notes* Telephone Encounter - Ramona Nelson LPN - 06/11/2022 11:42 AM EST Patient phones requesting refills as follows: Requested Prescriptions Pending Prescriptions Disp Refills ALPRAZolam (XANAX) 1 mg tablet 30 tablet 0 Sig: Take 1 tablet by mouth once daily as needed for anxiety for up to 30 days. SABA-05/31/22 Labs-10/22/21 NOV-none med filled 05/08/21 Please review and advise. Ramona Nelson LPN documented in this [facility]12-11-2022 Hospital Discharge instructions Patient Education 05/26/2022 17:49:11 Pneumonia (Adult) Pneumonia (Adult) Pneumonia is an infection deep within the lungs. It is in the small air sacs (alveoli). Pneumonia may be caused by a virus or bacteria. Pneumonia caused by bacteria is usually treated with an antibiotic. Severe cases may need to be treated in the hospital. Milder cases can be treated at home. Symptoms usually start to get better during the first 2 days of treatment. Home care Follow these guidelines when caring for yourself at home: Rest at home for the first 2 to 3 days, or until you feel stronger. Don t let yourself get overly tired when you go back to your activities. Stay away from cigarette smoke yours or other people s. You may use acetaminophen or ibuprofen to control fever or pain, unless another medicine was prescribed. If you have chronic liver or kidney disease, talk with your healthcare provider before using these medicines. Also talk with your provider if you ve had a stomach ulcer or gastrointestinal bleeding. Don t give aspirin to anyone younger than 18 years of age who is ill with a fever. It may causesevere liver damage. Your appetite may be poor, so a light diet is fine. Drink 6 to 8 glasses of fluids every day to make sure you are getting enough fluids. Beverages can include water, sport drinks, sodas without caffeine, juices, tea, or soup. Fluids will help loosen secretions in the lung. This will make it easier for you to cough up the phlegm (sputum). If you alsohave heart or kidney disease, check with your healthcare provider before you drink extra fluids. Take antibiotic medicine prescribed until it is all gone, even if you are feeling better after a few days. Follow-up care Follow up with your healthcare provider in the next 2 to 3 days, or as advised. This is to be sure the medicine is helping you get better. If you are 65 or older, you should get a pneumococcal vaccine and a yearly flu (influenza) shot. You should also get these vaccines if you have chronic lung disease like asthma, emphysema, or COPD. Recently, a second type of pneumonia vaccine has become available for everyone over 65 years old. This is in addition to the previous vaccine. Ask your provider about this. When to seek medical advice Call your healthcare provider right away if any of these occur: You don t get better within the first 48 hours of treatment Shortness of breath gets worse Rapid breathing (more than 25 breaths per minute) Coughing up blood Chest pain gets worse with breathing Fever of 100.4 F (38 C) or higher that doesn t get better with fever medicine Weakness, dizziness, or fainting that gets worse Thirst or dry mouth that gets worse Sinus pain, headache, or a stiff neck Chest pain not caused by coughing [id number] [employer]. [address] [place] [address], [place] [address]. All rights reserved. This information is not intended as a substitute for professional medical care. Always follow yourhealthcare professional's instructions. Follow Up Care 05/26/2022 15:54:00 With:TIMOTHY ONEAL III, MD Address: [address] [place] [address]- [phone] When:2-4 days [facility] 12-11-2022 Note Discharge Instructions Thank you for allowing [facility] to assist you with your healthcare needs. The following is importantdischarge information regarding your hospital visit. Diagnosis from Today's Visit Pneumonia Cough Dizziness What to Do Next Instructions from Your Care Team Take prednisone as prescribed. Use your antibiotics, use breathing treatments at home, return if worsening or concerning symptoms. No qualifying data available. Post Acute Orders No qualifying data available. You Need to Schedule the Following Appointments Follow Up with TIMOTHY ONEAL III, MD When Within 2-4 days Where: [address] [place] [address] [phone] Allergies Levaquin Medications Please ask your primary doctor or pharmacist before taking any other medication not listed, including over the counter drugs, herbal medications, vitamins and or supplements as they may interact withyour home medications. What How Much When Why Instructions Last Dose New doxycycline (doxycycline hyclate 100 mg oral tablet) 1 tab(s) by mouth Two (2) times a day Pneumonia Duration: 7 Days Printed Prescription Changed predniSONE (Deltasone 20mg tab (TAPER)) Changed predniSONE (predniSONE 20 mg oral tablet) 2 tab(s) by mouth Once a day Pneumonia Duration: 5 Days Printed Prescription Unchanged ALPRAZolam (Xanax 1 mg oral tablet) 1 tab(s) by mouth Two (2) times a day Unchanged amitriptyline (amitriptyline 25 mg oral tablet) 1 tab(s) by mouth Three (3) times a day Unchanged cholecalciferol (Vitamin D3 125 mcg (5000 intl units) oral capsule) Unchanged docusate (Colace 100 mg oral capsule) 1 cap by mouth Two (2) times a day as needed for as needed for constipation Unchanged levothyroxine (levothyroxine 125 mcg (0.125 mg) oral tablet) 1 tab(s) by mouth Once a day Unchanged lisinopril (lisinopril 10 mg oral tablet) 1 tab(s) by mouth Once a day Unchanged miconazole topical (miconazole 2% vaginal cream with johnny) Please take this list to your next doctor s visit. Bring all medications you take, including over the counter medications, herbals and other supplements with you to your doctor s visit. Patients and families are reminded to discard old lists and to update any records with all medication providers or retail pharmacies. Medication Leaflets prednisone (PRED lupis merline Tracy What is the most important information I should know about prednisone? You should not use prednisone if you have a fungal infection anywhere in your body. You should not stop using prednisone suddenly. Follow your doctor's instructions about tapering your dose. What is prednisone? Prednisone is a steroid that reduces inflammation in the body, and also suppresses your immune system. Prednisone is used to treat many different conditions such as hormonal disorders, skin diseases, arthritis, lupus, psoriasis, allergic conditions, ulcerative colitis, Crohn's disease, eye diseases, lung diseases, asthma, tuberculosis, blood cell disorders, kidney disorders, leukemia, lymphoma, multi ple sclerosis, organ transplant rejection, swelling from a brain tumor or injury. Prednisone may also be used for purposes not listed in this medication guide. What should I discuss with my healthcare provider before taking prednisone? You should not use prednisone if you are allergic to it, or if you have a fungal infection anywherein your body. Steroid medication can weaken your immune system, making it easier for you to get an infection or worsening an infection you already have. Tell your doctor about any illness or infection you've had within the past several weeks. Tell your doctor if you have ever had: heart problems, high blood pressure, or a heart attack; glaucoma or cataracts; herpes infection of the eyes; past or present tuberculosis; a parasite infection that causes diarrhea (such as threadworms); any illness that causes diarrhea; underactive thyroid; diabetes; a stomach ulcer, diverticulitis; a colostomy or ileostomy; osteoporosis or low bone mineral density (steroid medication can increase your risk of bone loss); low levels of calcium or potassium in your blood; cirrhosis or other liver disease; mental illness or psychosis; or a muscle disorder such as myasthenia gravis. Long-term use of steroids may lead to bone loss (osteoporosis), especially if you smoke or drink alcohol, if you do not exercise, or if you do not get enough vitamin D or calcium in your diet. It is not known whether this medicine will harm an unborn baby. Tell your doctor if you are or plan to become . You should not breastfeed while using prednisone. How should I take prednisone? Follow all directions on your prescription label and read all medication guides or instruction sheets. Your doctor may occasionally change your dose. Use the medicine exactly as directed. Prednisone is taken daily or every other day, depending on the condition being treated. You may need to take the medicine at a certain time of day. Follow your doctor's instructions about when and how often to take this medicine. Take with food if prednisone upsets your stomach. Measure liquid medicine carefully. Use the dosing syringe provided, or use a medicine dose-measuring device (not a kitchen spoon). Swallow the delayed-release tablet whole and do not crush, chew, or break it. Prednisone can weaken (suppress) your immune system, and you may get an infection more easily. Callyour doctor if you have signs of infection (fever, weakness, cold or flu symptoms, skin sores, diarrhea, frequent or recurring illness). If you have major surgery or a severe injury or infection, your prednisone dose needs may change. Make sure any doctor caring for you knows you are using this medicine. If you use this medicine long-term, you may need medical tests and vision exams. In case of emergency, wear or carry medical identification to let others know you use a steroid. You should not stop using prednisone suddenly. Follow your doctor's instructions about tapering your dose. Store at room temperature away from moisture, heat, and light. What happens if I miss a dose? Take the medicine as soon as you can, but skip the missed dose if it is almost time for your next dose. Do not take two doses at one time. What happens if I overdose? Seek emergency medical attention or call the Poison Help line at . High doses or long-term use of prednisone can lead to thinning skin, easy bruising, changes in bodyfat (especially in your face, neck, back, and waist), increased acne or facial hair, menstrual problems, impotence, or loss of interest in sex. What should I avoid while taking prednisone? Do not receive a 'live' vaccine while using prednisone. The vaccine may not work as well and may not fully protect you from disease. Live vaccines include measles, mumps, rubella (MMR), polio, rotavirus, typhoid, yellow fever, varicella (chickenpox), zoster (shingles), and nasal flu (influenza) vaccine. Avoid being near people who are sick or have infections. Call your doctor for preventive treatment if you are exposed to chickenpox or measles. These conditions can be serious or even fatal in peoplewho are using steroid medicine. Avoid drinking alcohol. What are the possible side effects of prednisone? Get emergency medical help if you have signs of an allergic reaction: hives; difficult breathing; swelling of your face, lips, tongue, or throat. Call your doctor at once if you have: muscle pain or weakness; blurred vision, tunnel vision, eye pain, or seeing halos around lights; severe depression, changes in personality, unusual thoughts or behavior; bloody or tarry stools, coughing up blood or vomit that looks like coffee grounds; swelling, rapid weight gain, feeling short of breath; irregular heartbeats; severe headache, pounding in your neck or ears; decreased adrenal gland hormones--muscle weakness, tiredness, diarrhea, nausea, menstrual changes, skin discoloration, craving salty foods, and feeling light- headed; or low potassium level--leg cramps, constipation, irregular heartbeats, fluttering in your chest, increased thirst or urination, numbness or tingling, muscle weakness or limp feeling. Prednisone can affect growth in children. Tell your doctor if your child is not growing at a normalrate while using this medicine. Common side effects may include: weight gain (especially in your face or your upper back and torso); increased appetite; mood changes, trouble sleeping; changes in your menstrual periods; problems with memory or thought; muscle or joint pain; weakness; headache, dizziness, spinning sensation; nausea, bloating, loss of appetite; slow wound healing; or acne, increased sweating, thinning skin, bruising, pinpoint spots under your skin. This is not a complete list of side effects and others may occur. Call your doctor for medical advice about side effects. You may report side effects to FDA at 6-924-OAZ-8681. What other drugs will affect prednisone? Sometimes it is not safe to use certain medications at the same time. Some drugs can affect your blood levels of other drugs you take, which may increase side effects or make the medications less effective. Tell your doctor about all your current medicines. Many drugs can affect prednisone, especially: bupropion; cyclosporine; digoxin; ketoconazole; an antibiotic; control pills or hormone replacement therapy; a diuretic or 'water pill'; insulin or oral diabetes medicine; a blood thinner--warfarin, Coumadin, Jantoven; or NSAIDs (nonsteroidal anti-inflammatory drugs)--aspirin, ibuprofen (Advil, Motrin), naproxen (Aleve), celecoxib, diclofenac, indomethacin, meloxicam, and others. This list is not complete and many other drugs may affect prednisone. This includes prescription and [id number]-dmuqjff medicines, vitamins, and herbal products. Not all possible drug interactions are listed here. Where can I get more information? Your pharmacist can provide more information about prednisone. Remember, keep this and all other medicines out of the reach of children, never share your medicines with others, and use this medication only for the indication prescribed. Every effort has been made to ensure that the information provided by [employer]. ('[employer]') is accurate, up-to-date, and complete, but no guarantee is made to that effect. Drug information contained herein may be time sensitive. [employer] information has been compiled for use by healthcare practitioners and consumers in the [place] and therefore [employer] does not warrant that uses outside of the [place] are appropriate, unless specifically indicated otherwise. [employer] drug information does not endorse drugs, diagnose patients or recommend therapy. [employer] drug information isan informational resource designed to assist licensed healthcare practitioners in caring for their p atients and/or to serve consumers viewing this service as a supplement to, and not a substitute for, the expertise, skill, knowledge and judgment of healthcare practitioners. The absence of a warningfor a given drug or drug combination in no way should be construed to indicate that the drug or drug combination is safe, effective or appropriate for any given patient. [employer] does not assume any responsibility for any aspect of healthcare administered with the aid of information [employer] provides. The information contained herein is not intended to cover all possible uses, directions, precautions, warnings, drug interactions, allergic reactions, or adverse effects. If you have questions about the drugs you are taking, check with your doctor, nurse or pharmacist. Copyright 6424-8150 [employer]. Version: 10.. Revision Date: 09/10/2018. doxycycline (oral/injection) (DOX chidi fernandes) Acticlate, Adoxa, Alodox, Avidoxy, Doryx, Mondoxyne NL, Monodox, Morgidox, Okebo, Oracea, Oraxyl, Targadox, Vibramycin What is the most important information I should know about doxycycline? You should not take this medicine if you are allergic to any tetracycline antibiotic. Children younger than 8 years old should use doxycycline only in cases of severe or life-threatening conditions. This medicine can cause permanent yellowing or graying of the teeth in children Using doxycycline during could harm the unborn baby or cause permanent tooth discoloration later in the baby's life. What is doxycycline? Doxycycline is a tetracycline antibiotic that Doxycycline is used to treat many different bacterial infections, such as acne, urinary tract infections, intestinal infections, eye infections, gonorrhea, chlamydia, periodontitis (gum disease), andothers. Doxycycline is also used to treat blemishes, bumps, and acne-like lesions caused by rosacea. Doxycycline will not treat facial redness caused by rosacea. Some forms of doxycycline are used to prevent malaria, to treat anthrax, or to treat infections caused by mites, ticks, or lice. Doxycycline may also be used for purposes not listed in this medication guide. What should I discuss with my healthcare provider before taking doxycycline? You should not take this medicine if you are allergic to doxycycline or other tetracycline antibiotics such as demeclocycline, minocycline, tetracycline, or tigecycline. Tell your doctor if you have ever had: liver disease; kidney disease; asthma or sulfite allergy; increased pressure inside your skull; or if you also take isotretinoin, seizure medicine, or a blood thinner such as warfarin (Coumadin). If you are using doxycycline to treat gonorrhea, your doctor may test you to make sure you do not also have syphilis, another sexually transmitted disease. Taking this medicine during may affect tooth and bone development in the unborn baby. Taking doxycycline during the last half of can cause permanent tooth discoloration later in the baby's life. Tell your doctor if you are or if you become . Doxycycline can make control pills less effective. Ask your doctor about using a non-hormonalbirth control (condom, diaphragm with spermicide) to prevent . Doxycycline can pass into breast milk and may affect bone and tooth development in a nursing . Do not breastfeed while you are taking doxycycline. Doxycycline can cause permanent yellowing or graying of the teeth in children younger than 8 years old. Children should use doxycycline only in cases of severe or life-threatening conditions such as anthrax or [place] spotted fever. The benefit of treating a serious condition may outweigh any risks to the child's tooth development. How should I take doxycycline? Follow all directions on your prescription label and read all medication guides or instruction sheets. Use the medicine exactly as directed. Take doxycycline with a full glass of water. Drink plenty of liquids while you are taking doxycycline. Read and carefully follow any Instructions for Use provided with your medicine. Ask your doctor or pharmacist if you do not understand these instructions. Most brands of doxycyline may be taken with food or milk if the medicine upsets your stomach. Different brands of doxycycline may have different instructions about taking them with or without food. Take Oracea on an empty stomach, at least 1 hour before or 2 hours after a meal. You may need to split a doxycycline tablet to get the correct dose. Follow your doctor's instructions. Swallow a delayed-release capsule or tablet whole. Do not crush, chew, break, or open it. Measure liquid medicine with the dosing syringe provided, or with a special dose-measuring spoon ormedicine cup. If you do not have a dose-measuring device, ask your pharmacist for one. If you take doxycycline to prevent malaria: Start taking the medicine 1 or 2 days before entering an area where malaria is common. Continue taking the medicine every day during your stay and for at least 4 weeks after you leave the area. Doxycycline is usually given by injection only if you are unable to take the medicine by mouth. A healthcare provider will give you this injection as an infusion into a vein. Use this medicine for the full prescribed length of time, even if your symptoms quickly improve. Skipping doses can increase your risk of infection that is resistant to medication. Doxycycline will not treat a viral infection such as the flu or a common cold. Store at room temperature away from moisture, heat, and light. Throw away any unused medicine after the expiration date on the label has passed. Using doxycycline can cause damage to your kidneys. What happens if I miss a dose? Take the medicine as soon as you can, but skip the missed dose if it is almost time for your next dose. Do not take two doses at one time. What happens if I overdose? Seek emergency medical attention or call the Poison Help line at . What should I avoid while taking doxycycline? Do not take iron supplements, multivitamins, calcium supplements, antacids, or laxatives within 2 hours before or after taking doxycycline. Avoid taking any other antibiotics with doxycycline unless your doctor has told you to. Doxycycline could make you sunburn more easily. Avoid sunlight or tanning beds. Wear protective clothing and use sunscreen (SPF 30 or higher) when you are outdoors. Antibiotic medicines can cause diarrhea, which may be a sign of a new infection. If you have diarrhea that is watery or bloody, call your doctor. Do not use anti-diarrhea medicine unless your doctor tells you to. What are the possible side effects of doxycycline? Get emergency medical help if you have signs of an allergic reaction (hives, difficult breathing, swelling in your face or throat) or a severe skin reaction (fever, sore throat, burning in your eyes,skin pain, red or purple skin rash that spreads and causes blistering and peeling). Seek medical treatment if you have a serious drug reaction that can affect many parts of your body.Symptoms may include: skin rash, fever, swollen glands, flu- like symptoms, muscle aches, severe weakness, unusual bruising, or yellowing of your skin or eyes. This reaction may occur several weeks after you began using doxycycline. Call your doctor at once if you have: severe stomach pain, diarrhea that is watery or bloody; throat irritation, trouble swallowing; chest pain, irregular heart rhythm, feeling short of breath; little or no urination; low white blood cell counts--fever, chills, swollen glands, body aches, weakness, pale skin, easy bruising or bleeding; increased pressure inside the skull--severe headaches, ringing in your ears, dizziness, nausea, vision problems, pain behind your eyes; or signs of liver or pancreas problems--loss of appetite, upper stomach pain (that may spread to your back), tiredness, nausea or vomiting, fast heart rate, dark urine, jaundice (yellowing of the skin or eyes). Common side effects may include: nausea, vomiting, upset stomach, loss of appetite; mild diarrhea; skin rash or itching; darkened skin color; or vaginal itching or discharge. This is not a complete list of side effects and others may occur. Call your doctor for medical advice about side effects. You may report side effects to FDA at 4-474-SQU-6981. What other drugs will affect doxycycline? Sometimes it is not safe to use certain medications at the same time. Some drugs can affect your blood levels of other drugs you take, which may increase side effects or make the medications less effective. Other drugs may affect doxycycline, including prescription and rwzc-kik-visnylt medicines, vitamins, and herbal products. Tell your doctor about all your current medicines and any medicine you start or stop using. Where can I get more information? Your pharmacist can provide more information about doxycycline. Remember, keep this and all other medicines out of the reach of children, never share your medicines with others, and use this medication only for the indication prescribed. Every effort has been made to ensure that the information provided by [employer]. ('[employer]') is accurate, up-to-date, and complete, but no guarantee is made to that effect. Drug information contained herein may be time sensitive. [employer] information has been compiled for use by healthcare practitioners and consumers in the [place] and therefore [employer] does not warrant that uses outside of the [place] are appropriate, unless specifically indicated otherwise. [employer] drug information does not endorse drugs, diagnose patients or recommend therapy. [employer] drug information isan informational resource designed to assist licensed healthcare practitioners in caring for their p atients and/or to serve consumers viewing this service as a supplement to, and not a substitute for, the expertise, skill, knowledge and judgment of healthcare practitioners. The absence of a warningfor a given drug or drug combination in no way should be construed to indicate that the drug or drug combination is safe, effective or appropriate for any given patient. [employer] does not assume any responsibility for any aspect of healthcare administered with the aid of information [employer] provides. The information contained herein is not intended to cover all possible uses, directions, precautions, warnings, drug interactions, allergic reactions, or adverse effects. If you have questions about the drugs you are taking, check with your doctor, nurse or pharmacist. Copyright 0424-4300 [employer]. Version: 21.. Revision Date: 04/19/2020. Education Materials Pneumonia (Adult) Pneumonia is an infection deep within the lungs. It is in the small air sacs (alveoli). Pneumonia may be caused by a virus or bacteria. Pneumonia caused by bacteria is usually treated with an antibiotic. Severe cases may need to be treated in the hospital. Milder cases can be treated at home. Symptoms usually start to get better during the first 2 days of treatment. Home care Follow these guidelines when caring for yourself at home: Rest at home for the first 2 to 3 days, or until you feel stronger. Don t let yourself get overly tired when you go back to your activities. Stay away from cigarette smoke yours or other people s. You may use acetaminophen or ibuprofen to control fever or pain, unless another medicine was prescribed. If you have chronic liver or kidney disease, talk with your healthcare provider before using these medicines. Also talk with your provider if you ve had a stomach ulcer or gastrointestinal bleeding. Don t give aspirin to anyone younger than 18 years of age who is ill with a fever. It may causesevere liver damage. Your appetite may be poor, so a light diet is fine. Drink 6 to 8 glasses of fluids every day to make sure you are getting enough fluids. Beverages can include water, sport drinks, sodas without caffeine, juices, tea, or soup. Fluids will help loosen secretions in the lung. This will make it easier for you to cough up the phlegm (sputum). If you alsohave heart or kidney disease, check with your healthcare provider before you drink extra fluids. Take antibiotic medicine prescribed until it is all gone, even if you are feeling better after a few days. Follow-up care Follow up with your healthcare provider in the next 2 to 3 days, or as advised. This is to be sure the medicine is helping you get better. If you are 65 or older, you should get a pneumococcal vaccine and a yearly flu (influenza) shot. You should also get these vaccines if you have chronic lung disease like asthma, emphysema, or COPD. Recently, a second type of pneumonia vaccine has become available for everyone over 65 years old. This is in addition to the previous vaccine. Ask your provider about this. When to seek medical advice Call your healthcare provider right away if any of these occur: You don t get better within the first 48 hours of treatment Shortness of breath gets worse Rapid breathing (more than 25 breaths per minute) Coughing up blood Chest pain gets worse with breathing Fever of 100.4 F (38 C) or higher that doesn t get better with fever medicine Weakness, dizziness, or fainting that gets worse Thirst or dry mouth that gets worse Sinus pain, headache, or a stiff neck Chest pain not caused by coughing [id number] [employer]. [address] [place] [address]. All rights reserved. This information is not intended as a substitute for professional medical care. Always follow yourhealthcare professional's instructions. Additional Information VACCINATE! IT SAVES LIVES! Members of the community who have not yet received the COVID-19 vaccine and would like to receive it can visit one of [facility] vaccine clinics. There are many vaccine clinic locations within the [facility]. For locations and available times, please visit [email or web address]. It is important to note that some COVID mobile vaccine clinics are held outdoors and may be canceled in rainy orstormy conditions. To learn more about pediatric vaccinations (ages 5-11), we invite you to visit the [facility] webpage. [email or web address] learn more about the COVID-19 vaccine, we invite you to visit the [facility] website for a list of frequently asked questions. [email or web address] [employer] [facility] Patient Portal Access Instructions: Stay connected with your healthcare team and access your personal medical information anytime with the [employer] Patient Portal. If you would like a full copy of your medical records please contact the [facility] Medical Records Department Friday through Friday between 8a.m. and 4:30p.m. Please follow the directions below to access the portal: 1.Access the email account you provided upon registration to the [facility].2.Look for an invitation email from [facility].3.Open the email and access the invitation link: Accept Invitation to [facility]4.Fill in the required blackman to create your account. Sign into [email or web address] with your username and password that you created in the above steps to stay up to date. You can then view a summary of results, a summary of your visits, and the ability to download your summaries to your computer or send the information securely to a physician. Remember that your healthcare information is confidential, so carefully consider who you will allow to register on the [employer] Patient Portal for access to your information. You can also access the [employer] Patient Portal on the [employer] johnny. Simply click on Health Records under [facility] and then click on the [employer] logo. HOW TO SAFELY DISPOSE OF PRESCRIPTION MEDICATIONS Please use one of the following methods to safely dispose of your unused medications. 1.Use a drug disposal kit: the drug disposal pouch allows you to safely discard your old and unuseddrugs. Ask your nurse to give you one when you are discharged.2.Visit a local take-back location: Many local pharmacies and police departments have programs that collect old and unwanted prescriptiondrugs. Call your local pharmacy or go to [email or web address] to find one close to you.3.Make use of household items: Use cat litter or old coffee grounds to dispose medications if other options arenot available. Mix your drugs with these household products, seal them in an airtight container andthrow it into the garbage. Call [facility]: [phone] to be sure your drugs can be disposed of in this way. Some medicines may require a different approach.4.Never flush your medications down the toilet. IF YOU HAVE BEEN PRESCRIBED AN OPIOIDS FOR PAIN If you have been prescribed an opioid (such as hydrocodone, oxycodone or morphine), it is critical to understand the possible side effects and risks of opioid pain medications. Even when taken as directed, opioids can have several side effects including: Tolerance, meaning you might need to take more of a medication for the same pain relief. Nausea, vomiting and/or constipation. Sleepiness, dizziness, dry mouth, confusion, depression or itching. Physical dependence, meaning you have withdrawal symptoms when a medication is stopped ? this can develop within a few days. KNOW YOUR RESPONSIBILITIES It is important to know exactly how much and how often to take the opioid pain medications you are prescribed. Never take opioids in higher amounts or more often than prescribed. Do not combine opioids with alcohol or other drugs that cause drowsiness, such as benzodiazepines, also known as benzos,including diazepam and alprazolam, muscle relaxants or sleep aids. Never sell or share prescriptionopioids. This is illegal. Store opioids in a secure place and out of reach of others (including children, family, friends and visitors). The last page(s) of this document has been signed and retained as a CHART COPY Signatures Patient Education Materials Pneumonia (Adult) Medication Leaflets prednisone, doxycycline (oral/injection) My discharge plan and instructions have been reviewed and explained to me and I,SANTY RAZA understand my current condition and have read and understand these discharge instructions. I have received a written copy of the plan/instructions. If I have questions, I am aware that I should contactmy doctor. 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 HISTORY: ORDERING SYSTEM PROVIDED HISTORY: Reason for Exam: SOB/cough/fever FINDINGS: Increased heart size may be due to portable technique. Opacification of the left lower lung is likely related to overlying soft tissue density and technique. The right lung is clear. There is no vascular congestion or pneumothorax. IMPRESSION: No visible acute process. Left base is poorly evaluated. I have personally reviewed the images of this examination and agree with the resident's findings and interpretation. Interpreted by: Lowell Keene MD Preliminary Report By: Leigh Hurley Electronically signed By Lowell Keene MD Dictated Date: 05/26/2022 5:38:03 PM Prelim Date: 05/26/2022 5:41:15 PM Sign Date: 05/26/2022 6:21:40 PM Ordering Provider: [facility]12-11-2022 Note ORIGINAL EXAMINATION: ONE XRAY VIEW OF THE CHEST 05/26/2022 5:37 pm COMPARISON: None. HISTORY: ORDERING SYSTEM PROVIDED HISTORY: Reason for Exam: SOB/cough/fever FINDINGS: Increased heart size may be due to portable technique. Opacification of the left lower lung is likely related to overlying soft tissue density and technique. The right lung is clear. There is no vascular congestion or pneumothorax. IMPRESSION: No visible acute process. Left base is poorly evaluated. I have personally reviewed the images of this examination and agree with the resident's findings and interpretation. Interpreted by: Lowell Keene MD Preliminary Report By: Leigh Hurley Electronically signed By Lowell Keene MD Dictated Date: 05/26/2022 5:38:03 PM Prelim Date: 05/26/2022 5:41:15 PM Sign Date: 05/26/2022 6:21:40 PM Ordering Provider: [facility]11-29-2022 Instructions* Patient Instructions* Deloris Chavez APRN.CNP - 05/14/2022 3:44 PM EST Start the antibiotic twice daily X 10 days. Start the prednisone -- two tabs daily X 5 days. Start the monostat. Let me know if no better/worsening. [facility] History of Present illness Narrative* Deloris Chavez APRN.CNP - 05/14/2022 3:20 PM EST 61 year old female with c/o URI sx since last office visit. Sore throat: No. Runny/stuffy nose: No. Postnasal drip: Yes. Throat clearing: Yes. Sinus pain/ pressure: No. Teeth pain: No. Headache No. Body aches No. Ear pain: No. Cough: Yes. Production: Yes. Sometimes yellow and sometimes green. Fever: No. Hx asthma No. Hx pneumonia No. Smoker: Yes. OTC meds tried: mucinex, using nebulizer. Treated w/ macrobid for UTI. Sensitivity shows intermedicate coverage. Symptoms actually improved. Thinks that she has a yeast infection. Has burning and itching. ACTIVE PROBLEM LIST Allergic Rhinitis Essential Hypertension, Benign Adjustment Disorder With Depressed Mood Tobacco Abuse Hyperlipidemia Ldl Goal <130 Spondylolisthesis of Lumbar Region Disabling Back Pain Trini (Obstructive Sleep Apnea) Hypothyroidism Morbid Obesity Due to Excess Calories (Hcc) Ddd (Degenerative Disc Disease), Lumbar Spondylosis of Lumbar Region Without Myelopathy Or Radiculopathy Gerd Without Esophagitis Mucopurulent Chronic Bronchitis (Hcc) Osteoarthritis of Spine With Radiculopathy, Lumbar Region Tympanic Membrane Perforation, Right Chronic Bilateral Thoracic Back Pain Shortness of Breath Tinea Pedis of Both Feet Generalized Anxiety Disorder With Panic Attacks Ddd (Degenerative Disc Disease), Cervical Vitamin D Deficiency Stress Incontinence Cervical Radiculopathy Epigastric Pain Abdominal Bloating Medication Management Irritable Bowel Syndrome Current Outpatient Medications Medication Sig Dispense Refill ALPRAZolam (XANAX) 1 mg tablet Take 1 tablet by mouth once daily as needed for anxiety for up to 30days. 30 tablet 0 nitrofurantoin monohydrate and macrocrystal (MACROBID) 100 mg capsule Take 1 capsule by mouth twicedaily with meals for 7 days. 14 capsule 0 loratadine (CLARITIN) 10 mg tablet Take 1 tablet by mouth once daily. 30 tablet 11 citalopram (CELEXA) 40 mg tablet Take 1 tablet by mouth once daily. 30 tablet 5 fluticasone (FLONASE) 50 mcg/actuation nasal spray Use 2 Sprays in each nostril once daily. Rinse mouth after use. 1 Each 11 Nebulizer Accessories [facility] [place] Each as directed. Nebulizer tubing and mouth piece. faxed to 3 Each 5 levothyroxine (LEVOXYL) 200 mcg tablet Take 1 tablet by mouth once daily. Take on empty stomach. For thyroid 30 tablet 11 buPROPion XL (WELLBUTRIN XL) 150 mg 24 hr tablet Take 1 tablet by mouth once daily. 30 tablet 11 CIPRODEX 0.3-0.1 % otic suspension Use 2 Drops in both ears as needed. 2 drops twice daily as needed. 7.5 mL 0 dexAMETHasone (DEXASOL) 0.1 % ophthalmic solution Use 1 Drop in both eyes every 12 hours as needed.Instill 2 drops into affected ear twice daily as needed. 10 mL 0 ondansetron (ZOFRAN) 4 mg tablet Take 1 tablet by mouth every 8 hours as needed for nausea/vomiting. 30 tablet 3 Ipratropium (ATROVENT HFA) 17 mcg/actuation inhaler Inhale 2 Puffs as instructed every 6 hours. 1 Inhaler 11 SUCRAID 8,500 unit/mL soln baclofen (LIORESAL) 10 mg tablet TAKE 1/2 TO 1 TABLET BY MOUTH TWICE A DAY NEEDED FOR SPASMS albuterol (PROVENTIL) 2.5 mg /3 mL (0.083 %) nebulizer solution Use 3 mL via nebulizer every 6 hours as needed for wheezing/shortness of breath. 6 Vial 5 urea (CARMOL) 40 % Apply to affected area as needed. 198 g 11 benzonatate (TESSALON PERLES) 100 mg capsule Take 2 capsules by mouth three times daily as needed. 30 capsule 0 guaiFENesin (MUCINEX) 600 mg 12 hr tablet Take 2 tablets by mouth twice daily. 14 tablet 0 amitriptyline (ELAVIL) 25 mg tablet Take 1 tablet by mouth daily at bedtime. 90 tablet 3 amLODIPine (NORVASC) 5 mg tablet Take 1 tablet by mouth once daily. 30 tablet 12 furosemide (LASIX) 20 mg tablet Take 1 tablet by mouth once daily. 30 tablet 0 Cholecalciferol, Vitamin D3, 125 mcg (5,000 unit) cap Take 1 capsule by mouth once daily. 30 capsule 11 lisinopril (ZESTRIL, PRINIVIL) 40 mg tablet Take 1 tablet by mouth once daily. 90 tablet 3 lansoprazole (PREVACID) 15 mg capsule Take 1 capsule by mouth once daily. 30 capsule 11 tegaserod hydrogen maleate 6 mg tablet (ZELNORM) Take 1 tablet (6 mg) by mouth twice daily before meals. Bifidobacterium Infantis (ALIGN) 4 mg cap Take 1 capsule by mouth once daily. 30 capsule 2 CPAP autoCPAP 5-15 cmH2O, mask, tubing, filters, heated humidity, lifetime supplies. Dx: TRINI 1 Device 0 Nebulizer 1 Each as needed. NEBULIZER TUBING AND SUPPLIES. DX: CHRONIC BRONCHITIS J41.1, WHEEZING R06.2. FAX TO [facility] [place] [phone] 1 Each 11 COMPOUNDED PRESCRIPTION Nebulizer for albuterol every fours as needed ICD: R06.2 1 Device 0 Current Facility-Administered Medications Medication Dose Route Frequency Provider Last Rate Last Admin perflutren lipid microspheres 1.3 mL in NaCl (PF) 0.9% 10 mL injection (DEFINITY) INTRAVENOUS DIRECTED PRN Deloris Chavez APRN.CNP sodium chloride 0.9 % (flush) 10 mL (BD POSIFLUSH) 10 mL INTRAVENOUS DIRECTED PRN Deloris Chavez APRN.KHURRAM OBJECTIVE: BP 138/82 Pulse 88 Resp 18 LMP 09/14/2013 SpO2 92% General Appearance: Well appearing, alert, in no acute distress, well-hydrated, well nourished.. Skin: Skin color, texture, turgor normal, no suspicious rashes or lesions. Head: Normocephalic, no masses, lesions, tenderness or abnormalities. Eyes: Anicteric sclera. Extraocular movements are intact. . Ears: External ears normal, canals clear, Normal TMs bilaterally. Oropharynx: Lips, mucosa, and tongue normal, teeth and gums normal, oropharynx w/ some erythema. Neck: Supple, no adenopathy Lungs: Lungs clear to auscultation. No wheezing, rhonchi, rales. + loose and forceful cough. Heart: RRR without murmur, gallop, or rubs. No ectopy. Neurologic: Gait normal. ASSESSMENT/PLAN: 1. Bronchitis - ICD9: 490, ICD10: J40 (primary diagnosis) Start cefdinir. Prednisone burst. Continue mucinex. Stay well hydrated. Notify provider if no better/worsening. - CEFDINIR 300 MG CAPSULE - PREDNISONE 20 MG TABLET 2. Candidiasis - ICD9: 112.9, ICD10: B37.9 - MICONAZOLE NITRATE 2 % VAGINAL CREAM Discussed treatment plan and patient voices understanding. Patient's questions answered appropriately. Medications and potential side effects were discussed and patient voices understanding. Return to the office as scheduled or as needed for worsening/no improvement. Deloris Chavez APRN.KHURRAM documented in [facility] Miscellaneous Notes* Telephone Encounter - Jose Summers LPN - 05/14/2022 9:47 AM EST Pt notified. Appt scheduled. Jose Summers LPN * Telephone Encounter - Curtis Ryan MD - 05/13/2022 4:54 PM EST Given shortness of breath and wheezing probably needs relooked at here or urgent care. * Telephone Encounter - Jose Summers LPN - 05/13/2022 4:00 PM EST TC to pt, she states sx started on 05/07 with nasal drainage and progressed into her chest. She c/ochest tightness, productive cough with yellowish/greenish sputum, +shortness of breath, +wheezing. Pt denies fever, but states she has the chills. She has been using otc mucinex. She has also been using her nebulizer q4hrs. She has had tessalon perles in the past which helped, but does not have anyright now. Jose Summers LPN * Telephone Encounter - Curtis Ryan MD - 05/13/2022 3:18 PM EST Most of what we are seeing right now, even bronchitis is viral. When did uri symptoms start. We usually don't treat these infections with antibiotics unless worsening or not improving. Let me know * Telephone Encounter - Rosio Mcneil RN - 05/13/2022 3:15 PM EST Patient calls and notified of results. Patient states that her urinary frequency and urinary symptoms are gone. Patient reports that she still feels terrible otherwise. Patient states that her sinuses are draining and it has gone into her chest. Patient reports that she is achy. Patient had a covid test on 05/08/2022 which was negative. Patient states that she thinks that she has bronchitis which she gets every year in May. Please review and advise, Rosio Mcneil RN * Telephone Encounter - Alecia Kumar RN - 05/13/2022 3:07 PM EST left for patient to call PCP office for provider's message below. Alecia Kumar RN * Telephone Encounter - Curtis Ryan MD - 05/13/2022 2:17 PM EST Urine does show a uti. Her macrobid is intermediate for sensitivity. How is she feeling? documented in [facility] encounter[facility] Instructions* Patient Instructions* Deloris Chavez APRN.CNP - 05/08/2022 9:20 AM EST Start the macrobid -- twice daily X 7 days. Increase fluids. documented in this encounterSt[facility] History of Present illness Narrative* Deloris Chavez APRN.CNP - 05/08/2022 9:07 AM EST 61 year old female with c/o of urinary symptoms X 3 days. Frequency: Yes. Urgency: Yes. Dysuria: No. Hematuria: No. Urine leakage: Yes. Fever/Chills: Yes. Abdominal Pain: Yes. Back Pain: Yes. Nausea/vomiting: No. Frequency UTIs: No. Vaginal symptoms: No. : No. URI symptoms. Scratchy throat. Itchy ears. Not much head congestion. No fan/body aches. No n/v/d. Needs refills of xanax. Refers that she uses as needed. Up to date w/ tox screen. ACTIVE PROBLEM LIST Allergic Rhinitis Essential Hypertension, Benign Adjustment Disorder With Depressed Mood Tobacco Abuse Hyperlipidemia Ldl Goal <130 Spondylolisthesis of Lumbar Region Disabling Back Pain Trini (Obstructive Sleep Apnea) Hypothyroidism Morbid Obesity Due to Excess Calories (Hcc) Ddd (Degenerative Disc Disease), Lumbar Spondylosis of Lumbar Region Without Myelopathy Or Radiculopathy Gerd Without Esophagitis Mucopurulent Chronic Bronchitis (Hcc) Osteoarthritis of Spine With Radiculopathy, Lumbar Region Tympanic Membrane Perforation, Right Chronic Bilateral Thoracic Back Pain Shortness of Breath Tinea Pedis of Both Feet Generalized Anxiety Disorder With Panic Attacks Ddd (Degenerative Disc Disease), Cervical Vitamin D Deficiency Stress Incontinence Cervical Radiculopathy Epigastric Pain Abdominal Bloating Medication Management Irritable Bowel Syndrome Current Outpatient Medications Medication Sig Dispense Refill loratadine (CLARITIN) 10 mg tablet Take 1 tablet by mouth once daily. 30 tablet 11 citalopram (CELEXA) 40 mg tablet Take 1 tablet by mouth once daily. 30 tablet 5 fluticasone (FLONASE) 50 mcg/actuation nasal spray Use 2 Sprays in each nostril once daily. Rinse mouth after use. 1 Each 11 Nebulizer Accessories mis 1 Each as directed. Nebulizer tubing and mouth piece. faxed to 3 Each 5 levothyroxine (LEVOXYL) 200 mcg tablet Take 1 tablet by mouth once daily. Take on empty stomach. For thyroid 30 tablet 11 buPROPion XL (WELLBUTRIN XL) 150 mg 24 hr tablet Take 1 tablet by mouth once daily. 30 tablet 11 ondansetron (ZOFRAN) 4 mg tablet Take 1 tablet by mouth every 8 hours as needed for nausea/vomiting. 30 tablet 3 norethindrone (AYGESTIN) 5 mg tablet Take 0.5 tablets by mouth once daily. 45 tablet 0 Ipratropium (ATROVENT HFA) 17 mcg/actuation inhaler Inhale 2 Puffs as instructed every 6 hours. 1 Inhaler 11 baclofen (LIORESAL) 10 mg tablet TAKE 1/2 TO 1 TABLET BY MOUTH TWICE A DAY NEEDED FOR SPASMS albuterol (PROVENTIL) 2.5 mg /3 mL (0.083 %) nebulizer solution Use 3 mL via nebulizer every 6 hours as needed for wheezing/shortness of breath. 6 Vial 5 urea (CARMOL) 40 % Apply to affected area as needed. 198 g 11 amitriptyline (ELAVIL) 25 mg tablet Take 1 tablet by mouth daily at bedtime. 90 tablet 3 amLODIPine (NORVASC) 5 mg tablet Take 1 tablet by mouth once daily. 30 tablet 12 furosemide (LASIX) 20 mg tablet Take 1 tablet by mouth once daily. 30 tablet 0 Cholecalciferol, Vitamin D3, 125 mcg (5,000 unit) cap Take 1 capsule by mouth once daily. 30 capsule 11 lisinopril (ZESTRIL, PRINIVIL) 40 mg tablet Take 1 tablet by mouth once daily. 90 tablet 3 lansoprazole (PREVACID) 15 mg capsule Take 1 capsule by mouth once daily. 30 capsule 11 tegaserod hydrogen maleate 6 mg tablet (ZELNORM) Take 1 tablet (6 mg) by mouth twice daily before meals. Bifidobacterium Infantis (ALIGN) 4 mg cap Take 1 capsule by mouth once daily. 30 capsule 2 CPAP autoCPAP 5-15 cmH2O, mask, tubing, filters, heated humidity, lifetime supplies. Dx: TRINI 1 Device 0 Nebulizer 1 Each as needed. NEBULIZER TUBING AND SUPPLIES. DX: CHRONIC BRONCHITIS J41.1, WHEEZING R06.2. FAX TO [facility] [place] [phone] 1 Each 11 COMPOUNDED PRESCRIPTION Nebulizer for albuterol every fours as needed ICD: R06.2 1 Device 0 CIPRODEX 0.3-0.1 % otic suspension Use 2 Drops in both ears as needed. 2 drops twice daily as needed. 7.5 mL 0 dexAMETHasone (DEXASOL) 0.1 % ophthalmic solution Use 1 Drop in both eyes every 12 hours as needed.Instill 2 drops into affected ear twice daily as needed. 10 mL 0 SUCRAID 8,500 unit/mL soln benzonatate (TESSALON PERLES) 100 mg capsule Take 2 capsules by mouth three times daily as needed. 30 capsule 0 guaiFENesin (MUCINEX) 600 mg 12 hr tablet Take 2 tablets by mouth twice daily. 14 tablet 0 Current Facility-Administered Medications Medication Dose Route Frequency Provider Last Rate Last Admin perflutren lipid microspheres 1.3 mL in NaCl (PF) 0.9% 10 mL injection (DEFINITY) INTRAVENOUS DIRECTED PRN Deloris Chavez APRN.CONTENT MANAGEMENT CONSULTANT sodium chloride 0.9 % (flush) 10 mL (BD POSIFLUSH) 10 mL INTRAVENOUS DIRECTED PRN Deloris Chavez APRN.KHURRAM General Appearance: Well appearing, alert, in no acute distress, well-hydrated, well nourished.. Skin: Skin color, texture, turgor normal, no suspicious rashes or lesions. Head: Normocephalic, no masses, lesions, tenderness or abnormalities. Eyes: Anicteric sclera. Extraocular movements are intact. Ears: normal Oropharynx: mild erythema Lungs: Lungs clear to auscultation. No wheezing, rhonchi, rales. Heart: RRR without murmur, gallop, or rubs. No ectopy. Abdomen: Abdomen soft, non-tender. No masses, organomegaly. No CVA tenderness. Neurologic: Gait normal. ASSESSMENT/PLAN: 1. Acute cystitis without hematuria - ICD9: 595.0, ICD10: N30.00 (primary diagnosis) Urine dip w/ + blood and + leuks. Will go ahead and start treatment. Push fluids. Send urine for culture. - URINE CULTURE - NITROFURANTOIN MONOHYDRATE & MACROCRYSTAL 100 MG ORAL CAP 2. UTI symptoms - ICD9: 788.99, ICD10: R39.9 As above. - UA DIP, URINE (POC) - URINE CULTURE 3. Generalized anxiety disorder with panic attacks - ICD9: 300.02, 300.01, ICD10: F41.1, F41.0 Helps patient with functionality and quality of life. Refill: - ALPRAZOLAM 1 MG TABLET 4. Symptoms of upper respiratory infection (URI) - ICD9: 786.09, ICD10: R09.89 Symptoms just started. Will go ahead and get covid swab. - COVID WITH FLUA+B, ROUTINE Discussed treatment plan and patient voices understanding. Patient's questions answered appropriately. Medications and potential side effects were discussed and patient voices understanding. Return to the office as scheduled or as needed for worsening/no improvement. Deloris Chavez APRN.CONTENT MANAGEMENT CONSULTANT documented in this encounterSt. [facility] [facility] Miscellaneous Notes* Telephone Encounter - Jose Summers LPN - 04/26/2022 9:53 AM EST Per message on 02/02/2022. Order was printed and faxed to the number on the rx ([phone]). * Telephone Encounter - Curtis Ryan MD - 04/25/2022 1:58 PM EST Printed. * Telephone Encounter - Genny Garza Ma - 04/25/2022 12:54 PM EST Jose/Deloris - There's an Rx in there already that was done for tubing on 02/04/22. I do not see any notes on this or if this was done? Can you please review. Genny Garza Ma documented in this encounterSt. [facility] [facility]10[facility]28[facility] History of Present illness Narrative* Yarely Galvan PA-C - 04/12/2022 5:04 PM EDT Images from the original note were not included. This note was created using Maiyetter. Subjective Santy Raza is a 61 year old female. HPI Patient presents with a rash on her right elbow for a week. She states is very itchy. She has scratched it raw. She had a similar rash on her thigh a few months ago and was treated with some steroids. Denies history of eczema or psoriasis. No new soaps, lotions or detergent. She thought maybe she was bit by something. She did not see anything actually bite her.no fevers or chills. Review of Systems Constitutional: Negative. HENT: Negative. Respiratory: Negative. Cardiovascular: Negative. Gastrointestinal: Negative. Skin: Positive for rash. All other systems reviewed and are negative. PAST MEDICAL HISTORY Diagnosis Date Allergic rhinitis, cause unspecified Central perforation of tympanic membrane, bilateral Essential hypertension, benign Hypothyroidism 09/26/2015 Mixed conductive and sensorineural hearing loss Obstructive sleep apnea Other anxiety states Perforated tympanic membrane 03/29/2011 Snoring Synovitis and tenosynovitis, unspecified Tobacco abuse 03/23/2012 Current Outpatient Medications Medication Sig Dispense Refill loratadine (CLARITIN) 10 mg tablet Take 1 tablet by mouth once daily. 30 tablet 11 ALPRAZolam (XANAX) 1 mg tablet Take 1 tablet by mouth once daily as needed for anxiety for up to 30days. 30 tablet 0 citalopram (CELEXA) 40 mg tablet Take 1 tablet by mouth once daily. 30 tablet 5 fluticasone (FLONASE) 50 mcg/actuation nasal spray Use 2 Sprays in each nostril once daily. Rinse mouth after use. 1 Each 11 Nebulizer Accessories misc 1 Each as directed. Nebulizer tubing and mouth piece. faxed to 3 Each 5 levothyroxine (LEVOXYL) 200 mcg tablet Take 1 tablet by mouth once daily. Take on empty stomach. For thyroid 30 tablet 11 buPROPion XL (WELLBUTRIN XL) 150 mg 24 hr tablet Take 1 tablet by mouth once daily. 30 tablet 11 CIPRODEX 0.3-0.1 % otic suspension Use 2 Drops in both ears as needed. 2 drops twice daily as needed. 7.5 mL 0 dexAMETHasone (DEXASOL) 0.1 % ophthalmic solution Use 1 Drop in both eyes every 12 hours as needed.Instill 2 drops into affected ear twice daily as needed. 10 mL 0 ondansetron (ZOFRAN) 4 mg tablet Take 1 tablet by mouth every 8 hours as needed for nausea/vomiting. 30 tablet 3 Ipratropium (ATROVENT HFA) 17 mcg/actuation inhaler Inhale 2 Puffs as instructed every 6 hours. 1 Inhaler 11 SUCRAID 8,500 unit/mL soln baclofen (LIORESAL) 10 mg tablet TAKE 1/2 TO 1 TABLET BY MOUTH TWICE A DAY NEEDED FOR SPASMS albuterol (PROVENTIL) 2.5 mg /3 mL (0.083 %) nebulizer solution Use 3 mL via nebulizer every 6 hours as needed for wheezing/shortness of breath. 6 Vial 5 urea (CARMOL) 40 % Apply to affected area as needed. 198 g 11 benzonatate (TESSALON PERLES) 100 mg capsule Take 2 capsules by mouth three times daily as needed. 30 capsule 0 guaiFENesin (MUCINEX) 600 mg 12 hr tablet Take 2 tablets by mouth twice daily. 14 tablet 0 amitriptyline (ELAVIL) 25 mg tablet Take 1 tablet by mouth daily at bedtime. 90 tablet 3 amLODIPine (NORVASC) 5 mg tablet Take 1 tablet by mouth once daily. 30 tablet 12 Cholecalciferol, Vitamin D3, 125 mcg (5,000 unit) cap Take 1 capsule by mouth once daily. 30 capsule 11 lisinopril (ZESTRIL, PRINIVIL) 40 mg tablet Take 1 tablet by mouth once daily. 90 tablet 3 lansoprazole (PREVACID) 15 mg capsule Take 1 capsule by mouth once daily. 30 capsule 11 tegaserod hydrogen maleate 6 mg tablet (ZELNORM) Take 1 tablet (6 mg) by mouth twice daily before meals. CPAP autoCPAP 5-15 cmH2O, mask, tubing, filters, heated humidity, lifetime supplies. Dx: TRINI 1 Device 0 Nebulizer 1 Each as needed. NEBULIZER TUBING AND SUPPLIES. DX: CHRONIC BRONCHITIS J41.1, WHEEZING R06.2. FAX TO [facility] [place] [phone] 1 Each 11 COMPOUNDED PRESCRIPTION Nebulizer for albuterol every fours as needed ICD: R06.2 1 Device 0 methylPREDNISolone (MEDROL, KANIKA,) 4 mg Dose-Pack Follow dosing instructions, take with food. 21 tablet 0 mupirocin (BACTROBAN) 2 % ointment Apply to affected area three times daily for 5 days. 22 g 0 norethindrone (AYGESTIN) 5 mg tablet Take 0.5 tablets by mouth once daily. 45 tablet 0 furosemide (LASIX) 20 mg tablet Take 1 tablet by mouth once daily. 30 tablet 0 Bifidobacterium Infantis (ALIGN) 4 mg cap Take 1 capsule by mouth once daily. 30 capsule 2 Current Facility-Administered Medications Medication Dose Route Frequency Provider Last Rate Last Admin perflutren lipid microspheres 1.3 mL in NaCl (PF) 0.9% 10 mL injection (DEFINITY) INTRAVENOUS DIRECTED PRN Deloris Chavez APRN.KHURRAM sodium chloride 0.9 % (flush) 10 mL (BD POSIFLUSH) 10 mL INTRAVENOUS DIRECTED PRN Deloris Chavez APRN.KHURRAM PAST SURGICAL HISTORY Procedure Laterality Date COLONOSCOPY SCRN NOT HIGH RISK 09/13/2020 EGD 10/25/2020 LIG/TRNSXJ FLP TUBE ABDL/VAG APPR UNI/BI Tubal ligation MYRINGOTOMY ASPIR&/EUSTACHIAN TUBE NFLTJ ANES Myringotomy/tubes NEUROPLASTY &/TRANSPOS MEDIAN NRV CARPAL TUNNE Bilateral 01/15/2019 Bilateral carpal tunnel release REDUCTION OF LARGE BREAST 04/23/2016 STEREOTACT BREAST BX EA LESION PC 09/30/2018 left stereotactic breast biopsy w/vacuum assisted core needle biopsy, specimen radiograph and marker placement FAMILY HISTORY Problem Relation Age of Onset Coronary Artery Disease Mother PE Asthma Mother Multiple Sclerosis Mother No Known Problems Father Coronary Artery Disease Sister Coronary Artery Disease Brother None Brother Colon Cancer No Family History Social History Tobacco Use Smoking status: Former Packs/day: 0.50 Types: Cigarettes Start date: 05/29/1987 Smokeless tobacco: Never Vaping Use Vaping Use: Never used Substance Use Topics Alcohol use: No Drug use: No Objective BP 138/76 Pulse 90 Temp 36.4 C (97.5 F) Resp 18 Wt 129.3 kg (285 lb) LMP 09/14/2013 SpO2 96% BMI 46.00 kg/m Physical Exam Vitals reviewed. Constitutional: Appearance: Normal appearance. HENT: Head: Normocephalic and atraumatic. Skin: General: Skin is warm and dry. Comments: Patient has scabbed areas over the left elbow. No surrounding erythema. Some dry skin over the olecranon. Neurological: Mental Status: She is alert. Assessment and Plan ASSESSMENT/PLAN: 1. Rash - ICD9: 782.1, ICD10: R21 Dry skin dermatitis/eczema likely. We will treat with Medrol Dosepak and mupirocin. We will have her follow-up with PCP if not improving. Patient agreeable. Yarely Galvan PA-C documented in this encounterSt. [facility] [place] [facility]10[facility] Miscellaneous Notes* Telephone Encounter - Genny Garza Ma - 04/05/2022 8:26 AM EDT See pt message. Rx pended. Genny Garza Ma * Telephone Encounter - Genny Garza Ma - 04/04/2022 8:24 AM EDT Pt notified office has never given Rx. Genny Garza Ma documented in this encounterSt. [facility] [place] [facility]10-20-2022 Miscellaneous Notes* Telephone Encounter - Genny Garza Ma - 04/04/2022 8:27 AM EDT Imm updated. Genny Garza Ma documented in this encounterSt. [facility] [place] [facility]10-07-2022 Miscellaneous Notes* Telephone Encounter - Ramona Nelson LPN - 03/22/2022 8:11 AM EDT Patient phones requesting refills as follows: Requested Prescriptions Pending Prescriptions Disp Refills citalopram (CELEXA) 40 mg tablet 30 tablet 5 Sig: Take 1 tablet by mouth once daily. SABA-01/16/22 Labs-10/05/21 NOV-none med filled 09/19/21 Please review and advise. Ramona Nelson LPN documented in this encounterSt. Mary'[facility] [place] [facility]09-26-20[facility] History of Present illness Narrative* Dony Ball RN - 03/11/2022 9:48 AM EDT RADIOLOGY SERVICE PROGRESS NOTE SERVICE DATE: 03/11/2022 SERVICE TIME: 814 PATIENT IDENTITY VERIFICATION COMPLETED USING TWO (2) METHODS: Patient confirmed name and Date of verbally. ALLERGIES REVIEWED: ADI MEDICATIONS REVIEWED BY: ADI PROCEDURE TYPE: NM STRESS: 0.4 mg of Lexiscan was administered IV at 0828 over 10 Seconds by BECKIE Cotter Reversal agent used:NA LOT [id number] EXP 03/16/2025 IV SITE: IV palced by nuclear tecnologist POST EXAM PIV STATUS: Discontinued by Production Team Leader PATIENT DISCHARGED TO: Nuclear Medicine Department for post stress imaging A Diagnostic radioactive procedure has taken place, with no further precautions necessary other than routine body substance precautions. More information regarding radiation safety can be found usingthis link: [email or web address] SIGNATURE: DONY BALL RN PATIENT NAME: Santy Raza DATE: 03/11/22 TIME: 9:49 AM documented in this encounterSt. Mary'[facility] [place] [facility]08-03-2022 Instructions* Patient Instructions* Deloris Chavez APRN.CNP - 01/16/2022 11:50 AM EDT 1. Start the medrol dose pack. 2. Start the keflex twice daily X 1 week. 3. Watch for signs of worsening infection (increased redness, streaking, fever/chills). documented in this encounterSt. [facility] [facility]08-[facility] History of Present illness Narrative* Deloris Chavez APRN.CNP - 01/16/2022 11:42 AM EDT This is a 61 year old female who presents today with: Patient presents with: Rash: outer R thigh x 4 days, itchy HISTORY OF PRESENT ILLNESS: Santy Raza is a 61 year old female. Patient presents with: Rash: outer R thigh x 4 days, itchy Pt presents today with complaint of a rash on her right thigh. It started approximately 4 days ago. She reports that it started with what appeared to be a mosquito bite. Reports that it was very itchy and she did scratch. She now has an area that continues to be itchy, red, and increased warmth. No fevers or chills. She reports that she was recently in the emergency room with a similar reaction on her right upper arm. She was treated with a Medrol Dosepak, which was effective. PAST MEDICAL HISTORY: PAST MEDICAL HISTORY Diagnosis Date Allergic rhinitis, cause unspecified Central perforation of tympanic membrane, bilateral Essential hypertension, benign Hypothyroidism 09/26/2015 Mixed conductive and sensorineural hearing loss Obstructive sleep apnea Other anxiety states Perforated tympanic membrane 03/29/2011 Snoring Synovitis and tenosynovitis, unspecified Tobacco abuse 03/23/2012 PAST SURGICAL HISTORY Procedure Laterality Date COLONOSCOPY SCRN NOT HIGH RISK 09/13/2020 EGD 10/25/2020 LIG/TRNSXJ FLP TUBE ABDL/VAG APPR UNI/BI Tubal ligation MYRINGOTOMY ASPIR&/EUSTACHIAN TUBE NFLTJ ANES Myringotomy/tubes NEUROPLASTY &/TRANSPOS MEDIAN NRV CARPAL TUNNE Bilateral 01/15/2019 Bilateral carpal tunnel release REDUCTION OF LARGE BREAST 04/23/2016 STEREOTACT BREAST BX EA LESION PC 09/30/2018 left stereotactic breast biopsy w/vacuum assisted core needle biopsy, specimen radiograph and marker placement ALLERGIES Codfish [Other], Doxycycline Monohydrate, Hctz [Other], Levaquin [Levofloxacin], Meloxicam, and Peanuts MEDICATIONS Current Outpatient Medications Medication Sig buPROPion XL (WELLBUTRIN XL) 150 mg 24 hr tablet Take 1 tablet by mouth once daily. CIPRODEX 0.3-0.1 % otic suspension Use 2 Drops in both ears as needed. 2 drops twice daily as needed. dexAMETHasone (DEXASOL) 0.1 % ophthalmic solution Use 1 Drop in both eyes every 12 hours as needed.Instill 2 drops into affected ear twice daily as needed. ondansetron (ZOFRAN) 4 mg tablet Take 1 tablet by mouth every 8 hours as needed for nausea/vomiting. ALPRAZolam (XANAX) 1 mg tablet Take 1 tablet by mouth once daily as needed for anxiety for up to 30days. norethindrone (AYGESTIN) 5 mg tablet Take 0.5 tablets by mouth once daily. Ipratropium (ATROVENT HFA) 17 mcg/actuation inhaler Inhale 2 Puffs as instructed every 6 hours. levothyroxine (LEVOXYL) 200 mcg tablet Take 1 tablet by mouth once daily. Take on empty stomach. For thyroid SUCRAID 8,500 unit/mL soln baclofen (LIORESAL) 10 mg tablet TAKE 1/2 TO 1 TABLET BY MOUTH TWICE A DAY NEEDED FOR SPASMS albuterol (PROVENTIL) 2.5 mg /3 mL (0.083 %) nebulizer solution Use 3 mL via nebulizer every 6 hours as needed for wheezing/shortness of breath. urea (CARMOL) 40 % Apply to affected area as needed. benzonatate (TESSALON PERLES) 100 mg capsule Take 2 capsules by mouth three times daily as needed. guaiFENesin (MUCINEX) 600 mg 12 hr tablet Take 2 tablets by mouth twice daily. amitriptyline (ELAVIL) 25 mg tablet Take 1 tablet by mouth daily at bedtime. citalopram (CELEXA) 40 mg tablet Take 1 tablet by mouth once daily. amLODIPine (NORVASC) 5 mg tablet Take 1 tablet by mouth once daily. furosemide (LASIX) 20 mg tablet Take 1 tablet by mouth once daily. Cholecalciferol, Vitamin D3, 125 mcg (5,000 unit) cap Take 1 capsule by mouth once daily. lisinopril (ZESTRIL, PRINIVIL) 40 mg tablet Take 1 tablet by mouth once daily. lansoprazole (PREVACID) 15 mg capsule Take 1 capsule by mouth once daily. Nebulizer Accessories misc 1 Each as directed. Nebulizer tubing and mouth piece. faxed to [employer] hydrogen maleate 6 mg tablet (ZELNORM) Take 1 tablet (6 mg) by mouth twice daily before meals. benzonatate (TESSALON PERLE) 100 mg capsule Take 2 capsules by mouth three times daily as needed. loratadine (CLARITIN) 10 mg tablet Take 10 mg by mouth once daily. Bifidobacterium Infantis (ALIGN) 4 mg cap Take 1 capsule by mouth once daily. CPAP autoCPAP 5-15 cmH2O, mask, tubing, filters, heated humidity, lifetime supplies. Dx: TRINI Nebulizer 1 Each as needed. NEBULIZER TUBING AND SUPPLIES. DX: CHRONIC BRONCHITIS J41.1, WHEEZING R06.2. FAX TO [employer] [phone] COMPOUNDED PRESCRIPTION Nebulizer for albuterol every fours as needed ICD: R06.2 Current Facility-Administered Medications Medication Dose Route Frequency perflutren lipid microspheres 1.3 mL in NaCl (PF) 0.9% 10 mL injection (DEFINITY) INTRAVENOUS DIRECTED PRN sodium chloride 0.9 % (flush) 10 mL (BD POSIFLUSH) 10 mL INTRAVENOUS DIRECTED PRN FAMILY HISTORY Problem Relation Age of Onset Coronary Artery Disease Mother PE Asthma Mother Multiple Sclerosis Mother No Known Problems Father Coronary Artery Disease Sister Coronary Artery Disease Brother None Brother Colon Cancer No Family History Social History Tobacco Use Smoking status: Former Smoker Packs/day: 0.50 Types: Cigarettes Start date: 05/29/1987 Smokeless tobacco: Never Used Vaping Use Vaping Use: Never used Substance Use Topics Alcohol use: No Drug use: No EXAM: BP 124/82 Pulse 102 Resp 18 LMP 09/14/2013 SpO2 95% PHYSICAL EXAM: General Appearance: Well appearing, alert, in no acute distress, well-hydrated, well nourished.. Skin: Skin color, texture, turgor normal. 10 cm red area on the anterior right thigh. Several scabbed areas in this reddened area. Area is firm and with increased warmth. Head: Normocephalic, no masses, lesions, tenderness or abnormalities. Eyes: Anicteric sclera. Pupils are equally round and reactive to light. Extraocular movements are intact. . Lungs: Lungs clear to auscultation. No wheezing, rhonchi, rales.. Heart: RRR without murmur, gallop, or rubs. No ectopy. Neurologic: Gait with walker. ASSESSMENT/PLAN: 1. Cellulitis of skin - ICD9: 682.9, ICD10: L03.90 (primary diagnosis) Suspect secondary skin infection. - Begin treatment with Cephalaxin (Keflex) - No lymphangetic streaking, this was defined for patient to watch for and to seek medical care immediately if appears - CEPHALEXIN 500 MG CAPSULE 2. Rash - ICD9: 782.1, ICD10: R21 Area is with significant itch. She has tried several OTC treatments without effect. Discussed topical vs oral steroids, patient preferred the oral steroids, as it has worked well for her in the past. - METHYLPREDNISOLONE 4 MG TABLETS IN A DOSE PACK Discussed treatment plan and patient voices understanding. Patient's questions answered appropriately. Medications and potential side effects were discussed and patient voices understanding. Return to the office as scheduled or as needed for worsening/no improvement. Deloris Chavez APRN.KHURRAM documented in this encounterSt. [facility] [place] [facility]08[facility]-2022 Miscellaneous Notes* Telephone Encounter - Jose Summers LPN - 01/14/2022 10:42 AM EDT Patient phones requesting refills as follows: Pending Prescriptions Disp Refills BUPROPION XL 150 MG TAB 30 tablet 11 Sig: Take 1 tablet by mouth once daily. CHLOE: No SABA 10/22/21 NOV 01/21/22 Please review and advise. Jose Summers LPN documented in this encounterSt. Mary'[facility] [place] [facility]07-13-2022 Miscellaneous Notes* Telephone Encounter - Jose Summers LPN - 12/26/2021 8:43 AM EDT Patient phones requesting refills as follows: Pending Prescriptions Disp Refills ONDANSETRON HCL 4 MG TABLET 30 tablet 3 Sig: Take 1 tablet by mouth every 8 hours as needed for nausea/vomiting. CHLOE: No SABA 10/22/21 NOV 01/21/22 Please review and advise. Jose Summers LPN documented in this encounterSt. Mary'[facility] [place] [facility]07-11-2022 Miscellaneous Notes* Telephone Encounter - Ally Hanks Ma - 12/24/2021 11:02 AM EDT Last office visit: 10/22/21 F/u scheduled: 01/21/22 Last refilled on: Xanax #30 with 0 refill on 11/05/21 Ally Hanks Ma documented in this encounterSt. Mary'[facility] [facility]06-02-2022 Miscellaneous Notes* Telephone Encounter - Dorothy Perales APRN.KHURRAM - 11/15/2021 9:31 AM EDT Patient notified per phone pelvic ultrasound results showing endometrial thickness of 8 mm. Patientaware that EMB results are benign. Case discussed with Dr. Hagan with following plan -Aygestin 2.5 mg daily for 12 weeks. If any further bleeding patient is to notify the office with plans probableD&C. Patient voiced understanding. Order filed. Dorothy Perales APRN.CNP documented in this encounterSt. Mary'[facility] [facility]05-24-20[facility] History of Present illness Narrative* Dorothy Perales APRN.CNP - 11/06/2021 7:00 AM EDT POST MENOPAUSAL BLEEDING Santy Raza is a 60 year old who presents with post menopausal bleeding. She has been in menopause for 6 years. SUBJECTIVE: The bleeding is described as bright red bleeding, cramping that occurred 1 week ago and lasted 6 days. On HRT? No Sexually active? No Last Pap: 01/12/2021 normal Prior history of : Prior Reproductive tract surgery: none Have there been any of the following procedures/diagnoses? Endometrial Bx: No Fibroids/Polyps: No Uterine/Endometrial cancer: No Cervical dysplasia/cancer: No Ovarian cancer: No Family History: FAMILY HISTORY Problem Relation Age of Onset Coronary Artery Disease Mother PE Asthma Mother Multiple Sclerosis Mother No Known Problems Father Coronary Artery Disease Sister Coronary Artery Disease Brother None Brother Colon Cancer No Family History PHYSICAL EXAMINATION: EXAM: BP 100/60 Wt 280 lb (127.0kg) LMP 09/14/2013 GENERAL: pleasant, female in no apparent distress CHEST: Normal inspiratory effort ABDOMEN: soft and non-tender PELVIC: external genitalia normal, normal Bartholin's glands, urethra, Everly's glands, no vulvar lesions, no cervical lesions, scant amount blood present, normal appearing perineal body and perianal region BIMANUAL: non-tender - unable to assess further due to body habitus NEURO: alert and oriented x3,exam grossly non-focal ASSESSMENT/PLAN: 1. PMB (postmenopausal bleeding) - ICD9: 627.1, ICD10: N95.0 - discussed causes and diagnostic testing. - PELVIC US WHI - ENDOMETRIAL BIOPSY - done today - SURGICAL PATHOLOGY Will notify of results. Follow- up as needed. Dorothy Perales APRN.CNP Medical Decision Making: Problems: Moderate: New problem with uncertain prognosis Data: Unique test(s) ordered: 2 Medical Decision Making Level: 3 - Jacek Lerma is a 60 year old Female who presents today for an endometrial biopsy for post menopausal bleeding. test: n/a UNIVERSAL PROTOCOL / SAFETY CHECKLIST Procedure to be Performed: endometrial biopsy Sign In: A Moment of CARE was completed. Personnel directly involved with the procedure wore the appropriate PPE (Personal Protective Equipment). Patient/Surrogate Stated/Verified: PATIENT VERIFIED(optional for EMERGENT procedures): Patient name, Date of , Relevant allergies and The intended procedure Time Out Communication: Intended patient and procedure match the source documents. Consent documented and matches the intended procedure. Sign Out: SIGN OUT (optional for EMERGENT procedures): All specimen containers correctly labeled. All instruments, equipment, possible retained foreign bodies accounted for. Post-procedure follow-up management communicated and Plan of Care Visit completed when applicable. Dorothy Perales APRN.KHURRAM PROCEDURE: EXTERNAL GENITALIA: Normal in appearance without lesions VAGINA: Normal in appearance without lesions BIOPSY: Speculum placed into the vagina with excellent visualization of the cervix. Cervix cleaned with betadine. Anterior lip of cervix grasped with single toothed tenaculum. Uterus sounded to 8 cm.Pipelle inserted into the uterus without difficulty and endometrial biopsy obtained. Specimen labeled and sent to pathology. Hemostasis achieved. Procedure Summary: Patient tolerated procedure well. ASSESSMENT: post menopausal bleeding PLAN: Specimens labeled and sent to Pathology. Will notify patient of results in 1-2 weeks. Post-procedure instructions reviewed and written material given to the patient. Dorothy Perales APRN.CONTENT MANAGEMENT CONSULTANT documented in this encounterSt. Mary'[facility] [facility]05[facility]23[facility]2022 Miscellaneous Notes* Telephone Encounter - Lydia Hagan LPN - 11/05/2021 1:41 PM EDT Last office visit 10/22/2021. Patient phones requesting refills as follows: Pending Prescriptions Disp Refills ALPRAZOLAM 1 MG TABLET 30 tablet 0 Sig: Take 1 tablet by mouth once daily as needed for anxiety for up to 30 days. MARICARMEN Class: C-IV CHLOE: No Please review and advise. Lydia Hagan LPN documented in this encounterSt. [facility] Miscellaneous Notes* Telephone Encounter - Bud Shine Ma - 10/26/2021 12:45 PM EDT Patient was notified Bud Shine Ma * Telephone Encounter - Deloris Chavez APRN.CNP - 10/26/2021 12:12 PM EDT Please let patient know the previous info re: the spiriva. I sent the new inhaler in for her to try. Please keep us updated. Deloris Chavez APRN.CNP * Telephone Encounter - Bud Shine Ma - 10/25/2021 7:42 AM EDT Images from the original note were not included. PA received and denied reasoning not on formulary and patient needs to try Atrovent HFA. Bud Shine Ma * Telephone Encounter - Bud Shine Ma - 10/24/2021 6:33 PM EDT Prior Authorization has been completed online at [employer] for Xochitl, will await response. [id number] Please keep encounter open until final decision has been received and documented from insurance company. Bud Shine MA documented in this encounterSt. [facility] [facility]05[facility] Instructions* Patient Instructions* Deloris Chavez APRN.CNP - 10/22/2021 9:34 AM EDT 1. Continue the same medication. 2. Follow-up w/ psychiatry as planned. 3. I'll let you know when I receive the thyroid lab results. 4. Recheck in 3 months. documented in this encounterSt. [facility] [facility]05-[facility]22 History of Present illness Narrative* Deloris Chavez APRN.CONTENT MANAGEMENT CONSULTANT - 10/22/2021 9:21 AM EDT This is a 60 year old female who presents today with: Patient presents with: Follow Up HISTORY OF PRESENT ILLNESS: Santy Raza is a 60 year old female. Patient presents with: Follow Up Pt presents today for recheck. Had repeat thyroid labs done today. Await results. Changed back to citalopram for a brief period on Cymbalta. Refers feels much better. Still uses xanax daily. Has appt at [facility] in November. Happy with current regimen. Had to reschedule stress test. Had echo. PAST MEDICAL HISTORY: PAST MEDICAL HISTORY Diagnosis Date Allergic rhinitis, cause unspecified Central perforation of tympanic membrane, bilateral Essential hypertension, benign Hypothyroidism 09/26/2015 Mixed conductive and sensorineural hearing loss Obstructive sleep apnea Other anxiety states Perforated tympanic membrane 03/29/2011 Snoring Synovitis and tenosynovitis, unspecified Tobacco abuse 03/23/2012 PAST SURGICAL HISTORY Procedure Laterality Date COLONOSCOPY SCRN NOT HIGH RISK 09/13/2020 EGD 10/25/2020 LIG/TRNSXJ FLP TUBE ABDL/VAG APPR UNI/BI Tubal ligation MYRINGOTOMY ASPIR&/EUSTACHIAN TUBE NFLTJ ANES Myringotomy/tubes NEUROPLASTY &/TRANSPOS MEDIAN NRV CARPAL TUNNE Bilateral 01/15/2019 Bilateral carpal tunnel release REDUCTION OF LARGE BREAST 04/23/2016 STEREOTACT BREAST BX EA LESION PC 09/30/2018 left stereotactic breast biopsy w/vacuum assisted core needle biopsy, specimen radiograph and marker placement ALLERGIES Codfish [Other], Doxycycline Monohydrate, Hctz [Other], Levaquin [Levofloxacin], Meloxicam, and Peanuts MEDICATIONS Current Outpatient Medications Medication Sig SUCRAID 8,500 unit/mL soln baclofen (LIORESAL) 10 mg tablet TAKE 1/2 TO 1 TABLET BY MOUTH TWICE A DAY NEEDED FOR SPASMS albuterol (PROVENTIL) 2.5 mg /3 mL (0.083 %) nebulizer solution Use 3 mL via nebulizer every 6 hours as needed for wheezing/shortness of breath. ALPRAZolam (XANAX) 1 mg tablet Take 1 tablet by mouth once daily as needed for anxiety for up to 30days. urea (CARMOL) 40 % Apply to affected area as needed. benzonatate (TESSALON PERLES) 100 mg capsule Take 2 capsules by mouth three times daily as needed. guaiFENesin (MUCINEX) 600 mg 12 hr tablet Take 2 tablets by mouth twice daily. levothyroxine (LEVOXYL) 175 mcg tablet Take 1 tablet by mouth once daily. Take on empty stomach. For thyroid. amitriptyline (ELAVIL) 25 mg tablet Take 1 tablet by mouth daily at bedtime. citalopram (CELEXA) 40 mg tablet Take 1 tablet by mouth once daily. amLODIPine (NORVASC) 5 mg tablet Take 1 tablet by mouth once daily. furosemide (LASIX) 20 mg tablet Take 1 tablet by mouth once daily. Cholecalciferol, Vitamin D3, 125 mcg (5,000 unit) cap Take 1 capsule by mouth once daily. lisinopril (ZESTRIL, PRINIVIL) 40 mg tablet Take 1 tablet by mouth once daily. lansoprazole (PREVACID) 15 mg capsule Take 1 capsule by mouth once daily. simethicone, chewable (MYLICON) 80 mg chewable tablet Take 1 tablet by mouth every 6 hours as needed. Nebulizer Accessories misc 1 Each as directed. Nebulizer tubing and mouth piece. faxed to [employer] hydrogen maleate 6 mg tablet (ZELNORM) Take 1 tablet (6 mg) by mouth twice daily before meals. benzonatate (TESSALON PERLE) 100 mg capsule Take 2 capsules by mouth three times daily as needed. ondansetron (ZOFRAN) 4 mg tablet Take 1 tablet by mouth every 8 hours as needed for nausea/vomiting. tiotropium bromide (SPIRIVA RESPIMAT) 2.5 mcg/actuation inhaler Inhale 2 Puffs as instructed once daily. Inhale two puffs once daily. CIPRODEX 0.3-0.1 % otic suspension Use in both ears as needed. loratadine (CLARITIN) 10 mg tablet Take 10 mg by mouth once daily. Bifidobacterium Infantis (ALIGN) 4 mg cap Take 1 capsule by mouth once daily. buPROPion XL (WELLBUTRIN XL) 150 mg 24 hr tablet Take 1 tablet by mouth once daily. CPAP autoCPAP 5-15 cmH2O, mask, tubing, filters, heated humidity, lifetime supplies. Dx: TRINI Nebulizer 1 Each as needed. NEBULIZER TUBING AND SUPPLIES. DX: CHRONIC BRONCHITIS J41.1, WHEEZING R06.2. FAX TO [employer] [phone] COMPOUNDED PRESCRIPTION Nebulizer for albuterol every fours as needed ICD: R06.2 Current Facility-Administered Medications Medication Dose Route Frequency perflutren lipid microspheres 1.3 mL in NaCl (PF) 0.9% 10 mL injection (DEFINITY) INTRAVENOUS DIRECTED PRN sodium chloride 0.9 % (flush) 10 mL (BD POSIFLUSH) 10 mL INTRAVENOUS DIRECTED PRN FAMILY HISTORY Problem Relation Age of Onset Coronary Artery Disease Mother PE Asthma Mother Multiple Sclerosis Mother No Known Problems Father Coronary Artery Disease Sister Coronary Artery Disease Brother None Brother Colon Cancer No Family History Social History Tobacco Use Smoking status: Former Smoker Packs/day: 0.50 Types: Cigarettes Start date: 05/29/1987 Smokeless tobacco: Never Used Vaping Use Vaping Use: Never used Substance Use Topics Alcohol use: No Drug use: No EXAM: BP 118/76 Pulse 82 Resp 18 Wt 127.9 kg (282 lb) LMP 09/14/2013 SpO2 92% BMI 45.52 kg/m PHYSICAL EXAM: General Appearance: Well appearing, alert, in no acute distress, well-hydrated, well nourished.. Skin: Skin color, texture, turgor normal, no suspicious rashes or lesions. Head: Normocephalic, no masses, lesions, tenderness or abnormalities. Eyes: Anicteric sclera. Pupils are equally round and reactive to light. Extraocular movements are intact. . Lungs: exp wheezes upper [place], otherwise, clear to auscultation. Heart: RRR without murmur, gallop, or rubs. No ectopy. Neurologic: Gait normal. ASSESSMENT/PLAN: 1. Generalized anxiety disorder with panic attacks - ICD9: 300.02, 300.01, ICD10: F41.1, F41.0 (primary diagnosis) Happy with current regimen. Continue with plans to follow-up with psychiatry as planned. Due for annual tox screen. - TOX SCREEN ROUT UR - PAIN PANEL, UR QUANT - SPECIMEN VALIDITY, URINE 2. Medication management - ICD9: V58.69, ICD10: Z79.899 - TOX SCREEN ROUT UR - PAIN PANEL, UR QUANT - SPECIMEN VALIDITY, URINE Discussed treatment plan and patient voices understanding. Patient's questions answered appropriately. Medications and potential side effects were discussed and patient voices understanding. Return to the office as scheduled or as needed for worsening/no improvement. Deloris Chavez APRN.CNP The patient indicates understanding of these issues and agrees with the plan. This note was partially generated using [employer] voice recognition system. Note was reviewed for accuracy. There may be minor misspellings or grammar miscues with [employer] voice recognition. documented in this encounterSt. [facility] [facility]05[facility] Miscellaneous Notes* Telephone Encounter - Ally Hanks Ma - 10/18/2021 8:57 AM EDT Last office visit: 09/19/21 F/u scheduled: 10/22/21 Ally Hanks Ma documented in this encounterSt. Mary'[facility] [facility]04-[facility]-2022 Miscellaneous Notes* Telephone Encounter - Jose Summers LPN - 10/05/2021 4:10 PM EDT TC to pt, notified of results/provider response. She verbalized understanding. Jose Summers LPN * Telephone Encounter - Deloris Chavez APRN.CNP - 10/05/2021 3:54 PM EDT Can please let patient know that her repeat CBC was normal/stable. Her thyroid levels are improved, however still on the hypoactive side. However it is too soon to reevaluate this since we just made a medication adjustment. Please recheck this again in another month. Please notify lab of error that test was done too soon. Deloris Chavez APRN.KHURRAM documented in this encounterSt. Mary[facility] [facility]04-15-2022 Miscellaneous Notes* Telephone Encounter - Ramona Nelson LPN - 09/28/2021 8:09 AM EDT Patient phones requesting refills as follows: Pending Prescriptions Disp Refills ALPRAZOLAM 1 MG TABLET 30 tablet 0 Sig: Take 1 tablet by mouth once daily as needed for anxiety for up to 30 days. MARICARMEN Class: C-IV CHLOE: No SABA-09/19/21 Labs-09/19/21 NOV-10/22/21 Med filled 08/27/21 ends 09/26/21 Please review and advise. Ramona Nelson LPN documented in this encounterSt. Mary'[facility] [facility]04[facility]12-[facility] History of Present illness Narrative* Yarely Galvan PA-C - 09/25/2021 4:30 PM EDT This note was created using [employer]. Subjective Santy Raza is a 60 year old female. HPI Presents with cough, wheezing shortness of breath over the past 4 to 5 days. She states she gets frequent bronchitis. No fever. She has had some nasal congestion and postnasal drip. She did do a breathing treatment this morning. She states she did quit smoking about a month ago. She has not had Covid previously. She is vaccinated. No loss of taste or smell. Review of Systems Constitutional: Negative for fever. HENT: Positive for congestion, postnasal drip and rhinorrhea. Negative for ear pain and sore throat. Eyes: Negative. Respiratory: Positive for cough, shortness of breath and wheezing. Cardiovascular: Negative. Gastrointestinal: Negative. Genitourinary: Negative. Musculoskeletal: Negative. All other systems reviewed and are negative. PAST MEDICAL HISTORY Diagnosis Date Allergic rhinitis, cause unspecified Central perforation of tympanic membrane, bilateral Essential hypertension, benign Hypothyroidism 09/26/2015 Mixed conductive and sensorineural hearing loss Obstructive sleep apnea Other anxiety states Perforated tympanic membrane 03/29/2011 Snoring Synovitis and tenosynovitis, unspecified Tobacco abuse 03/23/2012 Current Outpatient Medications Medication Sig Dispense Refill levothyroxine (LEVOXYL) 175 mcg tablet Take 1 tablet by mouth once daily. Take on empty stomach. For thyroid. 30 tablet 3 nitrofurantoin monohydrate and macrocrystal (MACROBID) 100 mg capsule Take 1 capsule by mouth twicedaily with meals for 7 days. 14 capsule 0 amitriptyline (ELAVIL) 25 mg tablet Take 1 tablet by mouth daily at bedtime. 90 tablet 3 citalopram (CELEXA) 40 mg tablet Take 1 tablet by mouth once daily. 30 tablet 5 amLODIPine (NORVASC) 5 mg tablet Take 1 tablet by mouth once daily. 30 tablet 12 furosemide (LASIX) 20 mg tablet Take 1 tablet by mouth once daily. 30 tablet 0 Cholecalciferol, Vitamin D3, 125 mcg (5,000 unit) cap Take 1 capsule by mouth once daily. 30 capsule 11 lisinopril (ZESTRIL, PRINIVIL) 40 mg tablet Take 1 tablet by mouth once daily. 90 tablet 3 lansoprazole (PREVACID) 15 mg capsule Take 1 capsule by mouth once daily. 30 capsule 11 simethicone, chewable (MYLICON) 80 mg chewable tablet Take 1 tablet by mouth every 6 hours as needed. 90 tablet 2 ALPRAZolam (XANAX) 1 mg tablet Take 1 tablet by mouth once daily as needed for anxiety for up to 30days. 30 tablet 0 Nebulizer Accessories misc 1 Each as directed. Nebulizer tubing and mouth piece. faxed to 3 Each 5 tegaserod hydrogen maleate 6 mg tablet (ZELNORM) Take 1 tablet (6 mg) by mouth twice daily before meals. benzonatate (TESSALON PERLE) 100 mg capsule Take 2 capsules by mouth three times daily as needed. 30 capsule 0 albuterol (PROVENTIL) 2.5 mg /3 mL (0.083 %) nebulizer solution Use 3 mL via nebulizer every 6 hours as needed for wheezing/shortness of breath. 6 Vial 5 ondansetron (ZOFRAN) 4 mg tablet Take 1 tablet by mouth every 8 hours as needed for nausea/vomiting. 30 tablet 3 tiotropium bromide (SPIRIVA RESPIMAT) 2.5 mcg/actuation inhaler Inhale 2 Puffs as instructed once daily. Inhale two puffs once daily. 1 Each 11 CIPRODEX 0.3-0.1 % otic suspension Use in both ears as needed. loratadine (CLARITIN) 10 mg tablet Take 10 mg by mouth once daily. buPROPion XL (WELLBUTRIN XL) 150 mg 24 hr tablet Take 1 tablet by mouth once daily. 30 tablet 11 CPAP autoCPAP 5-15 cmH2O, mask, tubing, filters, heated humidity, lifetime supplies. Dx: TRINI 1 Device 0 Nebulizer 1 Each as needed. NEBULIZER TUBING AND SUPPLIES. DX: CHRONIC BRONCHITIS J41.1, WHEEZING R06.2. FAX TO [facility] [place] [phone] 1 Each 11 COMPOUNDED PRESCRIPTION Nebulizer for albuterol every fours as needed ICD: R06.2 1 Device 0 predniSONE (DELTASONE) 20 mg tablet Take 2 tablets by mouth once daily for 5 days. 10 tablet 0 benzonatate (TESSALON PERLES) 100 mg capsule Take 2 capsules by mouth three times daily as needed. 30 capsule 0 guaiFENesin (MUCINEX) 600 mg 12 hr tablet Take 2 tablets by mouth twice daily. 14 tablet 0 Bifidobacterium Infantis (ALIGN) 4 mg cap Take 1 capsule by mouth once daily. 30 capsule 2 Current Facility-Administered Medications Medication Dose Route Frequency Provider Last Rate Last Admin perflutren lipid microspheres 1.3 mL in NaCl (PF) 0.9% 10 mL injection (DEFINITY) INTRAVENOUS DIRECTED PRN Deloris Chavez, GLASS MECHANIC.KHURRAM sodium chloride 0.9 % (flush) 10 mL (BD POSIFLUSH) 10 mL INTRAVENOUS DIRECTED PRN Deloris Chavez, GLASS MECHANIC.CONTENT MANAGEMENT CONSULTANT PAST SURGICAL HISTORY Procedure Laterality Date COLONOSCOPY SCRN NOT HIGH RISK 09/13/2020 EGD 10/25/2020 LIG/TRNSXJ FLP TUBE ABDL/VAG APPR UNI/BI Tubal ligation MYRINGOTOMY ASPIR&/EUSTACHIAN TUBE NFLTJ ANES Myringotomy/tubes NEUROPLASTY &/TRANSPOS MEDIAN NRV CARPAL TUNNE Bilateral 01/15/2019 Bilateral carpal tunnel release REDUCTION OF LARGE BREAST 04/23/2016 STEREOTACT BREAST BX EA LESION PC 09/30/2018 left stereotactic breast biopsy w/vacuum assisted core needle biopsy, specimen radiograph and marker placement FAMILY HISTORY Problem Relation Age of Onset Coronary Artery Disease Mother PE Asthma Mother Multiple Sclerosis Mother No Known Problems Father Coronary Artery Disease Sister Coronary Artery Disease Brother None Brother Colon Cancer No Family History Social History Tobacco Use Smoking status: Former Smoker Packs/day: 0.50 Types: Cigarettes Start date: 05/29/1987 Smokeless tobacco: Never Used Vaping Use Vaping Use: Never used Substance Use Topics Alcohol use: No Drug use: No Objective BP 118/76 Pulse 81 Temp 36.4 C (97.5 F) Resp 21 Wt 128.1 kg (282 lb 6.4 oz) LMP 09/14/2013 SpO2 95% BMI 45.58 kg/m Physical Exam Vitals reviewed. Constitutional: Appearance: Normal appearance. HENT: Head: Normocephalic and atraumatic. Right Ear: Tympanic membrane, ear canal and external ear normal. Left Ear: Tympanic membrane, ear canal and external ear normal. Mouth/Throat: Mouth: Mucous membranes are moist. Pharynx: Oropharynx is clear. Cardiovascular: Rate and Rhythm: Normal rate and regular rhythm. Heart sounds: Normal heart sounds. Pulmonary: Effort: Pulmonary effort is normal. No respiratory distress. Breath sounds: Wheezing and rhonchi present. Musculoskeletal: Cervical back: Neck supple. Lymphadenopathy: Cervical: No cervical adenopathy. Skin: General: Skin is warm and dry. Findings: No rash. Neurological: Mental Status: She is alert. Assessment and Plan ASSESSMENT/PLAN: 1. Bronchitis - ICD9: 490, ICD10: J40 cxr clear. Covid/flu swab pending. Prednisone, tessalon, mucinex rx. Follow up with pcp if not better. - XR CHEST 2V FRONTAL/LAT - COVID WITH FLUA+B, ROUTINE Yarely Galvan PA-C documented in this encounterSt. [facility] [facility]03[facility] Miscellaneous Notes* Telephone Encounter - Ramona Nelson LPN - 09/10/2021 11:24 AM EDT Patient phones requesting refills as follows: Pending Prescriptions Disp Refills AMLODIPINE 5 MG TABLET 30 tablet 12 Sig: Take 1 tablet by mouth once daily. CHLOE: No SABA-08/06/21 Labs-08/24/20 NOV-none med filled 01/17/21 Please review and advise. Ramona Nelson LPN documented in this encounterSt. Mary'[facility] [facility]02[facility]16[facility] History of Present illness Narrative* Felicia Brewer RT(R) - 08/01/2021 10:20 AM EST Radiology Service Progress Note PATIENT NAME: Santy Raza DATE OF SERVICE: August 01, 2021 TIME: 10:20 AM PATIENT IDENTITY VERIFICATION COMPLETED USING TWO (2) IDENTIFIERS: Name and Date of confirmedby patient verbally. FALL SCREENING: Has the patient had 2 falls in the last year or 1 fall with injury or currently using an Ambulatory Assistive Device (Walker, Cane, Wheelchair, Crutches, etc.)? No PATIENT GENDER DATA: Female. status: : No status: NO. PATIENT RELEVANT IMPLANT DATA REVIEWED: Not Applicable RADIOLOGY DEPARTMENT: General X-ray: Exam(s) Completed: Chest X-Ray PERIPHERAL IV DATA: Not applicable SIGNED BY: RT Cathy(R) August 01, 2021 10:20 AM documented in this encounterSt. Mary'[facility] [facility]06[facility]13-20[facility] Miscellaneous Notes* Telephone Encounter - Faith Lino - 11/26/2020 7:03 AM EDT I added a referral for diagnostic mammogram. It is currently pending. Faith Lino * Telephone Encounter - Deloris Chavez APRN.CNP - 11/24/2020 8:23 AM EDT She already has the order in for the right diagnostic mammogram and routine screening placed. Can we please see if she needs prior auth for the diagnostic mammogram? Deloris Chavez APRN.CNP * Telephone Encounter - Yuval Whiting RN - 11/23/2020 2:55 PM EDT Patient scheduled appt with Katherine Chavez Np, to est care/transfer from Dr. Oneal. Reports Dr. Oneal recommended [facility]. Patient reports it is time and she is scheduled for a f/u mammogram, next Wed. Reports she will also need a diagnostic right mammogram? Reports this is what she was told when had last mammogram 7 mths ago. Insurance tells her she needs a PA before has these mammograms. Asking if [facility] can do this? Please advise patient. documented in this encounterSt. Mary'[facility] [facility]03[facility] History of Past illness Narrative* Problem Noted Date Resolved Date Pre-op testing 09/13/2020 09/13/2020 Sciatica 08/11/2009 02/20/2016 Contact dermatitis and other eczema, due to unspecified cause 11/05/2006 09/26/2015 Contact dermatitis and other eczema due to other specified agent 11/05/2006 09/26/2015 Other atopic dermatitis and related conditions 0 11/05/2006 09/26/2015 XEROSIS////SEBACEOUS GLAND DIS NEC 11/05/2006 09/26/2015 Unspecified pruritic disorder 11/05/2006 Anxiety 07/08/2019 documented as of this encounter (statuses as of 09/10/2021) [facility] History of Past illness Narrative* Problem Noted Date Resolved Date Pre-op testing 09/13/2020 09/13/2020 Sciatica 08/11/2009 02/20/2016 Contact dermatitis and other eczema, due to unspecified cause 11/05/2006 09/26/2015 Contact dermatitis and other eczema due to other specified agent 11/05/2006 09/26/2015 Other atopic dermatitis and related conditions 0 11/05/2006 09/26/2015 XEROSIS////SEBACEOUS GLAND DIS NEC 11/05/2006 09/26/2015 Unspecified pruritic disorder 11/05/2006 Anxiety 07/08/2019 documented as of this encounter (statuses as of 09/18/2021) [place] [address]-31-2021 History of Past illness Narrative* Problem Noted Date Resolved Date Pre-op testing 09/13/2020 09/13/2020 Sciatica 08/11/2009 02/20/2016 Contact dermatitis and other eczema, due to unspecified cause 11/05/2006 09/26/2015 Contact dermatitis and other eczema due to other specified agent 11/05/2006 09/26/2015 Other atopic dermatitis and related conditions 0 11/05/2006 09/26/2015 XEROSIS////SEBACEOUS GLAND DIS NEC 11/05/2006 09/26/2015 Unspecified pruritic disorder 11/05/2006 Anxiety 07/08/2019 documented as of this encounter (statuses as of 09/20/2021) [facility] History of Past illness Narrative* Problem Noted Date Resolved Date Pre-op testing 09/13/2020 09/13/2020 Sciatica 08/11/2009 02/20/2016 Contact dermatitis and other eczema, due to unspecified cause 11/05/2006 09/26/2015 Contact dermatitis and other eczema due to other specified agent 11/05/2006 09/26/2015 Other atopic dermatitis and related conditions 0 11/05/2006 09/26/2015 XEROSIS////SEBACEOUS GLAND DIS NEC 11/05/2006 09/26/2015 Unspecified pruritic disorder 11/05/2006 Anxiety 07/08/2019 documented as of this encounter (statuses as of 09/25/2021) [facility] History of Past illness Narrative* Problem Noted Date Resolved Date Pre-op testing 09/13/2020 09/13/2020 Sciatica 08/11/2009 02/20/2016 Contact dermatitis and other eczema, due to unspecified cause 11/05/2006 09/26/2015 Contact dermatitis and other eczema due to other specified agent 11/05/2006 09/26/2015 Other atopic dermatitis and related conditions 0 11/05/2006 09/26/2015 XEROSIS////SEBACEOUS GLAND DIS NEC 11/05/2006 09/26/2015 Unspecified pruritic disorder 11/05/2006 Anxiety 07/08/2019 documented as of this encounter (statuses as of 09/26/2021) [address]31-[address]21 History of Past illness Narrative* Problem Noted Date Resolved Date Pre-op testing 09/13/2020 09/13/2020 Sciatica 08/11/2009 02/20/2016 Contact dermatitis and other eczema, due to unspecified cause 11/05/2006 09/26/2015 Contact dermatitis and other eczema due to other specified agent 11/05/2006 09/26/2015 Other atopic dermatitis and related conditions 0 11/05/2006 09/26/2015 XEROSIS////SEBACEOUS GLAND DIS NEC 11/05/2006 09/26/2015 Unspecified pruritic disorder 11/05/2006 Anxiety 07/08/2019 documented as of this encounter (statuses as of 09/28/2021) [facility] History of Past illness Narrative* Problem Noted Date Resolved Date Pre-op testing 09/13/2020 09/13/2020 Sciatica 08/11/2009 02/20/2016 Contact dermatitis and other eczema, due to unspecified cause 11/05/2006 09/26/2015 Contact dermatitis and other eczema due to other specified agent 11/05/2006 09/26/2015 Other atopic dermatitis and related conditions 0 11/05/2006 09/26/2015 XEROSIS////SEBACEOUS GLAND DIS NEC 11/05/2006 09/26/2015 Unspecified pruritic disorder 11/05/2006 Anxiety 07/08/2019 documented as of this encounter (statuses as of 10/03/2021) [facility] History of Past illness Narrative* Problem Noted Date Resolved Date Pre-op testing 09/13/2020 09/13/2020 Sciatica 08/11/2009 02/20/2016 Contact dermatitis and other eczema, due to unspecified cause 11/05/2006 09/26/2015 Contact dermatitis and other eczema due to other specified agent 11/05/2006 09/26/2015 Other atopic dermatitis and related conditions 0 11/05/2006 09/26/2015 XEROSIS////SEBACEOUS GLAND DIS NEC 11/05/2006 09/26/2015 Unspecified pruritic disorder 11/05/2006 Anxiety 07/08/2019 documented as of this encounter (statuses as of 10/05/2021) [address]31-[address]21 History of Past illness Narrative* Problem Noted Date Resolved Date Pre-op testing 09/13/2020 09/13/2020 Sciatica 08/11/2009 02/20/2016 Contact dermatitis and other eczema, due to unspecified cause 11/05/2006 09/26/2015 Contact dermatitis and other eczema due to other specified agent 11/05/2006 09/26/2015 Other atopic dermatitis and related conditions 0 11/05/2006 09/26/2015 XEROSIS////SEBACEOUS GLAND DIS NEC 11/05/2006 09/26/2015 Unspecified pruritic disorder 11/05/2006 Anxiety 07/08/2019 documented as of this encounter (statuses as of 10/05/2021) [facility] of Past illness Narrative* Problem Noted Date Resolved Date Pre-op testing 09/13/2020 09/13/2020 Sciatica 08/11/2009 02/20/2016 Contact dermatitis and other eczema, due to unspecified cause 11/05/2006 09/26/2015 Contact dermatitis and other eczema due to other specified agent 11/05/2006 09/26/2015 Other atopic dermatitis and related conditions 0 11/05/2006 09/26/2015 XEROSIS////SEBACEOUS GLAND DIS NEC 11/05/2006 09/26/2015 Unspecified pruritic disorder 11/05/2006 Anxiety 07/08/2019 documented as of this encounter (statuses as of 10/19/2021) [facility]03-31-2021 History of Past illness Narrative* Problem Noted Date Resolved Date Pre-op testing 09/13/2020 09/13/2020 Sciatica 08/11/2009 02/20/2016 Contact dermatitis and other eczema, due to unspecified cause 11/05/2006 09/26/2015 Contact dermatitis and other eczema due to other specified agent 11/05/2006 09/26/2015 Other atopic dermatitis and related conditions 0 11/05/2006 09/26/2015 XEROSIS////SEBACEOUS GLAND DIS NEC 11/05/2006 09/26/2015 Unspecified pruritic disorder 11/05/2006 Anxiety 07/08/2019 documented as of this encounter (statuses as of 10/22/2021) [address]31-2021 History of Past illness Narrative* Problem Noted Date Resolved Date Pre-op testing 09/13/2020 09/13/2020 Sciatica 08/11/2009 02/20/2016 Contact dermatitis and other eczema, due to unspecified cause 11/05/2006 09/26/2015 Contact dermatitis and other eczema due to other specified agent 11/05/2006 09/26/2015 Other atopic dermatitis and related conditions 0 11/05/2006 09/26/2015 XEROSIS////SEBACEOUS GLAND DIS NEC 11/05/2006 09/26/2015 Unspecified pruritic disorder 11/05/2006 Anxiety 07/08/2019 documented as of this encounter (statuses as of 10/23/2021) [facility]03-31-2021 History of Past illness Narrative* Problem Noted Date Resolved Date Pre-op testing 09/13/2020 09/13/2020 Sciatica 08/11/2009 02/20/2016 Contact dermatitis and other eczema, due to unspecified cause 11/05/2006 09/26/2015 Contact dermatitis and other eczema due to other specified agent 11/05/2006 09/26/2015 Other atopic dermatitis and related conditions 0 11/05/2006 09/26/2015 XEROSIS////SEBACEOUS GLAND DIS NEC 11/05/2006 09/26/2015 Unspecified pruritic disorder 11/05/2006 Anxiety 07/08/2019 documented as of this encounter (statuses as of 10/26/2021) [facility]03-31-2021 History of Past illness Narrative* Problem Noted Date Resolved Date Pre-op testing 09/13/2020 09/13/2020 Sciatica 08/11/2009 02/20/2016 Contact dermatitis and other eczema, due to unspecified cause 11/05/2006 09/26/2015 Contact dermatitis and other eczema due to other specified agent 11/05/2006 09/26/2015 Other atopic dermatitis and related conditions 0 11/05/2006 09/26/2015 XEROSIS////SEBACEOUS GLAND DIS NEC 11/05/2006 09/26/2015 Unspecified pruritic disorder 11/05/2006 Anxiety 07/08/2019 documented as of this encounter (statuses as of 11/05/2021) [address]31-2021 History of Past illness Narrative* Problem Noted Date Resolved Date Pre-op testing 09/13/2020 09/13/2020 Sciatica 08/11/2009 02/20/2016 Contact dermatitis and other eczema, due to unspecified cause 11/05/2006 09/26/2015 Contact dermatitis and other eczema due to other specified agent 11/05/2006 09/26/2015 Other atopic dermatitis and related conditions 0 11/05/2006 09/26/2015 XEROSIS////SEBACEOUS GLAND DIS NEC 11/05/2006 09/26/2015 Unspecified pruritic disorder 11/05/2006 Anxiety 07/08/2019 documented as of this encounter (statuses as of 11/06/2021) [facility]03-31-2021 History of Past illness Narrative* Problem Noted Date Resolved Date Pre-op testing 09/13/2020 09/13/2020 Sciatica 08/11/2009 02/20/2016 Contact dermatitis and other eczema, due to unspecified cause 11/05/2006 09/26/2015 Contact dermatitis and other eczema due to other specified agent 11/05/2006 09/26/2015 Other atopic dermatitis and related conditions 0 11/05/2006 09/26/2015 XEROSIS////SEBACEOUS GLAND DIS NEC 11/05/2006 09/26/2015 Unspecified pruritic disorder 11/05/2006 Anxiety 07/08/2019 documented as of this encounter (statuses as of 11/15/2021) [facility]03-31-2021 History of Past illness Narrative* Problem Noted Date Resolved Date Pre-op testing 09/13/2020 09/13/2020 Sciatica 08/11/2009 02/20/2016 Contact dermatitis and other eczema, due to unspecified cause 11/05/2006 09/26/2015 Contact dermatitis and other eczema due to other specified agent 11/05/2006 09/26/2015 Other atopic dermatitis and related conditions 0 11/05/2006 09/26/2015 XEROSIS////SEBACEOUS GLAND DIS NEC 11/05/2006 09/26/2015 Unspecified pruritic disorder 11/05/2006 Anxiety 07/08/2019 documented as of this encounter (statuses as of 12/24/2021) [address]31-2021 History of Past illness Narrative* Problem Noted Date Resolved Date Pre-op testing 09/13/2020 09/13/2020 Sciatica 08/11/2009 02/20/2016 Contact dermatitis and other eczema, due to unspecified cause 11/05/2006 09/26/2015 Contact dermatitis and other eczema due to other specified agent 11/05/2006 09/26/2015 Other atopic dermatitis and related conditions 0 11/05/2006 09/26/2015 XEROSIS////SEBACEOUS GLAND DIS NEC 11/05/2006 09/26/2015 Unspecified pruritic disorder 11/05/2006 Anxiety 07/08/2019 documented as of this encounter (statuses as of 12/26/2021) [facility]03-31-2021 History of Past illness Narrative* Problem Noted Date Resolved Date Pre-op testing 09/13/2020 09/13/2020 Sciatica 08/11/2009 02/20/2016 Contact dermatitis and other eczema, due to unspecified cause 11/05/2006 09/26/2015 Contact dermatitis and other eczema due to other specified agent 11/05/2006 09/26/2015 Other atopic dermatitis and related conditions 0 11/05/2006 09/26/2015 XEROSIS////SEBACEOUS GLAND DIS NEC 11/05/2006 09/26/2015 Unspecified pruritic disorder 11/05/2006 Anxiety 07/08/2019 documented as of this encounter (statuses as of 01/14/2022) [facility]03-31-2021 History of Past illness Narrative* Problem Noted Date Resolved Date Pre-op testing 09/13/2020 09/13/2020 Sciatica 08/11/2009 02/20/2016 Contact dermatitis and other eczema, due to unspecified cause 11/05/2006 09/26/2015 Contact dermatitis and other eczema due to other specified agent 11/05/2006 09/26/2015 Other atopic dermatitis and related conditions 0 11/05/2006 09/26/2015 XEROSIS////SEBACEOUS GLAND DIS NEC 11/05/2006 09/26/2015 Unspecified pruritic disorder 11/05/2006 Anxiety 07/08/2019 documented as of this encounter (statuses as of 01/16/2022) [address]31-2021 History of Past illness Narrative* Problem Noted Date Resolved Date Pre-op testing 09/13/2020 09/13/2020 Sciatica 08/11/2009 02/20/2016 Contact dermatitis and other eczema, due to unspecified cause 11/05/2006 09/26/2015 Contact dermatitis and other eczema due to other specified agent 11/05/2006 09/26/2015 Other atopic dermatitis and related conditions 0 11/05/2006 09/26/2015 XEROSIS////SEBACEOUS GLAND DIS NEC 11/05/2006 09/26/2015 Unspecified pruritic disorder 11/05/2006 Anxiety 07/08/2019 documented as of this encounter (statuses as of 01/21/2022) [facility]03-31-2021 History of Past illness Narrative* Problem Noted Date Resolved Date Pre-op testing 09/13/2020 09/13/2020 Sciatica 08/11/2009 02/20/2016 Contact dermatitis and other eczema, due to unspecified cause 11/05/2006 09/26/2015 Contact dermatitis and other eczema due to other specified agent 11/05/2006 09/26/2015 Other atopic dermatitis and related conditions 0 11/05/2006 09/26/2015 XEROSIS////SEBACEOUS GLAND DIS NEC 11/05/2006 09/26/2015 Unspecified pruritic disorder 11/05/2006 Anxiety 07/08/2019 documented as of this encounter (statuses as of 03/05/2022) [facility]03-31-2021 History of Past illness Narrative* Problem Noted Date Resolved Date Pre-op testing 09/13/2020 09/13/2020 Sciatica 08/11/2009 02/20/2016 Contact dermatitis and other eczema, due to unspecified cause 11/05/2006 09/26/2015 Contact dermatitis and other eczema due to other specified agent 11/05/2006 09/26/2015 Other atopic dermatitis and related conditions 0 11/05/2006 09/26/2015 XEROSIS////SEBACEOUS GLAND DIS NEC 11/05/2006 09/26/2015 Unspecified pruritic disorder 11/05/2006 Anxiety 07/08/2019 documented as of this encounter (statuses as of 03/11/2022) [facility]03-31-2021 History of Past illness Narrative* Problem Noted Date Resolved Date Pre-op testing 09/13/2020 09/13/2020 Sciatica 08/11/2009 02/20/2016 Contact dermatitis and other eczema, due to unspecified cause 11/05/2006 09/26/2015 Contact dermatitis and other eczema due to other specified agent 11/05/2006 09/26/2015 Other atopic dermatitis and related conditions 0 11/05/2006 09/26/2015 XEROSIS////SEBACEOUS GLAND DIS NEC 11/05/2006 09/26/2015 Unspecified pruritic disorder 11/05/2006 Anxiety 07/08/2019 documented as of this encounter (statuses as of 03/22/2022) [facility]03-31-2021 History of Past illness Narrative* Problem Noted Date Resolved Date Pre-op testing 09/13/2020 09/13/2020 Sciatica 08/11/2009 02/20/2016 Contact dermatitis and other eczema, due to unspecified cause 11/05/2006 09/26/2015 Contact dermatitis and other eczema due to other specified agent 11/05/2006 09/26/2015 Other atopic dermatitis and related conditions 0 11/05/2006 09/26/2015 XEROSIS////SEBACEOUS GLAND DIS NEC 11/05/2006 09/26/2015 Unspecified pruritic disorder 11/05/2006 Anxiety 07/08/2019 documented as of this encounter (statuses as of 04/04/2022) [facility]03-31-2021 History of Past illness Narrative* Problem Noted Date Resolved Date Pre-op testing 09/13/2020 09/13/2020 Sciatica 08/11/2009 02/20/2016 Contact dermatitis and other eczema, due to unspecified cause 11/05/2006 09/26/2015 Contact dermatitis and other eczema due to other specified agent 11/05/2006 09/26/2015 Other atopic dermatitis and related conditions 0 11/05/2006 09/26/2015 XEROSIS////SEBACEOUS GLAND DIS NEC 11/05/2006 09/26/2015 Unspecified pruritic disorder 11/05/2006 Anxiety 07/08/2019 documented as of this encounter (statuses as of 04/05/2022) [facility]03-31-2021 History of Past illness Narrative* Problem Noted Date Resolved Date Pre-op testing 09/13/2020 09/13/2020 Sciatica 08/11/2009 02/20/2016 Contact dermatitis and other eczema, due to unspecified cause 11/05/2006 09/26/2015 Contact dermatitis and other eczema due to other specified agent 11/05/2006 09/26/2015 Other atopic dermatitis and related conditions 0 11/05/2006 09/26/2015 XEROSIS////SEBACEOUS GLAND DIS NEC 11/05/2006 09/26/2015 Unspecified pruritic disorder 11/05/2006 Anxiety 07/08/2019 documented as of this encounter (statuses as of 04/12/2022) [facility]03-31-2021 History of Past illness Narrative* Problem Noted Date Resolved Date Pre-op testing 09/13/2020 09/13/2020 Sciatica 08/11/2009 02/20/2016 Contact dermatitis and other eczema, due to unspecified cause 11/05/2006 09/26/2015 Contact dermatitis and other eczema due to other specified agent 11/05/2006 09/26/2015 Other atopic dermatitis and related conditions 0 11/05/2006 09/26/2015 XEROSIS////SEBACEOUS GLAND DIS NEC 11/05/2006 09/26/2015 Unspecified pruritic disorder 11/05/2006 Anxiety 07/08/2019 documented as of this encounter (statuses as of 04/26/2022) [facility]03-31-2021 History of Past illness Narrative* Problem Noted Date Resolved Date Pre-op testing 09/13/2020 09/13/2020 Sciatica 08/11/2009 02/20/2016 Contact dermatitis and other eczema, due to unspecified cause 11/05/2006 09/26/2015 Contact dermatitis and other eczema due to other specified agent 11/05/2006 09/26/2015 Other atopic dermatitis and related conditions 0 11/05/2006 09/26/2015 XEROSIS////SEBACEOUS GLAND DIS NEC 11/05/2006 09/26/2015 Unspecified pruritic disorder 11/05/2006 Anxiety 07/08/2019 documented as of this encounter (statuses as of 05/06/2022) [address]31-2021 History of Past illness Narrative* Problem Noted Date Resolved Date Pre-op testing 09/13/2020 09/13/2020 Sciatica 08/11/2009 02/20/2016 Contact dermatitis and other eczema, due to unspecified cause 11/05/2006 09/26/2015 Contact dermatitis and other eczema due to other specified agent 11/05/2006 09/26/2015 Other atopic dermatitis and related conditions 0 11/05/2006 09/26/2015 XEROSIS////SEBACEOUS GLAND DIS NEC 11/05/2006 09/26/2015 Unspecified pruritic disorder 11/05/2006 Anxiety 07/08/2019 documented as of this encounter (statuses as of 05/09/2022) [facility]03-31-2021 History of Past illness Narrative* Problem Noted Date Resolved Date Pre-op testing 09/13/2020 09/13/2020 Sciatica 08/11/2009 02/20/2016 Contact dermatitis and other eczema, due to unspecified cause 11/05/2006 09/26/2015 Contact dermatitis and other eczema due to other specified agent 11/05/2006 09/26/2015 Other atopic dermatitis and related conditions 0 11/05/2006 09/26/2015 XEROSIS////SEBACEOUS GLAND DIS NEC 11/05/2006 09/26/2015 Unspecified pruritic disorder 11/05/2006 Anxiety 07/08/2019 documented as of this encounter (statuses as of 05/14/2022) [facility]03-31-2021 History of Past illness Narrative* Problem Noted Date Resolved Date Pre-op testing 09/13/2020 09/13/2020 Sciatica 08/11/2009 02/20/2016 Contact dermatitis and other eczema, due to unspecified cause 11/05/2006 09/26/2015 Contact dermatitis and other eczema due to other specified agent 11/05/2006 09/26/2015 Other atopic dermatitis and related conditions 0 11/05/2006 09/26/2015 XEROSIS////SEBACEOUS GLAND DIS NEC 11/05/2006 09/26/2015 Unspecified pruritic disorder 11/05/2006 Anxiety 07/08/2019 documented as of this encounter (statuses as of 05/14/2022) [address]31-2021 History of Past illness Narrative* Problem Noted Date Resolved Date Pre-op testing 09/13/2020 09/13/2020 Sciatica 08/11/2009 02/20/2016 Contact dermatitis and other eczema, due to unspecified cause 11/05/2006 09/26/2015 Contact dermatitis and other eczema due to other specified agent 11/05/2006 09/26/2015 Other atopic dermatitis and related conditions 0 11/05/2006 09/26/2015 XEROSIS////SEBACEOUS GLAND DIS NEC 11/05/2006 09/26/2015 Unspecified pruritic disorder 11/05/2006 Anxiety 07/08/2019 documented as of this encounter (statuses as of 05/30/2022) [facility]03-31-2021 History of Past illness Narrative* Problem Noted Date Resolved Date Pre-op testing 09/13/2020 09/13/2020 Sciatica 08/11/2009 02/20/2016 Contact dermatitis and other eczema, due to unspecified cause 11/05/2006 09/26/2015 Contact dermatitis and other eczema due to other specified agent 11/05/2006 09/26/2015 Other atopic dermatitis and related conditions 0 11/05/2006 09/26/2015 XEROSIS////SEBACEOUS GLAND DIS NEC 11/05/2006 09/26/2015 Unspecified pruritic disorder 11/05/2006 Anxiety 07/08/2019 documented as of this encounter (statuses as of 06/17/2022) [facility]03-31-2021 History of Past illness Narrative* Problem Noted Date Resolved Date Pre-op testing 09/13/2020 09/13/2020 Sciatica 08/11/2009 02/20/2016 Contact dermatitis and other eczema, due to unspecified cause 11/05/2006 09/26/2015 Contact dermatitis and other eczema due to other specified agent 11/05/2006 09/26/2015 Other atopic dermatitis and related conditions 0 11/05/2006 09/26/2015 XEROSIS////SEBACEOUS GLAND DIS NEC 11/05/2006 09/26/2015 Unspecified pruritic disorder 11/05/2006 Anxiety 07/08/2019 documented as of this encounter (statuses as of 07/01/2022) [address]31-2021 History of Past illness Narrative* Problem Noted Date Resolved Date Pre-op testing 09/13/2020 09/13/2020 Sciatica 08/11/2009 02/20/2016 Contact dermatitis and other eczema, due to unspecified cause 11/05/2006 09/26/2015 Contact dermatitis and other eczema due to other specified agent 11/05/2006 09/26/2015 Other atopic dermatitis and related conditions 0 11/05/2006 09/26/2015 XEROSIS////SEBACEOUS GLAND DIS NEC 11/05/2006 09/26/2015 Unspecified pruritic disorder 11/05/2006 Anxiety 07/08/2019 documented as of this encounter (statuses as of 07/01/2022) [facility]03-31-2021 History of Past illness Narrative* Problem Noted Date Resolved Date Pre-op testing 09/13/2020 09/13/2020 Sciatica 08/11/2009 02/20/2016 Contact dermatitis and other eczema, due to unspecified cause 11/05/2006 09/26/2015 Contact dermatitis and other eczema due to other specified agent 11/05/2006 09/26/2015 Other atopic dermatitis and related conditions 0 11/05/2006 09/26/2015 XEROSIS////SEBACEOUS GLAND DIS NEC 11/05/2006 09/26/2015 Unspecified pruritic disorder 11/05/2006 Anxiety 07/08/2019 documented as of this encounter (statuses as of 07/22/2022) [facility]03-31-2021 History of Past illness Narrative* Problem Noted Date Resolved Date Pre-op testing 09/13/2020 09/13/2020 Sciatica 08/11/2009 02/20/2016 Contact dermatitis and other eczema, due to unspecified cause 11/05/2006 09/26/2015 Contact dermatitis and other eczema due to other specified agent 11/05/2006 09/26/2015 Other atopic dermatitis and related conditions 0 11/05/2006 09/26/2015 XEROSIS////SEBACEOUS GLAND DIS NEC 11/05/2006 09/26/2015 Unspecified pruritic disorder 11/05/2006 Anxiety 07/08/2019 documented as of this encounter (statuses as of 07/23/2022) [facility]03-31-2021 History of Past illness Narrative* Problem Noted Date Resolved Date Pre-op testing 09/13/2020 09/13/2020 Sciatica 08/11/2009 02/20/2016 Contact dermatitis and other eczema, due to unspecified cause 11/05/2006 09/26/2015 Contact dermatitis and other eczema due to other specified agent 11/05/2006 09/26/2015 Other atopic dermatitis and related conditions 0 11/05/2006 09/26/2015 XEROSIS////SEBACEOUS GLAND DIS NEC 11/05/2006 09/26/2015 Unspecified pruritic disorder 11/05/2006 Anxiety 07/08/2019 documented as of this encounter (statuses as of 07/23/2022) [facility]03-31-2021 History of Past illness Narrative* Problem Noted Date Resolved Date Pre-op testing 09/13/2020 09/13/2020 Sciatica 08/11/2009 02/20/2016 Contact dermatitis and other eczema, due to unspecified cause 11/05/2006 09/26/2015 Contact dermatitis and other eczema due to other specified agent 11/05/2006 09/26/2015 Other atopic dermatitis and related conditions 0 11/05/2006 09/26/2015 XEROSIS////SEBACEOUS GLAND DIS NEC 11/05/2006 09/26/2015 Unspecified pruritic disorder 11/05/2006 Anxiety 07/08/2019 documented as of this encounter (statuses as of 08/08/2022) [facility]03-31-2021 History of Past illness Narrative* Problem Noted Date Resolved Date Pre-op testing 09/13/2020 09/13/2020 Sciatica 08/11/2009 02/20/2016 Contact dermatitis and other eczema, due to unspecified cause 11/05/2006 09/26/2015 Contact dermatitis and other eczema due to other specified agent 11/05/2006 09/26/2015 Other atopic dermatitis and related conditions 0 11/05/2006 09/26/2015 XEROSIS////SEBACEOUS GLAND DIS NEC 11/05/2006 09/26/2015 Unspecified pruritic disorder 11/05/2006 Anxiety 07/08/2019 documented as of this encounter (statuses as of 08/08/2022) [facility]03[facility]31-2021 History of Past illness Narrative* Problem Noted Date Resolved Date Pre-op testing 09/13/2020 09/13/2020 Sciatica 08/11/2009 02/20/2016 Contact dermatitis and other eczema, due to unspecified cause 11/05/2006 09/26/2015 Contact dermatitis and other eczema due to other specified agent 11/05/2006 09/26/2015 Other atopic dermatitis and related conditions 0 11/05/2006 09/26/2015 XEROSIS////SEBACEOUS GLAND DIS NEC 11/05/2006 09/26/2015 Unspecified pruritic disorder 11/05/2006 Anxiety 07/08/2019 documented as of this encounter (statuses as of 08/13/2022) [facility]03-31-2021 History of Past illness Narrative* Problem Noted Date Resolved Date Pre-op testing 09/13/2020 09/13/2020 Sciatica 08/11/2009 02/20/2016 Contact dermatitis and other eczema, due to unspecified cause 11/05/2006 09/26/2015 Contact dermatitis and other eczema due to other specified agent 11/05/2006 09/26/2015 Other atopic dermatitis and related conditions 0 11/05/2006 09/26/2015 XEROSIS////SEBACEOUS GLAND DIS NEC 11/05/2006 09/26/2015 Unspecified pruritic disorder 11/05/2006 Anxiety 07/08/2019 documented as of this encounter (statuses as of 08/16/2022) [facility]03[facility]31-2021 History of Past illness Narrative* Problem Noted Date Resolved Date Pre-op testing 09/13/2020 09/13/2020 Sciatica 08/11/2009 02/20/2016 Contact dermatitis and other eczema, due to unspecified cause 11/05/2006 09/26/2015 Contact dermatitis and other eczema due to other specified agent 11/05/2006 09/26/2015 Other atopic dermatitis and related conditions 0 11/05/2006 09/26/2015 XEROSIS////SEBACEOUS GLAND DIS NEC 11/05/2006 09/26/2015 Unspecified pruritic disorder 11/05/2006 Anxiety 07/08/2019 documented as of this encounter (statuses as of 08/21/2022) [facility]02[facility]26[facility]2010 History of Past illness Narrative* Problem Noted Date Resolved Date Sciatica 08/11/2009 02/20/2016 Contact dermatitis and other eczema, due to unspecified cause 11/05/2006 09/26/2015 Contact dermatitis and other eczema due to other specified agent 11/05/2006 09/26/2015 Other atopic dermatitis and related conditions 0 11/05/2006 09/26/2015 XEROSIS////SEBACEOUS GLAND DIS NEC 11/05/2006 09/26/2015 Unspecified pruritic disorder 11/05/2006 Anxiety 07/08/2019 documented as of this encounter (statuses as of 08/27/2022) [facility]26[facility]2010 History of Past illness Narrative* Problem Noted Date Resolved Date Sciatica 08/11/2009 02/20/2016 Contact dermatitis and other eczema, due to unspecified cause 11/05/2006 09/26/2015 Contact dermatitis and other eczema due to other specified agent 11/05/2006 09/26/2015 Other atopic dermatitis and related conditions 0 11/05/2006 09/26/2015 XEROSIS////SEBACEOUS GLAND DIS NEC 11/05/2006 09/26/2015 Unspecified pruritic disorder 11/05/2006 Anxiety 07/08/2019 documented as of this encounter (statuses as of 08/27/2022) [place] [id number] History of Past illness Narrative* Problem Noted Date Resolved Date Sciatica 08/11/2009 02/20/2016 Contact dermatitis and other eczema, due to unspecified cause 11/05/2006 09/26/2015 Contact dermatitis and other eczema due to other specified agent 11/05/2006 09/26/2015 Other atopic dermatitis and related conditions 0 11/05/2006 09/26/2015 XEROSIS////SEBACEOUS GLAND DIS NEC 11/05/2006 09/26/2015 Unspecified pruritic disorder 11/05/2006 Anxiety 07/08/2019 documented as of this encounter (statuses as of 08/29/2022) [place] [id number] History of Past illness Narrative* Problem Noted Date Resolved Date Sciatica 08/11/2009 02/20/2016 Contact dermatitis and other eczema, due to unspecified cause 11/05/2006 09/26/2015 Contact dermatitis and other eczema due to other specified agent 11/05/2006 09/26/2015 Other atopic dermatitis and related conditions 0 11/05/2006 09/26/2015 XEROSIS////SEBACEOUS GLAND DIS NEC 11/05/2006 09/26/2015 Unspecified pruritic disorder 11/05/2006 Anxiety 07/08/2019 documented as of this encounter (statuses as of 09/02/2022) [facility] History of Past illness Narrative* Problem Noted Date Resolved Date Sciatica 08/11/2009 02/20/2016 Contact dermatitis and other eczema, due to unspecified cause 11/05/2006 09/26/2015 Contact dermatitis and other eczema due to other specified agent 11/05/2006 09/26/2015 Other atopic dermatitis and related conditions 0 11/05/2006 09/26/2015 XEROSIS////SEBACEOUS GLAND DIS NEC 11/05/2006 09/26/2015 Unspecified pruritic disorder 11/05/2006 Anxiety 07/08/2019 documented as of this encounter (statuses as of 09/11/2022) [address]26-2010 History of Past illness Narrative* Problem Noted Date Resolved Date Sciatica 08/11/2009 02/20/2016 Contact dermatitis and other eczema, due to unspecified cause 11/05/2006 09/26/2015 Contact dermatitis and other eczema due to other specified agent 11/05/2006 09/26/2015 Other atopic dermatitis and related conditions 0 11/05/2006 09/26/2015 XEROSIS////SEBACEOUS GLAND DIS NEC 11/05/2006 09/26/2015 Unspecified pruritic disorder 11/05/2006 Anxiety 07/08/2019 documented as of this encounter (statuses as of 09/11/2022) [facility]02-26-2010 History of Past illness Narrative* Problem Noted Date Resolved Date Sciatica 08/11/2009 02/20/2016 Contact dermatitis and other eczema, due to unspecified cause 11/05/2006 09/26/2015 Contact dermatitis and other eczema due to other specified agent 11/05/2006 09/26/2015 Other atopic dermatitis and related conditions 0 11/05/2006 09/26/2015 XEROSIS////SEBACEOUS GLAND DIS NEC 11/05/2006 09/26/2015 Unspecified pruritic disorder 11/05/2006 Anxiety 07/08/2019 documented as of this encounter (statuses as of 09/28/2022) [facility]02-26-2010 History of Past illness Narrative* Problem Noted Date Resolved Date Sciatica 08/11/2009 02/20/2016 Contact dermatitis and other eczema, due to unspecified cause 11/05/2006 09/26/2015 Contact dermatitis and other eczema due to other specified agent 11/05/2006 09/26/2015 Other atopic dermatitis and related conditions 0 11/05/2006 09/26/2015 XEROSIS////SEBACEOUS GLAND DIS NEC 11/05/2006 09/26/2015 Unspecified pruritic disorder 11/05/2006 Anxiety 07/08/2019 documented as of this encounter (statuses as of 09/30/2022) [facility]02-26-2010 History of Past illness Narrative* Problem Noted Date Resolved Date Sciatica 08/11/2009 02/20/2016 Contact dermatitis and other eczema, due to unspecified cause 11/05/2006 09/26/2015 Contact dermatitis and other eczema due to other specified agent 11/05/2006 09/26/2015 Other atopic dermatitis and related conditions 0 11/05/2006 09/26/2015 XEROSIS////SEBACEOUS GLAND DIS NEC 11/05/2006 09/26/2015 Unspecified pruritic disorder 11/05/2006 Anxiety 07/08/2019 documented as of this encounter (statuses as of 10/03/2022) [facility]02-26-2010 History of Past illness Narrative* Problem Noted Date Resolved Date Sciatica 08/11/2009 02/20/2016 Contact dermatitis and other eczema, due to unspecified cause 11/05/2006 09/26/2015 Contact dermatitis and other eczema due to other specified agent 11/05/2006 09/26/2015 Other atopic dermatitis and related conditions 0 11/05/2006 09/26/2015 XEROSIS////SEBACEOUS GLAND DIS NEC 11/05/2006 09/26/2015 Unspecified pruritic disorder 11/05/2006 Anxiety 07/08/2019 documented as of this encounter (statuses as of 11/28/2022) [facility]02[facility]26[facility]2010 History of Past illness Narrative* Problem Noted Date Resolved Date Sciatica 08/11/2009 02/20/2016 Contact dermatitis and other eczema, due to unspecified cause 11/05/2006 09/26/2015 Contact dermatitis and other eczema due to other specified agent 11/05/2006 09/26/2015 Other atopic dermatitis and related conditions 0 11/05/2006 09/26/2015 XEROSIS////SEBACEOUS GLAND DIS NEC 11/05/2006 09/26/2015 Unspecified pruritic disorder 11/05/2006 Anxiety 07/08/2019 documented as of this encounter (statuses as of 12/06/2022) [facility]02-26-2010 History of Past illness Narrative* Problem Noted Date Diagnosed Date Resolved Date Sciatica 08/11/2009 02/20/2016 Contact dermatitis and other eczema, due to unspecified cause 11/05/2006 09/26/2015 Contact dermatitis and other eczema due to other specified agent 11/05/2006 09/26/2015 Other atopic dermatitis and related conditions 11/05/2006 09/26/2015 XEROSIS////SEBACEOUS GLAND DIS NEC 11/05/2006 09/26/2015 Unspecified pruritic disorder 11/05/2006 09/26/2015 Anxiety 07/08/2019 documented as of this encounter (statuses as of 12/27/2022) [facility]02[facility]26-2010 History of Past illness Narrative* Problem Noted Date Diagnosed Date Resolved Date Sciatica 08/11/2009 02/20/2016 Contact dermatitis and other eczema, due to unspecified cause 11/05/2006 09/26/2015 Contact dermatitis and other eczema due to other specified agent 11/05/2006 09/26/2015 Other atopic dermatitis and related conditions 11/05/2006 09/26/2015 XEROSIS////SEBACEOUS GLAND DIS NEC 11/05/2006 09/26/2015 Unspecified pruritic disorder 11/05/2006 09/26/2015 Anxiety 07/08/2019 documented as of this encounter (statuses as of 01/13/2023) [facility]02-26-2010 History of Past illness Narrative* Problem Noted Date Diagnosed Date Resolved Date Sciatica 08/11/2009 02/20/2016 Contact dermatitis and other eczema, due to unspecified cause 11/05/2006 09/26/2015 Contact dermatitis and other eczema due to other specified agent 11/05/2006 09/26/2015 Other atopic dermatitis and related conditions 11/05/2006 09/26/2015 XEROSIS////SEBACEOUS GLAND DIS NEC 11/05/2006 09/26/2015 Unspecified pruritic disorder 11/05/2006 09/26/2015 Anxiety 07/08/2019 documented as of this encounter (statuses as of 01/20/2023) [facility]02-26-2010 History of Past illness Narrative* Problem Noted Date Diagnosed Date Resolved Date Sciatica 08/11/2009 02/20/2016 Contact dermatitis and other eczema, due to unspecified cause 11/05/2006 09/26/2015 Contact dermatitis and other eczema due to other specified agent 11/05/2006 09/26/2015 Other atopic dermatitis and related conditions 11/05/2006 09/26/2015 XEROSIS////SEBACEOUS GLAND DIS NEC 11/05/2006 09/26/2015 Unspecified pruritic disorder 11/05/2006 09/26/2015 Anxiety 07/08/2019 documented as of this encounter (statuses as of 01/22/2023) [facility]02[facility]26-2010 History of Past illness Narrative* Problem Noted Date Diagnosed Date Resolved Date Sciatica 08/11/2009 02/20/2016 Contact dermatitis and other eczema, due to unspecified cause 11/05/2006 09/26/2015 Contact dermatitis and other eczema due to other specified agent 11/05/2006 09/26/2015 Other atopic dermatitis and related conditions 11/05/2006 09/26/2015 XEROSIS////SEBACEOUS GLAND DIS NEC 11/05/2006 09/26/2015 Unspecified pruritic disorder 11/05/2006 09/26/2015 Anxiety 07/08/2019 documented as of this encounter (statuses as of 02/04/2023) [facility]02[facility]26-2010 History of Past illness Narrative* Problem Noted Date Diagnosed Date Resolved Date Sciatica 08/11/2009 02/20/2016 Contact dermatitis and other eczema, due to unspecified cause 11/05/2006 09/26/2015 Contact dermatitis and other eczema due to other specified agent 11/05/2006 09/26/2015 Other atopic dermatitis and related conditions 11/05/2006 09/26/2015 XEROSIS////SEBACEOUS GLAND DIS NEC 11/05/2006 09/26/2015 Unspecified pruritic disorder 11/05/2006 09/26/2015 Anxiety 07/08/2019 documented as of this encounter (statuses as of 02/08/2023) [facility]02[facility]2010 History of Past illness Narrative* Problem Noted Date Diagnosed Date Resolved Date Sciatica 08/11/2009 02/20/2016 Contact dermatitis and other eczema, due to unspecified cause 11/05/2006 09/26/2015 Contact dermatitis and other eczema due to other specified agent 11/05/2006 09/26/2015 Other atopic dermatitis and related conditions 11/05/2006 09/26/2015 XEROSIS////SEBACEOUS GLAND DIS NEC 11/05/2006 09/26/2015 Unspecified pruritic disorder 11/05/2006 09/26/2015 Anxiety 07/08/2019 documented as of this encounter (statuses as of 02/11/2023) [facility]02[facility]26[facility]2010 History of Past illness Narrative* Problem Noted Date Diagnosed Date Resolved Date Sciatica 08/11/2009 02/20/2016 Contact dermatitis and other eczema, due to unspecified cause 11/05/2006 09/26/2015 Contact dermatitis and other eczema due to other specified agent 11/05/2006 09/26/2015 Other atopic dermatitis and related conditions 11/05/2006 09/26/2015 XEROSIS////SEBACEOUS GLAND DIS NEC 11/05/2006 09/26/2015 Unspecified pruritic disorder 11/05/2006 09/26/2015 Anxiety 07/08/2019 documented as of this encounter (statuses as of 02/11/2023) [facility]02[facility]2010 History of Past illness Narrative* Problem Noted Date Diagnosed Date Resolved Date Sciatica 08/11/2009 02/20/2016 Contact dermatitis and other eczema, due to unspecified cause 11/05/2006 09/26/2015 Contact dermatitis and other eczema due to other specified agent 11/05/2006 09/26/2015 Other atopic dermatitis and related conditions 11/05/2006 09/26/2015 XEROSIS////SEBACEOUS GLAND DIS NEC 11/05/2006 09/26/2015 Unspecified pruritic disorder 11/05/2006 09/26/2015 Anxiety 07/08/2019 documented as of this encounter (statuses as of 02/19/2023) [facility]02[facility]2010 History of Past illness Narrative* Problem Noted Date Diagnosed Date Resolved Date Sciatica 08/11/2009 02/20/2016 Contact dermatitis and other eczema, due to unspecified cause 11/05/2006 09/26/2015 Contact dermatitis and other eczema due to other specified agent 11/05/2006 09/26/2015 Other atopic dermatitis and related conditions 11/05/2006 09/26/2015 XEROSIS////SEBACEOUS GLAND DIS NEC 11/05/2006 09/26/2015 Unspecified pruritic disorder 11/05/2006 09/26/2015 Anxiety 07/08/2019 documented as of this encounter (statuses as of 02/27/2023) [facility]02[facility]26[facility]2010 History of Past illness Narrative* Problem Noted Date Diagnosed Date Resolved Date Sciatica 08/11/2009 02/20/2016 Contact dermatitis and other eczema, due to unspecified cause 11/05/2006 09/26/2015 Contact dermatitis and other eczema due to other specified agent 11/05/2006 09/26/2015 Other atopic dermatitis and related conditions 11/05/2006 09/26/2015 XEROSIS////SEBACEOUS GLAND DIS NEC 11/05/2006 09/26/2015 Unspecified pruritic disorder 11/05/2006 09/26/2015 Anxiety 07/08/2019 documented as of this encounter (statuses as of 03/05/2023) [facility]02-26-2010 History of Past illness Narrative* Problem Noted Date Diagnosed Date Resolved Date Sciatica 08/11/2009 02/20/2016 Contact dermatitis and other eczema, due to unspecified cause 11/05/2006 09/26/2015 Contact dermatitis and other eczema due to other specified agent 11/05/2006 09/26/2015 Other atopic dermatitis and related conditions 11/05/2006 09/26/2015 XEROSIS////SEBACEOUS GLAND DIS NEC 11/05/2006 09/26/2015 Unspecified pruritic disorder 11/05/2006 09/26/2015 Anxiety 07/08/2019 documented as of this encounter (statuses as of 03/11/2023) [facility]02-26-2010 History of Past illness Narrative* Problem Noted Date Diagnosed Date Resolved Date Sciatica 08/11/2009 02/20/2016 Contact dermatitis and other eczema, due to unspecified cause 11/05/2006 09/26/2015 Contact dermatitis and other eczema due to other specified agent 11/05/2006 09/26/2015 Other atopic dermatitis and related conditions 11/05/2006 09/26/2015 XEROSIS////SEBACEOUS GLAND DIS NEC 11/05/2006 09/26/2015 Unspecified pruritic disorder 11/05/2006 09/26/2015 Anxiety 07/08/2019 documented as of this encounter (statuses as of 04/03/2023) [facility]02-26-2010 History of Past illness Narrative* Problem Noted Date Diagnosed Date Resolved Date Sciatica 08/11/2009 02/20/2016 Contact dermatitis and other eczema, due to unspecified cause 11/05/2006 09/26/2015 Contact dermatitis and other eczema due to other specified agent 11/05/2006 09/26/2015 Other atopic dermatitis and related conditions 11/05/2006 09/26/2015 XEROSIS////SEBACEOUS GLAND DIS NEC 11/05/2006 09/26/2015 Unspecified pruritic disorder 11/05/2006 09/26/2015 Anxiety 07/08/2019 documented as of this encounter (statuses as of 04/04/2023) [facility]02[facility]26-2010 History of Past illness Narrative* Problem Noted Date Diagnosed Date Resolved Date Sciatica 08/11/2009 02/20/2016 Contact dermatitis and other eczema, due to unspecified cause 11/05/2006 09/26/2015 Contact dermatitis and other eczema due to other specified agent 11/05/2006 09/26/2015 Other atopic dermatitis and related conditions 11/05/2006 09/26/2015 XEROSIS////SEBACEOUS GLAND DIS NEC 11/05/2006 09/26/2015 Unspecified pruritic disorder 11/05/2006 09/26/2015 Anxiety 07/08/2019 documented as of this encounter (statuses as of 04/08/2023) [facility]02[facility]26-2010 History of Past illness Narrative* Problem Noted Date Diagnosed Date Resolved Date Sciatica 08/11/2009 02/20/2016 Contact dermatitis and other eczema, due to unspecified cause 11/05/2006 09/26/2015 Contact dermatitis and other eczema due to other specified agent 11/05/2006 09/26/2015 Other atopic dermatitis and related conditions 11/05/2006 09/26/2015 XEROSIS////SEBACEOUS GLAND DIS NEC 11/05/2006 09/26/2015 Unspecified pruritic disorder 11/05/2006 09/26/2015 Anxiety 07/08/2019 documented as of this encounter (statuses as of 04/08/2023) [facility]02[facility]2010 History of Past illness Narrative* Problem Noted Date Diagnosed Date Resolved Date Sciatica 08/11/2009 02/20/2016 Contact dermatitis and other eczema, due to unspecified cause 11/05/2006 09/26/2015 Contact dermatitis and other eczema due to other specified agent 11/05/2006 09/26/2015 Other atopic dermatitis and related conditions 11/05/2006 09/26/2015 XEROSIS////SEBACEOUS GLAND DIS NEC 11/05/2006 09/26/2015 Unspecified pruritic disorder 11/05/2006 09/26/2015 Anxiety 07/08/2019 documented as of this encounter (statuses as of 04/09/2023) [facility]02[facility]2010 History of Past illness Narrative* Problem Noted Date Diagnosed Date Resolved Date Sciatica 08/11/2009 02/20/2016 Contact dermatitis and other eczema, due to unspecified cause 11/05/2006 09/26/2015 Contact dermatitis and other eczema due to other specified agent 11/05/2006 09/26/2015 Other atopic dermatitis and related conditions 11/05/2006 09/26/2015 XEROSIS////SEBACEOUS GLAND DIS NEC 11/05/2006 09/26/2015 Unspecified pruritic disorder 11/05/2006 09/26/2015 Anxiety 07/08/2019 documented as of this encounter (statuses as of 04/11/2023) [facility]02[facility]2010 History of Past illness Narrative* Problem Noted Date Diagnosed Date Resolved Date Sciatica 08/11/2009 02/20/2016 Contact dermatitis and other eczema, due to unspecified cause 11/05/2006 09/26/2015 Contact dermatitis and other eczema due to other specified agent 11/05/2006 09/26/2015 Other atopic dermatitis and related conditions 11/05/2006 09/26/2015 XEROSIS////SEBACEOUS GLAND DIS NEC 11/05/2006 09/26/2015 Unspecified pruritic disorder 11/05/2006 09/26/2015 Anxiety 07/08/2019 documented as of this encounter (statuses as of 04/16/2023) [facility]02[facility]2010 History of Past illness Narrative* Problem Noted Date Diagnosed Date Resolved Date Sciatica 08/11/2009 02/20/2016 Contact dermatitis and other eczema, due to unspecified cause 11/05/2006 09/26/2015 Contact dermatitis and other eczema due to other specified agent 11/05/2006 09/26/2015 Other atopic dermatitis and related conditions 11/05/2006 09/26/2015 XEROSIS////SEBACEOUS GLAND DIS NEC 11/05/2006 09/26/2015 Unspecified pruritic disorder 11/05/2006 09/26/2015 Anxiety 07/08/2019 documented as of this encounter (statuses as of 04/17/2023) [address]26-2010 History of Past illness Narrative* Problem Noted Date Diagnosed Date Resolved Date Sciatica 08/11/2009 02/20/2016 Contact dermatitis and other eczema, due to unspecified cause 11/05/2006 09/26/2015 Contact dermatitis and other eczema due to other specified agent 11/05/2006 09/26/2015 Other atopic dermatitis and related conditions 11/05/2006 09/26/2015 XEROSIS////SEBACEOUS GLAND DIS NEC 11/05/2006 09/26/2015 Unspecified pruritic disorder 11/05/2006 09/26/2015 Anxiety 07/08/2019 documented as of this encounter (statuses as of 04/17/2023) [place] [address]-26-2010 History of Past illness Narrative* Problem Noted Date Diagnosed Date Resolved Date Sciatica 08/11/2009 02/20/2016 Contact dermatitis and other eczema, due to unspecified cause 11/05/2006 09/26/2015 Contact dermatitis and other eczema due to other specified agent 11/05/2006 09/26/2015 Other atopic dermatitis and related conditions 11/05/2006 09/26/2015 XEROSIS////SEBACEOUS GLAND DIS NEC 11/05/2006 09/26/2015 Unspecified pruritic disorder 11/05/2006 09/26/2015 Anxiety 07/08/2019 documented as of this encounter (statuses as of 04/19/2023) [facility]02[facility]2010 History of Past illness Narrative* Problem Noted Date Diagnosed Date Resolved Date Sciatica 08/11/2009 02/20/2016 Contact dermatitis and other eczema, due to unspecified cause 11/05/2006 09/26/2015 Contact dermatitis and other eczema due to other specified agent 11/05/2006 09/26/2015 Other atopic dermatitis and related conditions 11/05/2006 09/26/2015 XEROSIS////SEBACEOUS GLAND DIS NEC 11/05/2006 09/26/2015 Unspecified pruritic disorder 11/05/2006 09/26/2015 Anxiety 07/08/2019 documented as of this encounter (statuses as of 04/20/2023) [facility]02[facility]2010 History of Past illness Narrative* Problem Noted Date Diagnosed Date Resolved Date Sciatica 08/11/2009 02/20/2016 Contact dermatitis and other eczema, due to unspecified cause 11/05/2006 09/26/2015 Contact dermatitis and other eczema due to other specified agent 11/05/2006 09/26/2015 Other atopic dermatitis and related conditions 11/05/2006 09/26/2015 XEROSIS////SEBACEOUS GLAND DIS NEC 11/05/2006 09/26/2015 Unspecified pruritic disorder 11/05/2006 09/26/2015 Anxiety 07/08/2019 documented as of this encounter (statuses as of 04/20/2023) [facility]02[facility]2010 History of Past illness Narrative* Problem Noted Date Diagnosed Date Resolved Date Sciatica 08/11/2009 02/20/2016 Contact dermatitis and other eczema, due to unspecified cause 11/05/2006 09/26/2015 Contact dermatitis and other eczema due to other specified agent 11/05/2006 09/26/2015 Other atopic dermatitis and related conditions 11/05/2006 09/26/2015 XEROSIS////SEBACEOUS GLAND DIS NEC 11/05/2006 09/26/2015 Unspecified pruritic disorder 11/05/2006 09/26/2015 Anxiety 07/08/2019 documented as of this encounter (statuses as of 04/20/2023) [facility]2010 History of Past illness Narrative* Problem Noted Date Diagnosed Date Resolved Date Sciatica 08/11/2009 02/20/2016 Contact dermatitis and other eczema, due to unspecified cause 11/05/2006 09/26/2015 Contact dermatitis and other eczema due to other specified agent 11/05/2006 09/26/2015 Other atopic dermatitis and related conditions 11/05/2006 09/26/2015 XEROSIS////SEBACEOUS GLAND DIS NEC 11/05/2006 09/26/2015 Unspecified pruritic disorder 11/05/2006 09/26/2015 Anxiety 07/08/2019 documented as of this encounter (statuses as of 04/23/2023) [facility]2010 History of Past illness Narrative* Problem Noted Date Diagnosed Date Resolved Date Sciatica 08/11/2009 02/20/2016 Contact dermatitis and other eczema, due to unspecified cause 11/05/2006 09/26/2015 Contact dermatitis and other eczema due to other specified agent 11/05/2006 09/26/2015 Other atopic dermatitis and related conditions 11/05/2006 09/26/2015 XEROSIS////SEBACEOUS GLAND DIS NEC 11/05/2006 09/26/2015 Unspecified pruritic disorder 11/05/2006 09/26/2015 Anxiety 07/08/2019 documented as of this encounter (statuses as of 04/23/2023) [facility]2010 History of Past illness Narrative* Problem Noted Date Diagnosed Date Resolved Date Sciatica 08/11/2009 02/20/2016 Contact dermatitis and other eczema, due to unspecified cause 11/05/2006 09/26/2015 Contact dermatitis and other eczema due to other specified agent 11/05/2006 09/26/2015 Other atopic dermatitis and related conditions 11/05/2006 09/26/2015 XEROSIS////SEBACEOUS GLAND DIS NEC 11/05/2006 09/26/2015 Unspecified pruritic disorder 11/05/2006 09/26/2015 Anxiety 07/08/2019 documented as of this encounter (statuses as of 05/02/2023) [facility]2010 History of Past illness Narrative* Problem Noted Date Diagnosed Date Resolved Date Sciatica 08/11/2009 02/20/2016 Contact dermatitis and other eczema, due to unspecified cause 11/05/2006 09/26/2015 Contact dermatitis and other eczema due to other specified agent 11/05/2006 09/26/2015 Other atopic dermatitis and related conditions 11/05/2006 09/26/2015 XEROSIS////SEBACEOUS GLAND DIS NEC 11/05/2006 09/26/2015 Unspecified pruritic disorder 11/05/2006 09/26/2015 Anxiety 07/08/2019 documented as of this encounter (statuses as of 05/05/2023) [facility]2010 History of Past illness Narrative* Problem Noted Date Diagnosed Date Resolved Date Sciatica 08/11/2009 02/20/2016 Contact dermatitis and other eczema, due to unspecified cause 11/05/2006 09/26/2015 Contact dermatitis and other eczema due to other specified agent 11/05/2006 09/26/2015 Other atopic dermatitis and related conditions 11/05/2006 09/26/2015 XEROSIS////SEBACEOUS GLAND DIS NEC 11/05/2006 09/26/2015 Unspecified pruritic disorder 11/05/2006 09/26/2015 Anxiety 07/08/2019 documented as of this encounter (statuses as of 05/06/2023) [facility]02[facility]26[facility]2010 History of Past illness Narrative* Problem Noted Date Diagnosed Date Resolved Date Sciatica 08/11/2009 02/20/2016 Contact dermatitis and other eczema, due to unspecified cause 11/05/2006 09/26/2015 Contact dermatitis and other eczema due to other specified agent 11/05/2006 09/26/2015 Other atopic dermatitis and related conditions 11/05/2006 09/26/2015 XEROSIS////SEBACEOUS GLAND DIS NEC 11/05/2006 09/26/2015 Unspecified pruritic disorder 11/05/2006 09/26/2015 Anxiety 07/08/2019 documented as of this encounter (statuses as of 07/29/2023) [facility]2010 History of Past illness Narrative* Problem Noted Date Diagnosed Date Resolved Date Sciatica 08/11/2009 02/20/2016 Contact dermatitis and other eczema, due to unspecified cause 11/05/2006 09/26/2015 Contact dermatitis and other eczema due to other specified agent 11/05/2006 09/26/2015 Other atopic dermatitis and related conditions 11/05/2006 09/26/2015 XEROSIS////SEBACEOUS GLAND DIS NEC 11/05/2006 09/26/2015 Unspecified pruritic disorder 11/05/2006 09/26/2015 Anxiety 07/08/2019 documented as of this encounter (statuses as of 08/06/2023) [facility]2010 History of Past illness Narrative* Problem Noted Date Diagnosed Date Resolved Date Sciatica 08/11/2009 02/20/2016 Contact dermatitis and other eczema, due to unspecified cause 11/05/2006 09/26/2015 Contact dermatitis and other eczema due to other specified agent 11/05/2006 09/26/2015 Other atopic dermatitis and related conditions 11/05/2006 09/26/2015 XEROSIS////SEBACEOUS GLAND DIS NEC 11/05/2006 09/26/2015 Unspecified pruritic disorder 11/05/2006 09/26/2015 Anxiety 07/08/2019 documented as of this encounter (statuses as of 08/07/2023) [facility]02[facility]2010 History of Past illness Narrative* Problem Noted Date Diagnosed Date Resolved Date Sciatica 08/11/2009 02/20/2016 Contact dermatitis and other eczema, due to unspecified cause 11/05/2006 09/26/2015 Contact dermatitis and other eczema due to other specified agent 11/05/2006 09/26/2015 Other atopic dermatitis and related conditions 11/05/2006 09/26/2015 XEROSIS////SEBACEOUS GLAND DIS NEC 11/05/2006 09/26/2015 Unspecified pruritic disorder 11/05/2006 09/26/2015 Anxiety 07/08/2019 documented as of this encounter (statuses as of 08/08/2023) [facility]2010 History of Past illness Narrative* Problem Noted Date Diagnosed Date Resolved Date Sciatica 08/11/2009 02/20/2016 Contact dermatitis and other eczema, due to unspecified cause 11/05/2006 09/26/2015 Contact dermatitis and other eczema due to other specified agent 11/05/2006 09/26/2015 Other atopic dermatitis and related conditions 11/05/2006 09/26/2015 XEROSIS////SEBACEOUS GLAND DIS NEC 11/05/2006 09/26/2015 Unspecified pruritic disorder 11/05/2006 09/26/2015 Anxiety 07/08/2019 documented as of this encounter (statuses as of 08/16/2023) [facility] History of Past illness Narrative* Problem Noted Date Diagnosed Date Resolved Date Sciatica 08/11/2009 02/20/2016 Contact dermatitis and other eczema, due to unspecified cause 11/05/2006 09/26/2015 Contact dermatitis and other eczema due to other specified agent 11/05/2006 09/26/2015 Other atopic dermatitis and related conditions 11/05/2006 09/26/2015 XEROSIS////SEBACEOUS GLAND DIS NEC 11/05/2006 09/26/2015 Unspecified pruritic disorder 11/05/2006 09/26/2015 Anxiety 07/08/2019 documented as of this encounter (statuses as of 08/18/2023) [facility] History of Past illness Narrative* Problem Noted Date Diagnosed Date Resolved Date Sciatica 08/11/2009 02/20/2016 Contact dermatitis and other eczema, due to unspecified cause 11/05/2006 09/26/2015 Contact dermatitis and other eczema due to other specified agent 11/05/2006 09/26/2015 Other atopic dermatitis and related conditions 11/05/2006 09/26/2015 XEROSIS////SEBACEOUS GLAND DIS NEC 11/05/2006 09/26/2015 Unspecified pruritic disorder 11/05/2006 09/26/2015 Anxiety 07/08/2019 documented as of this encounter (statuses as of 09/01/2023) [facility] History of Past illness Narrative* Problem Noted Date Diagnosed Date Resolved Date Sciatica 08/11/2009 02/20/2016 Contact dermatitis and other eczema, due to unspecified cause 11/05/2006 09/26/2015 Contact dermatitis and other eczema due to other specified agent 11/05/2006 09/26/2015 Other atopic dermatitis and related conditions 11/05/2006 09/26/2015 XEROSIS////SEBACEOUS GLAND DIS NEC 11/05/2006 09/26/2015 Unspecified pruritic disorder 11/05/2006 09/26/2015 Anxiety 07/08/2019 documented as of this encounter (statuses as of 09/01/2023) [facility] History of Past illness Narrative* Problem Noted Date Diagnosed Date Resolved Date Sciatica 08/11/2009 02/20/2016 Contact dermatitis and other eczema, due to unspecified cause 11/05/2006 09/26/2015 Contact dermatitis and other eczema due to other specified agent 11/05/2006 09/26/2015 Other atopic dermatitis and related conditions 11/05/2006 09/26/2015 XEROSIS////SEBACEOUS GLAND DIS NEC 11/05/2006 09/26/2015 Unspecified pruritic disorder 11/05/2006 09/26/2015 Anxiety 07/08/2019 documented as of this encounter (statuses as of 09/05/2023) [facility] History of Past illness Narrative* Problem Noted Date Diagnosed Date Resolved Date Sciatica 08/11/2009 02/20/2016 Contact dermatitis and other eczema, due to unspecified cause 11/05/2006 09/26/2015 Contact dermatitis and other eczema due to other specified agent 11/05/2006 09/26/2015 Other atopic dermatitis and related conditions 11/05/2006 09/26/2015 XEROSIS////SEBACEOUS GLAND DIS NEC 11/05/2006 09/26/2015 Unspecified pruritic disorder 11/05/2006 09/26/2015 Anxiety 07/08/2019 documented as of this encounter (statuses as of 09/17/2023) [facility] History of Past illness Narrative* Problem Noted Date Diagnosed Date Resolved Date Sciatica 08/11/2009 02/20/2016 Contact dermatitis and other eczema, due to unspecified cause 11/05/2006 09/26/2015 Contact dermatitis and other eczema due to other specified agent 11/05/2006 09/26/2015 Other atopic dermatitis and related conditions 11/05/2006 09/26/2015 XEROSIS////SEBACEOUS GLAND DIS NEC 11/05/2006 09/26/2015 Unspecified pruritic disorder 11/05/2006 09/26/2015 Anxiety 07/08/2019 documented as of this encounter (statuses as of 09/17/2023) [facility] Florinda Martinez [facility] Note Date/Time October 04, 2024 2:4 7pm [facility] Medical Records Department [address] [place] [address] Anesthesia Postop Eval II 10/04/24 1251 MR#: [id number] Acct: [id number] Name: SANTY RAZA Rep #:[id number] : 1960 63 From: Florinda Martinez MD PCP: ALEXI Freedman Status:REG S DC Y Race: C Location: [place] [address] Anesthesia Postop Eval I Sum Postop Eval Completion status Anesthesia document: Postop Eval 1 completed: Yes Anesthesia Postop Eval I Summary Anesthesia Postop Eval I Summary: Anesthesia Postop Eval I: Assessment Summary Airway patent Yes 10/04/24 12:28 COVERAGE ANALYST.HBARR Spontaneous unlabored Yes 10/04/24 12:28 COVERAGE ANALYST.HBARR respirations Mental status Awake 10/04/24 12:28 COVERAGE ANALYST.HBARR nausea No 10/04/24 12:28 COVERAGE ANALYST.HBARR Vomiting No 10/04/24 12:28 COVERAGE ANALYST.HBARR Anesthesia Postop Eval I: Fluid Summary Crystalloid volume administer 900 10/04/24 12:28 COVERAGE ANALYST.HBARR (ml) Colloids volume administered ( ml) Blood Product volume administered (ml) Total IV fluid infused 900 10/04/24 12:28 COVERAGE ANALYST.HBARR Anesthesia Postop Eval I: Summary Notes Anesthesia Complication No 10/04/24 12:28 COVERAGE ANALYST.HBARR Anesthesia Complication Comment: Post-operative progress note Anesthesia: Postop Eval II Evaluation Mental status: Awake Pain Level: 0 nausea: No Vomiting: No 10/04/24 1251 <Electronically signed by Florinda Martinez MD > Date _ Florinda Martinez MD Cosigner Signature: Date CC: ~ Signed [facility] Work Phone: Consult note Author Alexis Yu [facility] Note Date/Time January 31, 2025 9: 14am [facility] Medical Records Department [address] [place] [id number] Pre-Anesthesia Evaluation 01/31/2508 MR#: [id number] Acct: [id number] Name: SANTY RAZA Rep #:[id number] : 1960 64 From: Alexis Yu MD PCP: ALEXI Freedman Status:REG S DC Y Race: C Location: [place] [address] ASA Classification* ASA Classification ASA Classification: 3 Assessment & Plan Anesthesia* Anesthesia Assessment Anesthesia Assessment: Discussed sedation and/or anesthesia options, risks, benefits, and alternatives with patient/parents/legal guardian/POA. Questions invited. The patient/parents/legal guardian/POA seems to understand and agrees to proceedwith anesthesia plan. Reviewed the physical assessment, medical history, allergy history and patient home medications list prior to surgery/procedure/anesthetic and documented any changes. Performed airway and anesthesia risk assessments. Anesthesia Type Anesthesia Type: MAC History Source History Obtained from:: Patient and Chart Anesthesia Focused Assessment* Temperature: 97.5 F Pulse Rate: 76 Blood Pressure: 129/70 Respiratory Rate: 18 Pulse Ox: 97 Oxygen Delivery Method: Nasal Cannula Oxygen Flow Rate (L/min): 2 Airway Assessment Mouth opens: 2 cm Mallampati Score: IV Teeth Condition: Dentures (Patient has full upper and lower dentures. They are out.) Neck Range of motion (ROM): Limited ROM (Somewhat Decreased) Labs Anesthesia Preop lab: CBC WBC 10.0 K/mm3 (4.4-11.0) 09/21/24 10:09/21/24 RBC 4.92 M/mm3 (4.2-5.4) 09/21/24 10:09/21/24 Hgb 15.4 g/dL (12.0-15.0) H 09/21/24 10:21 5 Hct 44.6 % (37-47) 09/21/24 10:09/21/24 Plt Count 247 K/mm3 (150-450) 09/21/24 10:09/21/24 CHEMISTRY Potassium 4.3 mmol/L (3.3-5.1) 09/21/24 10:09/21/24 Sodium 138 mmol/L (133-145) 09/21/24 10:09/21/24 BUN 14 mg/dL (4-19) 09/21/24 10:09/21/24 Creatinine 0.78 mg/dL (0.70-1.20) 09/21/24 10:09/21/24 Glucose 121 mg/dL (70-99) H 09/21/24 10:09/21/24 TSH 1.440 uIU/mL (0.300-4.200) 09/21/24 10:02/07 COAG Pre-Assessment Diagnosis/Proposed Procedure Planned Operative Procedure(s): Block, Caudal Anesthesia History 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 When Was Last Pacemaker Check QUESTION #4 FULL TEXT: You/Your Family Experience fever (hyperthermia) with Anesthesia Last Oral Intake Last Oral intake: Last Oral Intake NPO since 00:00 01/31/25 08:49 Meds taken in AM with sips of Yes 01/31/25 08:49 water? Meds patient instructed to levothyroxine 01/31/25 08:49 take am of surgery Any additional information?: Yes Meds taken in AM with sips of water?: Yes Meds patient instructed to take am of surgery: Levothyroxine, prednisone. PONV PONV - plant breeder scientist: PONV - plant breeder scientist Female Yes 01/25/25 09:33 HX of Motion Sickness No 01/25/25 09:33 HX of N/V After Surgery No 01/25/25 09:33 Non-Smoker Yes 01/25/25 09:33 Duration of Surgery greater No 01/25/25 09:33 than 60 minutes Number of Risk Factors 2 01/25/25 09:33 PONV Score Moderate Risk 01/25/25 09:33 Height & Weight Height & Weight: Anesthesia: Height & Weight Height 5 ft 5 in 01/31/25 08:49 Weight: 143.1 kg 01/31/25 08:49 Body Mass Index (BMI) 52.4 01/31/25 08:49 Respiratory Assessment Respiratory Assessment - plant breeder scientist: Respiratory Tract Infection Hx - plant breeder scientist Hx Respiratory Tract Infection No 01/25/25 09:33 STOP Sleep Apnea STOP Sleep Apnea - plant breeder scientist: STOP Sleep Apnea - plant breeder scientist Hx Hypertension Yes: CONTROLLED WITH MEDS 01/25/25 09:33 Hx Sleep Apnea No 01/25/25 09:33 CPAP Yes: DOES NOT USE 01/25/25 09:33 BIPAP No 01/25/25 09:33 Do you snore loudly (louder No 01/25/25 09:33 than talking or can be heard Do you often feel tired/ No 01/25/25 09:33 fatigued/ sleepy during daytime? Has anyone observed you stop No 01/25/25 09:33 breathing during sleep? STOP Results Negative 01/25/25 09:33 QUESTION #5 FULL TEXT : Do you snore loudly (louder than talking or can be heard through closed doors)? 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 Specify any problems Hx of Preganancy in last 3 No 01/25/25 09:33 Months Nurse Filling Out Transfusion VCHRISTIN 01/25/25 09:33 & Questions: Date: 01/25/25 01/25/25 09:33 Time: 09:34 01/25/25 09:33 Patient unable to answer at this time (ie. confused, unrespo /Reproduction History /Reproductive History - plant breeder scientist: /Reproductive Hx- plant breeder scientist Hx Now No 01/25/25 09:33 Gestational Age (in weeks): EDC: Hx Hx Para Hx Section SAB No 01/25/25 09:33 Active Medications Active Medications: Current Medications Generic Name Dose Route Start Last Admin Trade Name Freq PRN Reason Stop Dose Admin Lactated Ringer's 1,000 mls @ 15 mls/hr 01/31/25 08:45 01/31/25 08:58 IV 15 mls/hr .Q48H ZAIRE Administration PFSH Medical History Former smoker Post-menopausal History of steroid therapy Thyroid disease Walker as ambulation aid Injury of head and neck Blackout Difficulty swallowing History of hiatal hernia Asthma History of pain when walking History of edema On home oxygen therapy Pain Loss of hearing Wears hearing aid Wears dentures Wears glasses Restless legs Gastric reflux Hoarseness Chronic cough Shortness of breath on exertion History of stress test Anxiety Depression Hypothyroid Hypertension Back pain Home Medications ?Medication ?Instructions ?Recorded ?Last Taken ?Type alprazolam 1 mg tablet (Xanax) 1 mg PO DAILY PRN Anxie ty 09/22/15 Unknown History furosemide 20 mg tablet 20 mg PO DAILY 11/29/1708/14 History lansoprazole 15 mg capsule,delayed 15 mg PO DAILY 11/1408/29/24 History release albuterol sulfate 90 mcg/actuation 1 - 2 puff inhalati on Q4H PRN PRN 12/05/19 10/04/24 08:30 History aerosol inhaler Sob &/Or Wheezing amitriptyline 25 mg tablet 25 mg PO QHS 06/26/2108/29 History amlodipine 5 mg tablet 5 mg PO DAILY 06/26/2108/29 History cholecalciferol (vitamin D3) 125 125 mcg PO DAILY 06/1608/29/24 History mcg (5,000 unit) tablet ondansetron HCl 4 mg tablet 4 mg PO Q6H PRN Nausea 05/07 Unknown History albuterol sulfate 2.5 mg/3 mL 2.5 mg inhalation Q6H TN N 10/27/23 10/04/24 06:00 History (0.083 %) solution for nebulization shortness of breat h or wheezing venlafaxine 150 mg 150 mg PO QAM 09/01/24 Unkno wn History capsule,extended release 24 hr (Effexor XR) OXYGEN - Supplemental ([facility] 01/25/25 Unknown History INFORMATIONAL USE ONLY) atorvastatin 10 mg tablet 10 mg PO QHS cholesterol 06/09 Unknown History budesonide-formoterol HFA 160 2 puff inhalation BID Unknown History mcg-4.5 mcg/actuation aerosol inhaler (Symbicort) bupropion HCl 300 mg 24 hr tablet, 300 mg PO DAILY 06/09 Unknown History extended release gabapentin 100 mg capsule 100 mg PO DAILY 01/25/25 Unk nown History hydrocodone-acetaminophen 5-325mg 1 tab PO Q8H PRN marian n 01/25/25 Unknown History 5mg-325mg levothyroxine 200 mcg tablet 200 mcg PO DAILY 01/25/25 01/31/25 History lisinopril 40 mg tablet 40 mg PO DAILY 01/25/25 Unkn own History loratadine 10 mg tablet 10 mg PO DAILY 01/25/25 Unkn own History Allergy/AdvReac Type Severity Reaction Status Date / Time amlodipine Allergy Intermediate Other Verified 01/31/25 08:49 doxycycline Allergy Intermediate Other Verified 01/31/25 08:49 meloxicam Allergy Intermediate Other Verified 01/31/25 08:49 Fish Containing Products Allergy Itching Verified 01/31/25 08:49 peanut Allergy Itching Verified 01/31/25 08:49 levofloxacin (From Levaquin) AdvReac Other Verified 01/31/25 08:49 Surgical History Hx of ventral hernia repair S/P repair of ventral hernia H/O hernia repair History of carpal tunnel surgery H/O tubal ligation History of placement of ear tubes Hx of breast reduction, elective Social History Smoking Status: Former smoker alcohol intake: never Review of Systems (Anesthesia) ROS Narrative System reviewed and no additional complaints, except as documented. Physical Exam Resp clear to auscultation bilaterally 01/31/2514 <Electronically signed by Alexis osullivan MD> Date _ Alexis Yu MD Cosigner Signature: Date CC: ~ Signed [facility] Work Phone: Consult note Author Justyna Lafleur [facility] Note Date/Time January 31, 2025 9: 34am [facility] Medical Records Department [address] [place] [address] Anesthesia Postop Eval I 01/31/25932 MR#: [id number] Acct: [id number] Name: SANTY RAZA Rep #:[id number] : 1960 64 From: Justyna Lafleur CRNA PCP: Deloris Haagen, [employer] OFFICER-C Status:REG S DC Y Race: C Location: [place] [address] Anesthesia: Postop Eval I Current Vital Signs Temperature: 97 F Pulse Rate: 78 Blood Pressure: 120/78 Respiratory Rate: 18 Pulse Ox: 99 Assessment Airway patent: Yes Spontaneous unlabored respirations: Yes nausea: No Vomiting: No Anesthesia Complication: No Fluid Hydration Crystalloid volume administer (ml): 200 Total IV fluid infused: 200 Progress Note Anesthesia document: Postop Eval 1 completed: Yes 01/31/25 0934 <Electronically signed by Justyna parry CRNA> Date _ Justyna Lafleur COVERAGE ANALYST Cosigner Signature: Date CC: ~ Signed [facility] Work Phone: Evaluation + Plan note No data available for this section [facility] Evaluation note* Diagnosis Hypothyroidism, unspecified type [facility] Diagnosis Bronchitis- Primary Bronchitis, not specified as acute or chronic [facility] Diagnosis Heel callus- Primary Corns and callosities [facility] this [facility] Diagnosis Generalized anxiety disorder with panic attacks [facility] Diagnosis Hypothyroidism, unspecified type- Primary [facility] this [facility] Diagnosis Wheezing [facility] this [facility] Diagnosis Generalized anxiety disorder with panic attacks- Primary Medication management Encounter for long-term (current) use of other medications [facility] this [facility] Diagnosis Hypothyroidism, acquired- Primary Unspecified hypothyroidism [facility] this [facility] Diagnosis PMB (postmenopausal bleeding)- Primary Postmenopausal bleeding [facility] Diagnosis PMB (postmenopausal bleeding)- Primary Postmenopausal bleeding [facility] this [facility] Diagnosis Generalized anxiety disorder with panic attacks documented in this encounter [facility] note* Diagnosis GERD without esophagitis Esophageal reflux documented in this encounter [facility] note* Diagnosis Cellulitis of skin- Primary Cellulitis and abscess of unspecified site Rash Rash and other nonspecific skin eruption documented in this encounter [facility] note* Diagnosis Screening for ischemic heart disease- Primary [facility] Diagnosis Rash- Primary Rash and other nonspecific skin eruption documented in this encounter [facility] note* Diagnosis Shortness of breath- Primary documented in this encounter [facility] note* Diagnosis Encounter for screening mammogram for breast cancer documented in this encounter [facility] note* Diagnosis Acute cystitis without hematuria- Primary Acute cystitis UTI symptoms Other symptoms involving urinary system Generalized anxiety disorder with panic attacks Symptoms of upper respiratory infection (URI) documented in this encounter [facility] note* Diagnosis Bronchitis- Primary Bronchitis, not specified as acute or chronic Candidiasis Candidiasis of unspecified site documented in this encounter [facility] note* Diagnosis Generalized anxiety disorder with panic attacks documented in this encounter [facility] note* Diagnosis Rash- Primary Rash and other nonspecific skin eruption documented in this encounter [facility] noteNo assessment information availableWSelect Medical [facility] [place] Work Phone: Evaluation note* Diagnosis Mucopurulent chronic bronchitis (HCC)- Primary Mucopurulent chronic bronchitis Yeast infection, oral documented in this encounter [facility] note* Diagnosis Wheezing documented in this encounter [facility] note* Diagnosis Generalized anxiety disorder with panic attacks documented in this encounter [facility] note* Diagnosis Non-recurrent abdominal hernia without obstruction or gangrene, unspecified hernia type- Primary documented in this encounter [facility] note* Diagnosis Ventral hernia without obstruction or gangrene- Primary Ventral hernia, unspecified, without mention of obstruction or gangrene Ventral hernia without obstruction or gangrene Ventral hernia, unspecified, without mention of obstruction or gangrene documented in this encounter [facility] note* Diagnosis Non-recurrent abdominal hernia without obstruction or gangrene, unspecified hernia type- Primary Ventral hernia without obstruction or gangrene Ventral hernia, unspecified, without mention of obstruction or gangrene documented in this encounter [facility] note* Diagnosis Pre-op evaluation- Primary Preoperative examination, unspecified BMI 45.0-49.9, adult (HCC) Body Mass Index 45.0-49.9, adult Generalized anxiety disorder with panic attacks Hypothyroidism, unspecified type GERD without esophagitis Esophageal reflux TRINI (obstructive sleep apnea) Obstructive sleep apnea (adult) (pediatric) Essential hypertension, benign Mucopurulent chronic bronchitis (HCC) Mucopurulent chronic bronchitis Ventral hernia without obstruction or gangrene Ventral hernia, unspecified, without mention of obstruction or gangrene [facility]* Diagnosis Pre-op evaluation- Primary Preoperative examination, unspecified Ventral hernia without obstruction or gangrene Ventral hernia, unspecified, without mention of obstruction or gangrene documented [facility] this [facility]* Diagnosis SOB (shortness of breath)- Primary Shortness of breath Mucopurulent chronic bronchitis (HCC) Mucopurulent chronic bronchitis Essential hypertension, benign Morbid obesity with BMI of 45.0-49.9, adult (HCC) Morbid obesity Thrombocytopenia, unspecified (HCC) Thrombocytopenia, unspecified Ventral hernia without obstruction or gangrene Ventral hernia, unspecified, without mention of obstruction or gangrene documented [facility] this [facility]* Diagnosis Non-recurrent abdominal hernia without obstruction or gangrene, unspecified hernia type- Primary [facility]* Diagnosis Vitamin D deficiency Unspecified vitamin D deficiency [facility] this [facility]* Diagnosis Non-recurrent abdominal hernia without obstruction or gangrene, unspecified hernia type- Primary [facility] this [facility]* Diagnosis Generalized anxiety disorder with panic attacks [facility] this [facility]* Diagnosis Osteoarthritis of spine with radiculopathy, lumbar region- Primary Spondylosis of lumbar region without myelopathy or radiculopathy Lumbosacral spondylosis without myelopathy Disabling back pain Backache, unspecified Morbid obesity with BMI of 45.0-49.9, adult (HCC) Morbid obesity [facility] this [facility]* Diagnosis Generalized anxiety disorder with panic attacks [facility] this [facility]* Diagnosis Hypothyroidism, acquired Unspecified hypothyroidism documented [facility] this [facility]* Diagnosis Hyperlipidemia LDL goal <130- Primary Other and unspecified hyperlipidemia [facility]* Diagnosis Hyperlipidemia LDL goal <130 Other and unspecified hyperlipidemia [facility]* Diagnosis Generalized anxiety disorder with panic attacks [facility]* Diagnosis Generalized anxiety disorder with panic attacks documented in this encounter [facility] note* Diagnosis Generalized anxiety disorder with panic attacks- Primary [facility]* Diagnosis Generalized anxiety disorder with panic attacks [facility]* Diagnosis Bacterial pneumonia- Primary Bacterial pneumonia, unspecified Mucopurulent chronic bronchitis (HCC) Mucopurulent chronic bronchitis Tobacco abuse Tobacco use disorder [facility]* Diagnosis Bacterial pneumonia- Primary Bacterial pneumonia, unspecified documented in this encounter [facility] note* Diagnosis Bacterial pneumonia- Primary Bacterial pneumonia, unspecified Depression, recurrent (HCC) Major depressive disorder, recurrent episode, unspecified documented in this encounter [facility] note* Diagnosis Encounter for screening for lung cancer- Primary Former cigarette smoker Personal history of tobacco use, presenting hazards to health Pneumonia of right middle lobe due to infectious organism [facility] Diagnosis Generalized anxiety disorder with panic attacks [facility]* Diagnosis Otorrhea, bilateral- Primary documented in this encounter [facility] note* Diagnosis Mucopurulent chronic bronchitis (HCC) Mucopurulent chronic bronchitis [facility]* Diagnosis GERD without esophagitis Esophageal reflux documented in this encounter [facility] note* Diagnosis Encounter for screening mammogram for breast cancer documented in this encounter [facility] note* Diagnosis Non-recurrent abdominal hernia without obstruction or gangrene, unspecified hernia type [facility] Diagnosis [facility] Diagnosis Generalized anxiety disorder with panic attacks- Primary [facility] Diagnosis Mucopurulent chronic bronchitis (HCC)- Primary Mucopurulent chronic bronchitis documented in this encounter [facility] note* Diagnosis Sinobronchitis- Primary Unspecified sinusitis (chronic) Mucopurulent chronic bronchitis (HCC) Mucopurulent chronic bronchitis documented in this encounter [facility] note* Diagnosis SOB (shortness of breath) Shortness of breath Mucopurulent chronic bronchitis (HCC) Mucopurulent chronic bronchitis [facility] this [facility] Diagnosis Elbow swelling, right- Primary Olecranon bursitis of right elbow Olecranon bursitis [facility]* Diagnosis Nausea- Primary Nausea alone GERD without esophagitis Esophageal reflux [facility] Diagnosis Generalized anxiety disorder with panic attacks [facility] Diagnosis Discomfort of chest wall- Primary Painful respiration Olecranon bursitis of right elbow Olecranon bursitis [facility] this [facility] Diagnosis Essential hypertension, benign [facility]* Diagnosis Vitamin D deficiency Unspecified vitamin D deficiency [facility]* Diagnosis Generalized anxiety disorder with panic attacks [facility]* Diagnosis Generalized anxiety disorder with panic attacks [facility] this [facility] Diagnosis Hypothyroidism, acquired Unspecified hypothyroidism documented [facility] this [facility] Diagnosis Mucopurulent chronic bronchitis (HCC) Mucopurulent chronic bronchitis [facility] this [facility] Diagnosis Essential hypertension, benign- Primary Prediabetes Other abnormal glucose Hyperlipidemia LDL goal <130 Other and unspecified hyperlipidemia Generalized anxiety disorder with panic attacks Hypothyroidism, unspecified type TRINI (obstructive sleep apnea) Obstructive sleep apnea (adult) (pediatric) [facility]* Diagnosis Leukocytosis, unspecified type- Primary Elevated alkaline phosphatase level Other nonspecific abnormal serum enzyme levels [facility]* Diagnosis Encounter for screening mammogram for breast cancer [facility] Diagnosis Bilateral leg edema Edema [facility] this [facility] Diagnosis Anxiety Anxiety state, unspecified documented in this [facility] Diagnosis Generalized anxiety disorder with panic attacks documented [facility] this [facility] Diagnosis Essential hypertension, benign documented in this [facility] Diagnosis Mucopurulent chronic bronchitis (HCC)- Primary Mucopurulent chronic bronchitis [facility] this [facility] Diagnosis Hyperlipidemia LDL goal <130 Other and unspecified hyperlipidemia Mucopurulent chronic bronchitis (HCC) Mucopurulent chronic bronchitis [facility]* Diagnosis Leg swelling- Primary Swelling of limb [facility]* Diagnosis Bilateral leg edema- Primary Edema Wheezing SOB (shortness of breath) Shortness of breath Anxiety Anxiety state, unspecified Essential hypertension, benign Acute otitis externa of left ear, unspecified type [facility]* Diagnosis Hypothyroidism, acquired Unspecified hypothyroidism documented in this encounter [facility] note* Diagnosis Encounter for screening mammogram for breast cancer [facility]* Diagnosis Lung nodules Other nonspecific abnormal finding of lung field [facility]* Diagnosis Former tobacco use- Primary Personal history of tobacco use, presenting hazards to health Encounter for screening for lung cancer [facility]* Diagnosis Bilateral leg edema- Primary Edema Depression, recurrent (HCC) Major depressive disorder, recurrent episode, unspecified documented in this encounter [facility] note* Diagnosis Preoperative examination- Primary Preoperative examination, unspecified Stress incontinence Female stress incontinence TRINI (obstructive sleep apnea) Obstructive sleep apnea (adult) (pediatric) Mucopurulent chronic bronchitis (HCC) Mucopurulent chronic bronchitis Tobacco abuse Tobacco use disorder Shortness of breath Essential hypertension, benign Hyperlipidemia LDL goal <130 Other and unspecified hyperlipidemia GERD without esophagitis Esophageal reflux Hypothyroidism, unspecified type Adjustment disorder with depressed mood Spondylosis of lumbar region without myelopathy or radiculopathy Lumbosacral spondylosis without myelopathy Morbid obesity due to excess calories (HCC) Pre-op evaluation- Primary Preoperative examination, unspecified BMI 45.0-49.9, adult (HCC) Body Mass Index 45.0-49.9, adult Generalized anxiety disorder with panic attacks Hypothyroidism, unspecified type GERD without esophagitis Esophageal reflux RTINI (obstructive sleep apnea) Obstructive sleep apnea (adult) (pediatric) Essential hypertension, benign Mucopurulent chronic bronchitis (HCC) Mucopurulent chronic bronchitis Rib pain- Primary Chest pain, unspecified Cutaneous candidiasis Candidiasis of skin and nails Adjustment disorder with depressed mood Depression, recurrent (HCC) Major depressive disorder, recurrent episode, unspecified Anxiety Anxiety state, unspecified documented in this encounter [facility] note* Diagnosis Preoperative examination- Primary Preoperative examination, unspecified Stress incontinence Female stress incontinence TRINI (obstructive sleep apnea) Obstructive sleep apnea (adult) (pediatric) Mucopurulent chronic bronchitis (HCC) Mucopurulent chronic bronchitis Tobacco abuse Tobacco use disorder Shortness of breath Essential hypertension, benign Hyperlipidemia LDL goal <130 Other and unspecified hyperlipidemia GERD without esophagitis Esophageal reflux Hypothyroidism, unspecified type Adjustment disorder with depressed mood Spondylosis of lumbar region without myelopathy or radiculopathy Lumbosacral spondylosis without myelopathy Morbid obesity due to excess calories (HCC) Pre-op evaluation- Primary Preoperative examination, unspecified BMI 45.0-49.9, adult (HCC) Body Mass Index 45.0-49.9, adult Generalized anxiety disorder with panic attacks Hypothyroidism, unspecified type GERD without esophagitis Esophageal reflux TRINI (obstructive sleep apnea) Obstructive sleep apnea (adult) (pediatric) Essential hypertension, benign Mucopurulent chronic bronchitis (HCC) Mucopurulent chronic bronchitis Rib pain- Primary Chest pain, unspecified Cutaneous candidiasis Candidiasis of skin and nails Adjustment disorder with depressed mood Depression, recurrent (HCC) Major depressive disorder, recurrent episode, unspecified Generalized anxiety disorder with panic attacks [facility]* Diagnosis Preoperative examination- Primary Preoperative examination, unspecified Stress incontinence Female stress incontinence TRINI (obstructive sleep apnea) Obstructive sleep apnea (adult) (pediatric) Mucopurulent chronic bronchitis (HCC) Mucopurulent chronic bronchitis Tobacco abuse Tobacco use disorder Shortness of breath Essential hypertension, benign Hyperlipidemia LDL goal <130 Other and unspecified hyperlipidemia GERD without esophagitis Esophageal reflux Hypothyroidism, unspecified type Adjustment disorder with depressed mood Spondylosis of lumbar region without myelopathy or radiculopathy Lumbosacral spondylosis without myelopathy Morbid obesity due to excess calories (HCC) Pre-op evaluation- Primary Preoperative examination, unspecified BMI 45.0-49.9, adult (HCC) Body Mass Index 45.0-49.9, adult Generalized anxiety disorder with panic attacks Hypothyroidism, unspecified type GERD without esophagitis Esophageal reflux TRINI (obstructive sleep apnea) Obstructive sleep apnea (adult) (pediatric) Essential hypertension, benign Mucopurulent chronic bronchitis (HCC) Mucopurulent chronic bronchitis Rib pain- Primary Chest pain, unspecified Cutaneous candidiasis Candidiasis of skin and nails Adjustment disorder with depressed mood Depression, recurrent (HCC) Major depressive disorder, recurrent episode, unspecified Depression, recurrent (HCC)- Primary Major depressive disorder, recurrent episode, unspecified Medication management Encounter for long-term (current) use of other medications Anxiety Anxiety state, unspecified Essential hypertension, benign Bilateral leg edema Edema documented in this encounter [facility] note* Diagnosis Preoperative examination- Primary Preoperative examination, unspecified Stress incontinence Female stress incontinence TRINI (obstructive sleep apnea) Obstructive sleep apnea (adult) (pediatric) Mucopurulent chronic bronchitis (HCC) Mucopurulent chronic bronchitis Tobacco abuse Tobacco use disorder Shortness of breath Essential hypertension, benign Hyperlipidemia LDL goal <130 Other and unspecified hyperlipidemia GERD without esophagitis Esophageal reflux Hypothyroidism, unspecified type Adjustment disorder with depressed mood Spondylosis of lumbar region without myelopathy or radiculopathy Lumbosacral spondylosis without myelopathy Morbid obesity due to excess calories (HCC) Pre-op evaluation- Primary Preoperative examination, unspecified BMI 45.0-49.9, adult (HCC) Body Mass Index 45.0-49.9, adult Generalized anxiety disorder with panic attacks Hypothyroidism, unspecified type GERD without esophagitis Esophageal reflux TRINI (obstructive sleep apnea) Obstructive sleep apnea (adult) (pediatric) Essential hypertension, benign Mucopurulent chronic bronchitis (HCC) Mucopurulent chronic bronchitis Rib pain- Primary Chest pain, unspecified Cutaneous candidiasis Candidiasis of skin and nails Adjustment disorder with depressed mood Depression, recurrent (HCC) Major depressive disorder, recurrent episode, unspecified Neck pain- Primary Cervicalgia Acute pain of left shoulder Medication management Encounter for long-term (current) use of other medications Depression, recurrent (HCC) Major depressive disorder, recurrent episode, unspecified documented in this encounter [facility] note* Diagnosis Preoperative examination- Primary Preoperative examination, unspecified Stress incontinence Female stress incontinence TRINI (obstructive sleep apnea) Obstructive sleep apnea (adult) (pediatric) Mucopurulent chronic bronchitis (HCC) Mucopurulent chronic bronchitis Tobacco abuse Tobacco use disorder Shortness of breath Essential hypertension, benign Hyperlipidemia LDL goal <130 Other and unspecified hyperlipidemia GERD without esophagitis Esophageal reflux Hypothyroidism, unspecified type Adjustment disorder with depressed mood Spondylosis of lumbar region without myelopathy or radiculopathy Lumbosacral spondylosis without myelopathy Morbid obesity due to excess calories (HCC) Pre-op evaluation- Primary Preoperative examination, unspecified BMI 45.0-49.9, adult (HCC) Body Mass Index 45.0-49.9, adult Generalized anxiety disorder with panic attacks Hypothyroidism, unspecified type GERD without esophagitis Esophageal reflux TRINI (obstructive sleep apnea) Obstructive sleep apnea (adult) (pediatric) Essential hypertension, benign Mucopurulent chronic bronchitis (HCC) Mucopurulent chronic bronchitis Rib pain- Primary Chest pain, unspecified Cutaneous candidiasis Candidiasis of skin and nails Adjustment disorder with depressed mood Depression, recurrent (HCC) Major depressive disorder, recurrent episode, unspecified Yeast infection, oral documented in this encounter [facility] note* Diagnosis Preoperative examination- Primary Preoperative examination, unspecified Stress incontinence Female stress incontinence TRINI (obstructive sleep apnea) Obstructive sleep apnea (adult) (pediatric) Mucopurulent chronic bronchitis (HCC) Mucopurulent chronic bronchitis Tobacco abuse Tobacco use disorder Shortness of breath Essential hypertension, benign Hyperlipidemia LDL goal <130 Other and unspecified hyperlipidemia GERD without esophagitis Esophageal reflux Hypothyroidism, unspecified type Adjustment disorder with depressed mood Spondylosis of lumbar region without myelopathy or radiculopathy Lumbosacral spondylosis without myelopathy Morbid obesity due to excess calories (HCC) Pre-op evaluation- Primary Preoperative examination, unspecified BMI 45.0-49.9, adult (HCC) Body Mass Index 45.0-49.9, adult Generalized anxiety disorder with panic attacks Hypothyroidism, unspecified type GERD without esophagitis Esophageal reflux TRINI (obstructive sleep apnea) Obstructive sleep apnea (adult) (pediatric) Essential hypertension, benign Mucopurulent chronic bronchitis (HCC) Mucopurulent chronic bronchitis Rib pain- Primary Chest pain, unspecified Cutaneous candidiasis Candidiasis of skin and nails Adjustment disorder with depressed mood Depression, recurrent (HCC) Major depressive disorder, recurrent episode, unspecified Elbow swelling, right documented in this encounter [facility] note* Diagnosis Preoperative examination- Primary Preoperative examination, unspecified Stress incontinence Female stress incontinence TRINI (obstructive sleep apnea) Obstructive sleep apnea (adult) (pediatric) Mucopurulent chronic bronchitis (HCC) Mucopurulent chronic bronchitis Tobacco abuse Tobacco use disorder Shortness of breath Essential hypertension, benign Hyperlipidemia LDL goal <130 Other and unspecified hyperlipidemia GERD without esophagitis Esophageal reflux Hypothyroidism, unspecified type Adjustment disorder with depressed mood Spondylosis of lumbar region without myelopathy or radiculopathy Lumbosacral spondylosis without myelopathy Morbid obesity due to excess calories (HCC) Pre-op evaluation- Primary Preoperative examination, unspecified BMI 45.0-49.9, adult (HCC) Body Mass Index 45.0-49.9, adult Generalized anxiety disorder with panic attacks Hypothyroidism, unspecified type GERD without esophagitis Esophageal reflux TRINI (obstructive sleep apnea) Obstructive sleep apnea (adult) (pediatric) Essential hypertension, benign Mucopurulent chronic bronchitis (HCC) Mucopurulent chronic bronchitis Rib pain- Primary Chest pain, unspecified Cutaneous candidiasis Candidiasis of skin and nails Adjustment disorder with depressed mood Depression, recurrent (HCC) Major depressive disorder, recurrent episode, unspecified Bacterial pneumonia Bacterial pneumonia, unspecified documented in this encounter [facility] note* Diagnosis Preoperative examination- Primary Preoperative examination, unspecified Stress incontinence Female stress incontinence TRINI (obstructive sleep apnea) Obstructive sleep apnea (adult) (pediatric) Mucopurulent chronic bronchitis (HCC) Mucopurulent chronic bronchitis Tobacco abuse Tobacco use disorder Shortness of breath Essential hypertension, benign Hyperlipidemia LDL goal <130 Other and unspecified hyperlipidemia GERD without esophagitis Esophageal reflux Hypothyroidism, unspecified type Adjustment disorder with depressed mood Spondylosis of lumbar region without myelopathy or radiculopathy Lumbosacral spondylosis without myelopathy Morbid obesity due to excess calories (HCC) Pre-op evaluation- Primary Preoperative examination, unspecified BMI 45.0-49.9, adult (HCC) Body Mass Index 45.0-49.9, adult Generalized anxiety disorder with panic attacks Hypothyroidism, unspecified type GERD without esophagitis Esophageal reflux TRINI (obstructive sleep apnea) Obstructive sleep apnea (adult) (pediatric) Essential hypertension, benign Mucopurulent chronic bronchitis (HCC) Mucopurulent chronic bronchitis SOB (shortness of breath) Shortness of breath documented in this encounter [facility] note* Diagnosis Preoperative examination- Primary Preoperative examination, unspecified Stress incontinence Female stress incontinence TRINI (obstructive sleep apnea) Obstructive sleep apnea (adult) (pediatric) Mucopurulent chronic bronchitis (HCC) Mucopurulent chronic bronchitis Tobacco abuse Tobacco use disorder Shortness of breath Essential hypertension, benign Hyperlipidemia LDL goal <130 Other and unspecified hyperlipidemia GERD without esophagitis Esophageal reflux Hypothyroidism, unspecified type Adjustment disorder with depressed mood Spondylosis of lumbar region without myelopathy or radiculopathy Lumbosacral spondylosis without myelopathy Morbid obesity due to excess calories (HCC) Bacterial pneumonia Bacterial pneumonia, unspecified Pre-op evaluation- Primary Preoperative examination, unspecified BMI 45.0-49.9, adult (HCC) Body Mass Index 45.0-49.9, adult Generalized anxiety disorder with panic attacks Hypothyroidism, unspecified type GERD without esophagitis Esophageal reflux TRINI (obstructive sleep apnea) Obstructive sleep apnea (adult) (pediatric) Essential hypertension, benign Mucopurulent chronic bronchitis (HCC) Mucopurulent chronic bronchitis [facility]* Diagnosis Preoperative examination- Primary Preoperative examination, unspecified Stress incontinence Female stress incontinence TRINI (obstructive sleep apnea) Obstructive sleep apnea (adult) (pediatric) Mucopurulent chronic bronchitis (HCC) Mucopurulent chronic bronchitis Tobacco abuse Tobacco use disorder Shortness of breath Essential hypertension, benign Hyperlipidemia LDL goal <130 Other and unspecified hyperlipidemia GERD without esophagitis Esophageal reflux Hypothyroidism, unspecified type Adjustment disorder with depressed mood Spondylosis of lumbar region without myelopathy or radiculopathy Lumbosacral spondylosis without myelopathy Morbid obesity due to excess calories (HCC) Pre-op evaluation- Primary Preoperative examination, unspecified BMI 45.0-49.9, adult ([facility]) Body Mass Index 45.0-49.9, adult Generalized anxiety disorder with panic attacks Hypothyroidism, unspecified type GERD without esophagitis Esophageal reflux TRINI (obstructive sleep apnea) Obstructive sleep apnea (adult) (pediatric) Essential hypertension, benign Mucopurulent chronic bronchitis (HCC) Mucopurulent chronic bronchitis Rib pain- Primary Chest pain, unspecified Cutaneous candidiasis Candidiasis of skin and nails Adjustment disorder with depressed mood Depression, recurrent (HCC) Major depressive disorder, recurrent episode, unspecified Anxiety Anxiety state, unspecified Depression, recurrent (HCC) Major depressive disorder, recurrent episode, unspecified [facility] Diagnosis Preoperative examination- Primary Preoperative examination, unspecified Stress incontinence Female stress incontinence TRINI (obstructive sleep apnea) Obstructive sleep apnea (adult) (pediatric) Mucopurulent chronic bronchitis (HCC) Mucopurulent chronic bronchitis Tobacco abuse Tobacco use disorder Shortness of breath Essential hypertension, benign Hyperlipidemia LDL goal <130 Other and unspecified hyperlipidemia GERD without esophagitis Esophageal reflux Hypothyroidism, unspecified type Adjustment disorder with depressed mood Spondylosis of lumbar region without myelopathy or radiculopathy Lumbosacral spondylosis without myelopathy Morbid obesity due to excess calories (HCC) Wheeze Wheezing Pre-op evaluation- Primary Preoperative examination, unspecified BMI 45.0-49.9, adult ([facility]) Body Mass Index 45.0-49.9, adult Generalized anxiety disorder with panic attacks Hypothyroidism, unspecified type GERD without esophagitis Esophageal reflux TRINI (obstructive sleep apnea) Obstructive sleep apnea (adult) (pediatric) Essential hypertension, benign Mucopurulent chronic bronchitis (HCC) Mucopurulent chronic bronchitis documented in this encounter [facility] note* Diagnosis Preoperative examination- Primary Preoperative examination, unspecified Stress incontinence Female stress incontinence TRINI (obstructive sleep apnea) Obstructive sleep apnea (adult) (pediatric) Mucopurulent chronic bronchitis (HCC) Mucopurulent chronic bronchitis Tobacco abuse Tobacco use disorder Shortness of breath Essential hypertension, benign Hyperlipidemia LDL goal <130 Other and unspecified hyperlipidemia GERD without esophagitis Esophageal reflux Hypothyroidism, unspecified type Adjustment disorder with depressed mood Spondylosis of lumbar region without myelopathy or radiculopathy Lumbosacral spondylosis without myelopathy Morbid obesity due to excess calories (HCC) Pre-op evaluation- Primary Preoperative examination, unspecified BMI 45.0-49.9, adult ([facility]) Body Mass Index 45.0-49.9, adult Generalized anxiety disorder with panic attacks Hypothyroidism, unspecified type GERD without esophagitis Esophageal reflux TRINI (obstructive sleep apnea) Obstructive sleep apnea (adult) (pediatric) Essential hypertension, benign Mucopurulent chronic bronchitis (HCC) Mucopurulent chronic bronchitis Rib pain- Primary Chest pain, unspecified Cutaneous candidiasis Candidiasis of skin and nails Adjustment disorder with depressed mood Depression, recurrent (HCC) Major depressive disorder, recurrent episode, unspecified Mucopurulent chronic bronchitis (HCC) Mucopurulent chronic bronchitis documented in this encounter [facility] note* Diagnosis Preoperative examination- Primary Preoperative examination, unspecified Stress incontinence Female stress incontinence TRINI (obstructive sleep apnea) Obstructive sleep apnea (adult) (pediatric) Mucopurulent chronic bronchitis (HCC) Mucopurulent chronic bronchitis Tobacco abuse Tobacco use disorder Shortness of breath Essential hypertension, benign Hyperlipidemia LDL goal <130 Other and unspecified hyperlipidemia GERD without esophagitis Esophageal reflux Hypothyroidism, unspecified type Adjustment disorder with depressed mood Spondylosis of lumbar region without myelopathy or radiculopathy Lumbosacral spondylosis without myelopathy Morbid obesity due to excess calories (HCC) Pre-op evaluation- Primary Preoperative examination, unspecified BMI 45.0-49.9, adult (HCC) Body Mass Index 45.0-49.9, adult Generalized anxiety disorder with panic attacks Hypothyroidism, unspecified type GERD without esophagitis Esophageal reflux TRINI (obstructive sleep apnea) Obstructive sleep apnea (adult) (pediatric) Essential hypertension, benign Mucopurulent chronic bronchitis (HCC) Mucopurulent chronic bronchitis Rib pain- Primary Chest pain, unspecified Cutaneous candidiasis Candidiasis of skin and nails Adjustment disorder with depressed mood Depression, recurrent (HCC) Major depressive disorder, recurrent episode, unspecified Anxiety Anxiety state, unspecified Depression, recurrent (HCC) Major depressive disorder, recurrent episode, unspecified [facility] Diagnosis Preoperative examination- Primary Preoperative examination, unspecified Stress incontinence Female stress incontinence TRINI (obstructive sleep apnea) Obstructive sleep apnea (adult) (pediatric) Mucopurulent chronic bronchitis (HCC) Mucopurulent chronic bronchitis Tobacco abuse Tobacco use disorder Shortness of breath Essential hypertension, benign Hyperlipidemia LDL goal <130 Other and unspecified hyperlipidemia GERD without esophagitis Esophageal reflux Hypothyroidism, unspecified type Adjustment disorder with depressed mood Spondylosis of lumbar region without myelopathy or radiculopathy Lumbosacral spondylosis without myelopathy Morbid obesity due to excess calories (HCC) Pre-op evaluation- Primary Preoperative examination, unspecified BMI 45.0-49.9, adult (HCC) Body Mass Index 45.0-49.9, adult Generalized anxiety disorder with panic attacks Hypothyroidism, unspecified type GERD without esophagitis Esophageal reflux TRINI (obstructive sleep apnea) Obstructive sleep apnea (adult) (pediatric) Essential hypertension, benign Mucopurulent chronic bronchitis (HCC) Mucopurulent chronic bronchitis Rib pain- Primary Chest pain, unspecified Cutaneous candidiasis Candidiasis of skin and nails Adjustment disorder with depressed mood Depression, recurrent (HCC) Major depressive disorder, recurrent episode, unspecified Anxiety Anxiety state, unspecified documented in this encounter [facility] note* Diagnosis Preoperative examination- Primary Preoperative examination, unspecified Stress incontinence Female stress incontinence TRINI (obstructive sleep apnea) Obstructive sleep apnea (adult) (pediatric) Mucopurulent chronic bronchitis (HCC) Mucopurulent chronic bronchitis Tobacco abuse Tobacco use disorder Shortness of breath Essential hypertension, benign Hyperlipidemia LDL goal <130 Other and unspecified hyperlipidemia GERD without esophagitis Esophageal reflux Hypothyroidism, unspecified type Adjustment disorder with depressed mood Spondylosis of lumbar region without myelopathy or radiculopathy Lumbosacral spondylosis without myelopathy Morbid obesity due to excess calories (HCC) Pre-op evaluation- Primary Preoperative examination, unspecified BMI 45.0-49.9, adult (HCC) Body Mass Index 45.0-49.9, adult Generalized anxiety disorder with panic attacks Hypothyroidism, unspecified type GERD without esophagitis Esophageal reflux TRINI (obstructive sleep apnea) Obstructive sleep apnea (adult) (pediatric) Essential hypertension, benign Mucopurulent chronic bronchitis (HCC) Mucopurulent chronic bronchitis Rib pain- Primary Chest pain, unspecified Cutaneous candidiasis Candidiasis of skin and nails Adjustment disorder with depressed mood Depression, recurrent (HCC) Major depressive disorder, recurrent episode, unspecified Rash- Primary Rash and other nonspecific skin eruption Skin infection Unspecified local infection of skin and subcutaneous tissue documented in this encounter [facility] note* Diagnosis Preoperative examination- Primary Preoperative examination, unspecified Stress incontinence Female stress incontinence TRINI (obstructive sleep apnea) Obstructive sleep apnea (adult) (pediatric) Mucopurulent chronic bronchitis (HCC) Mucopurulent chronic bronchitis Tobacco abuse Tobacco use disorder Shortness of breath Essential hypertension, benign Hyperlipidemia LDL goal <130 Other and unspecified hyperlipidemia GERD without esophagitis Esophageal reflux Hypothyroidism, unspecified type Adjustment disorder with depressed mood Spondylosis of lumbar region without myelopathy or radiculopathy Lumbosacral spondylosis without myelopathy Morbid obesity due to excess calories ([facility]) Pre-op evaluation- Primary Preoperative examination, unspecified BMI 45.0-49.9, adult ([facility]) Body Mass Index 45.0-49.9, adult Generalized anxiety disorder with panic attacks Hypothyroidism, unspecified type GERD without esophagitis Esophageal reflux TRINI (obstructive sleep apnea) Obstructive sleep apnea (adult) (pediatric) Essential hypertension, benign Mucopurulent chronic bronchitis (HCC) Mucopurulent chronic bronchitis Rib pain- Primary Chest pain, unspecified Cutaneous candidiasis Candidiasis of skin and nails Adjustment disorder with depressed mood Depression, recurrent (HCC) Major depressive disorder, recurrent episode, unspecified Skin lesion- Primary Unspecified disorder of skin and subcutaneous tissue Class 3 severe obesity with body mass index (BMI) of 45.0 to 49.9 in adult, unspecified obesity type, unspecified whether serious comorbidity present ([facility]) Thrombocytopenia, unspecified (HCC) Thrombocytopenia, unspecified Mucopurulent chronic bronchitis (HCC) Mucopurulent chronic bronchitis Medicare annual wellness visit, subsequent Routine general medical examination at a health care facility [facility] Diagnosis Preoperative examination- Primary Preoperative examination, unspecified Stress incontinence Female stress incontinence TRINI (obstructive sleep apnea) Obstructive sleep apnea (adult) (pediatric) Mucopurulent chronic bronchitis (HCC) Mucopurulent chronic bronchitis Tobacco abuse Tobacco use disorder Shortness of breath Essential hypertension, benign Hyperlipidemia LDL goal <130 Other and unspecified hyperlipidemia GERD without esophagitis Esophageal reflux Hypothyroidism, unspecified type Adjustment disorder with depressed mood Spondylosis of lumbar region without myelopathy or radiculopathy Lumbosacral spondylosis without myelopathy Morbid obesity due to excess calories (HCC) Pre-op evaluation- Primary Preoperative examination, unspecified BMI 45.0-49.9, adult (HCC) Body Mass Index 45.0-49.9, adult Generalized anxiety disorder with panic attacks Hypothyroidism, unspecified type GERD without esophagitis Esophageal reflux TRINI (obstructive sleep apnea) Obstructive sleep apnea (adult) (pediatric) Essential hypertension, benign Mucopurulent chronic bronchitis (HCC) Mucopurulent chronic bronchitis Rib pain- Primary Chest pain, unspecified Cutaneous candidiasis Candidiasis of skin and nails Adjustment disorder with depressed mood Depression, recurrent (HCC) Major depressive disorder, recurrent episode, unspecified Multiple abrasions- Primary Abrasion or friction burn of other, multiple, and unspecified sites, without mention of infection [facility] Diagnosis Preoperative examination- Primary Preoperative examination, unspecified Stress incontinence Female stress incontinence TRINI (obstructive sleep apnea) Obstructive sleep apnea (adult) (pediatric) Mucopurulent chronic bronchitis (HCC) Mucopurulent chronic bronchitis Tobacco abuse Tobacco use disorder Shortness of breath Essential hypertension, benign Hyperlipidemia LDL goal <130 Other and unspecified hyperlipidemia GERD without esophagitis Esophageal reflux Hypothyroidism, unspecified type Adjustment disorder with depressed mood Spondylosis of lumbar region without myelopathy or radiculopathy Lumbosacral spondylosis without myelopathy Morbid obesity due to excess calories (HCC) Pre-op evaluation- Primary Preoperative examination, unspecified BMI 45.0-49.9, adult ([facility]) Body Mass Index 45.0-49.9, adult Generalized anxiety disorder with panic attacks Hypothyroidism, unspecified type GERD without esophagitis Esophageal reflux TRINI (obstructive sleep apnea) Obstructive sleep apnea (adult) (pediatric) Essential hypertension, benign Mucopurulent chronic bronchitis (HCC) Mucopurulent chronic bronchitis Rib pain- Primary Chest pain, unspecified Cutaneous candidiasis Candidiasis of skin and nails Adjustment disorder with depressed mood Depression, recurrent (HCC) Major depressive disorder, recurrent episode, unspecified Allergic contact dermatitis due to other agents- Primary Cellulitis of skin Cellulitis and abscess of unspecified site Urticaria Urticaria, unspecified Wheezing [facility]* Diagnosis Preoperative examination- Primary Preoperative examination, unspecified Stress incontinence Female stress incontinence TRINI (obstructive sleep apnea) Obstructive sleep apnea (adult) (pediatric) Mucopurulent chronic bronchitis (HCC) Mucopurulent chronic bronchitis Tobacco abuse Tobacco use disorder Shortness of breath Essential hypertension, benign Hyperlipidemia LDL goal <130 Other and unspecified hyperlipidemia GERD without esophagitis Esophageal reflux Hypothyroidism, unspecified type Adjustment disorder with depressed mood Spondylosis of lumbar region without myelopathy or radiculopathy Lumbosacral spondylosis without myelopathy Morbid obesity due to excess calories (HCC) Pre-op evaluation- Primary Preoperative examination, unspecified BMI 45.0-49.9, adult (HCC) Body Mass Index 45.0-49.9, adult Generalized anxiety disorder with panic attacks Hypothyroidism, unspecified type GERD without esophagitis Esophageal reflux TRINI (obstructive sleep apnea) Obstructive sleep apnea (adult) (pediatric) Essential hypertension, benign Mucopurulent chronic bronchitis (HCC) Mucopurulent chronic bronchitis Rib pain- Primary Chest pain, unspecified Cutaneous candidiasis Candidiasis of skin and nails Adjustment disorder with depressed mood Depression, recurrent (HCC) Major depressive disorder, recurrent episode, unspecified Bronchitis- Primary Bronchitis, not specified as acute or chronic [facility] Diagnosis Preoperative examination- Primary Preoperative examination, unspecified Stress incontinence Female stress incontinence TRINI (obstructive sleep apnea) Obstructive sleep apnea (adult) (pediatric) Mucopurulent chronic bronchitis (HCC) Mucopurulent chronic bronchitis Tobacco abuse Tobacco use disorder Shortness of breath Essential hypertension, benign Hyperlipidemia LDL goal <130 Other and unspecified hyperlipidemia GERD without esophagitis Esophageal reflux Hypothyroidism, unspecified type Adjustment disorder with depressed mood Spondylosis of lumbar region without myelopathy or radiculopathy Lumbosacral spondylosis without myelopathy Morbid obesity due to excess calories (HCC) Pre-op evaluation- Primary Preoperative examination, unspecified BMI 45.0-49.9, adult (HCC) Body Mass Index 45.0-49.9, adult Generalized anxiety disorder with panic attacks Hypothyroidism, unspecified type GERD without esophagitis Esophageal reflux TRINI (obstructive sleep apnea) Obstructive sleep apnea (adult) (pediatric) Essential hypertension, benign Mucopurulent chronic bronchitis (HCC) Mucopurulent chronic bronchitis Rib pain- Primary Chest pain, unspecified Cutaneous candidiasis Candidiasis of skin and nails Adjustment disorder with depressed mood Depression, recurrent (HCC) Major depressive disorder, recurrent episode, unspecified Bilateral leg edema Edema [facility]* Diagnosis Preoperative examination- Primary Preoperative examination, unspecified Stress incontinence Female stress incontinence TRINI (obstructive sleep apnea) Obstructive sleep apnea (adult) (pediatric) Mucopurulent chronic bronchitis (HCC) Mucopurulent chronic bronchitis Tobacco abuse Tobacco use disorder Shortness of breath Essential hypertension, benign Hyperlipidemia LDL goal <130 Other and unspecified hyperlipidemia GERD without esophagitis Esophageal reflux Hypothyroidism, unspecified type Adjustment disorder with depressed mood Spondylosis of lumbar region without myelopathy or radiculopathy Lumbosacral spondylosis without myelopathy Morbid obesity due to excess calories (HCC) Pre-op evaluation- Primary Preoperative examination, unspecified BMI 45.0-49.9, adult (HCC) Body Mass Index 45.0-49.9, adult Generalized anxiety disorder with panic attacks Hypothyroidism, unspecified type GERD without esophagitis Esophageal reflux TRNII (obstructive sleep apnea) Obstructive sleep apnea (adult) (pediatric) Essential hypertension, benign Mucopurulent chronic bronchitis (HCC) Mucopurulent chronic bronchitis Rib pain- Primary Chest pain, unspecified Cutaneous candidiasis Candidiasis of skin and nails Adjustment disorder with depressed mood Depression, recurrent (HCC) Major depressive disorder, recurrent episode, unspecified Allergic contact dermatitis due to other agents [facility] Diagnosis Preoperative examination- Primary Preoperative examination, unspecified Stress incontinence Female stress incontinence RTINI (obstructive sleep apnea) Obstructive sleep apnea (adult) (pediatric) Mucopurulent chronic bronchitis (HCC) Mucopurulent chronic bronchitis Tobacco abuse Tobacco use disorder Shortness of breath Essential hypertension, benign Hyperlipidemia LDL goal <130 Other and unspecified hyperlipidemia GERD without esophagitis Esophageal reflux Hypothyroidism, unspecified type Adjustment disorder with depressed mood Spondylosis of lumbar region without myelopathy or radiculopathy Lumbosacral spondylosis without myelopathy Morbid obesity due to excess calories (HCC) Pre-op evaluation- Primary Preoperative examination, unspecified BMI 45.0-49.9, adult (HCC) Body Mass Index 45.0-49.9, adult Generalized anxiety disorder with panic attacks Hypothyroidism, unspecified type GERD without esophagitis Esophageal reflux TRINI (obstructive sleep apnea) Obstructive sleep apnea (adult) (pediatric) Essential hypertension, benign Mucopurulent chronic bronchitis (HCC) Mucopurulent chronic bronchitis Rib pain- Primary Chest pain, unspecified Cutaneous candidiasis Candidiasis of skin and nails Adjustment disorder with depressed mood Depression, recurrent (HCC) Major depressive disorder, recurrent episode, unspecified Anxiety Anxiety state, unspecified [facility] Diagnosis Preoperative examination- Primary Preoperative examination, unspecified Stress incontinence Female stress incontinence TRINI (obstructive sleep apnea) Obstructive sleep apnea (adult) (pediatric) Mucopurulent chronic bronchitis (HCC) Mucopurulent chronic bronchitis Tobacco abuse Tobacco use disorder Shortness of breath Essential hypertension, benign Hyperlipidemia LDL goal <130 Other and unspecified hyperlipidemia GERD without esophagitis Esophageal reflux Hypothyroidism, unspecified type Adjustment disorder with depressed mood Spondylosis of lumbar region without myelopathy or radiculopathy Lumbosacral spondylosis without myelopathy Morbid obesity due to excess calories (HCC) Pre-op evaluation- Primary Preoperative examination, unspecified BMI 45.0-49.9, adult (HCC) Body Mass Index 45.0-49.9, adult Generalized anxiety disorder with panic attacks Hypothyroidism, unspecified type GERD without esophagitis Esophageal reflux TRINI (obstructive sleep apnea) Obstructive sleep apnea (adult) (pediatric) Essential hypertension, benign Mucopurulent chronic bronchitis (HCC) Mucopurulent chronic bronchitis Rib pain- Primary Chest pain, unspecified Cutaneous candidiasis Candidiasis of skin and nails Adjustment disorder with depressed mood Depression, recurrent (HCC) Major depressive disorder, recurrent episode, unspecified Depression, recurrent (HCC) Major depressive disorder, recurrent episode, unspecified [facility]* Diagnosis Preoperative examination- Primary Preoperative examination, unspecified Stress incontinence Female stress incontinence TRINI (obstructive sleep apnea) Obstructive sleep apnea (adult) (pediatric) Mucopurulent chronic bronchitis (HCC) Mucopurulent chronic bronchitis Tobacco abuse Tobacco use disorder Shortness of breath Essential hypertension, benign Hyperlipidemia LDL goal <130 Other and unspecified hyperlipidemia GERD without esophagitis Esophageal reflux Hypothyroidism, unspecified type Adjustment disorder with depressed mood Spondylosis of lumbar region without myelopathy or radiculopathy Lumbosacral spondylosis without myelopathy Morbid obesity due to excess calories (HCC) Pre-op evaluation- Primary Preoperative examination, unspecified BMI 45.0-49.9, adult (HCC) Body Mass Index 45.0-49.9, adult Generalized anxiety disorder with panic attacks Hypothyroidism, unspecified type GERD without esophagitis Esophageal reflux TRINI (obstructive sleep apnea) Obstructive sleep apnea (adult) (pediatric) Essential hypertension, benign Mucopurulent chronic bronchitis (HCC) Mucopurulent chronic bronchitis Rib pain- Primary Chest pain, unspecified Cutaneous candidiasis Candidiasis of skin and nails Adjustment disorder with depressed mood Depression, recurrent (HCC) Major depressive disorder, recurrent episode, unspecified Vitamin D deficiency Unspecified vitamin D deficiency documented in this encounter [facility] note* Diagnosis Preoperative examination- Primary Preoperative examination, unspecified Stress incontinence Female stress incontinence TRINI (obstructive sleep apnea) Obstructive sleep apnea (adult) (pediatric) Mucopurulent chronic bronchitis (HCC) Mucopurulent chronic bronchitis Tobacco abuse Tobacco use disorder Shortness of breath Essential hypertension, benign Hyperlipidemia LDL goal <130 Other and unspecified hyperlipidemia GERD without esophagitis Esophageal reflux Hypothyroidism, unspecified type Adjustment disorder with depressed mood Spondylosis of lumbar region without myelopathy or radiculopathy Lumbosacral spondylosis without myelopathy Morbid obesity due to excess calories (HCC) Pre-op evaluation- Primary Preoperative examination, unspecified BMI 45.0-49.9, adult ([facility]) Body Mass Index 45.0-49.9, adult Generalized anxiety disorder with panic attacks Hypothyroidism, unspecified type GERD without esophagitis Esophageal reflux TRINI (obstructive sleep apnea) Obstructive sleep apnea (adult) (pediatric) Essential hypertension, benign Mucopurulent chronic bronchitis (HCC) Mucopurulent chronic bronchitis Rib pain- Primary Chest pain, unspecified Cutaneous candidiasis Candidiasis of skin and nails Adjustment disorder with depressed mood Depression, recurrent (HCC) Major depressive disorder, recurrent episode, unspecified GERD without esophagitis Esophageal reflux Mucopurulent chronic bronchitis (HCC) Mucopurulent chronic bronchitis documented in this encounter [facility] note* Diagnosis Preoperative examination- Primary Preoperative examination, unspecified Stress incontinence Female stress incontinence TRINI (obstructive sleep apnea) Obstructive sleep apnea (adult) (pediatric) Mucopurulent chronic bronchitis (HCC) Mucopurulent chronic bronchitis Tobacco abuse Tobacco use disorder Shortness of breath Essential hypertension, benign Hyperlipidemia LDL goal <130 Other and unspecified hyperlipidemia GERD without esophagitis Esophageal reflux Hypothyroidism, unspecified type Adjustment disorder with depressed mood Spondylosis of lumbar region without myelopathy or radiculopathy Lumbosacral spondylosis without myelopathy Morbid obesity due to excess calories (HCC) Pre-op evaluation- Primary Preoperative examination, unspecified BMI 45.0-49.9, adult (HCC) Body Mass Index 45.0-49.9, adult Generalized anxiety disorder with panic attacks Hypothyroidism, unspecified type GERD without esophagitis Esophageal reflux TRINI (obstructive sleep apnea) Obstructive sleep apnea (adult) (pediatric) Essential hypertension, benign Mucopurulent chronic bronchitis (HCC) Mucopurulent chronic bronchitis Rib pain- Primary Chest pain, unspecified Cutaneous candidiasis Candidiasis of skin and nails Adjustment disorder with depressed mood Depression, recurrent (HCC) Major depressive disorder, recurrent episode, unspecified GERD without esophagitis Esophageal reflux Mucopurulent chronic bronchitis (HCC) Mucopurulent chronic bronchitis Anxiety Anxiety state, unspecified [facility]* Diagnosis Preoperative examination- Primary Preoperative examination, unspecified Stress incontinence Female stress incontinence TRINI (obstructive sleep apnea) Obstructive sleep apnea (adult) (pediatric) Mucopurulent chronic bronchitis (HCC) Mucopurulent chronic bronchitis Tobacco abuse Tobacco use disorder Shortness of breath Essential hypertension, benign Hyperlipidemia LDL goal <130 Other and unspecified hyperlipidemia GERD without esophagitis Esophageal reflux Hypothyroidism, unspecified type Adjustment disorder with depressed mood Spondylosis of lumbar region without myelopathy or radiculopathy Lumbosacral spondylosis without myelopathy Morbid obesity due to excess calories (HCC) Pre-op evaluation- Primary Preoperative examination, unspecified BMI 45.0-49.9, adult (HCC) Body Mass Index 45.0-49.9, adult Generalized anxiety disorder with panic attacks Hypothyroidism, unspecified type GERD without esophagitis Esophageal reflux TRINI (obstructive sleep apnea) Obstructive sleep apnea (adult) (pediatric) Essential hypertension, benign Mucopurulent chronic bronchitis (HCC) Mucopurulent chronic bronchitis Rib pain- Primary Chest pain, unspecified Cutaneous candidiasis Candidiasis of skin and nails Adjustment disorder with depressed mood Depression, recurrent (HCC) Major depressive disorder, recurrent episode, unspecified Bronchitis- Primary Bronchitis, not specified as acute or chronic documented in this encounter [facility] note* Diagnosis Preoperative examination- Primary Preoperative examination, unspecified Stress incontinence Female stress incontinence TRINI (obstructive sleep apnea) Obstructive sleep apnea (adult) (pediatric) Mucopurulent chronic bronchitis (HCC) Mucopurulent chronic bronchitis Tobacco abuse Tobacco use disorder Shortness of breath Essential hypertension, benign Hyperlipidemia LDL goal <130 Other and unspecified hyperlipidemia GERD without esophagitis Esophageal reflux Hypothyroidism, unspecified type Adjustment disorder with depressed mood Spondylosis of lumbar region without myelopathy or radiculopathy Lumbosacral spondylosis without myelopathy Morbid obesity due to excess calories (HCC) Pre-op evaluation- Primary Preoperative examination, unspecified BMI 45.0-49.9, adult (HCC) Body Mass Index 45.0-49.9, adult Generalized anxiety disorder with panic attacks Hypothyroidism, unspecified type GERD without esophagitis Esophageal reflux TRINI (obstructive sleep apnea) Obstructive sleep apnea (adult) (pediatric) Essential hypertension, benign Mucopurulent chronic bronchitis (HCC) Mucopurulent chronic bronchitis Rib pain- Primary Chest pain, unspecified Cutaneous candidiasis Candidiasis of skin and nails Adjustment disorder with depressed mood Depression, recurrent (HCC) Major depressive disorder, recurrent episode, unspecified Essential hypertension, benign- Primary GERD without esophagitis Esophageal reflux Anxiety Anxiety state, unspecified Depression, recurrent (HCC) Major depressive disorder, recurrent episode, unspecified TRINI (obstructive sleep apnea) Obstructive sleep apnea (adult) (pediatric) Hyperlipidemia LDL goal <130 Other and unspecified hyperlipidemia Hypothyroidism, unspecified type Mucopurulent chronic bronchitis (HCC) Mucopurulent chronic bronchitis Bacterial pneumonia Bacterial pneumonia, unspecified Prediabetes Other abnormal glucose documented in this encounter [facility] note* Diagnosis Preoperative examination- Primary Preoperative examination, unspecified Stress incontinence Female stress incontinence TRINI (obstructive sleep apnea) Obstructive sleep apnea (adult) (pediatric) Mucopurulent chronic bronchitis (HCC) Mucopurulent chronic bronchitis Tobacco abuse Tobacco use disorder Shortness of breath Essential hypertension, benign Hyperlipidemia LDL goal <130 Other and unspecified hyperlipidemia GERD without esophagitis Esophageal reflux Hypothyroidism, unspecified type Adjustment disorder with depressed mood Spondylosis of lumbar region without myelopathy or radiculopathy Lumbosacral spondylosis without myelopathy Morbid obesity due to excess calories (HCC) Pre-op evaluation- Primary Preoperative examination, unspecified BMI 45.0-49.9, adult (HCC) Body Mass Index 45.0-49.9, adult Generalized anxiety disorder with panic attacks Hypothyroidism, unspecified type GERD without esophagitis Esophageal reflux TRINI (obstructive sleep apnea) Obstructive sleep apnea (adult) (pediatric) Essential hypertension, benign Mucopurulent chronic bronchitis (HCC) Mucopurulent chronic bronchitis Rib pain- Primary Chest pain, unspecified Cutaneous candidiasis Candidiasis of skin and nails Adjustment disorder with depressed mood Depression, recurrent (HCC) Major depressive disorder, recurrent episode, unspecified Bronchitis Bronchitis, not specified as acute or chronic documented in this encounter [facility] note* Diagnosis Preoperative examination- Primary Preoperative examination, unspecified Stress incontinence Female stress incontinence TRINI (obstructive sleep apnea) Obstructive sleep apnea (adult) (pediatric) Mucopurulent chronic bronchitis (HCC) Mucopurulent chronic bronchitis Tobacco abuse Tobacco use disorder Shortness of breath Essential hypertension, benign Hyperlipidemia LDL goal <130 Other and unspecified hyperlipidemia GERD without esophagitis Esophageal reflux Hypothyroidism, unspecified type Adjustment disorder with depressed mood Spondylosis of lumbar region without myelopathy or radiculopathy Lumbosacral spondylosis without myelopathy Morbid obesity due to excess calories (HCC) Pre-op evaluation- Primary Preoperative examination, unspecified BMI 45.0-49.9, adult (HCC) Body Mass Index 45.0-49.9, adult Generalized anxiety disorder with panic attacks Hypothyroidism, unspecified type GERD without esophagitis Esophageal reflux TRINI (obstructive sleep apnea) Obstructive sleep apnea (adult) (pediatric) Essential hypertension, benign Mucopurulent chronic bronchitis (HCC) Mucopurulent chronic bronchitis Rib pain- Primary Chest pain, unspecified Cutaneous candidiasis Candidiasis of skin and nails Adjustment disorder with depressed mood Depression, recurrent (HCC) Major depressive disorder, recurrent episode, unspecified Hernia- Primary Hernia of unspecified site of abdominal cavity without mention of obstruction or gangrene [facility] Diagnosis Preoperative examination- Primary Preoperative examination, unspecified Stress incontinence Female stress incontinence TRINI (obstructive sleep apnea) Obstructive sleep apnea (adult) (pediatric) Mucopurulent chronic bronchitis (HCC) Mucopurulent chronic bronchitis Tobacco abuse Tobacco use disorder Shortness of breath Essential hypertension, benign Hyperlipidemia LDL goal <130 Other and unspecified hyperlipidemia GERD without esophagitis Esophageal reflux Hypothyroidism, unspecified type Adjustment disorder with depressed mood Spondylosis of lumbar region without myelopathy or radiculopathy Lumbosacral spondylosis without myelopathy Morbid obesity due to excess calories (HCC) Pre-op evaluation- Primary Preoperative examination, unspecified BMI 45.0-49.9, adult (HCC) Body Mass Index 45.0-49.9, adult Generalized anxiety disorder with panic attacks Hypothyroidism, unspecified type GERD without esophagitis Esophageal reflux TRINI (obstructive sleep apnea) Obstructive sleep apnea (adult) (pediatric) Essential hypertension, benign Mucopurulent chronic bronchitis (HCC) Mucopurulent chronic bronchitis Rib pain- Primary Chest pain, unspecified Cutaneous candidiasis Candidiasis of skin and nails Adjustment disorder with depressed mood Depression, recurrent (HCC) Major depressive disorder, recurrent episode, unspecified Leukocytosis, unspecified type- Primary documented in this encounter [facility] note* Diagnosis Preoperative examination- Primary Preoperative examination, unspecified Stress incontinence Female stress incontinence TRINI (obstructive sleep apnea) Obstructive sleep apnea (adult) (pediatric) Mucopurulent chronic bronchitis (HCC) Mucopurulent chronic bronchitis Tobacco abuse Tobacco use disorder Shortness of breath Essential hypertension, benign Hyperlipidemia LDL goal <130 Other and unspecified hyperlipidemia GERD without esophagitis Esophageal reflux Hypothyroidism, unspecified type Adjustment disorder with depressed mood Spondylosis of lumbar region without myelopathy or radiculopathy Lumbosacral spondylosis without myelopathy Morbid obesity due to excess calories (HCC) Pre-op evaluation- Primary Preoperative examination, unspecified BMI 45.0-49.9, adult (HCC) Body Mass Index 45.0-49.9, adult Generalized anxiety disorder with panic attacks Hypothyroidism, unspecified type GERD without esophagitis Esophageal reflux TRINI (obstructive sleep apnea) Obstructive sleep apnea (adult) (pediatric) Essential hypertension, benign Mucopurulent chronic bronchitis (HCC) Mucopurulent chronic bronchitis Rib pain- Primary Chest pain, unspecified Cutaneous candidiasis Candidiasis of skin and nails Adjustment disorder with depressed mood Depression, recurrent (HCC) Major depressive disorder, recurrent episode, unspecified Bacterial pneumonia Bacterial pneumonia, unspecified documented in this encounter [facility] note* Diagnosis Preoperative examination- Primary Preoperative examination, unspecified Stress incontinence Female stress incontinence TRINI (obstructive sleep apnea) Obstructive sleep apnea (adult) (pediatric) Mucopurulent chronic bronchitis (HCC) Mucopurulent chronic bronchitis Tobacco abuse Tobacco use disorder Shortness of breath Essential hypertension, benign Hyperlipidemia LDL goal <130 Other and unspecified hyperlipidemia GERD without esophagitis Esophageal reflux Hypothyroidism, unspecified type Adjustment disorder with depressed mood Spondylosis of lumbar region without myelopathy or radiculopathy Lumbosacral spondylosis without myelopathy Morbid obesity due to excess calories (HCC) Pre-op evaluation- Primary Preoperative examination, unspecified BMI 45.0-49.9, adult (HCC) Body Mass Index 45.0-49.9, adult Generalized anxiety disorder with panic attacks Hypothyroidism, unspecified type GERD without esophagitis Esophageal reflux TRINI (obstructive sleep apnea) Obstructive sleep apnea (adult) (pediatric) Essential hypertension, benign Mucopurulent chronic bronchitis (HCC) Mucopurulent chronic bronchitis Rib pain- Primary Chest pain, unspecified Cutaneous candidiasis Candidiasis of skin and nails Adjustment disorder with depressed mood Depression, recurrent (HCC) Major depressive disorder, recurrent episode, unspecified Leukocytosis, unspecified type- Primary documented in this encounter [facility] note* Diagnosis Preoperative examination- Primary Preoperative examination, unspecified Stress incontinence Female stress incontinence TRINI (obstructive sleep apnea) Obstructive sleep apnea (adult) (pediatric) Mucopurulent chronic bronchitis (HCC) Mucopurulent chronic bronchitis Tobacco abuse Tobacco use disorder Shortness of breath Essential hypertension, benign Hyperlipidemia LDL goal <130 Other and unspecified hyperlipidemia GERD without esophagitis Esophageal reflux Hypothyroidism, unspecified type Adjustment disorder with depressed mood Spondylosis of lumbar region without myelopathy or radiculopathy Lumbosacral spondylosis without myelopathy Morbid obesity due to excess calories (HCC) Pre-op evaluation- Primary Preoperative examination, unspecified BMI 45.0-49.9, adult (HCC) Body Mass Index 45.0-49.9, adult Generalized anxiety disorder with panic attacks Hypothyroidism, unspecified type GERD without esophagitis Esophageal reflux TRINI (obstructive sleep apnea) Obstructive sleep apnea (adult) (pediatric) Essential hypertension, benign Mucopurulent chronic bronchitis (HCC) Mucopurulent chronic bronchitis Rib pain- Primary Chest pain, unspecified Cutaneous candidiasis Candidiasis of skin and nails Adjustment disorder with depressed mood Depression, recurrent Major depressive disorder, recurrent episode, unspecified Leukocytosis, unspecified type- Primary Subacute cough Cough Encounter for immunization Need for other specified prophylactic vaccination against single bacterial disease Mucopurulent chronic bronchitis (HCC) Mucopurulent chronic bronchitis documented in this encounter [facility] note* Diagnosis Preoperative examination- Primary Preoperative examination, unspecified Stress incontinence Female stress incontinence TRINI (obstructive sleep apnea) Obstructive sleep apnea (adult) (pediatric) Mucopurulent chronic bronchitis (HCC) Mucopurulent chronic bronchitis Tobacco abuse Tobacco use disorder Shortness of breath Essential hypertension, benign Hyperlipidemia LDL goal <130 Other and unspecified hyperlipidemia GERD without esophagitis Esophageal reflux Hypothyroidism, unspecified type Adjustment disorder with depressed mood Spondylosis of lumbar region without myelopathy or radiculopathy Lumbosacral spondylosis without myelopathy Morbid obesity due to excess calories (HCC) Pre-op evaluation- Primary Preoperative examination, unspecified BMI 45.0-49.9, adult (HCC) Body Mass Index 45.0-49.9, adult Generalized anxiety disorder with panic attacks Hypothyroidism, unspecified type GERD without esophagitis Esophageal reflux TRINI (obstructive sleep apnea) Obstructive sleep apnea (adult) (pediatric) Essential hypertension, benign Mucopurulent chronic bronchitis (HCC) Mucopurulent chronic bronchitis Rib pain- Primary Chest pain, unspecified Cutaneous candidiasis Candidiasis of skin and nails Adjustment disorder with depressed mood Depression, recurrent Major depressive disorder, recurrent episode, unspecified Anxiety Anxiety state, unspecified Depression, recurrent Major depressive disorder, recurrent episode, unspecified [facility] Diagnosis Preoperative examination- Primary Preoperative examination, unspecified Stress incontinence Female stress incontinence TRINI (obstructive sleep apnea) Obstructive sleep apnea (adult) (pediatric) Mucopurulent chronic bronchitis (HCC) Mucopurulent chronic bronchitis Tobacco abuse Tobacco use disorder Shortness of breath Essential hypertension, benign Hyperlipidemia LDL goal <130 Other and unspecified hyperlipidemia GERD without esophagitis Esophageal reflux Hypothyroidism, unspecified type Adjustment disorder with depressed mood Spondylosis of lumbar region without myelopathy or radiculopathy Lumbosacral spondylosis without myelopathy Morbid obesity due to excess calories ([facility]) Pre-op evaluation- Primary Preoperative examination, unspecified BMI 45.0-49.9, adult ([facility]) Body Mass Index 45.0-49.9, adult Generalized anxiety disorder with panic attacks Hypothyroidism, unspecified type GERD without esophagitis Esophageal reflux TRINI (obstructive sleep apnea) Obstructive sleep apnea (adult) (pediatric) Essential hypertension, benign Mucopurulent chronic bronchitis (HCC) Mucopurulent chronic bronchitis Rib pain- Primary Chest pain, unspecified Cutaneous candidiasis Candidiasis of skin and nails Adjustment disorder with depressed mood Depression, recurrent Major depressive disorder, recurrent episode, unspecified Mucopurulent chronic bronchitis (HCC) Mucopurulent chronic bronchitis documented in this encounter [facility] note* Diagnosis Preoperative examination- Primary Preoperative examination, unspecified Stress incontinence Female stress incontinence TRINI (obstructive sleep apnea) Obstructive sleep apnea (adult) (pediatric) Mucopurulent chronic bronchitis (HCC) Mucopurulent chronic bronchitis Tobacco abuse Tobacco use disorder Shortness of breath Essential hypertension, benign Hyperlipidemia LDL goal <130 Other and unspecified hyperlipidemia GERD without esophagitis Esophageal reflux Hypothyroidism, unspecified type Adjustment disorder with depressed mood Spondylosis of lumbar region without myelopathy or radiculopathy Lumbosacral spondylosis without myelopathy Morbid obesity due to excess calories (HCC) Pre-op evaluation- Primary Preoperative examination, unspecified BMI 45.0-49.9, adult ([facility]) Body Mass Index 45.0-49.9, adult Generalized anxiety disorder with panic attacks Hypothyroidism, unspecified type GERD without esophagitis Esophageal reflux TRINI (obstructive sleep apnea) Obstructive sleep apnea (adult) (pediatric) Essential hypertension, benign Mucopurulent chronic bronchitis (HCC) Mucopurulent chronic bronchitis Rib pain- Primary Chest pain, unspecified Cutaneous candidiasis Candidiasis of skin and nails Adjustment disorder with depressed mood Depression, recurrent Major depressive disorder, recurrent episode, unspecified SOB (shortness of breath) Shortness of breath [facility] Diagnosis Preoperative examination- Primary Preoperative examination, unspecified Stress incontinence Female stress incontinence TRINI (obstructive sleep apnea) Obstructive sleep apnea (adult) (pediatric) Mucopurulent chronic bronchitis (HCC) Mucopurulent chronic bronchitis Tobacco abuse Tobacco use disorder Shortness of breath Essential hypertension, benign Hyperlipidemia LDL goal <130 Other and unspecified hyperlipidemia GERD without esophagitis Esophageal reflux Hypothyroidism, unspecified type Adjustment disorder with depressed mood Spondylosis of lumbar region without myelopathy or radiculopathy Lumbosacral spondylosis without myelopathy Morbid obesity due to excess calories (HCC) Pre-op evaluation- Primary Preoperative examination, unspecified BMI 45.0-49.9, adult ([facility]) Body Mass Index 45.0-49.9, adult Generalized anxiety disorder with panic attacks Hypothyroidism, unspecified type GERD without esophagitis Esophageal reflux TRINI (obstructive sleep apnea) Obstructive sleep apnea (adult) (pediatric) Essential hypertension, benign Mucopurulent chronic bronchitis (HCC) Mucopurulent chronic bronchitis Rib pain- Primary Chest pain, unspecified Cutaneous candidiasis Candidiasis of skin and nails Adjustment disorder with depressed mood Depression, recurrent Major depressive disorder, recurrent episode, unspecified Wheezing SOB (shortness of breath) Shortness of breath [facility] Diagnosis Preoperative examination- Primary Preoperative examination, unspecified Stress incontinence Female stress incontinence TRINI (obstructive sleep apnea) Obstructive sleep apnea (adult) (pediatric) Mucopurulent chronic bronchitis (HCC) Mucopurulent chronic bronchitis Tobacco abuse Tobacco use disorder Shortness of breath Essential hypertension, benign Hyperlipidemia LDL goal <130 Other and unspecified hyperlipidemia GERD without esophagitis Esophageal reflux Hypothyroidism, unspecified type Adjustment disorder with depressed mood Spondylosis of lumbar region without myelopathy or radiculopathy Lumbosacral spondylosis without myelopathy Morbid obesity due to excess calories (HCC) Pre-op evaluation- Primary Preoperative examination, unspecified BMI 45.0-49.9, adult (HCC) Body Mass Index 45.0-49.9, adult Generalized anxiety disorder with panic attacks Hypothyroidism, unspecified type GERD without esophagitis Esophageal reflux TRINI (obstructive sleep apnea) Obstructive sleep apnea (adult) (pediatric) Essential hypertension, benign Mucopurulent chronic bronchitis (HCC) Mucopurulent chronic bronchitis Rib pain- Primary Chest pain, unspecified Cutaneous candidiasis Candidiasis of skin and nails Adjustment disorder with depressed mood Depression, recurrent Major depressive disorder, recurrent episode, unspecified Hyperlipidemia LDL goal <130 Other and unspecified hyperlipidemia Anxiety Anxiety state, unspecified [facility] Diagnosis Preoperative examination- Primary Preoperative examination, unspecified Stress incontinence Female stress incontinence TRINI (obstructive sleep apnea) Obstructive sleep apnea (adult) (pediatric) Mucopurulent chronic bronchitis (HCC) Mucopurulent chronic bronchitis Tobacco abuse Tobacco use disorder Shortness of breath Essential hypertension, benign Hyperlipidemia LDL goal <130 Other and unspecified hyperlipidemia GERD without esophagitis Esophageal reflux Hypothyroidism, unspecified type Adjustment disorder with depressed mood Spondylosis of lumbar region without myelopathy or radiculopathy Lumbosacral spondylosis without myelopathy Morbid obesity due to excess calories (HCC) Pre-op evaluation- Primary Preoperative examination, unspecified BMI 45.0-49.9, adult (HCC) Body Mass Index 45.0-49.9, adult Generalized anxiety disorder with panic attacks Hypothyroidism, unspecified type GERD without esophagitis Esophageal reflux TRINI (obstructive sleep apnea) Obstructive sleep apnea (adult) (pediatric) Essential hypertension, benign Mucopurulent chronic bronchitis (HCC) Mucopurulent chronic bronchitis Rib pain- Primary Chest pain, unspecified Cutaneous candidiasis Candidiasis of skin and nails Adjustment disorder with depressed mood Depression, recurrent Major depressive disorder, recurrent episode, unspecified Anxiety Anxiety state, unspecified [facility] Diagnosis Preoperative examination- Primary Preoperative examination, unspecified Stress incontinence Female stress incontinence TRINI (obstructive sleep apnea) Obstructive sleep apnea (adult) (pediatric) Mucopurulent chronic bronchitis (HCC) Mucopurulent chronic bronchitis Tobacco abuse Tobacco use disorder Shortness of breath Essential hypertension, benign Hyperlipidemia LDL goal <130 Other and unspecified hyperlipidemia GERD without esophagitis Esophageal reflux Hypothyroidism, unspecified type Adjustment disorder with depressed mood Spondylosis of lumbar region without myelopathy or radiculopathy Lumbosacral spondylosis without myelopathy Morbid obesity due to excess calories (HCC) Pre-op evaluation- Primary Preoperative examination, unspecified BMI 45.0-49.9, adult (HCC) Body Mass Index 45.0-49.9, adult Generalized anxiety disorder with panic attacks Hypothyroidism, unspecified type GERD without esophagitis Esophageal reflux TRINI (obstructive sleep apnea) Obstructive sleep apnea (adult) (pediatric) Essential hypertension, benign Mucopurulent chronic bronchitis (HCC) Mucopurulent chronic bronchitis Rib pain- Primary Chest pain, unspecified Cutaneous candidiasis Candidiasis of skin and nails Adjustment disorder with depressed mood Depression, recurrent Major depressive disorder, recurrent episode, unspecified Hypothyroidism, acquired Unspecified hypothyroidism [facility] Diagnosis Preoperative examination- Primary Preoperative examination, unspecified Stress incontinence Female stress incontinence TRINI (obstructive sleep apnea) Obstructive sleep apnea (adult) (pediatric) Mucopurulent chronic bronchitis (HCC) Mucopurulent chronic bronchitis Tobacco abuse Tobacco use disorder Shortness of breath Essential hypertension, benign Hyperlipidemia LDL goal <130 Other and unspecified hyperlipidemia GERD without esophagitis Esophageal reflux Hypothyroidism, unspecified type Adjustment disorder with depressed mood Spondylosis of lumbar region without myelopathy or radiculopathy Lumbosacral spondylosis without myelopathy Morbid obesity due to excess calories (HCC) Pre-op evaluation- Primary Preoperative examination, unspecified BMI 45.0-49.9, adult (HCC) Body Mass Index 45.0-49.9, adult Generalized anxiety disorder with panic attacks Hypothyroidism, unspecified type GERD without esophagitis Esophageal reflux TRINI (obstructive sleep apnea) Obstructive sleep apnea (adult) (pediatric) Essential hypertension, benign Mucopurulent chronic bronchitis (HCC) Mucopurulent chronic bronchitis Rib pain- Primary Chest pain, unspecified Cutaneous candidiasis Candidiasis of skin and nails Adjustment disorder with depressed mood Depression, recurrent Major depressive disorder, recurrent episode, unspecified Hyperlipidemia LDL goal <130 Other and unspecified hyperlipidemia [facility] Diagnosis Preoperative examination- Primary Preoperative examination, unspecified Stress incontinence Female stress incontinence TRINI (obstructive sleep apnea) Obstructive sleep apnea (adult) (pediatric) Mucopurulent chronic bronchitis (HCC) Mucopurulent chronic bronchitis Tobacco abuse Tobacco use disorder Shortness of breath Essential hypertension, benign Hyperlipidemia LDL goal <130 Other and unspecified hyperlipidemia GERD without esophagitis Esophageal reflux Hypothyroidism, unspecified type Adjustment disorder with depressed mood Spondylosis of lumbar region without myelopathy or radiculopathy Lumbosacral spondylosis without myelopathy Morbid obesity due to excess calories (HCC) Pre-op evaluation- Primary Preoperative examination, unspecified BMI 45.0-49.9, adult (HCC) Body Mass Index 45.0-49.9, adult Generalized anxiety disorder with panic attacks Hypothyroidism, unspecified type GERD without esophagitis Esophageal reflux TRINI (obstructive sleep apnea) Obstructive sleep apnea (adult) (pediatric) Essential hypertension, benign Mucopurulent chronic bronchitis (HCC) Mucopurulent chronic bronchitis Rib pain- Primary Chest pain, unspecified Cutaneous candidiasis Candidiasis of skin and nails Adjustment disorder with depressed mood Depression, recurrent Major depressive disorder, recurrent episode, unspecified Depression, recurrent Major depressive disorder, recurrent episode, unspecified [facility] Diagnosis Preoperative examination- Primary Preoperative examination, unspecified Stress incontinence Female stress incontinence TRINI (obstructive sleep apnea) Obstructive sleep apnea (adult) (pediatric) Mucopurulent chronic bronchitis (HCC) Mucopurulent chronic bronchitis Tobacco abuse Tobacco use disorder Shortness of breath Essential hypertension, benign Hyperlipidemia LDL goal <130 Other and unspecified hyperlipidemia GERD without esophagitis Esophageal reflux Hypothyroidism, unspecified type Adjustment disorder with depressed mood Spondylosis of lumbar region without myelopathy or radiculopathy Lumbosacral spondylosis without myelopathy Morbid obesity due to excess calories (HCC) Pre-op evaluation- Primary Preoperative examination, unspecified BMI 45.0-49.9, adult (HCC) Body Mass Index 45.0-49.9, adult Generalized anxiety disorder with panic attacks Hypothyroidism, unspecified type GERD without esophagitis Esophageal reflux TRINI (obstructive sleep apnea) Obstructive sleep apnea (adult) (pediatric) Essential hypertension, benign Mucopurulent chronic bronchitis (HCC) Mucopurulent chronic bronchitis Rib pain- Primary Chest pain, unspecified Cutaneous candidiasis Candidiasis of skin and nails Adjustment disorder with depressed mood Depression, recurrent Major depressive disorder, recurrent episode, unspecified Essential hypertension, benign [facility] Diagnosis Preoperative examination- Primary Preoperative examination, unspecified Stress incontinence Female stress incontinence TRINI (obstructive sleep apnea) Obstructive sleep apnea (adult) (pediatric) Mucopurulent chronic bronchitis (HCC) Mucopurulent chronic bronchitis Tobacco abuse Tobacco use disorder Shortness of breath Essential hypertension, benign Hyperlipidemia LDL goal <130 Other and unspecified hyperlipidemia GERD without esophagitis Esophageal reflux Hypothyroidism, unspecified type Adjustment disorder with depressed mood Spondylosis of lumbar region without myelopathy or radiculopathy Lumbosacral spondylosis without myelopathy Morbid obesity due to excess calories (HCC) Pre-op evaluation- Primary Preoperative examination, unspecified BMI 45.0-49.9, adult ([facility]) Body Mass Index 45.0-49.9, adult Generalized anxiety disorder with panic attacks Hypothyroidism, unspecified type GERD without esophagitis Esophageal reflux TRINI (obstructive sleep apnea) Obstructive sleep apnea (adult) (pediatric) Essential hypertension, benign Mucopurulent chronic bronchitis (HCC) Mucopurulent chronic bronchitis Rib pain- Primary Chest pain, unspecified Cutaneous candidiasis Candidiasis of skin and nails Adjustment disorder with depressed mood Depression, recurrent Major depressive disorder, recurrent episode, unspecified Essential hypertension, benign [facility] Diagnosis Preoperative examination- Primary Preoperative examination, unspecified Stress incontinence Female stress incontinence TRINI (obstructive sleep apnea) Obstructive sleep apnea (adult) (pediatric) Mucopurulent chronic bronchitis (HCC) Mucopurulent chronic bronchitis Tobacco abuse Tobacco use disorder Shortness of breath Essential hypertension, benign Hyperlipidemia LDL goal <130 Other and unspecified hyperlipidemia GERD without esophagitis Esophageal reflux Hypothyroidism, unspecified type Adjustment disorder with depressed mood Spondylosis of lumbar region without myelopathy or radiculopathy Lumbosacral spondylosis without myelopathy Morbid obesity due to excess calories (HCC) Pre-op evaluation- Primary Preoperative examination, unspecified BMI 45.0-49.9, adult ([facility]) Body Mass Index 45.0-49.9, adult Generalized anxiety disorder with panic attacks Hypothyroidism, unspecified type GERD without esophagitis Esophageal reflux TRINI (obstructive sleep apnea) Obstructive sleep apnea (adult) (pediatric) Essential hypertension, benign Mucopurulent chronic bronchitis (HCC) Mucopurulent chronic bronchitis Rib pain- Primary Chest pain, unspecified Cutaneous candidiasis Candidiasis of skin and nails Adjustment disorder with depressed mood Depression, recurrent Major depressive disorder, recurrent episode, unspecified Mucopurulent chronic bronchitis (HCC) Mucopurulent chronic bronchitis [facility] Diagnosis Preoperative examination- Primary Preoperative examination, unspecified Stress incontinence Female stress incontinence TRINI (obstructive sleep apnea) Obstructive sleep apnea (adult) (pediatric) Mucopurulent chronic bronchitis (HCC) Mucopurulent chronic bronchitis Tobacco abuse Tobacco use disorder Shortness of breath Essential hypertension, benign Hyperlipidemia LDL goal <130 Other and unspecified hyperlipidemia GERD without esophagitis Esophageal reflux Hypothyroidism, unspecified type Adjustment disorder with depressed mood Spondylosis of lumbar region without myelopathy or radiculopathy Lumbosacral spondylosis without myelopathy Morbid obesity due to excess calories (HCC) Pre-op evaluation- Primary Preoperative examination, unspecified BMI 45.0-49.9, adult (HCC) Body Mass Index 45.0-49.9, adult Generalized anxiety disorder with panic attacks Hypothyroidism, unspecified type GERD without esophagitis Esophageal reflux TRINI (obstructive sleep apnea) Obstructive sleep apnea (adult) (pediatric) Essential hypertension, benign Mucopurulent chronic bronchitis (HCC) Mucopurulent chronic bronchitis Rib pain- Primary Chest pain, unspecified Cutaneous candidiasis Candidiasis of skin and nails Adjustment disorder with depressed mood Depression, recurrent Major depressive disorder, recurrent episode, unspecified Encounter for screening for lung cancer- Primary Former tobacco use Personal history of tobacco use, presenting hazards to health documented in this encounter [facility] note* Diagnosis Preoperative examination- Primary Preoperative examination, unspecified Stress incontinence Female stress incontinence TRINI (obstructive sleep apnea) Obstructive sleep apnea (adult) (pediatric) Mucopurulent chronic bronchitis (HCC) Mucopurulent chronic bronchitis Tobacco abuse Tobacco use disorder Shortness of breath Essential hypertension, benign Hyperlipidemia LDL goal <130 Other and unspecified hyperlipidemia GERD without esophagitis Esophageal reflux Hypothyroidism, unspecified type Adjustment disorder with depressed mood Spondylosis of lumbar region without myelopathy or radiculopathy Lumbosacral spondylosis without myelopathy Morbid obesity due to excess calories (HCC) Pre-op evaluation- Primary Preoperative examination, unspecified BMI 45.0-49.9, adult (HCC) Body Mass Index 45.0-49.9, adult Generalized anxiety disorder with panic attacks Hypothyroidism, unspecified type GERD without esophagitis Esophageal reflux TRINI (obstructive sleep apnea) Obstructive sleep apnea (adult) (pediatric) Essential hypertension, benign Mucopurulent chronic bronchitis (HCC) Mucopurulent chronic bronchitis Rib pain- Primary Chest pain, unspecified Cutaneous candidiasis Candidiasis of skin and nails Adjustment disorder with depressed mood Depression, recurrent Major depressive disorder, recurrent episode, unspecified Impaired gait and mobility- Primary documented in this encounter [facility] note* Diagnosis Preoperative examination- Primary Preoperative examination, unspecified Stress incontinence Female stress incontinence TRINI (obstructive sleep apnea) Obstructive sleep apnea (adult) (pediatric) Mucopurulent chronic bronchitis (HCC) Mucopurulent chronic bronchitis Tobacco abuse Tobacco use disorder Shortness of breath Essential hypertension, benign Hyperlipidemia LDL goal <130 Other and unspecified hyperlipidemia GERD without esophagitis Esophageal reflux Hypothyroidism, unspecified type Adjustment disorder with depressed mood Spondylosis of lumbar region without myelopathy or radiculopathy Lumbosacral spondylosis without myelopathy Morbid obesity due to excess calories (HCC) Pre-op evaluation- Primary Preoperative examination, unspecified BMI 45.0-49.9, adult (HCC) Body Mass Index 45.0-49.9, adult Generalized anxiety disorder with panic attacks Hypothyroidism, unspecified type GERD without esophagitis Esophageal reflux TRINI (obstructive sleep apnea) Obstructive sleep apnea (adult) (pediatric) Essential hypertension, benign Mucopurulent chronic bronchitis (HCC) Mucopurulent chronic bronchitis Rib pain- Primary Chest pain, unspecified Cutaneous candidiasis Candidiasis of skin and nails Adjustment disorder with depressed mood Depression, recurrent Major depressive disorder, recurrent episode, unspecified Impaired gait and mobility- Primary Mucopurulent chronic bronchitis (HCC) Mucopurulent chronic bronchitis Medication management Encounter for long-term (current) use of other medications Anxiety Anxiety state, unspecified Current moderate episode of major depressive disorder without prior episode (HCC) Class 3 severe obesity with body mass index (BMI) of 50.0 to 59.9 in adult, unspecified obesity type, unspecified whether serious comorbidity present (HCC) * Assessment & Plan Note - Deloris Chavez APRN.CNP - 02/07/2025 7:21 PM EDT Associated Problem(s): Morbid obesity due to excess calories (HCC) Stable based upon symptoms and exam. Continue current treatment plan and follow up at least yearly.Limited mobility and chronic bronchitis make it difficult to increase activity. documented in this encounter [facility] Discharge instructions No data available for this section [facility] Progress note No data available for this section [facility] Reason for referral (narrative)* Outpatient Procedure (Routine) - Authorized Specialty Diagnoses / Procedures Referred By Contac t Referred To Contact [facility] Diagnoses PMB (postmenopausal bleeding) Procedures ENDOMETRIAL BIOPSY ENDOMETRIAL BX W/WO ENDOCERVIX BX W/O DILAT SPX Dorothy Perales APRN.CONTENT MANAGEMENT CONSULTANT [address] [place] [address] [facility] [address] [place] [address] Referral ID Status Reason Start Date Expiration Date Visits Requested Visits Authorized [id number] Authorized Auto-Generat ed Referral 11/06/2021 11/06/2022 1 1 * Diagnostic Procedure Only (Routine) - Authorized Specialty Diagnoses / Procedures Referred By Contac t Referred To Contact [facility] Diagnoses PMB (postmenopausal bleeding) Procedures PELVIC US WHI US PELVIC NONOBSTETRIC REAL-TIME IMAGE COMPLETE Dorothy Perales APRN.CONTENT MANAGEMENT CONSULTANT [address] [place] [place] [address] [facility] [address] [place] [id number] Referral ID Status Reason Start Date Expiration Date Visits Requested Visits Authorized [id number] Authorized Auto-Generat ed Referral 11/06/2021 11/06/2022 1 1 [facility] for referral (narrative)* Diagnostic Procedure Only (Routine) - Pending Review Specialty Diagnoses / Procedures Referred By Contac t Referred To Contact [facility] Diagnoses Encounter for screening mammogram for breast cancer Procedures JENNIFFER SCREENING SCREENING MAMMOGRAPHY BI 2-VIEW BREAST INC Deloris Goodson APRN.CONTENT MANAGEMENT CONSULTANT [address] [place] [address] [facility] [address] [place] [address] Referral ID Status Reason Start Date Expiration Date Visits Requested Visits Authorized [id number] Pending Review Auto-Generat ed Referral 05/31/2023 1 1 [facility] for referral (narrative)* Outpatient Procedure (Routine) - Pending Review Specialty Diagnoses / Procedures Referred By Contac t Referred To [facility] Diagnoses Pre-op evaluation Procedures ECG COMPLETE ECG ROUTINE ECG W/LEAST 12 LDS W/I&R Cedrick Colvin APRN.CNP, DNP [address] [place] [address] [facility] [address] [place] [address] Referral ID Status Reason Start Date Expiration Date Visits Requested Visits Authorized [id number] Pending Review Auto-Generat ed Referral 08/27/2022 08/27/2023 1 1 [facility] for referral (narrative)* Diagnostic Procedure Only (Routine) - Closed Specialty Diagnoses / Procedures Referred By Contac t Referred To Contact [facility] Diagnoses Encounter for screening mammogram for breast cancer Procedures JENNIFFER SCREENING SCREENING MAMMOGRAPHY BI 2-VIEW BREAST INC CAD Deloris Chavez APRN.CNP [address] [place] [address] [facility] [address] [place] [address] Referral ID Status Reason Start Date Expiration Date V isits Requested Visits Authorized [id number] Closed Auto-Generate d Referral 05/01/2022 05/31/2023 1 1 [facility] for referral (narrative)* Diagnostic Procedure Only (Urgent) - Closed Specialty Diagnoses / Procedures Referred By Contac t Referred To Contact X[facility] Diagnoses Elbow swelling, right Procedures XR ELBOW SPECIAL VIEWS AP/LAT/OTHER RIGHT RADEX ELBOW COMPLETE MINIMUM 3 VIEWS Haley Seaman APRN.CNP [address] [place] [address] [place] [address] Referral ID Status Reason Start Date Expiration Date V isits Requested Visits Authorized [id number] Closed Auto-Generate d Referral 08/06/2023 09/04/2024 1 1 [facility] for referral (narrative)* Diagnostic Procedure Only (Routine) - Pending Review Specialty Diagnoses / Procedures Referred By Andreina guo Referred To Contact [facility] Diagnoses Encounter for screening mammogram for breast cancer Procedures JENNIFFER SCREENING SCREENING MAMMOGRAPHY BI 2-VIEW BREAST INC CAD Deloris Chavez APRN.CONTENT MANAGEMENT CONSULTANT [address] [place] [address] [facility] [address] [place] [address] Referral ID Status Reason Start Date Expiration Date Visits Requested Visits Authorized [id number] Pending Review Auto-Generat ed Referral 11/12/2023 12/11/2024 1 1 [facility] for referral (narrative)* Diagnostic Procedure Only (Urgent) - Closed Specialty Diagnoses / Procedures Referred By Andreina guo Referred To Contact XR IMAGING Diagnoses Elbow swelling, right Procedures XR ELBOW SPECIAL VIEWS AP/LAT/OTHER RIGHT RADEX ELBOW COMPLETE MINIMUM 3 VIEWS Haley Seaman APRN.CONTENT MANAGEMENT CONSULTANT [address] [place] [address] [place] [address] Referral ID Status Reason Start Date Expiration Date V isits Requested Visits Authorized [id number] Closed Auto-Generate d Referral 08/06/2023 09/04/[address] [facility] ([facility])No reason for referral information availableWSelect Medical [facility] [place] Work Phone: Reason for visit Narrative* Diagnostic Procedure Only (Routine) - Closed Specialty Diagnoses / Procedures Referred By Andreina guo Referred To Contact [facility] Diagnoses Palpitations Abnormal EKG Encounter for screening for cardiovascular disorders Procedures NM CARDIAC PERF STRESS/PHARM MYOCARDIAL SPECT MULTIPLE STUDIES Deloris Chavez APRN.CONTENT MANAGEMENT CONSULTANT [address] [place] [address] [facility] [address] [place] [address] Referral ID Status Reason Start Date Expiration Date V isits Requested Visits Authorized [id number] Closed Auto-Generate d Referral 03/05/2022 06/15/2022 1 1 [facility] for visit Narrative* Diagnostic Procedure Only (Routine) - Closed Specialty Diagnoses / Procedures Referred By Contac t Referred To Contact [facility] Diagnoses Encounter for screening mammogram for breast cancer Procedures JENNIFFER SCREENING SCREENING MAMMOGRAPHY BI 2-VIEW BREAST INC CAD [facility] GLASS MECHANIC.CONTENT MANAGEMENT CONSULTANT [address] [place] [address] [facility] [address] [place] [address] Referral ID Status Reason Start Date Expiration Date V isits Requested Visits Authorized [id number] Closed Auto-Generate d Referral 05/01/2022 05/31/2023 1 1 [facility] for visit Narrative* Diagnostic Procedure Only (Routine) - Closed Specialty Diagnoses / Procedures Referred By Contac t Referred To Contact [facility] Diagnoses Encounter for screening mammogram for breast cancer Procedures JENNIFFER SCREENING SCREENING MAMMOGRAPHY BI 2-VIEW BREAST INC CAD [facility] GLASS MECHANIC.CONTENT MANAGEMENT CONSULTANT [address] [place] [address] [facility] [address] [place] [address] Referral ID Status Reason Start Date Expiration Date V isits Requested Visits Authorized [id number] Closed Auto-Generate d Referral 11/12/2023 12/11/2024 1 1 [facility] for visit Narrative* Diagnostic Procedure Only (Urgent) - Closed Specialty Diagnoses / Procedures Referred By Contac t Referred To Contact XR IMAGING Diagnoses Elbow swelling, right Procedures XR ELBOW SPECIAL VIEWS AP/LAT/OTHER RIGHT RADEX ELBOW COMPLETE MINIMUM 3 VIEWS Haley Seaman, GLASS MECHANIC.CONTENT MANAGEMENT CONSULTANT [address] [place] [address] [place] [address] Referral ID Status Reason Start Date Expiration Date V isits Requested Visits Authorized [id number] Closed Auto-Generate d Referral 08/06/2023 09/04/[address] [facility] Summary Purpose Family History No Family History Records FoundNo Family History Records FoundNo Family History Records Found No data available for this section No data available for this section No data available for this section No data available for this section No data available for this section No data available for this section No Family History Records Found No data available for this section No Family History Records FoundNo Family History Records FoundNo Family History Records Found Advance Directives No Advanced Directives Records FoundDocuments on File 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 Advance Directive(s) 10/25/2020 7:33 AM Advance Directive(s) 10/04/2020 8:07 AM Advance Directive(s) 09/13/2020 8:14 AM Advance Directive(s) 08/24/2020 11:57 AM Advance Directive(s) 06/13/2020 5:57 AM Advance Directive(s) 01/15/2019 9:40 AM Advance Directive(s) 01/11/2019 11:31 AM Advance Directive(s) 12/18/2017 8:06 AM Advance Directive(s) 12/09/2017 10:35 AM Advance Directive(s) 03/27/2017 9:58 AM Advance Directive(s) 03/13/2017 10:02 AM Advance Directive(s) 06/14/2016 9:09 AM Advance Directive(s) 04/16/2016 9:16 AM Advance Directive(s) 03/18/2016 7:33 AM Documents on File 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 Advance Directive(s) 10/25/2020 7:33 AM Advance Directive(s) 10/04/2020 8:07 AM Advance Directive(s) 09/13/2020 8:14 AM Advance Directive(s) 08/24/2020 11:57 AM Advance Directive(s) 06/13/2020 5:57 AM Advance Directive(s) 01/15/2019 9:40 AM Advance Directive(s) 01/11/2019 11:31 AM Advance Directive(s) 12/18/2017 8:06 AM Advance Directive(s) 12/09/2017 10:35 AM Advance Directive(s) 03/27/2017 9:58 AM Advance Directive(s) 03/13/2017 10:02 AM Advance Directive(s) 06/14/2016 9:09 AM Advance Directive(s) 04/16/2016 9:16 AM Advance Directive(s) 03/18/2016 7:33 AM Advance Directive Response Recorded Date/ Time Living Will No June 26 9:29pm Power of Title Curator No June 26, 2021 9:29pm Advance Directive Response Recorded Date/ Time Living Will No September 20, 2024 1:51pm Do you have a Healthcare Power of Title Curator? No September 20, 2024 1:51pm Advance Directive Response Recorded Date/ Time Living Will No September 20, 2024 1:51pm Do you have a Healthcare Power of Title Curator? No September 20, 2024 1:51pm Do you have a Healthcare Power of Title Curator? No January 25, 2025 9:33am Advance Directive Response Recorded Date/ Time Do you have a Healthcare Power of Title Curator? No January 25, 2025 9:33am Health Concerns Infection Onset Date Last Indicated Resolved Time COVID-19 Rule-Out 09/25/2021 09/25/2021 Infection Onset Date Last Indicated Resolved Time COVID-19 Rule-Out 09/25/2021 09/25/2021 09/26/2021 5:41 AM EDT Reason for Referral Specialty Diagnoses / Procedures Referred By Contac t Referred To Contact Diagnoses GERD without esophagitis Deloris Chavez, GLASS MECHANIC.CONTENT MANAGEMENT CONSULTANT [address] [place] [address] Referral ID Status Reason Start Date Expiration Date Visits Re quested Visits Authorized [id number] Closed 1 1 Specialty Diagnoses / Procedures Referred By Contac t Referred To Contact CT IMAGING Diagnoses Non-recurrent abdominal hernia without obstruction or gangrene, unspecified hernia type Procedures CT ABD/PEL W IVCON CT ABD & PELVIS W/CONTRAST Murray Guadarrama MD [address] [address] [address] Referral ID Status Reason Start Date Expiration Date Visits Requested Visits Authorized [id number] Authorized Auto-Generat ed Referral 07/23/2022 08/22/2023 1 1 Specialty Diagnoses / Procedures Referred By Contac t Referred To Contact CT IMAGING Diagnoses Pneumonia of right middle lobe due to infectious organism Procedures CT CHEST WO IVCON DIAGNOSTIC COMPUTED TOMOGRAPHY THORAX W/O CNTRST Gareth Domingo, GLASS MECHANIC.CONTENT MANAGEMENT CONSULTANT [address] [place] [address] Ct Imaging [facility] Referral ID Status Reason Start Date Expiration Date Visits Requested Visits Authorized [id number] Authorized Auto-Generat ed Referral 3 05/07/2024 1 1 Referral ID Status Reason Start Date Expiration Date V isits Requested Visits Authorized [id number] Pending Review 1 1 Specialty Diagnoses / Procedures Referred By Contac t Referred To Contact CT IMAGING Diagnoses Non-recurrent abdominal hernia without obstruction or gangrene, unspecified hernia type Procedures CT ABD/PEL W IVCON CT ABD & PELVIS W/CONTRAST Murray Guadarrama MD [address] [address] [place] [address] Referral ID Status Reason Start Date Expiration Date V isits Requested Visits Authorized [id number] Closed Auto-Generate d Referral 07/23/2022 08/22/2023 1 1 Specialty Diagnoses / Procedures Referred By Contac t Referred To Contact Orthopedics Diagnoses Olecranon bursitis of right elbow Procedures CONSULT TO ORTHOPAEDICS OFFICE/OUTPATIENT [facility] 60 MINUTES Deloris Chavez, GLASS MECHANIC.CONTENT MANAGEMENT CONSULTANT [address] [place] [address] Referral ID Status Reason Start Date Expiration Date Visits Requested Visits Authorized [id number] Authorized PCP Requested Referral 09/01/2023 08/31/2024 1 1 Specialty Diagnoses / Procedures Referred By Contac t Referred To Contact CT IMAGING Diagnoses Former tobacco use Encounter for screening for lung cancer Procedures CT LUNG SCREEN WO IVCON COMPUTED TOMOGRAPHY THORAX LW DOSE LNG CA SCR Aminah- Gareth Domingo, GLASS MECHANIC.CONTENT MANAGEMENT CONSULTANT [address] [place] [address] [place] [address] Referral ID Status Reason Start Date Expiration Date Visits Requested Visits Authorized [id number] New Request Auto-Generat ed Referral 12/14/2024 02/20/2025 1 1 Specialty Diagnoses / Procedures Referred By Contac t Referred To Contact Diagnoses Class 3 severe obesity with body mass index (BMI) of 45.0 to 49.9 in adult, unspecified obesity type, unspecified whether serious comorbidity present (HCC) Procedures [facility] OFFICE/OUTPATIENT [facility] MDM 60 MINUTES Deloris Chavez APRN.CONTENT MANAGEMENT CONSULTANT [address] [place] [address] Referral ID Status Reason Start Date Expiration Date Visits Requested Visits Authorized [id number] Authorized PCP Requested Referral Auto-Generate d Referral 04/19/2024 04/19/2025 1 1 Specialty Diagnoses / Procedures Referred By Andreina t Referred To Contact Dermatology Diagnoses Skin lesion Procedures CONSULT TO DERMATOLOGY Deloris Chavez APRN.CONTENT MANAGEMENT CONSULTANT [address] [place] [address] Referral ID Status Reason Start Date Expiration Date Visits Requested Visits Authorized [id number] Ref Not Required PCP Requested Referral 04/19/2024 04/19/2025 1 1 Chief Complaint and Reason for Visit Chief Complaint NAUSEA Chief Complaint Admit Date HERNIA REPAIR September 01, 2024 8:5 3am ABD PAIN/ HERNIA September 03, 2024 10: 40am Reason for Visit Admit Date Hernia September 01, 2024 8:5 3am Chief Complaint Admit Date HERNIA REPAIR September 01, 2024 8:5 3am ABD PAIN/ HERNIA September 03, 2024 10: 40am REVIEW CT RESULTS September 17, 2024 1:12 pm PREOP September 21, 2024 10:0 9am Hernia, Ventral Repair w/ Mesh September 8:58am Hernia, Ventral Repair w/ Mesh September 11:00am Reason for Visit Admit Date Hernia September 01, 2024 8:5 3am Hernia September 17, 2024 1:12 pm Hernia October 04, 2024 8:5 8am Chief Complaint Admit Date Hernia, Ventral Repair w/ Mesh September 8:58am Hernia, Ventral Repair w/ Mesh September 11:00am VENTRAL HERNIA DOS 10/04October 18, 2024 9: 36am Block, Caudal January 31, 2025 8: 08am Reason for Visit Admit Date Hernia October 04, 2024 8:5 8am S/P repair of ventral hernia October 18 9:36am Chief Complaint Admit Date VENTRAL HERNIA DOS 10/04October 18, 2024 9: 36am Block, Caudal January 31, 2025 8: 08am WHEELCHAIR/RX HERE February 11, 2025 7: 55am Reason for Visit Admit Date S/P repair of ventral hernia October 18 9:36am Additional Source Comments INFORMATION SOURCE (unrecogn ized section and content) DATE CREATED AUTHOR 08/20/2019 [facility] DATE CREATED AUTHOR AUTHOR'S ORGANIZ ATION 07/08/2020 [facility] DATE CREATED AUTHOR AUTHOR'S ORGANIZ ATION 02/02/2023 [facility] DATE CREATED AUTHOR AUTHOR'S ORGANIZ ATION 09/05/2023 [facility] DATE CREATED AUTHOR AUTHOR'S ORGANIZ ATION 02/26/2024 [facility] DATE CREATED AUTHOR AUTHOR'S ORGANIZ ATION 02/13/2025 [facility] DATE CREATED AUTHOR AUTHOR'S ORGANIZ ATION 04/22/2025 [facility] Source Comments (unrecognize d section and content) In the event this informatio n is protected by the Federal Confidentiality of Alcohol and Drug Abuse Patient Records regulations: The Federal rules restrict any use of the information to criminally investigate or prosecute any alcohol or drug abuse patient.[facility] the event this information is protected by the Federal Confidentiality of Alcohol and Drug Abuse Patient Records regulations: The Federal rules restrict any use of the information to criminally investigate or prosecute any alcohol or drug abuse patient.[facility]In the event this information is protected by the Federal Confidentiality of Alcohol and Drug Abuse Patient Records regulations: The Federal rules restrict any use of the information to criminally investigate or prosecute any alcohol or drug abuse patient.[facility]In the event this information is protected by the Federal Confidentiality of Alcohol and Drug Abuse Patient Records regulations: The Federal rules restrict any use of the information to criminally investigate or prosecute any alcohol or drug abuse patient.[facility] [facility]In the event this information is protected by the Federal Confidentiality of Alcohol and Drug Abuse Patient Records regulations: The Federal rules restrict any use of the information to criminally investigate or prosecute any alcohol or drug abuse patient.[facility] [place] [facility]In the event this information is protected by the Federal Confidentiality of Alcohol and Drug Abuse Patient Records regulations: The Federal rules restrict any use of the information to criminally investigate or prosecute any alcohol or drug abuse patient.[facility] [place] [facility]In the event this information is protected by the Federal Confidentiality of Alcohol and Drug Abuse Patient Records regulations: The Federal rules restrict any use of the information to criminally investigate or prosecute any alcohol or drug abuse patient.[facility] [place] [facility]In the event this information is protected by the Federal Confidentiality of Alcohol and Drug Abuse Patient Records regulations: The Federal rules restrict any use of the information to criminally investigate or prosecute any alcohol or drug abuse patient.[facility] [place] CampusIn the event this information is protected by the Federal Confidentiality of Alcohol and Drug Abuse Patient Records regulations: The Federal rules restrict any use of the information to criminally investigate or prosecute any alcohol or drug abuse patient.[facility] [place] CampusIn the event this information is protected by the Federal Confidentiality of Alcohol and Drug Abuse Patient Records regulations: The Federal rules restrict any use of the information to criminally investigate or prosecute any alcohol or drug abuse patient.[facility] [place] CampusIn the event this information is protected by the Federal Confidentiality of Alcohol and Drug Abuse Patient Records regulations: The Federal rules restrict any use of the information to criminally investigate or prosecute any alcohol or drug abuse patient.[facility] [place] CampusIn the event this information is protected by the Federal Confidentiality of Alcohol and Drug Abuse Patient Records regulations: The Federal rules restrict any use of the information to criminally investigate or prosecute any alcohol or drug abuse patient.[facility] [place] CampusIn the event this information is protected by the Federal Confidentiality of Alcohol and Drug Abuse Patient Records regulations: The Federal rules restrict any use of the information to criminally investigate or prosecute any alcohol or drug abuse patient.[facility] [place] CampusIn the event this information is protected by the Federal Confidentiality of Alcohol and Drug Abuse Patient Records regulations: The Federal rules restrict any use of the information to criminally investigate or prosecute any alcohol or drug abuse patient.[facility] [place] CampusIn the event this information is protected by the Federal Confidentiality of Alcohol and Drug Abuse Patient Records regulations: The Federal rules restrict any use of the information to criminally investigate or prosecute any alcohol or drug abuse patient.[facility] [place] CampusIn the event this information is protected by the Federal Confidentiality of Alcohol and Drug Abuse Patient Records regulations: The Federal rules restrict any use of the information to criminally investigate or prosecute any alcohol or drug abuse patient.[facility] [place] CampusIn the event this information is protected by the Federal Confidentiality of Alcohol and Drug Abuse Patient Records regulations: The Federal rules restrict any use of the information to criminally investigate or prosecute any alcohol or drug abuse patient.[facility] [place] CampusIn the event this information is protected by the Federal Confidentiality of Alcohol and Drug Abuse Patient Records regulations: The Federal rules restrict any use of the information to criminally investigate or prosecute any alcohol or drug abuse patient.[facility] [place] CampusIn the event this information is protected by the Federal Confidentiality of Alcohol and Drug Abuse Patient Records regulations: The Federal rules restrict any use of the information to criminally investigate or prosecute any alcohol or drug abuse patient.[facility] [place] CampusIn the event this information is protected by the Federal Confidentiality of Alcohol and Drug Abuse Patient Records regulations: The Federal rules restrict any use of the information to criminally investigate or prosecute any alcohol or drug abuse patient.[facility] [place] CampusIn the event this information is protected by the Federal Confidentiality of Alcohol and Drug Abuse Patient Records regulations: The Federal rules restrict any use of the information to criminally investigate or prosecute any alcohol or drug abuse patient.[facility] [place] CampusIn the event this information is protected by the Federal Confidentiality of Alcohol and Drug Abuse Patient Records regulations: The Federal rules restrict any use of the information to criminally investigate or prosecute any alcohol or drug abuse patient.[facility] [place] CampusIn the event this information is protected by the Federal Confidentiality of Alcohol and Drug Abuse Patient Records regulations: The Federal rules restrict any use of the information to criminally investigate or prosecute any alcohol or drug abuse patient.[facility] [place] CampusIn the event this information is protected by the Federal Confidentiality of Alcohol and Drug Abuse Patient Records regulations: The Federal rules restrict any use of the information to criminally investigate or prosecute any alcohol or drug abuse patient.[facility] [place] CampusIn the event this information is protected by the Federal Confidentiality of Alcohol and Drug Abuse Patient Records regulations: The Federal rules restrict any use of the information to criminally investigate or prosecute any alcohol or drug abuse patient.[facility] [place] CampusIn the event this information is protected by the Federal Confidentiality of Alcohol and Drug Abuse Patient Records regulations: The Federal rules restrict any use of the information to criminally investigate or prosecute any alcohol or drug abuse patient.[facility] [place] CampusIn the event this information is protected by the Federal Confidentiality of Alcohol and Drug Abuse Patient Records regulations: The Federal rules restrict any use of the information to criminally investigate or prosecute any alcohol or drug abuse patient.[facility] [place] CampusIn the event this information is protected by the Federal Confidentiality of Alcohol and Drug Abuse Patient Records regulations: The Federal rules restrict any use of the information to criminally investigate or prosecute any alcohol or drug abuse patient.[facility] [place] CampusIn the event this information is protected by the Federal Confidentiality of Alcohol and Drug Abuse Patient Records regulations: The Federal rules restrict any use of the information to criminally investigate or prosecute any alcohol or drug abuse patient.[facility] [place] CampusIn the event this information is protected by the Federal Confidentiality of Alcohol and Drug Abuse Patient Records regulations: The Federal rules restrict any use of the information to criminally investigate or prosecute any alcohol or drug abuse patient.[facility] [place] CampusIn the event this information is protected by the Federal Confidentiality of Alcohol and Drug Abuse Patient Records regulations: The Federal rules restrict any use of the information to criminally investigate or prosecute any alcohol or drug abuse patient.[facility] [place] CampusIn the event this information is protected by the Federal Confidentiality of Alcohol and Drug Abuse Patient Records regulations: The Federal rules restrict any use of the information to criminally investigate or prosecute any alcohol or drug abuse patient.[facility] [place] CampusIn the event this information is protected by the Federal Confidentiality of Alcohol and Drug Abuse Patient Records regulations: The Federal rules restrict any use of the information to criminally investigate or prosecute any alcohol or drug abuse patient.[facility] [place] CampusIn the event this information is protected by the Federal Confidentiality of Alcohol and Drug Abuse Patient Records regulations: The Federal rules restrict any use of the information to criminally investigate or prosecute any alcohol or drug abuse patient.[facility] [place] CampusIn the event this information is protected by the Federal Confidentiality of Alcohol and Drug Abuse Patient Records regulations: The Federal rules restrict any use of the information to criminally investigate or prosecute any alcohol or drug abuse patient.[facility] [place] CampusIn the event this information is protected by the Federal Confidentiality of Alcohol and Drug Abuse Patient Records regulations: The Federal rules restrict any use of the information to criminally investigate or prosecute any alcohol or drug abuse patient.[facility] [place] CampusIn the event this information is protected by the Federal Confidentiality of Alcohol and Drug Abuse Patient Records regulations: The Federal rules restrict any use of the information to criminally investigate or prosecute any alcohol or drug abuse patient.[facility] [place] CampusIn the event this information is protected by the Federal Confidentiality of Alcohol and Drug Abuse Patient Records regulations: The Federal rules restrict any use of the information to criminally investigate or prosecute any alcohol or drug abuse patient.[facility] [place] CampusIn the event this information is protected by the Federal Confidentiality of Alcohol and Drug Abuse Patient Records regulations: The Federal rules restrict any use of the information to criminally investigate or prosecute any alcohol or drug abuse patient.[facility] [place] CampusIn the event this information is protected by the Federal Confidentiality of Alcohol and Drug Abuse Patient Records regulations: The Federal rules restrict any use of the information to criminally investigate or prosecute any alcohol or drug abuse patient.[facility] [place] CampusIn the event this information is protected by the Federal Confidentiality of Alcohol and Drug Abuse Patient Records regulations: The Federal rules restrict any use of the information to criminally investigate or prosecute any alcohol or drug abuse patient.[facility] [place] CampusIn the event this information is protected by the Federal Confidentiality of Alcohol and Drug Abuse Patient Records regulations: The Federal rules restrict any use of the information to criminally investigate or prosecute any alcohol or drug abuse patient.[facility] [place] CampusIn the event this information is protected by the Federal Confidentiality of Alcohol and Drug Abuse Patient Records regulations: The Federal rules restrict any use of the information to criminally investigate or prosecute any alcohol or drug abuse patient.[facility] [place] CampusIn the event this information is protected by the Federal Confidentiality of Alcohol and Drug Abuse Patient Records regulations: The Federal rules restrict any use of the information to criminally investigate or prosecute any alcohol or drug abuse patient.[facility] [place] CampusIn the event this information is protected by the Federal Confidentiality of Alcohol and Drug Abuse Patient Records regulations: The Federal rules restrict any use of the information to criminally investigate or prosecute any alcohol or drug abuse patient.[facility] the event this information is protected by the Federal Confidentiality of Alcohol and Drug Abuse Patient Records regulations: The Federal rules restrict any use of the information to criminally investigate or prosecute any alcohol or drug abuse patient.[facility] [place] CampusIn the event this information is protected by the Federal Confidentiality of Alcohol and Drug Abuse Patient Records regulations: The Federal rules restrict any use of the information to criminally investigate or prosecute any alcohol or drug abuse patient.[facility] [place] CampusIn the event this information is protected by the Federal Confidentiality of Alcohol and Drug Abuse Patient Records regulations: The Federal rules restrict any use of the information to criminally investigate or prosecute any alcohol or drug abuse patient.[facility] [place] CampusIn the event this information is protected by the Federal Confidentiality of Alcohol and Drug Abuse Patient Records regulations: The Federal rules restrict any use of the information to criminally investigate or prosecute any alcohol or drug abuse patient.[facility] [place] CampusIn the event this information is protected by the Federal Confidentiality of Alcohol and Drug Abuse Patient Records regulations: The Federal rules restrict any use of the information to criminally investigate or prosecute any alcohol or drug abuse patient.[facility] [place] CampusIn the event this information is protected by the Federal Confidentiality of Alcohol and Drug Abuse Patient Records regulations: The Federal rules restrict any use of the information to criminally investigate or prosecute any alcohol or drug abuse patient.[facility] [place] CampusIn the event this information is protected by the Federal Confidentiality of Alcohol and Drug Abuse Patient Records regulations: The Federal rules restrict any use of the information to criminally investigate or prosecute any alcohol or drug abuse patient.[facility] [place] CampusIn the event this information is protected by the Federal Confidentiality of Alcohol and Drug Abuse Patient Records regulations: The Federal rules restrict any use of the information to criminally investigate or prosecute any alcohol or drug abuse patient.[facility] [place] CampusIn the event this information is protected by the Federal Confidentiality of Alcohol and Drug Abuse Patient Records regulations: The Federal rules restrict any use of the information to criminally investigate or prosecute any alcohol or drug abuse patient.[facility] [place] CampusIn the event this information is protected by the Federal Confidentiality of Alcohol and Drug Abuse Patient Records regulations: The Federal rules restrict any use of the information to criminally investigate or prosecute any alcohol or drug abuse patient.[facility] [place] CampusIn the event this information is protected by the Federal Confidentiality of Alcohol and Drug Abuse Patient Records regulations: The Federal rules restrict any use of the information to criminally investigate or prosecute any alcohol or drug abuse patient.[facility] [place] CampusIn the event this information is protected by the Federal Confidentiality of Alcohol and Drug Abuse Patient Records regulations: The Federal rules restrict any use of the information to criminally investigate or prosecute any alcohol or drug abuse patient.[facility] [place] CampusIn the event this information is protected by the Federal Confidentiality of Alcohol and Drug Abuse Patient Records regulations: The Federal rules restrict any use of the information to criminally investigate or prosecute any alcohol or drug abuse patient.[facility] [place] CampusIn the event this information is protected by the Federal Confidentiality of Alcohol and Drug Abuse Patient Records regulations: The Federal rules restrict any use of the information to criminally investigate or prosecute any alcohol or drug abuse patient.[facility] [place] CampusIn the event this information is protected by the Federal Confidentiality of Alcohol and Drug Abuse Patient Records regulations: The Federal rules restrict any use of the information to criminally investigate or prosecute any alcohol or drug abuse patient.[facility] [place] CampusIn the event this information is protected by the Federal Confidentiality of Alcohol and Drug Abuse Patient Records regulations: The Federal rules restrict any use of the information to criminally investigate or prosecute any alcohol or drug abuse patient.[facility] [place] CampusIn the event this information is protected by the Federal Confidentiality of Alcohol and Drug Abuse Patient Records regulations: The Federal rules restrict any use of the information to criminally investigate or prosecute any alcohol or drug abuse patient.[facility] [place] CampusIn the event this information is protected by the Federal Confidentiality of Alcohol and Drug Abuse Patient Records regulations: The Federal rules restrict any use of the information to criminally investigate or prosecute any alcohol or drug abuse patient.[facility] [place] CampusIn the event this information is protected by the Federal Confidentiality of Alcohol and Drug Abuse Patient Records regulations: The Federal rules restrict any use of the information to criminally investigate or prosecute any alcohol or drug abuse patient.[facility] [place] CampusIn the event this information is protected by the Federal Confidentiality of Alcohol and Drug Abuse Patient Records regulations: The Federal rules restrict any use of the information to criminally investigate or prosecute any alcohol or drug abuse patient.[facility] [place] CampusIn the event this information is protected by the Federal Confidentiality of Alcohol and Drug Abuse Patient Records regulations: The Federal rules restrict any use of the information to criminally investigate or prosecute any alcohol or drug abuse patient.[facility] [place] CampusIn the event this information is protected by the Federal Confidentiality of Alcohol and Drug Abuse Patient Records regulations: The Federal rules restrict any use of the information to criminally investigate or prosecute any alcohol or drug abuse patient.[facility] [place] CampusIn the event this information is protected by the Federal Confidentiality of Alcohol and Drug Abuse Patient Records regulations: The Federal rules restrict any use of the information to criminally investigate or prosecute any alcohol or drug abuse patient.[facility] [place] CampusIn the event this information is protected by the Federal Confidentiality of Alcohol and Drug Abuse Patient Records regulations: The Federal rules restrict any use of the information to criminally investigate or prosecute any alcohol or drug abuse patient.[facility] [place] CampusIn the event this information is protected by the Federal Confidentiality of Alcohol and Drug Abuse Patient Records regulations: The Federal rules restrict any use of the information to criminally investigate or prosecute any alcohol or drug abuse patient.[facility] [place] CampusIn the event this information is protected by the Federal Confidentiality of Alcohol and Drug Abuse Patient Records regulations: The Federal rules restrict any use of the information to criminally investigate or prosecute any alcohol or drug abuse patient.[facility] [place] CampusIn the event this information is protected by the Federal Confidentiality of Alcohol and Drug Abuse Patient Records regulations: The Federal rules restrict any use of the information to criminally investigate or prosecute any alcohol or drug abuse patient.[facility] [place] CampusIn the event this information is protected by the Federal Confidentiality of Alcohol and Drug Abuse Patient Records regulations: The Federal rules restrict any use of the information to criminally investigate or prosecute any alcohol or drug abuse patient.[facility] [place] CampusIn the event this information is protected by the Federal Confidentiality of Alcohol and Drug Abuse Patient Records regulations: The Federal rules restrict any use of the information to criminally investigate or prosecute any alcohol or drug abuse patient.[facility] [place] CampusIn the event this information is protected by the Federal Confidentiality of Alcohol and Drug Abuse Patient Records regulations: The Federal rules restrict any use of the information to criminally investigate or prosecute any alcohol or drug abuse patient.[facility] [place] CampusIn the event this information is protected by the Federal Confidentiality of Alcohol and Drug Abuse Patient Records regulations: The Federal rules restrict any use of the information to criminally investigate or prosecute any alcohol or drug abuse patient.[facility] [place] [facility]In the event this information is protected by the Federal Confidentiality of Alcohol and Drug Abuse Patient Records regulations: The Federal rules restrict any use of the information to criminally investigate or prosecute any alcohol or drug abuse patient.[facility] [place]In the event this information is protected by the Federal Confidentiality of Alcohol and Drug Abuse Patient Records regulations: The Federal rules restrict any use of the information to criminally investigate or prosecute any alcohol or drug abuse patient.[facility] [place] CampusIn the event this information is protected by the Federal Confidentiality of Alcohol and Drug Abuse Patient Records regulations: The Federal rules restrict any use of the information to criminally investigate or prosecute any alcohol or drug abuse patient.[facility] [place] CampusIn the event this information is protected by the Federal Confidentiality of Alcohol and Drug Abuse Patient Records regulations: The Federal rules restrict any use of the information to criminally investigate or prosecute any alcohol or drug abuse patient.[facility] [place] CampusIn the event this information is protected by the Federal Confidentiality of Alcohol and Drug Abuse Patient Records regulations: The Federal rules restrict any use of the information to criminally investigate or prosecute any alcohol or drug abuse patient.[facility] [place] CampusIn the event this information is protected by the Federal Confidentiality of Alcohol and Drug Abuse Patient Records regulations: The Federal rules restrict any use of the information to criminally investigate or prosecute any alcohol or drug abuse patient.[facility] [place] CampusIn the event this information is protected by the Federal Confidentiality of Alcohol and Drug Abuse Patient Records regulations: The Federal rules restrict any use of the information to criminally investigate or prosecute any alcohol or drug abuse patient.[facility] [place] CampusIn the event this information is protected by the Federal Confidentiality of Alcohol and Drug Abuse Patient Records regulations: The Federal rules restrict any use of the information to criminally investigate or prosecute any alcohol or drug abuse patient.[facility] [place] CampusIn the event this information is protected by the Federal Confidentiality of Alcohol and Drug Abuse Patient Records regulations: The Federal rules restrict any use of the information to criminally investigate or prosecute any alcohol or drug abuse patient.[facility] [place] CampusIn the event this information is protected by the Federal Confidentiality of Alcohol and Drug Abuse Patient Records regulations: The Federal rules restrict any use of the information to criminally investigate or prosecute any alcohol or drug abuse patient.[facility] [place] CampusIn the event this information is protected by the Federal Confidentiality of Alcohol and Drug Abuse Patient Records regulations: The Federal rules restrict any use of the information to criminally investigate or prosecute any alcohol or drug abuse patient.[facility] [place] CampusIn the event this information is protected by the Federal Confidentiality of Alcohol and Drug Abuse Patient Records regulations: The Federal rules restrict any use of the information to criminally investigate or prosecute any alcohol or drug abuse patient.[facility] [place] CampusIn the event this information is protected by the Federal Confidentiality of Alcohol and Drug Abuse Patient Records regulations: The Federal rules restrict any use of the information to criminally investigate or prosecute any alcohol or drug abuse patient.[facility] [place] CampusIn the event this information is protected by the Federal Confidentiality of Alcohol and Drug Abuse Patient Records regulations: The Federal rules restrict any use of the information to criminally investigate or prosecute any alcohol or drug abuse patient.[facility] [place] CampusIn the event this information is protected by the Federal Confidentiality of Alcohol and Drug Abuse Patient Records regulations: The Federal rules restrict any use of the information to criminally investigate or prosecute any alcohol or drug abuse patient.[facility] [place] CampusIn the event this information is protected by the Federal Confidentiality of Alcohol and Drug Abuse Patient Records regulations: The Federal rules restrict any use of the information to criminally investigate or prosecute any alcohol or drug abuse patient.[facility] [place] CampusIn the event this information is protected by the Federal Confidentiality of Alcohol and Drug Abuse Patient Records regulations: The Federal rules restrict any use of the information to criminally investigate or prosecute any alcohol or drug abuse patient.[facility] [place] CampusIn the event this information is protected by the Federal Confidentiality of Alcohol and Drug Abuse Patient Records regulations: The Federal rules restrict any use of the information to criminally investigate or prosecute any alcohol or drug abuse patient.[facility] [place] CampusIn the event this information is protected by the Federal Confidentiality of Alcohol and Drug Abuse Patient Records regulations: The Federal rules restrict any use of the information to criminally investigate or prosecute any alcohol or drug abuse patient.[facility] the event this information is protected by the Federal Confidentiality of Alcohol and Drug Abuse Patient Records regulations: The Federal rules restrict any use of the information to criminally investigate or prosecute any alcohol or drug abuse patient.[facility] [place] CampusIn the event this information is protected by the Federal Confidentiality of Alcohol and Drug Abuse Patient Records regulations: The Federal rules restrict any use of the information to criminally investigate or prosecute any alcohol or drug abuse patient.[facility] [place] CampusIn the event this information is protected by the Federal Confidentiality of Alcohol and Drug Abuse Patient Records regulations: The Federal rules restrict any use of the information to criminally investigate or prosecute any alcohol or drug abuse patient.[facility] [place] CampusIn the event this information is protected by the Federal Confidentiality of Alcohol and Drug Abuse Patient Records regulations: The Federal rules restrict any use of the information to criminally investigate or prosecute any alcohol or drug abuse patient.[facility] [place] CampusIn the event this information is protected by the Federal Confidentiality of Alcohol and Drug Abuse Patient Records regulations: The Federal rules restrict any use of the information to criminally investigate or prosecute any alcohol or drug abuse patient.[facility] [place] CampusIn the event this information is protected by the Federal Confidentiality of Alcohol and Drug Abuse Patient Records regulations: The Federal rules restrict any use of the information to criminally investigate or prosecute any alcohol or drug abuse patient.[facility] [place] CampusIn the event this information is protected by the Federal Confidentiality of Alcohol and Drug Abuse Patient Records regulations: The Federal rules restrict any use of the information to criminally investigate or prosecute any alcohol or drug abuse patient.[facility] [place] CampusIn the event this information is protected by the Federal Confidentiality of Alcohol and Drug Abuse Patient Records regulations: The Federal rules restrict any use of the information to criminally investigate or prosecute any alcohol or drug abuse patient.[facility] [place] CampusIn the event this information is protected by the Federal Confidentiality of Alcohol and Drug Abuse Patient Records regulations: The Federal rules restrict any use of the information to criminally investigate or prosecute any alcohol or drug abuse patient.[facility] [place] CampusIn the event this information is protected by the Federal Confidentiality of Alcohol and Drug Abuse Patient Records regulations: The Federal rules restrict any use of the information to criminally investigate or prosecute any alcohol or drug abuse patient.[facility] [place] CampusIn the event this information is protected by the Federal Confidentiality of Alcohol and Drug Abuse Patient Records regulations: The Federal rules restrict any use of the information to criminally investigate or prosecute any alcohol or drug abuse patient.[facility] [place] CampusIn the event this information is protected by the Federal Confidentiality of Alcohol and Drug Abuse Patient Records regulations: The Federal rules restrict any use of the information to criminally investigate or prosecute any alcohol or drug abuse patient.[facility] [place] CampusIn the event this information is protected by the Federal Confidentiality of Alcohol and Drug Abuse Patient Records regulations: The Federal rules restrict any use of the information to criminally investigate or prosecute any alcohol or drug abuse patient.[facility] [place] CampusIn the event this information is protected by the Federal Confidentiality of Alcohol and Drug Abuse Patient Records regulations: The Federal rules restrict any use of the information to criminally investigate or prosecute any alcohol or drug abuse patient.[facility] [place] CampusIn the event this information is protected by the Federal Confidentiality of Alcohol and Drug Abuse Patient Records regulations: The Federal rules restrict any use of the information to criminally investigate or prosecute any alcohol or drug abuse patient.[facility] [place] CampusIn the event this information is protected by the Federal Confidentiality of Alcohol and Drug Abuse Patient Records regulations: The Federal rules restrict any use of the information to criminally investigate or prosecute any alcohol or drug abuse patient.[facility] [place] CampusIn the event this information is protected by the Federal Confidentiality of Alcohol and Drug Abuse Patient Records regulations: The Federal rules restrict any use of the information to criminally investigate or prosecute any alcohol or drug abuse patient.[facility] [place] CampusIn the event this information is protected by the Federal Confidentiality of Alcohol and Drug Abuse Patient Records regulations: The Federal rules restrict any use of the information to criminally investigate or prosecute any alcohol or drug abuse patient.[facility] [place] CampusIn the event this information is protected by the Federal Confidentiality of Alcohol and Drug Abuse Patient Records regulations: The Federal rules restrict any use of the information to criminally investigate or prosecute any alcohol or drug abuse patient.[facility] [place] CampusIn the event this information is protected by the Federal Confidentiality of Alcohol and Drug Abuse Patient Records regulations: The Federal rules restrict any use of the information to criminally investigate or prosecute any alcohol or drug abuse patient.[facility] [place] CampusIn the event this information is protected by the Federal Confidentiality of Alcohol and Drug Abuse Patient Records regulations: The Federal rules restrict any use of the information to criminally investigate or prosecute any alcohol or drug abuse patient.[facility] [place] CampusIn the event this information is protected by the Federal Confidentiality of Alcohol and Drug Abuse Patient Records regulations: The Federal rules restrict any use of the information to criminally investigate or prosecute any alcohol or drug abuse patient.[facility] [place] CampusIn the event this information is protected by the Federal Confidentiality of Alcohol and Drug Abuse Patient Records regulations: The Federal rules restrict any use of the information to criminally investigate or prosecute any alcohol or drug abuse patient.[facility] [place] CampusIn the event this information is protected by the Federal Confidentiality of Alcohol and Drug Abuse Patient Records regulations: The Federal rules restrict any use of the information to criminally investigate or prosecute any alcohol or drug abuse patient.[facility] [place] CampusIn the event this information is protected by the Federal Confidentiality of Alcohol and Drug Abuse Patient Records regulations: The Federal rules restrict any use of the information to criminally investigate or prosecute any alcohol or drug abuse patient.[facility] [place] CampusIn the event this information is protected by the Federal Confidentiality of Alcohol and Drug Abuse Patient Records regulations: The Federal rules restrict any use of the information to criminally investigate or prosecute any alcohol or drug abuse patient.[facility] [place] CampusIn the event this information is protected by the Federal Confidentiality of Alcohol and Drug Abuse Patient Records regulations: The Federal rules restrict any use of the information to criminally investigate or prosecute any alcohol or drug abuse patient.[facility] [place] CampusIn the event this information is protected by the Federal Confidentiality of Alcohol and Drug Abuse Patient Records regulations: The Federal rules restrict any use of the information to criminally investigate or prosecute any alcohol or drug abuse patient.[facility] [place] CampusIn the event this information is protected by the Federal Confidentiality of Alcohol and Drug Abuse Patient Records regulations: The Federal rules restrict any use of the information to criminally investigate or prosecute any alcohol or drug abuse patient.[facility] [place] CampusIn the event this information is protected by the Federal Confidentiality of Alcohol and Drug Abuse Patient Records regulations: The Federal rules restrict any use of the information to criminally investigate or prosecute any alcohol or drug abuse patient.[facility] [place] CampusIn the event this information is protected by the Federal Confidentiality of Alcohol and Drug Abuse Patient Records regulations: The Federal rules restrict any use of the information to criminally investigate or prosecute any alcohol or drug abuse patient.[facility] [place] CampusIn the event this information is protected by the Federal Confidentiality of Alcohol and Drug Abuse Patient Records regulations: The Federal rules restrict any use of the information to criminally investigate or prosecute any alcohol or drug abuse patient.[facility] [place] CampusIn the event this information is protected by the Federal Confidentiality of Alcohol and Drug Abuse Patient Records regulations: The Federal rules restrict any use of the information to criminally investigate or prosecute any alcohol or drug abuse patient.[facility] [place] CampusIn the event this information is protected by the Federal Confidentiality of Alcohol and Drug Abuse Patient Records regulations: The Federal rules restrict any use of the information to criminally investigate or prosecute any alcohol or drug abuse patient.[facility] [place] CampusIn the event this information is protected by the Federal Confidentiality of Alcohol and Drug Abuse Patient Records regulations: The Federal rules restrict any use of the information to criminally investigate or prosecute any alcohol or drug abuse patient.[facility] [place] CampusIn the event this information is protected by the Federal Confidentiality of Alcohol and Drug Abuse Patient Records regulations: The Federal rules restrict any use of the information to criminally investigate or prosecute any alcohol or drug abuse patient.[facility] [place] CampusIn the event this information is protected by the Federal Confidentiality of Alcohol and Drug Abuse Patient Records regulations: The Federal rules restrict any use of the information to criminally investigate or prosecute any alcohol or drug abuse patient.[facility] [place] CampusIn the event this information is protected by the Federal Confidentiality of Alcohol and Drug Abuse Patient Records regulations: The Federal rules restrict any use of the information to criminally investigate or prosecute any alcohol or drug abuse patient.[facility] [place] CampusIn the event this information is protected by the Federal Confidentiality of Alcohol and Drug Abuse Patient Records regulations: The Federal rules restrict any use of the information to criminally investigate or prosecute any alcohol or drug abuse patient.[facility] [place] CampusIn the event this information is protected by the Federal Confidentiality of Alcohol and Drug Abuse Patient Records regulations: The Federal rules restrict any use of the information to criminally investigate or prosecute any alcohol or drug abuse patient.[facility] [place] CampusIn the event this information is protected by the Federal Confidentiality of Alcohol and Drug Abuse Patient Records regulations: The Federal rules restrict any use of the information to criminally investigate or prosecute any alcohol or drug abuse patient.[facility] [place] CampusIn the event this information is protected by the Federal Confidentiality of Alcohol and Drug Abuse Patient Records regulations: The Federal rules restrict any use of the information to criminally investigate or prosecute any alcohol or drug abuse patient.[facility] [place] CampusIn the event this information is protected by the Federal Confidentiality of Alcohol and Drug Abuse Patient Records regulations: The Federal rules restrict any use of the information to criminally investigate or prosecute any alcohol or drug abuse patient.[facility] [place] CampusIn the event this information is protected by the Federal Confidentiality of Alcohol and Drug Abuse Patient Records regulations: The Federal rules restrict any use of the information to criminally investigate or prosecute any alcohol or drug abuse patient.[facility] [place] CampusIn the event this information is protected by the Federal Confidentiality of Alcohol and Drug Abuse Patient Records regulations: The Federal rules restrict any use of the information to criminally investigate or prosecute any alcohol or drug abuse patient.[facility] [place] CampusIn the event this information is protected by the Federal Confidentiality of Alcohol and Drug Abuse Patient Records regulations: The Federal rules restrict any use of the information to criminally investigate or prosecute any alcohol or drug abuse patient.[facility] [place] CampusIn the event this information is protected by the Federal Confidentiality of Alcohol and Drug Abuse Patient Records regulations: The Federal rules restrict any use of the information to criminally investigate or prosecute any alcohol or drug abuse patient.[facility] [place] CampusIn the event this information is protected by the Federal Confidentiality of Alcohol and Drug Abuse Patient Records regulations: The Federal rules restrict any use of the information to criminally investigate or prosecute any alcohol or drug abuse patient.[facility] [place] CampusIn the event this information is protected by the Federal Confidentiality of Alcohol and Drug Abuse Patient Records regulations: The Federal rules restrict any use of the information to criminally investigate or prosecute any alcohol or drug abuse patient.[facility] [place] CampusIn the event this information is protected by the Federal Confidentiality of Alcohol and Drug Abuse Patient Records regulations: The Federal rules restrict any use of the information to criminally investigate or prosecute any alcohol or drug abuse patient.[facility] the event this information is protected by the Federal Confidentiality of Alcohol and Drug Abuse Patient Records regulations: The Federal rules restrict any use of the information to criminally investigate or prosecute any alcohol or drug abuse patient.[facility] [place] CampusIn the event this information is protected by the Federal Confidentiality of Alcohol and Drug Abuse Patient Records regulations: The Federal rules restrict any use of the information to criminally investigate or prosecute any alcohol or drug abuse patient.[facility] [place] CampusIn the event this information is protected by the Federal Confidentiality of Alcohol and Drug Abuse Patient Records regulations: The Federal rules restrict any use of the information to criminally investigate or prosecute any alcohol or drug abuse patient.[facility] [place] CampusIn the event this information is protected by the Federal Confidentiality of Alcohol and Drug Abuse Patient Records regulations: The Federal rules restrict any use of the information to criminally investigate or prosecute any alcohol or drug abuse patient.[facility] [place] CampusIn the event this information is protected by the Federal Confidentiality of Alcohol and Drug Abuse Patient Records regulations: The Federal rules restrict any use of the information to criminally investigate or prosecute any alcohol or drug abuse patient.[facility] [place] CampusIn the event this information is protected by the Federal Confidentiality of Alcohol and Drug Abuse Patient Records regulations: The Federal rules restrict any use of the information to criminally investigate or prosecute any alcohol or drug abuse patient.[facility] [place] CampusIn the event this information is protected by the Federal Confidentiality of Alcohol and Drug Abuse Patient Records regulations: The Federal rules restrict any use of the information to criminally investigate or prosecute any alcohol or drug abuse patient.[facility] [place] CampusIn the event this information is protected by the Federal Confidentiality of Alcohol and Drug Abuse Patient Records regulations: The Federal rules restrict any use of the information to criminally investigate or prosecute any alcohol or drug abuse patient.[facility] [place] CampusIn the event this information is protected by the Federal Confidentiality of Alcohol and Drug Abuse Patient Records regulations: The Federal rules restrict any use of the information to criminally investigate or prosecute any alcohol or drug abuse patient.[facility] [place] CampusIn the event this information is protected by the Federal Confidentiality of Alcohol and Drug Abuse Patient Records regulations: The Federal rules restrict any use of the information to criminally investigate or prosecute any alcohol or drug abuse patient.[facility] [place] CampusIn the event this information is protected by the Federal Confidentiality of Alcohol and Drug Abuse Patient Records regulations: The Federal rules restrict any use of the information to criminally investigate or prosecute any alcohol or drug abuse patient.[facility] [place] CampusIn the event this information is protected by the Federal Confidentiality of Alcohol and Drug Abuse Patient Records regulations: The Federal rules restrict any use of the information to criminally investigate or prosecute any alcohol or drug abuse patient.[facility] CampusIn the event this information is protected by the Federal Confidentiality of Alcohol and Drug Abuse Patient Records regulations: The Federal rules restrict any use of the information to criminally investigate or prosecute any alcohol or drug abuse patient.[facility] CampusIn the event this information is protected by the Federal Confidentiality of Alcohol and Drug Abuse Patient Records regulations: The Federal rules restrict any use of the information to criminally investigate or prosecute any alcohol or drug abuse patient.[facility] CampusIn the event this information is protected by the Federal Confidentiality of Alcohol and Drug Abuse Patient Records regulations: The Federal rules restrict any use of the information to criminally investigate or prosecute any alcohol or drug abuse patient.[facility] CampusIn the event this information is protected by the Federal Confidentiality of Alcohol and Drug Abuse Patient Records regulations: The Federal rules restrict any use of the information to criminally investigate or prosecute any alcohol or drug abuse patient.[facility] [place] CampusIn the event this information is protected by the Federal Confidentiality of Alcohol and Drug Abuse Patient Records regulations: The Federal rules restrict any use of the information to criminally investigate or prosecute any alcohol or drug abuse patient.[facility] [place] CampusIn the event this information is protected by the Federal Confidentiality of Alcohol and Drug Abuse Patient Records regulations: The Federal rules restrict any use of the information to criminally investigate or prosecute any alcohol or drug abuse patient.[facility] [place] CampusIn the event this information is protected by the Federal Confidentiality of Alcohol and Drug Abuse Patient Records regulations: The Federal rules restrict any use of the information to criminally investigate or prosecute any alcohol or drug abuse patient.[facility] [place] CampusIn the event this information is protected by the Federal Confidentiality of Alcohol and Drug Abuse Patient Records regulations: The Federal rules restrict any use of the information to criminally investigate or prosecute any alcohol or drug abuse patient.[facility] [place] CampusIn the event this information is protected by the Federal Confidentiality of Alcohol and Drug Abuse Patient Records regulations: The Federal rules restrict any use of the information to criminally investigate or prosecute any alcohol or drug abuse patient.[facility] [place] CampusIn the event this information is protected by the Federal Confidentiality of Alcohol and Drug Abuse Patient Records regulations: The Federal rules restrict any use of the information to criminally investigate or prosecute any alcohol or drug abuse patient.[facility] [place] CampusIn the event this information is protected by the Federal Confidentiality of Alcohol and Drug Abuse Patient Records regulations: The Federal rules restrict any use of the information to criminally investigate or prosecute any alcohol or drug abuse patient.[facility] [place] CampusIn the event this information is protected by the Federal Confidentiality of Alcohol and Drug Abuse Patient Records regulations: The Federal rules restrict any use of the information to criminally investigate or prosecute any alcohol or drug abuse patient.[facility] [place] CampusIn the event this information is protected by the Federal Confidentiality of Alcohol and Drug Abuse Patient Records regulations: The Federal rules restrict any use of the information to criminally investigate or prosecute any alcohol or drug abuse patient.[facility] [place] CampusIn the event this information is protected by the Federal Confidentiality of Alcohol and Drug Abuse Patient Records regulations: The Federal rules restrict any use of the information to criminally investigate or prosecute any alcohol or drug abuse patient.[facility] [place] CampusIn the event this information is protected by the Federal Confidentiality of Alcohol and Drug Abuse Patient Records regulations: The Federal rules restrict any use of the information to criminally investigate or prosecute any alcohol or drug abuse patient.[facility] [place] CampusIn the event this information is protected by the Federal Confidentiality of Alcohol and Drug Abuse Patient Records regulations: The Federal rules restrict any use of the information to criminally investigate or prosecute any alcohol or drug abuse patient.[facility] [place] CampusIn the event this information is protected by the Federal Confidentiality of Alcohol and Drug Abuse Patient Records regulations: The Federal rules restrict any use of the information to criminally investigate or prosecute any alcohol or drug abuse patient.[facility] [place] CampusIn the event this information is protected by the Federal Confidentiality of Alcohol and Drug Abuse Patient Records regulations: The Federal rules restrict any use of the information to criminally investigate or prosecute any alcohol or drug abuse patient.[facility] [place] CampusIn the event this information is protected by the Federal Confidentiality of Alcohol and Drug Abuse Patient Records regulations: The Federal rules restrict any use of the information to criminally investigate or prosecute any alcohol or drug abuse patient.[facility] [place] CampusIn the event this information is protected by the Federal Confidentiality of Alcohol and Drug Abuse Patient Records regulations: The Federal rules restrict any use of the information to criminally investigate or prosecute any alcohol or drug abuse patient.[facility] [place] CampusIn the event this information is protected by the Federal Confidentiality of Alcohol and Drug Abuse Patient Records regulations: The Federal rules restrict any use of the information to criminally investigate or prosecute any alcohol or drug abuse patient.[facility] [place] CampusIn the event this information is protected by the Federal Confidentiality of Alcohol and Drug Abuse Patient Records regulations: The Federal rules restrict any use of the information to criminally investigate or prosecute any alcohol or drug abuse patient.[facility] [place] CampusIn the event this information is protected by the Federal Confidentiality of Alcohol and Drug Abuse Patient Records regulations: The Federal rules restrict any use of the information to criminally investigate or prosecute any alcohol or drug abuse patient.[facility] [place] CampusIn the event this information is protected by the Federal Confidentiality of Alcohol and Drug Abuse Patient Records regulations: The Federal rules restrict any use of the information to criminally investigate or prosecute any alcohol or drug abuse patient.[facility] [place] CampusIn the event this information is protected by the Federal Confidentiality of Alcohol and Drug Abuse Patient Records regulations: The Federal rules restrict any use of the information to criminally investigate or prosecute any alcohol or drug abuse patient.[facility] [place] CampusIn the event this information is protected by the Federal Confidentiality of Alcohol and Drug Abuse Patient Records regulations: The Federal rules restrict any use of the information to criminally investigate or prosecute any alcohol or drug abuse patient.[facility] [place] CampusIn the event this information is protected by the Federal Confidentiality of Alcohol and Drug Abuse Patient Records regulations: The Federal rules restrict any use of the information to criminally investigate or prosecute any alcohol or drug abuse patient.[facility] [place] CampusIn the event this information is protected by the Federal Confidentiality of Alcohol and Drug Abuse Patient Records regulations: The Federal rules restrict any use of the information to criminally investigate or prosecute any alcohol or drug abuse patient.[facility] [place] CampusIn the event this information is protected by the Federal Confidentiality of Alcohol and Drug Abuse Patient Records regulations: The Federal rules restrict any use of the information to criminally investigate or prosecute any alcohol or drug abuse patient.[facility] [place] CampusIn the event this information is protected by the Federal Confidentiality of Alcohol and Drug Abuse Patient Records regulations: The Federal rules restrict any use of the information to criminally investigate or prosecute any alcohol or drug abuse patient.[facility] [place] CampusIn the event this information is protected by the Federal Confidentiality of Alcohol and Drug Abuse Patient Records regulations: The Federal rules restrict any use of the information to criminally investigate or prosecute any alcohol or drug abuse patient.[facility] [place] CampusIn the event this information is protected by the Federal Confidentiality of Alcohol and Drug Abuse Patient Records regulations: The Federal rules restrict any use of the information to criminally investigate or prosecute any alcohol or drug abuse patient.[facility] [place] CampusIn the event this information is protected by the Federal Confidentiality of Alcohol and Drug Abuse Patient Records regulations: The Federal rules restrict any use of the information to criminally investigate or prosecute any alcohol or drug abuse patient.[facility] [place] CampusIn the event this information is protected by the Federal Confidentiality of Alcohol and Drug Abuse Patient Records regulations: The Federal rules restrict any use of the information to criminally investigate or prosecute any alcohol or drug abuse patient.[facility] [place] CampusIn the event this information is protected by the Federal Confidentiality of Alcohol and Drug Abuse Patient Records regulations: The Federal rules restrict any use of the information to criminally investigate or prosecute any alcohol or drug abuse patient.[facility] [place] [facility] Reason for Visit (unrecogniz ed section and content) Reason Comments Radiology CT Specialty Diagnoses / Procedures Referred By Andreina t Referred To Contact CT IMAGING Diagnoses Non-recurrent abdominal hernia without obstruction or gangrene, unspecified hernia type Procedures CT ABD/PEL W IVCON CT ABD & PELVIS W/CONTRAST Murray Guadarrama MD [address] [address] [place] [address] Referral ID Status Reason Start Date Expiration Date V isits Requested Visits Authorized [id number] Closed Auto-Generate d Referral 07/23/2022 08/22/2023 1 1 Reason Onset Date Comments Refill Request 09/07/2021 Reason Onset Date Comments Refill Request 09/16/2021 Reason Comments Chest Congestion Pt reported SOB, den ied chest pain x 4 days Reason Onset Date Comments Refill Request 09/27/2021 Reason Comments Est care and mammogram PA Reason Comments Results Reason Onset Date Comments Refill Request 10/17/2021 Reason Comments Follow Up Reason Comments Insurance Authorization [employer] Reason Onset Date Comments Refill Request 11/05/2021 Reason Comments Post Menopausal Bleeding 10/31/21 - Reason Comments Results New Medication Reason Onset Date Comments Refill Request 12/25/2021 Reason Onset Date Comments Refill Request 01/13/2022 Reason Comments Rash outer R thigh x 4 da ys, itchy Reason Onset Date Comments Refill Request 03/21/2022 Reason Comments Rash Rash on right elbow x 1 week Reason Comments UTI Symptoms started 3 d ays ago; urgency and frequency to urinate; no blood in urine; no abd/back pain Reason Comments URI Not feeling any bett er since last office visit, started with wheezing and shortness of breath Reason Onset Date Comments Refill Request 06/10/2022 Reason Comments Rash Back of L upper arm x2 days Reason Comments Results Chest Xray Reason Comments Acute Visit sinus and now into c hest Reason Onset Date Comments Refill Request 07/20/2022 Reason Comments Consult Gallbladder Reason Comments Follow Up Review CT scan Reason Onset Date Comments Refill Request 08/09/2022 Reason Onset Date Comments Refill Request 08/15/2022 Reason Onset Date Comments Refill Request 08/20/2022 Reason Comments Anesthesia Consult Preop instruction Reason Comments EKG Reason Comments Recheck Medication follow up ; shortness of breath when walking- feels like she has pneumonia Reason Comments Post Op Follow Up 09/05 ventral hernia repair; diagnostic laparoscopy w/ drain placement Reason Onset Date Comments Refill Request 09/11/2022 Reason Comments Post Op Follow Up 09/05 diagnostic lapa roscopy and ventral hernia repair Reason Onset Date Comments Refill Request 09/29/2022 Reason Onset Date Comments Refill Request 10/02/2022 Reason Comments form/missing signature Reason Onset Date Comments Refill Request 12/26/2022 Reason Onset Date Comments Refill Request 01/12/2023 Reason Comments Med Change Request Reason Onset Date Comments Refill Request 02/02/2023 Reason Onset Date Comments Refill Request 02/09/2023 Reason Comments Immunizations Reason Onset Date Comments Refill Request 03/04/2023 Reason Comments Hospital Follow Up Marissa Brennan dc'jaun 03/02/23 dx: pneumonia Reason Onset Date Comments Refill Request 04/03/2023 Reason Comments Recheck Follow up on chest x ray; saw Pulm today- she will have CT and follow up with Pulm Reason Comments screening for lung cancer Reason Onset Date Comments Refill Request 04/09/2023 Reason Comments FILM REQ-HARPSTER Reason Comments Cough Cough, congestion an d bilateral ear pain x 1 day Reason Onset Date Comments Refill Request 04/16/2023 Reason Comments Medication Problem Reason Onset Date Comments Refill Request 04/18/2023 Reason Onset Date Comments Refill Request 04/21/2023 Reason Comments Recheck Follow up URI- still congested Reason Onset Date Comments Refill Request 07/28/2023 Reason Comments Pain (Elbow Pain) right elbow pain x 2 days Reason Comments Acute Visit still naueated Reason Onset Date Comments Refill Request 08/16/2023 Reason Comments Hospital Follow Up [facility] dc'd 08/24/23 dx: chest pain Reason Onset Date Comments Refill Request 09/04/2023 Reason Onset Date Comments Refill Request 09/15/2023 Reason Onset Date Comments Refill Request 10/04/2023 Reason Onset Date Comments Refill Request 10/21/2023 Reason Onset Date Comments Refill Request 11/01/2023 Reason Comments Recheck Medication review Reason Onset Date Comments Refill Request 11/29/2023 Reason Onset Date Comments Refill Request 12/05/2023 Reason Comments Order Update Reason Onset Date Comments Refill Request 12/08/2023 Reason Comments Leg swelling Reason Comments Musculoskeletal Problem Swelling of MIMA lower legs. (Left worse) x4 days Reason Onset Date Comments Population Health Navigation Outreach 12/23/2023 [facility] Reason Comments Follow Up ER follow up Reason Onset Date Comments Refill Request 12/28/[address] Specialty Diagnoses / Procedures Referred By Andreina guo Referred To Contact CT IMAGING Diagnoses Lung nodules Procedures CT CHEST WO IVCON DIAGNOSTIC COMPUTED TOMOGRAPHY THORAX W/O CNTRST Gareth Domingo, GLASS MECHANIC.CONTENT MANAGEMENT CONSULTANT [address] [place] [address] [facility] [place] [address] Referral ID Status Reason Start Date Expiration Date V isits Requested Visits Authorized [id number] Closed Auto-Generate d Referral 05/27/2023 06/25/2024 1 1 Reason Comments Results Reason Comments Recheck Bilateral lower leg edema; not improving Reason Onset Date Comments Refill Request 01/30/2024 Reason Comments ER F/U Reason Comments Patient Update Reason Onset Date Comments Refill Request 02/27/2024 Reason Onset Date Comments Refill Request 03/14/2024 Reason Onset Date Comments Population Health Navigation Outreach 03/16/2024 [facility] Reason Onset Date Comments Refill Request 03/11/2024 Reason Comments Rash open areas on left a rm, itching and painful x 1 week Reason Comments Medicare Wellness Exam Reason Comments Derm Problem Bilateral arms itchi ng. Bactroban didn't make any difference. Feels warm burning sensation. Reason Comments Cough Cough and congestion x 5 days Reason Onset Date Comments Refill Request 06/04/2024 Reason Onset Date Comments Refill Request 06/05/2024 Reason Onset Date Comments Refill Request 07/14/2024 Reason Onset Date Comments Refill Request 08/13/2024 Reason Comments Cough Started 5 days ago, sore throat from coughing, coughing up yellow/green mucous, coughing so much that she's going to pass out, sinus congestion, some chest congestion, has taken mucinex and tessalon pearls, pt does smoke but claims to be trying to quit, does use a portable oxygen machine Reason Comments Medication Follow-up Reason Comments F/U 3 Month Reason Onset Date Comments Results 09/07/2024 Reason Comments Recheck Follow up on labs do ne yesterday Reason Onset Date Comments Refill Request 10/09/2024 Reason Onset Date Comments Refill Request 10/26/2024 Reason Onset Date Comments Refill Request 10/29/2024 Reason Onset Date Comments Refill Request 11/27/2024 Reason Onset Date Comments Refill Request 12/12/2024 Reason Onset Date Comments Refill Request 12/15/2024 Reason Comments pt information Reason Comments Orders Reason Comments Discussion Discuss mobility sco oter Reason Onset Date Comments Refill Request 02/08/2025 Reason Comments PT records Reason Comments Power wheel chair Care Teams (unrecognized sec tion and content) Financial Planning Assistant Relationship Specialty Start Date End Date Deloris Chavez APRN.CONTENT MANAGEMENT CONSULTANT [address] [place] [address] PCP - General Family Practice 12/05/20 Financial Planning Assistant Relationship Specialty Start Date End Date Deloris Chavez APRN.CONTENT MANAGEMENT CONSULTANT [address] [place], [place] [id number] PCP - General Family Practice 12/05/20 Financial Planning Assistant Relationship Specialty Start Date End Date Deloris Chavez APRN.CONTENT MANAGEMENT CONSULTANT [address] [place], [place] [id number] PCP - General Family Practice 12/05/20 Financial Planning Assistant Relationship Specialty Start Date End Date Deloris Chavez, GLASS MECHANIC.CONTENT MANAGEMENT CONSULTANT [address] [place] [address] PCP - General Family Practice 12/05/20 Financial Planning Assistant Relationship Specialty Start Date End Date Deloris Chavez, GLASS MECHANIC.CONTENT MANAGEMENT CONSULTANT [address] [place] [address] PCP - General Family Practice 12/05/20 Financial Planning Assistant Relationship Specialty Start Date End Date Deloris Chavez, GLASS MECHANIC.CONTENT MANAGEMENT CONSULTANT [address] [place] [address] PCP - General Family Practice 12/05/20 Financial Planning Assistant Relationship Specialty Start Date End Date Deloris Chavez, GLASS MECHANIC.CONTENT MANAGEMENT CONSULTANT [address] [place] [address] PCP - General Family Practice 12/05/20 Financial Planning Assistant Relationship Specialty Start Date End Date Timothy Oneal III, MD NO FORWARDING ADDRESS PCP - General 04/08/02 12/04/20 Deloris Chavez, GLASS MECHANIC.CONTENT MANAGEMENT CONSULTANT [address] [place] [address] PCP - General Family Practice 12/05/20 Financial Planning Assistant Relationship Specialty Start Date End Date Deloris Chavez, GLASS MECHANIC.CONTENT MANAGEMENT CONSULTANT [address] [place] [address] PCP - General Family Practice 12/05/20 Financial Planning Assistant Relationship Specialty Start Date End Date Deloris Chavez, GLASS MECHANIC.CONTENT MANAGEMENT CONSULTANT [address] [place] [address] PCP - General Family Practice 12/05/20 Financial Planning Assistant Relationship Specialty Start Date End Date Deloris Chavez, GLASS MECHANIC.CONTENT MANAGEMENT CONSULTANT [address] [place] [address] PCP - General Family Practice 12/05/20 Financial Planning Assistant Relationship Specialty Start Date End Date Deloris Chavez, GLASS MECHANIC.CONTENT MANAGEMENT CONSULTANT [address] [facility] [place] [address] PCP - General Family Practice 12/05/20 Financial Planning Assistant Relationship Specialty Start Date End Date Deloris Chavez, GLASS MECHANIC.CONTENT MANAGEMENT CONSULTANT [address] [facility] [place] [address] PCP - General Family Practice 12/05/20 Financial Planning Assistant Relationship Specialty Start Date End Date Deloris Chavez, GLASS MECHANIC.CONTENT MANAGEMENT CONSULTANT [address] [facility] [place] [address] PCP - General Family Practice 12/05/20 Financial Planning Assistant Relationship Specialty Start Date End Date Deloris Chavez, GLASS MECHANIC.CONTENT MANAGEMENT CONSULTANT [address] [facility] [place] [address] PCP - General Family Practice 12/05/20 Financial Planning Assistant Relationship Specialty Start Date End Date Deloris Chavez, GLASS MECHANIC.CONTENT MANAGEMENT CONSULTANT [address] [facility] [place] [address] PCP - General Family Practice 12/05/20 Financial Planning Assistant Relationship Specialty Start Date End Date Deloris Chavez, GLASS MECHANIC.CONTENT MANAGEMENT CONSULTANT [address] [facility] [place] [address] PCP - General Family Medicine 12/05/20 Financial Planning Assistant Relationship Specialty Start Date End Date Deloris Chavez, GLASS MECHANIC.CONTENT MANAGEMENT CONSULTANT [address] [facility] [place] [address] PCP - General Family Medicine 12/05/20 Financial Planning Assistant Relationship Specialty Start Date End Date Deloris Chavez, GLASS MECHANIC.CONTENT MANAGEMENT CONSULTANT [address] [facility] [place] [address] PCP - General Family Medicine 12/05/20 Financial Planning Assistant Relationship Specialty Start Date End Date Deloris Chavez, GLASS MECHANIC.CONTENT MANAGEMENT CONSULTANT [address] [facility] [place] [address] PCP - General Family Medicine 12/05/20 Financial Planning Assistant Relationship Specialty Start Date End Date Deloris Chavez, GLASS MECHANIC.CONTENT MANAGEMENT CONSULTANT [address] [place] [address] PCP - General Family Medicine 12/05/20 Financial Planning Assistant Relationship Specialty Start Date End Date Deloris Chavez, GLASS MECHANIC.CONTENT MANAGEMENT CONSULTANT [address] [facility] [place] [address] PCP - General Family Medicine 12/05/20 Financial Planning Assistant Relationship Specialty Start Date End Date Deloris Chavez, GLASS MECHANIC.CONTENT MANAGEMENT CONSULTANT [address] [place] [address] PCP - General Family Medicine 12/05/20 Financial Planning Assistant Relationship Specialty Start Date End Date Deloris Chavez, GLASS MECHANIC.CONTENT MANAGEMENT CONSULTANT [address] [facility] [place] [address] PCP - General Family Medicine 12/05/20 Financial Planning Assistant Relationship Specialty Start Date End Date Deloris Chavez, GLASS MECHANIC.CONTENT MANAGEMENT CONSULTANT [address] [facility] [place] [address] PCP - General Family Medicine 12/05/20 Financial Planning Assistant Relationship Specialty Start Date End Date Deloirs Chavez, GLASS MECHANIC.CONTENT MANAGEMENT CONSULTANT [address] [facility] [place] [address] PCP - General Family Medicine 12/05/20 Team Status: Active Member Role Status Dates Dr. Timothy Oneal III, MD Family Provider Active Deloris Chavez YOUTH CORRECTIONS OFFICER, YOUTH CORRECTIONS OFFICER-C Primary Care Provider Active Team Status: Inactive Member Role Status Dates Deloris Chavez YOUTH CORRECTIONS OFFICER, YOUTH CORRECTIONS OFFICER-C Primary Care Provider Active Dr. Rufino Figueroa MD Attending Provider, Referring Provider Active Financial Planning Assistant Relationship Specialty Start Date End Date Deloris Chavez, GLASS MECHANIC.CONTENT MANAGEMENT CONSULTANT [address] [place] [address] PCP - General Family Medicine 12/05/20 Financial Planning Assistant Relationship Specialty Start Date End Date Deloris Chavez, GLASS MECHANIC.CONTENT MANAGEMENT CONSULTANT [address] [place] [address] PCP - General Family Medicine 12/05/20 Financial Planning Assistant Relationship Specialty Start Date End Date Deloris Chavez, GLASS MECHANIC.CONTENT MANAGEMENT CONSULTANT [address] [place] [address] PCP - General Family Medicine 12/05/20 Financial Planning Assistant Relationship Specialty Start Date End Date Deloris Chavez, GLASS MECHANIC.CONTENT MANAGEMENT CONSULTANT [address] [place] [address] PCP - General Family Medicine 12/05/20 Financial Planning Assistant Relationship Specialty Start Date End Date Deloris Chavez, GLASS MECHANIC.CONTENT MANAGEMENT CONSULTANT [address] [place] [address] PCP - General Family Medicine 12/05/20 Financial Planning Assistant Relationship Specialty Start Date End Date Deloris Chavez, GLASS MECHANIC.CONTENT MANAGEMENT CONSULTANT [address] [place] [address] PCP - General Family Medicine 12/05/20 Financial Planning Assistant Relationship Specialty Start Date End Date Deloris Chavez, GLASS MECHANIC.CONTENT MANAGEMENT CONSULTANT [address] [place] [address] PCP - General Family Medicine 12/05/20 Financial Planning Assistant Relationship Specialty Start Date End Date Deloris Chavez, GLASS MECHANIC.CONTENT MANAGEMENT CONSULTANT [address] [place] [address] PCP - General Family Medicine 12/05/20 Financial Planning Assistant Relationship Specialty Start Date End Date Deloris Chavez, GLASS MECHANIC.CONTENT MANAGEMENT CONSULTANT [address] [place] [address] PCP - General Family Medicine 12/05/20 Financial Planning Assistant Relationship Specialty Start Date End Date Deloris Chavez, GLASS MECHANIC.CONTENT MANAGEMENT CONSULTANT [address] [facility] [place] [address] PCP - General Family Medicine 12/05/20 Financial Planning Assistant Relationship Specialty Start Date End Date Deloris Chavez, GLASS MECHANIC.CONTENT MANAGEMENT CONSULTANT [address] [facility] [place] [address] PCP - General Family Medicine 12/05/20 Financial Planning Assistant Relationship Specialty Start Date End Date Deloris Chavez, GLASS MECHANIC.CONTENT MANAGEMENT CONSULTANT [address] [facility] [place] [address] PCP - General Family Medicine 12/05/20 Financial Planning Assistant Relationship Specialty Start Date End Date Deloris Chavez, GLASS MECHANIC.CONTENT MANAGEMENT CONSULTANT [address] [facility] [place] [address] PCP - General Family Medicine 12/05/20 Financial Planning Assistant Relationship Specialty Start Date End Date Deloris Chavez, GLASS MECHANIC.CONTENT MANAGEMENT CONSULTANT [address] [facility] [place] [address] PCP - General Family Medicine 12/05/20 Financial Planning Assistant Relationship Specialty Start Date End Date Deloris Chavez, GLASS MECHANIC.CONTENT MANAGEMENT CONSULTANT [address] [facility] [place] [address] PCP - General Family Medicine 12/05/20 Financial Planning Assistant Relationship Specialty Start Date End Date Deloris Chavez, GLASS MECHANIC.CONTENT MANAGEMENT CONSULTANT [address] [facility] [place] [address] PCP - General Family Medicine 12/05/20 Financial Planning Assistant Relationship Specialty Start Date End Date Deloris Chavez, GLASS MECHANIC.CONTENT MANAGEMENT CONSULTANT [address] [facility] [place] [address] PCP - General Family Medicine 12/05/20 Financial Planning Assistant Relationship Specialty Start Date End Date Deloris Chavez, GLASS MECHANIC.CONTENT MANAGEMENT CONSULTANT [address] [facility] [place] [address] PCP - General Family Medicine 12/05/20 Financial Planning Assistant Relationship Specialty Start Date End Date Deloris Chavez, GLASS MECHANIC.CONTENT MANAGEMENT CONSULTANT [address] [facility] [place] [address] PCP - General Family Medicine 12/05/20 Financial Planning Assistant Relationship Specialty Start Date End Date Deloris Chavez, GLASS MECHANIC.CONTENT MANAGEMENT CONSULTANT [address] [facility] [place] [address] PCP - General Family Medicine 12/05/20 Financial Planning Assistant Relationship Specialty Start Date End Date Deloris Chavez, GLASS MECHANIC.CONTENT MANAGEMENT CONSULTANT [address] [facility] [place] [address] PCP - General Family Medicine 12/05/20 Financial Planning Assistant Relationship Specialty Start Date End Date Deloris Chavez, GLASS MECHANIC.CONTENT MANAGEMENT CONSULTANT [address] [facility] [place] [address] PCP - General Family Medicine 12/05/20 Financial Planning Assistant Relationship Specialty Start Date End Date Deloris Chavez, GLASS MECHANIC.CONTENT MANAGEMENT CONSULTANT [address] [facility] [place] [address] PCP - General Family Medicine 12/05/20 Financial Planning Assistant Relationship Specialty Start Date End Date Deloris Chavez, GLASS MECHANIC.CONTENT MANAGEMENT CONSULTANT [address] [facility] [place] [address] PCP - General Family Medicine 12/05/20 Financial Planning Assistant Relationship Specialty Start Date End Date Deloris Chavez, GLASS MECHANIC.CONTENT MANAGEMENT CONSULTANT [address] [facility] [place] [address] PCP - General Family Medicine 12/05/20 Financial Planning Assistant Relationship Specialty Start Date End Date Deloris Chavez, GLASS MECHANIC.CONTENT MANAGEMENT CONSULTANT [address] [facility] [place] [address] PCP - General Family Medicine 12/05/20 Financial Planning Assistant Relationship Specialty Start Date End Date Deloris Chavez, GLASS MECHANIC.CONTENT MANAGEMENT CONSULTANT [address] [facility] [place] [address] PCP - General Family Medicine 12/05/20 Financial Planning Assistant Relationship Specialty Start Date End Date Deloris Chavez, GLASS MECHANIC.CONTENT MANAGEMENT CONSULTANT [address] [facility] [place] [address] PCP - General Family Medicine 12/05/20 Financial Planning Assistant Relationship Specialty Start Date End Date Deloris Chavez, GLASS MECHANIC.CONTENT MANAGEMENT CONSULTANT [address] [facility] [place] [address] PCP - General Family Medicine 12/05/20 Financial Planning Assistant Relationship Specialty Start Date End Date Deloris Chavez, GLASS MECHANIC.CONTENT MANAGEMENT CONSULTANT [address] [facility] [place] [address] PCP - General Family Medicine 12/05/20 Financial Planning Assistant Relationship Specialty Start Date End Date Deloris Chavez, GLASS MECHANIC.CONTENT MANAGEMENT CONSULTANT [address] [facility] [place] [address] PCP - General Family Medicine 12/05/20 Financial Planning Assistant Relationship Specialty Start Date End Date Deloris Chavez, GLASS MECHANIC.CONTENT MANAGEMENT CONSULTANT [address] [place] [address] PCP - General Family Medicine 12/05/20 Bud Schultz MD [address] [place] [address] Pulmonary and Critical Care Medicine 05/30/23 Financial Planning Assistant Relationship Specialty Start Date End Date Deloris Chavez APRN.CONTENT MANAGEMENT CONSULTANT [address] [place] [address] PCP - General Family Medicine 12/05/20 Bud Schultz MD [address] [place] [address] Pulmonary and Critical Care Medicine 05/30/23 Financial Planning Assistant Relationship Specialty Start Date End Date Deloris Chavez APRN.CONTENT MANAGEMENT CONSULTANT [address] [place] [address] PCP - General Family Medicine 12/05/20 Bud Schultz MD [address] [place] [address] Pulmonary and Critical Care Medicine 05/30/23 Financial Planning Assistant Relationship Specialty Start Date End Date Deloris Chavez APRN.CONTENT MANAGEMENT CONSULTANT [address] [place] [address] PCP - General Family Medicine 12/05/20 Bud Schultz MD [address] [place] [address] Pulmonary and Critical Care Medicine 05/30/23 Financial Planning Assistant Relationship Specialty Start Date End Date Deloris Chavez APRN.CONTENT MANAGEMENT CONSULTANT [address] [place] [address] PCP - General Family Medicine 12/05/20 Bud Schultz MD [address] [place] [address] Pulmonary and Critical Care Medicine 05/30/23 Financial Planning Assistant Relationship Specialty Start Date End Date Deloris Chavez APRN.CONTENT MANAGEMENT CONSULTANT [address] [place] [address] PCP - General Family Medicine 12/05/20 Bud Schultz MD [address] [place] [address] Pulmonary and Critical Care Medicine 05/30/23 Financial Planning Assistant Relationship Specialty Start Date End Date Deloris Chavez APRN.CONTENT MANAGEMENT CONSULTANT [address] [place] [address] PCP - General Family Medicine 12/05/20 Bud Schultz MD [address] [place] [address] Pulmonary and Critical Care Medicine 05/30/23 Financial Planning Assistant Relationship Specialty Start Date End Date Deloris Chavez APRN.CONTENT MANAGEMENT CONSULTANT [address] [place] [address] PCP - General Family Medicine 12/05/20 Bud Schultz MD [address] [place] [address] Pulmonary and Critical Care Medicine 05/30/23 Financial Planning Assistant Relationship Specialty Start Date End Date Deloris Chavez APRN.CONTENT MANAGEMENT CONSULTANT [address] [place] [address] PCP - General Family Medicine 12/05/20 Bud Schultz MD [address] [place] [address] Pulmonary and Critical Care Medicine 05/30/23 Financial Planning Assistant Relationship Specialty Start Date End Date Deloris Chavez, GLASS MECHANIC.CONTENT MANAGEMENT CONSULTANT [address] [place] [address] PCP - General Family Medicine 12/05/20 Bud Schultz MD [address] [place] [address] Pulmonary and Critical Care Medicine 05/30/23 Financial Planning Assistant Relationship Specialty Start Date End Date Deolris Chavez, GLASS MECHANIC.CONTENT MANAGEMENT CONSULTANT [address] [place] [address] PCP - General Family Medicine 12/05/20 Bud Schultz MD [address] [place] [address] Pulmonary and Critical Care Medicine 05/30/23 Financial Planning Assistant Relationship Specialty Start Date End Date Deloris Chavez, GLASS MECHANIC.CONTENT MANAGEMENT CONSULTANT [address] [place] [address] PCP - General Family Medicine 12/05/20 Bud Schultz MD [address] [place] [address] Pulmonary and Critical Care Medicine 05/30/23 Financial Planning Assistant Relationship Specialty Start Date End Date Deloris Chavez, GLASS MECHANIC.CONTENT MANAGEMENT CONSULTANT [address] [place] [address] PCP - General Family Medicine 12/05/20 Bud Schultz MD [address] [place] [address] Pulmonary and Critical Care Medicine 05/30/23 Financial Planning Assistant Relationship Specialty Start Date End Date Deloris Chavez, GLASS MECHANIC.CONTENT MANAGEMENT CONSULTANT [address] [place] [address] PCP - General Family Medicine 12/05/20 Bud Schultz MD [address] [place] [address] Pulmonary and Critical Care Medicine 05/30/23 Financial Planning Assistant Relationship Specialty Start Date End Date Deloris Chavez, GLASS MECHANIC.CONTENT MANAGEMENT CONSULTANT [address] [place] [address] PCP - General Family Medicine 12/05/20 Bud Schultz MD [address] [place] [address] Pulmonary and Critical Care Medicine 05/30/23 Financial Planning Assistant Relationship Specialty Start Date End Date Deloris Chavez, GLASS MECHANIC.CONTENT MANAGEMENT CONSULTANT [address] [place] [address] PCP - General Family Medicine 12/05/20 Bud Schultz MD [address] [place] [address] Pulmonary and Critical Care Medicine 05/30/23 Financial Planning Assistant Relationship Specialty Start Date End Date Deloris Chavez, GLASS MECHANIC.CONTENT MANAGEMENT CONSULTANT [address] [place] [address] PCP - General Family Medicine 12/05/20 Bud Schultz MD [address] [place] [address] Pulmonary and Critical Care Medicine 05/30/23 Financial Planning Assistant Relationship Specialty Start Date End Date Deloris Chavez, GLASS MECHANIC.CONTENT MANAGEMENT CONSULTANT [address] [place] [address] PCP - General Family Medicine 12/05/20 Bud Schultz MD [address] [place] [address] Pulmonary and Critical Care Medicine 05/30/23 Financial Planning Assistant Relationship Specialty Start Date End Date Deloris Chavez, GLASS MECHANIC.CONTENT MANAGEMENT CONSULTANT [address] [facility] [place] [address] PCP - General Family Medicine 12/05/20 Bud Schultz MD [address] [place] [address] Pulmonary and Critical Care Medicine 05/30/23 Financial Planning Assistant Relationship Specialty Start Date End Date Deloris Chavez, GLASS MECHANIC.CONTENT MANAGEMENT CONSULTANT [address] [place] [address] PCP - General Family Medicine 12/05/20 Bud Schultz MD [address] [place] [address] Pulmonary and Critical Care Medicine 05/30/23 Financial Planning Assistant Relationship Specialty Start Date End Date Deloris Chavez, GLASS MECHANIC.CONTENT MANAGEMENT CONSULTANT [address] [place] [address] PCP - General Family Medicine 12/05/20 Bud Schultz MD [address] [place] [address] Pulmonary and Critical Care Medicine 05/30/23 Financial Planning Assistant Relationship Specialty Start Date End Date Deloris Chavez, GLASS MECHANIC.CONTENT MANAGEMENT CONSULTANT [address] [place] [address] PCP - General Family Medicine 12/05/20 Bud Schultz MD [address] [place] [address] Pulmonary and Critical Care Medicine 05/30/23 Financial Planning Assistant Relationship Specialty Start Date End Date Deloris Chavez, GLASS MECHANIC.CONTENT MANAGEMENT CONSULTANT [address] [place] [address] PCP - General Family Medicine 12/05/20 Bud Schultz MD [address] [place] [address] Pulmonary and Critical Care Medicine 05/30/23 Financial Planning Assistant Relationship Specialty Start Date End Date Deloris Chavez, GLASS MECHANIC.CONTENT MANAGEMENT CONSULTANT [address] [place] [address] PCP - General Family Medicine 12/05/20 Bud Schultz MD [address] [place] [address] Pulmonary and Critical Care Medicine 05/30/23 Financial Planning Assistant Relationship Specialty Start Date End Date Deloris Chavez APRN.CONTENT MANAGEMENT CONSULTANT [address] [facility] [place] [address] PCP - General Family Medicine 12/05/20 Bud Schultz MD [address] [place] [address] Pulmonary and Critical Care Medicine 05/30/23 Financial Planning Assistant Relationship Specialty Start Date End Date Deloris Chavez APRN.CONTENT MANAGEMENT CONSULTANT [address] [facility] [place] [address] PCP - General Family Medicine 12/05/20 Financial Planning Assistant Relationship Specialty Start Date End Date Deloris Chavez GLASS MECHANIC.CONTENT MANAGEMENT CONSULTANT [address] [facility] [place] [address] PCP - General Family Medicine 12/05/20 Financial Planning Assistant Relationship Specialty Start Date End Date Deloris Chavez, GLASS MECHANIC.CONTENT MANAGEMENT CONSULTANT [address] [facility] [place] [address] PCP - General Family Medicine 12/05/20 Financial Planning Assistant Relationship Specialty Start Date End Date Deloris Chavez, GLASS MECHANIC.CONTENT MANAGEMENT CONSULTANT [address] [facility] [place] [address] PCP - General Family Medicine 12/05/20 Bud Schultz MD [address] [place] [address] Pulmonary and Critical Care Medicine 05/30/23 Financial Planning Assistant Relationship Specialty Start Date End Date Deloris Chavez GLASS MECHANIC.CONTENT MANAGEMENT CONSULTANT [address] [facility] [place] [address] PCP - General Family Medicine 12/05/20 Financial Planning Assistant Relationship Specialty Start Date End Date Deloris Chavez APRN.CONTENT MANAGEMENT CONSULTANT [address] [place] [address] PCP - General Family Medicine 12/05/20 Financial Planning Assistant Relationship Specialty Start Date End Date Deloris Chavez APRN.CONTENT MANAGEMENT CONSULTANT [address] [place] [address] PCP - General Family Medicine 12/05/20 Bud Schultz MD [address] [place] [address] Pulmonary and Critical Care Medicine 05/30/23 Financial Planning Assistant Relationship Specialty Start Date End Date Deloris Chavez APRN.CONTENT MANAGEMENT CONSULTANT [address] [place] [address] PCP - General Family Medicine 12/05/20 Bud Schultz MD [address] [place] [address] Pulmonary and Critical Care Medicine 05/30/23 Financial Planning Assistant Relationship Specialty Start Date End Date Deloris Chavez APRN.CONTENT MANAGEMENT CONSULTANT [address] [place] [address] PCP - General Family Medicine 12/05/20 Bud Schultz MD [address] [place] [address] Pulmonary and Critical Care Medicine 05/30/23 Financial Planning Assistant Relationship Specialty Start Date End Date Deloris Chavez APRN.CONTENT MANAGEMENT CONSULTANT [address] [place] [address] PCP - General Family Medicine 12/05/20 Bud Schultz MD [address] [place] [address] Pulmonary and Critical Care Medicine 05/30/23 Financial Planning Assistant Relationship Specialty Start Date End Date Deloris Chavez APRN.CONTENT MANAGEMENT CONSULTANT [address] [place] [address] PCP - General Family Medicine 12/05/20 Bud Schultz MD [address] [place] [address] Pulmonary and Critical Care Medicine 05/30/23 Financial Planning Assistant Relationship Specialty Start Date End Date Deloris Chavez APRN.CONTENT MANAGEMENT CONSULTANT [address] [place] [address] PCP - General Family Medicine 12/05/20 Bud Schultz MD [address] [place] [address] Pulmonary and Critical Care Medicine 05/30/23 Financial Planning Assistant Relationship Specialty Start Date End Date Deloris Chavez APRN.CONTENT MANAGEMENT CONSULTANT [address] [place] [address] PCP - General Family Medicine 12/05/20 Bud Schultz MD [address] [place] [address] Pulmonary and Critical Care Medicine 05/30/23 Kathy Bustamante APRN.CONTENT MANAGEMENT CONSULTANT [address] [place] [address] Manuscripts Archivist [facility] 05/23/24 Curtis Ryan MD [address] [place] [address] Manuscripts [facility] 05/23/24 Financial Planning Assistant Relationship Specialty Start Date End Date Deloris Chavez APRN.CONTENT MANAGEMENT CONSULTANT [address] [place] [address] PCP - General Family Medicine 12/05/20 Bud Schultz MD [address] [place] [address] Pulmonary and Critical Care Medicine 05/30/23 Kathy Bustamante APRN.CONTENT MANAGEMENT CONSULTANT [address] [place] [address] Manuscripts [facility] 05/23/24 Curtis Ryan MD [address] [place] [address] Manuscripts [facility] 05/23/24 Financial Planning Assistant Relationship Specialty Start Date End Date Deloris Chavez APRN.CONTENT MANAGEMENT CONSULTANT [address] [place] [address] PCP - General Family Medicine 12/05/20 Bud Schultz MD [address] [place] [address] Pulmonary and Critical Care Medicine 05/30/23 Kathy Bustamante APRN.CONTENT MANAGEMENT CONSULTANT [address] [place] [address] Manuscripts Archivist Family [facility] 05/23/24 Curtis Ryan MD [address] [place] [address] Manuscripts Archivist [facility] 05/23/24 Financial Planning Assistant Relationship Specialty Start Date End Date Deloris Chavez APRN.CONTENT MANAGEMENT CONSULTANT [address] [place] [address] PCP - General Family Medicine 12/05/20 Bud Schultz MD [address] [place] [address] Pulmonary and Critical Care Medicine 05/30/23 Kathy Bustamante GLASS MECHANIC.CONTENT MANAGEMENT CONSULTANT [address] [place] [address] Manuscripts Archivist [facility] 05/23/24 Curtis Ryan MD [address] [place] [address] Manuscripts [facility] 05/23/24 Financial Planning Assistant Relationship Specialty Start Date End Date Deloris Chavez APRN.CONTENT MANAGEMENT CONSULTANT [address] [place] [address] PCP - General Family Medicine 12/05/20 Bud Schultz MD [address] [place] [address] Pulmonary and Critical Care Medicine 05/30/23 Kathy Bustamante GLASS MECHANIC.CONTENT MANAGEMENT CONSULTANT [address] [facility] [address] [facility] 05/23/24 Curtis Ryan MD [address] [facility] [place] [address] [facility] 05/23/24 Financial Planning Assistant Relationship Specialty Start Date End Date Deloris Chavez, GLASS MECHANIC.CONTENT MANAGEMENT CONSULTANT [address] [facility] [place] [address] PCP - General Family Medicine 12/05/20 Bud Schultz MD [address] [place] [address] Pulmonary and Critical Care Medicine 05/30/23 Kathy Bustamante GLASS MECHANIC.CONTENT MANAGEMENT CONSULTANT [address] [place] [address] [facility] 05/23/24 Curtis Ryan MD [address] [facility] [place] [address] [facility] 05/23/24 Financial Planning Assistant Relationship Specialty Start Date End Date Deloris Chavez, GLASS MECHANIC.CONTENT MANAGEMENT CONSULTANT [address] [facility] [place] [address] PCP - General Family Medicine 12/05/20 Bud Schultz MD [address] [place] [address] Pulmonary and Critical Care Medicine 05/30/23 Kathy Bustamante GLASS MECHANIC.CONTENT MANAGEMENT CONSULTANT [address] [facility] [place] [address] [facility] 05/23/24 Curtis Ryan MD [address] [facility] [address] Manuscripts [facility] 05/23/24 Financial Planning Assistant Relationship Specialty Start Date End Date Delrois Chavez APRN.CONTENT MANAGEMENT CONSULTANT [address] [place] [address] PCP - General Family Medicine 12/05/20 Bud Schultz MD [address] [place] [address] Pulmonary and Critical Care Medicine 05/30/23 Kathy Bustamante GLASS MECHANIC.CONTENT MANAGEMENT CONSULTANT [address] [facility] [address] Manuscripts [facility] 05/23/24 Curtis Ryan MD [address] [facility] [address] [facility] 05/23/24 Financial Planning Assistant Relationship Specialty Start Date End Date Deloris Chavez, GLASS MECHANIC.CONTENT MANAGEMENT CONSULTANT [address] [facility] [place] [address] PCP - General Family Medicine 12/05/20 Bud Schultz MD [address] [place] [address] Pulmonary and Critical Care Medicine 05/30/23 Kathy Bustamante GLASS MECHANIC.CONTENT MANAGEMENT CONSULTANT [address] [facility] [address] [facility] 05/23/24 Curtis Ryan MD [address] [facility] [place] [address] Manuscripts Archivist [facility] 05/23/24 Financial Planning Assistant Relationship Specialty Start Date End Date Deloris Chavez APRN.CONTENT MANAGEMENT CONSULTANT [address] [place] [address] PCP - General Family Medicine 12/05/20 Bud Schultz MD [address] [place] [address] Pulmonary and Critical Care Medicine 05/30/23 Kathy Bustamante APRN.CONTENT MANAGEMENT CONSULTANT [address] [place] [address] Manuscripts Archivist Family Medicine 05/23/24 Curtis Ryan MD [address] [place] [address] Manuscripts [facility] 05/23/24 Financial Planning Assistant Relationship Specialty Start Date End Date Deloris Chavez APRN.CONTENT MANAGEMENT CONSULTANT [address] [place] [address] PCP - General Family Medicine 12/05/20 Bud Schultz MD [address] [place] [address] Pulmonary and Critical Care Medicine 05/30/23 Kathy Bustamante GLASS MECHANIC.CONTENT MANAGEMENT CONSULTANT [address] [place] [address] Manuscripts Archivist Family Medicine 05/23/24 Curtis Ryan MD [address] [place] [address] Manuscripts [facility] 05/23/24 Financial Planning Assistant Relationship Specialty Start Date End Date Deloris Chavez APRN.CONTENT MANAGEMENT CONSULTANT [address] [place], [place] [id number] PCP - General Family Medicine 12/05/20 Bud Schultz MD [address] [place], [place] [id number] Pulmonary and Critical Care Medicine 05/30/23 Kathy Bustamante APRN.CONTENT MANAGEMENT CONSULTANT [address] [place], [place] [address] [facility] 05/23/24 09/06/24 Curtis Ryan MD [address] [place] [address] [facility] 05/23/24 09/06/24 Financial Planning Assistant Relationship Specialty Start Date End Date Deloris Chavez APRN.CONTENT MANAGEMENT CONSULTANT [address] [place] [address] PCP - General Family Medicine 12/05/20 Bud Schultz MD [address] [place] [address] Pulmonary and Critical Care Medicine 05/30/23 Team Status: Active Member Role Status Dates Deloris Chavez YOUTH CORRECTIONS OFFICER, YOUTH CORRECTIONS OFFICER-C Primary Care Provider Active Team Status: Inactive Member Role Status Dates Deloris Chavez YOUTH CORRECTIONS OFFICER, YOUTH CORRECTIONS OFFICER-C Primary Care Provider Active Start: June 21, 2024 End: June 21, 2024 Dr. Tito Felipe MD Attending Provider Active Start: June 21, 2024 End: June 21, 2024 Dr. Tito Felipe MD Referring Provider Active Start: June 21, 2024 End: June 21, 2024 Team Status: Inactive Member Role Status Dates Deloris Chavez NP, YOUTH CORRECTIONS OFFICER-C Primary Care Provider Active Start: August 30, 2024 End: August 30, 2024 Dr. Tito Felipe MD Attending Provider Active Start: August 30, 2024 End: August 30, 2024 Dr. Tito Felipe MD Referring Provider Active Start: August 30, 2024 End: August 30, 2024 Team Status: Inactive Member Role Status Dates eDloris Chavez YOUTH CORRECTIONS OFFICER, YOUTH CORRECTIONS OFFICER-C Primary Care Provider Active Start: September 01, 2024 End: September 01, 2024 Deloris Chavez YOUTH CORRECTIONS OFFICER, YOUTH CORRECTIONS OFFICER-C Referring Provider Active Start: September 01, 2024 End: September 01, 2024 Dr. Murray Guadarrama MD Attending Provider Active Start: September 01, 2024 End: September 01, 2024 Team Status: Inactive Member Role Status Dates Deloris Chavez NP, YOUTH CORRECTIONS OFFICER-C Primary Care Provider Active Start: September 03, 2024 End: September 03, 2024 Dr. Murray Guadarrama MD Attending Provider Active Start: September 03, 2024 End: September 03, 2024 Dr. Murray Guadarrama MD Referring Provider Active Start: September 03, 2024 End: September 03, 2024 Financial Planning Assistant Relationship Specialty Start Date End Date Deloris Chavez APRN.CNP [address] [place] [address] PCP - General Family Medicine 12/05/20 Bud Schultz MD [address] [place] [address] Pulmonary and Critical Care Medicine 05/30/23 Team Status: Inactive Member Role Status Dates Deloris Chavez YOUTH CORRECTIONS OFFICER, YOUTH CORRECTIONS OFFICER-C Primary Care Provider Active Start: September 17, 2024 End: September 17, 2024 Deloris Chavez YOUTH CORRECTIONS OFFICER, YOUTH CORRECTIONS OFFICER-C Referring Provider Active Start: September 17, 2024 End: September 17, 2024 Dr. Murray Guadarrama MD Attending Provider Active Start: September 17, 2024 End: September 17, 2024 Team Status: Active Member Role Status Dates Deloris Haagen YOUTH CORRECTIONS OFFICER, YOUTH CORRECTIONS OFFICER-C Primary Care Provider Active Start: September 21, 2024 End: September 21, 2024 Dr. Terrell Deal MD Attending Provider Active S tart: September 21, 2024 End: September 21, 2024 Dr. Murray Guadarrama MD Referring Provider Active Start: September 21, 2024 End: September 21, 2024 Team Status: Inactive Member Role Status Dates Deloris Chavez YOUTH CORRECTIONS OFFICER, YOUTH CORRECTIONS OFFICER-C Primary Care Provider Active Start: October 04, 2024 End: October 04, 2024 Dr. Murray Guadarrama MD Attending Provider Active Start: October 04, 2024 End: October 04, 2024 Dr. Murray Guadarrama MD Referring Provider Active Start: October 04, 2024 End: October 04, 2024 Team Status: Active Member Role Status Dates Deloris Chavez YOUTH CORRECTIONS OFFICER, YOUTH CORRECTIONS OFFICER-C Primary Care Provider Active Start: October 04, 2024 Dr. Murray Guadarrama MD Attending Provider Active Start: October 04, 2024 Dr. Murray Guadarrama MD Referring Provider Active Start: October 04, 2024 Dr. Murray Guadarrama MD Other Provider Active St art: October 04, 2024 Financial Planning Assistant Relationship Specialty Start Date End Date Deloris Chavez APRN.CONTENT MANAGEMENT CONSULTANT [address] [place], [place] [id number] PCP - General Family Medicine 12/05/20 Bud Schultz MD [address] [place] [address] Pulmonary and Critical Care Medicine 05/30/23 Financial Planning Assistant Relationship Specialty Start Date End Date Deloris Chavez APRN.CONTENT MANAGEMENT CONSULTANT [address] [place], [place] [address] PCP - General Family Medicine 12/05/20 Bud Schultz MD [address] [place] [address] Pulmonary and Critical Care Medicine 05/30/23 Financial Planning Assistant Relationship Specialty Start Date End Date Deloris Chavez, GLASS MECHANIC.CONTENT MANAGEMENT CONSULTANT [address] [place] [address] PCP - General Family Medicine 12/05/20 Bud Schultz MD [address] [address] Pulmonary and Critical Care Medicine 05/30/23 Financial Planning Assistant Relationship Specialty Start Date End Date Deloris Chavez, GLASS MECHANIC.CONTENT MANAGEMENT CONSULTANT [address] [place] [address] PCP - General Family Medicine 12/05/20 Bud Schultz MD [address] [place] [address] Pulmonary and Critical Care Medicine 05/30/23 Financial Planning Assistant Relationship Specialty Start Date End Date Deloris Chavez, GLASS MECHANIC.CONTENT MANAGEMENT CONSULTANT [address] [place] [address] PCP - General Family Medicine 12/05/20 Bud Schultz MD [address] [address] Pulmonary and Critical Care Medicine 05/30/23 Financial Planning Assistant Relationship Specialty Start Date End Date Deloris Chavez, GLASS MECHANIC.CONTENT MANAGEMENT CONSULTANT [address] [place] [address] PCP - General Family Medicine 12/05/20 Bud Schultz MD [address] [address] Pulmonary and Critical Care Medicine 05/30/23 Financial Planning Assistant Relationship Specialty Start Date End Date Deloris Chavez APRN.CONTENT MANAGEMENT CONSULTANT [address] [facility] [place] [address] PCP - General Family Medicine 12/05/20 Bud Schultz MD [address] [place] [address] Pulmonary and Critical Care Medicine 05/30/23 Financial Planning Assistant Relationship Specialty Start Date End Date Deloris Chavez APRN.CONTENT MANAGEMENT CONSULTANT [address] [facility] [place] [address] PCP - General Family Medicine 12/05/20 Bud Schultz MD [address] [facility] [place] [address] Pulmonary and Critical Care Medicine 05/30/23 Financial Planning Assistant Relationship Specialty Start Date End Date Deloris Chavez APRN.CONTENT MANAGEMENT CONSULTANT [address] [facility] [place] [address] PCP - General Family Medicine 12/05/20 Bud Schultz MD [address] [place] [address] Pulmonary and Critical Care Medicine 05/30/23 Financial Planning Assistant Relationship Specialty Start Date End Date Deloris Chavez APRN.CONTENT MANAGEMENT CONSULTANT [address] [facility] [place] [address] PCP - General Family Medicine 12/05/20 Bud Schultz MD [address] [place] [address] Pulmonary and Critical Care Medicine 05/30/23 Financial Planning Assistant Relationship Specialty Start Date End Date Deloris Chavez APRN.CONTENT MANAGEMENT CONSULTANT [address] [place] [address] PCP - General Family Medicine 12/05/20 Bud Schultz MD [address] [place] [address] Pulmonary and Critical Care Medicine 05/30/23 Financial Planning Assistant Relationship Specialty Start Date End Date Deloris Chavez APRN.CONTENT MANAGEMENT CONSULTANT [address] [place] [address] PCP - General Family Medicine 12/05/20 Bud Schultz MD [address] [facility] [place] [address] Pulmonary and Critical Care Medicine 05/30/23 Team Status: Active Member Role/Relationship Status Dates Deloris Chavez YOUTH CORRECTIONS OFFICER, YOUTH CORRECTIONS OFFICER-C Primary Care Provider Active Team Status: Inactive Member Role/Relationship Status Dates Deloris Chavez YOUTH CORRECTIONS OFFICER, YOUTH CORRECTIONS OFFICER-C Primary Care Provider Active Start: October 04, 2024 End: October 04, 2024 Dr. Murray Guadarrama MD Attending Provider Active Start: October 04, 2024 End: October 04, 2024 Dr. Murray Guadarrama MD Referring Provider Active Start: October 04, 2024 End: October 04, 2024 Team Status: Active Member Role/Relationship Status Dates Deloris Chavez YOUTH CORRECTIONS OFFICER, YOUTH CORRECTIONS OFFICER-C Primary Care Provider Active Start: October 04, 2024 Dr. Murray Guadarrama MD Attending Provider Active Start: October 04, 2024 Dr. Murray Guadarrama MD Referring Provider Active Start: October 04, 2024 Dr. Murray Guadarrama MD Other Provider Active St art: October 04, 2024 Team Status: Inactive Member Role/Relationship Status Dates Deloris Chavez YOUTH CORRECTIONS OFFICER, YOUTH CORRECTIONS OFFICER-C Primary Care Provider Active Start: October 18, 2024 End: October 18, 2024 Deloris Chavez YOUTH CORRECTIONS OFFICER, YOUTH CORRECTIONS OFFICER-C Referring Provider Active Start: October 18, 2024 End: October 18, 2024 Dr. Murray Guadarrama MD Attending Provider Active Start: October 18, 2024 End: October 18, 2024 Team Status: Inactive Member Role/Relationship Status Dates Deloris Chavez YOUTH CORRECTIONS OFFICER, YOUTH CORRECTIONS OFFICER-C Primary Care Provider Active Start: January 31, 2025 End: January 31, 2025 Dr. Tito Felipe MD Attending Provider Active Start: January 31, 2025 End: January 31, 2025 Dr. Tito Felipe MD Referring Provider Active Start: January 31, 2025 End: January 31, 2025 Financial Planning Assistant Relationship Specialty Start Date End Date Deloris Chavez APRN.CONTENT MANAGEMENT CONSULTANT [address] [place] [address] PCP - General Family Medicine 12/05/20 Bud Schultz MD [address] [place] [address] Pulmonary and Critical Care Medicine 05/30/23 Financial Planning Assistant Relationship Specialty Start Date End Date Deloris Chavez APRN.CONTENT MANAGEMENT CONSULTANT [address] [place] [address] PCP - General Family Medicine 12/05/20 Bud Schultz MD [address] [place] [address] Pulmonary and Critical Care Medicine 05/30/23 Financial Planning Assistant Relationship Specialty Start Date End Date Deloris Chavez APRN.CONTENT MANAGEMENT CONSULTANT [address] [place] [address] PCP - General Family Medicine 12/05/20 Bud Schultz MD [address] [place] [address] Pulmonary and Critical Care Medicine 05/30/23 Team Status: Inactive Member Role/Relationship Status Dates Deloris Chavez YOUTH CORRECTIONS OFFICER, YOUTH CORRECTIONS OFFICER-C Primary Care Provider Active Start: October 18, 2024 End: October 18, 2024 Deloris Chavez YOUTH CORRECTIONS OFFICER, YOUTH CORRECTIONS OFFICER-C Referring Provider Active Start: October 18, 2024 End: October 18, 2024 Dr. Murray Guadarrama MD Attending Provider Active Start: October 18, 2024 End: October 18, 2024 Team Status: Inactive Member Role/Relationship Status Dates Deloris Chavez YOUTH CORRECTIONS OFFICER, YOUTH CORRECTIONS OFFICER-C Primary Care Provider Active Start: January 31, 2025 End: January 31, 2025 Dr. Tito Felipe MD Attending Provider Active Start: January 31, 2025 End: January 31, 2025 Dr. Tito Felipe MD Referring Provider Active Start: January 31, 2025 End: January 31, 2025 Team Status: Inactive Member Role/Relationship Status Dates Deloris Chavez YOUTH CORRECTIONS OFFICER, YOUTH CORRECTIONS OFFICER-C Primary Care Provider Active Start: February 11, 2025 End: February 11, 2025 Deloris Chavez YOUTH CORRECTIONS OFFICER, YOUTH CORRECTIONS OFFICER-C Attending Provider Active Start: February 11, 2025 End: February 11, 2025 Deloris Chavez YOUTH CORRECTIONS OFFICER, YOUTH CORRECTIONS OFFICER-C Referring Provider Active Start: February 11, 2025 End: February 11, 2025 Financial Planning Assistant Relationship Specialty Start Date End Date Deloris Chavez APRN.CONTENT MANAGEMENT CONSULTANT [address] [place] [address] PCP - General Family Medicine 12/05/20 Bud Schultz MD [address] [place], [place] [address] Pulmonary and Critical Care Medicine 05/30/23 Financial Planning Assistant Relationship Specialty Start Date End Date Deloris Chavez APRN.CONTENT MANAGEMENT CONSULTANT [address] [place], [place] [address] PCP - General Family Medicine 12/05/20 Bud Schultz MD [address] [place] [address] Pulmonary and Critical Care Medicine 05/30/23 Care Team (unrecognized sect ion and content) Care Team Personnel Name: TIMOTHY ONEAL III, MD Member Role: Primary Care Physician Address: Address: [address] [place] [address]- Name: MATIAS ARRIAZA MD Position: ED Physician Member Role: ED Physician Address: Address: [address] [place] [id number]- Care Team Related Persons Name: NAVARRO GALLAGHER Name: NAVARRO GALLAGHER Name: NAVARRO GALLAGHER Name: NAVARRO GALLAGHER Name: NAVARRO GALLAGHER Goals (unrecognized section and content) Goals may be documented in a n alternate section FOR RECORDS PERTAINING TO PATIENTS WHO ARE OR HAVE BEEN ENROLLED IN A CHEMICAL DEPENDENCY/SUBSTANCEABUSE PROGRAM, SOME INFORMATION MAY BE OMITTED. This clinical summary was aggregated from multiple sources. Caution should be exercised in using it in the provision of clinical care. This summary normalizes information from multiple sources, and as a consequence, information in this document may materially change the coding, format and clinical context of patient data. In addition, data may be omitted in some cases. CLINICAL DECISIONS SHOULD BE BASED ON THE PRIMARY CLINICAL RECORDS. [facility]. provides no warranty or guarantee of the accuracy or completeness of information in this document.
[2025-05-30] MEDS: Lactated Ringers 1,000 ML 15 ML IV (06:23)
--- NOTE | 2025-05-30 06:27 | PRE.ANES_ITS ---
ASA Classification* ASA Classification ASA Classification: 3 Assessment & Plan Anesthesia* Anesthesia Assessment Anesthesia Assessment: Discussed sedation and/or anesthesia options, risks, benefits, and alternatives with patient/parents/legal guardian/POA. Questions invited. The patient/parents/legal guardian/POA seems to understand and agrees to proceed with anesthesia plan. Reviewed the physical assessment, medical history, allergy history and patient home medications list prior to surgery/procedure/anesthetic and documented any changes. Performed airway and anesthesia risk assessments. Anesthesia Type Anesthesia Type: MAC History Source History Obtained from:: Patient and Chart Anesthesia Focused Assessment* Temperature: 97.7 F Pulse Rate: 78 Blood Pressure: 130/79 Respiratory Rate: 16 Pulse Ox: 97 Oxygen Delivery Method: Nasal Cannula Oxygen Flow Rate (L/min): 2 Airway Assessment Mouth opens: 2 cm Mallampati Score: IV Teeth Condition: Dentures (Patient has full upper and lower dentures. They are out.) Neck Range of motion (ROM): Limited ROM (Severe Restriction) Labs Anesthesia Preop lab: CBC WBC, (4.4-11.0) 10.0 K/mm3 09/21/24, 10: RBC, (4.2-5.4) 4.92 M/mm3 09/21/24, 10:21 Hgb, (12.0-15.0) 15.4 g/dL H 09/21/24, 10: Hct, (37-47) 44.6 % 09/21/24, 10: Plt Count, (150-450) 247 K/mm3 09/21/24, 10:21 CHEMISTRY Potassium, (3.3-5.1) 4.3 mmol/L 09/21/24, 10:21 Sodium, (133-145) 138 mmol/L 09/21/24, 10:21 BUN, (4-19) 14 mg/dL 09/21/24, 10:21 Creatinine, (0.70-1.20) 0.78 mg/dL 09/21/24, 10:21 Glucose, (70-99) 121 mg/dL H 09/21/24, 10:21 TSH, (0.300-4.200) 1.440 uIU/mL 09/21/24, 10:21 COAG Pre-Assessment Diagnosis/Proposed Procedure Planned Operative Procedure(s): RIGHT LUMBAR RFA MEDIAL BRANCH L4-5 S1 UNDER FLUO Anesthesia History 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 When Was Last Pacemaker Check QUESTION #4 FULL TEXT: You/Your Family Experience fever (hyperthermia) with Anesthesia Last Oral Intake Last Oral intake: Last Oral Intake NPO since 23:00 05/30/25 06:19 Meds taken in AM with sips of water? Meds patient instructed to take am of surgery PONV PONV - wildlife biostation research ecologist: PONV - wildlife biostation research ecologist Female Yes 05/26/25 11:01 HX of Motion Sickness No 05/26/25 11:01 HX of N/V After Surgery No 05/26/25 11:01 Non-Smoker Yes 05/26/25 11:01 Duration of Surgery greater No 05/26/25 11:01 than 60 minutes Number of Risk Factors 2 05/26/25 11:01 PONV Score Moderate Risk 05/26/25 11:01 Height & Weight Height & Weight: Anesthesia: Height & Weight Height 5 ft 5 in 05/30/25 06:19 Weight: 145 kg 05/30/25 06:19 Body Mass Index (BMI) 53.1 05/30/25 06:19 Respiratory Assessment Respiratory Assessment - wildlife biostation research ecologist: Respiratory Tract Infection Hx - wildlife biostation research ecologist Hx Respiratory Tract Infection No 05/26/25 11:01 STOP Sleep Apnea STOP Sleep Apnea - wildlife biostation research ecologist: STOP Sleep Apnea - wildlife biostation research ecologist Hx Hypertension Yes: CONTROLLED WITH MEDS 05/26/25 11:01 Hx Sleep Apnea Yes 05/26/25 11:01 CPAP Yes: DOES NOT USE 05/26/25 11:01 BIPAP No 05/26/25 11:01 Do you snore loudly (louder than talking or can be heard Do you often feel tired/ fatigued/ sleepy during daytime? Has anyone observed you stop breathing during sleep? STOP Results Positive 05/26/25 11:01 QUESTION #5 FULL TEXT : Do you snore loudly (louder than talking or can be heard through closed doors)? Tobacco Use History Tobacco Use History - wildlife biostation research ecologist: Tobacco Use History - wildlife biostation research ecologist Tobacco Use Smoking Status Former smoker 05/26/25 11:01 Hx Tobacco Use Yes 05/26/25 11:01 Years Smoking Packs Smoked per Day Smoking Cessation Date was Yes - quit smoking within 15 05/26/25 11:01 within the last 15 years years Hx Smoking Cessation Date 10/13/24 05/26/25 11:01 Hx Smoking Cessation Counseling Hematologic Medial History Hematologic Hx - wildlife biostation research ecologist: Hematologic Medical Hx - surgeon chief Hx of Blood Transfusion No 05/26/25 11:01 Hx of Transfusion in last 3 No 05/26/25 11:01 Months Date of Last Transfusion (if within last 3 months) Ever experience any problems No 05/26/25 11:01 with transfusion(s)? Specify any problems Hx of Preganancy in last 3 No 05/26/25 11:01 Months Nurse Filling Out Transfusion DSCHRIBER 05/26/25 11:01 & Questions: Date: 05/26/25 05/26/25 11:01 Time: 11:03 05/26/25 11:01 Patient unable to answer at this time (ie. confused, unrespo /Reproduction History /Reproductive History - wildlife biostation research ecologist: /Reproductive Hx- wildlife biostation research ecologist Hx Now No 05/26/25 11:01 Gestational Age (in weeks): EDC: Hx Hx Para Hx Section SAB No 05/26/25 11:01 Does the father of the baby or his family experience fever w Father of the baby Malignant Hypertension history comment Active Medications Active Medications: Current Medications Generic Name Dose Route Start Last Admin Trade Name Freq PRN Reason Stop Dose Admin Lactated Ringer's 1,000 mls @ 15 mls/hr 05/30/25 06:15 05/30/25 06:23 IV 15 mls/hr .Q48H ZAIRE Administration PFSH Medical History Former smoker Post-menopausal Thyroid disease Walker as ambulation aid Injury of head and neck Blackout Difficulty swallowing History of hiatal hernia Asthma History of pain when walking History of edema On home oxygen therapy Pain Loss of hearing Wears hearing aid Wears dentures Wears glasses Restless legs Gastric reflux Hoarseness Chronic cough Shortness of breath on exertion History of stress test Anxiety Depression Hypothyroid Hypertension Back pain Home Medications ?Medication ?Instructions ?Recorded ?Last Taken ?Type alprazolam 1 mg tablet (Xanax) 1 mg PO DAILY PRN Anxie ty 09/22/15 Unknown History furosemide 20 mg tablet 20 mg PO DAILY 11/29/1708/14 History lansoprazole 15 mg capsule,delayed 15 mg PO DAILY 11/1408/29/24 History release albuterol sulfate 90 mcg/actuation 1 - 2 puff inhalati on Q4H PRN PRN 12/05/19 10/04/24 08:30 History aerosol inhaler Sob &/Or Wheezing amitriptyline 25 mg tablet 25 mg PO QHS 06/26/2108/29 History amlodipine 5 mg tablet 5 mg PO DAILY 06/26/2108/29 History cholecalciferol (vitamin D3) 125 125 mcg PO DAILY 06/1608/29/24 History mcg (5,000 unit) tablet ondansetron HCl 4 mg tablet 4 mg PO Q6H PRN Nausea 05/07 Unknown History albuterol sulfate 2.5 mg/3 mL 2.5 mg inhalation Q6H NV N 10/27/23 10/04/24 06:00 History (0.083 %) solution for nebulization shortness of breat h or wheezing venlafaxine 150 mg 150 mg PO QAM 09/01/24 Unkno wn History capsule,extended release 24 hr (Effexor XR) OXYGEN - Supplemental ([facility] 01/25/25 Unknown History INFORMATIONAL USE ONLY) atorvastatin 10 mg tablet 10 mg PO QHS cholesterol 06/09 Unknown History budesonide-formoterol HFA 160 2 puff inhalation BID Unknown History mcg-4.5 mcg/actuation aerosol inhaler (Symbicort) bupropion HCl 300 mg 24 hr tablet, 300 mg PO DAILY 06/09 Unknown History extended release gabapentin 100 mg capsule 100 mg PO BID 01/25/25 Unkno wn History hydrocodone-acetaminophen 5-325mg 1 tab PO Q8H PRN marian n 01/25/25 Unknown History 5mg-325mg levothyroxine 200 mcg tablet 200 mcg PO DAILY 01/25/25 05/30/25 History lisinopril 40 mg tablet 40 mg PO DAILY 01/25/25 Unkn own History loratadine 10 mg tablet 10 mg PO DAILY 01/25/25 Unkn own History Allergy/AdvReac Type Severity Reaction Status Date / Time amlodipine Allergy Intermediate Other Verified 05/30/25 06:18 doxycycline Allergy Intermediate Other Verified 05/30/25 06:18 meloxicam Allergy Intermediate Other Verified 05/30/25 06:18 Fish Containing Products Allergy Itching Verified 05/30/25 06:18 peanut Allergy Itching Verified 05/30/25 06:18 levofloxacin (From Levaquin) AdvReac Other Verified 05/30/25 06:18 Surgical History Hx of ventral hernia repair S/P repair of ventral hernia H/O hernia repair History of carpal tunnel surgery H/O tubal ligation History of placement of ear tubes Hx of breast reduction, elective Social History Smoking Status: Former smoker alcohol intake: never Review of Systems (Anesthesia) ROS Narrative System reviewed and no additional complaints, except as documented. Physical Exam Resp clear to auscultation bilaterally
--- NOTE | 2025-05-30 06:30 | RAD_ITS ---
EXAM: XR Lumbosacral Spine, 2 or 3 Views CLINICAL INDICATION: RADIO FREQUENCY ABLATION MEDIAL BRANCH TECHNIQUE: Frontal and lateral views of the lumbar spine and sacrum. COMPARISON: No relevant prior studies available. FINDINGS: 10 fluoroscopic images were obtained. Total fluoroscopy time 6.7 seconds. Total radiation dose 14.17 mGy. RAD/Lumbar Spine 2 or 3 Views IMPRESSION: Fluoroscopic guidance was used intraoperatively. Please refer to the operative note for further details. Reading Location: [facility]
[2025-05-30] MEDS: Lidocaine 1% (30 ml sdv) 30 ML Vial (07:40)
--- NOTE | 2025-05-30 07:59 | PCM.POST.ANE ---
Anesthesia: Postop Eval I Current Vital Signs Temperature: 97.4 F Pulse Rate: 82 Blood Pressure: 131/94 Respiratory Rate: 16 Pulse Ox: 97 Assessment Airway patent: Yes Spontaneous unlabored respirations: Yes nausea: No Vomiting: No Anesthesia Complication: No Fluid Hydration Crystalloid volume administer (ml): 600 Total IV fluid infused: 600 Progress Note Anesthesia document: Postop Eval 1 completed: Yes
--- NOTE | 2025-05-30 08:24 | OP.PCM_ITS ---
Operative Report (Standard) Operative Information Date of Procedure: 05/30/25 Pre-Operative Diagnosis: Lumbosacral spondylosis, lumbosacral degenerative disc disease, lumbar facet arthropathy Post-Operative Diagnosis: Lumbosacral spondylosis, lumbosacral degenerative disc disease, lumbar facet arthropathy Surgery/Procedure Performed: Right sided lumbar radiofrequency ablation of the medial branch at L4, L5, S1 utilization manager: No Type of Anesthesia: Local MAC RN Documented Start/Stop Times: Operation Date: 05/30/25 07:30 Case Time Into Pre-Op 05/30/25 06:03 Anesthesia Start 05/30/25 07:26 Into Room 05/30/25 07:26 Procedure Start 05/30/25 07:37 Procedure End 05/30/25 07:52 Anesthesia End 05/30/25 07:54 Out of Room 05/30/25 07:54 Into Recovery 05/30/25 07:57 Into Phase II Recovery 05/30/25 08:11 Out of Recovery 05/30/25 08:11 Procedure Start Time: 08:25 Procedure Stop Time: 08:25 Select all DRAINS/GRAFTS/IMPLANTS that apply: None Estimated Blood Loss: 1 Specimen collected: No Description of surgery: ANESTHESIA: MAC. BLOOD LOSS: Minimal. COMPLICATIONS: None. DESCRIPTION OF PROCEDURE: History and physical of today was reviewed. Risks and benefits of the procedure were explained. The patient understood and agreed to proceed. Informed consent was obtained. IV inserted per routine protocol. The patient was taken to the operating room and placed in the prone position with a pillow positioned underneath the abdomen. The right side of her lower back was prepped and draped in a sterile fashion using iodine x3. Under fluoroscopy guidance in an oblique view, the L3 through S1 vertebral bodies were visualized. The skin and subcutaneous tissue was anesthetized with approximately 10 mL of 1% lidocaine using a 25-gauge regular needle. Under direct visualization on fluoroscopy at approximately 25-degree angle, starting on the right L3, ending on the right S1, passing through the L4 and L5, using a 20-gauge 15-cm with a 10-mm curved active-tip radiofrequency ablation needle, the needle was passed through the skin. The tip of the needle was maneuvered and directed towards the superior medial gutter of the transverse process at the vicinity of the medial branch. Once the tip of the needle was in contact with the bone, the needle was pulled approximately 2 mm off the bone. The stylette of each needle was then removed. After negative aspiration of blood or CSF and confirmation on AP, oblique as well as lateral view, the radiofrequency ablation probe was then inserted at each level. Impedance was then recorded at L3 to be 302 ohm, at L4 to be 241 ohm, at L5 to be 242 ohm, and at S1 to be 356 ohm. Motor evoked potential was then initiated to 2 Hz and 1.5 volt without any motor response at each corresponding level. The probe was then removed intact and a total of 6 mL of preservative-free 1% lidocaine was injected in divided doses between those four levels after negative aspiration of blood or CSF. The radiofrequency ablation probe was then reinserted. After confirmation on AP, oblique as well as lateral view, radiofrequency ablation was then initiated to 80 degree Celsius for 90 second at each level. Once concluded, the probe was then removed intact. A total of 6 mL of preservative-free 0.25% Marcaine with 40 mg of Depo-Medrol was injected in divided doses between those four levels. The needles were then removed intact. The patient experienced no sign or symptoms of intrathecal or intravascular injection. The patient experienced no paresthesia. The procedure was completed without any apparent difficulty or any complications. The patient appeared to tolerate it well. Sensory as well as motor exam was unchanged from prior to the procedure. ASSESSMENT AND PLAN: This is a 64-year-old female with lumbosacral spondylosis, lumbosacral degenerative disc disease, lumbar facet arthropathy, status post right sided lumbar radiofrequency ablation of the medial branch at L4-S1, patient will continue her current medications, patient will follow-up in approximately 2 weeks for reevaluation. Surgical Findings: 0 Complications Complications: No Admit VTE Documentation VTE Present on Admission: No VTE Mechan Device Prophylaxis: None VTE Pharm Prophylaxis ordered?: No
--- NOTE | 2025-05-30 14:53 | POSTOPAN2_ITS ---
Anesthesia Postop Eval I Sum Postop Eval Completion status Anesthesia document: Postop Eval 1 completed: Yes Anesthesia Postop Eval I Summary Anesthesia Postop Eval I Summary: Anesthesia Postop Eval I: Assessment Summary Airway patent Yes 05/30/25 07:59 [email or web address] Spontaneous unlabored Yes 05/30/25 07:59 [email or web address] respirations Mental status nausea No 05/30/25 07:59 [email or web address] Vomiting No 05/30/25 07:59 [email or web address] Anesthesia Postop Eval I: Fluid Summary Crystalloid volume administer 600 05/30/25 07:59 [email or web address] (ml) Colloids volume administered ( ml) Blood Product volume administered (ml) Total IV fluid infused 600 05/30/25 07:59 [email or web address] Anesthesia Postop Eval I: Summary Notes Anesthesia Complication No 05/30/25 07:59 [email or web address] Anesthesia Complication Comment: Post-operative progress note Anesthesia: Postop Eval II Evaluation Mental status: Awake and Calm Pain Level: 0 nausea: No Vomiting: No Complications Anesthesia Complication: No
--- NOTE | 2025-05-30 14:53 | PCM.POSTANE2 ---
Anesthesia Postop Eval I Sum Postop Eval Completion status Anesthesia document: Postop Eval 1 completed: Yes Anesthesia Postop Eval I Summary Anesthesia Postop Eval I Summary: Anesthesia Postop Eval I: Assessment Summary Airway patent Yes 05/30/25 07:59 [email or web address] Spontaneous unlabored Yes 05/30/25 07:59 DIRECTOR [email or web address] respirations Mental status nausea No 05/30/25 07:59 DIRECTOR OF [email or web address] Vomiting No 05/30/25 07:59 DIRECTOR OF [email or web address] Anesthesia Postop Eval I: Fluid Summary Crystalloid volume administer 600 05/30/25 07:59 [email or web address] (ml) Colloids volume administered ( ml) Blood Product volume administered (ml) Total IV fluid infused 600 05/30/25 07:59 DIRECTOR OF [email or web address] Anesthesia Postop Eval I: Summary Notes Anesthesia Complication No 05/30/25 07:59 DIRECTOR OF [email or web address] Anesthesia Complication Comment: Post-operative progress note Anesthesia: Postop Eval II Evaluation Mental status: Awake and Calm Pain Level: 0 nausea: No Vomiting: No Complications Anesthesia Complication: No
== END 2025-05-30 08:32 | disposition home or self-care (01) ==
LOC: SDC 05:50 → AC 06:10
PROVIDERS: PCP Registered Nurse; Referring Provider Anesthesiology Pain Medicine; Visit Provider Anesthesiology Pain Medicine
PROC: (CPT 64635; principal; 2025-05-30 07:25)
DX: M47.816 Spondylosis without myelopathy or radiculopathy, lumbar region (principal); M51.379 Other intervertebral disc degeneration, lumbosacral region without mention of lumbar back pain or lower extremity pain; M47.817 Spondylosis without myelopathy or radiculopathy, lumbosacral region
CPT/HCPCS: 64635; 64636; 01992; 72100; 76000